=== PATIENT | male | born 1935 | race Caucasian/White ===

== ENCOUNTER 2023-05-02 12:46 | Outpatient (OUT) | payer MEDICARE, OTHER, SELFPAY ==
--- NOTE | 2023-05-02 13:10 | CA_ITS ---
Patient: REINA JOE Exam Date: 05/02/2023 : 1935 Gender:M Ordering : [facility] Admission #: [id number] Family : DR NIRU FRANCIS D.John Order #: [id number] CLICK HERE TO VIEW EXAM ECHOCARDIOGRAM REPORT PROCEDURE: CA ECHO DOPPLER COMPLETE INDICATIONS: nonrheumatic MITRAL VALVE REGURGITATION COMPARISON: None. DESCRIPTION: COMPLETE ECHOCARDIOGRAM Real-time transthoracic echocardiography with 2D, M-mode, spectral and color flow Doppler performed. QUALITY: Technical quality was good. LEFT VENTRICLE: Moderate dilatation. Thickened septal wall. Abnormal septal motion likely due to bundle branch block/pacing. Global left ventricular systolic function is moderately decreased. LV EF: Calculated left ventricular ejection fraction is 38%. Estimated ejection fraction is 35 to 40%. DIASTOLIC: ATRIAL SEPTUM: LEFT ATRIUM: Severe dilatation. RIGHT ATRIUM: Moderate dilatation. RIGHT VENTRICLE: Normal chamber size. Normal right ventricular systolic function. Pacer wire present. TRICUSPID VALVE: Normal mobility and thickness. No stenosis with mild regurgitation. Moderate pulmonary hypertension. RVSP 48 mmHg MITRAL VALVE: Mild mitral regurgitation. 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 Mean diastolic gradient is 4 mmHg at a heart rate of 72 bpm. AORTIC VALVE: Normal trileaflet appearance. Thickened aortic valve. Normal leaflet mobility. No evidence of aortic valve stenosis. Mild to moderate aortic regurgitation. AORTIC ROOT: Normal diameter and appearance. Mild dilatation of the aortic arch measuring 3.6cm. PULMONIC VALVE: Normal thickness and mobility. No stenosis. Mild regurgitation. PERICARDIUM: No evidence of pericardial effusion. IVC: Collapses with inspirations. Normal size. PLEURA: CONCLUSION: 1. Left ventricular systolic function is moderately reduced with global hypokinesis and abnormal septal motion. LVEF is 35 to 40%. 2. Normal right ventricular systolic function. 3. Moderate to severe biatrial dilatation. 4. Mitral valve is status post ring repair with normal diastolic gradients and mild regurgitation. 5. Tricuspid valve is status post repair with no significant stenosis and mild regurgitation. 6. Mild to moderate aortic regurgitation. 7. Mild pulmonic regurgitation. 8. Moderately elevated right-sided pressures. 9. No pericardial effusion. Adult Echocardiography Procedure Report Left Ventricle LVEDD (3.7 - 5.6 cm): 6.72 cm LVESD (2.2 - 4.0 cm): 5.13 cm LVIVS thickness (0.6 - 1.2 cm): 1.41 cm LVPW thickness (0.5 - 1.0 cm): 0.99 cm e': 0.08 m/s E - e': 16.98 LVOT Max Gradient: 2.70 mm[Hg] LVOT Area (cm2): 0.82 m/s Peak Velocity (LVOT): 0.82 m/s Mean Velocity (LVOT): 0.60 m/s LVOT Diameter 2.85 cm Left Ventricular Ejection Fraction: 37.66 % Left Atrium LA Volume Index (2D A2C): 99.97 ml/m2 Left Atrium Systolic Dimension: 5.89 cm Mitral Valve Mitral Valve E-Wave Peak Velocity: 1.32 m/s Right Ventricle RV Internal Diastolic Dimension: 3.46 cm Aorta AO Root Diam: 3.61 cm Ascending Ao Diam: 3.64 cm Aortic Valve AoV Area ([place]): 3.67 cm2, 3.67 cm2 AoV Area (VTI): 4.31 cm2, 4.31 cm2 Deceleration [place]: 1.72 m/s2 Pressure Half-Time: 535.95 ms Peak Velocity(Antegrade Flow): 1.43 m/s Peak Gradient(Antegrade Flow): 8.16 mm[Hg] Mean Velocity(Antegrade Flow): 0.99 m/s Mean Gradient(Antegrade Flow): 4.35 mm[Hg] Velocity Time Integral: 26.60 cm Tricuspid Valve Peak Velocity (Regurgitant Flow): 2.93 m/s, 3.34 m/s, 2.67 m/s Pulmonic Valve Mean Gradient: 1.38 mm[Hg], 1.64 mm[Hg], 1.49 mm[Hg], 1.59 mm[Hg] Mean Velocity: 0.57 m/s, 0.60 m/s, 0.58 m/s, 0.60 m/s Peak Velocity: 0.83 m/s Peak Gradient: 2.13 mm[Hg], 2.94 mm[Hg], 2.94 mm[Hg], 2.94 mm[Hg] Right Atrium Right Atrium Systolic Pressure: 69.76 ml, 69.76 ml Dictated by: Davion Orosco M.D. on 05/03/2023 at 11:27 Approved by: Davion Orosco M.D. on 05/03/2023 at 11:38
== END 2023-05-02 12:47 ==
LOC: CARD 12:51
PROVIDERS: PCP Internal Medicine; Visit Provider Nurse Practitioner Family
DX: I34.0 Nonrheumatic mitral (valve) insufficiency (principal); I07.1 Rheumatic tricuspid insufficiency; I35.1 Nonrheumatic aortic (valve) insufficiency; I37.1 Nonrheumatic pulmonary valve insufficiency
CPT/HCPCS: 93306

== ENCOUNTER 2023-08-03 11:34 | Outpatient (REF) | payer MEDICARE, OTHER, SELFPAY ==
[2023-08-03 12:39] LABS: SARS-CoV-2 Ag NEGATIVE (NEGATIVE)
[2023-08-03 16:09] LABS: SARS-CoV-2 NAA NOT DETECTED (NOT DETECTE)
== END 2023-08-03 11:35 | disposition home or self-care (01) ==
LOC: LAB 11:34
PROVIDERS: PCP Internal Medicine; Visit Provider Internal Medicine
DX: Z20.822 Contact with and (suspected) exposure to COVID-19 (principal)
CPT/HCPCS: 87635; 87811; U0003

== ENCOUNTER 2023-09-05 07:25 | Outpatient (OUT) | payer MEDICARE, OTHER, SELFPAY ==
[2023-09-05 07:48] LABS: Basophils Percent Auto 0.4 % (0.2-2.0); Eosinophils Absolute Auto 0.1 10^3/uL (0.0-0.7); Eosinophils Percent Auto 1.9 % (0.9-7.0); Hematocrit 35.4 % (42.0-54.0); Hemoglobin 11.7 g/dL (14.0-18.0); Immature Granulocytes Abs Auto 0.02 10^3/uL (0.00-0.03); Immature Granulocytes Pct Auto 0.4 % (0.0-0.5); Lymphocytes Absolute Auto 1.4 10^3/uL (1.2-3.8); Lymphocytes Percent Auto 25.8 % (20.5-60.0); Mean Corpuscular HGB Conc 33.1 g/dL (29.9-35.2); Mean Corpuscular Hemoglobin 34.5 pg (25.9-34.0); Mean Corpuscular Volume 104.4 fL (80.0-94.0); Mean Platelet Volume 10.8 fL (9.5-13.5); Monocytes Absolute Auto 0.9 10^3/uL (0.3-0.8); Monocytes Percent Auto 16.3 % (1.7-12.0); Neutrophils Percent Auto 55.2 % (43.0-75.0); Platelet Count 119 10^3/uL (150-450); Red Blood Count 3.39 10^6/uL (4.70-6.10); Red Cell Distribution Width 14.4 % (11.0-15.0); White Blood Count 5.4 10^3/uL (4.0-11.0)
[2023-09-05 08:10] LABS: Anion Gap 11.9; BUN Creatinine Ratio 21.9; Carbon Dioxide 28.4 mmol/L (21.0-32.0); Chloride 104 mmol/L (98-107); Estimated GFR (African America 53 (>=60); Estimated GFR (Non-African Ame 44 (>=60); Glucose 91 mg/dL (74-106); Potassium 4.3 mmol/L (3.5-5.1); Sodium 140 mmol/L (136-145)
[2023-09-05 08:49] LABS: Prostate Specific Antigen Scrn <0.13 ng/mL (<=4.00)
[2023-09-05 09:09] LABS: Digoxin 0.8 ng/mL (0.9-2.0)
== END 2023-09-05 07:26 | disposition home or self-care (01) ==
LOC: LAB 07:28
PROVIDERS: PCP Internal Medicine; Visit Provider Internal Medicine
DX: Z79.899 Other long term (current) drug therapy (principal); I10 Essential (primary) hypertension; I42.0 Dilated cardiomyopathy; Z85.46 Personal history of malignant neoplasm of prostate; Z12.5 Encounter for screening for malignant neoplasm of prostate
CPT/HCPCS: 36415; 80048; 80162; 83880; 85025; G0103

== ENCOUNTER 2023-11-15 11:28 | Inpatient (IN) | payer MEDICARE, OTHER, SELFPAY ==
[2023-11-15] VITALS (38 sets, daily range): BP systolic 90–119; BP diastolic 41–80; PULSE 60–98; RESP 16–32; TEMP 35.9–37.1; O2SAT 81–99; BMI 28.8
--- NOTE | 2023-11-15 11:48 | ECG_ITS ---
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
--- NOTE | 2023-11-15 11:48 | XR_ITS ---
The [place] [id number] Patient Name: REINA JOE MRN: [id number] date: 1935 Sex: M Assigned Patient Location: ER Current Patient Location: ER Accession/Order Number: [id number] Exam Date: 11/15/2023 12:05 Report Date: 11/15/2023 13:07 At the request of: ADITI QUINONES Procedure: XR chest 1V EXAMINATION: XR chest 1V HISTORY: sob COMPARISON: 08/03/2022 TECHNIQUE: AP portable FINDINGS: LUNGS: No significant pulmonary parenchymal abnormalities. VASCULATURE: Mildly increased pulmonary vasculature. PLEURA: No pneumothorax, effusion, or pleural thickening. CARDIAC: Mild stable cardiomegaly. MEDIASTINUM: No visible mass or adenopathy. Left bipolar pacemaker. Median sternotomy wires BONES: No fracture or visible bone lesion. OTHER: Negative. XR/XR chest 1V IMPRESSION: Pulmonary vascular congestion Electronically authenticated by: MARS MATA Date: 11/15/2023 13:07
--- NOTE | 2023-11-15 11:52 | ED_ITS ---
HPI - General Adult General Chief complaint: Shortness of Breath/Dyspnea Stated complaint: SHORTNESS OF BREATH Time Seen by Provider: 11/15/23 11:51 Source: patient Mode of arrival: ambulance Limitations: no limitations History of Present Illness HPI narrative: Patient is a 88-year-old male who is presenting to the Emergency Room with chief complaint of shortness of breath for the past 2 days. Patient stated he was taking a shower yesterday, started becoming short of breath, and is progressively worsened until today. Patient does not drive. There is a friend from [place] picked him up Brought him to the Emergency Room for evaluation. Patient does not wear action at home. Patient says that he's been told by his personal injury specialist is not have congestive heart failure. Patient does not have emphysema or chronic obstructive pulmonary disease. Patient has no bowel pain, nausea or vomiting. No headache. No fever or chills. Patient states he did have a more shortness of breath with exertion. Patient says he normally has fat legs but he has been having more swelling to his lower ankles and feet in the last week. Dr. conde is patient's PCP. . All systems are negative except as noted/marked. All systems reviewed and otherwise negative. . Nurses note and vital signs reviewed and patient is Hypoxic when he arrived, he is placed on 2 L of oxygen. Please see nursing notes. General: The patient appears well and in no apparent distress. Patient is resting comfortably on cart. Patient is not toxic, lethargic, or listless Skin: Warm, dry, no pallor noted. There is no rash noted. No petechiae, purpura. Patient was initially slightly cyanotic around his lips before is placed on 2 L of oxygen.. Head: Normocephalic, atraumatic Eye: Normal conjunctiva, no drainage, EOMI. PERRL Ears, Nose, Mouth, and Throat: oral mucosa is moist. Nares patent. Mouth without vesicles. Cardiovascular: Regular Rate and Rhythm, no murmur, gallop, rub Respiratory: Patient is in no distress, no accessory muscle use, lungs are clear to auscultation, no wheezing, Rhonchi. Faint crackles to bilateral lower bases and mid lung bilateral. Back: non-tender, no CVA tenderness bilaterally to percussion. No CT LS midline pain GI: soft, no tenderness to palpation, no masses appreciated. No rebound, guarding, or rigidity noted. No flank pain bilateral, No distention Musculoskeletal: Patient has full range of motion of all of the extremities, no motor, sensory, or focal neurological deficits. Nonpitting edema to bilateral lower extremities. No unilateral swelling. Neurological: A&O x3, normal speech Psychiatric: Cooperative Related Data Home Medications Medication Instructions Recorded Confirmed aspirin 81 mg tablet,delayed 81 mg PO DAILY 11/15/23 11/15/23 release (Janice Low Dose Aspirin) digoxin 125 mcg (0.125 mg) tablet 0.125 mg PO Q24H 11/15/23 11/15/23 furosemide 40 mg tablet 40 mg PO Q24H 11/15/23 11/15/23 lisinopril 2.5 mg tablet 2.5 mg PO Q24H 11/15/23 11/15/23 metoprolol tartrate 25 mg tablet 25 mg PO Q6H 11/15/23 11/15/23 oxybutynin chloride 5 mg 5 mg PO Q24H 11/15/23 11/15/23 tablet,extended release 24 hr Allergies Allergy/AdvReac Type Severity Reaction Status Date / Time No Known Drug Allergies Allergy Verified 11/15/23 11:33 PFSH PFSH Social History Smoking status: Never smoker Exam Constitutional Vital Signs, click to edit/add: Last Vital Signs Temp 97.7 F 11/15/23 11:33 Pulse 77 11/15/23 14:30 Resp 18 11/15/23 14:30 BP 115/66 11/15/23 14:30 Pulse Ox 95 11/15/23 14:30 O2 Del Method Nasal Cannula 11/15/23 12:09 O2 Flow Rate 2 11/15/23 12:09 Course Vital Signs Vital signs: Vital Signs Temperature 97.7 F 11/15/23 11:33 Pulse Rate 88 11/15/23 11:33 Respiratory Rate 24 11/15/23 11:33 Blood Pressure 92/71 11/15/23 11:33 Pulse Oximetry 84 L 11/15/23 11:33 Oxygen Delivery Method Room Air 11/15/23 11:33 Temperature 97.7 F 11/15/23 11:33 Pulse Rate 77 11/15/23 14:30 Respiratory Rate 18 11/15/23 14:30 Blood Pressure 115/66 11/15/23 14:30 Pulse Oximetry 95 11/15/23 14:30 Oxygen Delivery Method Nasal Cannula 11/15/23 12:09 Oxygen Delivery Flow Rate 2 11/15/23 12:09 Medical Decision Making MDM Narrative Medical decision making narrative: Patient chest x-ray shows pulmonary vascular congestion. Patient's BNP shows no acute findings. Patient be any creatinine are elevated slightly more than normal. Patient is given a dose of IV Lasix in the Emergency Room. Patient will be admitted to the hospital for pulmonary edema. Patient is admitted to Dr. Fiore. Dr. Fiore to chart review the patient's labs and recent echoes. Patient is not happy about being admitted to the hospital but understands admission for diuresis before the weekend. No questions at admission. Lab Data Lab results reviewed: Yes I reviewed the patient's lab results Labs: Lab Results 11/15/23 Range/Units 12:10 WBC 4.5 (4.0-11.0) 10^3/uL RBC 3.09 L (4.70-6.10) 10^6/uL Hgb 10.9 L (14.0-18.0) g/dL Hct 33.7 L (42.0-54.0) % MCV 109.1 H (80.0-94.0) fL MCH 35.3 H (25.9-34.0) pg MCHC 32.3 (29.9-35.2) g/dL RDW 14.7 (11.0-15.0) % Plt Count 94 L (150-450) 10^3/uL MPV 11.3 (9.5-13.5) fL Seg Neuts % (Manual) 73.0 Lymphocytes % (Manual) 15.0 L (20.5-60.0) % Monocytes % (Manual) 11.0 (1.7-12.0) % Eosinophils % (Manual) 2.0 (0.9-7.0) % Basophils % (Manual) 0.0 L (0.2-2.0) % Neutrophils # (Manual) 3.28 (1.4-6.5) 10^3/uL Lymphocytes # (Manual) 0.67 L (1.20-3.80) 10^3/uL Monocytes # (Manual) 0.49 (0.30-0.80) 10^3/uL Eosinophils # (Manual) 0.09 (0.00-0.70) 10^3/uL Basophils # (Manual) 0.00 (0.00-0.10) 10^3/uL Hypochromasia 1+ Macrocytosis 2+ Sodium 137 (136-145) mmol/L Potassium 4.5 (3.5-5.1) mmol/L Chloride 101 (98-107) mmol/L Carbon Dioxide 29.3 (21.0-32.0) mmol/L Anion Gap 11.2 BUN 55.0 H (7.0-18.0) mg/dL Creatinine 1.68 H (0.70-1.30) mg/dL Est GFR ( Amer) 47 L (>=60) Est GFR (Non-Af Amer) 39 L (>=60) BUN/Creatinine Ratio 32.7 Glucose 116 H (74-106) mg/dL Calcium 9.7 (8.5-10.1) mg/dL Total Bilirubin 1.4 H (0.2-1.0) mg/dL AST 13 L (15-37) U/L ALT 28 (16-63) U/L Alkaline Phosphatase 111 (46-116) U/L Troponin I High Sens 37.7 (4.0-76.1) pg/mL NT-Pro-B Natriuret Pep 2630.0 H* (<=1800.0) pg/mL Total Protein 7.6 (6.4-8.2) g/dL Albumin 3.2 L (3.4-5.0) g/dL Globulin 4.4 g/dL Albumin/Globulin Ratio 0.7 Patient has elevated BNP. Patient has chronic kidney disease, patient's. And creatinine are elevated more than usual. ECG Data Attestation: I personally reviewed and interpreted this ECG as follows: (EKG interpretation. Irregular rhythm, Ventricular paced, QTC of 513.) Discharge Plan Discharge Chief Complaint: Shortness of Breath/Dyspnea Clinical Impression: Pulmonary edema, Hypoxia Patient Disposition: Admitted As Inpatient Time of Disposition Decision: 14:29 Condition: Fair
[2023-11-15] MEDS: IPRATROPIUM/ALBUTEROL SULFATE 3 ML AMPUL.NEB IH (12:08)
[2023-11-15 12:23] LABS: Hematocrit 33.7 % (42.0-54.0); Hemoglobin 10.9 g/dL (14.0-18.0); Mean Corpuscular HGB Conc 32.3 g/dL (29.9-35.2); Mean Corpuscular Hemoglobin 35.3 pg (25.9-34.0); Mean Corpuscular Volume 109.1 fL (80.0-94.0); Mean Platelet Volume 11.3 fL (9.5-13.5); Platelet Count 94 10^3/uL (150-450); Red Blood Count 3.09 10^6/uL (4.70-6.10); Red Cell Distribution Width 14.7 % (11.0-15.0); White Blood Count 4.5 10^3/uL (4.0-11.0)
[2023-11-15 12:42] LABS: Alanine Aminotransferase 28 U/L (16-63); Albumin Globulin Ratio 0.7; Albumin Level 3.2 g/dL (3.4-5.0); Alkaline Phosphatase 111 U/L (46-116); Anion Gap 11.2; Aspartate Amino Transferase 13 U/L (15-37); BUN Creatinine Ratio 32.7; Bilirubin Total 1.4 mg/dL (0.2-1.0); Calcium 9.7 mg/dL (8.5-10.1); Carbon Dioxide 29.3 mmol/L (21.0-32.0); Chloride 101 mmol/L (98-107); Estimated GFR (African America 47 (>=60); Estimated GFR (Non-African Ame 39 (>=60); Globulin 4.4 g/dL; Glucose 116 mg/dL (74-106); Potassium 4.5 mmol/L (3.5-5.1); Sodium 137 mmol/L (136-145); Total Protein 7.6 g/dL (6.4-8.2); Troponin I High Sensitivity 37.7 pg/mL (4.0-76.1)
[2023-11-15 12:54] LABS: Eosinophils Absolute Manual 0.09 10^3/uL (0.00-0.70); Lymphocytes Absolute Manual 0.67 10^3/uL (1.20-3.80); Monocytes Absolute Manual 0.49 10^3/uL (0.30-0.80); Segmented Neut Absolute Manual 3.28 10^3/uL (1.4-6.5)
[2023-11-15 12:55] LABS: Hypochromasia 1+; Macrocytosis 2+
[2023-11-15] MEDS: FUROSEMIDE 40 MG/4 ML VIAL IVP (15:14)
[2023-11-15 15:31] LABS: Troponin I High Sensitivity 38.8 pg/mL (4.0-76.1)
--- NOTE | 2023-11-15 15:32 | P.HP_ITS ---
<Statement entered by Heriberto Fiore MD - 11/16/23 05:44> Patient seen and evaluated: agree with findings and plan of care from DOG DAY CARE ATTENDANT added concern: thrombocytopenia - need to watch anticoagulation fdvt closely. mild protein adama malnutrition - diet management This documentation has been reviewed and approved. H&P: HPI History of Present Illness Chief complaint: SHORTNESS OF BREATH Pulmonary Congestion Hypoxia Narrative: 11/15/23 1500 This is an 88-year-old patient with a past medical history as outlined below including history of mitral valve and tricuspid valve repair, permanent pacemaker placement, paroxysmal A-fib, HFrEF (LVEF 35 to 40% 05/02/2023), and hypertension who presented to the ED complaining of 2-3-day course of worsening Shortness of breath. He denies any chest pain, nausea, vomiting, or diarrhea. He notes increased peripheral edema and weight of 7 pounds in the last 3 days. Last night when he was taking a shower he noted that he was quite short of breath with minimal activity and has that persisted today presented to the ER for further evaluation. Workup in the ED revealed elevated BNP (2630), mildly worsened renal function from baseline CKD 3 AA, chest x-ray findings consistent with pulmonary vascular congestion, and significant hypoxia on arrival of 84% on room air. Serial troponins x 2 were unremarkable. He is being admitted as an inpatient to the hospitalist service for acute CHF exacerbation with acute hypoxic respiratory failure. At the time of my exam the patient is resting comfortably in bed. He is able to carry on a conversation with full sentences but does occasionally perform pursed lip breathing. He had faint rales and expiratory wheezing on exam. We expect at least a 2 midnight stay for IV push diuretic therapy, close monitoring of weight and output, and close monitoring of his renal function. Review of Systems ROS Status of ROS 10 or more systems reviewed and unremark able except as noted in history and below [facility] Medical History (Updated 11/15/23 @ 16:19 by Rosenda Ramirez NP) OAB (overactive bladder) ?N32.81 - Overactive bladder (ICD-10) Anemia ?D64.9 - Anemia, unspecified (ICD-10) HFrEF (heart failure with reduced ejection fraction) ?I50.20 - Unspecified systolic (congestive) heart failure (ICD-10) Atherosclerotic heart disease of nikolai coronary artery without angina pectoris ?I25.10 - Atherosclerotic heart disease of nikolai coronary artery without angina pectoris (ICD-10) CKD (chronic kidney disease) stage 3, GFR 30-59 ml/min ?N18.30 - Chronic kidney disease, stage 3 unspecified (ICD-10) Paroxysmal A-fib ?I48.0 - Paroxysmal atrial fibrillation (ICD-10) Retinal detachment ?H33.20 - Serous retinal detachment, unspecified eye (ICD-10) HTN (hypertension) ?I10 - Essential (primary) hypertension (ICD-10) Prostate CA ?C61 - Malignant neoplasm of prostate (ICD-10) Pacemaker ?Z95.0 - Presence of cardiac pacemaker (ICD-10) Surgical History (Updated 11/15/23 @ 15:48 by Rosenda Ramirez NP) Hx of inguinal hernia repair ?Z98.890 - Other specified postprocedural states (ICD-10) ?Z87.19 - Personal history of other diseases of the digestive system (ICD-10) History of permanent cardiac pacemaker placement ?Z95.0 - Presence of cardiac pacemaker (ICD-10) History of tricuspid valve repair ?Z98.890 - Other specified postprocedural states (ICD-10) H/O mitral valve repair ?Z98.890 - Other specified postprocedural states (ICD-10) Family History (Updated 11/15/23 @ 15:37 by Keyla Wilson) Mother Family history of CHF (congestive heart failure) Family history of hypertension Sister Family history of cancer Social History (Updated 11/15/23 @ 15:38 by Keyla Wilson) Within the past year, how often did you have a drink containing alcohol: never Score interpretation: A score less than 4 is consistent with normal alcohol consumption. Smoking status: Never smoker Non-prescribed substance use: denies use Previous occupational history: [employer] Highest level of school completed/degree received: high school graduate Are you now , , , , never or living with a partner: never In a typical week, how many times do you talk on the telephone with family, friends, or neighbors: once per week How often do you get together with friends or relatives: once per week How often do you attend hinduism or holiness services: never Do you belong to any clubs or organizations such as hinduism groups unions, fra[employer] or athletic groups, or school groups: no Total score: 0 Score interpretation: A score of less than or equal to 1 indicates the most socially isolated. Meds Home Medications and Allergies Home Medications Medication Instructions Recorded Confirmed Type aspirin 81 mg tablet,delayed 81 mg PO DAILY 11/15/23 11/15/23 History release (Janice Low Dose Aspirin) digoxin 125 mcg (0.125 mg) tablet 0.125 mg PO Q24H 11/15/23 11/15/23 History furosemide 40 mg tablet 40 mg PO Q24H 11/15/23 11/15/23 History lisinopril 2.5 mg tablet 2.5 mg PO Q24H 11/15/23 11/15/23 History metoprolol tartrate 25 mg tablet 25 mg PO Q6H 11/15/23 11/15/23 History oxybutynin chloride 5 mg 5 mg PO Q24H 11/15/23 11/15/23 History tablet,extended release 24 hr Allergies Allergy/AdvReac Type Severity Reaction Status Date / Time No Known Drug Allergies Allergy Verified 11/15/23 11:33 Exam Narrative Exam Narrative: The patient confirms he is a DNR CCA, no intubation Constitutional Vital Signs, click to edit/add: Last Vital Signs Temp 97.7 F 11/15/23 11:33 Pulse 77 11/15/23 14:30 Resp 18 11/15/23 14:30 BP 115/66 11/15/23 14:30 Pulse Ox 95 11/15/23 14:30 O2 Del Method Nasal Cannula 11/15/23 12:09 O2 Flow Rate 2 11/15/23 12:09 Common normals: no apparent distress, oriented x3, alert and well nourished General appearance: cooperative Orientation/consciousness: Yes awake [facility] Common normals: normocephalic, head/scalp atraumatic, hearing grossly normal bilaterally, external nose normal and moist oral mucous membranes Eye Common normals: PERRL, EOMs intact bilaterally and conjunctivae normal Alignment: alignment normal Eyelid: eyelids normal Sclera: sclera abnormal (mild bilat icterus) Neck & C-Spine Common normals: full ROM, supple and no JVD Chest Common normals: inspection of chest normal Chest: symmetrical chest wall rise Respiratory Common normals: normal respiratory effort, no retractions and no use of accessory muscles Effort & inspection: able to speak in complete sentences Auscultation: rales (BLL) and wheezes (EE scattered throughout) Cardio Common normals: no JVD, regular rate, regular rhythm, S1 normal heart sound, S2 normal heart sound, no gallops, no clicks, no rub and peripheral pulses 2+ throughout GI Common normals: Normal to inspection, nondistended, normoactive bowel sounds present, soft to palpation, non-tender, no hepatosplenomegaly, no masses and no bruits Bladder/kidney exam: bladder normal to palpation Back & Pelvis Common normals: thoracic and lumbar spine normal to inspection Extremity Common normals: normal capillary refill General: edema (2-3+ pitting); no clubbing and no cyanosis Neuro Génesis Coma Scale: GCS not evaluated Common normals: CN's II-XII intact bilaterally, moves all extremities, no focal motor deficits and no sensory deficits noted Speech: speech normal Motor exam: strength 5/5 throughout Psych Common normals: mental status grossly normal, thought process normal, affect nor mal and activity/motor behavior normal Results Labs Labs: Short CBC 11/15/23 Range/Units 12:10 WBC 4.5 (4.0-11.0) 10^3/uL Hgb 10.9 L (14.0-18.0) g/dL Hct 33.7 L (42.0-54.0) % Plt Count 94 L (150-450) 10^3/uL BMP 11/15/23 12:10 Sodium 137 Potassium 4.5 Chloride 101 Carbon Dioxide 29.3 BUN 55.0 H Creatinine 1.68 H Glucose 116 H Calcium 9.7 Liver Function 11/15/23 Range/Units 12:10 Total Bilirubin 1.4 H (0.2-1.0) mg/dL AST 13 L (15-37) U/L ALT 28 (16-63) U/L Alkaline Phosphatase 111 (46-116) U/L Albumin 3.2 L (3.4-5.0) g/dL Pulse Oximetry Attestation: I have reviewed the pertinent pulse oximetry results. Imaging Chest x-ray: Attestation: I have reviewed the pertinent imaging results. Radiologist's impression: IMPRESSION: Pulmonary vascular congestion Assessment and Plan Assessment and Plan (1) Acute exacerbation of CHF (congestive heart failure): Assessment and Plan: ACUTE * Adm inpatient * Greater than 2 midnight stay expected for IVP diuretic administration and close monitoring of labs and urine output * IVP Lasix 40 mg BID * Daily weights * Strict I&O * Daily BNP to monitor trend * BNP 2630 in ED today * Daily CMP to monitor renal function w/ high dose diuretics in setting of CKD3a/b at baseline * Repeat 2D Echo * Last Echo 05/02/23 - LVEF 35-40% w/ global hypokinesis, MV ring repair, s/p tricuspid repair, Mod to Severe biatrial dilatation * Consider cardiology consult pending clinical course * See resp failure below Qualifiers: Heart failure type: systolic Qualified Code(s): I50.23 - Acute on chr onic systolic (congestive) heart failure (2) Acute respiratory failure with hypoxia: Assessment and Plan: ACUTE * O2 sat 84% on RA on arrival to the ED * 95% on 2L during exam * O2 supplementation to keep sats above 90% * Duonebs PRN for shortness of breath or wheezing * OPEP (3) Generalized weakness: Assessment and Plan: ACUTE * 2/2 acute illness * PT/OT consults for eval and treat * Consider SNF placement at discharge pending clinical course (4) CKD (chronic kidney disease) stage 3, GFR 30-59 ml/min: Assessment and Plan: CHRONIC * CKD 3a/b at baseline * Baseline labs: BUN 28-50, CR 1.43-1.56, eGFR 42-47 * Slight worsening of renal function on labs today * BUN 55, Cr 1.68, eGFR 39 * Hold home ACEi for now - BP soft w/ diuretic admin and kidney function at risk of worsening * Monitor renal function closely w/ high dose IV diuretic administration * Daily CMP Qualifiers: Chronic kidney disease stage 3 subtype: unspecified whether 3a or 3b Qualified Code(s): N18.30 - Chronic kidney disease, stage 3 unspecified (5) Paroxysmal A-fib: Assessment and Plan: CHRONIC * HR well controlled - Vpaced rhythm on EKG * Continue home metoprolol and digoxin for rate control * Pt not on anticoagulation at baseline * Possibly had maze procedure during valve repair surgery per pt report but he is not sure * Tele monitoring (6) HTN (hypertension): Assessment and Plan: CHRONIC * Continue home metoprolol - hold for SBP < 100 or HR < 55 * Hold home ACEi for now Qualifiers: Hypertension type: primary hypertension Qualified Code(s): I10 - Essential (primary) hypertension (7) Anemia: Assessment and Plan: CHRONIC * 2/2 CKD (anemia of chronic disease) * Check FOB to r/o slow GI bleeding * Not on anticoagulation * Continue home low dose ASA for now * CBC daily Qualifiers: Anemia type: due to chronic kidney disease Chronic kidney disease stage: stage 3 (moderate) Chronic kidney disease stage 3 subtype: unspecified whether 3a or 3b Qualified Code(s): N18.30 - Chronic kidney disease, stage 3 unspecified; D63.1 - Anemia in chronic kidney disease (8) OAB (overactive bladder): Assessment and Plan: CHRONIC * Continue home oxybutynin for now * Monitor for urinary retention - low threshold to hold
--- NOTE | 2023-11-15 19:51 | RESP.RT ---
No PRN breathing tx given. Pt denies need. No respiratory distress noted.
[2023-11-15] MEDS: METOPROLOL TARTRATE 25 MG TABLET PO (20:17)
[2023-11-15] MEDS: HEPARIN SODIUM (PORCINE) 5,000 UNIT/ML VIAL 5000 UNIT SUBQ (20:17)
[2023-11-16] VITALS (19 sets, daily range): BP systolic 94–117; BP diastolic 51–70; PULSE 66–83; RESP 16–20; TEMP 36.2–36.6; O2SAT 91–96
--- NOTE | 2023-11-16 03:58 | RESP.RT ---
decreased down to 1L
--- NOTE | 2023-11-16 04:00 | XR_ITS ---
The [address] [address] Patient Name: REINA JOE MRN: [id number] date: 1935 Sex: M Assigned Patient Location: Current Patient Location: Accession/Order Number: [id number] Exam Date: 11/16/2023 06:20 Report Date: 11/16/2023 06:53 At the request of: JORDIN GARY Procedure: XR chest 1V PROCEDURE: XR chest 1V DATE: 11/16/2023 5:20 AM MANAGER REQUIREMENTS COMPARISONS: 11/15/2023 CLINICAL INDICATION: 88 years Male SOB FINDINGS: The heart is prominent and stable. Poststernotomy changes are again identified. There is diffuse increased interstitial markings throughout all lung andres, slightly more prominent than previous exam. This may represent interstitial fluid due to congestion. It appears there is a small amount of developing right pleural fluid. There is no evidence of left pleural effusion. There is no evidence of pneumothorax. Electronic cardiac device is in stable position. XR/XR chest 1V IMPRESSION: Findings most consistent with some pulmonary vascular congestion and interstitial fluid. This congestion appears to have progressed slightly since previous day. Electronically authenticated by: BRIAN MANE Date: 11/16/2023 06:53
[2023-11-16 05:41] LABS: Basophils Percent Auto 0.5 % (0.2-2.0); Eosinophils Absolute Auto 0.1 10^3/uL (0.0-0.7); Eosinophils Percent Auto 1.7 % (0.9-7.0); Hematocrit 31.6 % (42.0-54.0); Immature Granulocytes Abs Auto 0.01 10^3/uL (0.00-0.03); Immature Granulocytes Pct Auto 0.2 % (0.0-0.5); Lymphocytes Absolute Auto 0.9 10^3/uL (1.2-3.8); Lymphocytes Percent Auto 22.3 % (20.5-60.0); Mean Corpuscular HGB Conc 31.6 g/dL (29.9-35.2); Mean Corpuscular Hemoglobin 34.1 pg (25.9-34.0); Mean Corpuscular Volume 107.8 fL (80.0-94.0); Mean Platelet Volume 11.3 fL (9.5-13.5); Monocytes Absolute Auto 0.6 10^3/uL (0.3-0.8); Monocytes Percent Auto 14.9 % (1.7-12.0); Neutrophils Absolute Auto 2.6 10^3/uL (1.4-6.5); Neutrophils Percent Auto 60.4 % (43.0-75.0); Platelet Count 91 10^3/uL (150-450); Red Blood Count 2.93 10^6/uL (4.70-6.10); Red Cell Distribution Width 14.7 % (11.0-15.0); White Blood Count 4.2 10^3/uL (4.0-11.0)
[2023-11-16] MEDS: FUROSEMIDE 40 MG/4 ML VIAL IVP ×2 (06:18→09:19)
[2023-11-16 06:19] LABS: Alanine Aminotransferase 26 U/L (16-63); Albumin Globulin Ratio 0.7; Albumin Level 2.9 g/dL (3.4-5.0); Alkaline Phosphatase 109 U/L (46-116); Anion Gap 11.8; Aspartate Amino Transferase 10 U/L (15-37); BUN Creatinine Ratio 32.7; Bilirubin Total 1.4 mg/dL (0.2-1.0); Calcium 9.1 mg/dL (8.5-10.1); Carbon Dioxide 27.5 mmol/L (21.0-32.0); Chloride 101 mmol/L (98-107); Estimated GFR (African America 51 (>=60); Estimated GFR (Non-African Ame 42 (>=60); Glucose 89 mg/dL (74-106); Potassium 4.3 mmol/L (3.5-5.1); Sodium 136 mmol/L (136-145); Total Protein 6.9 g/dL (6.4-8.2)
--- NOTE | 2023-11-16 07:34 | CA_ITS ---
Patient Name: REINA JOE MR#: [id number] : 1935 Exam Date: 11/16/2023 Ordering Doctor: JORDIN GARY ECHOCARDIOGRAM REPORT PROCEDURE: CA ECHO LIMITED INDICATIONS: CHF exac, r/o worsening LVEF COMPARISON: None. DESCRIPTION: Limited ECHOCARDIOGRAM Real-time transthoracic echocardiography with 2D and M-mode performed. QUALITY: Technical quality was good. LEFT VENTRICLE: Moderate dilatation. Thickened septal wall. LV EF: Global left ventricular systolic function is moderately decreased. Visual estimation of left ventricular ejection fraction is unchanged from previous exam of 05/02/23 at 35-40%. Abnormal septal motion; may be related to underlying paced rhythm. D-shaped septum consistent with right ventricular pressure and/or volume overload. The distal inferior wall is akinetic. LEFT ATRIUM: Severe dilatation. RIGHT ATRIUM: Moderate dilatation. RIGHT VENTRICLE: Severe dilatation. Normal right ventricular systolic function. Pacer wire present. TRICUSPID VALVE: Normal mobility and thickness. Moderate tricuspid regurgitation. Moderate pulmonary hypertension. 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 AORTIC VALVE: Normal trileaflet appearance. Thickened, calcific, aortic valve. AORTIC ROOT: Mildly dilated. PULMONIC VALVE: Normal thickness and mobility. PERICARDIUM: No evidence of pericardial effusion. IVC: Collapses with inspirations. Normal size. CONCLUSION: 1. Global left ventricular systolic function is moderately reduced; visually estimated ejection fraction is 55 to 40% 2. Segmental wall motion abnormalities seen 3. The left ventricle is moderately dilated 4. Biatrial enlargement 5. The right ventricle is severely dilated with normal systolic function 6. Moderate tricuspid regurgitation 7. Moderately elevated right ventricular systolic pressure A limited echocardiogram was performed Adult Echocardiography Procedure Report Left Ventricle LVEDD (3.7 - 5.6 cm): 6.46 cm LVESD (2.2 - 4.0 cm): 5.29 cm LVIVS thickness (0.6 - 1.2 cm): 1.42 cm LVPW thickness (0.5 - 1.0 cm): 0.92 cm LVOT Diameter 2.36 cm Left Ventricular Ejection Fraction: 38.67 % Left Atrium LA Volume Index (2D A2C): 99.43 ml/m2 Left Atrium Systolic Dimension: 5.91 cm Mitral Valve Right Ventricle RV Internal Diastolic Dimension: 5.50 cm Aorta AO Root Diam: 3.87 cm Aortic Valve Tricuspid Valve Peak Velocity (Regurgitant Flow): 3.53 m/s Pulmonic Valve Right Atrium Right Atrium Systolic Pressure: 110.74 ml, 110.74 ml Dictated by: Tyron Gonzales M.D. on 11/16/2023 at 15:39 Approved by: Tyron Gonzales M.D. on 11/16/2023 at 15:44
[2023-11-16] MEDS: ASPIRIN 81 MG TABLET.DR PO (08:40)
[2023-11-16] MEDS: DIGOXIN 125 MCG TABLET PO (08:41)
[2023-11-16] MEDS: HEPARIN SODIUM (PORCINE) 5,000 UNIT/ML VIAL 5000 UNIT SUBQ ×2 (08:41→21:52)
[2023-11-16] MEDS: OXYBUTYNIN CHLORIDE 5 MG TAB XL PO (08:41)
[2023-11-16] MEDS: METOPROLOL TARTRATE 25 MG TABLET 37.5 MG PO (08:41)
--- OUTSIDE RECORDS SUMMARY | 2023-11-16 10:07 | XMS_ITS | CCD ---
Author Name Unknown Address [address] [place] [address] Organization [facility] Care Team Providers Care Blockman Name Role Phone TIMO BAR Primary Care Physician [phone] MARYBETH COOPER Attending Unavailable KENNETH, MARYBETH Trivedi Attending Unavailable KENNETH, MARYBETH Trivedi Attending Unavailable PENNY, DR MARRUFO Primary Care Unavailable NADERER, DR MADISON Arriaza Admitting Unavailable NADERETyler, DR MADISON Arriaza Attending Unavailable ZIEBER, DR MILAGROS Scott Consulting Unavailable NADERER, DR MADISON Arriaza Consulting Unavailable PAY, DR PENNINGTON Consulting Unavailable KVNG, JAMES GOMEZ Consulting Unavailable BACHRACH, LINH Consulting Unavailable PENNY, DR MARRUFO Admitting Unavailable PENNY, DR MARRUFO Attending Unavailable PENNY, DR MARRUFO Primary Care Unavailable PENNY, DR MARRUFO Consulting Unavailable PENNY, DR MARRUFO Admitting Unavailable PENNY, DR MARRUFO Attending Unavailable PENNY, DR MARRUFO Primary Care Unavailable PENNY, DR MARRUFO Consulting Unavailable PENNY, DR MARRUFO Primary Care Unavailable MARIAN, DR ZACH Scott Admitting Unavailable MARIAN, DR ZACH Scott Attending Unavailable MARIAN, DR ZACH Scott Consulting Unavailable AHTRISTEN, ANA Consulting Unavailable Timo Bar Unavailable SAMSON MYLES Referring Unavailable JUAN LUIS KYLE Attending Unavailable Medications Current Medications Medication Drug Class(es) Dates Sig (Normalized) Sig (Original) Ascorbic Acid (2 sources) Vitamin C Start: 02-14-2020 Vitamin C Daily, Refills(s) 0 Start Date: 02/14/20 Status: Ordered Ocuvite (2 sources) Vitamin C Start: 02-14-2020 Ocuvite Oral, Daily, Refill(s) 0 Start Date: 02/14/20 Status: Ordered Aspirin (2 sources) Platelet Aggregation Inhibitor, Nonsteroidal Anti-inflammatory Drug Start: 12-25-2019 aspirin 81 mg, Refills(s) 0 Start Date: 12/25/19 Status: Ordered calcium citrate 950 mg oral tablet (2 sources) Start: 01-06-2022 take 1 mg by mouth twice daily calcium (as calcium citrate) 200 mg oral tablet mg tab(s), Oral, BID, Refills(s) 0 Start Date: 01/06/22 Status: Ordered DuoDERM CGF Extra Thin - (7 sources) DuoDERM CGF Extr a Thin - as directed Externally Active furosemide 40 mg oral tablet (9 sources) Loop Diuretic Start: 12-30-2019 take 1 tablet by mouth once daily Lasix 40 mg Tab See Instructions, tab(s) mg Oral Daily, Refills(s) 0 Start Date: 12/30/19 Status: Ordered lisinopril 2.5 mg oral tablet (9 sources) Angiotensin Converting Enzyme Inhibitor Start: 12-25-2019 take 2.5 mg by mouth once daily lisinopril 2.5 mg, Oral, Daily, Refills(s) 0 Start Date: 12/25/19 Status: Ordered Low-Dose Aspirin (7 sources) Low-Dose Aspirin Active melatonin 5 mg oral tablet (7 sources) take 1 tablet by mouth once daily in the evening Melatonin 5 MG 1 tablet in the evening Orally Once a day Active 24 hr metoprolol succinate 25 mg extended release oral tablet (9 sources) beta-Adrenergic Tang Start: 12-25-2019 take 1 mg by mouth once daily metoprolol 25 mg ER Tab mg tab(s), Oral, Daily, Refills(s) 0 Start Date: 12/25/19 Status: Ordered take 1 tablet by jon th in the morning, then take 1 tablet by mouth in the evening Metoprolol Tartrate 25 mg TAKE 1 & 1/2 (ONE AND ONE-HALF) TABLETS BY MOUTH IN THE MORNING then TAKE 1 TABLET BY MOUTH IN THE EVENING for 90 Active 24 hr oxybutynin chloride 5 mg extended release oral tablet (9 sources) Cholinergic Muscarinic Antagonist Start: 03-16-2022 take 1 tablet by mouth once daily oxybutynin 5 mg ER Tab 5 mg = 1 tab(s), Oral, Daily, # 90 tab(s), Refills(s) 3, Pharmacy: [id number], 183, cm, 09/21/22 12:19:00 EDT, Height/Length Dosing, 99.3, kg, 09/21/22 12:19:00 EDT, Weight Dosing Start Date: 09/21/22 Status: Ordered potassium chloride 20 meq powder for oral solution (7 sources) take 1 dose by mouth once daily at mealtime Potassium Chloride 20 MEQ 1 packet with food Orally Once a day Active Vitamin B Complex oral capsule (2 sources) Start: 02-14-2020 Vitamin B Comp dyllan oral capsule Oral, Daily, Refill(s) 0 Start Date: 02/14/20 Status: Ordered Completed/Discontinued Medications Medication Drug Class(es) Dates Sig (Normalized) Sig (Original) digoxin 0.125 mg oral tablet (9 sources) Cardiac Glycoside Start: 01-01-2020 take 1 tablet by mouth once daily digoxin 125 mcg (0.125 mg) Tab 125 microgram = 1 tab(s), Oral, Daily Start Date: 01/01/20 Status: Ordered Problems Problem Classification Problem Date Documented Date Episodic/Chronic Abdominal pain (2 sources) Upper abdominal pain 01-01-2020 Episodic Acute and unspecified renal failure (1 source) Acute kidney failure, unspecified; Translations: [ACUTE KIDNEY FAILURE UNSPECIFIED] Onset: 08-10-2022 Episodic Biliary tract disease (2 sources) Cholecystitis 01-01-2020 Episodic Cancer of prostate (2 sources) Malignant tumor of prostate 12-30-2019 Chronic Cancer of prostate (15 sources) Personal history of malignant neoplasm of prostate; Translations: [History of malignant neoplasm of prostate] Onset: 03-16-2022 Episodic Cardiac dysrhythmias (12 sources) Atrial fibrillation; Translations: [Paroxysmal atrial fibrillation] 01-01-2020 Chronic Chronic kidney disease (1 source) Chronic kidney disease; Translations: [CHRONIC KIDNEY DISEASE STAGE 3A] Onset: 08-10-2022 Chronic ulcer of skin (7 sources) Pressure ulcer of right buttock, stage 1; Translations: [Pressure injury of right buttock stage I (disorder)] Chronic Conduction disorders (20 sources) Second degree atrioventricular block; 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] Onset: 08-10-2022 01-01-2020 Chronic Congestive heart failure; nonhypertensive (16 sources) Chronic systolic heart failure; Translations: [Chronic systolic (congestive) heart failure] Chronic Disorders of lipid metabolism (2 sources) Hyperlipidemia 12-25-2019 Chronic E Codes: Fall (1 source) Other fall on same level, initial encounter; Translations: [OTHER FALL ON SAME LEVEL INITIAL] Onset: 08-16-2022 Episodic Essential hypertension (20 sources) Hypertensive disorder; Translations: [Essential (primary) hypertension] Onset: 07-12-2022 12-25-2019 Chronic Fluid and electrolyte disorders (2 sources) Hyperkalemia; Translations: [Hypo-osmolality and hyponatremia] Onset: 08-10-2022 Episodic Genitourinary symptoms and ill-defined conditions (6 sources) Urge incontinence; Translations: [Post-micturition incontinence ] Onset: 03-16-2022 Chronic Genitourinary symptoms and ill-defined conditions (11 sources) Rhys hematuria; Translations: [Increased frequency of urination] Onset: 08-14-2022 04-13-2020 Episodic Gout and other crystal arthropathies (3 sources) Primary gout; 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, 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 Heart valve disorders (11 sources) Aortic valve regurgitation; Translations: [Mitral valve regurgitation] 01-01-2020 Chronic Hyperplasia of prostate (9 sources) Benign prostatic hyperplasia; Translations: [Lower urinary tract symptoms due to benign prostatic hypertrophy] 02-14-2020 Chronic Hypertension with complications and secondary hypertension (1 source) Hypertensive chronic kidney disease with stage 1 through stage 4 chronic kidney disease, or unspecified chronic kidney disease; Translations: [HTN CKD W/STAGE 1-4 CKD/UNS CKD] Onset: 08-10-2022 Chronic Malaise and fatigue (1 source) Weakness; Translations: [WEAKNESS] Onset: 08-10-2022 Episodic Other aftercare (6 sources) Other detention (current) drug therapy; Translations: [OTH RETIREMENT CURRENT DRUG THERAPY] Onset: 07-08-2022 Episodic Other aftercare (1 source) snf (current) use of aspirin; Translations: [INVESTMENT ADVISOR CURRENT USE OF ASPIRIN] Onset: 08-16-2022 Episodic Other and ill-defined heart disease (2 sources) Left ventricular hypertrophy 01-01-2020 Chronic Other diseases of veins and lymphatics (8 sources) Peripheral venous insufficiency; Translations: [Venous insufficiency (chronic) (peripheral)] 01-01-2020 Episodic Other diseases of veins and lymphatics (4 sources) Venous insufficiency (chronic) (peripheral); Translations: [Chronic venous insufficiency] Episodic Other male genital disorders (2 sources) Testicular mass 12-30-2019 Episodic Other non-traumatic joint disorders (1 source) Pain in right knee; Translations: [PAIN IN RIGHT KNEE] Onset: 08-16-2022 Episodic Other non-traumatic joint disorders (1 source) Pain in left knee; Translations: [PAIN IN LEFT KNEE] Onset: 08-16-2022 Episodic Other screening for suspected conditions (not mental disorders or infectious disease) (2 sources) Other specified abnormal findings of blood chemistry; Translations: [Encounter for screening for malignant neoplasm of prostate] Onset: 07-12-2022 Episodic Other upper respiratory infections (3 sources) Acute pharyngitis, unspecified; Translations: [ACUTE PHARYNGITIS UNSPECIFIED] Onset: 08-03-2022 Episodic Sonya-; endo-; and myocarditis; cardiomyopathy (except that caused by tuberculosis or sexually transmitted disease) (11 sources) Dilated cardiomyopathy; 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] Onset: 07-12-2022 Chronic Pulmonary heart disease (7 sources) 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 disease; Translations: [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 disease] Chronic Superficial injury; contusion (2 sources) Abrasion, left knee, initial encounter; Translations: [Abrasion, right knee, initial encounter] Onset: 08-16-2022 Episodic Unclassified (2 sources) Drug therapy finding 04-13-2020 Unclassified (2 sources) Patient encounter status 01-01-2020 Unclassified (2 sources) Establish Care; Translations: [Establish Care] Onset: 04-17-2023 Urinary tract infections (3 sources) Urinary tract infectious disease; Translations: [Urinary tract infection, site not specified] Onset: 08-16-2022 02-14-2020 Episodic Viral infection (1 source) COVID-19; Translations: [COVID-19] Onset: 08-10-2022 Results Test Name Value Interpretation Reference Range Facility Office Visiton 04-17-2023 Follow-up visit [id number] Samson Joe 1935 M Date Provider Department Center 04/17/2023 Stephane-JUAN LUIS KYLE CARD [facility] No family history on file Level of Service:38870 [place] OFFICE/OUTPATIENT NEW MODERATE MDM 45-59 MINUTES Reason for Visit and Comments: Establish Care [42] Normal [facility] Ambulatory Visit Summaryon 1 Ambulatory Visit Summary SAMSON JOE :1935 Visit Date:09/21/2022 Ambulatory Visit Instructions Your Diagnosis Urge incontinence History of prostate cancer Tests Performed Urnls Dip Stick Auto w/o Microscopy POC 54411 Your Care Team Attending Physician - MARYBETH COOPER PA-C Primary Care Physician - TIMO BAR DO This Is Your Medications List oxybutynin (oxybutynin 5 mg ER Tab) Contact prescribing physician if questions or concerns ascorbic acid (Vitamin C) aspirin calcium citrate (calcium (as calcium citrate) 200 mg oral tablet) digoxin (digoxin 125 mcg (0.125 mg) Tab) furosemide (Lasix 40 mg Tab) lisinopril metoprolol (metoprolol 25 mg ER Tab) multivitamin (Vitamin B Complex oral capsule) multivitamin with minerals (Ocuvite) Procedures Performed Cholecystectomy (07/28/2021), Colonoscopy (11/27/2006), Implantation of radioactive seed into prostate (2004), Repair of right inguinal hernia, Transrectal biopsy of prostate using ultrasound (US) guidance. Discharge Vitals Heart Rate (Peripheral) 80 Respiratory Rate 16 Blood Pressure 111/58 Height 183 cm Height 72 in Weight 99.3 kg Weight 218.46 lb BMI 29.65 What to do next You Need to Schedule the Following Appointments Follow Up with MARYBETH COOPER PA-C, URL When: Only if needed Where: [address] [place] [address] [phone] Medications What How Much When Instructions Unchanged oxybutynin (oxybutynin 5 mg ER Tab) 1 Tablets By Mouth Every day Pickup at [facility] Unchanged ascorbic acid (Vitamin C) Every day Contact prescribing physician if questions or concerns Unchanged aspirin 81 Milligram Contact prescribing physician if questions or concerns Unchanged calcium citrate (calcium (as calcium citrate) 200 mg oral tablet) By Mouth 2 times a day Contact prescribing physician if questions or concerns Unchanged digoxin (digoxin 125 mcg (0.125 mg) Tab) 1 Tablets By Mouth Every day Contact prescribing physician if questions or concerns Unchanged furosemide (Lasix 40 mg Tab) See instructions tab(s) mg Oral Daily Contact prescribing physician if questions or concerns Unchanged lisinopril 2.5 Milligram By Mouth Every day Contact prescribing physician if questions or concerns Unchanged metoprolol (metoprolol 25 mg ER Tab) By Mouth Every day Contact prescribing physician if questions or concerns Unchanged multivitamin (Vitamin B Complex oral capsule) By Mouth Every day Contact prescribing physician if questions or concerns Unchanged multivitamin with minerals (Ocuvite) By Mouth Every day Contact prescribing physician if questions or concerns Pharmacy Information [id number]: [address] [place] [id number] [phone] Test Results Urnls Dip Stick Auto w/o Microscopy POC 17287 (09/21/2022) Bilirubin Urine Dipstick - Negative Blood Urine Dipstick - Negative Glucose Urine Dipstick - Negative Ketones Urine Dipstick - Negative Leukocytes Urine Dipstick - Negative Nitrite Urine Dipstick - Negative Protein Urine Dipstick - Negative Specific [place] Urine Dipstick - 1.015 Urine Appearance Urine Dipstick - Clear Urine Color Urine Dipstick - Yellow Urobilinogen Urine Dipstick - Normal 0.2-1 EU/dl pH Urine Dipstick - 6.5 Allergies No Known Allergies Problems Ongoing - Any problem that you are currently receiving treatment for. 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 Aortic valve insufficiency Atrial fibrillation Chronic venous insufficiency Left ventricular hypertrophy Mitral valve regurgitation Prostate cancer Second degree heart block Education Materials Prostate Cancer The prostate is a walnut-sized gland that is involved in the production of semen. It is located below a man's bladder, in front of the rectum. Prostate cancer is the abnormal growth of cells in the prostate gland. What are the causes? The exact cause of this condition is not known. What increases the risk? This condition is more likely to develop in men who: ? Are older than age 65. ? Are -Malian. ? Are obese. ? Have a family history of prostate cancer. ? Have a family history of breast cancer. What are the signs or symptoms? Symptoms of this condition include: ? A need to urinate often. ? Weak or interrupted flow of urine. ? Trouble starting or stopping urination. ? Inability to urinate. ? Pain or burning during urination (more content not included)... Normal [facility] Ambulatory Visit Summary SAMSON JOE :1935 Visit Date:09/21/2022 Ambulatory Visit Instructions Your Diagnosis Urge incontinence History of prostate cancer Tests Performed Urnls Dip Stick Auto w/o Microscopy POC 01005 Your Care Team Attending Physician - MARYBETH COOPER PA-C Primary Care Physician - TIMO BAR DO This Is Your Medications List oxybutynin (oxybutynin 5 mg ER Tab) Contact prescribing physician if questions or concerns ascorbic acid (Vitamin C) aspirin calcium citrate (calcium (as calcium citrate) 200 mg oral tablet) digoxin (digoxin 125 mcg (0.125 mg) Tab) furosemide (Lasix 40 mg Tab) lisinopril metoprolol (metoprolol 25 mg ER Tab) multivitamin (Vitamin B Complex oral capsule) multivitamin with minerals (Ocuvite) Procedures Performed Cholecystectomy (07/28/2021), Colonoscopy (11/27/2006), Implantation of radioactive seed into prostate (2004), Repair of right inguinal hernia, Transrectal biopsy of prostate using ultrasound (US) guidance. Discharge Vitals Heart Rate (Peripheral) 80 Respiratory Rate 16 Blood Pressure 111/58 Height 183 cm Height 72 in Weight 99.3 kg Weight 218.46 lb BMI 29.65 What to do next You Need to Schedule the Following Appointments Follow Up with MARYBETH COOPER PA-C, URL When: Only if needed Where: [address] [facility] [place] [address] [phone] Medications What How Much When Instructions Unchanged oxybutynin (oxybutynin 5 mg ER Tab) 1 Tablets By Mouth Every day Unchanged ascorbic acid (Vitamin C) Every day Contact prescribing physician if questions or concerns Unchanged aspirin 81 Milligram Contact prescribing physician if questions or concerns Unchanged calcium citrate (calcium (as calcium citrate) 200 mg oral tablet) By Mouth 2 times a day Contact prescribing physician if questions or concerns Unchanged digoxin (digoxin 125 mcg (0.125 mg) Tab) 1 Tablets By Mouth Every day Contact prescribing physician if questions or concerns Unchanged furosemide (Lasix 40 mg Tab) See instructions tab(s) mg Oral Daily Contact prescribing physician if questions or concerns Unchanged lisinopril 2.5 Milligram By Mouth Every day Contact prescribing physician if questions or concerns Unchanged metoprolol (metoprolol 25 mg ER Tab) By Mouth Every day Contact prescribing physician if questions or concerns Unchanged multivitamin (Vitamin B Complex oral capsule) By Mouth Every day Contact prescribing physician if questions or concerns Unchanged multivitamin with minerals (Ocuvite) By Mouth Every day Contact prescribing physician if questions or concerns Test Results Urnls Dip Stick Auto w/o Microscopy POC 87581 (09/21/2022) Bilirubin Urine Dipstick - Negative Blood Urine Dipstick - Negative Glucose Urine Dipstick - Negative Ketones Urine Dipstick - Negative Leukocytes Urine Dipstick - Negative Nitrite Urine Dipstick - Negative Protein Urine Dipstick - Negative Specific [place] Urine Dipstick - 1.015 Urine Appearance Urine Dipstick - Clear Urine Color Urine Dipstick - Yellow Urobilinogen Urine Dipstick - Normal 0.2-1 EU/dl pH Urine Dipstick - 6.5 Allergies No Known Allergies Problems Ongoing - Any problem that you are currently receiving treatment for. 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 Aortic valve insufficiency Atrial fibrillation Chronic venous insufficiency Left ventricular hypertrophy Mitral valve regurgitation Prostate cancer Second degree heart block Education Materials Prostate Cancer The prostate is a walnut-sized gland that is involved in the production of semen. It is located below a man's bladder, in front of the rectum. Prostate cancer is the abnormal growth of cells in the prostate gland. What are the causes? The exact cause of this condition is not known. What increases the risk? This condition is more likely to develop in men who: ? Are older than age 65. ? Are -Malian. ? Are obese. ? Have a family history of prostate cancer. ? Have a family history of breast cancer. What are the signs or symptoms? Symptoms of this condition include: ? A need to urinate often. ? Weak or interrupted flow of urine. ? Trouble starting or stopping urination. ? Inability to urinate. ? Pain or burning during urination. ? Painful ejaculation. ? Blood in urine or semen. ? Persistent pain or discomfort in the lower back, lower abdomen, hips, or upper thi (more content not included)... Normal [facility] Patient Educationon 10-26-20 22 Patient Education Oncology Prostate Cancer The prostate is a walnut-sized gland that is involved in the production of semen. It is located below a man's bladder, in front of the rectum. Prostate cancer is the abnormal growth of cells in the prostate gland. What are the causes? The exact cause of this condition is not known. What increases the risk? This condition is more likely to develop in men who: ? Are older than age 65. ? Are -Malian. ? Are obese. ? Have a family history of prostate cancer. ? Have a family history of breast cancer. What are the signs or symptoms? Symptoms of this condition include: ? A need to urinate often. ? Weak or interrupted flow of urine. ? Trouble starting or stopping urination. ? Inability to urinate. ? Pain or burning during urination. ? Painful ejaculation. ? Blood in urine or semen. ? Persistent pain or discomfort in the lower back, lower abdomen, hips, or upper thighs. ? Trouble getting an erection. ? Trouble emptying the bladder all the way. How is this diagnosed? This condition can be diagnosed with: ? A digital rectal exam. For this exam, a health care provider inserts a gloved finger into the rectum to feel the prostate gland. ? A blood test called a prostate-specific antigen (PSA) test. ? An imaging test called transrectal ultrasonography. ? A procedure in which a sample of tissue is taken from the prostate and examined under a microscope (prostate biopsy). Once the condition is diagnosed, tests will be done to determine how far the cancer has spread. This is called staging the cancer. Staging may involve imaging tests, such as: ? A bone scan. ? A CT scan. ? A PET scan. ? An MRI. The stages of prostate cancer are as follows: ? Stage I. At this stage, the cancer is found in the prostate only. The cancer is not visible on imaging tests and it is usually found by accident, such as during a prostate surgery. ? Stage II. At this stage, the cancer is more advanced than it is in stage I, but the cancer has not spread outside the prostate. ? Stage III. At this stage, the cancer has spread beyond the outer layer of the prostate to nearby tissues. The cancer may be found in the seminal vesicles, which are near the bladder and the prostate. ? Stage IV. At this stage, the cancer has spread other parts of the body, such as the lymph nodes, bones, bladder, rectum, liver, or lungs. How is this treated? Treatment for this condition depends on several factors, including the stage of the cancer, your age, personal preferences, and your overall health. Talk with your health care provider about treatment options that are recommended for you. Common treatments include: ? Observation for early stage prostate cancer (active surveillance). This involves having exams, blood tests, and in some cases, more biopsies. For some men, this is the only treatment needed. ? Surgery. Types of surgeries include: ? Open surgery. In this surgery, a larger incision is made to remove the prostate. ? A laparoscopic prostatectomy. This is a surgery to remove the prostate and lymph nodes through several, small incisions. It is often referred to as a minimally invasive surgery. ? A robotic prostatectomy. This is a surgery to remove the prostate and lymph nodes with the help of a robotic arm that is controlled by a computer. ? Orchiectomy. This is a surgery to remove the testicles. ? Cryosurgery. This is a surgery to freeze and destroy cancer cells. ? Radiation treatment. Types of radiation treatment include: ? External beam radiation. This type aims beams of radiation from outside the body at the prostate to destroy cancerous cells. ? Brachytherapy. This type uses radioactive needles, seeds, wires, or tubes that are implanted into the prostate gland. Like external beam radiation, brachytherapy destroys cancerous cells. An advantage is that this type of radiation limits the damage to surrounding tissue and has fewer side effects. ? High-intensity, focused ultrasonography. This treatment destroys cancer cells by delivering high-energy ultrasound waves to the cancerous cells. ? Chemotherapy medicines. This treatment kills cancer cells or stops them from multiplying. ? Hormone treatment. This treatment involves taking medicines that act on one of the male hormones (testosterone): ? By stopping your body from producing testosterone. ? By blocking testosterone from reaching cancer cells. Follow these instructions at home: ? Take [id number]-baodobm and prescription medicines only as told by your health care provider. ? Maintain a healthy diet. ? Get plenty of sleep. ? Consider joining a support group for men who have prostate cancer. Meeting with a support group may help you learn to cope with the stress of having cancer. ? Keep all follow-up visits as told by your health care provider. This is important. ? If you have to go to the hospital, notify your cancer specialis (more content not included)... Normal [facility] Urology Office/Clinic Noteon 09-21-2022 Urology Office/Clinic Note Chief Complaint 6m HPI Staff Samson is here today for a 6 month follow up. Previous DX: Urge incontinence, history of prostate cancer. S/P Implantation of radioactive seed in to prostate 2004. *Oxybutynin 5mg QD therapy. Pt is on Lasix, attributes that to his urgency, frequency and occasional incontinence. Pt states his PCP follows PSA annually. Pt denies any complaints voiding at this time. History of Present Illness staff HPI reviewed and agree. Review of Systems PHQ Score Initial Depression Screen Score: 0 no fever, chills, malaise, myalgia. no rash/lesions. no chest pain, palpitations, or SOB. no abdominal pain, nausea, vomiting. no unilateral calf swelling, redness, pain Physical Exam Vitals & Measurements HR: 80(Peripheral) RR: 16 BP: 111/58 HT: 72 in HT: 183 cm WT: 99.3 kg WT: 218.46 lb BMI: 29.65 General: nontoxic, NAD Mouth: moist mucosa Lungs: normal respiratory effort Cardio: regular rate, good distal perfusion Abdomen: nondistended, no suprapubic distention or tenderness, no CVA tenderness Neurologic: Grossly normal Skin: No rashes or suspicious lesions Assessment/Plan pt unable to void during o.v. denies gross hematuria or dysuria 1. Urge incontinence (N39.41: Urge incontinence) saw pt 01/06/22 w c/o frequency, urgency, UUI. initially he declined medication and we discussed lifestyle modifications/diet changes. called back a couple weeks later and wanted to try medication. stared oxybutynin 5mg ER once daily in January. pt has been doing a lot better. says he doesn't take it every day but most days and does find it helpful. no bothersome side effects. talked about adjusting dose to IR so he has more control with when he uses it but he doesn't want to change anything. refills provided. 2. History of prostate cancer (Z85.46: Personal history of malignant neoplasm of prostate) s/p brachytherapy in 2004. PSA remained very low. pt decided to have PCP do annual monitoring when he saw PRW March 2021. PSA done 06/2022 was <0.13 offered 1 yr f/u. pt prefers PRN. he will have his PCP refill the Oxybutynin in 1 yr. Follow-up With When Contact Information KENNETH SHEPARD, MARYBETH Trivedi, URL Only if needed [address] [place] [address] [phone] Additional Instructions: Patient Education Prostate Cancer I, Rebecca Mares personally scribed for Marybeth Cooper PA-C on 09/21/2022 12:37:29. . Documentation recorded by the scribfarooq Mares accurately reflects the services(s) I performed and decisions made by me. Authenticated by Marybeth Cooper PA-C on 09/21/2022 12:42:06. 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 Cholecystitis Gross hematuria History of prostate cancer Hyperlipidemia Hypertension snf current use of antithrombotics/antip latelets Post-void dribbling Testicular mass Urge incontinence Urinary frequency Urinary tract infection Urinary urgency Weak urinary stream Historical Aortic valve insufficiency Atrial fibrillation Chronic venous insufficiency Left ventricular hypertrophy Mitral valve regurgitation Prostate cancer Second degree heart block Procedure/Surgical History Cholecystectomy (07/28/2021), Colonoscopy (11/27/2006), Implantation of radioactive seed into prostate (2004), Repair of right inguinal hernia, Transrectal biopsy of prostate using ultrasound (US) guidance. Medications aspirin, 81 mg calcium (as calcium citrate) 200 mg oral tablet, Oral, BID digoxin 125 mcg (0.125 mg) Tab, 125 mcg= 1 tab(s), Oral, Daily Lasix 40 mg Tab, See Instructions lisinopril, 2.5 mg, Oral, Daily metoprolol 25 mg ER Tab, Oral, Daily Ocuvite, Oral, Daily oxybutynin 5 mg ER Tab, 5 mg= 1 tab(s), Oral, Daily, 3 refills Vitamin B Complex oral capsule, Oral, Daily Vitamin C, Daily Allergies No Known Allergies Social History Alcohol - Denies Alcohol Use, 01/01/2020 Substance Abuse - Denies Substance Abuse, 01/01/2020 Tobacco Never (less than 100 in lifetime) Tobacco Use:. Never Smokeless Tobacco Use:., 09/21/2022 Family History CHF (congestive heart failure): Mother. Cancer of prostate: Father. Immunizations Vaccine Date Status Comments SARSCoV2 mRNA(sgqhsveiu-vjoq-w ucros) vac 04/26/2022 Recorded SARS-CoV-2 (COVID-19) mRNA BNT-162b2 vax 09/02/2021 Recorded influenza virus vaccine, inactivated 08/18/2021 Recorded SARS-CoV-2 (COVID-19) mRNA BNT-162b2 vax 02/23/2021 Recorded SARS-CoV-2 (COVID-19) mRNA BNT-162b2 vax 02/03/2021 Recorded 2022-09-21: [id number] SARS-CoV-2 (COVID-19) mRNA BNT-162b2 vax 01/25/2021 Recorded influenza virus vaccine, inactivated 08/30/2019 Recorded influenza virus vaccine, inactivated 08/29/2018 Recorded influenza virus vaccine, inactivated 08/03/2017 Recorded influenza virus vaccine, inactivated 09/05/2016 Rec (more content not included)... Normal [facility] Comment on above: Result Comment: Elec tronically Signed By: MARYBETH COOPER PA-C\.br\Date and Time Signed: 09/21/22 13:18 EDT CBC AUTO DIFFon 09-06-2022 BASO # 0.0 103/ul Normal 0.0-0.1 [facility] Comment on above: Performed By: #### C BC #### [facility] [address] [address] [address] Kirk García Basophils/100 WBC (Bld) 0.5 % Normal 0.2-2.0 [facility] Comment on above: Performed By: #### C BC #### [facility] [address] [address] [address] Kirk García EO # 0.1 103/ul Normal 0.0-0.7 [facility] Comment on above: Performed By: #### C BC #### [facility] [address] [address] [address] Kirk García Eosinophils/100 WBC (Bld) 1.2 % Normal 0.9-7.0 [facility] Comment on above: Performed By: #### C BC #### [facility] [address] [place] [address] Dr. Kirk García Erythrocyte distribution width (RBC) [Ratio] 14.2 % Normal 11.0-15.0 [facility] Comment on above: Performed By: #### C BC #### [facility] [address] [place] [address] Dr. Kirk García Hematocrit (Bld) [Volume fraction] 35.6 % Critically low 42.0-54.0 [facility] Comment on above: Performed By: #### C BC #### [facility] [address] [place] [address] Dr. Kirk García Hemoglobin (Bld) [Mass/Vol] 11.7 g/dL Critically low 14.0-18.0 [facility] Comment on above: Performed By: #### C BC #### [facility] [address] [place] [address] Dr. Kirk García IG # 0.04 10e3/ul Critically high 0.00-0.03 [facility] Comment on above: Performed By: #### C BC #### [facility] [address] [place] [address] Dr. Kirk García IG % 0.6 % Critically high 0.0-0.5 [facility] Comment on above: Performed By: #### C BC #### [facility] [address] [place] [address] Dr. Kirk García LYMPH # 1.7 103/ul Normal 1.2-3.8 [facility] Comment on above: Performed By: #### C BC #### [facility] [address] [place] [address] Dr. Kirk García Lymphocytes/100 WBC (Bld) 25.7 % Normal 20.5-60.0 [facility] Comment on above: Performed By: #### C BC #### [facility] [address] [place] [address] Dr. Kirk García MANUAL DIFF REQ NO Normal [facility] Comment on above: Performed By: #### C BC #### [facility] [address] [place] [address] Dr. Kirk García MCH (RBC) [Entitic mass] 34.1 pg Critically high 25.9-34.0 [facility] Comment on above: Performed By: #### C BC #### [facility] [address] [place] [address] Dr. Kirk García MCHC (RBC) [Mass/Vol] 32.9 g/dL Normal 29.9-35.2 [facility] Comment on above: Performed By: #### C BC #### [facility] [address] [place] [address] Dr. Kirk García MCV (RBC) [Entitic vol] 103.8 fL Critically high 80.0-94.0 [facility] Comment on above: Performed By: #### C BC #### [facility] [address] [place] [address] Dr. Kirk García MONO # 1.1 103/ul Critically high 0.3-0.8 [facility] Comment on above: Performed By: #### C BC #### [facility] [address] [place] [address] Dr. Kirk García Monocytes/100 WBC (Bld) 17.7 % Critically high 1.7-12.0 [facility] Comment on above: Performed By: #### C BC #### [facility] [address] [place] [address] Dr. Kirk García NEUT # 3.5 103/ul Normal 1.4-6.5 [facility] Comment on above: Performed By: #### C BC #### [facility] [address] [place] [address] Dr. Kirk García Neutrophils/100 WBC (Bld) 54.3 % Normal 43.0-75.0 [facility] Comment on above: Performed By: #### C BC #### [facility] [address] [address] [address] Kirk García Platelet mean volume (Bld) [Entitic vol] 10.1 fL Normal 9.5-13.5 [facility] Comment on above: Performed By: #### C BC #### [facility] [address] [address] [address] Kirk García PLT 153 103/ul Normal 150-450 [facility] Comment on above: Performed By: #### C BC #### [facility] [address] [address] [address] Kirk García RBC 3.43 106/ul Critically low 4.70-6.10 [facility] Comment on above: Performed By: #### C BC #### [facility] [address] [address] [address] Kirk García WBC 6.5 103/ul Normal 4.0-11.0 [facility] Comment on above: Performed By: #### C BC #### [facility] [address] [address] [address] Kirk García PROF CHEM 8 (BAS METB)on Anion gap [Moles/Vol] 10.8 mmol/L Normal [facility] Comment on above: Performed By: #### B MP #### [facility] [address] [address] [address] Kirk García Calcium [Mass/Vol] 9.2 mg/dL Normal 8.5-10.1 [facility] Comment on above: Performed By: #### B MP #### [facility] [address] [address] [address] Kirk García Chloride [Moles/Vol] 101 mmol/L Normal 98-107 [facility] Comment on above: Performed By: #### B MP #### [facility] [address] [address] [address] Kirk García CO2 [Moles/Vol] 30.9 mmol/L Normal 21.0-32.0 [facility] Comment on above: Performed By: #### B MP #### [facility] [address] [address] [address] Kirk García Creatinine [Mass/Vol] 1.54 mg/dL Critically high 0.70-1.30 [facility] Comment on above: Performed By: #### B MP #### [facility] [address] [address] [address] Kirk García EGFR-AF GREENLANDIC 52 mL/min/1.73m2 Critically low >=60 [facility] Comment on above: Performed By: #### B MP #### [facility] [address] [address] [address] Kirk García EGFR-NON AF GREEN[place]IC 43 mL/min/1.73m2 Critically low >=60 [facility] Comment on above: Performed By: #### B MP #### [facility] [address] [address] [address] Kirk García Glucose [Mass/Vol] 106 mg/dL Normal 74-106 [facility] Comment on above: Performed By: #### B MP #### [facility] [address] [address] [address] Kirk García Potassium [Moles/Vol] 4.7 mmol/L Normal 3.5-5.1 [facility] Comment on above: Performed By: #### B MP #### [facility] [address] [address] [address] Kirk García Sodium [Moles/Vol] 138 mmol/L Normal 136-145 [facility] Comment on above: Performed By: #### B MP #### [facility] [address] [address] [address] Kirk García Urea nitrogen [Mass/Vol] 28.0 mg/dL Critically high 7.0-18.0 [facility] Comment on above: Performed By: #### B MP #### [facility] [address] [address] [address] Kirk García Urea nitrogen/Creatinin e [Mass ratio] 18.2 mg/mg Normal [facility] Comment on above: Performed By: #### B MP #### [facility] [address] [place] [address] Dr. Kirk García CBC W MANUAL DIFFon 08-15-20 22 ATYPICAL LYMPH # 1.62 103/ul Normal [facility] Comment on above: Performed By: #### U MICRO, ERUR #### [facility] [address] [place] [address] Dr. Kirk García ATYPICAL LYMPH % 12 % Normal [facility] Comment on above: Performed By: #### U MICRO, ERUR #### [facility] [address] [place] [address] Dr. Kirk García BAND # 0.1 103/ul Normal 0.0-0.3 [facility] Comment on above: Performed By: #### U MICRO, ERUR #### [facility] [address] [place] [address] Dr. Kirk García BAND % 1 % Normal 0-5 [facility] Comment on above: Performed By: #### U MICRO, ERUR #### [facility] [address] [place] [address] Dr. Kirk García BASOM # 0.14 103/ul Critically high 0.00-0.10 [facility] Comment on above: Performed By: #### U MICRO, ERUR #### [facility] [address] [place] [address] Dr. Kirk Gacría BASOM % 1.0 % Normal 0.2-2.0 [facility] Comment on above: Performed By: #### U MICRO, ERUR #### [facility] [address] [place] [address] Dr. Kirk García BLAST # Normal [facility] Comment on above: Performed By: #### U MICRO, ERUR #### [facility] [address] [place] [address] Dr. Kirk García BLAST % Normal [facility] Comment on above: Performed By: #### U MICRO, ERUR #### [facility] [address] [place] [address] Dr. Kirk García CORRECTED WBC Normal 4.0-11.0 [facility] Comment on above: Performed By: #### U MICRO, ERUR #### [facility] [address] [address] [address] Kirk García EOS # 0.14 103/ul Normal 0.00-0.70 [facility] Comment on above: Performed By: #### U MICRO, ERUR #### [facility] [address] [address] [address] Kirk García EOS% 1.0 % Normal 0.9-7.0 [facility] Comment on above: Performed By: #### U MICRO, ERUR #### [facility] [address] [address] [address] Kirk García HCT 40.7 % Critically low 42.0-54.0 [facility] Comment on above: Performed By: #### U MICRO, ERUR #### [facility] [address] [address] [address] Kirk García HGB 13.4 g/dl Critically low 14.0-18.0 [facility] Comment on above: Performed By: #### U MICRO, ERUR #### [facility] [address] [address] [address] Kirk García LYMPHM # 0.54 103/ul Critically low 1.20-3.80 [facility] Comment on above: Performed By: #### U MICRO, ERUR #### [facility] [address] [address] [address] Kirk Gracía LYMPHM% 4.0 % Critically low 20.5-60.0 [facility] Comment on above: Performed By: #### U MICRO, ERUR #### [facility] [address] [address] [address] Kirk García MCH 34.2 pg Critically high 25.9-34.0 [facility] Comment on above: Performed By: #### U MICRO, ERUR #### [facility] [address] [address] [address] Kirk García MCHC 32.9 g/dl Normal 29.9-35.2 [facility] Comment on above: Performed By: #### U MICRO, ERUR #### [facility] [address] [address] [address] Kirk García MCV 103.8 fL Critically high 80.0-94.0 [facility] Comment on above: Performed By: #### U MICRO, ERUR #### [facility] [address] [place] [address] Dr. Kirk García METAMYELOCYTE # Normal [facility] Comment on above: Performed By: #### U MICRO, ERUR #### [facility] [address] [place] [address] Dr. Kirk García METAMYELOCYTE % Normal [facility] Comment on above: Performed By: #### U MICRO, ERUR #### [facility] [address] [place] [address] Dr. Kirk García MONOM# 1.08 103/ul Critically high 0.30-0.80 [facility] Comment on above: Performed By: #### U MICRO, ERUR #### [facility] [address] [place] [address] Dr. Kirk García MONOM% 8.0 % Normal 1.7-12.0 [facility] Comment on above: Performed By: #### U MICRO, ERUR #### [facility] [address] [place] [address] Dr. Kirk García MPV 10.7 fL Normal 9.5-13.5 [facility] Comment on above: Performed By: #### U MICRO, ERUR #### [facility] [address] [place] [address] Dr. Kirk García MYELOCYTE # Normal [facility] Comment on above: Performed By: #### U MICRO, ERUR #### [facility] [address] [place] [address] Dr. Kirk García MYELOCYTE % Normal [facility] Comment on above: Performed By: #### U MICRO, ERUR #### [facility] [address] [place] [address] Dr. Kirk García NRBC Normal [facility] Comment on above: Performed By: #### U MICRO, ERUR #### [facility] [address] [address] [address] Kirk García PLT 140 103/ul Critically low 150-450 [facility] Comment on above: Performed By: #### U MICRO, ERUR #### [facility] [address] [address] [address] Kirk García RBC 3.92 106/ul Critically low 4.70-6.10 [facility] Comment on above: Performed By: #### U MICRO, ERUR #### [facility] [address] [address] [address] Kirk García RDW 14.0 % Normal 11.0-15.0 [facility] Comment on above: Performed By: #### U MICRO, ERUR #### [facility] [address] [address] [address] Kirk García SEG # 9.86 103/ul Critically high 1.40-6.50 [facility] Comment on above: Performed By: #### U MICRO, ERUR #### [facility] [address] [address] [address] Kirk García SEG % 73.0 % Normal 43.0-75.0 [facility] Comment on above: Performed By: #### U MICRO, ERUR #### [facility] [address] [address] [address] Kirk García TOXIC GRANULATION 2+ Normal [facility] Comment on above: Performed By: #### U MICRO, ERUR #### [facility] [address] [address] [address] Kirk García WBC 13.5 103/ul Critically high 4.0-11.0 [facility] Comment on above: Performed By: #### U MICRO, ERUR #### [facility] [address] [address] [address] Kirk García PROF 14(COMP METB)on 022 Albumin [Mass/Vol] 3.0 g/dL Critically low 3.4-5.0 Th [facility] Comment on above: Performed By: #### C MP #### [facility] [address] [place] [address] Dr. Kirk García Albumin/Globulin [Mass ratio] 0.8 {ratio} Normal [facility] Comment on above: Performed By: #### C MP #### [facility] [address] [place] [address] Dr. Kirk García ALP [Catalytic activity/Vol] 81 U/L Normal 46-116 [facility] Comment on above: Performed By: #### C MP #### [facility] [address] [place] [address] Dr. Kirk García ALT [Catalytic activity/Vol] 50 U/L Normal 16-63 [facility] Comment on above: Performed By: #### C MP #### [facility] [address] [place] [address] Dr. Kirk García Anion gap [Moles/Vol] 8.2 mmol/L Normal [facility] Comment on above: Performed By: #### C MP #### [facility] [address] [place] [address] Dr. Kirk García AST [Catalytic activity/Vol] 14 U/L Critically low 15-37 [facility] Comment on above: Performed By: #### C MP #### [facility] [address] [place] [address] Dr. Kirk García Bilirubin [Mass/Vol] 0.9 mg/dL Normal 0.2-1.0 [facility] Comment on above: Performed By: #### C MP #### [facility] [address] [place] [address] Dr. Kirk García Calcium [Mass/Vol] 9.3 mg/dL Normal 8.5-10.1 [facility] Comment on above: Performed By: #### C MP #### [facility] [address] [place] [address] Dr. Kirk García Chloride [Moles/Vol] 100 mmol/L Normal 98-107 [facility] Comment on above: Performed By: #### C MP #### [facility] [address] [place] [address] Dr. Kirk García CO2 [Moles/Vol] 33.1 mmol/L Critically high 21.0-32.0 [facility] Comment on above: Performed By: #### C MP #### [facility] [address] [address] [address] Kirk García Creatinine [Mass/Vol] 1.56 mg/dL Critically high 0.70-1.30 [facility] Comment on above: Performed By: #### C MP #### [facility] [address] [address] [address] Kirk García EGFR-AF GREEN[place]IC 51 mL/min/1.73m2 Critically low >=60 [facility] Comment on above: Performed By: #### C MP #### [facility] [address] [address] [address] Kirk García EGFR-NON AF [place]IC 42 mL/min/1.73m2 Critically low >=60 [facility] Comment on above: Performed By: #### C MP #### [facility] [address] [address] [address] Kirk García Globulin (S) [Mass/Vol] 3.7 g/dL Normal [facility] Comment on above: Performed By: #### C MP #### [facility] [address] [address] [address] Kirk García Glucose [Mass/Vol] 107 mg/dL Critically high 74-106 [facility] Comment on above: Performed By: #### C MP #### [facility] [address] [address] [address] Kirk García Potassium [Moles/Vol] 5.3 mmol/L Critically high 3.5-5.1 [facility] Comment on above: Performed By: #### C MP #### [facility] [address] [address] [address] Kirk Garcaí Protein [Mass/Vol] 6.7 g/dL Normal 6.4-8.2 [facility] Comment on above: Performed By: #### C MP #### [facility] [address] [address] [address] Kirk García Sodium [Moles/Vol] 136 mmol/L Normal 136-145 [facility] Comment on above: Performed By: #### C MP #### [facility] [address] [place] [address] Dr. Kirk García Urea nitrogen [Mass/Vol] 50.0 mg/dL Critically high 7.0-18.0 [facility] Comment on above: Performed By: #### C MP #### [facility] [address] [place] [address] Dr. Kirk García Urea nitrogen/Creatinin e [Mass ratio] 32.1 mg/mg Normal [facility] Comment on above: Performed By: #### C MP #### [facility] [address] [place] [address] Dr. Kirk García CULTURE URINEon 08-14-2022 CULTURE URINE Culture Observations : NO GROWTH. Normal [facility] Comment on above: Performed By: #### U MICRO, ERUR #### [facility] [address] [place] [address] Dr. Kirk García ER URINE PROFILEon Bilirubin Ql (U) Negative Normal NEGATIVE [facility] Comment on above: Performed By: #### U MICRO, ERUR #### [facility] [address] [place] [address] Dr. Kirk García Clarity (U) CLEAR Normal CLEAR [facility] Comment on above: Performed By: #### U MICRO, ERUR #### [facility] [address] [place] [address] Dr. Kirk García Color (U) ORANGE Abnormal YELLOW [facility] Comment on above: Performed By: #### U MICRO, ERUR #### [facility] [address] [place] [address] Dr. Kirk García ERUAHD A micrscopic examination will be performed if indicated. Normal [facility] Comment on above: Performed By: #### U MICRO, ERUR #### [facility] [address] [place] [address] Dr. Kirk García Glucose Ql (U) Negative Normal NEGATIVE The [facility] Comment on above: Performed By: #### U MICRO, ERUR #### [facility] [address] [address] [address] Kirk García Hemoglobin Ql (U) LARGE Abnormal NEGATIVE [facility] Comment on above: Performed By: #### U MICRO, ERUR #### [facility] [address] [address] [address] Kirk García Ketones Ql (U) TRACE Abnormal NEGATIVE The [facility] Comment on above: Performed By: #### U MICRO, ERUR #### [facility] [address] [place] [address] Dr. Kirk García LEUKOCYTES MODERATE Abnormal NEGATIVE [facility] Comment on above: Performed By: #### U MICRO, ERUR #### [facility] [address] [place] [address] Dr. Kirk García Nitrite Ql (U) Negative Normal NEGATIVE The [facility] Comment on above: Performed By: #### U MICRO, ERUR #### [facility] [address] [place] [address] Dr. Kirk García pH (U) 5.5 [pH] Normal 5-9 [facility] Comment on above: Performed By: #### U MICRO, ERUR #### [facility] [address] [place] [address] Dr. Kirk García Protein (U) [Mass/Vol] 100 mg/dL Abnormal NEGATIVE/ TRACE [facility] Comment on above: Performed By: #### U MICRO, ERUR #### [facility] [address] [place] [address] Dr. Kirk García SPEC GRAVITY 1.025 Normal 1.005-<=1.025 [facility] Comment on above: Performed By: #### U MICRO, ERUR #### [facility] [address] [place] [address] Dr. Kirk García UR MICRO IND INDICATED Normal [facility] Comment on above: Performed By: #### U MICRO, ERUR #### [facility] [address] [place] [address] Dr. Kirk García Urobilinogen Qn (U) 1.0 {Ryan'U}/dL Normal 0.2 - 1.0 [facility] Comment on above: Performed By: #### U MICRO, ERUR #### [facility] [address] [place] [address] Dr. Kirk García URINE MICROSCOPIC ONLYon BACTERIA SMALL Abnormal NONE SEEN The [facility] Comment on above: Performed By: #### U MICRO, ERUR #### [facility] [address] [place] [address] Dr. Kirk García Bacteria identified Cx Nom (U) INDICATED Normal [facility] Comment on above: Performed By: #### U MICRO, ERUR #### [facility] [address] [place] [address] Dr. Kirk García CAST NONE SEEN Normal NONE SEEN The [facility] Comment on above: Performed By: #### U MICRO, ERUR #### [facility] [address] [place] [address] Dr. Kirk García Crystals LM Nom (Urine sed) NONE SEEN Normal NONE SEEN [facility] Comment on above: Performed By: #### U MICRO, ERUR #### [facility] [address] [place] [address] Dr. Kirk García Epithelial cells LM Ql (Urine sed) RARE Normal NONE SEEN /RARE [facility] Comment on above: Performed By: #### U MICRO, ERUR #### [facility] [address] [place] [address] Dr. Kirk García MUCOUS NONE SEEN Normal NONE SEEN [facility] Comment on above: Performed By: #### U MICRO, ERUR #### [facility] [address] [place] [address] Dr. Kirk García RBC 75-100 Abnormal 0-2 [facility] Comment on above: Performed By: #### U MICRO, ERUR #### [facility] [address] [place] [address] Dr. Kirk García WBC 50-75 Abnormal NONE SEEN [facility] Comment on above: Performed By: #### U MICRO, ERUR #### [facility] [address] [place] [address] Dr. Kirk García XR KNEE WILBER 4V or >on 2021 XR KNEE WILBER 4V or > EXAM: XR KNEE WILBER 4V or > HISTORY: Pain COMPARISON: None. TECHNIQUE: AP views of bilateral knees FINDINGS: No acute fracture seen. Joint alignment is normal. Mild lateral and patellofemoral joint compartment narrowing is seen bilaterally. Soft tissues appear unremarkable. No significant joint effusion is seen. IMPRESSION: No evidence for acute fracture or malalignment of bilateral knees. Mild lateral and patellofemoral compartment degenerative changes seen bilaterally. Electronically authenticated by: ANA DALAL Date: 2022-08-14 21:09 Normal [facility] CBC W MANUAL DIFFon 08-04-20 22 ATYPICAL LYMPH # Normal [facility] Comment on above: Performed By: #### C BCMAN #### [facility] [address] [place] [address] Dr. Kirk García ATYPICAL LYMPH % Normal [facility] Comment on above: Performed By: #### C BCMAN #### [facility] [address] [place] [address] Dr. Kirk García BAND # 0.0 103/ul Normal 0.0-0.3 [facility] Comment on above: Performed By: #### C BCLEILA #### [facility] [address] [place] [address] Dr. Kirk García BAND % 1 % Normal 0-5 [facility] Comment on above: Performed By: #### C BCMAN #### [facility] [address] [place] [address] Dr. Kirk García BASOM # 0.00 103/ul Normal 0.00-0.10 [facility] Comment on above: Performed By: #### C BCMAN #### [facility] [address] [place] [address] Dr. Kirk García BASOM % 0.0 % Critically low 0.2-2.0 [facility] Comment on above: Performed By: #### C BCMAN #### [facility] [address] [place] [address] Dr. Kirk García BLAST # Normal [facility] Comment on above: Performed By: #### C BCMAN #### [facility] [address] [address] [address] Kirk García BLAST % Normal [facility] Comment on above: Performed By: #### C CHRISTOPHER #### [facility] [address] [place] [address] Dr. Kirk García CORRECTED WBC Normal 4.0-11.0 [facility] Comment on above: Performed By: #### C CHRISTOPHER #### [facility] [address] [address] [address] Kirk García EOS # 0.00 103/ul Normal 0.00-0.70 [facility] Comment on above: Performed By: #### C CHRISTOPHER #### [facility] [address] [place] [address] Dr. Kirk García EOS% 0.0 % Critically low 0.9-7.0 [facility] Comment on above: Performed By: #### C CHRISTOPHER #### [facility] [address] [place] [address] Dr. Kirk García HCT 31.0 % Critically low 42.0-54.0 [facility] Comment on above: Performed By: #### C CHRISTOPHER #### [facility] [address] [place] [address] Dr. Kirk García HGB 10.5 g/dl Critically low 14.0-18.0 [facility] Comment on above: Performed By: #### C CHRISTOPHER #### [facility] [address] [place] [address] Dr. Kirk García LYMPHM # 0.31 103/ul Critically low 1.20-3.80 [facility] Comment on above: Performed By: #### C CHRISTOPHER #### [facility] [address] [place] [address] Dr. Kirk García LYMPHM% 11.0 % Critically low 20.5-60.0 [facility] Comment on above: Performed By: #### C CHRISTOPHER #### [facility] [address] [place] [address] Dr. Kirk García MCH 34.2 pg Critically high 25.9-34.0 [facility] Comment on above: Performed By: #### C CHRISTOPHER #### [facility] [address] [place] [address] Dr. Kirk García MCHC 33.9 g/dl Normal 29.9-35.2 [facility] Comment on above: Performed By: #### C CHRISTOPHER #### [facility] [address] [address] [address] Kirk García MCV 101.0 fL Critically high 80.0-94.0 [facility] Comment on above: Performed By: #### C CHRISTOPHER #### [facility] [address] [place] [address] Dr. Kirk García METAMYELOCYTE # 0.1 103/ul Normal [facility] Comment on above: Performed By: #### C CHRISTOPHER #### [facility] [address] [place] [address] Dr. Kirk García METAMYELOCYTE % 2 % Normal [facility] Comment on above: Performed By: #### C CHRISTOPHER #### [facility] [address] [place] [address] Dr. Kirk García MONOM# 0.03 103/ul Critically low 0.30-0.80 [facility] Comment on above: Performed By: #### C CHRISTOPHER #### [facility] [address] [place] [address] Dr. Kirk García MONOM% 1.0 % Critically low 1.7-12.0 [facility] Comment on above: Performed By: #### C CHRISTOPHER #### [facility] [address] [place] [address] Dr. Kirk García MPV 10.7 fL Normal 9.5-13.5 [facility] Comment on above: Performed By: #### C CHRISTOPHER #### [facility] [address] [place] [address] Dr. Kirk García MYELOCYTE # 0.0 103/ul Normal [facility] Comment on above: Performed By: #### C CHRISTOPHER #### [facility] [address] [address] [address] Kirk García MYELOCYTE % 1 % Normal [facility] Comment on above: Performed By: #### C BCLEILA #### [facility] [address] [address] [address] Kirk García NRBC Normal [facility] Comment on above: Performed By: #### C BCLEILA #### [facility] [address] [address] [address] Kirk García PLT 84 103/ul Critically low 150-450 [facility] Comment on above: Performed By: #### C CHRISTOPHER #### [facility] [address] [address] [address] Kirk García RBC 3.07 106/ul Critically low 4.70-6.10 [facility] Comment on above: Performed By: #### C CHRISTOPHER #### [facility] [address] [place] [address] Dr. Kirk García RDW 13.3 % Normal 11.0-15.0 [facility] Comment on above: Performed By: #### C BCLEILA #### [facility] [address] [address] [address] Kirk García SEG # 2.35 103/ul Normal 1.40-6.50 [facility] Comment on above: Performed By: #### C BCLEILA #### [facility] [address] [address] [address] Kirk García SEG % 84.0 % Critically high 43.0-75.0 [facility] Comment on above: Performed By: #### C BCMAN #### [facility] [address] [address] [address] Kirk García WBC 2.8 103/ul Critically low 4.0-11.0 [facility] Comment on above: Performed By: #### C BCMAN #### [facility] [address] [address] [address] Kirk García PROF CHEM 8 (BAS METB)on Anion gap [Moles/Vol] 9.9 mmol/L Normal [facility] Comment on above: Performed By: #### U MICRO, ERUR #### [facility] [address] [address] [address] Kirk García Calcium [Mass/Vol] 7.4 mg/dL Critically low 8.5-10.1 Th e [facility] Comment on above: Performed By: #### U MICRO, ERUR #### [facility] [address] [address] [address] Kirk García Chloride [Moles/Vol] 100 mmol/L Normal 98-107 [facility] Comment on above: Performed By: #### U MICRO, ERUR #### [facility] [address] [place] [address] Dr. Kirk García CO2 [Moles/Vol] 23.8 mmol/L Normal 21.0-32.0 [facility] Comment on above: Performed By: #### U MICRO, ERUR #### [facility] [address] [place] [address] Dr. Kirk García Creatinine [Mass/Vol] 1.43 mg/dL Critically high 0.70-1.30 [facility] Comment on above: Performed By: #### U MICRO, ERUR #### [facility] [address] [place] [address] Dr. Kirk García EGFR-AF GRE[place] 57 mL/min/1.73m2 Critically low >=60 [facility] Comment on above: Performed By: #### U MICRO, ERUR #### [facility] [address] [place] [address] Dr. Kirk García EGFR-NON AF [place] 47 mL/min/1.73m2 Critically low >=60 [facility] Comment on above: Performed By: #### U MICRO, ERUR #### [facility] [address] [place] [address] Dr. Kirk García Glucose [Mass/Vol] 148 mg/dL Critically high 74-106 T [facility] Comment on above: Performed By: #### U MICRO, ERUR #### [facility] [address] [place] [address] Dr. Kirk García Potassium [Moles/Vol] 4.7 mmol/L Normal 3.5-5.1 [facility] Comment on above: Performed By: #### U MICRO, ERUR #### [facility] [address] [place] [address] Dr. Kirk García Sodium [Moles/Vol] 129 mmol/L Critically low 136-145 Th [facility] Comment on above: Performed By: #### U MICRO, ERUR #### [facility] [address] [place] [address] Dr. Kirk García Urea nitrogen [Mass/Vol] 42.0 mg/dL Critically high 7.0-18.0 [facility] Comment on above: Performed By: #### U MICRO, ERUR #### [facility] [address] [place] [address] Dr. Kirk García Urea nitrogen/Creatinin e [Mass ratio] 29.4 mg/mg Normal [facility] Comment on above: Performed By: #### U MICRO, ERUR #### [facility] [address] [place] [address] Dr. Kirk García CBC AUTO DIFFon 08-03-2022 BASO # 0.0 103/ul Normal 0.0-0.1 [facility] Comment on above: Performed By: #### C BC #### [facility] [address] [place] [address] Dr. Kirk García Basophils/100 WBC (Bld) 0.0 % Critically low 0.2-2.0 [facility] Comment on above: Performed By: #### C BC #### [facility] [address] [place] [address] Dr. Kirk García EO # 0.0 103/ul Normal 0.0-0.7 [facility] Comment on above: Performed By: #### C BC #### [facility] [address] [place] [address] Dr. Kirk García Eosinophils/100 WBC (Bld) 0.2 % Critically low 0.9-7.0 [facility] Comment on above: Performed By: #### C BC #### [facility] [address] [place] [address] Dr. Kirk García Erythrocyte distribution width (RBC) [Ratio] 13.7 % Normal 11.0-15.0 [facility] Comment on above: Performed By: #### C BC #### [facility] [address] [place] [address] Dr. iKrk García Hematocrit (Bld) [Volume fraction] 34.3 % Critically low 42.0-54.0 [facility] Comment on above: Performed By: #### C BC #### [facility] [address] [place] [address] Dr. Kirk García Hemoglobin (Bld) [Mass/Vol] 11.8 g/dL Critically low 14.0-18.0 [facility] Comment on above: Performed By: #### C BC #### [facility] [address] [place] [address] Dr. Kirk García IG # 0.02 10e3/ul Normal 0.00-0.03 [facility] Comment on above: Performed By: #### C BC #### [facility] [address] [place] [address] Dr. iKrk García IG % 0.4 % Normal 0.0-0.5 [facility] Comment on above: Performed By: #### C BC #### [facility] [address] [place] [address] Dr. Kirk García LYMPH # 0.9 103/ul Critically low 1.2-3.8 [facility] Comment on above: Performed By: #### C BC #### [facility] [address] [place] [address] Dr. Kirk García Lymphocytes/100 WBC (Bld) 16.5 % Critically low 20.5-60.0 [facility] Comment on above: Performed By: #### C BC #### [facility] [address] [place] [address] Dr. Kirk García MANUAL DIFF REQ NO Normal [facility] Comment on above: Performed By: #### C BC #### [facility] [address] [place] [address] Dr. Kirk García MCH (RBC) [Entitic mass] 34.4 pg Critically high 25.9-34.0 [facility] Comment on above: Performed By: #### C BC #### [facility] [address] [place] [address] Dr. Kirk García MCHC (RBC) [Mass/Vol] 34.4 g/dL Normal 29.9-35.2 [facility] Comment on above: Performed By: #### C BC #### [facility] [address] [place] [address] Dr. Kirk García MCV (RBC) [Entitic vol] 100.0 fL Critically high 80.0-94.0 [facility] Comment on above: Performed By: #### C BC #### [facility] [address] [place] [address] Dr. Kirk García MONO # 1.2 103/ul Critically high 0.3-0.8 [facility] Comment on above: Performed By: #### C BC #### [facility] [address] [place] [address] Dr. Kirk García Monocytes/100 WBC (Bld) 22.3 % Critically high 1.7-12.0 [facility] Comment on above: Performed By: #### C BC #### [facility] [address] [place] [address] Dr. Kirk García NEUT # 3.4 103/ul Normal 1.4-6.5 [facility] Comment on above: Performed By: #### C BC #### [facility] [address] [place] [address] Dr. Kirk García Neutrophils/100 WBC (Bld) 60.6 % Normal 43.0-75.0 [facility] Comment on above: Performed By: #### C BC #### [facility] [address] [place] [address] Dr. Kirk García Platelet mean volume (Bld) [Entitic vol] 11.6 fL Normal 9.5-13.5 [facility] Comment on above: Performed By: #### C BC #### [facility] [address] [address] [address] Kirk García PLT 99 103/ul Critically low 150-450 [facility] Comment on above: Performed By: #### C BC #### [facility] [address] [place] [address] Dr. Kirk García RBC 3.43 106/ul Critically low 4.70-6.10 [facility] Comment on above: Performed By: #### C BC #### [facility] [address] [address] [address] Kirk García WBC 5.5 103/ul Normal 4.0-11.0 [facility] Comment on above: Performed By: #### C BC #### [facility] [address] [place] [address] Dr. Kirk García CULTURE BLOODon 08-03-2022 Microscopic examination of blood, culture Culture Observations: NO GROWTH AT 5 DAYS. Normal [facility] Comment on above: Performed By: #### U MICRO, ERUR #### [facility] [address] [place] [address] Dr. Kirk García Microscopic examination of blood, culture Culture Observations: NO GROWTH AT 5 DAYS. Normal [facility] Comment on above: Performed By: #### U MICRO, ERUR #### [facility] [address] [place] [address] Dr. Kirk García Covid-19 PCR ([facility])on SARS-CoV-2 (COVID-19) RNA SANAZ+probe Ql (Unsp spec) Detected Critically abnormal NOT DETECTED [facility] Comment on above: Result Comment: This test is not yet approved or cleared by the [place] FDA. When there are no FDA-approved or cleared tests available, and other criteria are met, FDA can make tests available under an emergency access mechanism called an Emergency Use Authorization (EUA). The EUA for this test is supported by the [employer] of Health and Human Service's declaration that circumstances exist to justify the emergency use of in vitro diagnostics for the detection and/or diagnosis of the virus that causes COVID-19. This EUA will remain in effect for the duration of the COVID-19 declaration justifying emergency of IVDs, unless it is terminated or revoked by the FDA (after which the test may no longer be used). Performed By: #### C VDTBH #### [facility] [address] [place] [address] Dr. Kirk García GROUP A STREP CULTUREon S. pyogenes Ag Ql (Unsp spec) Culture Observations: NEGATIVE FOR GROUP A STREPTOCOCCUS. Normal [facility] Comment on above: Performed By: #### U MICRO, ERUR #### [facility] [address] [place] [address] Dr. Kirk García PROF 14(COMP METB)on 022 Albumin [Mass/Vol] 3.0 g/dL Critically low 3.4-5.0 Th e [facility] Comment on above: Performed By: #### C MP #### [facility] [address] [place] [address] Dr. Kirk García Albumin/Globulin [Mass ratio] 0.7 {ratio} Normal [facility] Comment on above: Performed By: #### C MP #### [facility] [address] [place] [address] Dr. Kirk García ALP [Catalytic activity/Vol] 76 U/L Normal 46-116 [facility] Comment on above: Performed By: #### C MP #### [facility] [address] [place] [address] Dr. Kirk García ALT [Catalytic activity/Vol] 27 U/L Normal 16-63 [facility] Comment on above: Performed By: #### C MP #### [facility] [address] [place] [address] Dr. Kirk García Anion gap [Moles/Vol] 8.9 mmol/L Normal [facility] Comment on above: Performed By: #### C MP #### [facility] [address] [place] [address] Dr. Kirk García AST [Catalytic activity/Vol] 17 U/L Normal 15-37 [facility] Comment on above: Performed By: #### C MP #### [facility] [address] [place] [address] Dr. Kirk García Bilirubin [Mass/Vol] 1.3 mg/dL Critically high 0.2-1.0 [facility] Comment on above: Performed By: #### C MP #### [facility] [address] [address] [address] Kirk García Calcium [Mass/Vol] 8.1 mg/dL Critically low 8.5-10.1 Th e [facility] Comment on above: Performed By: #### C MP #### [facility] [address] [address] [address] Kirk García Chloride [Moles/Vol] 94 mmol/L Critically low 98-107 [facility] Comment on above: Performed By: #### C MP #### [facility] [address] [place] [address] Dr. Kirk García CO2 [Moles/Vol] 27.5 mmol/L Normal 21.0-32.0 [facility] Comment on above: Performed By: #### C MP #### [facility] [address] [place] [address] Dr. Kirk García Creatinine [Mass/Vol] 1.65 mg/dL Critically high 0.70-1.30 [facility] Comment on above: Performed By: #### C MP #### [facility] [address] [place] [address] Dr. Kirk García EGFR-AF [place] 48 mL/min/1.73m2 Critically low >=60 [facility] Comment on above: Performed By: #### C MP #### [facility] [address] [place] [address] Dr. Kirk García EGFR-NON AF [place] 40 mL/min/1.73m2 Critically low >=60 [facility] Comment on above: Performed By: #### C MP #### [facility] [address] [place] [address] Dr. Kirk García Globulin (S) [Mass/Vol] 4.5 g/dL Normal [facility] Comment on above: Performed By: #### C MP #### [facility] [address] [place] [address] Dr. Kirk García Glucose [Mass/Vol] 118 mg/dL Critically high 74-106 T [facility] Comment on above: Performed By: #### C MP #### [facility] [address] [address] [address] Kirk García Potassium [Moles/Vol] 4.4 mmol/L Normal 3.5-5.1 [facility] Comment on above: Performed By: #### C MP #### [facility] [address] [address] [address] Kirk García Protein [Mass/Vol] 7.5 g/dL Normal 6.4-8.2 [facility] Comment on above: Performed By: #### C MP #### [facility] [address] [address] [address] Kirk García Sodium [Moles/Vol] 126 mmol/L Critically low 136-145 Th [facility] Comment on above: Performed By: #### C MP #### [facility] [address] [address] [address] Kirk García Urea nitrogen [Mass/Vol] 36.0 mg/dL Critically high 7.0-18.0 [facility] Comment on above: Performed By: #### C MP #### [facility] [address] [address] [address] Kirk García Urea nitrogen/Creatinin e [Mass ratio] 21.8 mg/mg Normal [facility] Comment on above: Performed By: #### C MP #### [facility] [address] [address] [address] Kirk García STREPT SCREENon 08-03-2022 STREP SCREEN A Negative Normal NEGATIVE [facility] Comment on above: Performed By: #### U MICRO, ERUR #### [facility] [address] [address] [address] Kirk García XR CHEST 1 Von 08-03-2022 XR CHEST 1 V EXAMINATION: XR CHES T 1 V HISTORY: COUGH COMPARISON: XR chest 01/29/2021 FINDINGS: LUNGS: Increased mild haziness and stranding throughout the lungs, and trace amount of peripheral septal thickening. Chronic calcified granuloma within left midlung. VASCULATURE: No increased pulmonary vasculature. PLEURA: No pneumothorax, effusion, or pleural thickening. CARDIAC: Stable cardiomegaly. Cardiac pacer. MEDIASTINUM: No visible mass or adenopathy. BONES: No fracture or visible bone lesion. OTHER: Negative. IMPRESSION: 1. Mild diffuse pulmonary edema versus atelectasis; new since prior study. 2. Stable mild cardiomegaly. Electronically authenticated by: MILAGROS REEDER Date: 2022-08-03 12:55 Normal [facility] CBC AUTO DIFFon 07-08-2022 BASO # 0.0 103/ul Normal 0.0-0.1 [facility] Comment on above: Performed By: #### C BC #### [facility] [address] [place] [address] Dr. Kirk García Basophils/100 WBC (Bld) 0.5 % Normal 0.2-2.0 [facility] Comment on above: Performed By: #### C BC #### [facility] [address] [place] [address] Dr. Kirk García EO # 0.1 103/ul Normal 0.0-0.7 [facility] Comment on above: Performed By: #### C BC #### [facility] [address] [place] [address] Dr. Kirk García Eosinophils/100 WBC (Bld) 1.4 % Normal 0.9-7.0 [facility] Comment on above: Performed By: #### C BC #### [facility] [address] [address] [address] Kirk García Erythrocyte distribution width (RBC) [Ratio] 13.4 % Normal 11.0-15.0 [facility] Comment on above: Performed By: #### C BC #### [facility] [address] [place] [address] Dr. Kirk García Hematocrit (Bld) [Volume fraction] 39.6 % Critically low 42.0-54.0 [facility] Comment on above: Performed By: #### C BC #### [facility] [address] [place] [address] Dr. Kirk García Hemoglobin (Bld) [Mass/Vol] 13.2 g/dL Critically low 14.0-18.0 [facility] Comment on above: Performed By: #### C BC #### [facility] [address] [place] [address] Dr. Kirk García IG # 0.02 10e3/ul Normal 0.00-0.03 [facility] Comment on above: Performed By: #### C BC #### [facility] [address] [place] [address] Dr. Kirk García IG % 0.3 % Normal 0.0-0.5 [facility] Comment on above: Performed By: #### C BC #### [facility] [address] [place] [address] Dr. Kirk García LYMPH # 1.7 103/ul Normal 1.2-3.8 [facility] Comment on above: Performed By: #### C BC #### [facility] [address] [place] [address] Dr. Kirk García Lymphocytes/100 WBC (Bld) 28.7 % Normal 20.5-60.0 [facility] Comment on above: Performed By: #### C BC #### [facility] [address] [place] [address] Dr. Kirk García MANUAL DIFF REQ NO Normal [facility] Comment on above: Performed By: #### C BC #### [facility] [address] [place] [address] Dr. Kirk García MCH (RBC) [Entitic mass] 34.4 pg Critically high 25.9-34.0 [facility] Comment on above: Performed By: #### C BC #### [facility] [address] [place] [address] Dr. Kirk García MCHC (RBC) [Mass/Vol] 33.3 g/dL Normal 29.9-35.2 [facility] Comment on above: Performed By: #### C BC #### [facility] [address] [place] [address] Dr. Kirk García MCV (RBC) [Entitic vol] 103.1 fL Critically high 80.0-94.0 [facility] Comment on above: Performed By: #### C BC #### [facility] [address] [place] [address] Dr. Kirk García MONO # 0.9 103/ul Critically high 0.3-0.8 [facility] Comment on above: Performed By: #### C BC #### [facility] [address] [place] [address] Dr. Kirk García Monocytes/100 WBC (Bld) 15.8 % Critically high 1.7-12.0 [facility] Comment on above: Performed By: #### C BC #### [facility] [address] [place] [address] Dr. Kirk García NEUT # 3.1 103/ul Normal 1.4-6.5 [facility] Comment on above: Performed By: #### C BC #### [facility] [address] [place] [address] Dr. Kirk García Neutrophils/100 WBC (Bld) 53.3 % Normal 43.0-75.0 [facility] Comment on above: Performed By: #### C BC #### [facility] [address] [place] [address] Dr. Kirk García Platelet mean volume (Bld) [Entitic vol] 10.6 fL Normal 9.5-13.5 [facility] Comment on above: Performed By: #### C BC #### [facility] [address] [place] [address] Dr. Kirk García PLT 147 103/ul Critically low 150-450 [facility] Comment on above: Performed By: #### C BC #### [facility] [address] [place], [place] [id number] Dr. Kirk García RBC 3.84 106/ul Critically low 4.70-6.10 [facility] Comment on above: Performed By: #### C BC #### [facility] [address] [place] [address] Dr. Kirk García WBC 5.9 103/ul Normal 4.0-11.0 [facility] Comment on above: Performed By: #### C BC #### [facility] [address] [address] [address] Kirk García DIGOXINon 07-08-2022 DIG 1.1 ng/mL Normal 0.9-2.0 [facility] Comment on above: Performed By: #### U MICRO, ERUR #### [facility] [address] [place] [address] Dr. Kirk García PROF CHEM 8 (BAS METB)on Anion gap [Moles/Vol] 13.6 mmol/L Normal [facility] Comment on above: Performed By: #### U MICRO, ERUR #### [facility] [address] [place] [address] Dr. Kirk García Calcium [Mass/Vol] 9.5 mg/dL Normal 8.5-10.1 [facility] Comment on above: Performed By: #### U MICRO, ERUR #### [facility] [address] [address] [address] Kirk García Chloride [Moles/Vol] 97 mmol/L Critically low 98-107 [facility] Comment on above: Performed By: #### U MICRO, ERUR #### [facility] [address] [place] [address] Dr. Kirk García CO2 [Moles/Vol] 28.8 mmol/L Normal 21.0-32.0 [facility] Comment on above: Performed By: #### U MICRO, ERUR #### [facility] [address] [place] [address] Dr. Kirk García Creatinine [Mass/Vol] 1.43 mg/dL Critically high 0.70-1.30 [facility] Comment on above: Performed By: #### U MICRO, ERUR #### [facility] [address] [place] [address] Dr. Kirk García EGFR-AF GREENLANDIC 57 mL/min/1.73m2 Critically low >=60 [facility] Comment on above: Performed By: #### U MICRO, ERUR #### [facility] [address] [address] [address] Kirk García EGFR-NON AF GRE[place]IC 47 mL/min/1.73m2 Critically low >=60 [facility] Comment on above: Performed By: #### U MICRO, ERUR #### [facility] [address] [place] [address] Dr. Kirk García Glucose [Mass/Vol] 99 mg/dL Normal 74-106 [facility] Comment on above: Performed By: #### U MICRO, ERUR #### [facility] [address] [place] [address] Dr. Kirk García Potassium [Moles/Vol] 4.4 mmol/L Normal 3.5-5.1 [facility] Comment on above: Performed By: #### U MICRO, ERUR #### [facility] [address] [place] [address] Dr. Kirk García Sodium [Moles/Vol] 135 mmol/L Critically low 136-[address] [facility] Comment on above: Performed By: #### U MICRO, ERUR #### [facility] [address] [place] [address] Dr. Kirk García Urea nitrogen [Mass/Vol] 29.0 mg/dL Critically high 7.0-18.0 [facility] Comment on above: Performed By: #### U MICRO, ERUR #### [facility] [address] [place] [address] Dr. Kirk García Urea nitrogen/Creatinin e [Mass ratio] 20.3 mg/mg Normal [facility] Comment on above: Performed By: #### U MICRO, ERUR #### [facility] [address] [place] [address] Dr. Kirk García Patient Educationon 03-16-20 Patient Education Oncology Prostate Cancer The prostate is a walnut-sized gland that is involved in the production of semen. It is located below a man's bladder, in front of the rectum. Prostate cancer is the abnormal growth of cells in the prostate gland. What are the causes? The exact cause of this condition is not known. What increases the risk? This condition is more likely to develop in men who: ? Are older than age 65. ? Are -Malian. ? Are obese. ? Have a family history of prostate cancer. ? Have a family history of breast cancer. What are the signs or symptoms? Symptoms of this condition include: ? A need to urinate often. ? Weak or interrupted flow of urine. ? Trouble starting or stopping urination. ? Inability to urinate. ? Pain or burning during urination. ? Painful ejaculation. ? Blood in urine or semen. ? Persistent pain or discomfort in the lower back, lower abdomen, hips, or upper thighs. ? Trouble getting an erection. ? Trouble emptying the bladder all the way. How is this diagnosed? This condition can be diagnosed with: ? A digital rectal exam. For this exam, a health care provider inserts a gloved finger into the rectum to feel the prostate gland. ? A blood test called a prostate-specific antigen (PSA) test. ? An imaging test called transrectal ultrasonography. ? A procedure in which a sample of tissue is taken from the prostate and examined under a microscope (prostate biopsy). Once the condition is diagnosed, tests will be done to determine how far the cancer has spread. This is called staging the cancer. Staging may involve imaging tests, such as: ? A bone scan. ? A CT scan. ? A PET scan. ? An MRI. The stages of prostate cancer are as follows: ? Stage I. At this stage, the cancer is found in the prostate only. The cancer is not visible on imaging tests and it is usually found by accident, such as during a prostate surgery. ? Stage II. At this stage, the cancer is more advanced than it is in stage I, but the cancer has not spread outside the prostate. ? Stage III. At this stage, the cancer has spread beyond the outer layer of the prostate to nearby tissues. The cancer may be found in the seminal vesicles, which are near the bladder and the prostate. ? Stage IV. At this stage, the cancer has spread other parts of the body, such as the lymph nodes, bones, bladder, rectum, liver, or lungs. How is this treated? Treatment for this condition depends on several factors, including the stage of the cancer, your age, personal preferences, and your overall health. Talk with your health care provider about treatment options that are recommended for you. Common treatments include: ? Observation for early stage prostate cancer (active surveillance). This involves having exams, blood tests, and in some cases, more biopsies. For some men, this is the only treatment needed. ? Surgery. Types of surgeries include: ? Open surgery. In this surgery, a larger incision is made to remove the prostate. ? A laparoscopic prostatectomy. This is a surgery to remove the prostate and lymph nodes through several, small incisions. It is often referred to as a minimally invasive surgery. ? A robotic prostatectomy. This is a surgery to remove the prostate and lymph nodes with the help of a robotic arm that is controlled by a computer. ? Orchiectomy. This is a surgery to remove the testicles. ? Cryosurgery. This is a surgery to freeze and destroy cancer cells. ? Radiation treatment. Types of radiation treatment include: ? External beam radiation. This type aims beams of radiation from outside the body at the prostate to destroy cancerous cells. ? Brachytherapy. This type uses radioactive needles, seeds, wires, or tubes that are implanted into the prostate gland. Like external beam radiation, brachytherapy destroys cancerous cells. An advantage is that this type of radiation limits the damage to surrounding tissue and has fewer side effects. ? High-intensity, focused ultrasonography. This treatment destroys cancer cells by delivering high-energy ultrasound waves to the cancerous cells. ? Chemotherapy medicines. This treatment kills cancer cells or stops them from multiplying. ? Hormone treatment. This treatment involves taking medicines that act on one of the male hormones (testosterone): ? By stopping your body from producing testosterone. ? By blocking testosterone from reaching cancer cells. Follow these instructions at home: ? Take [id number] and prescription medicines only as told by your health care provider. ? Maintain a healthy diet. ? Get plenty of sleep. ? Consider joining a support group for men who have prostate cancer. Meeting with a support group may help you learn to cope with the stress of having cancer. ? Keep all follow-up visits as told by your health care provider. This is important. ? If you have to go to the hospital, notify your cancer specialis (more content not included)... Normal [facility] Office/Clinic Noteon 03-16-2022 Urology Office/Clinic Note Chief Complaint pt is here for 6wk f/u for urinary incontinence w/o sensory awareness HPI Staff pt is here for 6wk f/u for urinary incontinence w/o sensory awareness. pt does have history of prostate cancer. pt says he had 2 incontinence experiences since last visit, he fell asleep in the evening watching tv & when he woke up he noticed he voided. pt said he was taking oxybutynin in the morning with Lasix, but after talking with Dr. Bar he's been taking it around noon/early afternoon. PVR-95ml Dysuria: _denies Incomplete bladder emptying: _denies Hematuria: _denies visibly Frequency: _yes,with taking Lasix Urgency: _yes, has to go right away Nocturia: _1x Stream: _sometimes weak Leaking: _denies Post void dripping: _denies Wearing pads/ Depends: _denies Urge incontinence: _yes Stress incontinence: _denies Incontinence without Sensory Awareness: _denies Abdominal pain: _denies Flank pain: _denies Sexual complaints: _ History of Present Illness staff HPI reviewed and agree. Review of Systems no fever, chills, malaise, myalgia. no rash/lesions. no chest pain, palpitations, or SOB. no abdominal pain, nausea, vomiting. no unilateral calf swelling, redness, pain Physical Exam Vitals & Measurements HR: 75(Peripheral) BP: 93/65 HT: 183.0 cm HT: 183 cm WT: 99.3 kg WT: 99.3 kg BMI: 29.65 General: nontoxic, NAD Mouth: moist mucosa Lungs: normal respiratory effort Cardio: regular rate, good distal perfusion Abdomen: nondistended, no suprapubic distention or tenderness, no CVA tenderness Neurologic: Grossly normal Skin: No rashes or suspicious lesions Assessment/Plan UA completed in office today shows no microhematuria or signs of infection. PVR low. 1. Urge incontinence (N39.41: Urge incontinence) saw pt 01/06/22 w c/o frequency, urgency, UUI. initially he declined medication and we discussed lifestyle modifications/diet changes. called back a couple weeks later and wanted to try medication. stared oxybutynin 5mg ER once daily. pt has been on this for about 6 weeks and feels it's making an improvement. has less urgency, less frequency, and has only had 2 episodes of incontinence since starting the medication. minimal side effects - just a mild dry mouth. discussed risks/benefits of increasing dose to 10mg daily. we both agree it's best for him to stay at lowest dose as possible. refills provided. will reassess sx in 6 mos. Ordered: E&M of Est. Patient Moderate 30-39 Min 72250 Measure Post Void residual urine and/or bladder capacity by US- non-imaging 75327 Urnls Dip Stick Auto w/o Microscopy POC 56592 2. History of prostate cancer (Z85.46: Personal history of malignant neoplasm of prostate) s/p brachytherapy in 2004. PSA remained very low. pt decided to have PCP do annual monitoring when he saw PRW March 2021. Ordered: E&M of Est. Patient Moderate 30-39 Min 01768 Measure Post Void residual urine and/or bladder capacity by US- non-imaging 59280 Urnls Dip Stick Auto w/o Microscopy POC [id number] Orders: oxybutynin, 5 mg = 1 tab(s), Oral, Daily, # 90 tab(s), Refills(s) 3, Pharmacy: [id number], 183, cm, 03/16/22 9:10:00 EDT, Height/Length Dosing, 99.3, kg, 03/16/22 9:10:00 EDT, Weight Dosing Follow-up With When Contact Information KENNETH SHEPARD, MARYBETH Trivedi, URL Within 6 months [address] 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 Medications aspirin, 81 mg calcium (as calcium citrate) 200 mg oral tablet, Oral, BID digoxin 125 mcg (0.125 mg) Tab, 125 mcg= 1 tab(s), Oral, Daily Lasix 40 mg Tab, See Instructions lisinopril, 2.5 mg, Oral, Daily metoprolol 25 mg ER Tab, Oral, Daily Ocuvite, Oral, Daily oxybutynin 5 mg ER Tab, 5 mg= 1 tab(s), Oral, Daily, 3 refills Vitamin B Complex oral capsule, Oral, Daily Vitamin C, Daily Allergies No Known Allergies Social History Alcohol - Denies Alcohol Use, 01/01/2020 Substance Abuse - Denies Substance Abuse, 01/01/2020 Tobacco Never (less than 100 in lifetime (more content not included)... Normal [facility] Comment on above: Result Comment: Elec tronically Signed By: MARYBETH COOPER PA-C\.br\Date and Time Signed: 03/16/22 09:55 EDT Patient Educationon 01-06-20 Patient Education Oncology Prostate Cancer The prostate is a walnut-sized gland that is involved in the production of semen. It is located below a man's bladder, in front of the rectum. Prostate cancer is the abnormal growth of cells in the prostate gland. What are the causes? The exact cause of this condition is not known. What increases the risk? This condition is more likely to develop in men who: ? Are older than age 65. ? Are -Malian. ? Are obese. ? Have a family history of prostate cancer. ? Have a family history of breast cancer. What are the signs or symptoms? Symptoms of this condition include: ? A need to urinate often. ? Weak or interrupted flow of urine. ? Trouble starting or stopping urination. ? Inability to urinate. ? Pain or burning during urination. ? Painful ejaculation. ? Blood in urine or semen. ? Persistent pain or discomfort in the lower back, lower abdomen, hips, or upper thighs. ? Trouble getting an erection. ? Trouble emptying the bladder all the way. How is this diagnosed? This condition can be diagnosed with: ? A digital rectal exam. For this exam, a health care provider inserts a gloved finger into the rectum to feel the prostate gland. ? A blood test called a prostate-specific antigen (PSA) test. ? An imaging test called transrectal ultrasonography. ? A procedure in which a sample of tissue is taken from the prostate and examined under a microscope (prostate biopsy). Once the condition is diagnosed, tests will be done to determine how far the cancer has spread. This is called staging the cancer. Staging may involve imaging tests, such as: ? A bone scan. ? A CT scan. ? A PET scan. ? An MRI. The stages of prostate cancer are as follows: ? Stage I. At this stage, the cancer is found in the prostate only. The cancer is not visible on imaging tests and it is usually found by accident, such as during a prostate surgery. ? Stage II. At this stage, the cancer is more advanced than it is in stage I, but the cancer has not spread outside the prostate. ? Stage III. At this stage, the cancer has spread beyond the outer layer of the prostate to nearby tissues. The cancer may be found in the seminal vesicles, which are near the bladder and the prostate. ? Stage IV. At this stage, the cancer has spread other parts of the body, such as the lymph nodes, bones, bladder, rectum, liver, or lungs. How is this treated? Treatment for this condition depends on several factors, including the stage of the cancer, your age, personal preferences, and your overall health. Talk with your health care provider about treatment options that are recommended for you. Common treatments include: ? Observation for early stage prostate cancer (active surveillance). This involves having exams, blood tests, and in some cases, more biopsies. For some men, this is the only treatment needed. ? Surgery. Types of surgeries include: ? Open surgery. In this surgery, a larger incision is made to remove the prostate. ? A laparoscopic prostatectomy. This is a surgery to remove the prostate and lymph nodes through several, small incisions. It is often referred to as a minimally invasive surgery. ? A robotic prostatectomy. This is a surgery to remove the prostate and lymph nodes with the help of a robotic arm that is controlled by a computer. ? Orchiectomy. This is a surgery to remove the testicles. ? Cryosurgery. This is a surgery to freeze and destroy cancer cells. ? Radiation treatment. Types of radiation treatment include: ? External beam radiation. This type aims beams of radiation from outside the body at the prostate to destroy cancerous cells. ? Brachytherapy. This type uses radioactive needles, seeds, wires, or tubes that are implanted into the prostate gland. Like external beam radiation, brachytherapy destroys cancerous cells. An advantage is that this type of radiation limits the damage to surrounding tissue and has fewer side effects. ? High-intensity, focused ultrasonography. This treatment destroys cancer cells by delivering high-energy ultrasound waves to the cancerous cells. ? Chemotherapy medicines. This treatment kills cancer cells or stops them from multiplying. ? Hormone treatment. This treatment involves taking medicines that act on one of the male hormones (testosterone): ? By stopping your body from producing testosterone. ? By blocking testosterone from reaching cancer cells. Follow these instructions at home: ? Take [id number] and prescription medicines only as told by your health care provider. ? Maintain a healthy diet. ? Get plenty of sleep. ? Consider joining a support group for men who have prostate cancer. Meeting with a support group may help you learn to cope with the stress of having cancer. ? Keep all follow-up visits as told by your health care provider. This is important. ? If you have to go to the hospital, notify your cancer specialis (more content not included)... Normal [facility] Urology Office/Clinic Noteon 01-06-2022 Urology Office/Clinic Note Chief Complaint Urinary incontinence HPI Staff Pt is here for incontinence issue. Previous dx of hx of prostate cancer (Brachytherapy 2004), BPH with urinary obstruction, weak stream and gross hematuria. Pt states that he has some leaking in the past but nothing he wanted to medication for so he waited. Now recently he aldridge noticed incontinence when he is sleeping without being aware that he aldridge done anything until he wakes up. Dysuria: no Incomplete bladder emptying: no Hematuria: nothing recent Frequency: only in the morning with his Lasix Urgency: only in the morning with Lasix Nocturia: no Stream: moderate stream Leaking: only if he holds it too long Post void dripping: yes Wearing pads/ Depends: no Urge incontinence: yes sometimes Stress incontinence: no Incontinence without Sensory Awareness: pt states that within the last 6 months he will accidents when he is asleep without knowing he did anything Abdominal pain: no Flank pain: no Sexual complaints: no History of Present Illness staff HPI reviewed and agree. Review of Systems PHQ Score Initial Depression Screen Score: 0 no fever, chills, malaise, myalgia. no rash/lesions. no chest pain, palpitations, or SOB. no abdominal pain, nausea, vomiting. no unilateral calf swelling, redness, pain Physical Exam Vitals & Measurements HR: 48(Peripheral) RR: 16 BP: 86/41 HT: 183 cm HT: 183.0 cm WT: 99.3 kg WT: 99.3 kg BMI: 29.65 General: nontoxic, NAD Mouth: moist mucosa Lungs: normal respiratory effort Cardio: regular rate, good distal perfusion Abdomen: nondistended, no suprapubic distention or tenderness, no CVA tenderness Neurologic: Grossly normal Skin: No rashes or suspicious lesions Assessment/Plan 1. Urinary incontinence without sensory awareness (N39.42: Incontinence without sensory awareness) pt has mild frequency/urgency after he takes lasix in the morning. he has occasional UUI if he waits too long to go to the bathroom, which is not bothersome. good strong steady stream. no hesitancy or intermittency. feels empty. he is here today with primary complaint of wetting while sleeping. this has been for the past few months, worsening. happens occasionally overnight. but almost any time he falls asleep during the day. we had a long discussion about reducing bladder irritants. also recommended timed voiding throughout the day and trying to void if he starts to feel tired and thinks he might nap. I offered trial of anticholinergic but he is adamantly opposed to medications at this time. UA completed in office today shows no microhematuria or signs of infection. pt will call office if he changes his mind & wants to try a med or if things worsen Ordered: Office Visit Level 4 Est 83994 2. History of prostate cancer (Z85.46: Personal history of malignant neoplasm of prostate) s/p brachytherapy in 2004. PSA remained very low. pt decided to have PCP do annual monitoring when he saw PRW at last visit March 2021. Ordered: Office Visit Level 4 Est 84494 Orders: Urnls Dip Stick Auto w/o Microscopy POC 34929 Total time spent reviewing previous notes/results/externa l documents, preparing the chart, conducting the encounter with the patient and family, ordering tests/medications, and documenting the encounter was 40 minutes. 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 Medications aspirin, 81 mg calcium (as calcium citrate) 200 mg oral tablet, Oral, BID digoxin 125 mcg (0.125 mg) Tab, 125 mcg= 1 tab(s), Oral, Daily Lasix 40 mg Tab, See Instructions lisinopril, 2.5 mg, Oral, Daily metoprolol 25 mg ER Tab, Oral, Daily Ocuvite, Oral, Daily Vitamin B Complex oral capsule, Oral, Daily Vitamin C, Daily Allergies No Known Allergies Social History Alcohol - Denies Alcohol Use, 01/01/2020 Substance Abuse - Denies Substance Abuse, 01/01/2020 Tobacco Never (less than 100 in lifetime) Tobacco Use:., 02/14/2020 Never (less than 100 in lifetime) Tobacco Use:. Never Smokeless Tobacco Use:., 02 (more content not included)... Normal [facility] Comment on above: Result Comment: Elec tronically Signed By: MARYBETH COOPER PA-C\.lisa\Date and Time Signed: 01/06/22 16:55 NYDIA Corey 07-29-2021 MANOJ Telephone (ReSnap) SAMSON JOE ([id number]) 1935 M Date Time Provider Department 07/29/21 DALILA RILEY During your visit today, we recorded the following information about you: Dalila Riley RN 07/29/2021 10:36 AM Signed Spoke with Samson, he is currently still at the hotel and is planning on going to the [facility]. We discussed pain control and did remind patient use of Aleve or Motrin in between narcotics as the narcotics can increase issues with constipation. We did discuss use of Miralax if no Bm by Monday and patients states [place] help him with that. Encouraged to keep up with water intake especially since no appetite today. 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 - vitamin B complex (B COMPLEX ORAL) Take by mouth once daily. - vit C/vit E acet/lutein/min (OCUVITE LUTEIN ORAL) Take by mouth once daily. - calcium citrate/vitamin D3 (CITRACAL + D ORAL) Take by mouth once daily. - ascorbic acid, vitamin C, (VITAMIN C) 500 mg tablet Take 500 mg by mouth once daily. - digoxin (LANOXIN) 125 mcg (0.125 mg) tablet Take 0.125 mg by mouth once daily. - lisinopril 2.5 mg tablet Take 2.5 mg by mouth once daily. - metoprolol tartrate, short acting, (LOPRESSOR) 25 mg tablet Take 25 mg by mouth twice daily. Take one and a half tablets by mouth every morning and take one tablet by mouth every evening. - furosemide (LASIX) 40 mg tablet Take 40 mg by mouth once daily. Problem List As Of Date 07/29/2021 Noted Resolved Mitral valve regurgitation [I34.0] Aortic Insufficiency [I35.9] Right-sided heart failure (HCC) [I50.810] 10/24/2016 Pre-op testing [Z01.818] 12/21/2016 12/22/2016 Complete heart block (HCC) [I44.2] 12/22/2016 Tricuspid valve regurgitation [I07.1] 12/22/2016 Atelectasis [J98.11] 12/22/2016 07/19/2021 Atrial fibrillation (HCC) [I48.91] 12/22/2016 Cardiac insufficiency following cardiac surgery*12/22/2016 01/01/2017 Lactic acidosis [E87.2] 12/22/2016 12/29/2016 Postprocedural hypotension [I95.81] 12/22/2016 01/06/2017 Stress hyperglycemia [R73.9] 12/22/2016 01/08/2017 Hypothermia due to anesthesia [T88.51XA] 12/22/2016 12/24/2016 PVC's (premature ventricular contractions) [I49*12/22/2016 12/29/2016 Cardiac tamponade [I31.4] 12/23/2016 12/31/2016 Shock liver [K72.00] 12/24/2016 01/06/2017 Secondary thrombocytopenia [D69.59] 12/25/2016 01/05/2017 Cardiogenic shock (HCC) [R57.0] 12/26/2016 12/31/2016 Moderate protein malnutrition (HCC) [E44.0] 12/28/2016 Acute respiratory failure with hypoxia (HCC) [J*12/31/2016 07/19/2021 Serratia marcescens infection (HCC) [A48.8] 12/31/2016 01/05/2017 Metabolic alkalosis [E87.3] 01/02/2017 01/03/2017 Pleural effusion [J90] 01/06/2017 07/19/2021 Acute cholecystitis [K81.0] 12/05/2019 12/09/2019 History of prostate cancer [Z85.46] 07/19/2021 Pulmonary hypertension (HCC) [I27.20] 07/19/2021 Chronic kidney disease [N18.9] 07/19/2021 Presence of cardiac pacemaker [Z95.0] 07/19/2021 Aortic valve regurgitation [I35.1] 07/19/2021 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] 07/19/2021 H/O mitral valve repair [Z98.890] 07/19/2021 Chronic congestive heart failure (HCC) [I50.9] 07/19/2021 History of atrial fibrillation [Z86.79] 07/19/2021 Calculus of gallbladder without cholecystitis w*07/19/2021 Essential hypertension [I10] 07/19/2021 Thrombocytopenia (HCC) [D69.6] 07/19/2021 Anemia [D64.9] 07/19/2021 Encounter Status:Closed by DALILA RILEY on 07/29/21 [facility] ANES POSTPROC EVALon 021 ANES POSTPROC EVAL HNO ID: [id number] Author: Ramiro Esquivel MD Service: Anesthesiology Author Type: Anesthesiologist Type: Anesthesia Postprocedure Evaluation Filed: 07/28/2021 1:35 PM Note Text: POST ANESTHESIA EVALUATION NOTE : 1935 Procedure Summary Date: 07/28/21 Room / Location: AV OR02 / AV OR Anesthesia Start: 1033 Anesthesia Stop: 1134 Procedure: LAPAROSCOPIC CHOLECYSTECTOMY WITH GRAMS (N/A Gallbladder) Diagnosis: Calculus of gallbladder without cholecystitis without obstruction (Calculus of gallbladder without cholecystitis without obstruction [K80.20]) Surgeons: Jewel Cary III, MD Responsible Provider: Ramiro Esquivel MD Anesthesia Type: general ASA Status: 4 Anesthesia Type: general Last vitals Vitals Value Taken Time BP 115/94 07/28/21 1230 Temp 36.1 ?C (97 ?F) 07/28/21 1130 HR SpO2 70 07/28/21 1130 Resp 16 07/28/21 1229 SpO2 94 % 07/28/21 1229 Vitals shown include unvalidated device data. Post Anesthesia Patient Status Patient Evaluation: PACU. PACU/ICU Patient Condition: stable. Anticipated Disposition: phase 2 then home. Neurological Status: aware and responsive. Pulmonary Status: breathing comfortably on room air Airway Control: returned to baseline unsupported. Cardiovascular Status: stable. Pain Management: clinically adequate - multimodal analgesia pain management approach Postoperative Hydration: acceptable. Intraoperative Events: no significant anesthesia events Recommendation: continue current plan of care. No complications documented. SIGNATURE: Ramiro Esquivel MD PATIENT NAME: Samson Joe DATE: July 28, 2021 TIME: 1:35 PM CSN: [id number] [facility] ANES PRE-OPon 07-28-2021 ANES PRE-OP HNO ID: [id number] Author: Ramiro Esquivel MD Service: Anesthesiology Author Type: Anesthesiologist Type: Anesthesia Preprocedure Evaluation Filed: 07/28/2021 10:18 AM Note Text: ANESTHESIOLOGY DAY OF SURGERY NOTE : 1935 Procedure(s) (LRB): LAPAROSCOPIC CHOLECYSTECTOMY WITH GRAMS (N/A) Surgeon(s): Jewel Cary III, MD Estimated body mass index is 29.7 kg/m? as calculated from the following: Height as of this encounter: 182.9 cm (6'). Weight as of this encounter: 99.3 kg (219 lb). Most recent hematocrit and potassium results: Hematocrit 32.6 12/09/2019 Potassium 4.3 12/09/2019 Relevant Problems CARDIO (+) Aortic valve regurgitation (+) Atrial fibrillation (HCC) (s/p pacemaker) (+) Chronic congestive heart failure (HCC) (EF 40-50%) (+) Complete heart block (HCC) (+) Essential hypertension (+) Mitral valve regurgitation (+) Presence of cardiac pacemaker (+) Pulmonary hypertension (HCC) -RENAL (+) Chronic kidney disease NEURO-PSYCH (+) History of atrial fibrillation (+) History of prostate cancer Other (+) H/O mitral valve repair (+) H/O tricuspid valve repair (+) Thrombocytopenia (HCC) (140s on recent labs) I - PHYSICAL EVALUATION AIRWAY Patient intubated: No. Mallampati: II. TM distance: >3 FB. Neck ROM: full ROM without neurological symptoms. Mouth opening: adequate. Short neck: no. Thick neck: no DENTAL Dental findings: teeth intact. Additional exam findings: no II - ANESTHESIA PLAN ASA Score: 4 Anesthetic Plan: general Airway type: ETT NPO Status: adequate Monitoring plan: Standard ASA. Postoperative analgesic plan: parenteral or oral opioids and multimodal analgesia. Anesthetic Risks, Benefits, Alternatives, Personnel Discussed. Consent obtained from: patient.Patient / Surrogate agrees to blood products: yes DNR status not reviewed with patient and/or family prior to surgery. Significant changes in the patient condition since the History and Physical, not otherwise documented in primary service progress note: no. Potential Anesthesia issues that may suggest increased risk of complications or contraindication to planned procedure: none. Vitals Value Taken Time BP 124/63 07/28/21 0954 Pulse Resp 16 07/28/21 0954 Temp 36.1 ?C (96.9 ?F) 07/28/21 0954 SpO2 95 % 07/28/21 0954 Facility-Administered Medications as of 07/28/2021 Medication Dose Route Frequency - lidocaine 10 mg/mL (1 %) 1-2 mg injection (XYLOCAINE) 0.1-0.2 mL INTRADERMAL PRN - lactated ringers iv infusion 5-30 mL/hr INTRAVENOUS CONTINUOUS - [START ON 07/29/2021] ampicillin-sulbactam iv piggyback 3 g in NaCl 0.9% 100 mL Vial-Bag (UNASYN) 3 g INTRAVENOUS Certification Officer to OR - [COMPLETED] acetaminophen 1,000 mg tab(s) (TYLENOL) 1,000 mg ORAL Pre-Op Once Outpatient Medications as of 07/28/2021 Medication Sig - digoxin (LANOXIN) 125 mcg (0.125 mg) tablet Take 0.125 mg by mouth once daily. - lisinopril 2.5 mg tablet Take 2.5 mg by mouth once daily. - metoprolol tartrate, short acting, (LOPRESSOR) 25 mg tablet Take 25 mg by mouth twice daily. Take one and a half tablets by mouth every morning and take one tablet by mouth every evening. - furosemide (LASIX) 40 mg tablet Take 40 mg by mouth once daily. I have interviewed and examined the patient. I have reviewed the medical record and/or the pre-anesthesia evaluation, pertinent labs, and test results. This contains updated information obtained within 48 hours of Surgery/Procedure. SIGNATURE: Ramiro Esquivel MD PATIENT NAME: Samson Joe DATE: July 28, 2021 TIME: 10:17 AM CSN: [id number] [facility] HISTORY PHYSICALon HISTORY PHYSICAL HNO ID: [id number] Author: Jewel Cary III, MD Service: General Surgery Author Type: Physician Type: HANDP Filed: 07/28/2021 10:16 AM Note Text: UPDATED HISTORY AND PHYSICAL EXAMINATION SERVICE DATE: 07/28/2021 SERVICE TIME: 10:16 AM PHYSICAL EXAM MUST BE COMPLETED ON ADMISSION The History and Physical (completed in the past 30 days) has been reviewed and the patient has been examined. The contents accurately reflect the patient's condition with the following additions or revisions since the HANDP was completed. Examination indicates no changes. This HANDP can be found in the Electronic Medical Record dated 07/19/2021. SIGNATURE: Jewel Cayr III, MD PATIENT NAME: Samson Joe DATE: July 28, 2021 TIME: 10:16 AM [facility] OPERATIVE NOon 07-28-2021 OPERATIVE NO HNO ID: [id number] Author: Jewel Cary III, MD Service: General Surgery Author Type: Physician Type: Operative Report Filed: 07/28/2021 11:24 AM Note Text: OPERATIVE REPORT LOG ID: [id number] SURGERY/PROCEDURE DATE: 07/28/2021 INCISION/PROCEDURE START TIME: 10:47 AM INCISION CLOSE/PROCEDURE END TIME: 11:24 AM SURGEON: Jewel Cary III, MD ?? COMMUNICATION STUDIES PROFESSOR: Monserrat Salazar PA-C? ? OPERATION: Laparoscopic cholecystectomy (12747). ? ANESTHESIA: GETA and 10 mL of 0.5% Marcaine ?? PREOPERATIVE DIAGNOSIS:?Symptomati c cholelithiasis with chronic cholecystitis ? POSTOPERATIVE DIAGNOSIS: Same? ?? INDICATIONS FOR PROCEDURE:?40?year old?male?was seen in office for RUQ pain and?imaging revealing gallstones.? I discussed laparoscopic (possible open) cholecystectomy with possible cholangiogram was discussed. Indications, risks, and benefits discussed and consent obtained. ?Risks including postoperative pain, bleeding, infection, bile leak, intrabdominal abscess, hematoma, bile duct injury requiring further major extensive surgery, post cholangiogram pancreatitis, and conversion to open approach were all discussed. ?Booklet given. ? ?? OPERATIVE FINDINGS:?Adhesions to gallbladder and cirrhosis evident ?? OPERATIVE PROCEDURE: The patient was taken to the operating room, placed supine on the operating room table. ?After general endotracheal anesthesia was established, the abdomen was prepped and draped in a standard sterile surgical fashion. ?An? infraumbilical incision was created in the skin. ?Dissection was carried down through the subcutaneous tissue and down to the fascia. ?The fascia was divided in its midline. Allis clamps were placed on both sides of the fascia and #0 Vicryl anchoring sutures were placed on both sides of the fascia. ?The peritoneum was entered and 12-mm Aminah port was placed using this open Aminah technique and held in position with the #0 Vicryl anchoring sutures. ?Pneumoperitoneum was then established using CO2. ?A transverse incision was made in the epigastric region and an 11-mm bladeless trocar was introduced into the abdomen under direct laparoscopic visualization. ?Following this, right subcostal and right lateral incisions were created and 5-mm bladeless trocars were introduced into the abdomen. The patient had been tilted steeply to the left and in reverse Trendelenburg. ?Through the right lateral most port, a grasper with teeth was placed on the fundus.? The gallbladder?was retracted cephalad up toward the diaphragm. ? ?? A grasper was placed through the right subcostal port and utilized to grasp the infundibulum of the gallbladder to retract the infundibulum out laterally, the [place] dissector was utilized to dissect a window around the cystic duct. The cystic duct was?short and dilated.??A purple loaded endoGIA was closed and fired.??Now, the cystic artery was identified. One clip was fired distally, 2 proximally, and the cystic artery was transected.??The gallbladder was removed from its fossa, placed in an Endocatch bag, and retrieved out of the 12-mm port. ?Pneumoperitoneum was released and all ports were removed.??The previously placed #0 Vicryl anchoring sutures were utilized to close the fascia. I injected 0.5% Marcaine locally to the 4 sites to try to achieve adequate postoperative analgesia. Once this was completed, the skin was closed. ? ? ESTIMATED BLOOD LOSS:?<5 mL. ?? DRAINS:?None. ?? SPECIMENS: Gallbladder?to Pathology for further analysis. ?? COMPLICATIONS: None. ?? The role of the PA was to assist with exposure and dissection of tissue, management of the laparoscope, skin closure. ?? I was present and participated in this entire operation. There were no available residents.? ? Jewel Cary III, MD SIGNATURE: Jewel Cary III, MD PATIENT NAME: Samson Joe DATE: July 28, 2021 TIME: 11:22 AM Normal [facility] SURGICAL PATHOLOGYon SURGICAL PATHOLOGY Specimen originated from [facility] Specimen #: [id number] Submitting Physician: JEWEL CARY MD FINAL DIAGNOSIS Gallbladder, cholecystectomy - Cholelithiasis with acute and chronic cholecystitis and adenomyomatous hyperplasia. Tyree Chao M.D. (Electronic Signature) ____ SPECIMEN SUBMITTED A: GALLBLADDER CLINICAL DATA CALCULUS OF GALLBLADDER WITHOUT CHOLECYSTITIS WITHOUT OBSTRUCTION GROSS DESCRIPTION A. Received in formalin labeled gallbladder is a 4.5 x 2.2 x 1.3 cm gallbladder. The serosa is walker-red and ragged with numerous fibrous adhesions. No defects are present. The cystic duct is received stapled. The lumen contains scant walker-red translucent fluid and multiple black friable calculi measuring up to 0.7 cm in greatest dimension, multiple of which are within the cystic duct. The wall of the fundus is thickened with multiple minute cystic spaces. The remaining wall is focally fibrotic and the thickness ranges from 0.2-0.5 cm. The mucosa is walker-red, hyperemic, and granular. Debrander sections are submitted as follows: A1 cystic duct margin and wall, A2 fundus. SLE/ch 07/28/2021 [place] [address] Date of Report: 07/29/2021 Date of Procedure: 07/28/2021 Date of Receipt: 07/28/2021 Submitted by: JEWEL CARY MD Location: AV Diagnostic interpretation performed at [facility], [address] [place] [address]. CLIA Number: [id number] Normal [facility] Reference Lab Comment on above: Performed By: #### S #### See report for performing lab information. HISTORY PHYSICALon HISTORY PHYSICAL HNO ID: [id number] Author: Denita Simmons PA-C Service: ? Author Type: Physician Counter Waiter Type: HANDP Filed: 07/19/2021 4:18 PM Note Text: HISTORY AND PHYSICAL EXAMINATION SERVICE DATE: 07/19/2021 SERVICE TIME: 11:10 AM PRIMARY CARE PHYSICIAN: Timo Bar DO REASON FOR VISIT: Samson Joe is a 85 year old male who is scheduled for LAPAROSCOPIC CHOLECYSTECTOMY WITH GRAMS at the request of Dr. Jewel Cary III for consultation. My final recommendation will be communicated back to the requesting physician by way of shared medical record or letter. The patient has the following: ACTIVE PROBLEM LIST Mitral Valve Regurgitation Aortic Insufficiency Right-Sided Heart Failure (Hcc) Complete Heart Block (Hcc) Tricuspid Valve Regurgitation Atrial Fibrillation (Hcc) Moderate Protein Malnutrition (Hcc) History of Prostate Cancer Pulmonary Hypertension (Hcc) Chronic Kidney Disease Presence of Cardiac Pacemaker Aortic Valve Regurgitation H/O Tricuspid Valve Repair H/O Mitral Valve Repair Chronic Congestive Heart Failure (Hcc) History of Atrial Fibrillation Calculus of Gallbladder Without Cholecystitis Without Obstruction Essential Hypertension Subjective CHIEF COMPLAINT: Needs gallbladder out HPI: Patient is a 85 year old male presenting for pre-anesthesia consultation. Patient began having issues with his gallbladder in November 2019. He was admitted to [facility] due to [place] cystitis. Providers at that time elected to place a drain into the gallbladder. Patient states it fell out 2 weeks later. His last episode of severe right upper quadrant pain was in October 2020. Located right upper quadrant was uncomfortable had associated nausea as well. States he went to the ER and had elevated liver and pancreas labs, however they resolved him back to normal in 1 day he was told that he likely passed a gallstone. Occasional sharp twinges in the right upper quadrant that resolved quickly. Denies any heartburn. Had episodes of loose bowel movements few weeks ago, but this is since resolved. Denies constipation or blood in the stool. Seen by surgeon diagnosed with calculus of gallbladder without cholecystitis without obstruction and recommended for above surgery. PAST MEDICAL HISTORY Diagnosis Date - Aortic valve regurgitation - Complete heart block (HCC) - Heart failure (HCC) 12/21/2016 BNP elevated 1670 - HTN (hypertension) - Mitral valve prolapse - Mitral valve regurgitation - Thrombocytopenia (HCC) 12/21/2016 - Trauma 11/14/2016 fell on iced stairs and bruised left thigh and scrotum - Tricuspid valve regurgitation PAST SURGICAL HISTORY Procedure Laterality Date - HEART SURGERY HX 11/2016 mitral and tricuspid valve repair - HERNIA REPAIR HX age 19's - PACEMAKER 2006 - PACEMAKER 01/2021 [place] [employer] placed - PAST SURGICAL HISTORY OF 11/27/2006 PPM - PROSTATE SURGERY HX 2005 seeds placed - REPAIR RETINAL DETACH, C 1988 FAMILY HISTORY Problem Relation Age of Onset - Heart Mother 79 - Hypertension Mother SOCIAL HISTORY: Social History Tobacco Use - Smoking status: Never Smoker - Smokeless tobacco: Never Used Substance Use Topics - Alcohol use: Not Currently - Drug use: No MEDICATIONS: Prior to Admission medications as of 07/19/21 1213 Medication Sig Last Dose Taking aspirin, enteric coated (ASPIRIN, ENTERIC COATED) 81 mg EC tablet Take 81 mg by mouth once daily. Taking Yes vitamin B complex (B COMPLEX ORAL) Take by mouth once daily. Taking Yes vit C/vit E acet/lutein/min (OCUVITE LUTEIN ORAL) Take by mouth once daily. Taking Yes calcium citrate/vitamin D3 (CITRACAL + D ORAL) Take by mouth once daily. Taking Yes ascorbic acid, vitamin C, (VITAMIN C) 500 mg tablet Take 500 mg by mouth once daily. Taking Yes digoxin (LANOXIN) 125 mcg (0.125 mg) tablet Take 0.125 mg by mouth once daily. Taking Yes lisinopril 2.5 mg tablet Take 2.5 mg by mouth once daily. Taking Yes metoprolol tartrate, short acting, (LOPRESSOR) 25 mg tablet Take 25 mg by mouth twice daily. Take one and a half tablets by mouth every morning and take one tablet by mouth every evening. Taking Yes furosemide (LASIX) 40 mg tablet Take 40 mg by mouth once daily. Taking Yes No medication comments found. CURRENT ALLERGIES: ALLERGIES No Known Allergies REVIEW OF SYSTEMS: PAIN ASSESSMENT: General: No weight loss, malaise or fevers. Neuro: No history of TIA's, stroke, MANAGER OF OPERATIONS tumor, impaired sensorium, hemiplegia, paraplegia or quadraplegia. No neurological symptoms or problems. Respiratory: Negative for Asthma, Dyspnea, Tobacco Use, URI < 2 weeks +PND - can rarely trigger cough, but stable, no acute symptoms Cardiovascular: +Pacemaker ([employer]mar scien) - A-fib hx, CHB no symptoms +Heart failure - on digoxin, Lasix. Chronic lower extremity edema. +Valve history - s/p Mitral and tricuspid repair 2017 - Dr. Adrianna Geiger - Ra (more content not included)... [facility] CNCOon 07-13-2021 CNCO Letter Text [facility] CNPNevin 07-13-2021 CNPN Telephone (THE FASHION) SAMSON JOE ([id number]) 1935 M Date Time Provider Department 07/13/21 JEWEL CARY III During your visit today, we recorded the following information about you: Marybeth Laureano 07/13/2021 12:24 PM Signed Pt was seen by Dr. Cary. Pt has been recommended for lap rima w grams under general. Please advise if pt has Cardiac clearance and can stop ASA for 7 days prior to surgery date. Pt scheduled on 07-21-21 for surgery. Please notify general surgeons office by routing message back to Angel ROSARIO BRAZER FURNACE, prior to notifying the patient. Marybeth Laureano 07/13/2021 1:53 PM Signed Pt seeing Cardi Dr Adrianna Geiger @ [facility] 216 Will send clearance to this provider Cat Gibbs 07/15/2021 11:03 AM Signed Cari from [facility] Geiger's office called and asked to have clearance letter fax to [phone]. Thank you. Marybeth Laureano 07/15/2021 11:21 AM Signed Letter reprinted and faxed to [place] office with confirmation received. Denita Simmons PA-C 07/19/2021 11:54 AM Signed Received signed letter from Dr. Geiger's office and will have it scanned. I saw patient for preop visit today. He took his 81 mg last night. So he will only be off it for 2 full days prior to 07/21 surgery. Wanted to make sure you were still ok proceeding? DEVYN Porter PA-C 07/19/2021 2:50 PM Signed Per routing comment: Spoke with Dr. Cary and he is not agreeable to the patient being off only two days. The patient should have been off for [address] Cary says he needs to be cancelled. Dalila Please cancel and reschedule patient. Thank you. Marybeth Laureano 07/19/2021 3:01 PM Signed Spoke w pt moved surgery to 07-28-21. He will stop ASA 7days prior. Pt also asking if his post op can be virtual? Radha Matos PA-C 07/19/2021 3:06 PM Signed Yes, post op can be virtual. Marybeth Laureano 07/20/2021 10:19 AM Signed Post op changed to virtual. Allergies As of Date: 07/13/2021 (No Known Allergies) Date Reviewed: 12/08/2019 Reviewed by: Katherine (Rn) Lucy RN - Fully Assessed Reason for Visit: Cardiac Clearance [4105] Prescriptions as of 07/20/2021 - aspirin, enteric coated (ASPIRIN, ENTERIC COATED) 81 mg EC tablet Take 81 mg by mouth once daily. - vitamin B complex (B COMPLEX ORAL) Take by mouth once daily. - vit C/vit E acet/lutein/min (OCUVITE LUTEIN ORAL) Take by mouth once daily. - calcium citrate/vitamin D3 (CITRACAL + D ORAL) Take by mouth once daily. - ascorbic acid, vitamin C, (VITAMIN C) 500 mg tablet Take 500 mg by mouth once daily. - digoxin (LANOXIN) 125 mcg (0.125 mg) tablet Take 0.125 mg by mouth once daily. - lisinopril 2.5 mg tablet Take 2.5 mg by mouth once daily. - metoprolol tartrate, short acting, (LOPRESSOR) 25 mg tablet Take 25 mg by mouth twice daily. Take one and a half tablets by mouth every morning and take one tablet by mouth every evening. - furosemide (LASIX) 40 mg tablet Take 40 mg by mouth once daily. Problem List As Of Date 07/13/2021 Noted Resolved Mitral valve regurgitation [I34.0] Aortic Insufficiency [I35.9] Right-sided heart failure (HCC) [I50.810] 10/24/2016 Pre-op testing [Z01.818] 12/21/2016 12/22/2016 Discharge planning issues [Z02.9] 12/21/2016 Complete heart block (HCC) [I44.2] 12/22/2016 Tricuspid valve regurgitation [I07.1] 12/22/2016 Atelectasis [J98.11] 12/22/2016 Atrial fibrillation (HCC) [I48.91] 12/22/2016 Cardiac insufficiency following cardiac surgery*12/22/2016 01/01/2017 Acute kidney injury superimposed on chronic kid*12/22/2016 Lactic acidosis [E87.2] 12/22/2016 12/29/2016 Postprocedural hypotension [I95.81] 12/22/2016 01/06/2017 Stress hyperglycemia [R73.9] 12/22/2016 01/08/2017 Hypothermia due to anesthesia [T88.51XA] 12/22/2016 12/24/2016 Post-operative pain [G89.18] 12/22/2016 PVC's (premature ventricular contractions) [I49*12/22/2016 12/29/2016 Cardiac tamponade [I31.4] 12/23/2016 12/31/2016 Shock liver [K72.00] 12/24/2016 01/06/2017 Secondary thrombocytopenia [D69.59] 12/25/2016 01/05/2017 Cardiogenic shock (HCC) [R57.0] 12/26/2016 12/31/2016 Moderate protein malnutrition (HCC) [E44.0] 12/28/2016 Acute respiratory failure with hypoxia (HCC) [J*12/31/2016 Serratia marcescens infection (HCC) [A48.8] 12/31/2016 01/05/2017 Metabolic alkalosis [E87.3] 01/02/2017 01/03/2017 Pleural effusion [J90] 01/06/2017 Acute cholecystitis [K81.0] 12/05/2019 12/09/2019 Encounter Status:Closed by MARYBETH LAUREANO on 07/13/21 [facility] [place] 07-12-2021 FEDERICON Telephone (GENSAV) SAMSON JOE ([id number]) 1935 M Date Time Provider Department 07/12/21 JEWEL CARY III During your visit today, we recorded the following information about you: Marybeth Laureano 07/13/2021 2:08 PM Addendum Cur received Pt needs cardiac clearance Dr Kody Lynn Tele enct sent Spoke w pt he now sees Dr Adrianna Geiger at [facility]. Letter electronically sent. Marybeth Laureano 07/13/2021 3:25 PM Signed electronic faxed failed printed and sent to verified fax number of [phone]. Confirmed received. Marybeth Laureano 07/19/2021 3:02 PM Signed PACC received clearance from Dr Geiger. Pt cleared scheduled 07-28-21 Allergies As of Date: 07/12/2021 (No Known Allergies) Date Reviewed: 12/08/2019 Reviewed by: Katherine BootheRn) DORIAN Ayala - Fully Assessed Reason for Visit: Schedule Surgery [1330] Prescriptions as of 07/19/2021 - aspirin, enteric coated (ASPIRIN, ENTERIC COATED) 81 mg EC tablet Take 81 mg by mouth once daily. - vitamin B complex (B COMPLEX ORAL) Take by mouth once daily. - vit C/vit E acet/lutein/min (OCUVITE LUTEIN ORAL) Take by mouth once daily. - calcium citrate/vitamin D3 (CITRACAL + D ORAL) Take by mouth once daily. - ascorbic acid, vitamin C, (VITAMIN C) 500 mg tablet Take 500 mg by mouth once daily. - digoxin (LANOXIN) 125 mcg (0.125 mg) tablet Take 0.125 mg by mouth once daily. - lisinopril 2.5 mg tablet Take 2.5 mg by mouth once daily. - metoprolol tartrate, short acting, (LOPRESSOR) 25 mg tablet Take 25 mg by mouth twice daily. Take one and a half tablets by mouth every morning and take one tablet by mouth every evening. - furosemide (LASIX) 40 mg tablet Take 40 mg by mouth once daily. Problem List As Of Date 07/12/2021 Noted Resolved Mitral valve regurgitation [I34.0] Aortic Insufficiency [I35.9] Right-sided heart failure (HCC) [I50.810] 10/24/2016 Pre-op testing [Z01.818] 12/21/2016 12/22/2016 Discharge planning issues [Z02.9] 12/21/2016 Complete heart block (HCC) [I44.2] 12/22/2016 Tricuspid valve regurgitation [I07.1] 12/22/2016 Atelectasis [J98.11] 12/22/2016 Atrial fibrillation (HCC) [I48.91] 12/22/2016 Cardiac insufficiency following cardiac surgery*12/22/2016 01/01/2017 Acute kidney injury superimposed on chronic kid*12/22/2016 Lactic acidosis [E87.2] 12/22/2016 12/29/2016 Postprocedural hypotension [I95.81] 12/22/2016 01/06/2017 Stress hyperglycemia [R73.9] 12/22/2016 01/08/2017 Hypothermia due to anesthesia [T88.51XA] 12/22/2016 12/24/2016 Post-operative pain [G89.18] 12/22/2016 PVC's (premature ventricular contractions) [I49*12/22/2016 12/29/2016 Cardiac tamponade [I31.4] 12/23/2016 12/31/2016 Shock liver [K72.00] 12/24/2016 01/06/2017 Secondary thrombocytopenia [D69.59] 12/25/2016 01/05/2017 Cardiogenic shock (HCC) [R57.0] 12/26/2016 12/31/2016 Moderate protein malnutrition (HCC) [E44.0] 12/28/2016 Acute respiratory failure with hypoxia (HCC) [J*12/31/2016 Serratia marcescens infection (HCC) [A48.8] 12/31/2016 01/05/2017 Metabolic alkalosis [E87.3] 01/02/2017 01/03/2017 Pleural effusion [J90] 01/06/2017 Acute cholecystitis [K81.0] 12/05/2019 12/09/2019 Encounter Status:Closed by MARYBETH LAUREANO on 07/19/21 [facility] HISTORY PHYSICALon HISTORY PHYSICAL HNO ID: [id number] Author: Jewel Cary III, MD Service: ? Author Type: Physician Type: HANDP Filed: 07/09/2021 1:32 PM Note Text: NEW VIRTUAL CONSULT I had a virtual consult with Mr. Joe today. This consult was requested by Dr Timo E Ball DO for an opinion regarding gallbladder problems , and my final recommendations will be communicated to the requesting health care provider by way of the shared medical record for internal providers or letter via the [employer] for external providers. HISTORY: He had acute cholecystitis which was managed with rima tube. He also had an episode of jaundice that resolved without ERCP. Pain is located in RUQ Pain is dull/aching Pain severity is 1-2/10 Pain is non-radiating Pain is associated with certain foods Pain is worse with nothing Pain is better with nothing PAST MEDICAL HISTORY Diagnosis Date - Aortic valve regurgitation - Complete heart block (HCC) - Heart failure (HCC) 12/21/2016 BNP elevated 1670 - HTN (hypertension) - Mitral valve prolapse - Mitral valve regurgitation - Thrombocytopenia (HCC) 12/21/2016 - Trauma 11/14/2016 fell on iced stairs and bruised left thigh and scrotum - Tricuspid valve regurgitation PAST SURGICAL HISTORY Procedure Laterality Date - HERNIA REPAIR HX - PAST SURGICAL HISTORY OF 2006 PPM - REPAIR RETINAL DETACH, C FAMILY HISTORY Problem Relation Age of Onset - Heart Mother 79 - Hypertension Mother Social History Tobacco Use - Smoking status: Never Smoker Substance Use Topics - Alcohol use: Yes Comment: occasionally - Drug use: No Current Outpatient Medications Medication Sig Dispense Refill - digoxin (LANOXIN) 125 mcg (0.125 mg) tablet Take 0.125 mg by mouth once daily. - lisinopril 2.5 mg tablet Take 2.5 mg by mouth once daily. - metoprolol tartrate, short acting, (LOPRESSOR) 25 mg tablet Take 25 mg by mouth twice daily. Take one and a half tablets by mouth every morning and take one tablet by mouth every evening. - furosemide (LASIX) 40 mg tablet Take 40 mg by mouth once daily. - aspirin 81 mg chewable tablet 2 tablets once daily. 0 - oxyCODONE (ROXICODONE) 5 mg/5 mL oral solution Take 5-10 mL by mouth every 4 hours as needed. 0 - nystatin (MYCOSTATIN) 100,000 units/mL susp Take 5 mL by mouth four times daily. 0 - glycerin-witch diego 12.5-50 % pad Apply 1 Each to affected area as needed. 0 - Chlorhexidine Gluconate (PERIDEX) 0.12 % solution Use 15 mL as instructed every 6 hours. 0 - heparin 5,000 unit/0.5 mL syrg Inject 0.5 mL subcutaneously every 12 hours. 0 - pantoprazole (PROTONIX) 40 mg/20 mL 10 mL by ORAL/FEEDING TUBE route DAILY (6 AM). 0 - senna-docusate (SENNA-S) 8.6-50 mg per tablet Take 1 tablet by mouth twice daily. 0 - bisacodyl (DULCOLAX) 10 mg supp 1 Suppository by RECTAL route once daily as needed. 0 - melatonin 3 mg Take 2 tablets by mouth daily at bedtime. 0 - potassium chloride 10% liqd Take 30 mL by mouth three times daily. No current facility-administered medications for this visit. ALLERGIES No Known Allergies REVIEW OF SYSTEMS: PAIN ASSESSMENT: Negative for pain, history of chronic pain, or current treatment for a chronic pain condition. GENERAL: No weight loss, malaise or fevers RESPIRATORY: Negative for cough, hemoptysis, wheezing, COPD, dyspnea or shortness of breath CARDIOVASCULAR: Negative for chest pain, leg swelling, hypertension, CHF or palpitations GI: No nausea, vomiting, or diarrhea : No history of dysuria, frequency or incontinence MUSCULOSKELETAL: Negative for joint pain or swelling, back pain or muscle pain SKIN: Negative for lesions, rash, and itching ENDOCRINE: Negative for cold or heat intolerance, polyuria, polydipsia and goiter NEURO: No history of headaches, syncope, paralysis, seizures or tremors PHYSICAL FINDINGS OF NOTE: Patient reported height 182.9 cm and weight 96.3 kg General ? Normal, healthy, cooperative, in no acute distress Able to interact verbally by video conference Psych ? ORIENTATION: normal to time place, person and situation Mood/Affect: AFFECT AND MOOD: Normal Head/Neuro ? Normal size and shape Facial appearance normal Pulmonary ? respiratory effort normal Cardiovascular ? patient describes extremities normal, warm, no cyanosis,no clubbing and no edema Abdominal ? Not performed Skin ? abnormal lesions not visualized Motor ? patient seen sitting with Normal appearing strength and coordination REVIEWED ITEMS I reviewed the following available records: Hospital records, US, CT imaging IMPRESSION DATE OF EXAM: Dec 06 2019 ?9:01PM ? US ABD RIGHT UPPER QUADRANT ? PROCEDURE REASON: Cholelithiasis EXAMINATION: ? RIGHT UPPER QUADRANT ULTRASOUND CLINICAL HISTORY: 84-year-old man being evaluated for acute cholecystitis. TECHNIQUE: Sonography of the right upper quadrant ?was performed. ?Images were obtained and stored in (more content not included)... [facility] OPERATIVE REPORTon OPERATIVE REPORT NAME: SAMSON JOE MR#: [id number] SURGEON: Adrianna Geiger MD DATE OF SURGERY: 02/01/2021 OPERATIVE REPORT PREOPERATIVE DIAGNOSIS: End of life pacemaker pulse generator. POSTOPERATIVE DIAGNOSIS: End of life pacemaker pulse generator. PROCEDURE: Change out of end of life pacemaker pulse generator. 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 The area under the left clavicle was prepped and draped in the usual manner. A 2% xylocaine was used as local anesthesia. A horizontal incision was made and blunt dissection was carried out down to the level of the fibrous pocket covering the pacemaker. Oozing was controlled with electrocautery. The fibrous pocket was incised with a fresh #11 blade. The pulse generator was removed. The old pulse generator was then detached from the atrial and ventricular leads. A new pulse generator was immediately inserted. The new pulse generator is a [place] Accolade MRI safe pacemaker, model #L311 serial #[id number]. The pulse generator was attached to the appropriate leads and placed back in the pocket. A final check for oozing was made and any further oozing was again controlled with electrocautery. The subcutaneous tissues were then closed with a running suture of 2-0 Vicryl. The skin was closed with a running subcuticular suture of 3-0 Vicryl. Steri- Strips and a dry sterile dressing were applied and he was transferred back to his room in stable condition. He should be able to be discharged by the end of the day today. ADRIANNA GEIGER MD Yossi/[facility] CITYNaomi/[id number] E/S: Adrianna Geiger MD 02/08/21 0856 Electronically Signed [facility] PT NAME: SAMSON JOE MR#: [id number] [address] [place] [address] ACCT: [id number] : [birth year] [address] [facility] SURGon 02-01-[address] [facility] Comment on above: Result Comment: RUN DATE: 02/02/21 [facility] LAB *LIVE* PAGE 1RUN TIME: 1351 Specimen InquiryRUN USER: MEDITECH Name: HEATHSAMSON Farooq : [birth year] Sex:M Attend Dr: Adrianna Geiger [facility]#: [id number] Unit#: [id number] Status: [facility] Location: DeisyCAREY SiddiqiS17-01 Received: 02/01/21-1321 Status: PRIYANKA Patterson#: [id number]#: [id number] Collected: 02/01/21-[address] [facility] [address]: Adrianna Geiger: A. EXPLANTED HARDWARE MICROSCOPIC EXAM: N/A DIAGNOSIS: EXPLANTED HARDWARE, REMOVAL: - PULSE GENERATOR (GROSS DIAGNOSIS ONLY) Signed Signature on File KT SCHAFER 02/02/21 1351 [facility] Name: HEATHSAMSON [facility] Hosp Num: [id number] A Ministry of Age / Sex: 85/M [facility] Physician: Adrianna Geiger MD [address] [place] [address] Location: SAME DAY SURGERY END OF REPORT Performed By: #### P SURG ####Test performed at: [place] [address] [place] [address] Vital Signs Date Time Vital Sign Value Performing Clinician Facility 10-03-2023 13:45-0500 Body height 182.88 cm Timo Ball Other [facility] Other 10-03-2023 13:45-0500 Body mass index (BMI) [Ratio] 29.02 kg/m2 Timo Ball Other [facility] Other 10-03-2023 13:45-0500 Body weight 97.07 kg Timo Ball Other [facility] Other 10-03-2023 13:45-0500 Diastolic blood pressure 67 mm[Hg] Timo Ball Other [facility] Other 10-03-2023 13:45-0500 Respiratory rate 16 /min Timo Ball Other [facility] Other 10-03-2023 13:45-0500 Systolic blood pressure 106 mm[Hg] Timo Ball Other [facility] Other 09-29-2023 13:45-0400 Body height 182.88 cm Timo Ball Other [facility] Other 08-31-2023 11:00-0400 Body height 182.88 cm Timo Ball Other [facility] Other 08-31-2023 11:00-0400 Body mass index (BMI) [Ratio] 28.23 kg/m2 Timo Ball Other [facility] Other 08-31-2023 11:00-0400 Body weight 94.44 kg Timo Ball Other [facility] Other 08-31-2023 11:00-0400 Diastolic blood pressure 61 mm[Hg] Timo Ball Other [facility] Other 08-31-2023 11:00-0400 Respiratory rate 12 /min Timo Ball Other [facility] Other 08-31-2023 11:00-0400 Systolic blood pressure 105 mm[Hg] Timo Ball Other [facility] Other 05-26-2023 11:00-0400 Body height 182.88 cm Timo Ball Other [facility] Other 05-26-2023 11:00-0400 Body mass index (BMI) [Ratio] 28.69 kg/m2 Timo Ball Other [facility] Other 05-26-2023 11:00-0400 Body weight 95.98 kg Timo Ball Other [facility] Other 05-26-2023 11:00-0400 Diastolic blood pressure 66 mm[Hg] Timo Ball Other [facility] Other 05-26-2023 11:00-0400 Respiratory rate 16 /min Timo Ball Other [facility] Other 05-26-2023 11:00-0400 Systolic blood pressure 116 mm[Hg] Timo Ball Other [facility] Other 01-20-2023 11:00-0500 Body height 182.88 cm Timo Ball Other [facility] Other 01-20-2023 11:00-0500 Body mass index (BMI) [Ratio] 28.53 kg/m2 Timo Ball Other [facility] Other 01-20-2023 11:00-0500 Body weight 95.44 kg Timo Ball Other [facility] Other 01-20-2023 11:00-0500 Diastolic blood pressure 64 mm[Hg] Timo Ball Other [facility] Other 01-20-2023 11:00-0500 Respiratory rate 16 /min Timo Ball Other [facility] Other 01-20-2023 11:00-0500 Systolic blood pressure 102 mm[Hg] Timo Ball Other [facility] Other 09-21-2022 12:18-0400 Blood Pressure Location MARYBETH KENNETH [facility] 09-21-2022 12:18-0400 Diastolic blood pressure 58 mm[Hg] MARYBETH KENNETH [facility] 09-21-2022 12:18-0400 Heart rate 80 /min MARYBETH KENNETH [facility] 09-21-2022 12:18-0400 Respiratory rate 16 /min MARYBETH COOPER [facility] 09-21-2022 12:18-0400 Systolic blood pressure 111 mm[Hg] MARYBETH MOTARY [facility] 03-16-2022 08:49-0400 Blood Pressure Location MARYBETH COOPER [facility] [employer] 03-16-2022 08:49-0400 Diastolic blood pressure 65 mm[Hg] MARYBETH KENNETH [facility] [employer] 03-16-2022 08:49-0400 Heart rate 75 /min MARYBETH COOPER [facility] [employer] 03-16-2022 08:49-0400 Systolic blood pressure 93 mm[Hg] MARYBETH COOPER [facility] [employer] Encounters Encounter Date Encounter Type Care Provider Facility Start: 10-04-2023 End: 10-04-2023 ambulatory Timo Bar Other [facility] Other Start: 10-04-2023 Telephone encounter Timo Bar FP [facility] Start: 10-03-2023 End: 10-03-2023 ambulatory Timo Bar Other [facility] Other Start: 10-03-2023 Office outpatient vi sit 15 minutes Timo RAMIREZ [facility] Start: 09-29-2023 End: 09-29-2023 ambulatory Timo Bar Other [facility] Other Start: 09-29-2023 Nursing evaluation o f patient and report Timo Bar [facility] Start: 09-06-2023 End: 09-06-2023 ambulatory Timo Bar Other [facility] Other Start: 09-06-2023 Telephone encounter Timo Bar FP [facility] Start: 08-31-2023 End: 08-31-2023 ambulatory Timo Bar Other [facility] Other Start: 08-31-2023 Patient encounter procedure Timo Penny [facility] Start: 05-26-2023 End: 05-26-2023 ambulatory Timo Bar Other [facility] Other Start: 05-26-2023 Office outpatient vi sit 25 minutes Timo Penny [facility] Start: 05-02-2023 End: 05-02-2023 ambulatory [facility] Start: 04-17-2023 End: 04-17-2023 ambulatory [facility] Start: 01-20-2023 End: 01-20-2023 ambulatory Timo Bar Other [facility] Other Start: 01-20-2023 Office outpatient vi sit 25 minutes Timo Bar [facility] Start: 09-21-2022 End: 09-22-2022 ambulatory MARYBETH COOPER Facility: [facility] Start: 09-21-2022 End: 09-21-2022 Patient encounter procedure MARYBETH COOPER [facility] Start: 09-06-2022 End: 09-07-[address] TIMO BAR Facility:[facility] Start: 08-14-2022 End: 08-15-[address] TIMO BAR Facility:[facility] Start: 08-03-2022 End: 08-04-[address] TIMO BAR Facility:[facility] Start: 07-08-2022 End: 07-09-[address] TIMO BAR Facility:[facility] Start: 03-16-2022 End: 03-17-2022 ambulatory MARYBETHKOURTNEY COOPER Facility:[facility] Start: 03-16-2022 End: 03-16-2022 Patient encounter procedure MARYBETHVANI COOPER [facility] Start: 01-06-2022 End: 01-07-2022 ambulatory MARYBETHVANI COOPER Facility:[facility] Start: 01-05-2022 ambulatory MARYBETHVANI COOPER Facility :[facility] Start: 12-07-2018 Patient encounter procedure Facility:[id number] Start: 12-06-2018 Patient encounter procedure Facility:[id number] Procedures Date Procedure Procedure Detail Performing Clinician Start: 07-08-[address] KUSH BAR Comment on above: Performed By: #### U MICRO, ERUR #### [facility] [address] [place] [address] Dr. Kirk García Start: 07-28-2021 Cholecystectomy SHADIA COOPER Start: 11-27-2006 Colonoscopy MARYBETH GRAVES Start: 11-27-2004 Implantation of radi oactive seed into prostate MARYBETH COOPER Repair of right ingu inal hernia MARYBETH COOPER Transrectal biopsy o f prostate using ultrasound guidance MARYBETH COOPER Immunizations Immunization Date Immunization Notes Care Provider Dari pérez 09-29-2023 influenza, high dose seasonal, preservative-free Timo Bar Other [facility] Other 09-07-2022 influenza virus vaccine, split virus (incl. purified surface antigen) Timo Bar Other [facility] Other 04-26-2022 SARS-CoV-2 mRNA ([id number] se) vaccine MARYBETH KENNETH [facility] 09-02-2021 SARS-CoV-2 (COVID-19 ) mRNA BNT-162b2 vax MARYBETH KENNETH [facility] 08-18-2021 influenza virus vaccine, unspecified formulation MARYBETH KENNETH [facility] 08-13-2021 influenza virus vaccine, split virus (incl. purified surface antigen) Timo Bar Other [employer] Other 02-23-2021 SARS-CoV-2 (COVID-19 ) mRNA BNT-162b2 vax MARYBETH COOPER [facility] 02-03-2021 SARS-CoV-2 (COVID-19 ) mRNA BNT-162b2 vax MARYBETH COOPER [facility] Comment on above: Result Comment: 2021: [id number] 01-25-2021 SARS-CoV-2 (COVID-19 ) mRNA BNT-162b2 vax MARYBETHVAIN COOPER [facility] 08-31-2020 influenza virus vaccine, split virus (incl. purified surface antigen) Timo Bar Other [employer] Other 08-30-2019 influenza virus vaccine, split virus (incl. purified surface antigen) Timo Bar Other [employer] Other 08-30-2019 influenza virus vaccine, unspecified formulation MARYBETH MOTARY [facility] 08-29-2018 influenza virus vaccine, split virus (incl. purified surface antigen) Timo Bar Other [employer] Other 08-29-2018 influenza virus vaccine, unspecified formulation MARYBETH COOPER [facility] 08-03-2017 influenza virus vaccine, split virus (incl. purified surface antigen) Timo Bar Other [place] [employer] Other 08-03-2017 influenza virus vaccine, unspecified formulation MARYBETH COOPER [facility] 09-05-2016 influenza virus vaccine, split virus (incl. purified surface antigen) Timo Bar Other [employer] Other 09-05-2016 influenza virus vaccine, unspecified formulation MARYBETH COOPER [employer] [facility] 10-16-2015 pneumococcal conjuga te vaccine, 13 valent Timo Bar Other [employer] Other 09-01-2015 influenza virus vaccine, split virus (incl. purified surface antigen) Timo Penny Other [employer] Other 09-15-2014 tetanus and diphther ia toxoids, adsorbed, preservative free, for adult use (5 Lf of tetanus toxoid and 2 Lf of diphtheria toxoid) Timo Bar Other [employer] Other 08-27-2013 tetanus and diphther ia toxoids, adsorbed, preservative free, for adult use (5 Lf of tetanus toxoid and 2 Lf of diphtheria toxoid) Timo Bar Other [employer] Other 01-10-2007 pneumococcal polysaccharide vaccine, 23 valent Timo Bar Other [employer] Other 1999 pneumococcal polysaccharide vaccine, 23 valent MARYBETH COOPER [facility] Payers Date Payer Category Payer Unknown [id number] 1960 Medicare [id number] 1960 Unknown [id number] 1934 Unknown [id number] 2.16. [id number] 1934 Unknown [id number] 2.16. [id number] 1934 Unknown [id number] 2.16.8 [id number] 1934 Unknown [id number] 2.16.8 [id number] 1934 Unknown [id number] 2.16.8 [id number] 1934 Unknown [id number] 2.16.8 [id number] 1934 Unknown [id number] 2.16.8 [id number] 1934 Unknown [id number] 2.16.84 [id number] 1934 Unknown [id number] 2.16.84 [id number] 1934 Unknown [id number] 2.16.84 [id number] 1934 Unknown [id number] 2.16.84 [id number] Medicare [id number] Unknown [id number] 2.16.8 [id number] Social History Date Type Detail Facility Start: 03-16-2022 End: 09-21-2022 Tobacco smoking status Never smoked tobacco (finding) [facility] Tobacco smoking status Never [facility] Sex Assigned At Male [facility] Functional Status Date Assessment Result Facility 09-21-2022 Functional Status N/A [facility] Clinical Notes 07-28-2021 to 10-03-2023 Note Date & Type Note Facility 10-03-2023 Evaluation note Encounter Date Diagnosis Assessment Notes Sep, Acute idiopathic gout of left foot (ICD-10 - M10.072) Since his symptoms are rapidly improving, would not prescribe steroids, NSAIDs or Colchicine. Recommend rest, elevation and Voltaren Gel Handout for foods to avoid has been given to the patient He is instructed to notify office w/ recurrent symptoms Sep, Primary hypertension (ICD-10 - I10) This patient is instructed to consume a healthy, low-fat, low-salt diet. They are also encouraged to continue exercise to achieve/maint ain a normal BMI. [employer] Other 10-05-2023 Evaluation note* Encounter Date Diagnosis Assessment Notes Treatment Notes Treatment Clinical Notes Aug, Medicare annual wellness visit, subsequent (ICD-10 - Z00.00) Personalized health advice was given to the beneficiary including a written plan for screenings discussed and provided. Advanced care planning reviewed and/or information given as requested. Additional counseling was provided here today in regards to, [ ]. The above visit was performed by [ ], under direct supervision of [ ]. Document reviewed and amended by provider signed below. 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 They are instructed to continue exercise and AHA diet plan. Aug, HFrEF (heart failure with reduced ejection fraction) (ICD-10 - I50.20) ECHO: LVEF 35-40%, RVSP 48, ABELINO, MVR, TVR - 04/2023 Instructed on low salt diet, exercise and daily weights. Instructed to notify office for any unexpected weight gain > 3lbs and/or increased dyspnea, difficulty breathing during sleep, worsening lower extremity swelling, chest pain or lightheadedness. Reviewed GDMT w/ beta blockers, JAQUAN/ARB/ARNI, MRA and SGLT-2 Aug, Essential hypertension (ICD-10 - I10) This patient is instructed to consume a healthy, low-fat, low-salt diet. They are also encouraged to continue exercise to achieve/maintain a normal BMI. Aug, Paroxysmal atrial fibrillation (ICD-10 - I48.0) This patient is in NSR or rate controlled. This patient is anticoagulated to prevent thromboembolic events. They are maintaining regular scheduled appts with their groundwater consultant. No bleeding complications Aug, Chronic venous insufficiency (ICD-10 - I87.2) Avoid salt and elevate lower extremities, support stockings, inspect legs and feet daily for blisters and ulcerations. Aug, Second degree heart block (ICD-10 - I44.1) PM in place, f/u with Cardiology Aug, History of prostate cancer (ICD-10 - Z85.46) No s/s recurrence. 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 Fixed on HR 70 and now settings changed to increase HR per demand. He has noticed improved endurance. Denies CP, Orthopnea or palpitations Apr, HFrEF (heart failure with reduced ejection fraction) (ICD-10 - I50.20) ECHO: LVEF 35-40%, RVSP 48, ABELINO, MVR, TVR - 04/2023 Instructed on low salt diet, exercise and daily weights. Instructed to notify office for any unexpected weight gain > 3lbs and/or increased dyspnea, difficulty breathing during sleep, worsening lower extremity swelling, chest pain or lightheadedness. Reviewed GDMT w/ beta blockers, JAQUAN/ARB/ARNI, MRA and SGLT-2 Apr, Essential hypertension (ICD-10 - I10) This patient is instructed to consume a healthy, low-fat, low-salt diet. They are also encouraged to continue exercise to achieve/maintain a normal BMI. Apr, Paroxysmal atrial fibrillation (ICD-10 - I48.0) This patient is in NSR or rate controlled. This patient is anticoagulated to prevent thromboembolic events. They are maintaining regular scheduled appts with their groundwater consultant. No bleeding complications Apr, Chronic venous insufficiency (ICD-10 - I87.2) Avoid salt and elevate lower extremities, support stockings, inspect legs and feet daily for blisters and ulcerations. Apr, Second degree heart block (ICD-10 - I44.1) PM inserted, routine PM checks / [facility] Apr, History of prostate cancer (ICD-10 - Z85.46) No s/s recurrence. No active treatment at this time. [employer] Other 05-22-2023 NoteCardiovascular Medicine [facility] SUBJECTIVE Chief Complaint Patient presents with [facility] HPI Samson Joe is a 87 y.o. male here as a new patient. 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 Denies any complaints or changes. BP at home running 110-120s/70s, HR 70s He denies c/o CP, dyspnea at rest or exertion, orthopnea, PND, dizziness/LH, palpitations, bleeding issues. Diet: no specific diet modifications, drinking mainly water Exercise: none currently Tobacco: denies ETOH: rare Recreational drug use: denies No Known Allergies Patient Active Problem List Diagnosis Acute nontraumatic kidney injury (CMS/HCC) Anemia Aortic valve disorders Aortic valve regurgitation Atrial fibrillation (CMS/HCC) Calculus of gallbladder without cholecystitis without obstruction Chronic congestive heart failure (CMS/HCC) Chronic kidney disease Complete heart block (CMS/HCC) Essential hypertension Gram-negative sepsis, unspecified (CMS/HCC) History of atrial fibrillation History of maze procedure History of malignant neoplasm of skin History of tracheostomy Left ventricular dysfunction Moderate protein malnutrition (CMS/HCC) Other specified postprocedural states Presence of cardiac pacemaker Pulmonary hypertension (CMS/HCC) Respiratory failure (CMS/HCC) Right ventricular diastolic dysfunction Right-sided heart failure (CMS/HCC) Thrombocytopenia (CMS/HCC) SSS (sick sinus syndrome) (CMS/HCC) Benign hypertensive heart disease with heart failure (CMS/HCC) History reviewed. No pertinent past medical history. Past Surgical History: Procedure Laterality Date MITRAL VALVE REPAIR 2017 With tricuspid valve repair and CAMERON exclusion with clip No family history on file. Social History Tobacco Use Smoking status: Never Smokeless tobacco: Never ROS OBJECTIVE Visit Vitals BP 124/74 (BP Location: Left arm, Patient Position: Sitting, BP Cuff Size: Adult) Pulse 71 Ht 1.854 m (6' 1 ) Wt 96.5 kg (212 lb 12.8 oz) SpO2 96% BMI 28.08 kg/m??? Smoking Status Never BSA 2.23 m??? Medications: Current Outpatient Medications: aspirin 81 mg chewable tablet, Chew 81 mg in the morning., Disp: , Rfl: digoxin (Lanoxin) 125 MCG tablet, Take 125 mcg by mouth in the morning., Disp: , Rfl: furosemide (Lasix) 40 mg tablet, Take 40 mg by mouth in the morning., Disp: , Rfl: lisinopril 2.5 mg tablet, Take 2.5 mg by mouth in the morning., Disp: , Rfl: metoprolol tartrate (Lopressor) 25 mg tablet, Take 25 mg by mouth in the morning and at bedtime. 1.5 tablets in the AM and 1 tablet in the PM, Disp: , Rfl: Physical Exam Constitutional: Appearance: Normal appearance. He is normal weight. HENT: Head: Normocephalic and atraumatic. Right Ear: External ear normal. Left Ear: External ear normal. Eyes: Extraocular Movements: Extraocular movements intact. Pupils: Pupils are equal, round, and reactive to light. Neck: Vascular: No carotid bruit. Cardiovascular: Rate and Rhythm: Normal rate. Rhythm irregular. Pulses: Normal pulses. Heart sounds: Normal heart sounds. Pulmonary: Effort: Pulmonary effort is normal. Breath sounds: Normal breath sounds. Abdominal: General: Bowel sounds are normal. Palpations: Abdomen is soft. Musculoskeletal: General: Normal range of motion. Cervical back: Neck supple. Right lower le+ Edema present. Left lower le+ Edema present. Skin: General: Skin is warm and dry. Neurological: General: No focal deficit present. Mental Status: He is alert and oriented to person, place, and time. Psychiatric: Mood and Affect: Mood normal. Behavior: Behavior normal. Thought Content: Thought content normal. Judgment: Judgment normal. Labs: 09/06/2022 Hgb 11.7, plt 153 Cr 1.54, BUN 28, K 4.7, Na 138, eGFR 43 07/08/2022 Cr 1.43, BUN 29, K 4.4, Na 135, eGFR 47 Dig 1.1 Testing/Procedures: ECHO 12/03/2019 Mildly reduced LV systolic function Normal RV systolic function Biatrial enlargement Bioprosthetic mitral valve with mild mitral regurg Mild to moderate aortic regurg ASSESSMENT/PLAN: Diagnosis Plan 1. Chronic systolic congestive heart failure (CMS/HCC) 2. Longstanding persistent atrial fibrillation (CMS/HCC) 3. SSS (sick sinus syndrome) (CMS/[facility]) 4. Presence of cardiac pacemaker 5. Benign hypertensive heart disease with heart failure ([facility]) 6. Chronic kidney disease, unspecified CKD stage #Chronic systolic heart failure -Last ECHO was in 2019 which noted mildly reduced systolic function. Prior records reviewed, hx of EF of 30-35%. -He denies any changes in sx's but he does not some issues with leg swelling. His legs are bigger than the average person but he has noted his feet have been puffier lately. -Will ob (more content not included)...[facility] 04-17-2023 NotePatient is here today to establish care Review of Systems HENT: Positive for ear discharge. Eyes: Positive for vision loss in left eye and vision loss in right eye. Respiratory: Positive for cough. All other systems reviewed and are negative.[facility] 01-20-2023 Evaluation note* Encounter Date Diagnosis Assessment Notes Treatment Notes Treatment Clinical Notes Dec, Essential hypertension (ICD-10 - I10) This patient is instructed to consume a healthy, low-fat, low-salt diet. They are also encouraged to continue exercise to achieve/maintain a normal BMI. Dec, Paroxysmal atrial fibrillation (ICD-10 - I48.0) This patient is in NSR or rate controlled. This patient is anticoagulated to prevent thromboembolic events. They are maintaining regular scheduled appts with their groundwater consultant. 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 Dec, HFrEF (heart failure with reduced ejection fraction) (ICD-10 - I50.20) Continue GDMT. No s/s CHF, euvolemic. Dec, Chronic venous insufficiency (ICD-10 - I87.2) Avoid salt and elevate lower extremities, support stockings, inspect legs and feet daily for blisters and ulcerations. Dec, Second degree heart block (ICD-10 - I44.1) f/u pacemaker checks q 6 mo. Needs new Oil Gauger, suggest [facility] here in [place] Dec, History of prostate cancer (ICD-10 - Z85.46) No s/s recurrence [employer] Other 10-26-2022 Hospital Discharge instructions Patient Education 09/21/2022 12:37:02 Prostate Cancer Prostate Cancer The prostate is a walnut-sized gland that is involved in the production of semen. It is located below a man's bladder, in front of the rectum. Prostate cancer is the abnormal growth of cells in the prostate gland. What are the causes? The exact cause of this condition is not known. What increases the risk? This condition is more likely to develop in men who: Are older than age 65. Are -Malian. Are obese. Have a family history of prostate cancer. Have a family history of breast cancer. What are the signs or symptoms? Symptoms of this condition include: A need to urinate often. Weak or interrupted flow of urine. Trouble starting or stopping urination. Inability to urinate. Pain or burning during urination. Painful ejaculation. Blood in urine or semen. Persistent pain or discomfort in the lower back, lower abdomen, hips, or upper thighs. Trouble getting an erection. Trouble emptying the bladder all the way. How is this diagnosed? This condition can be diagnosed with: A digital rectal exam. For this exam, a health care provider inserts a gloved finger into the rectum to feel the prostate gland. A blood test called a prostate-specific antigen (PSA) test. An imaging test called transrectal ultrasonography. A procedure in which a sample of tissue is taken from the prostate and examined under a microscope (prostate biopsy). Once the condition is diagnosed, tests will be done to determine how far the cancer has spread. This is called staging the cancer. Staging may involve imaging tests, such as: A bone scan. A CT scan. A PET scan. An MRI. The stages of prostate cancer are as follows: Stage I. At this stage, the cancer is found in the prostate only. The cancer is not visible on imaging tests and it is usually found by accident, such as during a prostate surgery. Stage II. At this stage, the cancer is more advanced than it is in stage I, but the cancer has not spread outside the prostate. Stage III. At this stage, the cancer has spread beyond the outer layer of the prostate to nearby tissues. The cancer may be found in the seminal vesicles, which are near the bladder and the prostate. Stage IV. At this stage, the cancer has spread other parts of the body, such as the lymph nodes, bones, bladder, rectum, liver, or lungs. How is this treated? Treatment for this condition depends on several factors, including the stage of the cancer, your age, personal preferences, and your overall health. Talk with your health care provider about treatment options that are recommended for you. Common treatments include: Observation for early stage prostate cancer (active surveillance). This involves having exams, blood tests, and in some cases, more biopsies. For some men, this is the only treatment needed. Surgery. Types of surgeries include: ?Open surgery. In this surgery, a larger incision is made to remove the prostate. ?A laparoscopic prostatectomy. This is a surgery to remove the prostate and lymph nodes through several, small incisions. It is often referred to as a minimally invasive surgery. ?A robotic prostatectomy. This is a surgery to remove the prostate and lymph nodes with the help ofa robotic arm that is controlled by a computer. ?Orchiectomy. This is a surgery to remove the testicles. ?Cryosurgery. This is a surgery to freeze and destroy cancer cells. Radiation treatment. Types of radiation treatment include: ?External beam radiation. This type aims beams of radiation from outside the body at the prostate to destroy cancerous cells. ?Brachytherapy. This type uses radioactive needles, seeds, wires, or tubes that are implanted into the prostate gland. Like external beam radiation, brachytherapy destroys cancerous cells. An advantage is that this type of radiation limits the damage to surrounding tissue and has fewer side effects. High-intensity, focused ultrasonography. This treatment destroys cancer cells by delivering high-energy ultrasound waves to the cancerous cells. Chemotherapy medicines. This treatment kills cancer cells or stops them from multiplying. Hormone treatment. This treatment involves taking medicines that act on one of the male hormones (testosterone): ?By stopping your body from producing testosterone. ?By blocking testosterone from reaching cancer cells. Follow these instructions at home: Take [id number] and prescription medicines only as told by your health care provider. Maintain a healthy diet. Get plenty of sleep. Consider joining a support group for men who have prostate cancer. Meeting with a support group mayhelp you learn to cope with the stress of having cancer. Keep all follow-up visits as told by your health care provider. This is important. If you have to go to the hospital, notify your cancer specialist (oncologist). Treatment for prostate cancer may affect sexual function. Continue to have intimate moments with your partner. This may include touching, holding, hugging, and caressing. Contact a health care provider if: You have trouble urinating. You have blood in your urine. You have pain in your hips, back, or chest. Get help right away if: You have weakness or numbness in your legs. You cannot control urination or your bowel movements (incontinence). You have trouble breathing. You have sudden chest pain. You have chills or a fever. Summary The prostate is a walnut-sized gland that is involved in the production of semen. It is located below a man's bladder, in front of the rectum. Prostate cancer is the abnormal growth of cells in the prostate gland. Treatment for this condition depends on several factors, including the stage of the cancer, your age, personal preferences, and your overall health. Talk with your health care provider about treatment options that are recommended for you. Consider joining a support group for men who have prostate cancer. Meeting with a support group mayhelp you learn to cope with the stress of having cancer. This information is not intended to replace advice given to you by your health care provider. Make sure you discuss any questions you have with your health care provider. Document Released: 11/13/2006 Document Revised: 10/26/2018 Document Reviewed: 07/24/2017 [employer] Patient Education 2020 [employer]. Follow Up Care 03/16/2022 09:37:24 With:KENNETH SHEPARD MARYBETH Farooq, URL Address: [id number] [place] [address] [phone] When: only if needed [facility] Jacki 04-20-2022 Hospital Discharge instructions Patient Education 03/16/2022 09:55:18 Prostate Cancer Prostate Cancer The prostate is a walnut-sized gland that is involved in the production of semen. It is located below a man's bladder, in front of the rectum. Prostate cancer is the abnormal growth of cells in the prostate gland. What are the causes? The exact cause of this condition is not known. What increases the risk? This condition is more likely to develop in men who: Are older than age 65. Are -Malian. Are obese. Have a family history of prostate cancer. Have a family history of breast cancer. What are the signs or symptoms? Symptoms of this condition include: A need to urinate often. Weak or interrupted flow of urine. Trouble starting or stopping urination. Inability to urinate. Pain or burning during urination. Painful ejaculation. Blood in urine or semen. Persistent pain or discomfort in the lower back, lower abdomen, hips, or upper thighs. Trouble getting an erection. Trouble emptying the bladder all the way. How is this diagnosed? This condition can be diagnosed with: A digital rectal exam. For this exam, a health care provider inserts a gloved finger into the rectum to feel the prostate gland. A blood test called a prostate-specific antigen (PSA) test. An imaging test called transrectal ultrasonography. A procedure in which a sample of tissue is taken from the prostate and examined under a microscope (prostate biopsy). Once the condition is diagnosed, tests will be done to determine how far the cancer has spread. This is called staging the cancer. Staging may involve imaging tests, such as: A bone scan. A CT scan. A PET scan. An MRI. The stages of prostate cancer are as follows: Stage I. At this stage, the cancer is found in the prostate only. The cancer is not visible on imaging tests and it is usually found by accident, such as during a prostate surgery. Stage II. At this stage, the cancer is more advanced than it is in stage I, but the cancer has not spread outside the prostate. Stage III. At this stage, the cancer has spread beyond the outer layer of the prostate to nearby tissues. The cancer may be found in the seminal vesicles, which are near the bladder and the prostate. Stage IV. At this stage, the cancer has spread other parts of the body, such as the lymph nodes, bones, bladder, rectum, liver, or lungs. How is this treated? Treatment for this condition depends on several factors, including the stage of the cancer, your age, personal preferences, and your overall health. Talk with your health care provider about treatment options that are recommended for you. Common treatments include: Observation for early stage prostate cancer (active surveillance). This involves having exams, blood tests, and in some cases, more biopsies. For some men, this is the only treatment needed. Surgery. Types of surgeries include: ?Open surgery. In this surgery, a larger incision is made to remove the prostate. ?A laparoscopic prostatectomy. This is a surgery to remove the prostate and lymph nodes through several, small incisions. It is often referred to as a minimally invasive surgery. ?A robotic prostatectomy. This is a surgery to remove the prostate and lymph nodes with the help ofa robotic arm that is controlled by a computer. ?Orchiectomy. This is a surgery to remove the testicles. ?Cryosurgery. This is a surgery to freeze and destroy cancer cells. Radiation treatment. Types of radiation treatment include: ?External beam radiation. This type aims beams of radiation from outside the body at the prostate to destroy cancerous cells. ?Brachytherapy. This type uses radioactive needles, seeds, wires, or tubes that are implanted into the prostate gland. Like external beam radiation, brachytherapy destroys cancerous cells. An advantage is that this type of radiation limits the damage to surrounding tissue and has fewer side effects. High-intensity, focused ultrasonography. This treatment destroys cancer cells by delivering high-energy ultrasound waves to the cancerous cells. Chemotherapy medicines. This treatment kills cancer cells or stops them from multiplying. Hormone treatment. This treatment involves taking medicines that act on one of the male hormones (testosterone): ?By stopping your body from producing testosterone. ?By blocking testosterone from reaching cancer cells. Follow these instructions at home: Take arak-hyh-bjienjj and prescription medicines only as told by your health care provider. Maintain a healthy diet. Get plenty of sleep. Consider joining a support group for men who have prostate cancer. Meeting with a support group mayhelp you learn to cope with the stress of having cancer. Keep all follow-up visits as told by your health care provider. This is important. If you have to go to the hospital, notify your cancer specialist (oncologist). Treatment for prostate cancer may affect sexual function. Continue to have intimate moments with your partner. This may include touching, holding, hugging, and caressing. Contact a health care provider if: You have trouble urinating. You have blood in your urine. You have pain in your hips, back, or chest. Get help right away if: You have weakness or numbness in your legs. You cannot control urination or your bowel movements (incontinence). You have trouble breathing. You have sudden chest pain. You have chills or a fever. Summary The prostate is a walnut-sized gland that is involved in the production of semen. It is located below a man's bladder, in front of the rectum. Prostate cancer is the abnormal growth of cells in the prostate gland. Treatment for this condition depends on several factors, including the stage of the cancer, your age, personal preferences, and your overall health. Talk with your health care provider about treatment options that are recommended for you. Consider joining a support group for men who have prostate cancer. Meeting with a support group mayhelp you learn to cope with the stress of having cancer. This information is not intended to replace advice given to you by your health care provider. Make sure you discuss any questions you have with your health care provider. Document Released: 11/13/2006 Document Revised: 10/26/2018 Document Reviewed: 07/24/2017 [employer] Patient Education globa.ly. Follow Up Care 01/28/2022 16:02:47 With:MARYBETH COOPER PA-C, URL Address: [address] [place] [address] Business (1) When:6 months [facility] NoteHNO ID: [id number] Author: Jewel Cary III, MD Service: ? Author Type: Physician Type: Progress Notes Filed: 08/17/2021 9:33 AM Note Text: This patient is post op from laparoscopic cholecystectomy. He has had no symptoms. P.E. The wounds are healing well without evidence of infection. I reviewed the pathology report with Samson. Assessment Satisfactory course Plan: Return to office PRN. Jewel Cary III, [facility]09-01-2021 NoteHNO ID: [id number] Author: Jaspal Phipps APRN.EDGE GRINDER MACHINE Service: Anesthesiology Author Type: Nurse Customer Service Operator Type: Anesthesia Procedure Notes Filed: 07/28/2021 10:50 AM Note Text: ANESTHESIOLOGY PROCEDURE NOTE Airway General Information Procedure Start Time/Medication Administration: 07/28/2021 10:40 AM Patient location during procedure: OR Patient identity confirmed: arm band and patient Staffing Anesthesiologist: Ramiro Esquivel MD EDGE GRINDER MACHINE: Jaspal Phipps APRN.EDGE GRINDER MACHINE Performed by: EDGE GRINDER MACHINE Indications and Patient Condition Preoxygenated: yes Patient position: sniffing Difficult Mask: No Indications for airway management: anesthesia anesthesia circuit Method: asleep Final Airway Details Final airway type: endotracheal airway Final Endotracheal Airway: ETT Cuffed: yes Successful intubation technique: direct laryngoscopy Endotracheal tube insertion site: oral Blade: Jenny Blade size: #4 ETT size (mm): 7.0 Measured from: lips Measurement (cm): 22 Placement verified by: capnometry Cormack-Lehane Classification: grade IIa - partial view of glottis Number of attempts at approach: 1 Airway not difficult Comments Subglottic resistance with 7.5 ETT, changed to 7.0 ETT-no difficulty. SIGNATURE: Jaspal Phipps APRN.EDGE GRINDER MACHINE PATIENT NAME: Samson Joe DATE: July 28, 2021 TIME: 10:48 AM CSN: [id number] Future Appointments Appointment Date:09/21/2022 10:00:00 AM Scheduled Provider:MARYBETH COOPER PA-C Location: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 Medical History Pressure injury of right buttock , stage 1 Medical History Gallstone pancreatitis Medical History Chronic systolic heart failure Medical History History of prostate cancer Medical History Chronic venous insufficiency Medical History Cardiac pacemaker Medical History Non-rheumatic mitral regurgitati on Surgical History cholecystectomy 07/28/2021 Surgical History CYSTOSCOPY 04/2020 Surgical History INCISION OF GALLBLADDER 11/2029 Hospitalization History see surgical history [employer] Other Hospital course Narrative No data available for this section [facility] [employer] progress note No data available for this section [facility] [employer] Summary Purpose Family History No Family History Records FoundNo Family History Records FoundNo Family History Records FoundNo Family History Records FoundNo Family History Records FoundNo Family History Records FoundNo Family History Records FoundNo Family History Records Found Advance Directives No Advanced Directives Records FoundNo Advanced Directives Records FoundNo Advanced Directives Records FoundNo Advanced Directives Records FoundNo Advanced Directives Records FoundNo Advanced Directives Records FoundNo Advanced Directives Records FoundNo Advanced Directives Records Found Additional Source Comments (unrecognized sect ion and content) No Status Records FoundNo Status Records FoundNo Status Records FoundNo Status Records FoundNo Status Records FoundNo Status Records FoundNo Status Records FoundNo Status Records Found INFORMATION SOURCE (unrecogn ized section and content) DATE CREATED AUTHOR 12/17/2018 [facility] DATE CREATED AUTHOR AUTHOR'S ORGANIZ ATION 07/31/2021 [facility] DATE CREATED AUTHOR AUTHOR'S ORGANIZ ATION 07/31/2021 [facility] DATE CREATED AUTHOR AUTHOR'S ORGANIZ ATION 12/24/2021 [facility] DATE CREATED AUTHOR AUTHOR'S ORGANIZ ATION 12/26/2021 [facility] DATE CREATED AUTHOR AUTHOR'S ORGANIZ ATION 09/22/2022 [facility] DATE CREATED AUTHOR AUTHOR'S ORGANIZ ATION 10/05/2022 [facility] DATE CREATED AUTHOR AUTHOR'S ORGANIZ ATION 05/07/2023 [facility] Patient Care team arlene n (unrecognized section and content) Personnel Name: TIMO BAR DO Address: Address: [address] [place] [address] REASON FOR VISIT (unrecogniz ed section and content) 6 MONTH FOLLOW UP4 MONTH FOL LOW UPWellnessLab resultsflu shotankle/foot swellingRefill FOR RECORDS PERTAINING TO PATIENTS WHO ARE OR HAVE BEEN ENROLLED IN A CHEMICAL DEPENDENCY/SUBSTANCEABUSE PROGRAM, SOME INFORMATION MAY BE OMITTED. This clinical summary was aggregated from multiple sources. Caution should be exercised in using it in the provision of clinical care. This summary normalizes information from multiple sources, and as a consequence, information in this document may materially change the coding, format and clinical context of patient data. In addition, data may be omitted in some cases. CLINICAL DECISIONS SHOULD BE BASED ON THE PRIMARY CLINICAL RECORDS. [facility] [employer] provides no warranty or guarantee of the accuracy or completeness of information in this document.
--- NOTE | 2023-11-16 10:18 | P.PN_ITS ---
<Statement entered by Heriberto Fiore MD - 11/17/23 05:17> Was with pt waling in [place] an dO2 sats to 85-86 % on RA - improved to mid 90% on O2 Overal improving pt seen and examined - agrre with maribell schwartz of care from [facility] This documentation has been reviewed and approved. Progress Note: Subjective Subjective Interval history: 11/16/23 0835 Patient is sitting up in bed awaiting breakfast. He denies any acute complaints and reports improved SOB. He had moderate urine output overnight and his O2 supplementation was titrated down to 1L overnight. His renal function improved overnight despite higher diuretic dosing and is within his baseline range today. As his CXR today reveals slightly worsened vascular congestion, we will increase his IVP lasix dosing and consult cardiology. A 2D Echo has been ordered and will be done later today. Exam Constitutional Vital Signs, click to edit/add: Last Vital Signs Temp 97.2 F L 11/16/23 04:37 Pulse 77 11/16/23 09:55 Resp 16 11/16/23 09:29 BP 100/52 11/16/23 09:29 Pulse Ox 95 11/16/23 07:42 O2 Del Method Nasal Cannula 11/16/23 07:42 O2 Flow Rate 1 11/16/23 07:42 Common normals: no apparent distress, oriented x3 and alert General appearance: cooperative Orientation/consciousness: Yes awake HENNV Common normals: normocephalic, head/scalp atraumatic and hearing grossly normal bilaterally Eye Common normals: PERRL, EOMs intact bilaterally, conjunctivae normal and no scleral icterus General eye: normal appearance of both eyes Chest Common normals: inspection of chest normal Chest: symmetrical chest wall rise Respiratory Common normals: normal respiratory effort and no use of accessory muscles Effort & inspection: able to speak in complete sentences Auscultation: wheezes (EE scattered throughout) and diminished lung sounds (BLL, rales resolved) Cardio Common normals: regular rate, regular rhythm, S1 normal heart sound, no murmurs and peripheral pulses 2+ throughout Heart sounds: normal, physiologic split S2 Peripheral pulses: pulses 2+ throughout GI Common normals: Normal to inspection, nondistended, normoactive bowel sounds present, soft to palpation, non-tender and no hepatosplenomegaly Bladder/kidney exam: bladder normal to palpation Extremity Common normals: normal to inspection and no calf tenderness General: edema (BLE knees to toes 2+, improved); no clubbing and no cyanosis Neuro Common normals: CN's II-XII intact bilaterally, moves all extremities, no focal motor deficits and no sensory deficits noted Psych Common normals: mental status grossly normal Progress Note: Objective Labs Labs: Short CBC 11/15/23 11/16/23 Range/Units 12:10 05:08 WBC 4.5 4.2 (4.0-11.0) 10^3/uL Hgb 10.9 L 10.0 L (14.0-18.0) g/dL Hct 33.7 L 31.6 L (42.0-54.0) % Plt Count 94 L 91 L (150-450) 10^3/uL BMP 11/15/23 11/16/23 12:10 05:08 Sodium 137 136 Potassium 4.5 4.3 Chloride 101 101 Carbon Dioxide 29.3 27.5 BUN 55.0 H 51.0 H Creatinine 1.68 H 1.56 H Glucose 116 H 89 Calcium 9.7 9.1 Liver Function 11/15/23 11/16/23 Range/Units 12:10 05:08 Total Bilirubin 1.4 H 1.4 H (0.2-1.0) mg/dL AST 13 L 10 L (15-37) U/L ALT 28 26 (16-63) U/L Alkaline Phosphatase 111 109 (46-116) U/L Albumin 3.2 L 2.9 L (3.4-5.0) g/dL Progress Note: A&P Assessment and Plan (1) Acute exacerbation of CHF (congestive heart failure): Assessment and Plan: ACUTE * Mod urine output overnight, worsening vascular congestion on CXR * Hypoxia mildly improved - see ac resp failure * Renal fx improved despite diuretic administration * At baseline CKD 3a/b range today * Daily CMP to monitor renal function w/ high dose diuretics * Increase IVP Lasix to 80 mg BID * Daily weights * Strict I&O * Daily BNP to monitor trend * BNP sl improved at 2372, down from 2630 in ED * Repeat 2D Echo today * Last Echo 05/02/23 - LVEF 35-40% w/ global hypokinesis, MV ring repair, s/p tricuspid repair, Mod to Severe biatrial dilatation * Consult cardiology - We appreciate their assistance with this pt's care * 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 usual training representative, Dr Duran, has retired * Needs to re-establish w/ cardiology, especially in light of acute worsening of HFrEF * See resp failure below Qualifiers: Heart failure type: systolic Qualified Code(s): I50.23 - Acute on chronic systolic (congestive) heart failure (2) Acute respiratory failure with hypoxia: Assessment and Plan: ACUTE * 2/2 acute CHF exac (HFrEF) w/ pulmonary vasc congestion * 95% on 1L during exam today - titrated down from 2L overnight * O2 sat 84% on RA on arrival to the ED * Pt does not require O2 at baseline * O2 supplementation to keep sats above 90% * Duonebs PRN for shortness of breath or wheezing * Considered scheduled treatments pending clinical course * Pt w/ mild EE wheezing on exam - no hx of tobacco abuse or COPD * OPEP (3) Generalized weakness: Assessment and Plan: ACUTE * 2/2 acute illness * PT/OT consults for eval and treat * Consider SNF placement at discharge pending clinical course (4) CKD (chronic kidney disease) stage 3, GFR 30-59 ml/min: Assessment and Plan: CHRONIC * CKD 3a/b at baseline * Baseline labs: BUN 28-50, CR 1.43-1.56, eGFR 42-47 * Slight improvement of renal function on labs today despite high dose diuretic admin - within baseline range * BUN 57, Cr 1.56, eGFR 42 * Continue to hold home ACEi for now - BP soft w/ diuretic admin and kidney function at risk of worsening (renal toxicity) * Monitor renal function closely w/ high dose IV diuretic administration * Daily CMP Qualifiers: Chronic kidney disease stage 3 subtype: unspecified whether 3a or 3b Qualified Code(s): N18.30 - Chronic kidney disease, stage 3 unspecified (5) Paroxysmal A-fib: Assessment and Plan: CHRONIC * HR well controlled - Vpaced rhythm on EKG * Continue home metoprolol and digoxin for rate control * Pt not on anticoagulation at baseline * Possibly had maze procedure during valve repair surgery per pt report but he is not sure * Tele monitoring (6) HTN (hypertension): Assessment and Plan: CHRONIC * Continue home metoprolol - hold for SBP < 100 or HR < 55 * Hold home ACEi for now Qualifiers: Hypertension type: primary hypertension Qualified Code(s): I10 - Essential (primary) hypertension (7) Anemia: Assessment and Plan: CHRONIC * 2/2 CKD (anemia of chronic disease) * Check FOB to r/o slow GI bleeding - pending * Not on anticoagulation * Continue home low dose ASA for now * CBC daily Qualifiers: Anemia type: due to chronic kidney disease Chronic kidney disease stage: stage 3 (moderate) Chronic kidney disease stage 3 subtype: unspecified whether 3a or 3b Qualified Code(s): N18.30 - Chronic kidney disease, stage 3 unspecified; D63.1 - Anemia in chronic kidney disease (8) OAB (overactive bladder): Assessment and Plan: CHRONIC * Continue home oxybutynin for now * Monitor for urinary retention - low threshold to hold (9) 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
--- NOTE | 2023-11-16 10:18 | PM.PN ---
Progress Note: Subjective Subjective Interval history: 11/16/23 0835 Patient is sitting up in bed awaiting breakfast. He denies any acute complaints and reports improved SOB. He had moderate urine output overnight and his O2 supplementation was titrated down to 1L overnight. His renal function improved overnight despite higher diuretic dosing and is within his baseline range today. As his CXR today reveals slightly worsened vascular congestion, we will increase his IVP lasix dosing and consult cardiology. A 2D Echo has been ordered and will be done later today. Exam Constitutional Vital Signs, click to edit/add: Last Vital Signs Temp 97.2 F L 11/16/23 04:37 Pulse 77 11/16/23 09:55 Resp 16 11/16/23 09:29 BP 100/52 11/16/23 09:29 Pulse Ox 95 11/16/23 07:42 O2 Del Method Nasal Cannula 11/16/23 07:42 O2 Flow Rate 1 11/16/23 07:42 Common normals: no apparent distress, oriented x3 and alert General appearance: cooperative Orientation/consciousness: Yes awake HENMT Common normals: normocephalic, head/scalp atraumatic and hearing grossly normal bilaterally Eye Common normals: PERRL, EOMs intact bilaterally, conjunctivae normal and no scleral icterus General eye: normal appearance of both eyes Chest Common normals: inspection of chest normal Chest: symmetrical chest wall rise Respiratory Common normals: normal respiratory effort and no use of accessory muscles Effort & inspection: able to speak in complete sentences Auscultation: wheezes (EE scattered throughout) and diminished lung sounds (BLL, rales resolved) Cardio Common normals: regular rate, regular rhythm, S1 normal heart sound, no murmurs and peripheral pulses 2+ throughout Heart sounds: normal, physiologic split S2 Peripheral pulses: pulses 2+ throughout GI Common normals: Normal to inspection, nondistended, normoactive bowel sounds present, soft to palpation, non-tender and no hepatosplenomegaly Bladder/kidney exam: bladder normal to palpation Extremity Common normals: normal to inspection and no calf tenderness General: edema (BLE knees to toes 2+, improved); no clubbing and no cyanosis Neuro Common normals: CN's II-XII intact bilaterally, moves all extremities, no focal motor deficits and no sensory deficits noted Psych Common normals: mental status grossly normal Progress Note: Objective Labs Labs: Short CBC 12/20/23 12/21/23 Range/Units 12:10 05:08 WBC 4.5 4.2 (4.0-11.0) 10^3/uL Hgb 10.9 L 10.0 L (14.0-18.0) g/dL Hct 33.7 L 31.6 L (42.0-54.0) % Plt Count 94 L 91 L (150-450) 10^3/uL BMP 11/15/23 11/16/23 12:10 05:08 Sodium 137 136 Potassium 4.5 4.3 Chloride 101 101 Carbon Dioxide 29.3 27.5 BUN 55.0 H 51.0 H Creatinine 1.68 H 1.56 H Glucose 116 H 89 Calcium 9.7 9.1 Liver Function 11/15/23 11/16/23 Range/Units 12:10 05:08 Total Bilirubin 1.4 H 1.4 H (0.2-1.0) mg/dL AST 13 L 10 L (15-37) U/L ALT 28 26 (16-63) U/L Alkaline Phosphatase 111 109 (46-116) U/L Albumin 3.2 L 2.9 L (3.4-5.0) g/dL Progress Note: A&P Assessment and Plan (1) Acute exacerbation of CHF (congestive heart failure): Assessment and Plan: ACUTE Mod urine output overnight, worsening vascular congestion on CXR Hypoxia mildly improved - see ac resp failure Renal fx improved despite diuretic administration At baseline CKD 3a/b range today Daily CMP to monitor renal function w/ high dose diuretics Increase IVP Lasix to 80 mg BID Daily weights Strict I&O Daily BNP to monitor trend BNP sl improved at 2372, down from 2630 in ED Repeat 2D Echo today Last Echo 05/02/23 - LVEF 35-40% w/ global hypokinesis, MV ring repair, s/p tricuspid repair, Mod to Severe biatrial dilatation Consult cardiology - We appreciate their assistance with this pt's care 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 assembler, Dr Duran, has 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 Needs to re-establish w/ cardiology, especially in light of acute worsening of HFrEF See resp failure below Qualifiers: Heart failure type: systolic Qualified Code(s): I50.23 - Acute on chronic systolic (congestive) heart failure (2) Acute respiratory failure with hypoxia: Assessment and Plan: ACUTE 2/2 acute CHF exac (HFrEF) w/ pulmonary vasc congestion 95% on 1L during exam today - titrated down from 2L overnight O2 sat 84% on RA on arrival to the ED Pt does not require O2 at baseline O2 supplementation to keep sats above 90% Duonebs PRN for shortness of breath or wheezing Considered scheduled treatments pending clinical course Pt w/ mild EE wheezing on exam - no hx of tobacco abuse or COPD OPEP (3) Generalized weakness: Assessment and Plan: ACUTE 2/2 acute illness PT/OT consults for eval and treat Consider SNF placement at discharge pending clinical course (4) CKD (chronic kidney disease) stage 3, GFR 30-59 ml/min: Assessment and Plan: CHRONIC CKD 3a/b at baseline Baseline labs: BUN 28-50, CR 1.43-1.56, eGFR 42-47 Slight improvement of renal function on labs today despite high dose diuretic admin - within baseline range BUN 57, Cr 1.56, eGFR 42 Continue to hold home ACEi for now - BP soft w/ diuretic admin and kidney function at risk of worsening (renal toxicity) Monitor renal function closely w/ high dose IV diuretic administration Daily CMP Qualifiers: Chronic kidney disease stage 3 subtype: unspecified whether 3a or 3b Qualified Code(s): N18.30 - Chronic kidney disease, stage 3 unspecified (5) Paroxysmal A-fib: Assessment and Plan: CHRONIC HR well controlled - Vpaced rhythm on EKG Continue home metoprolol and digoxin for rate control Pt not on anticoagulation at baseline Possibly had maze procedure during valve repair surgery per pt report but he is not sure Tele monitoring (6) HTN (hypertension): Assessment and Plan: CHRONIC Continue home metoprolol - hold for SBP < 100 or HR < 55 Hold home ACEi for now Qualifiers: Hypertension type: primary hypertension Qualified Code(s): I10 - Essential (primary) hypertension (7) Anemia: Assessment and Plan: CHRONIC 2/2 CKD (anemia of chronic disease) Check FOB to r/o slow GI bleeding - pending Not on anticoagulation Continue home low dose ASA for now CBC daily Qualifiers: Anemia type: due to chronic kidney disease Chronic kidney disease stage: stage 3 (moderate) Chronic kidney disease stage 3 subtype: unspecified whether 3a or 3b Qualified Code(s): N18.30 - Chronic kidney disease, stage 3 unspecified; D63.1 - Anemia in chronic kidney disease (8) OAB (overactive bladder): Assessment and Plan: CHRONIC Continue home oxybutynin for now Monitor for urinary retention - low threshold to hold (9) Thrombocytopenia: Assessment and Plan: CHRONIC 2/2 CKD Monitor w/ CBC daily
--- NOTE | 2023-11-16 10:35 | CM.NOTE ---
Rounds made with Dr. Fiore, echo and consult for cardiology. PT and OT to evaluate pt today. Case Management will follow for discharge needs.
--- NOTE | 2023-11-16 14:53 | CM.NOTE ---
Discussed with patient PT recommendations for home health. Reviewed CMS five star ratings for home health companies and left copy for patient. Pt. states he has had [facility] in the past and would prefer them again, especially since his primary care doctor, Dr. Bar is affiliated with [facility]. [employer] Supervisor Brianna to initiate this referral.
--- NOTE | 2023-11-16 14:58 | CM.NOTE ---
Clinical sent to [facility] via fax for new referral.
--- NOTE | 2023-11-16 15:42 | CM.NOTE ---
Reviewed important message of medicare with the patient and patient voiced understanding of his Medicare rights and signed the form. Original copy given to patient and copy placed on the chart.
[2023-11-16] MEDS: FUROSEMIDE 40 MG/4 ML VIAL 80 MG IVP (16:46)
--- NOTE | 2023-11-16 16:56 | P.CACN_ITS ---
History of Present Illness History of Present Illness Consult date: 11/16/23 Requesting physician: Rosenda Ramirez Consult reason: congestive heart failure Chief complaint: SHORTNESS OF BREATH Pulmonary Congestion Hypoxia Narrative: This is an 88-year-old patient with a past medical history as outlined below including history of mitral valve and tricuspid valve repair, permanent pacemaker placement, paroxysmal A-fib, HFrEF (LVEF 35 to 40% 05/02/2023) [s/p MAZE procedure and CAMERON clip in 2017], and hypertension who presented to the ED complaining of 2-3-day course of worsening Shortness of breath. He denies any chest pain, nausea, vomiting, or diarrhea. He notes increased peripheral edema and weight of 7 pounds in the last 3 days. Last night when he was taking a shower he noted that he was quite short of breath with minimal activity and has that persisted today presented to the ER for further evaluation. Workup in the ED revealed elevated BNP (2630), mildly worsened renal function from baseline CKD 3 AA, chest x-ray findings consistent with pulmonary vascular congestion, and significant hypoxia on arrival of 84% on room air. Serial troponins x 2 were unremarkable. He is being admitted as an inpatient to the hospitalist service for acute CHF exacerbation with acute hypoxic respiratory failure. Patient seen and examined at bedside. He states he is feeling better today. His dyspnea is improving. He has some continued leg swelling. He remains on O2 at 1L. He does not wear O2 at home. He reports recently more frozen meals than not, he has been averaging about 1 frozen meal a day. He cooks for himself and often finds it hard to make meals. He denies CP, palpitations, dizziness/LH, syncope. Review of Systems ROS Status of ROS 10 or more systems reviewed and unremark able except as noted in history and below Cardiovascular Reports: edema, swelling of feet/ankles and shortness of breath with exertion Respiratory Reports: shortness of breath [facility] Medical History (Updated 11/16/23 @ 10:43 by Rosenda Ramirez NP) Thrombocytopenia ?D69.6 - Thrombocytopenia, unspecified (ICD-10) OAB (overactive bladder) ?N32.81 - Overactive bladder (ICD-10) Anemia ?D64.9 - Anemia, unspecified (ICD-10) HFrEF (heart failure with reduced ejection fraction) ?I50.20 - Unspecified systolic (congestive) heart failure (ICD-10) Atherosclerotic heart disease of [place] coronary artery without angina pectoris ?I25.10 - Atherosclerotic heart disease of [place] coronary artery without angina pectoris (ICD-10) CKD (chronic kidney disease) stage 3, GFR 30-59 ml/min ?N18.30 - Chronic kidney disease, stage 3 unspecified (ICD-10) Paroxysmal A-fib ?I48.0 - Paroxysmal atrial fibrillation (ICD-10) Retinal detachment ?H33.20 - Serous retinal detachment, unspecified eye (ICD-10) HTN (hypertension) ?I10 - Essential (primary) hypertension (ICD-10) Prostate CA ?C61 - Malignant neoplasm of prostate (ICD-10) Pacemaker ?Z95.0 - Presence of cardiac pacemaker (ICD-10) Surgical History (Updated 11/15/23 @ 15:48 by Rosenda Ramirez NP) Hx of inguinal hernia repair ?Z98.890 - Other specified postprocedural states (ICD-10) ?Z87.19 - Personal history of other diseases of the digestive system (ICD-10) History of permanent cardiac pacemaker placement ?Z95.0 - Presence of cardiac pacemaker (ICD-10) History of tricuspid valve repair ?Z98.890 - Other specified postprocedural states (ICD-10) H/O mitral valve repair ?Z98.890 - Other specified postprocedural states (ICD-10) Family History (Updated 11/15/23 @ 15:37 by Keyla Wilson) Mother Family history of CHF (congestive heart failure) Family history of hypertension Sister Family history of cancer Social History (Updated 11/15/23 @ 15:38 by Keyla Wilson) Within the past year, how often did you have a drink containing alcohol: never Score interpretation: A score less than 4 is consistent with normal alcohol consumption. Smoking status: Never smoker Non-prescribed substance use: denies use Previous occupational history: [employer] Highest level of school completed/degree received: high school graduate Are you now , , , , never or living with a partner: never In a typical week, how many times do you talk on the telephone with family, friends, or neighbors: once per week How often do you get together with friends or relatives: once per week How often do you attend methodist or faith services: never Do you belong to any clubs or organizations such as methodist groups unions, fraternal or athletic groups, or school groups: no Total score: 0 Score interpretation: A score of less than or equal to 1 indicates the most socially isolated. Meds Home Medications and Allergies Home Medications Medication Instructions Recorded Confirmed Type aspirin 81 mg tablet,delayed 81 mg PO DAILY 11/15/23 11/15/23 History release (Janice Low Dose Aspirin) digoxin 125 mcg (0.125 mg) tablet 0.125 mg PO Q24H 11/15/23 11/15/23 History furosemide 40 mg tablet 40 mg PO Q24H 11/15/23 11/15/23 History lisinopril 2.5 mg tablet 2.5 mg PO Q24H 11/15/23 11/15/23 History metoprolol tartrate 25 mg tablet 25 mg PO QPM 11/15/23 11/15/23 History metoprolol tartrate 25 mg tablet 37.5 mg PO QAM 11/15/23 11/15/23 History oxybutynin chloride 5 mg 5 mg PO Q24H 11/15/23 11/15/23 History tablet,extended release 24 hr Allergies Allergy/AdvReac Type Severity Reaction Status Date / Time No Known Drug Allergies Allergy Verified 11/15/23 11:33 Exam Constitutional Vital Signs, click to edit/add: Last Vital Signs Temp 97.5 F L 11/16/23 14:34 Pulse 81 11/16/23 15:54 Resp 18 11/16/23 14:34 BP 108/60 11/16/23 16:49 Pulse Ox 91 L 11/16/23 14:34 O2 Del Method Nasal Cannula 11/16/23 14:34 O2 Flow Rate 1 11/16/23 14:34 Documenting provider has reviewed patient's vital signs: yes Common normals: no apparent distress, oriented x3 and alert General appearance: cooperative and comfortable Orientation/consciousness: Yes awake HENMT Common normals: normocephalic and head/scalp atraumatic Nose: external nose normal External ear: external ears normal Eye Common normals: EOMs intact bilaterally and conjunctivae normal Neck & C-Spine Common normals: full ROM and supple Chest Common normals: inspection of chest normal Respiratory Common normals: normal respiratory effort, no retractions and no use of accessory muscles Effort & inspection: audible wheezes Cardio Common normals: regular rate, regular rhythm, S1 normal heart sound, S2 normal heart sound and no murmurs GI Common normals: Normal to inspection, nondistended, normoactive bowel sounds present Extremity General: edema (BLE +1-2 edema) Results Labs and Meds Lab results: Cardiac Enzymes 11/16/23 Range/Units 05:08 AST 10 L (15-37) U/L CBC 11/16/23 Range/Units 05:08 WBC 4.2 (4.0-11.0) 10^3/uL RBC 2.93 L (4.70-6.10) 10^6/uL Hgb 10.0 L (14.0-18.0) g/dL Hct 31.6 L (42.0-54.0) % Plt Count 91 L (150-450) 10^3/uL Neut # (Auto) 2.6 (1.4-6.5) 10^3/uL Lymph # (Auto) 0.9 L (1.2-3.8) 10^3/uL [place] # (Auto) 0.6 (0.3-0.8) 10^3/uL Eos # (Auto) 0.1 (0.0-0.7) 10^3/uL Baso # (Auto) 0.0 (0.0-0.1) 10^3/uL Comprehensive Metabolic Panel 11/16/23 Range/Units 05:08 Sodium 136 (136-145) mmol/L Potassium 4.3 (3.5-5.1) mmol/L Chloride 101 (98-107) mmol/L Carbon Dioxide 27.5 (21.0-32.0) mmol/L BUN 51.0 H (7.0-18.0) mg/dL Creatinine 1.56 H (0.70-1.30) mg/dL Glucose 89 (74-106) mg/dL Calcium 9.1 (8.5-10.1) mg/dL AST 10 L (15-37) U/L ALT 26 (16-63) U/L Alkaline Phosphatase 109 (46-116) U/L Total Protein 6.9 (6.4-8.2) g/dL Albumin 2.9 L (3.4-5.0) g/dL Intake and Output 11/16/23 11/16/23 11/16/23 07:59 15:59 23:59 Intake Total 200 / 760 Output Total 1400 / 2400 1375 / 1600 225 / 1600 Balance -1200 / -1640 -1375 / -1600 -225 / -1600 Intake: Oral 200 / 760 Output: Urine 1400 / 2400 1375 / 1600 225 / 1600 Other: Weight 93.4 kg Imaging and Cardiology Echo: report reviewed (EF 35-40%, D-shaped septum consistent with RV pressure and/or volume overload. The distal inferior wall is akinetic, moderately elevated right sided pressures) Assessment and Plan Assessment and Plan (1) Acute exacerbation of CHF (congestive heart failure): Qualifiers: Heart failure type: systolic Qualified Code(s): I50.23 - Acute on chronic systolic (congestive) heart failure (2) Acute respiratory failure with hypoxia: (3) Generalized weakness: (4) CKD (chronic kidney disease) stage 3, GFR 30-59 ml/min: Qualifiers: Chronic kidney disease stage 3 subtype: unspecified whether 3a or 3b Qualified Code(s): N18.30 - Chronic kidney disease, stage 3 unspecified (5) Paroxysmal A-fib: (6) HTN (hypertension): Qualifiers: Hypertension type: primary hypertension Qualified Code(s): I10 - Essential (primary) hypertension (7) Anemia: Qualifiers: Anemia type: due to chronic kidney disease Chronic kidney disease stage: stage 3 (moderate) Chronic kidney disease stage 3 subtype: unspecified whether 3a or 3b Qualified Code(s): N18.30 - Chronic kidney disease, stage 3 unspecified; D63.1 - Anemia in chronic kidney disease (8) OAB (overactive bladder): (9) Thrombocytopenia: Plan #Acute on chronic HFrEF, EF 35-40% -ECHO today shows evidence of fluid overload along with increased vascular congestion seen on CXR this AM. -Agree with increasing diuretic regimen to 80mg IV BID. Increase to TID if needed. Keep close follow-up on renal function. Maintain K+ >4, mag >2. -Monitor daily weights and strict I/Os. Maintain 1.5L fluid restriction while inpatient and 2L fluid restriction at home. -Discussed with patient, he has not been adhering to a low Na+ diet. He has been eating frozen meals often or adding Na+ to foods. He will need a pourer bull ladle consultation. -GDMT: he is currently on metoprolol tartrate, this will need to be converted to succinate at discharge. Resume lisinopril as soon as renal function stabilizes. Recommend adding an SGLT2i such as Farxiga 10mg daily or Jardiance 10mg daily once his renal function normalizes. This will also be beneficial for his CKD. Resume lasix 40mg daily at discharge. -Follow-up BMP in 1 week after discharge. 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 Will continue this plan given his age and anemia. -Continue digoxin 125mcg daily. Will check dig level. #HTN -controlled He will need F/U with [facility] in 1-2 weeks after discharge. Mali Calvin APRN-[employer] [facility] Cardiovascular Medicine
--- NOTE | 2023-11-16 19:39 | RESP.RT ---
No PRN breathing tx given. Pt denies need. No respiratory distress noted.
[2023-11-16] MEDS: METOPROLOL TARTRATE 25 MG TABLET PO (21:52)
[2023-11-17] VITALS (12 sets, daily range): BP systolic 100–105; BP diastolic 64–65; PULSE 75–98; RESP 18; TEMP 36.4; O2SAT 2–93; BMI 27.4
--- NOTE | 2023-11-17 04:00 | XR_ITS ---
The [address] [address] Patient Name: REINA JOE MRN: [id number] date: 1935 Sex: M Assigned Patient Location: [place] Current Patient Location: Accession/Order Number: [id number] Exam Date: 11/17/2023 06:08 Report Date: 11/17/2023 07:37 At the request of: JORDIN GARY Procedure: XR chest 1V CLINICAL HISTORY: SOB. EXAMINATION: Portable AP upright chest: 11/17/2023 at 0540 hours. COMPARISON: Portable AP chest: 11/16/2023. FINDINGS: The patient is slightly rotated, kyphotic. The visualized soft tissues appear intact. The patient is status post sternotomy. There is a left atrial appendage clip. The trachea remains midline. The heart size remains enlarged. The aorta slightly tortuous. There is a calcified glomus in the left lower lobe. There are low volumes with increased interstitial markings without discrete infiltrates, pleural effusions or pneumothorax. XR/XR chest 1V IMPRESSION: 1. Stable cardiomegaly. 2. Mild background interstitial edema, without discrete focal consolidating infiltrates. Electronically authenticated by: JENNIFER LOCKETT Date: 11/17/2023 07:37
[2023-11-17 05:18] LABS: Basophils Percent Auto 0.4 % (0.2-2.0); Eosinophils Absolute Auto 0.1 10^3/uL (0.0-0.7); Eosinophils Percent Auto 1.9 % (0.9-7.0); Hematocrit 33.8 % (42.0-54.0); Hemoglobin 10.8 g/dL (14.0-18.0); Immature Granulocytes Abs Auto 0.01 10^3/uL (0.00-0.03); Immature Granulocytes Pct Auto 0.2 % (0.0-0.5); Lymphocytes Absolute Auto 0.8 10^3/uL (1.2-3.8); Lymphocytes Percent Auto 17.3 % (20.5-60.0); Mean Corpuscular Hemoglobin 34.2 pg (25.9-34.0); Monocytes Absolute Auto 0.8 10^3/uL (0.3-0.8); Monocytes Percent Auto 17.3 % (1.7-12.0); Neutrophils Percent Auto 62.9 % (43.0-75.0); Platelet Count 92 10^3/uL (150-450); Red Blood Count 3.16 10^6/uL (4.70-6.10); Red Cell Distribution Width 14.6 % (11.0-15.0); White Blood Count 4.8 10^3/uL (4.0-11.0)
[2023-11-17 05:46] LABS: Alanine Aminotransferase 22 U/L (16-63); Albumin Globulin Ratio 0.7; Alkaline Phosphatase 107 U/L (46-116); Anion Gap 8.9; Aspartate Amino Transferase 8 U/L (15-37); BUN Creatinine Ratio 31.2; Bilirubin Total 1.6 mg/dL (0.2-1.0); Calcium 9.2 mg/dL (8.5-10.1); Carbon Dioxide 32.1 mmol/L (21.0-32.0); Chloride 99 mmol/L (98-107); Estimated GFR (African America 45 (>=60); Estimated GFR (Non-African Ame 37 (>=60); Globulin 4.3 g/dL; Glucose 96 mg/dL (74-106); Sodium 136 mmol/L (136-145); Total Protein 7.3 g/dL (6.4-8.2)
[2023-11-17] MEDS: FUROSEMIDE 40 MG/4 ML VIAL IVP (08:35)
[2023-11-17] MEDS: METOPROLOL TARTRATE 25 MG TABLET 37.5 MG PO (08:52)
[2023-11-17] MEDS: ASPIRIN 81 MG TABLET.DR PO (08:52)
[2023-11-17] MEDS: OXYBUTYNIN CHLORIDE 5 MG TAB XL PO (08:52)
[2023-11-17] MEDS: HEPARIN SODIUM (PORCINE) 5,000 UNIT/ML VIAL 5000 UNIT SUBQ (08:52)
[2023-11-17] MEDS: DIGOXIN 125 MCG TABLET PO (08:52)
--- NOTE | 2023-11-17 10:45 | CM.NOTE ---
Rounds made with marina Ty for patient to discharge to home today.
--- NOTE | 2023-11-17 11:25 | CM.NOTE ---
Patient on RA, nurse states no need for home oxygen.
--- NOTE | 2023-11-17 11:27 | CM.NOTE ---
[facility] will accept patient.
--- NOTE | 2023-11-17 12:10 | P.DS_ITS ---
<Statement entered by Heriberto Fiore MD - 11/19/23 07:30> Pt seen and examined in room. Pt sitting up in bed, denies dyspnea - diod have some mild hypoxia with ambulation but recovered very quickly - pt feels back to normal self Agree with PE, input and diagnosis and plan of Care This documentation has been reviewed and approved. DS: Providers Provider Date of admission: 11/15/23 15:17 Primary care physician: Timo Bar DO Consults: 11/15/23 15:18 Occupational Therapy Eval and Treat Routine Reason for consultation: gen weakness Has provider been notified: No Physical Therapy Eval and Treat Routine Reason for consultation: gen weakness Has provider been notified: No 11/16/23 10:12 Consult to Cardiology Routine Reason for consultation: HFrEF acute exac Has provider been notified: No 11/16/23 17:22 Consult to Dietitian Routine Reason For Exam: heart failure Reason for consultation: heart failure - Needs education on heart failure diet Has provider been notified: No 11/17/23 08:06 Consult to Dietitian Routine Reason For Exam: Assistance w/ meal planning Reason for consultation: Cardiac/low Na diet Has provider been notified: No Discharging clinician: Rosenda Ramirez DS: Diagnosis Discharge Diagnosis (1) Acute exacerbation of CHF (congestive heart failure): Qualifiers: Heart failure type: systolic Qualified Code(s): I50.23 - Acute on chronic systolic (congestive) heart failure (2) Acute respiratory failure with hypoxia: (3) Generalized weakness: (4) CKD (chronic kidney disease) stage 3, GFR 30-59 ml/min: Qualifiers: Chronic kidney disease stage 3 subtype: unspecified whether 3a or 3b Qualified Code(s): N18.30 - Chronic kidney disease, stage 3 unspecified (5) Paroxysmal A-fib: (6) HTN (hypertension): Qualifiers: Hypertension type: primary hypertension Qualified Code(s): I10 - Essential (primary) hypertension (7) Anemia: Qualifiers: Anemia type: due to chronic kidney disease Chronic kidney disease stage: stage 3 (moderate) Chronic kidney disease stage 3 subtype: unspecified whether 3a or 3b Qualified Code(s): N18.30 - Chronic kidney disease, stage 3 unspecified; D63.1 - Anemia in chronic kidney disease (8) OAB (overactive bladder): (9) Thrombocytopenia: DS: Summary Hospital Course Hospital Course: Patient was admitted to observation for acute CHF exacerbation with associated acute respiratory failure with hypoxia. He was treated with IVP Lasix twice daily dosing with good urine output throughout the course of his stay. He was seen in consult by cardiology and a 2D echo was obtained. His echo revealed stable LVEF of 35 to 40% with global hypokinesis, unchanged from previous echo in April although formal interpretation of the study by cardiology is still pending. The patient was able to be weaned off of O2 supplementation after adequate diuresis. His renal function began to bump up by the end of his stay and IV Lasix was discontinued. Per cardiology recommendations he has been discharged home with his usual home dosage of Lasix. Cardiology recommends patient's beta-srping be converted from metoprolol to tartrate to metoprolol wall ccinate and that Farxiga be added for further renal protection. We defer to the patient's PCP for final decision on these medication recommendations. Patient's home lisinopril was held due to soft BPs with high-dose diuretics and risk for renal injury. As his renal function is not yet back to baseline at the time of discharge we are continuing to hold lisinopril. A 2L fluid restriction was rec ommended by cardiology. The patient should obtain a BMP within a week after discharge and we defer to his PCP when lisinopril should be resumed based on those results. He is being discharged home in stable condition on room air and should follow-up with his PCP in 5 to 7 days and with cardiology in 1 to 2 weeks. - Cardiology recommends converting metoprolol tartrate to succinate and adding SGLT2i to home med regimen - defer to PCP - Resume lisinopril once renal function normalizes Time Spent with Patient Time attestation: Total time spent providing and/or coordinating discharge services: Time spent: greater than 30 minutes Specific discharge activities: Physical exam, discussion of discharge plan, questions answered. Exam Constitutional Vital Signs, click to edit/add: Last Vital Signs Temp 97.5 F L 11/17/23 05:17 Pulse 98 H 11/17/23 10:00 Resp 18 11/17/23 08:14 BP 105/65 11/17/23 08:35 Pulse Ox 90 L 11/17/23 11:17 O2 Del Method Room Air 11/17/23 11:17 O2 Flow Rate 1 11/17/23 05:17 Common normals: no apparent distress, oriented x3 and alert General appearance: cooperative Orientation/consciousness: Yes awake HENMT Common normals: normocephalic and head/scalp atraumatic Eye Common normals: PERRL, EOMs intact bilaterally, conjunctivae normal and no scleral icterus Neck & C-Spine Common normals: no JVD Respiratory Common normals: normal respiratory effort and no use of accessory muscles Effort & inspection: able to speak in complete sentences and symmetric chest movement Auscultation: rales (Faint BLL- improving) and wheezes (Faint scattered EE) Cardio Common normals: no JVD, regular rate, S1 normal heart sound, S2 normal heart sound, no murmurs and peripheral pulses 2+ throughout Rhythm: abnormal rhythm irregularly irregular GI Common normals: Normal to inspection, nondistended, normoactive bowel sounds present, soft to palpation and non-tender Bladder/kidney exam: bladder normal to palpation Extremity Common normals: normal to inspection, full ROM and normal capillary refill General: edema (BLE shins to toes - Tr-1+, Improved); no clubbing and no cyanosis Neuro Common normals: moves all extremities, no focal motor deficits and no sensory deficits noted Speech: speech normal Psych Common normals: mental status grossly normal and activity/motor behavior normal DS: Data Data Completed and Pending Labs on day of discharge: Labs from last 24 hours 11/17/23 04:54 WBC 4.8 RBC 3.16 L Hgb 10.8 L Hct 33.8 L MCV 107.0 H MCH 34.2 H MCHC 32.0 RDW 14.6 Plt Count 92 L MPV 11.0 Neut % (Auto) 62.9 Lymph % (Auto) 17.3 L [place] % (Auto) 17.3 H Eos % (Auto) 1.9 Baso % (Auto) 0.4 Neut # (Auto) 3.0 Lymph # (Auto) 0.8 L [place] # (Auto) 0.8 Eos # (Auto) 0.1 Baso # (Auto) 0.0 Abs Immat Gran (auto) 0.01 Imm/Tot Granulo (auto) 0.2 Sodium 136 Potassium 4.0 Chloride 99 Carbon Dioxide 32.1 H Anion Gap 8.9 BUN 54.0 H Creatinine 1.73 H Est GFR ( Amer) 45 L Est GFR (Non-Af Amer) 37 L BUN/Creatinine Ratio 31.2 Glucose 96 Calcium 9.2 Total Bilirubin 1.6 H AST 8 L ALT 22 Alkaline Phosphatase 107 NT-Pro-B Natriuret Pep 2344.0 H* Total Protein 7.3 Albumin 3.0 L Globulin 4.3 Albumin/Globulin Ratio 0.7 Discharge Plan Discharge Disposition: Home Health Service Condition: Fair Discharge Medications: Continued oxybutynin chloride 5 mg tablet extended release 24hr 5 mg PO Q24H digoxin 125 mcg (0.125 mg) tablet 0.125 mg PO Q24H aspirin [Janice Low Dose Aspirin] 81 mg tablet,delayed release (DR/EC) 81 mg PO DAILY metoprolol tartrate 25 mg tablet 37.5 mg PO QAM furosemide 40 mg tablet 40 mg PO Q24H metoprolol tartrate 25 mg tablet 25 mg PO QPM Held lisinopril 2.5 mg tablet 2.5 mg PO Q24H Hold Instructions: Until OK with PCP based on renal function Activity: increase activity as tolerated Diet: advance to your usual diet Patient Instructions: Heart Failure (DC), Heart Healthy Diet (DC) Activity Restrictions/Additional Instructions: - 2L fluid restriction daily - Cardiology recommends converting metoprolol tartrate to succinate and adding SGLT2i to home med regimen - defer to PCP - Resume lisinopril once renal function normalizes Logistics Intern/Residential Tech Instructions: [facility] [phone] Forms: Portal Instructions Follow Up Appointments: @ 3:30pm with Dr. Bar [phone] please have your doctor order labs to monitor your kidney function at your follow up appointment follow up with [facility] @ [facility] on 11/29/22 @ 2:30 pm. [phone] Discharge Date/Time: 11/17/23 13:43
--- NOTE | 2023-11-17 12:55 | PT.DAILY ---
Physical Therapy Daily Note PT Daily Note/Assess Start: 11/17/23 12:51 Freq: Status: Active Protocol: Document 11/17/23 09:55 FILEMON (Rec: 11/17/23 12:55 MAAMEHULICHA [id number]) Physical Therapy Daily Note/Assessment Time In/Time Out Time In 09:55 Time Out 10:10 Subjective Subjective Patient agrees to therapy and ambulation this date. Reports feeling much better; now on room air. Has to stay one more night due to kidney function per patient. Therapeutic Activity Time Therapeutic Activity Minutes (minutes) 15 Therapeutic Activity Units 1 Therapeutic Activity Treatment Chair Transfer Ability Independent Therapeutic Activity Comments Patient was up Independent in room when RADIOTELEPHONE TECHNICAL OPERATOR enters. SPO2 was 88 percent. Had patient sit for breathing exercises and warm up exercises with SPO2 up to 94 percent within 30 seconds. Gait 300 ft. without AD Supervision. SPO2 85 percent post gait. Cool down/ breathing exercises and SPO2 back to 93 percent again within 30 seconds. Total Physical Therapy Time Total Therapy Minutes 15 Total Physical Therapy Units 1 Summary Daily Note Summary Improved ability with ambulation. SPO2 does decreased with gait on room air, but rebounds within 30 seconds when focued on deep breathing exercises. Overall mild fatigue post PT session today.
--- NOTE | 2023-11-23 12:17 | CM.NOTE ---
[facility] called and need discharge summary and CRF re-faxed. Clinical faxed.
== END 2023-11-17 13:43 | disposition home health service (06) | DRG 291 ==
LOC: ER 14:29 → MS 16:04
PROVIDERS: Admitting Provider Family Medicine; Emergency Provider Emergency Medicine; PCP Internal Medicine; Visit Provider Nurse Practitioner
DX: I13.0 Hypertensive heart and chronic kidney disease with heart failure and stage 1 through stage 4 chronic kidney disease, or unspecified chronic kidney disease (principal); I50.23 Acute on chronic systolic (congestive) heart failure; J96.01 Acute respiratory failure with hypoxia; E44.1 Mild protein-calorie malnutrition; N18.30 Chronic kidney disease, stage 3 unspecified; D69.59 Other secondary thrombocytopenia; Z66 Do not resuscitate; I48.0 Paroxysmal atrial fibrillation; D63.1 Anemia in chronic kidney disease; N32.81 Overactive bladder; I25.10 Atherosclerotic heart disease of native coronary artery without angina pectoris; Z68.27 Body mass index [BMI] 27.0-27.9, adult; Z79.899 Other long term (current) drug therapy; Z82.49 Family history of ischemic heart disease and other diseases of the circulatory system; Z85.46 Personal history of malignant neoplasm of prostate; Z91.118 Patient's noncompliance with dietary regimen for other reason; Z79.82 Long term (current) use of aspirin; Z95.0 Presence of cardiac pacemaker
CPT/HCPCS: 36415; 71045; 80053; 80162; 83880; 84484; 85007; 85025; 85027; 93005; 93308; 93356; 94640; 94667; 94668; 94761; 96372; 96374; 96376; 97161; 97165; 97530; 99285

== ENCOUNTER 2023-12-03 10:45 | Observation (INO) | payer MEDICARE, OTHER, SELFPAY ==
[2023-12-03] VITALS (26 sets, daily range): BP systolic 106–114; BP diastolic 66–78; PULSE 68–89; RESP 18–32; TEMP 36.3–36.6; O2SAT 88–100; BMI 27.8; BMI 28.2
--- OUTSIDE RECORDS SUMMARY | 2023-12-03 10:55 | XMS_ITS | CCD ---
Author Name Unknown Address [address] [place] [address] Organization [facility] Care Team Providers Care Boiler Washer Name Role Phone TIMO BAR Primary Care Physician MARYBETH COOPER Attending Unavailable KENNETH, MARYBETH Trivedi [...] PENNY, DR MARRUFO Attending Unavailable PENNY, DR MRARUFO Primary Care Unavailable PENNY, DR MARRUFO Consulting Unavailable PENNY, DR MARRUFO Admitting Unavailable PENNY, DR MARRUFO Attending Unavailable PENNY, DR MARRUFO Primary Care Unavailable PENNY, DR MARRUFO Consulting Unavailable PENNY, DR MARRUFO Primary Care Unavailable MAIRAN, DR ZACH Scott Admitting Unavailable MARIAN, DR AZCH Scott Attending Unavailable MARIAN, DR ZACH Scott [...] Refills(s) 0 Start Date: 01/06/22 Status: Ordered dapagliflozin 5 mg oral tablet (2 sources) Sodium-Glucose Cotransporter 2 Inhibitor Start: 11-22-2023 take 1 tablet by mouth every twenty-four hours Farxiga 5 MG 1 tablet Orally Once a day for 30 days Oct, Active DuoDERM CGF Extra Thin - (11 sources) DuoDERM CGF Extra Thin - as directed Externally Active furosemide 40 mg oral tablet (13 sources) Loop Diuretic Start: 12-30-2019 take 1 tablet by mouth once daily Lasix 40 mg Tab See Instructions, tab(s) mg Oral Daily, Refills(s) 0 Start Date: 12/30/19 Status: Ordered lisinopril 2.5 mg oral tablet (11 sources) Angiotensin Converting Enzyme Inhibitor Start: 12-25-2019 take 2.5 mg by mouth once daily lisinopril 2.5 mg, Oral, Daily, Refills(s) 0 Start Date: 12/25/19 Status: Ordered Low-Dose Aspirin (11 sources) Low-Dose Aspirin Active melatonin 5 mg oral tablet (11 sources) take 1 tablet by mouth every twenty-four hours Melatonin 5 MG 1 tablet in the evening Orally Once a day Active metoprolol tartrate 50 mg oral tablet (13 sources) beta-Adrenergic Tang Start: 11-22-2023 take 1 capsule by mouth once daily Metoprolol Succinate 50 MG 1 capsule Orally Once a day for 30 days Oct, Active Start: 12-25-2019 take 1 mg by mouth [...] chloride 5 mg extended release oral tablet (13 sources) Cholinergic Muscarinic Antagonist Start: 03-16-2022 take 1 tablet by mouth once daily oxybutynin 5 mg ER Tab 5 mg = 1 tab(s), Oral, Daily, # 90 tab(s), Refills(s) 3, Pharmacy: [id number], 183, cm, 09/21/22 12:19:00 EDT, Height/Length Dosing, 99.3, kg, 09/21/22 12:19:00 EDT, Weight Dosing Start Date: 09/21/22 Status: Ordered potassium chloride 20 meq powder for oral solution (11 sources) take 1 dose by mouth once daily at mealtime Potassium Chloride 20 MEQ 1 packet with food Orally Once a day Active Vitamin B Complex oral capsule (2 sources) Start: 02-14-2020 Vitamin B Comp dyllan oral capsule Oral, Daily, Refill(s) 0 Start Date: 02/14/20 Status: Ordered Completed/Discontinued Medications Medication Drug Class(es) Dates Sig (Normalized) Sig (Original) digoxin 0.125 mg oral tablet (13 sources) Cardiac Glycoside Start: 01-01-2020 take 1 tablet by mouth once daily digoxin 125 mcg (0.125 mg) Tab 125 microgram = 1 tab(s), Oral, Daily Start Date: 01/01/20 Status: Ordered take 1 tablet by mouth once geraldine y Digoxin 125 mcg TAKE 1 TABLET BY MOUTH DAILY Active Problems Problem Classification Problem Date Documented Date Episodic/Chronic Abdominal pain (2 sources) Upper abdominal pain 01-01-2020 Episodic Acute and unspecified renal failure (1 source) Acute kidney failure, unspecified; Translations: [ACUTE KIDNEY FAILURE UNSPECIFIED] Onset: 08-10-2022 Episodic Biliary tract disease (2 sources) Cholecystitis 01-01-2020 Episodic Cancer of prostate (2 sources) Malignant tumor of prostate 12-30-2019 Chronic Cancer of prostate (19 sources) Personal history of malignant neoplasm of prostate; Translations: [History of malignant neoplasm of prostate] Onset: 03-16-2022 Episodic Cardiac dysrhythmias (17 sources) Atrial fibrillation; Translations: [Paroxysmal atrial fibrillation] 01-01-2020 Chronic Chronic kidney disease (1 source) Chronic kidney disease; Translations: [CHRONIC KIDNEY DISEASE STAGE 3A] Onset: 08-10-2022 Chronic ulcer of skin (11 sources) Pressure ulcer of right buttock, stage 1; Translations: [Pressure injury of right buttock stage I (disorder)] Chronic Conduction disorders (20 sources) Second degree atrioventricular block; 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] Onset: 08-10-2022 01-01-2020 Chronic Congestive heart failure; nonhypertensive (20 sources) Chronic systolic heart failure; Translations: [Chronic [...] 04-13-2020 Episodic Gout and other crystal arthropathies (7 sources) Primary gout; 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, 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 Heart valve disorders (15 sources) Aortic valve regurgitation; Translations: [Mitral valve regurgitation] 01-01-2020 Chronic Hyperplasia of prostate (11 sources) Benign prostatic hyperplasia; Translations: [Lower urinary [...] 08-10-2022 Episodic Other aftercare (6 sources) Other residential (current) drug therapy; Translations: [OTH FEATHER DUSTER WINDER CURRENT DRUG THERAPY] Onset: 07-08-2022 Episodic Other aftercare (1 source) long term care administrator (current) use of aspirin; Translations: [FCI CURRENT USE OF ASPIRIN] Onset: 08-16-2022 Episodic Other and ill-defined heart disease (2 sources) Left ventricular hypertrophy 01-01-2020 Chronic Other diseases of veins and lymphatics (12 sources) Peripheral venous insufficiency; Translations: [Venous insufficiency (chronic) (peripheral)] 01-01-2020 Episodic Other diseases of veins and lymphatics (5 sources) Venous insufficiency (chronic) (peripheral); Translations: [Chronic [...] caused by tuberculosis or sexually transmitted disease) (16 sources) Dilated cardiomyopathy; 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] Onset: 07-12-2022 Chronic Pulmonary heart disease (14 sources) 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 [...] Range Facility Office Visiton 04-17-2023 Follow-up visit [id number] Samson Joe 1935 M Date Provider Department Center 04/17/2023 Stephane-JUAN LUIS KYLE [facility] No family history on file Level of Service:42831 AL OFFICE/OUTPATIENT NEW MODERATE MDM 45-59 MINUTES Reason for Visit and Comments: Establish Care [42] Normal [facility] Ambulatory Visit Summaryon 1 Ambulatory Visit Summary SAMSON JOE :1935 Visit Date:09/21/2022 Ambulatory Visit Instructions Your Diagnosis Urge incontinence History of prostate cancer Tests Performed Urnls Dip Stick Auto w/o Microscopy POC 41442 Your Care Team Attending Physician - MARYBETH [...] URL When: Only if needed Where: [address] [place] [address] [id number] Medications What How Much When Instructions Unchanged oxybutynin (oxybutynin 5 mg ER Tab) 1 Tablets By Mouth Every day Pickup at [facility] Unchanged ascorbic acid (Vitamin C) Every [...] physician if questions or concerns Pharmacy Information [id number]: [address] [place], [place] [id number] [phone] Test Results Urnls Dip Stick Auto w/o Microscopy POC 69648 (09/21/2022) Bilirubin Urine Dipstick - Negative Blood Urine Dipstick - Negative Glucose Urine Dipstick - Negative Ketones Urine Dipstick - Negative Leukocytes Urine Dipstick - Negative Nitrite Urine Dipstick - Negative Protein Urine Dipstick - Negative Specific [place] Urine Dipstick - 1.015 Urine Appearance Urine [...] hematuria History of prostate cancer Hyperlipidemia Hypertension long term care administrator current use of 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 ? Are -Cypriot. ? Are obese. ? Have a family [...] during urination (more content not included)... Normal [facility] Ambulatory Visit Summary SAMSON JOE :1935 Visit Date:09/21/2022 Ambulatory Visit Instructions Your Diagnosis Urge incontinence History of prostate cancer Tests Performed Urnls Dip Stick Auto w/o Microscopy POC 11786 Your Care Team Attending Physician - MARYBETH [...] URL When: Only if needed Where: [address] [place] [id number] Medications What How Much When Instructions Unchanged [...] Urnls Dip Stick Auto w/o Microscopy POC 05587 (09/21/2022) Bilirubin Urine Dipstick - Negative Blood Urine Dipstick - Negative Glucose Urine Dipstick - Negative Ketones Urine Dipstick - Negative Leukocytes Urine Dipstick - Negative Nitrite Urine Dipstick - Negative Protein Urine Dipstick - Negative Specific [place] Urine Dipstick - 1.015 Urine Appearance Urine [...] hematuria History of prostate cancer Hyperlipidemia Hypertension care home current use of 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 ? Are -Cypriot. ? Are obese. ? Have a family [...] upper thi (more content not included)... Normal [facility] Patient Educationon 09-21-20 Patient Education Oncology Prostate Cancer The prostate [...] Are older than age 65. ? Are -Cypriot. ? Are obese. ? Have a family [...] Follow these instructions at home: ? Take [id number] and prescription medicines only as told by [...] cancer specialis (more content not included)... Normal [facility] Urology Office/Clinic Noteon 09-21-2022 Urology Office/Clinic Note [...] this time. History of Present Illness staff [facility] reviewed and agree. Review of Systems PHQ [...] SHEPARD, MARYBETH Trivedi, URL Only if needed [address] [place] [address] [id number] Additional Instructions: Patient Education Prostate Cancer IRebecca personally scribed for Marybeth Cooper PA-C on 09/21/2022 12:37:29. . Documentation recorded by the rehan Mares accurately reflects the services(s) I performed and decisions made by me. Authenticated by Marybeth Cooper PA-C on 09/21/2022 12:42:06. 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 Cholecystitis Gross hematuria History of prostate cancer Hyperlipidemia Hypertension long term care administrator current use of antithrombotics/antip latelets Post-void dribbling [...] Father. Immunizations Vaccine Date Status Comments SARSCoV2 mRNA(dwfybostm-xnxz-y marcy) vac 04/26/2022 Recorded SARS-CoV-2 (COVID-19) mRNA BNT-162b2 [...] 09/05/2016 Rec (more content not included)... Normal [facility] Comment on above: Result Comment: Elec tronically Signed By: KENNETH SHEPARD, MARYBETH Trivedi\.lisa\Date and Time Signed: 09/21/22 13:18 EDT CBC AUTO DIFFon 09-06-2022 BASO # 0.0 103/ul Normal 0.0-0.1 [facility] Comment on above: Performed By: #### C BC #### [facility] [address] [address] [address] Kirk García Basophils/100 WBC (Bld) 0.5 % Normal 0.2-2.0 [facility] Comment on above: Performed By: #### C BC #### [facility] [address] [place] [address] Dr. Kirk García EO # 0.1 103/ul Normal 0.0-0.7 [facility] Comment on above: Performed By: #### C BC #### [facility] [address] [place] [address] Dr. Kirk García Eosinophils/100 WBC (Bld) 1.2 % Normal 0.9-7.0 [facility] Comment on above: Performed By: #### C BC #### [facility] [address] [place] [address] Dr. Kirk García Erythrocyte distribution width (RBC) [Ratio] 14.2 % Normal 11.0-15.0 [facility] Comment on above: Performed By: #### C BC #### [facility] [address] [place] [address] Dr. Kirk García Hematocrit (Bld) [Volume fraction] 35.6 % Critically low 42.0-54.0 [facility] Comment on above: Performed By: #### C BC #### [facility] [address] [place] [address] Dr. Kirk García Hemoglobin (Bld) [Mass/Vol] 11.7 g/dL Critically low 14.0-18.0 [facility] Comment on above: Performed By: #### C BC #### [facility] [address] [place] [address] Dr. Kirk García IG # 0.04 10e3/ul Critically high 0.00-0.03 [facility] Comment on above: Performed By: #### C BC #### [facility] [address] [place] [address] Dr. Kirk García IG % 0.6 % Critically high 0.0-0.5 [facility] Comment on above: Performed By: #### C BC #### [facility] [address] [address] [address] Kirk García LYMPH # 1.7 103/ul Normal 1.2-3.8 [facility] Comment on above: Performed By: #### C BC #### [facility] [address] [place] [address] Dr. iKrk García Lymphocytes/100 WBC (Bld) 25.7 % Normal 20.5-60.0 [facility] Comment on above: Performed By: #### C BC #### [facility] [address] [place] [address] Dr. Kirk García MANUAL DIFF REQ NO Normal [facility] Comment on above: Performed By: #### C BC #### [facility] [address] [place] [address] Dr. Kirk García MCH (RBC) [Entitic mass] 34.1 pg Critically high 25.9-34.0 [facility] Comment on above: Performed By: #### C BC #### [facility] [address] [place] [address] Dr. Kirk García MCHC (RBC) [Mass/Vol] 32.9 g/dL Normal 29.9-35.2 [facility] Comment on above: Performed By: #### C BC #### [facility] [address] [place] [address] Dr. Kirk García MCV (RBC) [Entitic vol] 103.8 fL Critically high 80.0-94.0 [facility] Comment on above: Performed By: #### C BC #### [facility] [address] [place] [address] Dr. Kirk García MONO # 1.1 103/ul Critically high 0.3-0.8 [facility] Comment on above: Performed By: #### C BC #### [facility] [address] [place] [address] Dr. Kirk García Monocytes/100 WBC (Bld) 17.7 % Critically high 1.7-12.0 [facility] Comment on above: Performed By: #### C BC #### [facility] [address] [place] [address] Dr. Kirk García NEUT # 3.5 103/ul Normal 1.4-6.5 [facility] Comment on above: Performed By: #### C BC #### [facility] [address] [place] [address] Dr. Kirk García Neutrophils/100 WBC (Bld) 54.3 % Normal 43.0-75.0 [facility] Comment on above: Performed By: #### C BC #### [facility] [address] [place] [address] Dr. Kirk García Platelet mean volume (Bld) [Entitic vol] 10.1 fL Normal 9.5-13.5 [facility] Comment on above: Performed By: #### C BC #### [facility] [address] [place] [address] Dr. Kirk García PLT 153 103/ul Normal 150-450 [facility] Comment on above: Performed By: #### C BC #### [facility] [address] [place] [address] Dr. Kirk García RBC 3.43 106/ul Critically low 4.70-6.10 [facility] Comment on above: Performed By: #### C BC #### [facility] [address] [place] [address] Dr. Kirk García WBC 6.5 103/ul Normal 4.0-11.0 [facility] Comment on above: Performed By: #### C BC #### [facility] [address] [place] [address] Dr. Kirk García PROF CHEM 8 (BAS METB)on Anion gap [Moles/Vol] 10.8 mmol/L Normal [facility] Comment on above: Performed By: #### B MP #### [facility] [address] [place] [address] Dr. Kirk García Calcium [Mass/Vol] 9.2 mg/dL Normal 8.5-10.1 [facility] Comment on above: Performed By: #### B MP #### [facility] [address] [place] [address] Dr. Kirk García Chloride [Moles/Vol] 101 mmol/L Normal 98-107 [facility] Comment on above: Performed By: #### B MP #### [facility] [address] [address] [address] Kirk García CO2 [Moles/Vol] 30.9 mmol/L Normal 21.0-32.0 [facility] Comment on above: Performed By: #### B MP #### [facility] [address] [address] [address] Kirk García Creatinine [Mass/Vol] 1.54 mg/dL Critically high 0.70-1.30 [facility] Comment on above: Performed By: #### B MP #### [facility] [address] [address] [address] Kirk García EGFR-AF POLISH 52 mL/min/1.73m2 Critically low >=60 [facility] Comment on above: Performed By: #### B MP #### [facility] [address] [address] [address] Kirk García EGFR-NON AF POLISH 43 mL/min/1.73m2 Critically low >=60 [facility] Comment on above: Performed By: #### B MP #### [facility] [address] [address] [address] Kirk García Glucose [Mass/Vol] 106 mg/dL Normal 74-106 [facility] Comment on above: Performed By: #### B MP #### [facility] [address] [address] [address] Kirk García Potassium [Moles/Vol] 4.7 mmol/L Normal 3.5-5.1 [facility] Comment on above: Performed By: #### B MP #### [facility] [address] [address] [address] Kirk García Sodium [Moles/Vol] 138 mmol/L Normal 136-145 [facility] Comment on above: Performed By: #### B MP #### [facility] [address] [address] [address] Kirk García Urea nitrogen [Mass/Vol] 28.0 mg/dL Critically high 7.0-18.0 [facility] Comment on above: Performed By: #### B MP #### [facility] [address] [place] [address] Dr. Kirk García Urea nitrogen/Creatinin e [Mass ratio] 18.2 mg/mg Normal [facility] Comment on above: Performed By: #### B MP #### [facility] [address] [place] [address] Dr. Kirk García CBC W MANUAL DIFFon 08-15-20 22 ATYPICAL LYMPH # 1.62 103/ul Normal [facility] Comment on above: Performed By: #### U MICRO, ERUR #### [facility] [address] [place] [address] Dr. Kirk García ATYPICAL LYMPH % 12 % Normal [facility] Comment on above: Performed By: #### U MICRO, ERUR #### [facility] [address] [place] [address] Dr. Kirk García BAND # 0.1 103/ul Normal 0.0-0.3 [facility] Comment on above: Performed By: #### U MICRO, ERUR #### [facility] [address] [place] [address] Dr. Kirk García BAND % 1 % Normal 0-5 [facility] Comment on above: Performed By: #### U MICRO, ERUR #### [facility] [address] [place] [address] Dr. Kirk García BASOM # 0.14 103/ul Critically high 0.00-0.10 [facility] Comment on above: Performed By: #### U MICRO, ERUR #### [facility] [address] [place] [address] Dr. Kirk García BASOM % 1.0 % Normal 0.2-2.0 [facility] Comment on above: Performed By: #### U MICRO, ERUR #### [facility] [address] [place] [address] Dr. Kirk García BLAST # Normal [facility] Comment on above: Performed By: #### U MICRO, ERUR #### [facility] [address] [address] [address] Kirk García BLAST % Normal [facility] Comment on above: Performed By: #### U MICRO, ERUR #### [facility] [address] [address] [address] Kirk García CORRECTED WBC Normal 4.0-11.0 [facility] Comment on above: Performed By: #### U MICRO, ERUR #### [facility] [address] [address] [address] Kirk García EOS # 0.14 103/ul Normal 0.00-0.70 [facility] Comment on above: Performed By: #### U MICRO, ERUR #### [facility] [address] [place] [address] Dr. Kirk García EOS% 1.0 % Normal 0.9-7.0 [facility] Comment on above: Performed By: #### U MICRO, ERUR #### [facility] [address] [address] [address] Kirk García HCT 40.7 % Critically low 42.0-54.0 [facility] Comment on above: Performed By: #### U MICRO, ERUR #### [facility] [address] [address] [address] Kirk García HGB 13.4 g/dl Critically low 14.0-18.0 [facility] Comment on above: Performed By: #### U MICRO, ERUR #### [facility] [address] [address] [address] Kirk García LYMPHM # 0.54 103/ul Critically low 1.20-3.80 [facility] Comment on above: Performed By: #### U MICRO, ERUR #### [facility] [address] [address] [address] Kirk García LYMPHM% 4.0 % Critically low 20.5-60.0 [facility] Comment on above: Performed By: #### U MICRO, ERUR #### [facility] [address] [address] [address] Kirk García MCH 34.2 pg Critically high 25.9-34.0 [facility] Comment on above: Performed By: #### U MICRO, ERUR #### [facility] [address] [address] [address] Kirk García MCHC 32.9 g/dl Normal 29.9-35.2 [facility] Comment on above: Performed By: #### U MICRO, ERUR #### [facility] [address] [address] [address] Kirk García MCV 103.8 fL Critically high 80.0-94.0 [facility] Comment on above: Performed By: #### U MICRO, ERUR #### [facility] [address] [address] [address] Kirk García METAMYELOCYTE # Normal [facility] Comment on above: Performed By: #### U MICRO, ERUR #### [facility] [address] [address] [address] Kirk García METAMYELOCYTE % Normal [facility] Comment on above: Performed By: #### U MICRO, ERUR #### [facility] [address] [address] [address] Kirk García MONOM# 1.08 103/ul Critically high 0.30-0.80 [facility] Comment on above: Performed By: #### U MICRO, ERUR #### [facility] [address] [address] [address] Kirk García MONOM% 8.0 % Normal 1.7-12.0 [facility] Comment on above: Performed By: #### U MICRO, ERUR #### [facility] [address] [address] [address] Kirk García MPV 10.7 fL Normal 9.5-13.5 [facility] Comment on above: Performed By: #### U MICRO, ERUR #### [facility] [address] [address] [address] Kirk García MYELOCYTE # Normal [facility] Comment on above: Performed By: #### U MICRO, ERUR #### [facility] [address] [address] [address] Kirk García MYELOCYTE % Normal [facility] Comment on above: Performed By: #### U MICRO, ERUR #### [facility] [address] [address] [address] Kirk García NRBC Normal [facility] Comment on above: Performed By: #### U MICRO, ERUR #### [facility] [address] [address] [address] Kirk García PLT 140 103/ul Critically low 150-450 [facility] Comment on above: Performed By: #### U MICRO, ERUR #### [facility] [address] [address] [address] Kirk García RBC 3.92 106/ul Critically low 4.70-6.10 [facility] Comment on above: Performed By: #### U MICRO, ERUR #### [facility] [address] [address] [address] Kirk García RDW 14.0 % Normal 11.0-15.0 [facility] Comment on above: Performed By: #### U MICRO, ERUR #### [facility] [address] [address] [address] Kirk García SEG # 9.86 103/ul Critically high 1.40-6.50 [facility] Comment on above: Performed By: #### U MICRO, ERUR #### [facility] [address] [address] [address] Kirk García SEG % 73.0 % Normal 43.0-75.0 [facility] Comment on above: Performed By: #### U MICRO, ERUR #### [facility] [address] [address] [address] Kirk García TOXIC GRANULATION 2+ Normal [facility] Comment on above: Performed By: #### U MICRO, ERUR #### [facility] [address] [address] [address] Kirk García WBC 13.5 103/ul Critically high 4.0-11.0 [facility] Comment on above: Performed By: #### U MICRO, ERUR #### [facility] [address] [address] [address] Kirk García PROF 14(COMP METB)on 022 Albumin [Mass/Vol] 3.0 g/dL Critically low 3.4-5.0 [facility] Comment on above: Performed By: #### C MP #### [facility] [address] [address] [address] Kirk García Albumin/Globulin [Mass ratio] 0.8 {ratio} Normal [facility] Comment on above: Performed By: #### C MP #### [facility] [address] [place] [address] Dr. Kirk García ALP [Catalytic activity/Vol] 81 U/L Normal 46-116 [facility] Comment on above: Performed By: #### C MP #### [facility] [address] [place] [address] Dr. Kirk García ALT [Catalytic activity/Vol] 50 U/L Normal 16-63 [facility] Comment on above: Performed By: #### C MP #### [facility] [address] [place] [address] Dr. Kirk García Anion gap [Moles/Vol] 8.2 mmol/L Normal [facility] Comment on above: Performed By: #### C MP #### [facility] [address] [place] [address] Dr. Kirk García AST [Catalytic activity/Vol] 14 U/L Critically low 15-37 [facility] Comment on above: Performed By: #### C MP #### [facility] [address] [address] [address] Kirk García Bilirubin [Mass/Vol] 0.9 mg/dL Normal 0.2-1.0 [facility] Comment on above: Performed By: #### C MP #### [facility] [address] [place] [address] Dr. Kirk García Calcium [Mass/Vol] 9.3 mg/dL Normal 8.5-10.1 [facility] Comment on above: Performed By: #### C MP #### [facility] [address] [address] [address] Kirk García Chloride [Moles/Vol] 100 mmol/L Normal 98-107 [facility] Comment on above: Performed By: #### C MP #### [facility] [address] [address] [address] Kirk García CO2 [Moles/Vol] 33.1 mmol/L Critically high 21.0-32.0 [facility] Comment on above: Performed By: #### C MP #### [facility] [address] [address] [address] Kirk García Creatinine [Mass/Vol] 1.56 mg/dL Critically high 0.70-1.30 [facility] Comment on above: Performed By: #### C MP #### [facility] [address] [address] [address] Kirk García EGFR-AF POLISH 51 mL/min/1.73m2 Critically low >=60 [facility] Comment on above: Performed By: #### C MP #### [facility] [address] [address] [address] Kirk García EGFR-NON AF POLISH 42 mL/min/1.73m2 Critically low >=60 [facility] Comment on above: Performed By: #### C MP #### [facility] [address] [address] [address] Kirk García Globulin (S) [Mass/Vol] 3.7 g/dL Normal [facility] Comment on above: Performed By: #### C MP #### [facility] [address] [address] [address] Kirk García Glucose [Mass/Vol] 107 mg/dL Critically high 74-106 [facility] Comment on above: Performed By: #### C MP #### [facility] [address] [address] [address] Kirk García Potassium [Moles/Vol] 5.3 mmol/L Critically high 3.5-5.1 [facility] Comment on above: Performed By: #### C MP #### [facility] [address] [address] [address] Kirk García Protein [Mass/Vol] 6.7 g/dL Normal 6.4-8.2 [facility] Comment on above: Performed By: #### C MP #### [facility] [address] [address] [address] Kirk García Sodium [Moles/Vol] 136 mmol/L Normal 136-145 [facility] Comment on above: Performed By: #### C MP #### [facility] [address] [address] [address] Kirk García Urea nitrogen [Mass/Vol] 50.0 mg/dL Critically high 7.0-18.0 [facility] Comment on above: Performed By: #### C MP #### [facility] [address] [address] [address] Kirk García Urea nitrogen/Creatinin e [Mass ratio] 32.1 mg/mg Normal [facility] Comment on above: Performed By: #### C MP #### [facility] [address] [address] [address] Kirk García CULTURE URINEon 08-14-2022 CULTURE URINE Culture Observations : NO GROWTH. Normal [facility] Comment on above: Performed By: #### U MICRO, ERUR #### [facility] [address] [address] [address] Kirk García ER URINE PROFILEon Bilirubin Ql (U) Negative Normal NEGATIVE [facility] Comment on above: Performed By: #### U MICRO, ERUR #### [facility] [address] [address] [address] Kirk García Clarity (U) CLEAR Normal CLEAR [facility] Comment on above: Performed By: #### U MICRO, ERUR #### [facility] [address] [address] [address] Kirk García Color (U) ORANGE Abnormal YELLOW [facility] Comment on above: Performed By: #### U MICRO, ERUR #### [facility] [address] [address] [address] Kirk GRUBBS A micrscopic examination will be performed if indicated. Normal [facility] Comment on above: Performed By: #### U MICRO, ERUR #### [facility] [address] [address] [address] Kirk García Glucose Ql (U) Negative Normal NEGATIVE [facility] Comment on above: Performed By: #### U MICRO, ERUR #### [facility] [address] [address] [address] Kirk García Hemoglobin Ql (U) LARGE Abnormal NEGATIVE [facility] Comment on above: Performed By: #### U MICRO, ERUR #### [facility] [address] [address] [address] Kirk García Ketones Ql (U) TRACE Abnormal NEGATIVE [facility] Comment on above: Performed By: #### U MICRO, ERUR #### [facility] [address] [address] [address] Kirk García LEUKOCYTES MODERATE Abnormal NEGATIVE [facility] Comment on above: Performed By: #### U MICRO, ERUR #### [facility] [address] [address] [address] Kirk García Nitrite Ql (U) Negative Normal NEGATIVE [facility] Comment on above: Performed By: #### U MICRO, ERUR #### [facility] [address] [address] [address] Kirk García pH (U) 5.5 [pH] Normal 5-9 [facility] Comment on above: Performed By: #### U MICRO, ERUR #### [facility] [address] [address] [address] Kirk García Protein (U) [Mass/Vol] 100 mg/dL Abnormal NEGATIVE/ TRACE [facility] Comment on above: Performed By: #### U MICRO, ERUR #### [facility] [address] [place] [address] Dr. Kirk García SPEC GRAVITY 1.025 Normal 1.005-<=1.025 [facility] Comment on above: Performed By: #### U MICRO, ERUR #### [facility] [address] [place] [address] Dr. Kirk García UR MICRO IND INDICATED Normal [facility] Comment on above: Performed By: #### U MICRO, ERUR #### [facility] [address] [place] [address] Dr. Kirk García Urobilinogen Qn (U) 1.0 {Ryan'U}/dL Normal 0.2 - 1.0 [facility] Comment on above: Performed By: #### U MICRO, ERUR #### [facility] [address] [place] [address] Dr. Kirk García URINE MICROSCOPIC ONLYon BACTERIA SMALL Abnormal NONE SEEN [facility] Comment on above: Performed By: #### U MICRO, ERUR #### [facility] [address] [place] [address] Dr. Kirk García Bacteria identified Cx Nom (U) INDICATED Normal [facility] Comment on above: Performed By: #### U MICRO, ERUR #### [facility] [address] [place] [address] Dr. Kirk García CAST NONE SEEN Normal NONE SEEN [facility] Comment on above: Performed By: #### U MICRO, ERUR #### [facility] [address] [place] [address] Dr. Kirk García Crystals LM Nom (Urine sed) NONE SEEN Normal NONE SEEN [facility] Comment on above: Performed By: #### U MICRO, ERUR #### [facility] [address] [place] [address] Dr. Kirk García Epithelial cells LM Ql (Urine sed) RARE Normal NONE SEEN /RARE [facility] Comment on above: Performed By: #### U MICRO, ERUR #### [facility] [address] [place] [address] Dr. Kirk García MUCOUS NONE SEEN Normal NONE SEEN [facility] Comment on above: Performed By: #### U MICRO, ERUR #### [facility] [address] [place] [address] Dr. Kirk García RBC 75-100 Abnormal 0-2 [facility] Comment on above: Performed By: #### U MICRO, ERUR #### [facility] [address] [address] [address] Kirk García WBC 50-75 Abnormal NONE SEEN [facility] Comment on above: Performed By: #### U MICRO, ERUR #### [facility] [address] [address] [address] Kirk García XR KNEE WILBER 4V [...] ANA DALAL Date: 2022-08-14 21:09 Normal [facility] CBC W MANUAL DIFFon 08-04-20 22 ATYPICAL LYMPH # Normal [facility] Comment on above: Performed By: #### C CHRISTOPHER #### [facility] [address] [place] [address] Dr. Kirk García ATYPICAL LYMPH % Normal [facility] Comment on above: Performed By: #### C CHRISTOPHER #### [facility] [address] [address] [address] Kirk García BAND # 0.0 103/ul Normal 0.0-0.3 [facility] Comment on above: Performed By: #### C CHRISTOPHER #### [facility] [address] [address] [address] Kirk García BAND % 1 % Normal 0-5 [facility] Comment on above: Performed By: #### C CHRISTOPHER #### [facility] [address] [place] [address] Dr. Kirk García BASOM # 0.00 103/ul Normal 0.00-0.10 [facility] Comment on above: Performed By: #### C CHRISTOPHER #### [facility] [address] [address] [address] Krik García BASOM % 0.0 % Critically low 0.2-2.0 [facility] Comment on above: Performed By: #### C BCMAN #### [facility] [address] [address] [address] Kirk García BLAST # Normal [facility] Comment on above: Performed By: #### C BCMAN #### [facility] [address] [address] [address] Kirk García BLAST % Normal [facility] Comment on above: Performed By: #### C BCLEILA #### [facility] [address] [place] [address] Dr. Kirk García CORRECTED WBC Normal 4.0-11.0 [facility] Comment on above: Performed By: #### C BCLEILA #### [facility] [address] [place] [address] Dr. Kirk García EOS # 0.00 103/ul Normal 0.00-0.70 [facility] Comment on above: Performed By: #### C BCLEILA #### [facility] [address] [place] [address] Dr. Kirk García EOS% 0.0 % Critically low 0.9-7.0 [facility] Comment on above: Performed By: #### C BCLEILA #### [facility] [address] [address] [address] Kirk García HCT 31.0 % Critically low 42.0-54.0 [facility] Comment on above: Performed By: #### C BCMAN #### [facility] [address] [place] [address] Dr. Kirk García HGB 10.5 g/dl Critically low 14.0-18.0 [facility] Comment on above: Performed By: #### C BCMAN #### [facility] [address] [place] [address] Dr. Kirk García LYMPHM # 0.31 103/ul Critically low 1.20-3.80 [facility] Comment on above: Performed By: #### C CHRISTOPHER #### [facility] [address] [address] [address] Kirk García LYMPHM% 11.0 % Critically low 20.5-60.0 [facility] Comment on above: Performed By: #### C CHRISTOPHER #### [facility] [address] [address] [address] Kirk García MCH 34.2 pg Critically high 25.9-34.0 [facility] Comment on above: Performed By: #### C CHRISTOPHER #### [facility] [address] [address] [address] Kirk García MCHC 33.9 g/dl Normal 29.9-35.2 [facility] Comment on above: Performed By: #### C CHRISTOPHER #### [facility] [address] [place] [address] Dr. Kirk García MCV 101.0 fL Critically high 80.0-94.0 [facility] Comment on above: Performed By: #### C CHRISTOPHER #### [facility] [address] [address] [address] Kirk García METAMYELOCYTE # 0.1 103/ul Normal [facility] Comment on above: Performed By: #### C CHRISTOPHER #### [facility] [address] [place] [address] Dr. Kirk García METAMYELOCYTE % 2 % Normal [facility] Comment on above: Performed By: #### C CHRISTOPHER #### [facility] [address] [address] [address] Kirk García MONOM# 0.03 103/ul Critically low 0.30-0.80 [facility] Comment on above: Performed By: #### C CHRISTOPHER #### [facility] [address] [address] [address] Kirk García MONOM% 1.0 % Critically low 1.7-12.0 [facility] Comment on above: Performed By: #### C CHRISTOPHER #### [facility] [address] [address] [address] Kirk Gacría MPV 10.7 fL Normal 9.5-13.5 [facility] Comment on above: Performed By: #### C CHRISTOPHER #### [facility] [address] [address] [address] Kirk García MYELOCYTE # 0.0 103/ul Normal [facility] Comment on above: Performed By: #### C CHRISTOPHER #### [facility] [address] [address] [address] Kirk García MYELOCYTE % 1 % Normal [facility] Comment on above: Performed By: #### C CHRISTOPHER #### [facility] [address] [address] [address] Kirk García NRBC Normal [facility] Comment on above: Performed By: #### C CHRISTOPHER #### [facility] [address] [place] [address] Dr. Kirk García PLT 84 103/ul Critically low 150-450 [facility] Comment on above: Performed By: #### C CHRISTOPHER #### [facility] [address] [place] [address] Dr. Kirk García RBC 3.07 106/ul Critically low 4.70-6.10 [facility] Comment on above: Performed By: #### C CHRISTOPHER #### [facility] [address] [place] [address] Dr. Kirk García RDW 13.3 % Normal 11.0-15.0 [facility] Comment on above: Performed By: #### C CHRISTOPHER #### [facility] [address] [place] [address] Dr. Kirk García SEG # 2.35 103/ul Normal 1.40-6.50 [facility] Comment on above: Performed By: #### C CHRISTOPHER #### [facility] [address] [place] [address] Dr. Kirk García SEG % 84.0 % Critically high 43.0-75.0 [facility] Comment on above: Performed By: #### C CHRISTOPHER #### [facility] [address] [address] [address] Kirk García WBC 2.8 103/ul Critically low 4.0-11.0 [facility] Comment on above: Performed By: #### C BCMAN #### [facility] [address] [address] [address] Kirk García PROF CHEM 8 (BAS METB)on Anion gap [Moles/Vol] 9.9 mmol/L Normal [facility] Comment on above: Performed By: #### U MICRO, ERUR #### [facility] [address] [address] [address] Kirk García Calcium [Mass/Vol] 7.4 mg/dL Critically low 8.5-10.1 [facility] Comment on above: Performed By: #### U MICRO, ERUR #### [facility] [address] [place] [address] Dr. Kirk García Chloride [Moles/Vol] 100 mmol/L Normal 98-107 [facility] Comment on above: Performed By: #### U MICRO, ERUR #### [facility] [address] [address] [address] Kirk García CO2 [Moles/Vol] 23.8 mmol/L Normal 21.0-32.0 [facility] Comment on above: Performed By: #### U MICRO, ERUR #### [facility] [address] [address] [address] Kirk García Creatinine [Mass/Vol] 1.43 mg/dL Critically high 0.70-1.30 [facility] Comment on above: Performed By: #### U MICRO, ERUR #### [facility] [address] [address] [address] Kirk García EGFR-AF POLISH 57 mL/min/1.73m2 Critically low >=60 [facility] Comment on above: Performed By: #### U MICRO, ERUR #### [facility] [address] [address] [address] Kirk García EGFR-NON AF POLISH 47 mL/min/1.73m2 Critically low >=60 [facility] Comment on above: Performed By: #### U MICRO, ERUR #### [facility] [address] [address] [address] Kirk García Glucose [Mass/Vol] 148 mg/dL Critically high 74-106 [facility] Comment on above: Performed By: #### U MICRO, ERUR #### [facility] [address] [place] [address] Dr. Kirk García Potassium [Moles/Vol] 4.7 mmol/L Normal 3.5-5.1 [facility] Comment on above: Performed By: #### U MICRO, ERUR #### [facility] [address] [place] [address] Dr. Kirk García Sodium [Moles/Vol] 129 mmol/L Critically low 136-145 [facility] Comment on above: Performed By: #### U MICRO, ERUR #### [facility] [address] [place] [address] Dr. Kirk García Urea nitrogen [Mass/Vol] 42.0 mg/dL Critically high 7.0-18.0 [facility] Comment on above: Performed By: #### U MICRO, ERUR #### [facility] [address] [place] [address] Dr. Kirk García Urea nitrogen/Creatinin e [Mass ratio] 29.4 mg/mg Normal [facility] Comment on above: Performed By: #### U MICRO, ERUR #### [facility] [address] [place] [address] Dr. Kirk García CBC AUTO DIFFon 08-03-2022 BASO # 0.0 103/ul Normal 0.0-0.1 [facility] Comment on above: Performed By: #### C BC #### [facility] [address] [place] [address] Dr. Kirk García Basophils/100 WBC (Bld) 0.0 % Critically low 0.2-2.0 [facility] Comment on above: Performed By: #### C BC #### [facility] [address] [place] [address] Dr. Kirk García EO # 0.0 103/ul Normal 0.0-0.7 [facility] Comment on above: Performed By: #### C BC #### [facility] [address] [place] [address] Dr. Kirk García Eosinophils/100 WBC (Bld) 0.2 % Critically low 0.9-7.0 [facility] Comment on above: Performed By: #### C BC #### [facility] [address] [place] [address] Dr. Kirk García Erythrocyte distribution width (RBC) [Ratio] 13.7 % Normal 11.0-15.0 [facility] Comment on above: Performed By: #### C BC #### [facility] [address] [place] [address] Dr. Kirk García Hematocrit (Bld) [Volume fraction] 34.3 % Critically low 42.0-54.0 [facility] Comment on above: Performed By: #### C BC #### [facility] [address] [place] [address] Dr. Kirk García Hemoglobin (Bld) [Mass/Vol] 11.8 g/dL Critically low 14.0-18.0 [facility] Comment on above: Performed By: #### C BC #### [facility] [address] [place] [address] Dr. Kirk García IG # 0.02 10e3/ul Normal 0.00-0.03 [facility] Comment on above: Performed By: #### C BC #### [facility] [address] [place] [address] Dr. Kirk García IG % 0.4 % Normal 0.0-0.5 [facility] Comment on above: Performed By: #### C BC #### [facility] [address] [place] [address] Dr. Kirk García LYMPH # 0.9 103/ul Critically low 1.2-3.8 [facility] Comment on above: Performed By: #### C BC #### [facility] [address] [place] [address] Dr. Kirk García Lymphocytes/100 WBC (Bld) 16.5 % Critically low 20.5-60.0 [facility] Comment on above: Performed By: #### C BC #### [facility] [address] [place] [address] Dr. Kirk García MANUAL DIFF REQ NO Normal [facility] Comment on above: Performed By: #### C BC #### [facility] [address] [place] [address] Dr. Kirk García MCH (RBC) [Entitic mass] 34.4 pg Critically high 25.9-34.0 [facility] Comment on above: Performed By: #### C BC #### [facility] [address] [place] [address] Dr. Kirk García MCHC (RBC) [Mass/Vol] 34.4 g/dL Normal 29.9-35.2 [facility] Comment on above: Performed By: #### C BC #### [facility] [address] [place] [address] Dr. Kirk García MCV (RBC) [Entitic vol] 100.0 fL Critically high 80.0-94.0 [facility] Comment on above: Performed By: #### C BC #### [facility] [address] [place] [address] Dr. Kirk García MONO # 1.2 103/ul Critically high 0.3-0.8 [facility] Comment on above: Performed By: #### C BC #### [facility] [address] [place] [address] Dr. Kirk García Monocytes/100 WBC (Bld) 22.3 % Critically high 1.7-12.0 [facility] Comment on above: Performed By: #### C BC #### [facility] [address] [place] [address] Dr. Kirk García NEUT # 3.4 103/ul Normal 1.4-6.5 [facility] Comment on above: Performed By: #### C BC #### [facility] [address] [place] [address] Dr. Kirk García Neutrophils/100 WBC (Bld) 60.6 % Normal 43.0-75.0 [facility] Comment on above: Performed By: #### C BC #### [facility] [address] [place] [address] Dr. Kirk García Platelet mean volume (Bld) [Entitic vol] 11.6 fL Normal 9.5-13.5 [facility] Comment on above: Performed By: #### C BC #### [facility] [address] [place] [address] Dr. Kirk García PLT 99 103/ul Critically low 150-450 [facility] Comment on above: Performed By: #### C BC #### [facility] [address] [place] [address] Dr. Kirk García RBC 3.43 106/ul Critically low 4.70-6.10 [facility] Comment on above: Performed By: #### C BC #### [facility] [address] [place] [address] Dr. Kirk García WBC 5.5 103/ul Normal 4.0-11.0 [facility] Comment on above: Performed By: #### C BC #### [facility] [address] [place] [address] Dr. Kirk García CULTURE BLOODon 08-03-2022 Microscopic examination of blood, culture Culture Observations: NO GROWTH AT 5 DAYS. Normal [facility] Comment on above: Performed By: #### U MICRO, ERUR #### [facility] [address] [place] [address] Dr. Kirk García Microscopic examination of blood, culture Culture Observations: NO GROWTH AT 5 DAYS. Normal [facility] Comment on above: Performed By: #### U MICRO, ERUR #### [facility] [address] [place] [address] Dr. Kirk García Covid-19 PCR (CVDTB)on SARS-CoV-2 (COVID-19) RNA SANAZ+probe Ql (Unsp spec) Detected Critically abnormal NOT DETECTED [facility] Comment on above: Result Comment: This test is not yet approved or cleared by the [place] FDA. When there are no FDA-approved or cleared tests available, and other criteria are met, FDA can make tests available under an emergency access mechanism called an Emergency Use Authorization (EUA). The EUA for this test is supported by the [place] of Health and Human Service's declaration that [...] used). Performed By: #### C VDTBH #### [facility] [address] [place] [address] Dr. Kirk García GROUP A STREP CULTUREon S. pyogenes Ag Ql (Unsp spec) Culture Observations: NEGATIVE FOR GROUP A STREPTOCOCCUS. Normal [facility] Comment on above: Performed By: #### U MICRO, ERUR #### [facility] [address] [place] [address] Dr. Kirk García PROF 14(COMP METB)on 022 Albumin [Mass/Vol] 3.0 g/dL Critically low 3.4-5.0 Th e [facility] Comment on above: Performed By: #### C MP #### [facility] [address] [place] [address] Dr. Kirk García Albumin/Globulin [Mass ratio] 0.7 {ratio} Normal [facility] Comment on above: Performed By: #### C MP #### [facility] [address] [place] [address] Dr. Kirk García ALP [Catalytic activity/Vol] 76 U/L Normal 46-116 [facility] Comment on above: Performed By: #### C MP #### [facility] [address] [place] [address] Dr. Kirk García ALT [Catalytic activity/Vol] 27 U/L Normal 16-63 [facility] Comment on above: Performed By: #### C MP #### [facility] [address] [place] [address] Dr. Kirk García Anion gap [Moles/Vol] 8.9 mmol/L Normal [facility] Comment on above: Performed By: #### C MP #### [facility] [address] [place] [address] Dr. Kirk García AST [Catalytic activity/Vol] 17 U/L Normal 15-37 [facility] Comment on above: Performed By: #### C MP #### [facility] [address] [address] [address] Kirk García Bilirubin [Mass/Vol] 1.3 mg/dL Critically high 0.2-1.0 [facility] Comment on above: Performed By: #### C MP #### [facility] [address] [place] [address] Dr. Kirk García Calcium [Mass/Vol] 8.1 mg/dL Critically low 8.5-10.1 Th [facility] Comment on above: Performed By: #### C MP #### [facility] [address] [place] [address] Dr. Kirk García Chloride [Moles/Vol] 94 mmol/L Critically low 98-107 [facility] Comment on above: Performed By: #### C MP #### [facility] [address] [place] [address] Dr. Kirk García CO2 [Moles/Vol] 27.5 mmol/L Normal 21.0-32.0 [facility] Comment on above: Performed By: #### C MP #### [facility] [address] [place] [address] Dr. Kirk García Creatinine [Mass/Vol] 1.65 mg/dL Critically high 0.70-1.30 [facility] Comment on above: Performed By: #### C MP #### [facility] [address] [place] [address] Dr. Kirk García EGFR-AF POLISH 48 mL/min/1.73m2 Critically low >=60 [facility] Comment on above: Performed By: #### C MP #### [facility] [address] [place] [address] Dr. Kirk García EGFR-NON AF POLISH 40 mL/min/1.73m2 Critically low >=60 [facility] Comment on above: Performed By: #### C MP #### [facility] [address] [address] [address] Kirk García Globulin (S) [Mass/Vol] 4.5 g/dL Normal [facility] Comment on above: Performed By: #### C MP #### [facility] [address] [address] [address] Kirk García Glucose [Mass/Vol] 118 mg/dL Critically high 74-106 T [facility] Comment on above: Performed By: #### C MP #### [facility] [address] [address] [address] Kirk García Potassium [Moles/Vol] 4.4 mmol/L Normal 3.5-5.1 [facility] Comment on above: Performed By: #### C MP #### [facility] [address] [address] [address] Kirk García Protein [Mass/Vol] 7.5 g/dL Normal 6.4-8.2 [facility] Comment on above: Performed By: #### C MP #### [facility] [address] [place] [address] Dr. Kirk García Sodium [Moles/Vol] 126 mmol/L Critically low 136-145 Th [facility] Comment on above: Performed By: #### C MP #### [facility] [address] [address] [address] Kirk García Urea nitrogen [Mass/Vol] 36.0 mg/dL Critically high 7.0-18.0 [facility] Comment on above: Performed By: #### C MP #### [facility] [address] [address] [address] Kirk García Urea nitrogen/Creatinin e [Mass ratio] 21.8 mg/mg Normal [facility] Comment on above: Performed By: #### C MP #### [facility] [address] [address] [address] Kirk García STREPT SCREENon 08-03-2022 STREP SCREEN A Negative Normal NEGATIVE [facility] Comment on above: Performed By: #### U MICRO, ERUR #### [facility] [address] [address] [address] Kirk García XR CHEST 1 Von [...] MILAGROS REEDER Date: 2022-08-03 12:55 Normal [facility] CBC AUTO DIFFon 07-08-2022 BASO # 0.0 103/ul Normal 0.0-0.1 [facility] Comment on above: Performed By: #### C BC #### [facility] [address] [address] [address] Kirk García Basophils/100 WBC (Bld) 0.5 % Normal 0.2-2.0 [facility] Comment on above: Performed By: #### C BC #### [facility] [address] [address] [address] Kirk García EO # 0.1 103/ul Normal 0.0-0.7 [facility] Comment on above: Performed By: #### C BC #### [facility] [address] [id number] [address] Kirk García Eosinophils/100 WBC (Bld) 1.4 % Normal 0.9-7.0 [facility] Comment on above: Performed By: #### C BC #### [facility] [address] [address] [address] Kirk García Erythrocyte distribution width (RBC) [Ratio] 13.4 % Normal 11.0-15.0 [facility] Comment on above: Performed By: #### C BC #### [facility] [address] [place] [address] Dr. Kirk García Hematocrit (Bld) [Volume fraction] 39.6 % Critically low 42.0-54.0 [facility] Comment on above: Performed By: #### C BC #### [facility] [address] [place] [address] Dr. Kirk García Hemoglobin (Bld) [Mass/Vol] 13.2 g/dL Critically low 14.0-18.0 [facility] Comment on above: Performed By: #### C BC #### [facility] [address] [place] [address] Dr. Kirk García IG # 0.02 10e3/ul Normal 0.00-0.03 [facility] Comment on above: Performed By: #### C BC #### [facility] [address] [place] [address] Dr. Kirk García IG % 0.3 % Normal 0.0-0.5 [facility] Comment on above: Performed By: #### C BC #### [facility] [address] [place] [address] Dr. Kirk García LYMPH # 1.7 103/ul Normal 1.2-3.8 [facility] Comment on above: Performed By: #### C BC #### [facility] [address] [place] [address] Dr. Kirk García Lymphocytes/100 WBC (Bld) 28.7 % Normal 20.5-60.0 [facility] Comment on above: Performed By: #### C BC #### [facility] [address] [place] [address] Dr. Kirk García MANUAL DIFF REQ NO Normal [facility] Comment on above: Performed By: #### C BC #### [facility] [address] [place] [address] Dr. Kirk García MCH (RBC) [Entitic mass] 34.4 pg Critically high 25.9-34.0 [facility] Comment on above: Performed By: #### C BC #### [facility] [address] [address] [address] Kirk García MCHC (RBC) [Mass/Vol] 33.3 g/dL Normal 29.9-35.2 [facility] Comment on above: Performed By: #### C BC #### [facility] [address] [address] [address] Kirk García MCV (RBC) [Entitic vol] 103.1 fL Critically high 80.0-94.0 [facility] Comment on above: Performed By: #### C BC #### [facility] [address] [address] [address] Kirk García MONO # 0.9 103/ul Critically high 0.3-0.8 [facility] Comment on above: Performed By: #### C BC #### [facility] [address] [place] [address] Dr. Kirk García Monocytes/100 WBC (Bld) 15.8 % Critically high 1.7-12.0 [facility] Comment on above: Performed By: #### C BC #### [facility] [address] [address] [address] Kirk García NEUT # 3.1 103/ul Normal 1.4-6.5 [facility] Comment on above: Performed By: #### C BC #### [facility] [address] [place] [address] Dr. Kirk García Neutrophils/100 WBC (Bld) 53.3 % Normal 43.0-75.0 [facility] Comment on above: Performed By: #### C BC #### [facility] [address] [address] [address] Kirk García Platelet mean volume (Bld) [Entitic vol] 10.6 fL Normal 9.5-13.5 [facility] Comment on above: Performed By: #### C BC #### [facility] [address] [place] [address] Dr. Kirk García PLT 147 103/ul Critically low 150-450 [facility] Comment on above: Performed By: #### C BC #### [facility] [address] [address] [address] Kirk García RBC 3.84 106/ul Critically low 4.70-6.10 [facility] Comment on above: Performed By: #### C BC #### [facility] [address] [address] [address] Kirk García WBC 5.9 103/ul Normal 4.0-11.0 [facility] Comment on above: Performed By: #### C BC #### [facility] [address] [address] [address] Kirk García DIGOXINon 07-08-2022 DIG 1.1 ng/mL Normal 0.9-2.0 [facility] Comment on above: Performed By: #### U MICRO, ERUR #### [facility] [address] [place] [address] Dr. Kirk García PROF CHEM 8 (BAS METB)on Anion gap [Moles/Vol] 13.6 mmol/L Normal [facility] Comment on above: Performed By: #### U MICRO, ERUR #### [facility] [address] [address] [address] Kirk García Calcium [Mass/Vol] 9.5 mg/dL Normal 8.5-10.1 [facility] Comment on above: Performed By: #### U MICRO, ERUR #### [facility] [address] [address] [address] Kirk García Chloride [Moles/Vol] 97 mmol/L Critically low 98-107 [facility] Comment on above: Performed By: #### U MICRO, ERUR #### [facility] [address] [address] [address] Kirk García CO2 [Moles/Vol] 28.8 mmol/L Normal 21.0-32.0 [facility] Comment on above: Performed By: #### U MICRO, ERUR #### [facility] [address] [address] [address] Kirk García Creatinine [Mass/Vol] 1.43 mg/dL Critically high 0.70-1.30 [facility] Comment on above: Performed By: #### U MICRO, ERUR #### [facility] [address] [place] [address] Dr. Kirk García EGFR-AF POLISH 57 mL/min/1.73m2 Critically low >=60 [facility] Comment on above: Performed By: #### U MICRO, ERUR #### [facility] [address] [address] [address] Kirk García EGFR-NON AF POLISH 47 mL/min/1.73m2 Critically low >=60 [facility] Comment on above: Performed By: #### U MICRO, ERUR #### [facility] [address] [place] [address] Dr. Kirk García Glucose [Mass/Vol] 99 mg/dL Normal 74-106 [facility] Comment on above: Performed By: #### U MICRO, ERUR #### [facility] [address] [place] [address] Dr. Kirk García Potassium [Moles/Vol] 4.4 mmol/L Normal 3.5-5.1 [facility] Comment on above: Performed By: #### U MICRO, ERUR #### [facility] [address] [place] [address] Dr. Kirk García Sodium [Moles/Vol] 135 mmol/L Critically low 136-145 [facility] Comment on above: Performed By: #### U MICRO, ERUR #### [facility] [address] [place] [address] Dr. Kirk García Urea nitrogen [Mass/Vol] 29.0 mg/dL Critically high 7.0-18.0 [facility] Comment on above: Performed By: #### U MICRO, ERUR #### [facility] [address] [place] [address] Dr. Kirk García Urea nitrogen/Creatinin e [Mass ratio] 20.3 mg/mg Normal [facility] Comment on above: Performed By: #### U MICRO, ERUR #### [facility] [address] [place] [address] Dr. Kirk García Patient Educationon 03-16-20 22 Patient Education Oncology Prostate Cancer The [...] Are older than age 65. ? Are -Cypriot. ? Are obese. ? Have a family [...] Follow these instructions at home: ? Take nyur-krr-jawmifs and prescription medicines only as told by [...] cancer specialis (more content not included)... Normal [facility] Urology Office/Clinic Noteon 03-16-2022 Urology Office/Clinic Note [...] E&M of Est. Patient Moderate 30-39 Min 81205 Measure Post Void residual urine and/or bladder capacity by US- non-imaging 29028 Urnls Dip Stick Auto w/o Microscopy POC 05868 2. History of prostate cancer (Z85.46: Personal history of malignant neoplasm of prostate) s/p brachytherapy in 2004. PSA remained very low. pt decided to have PCP do annual monitoring when he saw PRW March 2021. Ordered: E&M of Est. Patient Moderate 30-39 Min 70351 Measure Post Void residual urine and/or bladder capacity by US- non-imaging 01925 Urnls Dip Stick Auto w/o Microscopy POC 33335 Orders: oxybutynin, 5 mg = 1 tab(s), Oral, Daily, # 90 tab(s), Refills(s) 3, Pharmacy: [facility], 183, cm, 03/16/22 9:10:00 EDT, Height/Length Dosing, 99.3, kg, 03/16/22 9:10:00 EDT, Weight Dosing Follow-up With When Contact Information KENNETH SHEPARD, MARYBETH Trivedi, LORNA Within 6 months [address] [place] [address] Business (1) Additional Instructions: Patient Education Prostate Cancer 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 Cholecystitis Gross hematuria History of prostate cancer Hyperlipidemia 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 Normal [facility] Comment on above: Result Comment: Elec tronically [...] Are older than age 65. ? Are -Cypriot. ? Are obese. ? Have a family [...] Follow these instructions at home: ? Take uoqc-yqm-xpfbjsp and prescription medicines only as told by [...] cancer specialis (more content not included)... Normal [facility] Urology Office/Clinic Noteon 01-06-2022 Urology Office/Clinic Note [...] worsen Ordered: Office Visit Level 4 Est 25600 2. History of prostate cancer (Z85.46: Personal history of malignant neoplasm of prostate) s/p brachytherapy in 2004. PSA remained very low. pt decided to have PCP do annual monitoring when he saw PRW at last visit March 2021. Ordered: Office Visit Level 4 Est 25114 Orders: Urnls Dip Stick Auto w/o Microscopy POC 59944 Total time spent reviewing previous notes/results/externa l [...] hematuria History of prostate cancer Hyperlipidemia Hypertension care home current use of antithrombotics/antip latelets Post-void dribbling [...] Use:., 02 (more content not included)... Normal [facility] Comment on above: Result Comment: Elec tronically Signed By: MARYBETH COOPER PA-C\.lisa\Date and Time Signed: 01/06/22 16:55 NYDIA Corey 07-29-2021 MANOJ Telephone ([employer]) HEATHSAMSON Del Cid ([id number]) 1935 M Date Time Provider Department 07/29/21 DALILA RILEY During your visit today, we recorded the following information about you: Dalila Riley RN 07/29/2021 10:36 AM Signed Spoke with Samson, he is currently still at the hotel and is planning on going to the [facility]. We discussed pain control and did remind patient use of Aleve or Motrin in between narcotics as the narcotics can increase issues with constipation. We did discuss use of Miralax if no Bm by Monday and patients states SC will help him with that. Encouraged to keep up with water intake especially since no appetite today. Allergies As of Date: 07/29/2021 (No Known Allergies) Date Reviewed: 07/28/2021 Reviewed by: Aracelis Ochoa RN - Fully Assessed Reason for Visit: Remote Inpatient Coder - Other [3608] Cmt: post-op Prescriptions as of 07/29/2021 - [...] Encounter Status:Closed by DALILA RILEY on 07/29/21 Normal [facility] ANES POSTPROC EVALon 021 ANES POSTPROC EVAL HNO ID: [id number] Author: Ramiro Esquivel MD Service: Anesthesiology Author [...] July 28, 2021 TIME: 1:35 PM CSN: [id number] [facility] ANES PRE-OPon 07-28-2021 ANES PRE-OP HNO ID: [id number] Author: Ramiro Esquivel MD Service: Anesthesiology Author [...] BP 124/63 07/28/21 0954 Pulse Resp 16 07/28/21953 Temp 36.1 ?C (96.9 ?F) 07/28/21953 SpO2 95 % 07/28/21953 Facility-Administered Medications as of 07/28/2021 Medication Dose Route Frequency - lidocaine 10 mg/mL (1 %) 1-2 mg injection (XYLOCAINE) 0.1-0.2 mL INTRADERMAL PRN - lactated ringers iv infusion 5-30 mL/hr INTRAVENOUS CONTINUOUS - [START ON 07/29/2021] ampicillin-sulbactam iv piggyback 3 g in NaCl 0.9% 100 mL Vial-Bag (UNASYN) 3 g INTRAVENOUS Manager [place] to OR - [COMPLETED] acetaminophen 1,000 mg [...] July 28, 2021 TIME: 10:17 AM CSN: [id number] [facility] HISTORY PHYSICALon HISTORY PHYSICAL HNO ID: [id number] Author: Jewel Cary III, MD Service: General [...] Electronic Medical Record dated 07/19/2021. SIGNATURE: Jewel Cary III, MD PATIENT NAME: Samson Joe DATE: July 28, 2021 TIME: 10:16 AM [facility] OPERATIVE NOon 07-28-2021 OPERATIVE NO HNO ID: [id number] Author: Jewel Cary III, MD Service: General Surgery Author Type: Physician Type: Operative Report Filed: 07/28/2021 11:24 AM Note Text: OPERATIVE REPORT LOG ID: [id number] SURGERY/PROCEDURE DATE: 07/28/2021 INCISION/PROCEDURE START TIME: 10:47 AM INCISION CLOSE/PROCEDURE END TIME: 11:24 AM SURGEON: Jewel Cary III, MD ?? INSURANCE BILLER: Monserrat Salazar PA-C? ? OPERATION: Laparoscopic cholecystectomy (29883). ? ANESTHESIA: GETA and 10 mL of [...] July 28, 2021 TIME: 11:22 AM Normal [facility] SURGICAL PATHOLOGYon 021 SURGICAL PATHOLOGY Specimen originated from [facility] Specimen #: [id number] Submitting Physician: JEWEL CARY MD FINAL DIAGNOSIS [...] The mucosa is walker-red, hyperemic, and granular. Face Hardener sections are submitted as follows: A1 cystic duct margin and wall, A2 fundus. SLE/ch 07/28/2021 Gross [facility] [place] [address] Date of Report: 07/29/2021 Date of Procedure: 07/28/2021 Date of Receipt: 07/28/2021 Submitted by: JEWEL CARY MD Location: AV Diagnostic interpretation performed at [facility] [place] [address]. CLIA Number: [id number] Normal [facility] Comment on above: Performed By: #### S #### See report for performing lab information. HISTORY PHYSICALon HISTORY PHYSICAL HNO ID: [id number] Author: Denita Simmons PA-C Service: ? Author Type: Physician Electric Track Switch Maintainer Type: HANDP Filed: 07/19/2021 4:18 PM Note [...] in November 2019. He was admitted to [facility] due to Yuni cystitis. Providers at [...] 20's - PACEMAKER 2006 - PACEMAKER 01/2021 [employer] placed - PAST SURGICAL HISTORY OF [...] fevers. 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 No neurological symptoms or problems. Respiratory: Negative for Asthma, Dyspnea, Tobacco Use, URI < 2 weeks +PND - can rarely trigger cough, but stable, no acute symptoms Cardiovascular: +Pacemaker ([employer]) - A-fib hx, CHB no symptoms +Heart failure - on digoxin, Lasix. Chronic lower extremity edema. +Valve history - s/p Mitral and tricuspid repair 2017 - Dr. Ulysses Duran - Ra (more content not included)... [facility] CNCOon 07-13-2021 CNCO Letter Text Normal [facility] CNPNon 07-13-2021 CNPN Telephone (GENSAV) SAMSON JOE ([id number]) 1935 M Date Time Provider Department 07/13/21 JEWEL CARY III GENAKOSUA During your visit today, we recorded the following information about you: Marybeth Laureano 07/13/2021 12:24 PM Signed Pt was seen by Dr. Cary. Pt has been recommended for steffi carter under general. Please advise if pt has Cardiac clearance and can stop ASA for 7 days prior to surgery date. Pt scheduled on 07-21-21 for surgery. Please notify general surgeons office by routing message back to Angel ROSARIO ASSET PROTECTION AGENT, prior to notifying the patient. Marybeth Laureano 07/13/2021 1:53 PM Signed Pt seeing Cardi Dr Ulysses Duran @ [facility] 216 Will send clearance to this provider Cat Gibbs 07/15/2021 11:03 AM Signed Cari from Alondra Duran's office called and asked to have clearance letter fax to [phone]. Thank you. Marybeth Laureano 07/15/2021 11:21 AM Signed Letter reprinted and faxed to Alondra office with confirmation received. Denita Simmons PA-C 07/19/2021 11:54 AM Signed Received signed letter from Dr. Duran's office and will have it scanned. I [...] Yes, post op can be virtual. Marybeth Georgi 07/20/2021 10:19 AM Signed Post op changed [...] Encounter Status:Closed by MARYBETH LAUREANO on 07/13/21 [facility] 07-12-2021 CNPN Telephone (GENSAV) HEATHSAMSON Del Cid ([id number]) 1935 M Date Time Provider Department 07/12/21 JEWEL CARY III During your visit today, we recorded the following information about you: Marybeth Georgi 07/13/2021 2:08 PM Addendum Cur received Pt needs cardiac clearance Dr Kody Lynn Tele enct sent Spoke w pt he now sees Dr Ulysses Duran at [facility]. Letter electronically sent. Marybeth Georgi 07/13/2021 3:25 PM Signed electronic faxed failed printed and sent to verified fax number of [phone]. Confirmed received. Marybeth Georgi 07/19/2021 3:02 PM Signed PACC received clearance from Dr Duran. Pt cleared scheduled 07-28-21 Allergies As of Date: 07/12/2021 (No Known Allergies) Date Reviewed: 12/08/2019 Reviewed by: Katherine (Rn) DORIAN Ayala - Fully Assessed Reason for [...] cholecystitis [K81.0] 12/05/2019 12/09/2019 Encounter Status:Closed by GEORGIEMILMARYBETH on 07/19/21 [facility] HISTORY PHYSICALon HISTORY PHYSICAL HNO ID: [id number] Author: Jewel Cary III, MD Service: ? Author Type: Physician Type: HANDP Filed: 07/09/2021 1:32 PM Note Text: NEW VIRTUAL CONSULT I had a virtual consult with Mr. Joe today. This consult was requested by Dr Timo Bar DO for an opinion regarding gallbladder problems , and my final recommendations will be communicated to the requesting health care provider by way of the shared medical record for internal providers or letter via the [employer] Postal Service for external providers. HISTORY: He [...] stored in (more content not included)... Normal [facility] OPERATIVE REPORTon OPERATIVE REPORT NAME: SAMSON JOE MR#: [id number] SURGEON: Ulysses Duran MD DATE OF SURGERY: 02/01/2021 OPERATIVE REPORT PREOPERATIVE DIAGNOSIS: End of life pacemaker pulse generator. POSTOPERATIVE DIAGNOSIS: End of life pacemaker pulse generator. PROCEDURE: Change out of end of life pacemaker pulse generator. DESCRIPTION OF PROCEDURE: scallop shucker to the OR, he received 1 g [...] inserted. The new pulse generator is a [employer] Accolade MRI safe pacemaker, model #L311 serial #[id number]. The pulse generator was attached to the [...] by the end of the day today. MD GLORIA KAHN/ANDRIA/[id number] E/S: Ulysses Duran MD 02/08/21 0856 Electronically Signed [facility] PT NAME: SAMSON JOE MR#: [id number] [address] [place] [address] ACCT: [id number] : [birth year] OPERATIVE REPORT Normal [facility] SURGon 02-01-2021 SURG Normal [facility] Comment on above: Result Comment: RUN DATE: 02/02/21 [facility] *LIVE* PAGE 1RUN TIME: 1351 Specimen InquiryRUN USER: [employer] Name: SAMSON JOE : [birth year] Sex:M Attend Dr: Ulysses Duran [facility]#: [id number] Unit#: [id number] Status: [facility] Location: [facility]17-01 Received: 02/01/21 Status: PRIYANKA Patterson#: [id number]#: [id number] Collected: 02/01/21-123 [facility] [facility]: Ulysses Duran MDTISSUES: A. EXPLANTED HARDWARE MICROSCOPIC EXAM: N/A DIAGNOSIS: EXPLANTED HARDWARE, REMOVAL: - PULSE GENERATOR (GROSS DIAGNOSIS ONLY) Signed Signature on File KT SCHAFER 02/02/21 135[address] [facility] Name: SAMSON JOE [facility] Hosp Num: [id number] A Ministry of Age / Sex: 85/M [facility] Physician: Ulysses Duran MD [address] [place] [address] Location: SAME DAY SURGERY END OF REPORT Performed By: #### P SURG ####Test performed at: [place] [address] Vital Signs Date Time Vital Sign Value Performing Clinician Facility 11-22-2023 10:00-0500 Body height 182.88 cm [email or web address] Other [facility] Other 11-22-2023 10:00-0500 Body mass index (BMI) [Ratio] 28.67 kg/m2 [email or web address] Other [facility] Other 11-22-2023 10:00-0500 Body weight 95.89 kg [email or web address] Other [facility] Other 11-22-2023 10:00-0500 Diastolic blood pressure 64 mm[Hg] [email or web address] Other [facility] Other 11-22-2023 10:00-0500 Respiratory rate 16 /min Timo Ball Other [facility] Other 11-22-2023 10:00-0500 SaO2% (BldA) [Mass fraction] 95 % Timo Ball Other [facility] Other 11-22-2023 10:00-0500 Systolic blood pressure 102 mm[Hg] Timo Ball Other [facility] Other 10-03-2023 13:45-0500 Body height 182.88 cm Timo Ball Other [facility] Other 10-03-2023 13:45-0500 Body mass index (BMI) [Ratio] 29.02 kg/m2 Timo Ball Other [facility] Other 10-03-2023 13:45-0500 Body weight 97.07 kg Timo Ball Other [facility] Other 10-03-2023 13:45-0500 Diastolic blood pressure 67 mm[Hg] Timo Ball Other [facility] Other 10-03-2023 13:45-0500 Respiratory rate 16 /min Timo Ball Other [facility] Other 10-03-2023 13:45-0500 Systolic blood pressure 106 mm[Hg] Timo Ball Other [facility] Other 09-29-2023 13:45-0400 Body height 182.88 cm Timo Ball Other [facility] Other 08-31-2023 11:00-0400 Body height 182.88 cm Timo Ball Other [facility] Other 08-31-2023 11:00-0400 Body mass index (BMI) [Ratio] 28.23 kg/m2 Timo Ball Other [facility] Other 08-31-2023 11:00-0400 Body weight 94.44 kg Timo Ball Other [facility] Other 08-31-2023 11:00-0400 Diastolic blood pressure 61 mm[Hg] Timo Ball Other [facility] Other 08-31-2023 11:00-0400 Respiratory rate 12 /min Timo Ball Other [facility] Other 08-31-2023 11:00-0400 Systolic blood pressure 105 mm[Hg] Timo Ball Other [facility] Other 05-26-2023 11:00-0400 Body height 182.88 cm Timo Ball Other [facility] Other 05-26-2023 11:00-0400 Body mass index (BMI) [Ratio] 28.69 kg/m2 Timo Ball Other [facility] Other 05-26-2023 11:00-0400 Body weight 95.98 kg Timo Ball Other [facility] Other 05-26-2023 11:00-0400 Diastolic blood pressure 66 mm[Hg] Timo Ball Other [facility] Other 05-26-2023 11:00-0400 Respiratory rate 16 /min Timo Ball Other [facility] Other 05-26-2023 11:00-0400 Systolic blood pressure 116 mm[Hg] Timo Ball Other [facility] Other 01-20-2023 11:00-0500 Body height 182.88 cm Timo Ball Other [facility] Other 01-20-2023 11:00-0500 Body mass index (BMI) [Ratio] 28.53 kg/m2 Timo Ball Other [place] [employer] Other 01-20-2023 11:00-0500 Body weight 95.44 kg Timo Ball Other [place] [employer] Other 01-20-2023 11:00-0500 Diastolic blood pressure 64 mm[Hg] Timo Ball Other [facility] Other 01-20-2023 11:00-0500 Respiratory rate 16 /min Timo Ball Other [facility] Other 01-20-2023 11:00-0500 Systolic blood pressure 102 mm[Hg] Timo Ball Other [facility] Other 09-21-2022 12:18-0400 Blood Pressure Location MARYBETH KENNETH [facility] 09-21-2022 12:18-0400 Diastolic blood pressure 58 mm[Hg] MARYBETH KENNETH [facility] 09-21-2022 12:18-0400 Heart rate 80 /min MARYBETH KENNETH [facility] 09-21-2022 12:18-0400 Respiratory rate 16 /min MARYBETH KENNETH [facility] 09-21-2022 12:18-0400 Systolic blood pressure 111 mm[Hg] MARYBETH COOPER [facility] 03-16-2022 08:49-0400 Blood Pressure Location MARYBETH COOPER [facility] [employer] 03-16-2022 08:49-0400 Diastolic blood pressure 65 mm[Hg] MARYBETH COOPER [facility] [employer] 03-16-2022 08:49-0400 Heart rate 75 /min MARYBETH COOPER [facility] [employer] 03-16-2022 08:49-0400 Systolic blood pressure 93 mm[Hg] MARYBETH COOPER [facility] [employer] Encounters Encounter Date Encounter Type Care Provider Facility Start: 11-22-2023 End: 11-22-2023 ambulatory Timo Penny Other [facility] Other Start: 11-22-2023 Telephone encounter Timo Olivas [facility] Start: 11-22-2023 Transitional care [facility] 14 day discharge Timo RAMIREZ [facility] Start: 11-17-2023 End: 11-17-2023 ambulatory Timo Penny Other [facility] Other Start: 11-17-2023 Telephone encounter Timo DIEGO [facility] Start: 10-04-2023 End: 10-04-2023 ambulatory Timo Bar Other [facility] Other Start: 10-04-2023 Telephone encounter Timo [facility] Start: 10-03-2023 End: 10-03-2023 ambulatory Timo Bar Other [facility] Other Start: 10-03-2023 Office outpatient vi sit 15 minutes Timo Bar [facility] Start: 09-29-2023 End: 09-29-2023 ambulatory Timo Bar Other [facility] Other Start: 09-29-2023 Nursing evaluation o f patient and report Timo Bar [facility] Start: 09-06-2023 End: 09-06-2023 ambulatory Timo Bar Other [facility] Other Start: 09-06-2023 Telephone encounter Timo Bar [facility] Start: 08-31-2023 End: 08-31-2023 ambulatory Timo Bar Other [facility] Other Start: 08-31-2023 Patient encounter procedure Timo Bar [facility] Start: 05-26-2023 End: 05-26-2023 ambulatory Timo Bar Other [facility] Other Start: 05-26-2023 Office outpatient vi sit 25 minutes Timo Bar [facility] Start: 05-02-2023 End: 05-02-2023 ambulatory [facility] Start: 04-17-2023 End: 04-17-2023 ambulatory JUAN LUIS [facility] Start: 01-20-2023 End: 01-20-2023 ambulatory Timo Bar Other [facility] Other Start: 01-20-2023 Office outpatient vi sit 25 minutes Timo Bar [facility] Start: 09-21-2022 End: 09-22-2022 ambulatory MARYBETH COOPER Facility:[facility] Start: 09-21-2022 End: 09-21-2022 Patient encounter procedure MARYBETH COOPER [facility] Start: 09-06-2022 End: 09-07-[address] TIMO BAR Facility:[facility] Start: 08-14-2022 End: 08-15-[address] TIMO BAR Facility:[facility] Start: 08-03-2022 End: 08-04-[address] TIMO BAR Facility:[facility] Start: 07-08-2022 End: 07-09-[address] TIMO BAR Facility:[facility] Start: 03-16-2022 End: 03-17-2022 ambulatory MARYBETH COOPER Facility:[facility] [place] Start: 03-16-2022 End: 03-16-2022 Patient encounter procedure MARYBETH COOPER [facility] Start: 01-06-2022 End: 01-07-2022 ambulatory MARYBETH COOPER Facility:[facility] [place] Start: 01-05-2022 ambulatory MARYBETH COOPER Facility :[facility] Start: 12-07-2018 Patient encounter procedure Facility:[id number] Start: 12-06-2018 Patient encounter procedure Facility:[id number] Procedures Date Procedure Procedure Detail Performing Clinician Start: 07-08-[address] CURRIE [place] Comment on above: Performed By: #### U MICRO, ERUR #### [facility] [address] [place] [address] Dr. Kirk García Start: 07-28-2021 Cholecystectomy SHADIA COOPER Start: 11-27-2006 Colonoscopy MARYBETH GRAVES Start: 11-27-2004 Implantation of radi oactive seed into prostate MARYBETH COOPER Repair of right ingu inal hernia MARYBETH COOPER Transrectal biopsy o f prostate using ultrasound guidance MARYBETH COOPER Immunizations Immunization Date Immunization Notes Care Provider Dari pérez 09-29-2023 influenza, high dose seasonal, preservative-free Timo Bar Other [facility] Other 09-07-2022 influenza virus vaccine, split virus (incl. purified surface antigen) Timo Bar Other [facility] Other 04-26-2022 SARS-CoV-2 mRNA (hethwcquoyc-zejy-gsdlu se) vaccine MARYBETH COOPER [facility] 09-02-2021 SARS-CoV-2 (COVID-19 ) mRNA BNT-162b2 vax MARYBETH COOPER [facility] 08-18-2021 influenza virus vaccine, unspecified formulation MARYBETHKOURTNEY COOPER [facility] 08-13-2021 influenza virus vaccine, split virus (incl. purified surface antigen) Timo Bar Other [facility] Other 02-23-2021 SARS-CoV-2 (COVID-19 ) mRNA BNT-162b2 vax MARYBETH COOPER [facility] 02-03-2021 SARS-CoV-2 (COVID-19 ) mRNA BNT-162b2 vax MARYBETH COOPER [facility] Comment on above: Result Comment: 2021: [id number] 01-25-2021 SARS-CoV-2 (COVID-19 ) mRNA BNT-162b2 vax MARYBETH COOPER [facility] 08-31-2020 influenza virus vaccine, split virus (incl. purified surface antigen) Timo Bar Other [facility] Other 08-30-2019 influenza virus vaccine, split virus (incl. purified surface antigen) Timo Bar Other [facility] Other 08-30-2019 influenza virus vaccine, unspecified formulation MARYBETH COOPER [facility] 08-29-2018 influenza virus vaccine, split virus (incl. purified surface antigen) Timo Bar Other [facility] Other 08-29-2018 influenza virus vaccine, unspecified formulation MARYBETH COOPER [facility] 08-03-2017 influenza virus vaccine, split virus (incl. purified surface antigen) Timo Bar Other [facility] Other 08-03-2017 influenza virus vaccine, unspecified formulation MARYBETH COOPER [facility] 09-05-2016 influenza virus vaccine, split virus (incl. purified surface antigen) Timo Bar Other [facility] Other 09-05-2016 influenza virus vaccine, unspecified formulation MARYBETH COOPER [facility] 10-16-2015 pneumococcal conjuga te vaccine, 13 valent Timo Bar Other [facility] Other 09-01-2015 influenza virus vaccine, split virus (incl. purified surface antigen) Timo Bar Other [employer] [facility] Other 09-15-2014 tetanus and diphther ia toxoids, adsorbed, preservative free, for adult use (5 Lf of tetanus toxoid and 2 Lf of diphtheria toxoid) Timo Bar Other [facility] Other 08-27-2013 tetanus and diphther ia toxoids, adsorbed, preservative free, for adult use (5 Lf of tetanus toxoid and 2 Lf of diphtheria toxoid) Timo Bar Other [facility] Other 01-10-2007 pneumococcal polysaccharide vaccine, 23 valent Timo Bar Other [facility] Other 1999 pneumococcal polysaccharide vaccine, 23 valent MARYBETH COOPER [facility] Payers Date Payer Category Payer Unknown [id number] 1959 Medicare [id number] 1960 Unknown [id number] 1935 Unknown [id number] 2.16. [id number] 1934 Unknown [id number] 2.16. [id number] 1934 Unknown [id number] 2.16.8 [id number] 1934 Unknown [id number] 2.16.8 [id number] 1934 Unknown [id number] 2.16.8 [id number] 1934 Unknown [id number] 2.16.8 [id number] 1934 Unknown [id number] 2.16.8 [id number] 1934 Unknown [id number] 2.16.84 [id number] 1934 Unknown [id number] 2.16.84 [id number] 1934 Unknown [id number] 2.16.84 [id number] 1934 Unknown [id number] 2.16.84 [id number] Medicare [id number] Unknown [id number] 2.16.8 [id number] Social History Date Type Detail Facility Start: 03-16-2022 End: 09-21-2022 Tobacco smoking status Never smoked tobacco (finding) [facility] Tobacco smoking status Never [facility] Sex Assigned At Male [facility] Functional Status Date Assessment Result Facility 09-21-2022 Functional Status N/A [facility] Clinical Notes 07-28-2021 to 11-29-2023 Note Date & Type Note Facility 11-29-2023 Note [id number] = 4 12/22/2016 - s/p [facility]ER[facility] 11-29-2023 Note H/O MV ring annulopl asty Monitor with echcoardiogram [facility] 11-29-2023 Note stable [facility] 11-29-2023 Note Will check BMP [facility] 11-29-2023 Note EF 35-40% with RV di litation [facility] III Continue GDMT- Diuretic therapy Monitor daily weights, I&O, fluid restriction 1.5-2L/day, renal function and electrolytes- [facility] 11-29-2023 Note Monitor symptoms and routine echocardiogram [facility] 11-29-2023 Note Device interrogation q 6 months [facility] 11-22-2023 Evaluation note Encounter Date Diagnosis Assessment Notes Oct, 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 Daily weights w/ instructions to take extra Lasix for > 3lbs gain. Low salt diet and fluid restricted to 40oz Oct, Acute on chronic HFrEF (heart failure with reduced ejection fraction) (ICD-10 - I50.23) Instructed on low salt diet, exercise and daily weights. Instructed to notify office for any unexpected weight gain > 3lbs and/or increased dyspnea, difficulty breathing during sleep, worsening lower extremity swelling, chest pain or lightheadedness. Reviewed GDMT w/ beta blockers, JAQUAN/ARB/ARNI, MRA and SGLT Plan to switch Metoprolol tartrate to succinate and add SGLT-2 Holding JAQUAN due to worsening GFR Continue Digoxin and Furosemide Oct, Paroxysmal atrial fibrillation (ICD-10 - I48.0) This patient is in NSR or rate controlled. This patient is anticoagulated to prevent thromboembolic events. They are maintaining regular scheduled appts with their alteration tailor apprentice. s/p LAAO procedure, off anticoagulation Oct, Pulmonary hypertension (ICD-10 - I27.20) Group 2 PH (LVEF 35%) Optimize left ventricular function to improve symptoms. GDMT reviewed Oct, Essential hypertension (ICD-10 - I10) This patient is instructed to consume a healthy, low-fat, low-salt diet. They are also encouraged to continue exercise to achieve/maintain a normal BMI. Oct, Chronic venous insufficiency (ICD-10 - I87.2) Avoid salt and elevate lower extremities, support stockings, inspect legs and feet daily for blisters and ulcerations. Oct, Second degree heart block (ICD-10 - I44.1) PM inserted PM checkups every 6months. [facility] Other 11-07-2023 Evaluation note* Encounter Date Diagnosis Assessment Notes Treatment Notes Treatment Clinical Notes Sep, Acute idiopathic gout of left [...] continue exercise to achieve/maintain a normal BMI. [facility] Other 10-05-2023 Evaluation note* Encounter Date Diagnosis [...] are maintaining regular scheduled appts with their alteration tailor apprentice. No bleeding complications Aug, Chronic venous insufficiency [...] (ICD-10 - Z79.899) Check labs: CBC, Dig [facility] Other 06-30-2023 Evaluation note* Encounter Date Diagnosis [...] are maintaining regular scheduled appts with their alteration tailor apprentice. No bleeding complications Apr, Chronic venous insufficiency (ICD-10 - I87.2) Avoid salt and elevate lower extremities, support stockings, inspect legs and feet daily for blisters and ulcerations. Apr, Second degree heart block (ICD-10 - I44.1) PM inserted, routine PM checks w/ [facility] Apr, History of prostate cancer (ICD-10 - Z85.46) No s/s recurrence. No active treatment at this time. [facility] Other 05-22-2023 NotePatient is here today to establish care Review of Systems HENT: Positive for ear discharge. Eyes: Positive for vision loss in left eye and vision loss in right eye. Respiratory: Positive for cough. All other systems reviewed and are negative.[facility] 04-17-2023 NoteCardiovascular Medicine [facility] SUBJECTIVE Chief Complaint Patient presents with Establish Care HPI Samson Joe is a 87 [...] fibrillation (CMS/HCC) 3. SSS (sick sinus syndrome) (CMS/HCC) 4. Presence of cardiac pacemaker 5. Benign hypertensive heart disease with heart failure (CMS/HCC) 6. Chronic kidney disease, unspecified CKD stage [...] puffier lately. -Will ob (more content not included)...[facility] 01-20-2023 Evaluation note* Encounter Date Diagnosis Assessment [...] are maintaining regular scheduled appts with their alteration tailor apprentice. 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 Needs new Canvas Repairer, suggest [facility] here in [place] Dec, History of prostate cancer (ICD-10 - Z85.46) No s/s recurrence [facility] Other [id number] Hospital Discharge instructions Patient Education 09/21/2022 12:37:02 [...] who: Are older than age 65. Are -Cypriot. Are obese. Have a family history of [...] cells. Follow these instructions at home: Take pqgo-pxr-nnxxtlv and prescription medicines only as told by [...] 11/13/2006 Document Revised: 10/26/2018 Document Reviewed: 07/24/2017 [employer] Patient Education [employer]. Follow Up Care 03/16/2022 09:37:24 With:MARYBETH COOPER PA-C, URL Address: [address] [place] [phone] When: only if needed [facility] 04[facility]22 Hospital Discharge instructions Patient Education 03/16/2022 [...] who: Are older than age 65. Are -Cypriot. Are obese. Have a family history of [...] cells. Follow these instructions at home: Take cwgn-mxk-pmvapri and prescription medicines only as told by [...] 11/13/2006 Document Revised: 10/26/2018 Document Reviewed: 07/24/2017 [employer] Patient Education 2020 [employer]. Follow Up Care 01/28/2022 16:02:47 With:KENNETH SHEPARD MARYBETH Farooq, URL Address: [address] [place] [address] Business (1) When:6 months [facility] 09-21-2021 NoteHNO ID: [id number] Author: Jewel Cary III, MD Service: ? Author Type: Physician Type: Progress Notes Filed: 08/17/2021 9:33 AM Note Text: This patient is post op from laparoscopic cholecystectomy. He has had no symptoms. P.E. The wounds are healing well without evidence of infection. I reviewed the pathology report with Samson. Assessment Satisfactory course Plan: Return to office PRN. Jewel Cary III, [facility]09-01-2021 NoteHNO ID: [id number] Author: Jaspal Phipps APRN.AFLOAT CRYPTOLOGIC MANAGER Service: Anesthesiology Author Type: Nurse Strategic Accounts Manager Type: Anesthesia Procedure Notes Filed: 07/28/2021 10:50 AM Note Text: ANESTHESIOLOGY PROCEDURE NOTE Airway General Information Procedure Start Time/Medication Administration: 07/28/2021 10:40 AM Patient location during procedure: OR Patient identity confirmed: arm band and patient Staffing Anesthesiologist: Ramiro Esquivel MD AFLOAT CRYPTOLOGIC MANAGER: Jaspal Phipps APRN.AFLOAT CRYPTOLOGIC MANAGER Performed by: AFLOAT CRYPTOLOGIC MANAGER Indications and Patient Condition Preoxygenated: yes Patient [...] to 7.0 ETT-no difficulty. SIGNATURE: Jaspal Phipps APRN.CRNA PATIENT NAME: Samson Joe DATE: July 28, 2021 TIME: 10:48 AM CSN: [id number] HospitalEvaluation + Plan note Future Appointments Appointment Date:09/21/2022 10:00:00 AM Scheduled Provider:MARYBETH COOPER PA-C Location:[facility] Appointment Type:URO Office Visit [facility] evaluation noteNo InformationNortTactical Awareness [employer] Other History general Narrative - Reported* Type [...] [employer] 11/2029 Hospitalization History see surgical history [facility] Other History general Narrative - Reported* Type [...] 07/28/2021 Surgical History CYSTOSCOPY 04/2020 Surgical History MV and TV repair, MAZE procedur e, PM insertion 2016 Surgical History LHC (minor coronary disease) 20 16 Hospitalization History see surgical history [facility] Other Hospital course Narrative No data available for this section [facility] progress note No data available for this section [facility] Summary Purpose Family History No Family History [...] section and content) DATE CREATED AUTHOR 12/17/2018 [facility] DATE CREATED AUTHOR AUTHOR'S ORGANIZ ATION 07/31/2021 [facility] DATE CREATED AUTHOR AUTHOR'S ORGANIZ ATION 07/31/2021 [facility] DATE CREATED AUTHOR AUTHOR'S ORGANIZ ATION 12/24/2021 [facility] DATE CREATED AUTHOR AUTHOR'S ORGANIZ ATION 12/26/2021 [facility] DATE CREATED AUTHOR AUTHOR'S ORGANIZ ATION 09/22/2022 [facility] DATE CREATED AUTHOR AUTHOR'S ORGANIZ ATION 10/05/2022 [facility] DATE CREATED AUTHOR AUTHOR'S ORGANIZ ATION 11/30/2023 [facility] Patient Care team informatio n (unrecognized section and content) Personnel Name: TIMO BAR DO Address: Address: [address] [facility] [place] [address]- REASON FOR VISIT (unrecogniz ed section and content) 6 MONTH FOLLOW UP4 MONTH [facility] LOW UPWellnessLab resultsflu shotankle/foot swellingRefillTCMSURGICAL HOSPITAL [facility] [place] HHTBHMedication Garrett FOR RECORDS PERTAINING TO PATIENTS WHO ARE [...] BE BASED ON THE PRIMARY CLINICAL RECORDS. [facility]. provides no warranty or guarantee of the accuracy or completeness of information in this document.
--- NOTE | 2023-12-03 11:06 | XR_ITS ---
The [address] [address] Patient Name: REINA JOE MRN: [id number] date: 1935 Sex: M Assigned Patient Location: ER Current Patient Location: ED.MAIN Accession/Order Number: [id number] Exam Date: 12/03/2023 11:10 Report Date: 12/03/2023 11:24 At the request of: DENILSON SIMON Procedure: XR chest 1V EXAM: XR chest 1V HISTORY: sob COMPARISON: 11/17/2023. TECHNIQUE: Chest one view FINDINGS: There are coronary artery bypass grafting changes and left atrial appendage clip with moderate cardiomegaly. Mild pulmonary vascular congestion. There is likely a tiny amount of fluid within the left horizontal fissure but no significant layering effusion is seen. No consolidation. No pneumothorax. There is a left pectoral cardiac pacemaker device. XR/XR chest 1V IMPRESSION: 1. Pulmonary vascular congestion, with moderate cardiomegaly, cardiac pacemaker and coronary artery bypass grafting changes with left atrial appendage clip. Electronically authenticated by: MIR MCRAE Date: 12/03/2023 11:24
--- NOTE | 2023-12-03 11:06 | ECG_ITS ---
The [facility] Test Date: 2023-12-03 Pat Name: REINA JOE Department: Room: - Gender: Male Still Operator Batch Or Continuous: : 1935 Requested By: NIRU FRANCIS Order Number: [id number] Reading MD: NIRU FRANCIS Measurements Intervals [place] Rate: 78 P: -46783 NV: -34890 QRS: -71 QRSD: 222 T: 114 QT: 480 QTc: 513 Interpretive Statements [id number] Electronic ventricular pacemaker Electronically Signed On 12-04-2023 7:00:22 EST by NIRU FRANCIS
[2023-12-03 11:44] LABS: Basophils Percent Auto 0.6 % (0.2-2.0); Eosinophils Absolute Auto 0.1 10^3/uL (0.0-0.7); Eosinophils Percent Auto 1.3 % (0.9-7.0); Hematocrit 34.7 % (42.0-54.0); Hemoglobin 11.2 g/dL (14.0-18.0); Immature Granulocytes Abs Auto 0.01 10^3/uL (0.00-0.03); Immature Granulocytes Pct Auto 0.2 % (0.0-0.5); Lymphocytes Absolute Auto 0.7 10^3/uL (1.2-3.8); Lymphocytes Percent Auto 14.6 % (20.5-60.0); Mean Corpuscular HGB Conc 32.3 g/dL (29.9-35.2); Mean Corpuscular Hemoglobin 34.5 pg (25.9-34.0); Mean Corpuscular Volume 106.8 fL (80.0-94.0); Mean Platelet Volume 11.2 fL (9.5-13.5); Monocytes Absolute Auto 0.7 10^3/uL (0.3-0.8); Monocytes Percent Auto 14.4 % (1.7-12.0); Neutrophils Absolute Auto 3.3 10^3/uL (1.4-6.5); Neutrophils Percent Auto 68.9 % (43.0-75.0); Platelet Count 109 10^3/uL (150-450); Red Blood Count 3.25 10^6/uL (4.70-6.10); Red Cell Distribution Width 14.9 % (11.0-15.0); White Blood Count 4.7 10^3/uL (4.0-11.0)
[2023-12-03 12:40] LABS: Alanine Aminotransferase 26 U/L (16-63); Albumin Globulin Ratio 0.7; Albumin Level 3.3 g/dL (3.4-5.0); Alkaline Phosphatase 111 U/L (46-116); Anion Gap 14.4; Aspartate Amino Transferase 14 U/L (15-37); BUN Creatinine Ratio 31.7; Calcium 9.6 mg/dL (8.5-10.1); Carbon Dioxide 28.7 mmol/L (21.0-32.0); Chloride 99 mmol/L (98-107); Estimated GFR (African America 56 (>=60); Estimated GFR (Non-African Ame 46 (>=60); Globulin 4.5 g/dL; Glucose 137 mg/dL (74-106); Magnesium 2.4 mg/dL (1.8-2.4); Potassium 4.1 mmol/L (3.5-5.1); Sodium 138 mmol/L (136-145); Total Protein 7.8 g/dL (6.4-8.2); Troponin I High Sensitivity 46.1 pg/mL (4.0-76.1)
[2023-12-03 12:44] LABS: Digoxin 1.3 ng/mL (0.9-2.0)
--- NOTE | 2023-12-03 12:51 | ED.SOB1 ---
HPI - SOB/Dyspnea General Chief Complaint: Shortness of Breath/Dyspnea Stated Complaint: SHORTNESS OF BREATH Time Seen by Provider: 12/03/23 10:58 Source: patient Mode of arrival: ambulance Limitations: no limitations History of Present Illness HPI Narrative: The patient presenting to us with a few days history of shortness of breath at rest and sometimes when he sleeping flat he also is complaining of increase in his bilateral leg edema. No changes his cough regarding colored sputum or any amount. And the patient have no fever or chills no abdominal pain no chest pain at any time. No nausea no vomiting no diarrhea Related Data Home Medications Medication Instructions Recorded Confirmed aspirin 81 mg tablet,delayed 81 mg PO DAILY 11/15/23 12/03/23 release (Janice Low Dose Aspirin) digoxin 125 mcg (0.125 mg) tablet 0.125 mg PO Q24H 11/15/23 12/03/23 furosemide 40 mg tablet 40 mg PO Q24H 11/15/23 12/03/23 lisinopril 2.5 mg tablet 2.5 mg PO Q24H 11/15/23 12/03/23 oxybutynin chloride 5 mg 5 mg PO Q24H 11/15/23 12/03/23 tablet,extended release 24 hr dapagliflozin propanediol 5 mg 5 mg PO DAILY 12/03/23 12/03/23 tablet (Farxiga) metoprolol succinate 50 mg 50 mg PO QDAY 12/03/23 12/03/23 tablet,extended release 24 hr Allergies Allergy/AdvReac Type Severity Reaction Status Date / Time No Known Drug Allergies Allergy Verified 12/03/23 11:23 Review of Systems ROS Status of ROS 10 or more systems reviewed and unremarkable except as noted in history and below [facility] Medical History (Updated 12/03/23 @ 12:53 by Kia Donahue MD) Thrombocytopenia ?D69.6 - Thrombocytopenia, unspecified (ICD-10) OAB (overactive bladder) ?N32.81 - Overactive bladder (ICD-10) Anemia ?D64.9 - Anemia, unspecified (ICD-10) HFrEF (heart failure with reduced ejection fraction) ?I50.20 - Unspecified systolic (congestive) heart failure (ICD-10) Atherosclerotic heart disease of [place] coronary artery without angina pectoris ?I25.10 - Atherosclerotic heart disease of [place] coronary artery without angina pectoris (ICD-10) CKD (chronic kidney disease) stage 3, GFR 30-59 ml/min ?N18.30 - Chronic kidney disease, stage 3 unspecified (ICD-10) Paroxysmal A-fib ?I48.0 - Paroxysmal atrial fibrillation (ICD-10) Retinal detachment ?H33.20 - Serous retinal detachment, unspecified eye (ICD-10) HTN (hypertension) ?I10 - Essential (primary) hypertension (ICD-10) Prostate CA ?C61 - Malignant neoplasm of prostate (ICD-10) Pacemaker ?Z95.0 - Presence of cardiac pacemaker (ICD-10) Surgical History (Updated 11/15/23 @ 15:48 by Rosenda Ramirez NP) Hx of inguinal hernia repair ?Z98.890 - Other specified postprocedural states (ICD-10) ?Z87.19 - Personal history of other diseases of the digestive system (ICD-10) History of permanent cardiac pacemaker placement ?Z95.0 - Presence of cardiac pacemaker (ICD-10) History of tricuspid valve repair ?Z98.890 - Other specified postprocedural states (ICD-10) H/O mitral valve repair ?Z98.890 - Other specified postprocedural states (ICD-10) Family History (Updated 11/15/23 @ 15:37 by Keyla Wilson) Mother Family history of CHF (congestive heart failure) Family history of hypertension Sister Family history of cancer Social History (Updated 11/15/23 @ 15:38 by Keyla Wilson) Within the past year, how often did you have a drink containing alcohol: never Score interpretation: A score less than 4 is consistent with normal alcohol consumption. Smoking status: Never smoker Non-prescribed substance use: denies use Previous occupational history: [employer] Highest level of school completed/degree received: high school graduate Are you now , , , , never or living with a partner: never In a typical week, how many times do you talk on the telephone with family, friends, or neighbors: once per week How often do you get together with friends or relatives: once per week How often do you attend muslim or presybeterian services: never Do you belong to any clubs or organizations such as muslim groups unions, fraternal or athletic groups, or school groups: no Total score: 0 Score interpretation: A score of less than or equal to 1 indicates the most socially isolated. Exam Narrative Exam Narrative: Nurses notes and vital signs reviewed and patient is not hypoxic. General: Well-appearing and in no apparent distress. Skin: Warm, dry, no pallor noted. No rash. Head: Normocephalic, atraumatic. Neck: Supple, non-tender. Eye: Pupils are equal, round and EOMI. No scleral icterus. Ears, Nose, Mouth, and Throat: TM are clear, no nasal mucosal hypertrophy. Oral mucosa is moist, no posterior oropharynx erythema, uvula is mid-line Cardiovascular: Regular Rate and Rhythm without murmur, gallop or rub. Respiratory: No accessory muscle use or respiratory distress. Lungs there is crackles heard in both lung andres Chest Wall: no tenderness Back: No midline thoracic or lumbar vertebral tenderness. No CVA tenderness Musculoskeletal: Bilateral 1+ pitting edema until the level of the knee GI: Abdomen is soft, non-distended. Normal bowel sounds. No masses appreciated. No tenderness to palpation. No rebound, guarding, or rigidity noted. Neurological: A&O x4. No cranial nerve dysfunction observed. No truncal ataxia. Moves all extremities. Sensation intact. Psychiatric: Cooperative and interactive. Normal mood and affect. Constitutional Vital Signs, click to edit/add: Last Vital Signs Temp 97.6 F 12/03/23 10:49 Pulse 89 12/03/23 10:49 Resp 24 12/03/23 10:49 BP 106/66 12/03/23 10:49 Pulse Ox 88 L 12/03/23 11:11 O2 Del Method Room Air 12/03/23 11:11 Course Vital Signs Vital signs: Vital Signs Temperature 97.6 F 12/03/23 10:49 Pulse Rate 89 12/03/23 10:49 Respiratory Rate 24 12/03/23 10:49 Blood Pressure 106/66 12/03/23 10:49 Pulse Oximetry 88 L 12/03/23 10:49 Oxygen Delivery Method Room Air 12/03/23 10:49 Temperature 97.6 F 12/03/23 10:49 Pulse Rate 89 12/03/23 10:49 Respiratory Rate 24 12/03/23 10:49 Blood Pressure 106/66 12/03/23 10:49 Pulse Oximetry 88 L 12/03/23 11:11 Oxygen Delivery Method Room Air 12/03/23 11:11 MDM - SOB/Dyspnea MDM Narrative Medical decision making narrative: The patient EKG upon presentation showing paced rhythm with a heart rate of [address] elevation or depression that could be appreciated CBC showed no acute pathology and the digoxin level was within normal The patient elevated BNP up in addition to the congested chest x-ray showing pulmonary edema The patient was started on Lasix 40 mg IV he will be admitted for further diuresis I spoke with Dr. Fiore and he agreed with above-mentioned plan Lab Data Labs: Lab Results 12/03/23 Range/Units 11:20 WBC 4.7 (4.0-11.0) 10^3/uL RBC 3.25 L (4.70-6.10) 10^6/uL Hgb 11.2 L (14.0-18.0) g/dL Hct 34.7 L (42.0-54.0) % MCV 106.8 H (80.0-94.0) fL MCH 34.5 H (25.9-34.0) pg MCHC 32.3 (29.9-35.2) g/dL RDW 14.9 (11.0-15.0) % Plt Count 109 L (150-450) 10^3/uL MPV 11.2 (9.5-13.5) fL Neut % (Auto) 68.9 (43.0-75.0) % Lymph % (Auto) 14.6 L (20.5-60.0) % [place] % (Auto) 14.4 H (1.7-12.0) % Eos % (Auto) 1.3 (0.9-7.0) % Baso % (Auto) 0.6 (0.2-2.0) % Neut # (Auto) 3.3 (1.4-6.5) 10^3/uL Lymph # (Auto) 0.7 L (1.2-3.8) 10^3/uL [place] # (Auto) 0.7 (0.3-0.8) 10^3/uL Eos # (Auto) 0.1 (0.0-0.7) 10^3/uL Baso # (Auto) 0.0 (0.0-0.1) 10^3/uL Abs Immat Gran (auto) 0.01 (0.00-0.03) 10^3/uL Imm/Tot Granulo (auto) 0.2 (0.0-0.5) % Sodium 138 (136-145) mmol/L Potassium 4.1 (3.5-5.1) mmol/L Chloride 99 (98-107) mmol/L Carbon Dioxide 28.7 (21.0-32.0) mmol/L Anion Gap 14.4 BUN 46.0 H (7.0-18.0) mg/dL Creatinine 1.45 H (0.70-1.30) mg/dL Est GFR ( Amer) 56 L (>=60) Est GFR (Non-Af Amer) 46 L (>=60) BUN/Creatinine Ratio 31.7 Glucose 137 H (74-106) mg/dL Calcium 9.6 (8.5-10.1) mg/dL Magnesium 2.4 (1.8-2.4) mg/dL Total Bilirubin 2.0 H (0.2-1.0) mg/dL AST 14 L (15-37) U/L ALT 26 (16-63) U/L Alkaline Phosphatase 111 (46-116) U/L Troponin I High Sens 46.1 (4.0-76.1) pg/mL NT-Pro-B Natriuret Pep 2856.0 H* (<=1800.0) pg/mL Total Protein 7.8 (6.4-8.2) g/dL Albumin 3.3 L (3.4-5.0) g/dL Globulin 4.5 g/dL Albumin/Globulin Ratio 0.7 Digoxin 1.3 (0.9-2.0) ng/mL Discharge Plan Discharge Chief Complaint: Shortness of Breath/Dyspnea Clinical Impression: Hypoxemia Acute exacerbation of CHF (congestive heart failure) Qualifiers: Heart failure type: unspecified Qualified Code(s): I50.9 - Heart failure, unspecified Patient Disposition: Admitted As Inpatient Time of Disposition Decision: 12:53
--- NOTE | 2023-12-03 13:11 | P.HP_ITS ---
H&P: HPI History of Present Illness Chief complaint: SHORTNESS OF BREATH Narrative: Patient mated with increasing shortness of breath. Denies chest pain or chest pressure. Just increasing shortness of breath and swelling in his lower extremities. History of acute combined congestive heart failure. In the ER found to have acute combined congestive heart failure with hypoxia. Patient will be admitted for workup and treatment of same Review of Systems ROS Status of ROS 10 or more systems reviewed and unremark able except as noted in history and below PFSH PFS Medical History (Updated 12/03/23 @ 12:53 by Kia Donahue MD) Thrombocytopenia ?D69.6 - Thrombocytopenia, unspecified (ICD-10) OAB (overactive bladder) ?N32.81 - Overactive bladder (ICD-10) Anemia ?D64.9 - Anemia, unspecified (ICD-10) HFrEF (heart failure with reduced ejection fraction) ?I50.20 - Unspecified systolic (congestive) heart failure (ICD-10) Atherosclerotic heart disease of [place] coronary artery without angina pectoris ?I25.10 - Atherosclerotic heart disease of [place] coronary artery without angina pectoris (ICD-10) CKD (chronic kidney disease) stage 3, GFR 30-59 ml/min ?N18.30 - Chronic kidney disease, stage 3 unspecified (ICD-10) Paroxysmal A-fib ?I48.0 - Paroxysmal atrial fibrillation (ICD-10) Retinal detachment ?H33.20 - Serous retinal detachment, unspecified eye (ICD-10) HTN (hypertension) ?I10 - Essential (primary) hypertension (ICD-10) Prostate CA ?C61 - Malignant neoplasm of prostate (ICD-10) Pacemaker ?Z95.0 - Presence of cardiac pacemaker (ICD-10) Surgical History (Updated 11/15/23 @ 15:48 by Rosenda Ramirez NP) Hx of inguinal hernia repair ?Z98.890 - Other specified postprocedural states (ICD-10) ?Z87.19 - Personal history of other diseases of the digestive system (ICD-10) History of permanent cardiac pacemaker placement ?Z95.0 - Presence of cardiac pacemaker (ICD-10) History of tricuspid valve repair ?Z98.890 - Other specified postprocedural states (ICD-10) H/O mitral valve repair ?Z98.890 - Other specified postprocedural states (ICD-10) Family History (Updated 11/15/23 @ 15:37 by Keyla Wilson) Mother Family history of CHF (congestive heart failure) Family history of hypertension Sister Family history of cancer Social History (Updated 11/15/23 @ 15:38 by Keyla Wilson) Within the past year, how often did you have a drink containing alcohol: never Score interpretation: A score less than 4 is consistent with normal alcohol co nsumption. Smoking status: Never smoker Non-prescribed substance use: denies use Previous occupational history: [employer] Highest level of school completed/degree received: high school graduate Are you now , , , , never or living with a partner: never In a typical week, how many times do you talk on the telephone with family, friends, or neighbors: once per week How often do you get together with friends or relatives: once per week How often do you attend yarsani or quaker services: never Do you belong to any clubs or organizations such as yarsani groups unions, [employer] or athletic groups, or school groups: no Total score: 0 Score interpretation: A score of less than or equal to 1 indicates the most socially isolated. Meds Home Medications and Allergies Home Medications Medication Instructions Recorded Confirmed Type aspirin 81 mg tablet,delayed 81 mg PO DAILY 11/15/23 12/03/23 History release (Janice Low Dose Aspirin) digoxin 125 mcg (0.125 mg) tablet 0.125 mg PO Q24H 11/15/23 12/03/23 History furosemide 40 mg tablet 40 mg PO Q24H 11/15/23 12/03/23 History lisinopril 2.5 mg tablet 2.5 mg PO Q24H 11/15/23 12/03/23 History oxybutynin chloride 5 mg 5 mg PO Q24H 11/15/23 12/03/23 History tablet,extended release 24 hr dapagliflozin propanediol 5 mg 5 mg PO DAILY 12/03/23 12/03/23 History tablet (Farxiga) metoprolol succinate 50 mg 50 mg PO QDAY 12/03/23 12/03/23 History tablet,extended release 24 hr Allergies Allergy/AdvReac Type Severity Reaction Status Date / Time No Known Drug Allergies Allergy Verified 12/03/23 11:23 Exam Constitutional Vital Signs, click to edit/add: Last Vital Signs Temp 97.6 F 12/03/23 10:49 Pulse 75 12/03/23 12:50 Resp 21 12/03/23 12:50 BP 113/69 12/03/23 12:35 Pulse Ox 96 12/03/23 12:50 O2 Del Method Room Air 12/03/23 11:11 Common normals: no apparent distress, oriented x3, alert and well nourished General appearance: cooperative Orientation/consciousness: Yes awake HENMI Common normals: normocephalic, head/scalp atraumatic, hearing grossly normal bilaterally, external nose normal and moist oral mucous membranes Chest Common normals: inspection of chest normal Respiratory Common normals: normal respiratory effort Auscultation: rales (BLL) Cardio Common normals: no JVD, regular rate and regular rhythm GI Common normals: Normal to inspection, nondistended, normoactive bowel sounds present, soft to palpation, non-tender, no hepatosplenomegaly, no masses and no bruits Bladder/kidney exam: bladder normal to palpation Back & Pelvis Common normals: thoracic and lumbar spine normal to inspection Extremity Common normals: normal capillary refill General: edema (2+ pitting); no clubbing and no cyanosis Neuro Génesis Coma Scale: GCS not evaluated Common normals: CN's II-XII intact bilaterally, moves all extremities, no focal motor deficits and no sensory deficits noted Speech: speech normal Motor exam: strength 5/5 throughout Psych Common normals: mental status grossly normal, thought process normal, affect normal and activity/motor behavior normal Results Labs Labs: Short CBC 12/03/23 Range/Units 11:20 WBC 4.7 (4.0-11.0) 10^3/uL Hgb 11.2 L (14.0-18.0) g/dL Hct 34.7 L (42.0-54.0) % Plt Count 109 L (150-450) 10^3/uL BMP 12/03/23 11:20 Sodium 138 Potassium 4.1 Chloride 99 Carbon Dioxide 28.7 BUN 46.0 H Creatinine 1.45 H Glucose 137 H Calcium 9.6 Liver Function 12/03/23 Range/Units 11:20 Total Bilirubin 2.0 H (0.2-1.0) mg/dL AST 14 L (15-37) U/L ALT 26 (16-63) U/L Alkaline Phosphatase 111 (46-116) U/L Albumin 3.3 L (3.4-5.0) g/dL Assessment and Plan Assessment and Plan (1) Hypoxemia: (2) Acute exacerbation of CHF (congestive heart failure): Qualifiers: Heart failure type: unspecified Qualified Code(s): I50.9 - Heart failure, unspecified Plan Acute hypoxia, respiratory distress, elevated BNP, chest x-ray finding consistent with pulmonary edema, peripheral edema noted on exam-secondary to acute combined congestive heart failure-check cardiac markers, consider repeating echocardiogram, Bumex drip. Likely to respond well to this. Likely discharge to home in a.m. 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 with good diuresis today with Bumex drip, place patient observation status
[2023-12-03 13:42] LABS: Troponin I High Sensitivity 45.3 pg/mL (4.0-76.1)
--- OUTSIDE RECORDS SUMMARY | 2023-12-03 13:57 | XMS_ITS | CCD ---
Author Name Unknown Address [address] [place] [address] Organization [facility] Care Team Providers Care Demand Generation Manager Name Role Phone TIMO BAR Primary Care Physician [phone] MARYBETH COOPER Attending Unavailable KENNETH, MARYBETH Trivedi [...] DR MARRUFO Primary Care Unavailable MARIAN, DR ZAHC Scott Admitting Unavailable MARIAN, DR ZACH Scott [...] Daily, # 90 tab(s), Refills(s) 3, Pharmacy: Mobile Location, IP #72, 183, cm, 09/21/22 12:19:00 EDT, Height/Length [...] 08-10-2022 Episodic Other aftercare (6 sources) Other assisted (current) drug therapy; Translations: [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] Onset: 07-08-2022 Episodic Other aftercare (1 source) director long term care (current) use of aspirin; Translations: [CARE HOME CURRENT USE OF ASPIRIN] Onset: 08-16-2022 Episodic [...] Range Facility Office Visiton 04-17-2023 Follow-up visit [id number] Samson Joe 1935 M Date Provider Department Center 04/17/2023 Stephane-JUAN LUIS KYLE [facility] No family history on file Level of Service:07218 [facility] OFFICE/OUTPATIENT NEW MODERATE MDM 45-59 MINUTES Reason for Visit and Comments: Establish Care [42] [facility] Ambulatory [facility] Summaryon 1 Ambulatory Visit Summary SAMSON JOE :1935 Visit Date:09/21/2022 Ambulatory Visit Instructions Your Diagnosis Urge incontinence History of prostate cancer Tests Performed Urnls Dip Stick Auto w/o Microscopy POC 93979 Your Care Team Attending Physician - MARYBETH [...] if needed Where: [address] [place] [address] [phone] Medications What How Much When Instructions Unchanged oxybutynin (oxybutynin 5 mg ER Tab) 1 Tablets By Mouth Every day Pickup at Mobile Location, IP #72 Unchanged ascorbic acid (Vitamin C) Every [...] physician if questions or concerns Pharmacy Information Mobile Location, IP #72: [address] [place], [place] [phone] Test Results Urnls Dip Stick Auto w/o Microscopy POC 26249 (09/21/2022) Bilirubin Urine Dipstick - Negative Blood Urine Dipstick - Negative Glucose Urine Dipstick - Negative Ketones Urine Dipstick - Negative Leukocytes Urine Dipstick - Negative Nitrite Urine Dipstick - Negative Protein Urine Dipstick - Negative Specific [place] Urine Dipstick - 1.015 Urine Appearance Urine [...] hematuria History of prostate cancer Hyperlipidemia Hypertension 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 ? Are -Bahamian. ? Are obese. ? Have a family [...] during urination (more content not included)... Normal [facility] Ambulatory Visit Summary SAMSON JOE :1935 Visit Date:09/21/2022 Ambulatory Visit Instructions Your Diagnosis Urge incontinence History of prostate cancer Tests Performed Urnls Dip Stick Auto w/o Microscopy POC 80837 Your Care Team Attending Physician - MARYBETH [...] When: Only if needed Where: [address] [place] [address] [phone] Medications What How Much When Instructions Unchanged [...] Urnls Dip Stick Auto w/o Microscopy POC 61457 (09/21/2022) Bilirubin Urine Dipstick - Negative Blood Urine Dipstick - Negative Glucose Urine Dipstick - Negative Ketones Urine Dipstick - Negative Leukocytes Urine Dipstick - Negative Nitrite Urine Dipstick - Negative Protein Urine Dipstick - Negative Specific [place] Urine Dipstick - 1.015 Urine Appearance Urine [...] hematuria History of prostate cancer Hyperlipidemia Hypertension 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 ? Are -Bahamian. ? Are obese. ? Have a family [...] upper thi (more content not included)... Normal [facility] Patient Educationon 09-21-20 Patient Education Oncology Prostate [...] Are older than age 65. ? Are -Bahamian. ? Are obese. ? Have a family [...] Follow these instructions at home: ? Take daam-[id number]-[id number] and prescription medicines only as told by [...] cancer specialis (more content not included)... Normal [facility] Urology Office/Clinic Noteon 09-21-2022 Urology Office/Clinic Note [...] this time. History of Present Illness staff [facility] reviewed and agree. Review of Systems [...] SHEPARD, MARYBETH Trivedi, URL Only if needed [address] 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 Immunizations Vaccine Date Status Comments SARSCoV2 mRNA(gopfbypue-fxad-u marcy) vac 04/26/2022 Recorded SARS-CoV-2 (COVID-19) mRNA [...] 09/05/2016 Rec (more content not included)... Normal [facility] Comment on above: Result Comment: Elec tronically Signed By: KENNETH SHEPARD, MARYBETH Trivedi\.lisa\Date and Time Signed: 09/21/22 13:18 EDT CBC AUTO DIFFon 09-06-2022 BASO # 0.0 103/ul Normal 0.0-0.1 [facility] Comment on above: Performed By: #### C BC #### [facility] [address] [address] [address] Kirk García Basophils/100 WBC (Bld) 0.5 % Normal 0.2-2.0 [facility] Comment on above: Performed By: #### C BC #### [facility] [address] [place] [address] Dr. Kirk García EO # 0.1 103/ul Normal 0.0-0.7 [facility] Comment on above: Performed By: #### C BC #### [facility] [address] [place] [address] Dr. Kirk García Eosinophils/100 WBC (Bld) 1.2 % Normal 0.9-7.0 [facility] Comment on above: Performed By: #### C BC #### [facility] [address] [place] [address] Dr. Kirk García Erythrocyte distribution width (RBC) [Ratio] 14.2 % Normal 11.0-15.0 [facility] Comment on above: Performed By: #### C BC #### [facility] [address] [place] [address] Dr. Kirk García Hematocrit (Bld) [Volume fraction] 35.6 % Critically low 42.0-54.0 [facility] Comment on above: Performed By: #### C BC #### [facility] [address] [place] [address] Dr. Kirk García Hemoglobin (Bld) [Mass/Vol] 11.7 g/dL Critically low 14.0-18.0 [facility] Comment on above: Performed By: #### C BC #### [facility] [address] [place] [address] Dr. Kirk García IG # 0.04 10e3/ul Critically high 0.00-0.03 [facility] Comment on above: Performed By: #### C BC #### [facility] [address] [place] [address] Dr. Kirk García IG % 0.6 % Critically high 0.0-0.5 [facility] Comment on above: Performed By: #### C BC #### [facility] [address] [address] [address] Kirk García LYMPH # 1.7 103/ul Normal 1.2-3.8 [facility] Comment on above: Performed By: #### C BC #### [facility] [address] [place] [address] Dr. Kirk García Lymphocytes/100 WBC (Bld) 25.7 % Normal 20.5-60.0 [facility] Comment on above: Performed By: #### C BC #### [facility] [address] [place] [address] Dr. Kirk García MANUAL DIFF REQ NO Normal [facility] Comment on above: Performed By: #### C BC #### [facility] [address] [place] [address] Dr. Kirk García MCH (RBC) [Entitic mass] 34.1 pg Critically high 25.9-34.0 [facility] Comment on above: Performed By: #### C BC #### [facility] [address] [place] [address] Dr. Kirk García MCHC (RBC) [Mass/Vol] 32.9 g/dL Normal 29.9-35.2 [facility] Comment on above: Performed By: #### C BC #### [facility] [address] [place] [address] Dr. Kirk García MCV (RBC) [Entitic vol] 103.8 fL Critically high 80.0-94.0 [facility] Comment on above: Performed By: #### C BC #### [facility] [address] [place] [address] Dr. Kirk García MONO # 1.1 103/ul Critically high 0.3-0.8 [facility] Comment on above: Performed By: #### C BC #### [facility] [address] [place] [address] Dr. Kirk García Monocytes/100 WBC (Bld) 17.7 % Critically high 1.7-12.0 [facility] Comment on above: Performed By: #### C BC #### [facility] [address] [place] [address] Dr. Kirk García NEUT # 3.5 103/ul Normal 1.4-6.5 [facility] Comment on above: Performed By: #### C BC #### [facility] [address] [place] [address] Dr. Kirk García Neutrophils/100 WBC (Bld) 54.3 % Normal 43.0-75.0 [facility] Comment on above: Performed By: #### C BC #### [facility] [address] [place] [address] Dr. Kirk García Platelet mean volume (Bld) [Entitic vol] 10.1 fL Normal 9.5-13.5 [facility] Comment on above: Performed By: #### C BC #### [facility] [address] [place] [address] Dr. Kirk García PLT 153 103/ul Normal 150-450 [facility] Comment on above: Performed By: #### C BC #### [facility] [address] [place] [address] Dr. Kirk García RBC 3.43 106/ul Critically low 4.70-6.10 [facility] Comment on above: Performed By: #### C BC #### [facility] [address] [place] [address] Dr. Kirk García WBC 6.5 103/ul Normal 4.0-11.0 [facility] Comment on above: Performed By: #### C BC #### [facility] [address] [place] [address] Dr. Kirk García PROF CHEM 8 (BAS METB)on Anion gap [Moles/Vol] 10.8 mmol/L Normal [facility] Comment on above: Performed By: #### B MP #### [facility] [address] [place] [address] Dr. Kirk García Calcium [Mass/Vol] 9.2 mg/dL Normal 8.5-10.1 [facility] Comment on above: Performed By: #### B MP #### [facility] [address] [place] [address] Dr. Kirk García Chloride [Moles/Vol] 101 mmol/L Normal 98-107 [facility] Comment on above: Performed By: #### B MP #### [facility] [address] [address] [address] Kirk García CO2 [Moles/Vol] 30.9 mmol/L Normal 21.0-32.0 [facility] Comment on above: Performed By: #### B MP #### [facility] [address] [address] [address] Kirk García Creatinine [Mass/Vol] 1.54 mg/dL Critically high 0.70-1.30 [facility] Comment on above: Performed By: #### B MP #### [facility] [address] [address] [address] Kirk García EGFR-AF TONGAN 52 mL/min/1.73m2 Critically low >=60 [facility] Comment on above: Performed By: #### B MP #### [facility] [address] [address] [address] Kirk García EGFR-NON AF TONGAN 43 mL/min/1.73m2 Critically low >=60 [facility] Comment on above: Performed By: #### B MP #### [facility] [address] [address] [address] Kirk García Glucose [Mass/Vol] 106 mg/dL Normal 74-106 [facility] Comment on above: Performed By: #### B MP #### [facility] [address] [address] [address] Kirk García Potassium [Moles/Vol] 4.7 mmol/L Normal 3.5-5.1 [facility] Comment on above: Performed By: #### B MP #### [facility] [address] [address] [address] Kirk García Sodium [Moles/Vol] 138 mmol/L Normal 136-145 [facility] Comment on above: Performed By: #### B MP #### [facility] [address] [address] [address] Kirk García Urea nitrogen [Mass/Vol] 28.0 mg/dL Critically high 7.0-18.0 [facility] Comment on above: Performed By: #### B MP #### [facility] [address] [place] [address] Dr. Kirk García Urea nitrogen/Creatinin e [Mass ratio] 18.2 mg/mg Normal [facility] Comment on above: Performed By: #### B MP #### [facility] [address] [place] [address] Dr. Kirk García CBC W MANUAL DIFFon 08-15-20 22 ATYPICAL LYMPH # 1.62 103/ul Normal [facility] Comment on above: Performed By: #### U MICRO, ERUR #### [facility] [address] [place] [address] Dr. Kirk García ATYPICAL LYMPH % 12 % Normal [facility] Comment on above: Performed By: #### U MICRO, ERUR #### [facility] [address] [place] [address] Dr. Kirk García BAND # 0.1 103/ul Normal 0.0-0.3 [facility] Comment on above: Performed By: #### U MICRO, ERUR #### [facility] [address] [place] [address] Dr. Kirk García BAND % 1 % Normal 0-5 [facility] Comment on above: Performed By: #### U MICRO, ERUR #### [facility] [address] [place] [address] Dr. Kirk García BASOM # 0.14 103/ul Critically high 0.00-0.10 [facility] Comment on above: Performed By: #### U MICRO, ERUR #### [facility] [address] [place] [address] Dr. Kirk García BASOM % 1.0 % Normal 0.2-2.0 [facility] Comment on above: Performed By: #### U MICRO, ERUR #### [facility] [address] [place] [address] Dr. Kirk García BLAST # Normal [facility] Comment on above: Performed By: #### U MICRO, ERUR #### [facility] [address] [address] [address] Kirk García BLAST % Normal [facility] Comment on above: Performed By: #### U MICRO, ERUR #### [facility] [address] [address] [address] Kirk García CORRECTED WBC Normal 4.0-11.0 [facility] Comment on above: Performed By: #### U MICRO, ERUR #### [facility] [address] [address] [address] Kirk García EOS # 0.14 103/ul Normal 0.00-0.70 [facility] Comment on above: Performed By: #### U MICRO, ERUR #### [facility] [address] [place] [address] Dr. Kirk García EOS% 1.0 % Normal 0.9-7.0 [facility] Comment on above: Performed By: #### U MICRO, ERUR #### [facility] [address] [address] [address] Kirk García HCT 40.7 % Critically low 42.0-54.0 [facility] Comment on above: Performed By: #### U MICRO, ERUR #### [facility] [address] [address] [address] Kirk García HGB 13.4 g/dl Critically low 14.0-18.0 [facility] Comment on above: Performed By: #### U MICRO, ERUR #### [facility] [address] [address] [address] Kirk García LYMPHM # 0.54 103/ul Critically low 1.20-3.80 [facility] Comment on above: Performed By: #### U MICRO, ERUR #### [facility] [address] [address] [address] Kirk García LYMPHM% 4.0 % Critically low 20.5-60.0 [facility] Comment on above: Performed By: #### U MICRO, ERUR #### [facility] [address] [address] [address] Kirk García MCH 34.2 pg Critically high 25.9-34.0 [facility] Comment on above: Performed By: #### U MICRO, ERUR #### [facility] [address] [address] [address] Kirk García MCHC 32.9 g/dl Normal 29.9-35.2 [facility] Comment on above: Performed By: #### U MICRO, ERUR #### [facility] [address] [address] [address] Kirk García MCV 103.8 fL Critically high 80.0-94.0 [facility] Comment on above: Performed By: #### U MICRO, ERUR #### [facility] [address] [address] [address] Kirk García METAMYELOCYTE # Normal [facility] Comment on above: Performed By: #### U MICRO, ERUR #### [facility] [address] [address] [address] Kirk García METAMYELOCYTE % Normal [facility] Comment on above: Performed By: #### U MICRO, ERUR #### [facility] [address] [address] [address] Kirk García MONOM# 1.08 103/ul Critically high 0.30-0.80 [facility] Comment on above: Performed By: #### U MICRO, ERUR #### [facility] [address] [address] [address] Kirk García MONOM% 8.0 % Normal 1.7-12.0 [facility] Comment on above: Performed By: #### U MICRO, ERUR #### [facility] [address] [address] [address] Kirk García MPV 10.7 fL Normal 9.5-13.5 [facility] Comment on above: Performed By: #### U MICRO, ERUR #### [facility] [address] [address] [address] Kirk García MYELOCYTE # Normal [facility] Comment on above: Performed By: #### U MICRO, ERUR #### [facility] [address] [address] [address] Kirk García MYELOCYTE % Normal [facility] Comment on above: Performed By: #### U MICRO, ERUR #### [facility] [address] [address] [address] Kirk García NRBC Normal [facility] Comment on above: Performed By: #### U MICRO, ERUR #### [facility] [address] [address] [address] Kirk García PLT 140 103/ul Critically low 150-450 [facility] Comment on above: Performed By: #### U MICRO, ERUR #### [facility] [address] [address] [address] Kirk García RBC 3.92 106/ul Critically low 4.70-6.10 [facility] Comment on above: Performed By: #### U MICRO, ERUR #### [facility] [address] [address] [address] Kirk García RDW 14.0 % Normal 11.0-15.0 [facility] Comment on above: Performed By: #### U MICRO, ERUR #### [facility] [address] [address] [address] Kirk García SEG # 9.86 103/ul Critically high 1.40-6.50 [facility] Comment on above: Performed By: #### U MICRO, ERUR #### [facility] [address] [address] [address] Kirk García SEG % 73.0 % Normal 43.0-75.0 [facility] Comment on above: Performed By: #### U MICRO, ERUR #### [facility] [address] [address] [address] Kirk García TOXIC GRANULATION 2+ Normal [facility] Comment on above: Performed By: #### U MICRO, ERUR #### [facility] [address] [address] [address] Kirk García WBC 13.5 103/ul Critically high 4.0-11.0 [facility] Comment on above: Performed By: #### U MICRO, ERUR #### [facility] [address] [address] [address] Kirk García PROF 14(COMP METB)on 022 Albumin [Mass/Vol] 3.0 g/dL Critically low 3.4-5.0 [facility] Comment on above: Performed By: #### C MP #### [facility] [address] [address] [address] Kirk García Albumin/Globulin [Mass ratio] 0.8 {ratio} Normal [facility] Comment on above: Performed By: #### C MP #### [facility] [address] [place] [address] Dr. Kirk García ALP [Catalytic activity/Vol] 81 U/L Normal 46-116 [facility] Comment on above: Performed By: #### C MP #### [facility] [address] [place] [address] Dr. Kirk García ALT [Catalytic activity/Vol] 50 U/L Normal 16-63 [facility] Comment on above: Performed By: #### C MP #### [facility] [address] [place] [address] Dr. Kirk García Anion gap [Moles/Vol] 8.2 mmol/L Normal [facility] Comment on above: Performed By: #### C MP #### [facility] [address] [place] [address] Dr. Kirk García AST [Catalytic activity/Vol] 14 U/L Critically low 15-37 [facility] Comment on above: Performed By: #### C MP #### [facility] [address] [address] [address] Kirk García Bilirubin [Mass/Vol] 0.9 mg/dL Normal 0.2-1.0 [facility] Comment on above: Performed By: #### C MP #### [facility] [address] [place] [address] Dr. Kirk García Calcium [Mass/Vol] 9.3 mg/dL Normal 8.5-10.1 [facility] Comment on above: Performed By: #### C MP #### [facility] [address] [address] [address] Kirk García Chloride [Moles/Vol] 100 mmol/L Normal 98-107 [facility] Comment on above: Performed By: #### C MP #### [facility] [address] [address] [address] Kirk García CO2 [Moles/Vol] 33.1 mmol/L Critically high 21.0-32.0 [facility] Comment on above: Performed By: #### C MP #### [facility] [address] [address] [address] Kirk García Creatinine [Mass/Vol] 1.56 mg/dL Critically high 0.70-1.30 [facility] Comment on above: Performed By: #### C MP #### [facility] [address] [address] [address] Kirk García EGFR-AF TONGAN 51 mL/min/1.73m2 Critically low >=60 [facility] Comment on above: Performed By: #### C MP #### [facility] [address] [address] [address] Kirk García EGFR-NON AF TONGAN 42 mL/min/1.73m2 Critically low >=60 [facility] Comment on above: Performed By: #### C MP #### [facility] [address] [address] [address] Kirk García Globulin (S) [Mass/Vol] 3.7 g/dL Normal [facility] Comment on above: Performed By: #### C MP #### [facility] [address] [address] [address] Kirk García Glucose [Mass/Vol] 107 mg/dL Critically high 74-106 [facility] Comment on above: Performed By: #### C MP #### [facility] [address] [address] [address] Kirk García Potassium [Moles/Vol] 5.3 mmol/L Critically high 3.5-5.1 [facility] Comment on above: Performed By: #### C MP #### [facility] [address] [address] [address] Kirk García Protein [Mass/Vol] 6.7 g/dL Normal 6.4-8.2 [facility] Comment on above: Performed By: #### C MP #### [facility] [address] [address] [address] Kirk García Sodium [Moles/Vol] 136 mmol/L Normal 136-145 [facility] Comment on above: Performed By: #### C MP #### [facility] [address] [address] [address] Kirk García Urea nitrogen [Mass/Vol] 50.0 mg/dL Critically high 7.0-18.0 [facility] Comment on above: Performed By: #### C MP #### [facility] [address] [address] [address] Kirk García Urea nitrogen/Creatinin e [Mass ratio] 32.1 mg/mg Normal [facility] Comment on above: Performed By: #### C MP #### [facility] [address] [address] [address] Kirk García CULTURE URINEon 08-14-2022 CULTURE URINE Culture Observations : NO GROWTH. Normal [facility] Comment on above: Performed By: #### U MICRO, ERUR #### [facility] [address] [address] [address] Kirk García ER URINE PROFILEon Bilirubin Ql (U) Negative Normal NEGATIVE [facility] Comment on above: Performed By: #### U MICRO, ERUR #### [facility] [address] [address] [address] Kirk García Clarity (U) CLEAR Normal CLEAR [facility] Comment on above: Performed By: #### U MICRO, ERUR #### [facility] [address] [address] [address] Kirk García Color (U) ORANGE Abnormal YELLOW [facility] Comment on above: Performed By: #### U MICRO, ERUR #### [facility] [address] [address] [address] Kirk GRUBBS A micrscopic examination will be performed if indicated. Normal [facility] Comment on above: Performed By: #### U MICRO, ERUR #### [facility] [address] [address] [address] Kirk García Glucose Ql (U) Negative Normal NEGATIVE [facility] Comment on above: Performed By: #### U MICRO, ERUR #### [facility] [address] [address] [address] Kirk García Hemoglobin Ql (U) LARGE Abnormal NEGATIVE [facility] Comment on above: Performed By: #### U MICRO, ERUR #### [facility] [address] [address] [address] Kirk García Ketones Ql (U) TRACE Abnormal NEGATIVE [facility] Comment on above: Performed By: #### U MICRO, ERUR #### [facility] [address] [address] [address] Kirk García LEUKOCYTES MODERATE Abnormal NEGATIVE [facility] Comment on above: Performed By: #### U MICRO, ERUR #### [facility] [address] [address] [address] Kirk García Nitrite Ql (U) Negative Normal NEGATIVE [facility] Comment on above: Performed By: #### U MICRO, ERUR #### [facility] [address] [address] [address] Kirk García pH (U) 5.5 [pH] Normal 5-9 [facility] Comment on above: Performed By: #### U MICRO, ERUR #### [facility] [address] [address] [address] Kirk García Protein (U) [Mass/Vol] 100 mg/dL Abnormal NEGATIVE/ TRACE [facility] Comment on above: Performed By: #### U MICRO, ERUR #### [facility] [address] [place] [address] Dr. Kirk García SPEC GRAVITY 1.025 Normal 1.005-<=1.025 [facility] Comment on above: Performed By: #### U MICRO, ERUR #### [facility] [address] [place] [address] Dr. Kirk García UR MICRO IND INDICATED Normal [facility] Comment on above: Performed By: #### U MICRO, ERUR #### [facility] [address] [place] [address] Dr. Kirk García Urobilinogen Qn (U) 1.0 {Ryan'U}/dL Normal 0.2 - 1.0 [facility] Comment on above: Performed By: #### U MICRO, ERUR #### [facility] [address] [place] [address] Dr. Kirk García URINE MICROSCOPIC ONLYon BACTERIA SMALL Abnormal NONE SEEN [facility] Comment on above: Performed By: #### U MICRO, ERUR #### [facility] [address] [place] [address] Dr. Kirk García Bacteria identified Cx Nom (U) INDICATED Normal [facility] Comment on above: Performed By: #### U MICRO, ERUR #### [facility] [address] [place] [address] Dr. Kirk García CAST NONE SEEN Normal NONE SEEN [facility] Comment on above: Performed By: #### U MICRO, ERUR #### [facility] [address] [place] [address] Dr. Kirk García Crystals LM Nom (Urine sed) NONE SEEN Normal NONE SEEN [facility] Comment on above: Performed By: #### U MICRO, ERUR #### [facility] [address] [place] [address] Dr. Kirk García Epithelial cells LM Ql (Urine sed) RARE Normal NONE SEEN /RARE [facility] Comment on above: Performed By: #### U MICRO, ERUR #### [facility] [address] [place] [address] Dr. Kirk García MUCOUS NONE SEEN Normal NONE SEEN [facility] Comment on above: Performed By: #### U MICRO, ERUR #### [facility] [address] [place] [address] Dr. Kirk García RBC 75-100 Abnormal 0-2 [facility] Comment on above: Performed By: #### U MICRO, ERUR #### [facility] [address] [address] [address] Kirk García WBC 50-75 Abnormal NONE SEEN [facility] Comment on above: Performed By: #### U MICRO, ERUR #### [facility] [address] [address] [address] Kirk García XR KNEE WILBER 4V [...] ANA DALAL Date: 2022-08-14 21:09 Normal [facility] CBC W MANUAL DIFFon 08-04-20 22 ATYPICAL LYMPH # Normal [facility] Comment on above: Performed By: #### C CHRISTOPHER #### [facility] [address] [place] [address] Dr. Kirk García ATYPICAL LYMPH % Normal [facility] Comment on above: Performed By: #### C CHRISTOPHER #### [facility] [address] [address] [address] Kirk García BAND # 0.0 103/ul Normal 0.0-0.3 [facility] Comment on above: Performed By: #### C CHRISTOPHER #### [facility] [address] [address] [address] Kirk García BAND % 1 % Normal 0-5 [facility] Comment on above: Performed By: #### C CHRISTOPHER #### [facility] [address] [place] [address] Dr. Kirk García BASOM # 0.00 103/ul Normal 0.00-0.10 [facility] Comment on above: Performed By: #### C CHRISTOPHER #### [facility] [address] [address] [address] Kirk García BASOM % 0.0 % Critically low 0.2-2.0 [facility] Comment on above: Performed By: #### C BCMAN #### [facility] [address] [address] [address] Kirk García BLAST # Normal [facility] Comment on above: Performed By: #### C BCMAN #### [facility] [address] [address] [address] Kirk García BLAST % Normal [facility] Comment on above: Performed By: #### C BCLEILA #### [facility] [address] [place] [address] Dr. Kirk García CORRECTED WBC Normal 4.0-11.0 [facility] Comment on above: Performed By: #### C BCLEILA #### [facility] [address] [place] [address] Dr. Kirk García EOS # 0.00 103/ul Normal 0.00-0.70 [facility] Comment on above: Performed By: #### C BCLEILA #### [facility] [address] [place] [address] Dr. Kirk García EOS% 0.0 % Critically low 0.9-7.0 [facility] Comment on above: Performed By: #### C BCLEILA #### [facility] [address] [address] [address] Kirk García HCT 31.0 % Critically low 42.0-54.0 [facility] Comment on above: Performed By: #### C BCMAN #### [facility] [address] [place] [address] Dr. Kirk García HGB 10.5 g/dl Critically low 14.0-18.0 [facility] Comment on above: Performed By: #### C BCMAN #### [facility] [address] [place] [address] Dr. Kirk García LYMPHM # 0.31 103/ul Critically low 1.20-3.80 [facility] Comment on above: Performed By: #### C CHRISTOPHER #### [facility] [address] [address] [address] Kirk García LYMPHM% 11.0 % Critically low 20.5-60.0 [facility] Comment on above: Performed By: #### C CHRISTOPHER #### [facility] [address] [address] [address] Kirk García MCH 34.2 pg Critically high 25.9-34.0 [facility] Comment on above: Performed By: #### C CHRISTOPHER #### [facility] [address] [address] [address] Kikr García MCHC 33.9 g/dl Normal 29.9-35.2 [facility] Comment on above: Performed By: #### C CHRISTOPHER #### [facility] [address] [place] [address] Dr. Kirk García MCV 101.0 fL Critically high 80.0-94.0 [facility] Comment on above: Performed By: #### C CHRISTOPHER #### [facility] [address] [address] [address] Kirk García METAMYELOCYTE # 0.1 103/ul Normal [facility] Comment on above: Performed By: #### C CHRISTOPHER #### [facility] [address] [place] [address] Dr. Kirk García METAMYELOCYTE % 2 % Normal [facility] Comment on above: Performed By: #### C CHRISTOPHER #### [facility] [address] [address] [address] Kirk García MONOM# 0.03 103/ul Critically low 0.30-0.80 [facility] Comment on above: Performed By: #### C CHRISTOPHER #### [facility] [address] [address] [address] Kirk García MONOM% 1.0 % Critically low 1.7-12.0 [facility] Comment on above: Performed By: #### C CHRISTOPHER #### [facility] [address] [address] [address] Kirk García MPV 10.7 fL Normal 9.5-13.5 [facility] Comment on above: Performed By: #### C CHRISTOPHER #### [facility] [address] [address] [address] Kirk García MYELOCYTE # 0.0 103/ul Normal [facility] Comment on above: Performed By: #### C CHRISTOPHER #### [facility] [address] [address] [address] Kirk García MYELOCYTE % 1 % Normal [facility] Comment on above: Performed By: #### C CHRISTOPHER #### [facility] [address] [address] [address] Kirk García NRBC Normal [facility] Comment on above: Performed By: #### C CHRISTOPHER #### [facility] [address] [place] [address] Dr. Kirk García PLT 84 103/ul Critically low 150-450 [facility] Comment on above: Performed By: #### C CHRISTOPHER #### [facility] [address] [place] [address] Dr. Kirk García RBC 3.07 106/ul Critically low 4.70-6.10 [facility] Comment on above: Performed By: #### C CHRISTOPHER #### [facility] [address] [place] [address] Dr. Kirk García RDW 13.3 % Normal 11.0-15.0 [facility] Comment on above: Performed By: #### C CHRISTOPHER #### [facility] [address] [place] [address] Dr. Kirk García SEG # 2.35 103/ul Normal 1.40-6.50 [facility] Comment on above: Performed By: #### C CHRISTOPHER #### [facility] [address] [place] [address] Dr. Kirk García SEG % 84.0 % Critically high 43.0-75.0 [facility] Comment on above: Performed By: #### C CHRISTOPHER #### [facility] [address] [address] [address] Kirk García WBC 2.8 103/ul Critically low 4.0-11.0 [facility] Comment on above: Performed By: #### C BCMAN #### [facility] [address] [address] [address] Kirk García PROF CHEM 8 (BAS METB)on Anion gap [Moles/Vol] 9.9 mmol/L Normal [facility] Comment on above: Performed By: #### U MICRO, ERUR #### [facility] [address] [address] [address] Kirk García Calcium [Mass/Vol] 7.4 mg/dL Critically low 8.5-10.1 [facility] Comment on above: Performed By: #### U MICRO, ERUR #### [facility] [address] [place] [address] Dr. Kirk García Chloride [Moles/Vol] 100 mmol/L Normal 98-107 [facility] Comment on above: Performed By: #### U MICRO, ERUR #### [facility] [address] [address] [address] Kirk García CO2 [Moles/Vol] 23.8 mmol/L Normal 21.0-32.0 [facility] Comment on above: Performed By: #### U MICRO, ERUR #### [facility] [address] [address] [address] Kirk García Creatinine [Mass/Vol] 1.43 mg/dL Critically high 0.70-1.30 [facility] Comment on above: Performed By: #### U MICRO, ERUR #### [facility] [address] [address] [address] Kirk García EGFR-AF TONGAN 57 mL/min/1.73m2 Critically low >=60 [facility] Comment on above: Performed By: #### U MICRO, ERUR #### [facility] [address] [address] [address] Kirk García EGFR-NON AF TONGAN 47 mL/min/1.73m2 Critically low >=60 [facility] Comment on above: Performed By: #### U MICRO, ERUR #### [facility] [address] [address] [address] Kirk García Glucose [Mass/Vol] 148 mg/dL Critically high 74-106 [facility] Comment on above: Performed By: #### U MICRO, ERUR #### [facility] [address] [place] [address] Dr. Kirk García Potassium [Moles/Vol] 4.7 mmol/L Normal 3.5-5.1 [facility] Comment on above: Performed By: #### U MICRO, ERUR #### [facility] [address] [place] [address] Dr. Kirk García Sodium [Moles/Vol] 129 mmol/L Critically low 136-145 [facility] Comment on above: Performed By: #### U MICRO, ERUR #### [facility] [address] [place] [address] Dr. Kirk García Urea nitrogen [Mass/Vol] 42.0 mg/dL Critically high 7.0-18.0 [facility] Comment on above: Performed By: #### U MICRO, ERUR #### [facility] [address] [place] [address] Dr. Kirk García Urea nitrogen/Creatinin e [Mass ratio] 29.4 mg/mg Normal [facility] Comment on above: Performed By: #### U MICRO, ERUR #### [facility] [address] [place] [address] Dr. Kirk García CBC AUTO DIFFon 08-03-2022 BASO # 0.0 103/ul Normal 0.0-0.1 [facility] Comment on above: Performed By: #### C BC #### [facility] [address] [place] [address] Dr. Kirk García Basophils/100 WBC (Bld) 0.0 % Critically low 0.2-2.0 [facility] Comment on above: Performed By: #### C BC #### [facility] [address] [place] [address] Dr. Kirk García EO # 0.0 103/ul Normal 0.0-0.7 [facility] Comment on above: Performed By: #### C BC #### [facility] [address] [place] [address] Dr. Kirk García Eosinophils/100 WBC (Bld) 0.2 % Critically low 0.9-7.0 [facility] Comment on above: Performed By: #### C BC #### [facility] [address] [place] [address] Dr. Kirk García Erythrocyte distribution width (RBC) [Ratio] 13.7 % Normal 11.0-15.0 [facility] Comment on above: Performed By: #### C BC #### [facility] [address] [place] [address] Dr. Kirk García Hematocrit (Bld) [Volume fraction] 34.3 % Critically low 42.0-54.0 [facility] Comment on above: Performed By: #### C BC #### [facility] [address] [place] [address] Dr. Kirk García Hemoglobin (Bld) [Mass/Vol] 11.8 g/dL Critically low 14.0-18.0 [facility] Comment on above: Performed By: #### C BC #### [facility] [address] [place] [address] Dr. Kirk García IG # 0.02 10e3/ul Normal 0.00-0.03 [facility] Comment on above: Performed By: #### C BC #### [facility] [address] [place] [address] Dr. Kirk García IG % 0.4 % Normal 0.0-0.5 [facility] Comment on above: Performed By: #### C BC #### [facility] [address] [place] [address] Dr. Kirk García LYMPH # 0.9 103/ul Critically low 1.2-3.8 [facility] Comment on above: Performed By: #### C BC #### [facility] [address] [place] [address] Dr. Kirk García Lymphocytes/100 WBC (Bld) 16.5 % Critically low 20.5-60.0 [facility] Comment on above: Performed By: #### C BC #### [facility] [address] [place] [address] Dr. Kirk García MANUAL DIFF REQ NO Normal [facility] Comment on above: Performed By: #### C BC #### [facility] [address] [place] [address] Dr. Kirk García MCH (RBC) [Entitic mass] 34.4 pg Critically high 25.9-34.0 [facility] Comment on above: Performed By: #### C BC #### [facility] [address] [place] [address] Dr. Kirk García MCHC (RBC) [Mass/Vol] 34.4 g/dL Normal 29.9-35.2 [facility] Comment on above: Performed By: #### C BC #### [facility] [address] [place] [address] Dr. Kirk García MCV (RBC) [Entitic vol] 100.0 fL Critically high 80.0-94.0 [facility] Comment on above: Performed By: #### C BC #### [facility] [address] [place] [address] Dr. Kirk García MONO # 1.2 103/ul Critically high 0.3-0.8 [facility] Comment on above: Performed By: #### C BC #### [facility] [address] [place] [address] Dr. Kirk García Monocytes/100 WBC (Bld) 22.3 % Critically high 1.7-12.0 [facility] Comment on above: Performed By: #### C BC #### [facility] [address] [place] [address] Dr. Kirk García NEUT # 3.4 103/ul Normal 1.4-6.5 [facility] Comment on above: Performed By: #### C BC #### [facility] [address] [place] [address] Dr. Kirk García Neutrophils/100 WBC (Bld) 60.6 % Normal 43.0-75.0 [facility] Comment on above: Performed By: #### C BC #### [facility] [address] [place] [address] Dr. Kirk García Platelet mean volume (Bld) [Entitic vol] 11.6 fL Normal 9.5-13.5 [facility] Comment on above: Performed By: #### C BC #### [facility] [address] [place] [address] Dr. Kirk García PLT 99 103/ul Critically low 150-450 [facility] Comment on above: Performed By: #### C BC #### [facility] [address] [place] [address] Dr. Kirk García RBC 3.43 106/ul Critically low 4.70-6.10 [facility] Comment on above: Performed By: #### C BC #### [facility] [address] [place] [address] Dr. Kirk García WBC 5.5 103/ul Normal 4.0-11.0 [facility] Comment on above: Performed By: #### C BC #### [facility] [address] [place] [address] Dr. Kirk García CULTURE BLOODon 08-03-2022 Microscopic examination of blood, culture Culture Observations: NO GROWTH AT 5 DAYS. Normal [facility] Comment on above: Performed By: #### U MICRO, ERUR #### [facility] [address] [place] [address] Dr. Kirk García Microscopic examination of blood, culture Culture Observations: NO GROWTH AT 5 DAYS. Normal [facility] Comment on above: Performed By: #### U MICRO, ERUR #### [facility] [address] [place] [address] Dr. Kirk García Covid-19 PCR (CVDTB)on SARS-CoV-2 (COVID-19) RNA SANAZ+probe Ql (Unsp spec) Detected Critically abnormal NOT DETECTED [facility] Comment on above: Result Comment: This test is not yet approved or cleared by the [place] FDA. When there are no FDA-approved or cleared tests available, and other criteria are met, FDA can make tests available under an emergency access mechanism called an Emergency Use Authorization (EUA). The EUA for this test is supported by the [place] of Health and Human Service's declaration that [...] used). Performed By: #### C VDTBH #### [facility] [address] [place] [address] Dr. Kirk García GROUP A STREP CULTUREon S. pyogenes Ag Ql (Unsp spec) Culture Observations: NEGATIVE FOR GROUP A STREPTOCOCCUS. Normal [facility] Comment on above: Performed By: #### U MICRO, ERUR #### [facility] [address] [place] [address] Dr. Kirk García PROF 14(COMP METB)on 022 Albumin [Mass/Vol] 3.0 g/dL Critically low 3.4-5.0 [facility] Comment on above: Performed By: #### C MP #### [facility] [address] [place] [address] Dr. Kirk García Albumin/Globulin [Mass ratio] 0.7 {ratio} Normal [facility] Comment on above: Performed By: #### C MP #### [facility] [address] [place] [address] Dr. Kirk García ALP [Catalytic activity/Vol] 76 U/L Normal 46-116 [facility] Comment on above: Performed By: #### C MP #### [facility] [address] [place] [address] Dr. Kirk García ALT [Catalytic activity/Vol] 27 U/L Normal 16-63 [facility] Comment on above: Performed By: #### C MP #### [facility] [address] [place] [address] Dr. Kirk García Anion gap [Moles/Vol] 8.9 mmol/L Normal [facility] Comment on above: Performed By: #### C MP #### [facility] [address] [place] [address] Dr. Kirk García AST [Catalytic activity/Vol] 17 U/L Normal 15-37 [facility] Comment on above: Performed By: #### C MP #### [facility] [address] [address] [address] Kirk García Bilirubin [Mass/Vol] 1.3 mg/dL Critically high 0.2-1.0 [facility] Comment on above: Performed By: #### C MP #### [facility] [address] [place] [address] Dr. Kirk García Calcium [Mass/Vol] 8.1 mg/dL Critically low 8.5-10.1 [facility] Comment on above: Performed By: #### C MP #### [facility] [address] [place] [address] Dr. Kirk García Chloride [Moles/Vol] 94 mmol/L Critically low 98-107 [facility] Comment on above: Performed By: #### C MP #### [facility] [address] [place] [address] Dr. Kirk García CO2 [Moles/Vol] 27.5 mmol/L Normal 21.0-32.0 [facility] Comment on above: Performed By: #### C MP #### [facility] [address] [place] [address] Dr. Kirk García Creatinine [Mass/Vol] 1.65 mg/dL Critically high 0.70-1.30 [facility] Comment on above: Performed By: #### C MP #### [facility] [address] [place] [address] Dr. Kirk García EGFR-AF TONGAN 48 mL/min/1.73m2 Critically low >=60 [facility] Comment on above: Performed By: #### C MP #### [facility] [address] [place] [address] Dr. Kirk García EGFR-NON AF TONGAN 40 mL/min/1.73m2 Critically low >=60 [facility] Comment on above: Performed By: #### C MP #### [facility] [address] [address] [address] Kirk García Globulin (S) [Mass/Vol] 4.5 g/dL Normal [facility] Comment on above: Performed By: #### C MP #### [facility] [address] [address] [address] Kirk García Glucose [Mass/Vol] 118 mg/dL Critically high 74-106 T [facility] Comment on above: Performed By: #### C MP #### [facility] [address] [address] [address] Kirk García Potassium [Moles/Vol] 4.4 mmol/L Normal 3.5-5.1 [facility] Comment on above: Performed By: #### C MP #### [facility] [address] [address] [address] Kirk García Protein [Mass/Vol] 7.5 g/dL Normal 6.4-8.2 [facility] Comment on above: Performed By: #### C MP #### [facility] [address] [place] [address] Dr. Kirk García Sodium [Moles/Vol] 126 mmol/L Critically low 136-145 [facility] Comment on above: Performed By: #### C MP #### [facility] [address] [address] [address] Kirk García Urea nitrogen [Mass/Vol] 36.0 mg/dL Critically high 7.0-18.0 [facility] Comment on above: Performed By: #### C MP #### [facility] [address] [address] [address] Kirk García Urea nitrogen/Creatinin e [Mass ratio] 21.8 mg/mg Normal [facility] Comment on above: Performed By: #### C MP #### [facility] [address] [address] [address] Kirk García STREPT SCREENon 08-03-2022 STREP SCREEN A Negative Normal NEGATIVE [facility] Comment on above: Performed By: #### U MICRO, ERUR #### [facility] [address] [address] [address] Kirk García XR CHEST 1 Von [...] MILAGROS REEDER Date: 2022-08-03 12:55 Normal [facility] CBC AUTO DIFFon 07-08-2022 BASO # 0.0 103/ul Normal 0.0-0.1 [facility] Comment on above: Performed By: #### C BC #### [facility] [address] [address] [address] Kirk García Basophils/100 WBC (Bld) 0.5 % Normal 0.2-2.0 [facility] Comment on above: Performed By: #### C BC #### [facility] [address] [address] [address] Kirk García EO # 0.1 103/ul Normal 0.0-0.7 [facility] Comment on above: Performed By: #### C BC #### [facility] [address] [id number] [address] Kirk García Eosinophils/100 WBC (Bld) 1.4 % Normal 0.9-7.0 [facility] Comment on above: Performed By: #### C BC #### [facility] [address] [address] [address] Kirk García Erythrocyte distribution width (RBC) [Ratio] 13.4 % Normal 11.0-15.0 [facility] Comment on above: Performed By: #### C BC #### [facility] [address] [place] [address] Dr. Kirk García Hematocrit (Bld) [Volume fraction] 39.6 % Critically low 42.0-54.0 [facility] Comment on above: Performed By: #### C BC #### [facility] [address] [place] [address] Dr. Kirk García Hemoglobin (Bld) [Mass/Vol] 13.2 g/dL Critically low 14.0-18.0 [facility] Comment on above: Performed By: #### C BC #### [facility] [address] [place] [address] Dr. Kirk García IG # 0.02 10e3/ul Normal 0.00-0.03 [facility] Comment on above: Performed By: #### C BC #### [facility] [address] [place] [address] Dr. Kirk García IG % 0.3 % Normal 0.0-0.5 [facility] Comment on above: Performed By: #### C BC #### [facility] [address] [place] [address] Dr. Kirk García LYMPH # 1.7 103/ul Normal 1.2-3.8 [facility] Comment on above: Performed By: #### C BC #### [facility] [address] [place] [address] Dr. Kirk García Lymphocytes/100 WBC (Bld) 28.7 % Normal 20.5-60.0 [facility] Comment on above: Performed By: #### C BC #### [facility] [address] [place] [address] Dr. Kirk García MANUAL DIFF REQ NO Normal [facility] Comment on above: Performed By: #### C BC #### [facility] [address] [place] [address] Dr. Kirk Garcaí MCH (RBC) [Entitic mass] 34.4 pg Critically high 25.9-34.0 [facility] Comment on above: Performed By: #### C BC #### [facility] [address] [address] [address] Kirk García MCHC (RBC) [Mass/Vol] 33.3 g/dL Normal 29.9-35.2 [facility] Comment on above: Performed By: #### C BC #### [facility] [address] [address] [address] Kirk García MCV (RBC) [Entitic vol] 103.1 fL Critically high 80.0-94.0 [facility] Comment on above: Performed By: #### C BC #### [facility] [address] [address] [address] Kirk García MONO # 0.9 103/ul Critically high 0.3-0.8 [facility] Comment on above: Performed By: #### C BC #### [facility] Laboratory [address] [place] [address] Dr. Kirk García Monocytes/100 WBC (Bld) 15.8 % Critically high 1.7-12.0 [facility] Comment on above: Performed By: #### C BC #### [facility] [address] [address] [address] Kirk García NEUT # 3.1 103/ul Normal 1.4-6.5 [facility] Comment on above: Performed By: #### C BC #### [facility] [address] [place] [address] Dr. Kirk García Neutrophils/100 WBC (Bld) 53.3 % Normal 43.0-75.0 [facility] Comment on above: Performed By: #### C BC #### [facility] [address] [address] [address] Kirk García Platelet mean volume (Bld) [Entitic vol] 10.6 fL Normal 9.5-13.5 [facility] Comment on above: Performed By: #### C BC #### [facility] [address] [place] [address] Dr. Kirk García PLT 147 103/ul Critically low 150-450 [facility] Comment on above: Performed By: #### C BC #### [facility] [address] [address] [address] Kirk García RBC 3.84 106/ul Critically low 4.70-6.10 [facility] Comment on above: Performed By: #### C BC #### [facility] [address] [address] [address] Kirk García WBC 5.9 103/ul Normal 4.0-11.0 [facility] Comment on above: Performed By: #### C BC #### [facility] [address] [address] [address] Kirk García DIGOXINon 07-08-2022 DIG 1.1 ng/mL Normal 0.9-2.0 [facility] Comment on above: Performed By: #### U MICRO, ERUR #### [facility] [address] [place] [address] Dr. Kirk García PROF CHEM 8 (BAS METB)on Anion gap [Moles/Vol] 13.6 mmol/L Normal [facility] Comment on above: Performed By: #### U MICRO, ERUR #### [facility] [address] [address] [address] Kirk García Calcium [Mass/Vol] 9.5 mg/dL Normal 8.5-10.1 [facility] Comment on above: Performed By: #### U MICRO, ERUR #### [facility] [address] [address] [address] Kirk García Chloride [Moles/Vol] 97 mmol/L Critically low 98-107 [facility] Comment on above: Performed By: #### U MICRO, ERUR #### [facility] [address] [address] [address] Kirk García CO2 [Moles/Vol] 28.8 mmol/L Normal 21.0-32.0 [facility] Comment on above: Performed By: #### U MICRO, ERUR #### [facility] [address] [address] [address] Kirk García Creatinine [Mass/Vol] 1.43 mg/dL Critically high 0.70-1.30 [facility] Comment on above: Performed By: #### U MICRO, ERUR #### [facility] [address] [place] [address] Dr. Kirk García EGFR-AF TONGAN 57 mL/min/1.73m2 Critically low >=60 [facility] Comment on above: Performed By: #### U MICRO, ERUR #### [facility] [address] [address] [address] Kirk García EGFR-NON AF TONGAN 47 mL/min/1.73m2 Critically low >=60 [facility] Comment on above: Performed By: #### U MICRO, ERUR #### [facility] [address] [place] [address] Dr. Kirk García Glucose [Mass/Vol] 99 mg/dL Normal 74-106 [facility] Comment on above: Performed By: #### U MICRO, ERUR #### [facility] [address] [place] [address] Dr. Kirk García Potassium [Moles/Vol] 4.4 mmol/L Normal 3.5-5.1 [facility] Comment on above: Performed By: #### U MICRO, ERUR #### [facility] [address] [place] [address] Dr. Kirk García Sodium [Moles/Vol] 135 mmol/L Critically low 136-145 [facility] Comment on above: Performed By: #### U MICRO, ERUR #### [facility] [address] [place] [address] Dr. Kirk García Urea nitrogen [Mass/Vol] 29.0 mg/dL Critically high 7.0-18.0 [facility] Comment on above: Performed By: #### U MICRO, ERUR #### [facility] [address] [place] [address] Dr. Kirk García Urea nitrogen/Creatinin e [Mass ratio] 20.3 mg/mg Normal [facility] Comment on above: Performed By: #### U MICRO, ERUR #### [facility] [address] [place] [address] Dr. Kirk García Patient Educationon 03-16-20 22 [...] Are older than age 65. ? Are -Bahamian. ? Are obese. ? Have a family [...] Follow these instructions at home: ? Take vjws-wcl-lscvsys and prescription medicines only as told by [...] cancer specialis (more content not included)... Normal [facility] Urology Office/Clinic Noteon 03-16-2022 Urology Office/Clinic Note [...] E&M of Est. Patient Moderate 30-39 Min 55492 Measure Post Void residual urine and/or bladder capacity by US- non-imaging 14682 Urnls Dip Stick Auto w/o Microscopy POC 74179 2. History of prostate cancer (Z85.46: Personal history of malignant neoplasm of prostate) s/p brachytherapy in 2004. PSA remained very low. pt decided to have PCP do annual monitoring when he saw PRW March 2021. Ordered: E&M of Est. Patient Moderate 30-39 Min 15454 Measure Post Void residual urine and/or bladder capacity by US- non-imaging 57262 Urnls Dip Stick Auto w/o Microscopy POC 06788 Orders: oxybutynin, 5 mg = 1 tab(s), Oral, Daily, # 90 tab(s), Refills(s) 3, Pharmacy: [facility], IP #72, 183, cm, 03/16/22 9:10:00 EDT, Height/Length Dosing, 99.3, kg, 03/16/22 9:10:00 EDT, Weight Dosing Follow-up With When Contact Information KENNETH SHEPARD, MARYBETH Trivedi, LORNA Within 6 months [address] [place] [address] Business (1) Additional Instructions: Patient Education Prostate Cancer 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 Normal [facility] Comment on above: Result Comment: Elec tronically [...] Are older than age 65. ? Are -Bahamian. ? Are obese. ? Have a family [...] Follow these instructions at home: ? Take vuxy-smb-qldryif and prescription medicines only as told by [...] cancer specialis (more content not included)... Normal [facility] Urology Office/Clinic Noteon 01-06-2022 Urology Office/Clinic Note [...] worsen Ordered: Office Visit Level 4 Est 23877 2. History of prostate cancer (Z85.46: Personal history of malignant neoplasm of prostate) s/p brachytherapy in 2004. PSA remained very low. pt decided to have PCP do annual monitoring when he saw PRW at last visit March 2021. 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 Normal [facility] Comment on above: Result Comment: Elec tronically Signed By: MARYBETH COOPER PA-C\.lisa\Date and Time Signed: 01/06/22 16:55 NYDIA Corey 07-29-2021 MANOJ Telephone ([employer]Kiosk) HEATHSAMSON Del Cid ([id number]) 1935 M Date Time Provider Department 07/29/21 DALILA RILEY During your visit today, we recorded the following information about you: Dalila Riley RN 07/29/2021 10:36 AM Signed Spoke with Samson, he is currently still at the hotel and is planning on going to the [facility]. We discussed pain control and did remind patient use of Aleve or Motrin in between narcotics as the narcotics can increase issues with constipation. We did discuss use of Miralax if no Bm by Monday and patients states MA will help him with that. Encouraged to keep up with water intake especially since no appetite today. 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 [3608] Cmt: post-op Prescriptions as [...] Status:Closed by DALILA RILEY on 07/29/21 Normal [facility] ANES POSTPROC EVALon 021 ANES POSTPROC EVAL HNO ID: [id number] Author: Ramiro Esquivel MD Service: Anesthesiology Author [...] July 28, 2021 TIME: 1:35 PM CSN: [id number] [facility] ANES PRE-OPon 07-28-2021 ANES PRE-OP HNO ID: [id number] Author: Ramiro Esquivel MD Service: Anesthesiology Author [...] 100 mL Vial-Bag (UNASYN) [address] Stenographer to OR - [COMPLETED] acetaminophen 1,000 mg [...] July 28, 2021 TIME: 10:17 AM CSN: [id number] [facility] HISTORY PHYSICALon HISTORY PHYSICAL HNO ID: [id number] Author: Jewel Cary III, MD Service: General [...] DATE: July 28, 2021 TIME: 10:16 AM [facility] OPERATIVE NOon 07-28-2021 OPERATIVE NO HNO ID: [id number] Author: Jewel Cary III, MD Service: General Surgery Author Type: Physician Type: Operative Report Filed: 07/28/2021 11:24 AM Note Text: OPERATIVE REPORT LOG ID: [id number] SURGERY/PROCEDURE DATE: 07/28/2021 INCISION/PROCEDURE START TIME: 10:47 AM INCISION CLOSE/PROCEDURE END TIME: 11:24 AM SURGEON: Jewel Cary III, MD ?? PIZZAMAKER: Monserrat Salazar PA-C? ? OPERATION: Laparoscopic cholecystectomy (15903). ? ANESTHESIA: GETA and 10 mL of [...] July 28, 2021 TIME: 11:22 AM Normal [facility] SURGICAL PATHOLOGYon 021 SURGICAL PATHOLOGY Specimen originated from [facility] Specimen #: [id number] Submitting Physician: JEWEL CARY MD FINAL DIAGNOSIS [...] The mucosa is walker-red, hyperemic, and granular. Piece Worker sections are submitted as follows: A1 cystic duct margin and wall, A2 fundus. SLE/ch 07/28/2021 Gross examination [facility] [place] [address] Date of Report: 07/29/2021 Date of Procedure: 07/28/2021 Date of Receipt: 07/28/2021 Submitted by: JEWEL CARY MD Location: AV Diagnostic interpretation performed [facility] [address] [address]. CLIA Number: [id number] Normal [facility] Comment on above: Performed By: #### S #### See report for performing lab information. HISTORY PHYSICALon HISTORY PHYSICAL HNO ID: [id number] Author: Denita Simmons PA-C Service: ? Author Type: Physician Dry Charge Process Attendant Type: HANDP Filed: 07/19/2021 4:18 PM Note [...] in November 2019. He was admitted to [facility] due to Yuni cystitis. Providers at [...] 20's - PACEMAKER 2006 - PACEMAKER 01/2021 [employer] placed - PAST SURGICAL HISTORY OF [...] fevers. Neuro: No history of TIA's, stroke, LEAD SOFTWARE ARCHITECT tumor, impaired sensorium, hemiplegia, paraplegia or quadraplegia. No neurological symptoms or problems. Respiratory: Negative for Asthma, Dyspnea, Tobacco Use, URI < 2 weeks +PND - can rarely trigger cough, but stable, no acute symptoms Cardiovascular: +Pacemaker ([employer]ien) - A-fib hx, CHB no symptoms +Heart failure - on digoxin, Lasix. Chronic lower extremity edema. +Valve history - s/p Mitral and tricuspid repair 2017 - Dr. Ulysses Duran - Ra (more content not included)... [facility] CNCOon 07-13-2021 CNCO Letter Text Normal [facility] CNPNon 07-13-2021 CNPN Telephone (GENSAV) SAMSON JOE ([id number]) 1935 M Date Time Provider Department 07/13/21 [...] by routing message back to Angel ROSARIO TOBACCO CONDITIONER, prior to notifying the patient. Marybeth Laureano 07/13/2021 1:53 PM Signed Pt seeing Cardi Dr Ulysses Duran @ [facility] Will send clearance to this provider Cat Gibbs 07/15/2021 11:03 AM Signed Cari from Alondra Duran's office called and asked to have clearance letter fax to [phone]. Thank you. Marybeth Laureano 07/15/2021 11:21 AM [...] Encounter Status:Closed by MARYBETH LAUREANO on 07/13/21 [facility] 07-12-2021 CNPN Telephone (GENSAV) HEATHSAMSON Del Cid ([id number]) 1935 M Date Time Provider Department 07/12/21 JEWEL CARY III During your visit today, we recorded the following information about you: Marybeth Georgi 07/13/2021 2:08 PM Addendum Cur received Pt needs cardiac clearance Dr Kody Lynn Tele enct sent Spoke w pt he now sees Dr Ulysses Dur[facility]. Letter electronically sent. Marybeth Georgi 07/13/2021 3:25 PM Signed electronic faxed failed printed and sent to verified fax number of [phone]. Confirmed received. Marybeth Georgi 07/19/2021 3:02 PM [...] Encounter Status:Closed by GEORGIEMILMARYBETH on 07/19/21 [facility] HISTORY PHYSICALon HISTORY PHYSICAL HNO ID: [id number] Author: Jewel Cary III, MD Service: ? [...] for internal providers or letter via the [employer] Postal Service for external providers. HISTORY: He [...] stored in (more content not included)... Normal [facility] OPERATIVE REPORTon OPERATIVE REPORT NAME: SAMSON JOE MR#: [id number] SURGEON: Ulysses Duran MD DATE OF SURGERY: 02/01/2021 OPERATIVE REPORT PREOPERATIVE DIAGNOSIS: End of life pacemaker pulse generator. POSTOPERATIVE DIAGNOSIS: End of life pacemaker pulse generator. PROCEDURE: Change out of end of life pacemaker pulse generator. DESCRIPTION OF PROCEDURE: call center team leader to the OR, he received 1 g [...] inserted. The new pulse generator is a [employer] Accolade MRI safe pacemaker, model #L311 serial #[id number]. The pulse generator was attached to the [...] end of the day today. MD GLORIA KAHN/ANDRIA/[id number] 0920 E/S: Ulysses Duran MD 02/08/21 0856 Electronically Signed [facility] PT NAME: SAMSON JOE MR#: [id number] [address] [place] [address] ACCT: [id number] : [birth year] OPERATIVE REPORT Normal [facility] SURGon 02-01-2021 SURG Normal [facility] Comment on above: Result Comment: RUN DATE: 02/02/21 [facility] LAB *LIVE* PAGE 1RUN TIME: 1351 Specimen InquiryRUN USER: [employer] Name: SAMSON JOE : [birth year] Sex:M Attend Dr: Ulysses Duran [facility]#: [id number] Unit#: [id number] Status: [facility] Location: [facility]17-01 Received: 02/01/21 Status: PRIYANKA Patterson#: [id number]#: [id number] Collected: 02/01/21-[address] [facility] [address]: Ulysses Duran MDTISSUES: A. EXPLANTED HARDWARE MICROSCOPIC EXAM: N/A DIAGNOSIS: EXPLANTED HARDWARE, REMOVAL: - PULSE GENERATOR (GROSS DIAGNOSIS ONLY) Signed Signature on File KT SCHAFER 02/02/21 1351 [facility] Name: SAMSON JOE [facility] Hosp Num: [id number] A Ministry of Age / Sex: 85/M [facility] Physician: Ulysses Duran MD [address] [place] [address] Location: SAME DAY SURGERY END OF REPORT Performed By: #### P SURG ####Test performed at: [address] [address] Vital Signs Date Time Vital Sign Value Performing Clinician Facility 11-22-2023 10:00-0500 Body height 182.88 cm [employer] Other [facility] Other 11-22-2023 10:00-0500 Body mass index (BMI) [Ratio] 28.67 kg/m2 [employer] Other [facility] Other 11-22-2023 10:00-0500 Body weight 95.89 kg [employer] Other [facility] Other 11-22-2023 10:00-0500 Diastolic blood pressure 64 mm[Hg] [employer] Other [facility] Other 11-22-2023 10:00-0500 Respiratory rate 16 /min Timo Ball Other [facility] Other 11-22-2023 10:00-0500 SaO2% (BldA) [Mass fraction] 95 % Timo Ball Other [facility] Other 11-22-2023 10:00-0500 Systolic blood pressure 102 mm[Hg] Timo Ball Other [facility] Other 10-03-2023 13:45-0500 Body height 182.88 cm Timo Ball Other [facility] Other 10-03-2023 13:45-0500 Body mass index (BMI) [Ratio] 29.02 kg/m2 Timo Ball Other [facility] Other 10-03-2023 13:45-0500 Body weight 97.07 kg Timo Ball Other [facility] Other 10-03-2023 13:45-0500 Diastolic blood pressure 67 mm[Hg] Timo Ball Other [facility] Other 10-03-2023 13:45-0500 Respiratory rate 16 /min Timo Ball Other [facility] Other 10-03-2023 13:45-0500 Systolic blood pressure 106 mm[Hg] Timo Ball Other [facility] Other 09-29-2023 13:45-0400 Body height 182.88 cm Timo Ball Other [facility] Other 08-31-2023 11:00-0400 Body height 182.88 cm Timo Ball Other [facility] Other 08-31-2023 11:00-0400 Body mass index (BMI) [Ratio] 28.23 kg/m2 Timo Ball Other [facility] Other 08-31-2023 11:00-0400 Body weight 94.44 kg Timo Ball Other [facility] Other 08-31-2023 11:00-0400 Diastolic blood pressure 61 mm[Hg] Timo Ball Other [facility] Other 08-31-2023 11:00-0400 Respiratory rate 12 /min Timo Ball Other [facility] Other 08-31-2023 11:00-0400 Systolic blood pressure 105 mm[Hg] Timo Ball Other [facility] Other 05-26-2023 11:00-0400 Body height 182.88 cm Timo Ball Other [facility] Other 05-26-2023 11:00-0400 Body mass index (BMI) [Ratio] 28.69 kg/m2 Timo Ball Other [facility] Other 05-26-2023 11:00-0400 Body weight 95.98 kg Timo Ball Other [facility] Other 05-26-2023 11:00-0400 Diastolic blood pressure 66 mm[Hg] Timo Ball Other [facility] Other 05-26-2023 11:00-0400 Respiratory rate 16 /min Timo Ball Other [facility] Other 05-26-2023 11:00-0400 Systolic blood pressure 116 mm[Hg] Timo Ball Other [facility] Other 01-20-2023 11:00-0500 Body height 182.88 cm Timo Ball Other [facility] Other 01-20-2023 11:00-0500 Body mass index (BMI) [Ratio] 28.53 kg/m2 Timo Ball Other [employer] Other 01-20-2023 11:00-0500 Body weight 95.44 kg Timo Ball Other [employer] Other 01-20-2023 11:00-0500 Diastolic blood pressure 64 mm[Hg] Timo Ball Other [facility] Other 01-20-2023 11:00-0500 Respiratory rate 16 /min Timo Ball Other [facility] Other 01-20-2023 11:00-0500 Systolic blood pressure 102 mm[Hg] Timo Ball Other [facility] Other 09-21-2022 12:18-0400 Blood Pressure Location MARYBETH KENNETH [facility] 09-21-2022 12:18-0400 Diastolic blood pressure 58 mm[Hg] MARYBETH KENNETH [facility] 09-21-2022 12:18-0400 Heart rate 80 /min MARYBETH KENNETH [facility] 09-21-2022 12:18-0400 Respiratory rate 16 /min MARYBETH KENNETH [facility] 09-21-2022 12:18-0400 Systolic blood pressure 111 mm[Hg] MARYBETH COOPER [facility] 03-16-2022 08:49-0400 Blood Pressure Location MARYBETH COOPER [facility] [employer] 03-16-2022 08:49-0400 Diastolic blood pressure 65 mm[Hg] MARYBETH COOPER [facility] [employer] 03-16-2022 08:49-0400 Heart rate 75 /min MARYBETH COOPER [facility] [employer] 03-16-2022 08:49-0400 Systolic blood pressure 93 mm[Hg] MARYBETH COOPER [facility] [employer] Encounters Encounter Date Encounter Type Care Provider Facility Start: 11-22-2023 End: 11-22-2023 ambulatory Timo Penny Other [facility] Other Start: 11-22-2023 Telephone encounter Timo Olivas [facility] Start: 11-22-2023 [facility] Timo RAMIREZ [facility] Start: 11-17-2023 End: 11-17-2023 ambulatory Timo Penny Other [facility] Other Start: 11-17-2023 Telephone encounter Timo DIEGO [facility] Start: 10-04-2023 End: 10-04-2023 ambulatory Timo Bar Other [facility] Other Start: 10-04-2023 Telephone encounter Timo [facility] Start: 10-03-2023 End: 10-03-2023 ambulatory Timo Bar Other [facility] Other Start: 10-03-2023 Office outpatient vi sit 15 minutes Timo Bar [facility] Start: 09-29-2023 End: 09-29-2023 ambulatory Timo Bar Other [facility] Other Start: 09-29-2023 Nursing evaluation o f patient and report Timo Bar [facility] Start: 09-06-2023 End: 09-06-2023 ambulatory Timo Bar Other [facility] Other Start: 09-06-2023 Telephone encounter Timo Bar [facility] Start: 08-31-2023 End: 08-31-2023 ambulatory Timo Bar Other [facility] Other Start: 08-31-2023 Patient encounter procedure Timo Bar [facility] Start: 05-26-2023 End: 05-26-2023 ambulatory Timo Bar Other [facility] Other Start: 05-26-2023 Office outpatient vi sit 25 minutes Timo Bar [facility] Start: 05-02-2023 End: 05-02-2023 ambulatory [facility] Start: 04-17-2023 End: 04-17-2023 ambulatory JUAN LUIS [facility] Start: 01-20-2023 End: 01-20-2023 ambulatory Timo Bra Other [facility] Other Start: 01-20-2023 Office outpatient vi sit 25 minutes Timo Bar [facility] Start: 09-21-2022 End: 09-22-2022 ambulatory MARYBETH COOPER Facility:[facility] Start: 09-21-2022 End: 09-21-2022 Patient encounter procedure MARYBETH COOPER [facility] Start: 09-06-2022 End: 09-07-[address] TIMO BAR Facility:[facility] Start: 08-14-2022 End: 08-15-[address] TIMO BAR Facility:[facility] Start: 08-03-2022 End: 08-04-[address] TIMO BAR Facility:[facility] Start: 07-08-2022 End: 07-09-[address] TIMO BAR Facility:[facility] Start: 03-16-2022 End: 03-17-2022 ambulatory MARYBETH COOPER Facility:[facility] Start: 03-16-2022 End: 03-16-2022 Patient encounter procedure MARYBETH COOPER [facility] Start: 01-06-2022 End: 01-07-2022 ambulatory MARYBETH COOPER Facility:[facility] Start: 01-05-2022 ambulatory MARYBETH COOPER Facility :[facility] Start: 12-07-2018 Patient encounter procedure Facility:[id number] Start: 12-06-2018 Patient encounter procedure Facility:[id number] Procedures Date Procedure Procedure Detail Performing Clinician Start: 07-08-[address] CURRIE [place] Comment on above: Performed By: #### U MICRO, ERUR #### [facility] [address] [place] [address] Dr. Kirk García Start: 07-28-2021 Cholecystectomy SHADIA COOPER Start: 11-27-2006 Colonoscopy MARYBETH GRAVES Start: 11-27-2004 Implantation of radi oactive seed into prostate MARYBETH OCOPER Repair of right ingu inal hernia MARYBETH COOPER Transrectal biopsy o f prostate using ultrasound guidance MARYBETH COOPER Immunizations Immunization Date Immunization Notes Care Provider Dari pérez 09-29-2023 influenza, high dose seasonal, preservative-free Timo Bar Other [facility] Other 09-07-2022 influenza virus vaccine, split virus (incl. purified surface antigen) Timo Bar Other [facility] Other 04-26-2022 SARS-CoV-2 mRNA (sqqbixaqlgm-tinf-ehlbj se) vaccine MARYBETH COOPER [facility] 09-02-2021 SARS-CoV-2 (COVID-19 ) mRNA BNT-162b2 vax MARYBETH COOPER [facility] 08-18-2021 influenza virus vaccine, unspecified formulation MARYBETHKOURTNEY COOPER [facility] 08-13-2021 influenza virus vaccine, split virus (incl. purified surface antigen) Timo Bar Other [facility] Other 02-23-2021 SARS-CoV-2 (COVID-19 ) mRNA BNT-162b2 vax MARYBETH COOPER [facility] 02-03-2021 SARS-CoV-2 (COVID-19 ) mRNA BNT-162b2 vax MARYBETH COOPER [facility] Comment on above: Result Comment: 2021: [id number] 01-25-2021 SARS-CoV-2 (COVID-19 ) mRNA BNT-162b2 vax MARYBETH COOPER [facility] 08-31-2020 influenza virus vaccine, split virus (incl. purified surface antigen) Timo Bar Other [facility] Other 08-30-2019 influenza virus vaccine, split virus (incl. purified surface antigen) Timo Bar Other [facility] [employer] Other 08-30-2019 influenza virus vaccine, unspecified formulation MARYBETH COOPER [facility] 08-29-2018 influenza virus vaccine, split virus (incl. purified surface antigen) Timo Bar Other [facility] [employer] Other 08-29-2018 influenza virus vaccine, unspecified formulation MARYBETH COOPER [facility] 08-03-2017 influenza virus vaccine, split virus (incl. purified surface antigen) Timo Bar Other [facility] [employer] Other 08-03-2017 influenza virus vaccine, unspecified formulation MARYBETH COOPER [facility] 09-05-2016 influenza virus vaccine, split virus (incl. purified surface antigen) Timo Bar Other [facility] [employer] Other 09-05-2016 influenza virus vaccine, unspecified formulation MARYBETH COOPER [facility] 10-16-2015 pneumococcal conjuga te vaccine, 13 valent Timo Bar Other [facility] [employer] Other 09-01-2015 influenza virus vaccine, split virus (incl. purified surface antigen) Timo Bar Other [employer] [facility] [employer] Other 09-15-2014 tetanus and diphther ia toxoids, adsorbed, preservative free, for adult use (5 Lf of tetanus toxoid and 2 Lf of diphtheria toxoid) Timo Bar Other [facility] Other 08-27-2013 tetanus and diphther ia toxoids, adsorbed, preservative free, for adult use (5 Lf of tetanus toxoid and 2 Lf of diphtheria toxoid) Timo Bar Other [facility] Other 01-10-2007 pneumococcal polysaccharide vaccine, 23 valent Timo Bar Other [facility] Other 1999 pneumococcal polysaccharide vaccine, 23 valent MARYBETH COOPER [facility] Payers Date Payer Category Payer Unknown [id number] 1960 Medicare [id number] 1960 Unknown [id number] 1934 Unknown [id number] 2.16. [id number] 1934 Unknown [id number] 2.16. [id number] 1934 Unknown [id number] 2.16.8 40.1.846629.3.579.2.727 1934 Unknown [id number] 2.16.8 40.1.804229.3.579.2.727 1934 Unknown [id number] 2.16.8 40.1.099122.3.579.2.727 1934 Unknown [id number] 2.16.8 40.1.477295.3.579.2.727 1934 Unknown [id number] 2.16.8 40.1.008560.3.579.2.727 1934 Unknown [id number] 2.16.84 0.1.250963.3.579.2.593 1934 Unknown [id number] 2.16.84 0.1.205750.3.579.2.593 1934 Unknown [id number] 2.16.84 0.1.664550.3.579.2.593 1934 Unknown [id number] 2.16.84 0.1.242725.3.579.2.593 Medicare [id number] Unknown [id number] 2.16.8 [id number] Social History Date Type Detail Facility Start: 03-16-2022 End: 09-21-2022 Tobacco smoking status Never smoked tobacco (finding) [facility] Tobacco smoking status Never [facility] Sex Assigned At Male [facility] Functional Status Date Assessment Result Facility 09-21-2022 Functional Status N/A [facility] Clinical Notes 07-28-2021 to 11-29-2023 Note Date & Type Note Facility 11-29-2023 Note [id number] = 4 12/22/2016 - s/p [facility] 11-29-2023 Note H/O MV ring annulopl asty Monitor with echcoardiogram [facility] 11-29-2023 Note stable [facility] 11-29-2023 Note Will check BMP [facility] 11-29-2023 Note EF 35-40% with RV di litation [facility] III Continue GDMT- Diuretic therapy Monitor daily weights, I&O, fluid restriction 1.5-2L/day, renal function and electrolytes- [facility] 11-29-2023 Note Monitor symptoms and routine echocardiogram [facility] 11-29-2023 Note Device interrogation q 6 months [facility] 11-22-2023 Evaluation note Encounter Date Diagnosis [...] are maintaining regular scheduled appts with their boiler service technician. s/p LAAO procedure, off anticoagulation Oct, Pulmonary [...] I44.1) PM inserted PM checkups every 6months. [facility] Other 11-07-2023 Evaluation note* Encounter Date Diagnosis [...] continue exercise to achieve/maintain a normal BMI. [facility] Other 10-05-2023 Evaluation note* Encounter Date Diagnosis [...] are maintaining regular scheduled appts with their boiler service technician. No bleeding complications Aug, Chronic venous insufficiency [...] (ICD-10 - Z79.899) Check labs: CBC, Dig [facility] Other 06-30-2023 Evaluation note* Encounter Date Diagnosis [...] are maintaining regular scheduled appts with their boiler service technician. No bleeding complications Apr, Chronic venous insufficiency (ICD-10 - I87.2) Avoid salt and elevate lower extremities, support stockings, inspect legs and feet daily for blisters and ulcerations. 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 No active treatment at this time. [facility] Other 05-22-2023 NotePatient is here today to establish care Review of Systems HENT: Positive for ear discharge. Eyes: Positive for vision loss in left eye and vision loss in right eye. Respiratory: Positive for cough. All other systems reviewed and are negative.[facility] 04-17-2023 NoteCardiovascular Medicine [place] SUBJECTIVE Chief Complaint Patient presents with [...] puffier lately. -Will ob (more content not included)...[facility] 01-20-2023 Evaluation note* Encounter Date Diagnosis [...] are maintaining regular scheduled appts with their boiler service technician. 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 Needs new Oil Changer, suggest [facility] here in [place] Dec, History of prostate cancer (ICD-10 - Z85.46) No s/s recurrence [facility] Other [id number] Hospital Discharge instructions Patient Education 09/21/2022 12:37:02 [...] who: Are older than age 65. Are -Bahamian. Are obese. Have a family history of [...] cells. Follow these instructions at home: Take kjye-ecp-tgnrutl and prescription medicines only as told by [...] 11/13/2006 Document Revised: 10/26/2018 Document Reviewed: 07/24/2017 [employer] Patient Education [employer]. Follow Up Care 03/16/2022 09:37:24 With:MARYBETH COOPER PA-C, URL Address: [address] [place] [phone] When: only if needed [facility]22 Hospital Discharge instructions Patient Education 03/16/2022 [...] who: Are older than age 65. Are -Bahamian. Are obese. Have a family history of [...] cells. Follow these instructions at home: Take flot-kan-dykdywo and prescription medicines only as told by [...] 11/13/2006 Document Revised: 10/26/2018 Document Reviewed: 07/24/2017 [employer] Patient Education 2020 [employer]. Follow Up Care 01/28/2022 16:02:47 With:KENNETH SHEPARD MARYBETH Farooq, URL Address: [address] [place] [address] Business (1) When:6 months [facility] 09-21-2021 NoteHNO ID: [id number] Author: Jewel Cary III, MD Service: ? Author Type: Physician Type: Progress Notes Filed: 08/17/2021 9:33 AM Note Text: This patient is post op from laparoscopic cholecystectomy. He has had no symptoms. P.E. The wounds are healing well without evidence of infection. I reviewed the pathology report with Samson. Assessment Satisfactory course Plan: Return to office PRN. Jewel Cary III, [facility]09-01-2021 NoteHNO ID: [id number] Author: Jaspal Phipps APRN.DELPHI PROGRAMMER Service: Anesthesiology Author Type: Nurse Gaming Commissioner Type: Anesthesia Procedure Notes Filed: 07/28/2021 10:50 AM Note Text: ANESTHESIOLOGY PROCEDURE NOTE Airway General Information Procedure Start Time/Medication Administration: 07/28/2021 10:40 AM Patient location during procedure: OR Patient identity confirmed: arm band and patient Staffing Anesthesiologist: Ramiro Esquivel MD DELPHI PROGRAMMER: Jaspal Phipps APRN.DELPHI PROGRAMMER Performed by: DELPHI PROGRAMMER Indications and Patient Condition Preoxygenated: yes Patient [...] July 28, 2021 TIME: 10:48 AM CSN: [id number] HospitalEvaluation + Plan note Future Appointments Appointment Date:09/21/2022 10:00:00 AM Scheduled Provider:MARYBETH COOPER PA-C Location:[facility] Appointment Type:URO Office Visit [facility] evaluation noteNo InformationNortMyPronostic Other History general Narrative - Reported* Type [...] [employer] 11/2029 Hospitalization History see surgical history [facility] Other History general Narrative - Reported* Type [...] 20 16 Hospitalization History see surgical history [facility] Other Hospital course Narrative No data available for this section [facility] progress note No data available for this section [facility] Summary Purpose Family History No Family [...] CREATED AUTHOR 12/17/2018 [facility] DATE CREATED AUTHOR AUTHOR'S ORGANIZ ATION 07/31/2021 [facility] DATE CREATED AUTHOR AUTHOR'S ORGANIZ ATION 07/31/2021 [facility] DATE CREATED AUTHOR AUTHOR'S ORGANIZ ATION 12/24/2021 [facility] DATE CREATED AUTHOR AUTHOR'S ORGANIZ ATION 12/26/2021 [facility] DATE CREATED AUTHOR AUTHOR'S ORGANIZ ATION 09/22/2022 [facility] DATE CREATED AUTHOR AUTHOR'S ORGANIZ ATION 10/05/2022 [facility] DATE CREATED AUTHOR AUTHOR'S ORGANIZ ATION 11/30/2023 [facility] Patient Care team informatio n (unrecognized section and content) Personnel Name: TIMO BAR DO Address: Address: [address] [place] [address] REASON FOR VISIT (unrecogniz ed section and content) 6 MONTH FOLLOW UP4 MONTH [facility] LOW UPWellnessLab resultsflu shotankle/foot swellingRefillTCMTHE [facility]IL[facility] HHTBHMedication Garrett FOR RECORDS PERTAINING TO PATIENTS [...] BE BASED ON THE PRIMARY CLINICAL RECORDS. [facility]. provides no warranty or guarantee of the accuracy or completeness of information in this document.
[2023-12-03] MEDS: BUMETANIDE 10 MG in 0.9 % SODIUM CHLORIDE 160 ML 20 MG IV (15:00)
[2023-12-03] MEDS: OXYBUTYNIN CHLORIDE 5 MG TAB XL PO (15:00)
--- NOTE | 2023-12-03 16:49 | RESP.RT ---
Pt found with NC out of nares and SpO2 84%. Placed 3LNC back in nares and SpO2 recovered to 92%
[2023-12-03 17:13] LABS: Troponin I High Sensitivity 50.8 pg/mL (4.0-76.1)
--- NOTE | 2023-12-03 23:32 | PC.NURSE ---
Scant amount of blood noticed on bottom sheet. Small open area to left elbow most likely from rubbing on sheet. Area cleansed and bandage applied.
[2023-12-04] VITALS (13 sets, daily range): BP systolic 113; BP diastolic 73; PULSE 70–82; RESP 16–18; TEMP 36.8; O2SAT 87–96
[2023-12-04] MEDS: FUROSEMIDE 40 MG TABLET PO (05:54)
[2023-12-04 06:53] LABS: Basophils Percent Auto 0.4 % (0.2-2.0); Eosinophils Absolute Auto 0.1 10^3/uL (0.0-0.7); Eosinophils Percent Auto 1.4 % (0.9-7.0); Hematocrit 33.5 % (42.0-54.0); Hemoglobin 10.9 g/dL (14.0-18.0); Immature Granulocytes Abs Auto 0.02 10^3/uL (0.00-0.03); Immature Granulocytes Pct Auto 0.4 % (0.0-0.5); Lymphocytes Absolute Auto 0.9 10^3/uL (1.2-3.8); Lymphocytes Percent Auto 19.2 % (20.5-60.0); Mean Corpuscular HGB Conc 32.5 g/dL (29.9-35.2); Mean Corpuscular Hemoglobin 35.2 pg (25.9-34.0); Mean Corpuscular Volume 108.1 fL (80.0-94.0); Mean Platelet Volume 11.5 fL (9.5-13.5); Monocytes Absolute Auto 0.8 10^3/uL (0.3-0.8); Neutrophils Absolute Auto 3.1 10^3/uL (1.4-6.5); Neutrophils Percent Auto 62.6 % (43.0-75.0); Platelet Count 108 10^3/uL (150-450); Red Cell Distribution Width 14.9 % (11.0-15.0); White Blood Count 4.9 10^3/uL (4.0-11.0)
[2023-12-04 07:06] LABS: Alanine Aminotransferase 23 U/L (16-63); Albumin Globulin Ratio 0.7; Albumin Level 3.1 g/dL (3.4-5.0); Alkaline Phosphatase 114 U/L (46-116); Anion Gap 14.8; Aspartate Amino Transferase 12 U/L (15-37); BUN Creatinine Ratio 31.1; Bilirubin Total 1.8 mg/dL (0.2-1.0); Calcium 9.3 mg/dL (8.5-10.1); Carbon Dioxide 29.8 mmol/L (21.0-32.0); Chloride 101 mmol/L (98-107); Estimated GFR (African America 53 (>=60); Estimated GFR (Non-African Ame 44 (>=60); Globulin 4.3 g/dL; Glucose 96 mg/dL (74-106); Potassium 3.6 mmol/L (3.5-5.1); Sodium 142 mmol/L (136-145); Total Protein 7.4 g/dL (6.4-8.2); Troponin I High Sensitivity 52.8 pg/mL (4.0-76.1)
--- OUTSIDE RECORDS SUMMARY | 2023-12-04 07:44 | XMS_ITS | CCD ---
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) use of aspirin; Translations: [CUSTODIAL CURRENT USE OF ASPIRIN] Onset: 08-16-2022 Episodic [...] Range Facility Office Visiton 04-17-2023 Follow-up visit [id number] Samson Joe 1935 M Date Provider Department Center 04/17/2023 Stephane-JUAN LUIS KYLE [facility] No family history on file Level of Service:87122 [place] OFFICE/OUTPATIENT NEW MODERATE MDM 45-59 MINUTES Reason for Visit and Comments: Establish Care [42] Normal [facility] Ambulatory Visit Summaryon 1 Ambulatory Visit Summary SAMSON JOE :1935 Visit Date:09/21/2022 Ambulatory Visit Instructions Your Diagnosis Urge incontinence History of prostate cancer Tests Performed Urnls Dip Stick Auto w/o Microscopy POC 25319 Your Care Team Attending Physician - MARYBETH [...] if needed Where: [address] [place] [address] [phone] Medications What How Much When Instructions Unchanged oxybutynin (oxybutynin 5 mg ER Tab) 1 Tablets By Mouth Every day Pickup at [facility] Unchanged ascorbic acid (Vitamin C) Every [...] physician if questions or concerns Pharmacy Information [id number]: [address] [place], [place] [id number] [phone] Test Results Urnls Dip Stick Auto w/o Microscopy POC 63747 (09/21/2022) Bilirubin Urine Dipstick - Negative Blood Urine Dipstick - Negative Glucose Urine Dipstick - Negative Ketones Urine Dipstick - Negative Leukocytes Urine Dipstick - Negative Nitrite Urine Dipstick - Negative Protein Urine Dipstick - Negative Specific [place] Urine Dipstick - 1.015 Urine Appearance Urine [...] hematuria History of prostate cancer Hyperlipidemia Hypertension 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 ? Are -Afghan. ? Are obese. ? Have a family [...] during urination (more content not included)... Normal [facility] Ambulatory Visit Summary SAMSON JOE :1935 Visit Date:09/21/2022 Ambulatory Visit Instructions Your Diagnosis Urge incontinence History of prostate cancer Tests Performed Urnls Dip Stick Auto w/o Microscopy POC 76761 Your Care Team Attending Physician - MARYEBTH COOPER PA-C Primary Care Physician - TIMO ABR DO This Is Your Medications List oxybutynin [...] When: Only if needed Where: [address] [place] [address] [phone] Medications What How Much When Instructions Unchanged [...] Urnls Dip Stick Auto w/o Microscopy POC 03228 (09/21/2022) Bilirubin Urine Dipstick - Negative Blood Urine Dipstick - Negative Glucose Urine Dipstick - Negative Ketones Urine Dipstick - Negative Leukocytes Urine Dipstick - Negative Nitrite Urine Dipstick - Negative Protein Urine Dipstick - Negative Specific [place] Urine Dipstick - 1.015 Urine Appearance Urine [...] hematuria History of prostate cancer Hyperlipidemia Hypertension halfway current use of 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 ? Are -Afghan. ? Are obese. ? Have a family [...] upper thi (more content not included)... Normal [facility] Patient Educationon 09-21-20 Patient Education Oncology Prostate [...] Are older than age 65. ? Are -Afghan. ? Are obese. ? Have a family [...] Follow these instructions at home: ? Take huzc-ocg-hkxkiot and prescription medicines only as told by [...] cancer specialis (more content not included)... Normal [facility] Urology Office/Clinic Noteon 09-21-2022 Urology Office/Clinic Note [...] this time. History of Present Illness staff [facility] reviewed and agree. Review of Systems PHQ [...] SHEPARD, MARYBETH Trivedi, URL Only if needed [address] 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 Immunizations Vaccine Date Status Comments SARSCoV2 mRNA(gpeacuzfn-tqcs-s marcy) vac 04/26/2022 Recorded SARS-CoV-2 (COVID-19) mRNA [...] 09/05/2016 Rec (more content not included)... Normal [facility] Comment on above: Result Comment: Elec tronically Signed By: KENNETH SHEPARD, MARYBETH Trivedi\.lisa\Date and Time Signed: 09/21/22 13:18 EDT CBC AUTO DIFFon 09-06-2022 BASO # 0.0 103/ul Normal 0.0-0.1 [facility] Comment on above: Performed By: #### C BC #### [facility] [address] [address] [address] Kirk García Basophils/100 WBC (Bld) 0.5 % Normal 0.2-2.0 [facility] Comment on above: Performed By: #### C BC #### [facility] [address] [place] [address] Dr. Kirk García EO # 0.1 103/ul Normal 0.0-0.7 [facility] Comment on above: Performed By: #### C BC #### [facility] [address] [place] [address] Dr. Kirk García Eosinophils/100 WBC (Bld) 1.2 % Normal 0.9-7.0 [facility] Comment on above: Performed By: #### C BC #### [facility] [address] [place] [address] Dr. Kirk García Erythrocyte distribution width (RBC) [Ratio] 14.2 % Normal 11.0-15.0 [facility] Comment on above: Performed By: #### C BC #### [facility] [address] [place] [address] Dr. Kirk García Hematocrit (Bld) [Volume fraction] 35.6 % Critically low 42.0-54.0 [facility] Comment on above: Performed By: #### C BC #### [facility] [address] [place] [address] Dr. Kirk García Hemoglobin (Bld) [Mass/Vol] 11.7 g/dL Critically low 14.0-18.0 [facility] Comment on above: Performed By: #### C BC #### [facility] [address] [place] [address] Dr. Kirk García IG # 0.04 10e3/ul Critically high 0.00-0.03 [facility] [place] [facility] Comment on above: Performed By: #### C BC #### [facility] [address] [place] [address] Dr. Kirk García IG % 0.6 % Critically high 0.0-0.5 [facility] Comment on above: Performed By: #### C BC #### [facility] [address] [address] [address] Kirk García LYMPH # 1.7 103/ul Normal 1.2-3.8 [facility] Comment on above: Performed By: #### C BC #### [facility] [address] [place] [address] Dr. Kirk García Lymphocytes/100 WBC (Bld) 25.7 % Normal 20.5-60.0 [facility] Comment on above: Performed By: #### C BC #### [facility] [address] [place] [address] Dr. Kirk García MANUAL DIFF REQ NO Normal [facility] Comment on above: Performed By: #### C BC #### [facility] [address] [place] [address] Dr. Kirk García MCH (RBC) [Entitic mass] 34.1 pg Critically high 25.9-34.0 [facility] Comment on above: Performed By: #### C BC #### [facility] [address] [place] [address] Dr. Kirk García MCHC (RBC) [Mass/Vol] 32.9 g/dL Normal 29.9-35.2 [facility] Comment on above: Performed By: #### C BC #### [facility] [address] [place] [address] Dr. Kirk García MCV (RBC) [Entitic vol] 103.8 fL Critically high 80.0-94.0 [facility] Comment on above: Performed By: #### C BC #### [facility] [address] [place] [address] Dr. Kirk García MONO # 1.1 103/ul Critically high 0.3-0.8 [facility] Comment on above: Performed By: #### C BC #### [facility] [address] [place] [address] Dr. Kirk García Monocytes/100 WBC (Bld) 17.7 % Critically high 1.7-12.0 [facility] Comment on above: Performed By: #### C BC #### [facility] [address] [place] [address] Dr. Kirk García NEUT # 3.5 103/ul Normal 1.4-6.5 [facility] Comment on above: Performed By: #### C BC #### [facility] [address] [place] [address] Dr. Kirk García Neutrophils/100 WBC (Bld) 54.3 % Normal 43.0-75.0 [facility] Comment on above: Performed By: #### C BC #### [facility] [address] [place] [address] Dr. Kirk García Platelet mean volume (Bld) [Entitic vol] 10.1 fL Normal 9.5-13.5 [facility] Comment on above: Performed By: #### C BC #### [facility] [address] [place] [address] Dr. Kirk García PLT 153 103/ul Normal 150-450 [facility] Comment on above: Performed By: #### C BC #### [facility] [address] [place] [address] Dr. Kirk García RBC 3.43 106/ul Critically low 4.70-6.10 [facility] Comment on above: Performed By: #### C BC #### [facility] [address] [place] [address] Dr. Kirk García WBC 6.5 103/ul Normal 4.0-11.0 [facility] Comment on above: Performed By: #### C BC #### [facility] [address] [place] [address] Dr. Kirk García PROF CHEM 8 (BAS METB)on Anion gap [Moles/Vol] 10.8 mmol/L Normal [facility] Comment on above: Performed By: #### B MP #### [facility] [address] [place] [address] Dr. Kirk García Calcium [Mass/Vol] 9.2 mg/dL Normal 8.5-10.1 [facility] Comment on above: Performed By: #### B MP #### [facility] [address] [place] [address] Dr. Kirk García Chloride [Moles/Vol] 101 mmol/L Normal 98-107 [facility] Comment on above: Performed By: #### B MP #### [facility] [address] [address] [address] Kirk García CO2 [Moles/Vol] 30.9 mmol/L Normal 21.0-32.0 [facility] Comment on above: Performed By: #### B MP #### [facility] [address] [address] [address] Kirk García Creatinine [Mass/Vol] 1.54 mg/dL Critically high 0.70-1.30 [facility] Comment on above: Performed By: #### B MP #### [facility] [address] [address] [address] Kirk García EGFR-AF KITTITIAN 52 mL/min/1.73m2 Critically low >=60 [facility] Comment on above: Performed By: #### B MP #### [facility] [address] [address] [address] Kirk García EGFR-NON AF KITTITIAN 43 mL/min/1.73m2 Critically low >=60 [facility] Comment on above: Performed By: #### B MP #### [facility] [address] [address] [address] Kirk García Glucose [Mass/Vol] 106 mg/dL Normal 74-106 [facility] Comment on above: Performed By: #### B MP #### [facility] [address] [address] [address] Kirk García Potassium [Moles/Vol] 4.7 mmol/L Normal 3.5-5.1 [facility] Comment on above: Performed By: #### B MP #### [facility] [address] [address] [address] Kirk García Sodium [Moles/Vol] 138 mmol/L Normal 136-145 [facility] Comment on above: Performed By: #### B MP #### [facility] [address] [address] [address] Kirk García Urea nitrogen [Mass/Vol] 28.0 mg/dL Critically high 7.0-18.0 [facility] Comment on above: Performed By: #### B MP #### [facility] [address] [place] [address] Dr. Kirk García Urea nitrogen/Creatinin e [Mass ratio] 18.2 mg/mg Normal [facility] Comment on above: Performed By: #### B MP #### [facility] [address] [place] [address] Dr. Kirk García CBC W MANUAL DIFFon 08-15-20 22 ATYPICAL LYMPH # 1.62 103/ul [facility] Comment on above: Performed By: #### U MICRO, ERUR #### [facility] [address] [place] [address] Dr. Kirk García ATYPICAL LYMPH % 12 % Normal [facility] Comment on above: Performed By: #### U MICRO, ERUR #### [facility] [address] [place] [address] Dr. Kirk García BAND # 0.1 103/ul Normal 0.0-0.3 [facility] Comment on above: Performed By: #### U MICRO, ERUR #### [facility] [address] [place] [address] Dr. Kirk García BAND % 1 % Normal 0-5 [facility] Comment on above: Performed By: #### U MICRO, ERUR #### [facility] [address] [place] [address] Dr. Kirk García BASOM # 0.14 103/ul Critically high 0.00-0.10 [facility] Comment on above: Performed By: #### U MICRO, ERUR #### [facility] [address] [place] [address] Dr. Kirk García BASOM % 1.0 % Normal 0.2-2.0 [facility] Comment on above: Performed By: #### U MICRO, ERUR #### [facility] [address] [place] [address] Dr. Kirk García BLAST # Normal [facility] Comment on above: Performed By: #### U MICRO, ERUR #### [facility] [address] [address] [address] Kirk García BLAST % Normal [facility] Comment on above: Performed By: #### U MICRO, ERUR #### [facility] [address] [address] [address] Kirk García CORRECTED WBC Normal 4.0-11.0 [facility] Comment on above: Performed By: #### U MICRO, ERUR #### [facility] [address] [address] [address] Kirk García EOS # 0.14 103/ul Normal 0.00-0.70 [facility] Comment on above: Performed By: #### U MICRO, ERUR #### [facility] [address] [place] [address] Dr. Kirk García EOS% 1.0 % Normal 0.9-7.0 [facility] Comment on above: Performed By: #### U MICRO, ERUR #### [facility] [address] [address] [address] Kirk García HCT 40.7 % Critically low 42.0-54.[address] [facility] Comment on above: Performed By: #### U MICRO, ERUR #### [facility] [address] [address] [address] Kirk García HGB 13.4 g/dl Critically low 14.0-18.0 [facility] Comment on above: Performed By: #### U MICRO, ERUR #### [facility] [address] [address] [address] Kirk García LYMPHM # 0.54 103/ul Critically low 1.20-3.80 [facility] Comment on above: Performed By: #### U MICRO, ERUR #### [facility] [address] [address] [address] Kirk García LYMPHM% 4.0 % Critically low 20.5-60.[address] [facility] Comment on above: Performed By: #### U MICRO, ERUR #### [facility] [address] [address] [address] Kirk García MCH 34.2 pg Critically high 25.9-34.0 [facility] Comment on above: Performed By: #### U MICRO, ERUR #### [facility] [address] [address] [address] Kirk García MCHC 32.9 g/dl Normal 29.9-35.2 [facility] Comment on above: Performed By: #### U MICRO, ERUR #### [facility] [address] [address] [address] Kirk García MCV 103.8 fL Critically high 80.0-94.0 [facility] Comment on above: Performed By: #### U MICRO, ERUR #### [facility] [address] [address] [address] Kirk García METAMYELOCYTE # Normal [facility] Comment on above: Performed By: #### U MICRO, ERUR #### [facility] [address] [address] [address] Kirk García METAMYELOCYTE % Normal [facility] Comment on above: Performed By: #### U MICRO, ERUR #### [facility] [address] [address] [address] Kirk García MONOM# 1.08 103/ul Critically high 0.30-0.80 [facility] Comment on above: Performed By: #### U MICRO, ERUR #### [facility] [address] [address] [address] Kirk García MONOM% 8.0 % Normal 1.7-12.0 [facility] Comment on above: Performed By: #### U MICRO, ERUR #### [facility] [address] [address] [address] Kirk García MPV 10.7 fL Normal 9.5-13.5 [facility] Comment on above: Performed By: #### U MICRO, ERUR #### [facility] [address] [address] [address] Kirk García MYELOCYTE # Normal [facility] Comment on above: Performed By: #### U MICRO, ERUR #### [facility] [address] [address] [address] Kirk García MYELOCYTE % Normal [facility] Comment on above: Performed By: #### U MICRO, ERUR #### [facility] [address] [address] [address] Kirk García NRBC Normal [facility] Comment on above: Performed By: #### U MICRO, ERUR #### [facility] [address] [address] [address] Kirk García PLT 140 103/ul Critically low 150-[address] [facility] Comment on above: Performed By: #### U MICRO, ERUR #### [facility] [address] [address] [address] Kirk García RBC 3.92 106/ul Critically low 4.70-6.10 [facility] Comment on above: Performed By: #### U MICRO, ERUR #### [facility] [address] [address] [address] Kirk García RDW 14.0 % Normal 11.0-15.0 [facility] Comment on above: Performed By: #### U MICRO, ERUR #### [facility] [address] [address] [address] Kirk García SEG # 9.86 103/ul Critically high 1.40-6.50 [facility] Comment on above: Performed By: #### U MICRO, ERUR #### [facility] [address] [address] [address] Kirk García SEG % 73.0 % Normal 43.0-75.0 [facility] Comment on above: Performed By: #### U MICRO, ERUR #### [facility] [address] [address] [address] Kirk García TOXIC GRANULATION 2+ [facility] Comment on above: Performed By: #### U MICRO, ERUR #### [facility] [address] [address] [address] Kirk García WBC 13.5 103/ul Critically high 4.0-11.0 [facility] Comment on above: Performed By: #### U MICRO, ERUR #### [facility] [address] [address] [address] Kirk García PROF 14(COMP METB)on 022 Albumin [Mass/Vol] 3.0 g/dL Critically low 3.4-5.0 [facility] Comment on above: Performed By: #### C MP #### [facility] [address] [address] [address] Kirk García Albumin/Globulin [Mass ratio] 0.8 {ratio} Normal [facility] Comment on above: Performed By: #### C MP #### [facility] [address] [place] [address] Dr. Kirk García ALP [Catalytic activity/Vol] 81 U/L Normal 46-116 [facility] Comment on above: Performed By: #### C MP #### [facility] [address] [place] [address] Dr. Kirk García ALT [Catalytic activity/Vol] 50 U/L Normal 16-63 [facility] Comment on above: Performed By: #### C MP #### [facility] [address] [place] [address] Dr. Kirk García Anion gap [Moles/Vol] 8.2 mmol/L Normal [facility] Comment on above: Performed By: #### C MP #### [facility] [address] [place] [address] Dr. Kirk García AST [Catalytic activity/Vol] 14 U/L Critically low 15-37 [facility] Comment on above: Performed By: #### C MP #### [facility] [address] [address] [address] Kirk García Bilirubin [Mass/Vol] 0.9 mg/dL Normal 0.2-1.0 [facility] Comment on above: Performed By: #### C MP #### [facility] [address] [place] [address] Dr. Kirk García Calcium [Mass/Vol] 9.3 mg/dL Normal 8.5-10.1 [facility] Comment on above: Performed By: #### C MP #### [facility] [address] [address] [address] Kirk García Chloride [Moles/Vol] 100 mmol/L Normal 98-107 [facility] Comment on above: Performed By: #### C MP #### [facility] [address] [address] [address] Kirk García CO2 [Moles/Vol] 33.1 mmol/L Critically high 21.0-32.0 [facility] Comment on above: Performed By: #### C MP #### [facility] [address] [address] [address] Kirk García Creatinine [Mass/Vol] 1.56 mg/dL Critically high 0.70-1.30 [facility] Comment on above: Performed By: #### C MP #### [facility] [address] [address] [address] Kirk García EGFR-AF KITTITIAN 51 mL/min/1.73m2 Critically low >=60 [facility] Comment on above: Performed By: #### C MP #### [facility] [address] [address] [address] Kirk García EGFR-NON AF KITTITIAN 42 mL/min/1.73m2 Critically low >=60 [facility] Comment on above: Performed By: #### C MP #### [facility] [address] [address] [address] Kirk García Globulin (S) [Mass/Vol] 3.7 g/dL Normal [facility] Comment on above: Performed By: #### C MP #### [facility] [address] [address] [address] Kirk García Glucose [Mass/Vol] 107 mg/dL Critically high 74-106 [facility] Comment on above: Performed By: #### C MP #### [facility] [address] [address] [address] Kirk García Potassium [Moles/Vol] 5.3 mmol/L Critically high 3.5-5.1 [facility] Comment on above: Performed By: #### C MP #### [facility] [address] [address] [address] Kirk García Protein [Mass/Vol] 6.7 g/dL Normal 6.4-8.2 [facility] Comment on above: Performed By: #### C MP #### [facility] [address] [address] [address] Kirk García Sodium [Moles/Vol] 136 mmol/L Normal 136-145 [facility] Comment on above: Performed By: #### C MP #### [facility] [address] [address] [address] Kirk García Urea nitrogen [Mass/Vol] 50.0 mg/dL Critically high 7.0-18.0 [facility] Comment on above: Performed By: #### C MP #### [facility] [address] [address] [address] Kirk García Urea nitrogen/Creatinin e [Mass ratio] 32.1 mg/mg Normal [facility] Comment on above: Performed By: #### C MP #### [facility] [address] [address] [address] Kirk García CULTURE URINEon 08-14-2022 CULTURE URINE Culture Observations : NO GROWTH. Normal [facility] Comment on above: Performed By: #### U MICRO, ERUR #### [facility] [address] [address] [address] Kirk García ER URINE PROFILEon Bilirubin Ql (U) Negative Normal NEGATIVE [facility] Comment on above: Performed By: #### U MICRO, ERUR #### [facility] [address] [address] [address] Kirk García Clarity (U) CLEAR Normal CLEAR [facility] Comment on above: Performed By: #### U MICRO, ERUR #### [facility] [address] [address] [address] Kirk García Color (U) ORANGE Abnormal YELLOW [facility] Comment on above: Performed By: #### U MICRO, ERUR #### [facility] [address] [address] [address] Kirk GRUBBS A micrscopic examination will be performed if indicated. Normal [facility] Comment on above: Performed By: #### U MICRO, ERUR #### [facility] [address] [address] [address] Kirk García Glucose Ql (U) Negative Normal NEGATIVE [facility] Comment on above: Performed By: #### U MICRO, ERUR #### [facility] [address] [address] [address] Kirk García Hemoglobin Ql (U) LARGE Abnormal NEGATIVE [facility] Comment on above: Performed By: #### U MICRO, ERUR #### [facility] [address] [address] [address] Kirk García Ketones Ql (U) TRACE Abnormal NEGATIVE [facility] Comment on above: Performed By: #### U MICRO, ERUR #### [facility] [address] [address] [address] Kirk García LEUKOCYTES MODERATE Abnormal NEGATIVE [facility] Comment on above: Performed By: #### U MICRO, ERUR #### [facility] [address] [address] [address] Kirk García Nitrite Ql (U) Negative Normal NEGATIVE [facility] Comment on above: Performed By: #### U MICRO, ERUR #### [facility] [address] [address] [address] Kirk García pH (U) 5.5 [pH] Normal 5-9 [facility] Comment on above: Performed By: #### U MICRO, ERUR #### [facility] [address] [address] [address] Kirk García Protein (U) [Mass/Vol] 100 mg/dL Abnormal NEGATIVE/ TRACE [facility] Comment on above: Performed By: #### U MICRO, ERUR #### [facility] [address] [place] [address] Dr. Kirk García SPEC GRAVITY 1.025 Normal 1.005-<=1.025 [facility] Comment on above: Performed By: #### U MICRO, ERUR #### [facility] [address] [place] [address] Dr. Kirk García UR MICRO IND INDICATED Normal [facility] Comment on above: Performed By: #### U MICRO, ERUR #### [facility] [address] [place] [address] Dr. Kirk García Urobilinogen Qn (U) 1.0 {Ryan'U}/dL Normal 0.2 - 1.0 [facility] Comment on above: Performed By: #### U MICRO, ERUR #### [facility] [address] [place] [address] Dr. Kirk García URINE MICROSCOPIC ONLYon BACTERIA SMALL Abnormal NONE SEEN [facility] Comment on above: Performed By: #### U MICRO, ERUR #### [facility] [address] [place] [address] Dr. Kirk García Bacteria identified Cx Nom (U) INDICATED Normal [facility] Comment on above: Performed By: #### U MICRO, ERUR #### [facility] [address] [place] [address] Dr. Kirk García CAST NONE SEEN Normal NONE SEEN [facility] Comment on above: Performed By: #### U MICRO, ERUR #### [facility] [address] [place] [address] Dr. Kirk García Crystals LM Nom (Urine sed) NONE SEEN Normal NONE SEEN [facility] Comment on above: Performed By: #### U MICRO, ERUR #### [facility] [address] [place] [address] Dr. Kirk García Epithelial cells LM Ql (Urine sed) RARE Normal NONE SEEN /RARE [facility] Comment on above: Performed By: #### U MICRO, ERUR #### [facility] [address] [place] [address] Dr. Kirk García MUCOUS NONE SEEN Normal NONE SEEN [facility] Comment on above: Performed By: #### U MICRO, ERUR #### [facility] [address] [place] [address] Dr. Kirk García RBC 75-100 Abnormal 0-2 [facility] Comment on above: Performed By: #### U MICRO, ERUR #### [facility] [address] [address] [address] Kirk García WBC 50-75 Abnormal NONE SEEN [facility] Comment on above: Performed By: #### U MICRO, ERUR #### [facility] [address] [address] [address] Kirk García XR KNEE WILBER 4V [...] ANA DALAL Date: 2022-08-14 21:09 Normal [facility] CBC W MANUAL DIFFon 08-04-20 22 ATYPICAL LYMPH # Normal [facility] Comment on above: Performed By: #### C CHRISTOPHER #### [facility] [address] [place] [address] Dr. Kirk García ATYPICAL LYMPH % Normal [facility] Comment on above: Performed By: #### C CHRISTOPHER #### [facility] [address] [address] [address] Kirk García BAND # 0.0 103/ul Normal 0.0-0.3 [facility] Comment on above: Performed By: #### C CHRISTOPHER #### [facility] [address] [address] [address] Kirk García BAND % 1 % Normal 0-5 [facility] Comment on above: Performed By: #### C CHRISTOPHER #### [facility] [address] [place] [address] Dr. Kirk García BASOM # 0.00 103/ul Normal 0.00-0.10 [facility] Comment on above: Performed By: #### C CHRISTOPHER #### [facility] [address] [address] [address] Kirk García BASOM % 0.0 % Critically low 0.2-2.[address] [facility] Comment on above: Performed By: #### C BCMAN #### [facility] [address] [address] [address] Kirk García BLAST # Normal [facility] Comment on above: Performed By: #### C BCMAN #### [facility] [address] [address] [address] Kirk García BLAST % Normal [facility] Comment on above: Performed By: #### C BCLEILA #### [facility] [address] [place] [address] Dr. Kirk García CORRECTED WBC Normal 4.0-11.0 [facility] Comment on above: Performed By: #### C BCLEILA #### [facility] [address] [place] [address] Dr. Kirk García EOS # 0.00 103/ul Normal 0.00-0.70 [facility] Comment on above: Performed By: #### C BCLEILA #### [facility] [address] [place] [address] Dr. Kirk García EOS% 0.0 % Critically low 0.9-7.[address] [facility] Comment on above: Performed By: #### C BCLEILA #### [facility] [address] [address] [address] Kirk García HCT 31.0 % Critically low 42.0-54.[address] [facility] Comment on above: Performed By: #### C BCMAN #### [facility] [address] [place] [address] Dr. Kirk García HGB 10.5 g/dl Critically low 14.0-18.[address] [facility] Comment on above: Performed By: #### C BCMAN #### [facility] [address] [place] [address] Dr. Kirk García LYMPHM # 0.31 103/ul Critically low 1.20-3.80 [facility] Comment on above: Performed By: #### C CHRISTOPHER #### [facility] [address] [address] [address] Kirk García LYMPHM% 11.0 % Critically low 20.5-60.0 [facility] Comment on above: Performed By: #### C CHRISTOPHER #### [facility] [address] [address] [address] Kirk García MCH 34.2 pg Critically high 25.9-34.0 [facility] Comment on above: Performed By: #### C CHRISTOPHER #### [facility] [address] [address] [address] Kirk García MCHC 33.9 g/dl Normal 29.9-35.2 [facility] Comment on above: Performed By: #### C CHRISTOPHER #### [facility] [address] [place] [address] Dr. Kirk García MCV 101.0 fL Critically high 80.0-94.0 [facility] Comment on above: Performed By: #### C CHRISTOPHER #### [facility] [address] [address] [address] Kirk García METAMYELOCYTE # 0.1 103/ul Normal [facility] Comment on above: Performed By: #### C CHRISTOPHER #### [facility] [address] [place] [address] Dr. Kirk García METAMYELOCYTE % 2 % Normal [facility] Comment on above: Performed By: #### C CHRISTOPHER #### [facility] [address] [address] [address] Kirk García MONOM# 0.03 103/ul Critically low 0.30-0.80 [facility] Comment on above: Performed By: #### C CHRISTOPHER #### [facility] [address] [address] [address] Kirk García MONOM% 1.0 % Critically low 1.7-12.0 [facility] Comment on above: Performed By: #### C CHRISTOPHER #### [facility] [address] [address] [address] Kirk García MPV 10.7 fL Normal 9.5-13.5 [facility] Comment on above: Performed By: #### C CHRISTOPHER #### [facility] [address] [address] [address] Kirk García MYELOCYTE # 0.0 103/ul Normal [facility] Comment on above: Performed By: #### C CHRISTOPHER #### [facility] [address] [address] [address] Kirk García MYELOCYTE % 1 % Normal [facility] Comment on above: Performed By: #### C CHRISTOPHER #### [facility] [address] [address] [address] Kirk García NRBC Normal [facility] Comment on above: Performed By: #### C CHRISTOPHER #### [facility] [address] [place] [address] Dr. Kirk García PLT 84 103/ul Critically low 150-[address] [facility] Comment on above: Performed By: #### C CHRISTOPHER #### [facility] [address] [place] [address] Dr. Kirk García RBC 3.07 106/ul Critically low 4.70-6.10 [facility] Comment on above: Performed By: #### C CHRISTOPHER #### [facility] [address] [place] [address] Dr. Kirk García RDW 13.3 % Normal 11.0-15.0 [facility] Comment on above: Performed By: #### C CHRISTOPHER #### [facility] [address] [place] [address] Dr. Kirk García SEG # 2.35 103/ul Normal 1.40-6.50 [facility] Comment on above: Performed By: #### C CHRISTOPHER #### [facility] [address] [place] [address] Dr. Kirk García SEG % 84.0 % Critically high 43.0-75.0 [facility] Comment on above: Performed By: #### C CHRISTOPHER #### [facility] [address] [address] [address] Kirk García WBC 2.8 103/ul Critically low 4.0-11.[address] [facility] Comment on above: Performed By: #### C BCMAN #### [facility] [address] [address] [address] Kirk García PROF CHEM 8 (BAS METB)on Anion gap [Moles/Vol] 9.9 mmol/L Normal [facility] Comment on above: Performed By: #### U MICRO, ERUR #### [facility] [address] [address] [address] Kirk García Calcium [Mass/Vol] 7.4 mg/dL Critically low 8.5-10.1 [facility] Comment on above: Performed By: #### U MICRO, ERUR #### [facility] [address] [place] [address] Dr. Kirk García Chloride [Moles/Vol] 100 mmol/L Normal 98-107 [facility] Comment on above: Performed By: #### U MICRO, ERUR #### [facility] [address] [address] [address] Kirk García CO2 [Moles/Vol] 23.8 mmol/L Normal 21.0-32.0 [facility] Comment on above: Performed By: #### U MICRO, ERUR #### [facility] [address] [address] [address] Kirk García Creatinine [Mass/Vol] 1.43 mg/dL Critically high 0.70-1.30 [facility] Comment on above: Performed By: #### U MICRO, ERUR #### [facility] [address] [address] [address] Kirk García EGFR-AF KITTITIAN 57 mL/min/1.73m2 Critically low >=60 [facility] Comment on above: Performed By: #### U MICRO, ERUR #### [facility] [address] [address] [address] Kirk García EGFR-NON AF KITTITIAN 47 mL/min/1.73m2 Critically low >=60 [facility] Comment on above: Performed By: #### U MICRO, ERUR #### [facility] [address] [address] [address] Kirk García Glucose [Mass/Vol] 148 mg/dL Critically high 74-106 [facility] Comment on above: Performed By: #### U MICRO, ERUR #### [facility] [address] [place] [address] Dr. Kirk García Potassium [Moles/Vol] 4.7 mmol/L Normal 3.5-5.1 [facility] Comment on above: Performed By: #### U MICRO, ERUR #### [facility] [address] [place] [address] Dr. Kirk García Sodium [Moles/Vol] 129 mmol/L Critically low 136-145 [facility] Comment on above: Performed By: #### U MICRO, ERUR #### [facility] [address] [place] [address] Dr. Kirk García Urea nitrogen [Mass/Vol] 42.0 mg/dL Critically high 7.0-18.0 [facility] Comment on above: Performed By: #### U MICRO, ERUR #### [facility] [address] [place] [address] Dr. Kirk García Urea nitrogen/Creatinin e [Mass ratio] 29.4 mg/mg Normal [facility] Comment on above: Performed By: #### U MICRO, ERUR #### [facility] [address] [place] [address] Dr. Kirk García CBC AUTO DIFFon 08-03-2022 BASO # 0.0 103/ul Normal 0.0-0.1 [facility] Comment on above: Performed By: #### C BC #### [facility] [address] [place] [address] Dr. iKrk García Basophils/100 WBC (Bld) 0.0 % Critically low 0.2-2.0 [facility] Comment on above: Performed By: #### C BC #### [facility] [address] [place] [address] Dr. Kirk García EO # 0.0 103/ul Normal 0.0-0.7 [facility] Comment on above: Performed By: #### C BC #### [facility] [address] [place] [address] Dr. Kirk García Eosinophils/100 WBC (Bld) 0.2 % Critically low 0.9-7.0 [facility] Comment on above: Performed By: #### C BC #### [facility] [address] [place] [address] Dr. Kirk García Erythrocyte distribution width (RBC) [Ratio] 13.7 % Normal 11.0-15.0 [facility] Comment on above: Performed By: #### C BC #### [facility] [address] [place] [address] Dr. Kirk García Hematocrit (Bld) [Volume fraction] 34.3 % Critically low 42.0-54.0 [facility] Comment on above: Performed By: #### C BC #### [facility] [address] [place] [address] Dr. Kirk García Hemoglobin (Bld) [Mass/Vol] 11.8 g/dL Critically low 14.0-18.0 [facility] Comment on above: Performed By: #### C BC #### [facility] [address] [place] [address] Dr. Kirk García IG # 0.02 10e3/ul Normal 0.00-0.03 [facility] Comment on above: Performed By: #### C BC #### [facility] [address] [place] [address] Dr. Kirk García IG % 0.4 % Normal 0.0-0.5 [facility] Comment on above: Performed By: #### C BC #### [facility] [address] [place] [address] Dr. Kirk García LYMPH # 0.9 103/ul Critically low 1.2-3.8 [facility] Comment on above: Performed By: #### C BC #### [facility] [address] [place] [address] Dr. Kirk García Lymphocytes/100 WBC (Bld) 16.5 % Critically low 20.5-60.0 [facility] Comment on above: Performed By: #### C BC #### [facility] [address] [place] [address] Dr. Kirk García MANUAL DIFF REQ NO Normal [facility] Comment on above: Performed By: #### C BC #### [facility] [address] [place] [address] Dr. Kirk García MCH (RBC) [Entitic mass] 34.4 pg Critically high 25.9-34.0 [facility] Comment on above: Performed By: #### C BC #### [facility] [address] [place] [address] Dr. Kirk García MCHC (RBC) [Mass/Vol] 34.4 g/dL Normal 29.9-35.2 [facility] Comment on above: Performed By: #### C BC #### [facility] [address] [place] [address] Dr. Kirk García MCV (RBC) [Entitic vol] 100.0 fL Critically high 80.0-94.0 [facility] Comment on above: Performed By: #### C BC #### [facility] [address] [place] [address] Dr. Kirk García MONO # 1.2 103/ul Critically high 0.3-0.8 [facility] Comment on above: Performed By: #### C BC #### [facility] [address] [place] [address] Dr. Kirk García Monocytes/100 WBC (Bld) 22.3 % Critically high 1.7-12.0 [facility] Comment on above: Performed By: #### C BC #### [facility] [address] [place] [address] Dr. Kirk García NEUT # 3.4 103/ul Normal 1.4-6.5 [facility] Comment on above: Performed By: #### C BC #### [facility] [address] [place] [address] Dr. Kirk García Neutrophils/100 WBC (Bld) 60.6 % Normal 43.0-75.0 [facility] Comment on above: Performed By: #### C BC #### [facility] [address] [place] [address] Dr. Kirk García Platelet mean volume (Bld) [Entitic vol] 11.6 fL Normal 9.5-13.5 [facility] Comment on above: Performed By: #### C BC #### [facility] [address] [place] [address] Dr. Kirk García PLT 99 103/ul Critically low 150-[address] [facility] Comment on above: Performed By: #### C BC #### [facility] [address] [place] [address] Dr. Kirk García RBC 3.43 106/ul Critically low 4.70-6.10 [facility] Comment on above: Performed By: #### C BC #### [facility] [address] [place] [address] Dr. Kirk García WBC 5.5 103/ul Normal 4.0-11.0 [facility] Comment on above: Performed By: #### C BC #### [facility] [address] [place] [address] Dr. Kirk García CULTURE BLOODon 08-03-2022 Microscopic examination of blood, culture Culture Observations: NO GROWTH AT 5 DAYS. Normal [facility] Comment on above: Performed By: #### U MICRO, ERUR #### [facility] [address] [place] [address] Dr. Kirk García Microscopic examination of blood, culture Culture Observations: NO GROWTH AT 5 DAYS. Normal [facility] Comment on above: Performed By: #### U MICRO, ERUR #### [facility] [address] [place] [address] Dr. Kirk García Covid-19 PCR (CVDTB)on SARS-CoV-2 (COVID-19) RNA SANAZ+probe Ql (Unsp spec) Detected Critically abnormal NOT DETECTED [facility] Comment on above: Result Comment: This test is not yet approved or cleared by the [place] FDA. When there are no FDA-approved or cleared tests available, and other criteria are met, FDA can make tests available under an emergency access mechanism called an Emergency Use Authorization (EUA). The EUA for this test is supported by the [place] of Health and Human Service's declaration that [...] used). Performed By: #### C VDTBH #### [facility] [address] [place] [address] Dr. Kirk García GROUP A STREP CULTUREon S. pyogenes Ag Ql (Unsp spec) Culture Observations: NEGATIVE FOR GROUP A STREPTOCOCCUS. Normal [facility] Comment on above: Performed By: #### U MICRO, ERUR #### [facility] [address] [place] [address] Dr. Kirk García PROF 14(COMP METB)on 022 Albumin [Mass/Vol] 3.0 g/dL Critically low 3.4-5.0 Th e [facility] Comment on above: Performed By: #### C MP #### [facility] [address] [place] [address] Dr. Kirk García Albumin/Globulin [Mass ratio] 0.7 {ratio} Normal [facility] Comment on above: Performed By: #### C MP #### [facility] [address] [place] [address] Dr. Kirk García ALP [Catalytic activity/Vol] 76 U/L Normal 46-116 [facility] Comment on above: Performed By: #### C MP #### [facility] [address] [place] [address] Dr. Kirk García ALT [Catalytic activity/Vol] 27 U/L Normal 16-63 [facility] Comment on above: Performed By: #### C MP #### [facility] [address] [place] [address] Dr. Kirk García Anion gap [Moles/Vol] 8.9 mmol/L Normal [facility] Comment on above: Performed By: #### C MP #### [facility] [address] [place] [address] Dr. Kirk García AST [Catalytic activity/Vol] 17 U/L Normal 15-37 [facility] Comment on above: Performed By: #### C MP #### [facility] [address] [address] [address] Kirk García Bilirubin [Mass/Vol] 1.3 mg/dL Critically high 0.2-1.0 [facility] Comment on above: Performed By: #### C MP #### [facility] [address] [place] [address] Dr. Kirk García Calcium [Mass/Vol] 8.1 mg/dL Critically low 8.5-10.1 [facility] Comment on above: Performed By: #### C MP #### [facility] [address] [place] [address] Dr. Kirk García Chloride [Moles/Vol] 94 mmol/L Critically low 98-107 [facility] Comment on above: Performed By: #### C MP #### [facility] [address] [place] [address] Dr. Kirk García CO2 [Moles/Vol] 27.5 mmol/L Normal 21.0-32.0 [facility] Comment on above: Performed By: #### C MP #### [facility] [address] [place] [address] Dr. Kirk García Creatinine [Mass/Vol] 1.65 mg/dL Critically high 0.70-1.30 [facility] Comment on above: Performed By: #### C MP #### [facility] [address] [place] [address] Dr. Kirk García EGFR-AF KITTITIAN 48 mL/min/1.73m2 Critically low >=60 [facility] Comment on above: Performed By: #### C MP #### [facility] [address] [place] [address] Dr. Kirk García EGFR-NON AF KITTITIAN 40 mL/min/1.73m2 Critically low >=60 [facility] Comment on above: Performed By: #### C MP #### [facility] [address] [address] [address] Kirk García Globulin (S) [Mass/Vol] 4.5 g/dL Normal [facility] Comment on above: Performed By: #### C MP #### [facility] [address] [address] [address] Kirk García Glucose [Mass/Vol] 118 mg/dL Critically high 74-106 T [facility] Comment on above: Performed By: #### C MP #### [facility] [address] [address] [address] Kirk García Potassium [Moles/Vol] 4.4 mmol/L Normal 3.5-5.1 [facility] Comment on above: Performed By: #### C MP #### [facility] [address] [address] [address] Kirk García Protein [Mass/Vol] 7.5 g/dL Normal 6.4-8.2 [facility] Comment on above: Performed By: #### C MP #### [facility] [address] [place] [address] Dr. Kirk García Sodium [Moles/Vol] 126 mmol/L Critically low 136-145 Th [facility] Comment on above: Performed By: #### C MP #### [facility] [address] [address] [address] Kirk García Urea nitrogen [Mass/Vol] 36.0 mg/dL Critically high 7.0-18.0 [facility] Comment on above: Performed By: #### C MP #### [facility] [address] [address] [address] Kirk García Urea nitrogen/Creatinin e [Mass ratio] 21.8 mg/mg Normal [facility] Comment on above: Performed By: #### C MP #### [facility] [address] [address] [address] Kirk García STREPT SCREENon 08-03-2022 STREP SCREEN A Negative Normal NEGATIVE [facility] Comment on above: Performed By: #### U MICRO, ERUR #### [facility] [address] [address] [address] Kirk García XR CHEST 1 Von [...] MILAGROS REEDER Date: 2022-08-03 12:55 Normal [facility] CBC AUTO DIFFon 07-08-2022 BASO # 0.0 103/ul Normal 0.0-0.1 [facility] Comment on above: Performed By: #### C BC #### [facility] [address] [address] [address] Kirk García Basophils/100 WBC (Bld) 0.5 % Normal 0.2-2.0 [facility] Comment on above: Performed By: #### C BC #### [facility] [address] [address] [address] Kirk García EO # 0.1 103/ul Normal 0.0-0.7 [facility] Comment on above: Performed By: #### C BC #### [facility] [id number] Kirk García Eosinophils/100 WBC (Bld) 1.4 % Normal 0.9-7.0 [facility] Comment on above: Performed By: #### C BC #### [facility] [address] [address] [address] Kirk García Erythrocyte distribution width (RBC) [Ratio] 13.4 % Normal 11.0-15.0 [facility] Comment on above: Performed By: #### C BC #### [facility] [address] [place] [address] Dr. Kirk García Hematocrit (Bld) [Volume fraction] 39.6 % Critically low 42.0-54.0 [facility] Comment on above: Performed By: #### C BC #### [facility] [address] [place] [address] Dr. Kirk García Hemoglobin (Bld) [Mass/Vol] 13.2 g/dL Critically low 14.0-18.0 [facility] Comment on above: Performed By: #### C BC #### [facility] [address] [place] [address] Dr. Kirk García IG # 0.02 10e3/ul Normal 0.00-0.03 [facility] Comment on above: Performed By: #### C BC #### [facility] [address] [place] [address] Dr. Kirk García IG % 0.3 % Normal 0.0-0.5 [facility] Comment on above: Performed By: #### C BC #### [facility] [address] [place] [address] Dr. Kirk García LYMPH # 1.7 103/ul Normal 1.2-3.8 [facility] Comment on above: Performed By: #### C BC #### [facility] [address] [place] [address] Dr. Kirk García Lymphocytes/100 WBC (Bld) 28.7 % Normal 20.5-60.0 [facility] Comment on above: Performed By: #### C BC #### [facility] [address] [place] [address] Dr. Kirk García MANUAL DIFF REQ NO Normal [facility] Comment on above: Performed By: #### C BC #### [facility] [address] [place] [address] Dr. Kirk García MCH (RBC) [Entitic mass] 34.4 pg Critically high 25.9-34.0 [facility] Comment on above: Performed By: #### C BC #### [facility] [address] [address] [address] Kirk García MCHC (RBC) [Mass/Vol] 33.3 g/dL Normal 29.9-35.2 [facility] Comment on above: Performed By: #### C BC #### [facility] [address] [address] [address] Kirk García MCV (RBC) [Entitic vol] 103.1 fL Critically high 80.0-94.0 [facility] Comment on above: Performed By: #### C BC #### [facility] [address] [address] [address] Kirk García MONO # 0.9 103/ul Critically high 0.3-0.8 [facility] Comment on above: Performed By: #### C BC #### [facility] [address] [place] [address] Dr. Kirk García Monocytes/100 WBC (Bld) 15.8 % Critically high 1.7-12.0 [facility] Comment on above: Performed By: #### C BC #### [facility] [address] [address] [address] Kirk García NEUT # 3.1 103/ul Normal 1.4-6.5 [facility] Comment on above: Performed By: #### C BC #### [facility] [address] [place] [address] Dr. Kirk García Neutrophils/100 WBC (Bld) 53.3 % Normal 43.0-75.0 [facility] Comment on above: Performed By: #### C BC #### [facility] [address] [address] [address] Kirk García Platelet mean volume (Bld) [Entitic vol] 10.6 fL Normal 9.5-13.5 [facility] Comment on above: Performed By: #### C BC #### [facility] [address] [place] [address] Dr. Kirk García PLT 147 103/ul Critically low 150-450 [facility] Comment on above: Performed By: #### C BC #### [facility] [address] [address] [address] Kirk García RBC 3.84 106/ul Critically low 4.70-6.10 [facility] Comment on above: Performed By: #### C BC #### [facility] [address] [address] [address] Kirk García WBC 5.9 103/ul Normal 4.0-11.0 [facility] Comment on above: Performed By: #### C BC #### [facility] [address] [address] [address] Kirk García DIGOXINon 07-08-2022 DIG 1.1 ng/mL Normal 0.9-2.0 [facility] Comment on above: Performed By: #### U MICRO, ERUR #### [facility] [address] [place] [address] Dr. Kirk García PROF CHEM 8 (BAS METB)on Anion gap [Moles/Vol] 13.6 mmol/L Normal [facility] Comment on above: Performed By: #### U MICRO, ERUR #### [facility] [address] [address] [address] Kirk García Calcium [Mass/Vol] 9.5 mg/dL Normal 8.5-10.1 [facility] Comment on above: Performed By: #### U MICRO, ERUR #### [facility] [address] [address] [address] Kirk García Chloride [Moles/Vol] 97 mmol/L Critically low 98-107 [facility] Comment on above: Performed By: #### U MICRO, ERUR #### [facility] [address] [address] [address] Kirk García CO2 [Moles/Vol] 28.8 mmol/L Normal 21.0-32.0 [facility] Comment on above: Performed By: #### U MICRO, ERUR #### [facility] [address] [address] [address] Kirk García Creatinine [Mass/Vol] 1.43 mg/dL Critically high 0.70-1.30 [facility] Comment on above: Performed By: #### U MICRO, ERUR #### [facility] [address] [place] [address] Dr. Kirk García EGFR-AF KITTITIAN 57 mL/min/1.73m2 Critically low >=60 [facility] Comment on above: Performed By: #### U MICRO, ERUR #### [facility] [address] [address] [address] Kirk García EGFR-NON AF KITTITIAN 47 mL/min/1.73m2 Critically low >=60 [facility] Comment on above: Performed By: #### U MICRO, ERUR #### [facility] [address] [place] [address] Dr. Kirk García Glucose [Mass/Vol] 99 mg/dL Normal 74-106 [facility] Comment on above: Performed By: #### U MICRO, ERUR #### [facility] [address] [place] [address] Dr. Kirk García Potassium [Moles/Vol] 4.4 mmol/L Normal 3.5-5.1 [facility] Comment on above: Performed By: #### U MICRO, ERUR #### [facility] [address] [place] [address] Dr. Kirk García Sodium [Moles/Vol] 135 mmol/L Critically low 136-145 [facility] Comment on above: Performed By: #### U MICRO, ERUR #### [facility] [address] [place] [address] Dr. Kirk García Urea nitrogen [Mass/Vol] 29.0 mg/dL Critically high 7.0-18.0 [facility] Comment on above: Performed By: #### U MICRO, ERUR #### [facility] [address] [place] [address] Dr. Kirk García Urea nitrogen/Creatinin e [Mass ratio] 20.3 mg/mg Normal [facility] Comment on above: Performed By: #### U MICRO, ERUR #### [facility] [address] [place] [address] Dr. Kirk García Patient Educationon 03-16-20 22 [...] Are older than age 65. ? Are -Afghan. ? Are obese. ? Have a family [...] Follow these instructions at home: ? Take vnni-wda-fuqbtch and prescription medicines only as told by [...] cancer specialis (more content not included)... Normal [facility] Urology Office/Clinic Noteon 03-16-2022 Urology Office/Clinic Note [...] E&M of Est. Patient Moderate 30-39 Min 26174 Measure Post Void residual urine and/or bladder capacity by US- non-imaging 15865 Urnls Dip Stick Auto w/o Microscopy POC 50952 2. History of prostate cancer (Z85.46: Personal history of malignant neoplasm of prostate) s/p brachytherapy in 2004. PSA remained very low. pt decided to have PCP do annual monitoring when he saw PRW March 2021. Ordered: E&M of Est. Patient Moderate 30-39 Min 51127 Measure Post Void residual urine and/or bladder capacity by US- non-imaging 22564 Urnls Dip Stick Auto w/o Microscopy POC 81688 Orders: oxybutynin, 5 mg = 1 tab(s), Oral, Daily, # 90 tab(s), Refills(s) 3, Pharmacy: [facility], 183, cm, 03/16/22 9:10:00 EDT, Height/Length Dosing, 99.3, kg, 03/16/22 9:10:00 EDT, Weight Dosing Follow-up With When Contact Information KENNETH SHEPARD, MARYBETH Trivedi, LORNA Within 6 months [address] [place] [address] Business (1) Additional Instructions: Patient Education Prostate Cancer 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 Normal [facility] Comment on above: Result Comment: Elec tronically [...] Are older than age 65. ? Are -Afghan. ? Are obese. ? Have a family [...] Follow these instructions at home: ? Take nhwp-fdj-diarnmc and prescription medicines only as told by [...] cancer specialis (more content not included)... Normal [facility] Urology Office/Clinic Noteon 01-06-2022 Urology Office/Clinic Note [...] worsen Ordered: Office Visit Level 4 Est 31104 2. History of prostate cancer (Z85.46: Personal history of malignant neoplasm of prostate) s/p brachytherapy in 2004. PSA remained very low. pt decided to have PCP do annual monitoring when he saw PRW at last visit March 2021. 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 Normal [facility] Comment on above: Result Comment: Elec tronically Signed By: MARYBETH COOPER PA-C\.lisa\Date and Time Signed: 01/06/22 16:55 NYDIA Corey 07-29-2021 MANOJ Telephone (Campus Sponsorship) HEATHSAMSON Del Cid ([id number]) 1935 M Date Time Provider Department 07/29/21 DALILA RILEY During your visit today, we recorded the following information about you: Dalila Riley RN 07/29/2021 10:36 AM Signed Spoke with Samson, he is currently still at the hotel and is planning on going to the [facility]. We discussed pain control and did remind patient use of Aleve or Motrin in between narcotics as the narcotics can increase issues with constipation. We did discuss use of Miralax if no Bm by Monday and patients states ND will help him with that. Encouraged to keep up with water intake especially since no appetite today. 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 [3607] Cmt: post-op Prescriptions as of 07/29/2021 - [...] Status:Closed by DALILA RILEY on 07/29/21 Normal [facility] ANES POSTPROC EVALon 021 ANES POSTPROC EVAL HNO ID: [id number] Author: Ramiro Esquivel MD Service: Anesthesiology Author [...] July 28, 2021 TIME: 1:35 PM CSN: [id number] [facility] ANES PRE-OPon 07-28-2021 ANES PRE-OP HNO ID: [id number] Author: Ramiro Esquivel MD Service: Anesthesiology Author [...] 100 mL Vial-Bag (UNASYN) 3 g INTRAVENOUS Contact Worker Lithography to OR - [COMPLETED] acetaminophen 1,000 mg [...] July 28, 2021 TIME: 10:17 AM CSN: [id number] [facility] HISTORY PHYSICALon HISTORY PHYSICAL HNO ID: [id number] Author: Jewel Cary III, MD Service: General [...] DATE: July 28, 2021 TIME: 10:16 AM [facility] OPERATIVE NOon 07-28-2021 OPERATIVE NO HNO ID: [id number] Author: Jewel Cary III, MD Service: General Surgery Author Type: Physician Type: Operative Report Filed: 07/28/2021 11:24 AM Note Text: OPERATIVE REPORT LOG ID: [id number] SURGERY/PROCEDURE DATE: 07/28/2021 INCISION/PROCEDURE START TIME: 10:47 AM INCISION CLOSE/PROCEDURE END TIME: 11:24 AM SURGEON: Jewel Cary III, MD ?? SUPPORT ARCHITECT: Monserrat Salazar PA-C? ? OPERATION: Laparoscopic cholecystectomy (19101). ? ANESTHESIA: GETA and 10 mL of [...] July 28, 2021 TIME: 11:22 AM Normal [facility] SURGICAL PATHOLOGYon 021 SURGICAL PATHOLOGY Specimen originated from [facility] Specimen #: [id number] Submitting Physician: JEWEL CARY MD FINAL DIAGNOSIS [...] The mucosa is walker-red, hyperemic, and granular. Teacher Vocal sections are submitted as follows: A1 cystic duct margin and wall, A2 fundus. SLE/ch 07/28/2021 [facility] [place] [address] Date of Report: 07/29/2021 Date of Procedure: 07/28/2021 Date of Receipt: 07/28/2021 Submitted by: JEWEL CARY MD Location: AV Diagnostic interpretation performed at [facility] [address] [address]. CLIA Number: [id number] Normal [facility] Comment on above: Performed By: #### S #### See report for performing lab information. HISTORY PHYSICALon HISTORY PHYSICAL HNO ID: [id number] Author: Denita Simmons PA-C Service: ? Author Type: Physician [employer] Application Developer Type: HANDP Filed: 07/19/2021 4:18 PM Note [...] in November 2019. He was admitted to [facility] due to Yuni cystitis. Providers at [...] 20's - PACEMAKER 2006 - PACEMAKER 01/2021 [employer] placed - PAST SURGICAL HISTORY OF [...] fevers. Neuro: No history of TIA's, stroke, WHITE HAT HACKER tumor, impaired sensorium, hemiplegia, paraplegia or quadraplegia. No neurological symptoms or problems. Respiratory: Negative for Asthma, Dyspnea, Tobacco Use, URI < 2 weeks +PND - can rarely trigger cough, but stable, no acute symptoms Cardiovascular: +Pacemaker ([employer]) - A-fib hx, CHB no symptoms +Heart failure - on digoxin, Lasix. Chronic lower extremity edema. +Valve history - s/p Mitral and tricuspid repair 2017 - Dr. Ulysses Duran - Ra (more content not included)... [facility] CNCOon 07-13-2021 CNCO Letter Text Normal [facility] CNPNon 07-13-2021 CNPN Telephone (GENSAV) SAMSON JOE ([id number]) 1935 M Date Time Provider Department 07/13/21 [...] by routing message back to Angel ROSARIO MANAGER STRATEGY & ACCOUNT, prior to notifying the patient. Marybeth Laureano 07/13/2021 1:53 PM Signed Pt seeing Cardi Dr Ulysses Duran @ [facility] 216 Will send clearance to this provider Cat Gibsb 07/15/2021 11:03 AM Signed Cari from Alondra Duran's office called and asked to have clearance letter fax to [phone]. Thank you. Marybeth Laureano 07/15/2021 11:21 AM Signed Letter reprinted and faxed to Alondra office with confirmation received. eDnita Simmons PA-C 07/19/2021 11:54 AM Signed Received [...] Encounter Status:Closed by MARYBETH LAUREANO on 07/13/21 [facility] 07-12-2021 CNPN Telephone (GENSAV) HEATHSAMSON Del Cid ([id number]) 1935 M Date Time Provider Department 07/12/21 JEWEL CARY III During your visit today, we recorded the following information about you: Marybeth Georgi 07/13/2021 2:08 PM Addendum Cur received Pt needs cardiac clearance Dr Kody Lynn Tele enct sent Spoke w pt he now sees Dr Ulysses Duran at [facility]. Letter electronically sent. Marybeth Georgi 07/13/2021 3:25 PM Signed electronic faxed failed printed and sent to verified fax number of [phone]. Confirmed received. Marybeth Georgi 07/19/2021 3:02 PM [...] Encounter Status:Closed by GEORGIEMILMARYBETH on 07/19/21 [facility] HISTORY PHYSICALon HISTORY PHYSICAL HNO ID: [id number] Author: Jewel Cary III, MD Service: ? [...] for internal providers or letter via the [employer] for external providers. HISTORY: He [...] stored in (more content not included)... Normal [facility] OPERATIVE REPORTon OPERATIVE REPORT NAME: SAMSON JOE MR#: [id number] SURGEON: Ulysses Duran MD DATE OF SURGERY: 02/01/2021 OPERATIVE REPORT PREOPERATIVE DIAGNOSIS: End of life pacemaker pulse generator. POSTOPERATIVE DIAGNOSIS: End of life pacemaker pulse generator. PROCEDURE: Change out of end of life pacemaker pulse generator. DESCRIPTION OF PROCEDURE: call center support consultant to the OR, he received 1 g [...] inserted. The new pulse generator is a [employer] Accolade MRI safe pacemaker, model #L311 serial #[id number]. The pulse generator was attached to the [...] end of the day today. MD GLORIA KAHN/ANDRIA/[id number] 0920 E/S: Ulysses Duran MD 02/08/21 0856 Electronically Signed [facility] PT NAME: SAMSON JOE MR#: [id number] [address] [place] [address] ACCT: [id number] : [birth year] OPERATIVE REPORT Normal [facility] SURGon 02-01-2021 SURG Normal [facility] Comment on above: Result Comment: RUN DATE: 02/02/21 [facility] LAB *LIVE* PAGE 1RUN TIME: 1351 Specimen InquiryRUN USER: [employer] Name: SAMSON JOE : [birth year] Sex:M Attend Dr: Ulysses Duran [facility]#: [id number] Unit#: [id number] Status: [facility] Received: 02/01/21 Status: PRIYANKA Patterson#: [id number]#: [id number] Collected: 02/01/21-[address] [facility] [address]: Ulysses Duran MDTISSUES: A. EXPLANTED HARDWARE MICROSCOPIC EXAM: N/A DIAGNOSIS: EXPLANTED HARDWARE, REMOVAL: - PULSE GENERATOR (GROSS DIAGNOSIS ONLY) Signed Signature on File KT SCHAFER 02/02/21 [facility] Name: SAMSON JOE [facility] Hosp Num: [id number] A Ministry of Age / Sex: 85/M [facility] Physician: Ulysses Duran MD [address] [place] [address] Location: SAME DAY SURGERY END OF REPORT Performed By: #### P SURG ####Test performed at: [address] [address] Vital Signs Date Time Vital Sign Value Performing Clinician Facility 11-22-2023 10:00-0500 Body height 182.88 cm [email or web address] Other [facility] Other 11-22-2023 10:00-0500 Body mass index (BMI) [Ratio] 28.67 kg/m2 [email or web address] Other [facility] Other 11-22-2023 10:00-0500 Body weight 95.89 kg [email or web address] Other [facility] Other 11-22-2023 10:00-0500 Diastolic blood pressure 64 mm[Hg] [email or web address] Other [facility] Other 11-22-2023 10:00-0500 Respiratory rate 16 /min Timo Ball Other [facility] Other 11-22-2023 10:00-0500 SaO2% (BldA) [Mass fraction] 95 % Timo Ball Other [facility] Other 11-22-2023 10:00-0500 Systolic blood pressure 102 mm[Hg] Timo Ball Other [facility] Other 10-03-2023 13:45-0500 Body height 182.88 cm Timo Ball Other [facility] Other 10-03-2023 13:45-0500 Body mass index (BMI) [Ratio] 29.02 kg/m2 Timo Ball Other [facility] Other 10-03-2023 13:45-0500 Body weight 97.07 kg Timo Ball Other [facility] Other 10-03-2023 13:45-0500 Diastolic blood pressure 67 mm[Hg] Timo Ball Other [facility] Other 10-03-2023 13:45-0500 Respiratory rate 16 /min Timo Ball Other [facility] Other 10-03-2023 13:45-0500 Systolic blood pressure 106 mm[Hg] Timo Ball Other [facility] Other 09-29-2023 13:45-0400 Body height 182.88 cm Timo Ball Other [facility] Other 08-31-2023 11:00-0400 Body height 182.88 cm Timo Ball Other [facility] Other 08-31-2023 11:00-0400 Body mass index (BMI) [Ratio] 28.23 kg/m2 Timo Ball Other [facility] Other 08-31-2023 11:00-0400 Body weight 94.44 kg Timo Ball Other [facility] Other 08-31-2023 11:00-0400 Diastolic blood pressure 61 mm[Hg] Timo Ball Other [facility] Other 08-31-2023 11:00-0400 Respiratory rate 12 /min Timo Ball Other [facility] Other 08-31-2023 11:00-0400 Systolic blood pressure 105 mm[Hg] Timo Ball Other [facility] Other 05-26-2023 11:00-0400 Body height 182.88 cm Timo Ball Other [facility] Other 05-26-2023 11:00-0400 Body mass index (BMI) [Ratio] 28.69 kg/m2 Timo Ball Other [facility] Other 05-26-2023 11:00-0400 Body weight 95.98 kg Timo Ball Other [facility] Other 05-26-2023 11:00-0400 Diastolic blood pressure 66 mm[Hg] Timo Ball Other [facility] Other 05-26-2023 11:00-0400 Respiratory rate 16 /min Timo Ball Other [facility] Other 05-26-2023 11:00-0400 Systolic blood pressure 116 mm[Hg] Timo Ball Other [facility] Other 01-20-2023 11:00-0500 Body height 182.88 cm Timo Ball Other [facility] Other 01-20-2023 11:00-0500 Body mass index (BMI) [Ratio] 28.53 kg/m2 Timo Ball Other [facility] Other 01-20-2023 11:00-0500 Body weight 95.44 kg Timo Ball Other [facility] Other 01-20-2023 11:00-0500 Diastolic blood pressure 64 mm[Hg] Timo Ball Other [facility] Other 01-20-2023 11:00-0500 Respiratory rate 16 /min Timo Ball Other [facility] Other 01-20-2023 11:00-0500 Systolic blood pressure 102 mm[Hg] Timo Ball Other [facility] Other 09-21-2022 12:18-0400 Blood Pressure Location MARYBETH KENNETH [facility] 09-21-2022 12:18-0400 Diastolic blood pressure 58 mm[Hg] MARYBETH KENNETH [facility] 09-21-2022 12:18-0400 Heart rate 80 /min MARYBETH KENNETH [facility] 09-21-2022 12:18-0400 Respiratory rate 16 /min MARYBETH KENNETH [facility] 09-21-2022 12:18-0400 Systolic blood pressure 111 mm[Hg] MARYBETH COOPER [facility] 03-16-2022 08:49-0400 Blood Pressure Location MARYBETH COOPER [facility] [employer] [employer] 03-16-2022 08:49-0400 Diastolic blood pressure 65 mm[Hg] MARYBETH COOPER [facility] [employer] 03-16-2022 08:49-0400 Heart rate 75 /min MARYBETH COOPER [facility] [employer] 03-16-2022 08:49-0400 Systolic blood pressure 93 mm[Hg] MARYBETH COOPER [facility] [employer] Encounters Encounter Date Encounter Type Care Provider Facility Start: 11-22-2023 End: 11-22-2023 ambulatory Timo Penny Other [facility] Other Start: 11-22-2023 Telephone encounter Timo Olivas [facility] Start: 11-22-2023 Transitional care [facility]lie [facility] 14 day discharge Timo RAMIREZ [facility] Start: 11-17-2023 End: 11-17-2023 ambulatory Timo Penny Other [facility] Other Start: 11-17-2023 Telephone encounter Timo DIEGO [facility] Start: 10-04-2023 End: 10-04-2023 ambulatory Timo Bar Other [facility] Start: 10-04-2023 Telephone encounter Timo Bar [facility] Start: 10-03-2023 End: 10-03-2023 ambulatory Timo Bar Other [facility] Start: 10-03-2023 Office outpatient vi sit 15 minutes Timo Bra [facility] Start: 09-29-2023 End: 09-29-2023 ambulatory Timo Bar Other [facility] Start: 09-29-2023 Nursing evaluation o f patient and report Timo Bar [facility] Start: 09-06-2023 End: 09-06-2023 ambulatory Timo Bar Other [facility] Start: 09-06-2023 Telephone encounter Timo Bar [facility] Start: 08-31-2023 End: 08-31-2023 ambulatory Timo Bar Other [facility] Start: 08-31-2023 Patient encounter procedure Timo Bar [facility] Start: 05-26-2023 End: 05-26-2023 ambulatory Timo Bar Other [facility] Start: 05-26-2023 Office outpatient vi sit 25 minutes Timo Bar [facility] Start: 05-02-2023 End: 05-02-2023 ambulatory [facility] Start: 04-17-2023 End: 04-17-2023 ambulatory JUAN LUIS [facility] Start: 01-20-2023 End: 01-20-2023 ambulatory Timo Bar Other [facility] Start: 01-20-2023 Office outpatient vi sit 25 minutes Timo Bar [facility] Start: 09-21-2022 End: 09-22-2022 ambulatory MARYBETH COOPER Facility:[facility] Start: 09-21-2022 End: 09-21-2022 Patient encounter procedure MARYBETH COOPER [facility] Start: 09-06-2022 End: 09-07-[address] TIMO BAR Facility:[facility] Start: 08-14-2022 End: 08-15-[address] TIMO BAR Facility:[facility] Start: 08-03-2022 End: 08-04-[address] TIMO BAR Facility:[facility] Start: 07-08-2022 End: 07-09-[address] TIMO BAR Facility:[facility] Start: 03-16-2022 End: 03-17-2022 ambulatory MARYBETH COOPER Facility:[facility] [place] Start: 03-16-2022 End: 03-16-2022 Patient encounter procedure MARYBETH COOPER [facility] Start: 01-06-2022 End: 01-07-2022 ambulatory MARYBETH COOPER Facility:[facility] [place] Start: 01-05-2022 ambulatory MARYBETH COOPER Facility :[facility] Start: 12-07-2018 Patient encounter procedure Facility:[id number] Start: 12-06-2018 Patient encounter procedure Facility:[id number] Procedures Date Procedure Procedure Detail Performing Clinician Start: 07-08-[address] CURRIE IN [place] Comment on above: Performed By: #### U MICRO, ERUR #### [facility] [address] [place] [address] Dr. Kirk García Start: 07-28-2021 Cholecystectomy SHADIA COOPER Start: 11-27-2006 Colonoscopy MARYBETH GRAVES Start: 11-27-2004 Implantation of radi oactive seed into prostate MARYBETH COOPER Repair of right ingu inal hernia MARYBETH COOPER Transrectal biopsy o f prostate using ultrasound guidance MARYBETH COOPER Immunizations Immunization Date Immunization Notes Care Provider Dari pérez 09-29-2023 influenza, high dose seasonal, preservative-free Timo Bar Other [facility] 09-07-2022 influenza virus vaccine, split virus (incl. purified surface antigen) Timo Bar Other [facility] 04-26-2022 SARS-CoV-2 mRNA (nijytbvlbvw-trtn-vsxgb se) vaccine MARYBETH COOPER [facility] 09-02-2021 SARS-CoV-2 (COVID-19 ) mRNA BNT-162b2 vax MARYBTEH COOPER [facility] 08-18-2021 influenza virus vaccine, unspecified formulation MARYBETHKOURTNEY COOPER [facility] 08-13-2021 influenza virus vaccine, split virus (incl. purified surface antigen) Timo Bar Other [facility] 02-23-2021 SARS-CoV-2 (COVID-19 ) mRNA BNT-162b2 vax MARYBETH COOPER [facility] 02-03-2021 SARS-CoV-2 (COVID-19 ) mRNA BNT-162b2 vax MARYBETH COOPER [facility] Comment on above: Result Comment: 2021: [id number] 01-25-2021 SARS-CoV-2 (COVID-19 ) mRNA BNT-162b2 vax MARYBETH COOPER [facility] 08-31-2020 influenza virus vaccine, split virus (incl. purified surface antigen) Timo Bar Other [facility] 08-30-2019 influenza virus vaccine, split virus (incl. purified surface antigen) Timo Bar Other [facility] Other 08-30-2019 influenza virus vaccine, unspecified formulation MARYBETH COOPER [facility] 08-29-2018 influenza virus vaccine, split virus (incl. purified surface antigen) Timo Bar Other [facility] [employer] Other 08-29-2018 influenza virus vaccine, unspecified formulation MARYBETH COOPER [facility] 08-03-2017 influenza virus vaccine, split virus (incl. purified surface antigen) Timo Bar Other [facility] [employer] Other 08-03-2017 influenza virus vaccine, unspecified formulation MARYBETH COOPER [facility] 09-05-2016 influenza virus vaccine, split virus (incl. purified surface antigen) Timo Bar Other [facility] [employer] Other 09-05-2016 influenza virus vaccine, unspecified formulation MARYBETH COOPER [facility] 10-16-2015 pneumococcal conjuga te vaccine, 13 valent Timo Bar Other [facility] [employer] Other 09-01-2015 influenza virus vaccine, split virus (incl. purified surface antigen) Timo Bar Other [facility] [employer] Other 09-15-2014 tetanus and diphther ia toxoids, adsorbed, preservative free, for adult use (5 Lf of tetanus toxoid and 2 Lf of diphtheria toxoid) Timo Bar Other [facility] 08-27-2013 tetanus and diphther ia toxoids, adsorbed, preservative free, for adult use (5 Lf of tetanus toxoid and 2 Lf of diphtheria toxoid) Timo Bar Other [facility] 01-10-2007 pneumococcal polysaccharide vaccine, 23 valent Timo Bar Other [facility] Other 1999 pneumococcal polysaccharide vaccine, 23 valent MARYBETH COOPER [facility] Payers Date Payer Category Payer Unknown [id number] 1960 Medicare [id number] 1960 Unknown [id number] 1934 Unknown [id number] 2.16. [id number] 1934 Unknown [id number] 2.16. [id number] 1934 Unknown [id number] 2.16.8 [id number] 1934 Unknown [id number] 2.16.8 [id number] 1934 Unknown [id number] 2.16.8 [id number] 1934 Unknown [id number] 2.16.8 [id number] 1934 Unknown [id number] 2.16.8 [id number] 1934 Unknown [id number] 2.16.84 [id number] 1934 Unknown [id number] 2.16.84 [id number] 1934 Unknown [id number] 2.16.84 [id number] 1934 Unknown [id number] 2.16.84 [id number] Medicare [id number] Unknown [id number] 2.16.8 [id number] Social History Date Type Detail Facility Start: 03-16-2022 End: 09-21-2022 Tobacco smoking status Never smoked tobacco (finding) [facility] Tobacco smoking status Never [facility] Sex Assigned At Male [facility] Functional Status Date Assessment Result Facility 09-21-2022 Functional Status N/A [facility] Clinical Notes 07-28-2021 to 11-29-2023 Note Date & Type Note Facility 11-29-2023 Note [id number] = 4 12/22/2016 - s/p [facility] 11-29-2023 Note H/O MV ring annulopl asty Monitor with echcoardiogram [facility] 11-29-2023 Note stable [facility] 11-29-2023 Note Will check BMP [facility] 11-29-2023 Note EF 35-40% with RV di litation [facility] III Continue GDMT- Diuretic therapy Monitor daily weights, I&O, fluid restriction 1.5-2L/day, renal function and electrolytes- [facility] 11-29-2023 Note Monitor symptoms and routine echocardiogram [facility] 11-29-2023 Note Device interrogation q 6 months [facility] 11-22-2023 Evaluation note Encounter Date Diagnosis Assessment [...] are maintaining regular scheduled appts with their ear machine operator. s/p LAAO procedure, off anticoagulation Oct, Pulmonary [...] I44.1) PM inserted PM checkups every 6months. [facility] 11-07-2023 Evaluation note* Encounter Date Diagnosis [...] continue exercise to achieve/maintain a normal BMI. [facility] Other 10-05-2023 Evaluation note* Encounter Date Diagnosis [...] are maintaining regular scheduled appts with their ear machine operator. No bleeding complications Aug, Chronic venous insufficiency [...] (ICD-10 - Z79.899) Check labs: CBC, Dig [facility] Other 06-30-2023 Evaluation note* Encounter Date Diagnosis [...] are maintaining regular scheduled appts with their ear machine operator. No bleeding complications Apr, Chronic venous insufficiency (ICD-10 - I87.2) Avoid salt and elevate lower extremities, support stockings, inspect legs and feet daily for blisters and ulcerations. Apr, Second degree heart block (ICD-10 - I44.1) PM inserted, routine PM checks w/ [facility] Apr, History of prostate cancer (ICD-10 - Z85.46) No s/s recurrence. No active treatment at this time. [facility] Other 05-22-2023 NotePatient is here today to establish care Review of Systems HENT: Positive for ear discharge. Eyes: Positive for vision loss in left eye and vision loss in right eye. Respiratory: Positive for cough. All other systems reviewed and are negative.[facility] 04-17-2023 [facility]Cardi[facility] [place] [facility] SUBJECTIVE Chief Complaint Patient presents with Establish Care HPI Samson oJe is a 87 y.o. male here as [...] puffier lately. -Will ob (more content not included)...[facility] 01-20-2023 Evaluation note* Encounter Date Diagnosis Assessment [...] are maintaining regular scheduled appts with their ear machine operator. 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 Needs new Ada Accommodation Consultant, suggest [facility] here in [place] Dec, History of prostate cancer (ICD-10 - Z85.46) No s/s recurrence [facility] Other [id number] Hospital Discharge instructions Patient Education 09/21/2022 12:37:02 [...] who: Are older than age 65. Are -Af[place]. Are obese. Have a family history of [...] cells. Follow these instructions at home: Take qhlz-iaw-tjcutlt and prescription medicines only as told by [...] 11/13/2006 Document Revised: 10/26/2018 Document Reviewed: 07/24/2017 [employer] Patient Education Consult A Doctor. Follow Up Care 03/16/2022 09:37:24 With:MARYBETH COOPER PA-C, URL Address: [address] [place] [id number] [phone] When: only if needed [facility] Hospital Discharge instructions Patient Education 03/16/2022 [...] who: Are older than age 65. Are -Afghan. Are obese. Have a family history of [...] cells. Follow these instructions at home: Take wxfn-uup-aowkmlo and prescription medicines only as told by [...] 11/13/2006 Document Revised: 10/26/2018 Document Reviewed: 07/24/2017 [employer] Patient Education 2020 [employer]. Follow Up Care 01/28/2022 16:02:47 With:KENNETH SHEPARD MARYBETH Farooq, URL Address: [address] [place] [address] Business (1) When:6 months [facility] 09-21-2021 NoteHNO ID: [id number] Author: Jewel Cary III, MD Service: ? Author Type: Physician Type: Progress Notes Filed: 08/17/2021 9:33 AM Note Text: This patient is post op from laparoscopic cholecystectomy. He has had no symptoms. P.E. The wounds are healing well without evidence of infection. I reviewed the pathology report with Samson. Assessment Satisfactory course Plan: Return to office PRN. Jewel Cary III, [facility]09-01-2021 NoteHNO ID: [id number] Author: Jaspal Phipps APRN.[employer]OURNEYMAN MILLWRIGHT Service: Anesthesiology Author Type: Nurse Surveying Teacher Type: Anesthesia Procedure Notes Filed: 07/28/2021 10:50 AM Note Text: ANESTHESIOLOGY PROCEDURE NOTE Airway General Information Procedure Start Time/Medication Administration: 07/28/2021 10:40 AM Patient location during procedure: OR Patient identity confirmed: arm band and patient Staffing Anesthesiologist: Ramiro Esquivel MD JOURNEYMAN MILLWRIGHT: Jaspal Phipps APRN.JOURNEYMAN MILLWRIGHT Performed by: JOURNEYMAN MILLWRIGHT Indications and Patient Condition Preoxygenated: yes Patient [...] July 28, 2021 TIME: 10:48 AM CSN: [id number] HospitalEvaluation + Plan note Future Appointments Appointment Date:09/21/2022 10:00:00 AM Scheduled Provider:MARYBETH COOPER PA-C Location:[facility] Appointment Type:URO Office Visit [facility] evaluation noteNo InformationNortArtVentive Medical Group Other History general Narrative - Reported* Type [...] GALLBLADDER 11/2029 Hospitalization History see surgical history [facility] Other History general Narrative - Reported* Type [...] 20 16 Hospitalization History see surgical history [facility] Other Hospital course Narrative No data available for this section [facility] progress note No data available for this section [facility] Summary Purpose Family History No Family [...] section and content) DATE CREATED AUTHOR 12/17/2018 [facility] DATE CREATED AUTHOR AUTHOR'S ORGANIZ ATION 07/31/2021 [facility] DATE CREATED AUTHOR AUTHOR'S ORGANIZ ATION 07/31/2021 [facility] DATE CREATED AUTHOR AUTHOR'S ORGANIZ ATION 12/24/2021 [facility] DATE CREATED AUTHOR AUTHOR'S ORGANIZ ATION 12/26/2021 [facility] DATE CREATED AUTHOR AUTHOR'S ORGANIZ ATION 09/22/2022 [facility] DATE CREATED AUTHOR AUTHOR'S ORGANIZ ATION 10/05/2022 [facility] DATE CREATED AUTHOR AUTHOR'S ORGANIZ ATION 11/30/2023 [facility] Patient Care team informatio n (unrecognized section and content) Personnel Name: TIMO BAR DO Address: Address: [address] [address]- REASON FOR VISIT (unrecogniz ed section and content) 6 MONTH FOLLOW UP4 MONTH [facility] LOW UPWellnessLab resultsflu shotankle/foot swellingRefillTCMARBUCKLE [facility] HHTBHMedication Garrett FOR RECORDS PERTAINING TO PATIENTS [...] ON THE PRIMARY CLINICAL RECORDS. [facility] [employer] [facility]. provides no warranty or guarantee of the accuracy or completeness of information in this document.
[2023-12-04] MEDS: OXYBUTYNIN CHLORIDE 5 MG TAB XL PO (08:27)
[2023-12-04] MEDS: ASPIRIN 81 MG TABLET.DR PO (08:27)
[2023-12-04] MEDS: METOPROLOL SUCCINATE 50 MG TAB.ER.24H PO (08:27)
[2023-12-04 09:09] LABS: Digoxin 0.7 ng/mL (0.9-2.0)
--- NOTE | 2023-12-04 09:27 | CM.NOTE ---
Rounds made with Dr. Fiore. Plan for discharge today. Verbalizes understanding.
--- NOTE | 2023-12-04 10:16 | SWNOTE1 ---
SW assisted in setting up [employer] transport, pt does not have ride as his friend is not able to today. SW called trips and they will be here between 12:15-12:45. SW spoke with pt to let him know. He voiced he attempted using trips as well for [place], [place] and [place] able to help. SW explained that since he was a hospital discharge, SW was able to set up. SW and pt spoke about transportation, pt has attempted taxi service in [place] and ambulance in [place]. SW did not have any other transport as pt was aware of them all. Pt is current with [facility] and would like to resume. MENDOZA sent over orders to [facility]. MENDOZA reviewed FOFANA form with pt, he voiced understanding, no questions or concerns. Pt signed form, original given to pt and copy placed in chart.
--- NOTE | 2023-12-04 10:43 | P.DS_ITS ---
DS: Providers Provider Date of admission: 12/03/23 13:50 Primary care physician: Timo Bar DO DS: Diagnosis Discharge Diagnosis (1) Hypoxemia: (2) Acute exacerbation of CHF (congestive heart failure): Qualifiers: Heart failure type: unspecified Qualified Code(s): I50.9 - Heart f ailure, unspecified Plan Acute hypoxia, respiratory distress, elevated BNP, chest x-ray finding consistent with pulmonary edema, peripheral edema noted on exam-secondary to acute combined congestive heart failure- Iron deficiency anemia Thrombocytopenia Hyperbilirubinemia Chronic kidney disease stage II DS: Summary Hospital Course Hospital Course: Pt admitteed to obs for Acute combned CHF - diuresed well with bumex drip. Hypoia is ressolved. He feels much better this am. Will d/c to home in improvi ng condition. Meds see list. Follow up on thrombocytopena as out-pt Time Spent with Patient Time attestation: Total time spent providing and/or coordinating discharge services: Exam Constitutional Vital Signs, click to edit/add: Last Vital Signs Temp 98.3 F 12/04/23 04:20 Pulse 71 12/04/23 10:00 Resp 16 12/04/23 09:06 BP 113/73 12/04/23 04:20 Pulse Ox 95 12/04/23 09:27 O2 Del Method Room Air 12/04/23 09:27 O2 Flow Rate 2 12/04/23 08:10 Documenting provider has reviewed patient's vital signs: yes Common normals: no apparent distress General appearance: cooperative Orientation/consciousness: Yes awake HENMT Common normals: normocephalic, head/scalp atraumatic, hearing grossly normal bilaterally, external nose normal and moist oral mucous membranes Chest Common normals: inspection of chest normal Respiratory Common normals: normal respiratory effort Auscultation: rales (BLL) Cardio Common normals: no JVD, regular rate and regular rhythm GI Common normals: Normal to inspection, nondistended, normoactive bowel sounds present, soft to palpation, non-tender, no hepatosplenomegaly, no masses and no bruits Bladder/kidney exam: bladder normal to palpation Back & Pelvis Common normals: thoracic and lumbar spine normal to inspection Extremity Common normals: normal capillary refill General: edema (improved to trace pitting); no clubbing and no cyanosis Neuro Génesis Coma Scale: GCS not evaluated Common normals: CN's II-XII intact bilaterally, moves all extremities, no focal motor deficits and no sensory deficits noted Speech: speech normal Motor exam: strength 5/5 throughout Psych Common normals: mental status grossly normal, thought process normal, affect normal and activity/motor behavior normal DS: Data Data Completed and Pending Labs on day of discharge: Labs from last 24 hours 12/04/23 12/03/23 12/03/23 05:20 16:50 13:20 WBC 4.9 RBC 3.10 L Hgb 10.9 L Hct 33.5 L MCV 108.1 H MCH 35.2 H MCHC 32.5 RDW 14.9 Plt Count 108 L MPV 11.5 Neut % (Auto) 62.6 Lymph % (Auto) 19.2 L [place] % (Auto) 16.0 H Eos % (Auto) 1.4 Baso % (Auto) 0.4 Neut # (Auto) 3.1 Lymph # (Auto) 0.9 L [place] # (Auto) 0.8 Eos # (Auto) 0.1 Baso # (Auto) 0.0 Abs Immat Gran (auto) 0.02 Imm/Tot Granulo (auto) 0.4 Sodium 142 Potassium 3.6 Chloride 101 Carbon Dioxide 29.8 Anion Gap 14.8 BUN 47.0 H Creatinine 1.51 H Est GFR ( Amer) 53 L Est GFR (Non-Af Amer) 44 L BUN/Creatinine Ratio 31.1 Glucose 96 Calcium 9.3 Magnesium 2.0 Total Bilirubin 1.8 H AST 12 L ALT 23 Alkaline Phosphatase 114 Troponin I High Sens 52.8 50.8 45.3 NT-Pro-B Natriuret Pep 3180.0 H* Total Protein 7.4 Albumin 3.1 L Globulin 4.3 Albumin/Globulin Ratio 0.7 Digoxin 0.7 L 12/03/23 11:20 WBC 4.7 RBC 3.25 L Hgb 11.2 L Hct 34.7 L MCV 106.8 H MCH 34.5 H MCHC 32.3 RDW 14.9 Plt Count 109 L MPV 11.2 Neut % (Auto) 68.9 Lymph % (Auto) 14.6 L [place] % (Auto) 14.4 H Eos % (Auto) 1.3 Baso % (Auto) 0.6 Neut # (Auto) 3.3 Lymph # (Auto) 0.7 L [place] # (Auto) 0.7 Eos # (Auto) 0.1 Baso # (Auto) 0.0 Abs Immat Gran (auto) 0.01 Imm/Tot Granulo (auto) 0.2 Sodium 138 Potassium 4.1 Chloride 99 Carbon Dioxide 28.7 Anion Gap 14.4 BUN 46.0 H Creatinine 1.45 H Est GFR ( Amer) 56 L Est GFR (Non-Af Amer) 46 L BUN/Creatinine Ratio 31.7 Glucose 137 H Calcium 9.6 Magnesium 2.4 Total Bilirubin 2.0 H AST 14 L ALT 26 Alkaline Phosphatase 111 Troponin I High Sens 46.1 NT-Pro-B Natriuret Pep 2856.0 H* Total Protein 7.8 Albumin 3.3 L Globulin 4.5 Albumin/Globulin Ratio 0.7 Digoxin 1.3 Discharge Plan Discharge Disposition: Home, Self-Care Discharge Medications: Continued oxybutynin chloride 5 mg tablet extended release 24hr 5 mg PO Q24H digoxin 125 mcg (0.125 mg) tablet 0.125 mg PO Q24H lisinopril 2.5 mg tablet 2.5 mg PO Q24H Hold Instructions: Until OK with PCP based on renal function aspirin [Janice Low Dose Aspirin] 81 mg tablet,delayed release (DR/EC) 81 mg PO DAILY furosemide 40 mg tablet 40 mg PO Q24H metoprolol succinate 50 mg tablet extended release 24 hr 50 mg PO QDAY Farxiga 5 mg tablet 5 mg PO DAILY Activity: increase activity as tolerated Diet: advance to your usual diet Patient Instructions: Heart Failure (DC) Sleeve Baster/Field Administrative Assistant Instructions: Discharge with [facility], phone number is [phone] Forms: Portal Instructions Follow Up Appointments: @ 11:30am with Dr. Bar [phone] [facility] (Free service/donation) [phone] Available Mon-Fri (9a-4:30p) - driver license reviewing officer availability may vary
--- NOTE | 2023-12-05 14:53 | CM.DCFOLLOWU ---
Person spoke with: Samson How are you feeling? Better How is your pain? No pain Did you understand your discharge instructions? yes Do you have any questions about your discharge instructions? No Were you given any prescriptions at discharge? No Were you able to get your prescriptions filled? N/A Do you understand how to take your medications as ordered? Yes Do you have any questions about your follow up appointment and do you plan to keep your follow up appointment? No- they are scheduled Is there anything else that you would like to discuss? No Questions/Comments/Concerns/Other:
== END 2023-12-04 12:38 | disposition home or self-care (01) ==
LOC: ER 12:53 → MS 12-04 07:37
PROVIDERS: Admitting Provider Family Medicine; Emergency Provider Emergency Medicine; PCP Internal Medicine; Visit Provider Family Medicine
DX: I13.0 Hypertensive heart and chronic kidney disease with heart failure and stage 1 through stage 4 chronic kidney disease, or unspecified chronic kidney disease (principal); I50.41 Acute combined systolic (congestive) and diastolic (congestive) heart failure; I25.10 Atherosclerotic heart disease of native coronary artery without angina pectoris; R06.03 Acute respiratory distress; D69.6 Thrombocytopenia, unspecified; I48.0 Paroxysmal atrial fibrillation; Z85.46 Personal history of malignant neoplasm of prostate; Z95.0 Presence of cardiac pacemaker; R09.02 Hypoxemia; D50.9 Iron deficiency anemia, unspecified; E80.6 Other disorders of bilirubin metabolism; N18.2 Chronic kidney disease, stage 2 (mild); Z79.82 Long term (current) use of aspirin; Z79.899 Other long term (current) drug therapy; N32.81 Overactive bladder; Z98.890 Other specified postprocedural states
CPT/HCPCS: 36415; 71045; 80053; 80162; 83735; 83880; 84484; 85025; 93005; 94667; 94761; 96365; 96366; 99285; G0378; J1940

== ENCOUNTER 2024-01-01 13:51 | Outpatient (OUT) | payer MEDICARE, OTHER, SELFPAY ==
--- OUTSIDE RECORDS SUMMARY | 2024-01-01 13:59 | XMS_ITS | CCD ---
Author Name Unknown Address [address] [place] [address] Organization [facility] Care Team Providers Care Childcare Provider Name Role Phone TIMO BAR Primary Care [...] Consulting Unavailable PENNY, DR MARRUFO Admitting Unavailable BALL, DR MARRUFO Attending Unavailable BALL, DR MARRUFO Primary Care Unavailable PENNY, DR MARRUFO Consulting Unavailable PENNY, DR MARRUFO Admitting Unavailable PENNY, DR MARRUFO Attending Unavailable PENNY, DR MARRUFO Primary Care Unavailable PENNY, DR MARRUFO Consulting Unavailable PENNY, DR MARRUFO Primary Care Unavailable MARIAN, DR ZACH Scott Admitting Unavailable MARIAN, DR ZACH Scott Attending Unavailable MARIAN, DR ZACH Scott Consulting Unavailable AHTRISTEN, ANA Consulting Unavailable Timo Bar Unavailable EDDIE WEISS Attending Unavailable ELIAS MCKEON, NAOMI Arriaza Referring SAMSON Rogers Referring Unavailable JUAN LUIS KYLE Attending Unavailable [...] Status: Ordered dapagliflozin 5 mg oral tablet (3 sources) Sodium-Glucose Cotransporter 2 Inhibitor Start: 11-22-2023 take 1 tablet by mouth every twenty-four hours Farxiga 5 MG 1 tablet Orally Once a day for 30 days Oct, Active DuoDERM CGF Extra Thin - (16 sources) DuoDERM CGF Extra Thin - as directed Externally Active furosemide 40 mg oral tablet (18 sources) Loop Diuretic Start: 12-30-2019 take 1 tablet by mouth once daily Lasix 40 mg Tab See Instructions, tab(s) mg Oral Daily, Refills(s) 0 Start Date: 12/30/19 Status: Ordered lisinopril 2.5 mg oral tablet (11 sources) Angiotensin Converting Enzyme Inhibitor Start: 12-25-2019 take 2.5 mg by mouth once daily lisinopril 2.5 mg, Oral, Daily, Refills(s) 0 Start Date: 12/25/19 Status: Ordered Low-Dose Aspirin (16 sources) Low-Dose Aspirin Active melatonin 5 mg oral tablet (16 sources) take 1 tablet by mouth every twenty-four hours Melatonin 5 MG 1 tablet in the evening Orally Once a day Active metoprolol tartrate 50 mg oral tablet (18 sources) beta-Adrenergic Tang Start: 11-22-2023 take 1 capsule by mouth once daily Metoprolol Succinate 50 MG 1 capsule Orally Once a day Oct, Active Start: 12-25-2019 take 1 mg [...] chloride 5 mg extended release oral tablet (18 sources) Cholinergic Muscarinic Antagonist Start: 03-16-2022 take 1 tablet by mouth once daily oxybutynin 5 mg ER Tab 5 mg = 1 tab(s), Oral, Daily, # 90 tab(s), Refills(s) 3, Pharmacy: [id number], 183, cm, 09/21/22 12:19:00 EDT, Height/Length Dosing, 99.3, kg, 09/21/22 12:19:00 EDT, Weight Dosing Start Date: 09/21/22 Status: Ordered potassium chloride 20 meq powder for oral solution (12 sources) take 1 dose by mouth once daily at mealtime Potassium Chloride 20 MEQ 1 packet with food Orally Once a day Active Vitamin B Complex oral capsule (2 sources) Start: 02-14-2020 Vitamin B Comp dyllan oral capsule Oral, Daily, Refill(s) 0 Start Date: 02/14/20 Status: Ordered Completed/Discontinued Medications Medication Drug Class(es) Dates Sig (Normalized) Sig (Original) digoxin 0.125 mg oral tablet (18 sources) Cardiac Glycoside Start: 01-01-2020 take 1 [...] of prostate 12-30-2019 Chronic Cancer of prostate (20 sources) Personal history of malignant neoplasm of prostate; Translations: [History of malignant neoplasm of prostate] Onset: 03-16-2022 Episodic Cardiac dysrhythmias (20 sources) Atrial fibrillation; Translations: [Paroxysmal atrial fibrillation] 01-01-2020 Chronic Chronic kidney disease (4 sources) Chronic kidney disease stage 3B ; Translations: [Stage 3b chronic kidney disease] Chronic Chronic kidney disease (1 source) Chronic kidney disease; Translations: [CHRONIC KIDNEY DISEASE STAGE 3A] Onset: 08-10-2022 Chronic ulcer of skin (16 sources) Pressure ulcer of right buttock, stage 1; Translations: [Pressure injury of right buttock stage I (disorder)] Chronic Conduction disorders (20 sources) Second degree atrioventricular block; 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] Onset: 08-10-2022 01-01-2020 Chronic Congestive heart failure; nonhypertensive (20 sources) Chronic systolic heart failure; Translations: [Chronic systolic (congestive) heart failure] Chronic Deficiency and other anemia (1 source) Anemia, unspecified Episodic Disorders of lipid metabolism (2 sources) Hyperlipidemia [...] 04-13-2020 Episodic Gout and other crystal arthropathies (12 sources) Primary gout; 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, 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 Heart valve disorders (20 sources) Aortic valve regurgitation; Translations: [Mitral valve [...] 08-10-2022 Episodic Other aftercare (6 sources) Other retirement (current) drug therapy; 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] Onset: 07-08-2022 Episodic Other aftercare (1 source) senior living (current) use of aspirin; Translations: [CUSTODIAL CURRENT USE OF ASPIRIN] Onset: 08-16-2022 Episodic Other and ill-defined heart disease (2 sources) Left ventricular hypertrophy 01-01-2020 Chronic Other diseases of veins and lymphatics (17 sources) Peripheral venous insufficiency; Translations: [Venous insufficiency [...] caused by tuberculosis or sexually transmitted disease) (20 sources) Dilated cardiomyopathy; 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] Onset: 07-12-2022 Chronic Pulmonary heart disease (20 sources) 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 [...] Range Facility Office Visiton 04-17-2023 Follow-up visit [id number] Samson Joe 1935 M Date Provider Department Center 04/17/2023 Stephane-JUAN LUIS KYLE CARD [facility] No family history on file Level of Service:46977 AL OFFICE/OUTPATIENT NEW MODERATE MDM 45-59 MINUTES Reason for Visit and Comments: Establish Care [42] Normal [facility] Ambulatory Visit Summaryon 1 Ambulatory Visit Summary SAMSON JOE :1935 Visit Date:09/21/2022 Ambulatory Visit Instructions Your Diagnosis Urge incontinence History of prostate cancer Tests Performed Urnls Dip Stick Auto w/o Microscopy POC 57730 Your Care Team Attending Physician - MARYBETH COOPER PA-C Primary Care Physician - PENNY MARQUEZ TIMO This Is Your Medications List oxybutynin (oxybutynin [...] When: Only if needed Where: [address] [place] [address] [id number] Medications What How Much When Instructions Unchanged oxybutynin (oxybutynin 5 mg ER Tab) 1 Tablets By Mouth Every day Pickup at [facility] Unchanged ascorbic acid (Vitamin C) Every [...] physician if questions or concerns Pharmacy Information [id number]: [address] [place], [place] [id number] [phone] Test Results Urnls Dip Stick Auto w/o Microscopy POC 39495 (09/21/2022) Bilirubin Urine Dipstick - Negative Blood Urine Dipstick - Negative Glucose Urine Dipstick - Negative Ketones Urine Dipstick - Negative Leukocytes Urine Dipstick - Negative Nitrite Urine Dipstick - Negative Protein Urine Dipstick - Negative Specific [place] Urine Dipstick - 1.015 Urine Appearance Urine [...] hematuria History of prostate cancer Hyperlipidemia 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 ? Are -[place]ag[place]. ? Are obese. ? Have a family [...] during urination (more content not included)... Normal [facility] Ambulatory Visit Summary SAMSON JOE :1935 Visit Date:09/21/2022 Ambulatory Visit Instructions Your Diagnosis Urge incontinence History of prostate cancer Tests Performed Urnls Dip Stick Auto w/o Microscopy POC 41753 Your Care Team Attending Physician - MARYBETH [...] Following Appointments Follow Up with MARYBETH COOPER PA-C URL When: Only if needed Where: [address] [place] [address] [phone] Medications What How Much When Instructions Unchanged [...] Urnls Dip Stick Auto w/o Microscopy POC 45119 (09/21/2022) Bilirubin Urine Dipstick - Negative Blood Urine Dipstick - Negative Glucose Urine Dipstick - Negative Ketones Urine Dipstick - Negative Leukocytes Urine Dipstick - Negative Nitrite Urine Dipstick - Negative Protein Urine Dipstick - Negative Specific [place] Urine Dipstick - 1.015 Urine Appearance Urine [...] hematuria History of prostate cancer Hyperlipidemia Hypertension senior living current use of 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 ? Are -[place]. ? Are obese. ? Have a family [...] upper thi (more content not included)... Normal [facility] Patient Educationon 09-21-20 Patient Education Oncology Prostate [...] Are older than age 65. ? Are -[place]. ? Are obese. ? Have a family [...] Follow these instructions at home: ? Take [id number]-[id number] and prescription medicines only as told by [...] cancer specialis (more content not included)... Normal [facility] Urology Office/Clinic Noteon 09-21-2022 Urology Office/Clinic Note [...] this time. History of Present Illness staff [facility] reviewed and agree. Review of [...] SHEPARD, MARYBETH Trivedi, URL Only if needed [address] [place] [address] [phone] Additional Instructions: Patient Education Prostate Cancer Rebecca Vásquez personally scribed for Marybeth Cooper PA-C on 09/21/2022 12:37:29. . Documentation recorded by the rehan Mares accurately reflects the services(s) I performed and decisions made by me. Authenticated by Marybeth Cooper PA-C on 09/21/2022 12:42:06. 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 Immunizations Vaccine Date Status Comments SARSCoV2 mRNA(veltmdidg-oyul-g ucros) vac 04/26/2022 Recorded SARS-CoV-2 (COVID-19) mRNA [...] 09/05/2016 Rec (more content not included)... Normal [facility] Comment on above: Result Comment: Elec tronically Signed By: KENNETH SHEPARD, MARYBETH Trivedi\.br\Date and Time Signed: 09/21/22 13:18 EDT CBC AUTO DIFFon 09-06-2022 BASO # 0.0 103/ul Normal 0.0-0.1 [facility] Comment on above: Performed By: #### C BC #### [facility] [address] [place] [address] Dr. Kirk García Basophils/100 WBC (Bld) 0.5 % Normal 0.2-2.0 [facility] Comment on above: Performed By: #### C BC #### [facility] [address] [place] [address] Dr. Kirk García EO # 0.1 103/ul Normal 0.0-0.7 [facility] Comment on above: Performed By: #### C BC #### [facility] [address] [place] [address] Dr. Kirk García Eosinophils/100 WBC (Bld) 1.2 % Normal 0.9-7.0 [facility] Comment on above: Performed By: #### C BC #### [facility] [address] [place] [address] Dr. Kirk García Erythrocyte distribution width (RBC) [Ratio] 14.2 % Normal 11.0-15.0 [facility] Comment on above: Performed By: #### C BC #### [facility] [address] [place] [address] Dr. Kirk García Hematocrit (Bld) [Volume fraction] 35.6 % Critically low 42.0-54.0 [facility] Comment on above: Performed By: #### C BC #### [facility] [address] [place] [address] Dr. Kirk García Hemoglobin (Bld) [Mass/Vol] 11.7 g/dL Critically low 14.0-18.0 [facility] Comment on above: Performed By: #### C BC #### [facility] [address] [place] [address] Dr. Kirk García IG # 0.04 10e3/ul Critically high 0.00-0.03 [facility] Comment on above: Performed By: #### C BC #### [facility] [address] [place] [address] Dr. Kirk García IG % 0.6 % Critically high 0.0-0.5 [facility] Comment on above: Performed By: #### C BC #### [facility] [address] [place] [address] Dr. Kirk García LYMPH # 1.7 103/ul Normal 1.2-3.8 [facility] Comment on above: Performed By: #### C BC #### [facility] [address] [place] [address] Dr. Kirk García Lymphocytes/100 WBC (Bld) 25.7 % Normal 20.5-60.0 [facility] Comment on above: Performed By: #### C BC #### [facility] [address] [place] [address] Dr. Kirk García MANUAL DIFF REQ NO Normal [facility] Comment on above: Performed By: #### C BC #### [facility] [address] [place] [address] Dr. Kirk García MCH (RBC) [Entitic mass] 34.1 pg Critically high 25.9-34.0 [facility] Comment on above: Performed By: #### C BC #### [facility] [address] [place] [address] Dr. Kirk García MCHC (RBC) [Mass/Vol] 32.9 g/dL Normal 29.9-35.2 [facility] Comment on above: Performed By: #### C BC #### [facility] [address] [place] [address] Dr. Kirk García MCV (RBC) [Entitic vol] 103.8 fL Critically high 80.0-94.0 [facility] Comment on above: Performed By: #### C BC #### [facility] [address] [place] [address] Dr. Kirk García MONO # 1.1 103/ul Critically high 0.3-0.8 [facility] Comment on above: Performed By: #### C BC #### [facility] [address] [place] [address] Dr. Kirk García Monocytes/100 WBC (Bld) 17.7 % Critically high 1.7-12.0 [facility] Comment on above: Performed By: #### C BC #### [facility] [address] [place] [address] Dr. Kirk García NEUT # 3.5 103/ul Normal 1.4-6.5 [facility] Comment on above: Performed By: #### C BC #### [facility] [address] [place] [address] Dr. Kirk García Neutrophils/100 WBC (Bld) 54.3 % Normal 43.0-75.0 [facility] Comment on above: Performed By: #### C BC #### [facility] [address] [place] [address] Dr. Kirk García Platelet mean volume (Bld) [Entitic vol] 10.1 fL Normal 9.5-13.5 [facility] Comment on above: Performed By: #### C BC #### [facility] [address] [place] [address] Dr. Kirk García PLT 153 103/ul Normal 150-450 [facility] Comment on above: Performed By: #### C BC #### [facility] [address] [place] [address] Dr. Kirk García RBC 3.43 106/ul Critically low 4.70-6.10 [facility] Comment on above: Performed By: #### C BC #### [facility] [address] [place] [address] Dr. Kikr García WBC 6.5 103/ul Normal 4.0-11.0 [facility] Comment on above: Performed By: #### C BC #### [facility] [address] [place] [address] Dr. Kirk García PROF CHEM 8 (BAS METB)on Anion gap [Moles/Vol] 10.8 mmol/L Normal [facility] Comment on above: Performed By: #### B MP #### [facility] [address] [place] [address] Dr. Kirk García Calcium [Mass/Vol] 9.2 mg/dL Normal 8.5-10.1 [facility] Comment on above: Performed By: #### B MP #### [facility] [address] [place] [address] Dr. Kirk García Chloride [Moles/Vol] 101 mmol/L Normal 98-107 [facility] Comment on above: Performed By: #### B MP #### [facility] [address] [address] [address] Kirk García CO2 [Moles/Vol] 30.9 mmol/L Normal 21.0-32.0 [facility] Comment on above: Performed By: #### B MP #### [facility] [address] [place] [address] Dr. Kirk García Creatinine [Mass/Vol] 1.54 mg/dL Critically high 0.70-1.30 [facility] Comment on above: Performed By: #### B MP #### [facility] [address] [place] [address] Dr. Kirk García EGFR-AF LITHUANIAN 52 mL/min/1.73m2 Critically low >=60 [facility] Comment on above: Performed By: #### B MP #### [facility] [address] [place] [address] Dr. Kirk aGrcía EGFR-NON AF LITHUANIAN 43 mL/min/1.73m2 Critically low >=60 [facility] Comment on above: Performed By: #### B MP #### [facility] [address] [place] [address] Dr. Kirk García Glucose [Mass/Vol] 106 mg/dL Normal 74-106 [facility] Comment on above: Performed By: #### B MP #### [facility] [address] [address] [address] Kirk García Potassium [Moles/Vol] 4.7 mmol/L Normal 3.5-5.1 [facility] Comment on above: Performed By: #### B MP #### [facility] [address] [place] [address] Dr. Kirk García Sodium [Moles/Vol] 138 mmol/L Normal 136-145 [facility] Comment on above: Performed By: #### B MP #### [facility] [address] [address] [address] Kirk aGrcía Urea nitrogen [Mass/Vol] 28.0 mg/dL Critically high 7.0-18.0 [facility] Comment on above: Performed By: #### B MP #### [facility] [address] [address] [address] Kirk García Urea nitrogen/Creatinin e [Mass ratio] 18.2 mg/mg Normal [facility] Comment on above: Performed By: #### B MP #### [facility] [address] [place] [address] Dr. Kirk García CBC W MANUAL DIFFon 08-15-20 22 ATYPICAL LYMPH # 1.62 103/ul Normal [facility] Comment on above: Performed By: #### U MICRO, ERUR #### [facility] [address] [place] [address] Dr. Kirk García ATYPICAL LYMPH % 12 % Normal [facility] Comment on above: Performed By: #### U MICRO, ERUR #### [facility] [address] [place] [address] Dr. Kirk García BAND # 0.1 103/ul Normal 0.0-0.3 [facility] Comment on above: Performed By: #### U MICRO, ERUR #### [facility] [address] [place] [address] Dr. Kirk García BAND % 1 % Normal 0-5 [facility] Comment on above: Performed By: #### U MICRO, ERUR #### [facility] [address] [address] [address] Kirk García BASOM # 0.14 103/ul Critically high 0.00-0.10 [facility] Comment on above: Performed By: #### U MICRO, ERUR #### [facility] [address] [place] [address] Dr. Kirk García BASOM % 1.0 % Normal 0.2-2.0 [facility] Comment on above: Performed By: #### U MICRO, ERUR #### [facility] [address] [address] [address] Kirk García BLAST # Normal [facility] Comment on above: Performed By: #### U MICRO, ERUR #### [facility] [address] [place] [address] Dr. Kirk García BLAST % Normal [facility] Comment on above: Performed By: #### U MICRO, ERUR #### [facility] [address] [address] [address] Kirk García CORRECTED WBC Normal 4.0-11.0 [facility] Comment on above: Performed By: #### U MICRO, ERUR #### [facility] [address] [place] [address] Dr. Kirk García EOS # 0.14 103/ul Normal 0.00-0.70 [facility] Comment on above: Performed By: #### U MICRO, ERUR #### [facility] [address] [place] [address] Dr. Kirk García EOS% 1.0 % Normal 0.9-7.0 [facility] Comment on above: Performed By: #### U MICRO, ERUR #### [facility] [address] [place] [address] Dr. Kirk García HCT 40.7 % Critically low 42.0-54.[address] [facility] Comment on above: Performed By: #### U MICRO, ERUR #### [facility] [address] [place] [address] Dr. Kirk García HGB 13.4 g/dl Critically low 14.0-18.[address] [facility] Comment on above: Performed By: #### U MICRO, ERUR #### [facility] [address] [place] [address] Dr. Kirk García LYMPHM # 0.54 103/ul Critically low 1.20-3.80 [facility] Comment on above: Performed By: #### U MICRO, ERUR #### [facility] [address] [place] [address] Dr. Kirk García LYMPHM% 4.0 % Critically low 20.5-60.[address] [facility] Comment on above: Performed By: #### U MICRO, ERUR #### [facility] [address] [address] [address] Kirk García MCH 34.2 pg Critically high 25.9-34.0 [facility] Comment on above: Performed By: #### U MICRO, ERUR #### [facility] [address] [address] [address] Kirk García MCHC 32.9 g/dl Normal 29.9-35.2 [facility] Comment on above: Performed By: #### U MICRO, ERUR #### [facility] [address] [place] [address] Dr. Kirk García MCV 103.8 fL Critically high 80.0-94.0 [facility] Comment on above: Performed By: #### U MICRO, ERUR #### [facility] [address] [place] [address] Dr. Kirk García METAMYELOCYTE # Normal [facility] Comment on above: Performed By: #### U MICRO, ERUR #### [facility] [address] [address] [address] Kirk García METAMYELOCYTE % Normal [facility] Comment on above: Performed By: #### U MICRO, ERUR #### [facility] [address] [address] [address] Kirk García MONOM# 1.08 103/ul Critically high 0.30-0.80 [facility] Comment on above: Performed By: #### U MICRO, ERUR #### [facility] [address] [address] [address] Kirk García MONOM% 8.0 % Normal 1.7-12.0 [facility] Comment on above: Performed By: #### U MICRO, ERUR #### [facility] [address] [place] [address] Dr. Kirk García MPV 10.7 fL Normal 9.5-13.5 [facility] Comment on above: Performed By: #### U MICRO, ERUR #### [facility] [address] [address] [address] Kirk García MYELOCYTE # Normal [facility] Comment on above: Performed By: #### U MICRO, ERUR #### [facility] [address] [address] [address] Kirk García MYELOCYTE % Normal [facility] Comment on above: Performed By: #### U MICRO, ERUR #### [facility] [address] [address] [address] Kirk García NRBC Normal [facility] Comment on above: Performed By: #### U MICRO, ERUR #### [facility] [address] [address] [address] Kirk García PLT 140 103/ul Critically low 150-[address] [facility] Comment on above: Performed By: #### U MICRO, ERUR #### [facility] [address] [address] [address] Kirk García RBC 3.92 106/ul Critically low 4.70-6.10 [facility] Comment on above: Performed By: #### U MICRO, ERUR #### [facility] [address] [place] [address] Dr. Kirk García RDW 14.0 % Normal 11.0-15.0 [facility] Comment on above: Performed By: #### U MICRO, ERUR #### [facility] [address] [address] [address] Kirk García SEG # 9.86 103/ul Critically high 1.40-6.50 [facility] Comment on above: Performed By: #### U MICRO, ERUR #### [facility] [address] [address] [address] Kirk García SEG % 73.0 % Normal 43.0-75.0 [facility] Comment on above: Performed By: #### U MICRO, ERUR #### [facility] [address] [place] [address] Dr. Kirk García TOXIC GRANULATION 2+ Normal [facility] Comment on above: Performed By: #### U MICRO, ERUR #### [facility] [address] [address] [address] Kirk García WBC 13.5 103/ul Critically high 4.0-11.0 [facility] Comment on above: Performed By: #### U MICRO, ERUR #### [facility] [address] [place] [address] Dr. Kirk García PROF 14(COMP METB)on 022 Albumin [Mass/Vol] 3.0 g/dL Critically low 3.4-5.0 [facility] Comment on above: Performed By: #### C MP #### [facility] [address] [place] [address] Dr. Kirk García Albumin/Globulin [Mass ratio] 0.8 {ratio} Normal [facility] Comment on above: Performed By: #### C MP #### [facility] [address] [place] [address] Dr. Kirk García ALP [Catalytic activity/Vol] 81 U/L Normal 46-116 [facility] Comment on above: Performed By: #### C MP #### [facility] [address] [place] [address] Dr. Kirk García ALT [Catalytic activity/Vol] 50 U/L Normal 16-63 [facility] Comment on above: Performed By: #### C MP #### [facility] [address] [place] [address] Dr. Kirk García Anion gap [Moles/Vol] 8.2 mmol/L Normal [facility] Comment on above: Performed By: #### C MP #### [facility] [address] [place] [address] Dr. Kirk García AST [Catalytic activity/Vol] 14 U/L Critically low 15-37 [facility] Comment on above: Performed By: #### C MP #### [facility] [address] [place] [address] Dr. Kirk García Bilirubin [Mass/Vol] 0.9 mg/dL Normal 0.2-1.0 [facility] Comment on above: Performed By: #### C MP #### [facility] [address] [address] [address] Kirk García Calcium [Mass/Vol] 9.3 mg/dL Normal 8.5-10.1 [facility] Comment on above: Performed By: #### C MP #### [facility] [address] [address] [address] Kirk García Chloride [Moles/Vol] 100 mmol/L Normal 98-107 [facility] Comment on above: Performed By: #### C MP #### [facility] [address] [address] [address] Kirk García CO2 [Moles/Vol] 33.1 mmol/L Critically high 21.0-32.0 [facility] Comment on above: Performed By: #### C MP #### [facility] [address] [place] [address] Dr. Kirk García Creatinine [Mass/Vol] 1.56 mg/dL Critically high 0.70-1.30 [facility] Comment on above: Performed By: #### C MP #### [facility] [address] [address] [address] Kirk García EGFR-AF LITHUANIAN 51 mL/min/1.73m2 Critically low >=60 [facility] Comment on above: Performed By: #### C MP #### [facility] [address] [address] [address] Kirk García EGFR-NON AF LITHUANIAN 42 mL/min/1.73m2 Critically low >=60 [facility] Comment on above: Performed By: #### C MP #### [facility] [address] [address] [address] Kirk García Globulin (S) [Mass/Vol] 3.7 g/dL Normal [facility] Comment on above: Performed By: #### C MP #### [facility] [address] [address] [address] Kirk García Glucose [Mass/Vol] 107 mg/dL Critically high 74-106 [facility] Comment on above: Performed By: #### C MP #### [facility] [address] [address] [address] Kirk García Potassium [Moles/Vol] 5.3 mmol/L Critically high 3.5-5.1 [facility] Comment on above: Performed By: #### C MP #### [facility] [address] [address] [address] Kirk García Protein [Mass/Vol] 6.7 g/dL Normal 6.4-8.2 [facility] Comment on above: Performed By: #### C MP #### [facility] [address] [address] [address] Kirk García Sodium [Moles/Vol] 136 mmol/L Normal 136-145 [facility] Comment on above: Performed By: #### C MP #### [facility] [address] [address] [address] Kirk García Urea nitrogen [Mass/Vol] 50.0 mg/dL Critically high 7.0-18.0 [facility] Comment on above: Performed By: #### C MP #### [facility] [address] [address] [address] Kirk García Urea nitrogen/Creatinin e [Mass ratio] 32.1 mg/mg Normal [facility] Comment on above: Performed By: #### C MP #### [facility] [address] [address] [address] Kirk García CULTURE URINEon 08-14-2022 CULTURE URINE Culture Observations : NO GROWTH. Normal [facility] Comment on above: Performed By: #### U MICRO, ERUR #### [facility] [address] [address] [address] Kirk García ER URINE PROFILEon 2 Bilirubin Ql (U) Negative Normal NEGATIVE [facility] Comment on above: Performed By: #### U MICRO, ERUR #### [facility] [address] [address] [address] Kirk García Clarity (U) CLEAR Normal CLEAR [facility] Comment on above: Performed By: #### U MICRO, ERUR #### [facility] [address] [address] [address] Kirk García Color (U) ORANGE Abnormal YELLOW [facility] Comment on above: Performed By: #### U MICRO, ERUR #### [facility] [address] [place] [address] Dr. Kirk GRUBBS A micrscopic examination will be performed if indicated. Normal [facility] Comment on above: Performed By: #### U MICRO, ERUR #### [facility] [address] [address] [address] Kirk García Glucose Ql (U) Negative Normal NEGATIVE [facility] Comment on above: Performed By: #### U MICRO, ERUR #### [facility] [address] [place] [address] Dr. Kirk García Hemoglobin Ql (U) LARGE Abnormal NEGATIVE [facility] Comment on above: Performed By: #### U MICRO, ERUR #### [facility] [address] [place] [address] Dr. Kirk García Ketones Ql (U) TRACE Abnormal NEGATIVE [facility] Comment on above: Performed By: #### U MICRO, ERUR #### [facility] [address] [place] [address] Dr. Kirk García LEUKOCYTES MODERATE Abnormal NEGATIVE [facility] Comment on above: Performed By: #### U MICRO, ERUR #### [facility] [address] [place] [address] Dr. Kirk García Nitrite Ql (U) Negative Normal NEGATIVE [facility] Comment on above: Performed By: #### U MICRO, ERUR #### [facility] [address] [place] [address] Dr. Kirk García pH (U) 5.5 [pH] Normal 5-9 [facility] Comment on above: Performed By: #### U MICRO, ERUR #### [facility] [address] [place] [address] Dr. Kirk García Protein (U) [Mass/Vol] 100 mg/dL Abnormal NEGATIVE/ TRACE [facility] Comment on above: Performed By: #### U MICRO, ERUR #### [facility] [address] [address] [address] Kirk García SPEC GRAVITY 1.025 Normal 1.005-<=1.025 [facility] Comment on above: Performed By: #### U MICRO, ERUR #### [facility] [address] [place] [address] Dr. Kirk García UR MICRO IND INDICATED Normal [facility] Comment on above: Performed By: #### U MICRO, ERUR #### [facility] [address] [place] [address] Dr. Kirk García Urobilinogen Qn (U) 1.0 {Ryan'U}/dL Normal 0.2 - 1.0 [facility] Comment on above: Performed By: #### U MICRO, ERUR #### [facility] [address] [place] [address] Dr. Kirk García URINE MICROSCOPIC ONLYon BACTERIA SMALL Abnormal NONE SEEN [facility] Comment on above: Performed By: #### U MICRO, ERUR #### [facility] [address] [place] [address] Dr. Kirk García Bacteria identified Cx Nom (U) INDICATED Normal [facility] Comment on above: Performed By: #### U MICRO, ERUR #### [facility] [address] [place] [address] Dr. Kirk García CAST NONE SEEN Normal NONE SEEN [facility] Comment on above: Performed By: #### U MICRO, ERUR #### [facility] [address] [place] [address] Dr. Kirk García Crystals LM Nom (Urine sed) NONE SEEN Normal NONE SEEN [facility] Comment on above: Performed By: #### U MICRO, ERUR #### [facility] [address] [place] [address] Dr. Kirk García Epithelial cells LM Ql (Urine sed) RARE Normal NONE SEEN /RARE [facility] Comment on above: Performed By: #### U MICRO, ERUR #### [facility] [address] [place] [address] Dr. Kirk García MUCOUS NONE SEEN Normal NONE SEEN [facility] Comment on above: Performed By: #### U MICRO, ERUR #### [facility] [address] [address] [address] Kirk García RBC 75-100 Abnormal 0-2 [facility] Comment on above: Performed By: #### U MICRO, ERUR #### [facility] [address] [address] [address] Kirk García WBC 50-75 Abnormal NONE SEEN [facility] Comment on above: Performed By: #### U MICRO, ERUR #### [facility] [address] [address] [address] Kirk García XR KNEE WILBER 4V [...] ANA DALAL Date: 2022-08-14 21:09 Normal [facility] CBC W MANUAL DIFFon 08-04-20 22 ATYPICAL LYMPH # Normal [facility] Comment on above: Performed By: #### C CHRISTOPHER #### [facility] [address] [address] [address] Kirk García ATYPICAL LYMPH % Normal [facility] Comment on above: Performed By: #### C BCMAN #### [facility] [address] [address] [address] Kirk García BAND # 0.0 103/ul Normal 0.0-0.3 [facility] Comment on above: Performed By: #### C CHRISTOPHER #### [facility] [address] [address] [address] Kirk García BAND % 1 % Normal 0-5 [facility] Comment on above: Performed By: #### C CHRISTOPHER #### [facility] [address] [address] [address] Kirk García BASOM # 0.00 103/ul Normal 0.00-0.10 [facility] Comment on above: Performed By: #### C BCMAN #### [facility] [address] [place] [address] Dr. Kirk García BASOM % 0.0 % Critically low 0.2-2.[address] [facility] Comment on above: Performed By: #### C BCMAN #### [facility] [address] [address] [address] Kirk García BLAST # Normal [facility] Comment on above: Performed By: #### C BCLEILA #### [facility] [address] [place] [address] Dr. Kirk García BLAST % Normal [facility] Comment on above: Performed By: #### C BCLEILA #### [facility] [address] [place] [address] Dr. Kirk García CORRECTED WBC Normal 4.0-11.0 [facility] Comment on above: Performed By: #### C BCLEILA #### [facility] [address] [place] [address] Dr. Kirk García EOS # 0.00 103/ul Normal 0.00-0.70 [facility] Comment on above: Performed By: #### C BCLEILA #### [facility] [address] [place] [address] Dr. Kirk García EOS% 0.0 % Critically low 0.9-7.0 [facility] Comment on above: Performed By: #### C BCMAN #### [facility] [address] [place] [address] Dr. Kirk García HCT 31.0 % Critically low 42.0-54.0 [facility] Comment on above: Performed By: #### C BCMAN #### [facility] [address] [place] [address] Dr. Kirk García HGB 10.5 g/dl Critically low 14.0-18.0 [facility] Comment on above: Performed By: #### C BCMAN #### [facility] [address] [address] [address] Kirk García LYMPHM # 0.31 103/ul Critically low 1.20-3.80 [facility] Comment on above: Performed By: #### C CHRISTOPHER #### [facility] [address] [address] [address] Kirk García LYMPHM% 11.0 % Critically low 20.5-60.[address] [facility] Comment on above: Performed By: #### C CHRISTOPHER #### [facility] [address] [address] [address] Kirk García MCH 34.2 pg Critically high 25.9-34.0 [facility] Comment on above: Performed By: #### C CHRISTOPHER #### [facility] [address] [place] [address] Dr. Kirk García MCHC 33.9 g/dl Normal 29.9-35.2 [facility] Comment on above: Performed By: #### C CHRISTOPHER #### [facility] [address] [address] [address] Kirk García MCV 101.0 fL Critically high 80.0-94.0 [facility] Comment on above: Performed By: #### C CHRISTOPHER #### [facility] [address] [place] [address] Dr. Kirk García METAMYELOCYTE # 0.1 103/ul Normal [facility] Comment on above: Performed By: #### C CHRISTOPHER #### [facility] [address] [address] [address] Kirk García METAMYELOCYTE % 2 % Normal [facility] Comment on above: Performed By: #### C CHRISTOPHER #### [facility] [address] [address] [address] Kirk García MONOM# 0.03 103/ul Critically low 0.30-0.80 [facility] Comment on above: Performed By: #### C CHRISTOPHER #### [facility] [address] [address] [address] Kirk García MONOM% 1.0 % Critically low 1.7-12.[address] [facility] Comment on above: Performed By: #### C CHRISTOPHER #### [facility] [address] [place] [address] Dr. Kirk García MPV 10.7 fL Normal 9.5-13.5 [facility] Comment on above: Performed By: #### C CHRISTOPHER #### [facility] [address] [place] [address] Dr. Kirk García MYELOCYTE # 0.0 103/ul Normal [facility] Comment on above: Performed By: #### C CHRISTOPHER #### [facility] [address] [place] [address] Dr. Kirk García MYELOCYTE % 1 % Normal [facility] Comment on above: Performed By: #### Jailene WHITE #### [facility] [address] [place] [address] Dr. Kirk García NRBC Normal [facility] Comment on above: Performed By: #### Jailene WHITE #### [facility] [address] [place] [address] Dr. Kirk García PLT 84 103/ul Critically low 150-[address] [facility] Comment on above: Performed By: #### C CHRISTOPHER #### [facility] [address] [place] [address] Dr. Kirk García RBC 3.07 106/ul Critically low 4.70-6.10 [facility] Comment on above: Performed By: #### C CHRISTOPHER #### [facility] [address] [place] [address] Dr. Kirk García RDW 13.3 % Normal 11.0-15.0 [facility] Comment on above: Performed By: #### C CHRISTOPHER #### [facility] [address] [place] [address] Dr. Kirk García SEG # 2.35 103/ul Normal 1.40-6.50 [facility] Comment on above: Performed By: #### Jailene WHITE #### [facility] [address] [place] [address] Dr. Kirk García SEG % 84.0 % Critically high 43.0-75.0 [facility] Comment on above: Performed By: #### C CHRISTOPHER #### [facility] [address] [address] [address] Kirk García WBC 2.8 103/ul Critically low 4.0-11.[address] [facility] Comment on above: Performed By: #### C CHRISTOPHER #### [facility] [address] [address] [address] Kirk García PROF CHEM 8 (BAS METB)on Anion gap [Moles/Vol] 9.9 mmol/L Normal [facility] Comment on above: Performed By: #### U MICRO, ERUR #### [facility] [address] [place] [address] Dr. Kirk García Calcium [Mass/Vol] 7.4 mg/dL Critically low 8.5-10.1 [facility] Comment on above: Performed By: #### U MICRO, ERUR #### [facility] [address] [address] [address] Kirk García Chloride [Moles/Vol] 100 mmol/L Normal 98-107 [facility] Comment on above: Performed By: #### U MICRO, ERUR #### [facility] [address] [address] [address] Kirk García CO2 [Moles/Vol] 23.8 mmol/L Normal 21.0-32.0 [facility] Comment on above: Performed By: #### U MICRO, ERUR #### [facility] [address] [address] [address] Kirk García Creatinine [Mass/Vol] 1.43 mg/dL Critically high 0.70-1.30 [facility] Comment on above: Performed By: #### U MICRO, ERUR #### [facility] [address] [place] [address] Dr. Kirk García EGFR-AF LITHUANIAN 57 mL/min/1.73m2 Critically low >=60 [facility] Comment on above: Performed By: #### U MICRO, ERUR #### [facility] [address] [address] [address] iKrk García EGFR-NON AF LITHUANIAN 47 mL/min/1.73m2 Critically low >=60 [facility] Comment on above: Performed By: #### U MICRO, ERUR #### [facility] [address] [address] [address] Kirk García Glucose [Mass/Vol] 148 mg/dL Critically high 74-106 [facility] Comment on above: Performed By: #### U MICRO, ERUR #### [facility] [address] [address] [address] Kirk García Potassium [Moles/Vol] 4.7 mmol/L Normal 3.5-5.1 [facility] Comment on above: Performed By: #### U MICRO, ERUR #### [facility] [address] [address] [address] Kirk García Sodium [Moles/Vol] 129 mmol/L Critically low 136-145 [facility] Comment on above: Performed By: #### U MICRO, ERUR #### [facility] [address] [address] [address] Kirk García Urea nitrogen [Mass/Vol] 42.0 mg/dL Critically high 7.0-18.0 [facility] Comment on above: Performed By: #### U MICRO, ERUR #### [facility] [address] [address] [address] Kirk García Urea nitrogen/Creatinin e [Mass ratio] 29.4 mg/mg Normal [facility] Comment on above: Performed By: #### U MICRO, ERUR #### [facility] [address] [address] [address] Kirk García CBC AUTO DIFFon 08-03-2022 BASO # 0.0 103/ul Normal 0.0-0.1 [facility] Comment on above: Performed By: #### C BC #### [facility] [address] [address] [address] Kirk García Basophils/100 WBC (Bld) 0.0 % Critically low 0.2-2.0 [facility] Comment on above: Performed By: #### C BC #### [facility] [address] [place] [address] Dr. Kirk García EO # 0.0 103/ul Normal 0.0-0.7 [facility] Comment on above: Performed By: #### C BC #### [facility] [address] [place] [address] Dr. Kirk García Eosinophils/100 WBC (Bld) 0.2 % Critically low 0.9-7.0 [facility] Comment on above: Performed By: #### C BC #### [facility] [address] [place] [address] Dr. Kirk García Erythrocyte distribution width (RBC) [Ratio] 13.7 % Normal 11.0-15.0 [facility] Comment on above: Performed By: #### C BC #### [facility] [address] [place] [address] Dr. Kirk García Hematocrit (Bld) [Volume fraction] 34.3 % Critically low 42.0-54.0 [facility] Comment on above: Performed By: #### C BC #### [facility] [address] [place] [address] Dr. Kirk García Hemoglobin (Bld) [Mass/Vol] 11.8 g/dL Critically low 14.0-18.0 [facility] Comment on above: Performed By: #### C BC #### [facility] [address] [place] [address] Dr. Kirk García IG # 0.02 10e3/ul Normal 0.00-0.03 [facility] Comment on above: Performed By: #### C BC #### [facility] [address] [place] [address] Dr. Kirk García IG % 0.4 % Normal 0.0-0.5 [facility] Comment on above: Performed By: #### C BC #### [facility] [address] [place] [address] Dr. Kirk García LYMPH # 0.9 103/ul Critically low 1.2-3.8 [facility] Comment on above: Performed By: #### C BC #### [facility] [address] [address] [address] Kirk García Lymphocytes/100 WBC (Bld) 16.5 % Critically low 20.5-60.0 [facility] Comment on above: Performed By: #### C BC #### [facility] [address] [place] [address] Dr. Kirk García MANUAL DIFF REQ NO Normal [facility] Comment on above: Performed By: #### C BC #### [facility] [address] [address] [address] Kirk García MCH (RBC) [Entitic mass] 34.4 pg Critically high 25.9-34.0 [facility] Comment on above: Performed By: #### C BC #### [facility] [address] [place] [address] Dr. Kirk García MCHC (RBC) [Mass/Vol] 34.4 g/dL Normal 29.9-35.2 [facility] Comment on above: Performed By: #### C BC #### [facility] [address] [place] [address] Dr. Kirk García MCV (RBC) [Entitic vol] 100.0 fL Critically high 80.0-94.0 [facility] Comment on above: Performed By: #### C BC #### [facility] [address] [place] [address] Dr. Kirk García MONO # 1.2 103/ul Critically high 0.3-0.8 [facility] Comment on above: Performed By: #### C BC #### [facility] [address] [place] [address] Dr. Kirk García Monocytes/100 WBC (Bld) 22.3 % Critically high 1.7-12.0 [facility] Comment on above: Performed By: #### C BC #### [facility] [address] [place] [address] Dr. Kirk García NEUT # 3.4 103/ul Normal 1.4-6.5 [facility] Comment on above: Performed By: #### C BC #### [facility] [address] [address] [address] Kirk García Neutrophils/100 WBC (Bld) 60.6 % Normal 43.0-75.0 [facility] Comment on above: Performed By: #### C BC #### [facility] [address] [address] [address] Kirk García Platelet mean volume (Bld) [Entitic vol] 11.6 fL Normal 9.5-13.5 [facility] Comment on above: Performed By: #### C BC #### [facility] [address] [address] [address] Kirk García PLT 99 103/ul Critically low 150-[address] [facility] Comment on above: Performed By: #### C BC #### [facility] [address] [place] [address] Dr. Kirk García RBC 3.43 106/ul Critically low 4.70-6.10 [facility] Comment on above: Performed By: #### C BC #### [facility] [address] [address] [address] Kirk García WBC 5.5 103/ul Normal 4.0-11.0 [facility] Comment on above: Performed By: #### C BC #### [facility] [address] [address] [address] Kirk García CULTURE BLOODon 08-03-2022 Microscopic examination of blood, culture Culture Observations: NO GROWTH AT 5 DAYS. Normal [facility] Comment on above: Performed By: #### U MICRO, ERUR #### [facility] [address] [address] [address] Kirk García Microscopic examination of blood, culture Culture Observations: NO GROWTH AT 5 DAYS. Normal [facility] Comment on above: Performed By: #### U MICRO, ERUR #### [facility] [address] [address] [address] Kirk García Covid-19 PCR ([facility])on SARS-CoV-2 (COVID-19) RNA SANAZ+probe Ql (Unsp spec) Detected Critically abnormal NOT DETECTED [facility] Comment on above: Result Comment: This test is not yet approved or cleared by the [place] FDA. When there are no FDA-approved or cleared tests available, and other criteria are met, FDA can make tests available under an emergency access mechanism called an Emergency Use Authorization (EUA). The EUA for this test is supported by the [employer] of Health and Human Service's declaration that [...] used). Performed By: #### C VDTBH #### [facility] [address] [place] [address] Dr. Kirk García GROUP A STREP CULTUREon S. pyogenes Ag Ql (Unsp spec) Culture Observations: NEGATIVE FOR GROUP A STREPTOCOCCUS. Normal [facility] Comment on above: Performed By: #### U MICRO, ERUR #### [facility] [address] [place] [address] Dr. Kirk García PROF 14(COMP METB)on 022 Albumin [Mass/Vol] 3.0 g/dL Critically low 3.4-5.0 Th e [facility] Comment on above: Performed By: #### C MP #### [facility] [address] [place] [address] Dr. Kirk García Albumin/Globulin [Mass ratio] 0.7 {ratio} Normal [facility] Comment on above: Performed By: #### C MP #### [facility] [address] [place] [address] Dr. Kirk García ALP [Catalytic activity/Vol] 76 U/L Normal 46-116 [facility] Comment on above: Performed By: #### C MP #### [facility] [address] [place] [address] Dr. Kirk García ALT [Catalytic activity/Vol] 27 U/L Normal 16-63 [facility] Comment on above: Performed By: #### C MP #### [facility] [address] [address] [address] Kirk García Anion gap [Moles/Vol] 8.9 mmol/L Normal [facility] Comment on above: Performed By: #### C MP #### [facility] [address] [address] [address] Kirk García AST [Catalytic activity/Vol] 17 U/L Normal 15-37 [facility] Comment on above: Performed By: #### C MP #### [facility] [address] [address] [address] Kirk García Bilirubin [Mass/Vol] 1.3 mg/dL Critically high 0.2-1.0 [facility] Comment on above: Performed By: #### C MP #### [facility] [address] [address] [address] Kirk García Calcium [Mass/Vol] 8.1 mg/dL Critically low 8.5-10.1 Th [facility] Comment on above: Performed By: #### C MP #### [facility] [address] [address] [address] Kirk García Chloride [Moles/Vol] 94 mmol/L Critically low 98-107 [facility] Comment on above: Performed By: #### C MP #### [facility] [address] [address] [address] Kirk García CO2 [Moles/Vol] 27.5 mmol/L Normal 21.0-32.0 [facility] Comment on above: Performed By: #### C MP #### [facility] [address] [address] [address] Kirk García Creatinine [Mass/Vol] 1.65 mg/dL Critically high 0.70-1.30 [facility] Comment on above: Performed By: #### C MP #### [facility] [address] [address] [address] Kirk García EGFR-AF LITHUANIAN 48 mL/min/1.73m2 Critically low >=60 [facility] Comment on above: Performed By: #### C MP #### [facility] [address] [address] [address] Kirk García EGFR-NON AF LITHUANIAN 40 mL/min/1.73m2 Critically low >=60 [facility] Comment on above: Performed By: #### C MP #### [facility] [address] [address] [address] Kirk García Globulin (S) [Mass/Vol] 4.5 g/dL Normal [facility] Comment on above: Performed By: #### C MP #### [facility] [address] [address] [address] Kirk García Glucose [Mass/Vol] 118 mg/dL Critically high 74-106 T [facility] Comment on above: Performed By: #### C MP #### [facility] [address] [address] [address] Kirk García Potassium [Moles/Vol] 4.4 mmol/L Normal 3.5-5.1 [facility] Comment on above: Performed By: #### C MP #### [facility] [address] [address] [address] Kirk García Protein [Mass/Vol] 7.5 g/dL Normal 6.4-8.2 [facility] Comment on above: Performed By: #### C MP #### [facility] [address] [address] [address] Kirk García Sodium [Moles/Vol] 126 mmol/L Critically low 136-145 Th [facility] Comment on above: Performed By: #### C MP #### [facility] [address] [address] [address] Kirk García Urea nitrogen [Mass/Vol] 36.0 mg/dL Critically high 7.0-18.0 [facility] Comment on above: Performed By: #### C MP #### [facility] [address] [address] [address] Kirk García Urea nitrogen/Creatinin e [Mass ratio] 21.8 mg/mg Normal [facility] Comment on above: Performed By: #### C MP #### [facility] [address] [address] [address] Kirk García STREPT SCREENon 08-03-2022 STREP SCREEN A Negative Normal NEGATIVE [facility] Comment on above: Performed By: #### U MICRO, ERUR #### [facility] [address] [address] [address] Kirk García XR CHEST 1 Von [...] MILAGROS REEDER Date: 2022-08-03 12:55 Normal [facility] CBC AUTO DIFFon 07-08-2022 BASO # 0.0 103/ul Normal 0.0-0.1 [facility] Comment on above: Performed By: #### C BC #### [facility] [address] [address] [address] Kirk García Basophils/100 WBC (Bld) 0.5 % Normal 0.2-2.0 [facility] Comment on above: Performed By: #### C BC #### [facility] [address] [address] [address] Kirk García EO # 0.1 103/ul Normal 0.0-0.7 [facility] Comment on above: Performed By: #### C BC #### [facility] [address] [address] [address] Kirk García Eosinophils/100 WBC (Bld) 1.4 % Normal 0.9-7.0 [facility] Comment on above: Performed By: #### C BC #### [facility] [address] [place] [address] Dr. Kirk García Erythrocyte distribution width (RBC) [Ratio] 13.4 % Normal 11.0-15.0 [facility] Comment on above: Performed By: #### C BC #### [facility] [address] [place] [address] Dr. Kirk García Hematocrit (Bld) [Volume fraction] 39.6 % Critically low 42.0-54.0 [facility] Comment on above: Performed By: #### C BC #### [facility] [address] [place] [address] Dr. Kirk García Hemoglobin (Bld) [Mass/Vol] 13.2 g/dL Critically low 14.0-18.0 [facility] Comment on above: Performed By: #### C BC #### [facility] [address] [place] [address] Dr. Kirk García IG # 0.02 10e3/ul Normal 0.00-0.03 [facility] Comment on above: Performed By: #### C BC #### [facility] [address] [place] [address] Dr. Kirk García IG % 0.3 % Normal 0.0-0.5 [facility] Comment on above: Performed By: #### C BC #### [facility] [address] [place] [address] Dr. Kirk García LYMPH # 1.7 103/ul Normal 1.2-3.8 [facility] Comment on above: Performed By: #### C BC #### [facility] [address] [place] [address] Dr. Kirk García Lymphocytes/100 WBC (Bld) 28.7 % Normal 20.5-60.0 [facility] Comment on above: Performed By: #### C BC #### [facility] [address] [place] [address] Dr. Kirk García MANUAL DIFF REQ NO Normal [facility] Comment on above: Performed By: #### C BC #### [facility] [address] [address] [address] Kirk García MCH (RBC) [Entitic mass] 34.4 pg Critically high 25.9-34.0 [facility] Comment on above: Performed By: #### C BC #### [facility] [address] [place] [address] Dr. Kirk García MCHC (RBC) [Mass/Vol] 33.3 g/dL Normal 29.9-35.2 [facility] Comment on above: Performed By: #### C BC #### [facility] [address] [place] [address] Dr. Kirk García MCV (RBC) [Entitic vol] 103.1 fL Critically high 80.0-94.0 [facility] Comment on above: Performed By: #### C BC #### [facility] [address] [place] [address] Dr. Kirk García MONO # 0.9 103/ul Critically high 0.3-0.8 [facility] Comment on above: Performed By: #### C BC #### [facility] [address] [place] [address] Dr. Kirk García Monocytes/100 WBC (Bld) 15.8 % Critically high 1.7-12.0 [facility] Comment on above: Performed By: #### C BC #### [facility] [address] [place] [address] Dr. Kirk García NEUT # 3.1 103/ul Normal 1.4-6.5 [facility] Comment on above: Performed By: #### C BC #### [facility] [address] [place] [address] Dr. Kirk García Neutrophils/100 WBC (Bld) 53.3 % Normal 43.0-75.0 [facility] Comment on above: Performed By: #### C BC #### [facility] [address] [place] [address] Dr. Kirk García Platelet mean volume (Bld) [Entitic vol] 10.6 fL Normal 9.5-13.5 [facility] Comment on above: Performed By: #### C BC #### [facility] [address] [address] [address] Kirk García PLT 147 103/ul Critically low 150-450 [facility] Comment on above: Performed By: #### C BC #### [facility] [address] [address] [address] Kirk García RBC 3.84 106/ul Critically low 4.70-6.10 [facility] Comment on above: Performed By: #### C BC #### [facility] [address] [address] [address] Kirk García WBC 5.9 103/ul Normal 4.0-11.0 [facility] Comment on above: Performed By: #### C BC #### [facility] [address] [place] [address] Dr. Kirk García DIGOXINon 07-08-2022 DIG 1.1 ng/mL Normal 0.9-2.0 [facility] Comment on above: Performed By: #### U MICRO, ERUR #### [facility] [address] [place] [address] Dr. Kirk García PROF CHEM 8 (BAS METB)on Anion gap [Moles/Vol] 13.6 mmol/L Normal [facility] Comment on above: Performed By: #### U MICRO, ERUR #### [facility] [address] [place] [address] Dr. Kirk García Calcium [Mass/Vol] 9.5 mg/dL Normal 8.5-10.1 [facility] Comment on above: Performed By: #### U MICRO, ERUR #### [facility] [address] [place] [address] Dr. Kirk García Chloride [Moles/Vol] 97 mmol/L Critically low 98-107 [facility] Comment on above: Performed By: #### U MICRO, ERUR #### [facility] [address] [place] [address] Dr. Kirk García CO2 [Moles/Vol] 28.8 mmol/L Normal 21.0-32.0 [facility] Comment on above: Performed By: #### U MICRO, ERUR #### [facility] [address] [address] [address] Kirk García Creatinine [Mass/Vol] 1.43 mg/dL Critically high 0.70-1.30 [facility] Comment on above: Performed By: #### U MICRO, ERUR #### [facility] [address] [address] [address] Kirk García EGFR-AF LITHUANIAN 57 mL/min/1.73m2 Critically low >=60 [facility] Comment on above: Performed By: #### U MICRO, ERUR #### [facility] [address] [address] [address] Kirk García EGFR-NON AF LITHUANIAN 47 mL/min/1.73m2 Critically low >=60 [facility] Comment on above: Performed By: #### U MICRO, ERUR #### [facility] [address] [address] [address] Kirk García Glucose [Mass/Vol] 99 mg/dL Normal 74-106 [facility] Comment on above: Performed By: #### U MICRO, ERUR #### [facility] [address] [address] [address] Kirk García Potassium [Moles/Vol] 4.4 mmol/L Normal 3.5-5.1 [facility] Comment on above: Performed By: #### U MICRO, ERUR #### [facility] [address] [address] [address] Kirk García Sodium [Moles/Vol] 135 mmol/L Critically low 136-145 Th [facility] Comment on above: Performed By: #### U MICRO, ERUR #### [facility] [address] [address] [address] Kirk García Urea nitrogen [Mass/Vol] 29.0 mg/dL Critically high 7.0-18.0 [facility] Comment on above: Performed By: #### U MICRO, ERUR #### [facility] [address] [address] [address] Kirk García Urea nitrogen/Creatinin e [Mass ratio] 20.3 mg/mg Normal [facility] Comment on above: Performed By: #### U MICRO, ERUR #### [facility] [address] [place], [place] [address] Dr. Kirk García Patient Educationon 03-16-20 Patient [...] Are older than age 65. ? Are -Nicaraguan. ? Are obese. ? Have a family [...] Follow these instructions at home: ? Take tdpd-ttz-ohfcytm and prescription medicines only as told by [...] cancer specialis (more content not included)... Normal [facility] Urology Office/Clinic Noteon 03-16-2022 Urology Office/Clinic Note [...] E&M of Est. Patient Moderate 30-39 Min 70975 Measure Post Void residual urine and/or bladder capacity by US- non-imaging 51220 Urnls Dip Stick Auto w/o Microscopy POC 82574 2. History of prostate cancer (Z85.46: Personal history of malignant neoplasm of prostate) s/p brachytherapy in 2004. PSA remained very low. pt decided to have PCP do annual monitoring when he saw PRW March 2021. Ordered: E&M of Est. Patient Moderate 30-39 Min 80888 Measure Post Void residual urine and/or bladder capacity by US- non-imaging 82347 Urnls Dip Stick Auto w/o Microscopy POC 71041 Orders: oxybutynin, 5 mg = 1 tab(s), Oral, Daily, # 90 tab(s), Refills(s) 3, Pharmacy: [facility], 183, cm, 03/16/22 9:10:00 EDT, Height/Length Dosing, 99.3, kg, 03/16/22 9:10:00 EDT, Weight Dosing Follow-up With When Contact Information MARYBETH COOPER PA-C, LORNA Within 6 months [address] [place] [address] Business (1) Additional Instructions: Patient Education Prostate Cancer 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 Cholecystitis Gross hematuria History of prostate cancer Hyperlipidemia Hypertension senior living current use of antithrombotics/antip latelets Post-void dribbling [...] in lifetime (more content not included)... Normal [facility] Comment on above: Result Comment: Elec tronically [...] Are older than age 65. ? Are -Nicaraguan. ? Are obese. ? Have a family [...] Follow these instructions at home: ? Take royj-hqy-meoodgd and prescription medicines only as told by [...] cancer specialis (more content not included)... Normal [facility] Urology Office/Clinic Noteon 01-06-2022 Urology Office/Clinic Note [...] worsen Ordered: Office Visit Level 4 Est 93787 2. History of prostate cancer (Z85.46: Personal history of malignant neoplasm of prostate) s/p brachytherapy in 2004. PSA remained very low. pt decided to have PCP do annual monitoring when he saw PRW at last visit March 2021. Ordered: Office Visit Level 4 Est 82808 Orders: Urnls Dip Stick Auto w/o Microscopy POC 40572 Total time spent reviewing previous notes/results/externa l [...] hematuria History of prostate cancer Hyperlipidemia Hypertension senior living current use of antithrombotics/antip latelets Post-void dribbling [...] Use:., 02 (more content not included)... Normal [facility] Comment on above: Result Comment: Elec tronically Signed By: MARYBETH COOPER PA-C\.lisa\Date and Time Signed: 01/06/22 16:55 EST [place]ora 07-29-2021 FEDERICON Telephone (Rattle) HEATHSAMSON ([id number]) 1935 M Date Time Provider Department 07/29/21 DALILA RILEY During your visit today, we recorded the following information about you: Dalila Riley RN 07/29/2021 10:36 AM Signed Spoke with Samson, he is currently still at the hotel and is planning on going to the [facility]. We discussed pain control and did remind patient use of Aleve or Motrin in between narcotics as the narcotics can increase issues with constipation. We did discuss use of Miralax if no Bm by Monday and patients states LA will help him with that. Encouraged to keep up with water intake especially since no appetite today. 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 ANES POSTPROC EVALon 021 ANES POSTPROC EVAL HNO ID: [id number] Author: Ramiro Esquivel MD Service: Anesthesiology Author [...] July 28, 2021 TIME: 1:35 PM CSN: [id number] [facility] ANES PRE-OPon 07-28-2021 ANES PRE-OP HNO ID: [id number] Author: Ramiro Esquivel MD Service: Anesthesiology Author [...] none. Vitals Value Taken Time BP 124/63 07/28/21953 Pulse Resp 16 07/28/21953 Temp 36.1 ?C [...] 100 mL Vial-Bag (UNASYN) 3 g INTRAVENOUS Drywall Foreman to OR - [COMPLETED] acetaminophen 1,000 mg [...] July 28, 2021 TIME: 10:17 AM CSN: [id number] [facility] HISTORY PHYSICALon HISTORY PHYSICAL HNO ID: [id number] Author: Jewel Cary III, MD Service: General [...] DATE: July 28, 2021 TIME: 10:16 AM [facility] OPERATIVE NOon 07-28-2021 OPERATIVE NO HNO ID: [id number] Author: Jewel Cary III, MD Service: General Surgery Author Type: Physician Type: Operative Report Filed: 07/28/2021 11:24 AM Note Text: OPERATIVE REPORT LOG ID: [id number] SURGERY/PROCEDURE DATE: 07/28/2021 INCISION/PROCEDURE START TIME: 10:47 AM INCISION CLOSE/PROCEDURE END TIME: 11:24 AM SURGEON: Jewel Cary III, MD ?? DIRECTOR OF PERSONNEL: Monserrat Salazar PA-C? ? OPERATION: Laparoscopic cholecystectomy (50288). ? ANESTHESIA: GETA and 10 mL of [...] July 28, 2021 TIME: 11:22 AM Normal [facility] SURGICAL PATHOLOGYon 021 SURGICAL PATHOLOGY Specimen originated from [facility] Specimen #: [id number] Submitting Physician: JEWEL CARY MD FINAL DIAGNOSIS [...] The mucosa is walker-red, hyperemic, and granular. Bullard Machine Operator sections are submitted as follows: A1 cystic duct margin and wall, A2 fundus. SLE/emigdio 07/28/2021 Gross examination performed at [facility], [address] [place], [place] [id number] Date of Report: 07/29/2021 Date of Procedure: 07/28/2021 Date of Receipt: 07/28/2021 Submitted by: JEWEL CARY MD Location: [facility] Diagnostic interpretation performed at [facility], [address], [facility] [address]. CLIA Number: [id number] Normal [facility] Comment on above: Performed By: #### S #### See report for performing lab information. HISTORY PHYSICALon HISTORY PHYSICAL HNO ID: [id number] Author: Denita Simmons PA-C Service: ? Author Type: Physician Mud Analysis Well Logging Operator Type: HANDP Filed: 07/19/2021 4:18 PM Note [...] in November 2019. He was admitted to [facility] due to Yuni cystitis. Providers at [...] 20's - PACEMAKER 2006 - PACEMAKER 01/2021 [employer] placed - PAST SURGICAL HISTORY OF [...] fevers. Neuro: No history of TIA's, stroke, LAUNDRY WORKER tumor, impaired sensorium, hemiplegia, paraplegia or quadraplegia. No neurological symptoms or problems. Respiratory: Negative for Asthma, Dyspnea, Tobacco Use, URI < 2 weeks +PND - can rarely trigger cough, but stable, no acute symptoms Cardiovascular: +Pacemaker ([employer] scien) - A-fib hx, CHB no symptoms +Heart failure - on digoxin, Lasix. Chronic lower extremity edema. +Valve history - s/p Mitral and tricuspid repair 2016 - Dr. Ulysses Duran - Ra (more content not included)... Normal [facility] CNCOon 07-13-2021 CNCO Letter Text Normal [facility] CNPNon 07-13-2021 CNPN Telephone (GENSAV) SAMSON JOE ([id number]) 1935 M Date Time Provider Department 07/13/21 [...] by routing message back to Angel ROSARIO FAMILY DINNER SERVICE SPECIALIST, prior to notifying the patient. Marybeth Laureano 07/13/2021 1:53 PM Signed Pt seeing Zach Duran @ [place] [address] Will send clearance to this provider Cat Gibbs 07/15/2021 11:03 AM Signed Cari from Alondra Duran's office called and asked to have clearance letter fax to [phone]. Thank you. Marybeth Laureano 07/15/2021 11:21 AM [...] cancel and reschedule patient. Thank you. Marybeth Georgi 07/19/2021 3:01 PM Signed Spoke w pt [...] Ayala - Fully Assessed Reason for Visit: Cardiac [...] cholecystitis [K81.0] 12/05/2019 12/09/2019 Encounter Status:Closed by GEORGIMARYBETH on 07/13/21 [facility] [place]ora 07-12-2021 CNPN Telephone (GENSAV) HEATHSAMSON ([id number]) 1935 M Date Time Provider Department 07/12/21 JEWEL CARY III GENAKOSUA During your visit today, we recorded the following information about you: Marybeth Godoyn 07/13/2021 2:08 PM Addendum Cur received Pt needs cardiac clearance Dr Kody Lynn Tele enct sent Spoke w pt he now sees Dr Ulysses Duran at [facility]. Letter electronically sent. Marybeth Godoyn 07/13/2021 3:25 PM Signed electronic faxed failed printed and sent to verified fax number of [phone]. Confirmed received. Marybeth Georgi 07/19/2021 3:02 PM Signed PACC received clearance from Dr Duran. Pt cleared scheduled 07-28-21 Allergies As of Date: 07/12/2021 (No Known Allergies) Date Reviewed: 12/08/2019 Reviewed by: Katherine Oconnell) DORIAN Ayala - Fully Assessed Reason for [...] Status:Closed by MARYBETH LAUREANO on 07/19/[address] [facility] HISTORY PHYSICALon HISTORY PHYSICAL HNO ID: [id number] Author: Jewel Cary III, MD Service: ? [...] for internal providers or letter via the [employer] for external providers. HISTORY: He [...] stored in (more content not included)... Normal [facility] OPERATIVE REPORTon OPERATIVE REPORT NAME: SAMSON JOE MR#: [id number] SURGEON: Ulysses Duran MD DATE OF SURGERY: 02/01/2021 OPERATIVE REPORT PREOPERATIVE DIAGNOSIS: End of life pacemaker pulse generator. POSTOPERATIVE DIAGNOSIS: End of life pacemaker pulse generator. PROCEDURE: Change out of end of life pacemaker pulse generator. 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 The new pulse generator is a [employer] Accolade MRI safe pacemaker, model #L311 serial #[id number]. The pulse generator was attached to the [...] end of the day today. MD GLORIA KAHN/RAINAL/[id number] 0920 E/S: Ulysses Duran MD 02/08/21 0856 Electronically Signed [facility] PT NAME: SAMSON JOE MR#: [id number] [address] [place] [address] ACCT: [id number] : [birth year] OPERATIVE REPORT Normal [facility] SURGon 02-01-2021 SURG Normal [facility] Comment on above: Result Comment: RUN DATE: 02/02/21 [facility] LAB *LIVE* PAGE 1RUN TIME: 1351 Specimen InquiryRUN USER: [employer] Name: SAMSON JOE : [birth year] Sex:M Attend Dr: Ulysses Duran [facility]#: [id number] Unit#: [id number] Status: [facility] Location: ANA MARIA [id number] Received: 02/01/21-1320 Status: PRIYANKA Patterson#: [id number]#: [id number] Collected: 02/01/21-[address] [facility] [address]: Ulysses Duran MDTISSUES: A. EXPLANTED HARDWARE MICROSCOPIC EXAM: N/A DIAGNOSIS: EXPLANTED HARDWARE, REMOVAL: - PULSE GENERATOR (GROSS DIAGNOSIS ONLY) Signed Signature on File KT SCHAFER 02/02/21 1351 [facility] Name: [facility] Hosp Num: [id number] A Ministry of Age / Sex: 85/M [facility] Physician: Ulysses Duran MD Count includes the [facility] [place] [address] Location: SAME DAY SURGERY END OF REPORT Performed By: #### P SURG ####Test performed at: [place] [address] Vital Signs Date Time Vital Sign Value Performing Clinician Facility 11-22-2023 10:00-0500 Body height 182.88 cm Timo Bar Other [facility] Other 11-22-2023 10:00-0500 Body mass index (BMI) [Ratio] 28.67 kg/m2 Timo Bar Other [facility] Other 11-22-2023 10:00-0500 Body weight 95.89 kg Timo Ball Other [facility] Other 11-22-2023 10:00-0500 Diastolic blood pressure 64 mm[Hg] Timo Ball Other [facility] Other 11-22-2023 10:00-0500 Respiratory rate 16 /min Timo Ball Other [facility] Other 11-22-2023 10:00-0500 SaO2% (BldA) [Mass fraction] 95 % Timo Ball Other [employer] Other 11-22-2023 10:00-0500 Systolic blood pressure 102 mm[Hg] Timo Ball Other [employer] Other 10-03-2023 13:45-0500 Body height 182.88 cm Timo Ball Other [employer] Other 10-03-2023 13:45-0500 Body mass index (BMI) [Ratio] 29.02 kg/m2 Timo Ball Other [employer] Other 10-03-2023 13:45-0500 Body weight 97.07 kg Timo Ball Other [employer] Other 10-03-2023 13:45-0500 Diastolic blood pressure 67 mm[Hg] Timo Ball Other [employer] Other 10-03-2023 13:45-0500 Respiratory rate 16 /min Timo Ball Other [employer] Other 10-03-2023 13:45-0500 Systolic blood pressure 106 mm[Hg] Timo Ball Other [employer] Other 09-29-2023 13:45-0400 Body height 182.88 cm Timo Ball Other [employer] Other 08-31-2023 11:00-0400 Body height 182.88 cm Timo Ball Other [employer] Other 08-31-2023 11:00-0400 Body mass index (BMI) [Ratio] 28.23 kg/m2 Timo Ball Other [employer] Other 08-31-2023 11:00-0400 Body weight 94.44 kg Timo Ball Other [facility] Other 08-31-2023 11:00-0400 Diastolic blood pressure 61 mm[Hg] Timo Ball Other [employer] Other 08-31-2023 11:00-0400 Respiratory rate 12 /min Timo Ball Other [employer] Other 08-31-2023 11:00-0400 Systolic blood pressure 105 mm[Hg] Timo Ball Other [employer] Other 05-26-2023 11:00-0400 Body height 182.88 cm Timo Ball Other [facility] Other 05-26-2023 11:00-0400 Body mass index (BMI) [Ratio] 28.69 kg/m2 Timo Ball Other [employer] Other 05-26-2023 11:00-0400 Body weight 95.98 kg Timo Ball Other [facility] Other 05-26-2023 11:00-0400 Diastolic blood pressure 66 mm[Hg] Timo Ball Other [employer] Other 05-26-2023 11:00-0400 Respiratory rate 16 /min Timo Ball Other [place] [employer] Other 05-26-2023 11:00-0400 Systolic blood pressure 116 mm[Hg] Timo Ball Other [employer] Other 01-20-2023 11:00-0500 Body height 182.88 cm Timo Ball Other [facility] Other 01-20-2023 11:00-0500 Body mass index (BMI) [Ratio] 28.53 kg/m2 Timo Ball Other [facility] Other 01-20-2023 11:00-0500 Body weight 95.44 kg Timo Ball Other [facility] Other 01-20-2023 11:00-0500 Diastolic blood pressure 64 mm[Hg] Timo Ball Other [employer] Other 01-20-2023 11:00-0500 Respiratory rate 16 /min Timo Ball Other [employer] Other 01-20-2023 11:00-0500 Systolic blood pressure 102 mm[Hg] Timo Ball Other [place] [employer] Other 09-21-2022 12:18-0400 Blood Pressure Location MARYBETH MOTARY [facility] 09-21-2022 12:18-0400 Diastolic blood pressure 58 mm[Hg] MARYBETH KENNETH [facility] 09-21-2022 12:18-0400 Heart rate 80 /min MARYBETH KENNETH [facility] 10-26-2022 12:18-0400 Respiratory rate 16 /min MARYBETH COOPER [facility] 09-21-2022 12:18-0400 Systolic blood pressure 111 mm[Hg] MARYBETH COOPER [facility] 03-16-2022 08:49-0400 Blood Pressure Location MARYBETH COOPER [facility] [place] 03-16-2022 08:49-0400 Diastolic blood pressure 65 mm[Hg] MARYBETH COOPER [facility] [place] 03-16-2022 08:49-0400 Heart rate 75 /min MARYBETH COOPER [facility] [place] 03-16-2022 08:49-0400 Systolic blood pressure 93 mm[Hg] MARYBETH COOPER [facility] [place] Encounters Encounter Date Encounter Type Care Provider Facility Start: 12-29-2023 End: 12-29-2023 ambulatory Timo Bar Other [employer] Other Start: 12-29-2023 Telephone encounter Timo DIEGO [facility] Start: 12-26-2023 End: 12-26-2023 ambulatory EDDIE WEISS Not Available Start: 12-20-2023 End: 12-20-2023 ambulatory Timo Bar Other [employer] Other Start: 12-20-2023 Telephone encounter Timo Olivas [facility] Start: 12-15-2023 End: 12-15-2023 ambulatory Timo Bar Other [employer] Other Start: 12-15-2023 Telephone encounter Timo Bar [facility] Start: 12-11-2023 End: 12-11-2023 ambulatory Timo Bar Other [employer] Other Start: 12-11-2023 Telephone encounter Timo Bar [facility] Start: 12-05-2023 End: 12-05-2023 ambulatory Timo Bar Other [facility] Other Start: 12-05-2023 Telephone encounter Timo Bar [facility] Start: 11-22-2023 End: 11-22-2023 ambulatory Timo Penny Other [employer] Other Start: 11-22-2023 Telephone encounter Timo Bar [facility] Start: 11-22-2023 [facility] discharge Timo Bar [facility] Start: 11-17-2023 End: 11-17-2023 ambulatory Timo Bar Other [facility] Other Start: 11-17-2023 Telephone encounter Timo Bar [facility] Start: 10-04-2023 End: 10-04-2023 ambulatory Timo Bar Other [facility] Other Start: 10-04-2023 Telephone encounter Timo Bar [facility] Start: 10-03-2023 End: 10-03-2023 ambulatory Timo Bar Other [facility] Other Start: 10-03-2023 Office outpatient vi sit 15 minutes Timo Ball [facility] Start: 09-29-2023 End: 09-29-2023 ambulatory Timo Ball Other [facility] Other Start: 09-29-2023 Nursing evaluation o f patient and report Timo Bar [facility] Start: 09-06-2023 End: 09-06-2023 ambulatory Timo Ball Other [facility] Other Start: 09-06-2023 Telephone encounter Timo Bar [facility] Start: 08-31-2023 End: 08-31-2023 ambulatory Timo Bar Other [facility] Other Start: 08-31-2023 Patient encounter procedure Timo Bar [facility] Start: 05-26-2023 End: 05-26-2023 ambulatory Timo Bar Other [facility] Other Start: 05-26-2023 Office outpatient vi sit 25 minutes Timo Bar [facility] Start: 05-02-2023 End: 05-02-2023 ambulatory [facility] Start: 04-17-2023 End: 04-17-2023 ambulatory JUAN LUIS [facility] Start: 01-20-2023 End: 01-20-2023 ambulatory Timo Bar Other [facility] Other Start: 01-20-2023 Office outpatient vi sit 25 minutes Timo Bar [facility] Start: 09-21-2022 End: 09-22-2022 ambulatory MARYBETH COOPER Facility:[facility] [place] Start: 09-21-2022 End: 09-21-2022 Patient encounter procedure MARYBETH COOPER [facility] Start: 09-06-2022 End: 09-07-[address] TIMO BAR Facility:[facility] Start: 08-14-2022 End: 08-15-[address] TIMO BAR Facility:[facility] Start: 08-03-2022 End: 08-04-[address] TIMO BAR Facility:[facility] Start: 07-08-2022 End: 07-09-[address] TIMO BAR Facility:[facility] Start: 03-16-2022 End: 03-17-2022 ambulatory MARYBETH COOPER Facility:[facility] [place] Start: 03-16-2022 End: 03-16-2022 Patient encounter procedure MARYBETH COOPER [facility] Start: 01-06-2022 End: 01-07-2022 ambulatory MARYBETH COOPER Facility:[facility] Start: 01-05-2022 ambulatory MARYBETH COOPER Facility : [place] Start: 12-07-2018 Patient encounter procedure Facility:[id number] Start: 12-06-2018 Patient encounter procedure Facility:[id number] Procedures Date Procedure Procedure Detail Performing Clinician Start: 07-08-[address] CURRIE IN [place] Comment on above: Performed By: #### U MICRO, ERUR #### [facility] [address] [place] [address] Dr. Kirk García Start: 07-28-2021 Cholecystectomy SHADIA COOPER Start: 11-27-2006 Colonoscopy MARYBETH Angel GRAVES Start: 11-27-2004 Implantation of radi oactive seed into prostate MARYBETH COOPER Repair of right ingu inal hernia MARYBETH COOPER Transrectal biopsy o f prostate using ultrasound guidance MARYBETH COOPER Immunizations Immunization Date Immunization Notes Care Provider Dari pérez 09-29-2023 influenza, high dose seasonal, preservative-free Timo Bar Other [facility] Other 09-07-2022 influenza virus vaccine, split virus (incl. purified surface antigen) Timo Bar Other [facility] Other 04-26-2022 SARS-CoV-2 mRNA (tgvplyprodk-rnjh-jrxsc se) vaccine MARYBETH COOPER [facility] 09-02-2021 SARS-CoV-2 (COVID-19 ) mRNA BNT-162b2 vax MARYBETH COOPER [facility] 08-18-2021 influenza virus vaccine, unspecified formulation MARYBETHKOURTNEY COOPER [facility] 08-13-2021 influenza virus vaccine, split virus (incl. purified surface antigen) Timo Bar Other [facility] Other 02-23-2021 SARS-CoV-2 (COVID-19 ) mRNA BNT-162b2 vax MARYBETH COOPER [facility] 02-03-2021 SARS-CoV-2 (COVID-19 ) mRNA BNT-162b2 vax MARYBETH COOPER [facility] Comment on above: Result Comment: 2021: [id number] 01-25-2021 SARS-CoV-2 (COVID-19 ) mRNA BNT-162b2 vax MARYBETH COOPER [facility] 08-31-2020 influenza virus vaccine, split virus (incl. purified surface antigen) Timo Bar Other [facility] Other 08-30-2019 influenza virus vaccine, split virus (incl. purified surface antigen) Timo Bar Other [facility] Other 08-30-2019 influenza virus vaccine, unspecified formulation MARYBETH COOPER [facility] 08-29-2018 influenza virus vaccine, split virus (incl. purified surface antigen) Timo Bar Other [facility] Other 08-29-2018 influenza virus vaccine, unspecified formulation MARYBETHVANI COOPER [facility] 08-03-2017 influenza virus vaccine, split virus (incl. purified surface antigen) Timo Penny Other [facility] Other 08-03-2017 influenza virus vaccine, unspecified formulation MARYBETH COOPER [facility] 09-05-2016 influenza virus vaccine, split virus (incl. purified surface antigen) Timo Penny Other [facility] Other 09-05-2016 influenza virus vaccine, unspecified formulation MARYBETH COOPER [facility] 10-16-2015 pneumococcal conjuga te vaccine, 13 valent Timo Bar Other [employer] Other 09-01-2015 influenza virus vaccine, split virus (incl. purified surface antigen) Timo Bar Other [employer] Other 09-15-2014 tetanus and diphther ia toxoids, adsorbed, preservative free, for adult use (5 Lf of tetanus toxoid and 2 Lf of diphtheria toxoid) Timo Bar Other [facility] Other 08-27-2013 tetanus and diphther ia toxoids, adsorbed, preservative free, for adult use (5 Lf of tetanus toxoid and 2 Lf of diphtheria toxoid) Timo Bar Other [employer] Other 01-10-2007 pneumococcal polysaccharide vaccine, 23 valent Timo Bar Other [facility] Other 1999 pneumococcal polysaccharide vaccine, 23 valent MARYBETH COOPER [facility] Payers Date Payer Category Payer Unknown [id number] 1960 Medicare [id number] 1960 Unknown [id number] 1935 Unknown [id number] 2.16. [id number] 1934 Unknown [id number] 2.16. [id number] 1934 Unknown [id number] 2.16.8 [id number] 1934 Unknown [id number] 2.16.8 [id number] 1934 Unknown [id number] 2.16.8 [id number] 1934 Unknown [id number] 2.16.8 [id number] 1934 Unknown [id number] 2.16.8 40.1.672973.3.579.2.727 1934 Unknown [id number] 2.16.84 0.1.782707.3.579.2.593 1934 Unknown [id number] 2.16.84 0.1.302019.3.579.2.593 1934 Unknown [id number] 2.16.84 0.1.251094.3.579.2.593 1934 Unknown [id number] 2.16.84 [id number] 1934 Unknown [id number] 2.16.84 [id number] Medicare [id number] Unknown [id number] 2.16.8 [id number] Social History Date Type Detail Facility Start: 03-16-2022 End: 09-21-2022 Tobacco smoking status Never smoked tobacco (finding) [facility] Tobacco smoking status Never [facility] Sex Assigned At Male [facility] Functional Status Date Assessment Result Facility 09-21-2022 Functional Status N/A [facility] Clinical Notes 07-28-2021 to 12-29-2023 Note Date & Type Note Facility 12-29-2023 Evaluation note Encounter Date Diagnosis Assessment Notes Dec, Anemia (ICD-10 - D64.9) [facility] Other 01-03-2024 NoteThis report has been cancelled. [facility]01-03-2024 NoteThis report has been cancelled.[facility]01-03-2024 NoteThis report has been cancelled.[facility]01-03-2024 NoteThis report has been cancelled.[facility]01-03-2024 NoteThis report has been cancelled.[facility]01-03-2024 NoteThis report has been cancelled.[facility]01-03-2024 NoteThis report has been cancelled.[facility]12-27-2023 Evaluation note* Encounter Date Diagnosis Assessment Notes Treatment Notes Treatment Clinical Notes Oct, 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 s/p LAAO procedure, off anticoagulation Oct, Pulmonary [...] I44.1) PM inserted PM checkups every 6months. [facility] Other 11-07-2023 Evaluation note* Encounter Date Diagnosis [...] continue exercise to achieve/maintain a normal BMI. [facility] Other 10-05-2023 Evaluation note* Encounter Date Diagnosis [...] are maintaining regular scheduled 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 No bleeding complications Apr, Chronic venous insufficiency (ICD-10 - I87.2) Avoid salt and elevate lower extremities, support stockings, inspect legs and feet daily for blisters and ulcerations. Apr, Second degree heart block (ICD-10 - I44.1) PM inserted, routine PM checks w/ [facility] Apr, History of prostate cancer (ICD-10 - Z85.46) No s/s recurrence. No active treatment at this time. [facility] Other 05-22-2023 NotePatient is here today to establish care Review of Systems HENT: Positive for ear discharge. Eyes: Positive for vision loss in left eye and vision loss in right eye. Respiratory: Positive for cough. All other systems reviewed and are negative.[facility] 04-17-2023 [facility] SUBJECTIVE Chief Complaint Patient presents with Establish Care HPI Samson oJe is a 87 y.o. male here as a new patient. 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 Needs new Ruling Machine Set Up Operator, suggest [facility] here in [place] Dec, History of prostate cancer (ICD-10 - Z85.46) No s/s recurrence [facility] Other 10-26-2022 Hospital Discharge instructions Patient Education [...] who: Are older than age 65. Are -[place]. Are obese. Have a family history of [...] cells. Follow these instructions at home: Take mhsu-nwo-qhwpoun and prescription medicines only as told by [...] 11/13/2006 Document Revised: 10/26/2018 Document Reviewed: 07/24/2017 [employer] Patient Education 2020 [employer] Follow Up Care 03/16/2022 09:37:24 With:KENNETH SHEPARD, MARYBETH Trivedi, URL Address: [address] [place] [address] [phone] When: only if needed [facility] 04-20-2022 Hospital Discharge instructions Patient Education 03/16/2022 [...] who: Are older than age 65. Are -[place]. Are obese. Have a family history of [...] cells. Follow these instructions at home: Take vmbv-ahf-pmywikn and prescription medicines only as told by [...] 11/13/2006 Document Revised: 10/26/2018 Document Reviewed: 07/24/2017 [employer] Patient Education 2020 [employer]. Follow Up Care 01/28/2022 16:02:47 With:MARYBETH COOPER PA-C, URL Address: [address] [place] [address] Business (1) When:6 months [facility] 09-21-2021 NoteHNO ID: [id number] Author: Jewel Cary III, MD Service: ? Author Type: Physician Type: Progress Notes Filed: 08/17/2021 9:33 AM Note Text: This patient is post op from laparoscopic cholecystectomy. He has had no symptoms. P.E. The wounds are healing well without evidence of infection. I reviewed the pathology report with Samson. Assessment Satisfactory course Plan: Return to office PRN. Jewel Cary III, [facility]09-01-2021 NoteHNO ID: [id number] Author: Jaspal Phipps APRN.DERRICKMAN HELPER Service: Anesthesiology Author Type: Nurse Forming Process Line Worker Type: Anesthesia Procedure Notes Filed: 07/28/2021 10:50 AM Note Text: ANESTHESIOLOGY PROCEDURE NOTE Airway General Information Procedure Start Time/Medication Administration: 07/28/2021 10:40 AM Patient location during procedure: OR Patient identity confirmed: arm band and patient Staffing Anesthesiologist: Ramiro Esquivle MD DERRICKMAN HELPER: Jaspal Phipps APRN.DERRICKMAN HELPER Performed by: JASON Indications and Patient Condition Preoxygenated: yes Patient [...] to 7.0 ETT-no difficulty. SIGNATURE: Jaspal Phipps APRN.DERRICKMAN HELPER PATIENT NAME: Samson Joe DATE: July 28, 2021 TIME: 10:48 AM CSN: [id number] note Future Appointments Appointment Date:09/21/2022 10:00:00 AM Scheduled Provider:MARYBETH COOPER PA-C Location:[facility] Appointment Type:URO Office Visit [facility] evaluation noteNo InformationNortAdultSpace Other History general Narrative - Reported* Type [...] GALLBLADDER 11/2029 Hospitalization History see surgical history [facility] Other Hisxsfo general Narrative - Reported* Type Description Date [...] 20 16 Hospitalization History see surgical history [facility] Other Hospital course Narrative No data available for this section [facility] progress note No data available for this section [facility] [place] Summary Purpose Family History No Family History [...] section and content) DATE CREATED AUTHOR 12/17/2018 [facility] DATE CREATED AUTHOR AUTHOR'S ORGANIZ ATION 07/31/2021 [facility] DATE CREATED AUTHOR AUTHOR'S ORGANIZ ATION 07/31/2021 [facility] DATE CREATED AUTHOR AUTHOR'S ORGANIZ ATION 12/24/2021 [facility] DATE CREATED AUTHOR AUTHOR'S ORGANIZ ATION 12/26/[address] [facility] DATE CREATED AUTHOR AUTHOR'S ORGANIZ ATION 09/22/2022 [facility] DATE CREATED AUTHOR AUTHOR'S ORGANIZ ATION 10/05/2022 [facility] DATE CREATED AUTHOR AUTHOR'S ORGANIZ ATION 12/27/2023 [facility] DATE CREATED AUTHOR AUTHOR'S ORGANIZ ATION 12/30/2023 [facility] Patient Care team informatio n (unrecognized section and content) Personnel Name: TIMO BAR DO Address: Address: [address] [place] [address] REASON FOR VISIT (unrecogniz ed section and content) 6 MONTH FOLLOW UP4 MONTH FOL LOW UPWellnessLab resultsflu shotankle/foot swellingRefillTCMFR HHTBHMedication PriceTCMBlood PressuresBP readingsweight concernRepeat Labs FOR RECORDS PERTAINING TO PATIENTS WHO ARE [...] BE BASED ON THE PRIMARY CLINICAL RECORDS. [facility] amprice [facility]. provides no warranty or guarantee of the accuracy or completeness of information in this document.
[2024-01-01 14:33] LABS: Basophils Percent Auto 0.5 % (0.2-2.0); Eosinophils Percent Auto 0.9 % (0.9-7.0); Hematocrit 32.7 % (42.0-54.0); Hemoglobin 10.5 g/dL (14.0-18.0); Immature Granulocytes Abs Auto 0.01 10^3/uL (0.00-0.03); Immature Granulocytes Pct Auto 0.2 % (0.0-0.5); Lymphocytes Absolute Auto 0.9 10^3/uL (1.2-3.8); Lymphocytes Percent Auto 20.8 % (20.5-60.0); Mean Corpuscular HGB Conc 32.1 g/dL (29.9-35.2); Mean Corpuscular Hemoglobin 33.9 pg (25.9-34.0); Mean Corpuscular Volume 105.5 fL (80.0-94.0); Mean Platelet Volume 11.5 fL (9.5-13.5); Monocytes Absolute Auto 0.6 10^3/uL (0.3-0.8); Monocytes Percent Auto 14.6 % (1.7-12.0); Neutrophils Absolute Auto 2.7 10^3/uL (1.4-6.5); Platelet Count 86 10^3/uL (150-450); Red Cell Distribution Width 15.6 % (11.0-15.0); White Blood Count 4.3 10^3/uL (4.0-11.0)
[2024-01-01 15:05] LABS: Percent Iron Saturation 38.9 %
[2024-01-01 15:14] LABS: Anion Gap 13.1; BUN Creatinine Ratio 33.7; Calcium 9.4 mg/dL (8.5-10.1); Carbon Dioxide 26.6 mmol/L (21.0-32.0); Chloride 103 mmol/L (98-107); Estimated GFR (African America 43 (>=60); Estimated GFR (Non-African Ame 35 (>=60); Glucose 99 mg/dL (74-106); Potassium 4.7 mmol/L (3.5-5.1); Sodium 138 mmol/L (136-145)
== END 2024-01-01 13:52 | disposition home or self-care (01) ==
LOC: LAB 13:54
PROVIDERS: PCP Internal Medicine; Visit Provider Internal Medicine
DX: D64.9 Anemia, unspecified (principal)
CPT/HCPCS: 36415; 80048; 82607; 82728; 83540; 83550; 83880; 85025

== ENCOUNTER 2024-01-08 17:09 | Inpatient (IN) | payer MEDICARE, OTHER, SELFPAY ==
[2024-01-08] VITALS (28 sets, daily range): BP systolic 86–106; BP diastolic 48–63; PULSE 69–87; RESP 7–28; TEMP 34.4–35.7; O2SAT 94–98; BMI 29.6; BMI 29.1
--- NOTE | 2024-01-08 17:21 | XR_ITS ---
The [address] [address] Patient Name: REINA JOE MRN: [id number] date: 1935 Sex: M Assigned Patient Location: ER Current Patient Location: ED.MAIN Accession/Order Number: [id number] Exam Date: 01/08/2024 17:35 Report Date: 01/08/2024 18:14 At the request of: BRENT ROCHA Procedure: XR chest 1V EXAM: XR chest 1V HISTORY: SOB COMPARISON: 12/03/2023 TECHNIQUE: Chest X-ray AP, 1 view FINDINGS: Support devices: Dual lead pacer leads are not substantially changed in position. Lungs/pleura: No pneumothorax. Mild bilateral perihilar cuffing and small right pleural effusion, representing pulmonary edema. Heart and mediastinum: Cardiomegaly. Bones: No acute abnormality identified. XR/XR chest 1V Impression: Mild cardiomegaly. Mild bilateral perihilar cuffing and small right pleural effusion, representing pulmonary edema. Electronically authenticated by: LISA DAVIDSON Date: 01/08/2024 18:14
--- NOTE | 2024-01-08 17:21 | ECG_ITS ---
The [facility] Test Date: 2024-01-08 Pat Name: REINA JOE Department: Room: - Gender: Male Crm Analyst: : 1935 Requested By: NIRU FRANCIS Order Number: [id number] Reading MD: NIRU FRANCIS Measurements Intervals [place] Rate: 57 P: -45047 TN: -83557 QRS: -73 QRSD: 188 T: 112 QT: 504 QTc: 499 Interpretive Statements [id number] Electronic ventricular pacemaker (Unreliable analysis due to noise) 0102 ARTIFACT PRESENT 9120 atypical ECG Compared to ECG 12/03/2023 10:59:40 No significant changes Electronically Signed On 01-09-2024 6:42:38 EST by NIRU FRANCIS
--- NOTE | 2024-01-08 17:22 | ED_ITS ---
HPI - SOB/Dyspnea General Chief Complaint: Shortness of Breath/Dyspnea Stated Complaint: Shortness of Breath Time Seen by Provider: 01/08/24 17:12 History of Present Illness HPI Narrative: 88-year-old male presents for shortness of breath. He has not had a fever and has not had a productive cough. He states he is really not coughing at all. No back pain. Exertion seems to make it worse. He has a pacemaker and had 2 cardiac valves repaired but he has no history of CAD or chronic lung disease. Related Data Home Medications Medication Instructions Recorded Confirmed aspirin 81 mg tablet,delayed 81 mg PO DAILY 11/15/23 12/03/23 release (Janice Low Dose Aspirin) digoxin 125 mcg (0.125 mg) tablet 0.125 mg PO Q24H 11/15/23 12/03/23 furosemide 40 mg tablet 40 mg PO Q24H 11/15/23 12/03/23 lisinopril 2.5 mg tablet 2.5 mg PO Q24H 11/15/23 12/03/23 oxybutynin chloride 5 mg 5 mg PO Q24H 11/15/23 12/03/23 tablet,extended release 24 hr dapagliflozin propanediol 5 mg 5 mg PO DAILY 12/03/23 12/03/23 tablet (Farxiga) metoprolol succinate 50 mg 50 mg PO QDAY 12/03/23 12/03/23 tablet,extended release 24 hr Allergies Allergy/AdvReac Type Severity Reaction Status Date / Time No Known Drug Allergies Allergy Verified 01/08/24 17:10 Review of Systems ROS Narrative A ten point review of systems is negative except as noted above. [facility] Medical History (Updated 01/08/24 @ 18:47 by Jayesh Torres MD) Hypoxemia ?R09.02 - Hypoxemia (ICD-10) Acute exacerbation of CHF (congestive heart failure) ?I50.9 - Heart failure, unspecified (ICD-10) Thrombocytopenia ?D69.6 - Thrombocytopenia, unspecified (ICD-10) OAB (overactive bladder) ?N32.81 - Overactive bladder (ICD-10) Anemia ?D64.9 - Anemia, unspecified (ICD-10) HFrEF (heart failure with reduced ejection fraction) ?I50.20 - Unspecified systolic (congestive) heart failure (ICD-10) Atherosclerotic heart disease of [place] coronary artery without angina pectoris ?I25.10 - Atherosclerotic heart disease of [place] coronary artery without angina pectoris (ICD-10) CKD (chronic kidney disease) stage 3, GFR 30-59 ml/min ?N18.30 - Chronic kidney disease, stage 3 unspecified (ICD-10) Paroxysmal A-fib ?I48.0 - Paroxysmal atrial fibrillation (ICD-10) Retinal detachment ?H33.20 - Serous retinal detachment, unspecified eye (ICD-10) HTN (hypertension) ?I10 - Essential (primary) hypertension (ICD-10) Prostate CA ?C61 - Malignant neoplasm of prostate (ICD-10) Pacemaker ?Z95.0 - Presence of cardiac pacemaker (ICD-10) Surgical History (Updated 11/15/23 @ 15:48 by Rosenda Ramirez NP) Hx of inguinal hernia repair ?Z98.890 - Other specified postprocedural states (ICD-10) ?Z87.19 - Personal history of other diseases of the digestive system (ICD-10) History of permanent cardiac pacemaker placement ?Z95.0 - Presence of cardiac pacemaker (ICD-10) History of tricuspid valve repair ?Z98.890 - Other specified postprocedural states (ICD-10) H/O mitral valve repair ?Z98.890 - Other specified postprocedural states (ICD-10) Family History (Updated 11/15/23 @ 15:37 by Keyla Wilson) Mother Family history of CHF (congestive heart failure) Family history of hypertension Sister Family history of cancer Social History (Updated 11/15/23 @ 15:38 by Keyla Wilson) Within the past year, how often did you have a drink containing alcohol: never Score interpretation: A score less than 4 is consistent with normal alcohol consumption. Smoking status: Never smoker Non-prescribed substance use: denies use Previous occupational history: [employer] Highest level of school completed/degree received: high school graduate Are you now , , , , never or living with a partner: never In a typical week, how many times do you talk on the telephone with family, friends, or neighbors: once per week How often do you get together with friends or relatives: once per week How often do you attend baptist or roman catholic services: never Do you belong to any clubs or organizations such as baptist groups unions, fraternal or athletic groups, or school groups: no Total score: 0 Score interpretation: A score of less than or equal to 1 indicates the most socially isolated. Exam Narrative Exam Narrative: Nurses note and vital signs reviewed and patient is not hypoxic. General: The patient appears well and in no apparent distress. Patient is resting comfortably on cart. Skin: Warm, dry, no pallor noted. There is no rash noted. Head: Normocephalic, atraumatic Eye: Normal conjunctiva, no drainage Ears, Nose, Mouth, and Throat: oral mucosa is moist. Nares patent. Cardiovascular: Regular Rate and Rhythm Respiratory: Patient is in no distress, no accessory muscle use, lungs are clear to auscultation, no wheezing, rales or rhonchi Back: non-tender GI: Soft and nontender Musculoskeletal: The patient has no evidence of calf tenderness, no pitting edema, symmetrical pulses noted bilaterally Neurological: A&O, normal speech Psychiatric: Cooperative Constitutional Vital Signs, click to edit/add: Last Vital Signs Temp 93.9 F L 01/08/24 18:30 Pulse 75 01/08/24 18:10 Resp 23 01/08/24 18:10 BP 104/63 01/08/24 18:31 Pulse Ox 96 01/08/24 18:10 O2 Del Method Nasal Cannula 01/08/24 17:35 O2 Flow Rate 3 01/08/24 17:35 Course Vital Signs Vital signs: Vital Signs Temperature 93.9 F L 01/08/24 17:11 Pulse Rate 75 01/08/24 17:11 Respiratory Rate 20 01/08/24 17:11 Blood Pressure 99/58 01/08/24 17:11 Pulse Oximetry 96 01/08/24 17:11 Oxygen Delivery Method Nasal Cannula 01/08/24 17:11 Oxygen Delivery Flow Rate 4 01/08/24 17:11 Temperature 93.9 F L 01/08/24 18:30 Pulse Rate 75 01/08/24 18:10 Respiratory Rate 23 01/08/24 18:10 Blood Pressure 104/63 01/08/24 18:31 Pulse Oximetry 96 01/08/24 18:10 Oxygen Delivery Method Nasal Cannula 01/08/24 17:35 Oxygen Delivery Flow Rate 3 01/08/24 17:35 MDM - SOB/Dyspnea MDM Narrative Medical decision making narrative: Chest x-ray suggest pulmonary edema and he was given IV Bumex. Second troponin is pending. The patient was also found to be hypothermic, his rectal temperature was 93.9 degrees. He was placed on the Haresh Hugger and was given warmed IV fluids. Cultures are pending and thus far no source of the and infection has been identified. It is expected that he will be admitted. Differential Diagnosis Differential diagnosis: Likely congestive heart failure, community acquired pneumonia and other (Pulmonary edema, myocardial infarction) Lab Data Attestation: I reviewed the patient's lab results. Labs: Lab Results 01/08/24 01/08/24 Range/Units 17:24 17:28 WBC 4.0 (4.0-11.0) 10^3/uL RBC 3.07 L (4.70-6.10) 10^6/uL Hgb 10.7 L (14.0-18.0) g/dL Hct 33.0 L (42.0-54.0) % MCV 107.5 H (80.0-94.0) fL MCH 34.9 H (25.9-34.0) pg MCHC 32.4 (29.9-35.2) g/dL RDW 16.1 H (11.0-15.0) % Plt Count 85 L (150-450) 10^3/uL MPV 11.8 (9.5-13.5) fL Neut % (Auto) 64.9 (43.0-75.0) % Lymph % (Auto) 17.5 L (20.5-60.0) % [place] % (Auto) 15.3 H (1.7-12.0) % Eos % (Auto) 1.3 (0.9-7.0) % Baso % (Auto) 0.5 (0.2-2.0) % Neut # (Auto) 2.6 (1.4-6.5) 10^3/uL Lymph # (Auto) 0.7 L (1.2-3.8) 10^3/uL [place] # (Auto) 0.6 (0.3-0.8) 10^3/uL Eos # (Auto) 0.1 (0.0-0.7) 10^3/uL Baso # (Auto) 0.0 (0.0-0.1) 10^3/uL Abs Immat Gran (auto) 0.02 (0.00-0.03) 10^3/uL Imm/Tot Granulo (auto) 0.5 (0.0-0.5) % Sodium 138 (136-145) mmol/L Potassium 4.9 (3.5-5.1) mmol/L Chloride 103 (98-107) mmol/L Carbon Dioxide 24.3 (21.0-32.0) mmol/L Anion Gap 15.6 BUN 71.0 H (7.0-18.0) mg/dL Creatinine 1.66 H (0.70-1.30) mg/dL Est GFR ( Amer) 48 L (>=60) Est GFR (Non-Af Amer) 39 L (>=60) BUN/Creatinine Ratio 42.8 Glucose 93 (74-106) mg/dL Lactate 1.2 (0.4-2.0) mmol/L Calcium 9.4 (8.5-10.1) mg/dL Total Bilirubin 1.5 H (0.2-1.0) mg/dL Direct Bilirubin 0.5 H (0.0-0.2) mg/dL AST 14 L (15-37) U/L ALT 22 (16-63) U/L Alkaline Phosphatase 111 (46-116) U/L Troponin I High Sens 43.0 (4.0-76.1) pg/mL NT-Pro-B Natriuret Pep 2605.0 H* (<=1800.0) pg/mL Total Protein 7.9 (6.4-8.2) g/dL Albumin 3.4 (3.4-5.0) g/dL Globulin 4.5 g/dL Albumin/Globulin Ratio 0.8 Procalcitonin <0.05 (0.00-0.50) ng/mL Urine Color Yellow (YELLOW) Urine Clarity Clear (CLEAR) Urine pH 5.5 (5.0-9.0) Ur Specific [place] 1.020 (1.005-1.025) Urine Protein Negative (NEG/TRACE) mg/dL Urine Glucose (UA) Negative (NEGATIVE) mg/dL Urine Ketones Negative (NEGATIVE) mg/dL Urine Occult Blood Negative (NEGATIVE) Urine Nitrite Negative (NEGATIVE) Urine Bilirubin Negative (NEGATIVE) Urine Urobilinogen 0.2 (0.2-1.0) EU/dL Ur Leukocyte Esterase Negative (NEGATIVE) Adenovirus (PCR) Not detected (NOT DETECTE) C. pneumoniae DNA (PCR) Not detected (NOT DETECTE) Coronavirus Type OC43 Not detected (NOT DETECTE) Coronavirus Type HKU1 Not detected (NOT DETECTE) Coronavirus Type 229E Not detected (NOT DETECTE) Coronavirus Type NL63 Not detected (NOT DETECTE) Human Metapneumovir PCR Not detected (NOT DETECTE) M. pneumoniae (PCR) Not detected (NOT DETECTE) Parainfluenza PCR Not detected (NOT DETECTE) Parainfluenza 2 (PCR) Not detected (NOT DETECTE) Parainfluenza 3 (PCR) Not detected (NOT DETECTE) Parainfluenza 4 (PCR) Not detected (NOT DETECTE) RSV (RT-PCR) Not detected (NOT DETECTE) Entero/Rhino (PCR) Not detected (NOT DETECTE) SARS-CoV-2 (PCR) Not detected (NOT DETECTE) Bordetella pertussis (PCR) Not detected (NOT DETECTE) B parapertussis DNA PCR Not detected (NOT DETECTE) Influenza Type A (PCR) Not detected (NOT DETECTE) Influenza Type B (PCR) Not detected (NOT DETECTE) Imaging Data Chest x-ray: Radiologist's impression: ITS Impressions Chest X-Ray 01/08/24 17:21 Impression: Mild cardiomegaly. Mild bilateral perihilar cuffing and small right pleural effusion, representing pulmonary edema. Electronically authenticated by: LISA DAVIDSON Date: 01/08/2024 18:14 ECG Data Attestation: I personally reviewed and interpreted this ECG as follows: (EKG on my interpretation shows paced rhythm) Critical Care Time Critical Care Time Critical Care Time: Yes Total Critical Care Time: 40 Attestation: Due to the high probability of sudden and clinically significant deterioration in the patient's condition he/she required the highest level of my preparedness to intervene urgently I provided critical care time including documentation time, medication orders and management, reevaluation, vital sign assessment, ordering and reviewing of lab tests, ordering and reviewing of x-ray studies, and admission orders. Aggregate critical care time is 40 minutes including only time during which I was engaged in work directly related to his/her care and did not include time spent treating other patients simultaneously. Discharge Plan Discharge Patient Disposition: Still a Patient
--- OUTSIDE RECORDS SUMMARY | 2024-01-08 17:22 | XMS_ITS | CCD ---
Author Name Unknown Address [address] [place] [address] Organization [facility] Care Team Providers Care Salon Supervisor Name Role Phone TIMO BAR Primary Care Physician [phone] MARYBETH COOPER Attending Unavailable KENNETH, MARYBETH Trivedi [...] Admitting Unavailable PENNY, DR MARRUFO Attending Unavailable PENYN, DR MARRUFO Primary Care Unavailable PENNY, DR MARRUFO Consulting Unavailable PENNY, DR MARRUFO Primary Care Unavailable MARIAN, DR ZACH Scott Admitting Unavailable MARIAN, DR ZACH Scott Attending Unavailable MARIAN, DR ZACH Scott Consulting Unavailable AHOT, ANA Consulting Unavailable Timo Bar Unavailable EDDIE WEISS Attending Unavailable NAOMI GRIFFIN II Referring UnavailJUAN LUIS Avendano Attending Unavailable MARGARITA HERNANDEZ Attending Unavailable SAMSON MYLES Referring Unavailable SAMSON MYLES Referring Unavailable Medications Current Medications Medication Drug Class(es) [...] Daily, # 90 tab(s), Refills(s) 3, Pharmacy: [id number], 183, cm, 09/21/22 12:19:00 EDT, Height/Length [...] failure; Translations: [Chronic systolic (congestive) heart failure] Onset: 01-01-2024 Chronic Deficiency and other anemia (1 source) [...] 08-10-2022 Episodic Other aftercare (6 sources) 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; Translations: [OTH FPC CURRENT DRUG THERAPY] Onset: 07-08-2022 Episodic Other aftercare (1 source) 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; Translations: [FPC CURRENT USE OF ASPIRIN] Onset: 08-16-2022 Episodic [...] Range Facility Office Visiton 04-17-2023 Follow-up visit [id number] Samson Joe 1935 M Date Provider Department Center 04/17/2023 Stephane-JUAN LUIS CALVIN C[facility] No family history on file Level of Service:57485 HI OFFICE/OUTPATIENT NEW MODERATE MDM 45-59 MINUTES Reason for Visit and Comments: Establish Care [42] Normal [facility] Ambulatory Visit Summaryon 1 Ambulatory Visit Summary HEATH SAMSON Farooq :1935 Visit Date:09/21/2022 Ambulatory Visit Instructions Your Diagnosis Urge incontinence History of prostate cancer Tests Performed Urnls Dip Stick Auto w/o Microscopy POC 49471 Your Care Team Attending Physician - MARYBETH [...] When: Only if needed Where: [address] [place] [address] [id number] Medications What How Much When Instructions Unchanged oxybutynin (oxybutynin 5 mg ER Tab) 1 Tablets By Mouth Every day Pickup at [facility] Unchanged ascorbic acid (Vitamin C) Every [...] physician if questions or concerns Pharmacy Information [facility]: [address] [place], [place] [id number] [phone] Test Results Urnls Dip Stick Auto w/o Microscopy POC 41242 (09/21/2022) Bilirubin Urine Dipstick - Negative Blood Urine Dipstick - Negative Glucose Urine Dipstick - Negative Ketones Urine Dipstick - Negative Leukocytes Urine Dipstick - Negative Nitrite Urine Dipstick - Negative Protein Urine Dipstick - Negative Specific Roseau Urine Dipstick - 1.015 Urine Appearance Urine [...] hematuria History of prostate cancer Hyperlipidemia Hypertension MCC current use of 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 ? Are -Malaysian. ? Are obese. ? Have a family [...] during urination (more content not included)... Normal [facility] Ambulatory Visit Summary SAMSON JOE :1935 Visit Date:09/21/2022 Ambulatory Visit Instructions Your Diagnosis Urge incontinence History of prostate cancer Tests Performed Urnls Dip Stick Auto w/o Microscopy POC 81635 Your Care Team Attending Physician - MARYBETH [...] URL When: Only if needed Where: [address] [place] [place] [address] [id number] Medications What How Much When Instructions Unchanged [...] Urnls Dip Stick Auto w/o Microscopy POC 88461 (09/21/2022) Bilirubin Urine Dipstick - Negative Blood Urine Dipstick - Negative Glucose Urine Dipstick - Negative Ketones Urine Dipstick - Negative Leukocytes Urine Dipstick - Negative Nitrite Urine Dipstick - Negative Protein Urine Dipstick - Negative Specific Rose[place] Urine Dipstick - 1.015 Urine Appearance Urine [...] hematuria History of prostate cancer Hyperlipidemia Hypertension MCC current use of 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 ? Are -Malaysian. ? Are obese. ? Have a family [...] upper thi (more content not included)... Normal [facility] Patient Educationon 09-21-20 22 Patient Education Oncology Prostate Cancer The [...] Are older than age 65. ? Are -Malaysian. ? Are obese. ? Have a family [...] Follow these instructions at home: ? Take eyfr-kgu-whwhuqk and prescription medicines only as told by [...] cancer specialis (more content not included)... Normal [facility] Urology Office/Clinic Noteon 09-21-2022 Urology Office/Clinic [...] 1 yr. Follow-up With When Contact Information MARYBETH COOPER PA-C, URL Only if needed [address] [place] [id number] Additional Instructions: Patient Education Prostate Cancer Rebecca [...] hematuria History of prostate cancer Hyperlipidemia Hypertension MCC current use of antithrombotics/antip latelets Post-void dribbling [...] Father. Immunizations Vaccine Date Status Comments SARSCoV2 mRNA(marco vidal) vac 04/26/2022 Recorded SARS-CoV-2 (COVID-19) mRNA BNT-162b2 [...] 09/05/2016 Rec (more content not included)... Normal [facility] Comment on above: Result Comment: Elec tronically Signed By: KENNETH SHEPARD, MARYBETH Trivedi\.br\Date and Time Signed: 09/21/22 13:18 EDT CBC AUTO DIFFon 09-06-2022 BASO # 0.0 103/ul Normal 0.0-0.1 [facility] Comment on above: Performed By: #### C BC #### [facility] [address] [address] [address] Kirk García Basophils/100 WBC (Bld) 0.5 % Normal 0.2-2.0 [facility] Comment on above: Performed By: #### C BC #### [facility] [address] [address] [address] Kirk García EO # 0.1 103/ul Normal 0.0-0.7 [facility] Comment on above: Performed By: #### C BC #### [facility] [address] [address] [address] Kirk García Eosinophils/100 WBC (Bld) 1.2 % Normal 0.9-7.0 [facility] Comment on above: Performed By: #### C BC #### [facility] [address] [address] [address] Kirk García Erythrocyte distribution width (RBC) [Ratio] 14.2 % Normal 11.0-15.0 [facility] Comment on above: Performed By: #### C BC #### [facility] [address] [place] [address] Dr. Kirk García Hematocrit (Bld) [Volume fraction] 35.6 % Critically low 42.0-54.0 [facility] Comment on above: Performed By: #### C BC #### [facility] [address] [address] [address] Kirk García Hemoglobin (Bld) [Mass/Vol] 11.7 g/dL Critically low 14.0-18.0 [facility] Comment on above: Performed By: #### C BC #### [facility] [address] [address] [address] Kirk García IG # 0.04 10e3/ul Critically high 0.00-0.03 [facility] Comment on above: Performed By: #### C BC #### [facility] [address] [place] [address] Dr. Kirk García IG % 0.6 % Critically high 0.0-0.5 [facility] Comment on above: Performed By: #### C BC #### [facility] [address] [place] [address] Dr. Kirk García LYMPH # 1.7 103/ul Normal 1.2-3.8 [facility] Comment on above: Performed By: #### C BC #### [facility] [address] [place] [address] Dr. Kirk García Lymphocytes/100 WBC (Bld) 25.7 % Normal 20.5-60.0 [facility] Comment on above: Performed By: #### C BC #### [facility] [address] [place] [address] Dr. Kirk García MANUAL DIFF REQ NO Normal [facility] Comment on above: Performed By: #### C BC #### [facility] [address] [place] [address] Dr. Kirk García MCH (RBC) [Entitic mass] 34.1 pg Critically high 25.9-34.0 [facility] Comment on above: Performed By: #### C BC #### [facility] [address] [place] [address] Dr. Kirk García MCHC (RBC) [Mass/Vol] 32.9 g/dL Normal 29.9-35.2 [facility] Comment on above: Performed By: #### C BC #### [facility] [address] [place] [address] Dr. Kirk García MCV (RBC) [Entitic vol] 103.8 fL Critically high 80.0-94.0 [facility] Comment on above: Performed By: #### C BC #### [facility] [address] [place] [address] Dr. Kirk García MONO # 1.1 103/ul Critically high 0.3-0.8 [facility] Comment on above: Performed By: #### C BC #### [facility] [address] [address] [address] Kirk García Monocytes/100 WBC (Bld) 17.7 % Critically high 1.7-12.0 [facility] Comment on above: Performed By: #### C BC #### [facility] [address] [address] [address] Kirk García NEUT # 3.5 103/ul Normal 1.4-6.5 [facility] Comment on above: Performed By: #### C BC #### [facility] [address] [place] [address] Dr. Kirk García Neutrophils/100 WBC (Bld) 54.3 % Normal 43.0-75.0 [facility] Comment on above: Performed By: #### C BC #### [facility] [address] [place] [address] Dr. Kirk García Platelet mean volume (Bld) [Entitic vol] 10.1 fL Normal 9.5-13.5 [facility] Comment on above: Performed By: #### C BC #### [facility] [address] [place] [address] Dr. Kirk García PLT 153 103/ul Normal 150-450 [facility] Comment on above: Performed By: #### C BC #### [facility] [address] [place] [address] Dr. Kirk García RBC 3.43 106/ul Critically low 4.70-6.10 [facility] Comment on above: Performed By: #### C BC #### [facility] [address] [place] [address] Dr. Kirk García WBC 6.5 103/ul Normal 4.0-11.0 [facility] Comment on above: Performed By: #### C BC #### [facility] [address] [place] [address] Dr. Kirk García PROF CHEM 8 (BAS METB)on Anion gap [Moles/Vol] 10.8 mmol/L Normal [facility] Comment on above: Performed By: #### B MP #### [facility] [address] [address] [address] Krik García Calcium [Mass/Vol] 9.2 mg/dL Normal 8.5-10.1 [facility] Comment on above: Performed By: #### B MP #### [facility] [address] [address] [address] Kirk García Chloride [Moles/Vol] 101 mmol/L Normal 98-107 [facility] Comment on above: Performed By: #### B MP #### [facility] [address] [address] [address] Kirk García CO2 [Moles/Vol] 30.9 mmol/L Normal 21.0-32.0 [facility] Comment on above: Performed By: #### B MP #### [facility] [address] [place] [address] Dr. Kirk García Creatinine [Mass/Vol] 1.54 mg/dL Critically high 0.70-1.30 [facility] Comment on above: Performed By: #### B MP #### [facility] [address] [address] [address] Kirk García EGFR-AF CHILEAN 52 mL/min/1.73m2 Critically low >=60 [facility] Comment on above: Performed By: #### B MP #### [facility] [address] [place] [address] Dr. Kirk García EGFR-NON AF CHILEAN 43 mL/min/1.73m2 Critically low >=60 [facility] Comment on above: Performed By: #### B MP #### [facility] [address] [address] [address] Kirk García Glucose [Mass/Vol] 106 mg/dL Normal 74-106 [facility] Comment on above: Performed By: #### B MP #### [facility] [address] [address] [address] Kirk García Potassium [Moles/Vol] 4.7 mmol/L Normal 3.5-5.1 [facility] Comment on above: Performed By: #### B MP #### [facility] [address] [address] [address] Kirk García Sodium [Moles/Vol] 138 mmol/L Normal 136-145 [facility] Comment on above: Performed By: #### B MP #### [facility] [address] [address] [address] Kirk García Urea nitrogen [Mass/Vol] 28.0 mg/dL Critically high 7.0-18.0 [facility] Comment on above: Performed By: #### B MP #### [facility] [address] [address] [address] Kirk García Urea nitrogen/Creatinin e [Mass ratio] 18.2 mg/mg Normal [facility] Comment on above: Performed By: #### B MP #### [facility] [address] [place] [address] Dr. Kirk García CBC W MANUAL DIFFon 08-15-20 22 ATYPICAL LYMPH # 1.62 103/ul Normal [facility] Comment on above: Performed By: #### U MICRO, ERUR #### [facility] [address] [place] [address] Dr. Kirk García ATYPICAL LYMPH % 12 % Normal [facility] Comment on above: Performed By: #### U MICRO, ERUR #### [facility] [address] [place] [address] Dr. Kirk García BAND # 0.1 103/ul Normal 0.0-0.3 [facility] Comment on above: Performed By: #### U MICRO, ERUR #### [facility] [address] [place] [address] Dr. Kirk García BAND % 1 % Normal 0-5 [facility] Comment on above: Performed By: #### U MICRO, ERUR #### [facility] [address] [place] [address] Dr. Kirk García BASOM # 0.14 103/ul Critically high 0.00-0.10 [facility] Comment on above: Performed By: #### U MICRO, ERUR #### [facility] [address] [place] [address] Dr. Kirk García BASOM % 1.0 % Normal 0.2-2.0 [facility] Comment on above: Performed By: #### U MICRO, ERUR #### [facility] [address] [place] [address] Dr. Kirk García BLAST # Normal [facility] Comment on above: Performed By: #### U MICRO, ERUR #### [facility] [address] [place] [address] Dr. Kirk García BLAST % Normal [facility] Comment on above: Performed By: #### U MICRO, ERUR #### [facility] [address] [place] [address] Dr. Kirk García CORRECTED WBC Normal 4.0-11.0 [facility] Comment on above: Performed By: #### U MICRO, ERUR #### [facility] [address] [place] [address] Dr. Kirk García EOS # 0.14 103/ul Normal 0.00-0.70 [facility] Comment on above: Performed By: #### U MICRO, ERUR #### [facility] [address] [place] [address] Dr. Kirk García EOS% 1.0 % Normal 0.9-7.0 [facility] Comment on above: Performed By: #### U MICRO, ERUR #### [facility] [address] [place] [address] Dr. Kirk García HCT 40.7 % Critically low 42.0-54.0 [facility] Comment on above: Performed By: #### U MICRO, ERUR #### [facility] [address] [place] [address] Dr. Kirk García HGB 13.4 g/dl Critically low 14.0-18.0 [facility] Comment on above: Performed By: #### U MICRO, ERUR #### [facility] [address] [place] [address] Dr. Kirk García LYMPHM # 0.54 103/ul Critically low 1.20-3.80 [facility] Comment on above: Performed By: #### U MICRO, ERUR #### [facility] [address] [address] [address] Kirk García LYMPHM% 4.0 % Critically low 20.5-60.0 [facility] Comment on above: Performed By: #### U MICRO, ERUR #### [facility] [address] [address] [address] Kirk García MCH 34.2 pg Critically high 25.9-34.0 [facility] Comment on above: Performed By: #### U MICRO, ERUR #### [facility] [address] [address] [address] Kirk García MCHC 32.9 g/dl Normal 29.9-35.2 [facility] Comment on above: Performed By: #### U MICRO, ERUR #### [facility] [address] [address] [address] Kirk García MCV 103.8 fL Critically high 80.0-94.0 [facility] Comment on above: Performed By: #### U MICRO, ERUR #### [facility] [address] [address] [address] Kirk García METAMYELOCYTE # Normal [facility] Comment on above: Performed By: #### U MICRO, ERUR #### [facility] [address] [address] [address] Kirk García METAMYELOCYTE % Normal [facility] Comment on above: Performed By: #### U MICRO, ERUR #### [facility] [address] [address] [address] Kirk García MONOM# 1.08 103/ul Critically high 0.30-0.80 [facility] Comment on above: Performed By: #### U MICRO, ERUR #### [facility] [address] [address] [address] Kirk García MONOM% 8.0 % Normal 1.7-12.0 [facility] Comment on above: Performed By: #### U MICRO, ERUR #### [facility] [address] [address] [address] Kirk García MPV 10.7 fL Normal 9.5-13.5 [facility] Comment on above: Performed By: #### U MICRO, ERUR #### [facility] [address] [place] [address] Dr. Kirk García MYELOCYTE # Normal [facility] Comment on above: Performed By: #### U MICRO, ERUR #### [facility] [address] [address] [address] Kirk García MYELOCYTE % Normal [facility] Comment on above: Performed By: #### U MICRO, ERUR #### [facility] [address] [address] [address] Kirk García NRBC Normal [facility] Comment on above: Performed By: #### U MICRO, ERUR #### [facility] [address] [place] [address] Dr. Kirk García PLT 140 103/ul Critically low 150-450 [facility] Comment on above: Performed By: #### U MICRO, ERUR #### [facility] [address] [place] [address] Dr. Kirk García RBC 3.92 106/ul Critically low 4.70-6.10 [facility] Comment on above: Performed By: #### U MICRO, ERUR #### [facility] [address] [place] [address] Dr. Kirk García RDW 14.0 % Normal 11.0-15.0 [facility] Comment on above: Performed By: #### U MICRO, ERUR #### [facility] [address] [place] [address] Dr. Kirk García SEG # 9.86 103/ul Critically high 1.40-6.50 [facility] Comment on above: Performed By: #### U MICRO, ERUR #### [facility] [address] [address] [address] Kirk García SEG % 73.0 % Normal 43.0-75.0 [facility] Comment on above: Performed By: #### U MICRO, ERUR #### [facility] [address] [address] [address] Kirk García TOXIC GRANULATION 2+ Normal [facility] Comment on above: Performed By: #### U MICRO, ERUR #### [facility] [address] [place] [address] Dr. Kirk García WBC 13.5 103/ul Critically high 4.0-11.0 [facility] Comment on above: Performed By: #### U MICRO, ERUR #### [facility] [address] [place] [address] Dr. Kirk García PROF 14(COMP METB)on 022 Albumin [Mass/Vol] 3.0 g/dL Critically low 3.4-5.0 [facility] Comment on above: Performed By: #### C MP #### [facility] [address] [place] [address] Dr. Kirk García Albumin/Globulin [Mass ratio] 0.8 {ratio} Normal [facility] Comment on above: Performed By: #### C MP #### [facility] [address] [place] [address] Dr. Kirk García ALP [Catalytic activity/Vol] 81 U/L Normal 46-116 [facility] Comment on above: Performed By: #### C MP #### [facility] [address] [place] [address] Dr. Kirk García ALT [Catalytic activity/Vol] 50 U/L Normal 16-63 [facility] Comment on above: Performed By: #### C MP #### [facility] [address] [place] [address] Dr. Kirk García Anion gap [Moles/Vol] 8.2 mmol/L Normal [facility] Comment on above: Performed By: #### C MP #### [facility] [address] [place] [address] Dr. Kirk García AST [Catalytic activity/Vol] 14 U/L Critically low 15-37 [facility] Comment on above: Performed By: #### C MP #### [facility] [address] [place] [address] Dr. Kirk García Bilirubin [Mass/Vol] 0.9 mg/dL Normal 0.2-1.0 [facility] Comment on above: Performed By: #### C MP #### [facility] [address] [place] [address] Dr. Kirk García Calcium [Mass/Vol] 9.3 mg/dL Normal 8.5-10.1 [facility] Comment on above: Performed By: #### C MP #### [facility] [address] [place] [address] Dr. Kirk García Chloride [Moles/Vol] 100 mmol/L Normal 98-107 [facility] Comment on above: Performed By: #### C MP #### [facility] [address] [place] [address] Dr. Kirk García CO2 [Moles/Vol] 33.1 mmol/L Critically high 21.0-32.0 [facility] Comment on above: Performed By: #### C MP #### [facility] [address] [place] [address] Dr. Kirk García Creatinine [Mass/Vol] 1.56 mg/dL Critically high 0.70-1.30 [facility] Comment on above: Performed By: #### C MP #### [facility] [address] [place] [address] Dr. Kirk García EGFR-AF CHILEAN 51 mL/min/1.73m2 Critically low >=60 [facility] Comment on above: Performed By: #### C MP #### [facility] [address] [place] [address] Dr. Kirk García EGFR-NON AF CHILEAN 42 mL/min/1.73m2 Critically low >=60 [facility] Comment on above: Performed By: #### C MP #### [facility] [address] [place] [address] Dr. Kirk García Globulin (S) [Mass/Vol] 3.7 g/dL Normal [facility] Comment on above: Performed By: #### C MP #### [facility] [address] [place] [address] Dr. Kirk García Glucose [Mass/Vol] 107 mg/dL Critically high 74-106 [facility] Comment on above: Performed By: #### C MP #### [facility] [address] [address] [address] Kirk García Potassium [Moles/Vol] 5.3 mmol/L Critically high 3.5-5.1 [facility] Comment on above: Performed By: #### C MP #### [facility] [address] [address] [address] Kirk García Protein [Mass/Vol] 6.7 g/dL Normal 6.4-8.2 [facility] Comment on above: Performed By: #### C MP #### [facility] [address] [address] [address] Kirk García Sodium [Moles/Vol] 136 mmol/L Normal 136-145 [facility] Comment on above: Performed By: #### C MP #### [facility] [address] [address] [address] Kirk García Urea nitrogen [Mass/Vol] 50.0 mg/dL Critically high 7.0-18.0 [facility] Comment on above: Performed By: #### C MP #### [facility] [address] [address] [address] Kirk García Urea nitrogen/Creatinin e [Mass ratio] 32.1 mg/mg Normal [facility] Comment on above: Performed By: #### C MP #### [facility] [address] [address] [address] Kirk García CULTURE URINEon 08-14-2022 CULTURE URINE Culture Observations : NO GROWTH. Normal [facility] Comment on above: Performed By: #### U MICRO, ERUR #### [facility] [address] [address] [address] Kirk García ER URINE PROFILEon Bilirubin Ql (U) Negative Normal NEGATIVE [facility] Comment on above: Performed By: #### U MICRO, ERUR #### [facility] [address] [address] [address] Kirk García Clarity (U) CLEAR Normal CLEAR [facility] Comment on above: Performed By: #### U MICRO, ERUR #### [facility] [address] [address] [address] Kirk García Color (U) ORANGE Abnormal YELLOW [facility] Comment on above: Performed By: #### U MICRO, ERUR #### [facility] [address] [address] [address] Kirk CYRD A micrscopic examination will be performed if indicated. Normal [facility] Comment on above: Performed By: #### U MICRO, ERUR #### [facility] [address] [address] [address] Kirk García Glucose Ql (U) Negative Normal NEGATIVE [facility] Comment on above: Performed By: #### U MICRO, ERUR #### [facility] [address] [address] [address] Kirk García Hemoglobin Ql (U) LARGE Abnormal NEGATIVE [facility] Comment on above: Performed By: #### U MICRO, ERUR #### [facility] [address] [address] [address] Kirk García Ketones Ql (U) TRACE Abnormal NEGATIVE [facility] Comment on above: Performed By: #### U MICRO, ERUR #### [facility] [address] [address] [address] Kirk García LEUKOCYTES MODERATE Abnormal NEGATIVE [facility] Comment on above: Performed By: #### U MICRO, ERUR #### [facility] [address] [address] [address] Kirk García Nitrite Ql (U) Negative Normal NEGATIVE [facility] Comment on above: Performed By: #### U MICRO, ERUR #### [facility] [address] [address] [address] Kirk García pH (U) 5.5 [pH] Normal 5-9 [facility] Comment on above: Performed By: #### U MICRO, ERUR #### [facility] [address] [address] [address] Kirk García Protein (U) [Mass/Vol] 100 mg/dL Abnormal NEGATIVE/ TRACE [facility] Comment on above: Performed By: #### U MICRO, ERUR #### [facility] [address] [address] [address] Kirk García SPEC GRAVITY 1.025 Normal 1.005-<=1.025 [facility] Comment on above: Performed By: #### U MICRO, ERUR #### [facility] [address] [address] [address] Kirk García UR MICRO IND INDICATED Normal [facility] Comment on above: Performed By: #### U MICRO, ERUR #### [facility] [address] [address] [address] Kirk García Urobilinogen Qn (U) 1.0 {Ryan'U}/dL Normal 0.2 - 1.0 [facility] Comment on above: Performed By: #### U MICRO, ERUR #### [facility] [address] [place] [address] Dr. Kirk García URINE MICROSCOPIC ONLYon BACTERIA SMALL Abnormal NONE SEEN [facility] Comment on above: Performed By: #### U MICRO, ERUR #### [facility] [address] [address] [address] Kirk García Bacteria identified Cx Nom (U) INDICATED Normal [facility] Comment on above: Performed By: #### U MICRO, ERUR #### [facility] [address] [address] [address] Kirk García CAST NONE SEEN Normal NONE SEEN [facility] Comment on above: Performed By: #### U MICRO, ERUR #### [facility] [address] [address] [address] Kirk García Crystals LM Nom (Urine sed) NONE SEEN Normal NONE SEEN [facility] Comment on above: Performed By: #### U MICRO, ERUR #### [facility] [address] [address] [address] Kirk García Epithelial cells LM Ql (Urine sed) RARE Normal NONE SEEN /RARE [facility] Comment on above: Performed By: #### U MICRO, ERUR #### [facility] [address] [address] [address] Kirk García MUCOUS NONE SEEN Normal NONE SEEN [facility] Comment on above: Performed By: #### U MICRO, ERUR #### [facility] [address] [address] [address] Kirk García RBC 75-100 Abnormal 0-2 [facility] Comment on above: Performed By: #### U MICRO, ERUR #### [facility] [address] [place] [address] Dr. Kirk García WBC 50-75 Abnormal NONE SEEN [facility] Comment on above: Performed By: #### U MICRO, ERUR #### [facility] [address] [place] [address] Dr. Kirk García XR KNEE WILBER 4V [...] ANA DALAL Date: 2022-08-14 21:09 Normal [facility] CBC W MANUAL DIFFon 08-04-20 22 ATYPICAL LYMPH # Normal [facility] Comment on above: Performed By: #### C CHRISTOPHER #### [facility] [address] [place] [address] Dr. Kirk García ATYPICAL LYMPH % Normal [facility] Comment on above: Performed By: #### C CHRISTOPHER #### [facility] [address] [place] [address] Dr. Kirk García BAND # 0.0 103/ul Normal 0.0-0.3 [facility] Comment on above: Performed By: #### C CHRISTOPHER #### [facility] [address] [place] [address] Dr. Kirk Gracía BAND % 1 % Normal 0-5 [facility] Comment on above: Performed By: #### C CHRISTOPHER #### [facility] [address] [address] [address] Kirk García BASOM # 0.00 103/ul Normal 0.00-0.10 [facility] Comment on above: Performed By: #### C CHRISTOPHER #### [facility] [address] [address] [address] Kirk García BASOM % 0.0 % Critically low 0.2-2.0 [facility] Comment on above: Performed By: #### C BCLEILA #### [facility] [address] [address] [address] Kirk García BLAST # Normal [facility] Comment on above: Performed By: #### C CHRISTOPHER #### [facility] [address] [place] [address] Dr. Kirk García BLAST % Normal [facility] Comment on above: Performed By: #### C CHRISTOPHER #### [facility] [address] [place] [address] Dr. Kirk García CORRECTED WBC Normal 4.0-11.0 [facility] Comment on above: Performed By: #### C CHRISTOPHER #### [facility] [address] [place] [address] Dr. Kirk García EOS # 0.00 103/ul Normal 0.00-0.70 [facility] Comment on above: Performed By: #### C CHRISTOPHER #### [facility] [address] [place] [address] Dr. Kirk García EOS% 0.0 % Critically low 0.9-7.0 [facility] Comment on above: Performed By: #### C CHRISTOPHER #### [facility] [address] [place] [address] Dr. Kirk García HCT 31.0 % Critically low 42.0-54.0 [facility] Comment on above: Performed By: #### C CHRISTOPHER #### [facility] [address] [place] [address] Dr. Kirk García HGB 10.5 g/dl Critically low 14.0-18.0 [facility] Comment on above: Performed By: #### C BCLEILA #### [facility] [address] [address] [address] Kirk García LYMPHM # 0.31 103/ul Critically low 1.20-3.80 [facility] Comment on above: Performed By: #### C BCLEILA #### [facility] [address] [address] [address] Kirk García LYMPHM% 11.0 % Critically low 20.5-60.0 [facility] Comment on above: Performed By: #### C BCLEILA #### [facility] [address] [address] [address] Kirk García MCH 34.2 pg Critically high 25.9-34.0 [facility] Comment on above: Performed By: #### C BCLEILA #### [facility] [address] [place] [address] Dr. Kirk García MCHC 33.9 g/dl Normal 29.9-35.2 [facility] Comment on above: Performed By: #### C BCLEILA #### [facility] [address] [address] [address] Kirk García MCV 101.0 fL Critically high 80.0-94.0 [facility] Comment on above: Performed By: #### C BCLEILA #### [facility] [address] [address] [address] Kirk García METAMYELOCYTE # 0.1 103/ul Normal [facility] Comment on above: Performed By: #### C BCLEILA #### [facility] [address] [address] [address] Kirk García METAMYELOCYTE % 2 % Normal [facility] Comment on above: Performed By: #### C BCLEILA #### [facility] [address] [address] [address] Kirk García MONOM# 0.03 103/ul Critically low 0.30-0.80 [facility] Comment on above: Performed By: #### C BCLEILA #### [facility] [address] [address] [address] Kirk García MONOM% 1.0 % Critically low 1.7-12.0 [facility] Comment on above: Performed By: #### C CHRISTOPHER #### [facility] [address] [address] [address] Kirk García MPV 10.7 fL Normal 9.5-13.5 [facility] Comment on above: Performed By: #### C CHRISTOPHER #### [facility] [address] [place] [address] Dr. Kirk García MYELOCYTE # 0.0 103/ul Normal [facility] Comment on above: Performed By: #### Jailene WHITE #### [facility] [address] [place] [address] Dr. Kirk García MYELOCYTE % 1 % Normal [facility] Comment on above: Performed By: #### Jailene WHITE #### [facility] [address] [place] [address] Dr. Kirk García NRBC Normal [facility] Comment on above: Performed By: #### Jailene WHITE #### [facility] [address] [address] [address] Kirk García PLT 84 103/ul Critically low 150-450 [facility] Comment on above: Performed By: #### Jailene WHITE #### [facility] [address] [place] [address] Dr. Kirk García RBC 3.07 106/ul Critically low 4.70-6.10 [facility] Comment on above: Performed By: #### Jailene WHITE #### [facility] [address] [place] [address] Dr. Kirk García RDW 13.3 % Normal 11.0-15.0 [facility] Comment on above: Performed By: #### Jailene WHITE #### [facility] [address] [address] [address] Kirk García SEG # 2.35 103/ul Normal 1.40-6.50 [facility] Comment on above: Performed By: #### Jailene WHITE #### [facility] [address] [address] [address] Kirk García SEG % 84.0 % Critically high 43.0-75.0 [facility] Comment on above: Performed By: #### C TRISHMAN #### [facility] [address] [address] [address] Kirk García WBC 2.8 103/ul Critically low 4.0-11.0 [facility] Comment on above: Performed By: #### C CHRISTOPHER #### [facility] [address] [address] [address] Kirk García PROF CHEM 8 (BAS METB)on Anion gap [Moles/Vol] 9.9 mmol/L Normal [facility] Comment on above: Performed By: #### U MICRO, ERUR #### [facility] [address] [address] [address] Kirk García Calcium [Mass/Vol] 7.4 mg/dL Critically low 8.5-10.1 [facility] Comment on above: Performed By: #### U MICRO, ERUR #### [facility] [address] [address] [address] Kirk García Chloride [Moles/Vol] 100 mmol/L Normal 98-107 [facility] Comment on above: Performed By: #### U MICRO, ERUR #### [facility] [address] [address] [address] Kirk García CO2 [Moles/Vol] 23.8 mmol/L Normal 21.0-32.0 [facility] Comment on above: Performed By: #### U MICRO, ERUR #### [facility] [address] [address] [address] Kirk García Creatinine [Mass/Vol] 1.43 mg/dL Critically high 0.70-1.30 [facility] Comment on above: Performed By: #### U MICRO, ERUR #### [facility] [address] [address] [address] Kirk García EGFR-AF CHILEAN 57 mL/min/1.73m2 Critically low >=60 [facility] Comment on above: Performed By: #### U MICRO, ERUR #### [facility] [address] [address] [address] Kirk García EGFR-NON AF CHILEAN 47 mL/min/1.73m2 Critically low >=60 [facility] Comment on above: Performed By: #### U MICRO, ERUR #### [facility] [address] [place] [address] Dr. Kirk García Glucose [Mass/Vol] 148 mg/dL Critically high 74-106 [facility] Comment on above: Performed By: #### U MICRO, ERUR #### [facility] [address] [place] [address] Dr. Kirk García Potassium [Moles/Vol] 4.7 mmol/L Normal 3.5-5.1 [facility] Comment on above: Performed By: #### U MICRO, ERUR #### [facility] [address] [place] [address] Dr. Kirk García Sodium [Moles/Vol] 129 mmol/L Critically low 136-145 [facility] Comment on above: Performed By: #### U MICRO, ERUR #### [facility] [address] [place] [address] Dr. Kirk García Urea nitrogen [Mass/Vol] 42.0 mg/dL Critically high 7.0-18.0 [facility] Comment on above: Performed By: #### U MICRO, ERUR #### [facility] [address] [place] [address] Dr. Kirk García Urea nitrogen/Creatinin e [Mass ratio] 29.4 mg/mg Normal [facility] Comment on above: Performed By: #### U MICRO, ERUR #### [facility] [address] [place] [address] Dr. Kirk García CBC AUTO DIFFon 08-03-2022 BASO # 0.0 103/ul Normal 0.0-0.1 [facility] Comment on above: Performed By: #### C BC #### [facility] [address] [place] [address] Dr. Kirk García Basophils/100 WBC (Bld) 0.0 % Critically low 0.2-2.0 [facility] Comment on above: Performed By: #### C BC #### [facility] [address] [place] [address] Dr. Kirk García EO # 0.0 103/ul Normal 0.0-0.7 [facility] Comment on above: Performed By: #### C BC #### [facility] [address] [place] [address] Dr. Kirk García Eosinophils/100 WBC (Bld) 0.2 % Critically low 0.9-7.0 [facility] Comment on above: Performed By: #### C BC #### [facility] [address] [place] [address] Dr. Kirk García Erythrocyte distribution width (RBC) [Ratio] 13.7 % Normal 11.0-15.0 [facility] Comment on above: Performed By: #### C BC #### [facility] [address] [place] [address] Dr. Kirk García Hematocrit (Bld) [Volume fraction] 34.3 % Critically low 42.0-54.0 [facility] Comment on above: Performed By: #### C BC #### [facility] [address] [place] [address] Dr. Kirk García Hemoglobin (Bld) [Mass/Vol] 11.8 g/dL Critically low 14.0-18.0 [facility] Comment on above: Performed By: #### C BC #### [facility] [address] [place] [address] Dr. Kirk García IG # 0.02 10e3/ul Normal 0.00-0.03 [facility] Comment on above: Performed By: #### C BC #### [facility] [address] [place] [address] Dr. Kirk García IG % 0.4 % Normal 0.0-0.5 [facility] Comment on above: Performed By: #### C BC #### [facility] [address] [place] [address] Dr. Kirk García LYMPH # 0.9 103/ul Critically low 1.2-3.8 [facility] Comment on above: Performed By: #### C BC #### [facility] [address] [address] [address] Kirk García Lymphocytes/100 WBC (Bld) 16.5 % Critically low 20.5-60.0 [facility] Comment on above: Performed By: #### C BC #### [facility] [address] [address] [address] Kirk García MANUAL DIFF REQ NO Normal [facility] Comment on above: Performed By: #### C BC #### [facility] [address] [address] [address] Kirk García MCH (RBC) [Entitic mass] 34.4 pg Critically high 25.9-34.0 [facility] Comment on above: Performed By: #### C BC #### [facility] [address] [address] [address] Kirk García MCHC (RBC) [Mass/Vol] 34.4 g/dL Normal 29.9-35.2 [facility] Comment on above: Performed By: #### C BC #### [facility] [address] [place] [address] Dr. Kirk García MCV (RBC) [Entitic vol] 100.0 fL Critically high 80.0-94.0 [facility] Comment on above: Performed By: #### C BC #### [facility] [address] [place] [address] Dr. Kirk García MONO # 1.2 103/ul Critically high 0.3-0.8 [facility] Comment on above: Performed By: #### C BC #### [facility] [address] [address] [address] Kirk García Monocytes/100 WBC (Bld) 22.3 % Critically high 1.7-12.0 [facility] Comment on above: Performed By: #### C BC #### [facility] [address] [place] [address] Dr. Kirk García NEUT # 3.4 103/ul Normal 1.4-6.5 [facility] Comment on above: Performed By: #### C BC #### [facility] Laboratory [address] [place] [address] Dr. Kirk García Neutrophils/100 WBC (Bld) 60.6 % Normal 43.0-75.0 [facility] Comment on above: Performed By: #### C BC #### [facility] Laboratory [address] [place] [address] Dr. Kirk García Platelet mean volume (Bld) [Entitic vol] 11.6 fL Normal 9.5-13.5 [facility] Comment on above: Performed By: #### C BC #### [facility] Laboratory [address] [place] [address] Dr. Kirk García PLT 99 103/ul Critically low 150-450 The [facility] Comment on above: Performed By: #### C BC #### [facility] Laboratory [address] [place] [address] Dr. Kirk García RBC 3.43 106/ul Critically low 4.70-6.10 The [facility] Comment on above: Performed By: #### C BC #### [facility] Laboratory [address] [place] [address] Dr. Kirk García WBC 5.5 103/ul Normal 4.0-11.0 [facility] Comment on above: Performed By: #### C BC #### [facility] [address] [place] [address] Dr. Kirk García CULTURE BLOODon 08-03-2022 Microscopic examination of blood, culture Culture Observations: NO GROWTH AT 5 DAYS. Normal The [facility] Comment on above: Performed By: #### U MICRO, ERUR #### [facility] Laboratory [address] [place] [address] Dr. Kirk García Microscopic examination of blood, culture Culture Observations: NO GROWTH AT 5 DAYS. Normal [facility] Comment on above: Performed By: #### U MICRO, ERUR #### [facility] Laboratory [address] [place] [address] Dr. Kirk García Covid-19 PCR (CVDTB)on SARS-CoV-2 (COVID-19) RNA SANAZ+probe Ql (Unsp spec) Detected Critically abnormal NOT DETECTED The [facility] Comment on above: Result Comment: This test is not yet approved or cleared by the [place] FDA. When there are no FDA-approved or cleared tests available, and other criteria are met, FDA can make tests available under an emergency access mechanism called an Emergency Use Authorization (EUA). The EUA for this test is supported by the [place] of Health and Human Service's declaration that [...] used). Performed By: #### C VDTBH #### [facility] Laboratory [address] [place] [address] Dr. Kirk García GROUP A STREP CULTUREon S. pyogenes Ag Ql (Unsp spec) Culture Observations: NEGATIVE FOR GROUP A STREPTOCOCCUS. Normal The [facility] Comment on above: Performed By: #### U MICRO, ERUR #### [facility] Laboratory [address] [place] [address] Dr. Kirk García PROF 14(COMP METB)on 022 Albumin [Mass/Vol] 3.0 g/dL Critically low 3.4-5.0 Th e [facility] Comment on above: Performed By: #### C MP #### [facility] Laboratory [address] [place] [address] Dr. Kirk García Albumin/Globulin [Mass ratio] 0.7 {ratio} Normal [facility] Comment on above: Performed By: #### C MP #### [facility] [address] [place] [address] Dr. Kirk García ALP [Catalytic activity/Vol] 76 U/L Normal 46-116 [facility] Comment on above: Performed By: #### C MP #### [facility] Laboratory [address] [address] [address] Kirk García ALT [Catalytic activity/Vol] 27 U/L Normal 16-63 [facility] Comment on above: Performed By: #### C MP #### [facility] [address] [address] [address] Kirk García Anion gap [Moles/Vol] 8.9 mmol/L Normal [facility] Comment on above: Performed By: #### C MP #### [facility] [address] [address] [address] Kirk García AST [Catalytic activity/Vol] 17 U/L Normal 15-37 [facility] Comment on above: Performed By: #### C MP #### [facility] [address] [address] [address] Kirk García Bilirubin [Mass/Vol] 1.3 mg/dL Critically high 0.2-1.0 [facility] Comment on above: Performed By: #### C MP #### [facility] [address] [address] [address] Kirk García Calcium [Mass/Vol] 8.1 mg/dL Critically low 8.5-10.1 Th [facility] Comment on above: Performed By: #### C MP #### [facility] [address] [place] [address] Dr. Kirk García Chloride [Moles/Vol] 94 mmol/L Critically low 98-107 [facility] Comment on above: Performed By: #### C MP #### [facility] [address] [address] [address] Kirk García CO2 [Moles/Vol] 27.5 mmol/L Normal 21.0-32.0 The [facility] Comment on above: Performed By: #### C MP #### [facility] [address] [place] [address] Dr. Kirk García Creatinine [Mass/Vol] 1.65 mg/dL Critically high 0.70-1.30 [facility] Comment on above: Performed By: #### C MP #### [facility] [address] [place] [address] Dr. Kirk García EGFR-AF CHILEAN 48 mL/min/1.73m2 Critically low >=60 [facility] Comment on above: Performed By: #### C MP #### [facility] [address] [address] [address] Kirk García EGFR-NON AF CHILEAN 40 mL/min/1.73m2 Critically low >=60 [facility] Comment on above: Performed By: #### C MP #### [facility] [address] [address] [address] Kirk García Globulin (S) [Mass/Vol] 4.5 g/dL Normal [facility] Comment on above: Performed By: #### C MP #### [facility] [address] [address] [address] Kirk García Glucose [Mass/Vol] 118 mg/dL Critically high 74-106 T [facility] Comment on above: Performed By: #### C MP #### [facility] [address] [address] [address] Kirk García Potassium [Moles/Vol] 4.4 mmol/L Normal 3.5-5.1 [facility] Comment on above: Performed By: #### C MP #### [facility] [address] [address] [address] Kirk García Protein [Mass/Vol] 7.5 g/dL Normal 6.4-8.2 [facility] Comment on above: Performed By: #### C MP #### [facility] [address] [address] [address] Kirk García Sodium [Moles/Vol] 126 mmol/L Critically low 136-145 Th [facility] Comment on above: Performed By: #### C MP #### [facility] [address] [address] [address] Kirk García Urea nitrogen [Mass/Vol] 36.0 mg/dL Critically high 7.0-18.0 [facility] Comment on above: Performed By: #### C MP #### [facility] [address] [address] [address] Kirk García Urea nitrogen/Creatinin e [Mass ratio] 21.8 mg/mg Normal The [facility] Comment on above: Performed By: #### C MP #### [facility] [address] [address] [address] Kirk García STREPT SCREENon 08-03-2022 STREP SCREEN A Negative Normal NEGATIVE The [facility] Comment on above: Performed By: #### U MICRO, ERUR #### [facility] [address] [address] [address] Kirk García XR CHEST 1 Von [...] MILAGROS REEDER Date: 2022-08-03 12:55 Normal The [facility] CBC AUTO DIFFon 07-08-2022 BASO # 0.0 103/ul Normal 0.0-0.1 [facility] Comment on above: Performed By: #### C BC #### [facility] [address] [address] [address] Kirk García Basophils/100 WBC (Bld) 0.5 % Normal 0.2-2.0 The [facility] Comment on above: Performed By: #### C BC #### [facility] [address] [id number] [address] Kirk García EO # 0.1 103/ul Normal 0.0-0.7 [facility] Comment on above: Performed By: #### C BC #### [facility] [address] [id number] [address] Kirk García Eosinophils/100 WBC (Bld) 1.4 % Normal 0.9-7.0 [facility] Comment on above: Performed By: #### C BC #### [facility] [address] [place] [address] Dr. Kirk García Erythrocyte distribution width (RBC) [Ratio] 13.4 % Normal 11.0-15.0 [facility] Comment on above: Performed By: #### C BC #### [facility] [address] [place] [address] Dr. Kirk García Hematocrit (Bld) [Volume fraction] 39.6 % Critically low 42.0-54.0 [facility] Comment on above: Performed By: #### C BC #### [facility] [address] [place] [address] Dr. Kirk García Hemoglobin (Bld) [Mass/Vol] 13.2 g/dL Critically low 14.0-18.0 [facility] Comment on above: Performed By: #### C BC #### [facility] [address] [place] [address] Dr. Kirk García IG # 0.02 10e3/ul Normal 0.00-0.03 [facility] Comment on above: Performed By: #### C BC #### [facility] [address] [place] [address] Dr. Kirk García IG % 0.3 % Normal 0.0-0.5 [facility] Comment on above: Performed By: #### C BC #### [facility] [address] [place] [address] Dr. Kirk García LYMPH # 1.7 103/ul Normal 1.2-3.8 [facility] Comment on above: Performed By: #### C BC #### [facility] [address] [place] [address] Dr. Kirk García Lymphocytes/100 WBC (Bld) 28.7 % Normal 20.5-60.0 [facility] Comment on above: Performed By: #### C BC #### [facility] [address] [place] [address] Dr. Kirk García MANUAL DIFF REQ NO Normal [facility] Comment on above: Performed By: #### C BC #### [facility] [address] [address] [address] Kirk García MCH (RBC) [Entitic mass] 34.4 pg Critically high 25.9-34.0 [facility] Comment on above: Performed By: #### C BC #### [facility] [address] [place] [address] Dr. Kirk García MCHC (RBC) [Mass/Vol] 33.3 g/dL Normal 29.9-35.2 The [facility] Comment on above: Performed By: #### C BC #### [facility] [address] [place] [address] Dr. Kirk García MCV (RBC) [Entitic vol] 103.1 fL Critically high 80.0-94.0 [facility] Comment on above: Performed By: #### C BC #### [facility] [address] [place] [address] Dr. Kirk García MONO # 0.9 103/ul Critically high 0.3-0.8 [facility] Comment on above: Performed By: #### C BC #### [facility] [address] [place] [address] Dr. Kirk García Monocytes/100 WBC (Bld) 15.8 % Critically high 1.7-12.0 [facility] Comment on above: Performed By: #### C BC #### [facility] [address] [place] [address] Dr. Kirk García NEUT # 3.1 103/ul Normal 1.4-6.5 The [facility] Comment on above: Performed By: #### C BC #### [facility] [address] [place] [address] Dr. Kirk García Neutrophils/100 WBC (Bld) 53.3 % Normal 43.0-75.0 The [facility] Comment on above: Performed By: #### C BC #### [facility] [address] [place] [address] Dr. Kirk García Platelet mean volume (Bld) [Entitic vol] 10.6 fL Normal 9.5-13.5 [facility] Comment on above: Performed By: #### C BC #### [facility] [address] [address] [address] Kirk García PLT 147 103/ul Critically low 150-450 [facility] Comment on above: Performed By: #### C BC #### [facility] [address] [place] [address] Dr. Kirk García RBC 3.84 106/ul Critically low 4.70-6.10 [facility] Comment on above: Performed By: #### C BC #### [facility] [address] [place] [address] Dr. Kirk García WBC 5.9 103/ul Normal 4.0-11.0 [facility] Comment on above: Performed By: #### C BC #### [facility] [address] [place] [address] Dr. Kirk García DIGOXINon 07-08-2022 DIG 1.1 ng/mL Normal 0.9-2.0 [facility] Comment on above: Performed By: #### U MICRO, ERUR #### [facility] [address] [place] [address] Dr. Kirk García PROF CHEM 8 (BAS METB)on Anion gap [Moles/Vol] 13.6 mmol/L Normal [facility] Comment on above: Performed By: #### U MICRO, ERUR #### [facility] [address] [place] [address] Dr. Kirk García Calcium [Mass/Vol] 9.5 mg/dL Normal 8.5-10.1 [facility] Comment on above: Performed By: #### U MICRO, ERUR #### [facility] [address] [place] [address] Dr. Kirk García Chloride [Moles/Vol] 97 mmol/L Critically low 98-107 [facility] Comment on above: Performed By: #### U MICRO, ERUR #### [facility] [address] [place] [address] Dr. Kirk García CO2 [Moles/Vol] 28.8 mmol/L Normal 21.0-32.0 [facility] Comment on above: Performed By: #### U MICRO, ERUR #### [facility] [address] [place] [address] Dr. iKrk García Creatinine [Mass/Vol] 1.43 mg/dL Critically high 0.70-1.30 [facility] Comment on above: Performed By: #### U MICRO, ERUR #### [facility] [address] [address] [address] Kirk García EGFR-AF CHILEAN 57 mL/min/1.73m2 Critically low >=60 [facility] Comment on above: Performed By: #### U MICRO, ERUR #### [facility] [address] [place] [address] Dr. Kirk García EGFR-NON AF CHILEAN 47 mL/min/1.73m2 Critically low >=60 [facility] Comment on above: Performed By: #### U MICRO, ERUR #### [facility] [address] [place] [address] Dr. Kirk García Glucose [Mass/Vol] 99 mg/dL Normal 74-106 [facility] Comment on above: Performed By: #### U MICRO, ERUR #### [facility] [address] [place] [address] Dr. Kirk García Potassium [Moles/Vol] 4.4 mmol/L Normal 3.5-5.1 [facility] Comment on above: Performed By: #### U MICRO, ERUR #### [facility] [address] [place] [address] Dr. Kirk García Sodium [Moles/Vol] 135 mmol/L Critically low 136-145 Th [facility] Comment on above: Performed By: #### U MICRO, ERUR #### [facility] [address] [place] [address] Dr. Kirk García Urea nitrogen [Mass/Vol] 29.0 mg/dL Critically high 7.0-18.0 [facility] Comment on above: Performed By: #### U MICRO, ERUR #### [facility] [address] [place], [place] [address] Dr. Kirk García Urea nitrogen/Creatinin e [Mass ratio] 20.3 mg/mg Normal The [facility] Comment on above: Performed By: #### U MICRO, JIMR #### [facility] [address] [place], [place] [address] Dr. Kirk García Patient Educationon 03-16-20 Patient [...] Are older than age 65. ? Are -Malaysian. ? Are obese. ? Have a family [...] Follow these instructions at home: ? Take hhlx-xky-fymgjbx and prescription medicines only as told by [...] cancer specialis (more content not included)... Normal [facility] Urology Office/Clinic Noteon 03-16-2022 Urology Office/Clinic [...] E&M of Est. Patient Moderate 30-39 Min 13454 Measure Post Void residual urine and/or bladder capacity by US- non-imaging 74914 Urnls Dip Stick Auto w/o Microscopy POC 97340 2. History of prostate cancer (Z85.46: Personal history of malignant neoplasm of prostate) s/p brachytherapy in 2004. PSA remained very low. pt decided to have PCP do annual monitoring when he saw PRW March 2021. Ordered: E&M of Est. Patient Moderate 30-39 Min 88931 Measure Post Void residual urine and/or bladder capacity by US- non-imaging 04831 Urnls Dip Stick Auto w/o Microscopy POC 05403 Orders: oxybutynin, 5 mg = 1 tab(s), Oral, Daily, # 90 tab(s), Refills(s) 3, Pharmacy: [facility], 183, cm, 03/16/22 9:10:00 EDT, Height/Length Dosing, 99.3, kg, 03/16/22 9:10:00 EDT, Weight Dosing Follow-up With When Contact Information MARYBETH COOPER PA-C, LORNA Within 6 months [address] [place] [address] Business (1) Additional Instructions: Patient Education Prostate Cancer 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 Normal [facility] Comment on above: Result Comment: Elec [...] Are older than age 65. ? Are -Malaysian. ? Are obese. ? Have a family [...] Follow these instructions at home: ? Take byqi-emi-taijfjn and prescription medicines only as told by [...] cancer specialis (more content not included)... Normal [facility] Urology Office/Clinic Noteon 01-06-2022 Urology Office/Clinic [...] worsen Ordered: Office Visit Level 4 Est 57753 2. History of prostate cancer (Z85.46: Personal history of malignant neoplasm of prostate) s/p brachytherapy in 2004. PSA remained very low. pt decided to have PCP do annual monitoring when he saw PRW at last visit March 2021. 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 Normal [facility] Comment on above: Result Comment: Elec tronically Signed By: KENNETH SHEPARD, MARYBETH Trivedi\.lisa\Date and Time Signed: 01/06/22 16:55 NYDIA Corey 07-29-2021 [facility] Telephone (GENSAXention) HEATHSAMSON ([id number]) 1935 M Date Time Provider Department 07/29/21 DALILA RILEY During your visit today, we recorded the following information about you: Dalila Riley RN 07/29/2021 10:36 AM Signed Spoke with Samson, he is currently still at the hotel and is planning on going to the [facility]. We discussed pain control and did remind patient use of Aleve or Motrin in between narcotics as the narcotics can increase issues with constipation. We did discuss use of Miralax if no Bm by Monday and patients states GA will help him with that. Encouraged to keep up with water intake especially since no appetite today. 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 - Other [6600] Cmt: post-op Prescriptions as of 07/29/2021 - [...] Status:Closed by DALILA RILEY on 07/29/21 Normal [facility] ANES POSTPROC EVALon 021 ANES POSTPROC EVAL HNO ID: [id number] Author: Ramiro Esquivel MD Service: Anesthesiology Author [...] July 28, 2021 TIME: 1:35 PM CSN: [id number] [facility] ANES PRE-OPon 07-28-2021 ANES PRE-OP HNO ID: [id number] Author: Ramiro Esquivel MD Service: Anesthesiology Author [...] 100 mL Vial-Bag (UNASYN) 3 g INTRAVENOUS Cardiac Specialist to OR - [COMPLETED] acetaminophen 1,000 mg [...] July 28, 2021 TIME: 10:17 AM CSN: [id number] [facility] HISTORY PHYSICALon HISTORY PHYSICAL HNO ID: [id number] Author: Jewel Cary III, MD Service: General [...] DATE: July 28, 2021 TIME: 10:16 AM [facility] OPERATIVE NOon 07-28-2021 OPERATIVE NO HNO ID: [id number] Author: Jewel Cary III, MD Service: General Surgery Author Type: Physician Type: Operative Report Filed: 07/28/2021 11:24 AM Note Text: OPERATIVE REPORT LOG ID: [id number] SURGERY/PROCEDURE DATE: 07/28/2021 INCISION/PROCEDURE START TIME: 10:47 AM INCISION CLOSE/PROCEDURE END TIME: 11:24 AM SURGEON: Jewel Cary III, MD ?? CONDUIT HELPER: Monserrat Salazar PA-C? ? OPERATION: Laparoscopic cholecystectomy (75342). ? ANESTHESIA: GETA and 10 mL of [...] July 28, 2021 TIME: 11:22 AM Normal [facility] SURGICAL PATHOLOGYon SURGICAL PATHOLOGY Specimen originated from [facility] Specimen #: [id number] Submitting Physician: JEWEL CARY MD FINAL DIAGNOSIS [...] The mucosa is walker-red, hyperemic, and granular. Candle Maker sections are submitted as follows: A1 cystic duct margin and wall, A2 fundus. SLE/ch 07/28/2021 Gross examination performed at [facility], [address] [place] [id number] Date of Report: 07/29/2021 Date of Procedure: 07/28/2021 Date of Receipt: 07/28/2021 Submitted by: JEWEL CARY MD Location: AV Diagnostic interpretation performed at [facility], [facility] [address], [place] [address]. CLIA Number: [id number] Normal [facility] Reference Lab Comment on above: Performed By: #### S #### See report for performing lab information. HISTORY PHYSICALon HISTORY PHYSICAL HNO ID: [id number] Author: Denita Simmons PA-C Service: ? Author Type: Physician Registered Safety Engineer Type: HANDP Filed: 07/19/2021 4:18 PM Note [...] in November 2019. He was admitted to [facility] due to Yuni cystitis. Providers at that [...] 20's - PACEMAKER 2006 - PACEMAKER 01/2021 [employer] placed - PAST SURGICAL HISTORY OF [...] fevers. Neuro: No history of TIA's, stroke, SNOWBOARD DESIGNER tumor, impaired sensorium, hemiplegia, paraplegia or quadraplegia. No neurological symptoms or problems. Respiratory: Negative for Asthma, Dyspnea, Tobacco Use, URI < 2 weeks +PND - can rarely trigger cough, but stable, no acute symptoms Cardiovascular: +Pacemaker ([place] [facility]) - A-fib hx, CHB no symptoms +Heart failure - on digoxin, Lasix. Chronic lower extremity edema. +Valve history - s/p Mitral and tricuspid repair 2017 - Dr. Adrianna Geiger - Ra (more content not included)... Normal [facility] CNCOon 07-13-2021 CNCO Letter Text Normal [facility] CNPNon 07-13-2021 FEDERICON Telephone (GENSAV) SAMSON JOE ([id number]) 1935 M Date Time Provider Department 07/13/21 JEWEL CARY III During your visit today, we recorded the following information about you: Marybeth Laureano 07/13/2021 12:24 PM Signed Pt was seen by Dr. Cary. Pt has been recommended for lap rima w raul under general. Please advise if pt has Cardiac clearance and can stop ASA for 7 days prior to surgery date. Pt scheduled on 07-21-21 for surgery. Please notify general surgeons office by routing message back to Angel ROSARIO HOSTAGE NEGOTIATOR, prior to notifying the patient. Marybeth Laureano 07/13/2021 1:53 PM Signed Pt seeing Zach Geiger @ [place] [address] Will send clearance to this provider Cat Gibbs 07/15/2021 11:03 AM Signed Cari from [place] Geiger's office called and asked to have clearance letter fax to [phone]. Thank you. Marybeth Laureano 07/15/2021 11:21 AM Signed Letter reprinted and faxed to [place] office with confirmation received. Denita Simmons PA-C [...] 12/05/2019 12/09/2019 Encounter Status:Closed by GEORGIEMILMARYBETH on 07/13/21 Normal [facility] Leora 07-12-2021 CNPN Telephone (GENSAV) SAMSON JOE ([id number]) 1935 M Date Time Provider Department 07/12/21 JEWEL CARY III GENSAAristeo During your visit today, we recorded the following information about you: Marybeth Georgi 07/13/2021 2:08 PM Addendum Cur received Pt needs cardiac clearance Dr Kody Lynn Tele enct sent Spoke w pt he now sees Dr Adrianna Geiger at [facility]. Letter electronically sent. Marybeth Georgi 07/13/2021 3:25 PM Signed electronic faxed failed printed and sent to verified fax number of [phone]. Confirmed received. Marybeth Georgi 07/19/2021 3:02 PM [...] Encounter Status:Closed by MARYBETH LAUREANO on 07/19/21 [facility] HISTORY PHYSICALon HISTORY PHYSICAL HNO ID: [id number] Author: Jewel Cray III, MD Service: ? Author Type: Physician [...] for internal providers or letter via the [employer] for external providers. HISTORY: He [...] stored in (more content not included)... Normal [facility] OPERATIVE REPORTon OPERATIVE REPORT NAME: SAMSON JOE MR#: [id number] SURGEON: Adrianna Geiger MD DATE OF SURGERY: 02/01/2021 OPERATIVE REPORT PREOPERATIVE DIAGNOSIS: End of life pacemaker pulse generator. POSTOPERATIVE DIAGNOSIS: End of life pacemaker pulse generator. PROCEDURE: Change out of end of life pacemaker pulse generator. DESCRIPTION OF PROCEDURE: call specialist to the OR, he received 1 g [...] inserted. The new pulse generator is a Ignyta Accolade MRI safe pacemaker, model #L311 serial #[id number]. The pulse generator was attached to the [...] of the day today. ADRIANNA GEIGER MD RJS/RAINAL/[id number] E/S: Adrianna Geiger MD 02/08/21 0856 Electronically Signed [facility] PT NAME: SAMSON JOE MR#: [id number] [address] [place] [address] ACCT: [id number] : [birth year] OPERATIVE REPORT Normal [facility] SURGon 02-01-2021 SURG Normal [facility] Comment on above: Result Comment: RUN DATE: 02/02/21 [facility] LAB *LIVE* PAGE 1RUN TIME: 1351 Specimen InquiryRUN USER: JoGuru Name: SAMSON JOE : [birth year] Sex:M Attend Dr: Adrianna Geiger [facility]#: [id number] Unit#: [id number] Status: [facility] Location: ANA MARIA SiddiqiS17-01 Received: 02/01/21 Status: PRIYANKA Patterson#: [id number]#: [id number] Collected: 02/01/21-123 [facility] Dr: Adrianna Geiger MDTISSUES: A. EXPLANTED HARDWARE MICROSCOPIC EXAM: N/A DIAGNOSIS: EXPLANTED HARDWARE, REMOVAL: - PULSE GENERATOR (GROSS DIAGNOSIS ONLY) Signed Signature on File KT SCHAFER 02/02/21 1351 [facility] Name: SAMSON JOE [facility] Hosp Num: [id number] A Ministry of Age / Sex: 85/M [facility] Physician: Adrianna Geiger MD [facility] [place] [address] Location: SAME DAY SURGERY END OF REPORT Performed By: #### P SURG ####Test performed at: [place] [address] Vital Signs Date Time Vital Sign Value Performing Clinician Facility 11-22-2023 10:00-0500 Body height 182.88 cm Timo Bar Other [facility] Other 11-22-2023 10:00-0500 Body mass index (BMI) [Ratio] 28.67 kg/m2 Timo Bar Other [facility] Other 11-22-2023 10:00-0500 Body weight 95.89 kg Timo Ball Other [facility] Other 11-22-2023 10:00-0500 Diastolic blood pressure 64 mm[Hg] Timo Ball Other [facility] Other 11-22-2023 10:00-0500 Respiratory rate 16 /min Timo Ball Other [facility] Other 11-22-2023 10:00-0500 SaO2% (BldA) [Mass fraction] 95 % Timo Ball Other [facility] Other 11-22-2023 10:00-0500 Systolic blood pressure 102 mm[Hg] Timo Ball Other [facility] Other 10-03-2023 13:45-0500 Body height 182.88 cm Timo Ball Other [facility] Other 10-03-2023 13:45-0500 Body mass index (BMI) [Ratio] 29.02 kg/m2 Timo Ball Other [facility] Other 10-03-2023 13:45-0500 Body weight 97.07 kg Timo Ball Other [facility] Other 10-03-2023 13:45-0500 Diastolic blood pressure 67 mm[Hg] Timo Ball Other [facility] Other 10-03-2023 13:45-0500 Respiratory rate 16 /min Timo Ball Other [facility] Other 10-03-2023 13:45-0500 Systolic blood pressure 106 mm[Hg] Timo Ball Other [facility] Other 09-29-2023 13:45-0400 Body height 182.88 cm Timo Ball Other [facility] Other 08-31-2023 11:00-0400 Body height 182.88 cm Timo Ball Other [facility] Other 08-31-2023 11:00-0400 Body mass index (BMI) [Ratio] 28.23 kg/m2 Timo Ball Other [facility] Other 08-31-2023 11:00-0400 Body weight 94.44 kg Timo Ball Other [facility] Other 08-31-2023 11:00-0400 Diastolic blood pressure 61 mm[Hg] Timo Ball Other [facility] Other 08-31-2023 11:00-0400 Respiratory rate 12 /min Timo Ball Other [facility] Other 08-31-2023 11:00-0400 Systolic blood pressure 105 mm[Hg] Timo Ball Other [facility] Other 05-26-2023 11:00-0400 Body height 182.88 cm Timo Ball Other [facility] Other 05-26-2023 11:00-0400 Body mass index (BMI) [Ratio] 28.69 kg/m2 Timo Ball Other [facility] Other 05-26-2023 11:00-0400 Body weight 95.98 kg Timo Ball Other [facility] Other 05-26-2023 11:00-0400 Diastolic blood pressure 66 mm[Hg] Timo Ball Other [facility] Other 05-26-2023 11:00-0400 Respiratory rate 16 /min Timo Ball Other [facility] Other 05-26-2023 11:00-0400 Systolic blood pressure 116 mm[Hg] Timo Ball Other [facility] Other 01-20-2023 11:00-0500 Body height 182.88 cm Timo Ball Other [facility] Other 01-20-2023 11:00-0500 Body mass index (BMI) [Ratio] 28.53 kg/m2 Timo Ball Other [facility] Other 01-20-2023 11:00-0500 Body weight 95.44 kg Timo Ball Other [facility] Other 01-20-2023 11:00-0500 Diastolic blood pressure 64 mm[Hg] Timo Ball Other [facility] Other 01-20-2023 11:00-0500 Respiratory rate 16 /min Timo Ball Other [facility] Other 01-20-2023 11:00-0500 Systolic blood pressure 102 mm[Hg] Timo Ball Other [facility] Other 09-21-2022 12:18-0400 Blood Pressure Location MARYBETH KENNETH [facility] 09-21-2022 12:18-0400 Diastolic blood pressure 58 mm[Hg] MARYBETH KENNETH [facility] 09-21-2022 12:18-0400 Heart rate 80 /min MARYBETH KENNETH [facility] 09-21-2022 12:18-0400 Respiratory rate 16 /min MARYBETHKOURTNEY COOPER [facility] 09-21-2022 12:18-0400 Systolic blood pressure 111 mm[Hg] MARYBETH KENNETH [facility] 03-16-2022 08:49-0400 Blood Pressure Location MARYBETHKOURTNEY MOTARY [facility] 03-16-2022 08:49-0400 Diastolic blood pressure 65 mm[Hg] MARYBETH KENNETH [facility] 03-16-2022 08:49-0400 Heart rate 75 /min MARYBETH COOPER [facility] 03-16-2022 08:49-0400 Systolic blood pressure 93 mm[Hg] MARYBETH KENNETH [facility] Encounters Encounter Date Encounter Type Care Provider Facility Start: 01-01-2024 End: 01-01-2024 ambulatory [facility] Start: 12-29-2023 End: 12-29-2023 ambulatory Timo Bar Other [facility] Other Start: 12-29-2023 Telephone encounter Timo Bar [facility] Start: 12-26-2023 End: 12-26-2023 ambulatory EDDIE WEISS Not Available Start: 12-20-2023 End: 12-20-2023 ambulatory Timo Bar Other [facility] Other Start: 12-20-2023 Telephone encounter Timo Ball [facility] Start: 12-15-2023 End: 12-15-2023 ambulatory Timo Penny Other [facility] Other Start: 12-15-2023 Telephone encounter Timo Ball [facility] Start: 12-11-2023 End: 12-11-2023 ambulatory Timo Ball Other [facility] Other Start: 12-11-2023 Telephone encounter Timo Ball [facility] Start: 12-05-2023 End: 12-05-2023 ambulatory Timo Ball Other [facility] Other Start: 12-05-2023 Telephone encounter Timo Ball [facility] Start: 11-22-2023 End: 11-22-2023 ambulatory Timo Ball Other [facility] Other Start: 11-22-2023 Telephone encounter Timo Ball [facility] Start: 11-22-2023 Transitional care carlie villasenor srvc 14 day discharge Timo Ball [facility] Start: 11-17-2023 End: 11-17-2023 ambulatory Timo Ball Other [facility] Other Start: 11-17-2023 Telephone encounter Timo Ball [facility] Start: 10-04-2023 End: 10-04-2023 ambulatory Timo Ball Other [facility] Other Start: 10-04-2023 Telephone encounter Timo Ball [facility] Start: 10-03-2023 End: 10-03-2023 ambulatory Timo Ball Other [facility] Other Start: 10-03-2023 Office outpatient vi sit 15 minutes Timo Ball [facility] Start: 09-29-2023 End: 09-29-2023 ambulatory Timo Ball Other [facility] Other Start: 09-29-2023 Nursing evaluation o f patient and report Timo Penny [facility] Start: 09-06-2023 End: 09-06-2023 ambulatory Timo Bar Other [facility] Other Start: 09-06-2023 Telephone encounter Timo Bar [facility] Start: 08-31-2023 End: 08-31-2023 ambulatory Timo Bar Other [facility] Other Start: 08-31-2023 Patient encounter procedure Timo Penny [facility] Start: 05-26-2023 End: 05-26-2023 ambulatory Timo Bar Other [facility] Other Start: 05-26-2023 Office outpatient vi sit 25 minutes Timo Penny [facility] Start: 05-02-2023 End: 05-02-2023 ambulatory [facility] Start: 04-17-2023 End: 04-17-2023 ambulatory [facility] Start: 01-20-2023 End: 01-20-2023 ambulatory Timo Penny Other [facility] Other Start: 01-20-2023 Office outpatient vi sit 25 minutes Timo Bar [facility] Start: 09-21-2022 End: 09-22-2022 ambulatory MARYBETH COOPER Facility: [place] Start: 09-21-2022 End: 09-21-2022 Patient encounter procedure MARYBETH COOPER [facility] Start: 09-06-2022 End: 09-07-[address] TIMO BAR Facility:[facility] Start: 08-14-2022 End: 08-15-[address] TIMO BAR Facility:[facility] Start: 08-03-2022 End: 08-04-[address] TIMO BAR Facility:[facility] Start: 07-08-2022 End: 07-09-[address] TIMO BAR Facility:[facility] Start: 03-16-2022 End: 03-17-2022 ambulatory MARYBETHKOURTNEY COOPER Facility:[facility] [place] Start: 03-16-2022 End: 03-16-2022 Patient encounter procedure MARYBETH COOPER [facility] Start: 01-06-2022 End: 01-07-2022 ambulatory MARYBETHVANI COOPER Facility:[facility] [place] Start: 01-05-2022 ambulatory MARYBETHVANI COOPER Facility :[facility] Start: 12-07-2018 Patient encounter procedure Facility:[id number] Start: 12-06-2018 Patient encounter procedure Facility:[id number] Procedures Date Procedure Procedure Detail Performing Clinician Start: 07-08-[address] KUSH BAR Comment on above: Performed By: #### U MICRO, ERUR #### [facility] [address] [place] [address] Dr. Kirk García Start: 07-28-2021 Cholecystectomy SHADIA COOPER Start: 11-27-2006 Colonoscopy MARYBETH Angel GRAVES Start: 11-27-2004 Implantation of radi oactive seed into prostate MARYBETH COOPER Repair of right ingu inal hernia MARYBETH COOPER Transrectal biopsy o f prostate using ultrasound guidance MARYBETH COOPER Immunizations Immunization Date Immunization Notes Care Provider Dari pérez 09-29-2023 influenza, high dose seasonal, preservative-free Timo Bar Other [facility] Other 09-07-2022 influenza virus vaccine, split virus (incl. purified surface antigen) Timo Bar Other [facility] Other 04-26-2022 SARS-CoV-2 mRNA (eefufnglqdg-ctmr-craqn se) vaccine MARYBETH KENNETH [facility] 09-02-2021 SARS-CoV-2 (COVID-19 ) mRNA BNT-162b2 vax MARYBETH KENNETH [facility] 08-18-2021 influenza virus vaccine, unspecified formulation MARYBETH KENNETH [facility] 08-13-2021 influenza virus vaccine, split virus (incl. purified surface antigen) Timo Bar Other [facility] Other 02-23-2021 SARS-CoV-2 (COVID-19 ) mRNA BNT-162b2 vax MARYBETH COOPER [facility] 02-03-2021 SARS-CoV-2 (COVID-19 ) mRNA BNT-162b2 vax MARYBETH COOPER [facility] Comment on above: Result Comment: 2021: [id number] 01-25-2021 SARS-CoV-2 (COVID-19 ) mRNA BNT-162b2 vax MARYBETHVANI COOPER [facility] 08-31-2020 influenza virus vaccine, split virus (incl. purified surface antigen) Timo Bar Other [facility] Other 08-30-2019 influenza virus vaccine, split virus (incl. purified surface antigen) Timo Bar Other [facility] Other 08-30-2019 influenza virus vaccine, unspecified formulation MARYBETHKOURTNEY COOPER [facility] 08-29-2018 influenza virus vaccine, split virus (incl. purified surface antigen) Timo Bar Other [facility] Other 08-29-2018 influenza virus vaccine, unspecified formulation MARYBETH COOPER [facility] 08-03-2017 influenza virus vaccine, split virus (incl. purified surface antigen) Timo Penny Other [facility] Other 08-03-2017 influenza virus vaccine, unspecified formulation MARYBETH COOPER [facility] 09-05-2016 influenza virus vaccine, split virus (incl. purified surface antigen) Timo Penny Other [facility] Other 09-05-2016 influenza virus vaccine, unspecified formulation MARYBETH COOPER [facility] 10-16-2015 pneumococcal conjuga te vaccine, 13 valent Timo Bar Other [facility] Other 09-01-2015 influenza virus vaccine, split virus (incl. purified surface antigen) Timo Bar Other [facility] Other 09-15-2014 tetanus and diphther ia toxoids, adsorbed, preservative free, for adult use (5 Lf of tetanus toxoid and 2 Lf of diphtheria toxoid) Timo Bar Other [facility] Other 08-27-2013 tetanus and diphther ia toxoids, adsorbed, preservative free, for adult use (5 Lf of tetanus toxoid and 2 Lf of diphtheria toxoid) Timo Bar Other [facility] Other 01-10-2007 pneumococcal polysaccharide vaccine, 23 valent Timo Bar Other [facility] Other 1999 pneumococcal polysaccharide vaccine, 23 valent MARYBETH COOPER [facility] Payers Date Payer Category Payer Unknown [id number] 1960 Medicare [id number] 1960 Unknown [id number] 1935 Unknown [id number] 2.16. [id number] 1934 Unknown [id number] 2.16. [id number] 1934 Unknown [id number] 2.16.8 [id number] 1934 Unknown [id number] 2.16.8 40.1.325781.3.579.2.727 1934 Unknown [id number] 2.16.8 40.1.560257.3.579.2.727 1934 Unknown [id number] 2.16.8 40.1.062124.3.579.2.727 1934 Unknown [id number] 2.16.8 40.1.944412.3.579.2.727 1934 Unknown [id number] 2.16.84 0.1.676393.3.579.2.593 1934 Unknown [id number] 2.16.84 0.1.999997.3.579.2.593 1934 Unknown [id number] 2.16.84 0.1.764084.3.579.2.593 1934 Unknown [id number] 2.16.84 0.1.594553.3.579.2.593 1934 Unknown [id number] 2.16.84 [id number] Medicare [id number] Unknown [id number] 2.16.8 40.1.101422.19 Social History Date Type Detail Facility Start: 03-16-2022 End: 09-21-2022 Tobacco smoking status Never smoked tobacco (finding) [facility] Tobacco smoking status Never [facility] Sex Assigned At Male [facility] Functional Status Date Assessment Result Facility 09-21-2022 Functional Status N/A [facility] Clinical Notes 07-28-2021 to 01-01-2024 Note Date & Type Note Facility 01-01-2024 Note Patient here for 6 m o follow up and device check. He was admitted to [facility] in Oct 2023 and was seen by Consuelo Calvin CNP as inpatient consult for CHF. He was admitted again last month for CHF. Metoprolol was switched to XL version. He was advised to take afternoon dose of lasix, but sometimes he forgets. Had labs this morning. Denies chest pain, palpitations, and lightheadedness/syncope. C/o LE edema and SOB. Review of Systems Eyes: Positive for vision loss in left eye and vision loss in right eye. Cardiovascular: Positive for dyspnea on exertion and leg swelling. Respiratory: Positive for cough. All other systems reviewed and are negative. [facility] 12-29-2023 Evaluation note Encounter Date Diagnosis Assessment Notes Dec, Anemia (ICD-10 - D64.9) [facility] Other 01-03-2024 NoteThis report has been cancelled. [facility]01-03-2024 NoteThis report has been cancelled.[facility]01-03-2024 NoteThis report has been cancelled.[facility]01-03-2024 NoteThis report has been cancelled.[facility]01-03-2024 NoteThis report has been cancelled.[facility]01-03-2024 NoteThis report has been cancelled.[facility]01-03-2024 NoteThis report has been cancelled.[facility]12-27-2023 Evaluation note* Encounter Date Diagnosis Assessment Notes [...] are maintaining regular scheduled appts with their tape folding machine operator. s/p LAAO procedure, off anticoagulation [...] I44.1) PM inserted PM checkups every 6months. [facility] Other 11-07-2023 Evaluation note* Encounter Date Diagnosis [...] continue exercise to achieve/maintain a normal BMI. [facility] Other 10-05-2023 Evaluation note* Encounter Date Diagnosis [...] are maintaining regular scheduled appts with their tape folding machine operator. No bleeding complications Aug, Chronic [...] (ICD-10 - Z79.899) Check labs: CBC, Dig [facility] Other 06-30-2023 Evaluation note* Encounter Date Diagnosis [...] are maintaining regular scheduled appts with their tape folding machine operator. No bleeding complications Apr, Chronic venous insufficiency (ICD-10 - I87.2) Avoid salt and elevate lower extremities, support stockings, inspect legs and feet daily for blisters and ulcerations. Apr, Second degree heart block (ICD-10 - I44.1) PM inserted, routine PM checks w/ [facility] Apr, History of prostate cancer (ICD-10 - Z85.46) No s/s recurrence. No active treatment at this time. [facility] Other 05-22-2023 NotePatient is here today to establish care Review of Systems HENT: Positive for ear discharge. Eyes: Positive for vision loss in left eye and vision loss in right eye. Respiratory: Positive for cough. All other systems reviewed and are negative.[facility] 04-17-2023 NoteCardiovascular Medicine [facility] SUBJECTIVE Chief Complaint Patient presents with [...] History: Procedure Laterality Date MITRAL VALVE REPAIR 2016 With tricuspid valve repair and CAMERON exclusion [...] -Will ob (more content not included)...[facility] 01-20-2023 Evaluation note* Encounter Date Diagnosis [...] are maintaining regular scheduled appts with their tape folding machine operator. Dec, Nonischemic dilated cardiomyopathy (ICD-10 [...] pacemaker checks q 6 mo. Needs new Rn X Ray, suggest [facility] here in [place] Dec, History of prostate cancer (ICD-10 - Z85.46) No s/s recurrence [facility] Other 10-26-2022 Hospital Discharge instructions Patient Education [...] who: Are older than age 65. Are -Malaysian. Are obese. Have a family history of [...] cells. Follow these instructions at home: Take aanx-ech-yspmzaz and prescription medicines only as told by [...] 11/13/2006 Document Revised: 10/26/2018 Document Reviewed: 07/24/2017 POI Patient Education 2020 [employer]. Follow Up Care 03/16/2022 09:37:24 With:KENNETH SHEPARD, MARYBETH Trivedi, URL Address: [address] [place] [address] [phone] When: only if needed [facility] 04-20-2022 Hospital Discharge instructions Patient Education 03/16/2022 [...] who: Are older than age 65. Are -Malaysian. Are obese. Have a family history of [...] cells. Follow these instructions at home: Take tfae-yms-hvytzet and prescription medicines only as told by [...] 11/13/2006 Document Revised: 10/26/2018 Document Reviewed: 07/24/2017 POI Patient Education 2020 [employer]. Follow Up Care 01/28/2022 16:02:47 With:KENNETH SHEPARD, MARYBETH Trivedi, URL Address: [address] [place], [place] [address] [place] [address] Business (1) When:6 months [facility] 09-21-2021 NoteHNO ID: [id number] Author: Jewel Cary III, MD Service: ? Author Type: Physician Type: Progress Notes Filed: 08/17/2021 9:33 AM Note Text: This patient is post op from laparoscopic cholecystectomy. He has had no symptoms. P.E. The wounds are healing well without evidence of infection. I reviewed the pathology report with Samson. Assessment Satisfactory course Plan: Return to office PRN. Jewel Cary III, [facility]09-01-2021 NoteHNO ID: [id number] Author: Jaspal Phipps APRN.WET PROCESS HEAD MILLER Service: Anesthesiology Author Type: Nurse Ribbon Hand Type: Anesthesia Procedure Notes Filed: 07/28/2021 10:50 AM Note Text: ANESTHESIOLOGY PROCEDURE NOTE Airway General Information Procedure Start Time/Medication Administration: 07/28/2021 10:40 AM Patient location during procedure: OR Patient identity confirmed: arm band and patient Staffing Anesthesiologist: Ramiro Esquivel MD WET PROCESS HEAD MILLER: Jaspal Phipps APRN.WET PROCESS HEAD MILLER Performed by: JASON Indications and Patient Condition [...] to 7.0 ETT-no difficulty. SIGNATURE: Jaspal Phipps APRN.WET PROCESS HEAD MILLER PATIENT NAME: Samson Joe DATE: July 28, 2021 TIME: 10:48 AM CSN: [id number] + [facility] note Future Appointments Appointment Date:09/21/2022 10:00:00 AM Scheduled Provider:MARYBETH COOPER PA-C Location:[facility] Appointment Type:URO Office Visit [facility] evaluation noteNo InformationNort [facility] Other History general Narrative - Reported* Type [...] GALL[facility]ADDER 11/2029 Hospitalization History see surgical history [facility] Other History general Narrative - Reported* Type [...] 20 16 Hospitalization History see surgical history [facility] Other Hospital course Narrative No data available for this section [facility] progress note No data available for this section [facility] Summary Purpose Family History No Family History [...] section and content) DATE CREATED AUTHOR 12/17/2018 [facility] DATE CREATED AUTHOR AUTHOR'S ORGANIZ ATION 07/31/2021 [facility] DATE CREATED AUTHOR AUTHOR'S ORGANIZ ATION 07/31/2021 [facility] DATE CREATED AUTHOR AUTHOR'S ORGANIZ ATION 12/24/2021 [facility] DATE CREATED AUTHOR AUTHOR'S ORGANIZ ATION 12/26/2021 [facility] DATE CREATED AUTHOR AUTHOR'S ORGANIZ ATION 09/22/2022 [facility] DATE CREATED AUTHOR AUTHOR'S ORGANIZ ATION 10/05/2022 [facility] DATE CREATED AUTHOR AUTHOR'S ORGANIZ ATION 12/27/2023 [facility] EPIC DATE CREATED AUTHOR AUTHOR'S ORGANIZ ATION 01/01/2024 [facility] Patient Care team informatio n (unrecognized section and content) Personnel Name: TIMO BAR DO Address: Address: [address] [facility] [place] [place] [address]- REASON FOR VISIT (unrecogniz ed section and content) 6 MONTH FOLLOW UP4 MONTH FOL LOW UPWellnessLab resultsflu shotankle/foot swellingRefillTCOHIOHEALTH O'BLENESS [facility]ITAL HHTBHMedication PriceTCMBlood PressuresBP readingsweight concernRepeat Labs FOR [...] BE BASED ON THE PRIMARY CLINICAL RECORDS. [employer] provides no warranty or guarantee of the accuracy or completeness of information in this document.
[2024-01-08] MEDS: 0.9 % SODIUM CHLORIDE 500 ML IV (17:35)
[2024-01-08 17:44] LABS: Adenovirus NOT DETECTED (NOT DETECTE); Bordetella parapertussis NOT DETECTED (NOT DETECTE); Coronavirus 229E NOT DETECTED (NOT DETECTE); Coronavirus HKU1 NOT DETECTED (NOT DETECTE); Coronavirus NL63 NOT DETECTED (NOT DETECTE); Coronavirus OC43 NOT DETECTED (NOT DETECTE); Human Metapneumovirus NOT DETECTED (NOT DETECTE); Human Rhinovirus/Enterovirus NOT DETECTED (NOT DETECTE); Influenza A NOT DETECTED (NOT DETECTE); Influenza B NOT DETECTED (NOT DETECTE); Mycoplasma pneumoniae NOT DETECTED (NOT DETECTE); Parainfluenza Virus 1 NOT DETECTED (NOT DETECTE); Parainfluenza Virus 2 NOT DETECTED (NOT DETECTE); Parainfluenza Virus 3 NOT DETECTED (NOT DETECTE); Parainfluenza Virus 4 NOT DETECTED (NOT DETECTE); Respiratory Syncytial Virus NOT DETECTED (NOT DETECTE); SARS-CoV-2 NOT DETECTED (NOT DETECTE)
[2024-01-08 18:00] LABS: Basophils Percent Auto 0.5 % (0.2-2.0); Eosinophils Absolute Auto 0.1 10^3/uL (0.0-0.7); Eosinophils Percent Auto 1.3 % (0.9-7.0); Hemoglobin 10.7 g/dL (14.0-18.0); Immature Granulocytes Abs Auto 0.02 10^3/uL (0.00-0.03); Immature Granulocytes Pct Auto 0.5 % (0.0-0.5); Lymphocytes Absolute Auto 0.7 10^3/uL (1.2-3.8); Lymphocytes Percent Auto 17.5 % (20.5-60.0); Mean Corpuscular HGB Conc 32.4 g/dL (29.9-35.2); Mean Corpuscular Hemoglobin 34.9 pg (25.9-34.0); Mean Platelet Volume 11.8 fL (9.5-13.5); Monocytes Absolute Auto 0.6 10^3/uL (0.3-0.8); Monocytes Percent Auto 15.3 % (1.7-12.0); Neutrophils Absolute Auto 2.6 10^3/uL (1.4-6.5); Neutrophils Percent Auto 64.9 % (43.0-75.0); Platelet Count 85 10^3/uL (150-450); Red Blood Count 3.07 10^6/uL (4.70-6.10); Red Cell Distribution Width 16.1 % (11.0-15.0)
[2024-01-08 18:07] LABS: Lactate/Lactic Acid 1.2 mmol/L (0.4-2.0)
[2024-01-08 18:11] LABS: Anion Gap 15.6; BUN Creatinine Ratio 42.8; Calcium 9.4 mg/dL (8.5-10.1); Carbon Dioxide 24.3 mmol/L (21.0-32.0); Chloride 103 mmol/L (98-107); Estimated GFR (African America 48 (>=60); Estimated GFR (Non-African Ame 39 (>=60); Glucose 93 mg/dL (74-106); Potassium 4.9 mmol/L (3.5-5.1); Sodium 138 mmol/L (136-145)
[2024-01-08 18:12] LABS: Alanine Aminotransferase 22 U/L (16-63); Albumin Globulin Ratio 0.8; Albumin Level 3.4 g/dL (3.4-5.0); Alkaline Phosphatase 111 U/L (46-116); Aspartate Amino Transferase 14 U/L (15-37); Bilirubin Direct 0.5 mg/dL (0.0-0.2); Bilirubin Total 1.5 mg/dL (0.2-1.0); Globulin 4.5 g/dL; Total Protein 7.9 g/dL (6.4-8.2)
[2024-01-08 18:15] LABS: Mean Corpuscular Volume 107.5 fL (80.0-94.0)
[2024-01-08 18:18] LABS: PROCALCITONIN <0.05 ng/mL (0.00-0.50)
[2024-01-08 18:30] LABS: Bilirubin Urine NEGATIVE (NEGATIVE); Blood Urine NEGATIVE (NEGATIVE); Clarity Urine CLEAR (CLEAR); Color Urine YELLOW (YELLOW); Glucose Urine UA NEGATIVE (NEGATIVE); Ketones Urine NEGATIVE (NEGATIVE); Leukocyte Esterase Urine NEGATIVE (NEGATIVE); Nitrite Urine NEGATIVE (NEGATIVE); Protein Urine NEGATIVE (NEG/TRACE); Urobilinogen Urine 0.2 EU/dL (0.2-1.0); pH Urine 5.5 (5.0-9.0)
[2024-01-08] MEDS: BUMETANIDE 1 MG/4 ML VIAL IVP (18:31)
[2024-01-08 18:33] LABS: Urine Microscopic Indicated NO
[2024-01-08 19:35] LABS: Troponin I High Sensitivity 43.9 pg/mL (4.0-76.1)
[2024-01-08 20:43] LABS: Free T4 0.97 ng/dL (0.76-1.46)
[2024-01-08 20:47] LABS: Thyroid Stimulating Hormone 17.442 uIU/mL (0.358-3.740)
--- OUTSIDE RECORDS SUMMARY | 2024-01-08 21:40 | XMS_ITS | CCD ---
Author Name Unknown Address [address] [place] [address] [facility] Team Providers Care Terra Cotta Setter Name Role Phone TIMO BAR Primary Care [...] Daily, # 90 tab(s), Refills(s) 3, Pharmacy: [id number], 183, cm, 09/21/22 12:19:00 EDT, Height/Length [...] 08-10-2022 Episodic Other aftercare (6 sources) Other attorney lawyer (current) drug therapy; Translations: [OTH ALF CURRENT DRUG THERAPY] Onset: 07-08-2022 Episodic Other aftercare (1 source) occupational therapist (current) use of aspirin; Translations: [ALF CURRENT USE OF ASPIRIN] Onset: 08-16-2022 Episodic [...] Range Facility Office Visiton 04-17-2023 Follow-up visit [id number] Samson Joe 1935 M Date Provider Department Center 04/17/2023 Stephane-JUAN LUIS CALVIN CARD Alondra Hos No family history on file Level of Service:39922 [place] OFFICE/OUTPATIENT NEW MODERATE MDM 45-59 MINUTES Reason for Visit and Comments: Establish Care [42] Normal [facility] Ambulatory Visit Summaryon 1 Ambulatory Visit Summary HEATH SAMSON Farooq :1935 Visit Date:09/21/2022 Ambulatory Visit Instructions Your Diagnosis Urge incontinence History of prostate cancer Tests Performed Urnls Dip Stick Auto w/o Microscopy POC 78057 Your Care Team Attending Physician - MAYRBETH COOPER PA-C Primary Care Physician - TIMO [...] When: Only if needed Where: [address] [place] [phone] Medications What How Much When Instructions Unchanged oxybutynin (oxybutynin 5 mg ER Tab) 1 Tablets By Mouth Every day Pickup at [facility] Unchanged ascorbic acid (Vitamin C) [...] physician if questions or concerns Pharmacy Information [facility]: [address], [place] [id number] [phone] Test Results Urnls Dip Stick Auto w/o Microscopy POC 06356 (09/21/2022) Bilirubin Urine Dipstick - Negative Blood Urine Dipstick - Negative Glucose Urine Dipstick - Negative Ketones Urine Dipstick - Negative Leukocytes Urine Dipstick - Negative Nitrite Urine Dipstick - Negative Protein Urine Dipstick - Negative Specific [place] Urine Dipstick - 1.015 Urine Appearance Urine [...] hematuria History of prostate cancer Hyperlipidemia Hypertension FDC current use of 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 ? Are -Chilean. ? Are obese. ? Have a family [...] during urination (more content not included)... Normal [facility] Ambulatory Visit Summary SAMSON JOE :1935 Visit Date:09/21/2022 Ambulatory Visit Instructions Your Diagnosis Urge incontinence History of prostate cancer Tests Performed Urnls Dip Stick Auto w/o Microscopy POC 72459 Your Care Team Attending Physician - MARYBETH [...] Only if needed Where: [address] [place] [phone] Medications What How Much When Instructions Unchanged [...] Urnls Dip Stick Auto w/o Microscopy POC 48292 (09/21/2022) Bilirubin Urine Dipstick - Negative Blood Urine Dipstick - Negative Glucose Urine Dipstick - Negative Ketones Urine Dipstick - Negative Leukocytes Urine Dipstick - Negative Nitrite Urine Dipstick - Negative Protein Urine Dipstick - Negative Specific [place] Urine Dipstick - 1.015 Urine Appearance Urine [...] hematuria History of prostate cancer Hyperlipidemia Hypertension FDC current use of 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 ? Are -Chilean. ? Are obese. ? Have a family [...] upper thi (more content not included)... Normal [facility] Patient Educationon 09-21-20 22 Patient Education [...] Are older than age 65. ? Are -Chilean. ? Are obese. ? Have a family [...] Follow these instructions at home: ? Take [id number] and prescription medicines only as told by [...] cancer specialis (more content not included)... Normal [facility] Urology Office/Clinic Noteon 09-21-2022 Urology [...] this time. History of Present Illness staff [facility] reviewed and agree. Review of [...] MARYBETH COOPER PA-C, URL Only if needed [address] [place] [address] [phone] Additional Instructions: Patient Education Prostate Cancer Rebecca [...] hematuria History of prostate cancer Hyperlipidemia Hypertension FDC current use of antithrombotics/antip latelets Post-void dribbling [...] 09/05/2016 Rec (more content not included)... Normal [facility] Comment on above: Result Comment: Elec tronically Signed By: KENNETH SHEPARD, MARYBETH Trivedi\.br\Date and Time Signed: 09/21/22 13:18 EDT CBC AUTO DIFFon 09-06-2022 BASO # 0.0 103/ul Normal 0.0-0.[address] [facility] Comment on above: Performed By: #### C BC #### [facility] [address] [address] [address] Kirk García Basophils/100 WBC (Bld) 0.5 % Normal 0.2-2.[address] [facility] Comment on above: Performed By: #### C BC #### [facility] [address] [address] [address] Kirk García EO # 0.1 103/ul Normal 0.0-0.[address] [facility] Comment on above: Performed By: #### C BC #### [facility] [address] [address] [address] Kirk García Eosinophils/100 WBC (Bld) 1.2 % Normal 0.9-7.[address] [facility] Comment on above: Performed By: #### C BC #### [facility] [address] [address] [address] Kirk García Erythrocyte distribution width (RBC) [Ratio] 14.2 % Normal 11.0-15.[address] [facility] Comment on above: Performed By: #### C BC #### [facility] [address] [place] [address] Dr. Kirk García Hematocrit (Bld) [Volume fraction] 35.6 % Critically low 42.0-54.[address] [facility] Comment on above: Performed By: #### C BC #### [facility] [address] [address] [address] Kirk García Hemoglobin (Bld) [Mass/Vol] 11.7 g/dL Critically low 14.0-18.[address] [facility] Comment on above: Performed By: #### C BC #### [facility] [address] [address] [address] Kirk García IG # 0.04 10e3/ul Critically high 0.00-0.03 [facility] Comment on above: Performed By: #### C BC #### [facility] [address] [place] [address] Dr. Kirk García IG % 0.6 % Critically high 0.0-0.[address] [facility] Comment on above: Performed By: #### C BC #### [facility] [address] [place] [address] Dr. Kirk García LYMPH # 1.7 103/ul Normal 1.2-3.8 [facility] Comment on above: Performed By: #### C BC #### [facility] [address] [place] [address] Dr. Kirk García Lymphocytes/100 WBC (Bld) 25.7 % Normal 20.5-60.[address] [facility] Comment on above: Performed By: #### C BC #### [facility] [address] [place] [address] Dr. Kirk García MANUAL DIFF REQ NO Normal [facility] Comment on above: Performed By: #### C BC #### [facility] [address] [place] [address] Dr. Kirk García MCH (RBC) [Entitic mass] 34.1 pg Critically high 25.9-34.[address] [facility] Comment on above: Performed By: #### C BC #### [facility] [address] [place] [address] Dr. Kirk García MCHC (RBC) [Mass/Vol] 32.9 g/dL Normal 29.9-35.2 [facility] Comment on above: Performed By: #### C BC #### [facility] [address] [place] [address] Dr. Kirk García MCV (RBC) [Entitic vol] 103.8 fL Critically high 80.0-94.0 [facility] Comment on above: Performed By: #### C BC #### [facility] [address] [place] [address] Dr. Kirk García MONO # 1.1 103/ul Critically high 0.3-0.8 [facility] Comment on above: Performed By: #### C BC #### [facility] [address] [address] [address] Kirk García Monocytes/100 WBC (Bld) 17.7 % Critically high 1.7-12.[address] [facility] Comment on above: Performed By: #### C BC #### [facility] [address] [address] [address] Kirk García NEUT # 3.5 103/ul Normal 1.4-6.[address] [facility] Comment on above: Performed By: #### C BC #### [facility] [address] [place] [address] Dr. Kirk García Neutrophils/100 WBC (Bld) 54.3 % Normal 43.0-75.0 [facility] Comment on above: Performed By: #### C BC #### [facility] [address] [place] [address] Dr. Kirk García Platelet mean volume (Bld) [Entitic vol] 10.1 fL Normal 9.5-13.5 [facility] Comment on above: Performed By: #### C BC #### [facility] [address] [place] [address] Dr. Kirk García PLT 153 103/ul Normal 150-450 [facility] Comment on above: Performed By: #### C BC #### [facility] [address] [place] [address] Dr. Kirk García RBC 3.43 106/ul Critically low 4.70-6.10 [facility] Comment on above: Performed By: #### C BC #### [facility] [address] [place] [address] Dr. Kirk García WBC 6.5 103/ul Normal 4.0-11.0 [facility] Comment on above: Performed By: #### C BC #### [facility] [address] [place] [address] Dr. Kirk García PROF CHEM 8 (BAS METB)on Anion gap [Moles/Vol] 10.8 mmol/L Normal [facility] Comment on above: Performed By: #### B MP #### [facility] [address] [address] [address] Kirk García Calcium [Mass/Vol] 9.2 mg/dL Normal 8.5-10.1 [facility] Comment on above: Performed By: #### B MP #### [facility] [address] [address] [address] Kirk García Chloride [Moles/Vol] 101 mmol/L Normal 98-107 [facility] Comment on above: Performed By: #### B MP #### [facility] [address] [address] [address] Kirk García CO2 [Moles/Vol] 30.9 mmol/L Normal 21.0-32.0 [facility] Comment on above: Performed By: #### B MP #### [facility] [address] [place] [address] Dr. Kirk García Creatinine [Mass/Vol] 1.54 mg/dL Critically high 0.70-1.30 [facility] Comment on above: Performed By: #### B MP #### [facility] [address] [address] [address] Kirk García EGFR-AF TAJIK 52 mL/min/1.73m2 Critically low >=60 [facility] Comment on above: Performed By: #### B MP #### [facility] [address] [place] [address] Dr. Kirk García EGFR-NON AF TAJIK 43 mL/min/1.73m2 Critically low >=60 [facility] Comment on above: Performed By: #### B MP #### [facility] [address] [address] [address] Kirk García Glucose [Mass/Vol] 106 mg/dL Normal 74-106 [facility] Comment on above: Performed By: #### B MP #### [facility] [address] [address] [address] Kirk García Potassium [Moles/Vol] 4.7 mmol/L Normal 3.5-5.1 [facility] Comment on above: Performed By: #### B MP #### [facility] [address] [address] [address] Kirk García Sodium [Moles/Vol] 138 mmol/L Normal 136-145 [facility] Comment on above: Performed By: #### B MP #### [facility] [address] [address] [address] Kirk García Urea nitrogen [Mass/Vol] 28.0 mg/dL Critically high 7.0-18.[address] [facility] Comment on above: Performed By: #### B MP #### [facility] [address] [address] [address] Kirk García Urea nitrogen/Creatinin e [Mass ratio] 18.2 mg/mg Normal [facility] Comment on above: Performed By: #### B MP #### [facility] [address] [place] [address] Dr. Kirk García CBC W MANUAL DIFFon 08-15-20 22 ATYPICAL LYMPH # 1.62 103/ul Normal [facility] Comment on above: Performed By: #### U MICRO, ERUR #### [facility] [address] [place] [address] Dr. Kirk García ATYPICAL LYMPH % 12 % Normal [facility] Comment on above: Performed By: #### U MICRO, ERUR #### [facility] [address] [place] [address] Dr. Kirk García BAND # 0.1 103/ul Normal 0.0-0.3 [facility] Comment on above: Performed By: #### U MICRO, ERUR #### [facility] [address] [place] [address] Dr. Kirk García BAND % 1 % Normal 0-5 [facility] Comment on above: Performed By: #### U MICRO, ERUR #### [facility] [address] [place] [address] Dr. Kirk García BASOM # 0.14 103/ul Critically high 0.00-0.10 [facility] Comment on above: Performed By: #### U MICRO, ERUR #### [facility] [address] [place] [address] Dr. Kirk García BASOM % 1.0 % Normal 0.2-2.[address] [facility] Comment on above: Performed By: #### U MICRO, ERUR #### [facility] [address] [place] [address] Dr. Kirk García BLAST # Normal [facility] Comment on above: Performed By: #### U MICRO, ERUR #### [facility] [address] [place] [address] Dr. Kirk García BLAST % Normal [facility] Comment on above: Performed By: #### U MICRO, ERUR #### [facility] [address] [place] [address] Dr. Kirk García CORRECTED WBC Normal 4.0-11.0 [facility] Comment on above: Performed By: #### U MICRO, ERUR #### [facility] [address] [place] [address] Dr. Kirk García EOS # 0.14 103/ul Normal 0.00-0.[address] [facility] Comment on above: Performed By: #### U MICRO, ERUR #### [facility] [address] [place] [address] Dr. Kirk García EOS% 1.0 % Normal 0.9-7.[address] [facility] Comment on above: Performed By: #### U MICRO, ERUR #### [facility] [address] [place] [address] Dr. Kirk García HCT 40.7 % Critically low 42.0-54.[address] [facility] Comment on above: Performed By: #### U MICRO, ERUR #### [facility] [address] [place] [address] Dr. Kirk García HGB 13.4 g/dl Critically low 14.0-18.[address] [facility] Comment on above: Performed By: #### U MICRO, ERUR #### [facility] [address] [place] [address] Dr. Kirk García LYMPHM # 0.54 103/ul Critically low 1.20-3.80 [facility] Comment on above: Performed By: #### U MICRO, ERUR #### [facility] [address] [address] [address] Kirk García LYMPHM% 4.0 % Critically low 20.5-60.[address] [facility] Comment on above: Performed By: #### U MICRO, ERUR #### [facility] [address] [address] [address] Kirk García MCH 34.2 pg Critically high 25.9-34.0 [facility] Comment on above: Performed By: #### U MICRO, ERUR #### [facility] [address] [address] [address] Kirk García MCHC 32.9 g/dl Normal 29.9-35.2 [facility] Comment on above: Performed By: #### U MICRO, ERUR #### [facility] [address] [address] [address] Kirk García MCV 103.8 fL Critically high 80.0-94.0 [facility] Comment on above: Performed By: #### U MICRO, ERUR #### [facility] [address] [address] [address] Kirk García METAMYELOCYTE # Normal [facility] Comment on above: Performed By: #### U MICRO, ERUR #### [facility] [address] [address] [address] Kirk García METAMYELOCYTE % Normal [facility] Comment on above: Performed By: #### U MICRO, ERUR #### [facility] [address] [address] [address] Kirk García MONOM# 1.08 103/ul Critically high 0.30-0.80 [facility] Comment on above: Performed By: #### U MICRO, ERUR #### [facility] [address] [address] [address] Kirk García MONOM% 8.0 % Normal 1.7-12.[address] [facility] Comment on above: Performed By: #### U MICRO, ERUR #### [facility] [address] [address] [address] Kirk García MPV 10.7 fL Normal 9.5-13.[address] [facility] Comment on above: Performed By: #### U MICRO, ERUR #### [facility] [address] [place] [address] Dr. Kirk García MYELOCYTE # Normal [facility] Comment on above: Performed By: #### U MICRO, ERUR #### [facility] [address] [address] [address] Kirk García MYELOCYTE % Normal [facility] Comment on above: Performed By: #### U MICRO, ERUR #### [facility] [address] [address] [address] Kirk García NRBC Normal [facility] Comment on above: Performed By: #### U MICRO, ERUR #### [facility] [address] [place] [address] Dr. Kirk García PLT 140 103/ul Critically low 150-450 [facility] Comment on above: Performed By: #### U MICRO, ERUR #### [facility] [address] [place] [address] Dr. Kirk García RBC 3.92 106/ul Critically low 4.70-6.10 [facility] Comment on above: Performed By: #### U MICRO, ERUR #### [facility] [address] [place] [address] Dr. Kirk García RDW 14.0 % Normal 11.0-15.0 [facility] Comment on above: Performed By: #### U MICRO, ERUR #### [facility] [address] [place] [address] Dr. Kirk García SEG # 9.86 103/ul Critically high 1.40-6.50 [facility] Comment on above: Performed By: #### U MICRO, ERUR #### [facility] [address] [address] [address] Kirk García SEG % 73.0 % Normal 43.0-75.[address] [facility] Comment on above: Performed By: #### U MICRO, ERUR #### [facility] [address] [address] [address] Kirk García TOXIC GRANULATION 2+ Normal [facility] Comment on above: Performed By: #### U MICRO, ERUR #### [facility] [address] [place] [address] Dr. Kirk García WBC 13.5 103/ul Critically high 4.0-11.0 [facility] Comment on above: Performed By: #### U MICRO, ERUR #### [facility] [address] [place] [address] Dr. Kirk García PROF 14(COMP METB)on 022 Albumin [Mass/Vol] 3.0 g/dL Critically low 3.4-5.0 [facility] Comment on above: Performed By: #### C MP #### [facility] [address] [place] [address] Dr. Kirk García Albumin/Globulin [Mass ratio] 0.8 {ratio} Normal [facility] Comment on above: Performed By: #### C MP #### [facility] [address] [place] [address] Dr. Kirk García ALP [Catalytic activity/Vol] 81 U/L Normal 46-[address] [facility] Comment on above: Performed By: #### C MP #### [facility] [address] [place] [address] Dr. Kirk García ALT [Catalytic activity/Vol] 50 U/L Normal 16-[address] [facility] Comment on above: Performed By: #### C MP #### [facility] [address] [place] [address] Dr. Kirk García Anion gap [Moles/Vol] 8.2 mmol/L Normal [facility] Comment on above: Performed By: #### C MP #### [facility] [address] [place] [address] Dr. Kirk García AST [Catalytic activity/Vol] 14 U/L Critically low 15-[address] [facility] Comment on above: Performed By: #### C MP #### [facility] [address] [place] [address] Dr. Kirk García Bilirubin [Mass/Vol] 0.9 mg/dL Normal 0.2-1.[address] [facility] Comment on above: Performed By: #### C MP #### [facility] [address] [place] [address] Dr. Kirk García Calcium [Mass/Vol] 9.3 mg/dL Normal 8.5-10.1 [facility] Comment on above: Performed By: #### C MP #### [facility] [address] [place] [address] Dr. Kirk García Chloride [Moles/Vol] 100 mmol/L Normal 98-[address] [facility] Comment on above: Performed By: #### C MP #### [facility] [address] [place] [address] Dr. Kirk García CO2 [Moles/Vol] 33.1 mmol/L Critically high 21.0-32.[address] [facility] Comment on above: Performed By: #### C MP #### [facility] [address] [place] [address] Dr. Kirk García Creatinine [Mass/Vol] 1.56 mg/dL Critically high 0.70-1.[address] [facility] Comment on above: Performed By: #### C MP #### [facility] [address] [place] [address] Dr. Kirk García EGFR-AF TAJIK 51 mL/min/1.73m2 Critically low >=[address] [facility] Comment on above: Performed By: #### C MP #### [facility] [address] [place] [address] Dr. Kirk García EGFR-NON AF TAJIK 42 mL/min/1.73m2 Critically low >=[address] [facility] Comment on above: Performed By: #### C MP #### [facility] [address] [place] [address] Dr. Kirk García Globulin (S) [Mass/Vol] 3.7 g/dL Normal [facility] Comment on above: Performed By: #### C MP #### [facility] [address] [place] [address] Dr. Kirk García Glucose [Mass/Vol] 107 mg/dL Critically high 74-106 [facility] Comment on above: Performed By: #### C MP #### [facility] [address] [address] [address] Kirk García Potassium [Moles/Vol] 5.3 mmol/L Critically high 3.5-5.[address] [facility] Comment on above: Performed By: #### C MP #### [facility] [address] [address] [address] Kirk García Protein [Mass/Vol] 6.7 g/dL Normal 6.4-8.2 [facility] Comment on above: Performed By: #### C MP #### [facility] [address] [address] [address] Kirk García Sodium [Moles/Vol] 136 mmol/L Normal 136-145 [facility] Comment on above: Performed By: #### C MP #### [facility] [address] [address] [address] Kirk García Urea nitrogen [Mass/Vol] 50.0 mg/dL Critically high 7.0-18.[address] [facility] Comment on above: Performed By: #### C MP #### [facility] [address] [address] [address] Kirk García Urea nitrogen/Creatinin e [Mass ratio] 32.1 mg/mg Normal [facility] Comment on above: Performed By: #### C MP #### [facility] [address] [address] [address] Kirk García CULTURE URINEon 08-14-2022 CULTURE URINE Culture Observations : NO GROWTH. Normal [facility] Comment on above: Performed By: #### U MICRO, ERUR #### [facility] [address] [address] [address] Kirk García ER URINE PROFILEon Bilirubin Ql (U) Negative Normal NEGATIVE [facility] Comment on above: Performed By: #### U MICRO, ERUR #### [facility] [address] [address] [address] Kirk García Clarity (U) CLEAR Normal CLEAR [facility] Comment on above: Performed By: #### U MICRO, ERUR #### [facility] [address] [address] [address] Kirk García Color (U) ORANGE Abnormal YELLOW [facility] Comment on above: Performed By: #### U MICRO, ERUR #### [facility] [address] [address] [address] Kirk CYRD A micrscopic examination will be performed if indicated. Normal [facility] Comment on above: Performed By: #### U MICRO, ERUR #### [facility] [address] [address] [address] Kirk García Glucose Ql (U) Negative Normal NEGATIVE [facility] Comment on above: Performed By: #### U MICRO, ERUR #### [facility] [address] [address] [address] Kirk García Hemoglobin Ql (U) LARGE Abnormal NEGATIVE [facility] Comment on above: Performed By: #### U MICRO, ERUR #### [facility] [address] [address] [address] Kirk García Ketones Ql (U) TRACE Abnormal NEGATIVE [facility] Comment on above: Performed By: #### U MICRO, ERUR #### [facility] [address] [address] [address] Kirk García LEUKOCYTES MODERATE Abnormal NEGATIVE [facility] Comment on above: Performed By: #### U MICRO, ERUR #### [facility] [address] [address] [address] Kirk García Nitrite Ql (U) Negative Normal NEGATIVE [facility] Comment on above: Performed By: #### U MICRO, ERUR #### [facility] [address] [address] [address] Kirk García pH (U) 5.5 [pH] Normal 5-9 [facility] Comment on above: Performed By: #### U MICRO, ERUR #### [facility] [address] [address] [address] Kirk García Protein (U) [Mass/Vol] 100 mg/dL Abnormal NEGATIVE/ TRACE [facility] Comment on above: Performed By: #### U MICRO, ERUR #### [facility] [address] [address] [address] Kirk García SPEC GRAVITY 1.025 Normal 1.005-<=1.[address] [facility] Comment on above: Performed By: #### U MICRO, ERUR #### [facility] [address] [address] [address] Kirk García UR MICRO IND INDICATED Normal [facility] Comment on above: Performed By: #### U MICRO, ERUR #### [facility] [address] [address] [address] Kirk García Urobilinogen Qn (U) 1.0 {Ryan'U}/dL Normal 0.2 - 1.[address] [facility] Comment on above: Performed By: #### U MICRO, ERUR #### [facility] [address] [place] [address] Dr. Kirk García URINE MICROSCOPIC ONLYon BACTERIA SMALL Abnormal NONE SEEN [facility] Comment on above: Performed By: #### U MICRO, ERUR #### [facility] [address] [address] [address] Kirk García Bacteria identified Cx Nom (U) INDICATED Normal [facility] Comment on above: Performed By: #### U MICRO, ERUR #### [facility] [address] [address] [address] Kirk García CAST NONE SEEN Normal NONE SEEN [facility] Comment on above: Performed By: #### U MICRO, ERUR #### [facility] [address] [address] [address] Kirk García Crystals LM Nom (Urine sed) NONE SEEN Normal NONE SEEN [facility] Comment on above: Performed By: #### U MICRO, ERUR #### [facility] [address] [address] [address] Kirk García Epithelial cells LM Ql (Urine sed) RARE Normal NONE SEEN /RARE [facility] Comment on above: Performed By: #### U MICRO, ERUR #### [facility] [address] [address] [address] Kirk García MUCOUS NONE SEEN Normal NONE SEEN [facility] Comment on above: Performed By: #### U MICRO, ERUR #### [facility] [address] [address] [address] Kirk García RBC 75-100 Abnormal 0-2 [facility] Comment on above: Performed By: #### U MICRO, ERUR #### [facility] [address] [place] [address] Dr. Kirk García WBC 50-75 Abnormal NONE SEEN [facility] Comment on above: Performed By: #### U MICRO, ERUR #### [facility] [address] [place] [address] Dr. Kirk García XR KNEE WILBER 4V [...] ANA DALAL Date: 2022-08-14 21:09 Normal [facility] CBC W MANUAL DIFFon 08-04-20 22 ATYPICAL LYMPH # Normal [facility] Comment on above: Performed By: #### C CHRISTOPHER #### [facility] [address] [place] [address] Dr. Kirk García ATYPICAL LYMPH % Normal [facility] Comment on above: Performed By: #### C CHRISTOPHER #### [facility] [address] [place] [address] Dr. Kirk García BAND # 0.0 103/ul Normal 0.0-0.3 [facility] Comment on above: Performed By: #### C CHRISTOPHER #### [facility] [address] [place] [address] Dr. Kirk García BAND % 1 % Normal 0-5 [facility] Comment on above: Performed By: #### C CHRISTOPHER #### [facility] [address] [address] [address] Kirk García BASOM # 0.00 103/ul Normal 0.00-0.[address] [facility] Comment on above: Performed By: #### C CHRISTOPHER #### [facility] [address] [address] [address] Kirk García BASOM % 0.0 % Critically low 0.2-2.0 [facility] Comment on above: Performed By: #### C BCLEILA #### [facility] [address] [address] [address] Kirk García BLAST # Normal [facility] Comment on above: Performed By: #### C CHRISTOPHER #### [facility] [address] [place] [address] Dr. Kirk García BLAST % Normal [facility] Comment on above: Performed By: #### C CHRISTOPHER #### [facility] [address] [place] [address] Dr. Kirk García CORRECTED WBC Normal 4.0-11.0 [facility] Comment on above: Performed By: #### C CHRISTOPHER #### [facility] [address] [place] [address] Dr. Kirk García EOS # 0.00 103/ul Normal 0.00-0.[address] [facility] Comment on above: Performed By: #### C CHRISTOPHER #### [facility] [address] [place] [address] Dr. Kirk García EOS% 0.0 % Critically low 0.9-7.0 [facility] Comment on above: Performed By: #### C CHRISTOPHER #### [facility] [address] [place] [address] Dr. Kirk García HCT 31.0 % Critically low 42.0-54.0 [facility] Comment on above: Performed By: #### C CHRISTOPHER #### [facility] [address] [place] [address] Dr. Kirk García HGB 10.5 g/dl Critically low 14.0-18.0 [facility] Comment on above: Performed By: #### C BCLEILA #### [facility] [address] [address] [address] Kirk García LYMPHM # 0.31 103/ul Critically low 1.20-3.[address] [facility] Comment on above: Performed By: #### C BCLEILA #### [facility] [address] [address] [address] Kirk García LYMPHM% 11.0 % Critically low 20.5-60.0 [facility] Comment on above: Performed By: #### C BCLEILA #### [facility] [address] [address] [address] Kirk García MCH 34.2 pg Critically high 25.9-34.[address] [facility] Comment on above: Performed By: #### C BCLEILA #### [facility] [address] [place] [address] Dr. Kirk García MCHC 33.9 g/dl Normal 29.9-35.[address] [facility] Comment on above: Performed By: #### C BCLEILA #### [facility] [address] [address] [address] Kirk García MCV 101.0 fL Critically high 80.0-94.[address] [facility] Comment on above: Performed By: #### C BCLEILA #### [facility] [address] [address] [address] Kirk García METAMYELOCYTE # 0.1 103/ul Normal [facility] Comment on above: Performed By: #### C BCLEILA #### [facility] [address] [address] [address] Kirk García METAMYELOCYTE % 2 % Normal [facility] Comment on above: Performed By: #### C BCLEILA #### [facility] [address] [address] [address] Kirk García MONOM# 0.03 103/ul Critically low 0.30-0.[address] [facility] Comment on above: Performed By: #### C BCLEILA #### [facility] [address] [address] [address] Kirk García MONOM% 1.0 % Critically low 1.7-12.0 [facility] Comment on above: Performed By: #### C CHRISTOPHER #### [facility] [address] [address] [address] Kirk García MPV 10.7 fL Normal 9.5-13.[address] [facility] Comment on above: Performed By: #### C CHRISTOPHER #### [facility] [address] [place] [address] Dr. Kirk García MYELOCYTE # 0.0 103/ul Normal [facility] Comment on above: Performed By: #### Jailene WHITE #### [facility] [address] [place] [address] Dr. Kirk García MYELOCYTE % 1 % Normal [facility] Comment on above: Performed By: #### Jailene WHITE #### [facility] [address] [place] [address] Dr. Kirk García NRBC Normal [facility] Comment on above: Performed By: #### Jailene WHITE #### [facility] [address] [address] [address] Kirk García PLT 84 103/ul Critically low 150-450 [facility] Comment on above: Performed By: #### Jailene WHITE #### [facility] [address] [place] [address] Dr. Kirk García RBC 3.07 106/ul Critically low 4.70-6.10 [facility] Comment on above: Performed By: #### Jailene WHITE #### [facility] [address] [place] [address] Dr. Kirk García RDW 13.3 % Normal 11.0-15.0 [facility] Comment on above: Performed By: #### Jailene WHITE #### [facility] [address] [address] [address] Kirk García SEG # 2.35 103/ul Normal 1.40-6.[address] [facility] Comment on above: Performed By: #### Jailene WHITE #### [facility] [address] [address] [address] Kirk García SEG % 84.0 % Critically high 43.0-75.[address] [facility] Comment on above: Performed By: #### C TRISHMAN #### [facility] [address] [address] [address] Kirk García WBC 2.8 103/ul Critically low 4.0-11.0 [facility] Comment on above: Performed By: #### C CHRISTOPHER #### [facility] [address] [address] [address] Kirk García PROF CHEM 8 (BAS METB)on Anion gap [Moles/Vol] 9.9 mmol/L Normal [facility] Comment on above: Performed By: #### U MICRO, ERUR #### [facility] [address] [address] [address] Kirk García Calcium [Mass/Vol] 7.4 mg/dL Critically low 8.5-10.1 [facility] Comment on above: Performed By: #### U MICRO, ERUR #### [facility] [address] [address] [address] Kirk García Chloride [Moles/Vol] 100 mmol/L Normal 98-[address] [facility] Comment on above: Performed By: #### U MICRO, ERUR #### [facility] [address] [address] [address] Kirk García CO2 [Moles/Vol] 23.8 mmol/L Normal 21.0-32.0 [facility] Comment on above: Performed By: #### U MICRO, ERUR #### [facility] [address] [address] [address] Kirk García Creatinine [Mass/Vol] 1.43 mg/dL Critically high 0.70-1.[address] [facility] Comment on above: Performed By: #### U MICRO, ERUR #### [facility] [address] [address] [address] Kirk García EGFR-AF TAJIK 57 mL/min/1.73m2 Critically low >=[address] [facility] Comment on above: Performed By: #### U MICRO, ERUR #### [facility] [address] [address] [address] Kirk García EGFR-NON AF TAJIK 47 mL/min/1.73m2 Critically low >=[address] [facility] Comment on above: Performed By: #### U MICRO, ERUR #### [facility] [address] [place] [address] Dr. Kirk García Glucose [Mass/Vol] 148 mg/dL Critically high 74-106 T [facility] Comment on above: Performed By: #### U MICRO, ERUR #### [facility] [address] [place] [address] Dr. Kirk García Potassium [Moles/Vol] 4.7 mmol/L Normal 3.5-5.[address] [facility] Comment on above: Performed By: #### U MICRO, ERUR #### [facility] [address] [place] [address] Dr. Kirk García Sodium [Moles/Vol] 129 mmol/L Critically low 136-145 Th [facility] Comment on above: Performed By: #### U MICRO, ERUR #### [facility] [address] [place] [address] Dr. Kirk García Urea nitrogen [Mass/Vol] 42.0 mg/dL Critically high 7.0-18.[address] [facility] Comment on above: Performed By: #### U MICRO, ERUR #### [facility] [address] [place] [address] Dr. Kirk García Urea nitrogen/Creatinin e [Mass ratio] 29.4 mg/mg Normal [facility] Comment on above: Performed By: #### U MICRO, ERUR #### [facility] [address] [place] [address] Dr. Kirk García CBC AUTO DIFFon 08-03-2022 BASO # 0.0 103/ul Normal 0.0-0.[address] [facility] Comment on above: Performed By: #### C BC #### [facility] [address] [place] [address] Dr. Kirk García Basophils/100 WBC (Bld) 0.0 % Critically low 0.2-2.[address] [facility] Comment on above: Performed By: #### C BC #### [facility] [address] [place] [address] Dr. Kirk García EO # 0.0 103/ul Normal 0.0-0.7 [facility] Comment on above: Performed By: #### C BC #### [facility] [address] [place] [address] Dr. Kirk García Eosinophils/100 WBC (Bld) 0.2 % Critically low 0.9-7.[address] [facility] Comment on above: Performed By: #### C BC #### [facility] [address] [place] [address] Dr. Kirk García Erythrocyte distribution width (RBC) [Ratio] 13.7 % Normal 11.0-15.[address] [facility] Comment on above: Performed By: #### C BC #### [facility] [address] [place] [address] Dr. Kirk García Hematocrit (Bld) [Volume fraction] 34.3 % Critically low 42.0-54.[address] [facility] Comment on above: Performed By: #### C BC #### [facility] [address] [place] [address] Dr. Kirk García Hemoglobin (Bld) [Mass/Vol] 11.8 g/dL Critically low 14.0-18.[address] [facility] Comment on above: Performed By: #### C BC #### [facility] [address] [place] [address] Dr. Kirk Gacría IG # 0.02 10e3/ul Normal 0.00-0.03 [facility] Comment on above: Performed By: #### C BC #### [facility] [address] [place] [address] Dr. Kirk García IG % 0.4 % Normal 0.0-0.[address] [facility] Comment on above: Performed By: #### C BC #### [facility] [address] [place] [address] Dr. Kirk García LYMPH # 0.9 103/ul Critically low 1.2-3.[address] [facility] Comment on above: Performed By: #### C BC #### [facility] [address] [address] [address] Kirk García Lymphocytes/100 WBC (Bld) 16.5 % Critically low 20.5-60.[address] [facility] Comment on above: Performed By: #### C BC #### [facility] [address] [address] [address] Kirk García MANUAL DIFF REQ NO Normal [facility] Comment on above: Performed By: #### C BC #### [facility] [address] [address] [address] Kirk García MCH (RBC) [Entitic mass] 34.4 pg Critically high 25.9-34.[address] [facility] Comment on above: Performed By: #### C BC #### [facility] [address] [address] [address] Kikr García MCHC (RBC) [Mass/Vol] 34.4 g/dL Normal 29.9-35.[address] [facility] Comment on above: Performed By: #### C BC #### [facility] [address] [place] [address] Dr. Kirk García MCV (RBC) [Entitic vol] 100.0 fL Critically high 80.0-94.[address] [facility] Comment on above: Performed By: #### C BC #### [facility] [address] [place] [address] Dr. Kirk García MONO # 1.2 103/ul Critically high 0.3-0.8 [facility] Comment on above: Performed By: #### C BC #### [facility] [address] [address] [address] Kirk García Monocytes/100 WBC (Bld) 22.3 % Critically high 1.7-12.[address] [facility] Comment on above: Performed By: #### C BC #### [facility] [address] [place] [address] Dr. Kirk García NEUT # 3.4 103/ul Normal 1.4-6.[address] [facility] Comment on above: Performed By: #### C BC #### [facility] [address] [place] [address] Dr. Kirk García Neutrophils/100 WBC (Bld) 60.6 % Normal 43.0-75.[address] [facility] Comment on above: Performed By: #### C BC #### [facility] [address] [place] [address] Dr. Kirk García Platelet mean volume (Bld) [Entitic vol] 11.6 fL Normal 9.5-13.[address] [facility] Comment on above: Performed By: #### C BC #### [facility] [address] [place] [address] Dr. Kirk García PLT 99 103/ul Critically low 150-[address] [facility] Comment on above: Performed By: #### C BC #### [facility] [address] [place] [address] Dr. Kirk García RBC 3.43 106/ul Critically low 4.70-6.10 [facility] Comment on above: Performed By: #### C BC #### [facility] [address] [place] [address] Dr. Kirk García WBC 5.5 103/ul Normal 4.0-11.[address] [facility] Comment on above: Performed By: #### C BC #### [facility] [address] [place] [address] Dr. Kirk García CULTURE BLOODon 08-03-2022 Microscopic examination of blood, culture Culture Observations: NO GROWTH AT 5 DAYS. Normal [facility] Comment on above: Performed By: #### U MICRO, ERUR #### [facility] [address] [place] [address] Dr. Kirk García Microscopic examination of blood, culture Culture Observations: NO GROWTH AT 5 DAYS. Normal [facility] Comment on above: Performed By: #### U MICRO, ERUR #### [facility] [address] [place] [address] Dr. Kirk García Covid-19 PCR (CVDTB)on SARS-CoV-2 (COVID-19) RNA SANAZ+probe Ql (Unsp spec) Detected Critically abnormal NOT DETECTED [facility] Comment on above: Result Comment: This test is not yet approved or cleared by the [place] FDA. When there are no FDA-approved or cleared tests available, and other criteria are met, FDA can make tests available under an emergency access mechanism called an Emergency Use Authorization (EUA). The EUA for this test is supported by the [place] of Health and Human Service's declaration that [...] used). Performed By: #### C VDTBH #### [facility] [address] [place] [address] Dr. Kirk García GROUP A STREP CULTUREon S. pyogenes Ag Ql (Unsp spec) Culture Observations: NEGATIVE FOR GROUP A STREPTOCOCCUS. Normal [facility] Comment on above: Performed By: #### U MICRO, ERUR #### [facility] [address] [place] [address] Dr. Kirk García PROF 14(COMP METB)on 022 Albumin [Mass/Vol] 3.0 g/dL Critically low 3.4-5.0 Th e [facility] Comment on above: Performed By: #### C MP #### [facility] [address] [place] [address] Dr. Kirk García Albumin/Globulin [Mass ratio] 0.7 {ratio} Normal [facility] Comment on above: Performed By: #### C MP #### [facility] [address] [place] [address] Dr. Kirk García ALP [Catalytic activity/Vol] 76 U/L Normal 46-[address] [facility] Comment on above: Performed By: #### C MP #### [facility] [address] [address] [address] Kirk García ALT [Catalytic activity/Vol] 27 U/L Normal 16-[address] [facility] Comment on above: Performed By: #### C MP #### [facility] [address] [address] [address] Kirk García Anion gap [Moles/Vol] 8.9 mmol/L Normal [facility] Comment on above: Performed By: #### C MP #### [facility] [address] [address] [address] Kirk García AST [Catalytic activity/Vol] 17 U/L Normal 15-[address] [facility] Comment on above: Performed By: #### C MP #### [facility] [address] [address] [address] Kirk García Bilirubin [Mass/Vol] 1.3 mg/dL Critically high 0.2-1.[address] [facility] Comment on above: Performed By: #### C MP #### [facility] [address] [address] [address] Kirk García Calcium [Mass/Vol] 8.1 mg/dL Critically low 8.5-10.1 Th [facility] Comment on above: Performed By: #### C MP #### [facility] [address] [place] [address] Dr. Kirk García Chloride [Moles/Vol] 94 mmol/L Critically low 98-[address] [facility] Comment on above: Performed By: #### C MP #### [facility] [address] [address] [address] Kirk García CO2 [Moles/Vol] 27.5 mmol/L Normal 21.0-32.0 [facility] Comment on above: Performed By: #### C MP #### [facility] [address] [place] [address] Dr. Kirk García Creatinine [Mass/Vol] 1.65 mg/dL Critically high 0.70-1.[address] [facility] Comment on above: Performed By: #### C MP #### [facility] [address] [place] [address] Dr. Kirk García EGFR-AF TAJIK 48 mL/min/1.73m2 Critically low >=[address] [facility] Comment on above: Performed By: #### C MP #### [facility] [address] [address] [address] Kirk García EGFR-NON AF TAJIK 40 mL/min/1.73m2 Critically low >=[address] [facility] Comment on above: Performed By: #### C MP #### [facility] [address] [address] [address] Kirk García Globulin (S) [Mass/Vol] 4.5 g/dL Normal [facility] Comment on above: Performed By: #### C MP #### [facility] [address] [address] [address] Kirk García Glucose [Mass/Vol] 118 mg/dL Critically high 74-106 T [facility] Comment on above: Performed By: #### C MP #### [facility] [address] [address] [address] Kirk García Potassium [Moles/Vol] 4.4 mmol/L Normal 3.5-5.[address] [facility] Comment on above: Performed By: #### C MP #### [facility] [address] [address] [address] Kirk García Protein [Mass/Vol] 7.5 g/dL Normal 6.4-8.2 [facility] Comment on above: Performed By: #### C MP #### [facility] [address] [address] [address] Kirk García Sodium [Moles/Vol] 126 mmol/L Critically low 136-145 Th [facility] Comment on above: Performed By: #### C MP #### [facility] [address] [address] [address] Kirk García Urea nitrogen [Mass/Vol] 36.0 mg/dL Critically high 7.0-18.[address] [facility] Comment on above: Performed By: #### C MP #### [facility] [address] [address] [address] Kirk García Urea nitrogen/Creatinin e [Mass ratio] 21.8 mg/mg Normal [facility] Comment on above: Performed By: #### C MP #### [facility] [address] [address] [address] Kirk García STREPT SCREENon 08-03-2022 STREP SCREEN A Negative Normal NEGATIVE [facility] Comment on above: Performed By: #### U MICRO, ERUR #### [facility] [address] [address] [address] Kirk García XR CHEST 1 Von [...] MILAGROS REEDER Date: 2022-08-03 12:55 Normal [facility] CBC AUTO DIFFon 07-08-2022 BASO # 0.0 103/ul Normal 0.0-0.[address] [facility] Comment on above: Performed By: #### C BC #### [facility] [address] [address] [address] Kirk García Basophils/100 WBC (Bld) 0.5 % Normal 0.2-2.0 [facility] Comment on above: Performed By: #### C BC #### [facility] [id number] Kirk García EO # 0.1 103/ul Normal 0.0-0.[address] [facility] Comment on above: Performed By: #### C BC #### [facility] [id number] Kirk García Eosinophils/100 WBC (Bld) 1.4 % Normal 0.9-7.[address] [facility] Comment on above: Performed By: #### C BC #### [facility] [address] [place] [address] Dr. Kirk García Erythrocyte distribution width (RBC) [Ratio] 13.4 % Normal 11.0-15.[address] [facility] Comment on above: Performed By: #### C BC #### [facility] [address] [place] [address] Dr. Kirk García Hematocrit (Bld) [Volume fraction] 39.6 % Critically low 42.0-54.[address] [facility] Comment on above: Performed By: #### C BC #### [facility] [address] [place] [address] Dr. Kirk García Hemoglobin (Bld) [Mass/Vol] 13.2 g/dL Critically low 14.0-18.[address] [facility] Comment on above: Performed By: #### C BC #### [facility] [address] [place] [address] Dr. Kirk García IG # 0.02 10e3/ul Normal 0.00-0.[address] [facility] Comment on above: Performed By: #### C BC #### [facility] [address] [place] [address] Dr. Kirk García IG % 0.3 % Normal 0.0-0.[address] [facility] Comment on above: Performed By: #### C BC #### [facility] [address] [place] [address] Dr. Kirk García LYMPH # 1.7 103/ul Normal 1.2-3.[address] [facility] Comment on above: Performed By: #### C BC #### [facility] [address] [place] [address] Dr. Kirk García Lymphocytes/100 WBC (Bld) 28.7 % Normal 20.5-60.[address] [facility] Comment on above: Performed By: #### C BC #### [facility] [address] [place] [address] Dr. Kirk García MANUAL DIFF REQ NO Normal [facility] Comment on above: Performed By: #### C BC #### [facility] [address] [address] [address] Kirk García MCH (RBC) [Entitic mass] 34.4 pg Critically high 25.9-34.[address] [facility] Comment on above: Performed By: #### C BC #### [facility] [address] [place] [address] Dr. Kirk García MCHC (RBC) [Mass/Vol] 33.3 g/dL Normal 29.9-35.2 [facility] Comment on above: Performed By: #### C BC #### [facility] [address] [place] [address] Dr. Kirk García MCV (RBC) [Entitic vol] 103.1 fL Critically high 80.0-94.[address] [facility] Comment on above: Performed By: #### C BC #### [facility] [address] [place] [address] Dr. Kirk García MONO # 0.9 103/ul Critically high 0.3-0.[address] [facility] Comment on above: Performed By: #### C BC #### [facility] [address] [place] [address] Dr. Kirk García Monocytes/100 WBC (Bld) 15.8 % Critically high 1.7-12.[address] [facility] Comment on above: Performed By: #### C BC #### [facility] [address] [place] [address] Dr. Kirk García NEUT # 3.1 103/ul Normal 1.4-6.5 [facility] Comment on above: Performed By: #### C BC #### [facility] [address] [place] [address] Dr. Kirk García Neutrophils/100 WBC (Bld) 53.3 % Normal 43.0-75.0 [facility] Comment on above: Performed By: #### C BC #### [facility] [address] [place] [address] Dr. Kirk García Platelet mean volume (Bld) [Entitic vol] 10.6 fL Normal 9.5-13.[address] [facility] Comment on above: Performed By: #### C BC #### [facility] [address] [address] [address] Kirk García PLT 147 103/ul Critically low 150-450 [facility] Comment on above: Performed By: #### C BC #### [facility] [address] [place] [address] Dr. Kirk García RBC 3.84 106/ul Critically low 4.70-6.[address] [facility] Comment on above: Performed By: #### C BC #### [facility] [address] [place] [address] Dr. Kirk García WBC 5.9 103/ul Normal 4.0-11.[address] [facility] Comment on above: Performed By: #### C BC #### [facility] [address] [place] [address] Dr. Kirk García DIGOXINon 07-08-2022 DIG 1.1 ng/mL Normal 0.9-2.[address] [facility] Comment on above: Performed By: #### U MICRO, ERUR #### [facility] [address] [place] [address] Dr. Kirk García PROF CHEM 8 (BAS METB)on Anion gap [Moles/Vol] 13.6 mmol/L Normal [facility] Comment on above: Performed By: #### U MICRO, ERUR #### [facility] [address] [place] [address] Dr. Kirk García Calcium [Mass/Vol] 9.5 mg/dL Normal 8.5-10.1 [facility] Comment on above: Performed By: #### U MICRO, ERUR #### [facility] [address] [place] [address] Dr. Kirk García Chloride [Moles/Vol] 97 mmol/L Critically low 98-[address] [facility] Comment on above: Performed By: #### U MICRO, ERUR #### [facility] [address] [place] [address] Dr. Kirk García CO2 [Moles/Vol] 28.8 mmol/L Normal 21.0-32.0 [facility] Comment on above: Performed By: #### U MICRO, ERUR #### [facility] [address] [place] [address] Dr. Kirk García Creatinine [Mass/Vol] 1.43 mg/dL Critically high 0.70-1.[address] [facility] Comment on above: Performed By: #### U MICRO, ERUR #### [facility] [address] [address] [address] Kirk García EGFR-AF TAJIK 57 mL/min/1.73m2 Critically low >=[address] [facility] Comment on above: Performed By: #### U MICRO, ERUR #### [facility] [address] [place] [address] Dr. Kirk García EGFR-NON AF TAJIK 47 mL/min/1.73m2 Critically low >=[address] [facility] Comment on above: Performed By: #### U MICRO, ERUR #### [facility] [address] [place] [address] Dr. Kirk García Glucose [Mass/Vol] 99 mg/dL Normal 74-106 [facility] Comment on above: Performed By: #### U MICRO, ERUR #### [facility] [address] [place] [address] Dr. Kirk García Potassium [Moles/Vol] 4.4 mmol/L Normal 3.5-5.[address] [facility] Comment on above: Performed By: #### U MICRO, ERUR #### [facility] [address] [place] [address] Dr. Kirk García Sodium [Moles/Vol] 135 mmol/L Critically low 136-145 Th [facility] Comment on above: Performed By: #### U MICRO, ERUR #### [facility] [address] [place] [address] Dr. Kirk García Urea nitrogen [Mass/Vol] 29.0 mg/dL Critically high 7.0-18.[address] [facility] Comment on above: Performed By: #### U MICRO, ERUR #### [facility] [address] [place], [place] [address] Dr. Kirk García Urea nitrogen/Creatinin e [Mass ratio] 20.3 mg/mg Normal [facility] Comment on above: Performed By: #### U MICRO, JIMR #### [facility] [address] [place], [place] [address] Dr. Kirk García Patient Educationon 03-16-20 Patient [...] Are older than age 65. ? Are -Chilean. ? Are obese. ? Have a family [...] Follow these instructions at home: ? Take vwka-mee-hnyoxxn and prescription medicines only as told by [...] cancer specialis (more content not included)... Normal [facility] Urology Office/Clinic Noteon 03-16-2022 Urology [...] E&M of Est. Patient Moderate 30-39 Min 60287 Measure Post Void residual urine and/or bladder capacity by US- non-imaging 05295 Urnls Dip Stick Auto w/o Microscopy POC 75230 2. History of prostate cancer (Z85.46: Personal history of malignant neoplasm of prostate) s/p brachytherapy in 2004. PSA remained very low. pt decided to have PCP do annual monitoring when he saw PRW March 2021. Ordered: E&M of Est. Patient Moderate 30-39 Min 97661 Measure Post Void residual urine and/or bladder capacity by US- non-imaging 60830 Urnls Dip Stick Auto w/o Microscopy POC 99767 Orders: oxybutynin, 5 mg = 1 tab(s), Oral, Daily, # 90 tab(s), Refills(s) 3, Pharmacy: [facility], 183, cm, 03/16/22 9:10:00 EDT, Height/Length Dosing, 99.3, kg, 03/16/22 9:10:00 EDT, Weight Dosing Follow-up With When Contact Information MARYBETH COOPER PA-C, LORNA Within 6 months [address] [place] [address] Business (1) Additional Instructions: Patient Education Prostate Cancer 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 Normal [facility] Comment on above: Result Comment: [...] Are older than age 65. ? Are -Chilean. ? Are obese. ? Have a family [...] Follow these instructions at home: ? Take lryc-vhl-aqpanvi and prescription medicines only as told by [...] cancer specialis (more content not included)... Normal [facility] Urology Office/Clinic Noteon 01-06-2022 Urology [...] worsen Ordered: Office Visit Level 4 Est 93927 2. History of prostate cancer (Z85.46: Personal history of malignant neoplasm of prostate) s/p brachytherapy in 2004. PSA remained very low. pt decided to have PCP do annual monitoring when he saw PRW at last visit March 2021. 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 Normal [facility] Comment on above: Result Comment: Elec tronically Signed By: KENNETH SHEPARD, MARYBETH Trivedi\.lisa\Date and Time Signed: 01/06/22 16:55 NYDIA Corey 07-29-2021 [facility] Telephone ([employer]) HEATHSAMSON ([id number]) 1935 M Date Time Provider Department 07/29/21 DALILA RILEY During your visit today, we recorded the following information about you: Dalila Riley RN 07/29/2021 10:36 AM Signed Spoke with Samson, he is currently still at the hotel and is planning on going to the [facility]. We discussed pain control and did remind patient use of Aleve or Motrin in between narcotics as the narcotics can increase issues with constipation. We did discuss use of Miralax if no Bm by Monday and patients states PA will help him with that. Encouraged to keep up with water intake especially since no appetite today. Allergies As of Date: 07/29/2021 (No Known Allergies) Date Reviewed: 07/28/2021 Reviewed by: Aracelis Ochoa RN - Fully Assessed Reason for Visit: Hot Shot - Other [5900] Cmt: post-op Prescriptions as of 07/29/2021 - [...] EVALon 021 ANES POSTPROC EVAL HNO ID: [id number] Author: Ramiro Esquivel MD Service: Anesthesiology Author [...] July 28, 2021 TIME: 1:35 PM CSN: [id number] [facility] ANES PRE-OPon 07-28-2021 ANES PRE-OP HNO ID: [id number] Author: Ramiro Esquivel MD Service: Anesthesiology Author [...] 100 mL Vial-Bag (UNASYN) 3 g INTRAVENOUS Airline Pilot/First Officer to OR - [COMPLETED] acetaminophen 1,000 [...] July 28, 2021 TIME: 10:17 AM CSN: [id number] [facility] HISTORY PHYSICALon HISTORY PHYSICAL HNO ID: [id number] Author: Jewel Cary III, MD Service: General [...] DATE: July 28, 2021 TIME: 10:16 AM [facility] OPERATIVE NOon 07-28-2021 OPERATIVE NO HNO ID: [id number] Author: Jewel Cary III, MD Service: General Surgery Author Type: Physician Type: Operative Report Filed: 07/28/2021 11:24 AM Note Text: OPERATIVE REPORT LOG ID: [id number] SURGERY/PROCEDURE DATE: 07/28/2021 INCISION/PROCEDURE START TIME: 10:47 AM INCISION CLOSE/PROCEDURE END TIME: 11:24 AM SURGEON: Jewel Cary III, MD ?? SOCIAL SCIENCE RESEARCH ASSISTANT: Monserrat Salazar PA-C? ? OPERATION: Laparoscopic cholecystectomy (69331). ? ANESTHESIA: GETA and 10 mL of [...] July 28, 2021 TIME: 11:22 AM Normal [facility] SURGICAL PATHOLOGYon SURGICAL PATHOLOGY Specimen originated from [facility] Specimen #: [id number] Submitting Physician: JEWEL CARY MD FINAL DIAGNOSIS [...] The mucosa is walker-red, hyperemic, and granular. Scout Leaser sections are submitted as follows: A1 cystic duct margin and wall, A2 fundus. SLE/ch 07/28/2021 Gross examination performed at [facility], [address] [place] [address] Date of Report: 07/29/2021 Date of Procedure: 07/28/2021 Date of Receipt: 07/28/2021 Submitted by: JEWEL CARY MD Location: AV Diagnostic interpretation performed at [facility], [facility] [address], [address] [address]. CLIA Number: [id number] Normal [facility] Comment on above: Performed By: #### S #### See report for performing lab information. HISTORY PHYSICALon HISTORY PHYSICAL HNO ID: [id number] Author: Denita Simmons PA-C Service: ? Author Type: Physician Patent Agent Type: HANDP Filed: 07/19/2021 4:18 PM Note [...] in November 2019. He was admitted to [facility] due to Y[place] cystitis. Providers at [...] 20's - PACEMAKER 2006 - PACEMAKER 01/2021 [employer] placed - PAST SURGICAL HISTORY OF [...] fevers. Neuro: No history of TIA's, stroke, CHILD CARE PROVIDER tumor, impaired sensorium, hemiplegia, paraplegia or quadraplegia. No neurological symptoms or problems. Respiratory: Negative for Asthma, Dyspnea, Tobacco Use, URI < 2 weeks +PND - can rarely trigger cough, but stable, no acute symptoms Cardiovascular: +Pacemaker ([place] scien) - A-fib hx, CHB no symptoms +Heart failure - on digoxin, Lasix. Chronic lower extremity edema. +Valve history - s/p Mitral and tricuspid repair 2017 - Dr. Adrianna Geiger - Ra (more content not included)... Normal [facility] CNCOon 07-13-2021 CNCO Letter Text Normal [facility] CNPNon 07-13-2021 [facility] Telephone (GENSAV) SAMSON JOE ([id number]) 1935 M Date Time Provider Department 07/13/21 [...] by routing message back to Angel [employer], prior to notifying the patient. Marybeth Laureano 07/13/2021 1:53 PM Signed Pt seeing Zach Geiger @ [address] [address] Will send clearance to this provider Cat Gibbs 07/15/2021 11:03 AM Signed Cari from Alondra Geiger's office called and asked to have clearance letter fax to [phone]. Thank you. Marybeth Laureano 07/15/2021 11:21 AM Signed Letter reprinted and faxed to [place] office with confirmation received. Denita Simmons PA-C [...] Encounter Status:Closed by GEORGIEMILMARYBETH on 07/13/21 Normal [facility] Leora 07-12-2021 CNPN Telephone (GENSAV) SAMSON JOE ([id number]) 1935 M Date Time Provider Department 07/12/21 JEWEL CARY III GENSAAristeo During your visit today, we recorded the following information about you: Marybeth Georgi 07/13/2021 2:08 PM Addendum Cur received Pt needs cardiac clearance Dr Kody Lynn Tele enct sent Spoke w pt he now sees Dr Adrianna Geiger at [facility]. Letter electronically sent. Marybeth Georgi 07/13/2021 3:25 PM Signed electronic faxed failed printed and sent to verified fax number of [phone]. Confirmed received. Marybeth Georgi 07/19/2021 3:02 PM [...] Encounter Status:Closed by MARYBETH LAUREANO on 07/19/21 [facility] HISTORY PHYSICALon HISTORY PHYSICAL HNO ID: [id number] Author: Jewel Cary III, MD Service: ? [...] for internal providers or letter via the [employer] Postal Service for external providers. HISTORY: He [...] REPORTon OPERATIVE REPORT NAME: SAMSON JOE MR#: [id number] SURGEON: Adrianna Geiger MD DATE OF SURGERY: 02/01/2021 OPERATIVE REPORT PREOPERATIVE DIAGNOSIS: End of life pacemaker pulse generator. POSTOPERATIVE DIAGNOSIS: End of life pacemaker pulse generator. PROCEDURE: Change out of end of life pacemaker pulse generator. 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 The new pulse generator is a zLense Accolade MRI safe pacemaker, model #L311 serial #[id number]. The pulse generator was attached to the [...] of the day today. ADRIANNA GEIGER MD RJS/RAINAL/[id number] E/S: Adrianna Geiger MD 02/08/21 0856 Electronically Signed [facility] PT NAME: SAMSON JOE MR#: [id number] [address] [place] [address] ACCT: [id number] : [birth year] OPERATIVE REPORT Normal [facility] SURGon 02-01-2021 SURG Normal [facility] Comment on above: Result Comment: RUN DATE: 02/02/21 [facility] LAB *LIVE* PAGE 1RUN TIME: 1351 Specimen InquiryRUN USER: [employer] Name: SAMSON JOE : [birth year] Sex:M Attend Dr: Adrianna Geiger [facility]#: [id number] Unit#: [id number] Status: [facility] Location: ANA MARIA [id number] Received: 02/01/21 Status: PRIYANKA Patterson#: [id number]#: [id number] Collected: 02/01/21-123 [facility] Dr: Adrianna Geiger MDTISSUES: A. EXPLANTED HARDWARE MICROSCOPIC EXAM: N/A DIAGNOSIS: EXPLANTED HARDWARE, REMOVAL: - PULSE GENERATOR (GROSS DIAGNOSIS ONLY) Signed Signature on File KT SCHAFER 02/02/21 1351 [facility] Name: SAMSON JOE [facility] Hosp Num: [id number] A [facility] of Age / Sex: 85/M [facility] Physician: Adrianna Geiger MD [facility] [place] [address] Location: SAME DAY SURGERY END OF REPORT Performed By: #### P SURG ####Test performed at: [place] [address] Vital Signs Date Time Vital Sign Value Performing Clinician Facility 11-22-2023 10:00-0500 Body height 182.88 cm Timo Bar Other [facility] Other 11-22-2023 10:00-0500 Body mass index (BMI) [Ratio] 28.67 kg/m2 Timo Bar Other [facility] Other 11-22-2023 10:00-0500 Body weight 95.89 kg Timo Ball Other [facility] Other 11-22-2023 10:00-0500 Diastolic blood pressure 64 mm[Hg] Timo Ball Other [facility] Other 11-22-2023 10:00-0500 Respiratory rate 16 /min Timo Ball Other [facility] Other 11-22-2023 10:00-0500 SaO2% (BldA) [Mass fraction] 95 % Timo Ball Other [facility] Other 11-22-2023 10:00-0500 Systolic blood pressure 102 mm[Hg] Timo Ball Other [facility] Other 10-03-2023 13:45-0500 Body height 182.88 cm Timo Ball Other [facility] Other 10-03-2023 13:45-0500 Body mass index (BMI) [Ratio] 29.02 kg/m2 Timo Ball Other [facility] Other 10-03-2023 13:45-0500 Body weight 97.07 kg Timo Ball Other [facility] Other 10-03-2023 13:45-0500 Diastolic blood pressure 67 mm[Hg] Timo Ball Other [facility] Other 10-03-2023 13:45-0500 Respiratory rate 16 /min Timo Ball Other [facility] Other 10-03-2023 13:45-0500 Systolic blood pressure 106 mm[Hg] Timo Ball Other [facility] Other 09-29-2023 13:45-0400 Body height 182.88 cm Timo Ball Other [facility] Other 08-31-2023 11:00-0400 Body height 182.88 cm Timo Ball Other [facility] Other 08-31-2023 11:00-0400 Body mass index (BMI) [Ratio] 28.23 kg/m2 Timo Ball Other [facility] Other 08-31-2023 11:00-0400 Body weight 94.44 kg Timo Ball Other [facility] Other 08-31-2023 11:00-0400 Diastolic blood pressure 61 mm[Hg] Timo Ball Other [facility] Other 08-31-2023 11:00-0400 Respiratory rate 12 /min Timo Ball Other [facility] Other 08-31-2023 11:00-0400 Systolic blood pressure 105 mm[Hg] Timo Ball Other [facility] Other 05-26-2023 11:00-0400 Body height 182.88 cm Timo Ball Other [facility] Other 05-26-2023 11:00-0400 Body mass index (BMI) [Ratio] 28.69 kg/m2 Timo Ball Other [facility] Other 05-26-2023 11:00-0400 Body weight 95.98 kg Timo Ball Other [facility] Other 05-26-2023 11:00-0400 Diastolic blood pressure 66 mm[Hg] Timo Ball Other [facility] Other 05-26-2023 11:00-0400 Respiratory rate 16 /min Timo Ball Other [employer] Other 05-26-2023 11:00-0400 Systolic blood pressure 116 mm[Hg] Timo Ball Other [facility] Other 01-20-2023 11:00-0500 Body height 182.88 cm Timo Ball Other [facility] Other 01-20-2023 11:00-0500 Body mass index (BMI) [Ratio] 28.53 kg/m2 Timo Ball Other [facility] Other 01-20-2023 11:00-0500 Body weight 95.44 kg Timo Ball Other [facility] Other 01-20-2023 11:00-0500 Diastolic blood pressure 64 mm[Hg] Timo Ball Other [facility] Other 01-20-2023 11:00-0500 Respiratory rate 16 /min Timo Ball Other [facility] Other 01-20-2023 11:00-0500 Systolic blood pressure 102 mm[Hg] Timo Ball Other [facility] Other 09-21-2022 12:18-0400 Blood Pressure Location MARYBETH KENNETH [facility] 09-21-2022 12:18-0400 Diastolic blood pressure 58 mm[Hg] MARYBETH KENNETH [facility] 09-21-2022 12:18-0400 Heart rate 80 /min MARYBETH KENNEHT [facility] 09-21-2022 12:18-0400 Respiratory rate 16 /min MARYBETHKOURTNEY COOPER [facility] 09-21-2022 12:18-0400 Systolic blood pressure 111 mm[Hg] MARYBETH KENNETH [facility] 03-16-2022 08:49-0400 Blood Pressure Location MARYBETHKOURTNEY MOTARY [facility] [employer] 03-16-2022 08:49-0400 Diastolic blood pressure 65 mm[Hg] MARYBETH KENNETH [facility] [employer] 03-16-2022 08:49-0400 Heart rate 75 /min MARYBETH COOPER [facility] [employer] 03-16-2022 08:49-0400 Systolic blood pressure 93 mm[Hg] MARYBETH KENNETH [facility] [employer] Encounters Encounter Date Encounter Type Care Provider Facility Start: 01-01-2024 End: 01-01-2024 ambulatory [facility] Start: 12-29-2023 End: 12-29-2023 ambulatory Timo Bar Other [facility] Other Start: 12-29-2023 Telephone encounter [facility] Start: 12-26-2023 End: 12-26-2023 ambulatory EDDIE WEISS Not Available Start: 12-20-2023 End: 12-20-2023 ambulatory Timo Bar Other [facility] Other Start: 12-20-2023 Telephone encounter Timo Ball [facility] Start: 12-15-2023 End: 12-15-2023 ambulatory Timo Penny Other [facility] Other Start: 12-15-2023 Telephone encounter Timo Ball [facility] Start: 12-11-2023 End: 12-11-2023 ambulatory Timo Ball Other [facility] Other Start: 12-11-2023 Telephone encounter Timo Ball [facility] Start: 12-05-2023 End: 12-05-2023 ambulatory Timo Ball Other [facility] Other Start: 12-05-2023 Telephone encounter Timo Ball [facility] Start: 11-22-2023 End: 11-22-2023 ambulatory Timo Ball Other [facility] Other Start: 11-22-2023 Telephone encounter Timo Ball [facility] Start: 11-22-2023 Transitional care carlie villasenor srvc 14 day discharge Timo Ball [facility] Start: 11-17-2023 End: 11-17-2023 ambulatory Timo Ball Other [facility] Other Start: 11-17-2023 Telephone encounter Timo Ball [facility] Start: 10-04-2023 End: 10-04-2023 ambulatory Timo Ball Other [facility] Other Start: 10-04-2023 Telephone encounter Timo Ball [facility] Start: 10-03-2023 End: 10-03-2023 ambulatory Timo Ball Other [facility] Other Start: 10-03-2023 Office outpatient vi sit 15 minutes Timo Ball [facility] Start: 09-29-2023 End: 09-29-2023 ambulatory Timo Ball Other [facility] Other Start: 09-29-2023 Nursing evaluation o f patient and report Timo Penny [facility] Start: 09-06-2023 End: 09-06-2023 ambulatory Timo Bar Other [facility] Other Start: 09-06-2023 Telephone encounter Timo Bar [facility] Start: 08-31-2023 End: 08-31-2023 ambulatory Timo Bar Other [facility] Other Start: 08-31-2023 Patient encounter procedure Timo Penny [facility] Start: 05-26-2023 End: 05-26-2023 ambulatory Timo Bar Other [facility] Other Start: 05-26-2023 Office outpatient vi sit 25 minutes Timo Penny [facility] Start: 05-02-2023 End: 05-02-2023 ambulatory [facility] Start: 04-17-2023 End: 04-17-2023 ambulatory [facility] Start: 01-20-2023 End: 01-20-2023 ambulatory Timo Penny Other [facility] Other Start: 01-20-2023 Office outpatient vi sit 25 minutes Timo Bar [facility] Start: 09-21-2022 End: 09-22-2022 ambulatory MARYBETH COOPER Facility: [facility] Start: 09-21-2022 End: 09-21-2022 Patient encounter procedure MARYBETH COOPER [facility] Start: 09-06-2022 End: 09-07-[address] TIMO BAR Facility:[facility] Start: 08-14-2022 End: 08-15-[address] TIMO BAR Facility:[facility] Start: 08-03-2022 End: 08-04-[address] TIMO BAR Facility:[facility] Start: 07-08-2022 End: 07-09-[address] TIMO BAR Facility:[facility] Start: 03-16-2022 End: 03-17-2022 ambulatory MARYBETHKOURTNEY COOPER Facility:[facility] [place] Start: 03-16-2022 End: 03-16-2022 Patient encounter procedure MARYBETH COOPER [facility] Start: 01-06-2022 End: 01-07-2022 ambulatory MARYBETHVANI COOPER Facility:[facility] Start: 01-05-2022 ambulatory MARYBETHVANI COOPER Facility :[facility] Start: 12-07-2018 Patient encounter procedure Facility:[id number] Start: 12-06-2018 Patient encounter procedure Facility:[id number] Procedures Date Procedure Procedure Detail Performing Clinician Start: 07-08-[address] KUSH BAR Comment on above: Performed By: #### U MICRO, ERUR #### [facility] [address] [place] [address] Dr. Kirk García Start: 07-28-2021 Cholecystectomy SHADIA COOPER Start: 11-27-2006 Colonoscopy MARYBETH Angel GRAVES Start: 11-27-2004 Implantation of radi oactive seed into prostate MARYBETH COOPER Repair of right ingu inal hernia MARYBETH COOPER Transrectal biopsy o f prostate using ultrasound guidance MARYBETH COOPER Immunizations Immunization Date Immunization Notes Care Provider Dari pérez 09-29-2023 influenza, high dose seasonal, preservative-free Timo Bar Other [facility] Other 09-07-2022 influenza virus vaccine, split virus (incl. purified surface antigen) Timo Bar Other [facility] Other 04-26-2022 SARS-CoV-2 mRNA (zbfpcybaumx-ccuw-dxyfo se) vaccine MARYBETH KENNETH [facility] 09-02-2021 SARS-CoV-2 (COVID-19 ) mRNA BNT-162b2 vax MARYBETH KENNETH [facility] 08-18-2021 influenza virus vaccine, unspecified formulation MARYBETH KENNETH [facility] 08-13-2021 influenza virus vaccine, split virus (incl. purified surface antigen) Timo Bar Other [facility] Other 02-23-2021 SARS-CoV-2 (COVID-19 ) mRNA BNT-162b2 vax MARYBETH COOPER [facility] 02-03-2021 SARS-CoV-2 (COVID-19 ) mRNA BNT-162b2 vax MARYBETH COOPER [facility] Comment on above: Result Comment: 2021: [id number] 01-25-2021 SARS-CoV-2 (COVID-19 ) mRNA BNT-162b2 vax MARYBETHVANI COOPER [facility] 08-31-2020 influenza virus vaccine, split virus (incl. purified surface antigen) Timo Bar Other [facility] Other 08-30-2019 influenza virus vaccine, split virus (incl. purified surface antigen) Timo Bar Other [facility] Other 08-30-2019 influenza virus vaccine, unspecified formulation MARYBETHKOURTNEY COOPER [facility] 08-29-2018 influenza virus vaccine, split virus (incl. purified surface antigen) Timo Bar Other [facility] Other 08-29-2018 influenza virus vaccine, unspecified formulation MARYBETH COOPER [facility] 08-03-2017 influenza virus vaccine, split virus (incl. purified surface antigen) Timo Penny Other [place] [employer] Other 08-03-2017 influenza virus vaccine, unspecified formulation MARYBETH COOPER [facility] 09-05-2016 influenza virus vaccine, split virus (incl. purified surface antigen) Timo Penny Other [facility] Other 09-05-2016 influenza virus vaccine, unspecified formulation MARYBETH COOPER [employer] [facility] 10-16-2015 pneumococcal conjuga te vaccine, 13 valent Timo Bar Other [facility] Other 09-01-2015 influenza virus vaccine, split virus (incl. purified surface antigen) Timo Bar Other [facility] Other 09-15-2014 tetanus and diphther ia toxoids, adsorbed, preservative free, for adult use (5 Lf of tetanus toxoid and 2 Lf of diphtheria toxoid) Timo Bar Other [facility] Other 08-27-2013 tetanus and diphther ia toxoids, adsorbed, preservative free, for adult use (5 Lf of tetanus toxoid and 2 Lf of diphtheria toxoid) Timo Bar Other [facility] Other 01-10-2007 pneumococcal polysaccharide vaccine, 23 valent Timo Bar Other [facility] Other 1999 pneumococcal polysaccharide vaccine, 23 valent MARYBETH COOPER [facility] Payers Date Payer Category Payer Unknown [id number] 1959 Medicare [id number] 1960 Unknown [id number] 1935 Unknown [id number] 2.16. [id number] 1934 Unknown [id number] 2.16. [id number] 1934 Unknown [id number] 2.16.8 [id number] 1934 Unknown [id number] 2.16.8 [id number] 1934 Unknown [id number] 2.16.8 [id number] 1934 Unknown [id number] 2.16.8 [id number] 1934 Unknown [id number] 2.16.8 [id number] 1934 Unknown [id number] 2.16.84 [id number] 1934 Unknown [id number] 2.16.84 [id number] 1934 Unknown [id number] 2.16.84 [id number] 1934 Unknown [id number] 2.16.84 [id number] 1934 Unknown [id number] 2.16.84 [id number] Medicare [id number] Unknown [id number] 2.16.8 [id number] Social History Date Type Detail Facility Start: 03-16-2022 End: 09-21-2022 Tobacco smoking status Never smoked tobacco (finding) [facility] Tobacco smoking status Never [facility] Sex Assigned At Male [facility] Functional Status Date Assessment Result Facility 09-21-2022 Functional Status N/A [facility] Clinical Notes 07-28-2021 to 01-01-2024 Note Date & Type Note Facility 01-01-2024 Note Patient here for 6 m o follow up and device check. He was admitted to [facility] in Oct 2023 and was seen [...] All other systems reviewed and are negative. [facility] 12-29-2023 Evaluation note Encounter Date Diagnosis Assessment Notes Dec, Anemia (ICD-10 - D64.9) [facility] Other 01-03-2024 NoteThis report has been cancelled. [facility]01-03-2024 NoteThis report has been cancelled.[facility]01-03-2024 NoteThis report has been cancelled.[facility]01-03-2024 NoteThis report has been cancelled.[facility]01-03-2024 NoteThis report has been cancelled.[facility]01-03-2024 NoteThis report has been cancelled.[facility]01-03-2024 NoteThis report has been cancelled.[facility]12-27-2023 Evaluation note* Encounter Date Diagnosis Assessment [...] are maintaining regular scheduled appts with their dog walker. s/p LAAO procedure, off anticoagulation Oct, Pulmonary [...] I44.1) PM inserted PM checkups every 6months. [facility] Other 11-07-2023 Evaluation note* Encounter Date Diagnosis [...] continue exercise to achieve/maintain a normal BMI. [facility] Other 10-05-2023 Evaluation note* Encounter Date Diagnosis [...] are maintaining regular scheduled appts with their dog walker. No bleeding complications Aug, Chronic venous insufficiency [...] (ICD-10 - Z79.899) Check labs: CBC, Dig [facility] Other 06-30-2023 Evaluation note* Encounter Date Diagnosis [...] are maintaining regular scheduled appts with their dog walker. No bleeding complications Apr, Chronic venous insufficiency (ICD-10 - I87.2) Avoid salt and elevate lower extremities, support stockings, inspect legs and feet daily for blisters and ulcerations. Apr, Second degree heart block (ICD-10 - I44.1) PM inserted, routine PM checks w/ [facility] Apr, History of prostate cancer (ICD-10 - Z85.46) No s/s recurrence. No active treatment at this time. [facility] Other 05-22-2023 NotePatient is here today to establish care Review of Systems HENT: Positive for ear discharge. Eyes: Positive for vision loss in left eye and vision loss in right eye. Respiratory: Positive for cough. All other systems reviewed and are negative.[facility] 04-17-2023 NoteCardiovascular Medicine [facility] SUBJECTIVE Chief Complaint Patient presents with [...] (more content not included)...[facility] 01-20-2023 Evaluation note* Encounter Date Diagnosis [...] are maintaining regular scheduled appts with their dog walker. 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 Needs new Payroll Specialist, suggest [facility] here in [place] Dec, History of prostate cancer (ICD-10 - Z85.46) No s/s recurrence [facility] Other 10-26-2022 Hospital Discharge instructions Patient Education [...] who: Are older than age 65. Are -Ch[place]an. Are obese. Have a family history of [...] cells. Follow these instructions at home: Take qbig-fcm-pkrpngf and prescription medicines only as told by [...] 11/13/2006 Document Revised: 10/26/2018 Document Reviewed: 07/24/2017 [employer] Patient Education 2020 [employer]. Follow Up Care 03/16/2022 09:37:24 With:KENNETH SHEPARD, MARYBETH Trivedi, URL Address: [address] [place] [address] [phone] When: only if needed [facility] 04-20-2022 Hospital Discharge instructions Patient Education [...] who: Are older than age 65. Are -Ch[place]an. Are obese. Have a family history of [...] cells. Follow these instructions at home: Take uuec-ffd-ivatasf and prescription medicines only as told by [...] 11/13/2006 Document Revised: 10/26/2018 Document Reviewed: 07/24/2017 [employer] Patient Education 2020 [employer]. Follow Up Care 01/28/2022 16:02:47 With:KENNETH SHEPARD, MARYBETH Trivedi, URL Address: [address] [place], [place] [address] [place] [address] Business (1) When:6 months [facility] 09-21-2021 NoteHNO ID: [id number] Author: Jewel Cary III, MD Service: ? Author Type: Physician Type: Progress Notes Filed: 08/17/2021 9:33 AM Note Text: This patient is post op from laparoscopic cholecystectomy. He has had no symptoms. P.E. The wounds are healing well without evidence of infection. I reviewed the pathology report with Samson. Assessment Satisfactory course Plan: Return to office PRN. Jewel Cary III, [facility]09-01-2021 NoteHNO ID: [id number] Author: Jaspal Phipps APRN.STRUCTURAL TEST ENGINEER Service: Anesthesiology Author Type: Nurse Wildlife Veterinarian Type: Anesthesia Procedure Notes Filed: 07/28/2021 10:50 AM Note Text: ANESTHESIOLOGY PROCEDURE NOTE Airway General Information Procedure Start Time/Medication Administration: 07/28/2021 10:40 AM Patient location during procedure: OR Patient identity confirmed: arm band and patient Staffing Anesthesiologist: Ramiro Esquivel MD STRUCTURAL TEST ENGINEER: Jaspal Phipps APRN.STRUCTURAL TEST ENGINEER Performed by: JASON Indications and Patient Condition [...] to 7.0 ETT-no difficulty. SIGNATURE: Jaspal Phipps APRN.STRUCTURAL TEST ENGINEER PATIENT NAME: Samson Joe DATE: July 28, 2021 TIME: 10:48 AM CSN: [id number] [facility] + Plan note Future Appointments Appointment Date:09/21/2022 10:00:00 AM Scheduled Provider:MARYBETH COOPER PA-C Location:[facility] Appointment Type:URO Office Visit [facility] evaluation noteNo InformationNort [employer] Other History general Narrative - Reported* Type [...] GALL[employer]DER 11/2029 Hospitalization History see surgical history [facility] Other History general Narrative - Reported* Type [...] 20 16 Hospitalization History see surgical history [facility] Other Hospital course Narrative No data available for this section [facility] [employer] progress note No data available for this section [facility] [employer] Summary Purpose Family History No Family History [...] section and content) DATE CREATED AUTHOR 12/17/2018 [facility] DATE CREATED AUTHOR AUTHOR'S ORGANIZ ATION 07/31/2021 [facility] DATE CREATED AUTHOR AUTHOR'S ORGANIZ ATION 07/31/2021 [facility] DATE CREATED AUTHOR AUTHOR'S ORGANIZ ATION 12/24/2021 [facility] DATE CREATED AUTHOR AUTHOR'S ORGANIZ ATION 12/26/2021 [facility] DATE CREATED AUTHOR AUTHOR'S ORGANIZ ATION 09/22/2022 [facility] DATE CREATED AUTHOR AUTHOR'S ORGANIZ ATION 10/05/2022 [facility] DATE CREATED AUTHOR AUTHOR'S ORGANIZ ATION 12/27/2023 [facility] EPIC DATE CREATED AUTHOR AUTHOR'S ORGANIZ ATION 01/01/2024 [facility] Patient Care team informatio n (unrecognized section and content) Personnel Name: TIMO BAR DO Address: Address: [address] [facility] [place] [address]- REASON FOR VISIT (unrecogniz ed section and content) 6 MONTH FOLLOW UP4 MONTH FOL LOW UPWellnessLab resultsflu shotankle/foot swellingRefillTCMERCY MEMORIAL HOSPITAL HHTBHMedication PriceTCMBlood PressuresBP readingsweight concernRepeat Labs [...] BE BASED ON THE PRIMARY CLINICAL RECORDS. [employer] provides no warranty or guarantee of the accuracy or completeness of information in this document.
[2024-01-09] VITALS (23 sets, daily range): BP systolic 86–113; BP diastolic 48–66; PULSE 69–98; RESP 14–20; TEMP 36.2–36.4; O2SAT 90–98
--- NOTE | 2024-01-09 04:00 | ECG_ITS ---
[facility] Test Date: 2024-01-09 Pat Name: REINA JOE Department: Room: [facility] Gender: Male Screen Tacker: : 1935 Requested By: Timo Francis Order Number: [id number] Reading MD: TIMO FRANCIS Measurements Intervals [place] Rate: 71 P: -[phone] WI: -69441 QRS: -73 QRSD: 222 T: 112 QT: 468 QTc: 491 Interpretive Statements [id number] Electronic ventricular pacemaker 9120 atypical ECG Compared to ECG 01/08/2024 17:15:25 No significant changes Electronically Signed On 01-09-2024 6:45:35 EST by TIMO FRANCIS
[2024-01-09 05:20] LABS: Basophils Percent Auto 0.3 % (0.2-2.0); Eosinophils Absolute Auto 0.1 10^3/uL (0.0-0.7); Eosinophils Percent Auto 1.5 % (0.9-7.0); Hematocrit 28.9 % (42.0-54.0); Immature Granulocytes Abs Auto 0.01 10^3/uL (0.00-0.03); Immature Granulocytes Pct Auto 0.3 % (0.0-0.5); Lymphocytes Absolute Auto 0.7 10^3/uL (1.2-3.8); Lymphocytes Percent Auto 21.6 % (20.5-60.0); Mean Corpuscular HGB Conc 31.1 g/dL (29.9-35.2); Mean Corpuscular Hemoglobin 34.1 pg (25.9-34.0); Mean Corpuscular Volume 109.5 fL (80.0-94.0); Monocytes Absolute Auto 0.6 10^3/uL (0.3-0.8); Monocytes Percent Auto 18.3 % (1.7-12.0); Neutrophils Absolute Auto 1.9 10^3/uL (1.4-6.5); Platelet Count 76 10^3/uL (150-450); Red Blood Count 2.64 10^6/uL (4.70-6.10); Red Cell Distribution Width 16.1 % (11.0-15.0); White Blood Count 3.3 10^3/uL (4.0-11.0)
[2024-01-09 05:53] LABS: Alanine Aminotransferase 20 U/L (16-63); Albumin Globulin Ratio 0.7; Albumin Level 2.8 g/dL (3.4-5.0); Alkaline Phosphatase 82 U/L (46-116); Anion Gap 11.6; Aspartate Amino Transferase 12 U/L (15-37); BUN Creatinine Ratio 41.6; Bilirubin Total 1.3 mg/dL (0.2-1.0); Calcium 8.7 mg/dL (8.5-10.1); Carbon Dioxide 28.1 mmol/L (21.0-32.0); Chloride 104 mmol/L (98-107); Estimated GFR (African America 48 (>=60); Estimated GFR (Non-African Ame 39 (>=60); Globulin 3.9 g/dL; Glucose 76 mg/dL (74-106); Potassium 4.7 mmol/L (3.5-5.1); Sodium 139 mmol/L (136-145); Total Protein 6.7 g/dL (6.4-8.2)
[2024-01-09] MEDS: DIGOXIN 500 MCG/2 ML AMPUL 250 MCG IV (06:37)
--- NOTE | 2024-01-09 08:32 | CM.NOTE ---
Rounds made with Dr. Fiore, no discharge today. Cardiology to see pt for further recommendations and will start diuretics.
--- NOTE | 2024-01-09 08:44 | US_ITS ---
[address] [address] Patient Name: REINA JOE MRN: [id number] date: 1935 Sex: M Assigned Patient Location: ICU Current Patient Location: ICU Accession/Order Number: [id number] Exam Date: 01/09/2024 08:45 Report Date: 01/09/2024 11:26 At the request of: HUNG VIDAL Procedure: US renal bladder EXAMINATION: US renal bladder HISTORY: arf COMPARISON: No relevant comparison available. TECHNIQUE: Ultrasound examination was performed of the bladder. FINDINGS: Right Kidney: Normal in size and contour. The cortex measures 0.6 cm. Area of anechoic echogenicity measuring 1 cm, a simple cyst is favored. No solid cortical mass, hydronephrosis or obstructing nephrolithiasis Height: 3.9 cm Length: 10.3 cm Width: 3.9 cm Left Kidney: Normal in size and contour. The cortex measures 0.6 cm. No solid cortical mass, hydronephrosis or obstructing nephrolithiasis Height: 4.3 cm Length: 11.8 cm Width: 4.4 cm Prevoid urinary bladder: 365 mL, post void bladder 145 mL. Bladder: Contour abnormality of the bladder right posterior margin likely represents a diverticulum measuring up to 0.7 cm Ureteral jets: Visualized bilaterally US/US renal bladder IMPRESSION: Bilateral renal cortical atrophy Post void urinary bladder residual volume 145 mL Electronically authenticated by: MARS MATA Date: 01/09/2024 11:26
--- NOTE | 2024-01-09 08:45 | P.PN_ITS ---
Exam Constitutional Vital Signs, click to edit/add: Last Vital Signs Temp 97.1 F L 01/09/24 04:38 Pulse 77 01/09/24 08:00 Resp 20 01/09/24 06:37 BP 93/59 01/09/24 04:38 Pulse Ox 93 L 01/09/24 06:37 O2 Del Method Nasal Cannula 01/09/24 05:20 O2 Flow Rate 2 01/09/24 05:20 Progress Note: Objective Labs Labs: Short CBC 01/08/24 01/09/24 Range/Units 17:28 04:18 WBC 4.0 3.3 L (4.0-11.0) 10^3/uL Hgb 10.7 L 9.0 L (14.0-18.0) g/dL Hct 33.0 L 28.9 L (42.0-54.0) % Plt Count 85 L 76 L (150-450) 10^3/uL BMP 01/08/24 01/09/24 17:28 04:18 Sodium 138 139 Potassium 4.9 4.7 Chloride 103 104 Carbon Dioxide 24.3 28.1 BUN 71.0 H 69.0 H Creatinine 1.66 H 1.66 H Glucose 93 76 Calcium 9.4 8.7 Liver Function 01/08/24 01/09/24 Range/Units 17:28 04:18 Total Bilirubin 1.5 H 1.3 H (0.2-1.0) mg/dL Direct Bilirubin 0.5 H (0.0-0.2) mg/dL AST 14 L 12 L (15-37) U/L ALT 22 20 (16-63) U/L Alkaline Phosphatase 111 82 (46-116) U/L Albumin 3.4 2.8 L (3.4-5.0) g/dL Urine 01/08/24 Range/Units 17:28 Urine Color Yellow (YELLOW) Urine Clarity Clear (CLEAR) Urine pH 5.5 (5.0-9.0) Ur Specific [place] 1.020 (1.005-1.025) Urine Protein Negative (NEG/TRACE) mg/dL Urine Glucose (UA) Negative (NEGATIVE) mg/dL
[2024-01-09] MEDS: OXYBUTYNIN CHLORIDE 5 MG TAB XL PO (10:05)
--- NOTE | 2024-01-09 10:43 | P.CACN_ITS ---
<Statement entered by Samson Palmer MD - 02/06/24 12:51> This documentation has been reviewed and approved. Agree with note above History of Present Illness History of Present Illness Chief complaint: Shortness of Breath CHF HYPOTHERMIA Narrative: This is an 88-year-old patient with a past medical history as outlined below including history of mitral valve and tricuspid valve repair, permanent pacemaker placement, paroxysmal A-fib, HFrEF (LVEF 35 to 40% 05/02/2023) [s/p MAZE procedure and CAMERON clip in 2017], and hypertension who presented to the ED complaining of 2-3-day course of worsening Shortness of breath. He denies any chest pain, nausea, vomiting, or diarrhea. i saw him last week and he was instructed to double up on lasix for a couple days which he did. he had BMP/BNP done at that time and BMP showed cr 1.8 and pro BNP >3000, today his BNP is 2300 and Cr 1.66. his LE edema is improved compared to last week. his weight is unchanged. [facility] Medical History (Updated 01/09/24 @ 12:53 by MARGARITA HERNANDEZ) Hypoxemia ?R09.02 - Hypoxemia (ICD-10) Acute exacerbation of CHF (congestive heart failure) ?I50.9 - Heart failure, unspecified (ICD-10) Thrombocytopenia ?D69.6 - Thrombocytopenia, unspecified (ICD-10) OAB (overactive bladder) ?N32.81 - Overactive bladder (ICD-10) Anemia ?D64.9 - Anemia, unspecified (ICD-10) HFrEF (heart failure with reduced ejection fraction) ?I50.20 - Unspecified systolic (congestive) heart failure (ICD-10) Atherosclerotic heart disease of [place] coronary artery without angina pectoris ?I25.10 - Atherosclerotic heart disease of [place] coronary artery without angina pectoris (ICD-10) CKD (chronic kidney disease) stage 3, GFR 30-59 ml/min ?N18.30 - Chronic kidney disease, stage 3 unspecified (ICD-10) Paroxysmal A-fib ?I48.0 - Paroxysmal atrial fibrillation (ICD-10) Retinal detachment ?H33.20 - Serous retinal detachment, unspecified eye (ICD-10) HTN (hypertension) ?I10 - Essential (primary) hypertension (ICD-10) Prostate CA ?C61 - Malignant neoplasm of prostate (ICD-10) Pacemaker ?Z95.0 - Presence of cardiac pacemaker (ICD-10) Surgical History (Updated 11/15/23 @ 15:48 by Rosenda Ramirez NP) Hx of inguinal hernia repair ?Z98.890 - Other specified postprocedural states (ICD-10) ?Z87.19 - Personal history of other diseases of the digestive system (ICD-10) History of permanent cardiac pacemaker placement ?Z95.0 - Presence of cardiac pacemaker (ICD-10) History of tricuspid valve repair ?Z98.890 - Other specified postprocedural states (ICD-10) H/O mitral valve repair ?Z98.890 - Other specified postprocedural states (ICD-10) Family History (Updated 11/15/23 @ 15:37 by Keyla Wilson) Mother Family history of CHF (congestive heart failure) Family history of hypertension Sister Family history of cancer Social History (Updated 11/15/23 @ 15:38 by Keyla Wilson) Within the past year, how often did you have a drink containing alcohol: never Score interpretation: A score less than 4 is consistent with normal alcohol consumption. Smoking status: Never smoker Non-prescribed substance use: denies use Previous occupational history: [employer] Highest level of school completed/degree received: high school graduate Are you now , , , , never or living with a partner: never In a typical week, how many times do you talk on the telephone with family, friends, or neighbors: once per week How often do you get together with friends or relatives: once per week How often do you attend voodoo or pentecostal services: never Do you belong to any clubs or organizations such as voodoo groups unions, fraternal or athletic groups, or school groups: no Total score: 0 Score interpretation: A score of less than or equal to 1 indicates the most socially isolated. Meds Home Medications and Allergies Home Medications Medication Instructions Recorded Confirmed Type aspirin 81 mg tablet,delayed 81 mg PO DAILY 11/15/23 01/08/24 History release (Janice Low Dose Aspirin) digoxin 125 mcg (0.125 mg) tablet 0.125 mg PO Q24H 11/15/23 01/08/24 History furosemide 40 mg tablet 40 mg PO Q24H 11/15/23 01/08/24 History lisinopril 2.5 mg tablet 2.5 mg PO Q24H 11/15/23 01/08/24 History oxybutynin chloride 5 mg 5 mg PO Q24H 11/15/23 01/08/24 History tablet,extended release 24 hr metoprolol succinate 50 mg 50 mg PO QDAY 12/03/23 01/08/24 History tablet,extended release 24 hr melatonin 5 mg tablet 5 mg PO QPM PRN sleep 01/08/24 01/08/24 History Allergies Allergy/AdvReac Type Severity Reaction Status Date / Time No Known Drug Allergies Allergy Verified 01/08/24 17:10 Exam Constitutional Vital Signs, click to edit/add: Last Vital Signs Temp 97.1 F L 01/09/24 04:38 Pulse 70 01/09/24 10:16 Resp 18 01/09/24 10:16 BP 95/57 01/09/24 10:16 Pulse Ox 97 01/09/24 10:16 O2 Del Method Nasal Cannula 01/09/24 05:20 O2 Flow Rate 2 01/09/24 05:20 Common normals: no apparent distress and oriented x3 Orientation/consciousness: Yes awake, Yes oriented to person, Yes oriented to place and Yes oriented to time Respiratory Common normals: normal respiratory effort Auscultation: crackles (mild) Cardio Common normals: no JVD, regular rate and regular rhythm Rate: regular rate (V paced) Extremity General: edema (mild nonpitting) Results Labs and Meds Lab results: Cardiac Enzymes 01/08/24 01/09/24 Range/Units 17:28 04:18 AST 14 L 12 L (15-37) U/L CBC 01/08/24 01/09/24 Range/Units 17:28 04:18 WBC 4.0 3.3 L (4.0-11.0) 10^3/uL RBC 3.07 L 2.64 L (4.70-6.10) 10^6/uL Hgb 10.7 L 9.0 L (14.0-18.0) g/dL Hct 33.0 L 28.9 L (42.0-54.0) % Plt Count 85 L 76 L (150-450) 10^3/uL Neut # (Auto) 2.6 1.9 (1.4-6.5) 10^3/uL Lymph # (Auto) 0.7 L 0.7 L (1.2-3.8) 10^3/uL [place] # (Auto) 0.6 0.6 (0.3-0.8) 10^3/uL Eos # (Auto) 0.1 0.1 (0.0-0.7) 10^3/uL Baso # (Auto) 0.0 0.0 (0.0-0.1) 10^3/uL Comprehensive Metabolic Panel 01/08/24 01/09/24 Range/Units 17:28 04:18 Sodium 138 139 (136-145) mmol/L Potassium 4.9 4.7 (3.5-5.1) mmol/L Chloride 103 104 (98-107) mmol/L Carbon Dioxide 24.3 28.1 (21.0-32.0) mmol/L BUN 71.0 H 69.0 H (7.0-18.0) mg/dL Creatinine 1.66 H 1.66 H (0.70-1.30) mg/dL Glucose 93 76 (74-106) mg/dL Calcium 9.4 8.7 (8.5-10.1) mg/dL Direct Bilirubin 0.5 H (0.0-0.2) mg/dL AST 14 L 12 L (15-37) U/L ALT 22 20 (16-63) U/L Alkaline Phosphatase 111 82 (46-116) U/L Total Protein 7.9 6.7 (6.4-8.2) g/dL Albumin 3.4 2.8 L (3.4-5.0) g/dL Intake and Output 01/08/24 01/09/24 01/09/24 23:59 07:59 15:59 Intake Total 740 / 740 400 / 400 Output Total 500 / 1100 600 / 1100 100 / 100 Balance 240 / -360 -600 / -360 300 / 300 Intake: Oral 240 / 240 400 / 400 IV 500 / 500 0.9 % Sodium Chloride 500 ml @ 500 / 500 500 mls/hr IV .Q1H ONE Rx#: [id number] Output: Urine 500 / 1100 600 / 1100 100 / 100 Other: Weight 97.4 kg 97.9 kg Assessment and Plan Assessment and Plan (1) Acute exacerbation of CHF (congestive heart failure): Qualifiers: Heart failure type: unspecified Qualified Code(s): I50.9 - Heart failure, unspecified (2) CKD (chronic kidney disease) stage 3, GFR 30-59 ml/min: Qualifiers: Chronic kidney disease stage 3 subtype: unspecified whether 3a or 3b Qualified Code(s): N18.30 - Chronic kidney disease, stage 3 unspecified (3) HFrEF (heart failure with reduced ejection fraction): (4) Pulmonary edema: (5) Subclinical hypothyroidism: Plan #Acute on chronic HFrEF, EF 35-40% per tte 10/2021 -Dr. 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 Will continue this plan given his age and anemia. -Continue digoxin 125mcg daily. Will check dig level. #HTN -controlled -for now i would not diurese given he is hypotensive and his labs have improved with extra PO lasix outpatient. he did receive IV bumex once 01/08 -would monitor BP and consider treating subclinical hypothyroidism vs CAP -if diuresis seems needed would not do any continuous infusions and consider low dose IV push to challenge and see if he diureses at all , although he was given bumex 2/ and has not had a lot of UOP , only 1200mls since receiving dose 01/08 -we will continue to follow patient He will need F/U with [facility] in 1-2 weeks after discharge.
--- NOTE | 2024-01-09 11:33 | SWNOTE1 ---
Nursing informed SW that pt has [facility].
--- NOTE | 2024-01-09 11:41 | W.PM.WC ---
Wound Consult Note Assessment and Plan (1) Pulmonary edema: Plan Consult: Buttock pressure ulcer Patient seen today in his hospital bed for concern of open ulcer to right buttock. Patient states he has had this area for awhile and home health care has been treating it with a patch that he leaves on for about 1 week at a time. He states it is not medicated, but it does soak up some of the drainage . Upon inspection, patient has a well demarcated circular open ulceration to his right buttock. Area is mostly red with about 10% loose yellow slough noted to lateral ulcer border. Due to slough tissue present, this ulcer may have started as unstageable, but currently I would classify as a stage 3 ulcer due to slough tissue being present. Area measures 2cmx1.6cmx0.3cm. Minimal drainage noted. Patient also reports bilateral heels are painful at times. On assessment, heels are boggy, pink, with dry scaly skin. His pink tissue does deno. He reports using moisturizer at home to assist with scaly skin. Recommend: Air mattress overlay Waffle air seat cushion Reposition frequently Lac-hydrin to BLE/dry scaly heels twice daily Medihoney gel and foam border dressing to right buttock. Assess skin every shift by peeling down dressing. Apply medihoney gel every other day. Photos taken by bedside RN. Please call [phone] with any questions or concerns. Himanshu Reyes, JAZLYNN, RN, CWON
--- NOTE | 2024-01-09 11:55 | CM.NOTE ---
Important Message From Medicare discussed with pt, pt verbalizes understanding and signs paper. Original given to pt and copy placed in pt's chart.
[2024-01-09] MEDS: AMMONIUM LACTATE 226 GM BOTTLE 1 APPLIC TOPICAL ×2 (12:23→22:02)
--- NOTE | 2024-01-09 14:24 | P.HP_ITS ---
H&P: HPI History of Present Illness Chief complaint: Shortness of Breath CHF HYPOTHERMIA Narrative: Patient complaining of shortness of breath. Presented to the ER. Found to have possible acute combined congestive heart failure with significant peripheral edema. Elevated BNP. Patient was admitted for workup and treatment of same. I saw the patient this morning and reviewed labs that his Lanoxin level is low, TSH also significantly elevated. Patient still with significant dyspnea and peripheral edema however. Review of Systems ROS Status of ROS 10 or more systems reviewed and unremark able except as noted in history and below [facility] Medical History (Updated 01/09/24 @ 12:53 by MARGARITA HERNANDEZ) Hypoxemia ?R09.02 - Hypoxemia (ICD-10) Acute exacerbation of CHF (congestive heart failure) ?I50.9 - Heart failure, unspecified (ICD-10) Thrombocytopenia ?D69.6 - Thrombocytopenia, unspecified (ICD-10) OAB (overactive bladder) ?N32.81 - Overactive bladder (ICD-10) Anemia ?D64.9 - Anemia, unspecified (ICD-10) HFrEF (heart failure with reduced ejection fraction) ?I50.20 - Unspecified systolic (congestive) heart failure (ICD-10) Atherosclerotic heart disease of [place] coronary artery without angina pectoris ?I25.10 - Atherosclerotic heart disease of [place] coronary artery without angina pectoris (ICD-10) CKD (chronic kidney disease) stage 3, GFR 30-59 ml/min ?N18.30 - Chronic kidney disease, stage 3 unspecified (ICD-10) Paroxysmal A-fib ?I48.0 - Paroxysmal atrial fibrillation (ICD-10) Retinal detachment ?H33.20 - Serous retinal detachment, unspecified eye (ICD-10) HTN (hypertension) ?I10 - Essential (primary) hypertension (ICD-10) Prostate CA ?C61 - Malignant neoplasm of prostate (ICD-10) Pacemaker ?Z95.0 - Presence of cardiac pacemaker (ICD-10) Surgical History (Updated 11/15/23 @ 15:48 by Rosenda Ramirez NP) Hx of inguinal hernia repair ?Z98.890 - Other specified postprocedural states (ICD-10) ?Z87.19 - Personal history of other diseases of the digestive system (ICD-10) History of permanent cardiac pacemaker placement ?Z95.0 - Presence of cardiac pacemaker (ICD-10) History of tricuspid valve repair ?Z98.890 - Other specified postprocedural states (ICD-10) H/O mitral valve repair ?Z98.890 - Other specified postprocedural states (ICD-10) Family History (Updated 11/15/23 @ 15:37 by Keyla Wilson) Mother Family history of CHF (congestive heart failure) Family history of hypertension Sister Family history of cancer Social History (Updated 11/15/23 @ 15:38 by Keyla Wilson) Within the past year, how often did you have a drink containing alcohol: never Score interpretation: A score less than 4 is consistent with normal alcohol consumption. Smoking status: Never smoker Non-prescribed substance use: denies use Previous occupational history: [employer] Highest level of school completed/degree received: high school graduate Are you now , , , , never or living with a partner: never In a typical week, how many times do you talk on the telephone with family, friends, or neighbors: once per week How often do you get together with friends or relatives: once per week How often do you attend jehovah's witness or sikh services: never Do you belong to any clubs or organizations such as jehovah's witness groups unions, [employer] or athletic groups, or school groups: no Total score: 0 Score interpretation: A score of less than or equal to 1 indicates the most socially isolated. Meds Home Medications and Allergies Home Medications Medication Instructions Recorded Confirmed Type aspirin 81 mg tablet,delayed 81 mg PO DAILY 11/15/23 01/08/24 History release (Janice Low Dose Aspirin) digoxin 125 mcg (0.125 mg) tablet 0.125 mg PO Q24H 11/15/23 01/08/24 History furosemide 40 mg tablet 40 mg PO Q24H 11/15/23 01/08/24 History lisinopril 2.5 mg tablet 2.5 mg PO Q24H 11/15/23 01/08/24 History oxybutynin chloride 5 mg 5 mg PO Q24H 11/15/23 01/08/24 History tablet,extended release 24 hr metoprolol succinate 50 mg 50 mg PO QDAY 12/03/23 01/08/24 History tablet,extended release 24 hr melatonin 5 mg tablet 5 mg PO QPM PRN sleep 01/08/24 01/08/24 History Allergies Allergy/AdvReac Type Severity Reaction Status Date / Time No Known Drug Allergies Allergy Verified 01/08/24 17:10 Exam Constitutional Vital Signs, click to edit/add: Last Vital Signs Temp 97.1 F L 01/09/24 04:38 Pulse 72 01/09/24 12:00 Resp 18 01/09/24 10:16 BP 86/48 L 01/09/24 12:25 Pulse Ox 97 01/09/24 11:29 O2 Del Method Nasal Cannula 01/09/24 11:29 O2 Flow Rate 2 01/09/24 11:29 Common normals: no apparent distress, oriented x3, alert and well nourished General appearance: cooperative Orientation/consciousness: Yes awake HENMT Common normals: normocephalic, head/scalp atraumatic, hearing grossly normal bilaterally, external nose normal and moist oral mucous membranes Chest Common normals: inspection of chest normal Respiratory Common normals: normal respiratory effort Auscultation: rales (BLL) Cardio Common normals: no JVD, regular rate and regular rhythm GI Common normals: Normal to inspection, nondistended, normoactive bowel sounds present, soft to palpation, non-tender, no hepatosplenomegaly, no masses and no bruits Bladder/kidney exam: bladder normal to palpation Back & Pelvis Common normals: thoracic and lumbar spine normal to inspection Extremity Common normals: normal capillary refill General: edema (2+ pitting); no clubbing and no cyanosis Neuro [place] Coma Scale: GCS not evaluated Common normals: CN's II-XII intact bilaterally, moves all extremities, no focal motor deficits and no sensory deficits noted Speech: speech normal Motor exam: strength 5/5 throughout Psych Common normals: mental status grossly normal, thought process normal, affect normal and activity/motor behavior normal Results Labs Labs: Short CBC 01/08/24 01/09/24 Range/Units 17:28 04:18 WBC 4.0 3.3 L (4.0-11.0) 10^3/uL Hgb 10.7 L 9.0 L (14.0-18.0) g/dL Hct 33.0 L 28.9 L (42.0-54.0) % Plt Count 85 L 76 L (150-450) 10^3/uL BMP 02/12/24 02/13/24 17:28 04:18 Sodium 138 139 Potassium 4.9 4.7 Chloride 103 104 Carbon Dioxide 24.3 28.1 BUN 71.0 H 69.0 H Creatinine 1.66 H 1.66 H Glucose 93 76 Calcium 9.4 8.7 Liver Function 24 01/09/24 Range/Units 17:28 04:18 Total Bilirubin 1.5 H 1.3 H (0.2-1.0) mg/dL Direct Bilirubin 0.5 H (0.0-0.2) mg/dL AST 14 L 12 L (15-37) U/L ALT 22 20 (16-63) U/L Alkaline Phosphatase 111 82 (46-116) U/L Albumin 3.4 2.8 L (3.4-5.0) g/dL Urine 01/08/24 Range/Units 17:28 Urine Color Yellow (YELLOW) Urine Clarity Clear (CLEAR) Urine pH 5.5 (5.0-9.0) Ur Specific [place] 1.020 (1.005-1.025) Urine Protein Negative (NEG/TRACE) mg/dL Urine Glucose (UA) Negative (NEGATIVE) mg/dL Assessment and Plan Assessment and Plan (1) Acute exacerbation of CHF (congestive heart failure): Qualifiers: Heart failure type: unspecified Qualified Code(s): I50.9 - Heart failure, unspecified (2) CKD (chronic kidney disease) stage 3, GFR 30-59 ml/min: Qualifiers: Chronic kidney disease stage 3 subtype: unspecified whether 3a or 3b Qualified Code(s): N18.30 - Chronic kidney disease, stage 3 unspecified (3) HFrEF (heart failure with reduced ejection fraction): (4) Pulmonary edema: (5) Subclinical hypothyroidism: Plan Hypotension, elevated BUN and creatinine secondary to acute combined congestive heart failure-possibly related to thyroid and lobe Lanoxin level as well. Consultation to cardiology. Check on echocardiogram. Hypothyroidism-will give IV dose today because of the above heart failure. Hypotension possibly related to diuresis and medications. Holding blood pressure medications this morning. Unable to do further diuresis secondary to hypotension. Lovenox level-IV dose this morning. Iron deficiency anemia-follow daily Chronic kidney disease-likely stage III, continue to follow. Check ultrasound of kidneys Permanent pacemaker. Patient states he has some issues with his pacemaker in the past. This was recent. Cardiology to investigate Patient needed close monitoring due to hypotension and need for diuresis. Hold off on further diuretics today. Did supplement digoxin and thyroid. Patient will stay span at least 2 midnights. Inpatient status.
[2024-01-09] MEDS: GUAIFENESIN 600 MG TAB.ER.12H PO (17:20)
--- NOTE | 2024-01-09 20:28 | RESP.RT ---
decreased down to 1L
[2024-01-09] MEDS: ASPIRIN 81 MG TABLET.DR PO (22:07)
[2024-01-10] VITALS (24 sets, daily range): BP systolic 91–111; BP diastolic 51–64; PULSE 69–81; RESP 16–18; TEMP 35.7–36.7; O2SAT 91–95
[2024-01-10] MEDS: ACETAMINOPHEN 500 MG TABLET 1000 MG PO (02:39)
[2024-01-10 05:38] LABS: A. calcoaceticus-baumannii Cpx NOT DETECTED (NOT DETECTE); Bacteroides fragilis NOT DETECTED (NOT DETECTE); Candida albicans NOT DETECTED (NOT DETECTE); Candida auris NOT DETECTED (NOT DETECTE); Candida glabrata NOT DETECTED (NOT DETECTE); Candida krusei NOT DETECTED (NOT DETECTE); Candida parapsilosis NOT DETECTED (NOT DETECTE); Candida tropicalis NOT DETECTED (NOT DETECTE); Cryptococcus neoformans/gattii NOT DETECTED (NOT DETECTE); Enterobacter cloacae complex NOT DETECTED (NOT DETECTE); Enterobacterales NOT DETECTED (NOT DETECTE); Enterococcus faecalis NOT DETECTED (NOT DETECTE); Enterococcus faecium NOT DETECTED (NOT DETECTE); Haemophilus influenzae NOT DETECTED (NOT DETECTE); Klebsiella aerogenes NOT DETECTED (NOT DETECTE); Klebsiella pneumoniae group NOT DETECTED (NOT DETECTE); Listeria monocytogenes NOT DETECTED (NOT DETECTE); Neisseria meningitidis NOT DETECTED (NOT DETECTE); Proteus spp. NOT DETECTED (NOT DETECTE); Pseudomonas aeruginosa NOT DETECTED (NOT DETECTE); Salmonella spp. NOT DETECTED (NOT DETECTE); Serratia marcescens NOT DETECTED (NOT DETECTE); Staphylococcus epidermidis NOT DETECTED (NOT DETECTE); Staphylococcus lugdunensis NOT DETECTED (NOT DETECTE); Staphylococcus spp. NOT DETECTED (NOT DETECTE); Stenotrophomonas maltophilia NOT DETECTED (NOT DETECTE); Streptococcus agalactiae NOT DETECTED (NOT DETECTE); Streptococcus pneumoniae NOT DETECTED (NOT DETECTE); Streptococcus pyogenes NOT DETECTED (NOT DETECTE); Streptococcus spp. NOT DETECTED (NOT DETECTE)
[2024-01-10 06:03] LABS: Basophils Percent Auto 0.3 % (0.2-2.0); Eosinophils Absolute Auto 0.1 10^3/uL (0.0-0.7); Eosinophils Percent Auto 1.3 % (0.9-7.0); Hematocrit 30.6 % (42.0-54.0); Hemoglobin 9.6 g/dL (14.0-18.0); Immature Granulocytes Abs Auto 0.01 10^3/uL (0.00-0.03); Immature Granulocytes Pct Auto 0.3 % (0.0-0.5); Lymphocytes Absolute Auto 0.9 10^3/uL (1.2-3.8); Lymphocytes Percent Auto 21.8 % (20.5-60.0); Mean Corpuscular HGB Conc 31.4 g/dL (29.9-35.2); Mean Corpuscular Hemoglobin 34.7 pg (25.9-34.0); Mean Corpuscular Volume 110.5 fL (80.0-94.0); Mean Platelet Volume 11.8 fL (9.5-13.5); Monocytes Absolute Auto 0.6 10^3/uL (0.3-0.8); Monocytes Percent Auto 15.4 % (1.7-12.0); Neutrophils Absolute Auto 2.4 10^3/uL (1.4-6.5); Neutrophils Percent Auto 60.9 % (43.0-75.0); Platelet Count 66 10^3/uL (150-450); Red Blood Count 2.77 10^6/uL (4.70-6.10); Red Cell Distribution Width 16.1 % (11.0-15.0); White Blood Count 3.9 10^3/uL (4.0-11.0)
[2024-01-10 06:28] LABS: Alanine Aminotransferase 20 U/L (16-63); Albumin Globulin Ratio 0.7; Albumin Level 2.8 g/dL (3.4-5.0); Alkaline Phosphatase 90 U/L (46-116); Anion Gap 12.8; Aspartate Amino Transferase 12 U/L (15-37); BUN Creatinine Ratio 38.2; Bilirubin Total 1.6 mg/dL (0.2-1.0); Calcium 8.9 mg/dL (8.5-10.1); Carbon Dioxide 27.1 mmol/L (21.0-32.0); Chloride 105 mmol/L (98-107); Estimated GFR (African America 48 (>=60); Estimated GFR (Non-African Ame 39 (>=60); Glucose 91 mg/dL (74-106); Potassium 4.9 mmol/L (3.5-5.1); Sodium 140 mmol/L (136-145); Total Protein 6.8 g/dL (6.4-8.2)
[2024-01-10 06:46] LABS: Source Blood
[2024-01-10 07:54] LABS: Free T3 1.89 pg/mL (2.18-3.98)
[2024-01-10] MEDS: ASPIRIN 81 MG TABLET.DR PO (09:00)
[2024-01-10] MEDS: OXYBUTYNIN CHLORIDE 5 MG TAB XL PO (09:00)
[2024-01-10] MEDS: LEVOTHYROXINE SODIUM 100 MCG TABLET PO (09:01)
[2024-01-10] MEDS: AMMONIUM LACTATE 226 GM BOTTLE 1 APPLIC TOPICAL ×2 (09:01→20:50)
[2024-01-10] MEDS: GUAIFENESIN 600 MG TAB.ER.12H PO ×2 (09:02→20:49)
[2024-01-10 09:14] LABS: Digoxin 1.6 ng/mL (0.9-2.0)
--- NOTE | 2024-01-10 09:46 | CM.NOTE ---
Rounds made with Dr. Fiore, no discharge today. Pt continues need for oxygen and having shortness of breath. Dr. Fiore discussed with pt about echo today and having cardiology see pt again today.
--- NOTE | 2024-01-10 09:52 | CA_ITS ---
Patient Name: REINA JOE MR#: [id number] : 1935 Exam Date: 01/10/2024 Ordering Doctor: DR HUNG VIDAL . ECHOCARDIOGRAM REPORT PROCEDURE: CA ECHO DOPPLER COMPLETE INDICATIONS: chf COMPARISON: None. DESCRIPTION: COMPLETE ECHOCARDIOGRAM Real-time transthoracic echocardiography with 2D, M-mode, spectral and color flow Doppler performed. QUALITY: Technical quality was good. LEFT VENTRICLE: Mild dilatation. Thickened septal wall. Systolic function is difficult to assess due to rhythm and abnormal septal motion, but appears moderately reduced. LV EF: Visual estimation of left ventricular ejection fraction is 35%. DIASTOLIC: Not adequately assessed due to heart rhythm. ATRIAL SEPTUM: LEFT ATRIUM: Severe dilatation. RIGHT ATRIUM: Severe dilatation. Pacer wire present. RIGHT VENTRICLE: Moderate dilatation. Mildly decreased right ventricular systolic function. TRICUSPID VALVE: Normal mobility and thickness. No stenosis with mild to moderate regurgitation. Severe pulmonary hypertension. RVSP 65 mmHg MITRAL VALVE: Mild to moderate mitral regurgitation. 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 Mean diastolic gradient is 5 mmHg at a heart rate of 46 bpm. AORTIC VALVE: Normal trileaflet appearance. Thickened aortic valve. Normal leaflet mobility. No evidence of aortic valve stenosis. Mild to moderate aortic regurgitation. AORTIC ROOT: Normal diameter and appearance. PULMONIC VALVE: Normal thickness and mobility. No stenosis. Mild regurgitation. PERICARDIUM: No evidence of pericardial effusion. IVC: Moderate dilatation. Measuring 2.7cm with no collapse PLEURA: CONCLUSION: 1. The left ventricle is mildly dilated. Left ventricular systolic function is difficult to assess but appears moderately reduced. LVEF is estimated at 35%. 2. Moderately dilated right ventricle with mildly reduced systolic function. 3. Severe biatrial dilatation. 4. Mild to moderate mitral, aortic and tricuspid regurgitation. 5. Mitral valve is post surgical repair with mildly increased diastolic gradients. 6. Severely elevated right-sided pressures. RVSP is 65 mmHg. Adult Echocardiography Procedure Report Left Ventricle LVEDD (3.7 - 5.6 cm): 6.13 cm LVESD (2.2 - 4.0 cm): 5.48 cm LVIVS thickness (0.6 - 1.2 cm): 1.26 cm LVPW thickness (0.5 - 1.0 cm): 1.05 cm e': 0.11 m/s E - e': 14.38 LVOT Max Gradient: 2.65 mm[Hg] LVOT Area (cm2): 0.81 m/s Peak Velocity (LVOT): 0.81 m/s Mean Velocity (LVOT): 0.44 m/s LVOT Diameter 2.56 cm Left Ventricular Ejection Fraction: 35 % Left Atrium LA Volume Index (2D A2C): 89.99 ml/m2 Left Atrium Systolic Dimension: 6.93 cm Mitral Valve Mitral Valve E-Wave Peak Velocity: 1.55 m/s Right Ventricle RV Internal Diastolic Dimension: 5.61 cm Aorta AO Root Diam: 3.67 cm Aortic Valve AoV Area ([place]): 2.87 cm2, 2.87 cm2 AoV Area (VTI): 2.69 cm2, 2.69 cm2 Deceleration [place]: 2.49 m/s2 Pressure Half-Time: 331.84 ms Peak Velocity(Antegrade Flow): 1.46 m/s Peak Gradient(Antegrade Flow): 8.50 mm[Hg] Mean Velocity(Antegrade Flow): 0.86 m/s Mean Gradient(Antegrade Flow): 3.59 mm[Hg] Velocity Time Integral: 27.10 cm Tricuspid Valve Peak Velocity (Regurgitant Flow): 2.62 m/s, 3.55 m/s Pulmonic Valve Peak Velocity: 0.97 m/s Peak Gradient: 3.74 mm[Hg] Right Atrium Right Atrium Systolic Pressure: 128.87 ml, 128.87 ml Dictated by: Davion Orosco M.D. on 01/10/2024 at 19:39 Approved by: Davion Orosco M.D. on 01/10/2024 at 19:45
--- NOTE | 2024-01-10 09:54 | SWNOTE1 ---
SW sent face sheet, ER note, H&P, PT/OT notes, and inpatient order to [facility].
--- NOTE | 2024-01-10 09:57 | P.PN_ITS ---
Progress Note: Subjective Subjective Interval history: Patient still has significant weakness. Dyspnea. Blood pressure still running low however. Exam Constitutional Vital Signs, click to edit/add: Last Vital Signs Temp 98.1 F 01/10/24 05:23 Pulse 71 01/10/24 08:46 Resp 16 01/10/24 05:23 BP 91/55 01/10/24 05:23 Pulse Ox 92 L 01/10/24 05:23 O2 Del Method Nasal Cannula 01/10/24 05:23 O2 Flow Rate 2 01/10/24 05:23 Common normals: no apparent distress, oriented x3, alert and well nourished General appearance: cooperative Orientation/consciousness: Yes awake HENMT Common normals: normocephalic, head/scalp atraumatic, hearing grossly normal bilaterally, external nose normal and moist oral mucous membranes Chest Common normals: inspection of chest normal Respiratory Common normals: normal respiratory effort Auscultation: rales (BLL) Cardio Common normals: no JVD, regular rate and regular rhythm GI Common normals: Normal to inspection, nondistended, normoactive bowel sounds present, soft to palpation, non-tender, no hepatosplenomegaly, no masses and no bruits Bladder/kidney exam: bladder normal to palpation Back & Pelvis Common normals: thoracic and lumbar spine normal to inspection Extremity Common normals: normal capillary refill General: edema (2+ pitting); no clubbing and no cyanosis Neuro Hume Coma Scale: GCS not evaluated Common normals: CN's II-XII intact bilaterally, moves all extremities, no focal motor deficits and no sensory deficits noted Speech: speech normal Motor exam: strength 5/5 throughout Psych Common normals: mental status grossly normal, thought process normal, affect normal and activity/motor behavior normal Progress Note: Objective Labs Labs: Short CBC 01/10/24 Range/Units 05:44 WBC 3.9 L (4.0-11.0) 10^3/uL Hgb 9.6 L (14.0-18.0) g/dL Hct 30.6 L (42.0-54.0) % Plt Count 66 L (150-450) 10^3/uL BMP 01/10/24 05:44 Sodium 140 Potassium 4.9 Chloride 105 Carbon Dioxide 27.1 BUN 63.0 H Creatinine 1.65 H Glucose 91 Calcium 8.9 Liver Function 01/10/24 Range/Units 05:44 Total Bilirubin 1.6 H (0.2-1.0) mg/dL AST 12 L (15-37) U/L ALT 20 (16-63) U/L Alkaline Phosphatase 90 (46-116) U/L Albumin 2.8 L (3.4-5.0) g/dL Progress Note: A&P Assessment and Plan (1) Acute exacerbation of CHF (congestive heart failure): Qualifiers: Heart failure type: unspecified Qualified Code(s): I50.9 - Heart failure, unspecified (2) CKD (chronic kidney disease) stage 3, GFR 30-59 ml/min: Qualifiers: Chronic kidney disease stage 3 subtype: unspecified whether 3a or 3b Qualified Code(s): N18.30 - Chronic kidney disease, stage 3 unspecified (3) HFrEF (heart failure with reduced ejection fraction): (4) Pulmonary edema: (5) Subclinical hypothyroidism: Plan Hypotension, elevated BUN and creatinine secondary to acute combined congestive heart failure-possibly related to thyroid and low Lanoxin level as well. Blood pressure still low so held off on diuretics this morning, will review with cardiology, Lanoxin level is returned to normal, thyroid level still low. Hypothyroidism-continue with oral dosing at this point Hypotension possibly related to diuresis and medications. Holding blood pressure medications for systolic blood pressure less than 110, see cardiology note Lanoxin level-low previously, back to baseline today. Iron deficiency anemia-follow daily Chronic kidney disease-likely stage III, continue to follow. Check on ultrasound of kidneys Permanent pacemaker. Patient states he has some issues with his pacemaker in the past. This was recent. Cardiology to investigate Blood culture was returned positive, uncertain source-with his hypotension will add IV antibiotics tonight. Check and urine culture as well. Patient likely needs further diuresis, still with significant peripheral edema and shortness of breath, will review plan with cardiology. With significant hypotension with symptoms, maintain patient inpatient status
[2024-01-10] MEDS: LIOTHYRONINE SODIUM 5 MCG TABLET 10 MCG PO (10:35)
[2024-01-10] MEDS: FUROSEMIDE 40 MG/4 ML VIAL IVP ×2 (11:22→20:49)
--- NOTE | 2024-01-10 11:34 | REH.PTDLY ---
Physical Therapy Daily Note PT Daily Note/Assess Start: 01/09/24 11:57 Freq: Status: Active Protocol: Document 01/10/24 10:50 MILI (Rec: 01/10/24 11:34 MILI [id number]) Physical Therapy Daily Note/Assessment Time In 10:31 Time Out 10:49 Pain Level 0 Subjective Pt agreeable to therapy, laying in bed. Does not use device at home per pt report. Therapeutic Exercise Minutes (minutes) 5 Therapeutic Exercise Units 0 Therapeutic Exercise Treatment Instructed in seated exs sitting bedside 10x ea with Alphonse LE. Good ROM noted with no complaints from pt. Therapeutic Activity Minutes (minutes) 10 Therapeutic Activity Units 1 Bed Mobility Ability Independent Chair Transfer Ability Standby Assistance Therapeutic Activity Comments SpO2 on 2L of O2 at 92% prior to gait. Gait training in room with shoes on and no AD on 2L of O2 SBA 60 feet. SpO2 drops to 80% post gait, takes about 3 mins for it to rise back to 95%. Sit to stand transfers 5x in a row with pt denying any dizziness. Pt stays standing statically with no UE support for 2 mins while nursing applies medihoney to backside and fixes sheets. Ind with transfers in and out of bed. Total Therapy Minutes 15 Total Physical Therapy Units 1 Daily Note Summary Pt denies any increase in dizziness or pain. Pt states he does not wear O2 at home, however pt's O2 sats drop with gait in room today while wearing O2. Mild fatigue post rx.
--- NOTE | 2024-01-10 12:15 | OT.DAILY ---
Occupational Therapy Daily Note OT Inpatient Daily Visit Note Start: 01/09/24 11:11 Freq: Status: Active Protocol: Document 01/10/24 12:04 MARKIE (Rec: 01/10/24 12:15 MARKIE [id number]) OT Visit Details Time In/Time Out Time In 11:30 Time Out 12:00 Pain In Pain Level 0 Pain Out Pain Level 0 OT Treatment Plan Subjective Subjective Resting in bed upon arrival. Reports he was feeling a little lightheaded, but is feeling better now. Objective Objective Pt able to manuver self from supine to EOB with CGA. Able to sit EOB to complete oral care. Pt did not complete oral care in bathrm due to O2 cord unable to reach needed areas in bathrm. Sit to std from EOB with CGA. Able to complete functional mobility throughout rm with CGA. No AD used to A with bal on this date. Able to complete ADL tf in out of arm chair in rm with CGA. Transfer back into bed and bring B LE into bed without A. Pt O2 90% able to recover to 95% within 1 min. Ed on PLB to increase 02 level Assessment Assessment Yang tx well on this date. G motivation Plan Plan Cont with current POC
--- NOTE | 2024-01-10 13:08 | P.CAPN_ITS ---
<Statement entered by ROSSI GUNN - 01/31/24 00:21> This documentation has been reviewed and approved. Progress Note: A&P Assessment and Plan (1) Acute exacerbation of CHF (congestive heart failure): Assessment and Plan: Continue GDMT- resume lasix 40 mg daily for diuresis, continue toprol, lisinopril, digoxin, ASA Monitor daily weights, I&O, low sodium diet, fluid restriction 1.5-2L/day Monitor renal function and electrolytes. Pt currently does not appear very fluid overloaded, BNP improved and renal function stable. 11/16/23 Echo- FINDINGS: .LEFT VENTRICLE: Moderate dilatation. Thickened septal wall. LV EF: Global left ventricular systolic function is moderately decreased. Visual estimation of left ventricular ejection fraction is unchanged from previous exam of 05/02/23 at 35-40%. Abnormal septal motion; may be related to underlying paced rhythm. D-shaped septum consistent with right ventricular pressure and/or volume overload. The distal inferior wall is akinetic. LEFT ATRIUM: Severe dilatation. RIGHT ATRIUM: Moderate dilatation. RIGHT VENTRICLE: Severe dilatation. Normal right ventricular systolic function. Pacer wire present. TRICUSPID VALVE: Normal mobility and thickness. Moderate tricuspid regurgitation. Moderate pulmonary hypertension. 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 AORTIC VALVE: Normal trileaflet appearance. Thickened, calcific, aortic valve. AORTIC ROOT: Mildly dilated. PULMONIC VALVE: Normal thickness and mobility. PERICARDIUM: No evidence of pericardial effusion. IVC: Collapses with inspirations. Normal size. CONCLUSION: 1. Global left ventricular systolic function is moderately reduced; visually estimated ejection fraction is 35 to 40% 2. Segmental wall motion abnormalities seen 3. The left ventricle is moderately dilated 4. Biatrial enlargement 5. The right ventricle is severely dilated with normal systolic function 6. Moderate tricuspid regurgitation 7. Moderately elevated right ventricular systolic pressure A limited echocardiogram was performed Qualifiers: Heart failure type: systolic Qualified Code(s): I50.23 - Acute on chronic systolic (congestive) heart failure (2) CKD (chronic kidney disease) stage 3, GFR 30-59 ml/min: Assessment and Plan: currently stable Qualifiers: Chronic kidney disease stage 3 subtype: unspecified whether 3a or 3b Qualified Code(s): N18.30 - Chronic kidney disease, stage 3 unspecified (3) HFrEF (heart failure with reduced ejection fraction): Assessment and Plan: as above (4) Pulmonary edema: Assessment and Plan: CXR FINDINGS: Support devices: Dual lead pacer leads are not substantially changed in position. Lungs/pleura: No pneumothorax. Mild bilateral perihilar cuffing and small right pleural effusion, representing pulmonary edema. Heart and mediastinum: Cardiomegaly. Bones: No acute abnormality identified. XR/XR chest 1V Impression: Mild cardiomegaly. Mild bilateral perihilar cuffing and small right pleural effusion, representing pulmonary edema. (5) Subclinical hypothyroidism: Assessment and Plan: as per primary service Plan as above Venecia Tess [facility] Cardiology Subjective Subjective Principal diagnosis: Pulmonary edema, HFrEF Interval history: Assessed at bedside, no acute events overnight. Remains on oxygen via NC, and admits SOB and + orthopnea. States leg swelling is better, but still a little bit of normal swelling noted. States nurse just gave him the diuretic since his b/p is better. Denied fever, chills. Admits occasional lightheadedness- states he has been up ambulating in room without incident. Exam Constitutional Vital Signs, click to edit/add: Last Vital Signs Temp 98.1 F 01/10/24 05:23 Pulse 72 01/10/24 12:10 Resp 16 01/10/24 05:23 BP 111/51 01/10/24 11:22 Pulse Ox 95 01/10/24 11:57 O2 Del Method Nasal Cannula 01/10/24 11:57 O2 Flow Rate 2 01/10/24 11:57 Common normals: no apparent distress and oriented x3 General appearance: cooperative, comfortable and frail appearing Respiratory Common normals: normal respiratory effort, no retractions and no use of accessory muscles Auscultation: diminished lung sounds (bilat bases) bilateral Cardio Common normals: regular rate, regular rhythm, S1 normal heart sound and S2 normal heart sound Peripheral pulses: radial pulses present, posterior tibial pulses present and dorsalis pedis pulses present Extremity Common normals: normal capillary refill and no clubbing, cyanosis or edema (1-2+ pitting BLE edema) Neuro Common normals: oriented x3, CN's II-XII intact bilaterally and moves all extremities Psych Common normals: thought process normal, cooperative, affect normal and speech normal
[2024-01-10] MEDS: DIGOXIN 125 MCG TABLET PO (20:49)
[2024-01-10] MEDS: LEVOFLOXACIN IN DEXTROSE 5 % 750 MG/150 ML IV.SOLN 100 MG IV (20:49)
[2024-01-11] VITALS (20 sets, daily range): BP systolic 97–106; BP diastolic 58–65; PULSE 69–82; RESP 13–20; TEMP 35.6–36.6; O2SAT 88–97
--- NOTE | 2024-01-11 01:30 | PC.NURSE ---
patient noted an open area to right buttocks. Area cleansed and covered.
[2024-01-11] MEDS: LEVOTHYROXINE SODIUM 100 MCG TABLET PO (05:19)
[2024-01-11 06:02] LABS: Basophils Percent Auto 0.4 % (0.2-2.0); Eosinophils Percent Auto 0.8 % (0.9-7.0); Hematocrit 32.4 % (42.0-54.0); Immature Granulocytes Abs Auto 0.01 10^3/uL (0.00-0.03); Immature Granulocytes Pct Auto 0.2 % (0.0-0.5); Lymphocytes Absolute Auto 0.9 10^3/uL (1.2-3.8); Lymphocytes Percent Auto 18.6 % (20.5-60.0); Mean Corpuscular HGB Conc 30.9 g/dL (29.9-35.2); Mean Corpuscular Volume 110.2 fL (80.0-94.0); Mean Platelet Volume 11.2 fL (9.5-13.5); Monocytes Absolute Auto 0.7 10^3/uL (0.3-0.8); Monocytes Percent Auto 14.9 % (1.7-12.0); Neutrophils Absolute Auto 3.1 10^3/uL (1.4-6.5); Neutrophils Percent Auto 65.1 % (43.0-75.0); Platelet Count 71 10^3/uL (150-450); Red Blood Count 2.94 10^6/uL (4.70-6.10); Red Cell Distribution Width 16.2 % (11.0-15.0); White Blood Count 4.8 10^3/uL (4.0-11.0)
[2024-01-11 06:27] LABS: Alanine Aminotransferase 20 U/L (16-63); Albumin Globulin Ratio 0.6; Alkaline Phosphatase 95 U/L (46-116); Anion Gap 14.7; Aspartate Amino Transferase 13 U/L (15-37); BUN Creatinine Ratio 32.9; Bilirubin Total 1.9 mg/dL (0.2-1.0); Carbon Dioxide 27.5 mmol/L (21.0-32.0); Chloride 103 mmol/L (98-107); Estimated GFR (African America 48 (>=60); Estimated GFR (Non-African Ame 40 (>=60); Globulin 4.7 g/dL; Glucose 90 mg/dL (74-106); Potassium 4.2 mmol/L (3.5-5.1); Sodium 141 mmol/L (136-145); Total Protein 7.7 g/dL (6.4-8.2)
[2024-01-11 06:51] LABS: Digoxin 1.5 ng/mL (0.9-2.0)
[2024-01-11] MEDS: ASPIRIN 81 MG TABLET.DR PO (09:30)
[2024-01-11] MEDS: OXYBUTYNIN CHLORIDE 5 MG TAB XL PO (09:31)
[2024-01-11] MEDS: AMMONIUM LACTATE 226 GM BOTTLE 1 APPLIC TOPICAL ×2 (09:32→20:45)
[2024-01-11] MEDS: LIOTHYRONINE SODIUM 5 MCG TABLET 10 MCG PO (09:33)
[2024-01-11] MEDS: GUAIFENESIN 600 MG TAB.ER.12H PO ×2 (09:34→20:45)
--- NOTE | 2024-01-11 12:00 | PM.PN ---
Progress Note: Subjective Subjective Interval history: Patient stable this am. Continues to have weakness and SOB with activity. BP remains low. Edema much improved with lasix. No chest pain or palptiations. Mild cough. Normal appetite and no emesis or diarrhea. Working with PT. Exam Constitutional Vital Signs, click to edit/add: Last Vital Signs Temp 97.5 F L 01/11/24 04:29 Pulse 78 01/11/24 11:59 Resp 16 01/11/24 08:00 BP 97/58 01/11/24 09:31 Pulse Ox 90 L 01/11/24 07:45 O2 Del Method Nasal Cannula 01/11/24 07:45 O2 Flow Rate 1.5 01/11/24 07:45 Documenting provider has reviewed patient's vital signs: yes Common normals: no apparent distress, oriented x3 and alert HENMT Common normals: normocephalic Eye Common normals: PERRL and EOMs intact bilaterally Respiratory Common normals: normal respiratory effort and clear to auscultation bilaterally Cardio Common normals: regular rate, no gallops, no murmurs and no rub Rhythm: abnormal rhythm irregularly irregular GI Common normals: Normal to inspection, nondistended, normoactive bowel sounds present and non-tender Extremity General: edema (2+ bipedal pitting edema) Progress Note: Objective Labs Labs: Short CBC 01/11/24 Range/Units 05:40 WBC 4.8 (4.0-11.0) 10^3/uL Hgb 10.0 L (14.0-18.0) g/dL Hct 32.4 L (42.0-54.0) % Plt Count 71 L (150-450) 10^3/uL BMP 01/11/24 05:40 Sodium 141 Potassium 4.2 Chloride 103 Carbon Dioxide 27.5 BUN 54.0 H Creatinine 1.64 H Glucose 90 Calcium 9.0 Liver Function 01/11/24 Range/Units 05:40 Total Bilirubin 1.9 H (0.2-1.0) mg/dL AST 13 L (15-37) U/L ALT 20 (16-63) U/L Alkaline Phosphatase 95 (46-116) U/L Albumin 3.0 L (3.4-5.0) g/dL Progress Note: A&P Assessment and Plan (1) Acute on chronic HFrEF (heart failure with reduced ejection fraction): (2) Pulmonary edema: (3) Hypotension: (4) Subclinical hypothyroidism: (5) HTN (hypertension): Qualifiers: Hypertension type: primary hypertension Qualified Code(s): I10 - Essential (primary) hypertension (6) Paroxysmal A-fib: (7) Stage 3b chronic kidney disease (CKD): Plan Patient improving with IV lasix and continue. BP remains low and add midodrine. Continue metoprolol and lisinopril. Continue IV lasix. Continue PT for strengthening. If BP stable likely home in am.
--- NOTE | 2024-01-11 12:02 | CM.NOTE ---
Rounds made with Dr. Escalante. Dr. Escalante to adjust medications. No plan for discharge today.
[2024-01-11] MEDS: MIDODRINE HCL 5 MG TABLET 10 MG PO ×2 (13:49→23:09)
--- NOTE | 2024-01-11 13:56 | PT.DAILY ---
Physical Therapy Daily Note PT Daily Note/Assess Start: 01/09/24 11:57 Freq: Status: Active Protocol: Document 01/11/24 10:30 ESHULTZ (Rec: 01/11/24 13:55 ESHULTZ [id number]) Visit Not Completed Visit Not Completed Visit Not Completed Due to: Pt refusing Other Reason Visit Not Completed Patient declines PT x2 attempts this AM. Reports was just up with OT, and is tired. Did not sleep all night due to having to go to the bathroom. I am just tired. I want to get up and walk, but not right now, explained to patient that time was limited for PT, so if not completed at this time would not be back until tomorrow. Patient verbalized understanding and reports will get up with nursing later this afternoon. Physical Therapy Daily Note/Assessment Time In/Time Out Time In 10:30 Time Out 10:30 GG. Functional Abilities and Goals-Complete for Swing Bed Patients Only [id number]. Self-Care [id number]. Mobility Edit Result 01/11/24 11:00 ESHULTZ (Rec: 01/11/24 13:56 ESHULTZ [id number]) Physical Therapy Daily Note/Assessment Time In/Time Out Time In 11:00 Time Out 11:00 Edit Time 01/11/24 11:00 ESHULTZ (Rec: 01/11/24 13:56 ESHULTZ [id number]) 01/11/24 10:30=>01/11/24 11:00
[2024-01-11] MEDS: DIGOXIN 125 MCG TABLET PO (20:45)
--- NOTE | 2024-01-11 21:13 | RESP.RT ---
titrated oxygen up to 2L and Sp02 increased to 92%
[2024-01-12] VITALS (17 sets, daily range): BP systolic 112–125; BP diastolic 57–75; PULSE 70–80; RESP 18; TEMP 36.4–37; O2SAT 79–94
[2024-01-12 05:14] LABS: Basophils Percent Auto 0.2 % (0.2-2.0); Eosinophils Absolute Auto 0.1 10^3/uL (0.0-0.7); Eosinophils Percent Auto 1.2 % (0.9-7.0); Hemoglobin 9.5 g/dL (14.0-18.0); Immature Granulocytes Abs Auto 0.01 10^3/uL (0.00-0.03); Immature Granulocytes Pct Auto 0.2 % (0.0-0.5); Lymphocytes Absolute Auto 0.9 10^3/uL (1.2-3.8); Lymphocytes Percent Auto 19.9 % (20.5-60.0); Mean Corpuscular HGB Conc 31.7 g/dL (29.9-35.2); Mean Corpuscular Hemoglobin 34.5 pg (25.9-34.0); Mean Corpuscular Volume 109.1 fL (80.0-94.0); Mean Platelet Volume 11.5 fL (9.5-13.5); Monocytes Absolute Auto 0.7 10^3/uL (0.3-0.8); Monocytes Percent Auto 16.9 % (1.7-12.0); Neutrophils Absolute Auto 2.7 10^3/uL (1.4-6.5); Neutrophils Percent Auto 61.6 % (43.0-75.0); Platelet Count 69 10^3/uL (150-450); Red Blood Count 2.75 10^6/uL (4.70-6.10); Red Cell Distribution Width 15.9 % (11.0-15.0); White Blood Count 4.3 10^3/uL (4.0-11.0)
[2024-01-12 05:46] LABS: Digoxin 1.4 ng/mL (0.9-2.0)
[2024-01-12 05:53] LABS: Alanine Aminotransferase 17 U/L (16-63); Albumin Globulin Ratio 0.7; Albumin Level 2.9 g/dL (3.4-5.0); Alkaline Phosphatase 93 U/L (46-116); Anion Gap 11.1; Aspartate Amino Transferase 11 U/L (15-37); BUN Creatinine Ratio 34.9; Bilirubin Total 1.9 mg/dL (0.2-1.0); Carbon Dioxide 28.1 mmol/L (21.0-32.0); Chloride 106 mmol/L (98-107); Estimated GFR (African America 54 (>=60); Estimated GFR (Non-African Ame 44 (>=60); Globulin 4.3 g/dL; Glucose 94 mg/dL (74-106); Potassium 4.2 mmol/L (3.5-5.1); Sodium 141 mmol/L (136-145); Total Protein 7.2 g/dL (6.4-8.2)
[2024-01-12] MEDS: LEVOTHYROXINE SODIUM 100 MCG TABLET PO (05:57)
[2024-01-12] MEDS: MIDODRINE HCL 5 MG TABLET 10 MG PO ×2 (05:57→13:29)
[2024-01-12] MEDS: FUROSEMIDE 40 MG/4 ML VIAL IVP (09:23)
[2024-01-12] MEDS: LIOTHYRONINE SODIUM 5 MCG TABLET 10 MCG PO (09:26)
[2024-01-12] MEDS: OXYBUTYNIN CHLORIDE 5 MG TAB XL PO (09:26)
[2024-01-12] MEDS: ASPIRIN 81 MG TABLET.DR PO (09:26)
[2024-01-12] MEDS: GUAIFENESIN 600 MG TAB.ER.12H PO (09:26)
[2024-01-12] MEDS: AMMONIUM LACTATE 226 GM BOTTLE 1 APPLIC TOPICAL (09:34)
--- NOTE | 2024-01-12 10:58 | CM.NOTE ---
Rounds made with Dr. Escalante, discussed discharge planning with transcription specialist therapy vs HH services. Dr. Escalante also discussed possible need for home oxygen. Pt would like to do walk test and see how he does ambulating today before he makes a decision.
--- NOTE | 2024-01-12 11:47 | PT.DAILY ---
Physical Therapy Daily Note PT Daily Note/Assess Start: 01/09/24 11:57 Freq: Status: Active Protocol: Document 01/12/24 10:40 FILEMON (Rec: 01/12/24 11:47 ESHULICHA [id number]) Physical Therapy Daily Note/Assessment Time In/Time Out Time In 10:40 Time Out 11:05 Subjective Subjective Patient is worried about going home with O2. Is very fixated on this throughout RX. Therapeutic Activity Time Therapeutic Activity Minutes (minutes) 25 Therapeutic Activity Units 2 Therapeutic Activity Treatment Therapeutic Activity Comments Assisted nursing with walk test today. SPO2 on 2 LO2 at rest was 92 percent. SPO2 at rest on room air was 82 percent. Did come up quickly with re-application of O2. Gait 40' without AD and CGA, patient was very impulsive and unsteady with gait. This was completed without O2 and SPO2 was 79 percent post ambulation . Nursing re-applied O2 and SPO2 increased to 90 percent. Gait with 3 LO2 and use of RW was 100 ft. with CGA/SBA. Patient is impulsive with quick pace required verbal cues to slow down for safety. SPO2 decreased to 74 percent. Nursing adjusted O2 levels as necessary and SPO2 came back to 92 percent over period of time. Total Physical Therapy Time Total Therapy Minutes 25 Total Physical Therapy Units 2 Summary Daily Note Summary Comparison of ambulation without AD vs with RW today. Patient is unsteady and impulsive without AD today, did demonstrate improved balance with use of RW. Educated patient on need for RW and why, patient verbalized understanding but declined to get or use RW at home at this point in time. Recommend PT when patient is DC home to improved strength and safety with gait.
--- NOTE | 2024-01-12 12:09 | RESP.RT ---
placed on 2 LPM NC, SpO2 up to 91%
--- NOTE | 2024-01-12 12:20 | PM.DS1 ---
DS: Providers Provider Date of admission: 01/09/24 08:43 Primary care physician: Timo Bar DO Consults: 01/08/24 23:15 Consult to Cardiology Routine Reason for consultation: CHF Exacerb Has provider been notified: No 01/09/24 Consult to Wound Care Routine Consulting Provider: Himanshu Reyes Reason for consultation: Wound to patients buttocks Has provider been notified: No 01/09/24 08:44 Occupational Therapy Eval and Treat Routine Reason for consultation: eval if needed for rehab Physical Therapy Eval and Treat Routine Reason for consultation: vernell DS: Diagnosis Discharge Diagnosis (1) Acute on chronic HFrEF (heart failure with reduced ejection fraction): (2) Acute respiratory failure with hypoxia: (3) Pulmonary edema: (4) Hypotension: (5) Subclinical hypothyroidism: (6) HTN (hypertension): Qualifiers: Hypertension type: primary hypertension Qualified Code(s): I10 - Essential (primary) hypertension (7) Paroxysmal A-fib: (8) Stage 3b chronic kidney disease (CKD): DS: Summary Hospital Course Hospital Course: Reason for admission: See ER note and H&P for details. 88 y/o male with a history of CHF to ER with SOB. C/o symptoms for several days along with increased edema. Seen by cardiology week prior and lasix increased. Continued to have swelling and SOB. To ER and found signs of fluid overload. Labs showed elevated TSH and admitted for treatment. Hospital course: Started IV lasix. BP low and held lisinopril and metoprolol. Started synthroid and cytomel. Developed hypoxia and placed on oxygen. Cardiology consulted and recommended continued treatment with lasix. Patient gradually improved. Started PT for weakness and recommended Home health. Continued to have low BP and added midodrine. Patient improved and BP improved. Able to give lasix, lisinopril, and metoprolol. Attempted to wean oxygen and had continued desaturation. Performed walk test and desaturated to 79%. Arranged for home oxygen with portability. Discharged home with home health in stable condition. Will continue thyroid medication and midodrine. Continue home medication as directed. Follow up with cardiology in 1-2 weeks. Time Spent with Patient Time attestation: Total time spent providing and/or coordinating discharge services: Exam Constitutional Vital Signs, click to edit/add: Last Vital Signs Temp 98.6 F 01/12/24 06:00 Pulse 70 01/12/24 11:51 Resp 18 01/12/24 08:00 BP 112/66 01/12/24 09:23 Pulse Ox 84 L 01/12/24 12:09 O2 Del Method Room Air 01/12/24 12:09 O2 Flow Rate 2 01/12/24 06:00 Documenting provider has reviewed patient's vital signs: yes Common normals: no apparent distress, oriented x3 and alert HENMT Common normals: normocephalic Eye Common normals: PERRL and EOMs intact bilaterally Respiratory Common normals: normal respiratory effort and clear to auscultation bilaterally Cardio Common normals: regular rate, regular rhythm, no gallops, no murmurs and no rub GI Common normals: Normal to inspection, nondistended, normoactive bowel sounds present Extremity General: edema (1+ bipedal pitting edema) DS: Data Data Completed and Pending Labs on day of discharge: Labs from last 24 hours 01/12/24 04:49 WBC 4.3 RBC 2.75 L Hgb 9.5 L Hct 30.0 L MCV 109.1 H MCH 34.5 H MCHC 31.7 RDW 15.9 H Plt Count 69 L MPV 11.5 Neut % (Auto) 61.6 Lymph % (Auto) 19.9 L [place] % (Auto) 16.9 H Eos % (Auto) 1.2 Baso % (Auto) 0.2 Neut # (Auto) 2.7 Lymph # (Auto) 0.9 L [place] # (Auto) 0.7 Eos # (Auto) 0.1 Baso # (Auto) 0.0 Abs Immat Gran (auto) 0.01 Imm/Tot Granulo (auto) 0.2 Sodium 141 Potassium 4.2 Chloride 106 Carbon Dioxide 28.1 Anion Gap 11.1 BUN 52.0 H Creatinine 1.49 H Est GFR ( Amer) 54 L Est GFR (Non-Af Amer) 44 L BUN/Creatinine Ratio 34.9 Glucose 94 Calcium 9.0 Total Bilirubin 1.9 H AST 11 L ALT 17 Alkaline Phosphatase 93 NT-Pro-B Natriuret Pep 4324.0 H* Total Protein 7.2 Albumin 2.9 L Globulin 4.3 Albumin/Globulin Ratio 0.7 Digoxin 1.4 Preliminary micro results at discharge 01/08/24 17:36 - Preliminary Blood NO GROWTH AT 36-48 HOURS. FINAL TO FOLLOW. 01/08/24 17:28 Blood Culture Result 1 - Preliminary Blood Micrococcus luteus Discharge Plan Discharge Disposition: Home Health Service Discharge Medications: New levothyroxine 100 mcg Tablet 100 mcg PO ACB Qty: 30 0RF liothyronine 5 mcg Tablet 10 mcg PO QD Qty: 30 0RF midodrine 5 mg Tablet 10 mg PO TID Qty: 90 0RF Continued oxybutynin chloride 5 mg tablet extended release 24hr 5 mg PO Q24H digoxin 125 mcg (0.125 mg) tablet 0.125 mg PO Q24H lisinopril 2.5 mg tablet 2.5 mg PO Q24H Hold Instructions: Until OK with PCP based on renal function Patient Comments: Only takes if Systolic is above 95 per pt aspirin [Janice Low Dose Aspirin] 81 mg tablet,delayed release (DR/EC) 81 mg PO DAILY furosemide 40 mg tablet 40 mg PO Q24H metoprolol succinate 50 mg tablet extended release 24 hr 50 mg PO QDAY melatonin 5 mg tablet 5 mg PO QPM PRN (Reason: sleep) Activity: resume usual activities as tolerated Diet: advance to your usual diet Forms: Portal Instructions
--- NOTE | 2024-01-12 12:45 | CM.NOTE ---
Updates sent to [facility] for pt's discharge to home, discharge order, med list, and discharge summary. New Referral also sent to [facility] for new oxygen referral sent (H&P, face sheet, walk test, and 's progress note with order for oxygen).
--- NOTE | 2024-01-12 13:19 | CM.NOTE ---
Called [facility] to make sure fax was recieved and update on pt's discharge.
--- NOTE | 2024-01-12 15:00 | CM.NOTE ---
[facility] called and will accept pt, tank taken to pt's room for discharge and updated pt on [facility] and [facility] services at discharge.
--- NOTE | 2024-01-15 13:38 | CM.DCFOLLOWU ---
Person spoke with:patient How are you feeling? good How is your pain? none Did you understand your discharge instructions? yes Do you have any questions about your discharge instructions? no Were you given any prescriptions at discharge? yes Were you able to get your prescriptions filled? yes Do you understand how to take your medications as ordered? yes Do you have any questions about your follow up appointment and do you plan to keep your follow up appointment? No questions. My appointment with Dr. Bar is tomorrow. Is there anything else that you would like to discuss? [facility] came out today and [facility] got my oxygen all set up without any issues. Questions/Comments/Concerns/Other: n/a
== END 2024-01-12 14:13 | disposition home health service (06) | DRG 291 ==
LOC: ER 19:55 → ICU 21:38 → MS 01-09 13:24
PROVIDERS: Emergency Medicine; Family Medicine; Internal Medicine; Nurse Practitioner Acute Care; Admitting Provider Family Medicine; Emergency Provider Internal Medicine; PCP Internal Medicine; Visit Provider Family Medicine
DX: I13.0 Hypertensive heart and chronic kidney disease with heart failure and stage 1 through stage 4 chronic kidney disease, or unspecified chronic kidney disease (principal); I50.23 Acute on chronic systolic (congestive) heart failure; L89.313 Pressure ulcer of right buttock, stage 3; J96.01 Acute respiratory failure with hypoxia; J81.1 Chronic pulmonary edema; R78.81 Bacteremia; I95.9 Hypotension, unspecified; D50.9 Iron deficiency anemia, unspecified; E03.8 Other specified hypothyroidism; I25.10 Atherosclerotic heart disease of native coronary artery without angina pectoris; I48.0 Paroxysmal atrial fibrillation; Z95.0 Presence of cardiac pacemaker; Z85.46 Personal history of malignant neoplasm of prostate; Z98.890 Other specified postprocedural states; Z79.82 Long term (current) use of aspirin; Z79.899 Other long term (current) drug therapy; N18.32 Chronic kidney disease, stage 3b; Z99.81 Dependence on supplemental oxygen; R68.0 Hypothermia, not associated with low environmental temperature
CPT/HCPCS: 0202U; 36415; 71045; 76770; 80048; 80053; 80076; 80162; 81003; 83605; 83880; 84145; 84436; 84439; 84443; 84481; 84484; 85025; 87040; 87150; 93005; 93306; 94761; 96365; 96366; 96375; 96376; 97165; 97530; 97535; 99285; G0328; G0378; J0650; J1160; J1940

== ENCOUNTER 2024-01-26 15:25 | Outpatient (OUT) | payer MEDICARE, OTHER, SELFPAY ==
[2024-01-26 16:08] LABS: Anion Gap 12.5; BUN Creatinine Ratio 31.6; Calcium 9.3 mg/dL (8.5-10.1); Carbon Dioxide 30.8 mmol/L (21.0-32.0); Chloride 98 mmol/L (98-107); Estimated GFR (African America 41 (>=60); Estimated GFR (Non-African Ame 34 (>=60); Glucose 93 mg/dL (74-106); Potassium 5.3 mmol/L (3.5-5.1); Sodium 136 mmol/L (136-145)
== END 2024-01-26 15:26 | disposition home or self-care (01) ==
LOC: LAB 15:26
PROVIDERS: PCP Internal Medicine; Visit Provider Nurse Practitioner
DX: I50.22 Chronic systolic (congestive) heart failure (principal)
CPT/HCPCS: 36415; 80048

== ENCOUNTER 2024-01-30 07:38 | Outpatient (RCR) | payer MEDICARE, OTHER, SELFPAY | END 2024-02-25 23:59 | disposition home or self-care (01) | LOC: INF 07:38 | PROVIDERS: PCP Internal Medicine; Visit Provider Internal Medicine Hematology & Oncology | DX: D64.9 Anemia, unspecified (principal); D69.6 Thrombocytopenia, unspecified; Z95.0 Presence of cardiac pacemaker; Z90.49 Acquired absence of other specified parts of digestive tract; I11.0 Hypertensive heart disease with heart failure; I50.9 Heart failure, unspecified; E07.9 Disorder of thyroid, unspecified; R56.9 Unspecified convulsions; Z85.46 Personal history of malignant neoplasm of prostate | CPT/HCPCS: G0463 ==

== ENCOUNTER 2024-02-11 16:56 | Inpatient (IN) | payer MEDICARE, OTHER, SELFPAY ==
[2024-02-11] VITALS (12 sets, daily range): BP systolic 113–131; BP diastolic 62–74; PULSE 70–84; RESP 22–28; TEMP 36.4; O2SAT 83–98; BMI 27.8; BMI 28.3
--- OUTSIDE RECORDS SUMMARY | 2024-02-11 17:05 | XMS_ITS | CCD ---
Author Name Unknown Address [address] [place] [address] Organization [facility] Care Team Providers Care Community Service Representative Name Role Phone TIMO FRANCIS Primary Care Physician [phone] MARYBETH STANLEY Attending Unavailable KENNETH, MARYBETH Trivedi Attending Unavailable KENNETH, MARYBETH Trivedi Attending Unavailable PENNY, DR MARRUFO Primary Care Unavailable NADERER, DR MDAISON Arriaza Admitting Unavailable NADERER, DR MADISON Arriaza Attending Unavailable ZIEBER, DR MILAGROS Scott Consulting Unavailable NADERER, DR MADISON Arriaza Consulting Unavailable PAY, DR PENNINGTON Consulting Unavailable KVNGJAMES ESCOBAR Consulting Unavailable BACHRACH, LINH Consulting Unavailable PENNY, [...] Unavailable MARIAN, DR ZACH Scott Consulting Unavailable AHDOOT, ANA Consulting Unavailable Timo Francis Unavailable EDDIE WEISS Attending Unavailable NAOMI GRIFFIN II Referring UnavailVENECIA Morton Attending Unavailable SAMSON MYLES Referring Unavailable MARGARITA HERNANDEZ Attending Unavailable JUAN LUIS CALVIN Attending Unavailable SAMSON MYLES Referring Unavailable Martha Meier Admitting Unavailable Martha Meier Attending Unavailable Timo Francis Primary Care Unavailable Medications Current Medications Medication Drug Class(es) Dates Sig (Normalized) Sig (Original) Ascorbic Acid (2 sources) Vitamin C Start: 02-14-2020 Vitamin C Daily, Refills(s) 0 Start Date: 02/14/20 Status: Ordered Ocuvite (2 sources) Vitamin C Start: 02-14-2020 Ocuvite Oral, Daily, Refill(s) 0 Start Date: 02/14/20 Status: Ordered aspirin 81 mg delayed release oral tablet (3 sources) Platelet Aggregation Inhibitor, Nonsteroidal Anti-inflammatory Drug Start: 01-16-2024 Aspirin (Adult Low Dose Aspirin) 81 mg tablet,delayed release (DR/EC) Active 81 MG PO Daily January 16, 2024 12:00am Start: 12-25-2019 aspirin 81 mg, Refills(s) 0 [...] a day for 30 days Oct, Active digoxin 0.125 mg oral tablet (19 sources) Cardiac Glycoside Start: 01-16-2024 take 0.125 mg by mouth once daily Digoxin Active 0.125 MG PO Daily January 16, 2024 12:00am Start: 01-01-2020 take 1 tablet by jon th once daily digoxin 125 mcg (0.125 mg) Tab 125 microgram = 1 tab(s), Oral, Daily Start Date: 01/01/20 Status: Ordered take 1 tablet by jon th once daily Digoxin 125 mcg TAKE 1 TABLET BY MOUTH DAILY Active DuoDERM CGF Extra Thin - (16 sources) DuoDERM CGF Extr a Thin - as directed Externally Active furosemide 40 mg oral tablet (19 sources) Loop Diuretic Start: 01-16-2024 take 40 mg by mouth once daily Furosemide Active 40 MG PO Daily January 16, 2024 12:00am Start: 12-30-2019 take 1 tablet by jon th once daily Lasix 40 mg Tab See Instructions, tab(s) mg Oral Daily, Refills(s) 0 Start Date: 12/30/19 Status: Ordered Hydrocolloid Dressing (1 source) Start: 01-16-2024 Hydrocolloid Dressing Active EACH TOPICAL January 16, 2024 12:00am levothyroxine sodium 0.1 mg oral capsule (1 source) l-Thyroxine Start: 01-16-2024 take 100 ug by mouth once daily Levothyroxine Active 100 MCG PO Daily January 16, 2024 12:00am liothyronine sodium 0.005 mg oral tablet (1 source) l-Triiodothyronine Start: 01-16-2024 take 5 ug by mouth once daily Liothyronine Active 5 MCG PO Daily January 16, 2024 12:00am lisinopril 2.5 mg oral tablet (12 sources) Angiotensin Converting Enzyme Inhibitor Start: 01-16-2024 Lisinopril Active 2.5 MG PO Daily January 16, 2024 12:00am only take is systolic is above 95 Start: 12-25-2019 take 2.5 mg by mouth once geraldine y lisinopril 2.5 mg, Oral, Daily, Refills(s) 0 Start Date: 12/25/19 Status: Ordered Low-Dose Aspirin (16 sources) Low-Dose Aspirin Active melatonin 5 mg oral tablet (16 sources) take 1 tablet by mouth every twenty-four hours Melatonin 5 MG 1 tablet in the evening Orally Once a day Active melatonin 5 mg / vitamin b6 1 mg oral tablet (1 source) Start: 01-16-2024 take 1 tablet by mouth once daily Melatonin-Pyridoxine (Vit B6) Active 1 TAB PO Daily January 16, 2024 12:00am 24 hr metoprolol succinate 25 mg extended release oral capsule (19 sources) beta-Adrenergic Tang Start: 01-16-2024 take 25 mg by mouth once daily Metoprolol Succinate Active 25 MG PO Daily January 16, 2024 12:00am Start: 11-22-2023 take 1 capsule by mo [facility] once daily Metoprolol Succinate 50 MG 1 capsule Orally Once a day Oct, Active Start: 12-25-2019 take 1 mg by mouth once daily metoprolol 25 mg ER Tab mg tab(s), Oral, Daily, Refills(s) 0 Start Date: 12/25/19 Status: Ordered take 1 tablet by jon in the morning, then take 1 tablet by mouth in the evening Metoprolol Tartrate 25 mg TAKE 1 & 1/2 (ONE AND ONE-HALF) TABLETS BY MOUTH IN THE MORNING then TAKE 1 TABLET BY MOUTH IN THE EVENING for 90 Active midodrine hydrochloride 10 mg oral tablet (1 source) alpha-Adrenergic Agonist Start: 01-16-2024 take 1 dose by mouth once daily at bedtime Midodrine Active 10 MG PO Three times daily January 16, 2024 12:00am do not give last dose of day after 6PM or within 4 hrs of bedtime 24 hr oxybutynin chloride 5 mg extended release oral tablet (19 sources) Cholinergic Muscarinic Antagonist Start: 01-16-2024 take 5 mg by mouth once daily Oxybutynin Chloride Active 5 MG PO Daily January 16, 2024 12:00am Start: 03-16-2022 take 1 tablet by jon th once daily oxybutynin 5 mg ER Tab 5 mg = 1 tab(s), Oral, Daily, # 90 tab(s), Refills(s) 3, Pharmacy: [id number], 183, cm, 09/21/22 12:19:00 EDT, Height/Length Dosing, 99.3, kg, 09/21/22 12:19:00 EDT, Weight Dosing Start Date: 09/21/22 Status: Ordered potassium chloride 20 meq powder for oral solution (12 sources) take 1 dose by mouth once daily at mealtime Potassium Chloride 20 MEQ 1 packet with food Orally Once a day Active Vitamin B Complex oral capsule (2 sources) Start: 02-14-2020 Vitamin B Complex oral capsule Oral, Daily, Refill(s) 0 Start Date: 02/14/20 Status: Ordered Problems Problem Classification Problem Date [...] sources) Atrial fibrillation; Translations: [Paroxysmal atrial fibrillation] Onset: 11-29-2023 01-01-2020 Chronic Chronic kidney disease (7 sources) Chronic kidney disease stage 3B ; Translations: [Stage 3b chronic kidney disease] 01-16-2024 Chronic Chronic kidney disease (1 source) Chronic kidney disease; Translations: [CHRONIC KIDNEY DISEASE STAGE 3A] Onset: 08-10-2022 Chronic ulcer of skin (16 sources) Pressure ulcer of right buttock, stage 1; Translations: [Pressure injury of right buttock stage I (disorder)] Chronic Coagulation and hemorrhagic disorders (2 sources) Thrombocytopenic disorder; Translations: [Thrombocytopenia, unspecified] Onset: 02-07-2024 01-16-2024 Chronic Conduction disorders (20 sources) Second degree atrioventricular block; 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] Onset: 08-10-2022 01-01-2020 Chronic Congestive heart failure; nonhypertensive (20 sources) Chronic systolic heart failure; Translations: [Chronic systolic (congestive) heart failure] Onset: 11-29-2023 Chronic Deficiency and other anemia (1 source) Pancytopenia; Translations: [Other pancytopenia] 01-15-2024 Chronic Deficiency and other anemia (1 source) Other pancytopenia; Translations: [Other pancytopenia] 01-16-2024 Chronic Deficiency and other anemia (1 source) [...] Aortic valve regurgitation; Translations: [Mitral valve regurgitation] Onset: 04-17-2023 01-01-2020 Chronic Hyperplasia of prostate (11 sources) [...] 08-10-2022 Episodic Other aftercare (6 sources) Other intermediate designer (current) drug therapy; Translations: [OTH SNF CURRENT DRUG THERAPY] Onset: 07-08-2022 Episodic Other aftercare (1 source) 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; Translations: [SNF CURRENT USE OF ASPIRIN] Onset: 08-16-2022 Episodic Other and ill-defined heart disease (2 sources) Left ventricular hypertrophy 01-01-2020 Chronic Other diseases of veins and lymphatics (18 sources) Peripheral venous insufficiency; Translations: [Venous insufficiency (chronic) (peripheral)] 01-01-2020 Episodic Other diseases of veins and lymphatics (6 sources) Venous insufficiency (chronic) (peripheral); Translations: [Venous (peripheral) insufficiency, unspecified] Episodic Other diseases of veins and lymphatics (1 source) Venous insufficiency of leg; Translations: [Venous insufficiency (chronic) (peripheral)] 01-15-2024 Episodic Other lower respiratory disease (1 source) Hypoxia; Translations: [Hypoxemia] 01-15-2024 Episodic Other lower respiratory disease (1 source) Hypoxemia; Translations: [Hypoxemia] 01-16-2024 Episodic Other male genital disorders (2 sources) [...] [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 disease] Onset: 04-17-2023 Chronic Superficial injury; contusion (2 sources) Abrasion, left knee, initial encounter; Translations: [Abrasion, right knee, initial encounter] Onset: 08-16-2022 Episodic Thyroid disorders (2 sources) Subclinical hypothyroidism; Translations: [Other specified hypothyroidism] 01-15-2024 Chronic Unclassified (2 sources) Drug therapy finding 04-13-2020 Unclassified (2 sources) Patient encounter status 01-01-2020 Unclassified (2 sources) Establish Care; Translations: [Establish Care] Onset: 04-17-2023 Urinary tract infections (3 sources) Urinary tract infectious disease; Translations: [Urinary tract infection, site not specified] Onset: 08-16-2022 02-14-2020 Episodic Viral infection (1 source) COVID-19; Translations: [COVID-19] Onset: 08-10-2022 Results Test Name Value Interpretation Reference Range Facility CT guided bone marrow bx/asp iron 02-07-2024 CT guided bone marrow bx/aspir [facility] [place] [address] CT Scan Report Signed Patient: Samson Kelley MR#: [id number] : 1935 Acct:[id number] Age/Sex: 88 / M ADM Date: 02/07/24 Loc: CT Room: Type: [facility] Attending Dr: Martha Meier MD Copies to: Martha Meier MD Ordering Provider: Martha Meier MD Date of Service: 02/07/24 CT/CT guided bone marrow bx/aspir: D64.9,D69.6 CT guided needle placement 02/07/2024 9:58 AM SIGNS AND SYMPTOMS: bone marrow biopsy INFORMED CONSENT: Reason for procedure was discussed with the patient. The procedure expectations risks benefits options and alternatives were discussed. All the questions were answered. The patient understood the results cannot be guaranteed. The procedure is indicated and risks were acceptable. Consent was obtained. PROCEDURE: Using CT imaging the left posterior iliac spine was visualized. The skin was marked over this location. Skin was prepped and draped in a sterile manner. 10 mL of lidocaine 2% without epinephrine used for local anesthesia. Using a 9 gauge arrow on control drill assisted biopsy device in the left posterior iliac spine was accessed. A total of 12 mL of bone marrow aspirate was obtained. A 2.5 cm 9 gauge core biopsy specimen was also obtained. The needle was removed and hemostasis was gained using manual pressure. A bandage was placed at the puncture site. The patient tolerated the procedure well. No immediate complications were detected. CT/CT guided bone marrow bx/aspir IMPRESSION: Successful CT-guided bone marrow aspiration and core needle biopsy, as above. Impression dictated by: Zach Ontiveros M.D.02/07/2024 2:21 PM Dictation Location: [place] [address] Transcribed By: [facility] 02/07/24 1421 Dictated By: Zach Ontiveros II, MD 02/07/24 1418 Signed By: 02/07/24 1421 Normal [facility] Coagulation Profileon 2023 aPTT Coag (Bld) [Time] 41.4 s High 25.1-36.5 [facility] Comment on above: Result Comment: A he matocrit value greater than 55% may lead to inaccurate results in coagulation testing. Patients having hematocrit values >55% require a special collection tube for coagulation studies. Please contact the laboratory at [phone] for redraw instructions. PERFORMED BY: [place] [id number] PATHOLOGIST ATOMIC PROCESS ENGINEER DILIA SUAZO M.D. Performed By: #### C BC, PP #### [address] INR Coag (PPP) [Relative time] 1.2 {INR} Normal [facility] Comment on above: Result Comment: INR Therapeutic Range A) Pre- and Peroperative OAT started two weeks before surgery. NOT HIP SURGERY: 1.5 - 2.5 HIP SURGERY: 2 - 3 B) Primary and secondary prevention of venous THROMBOSIS: 2 - 3 C) Active venous thrombosis, pulmonary embolism and prevention of recurrent venous thrombosis: 2 - 3 D) Prevention of arterial thromboembolism including patients with mechanical heart valves: 3 - 4.5 Performed By: #### C BC, PP #### [address] PT Coag (PPP) [Time] 13.2 s High 9.0-12.9 [facility] Comment on above: Result Comment: A he matocrit value greater than 55% may lead to inaccurate results in coagulation testing. Patients having hematocrit values >55% require a special collection tube for coagulation studies. Please contact the laboratory at [phone] for redraw instructions. Performed By: #### C BC, PP #### [address] Complete Blood Count Auto Di ffon 02-07-2024 Basophils (Bld) [#/Vol] 0.0 10*3/uL Normal 0.0-0.2 [facility] Comment on above: Result Comment: PERF ORMED BY: [place] [address] PATHOLOGIST ATOMIC PROCESS ENGINEER DILIA SUAZO M.D. Performed By: #### C BC, PP #### [address] Basophils/100 WBC (Bld) 0.9 % Normal . [facility] Comment on above: Performed By: #### C BC, PP #### [address] Eosinophils (Bld) [#/Vol] 0.1 10*3/uL Normal 0.0-0.45 [facility] Comment on above: Performed By: #### C BC, PP #### [address] Eosinophils/100 WBC (Bld) 1.8 % Normal . [facility] Comment on above: Performed By: #### C BC, PP #### [address] Erythrocyte distribution width (RBC) [Ratio] 16.5 % High 12.0-14.8 [facility] Comment on above: Performed By: #### C BC, PP #### [address] Hematocrit (Bld) [Volume fraction] 31.0 % Low 38.8-50.0 [facility] Comment on above: Performed By: #### C BC, PP #### [address] Hemoglobin (Bld) [Mass/Vol] 10.3 g/dL Low 13.0-17.0 [facility] Comment on above: Performed By: #### C BC, PP #### [address] Lymphocytes (Bld) [#/Vol] 0.6 10*3/uL Low 1.00-4.8 [facility] Comment on above: Performed By: #### C BC, PP #### [address] Lymphocytes/100 WBC (Bld) 13.7 % Normal . [facility] Comment on above: Performed By: #### C BC, PP #### [address] MCH (RBC) [Entitic mass] 34.5 pg Normal 27.5-35.2 [facility] Comment on above: Performed By: #### C BC, PP #### [address] MCV (RBC) [Entitic vol] 103.8 fL High 83.5-101 [facility] Comment on above: Performed By: #### C BC, PP #### [address] Mean Corpuscular HGB Conc 33.2 g/dL Normal 32.5-35.6 [facility] Comment on above: Performed By: #### C BC, PP #### [address] Monocytes (Bld) [#/Vol] 0.6 10*3/uL Normal 0.0-0.8 [facility] Comment on above: Performed By: #### C BC, PP #### [facility] [address] Monocytes/100 WBC (Bld) 14.1 % Normal . [facility] Comment on above: Performed By: #### C BC, PP #### [address] Neutrophils (Bld) [#/Vol] 3.1 10*3/uL Normal 1.8-7.7 [facility] Comment on above: Performed By: #### C BC, PP #### [address] Neutrophils/100 WBC (Bld) 69.5 % Normal . [facility] Comment on above: Performed By: #### C BC, PP #### [address] NRBC% 0.3 /100{WBC} Normal 0-0.5 [facility] Comment on above: Performed By: #### C BC, PP #### [address] Platelet mean volume (Bld) [Entitic vol] 9.2 fL Normal 6.6-10.1 [facility] Comment on above: Performed By: #### C BC, PP #### [place] [address] [place] Platelets (Bld) [#/Vol] 84 10*3/uL Low 150-450 [facility] Comment on above: Performed By: #### C BC, PP #### [place] [address] [place] RBC (Bld) [#/Vol] 2.99 10*6/uL Low 3.90-5.60 [facility] Comment on above: Performed By: #### C BC, PP #### [place] [address] [place] WBC (Bld) [#/Vol] 4.4 10*3/uL Normal 4.1-10.5 [facility] Comment on above: Performed By: #### C BC, PP #### [facility] [address] [place] [id number] [facility] 02-07-2024 L Specimen: Received: 02/07/24 Status: PRIYANKA Saravia Num: [id number] Spec Type: Bone Marro Subm Dr: Zach Ontiveros II, MD Tissues: A Bone Marrow Aspirate (Clot) (LT ILIAC CREST) B Bone Marrow Biopsy/Core (LT ILIAC CREST) Procedures: Peripheral Smr, Iron/3, HE/4, Gross/Micro L4/2, Bm Smear/2, CD138, CD20, CD3, Decalcification, Bone Marrow TP, GIEMSA STN/6 Age/ Patient Sex Location Account Attending Physician Samson Kelley 88/M CT [id number] Martha Meier MD SPEC NUM: RECD: 02/07/24 STATUS: PRIYANKA SARAVIA NUM: [id number] AURA: 02/07/[address]: Zach Ontiveros II, MD ENTERED: 02/07/[address]: SPEC TYPE: Bone Marro DEPT: BM ORDERED: Peripheral Smr, Iron/3, HE/4, Gross/Micro L4/2, Bm Smear/2, CD138, CD20, CD3, Decalcification, Bone Marrow TP, GIEMSA STN/6 ORDERED: Peripheral Smr, Iron/3, HE/4, Gross/Micro L4/2, Bm Smear/2, CD138, CD20, CD3, USS/14, Decalcification, Bone Marrow TP, GIEMSA STN/6 Pathological Diagnosis Bone marrow, core biopsy, clot section, aspirate smears and touch imprints: - Mildly hypercellular bone marrow (50% cellular) with erythroid hyperplasia (M:E 1.3) - No significant dyspoiesis is identified. - Normal iron stores with no ring sideroblasts. - Megakaryocytes are not atypical. - Blasts are not increased. Peripheral blood: - Macrocytic anemia - Thrombocytopenia Comment: Clinical summary: The patient is an 88-year-old man who had been informed of having anemia for many years however his levels have been trending down. He also has macrocytosis and thrombocytopenia of unclear etiology. His past medical history includes heart failure with fluid related dyspnea. He is on supplemental oxygen. He also has chronic kidney disease. His medications include midodrine and Lasix. A workup demonstrated normal iron saturation with an elevated ferritin, and elevated bilirubin was present. 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 A bone marrow biopsy is done for further evaluation. Specimen: [id number] Received: 02/07/24 Status: PRIYANKA Lopezcheryl Num: [id number] Spec Type: Bone Marro Subm Dr: Zach Ontiveros II, MD Tissues: A Bone Marrow Aspirate (Clot) (LT ILIAC CREST) B Bone Marrow Biopsy/Core (LT ILIAC CREST) Procedures: Peripheral Smr, Iron/3, HE/4, Gross/Micro L4/2, Bm Smear/2, CD138, CD20, CD3, Decalcification, Bone Marrow TP, GIEMSA STN/6 Patient: Samson Kelley [id number] (Continued) Specimen: [id number] Received: 02/07/24 (Continued) Pathological Diagnosis (Continued) Signed (signature on file) Lalita Lipscomb MD 02/09/24 1529 Specimen: [id number] Received: 02/07/24 Status: PRIAYNKA [place] Num: [id number] Spec Type: Bone Marro Subm Dr: Zach Ontiveros II, MD Tissues: A Bone Marrow Aspirate (Clot) (LT ILIAC CREST) B Bone Marrow Biopsy/Core (LT ILIAC CREST) Procedures: Peripheral Smr, Iron/3, HE/4, Gross/Micro L4/2, Bm Smear/2, CD138, CD20, CD3, Decalcification, Bone Marrow TP, GIEMSA STN/6 Patient: Samson Kelley [id number] (Continued) Specimen: [id number] Received: 02/07/24-1153 (Continued) Pathological Diagnosis (Continued) The bone marrow does not show features to suggest myelodysplastic syndrome morphologically. Dysplasia is not appreciated. Rarely, subtle features of dysplasia can be missed morphologially, Correlation with the pending FISH study for MDS and cytogenetics study is recommended. The marrow is mildly hypercellular due to mild erythroid hyperplasia. This is an appropriate response to anemia. The cause for the anemia is likely multifactorial. kidney disease, and chronic disease may be contributing to the anemia. Macrocytosis can be seen in hypothyroidism and can be a result of some medications. Nutritional deficiency such as folate deficiency should also be considered. Thrombocytopenia can be caused by some medications. Other considerations include autoimmune disease, consumption and destruction. Clinical correlation and correlation with pending ancillary studies is recommended. Clinical Information Thrombocytopenia, macrocytosis Gross Description A. Received in formalin labeled with the patient's name, date of and clot is a 1.4 x 1.0 x 0.2 cm portion o (more content not included)... [facility] 36on 02-01-2024 36 Regarding BMP from 01/26/2024: Venecia Pulido, JUAN FRANCISCO Hager, CARLIE Spencer, So Samson needs to see one of the attendings- mckay Ricardo (victor hugo) for his Pulm HTN, HFrEF, worsening renal function- Please send him to nephrology- unless he already sees one. Call him and have him stop lisinopril and make sure he reduced lasix back to once a day- I had increased him for his leg swelling. Thanks Spoke with patient and he took 2 lasix today but says he usually takes 1. I asked him to hold lisinopril for now. He does not see nephrology. I told him we could refer him to nephrology but he was very hesitant. I told him maybe he could discuss with Dr. Francis, since he wants Dr. Francis [place] . I told Samson I would fax this documentation to Dr. Francis. Scheduled him to see Dr. Orosco on 02/12/2024 at 10:15am. [facility] Orders Onlyon 01-31-2024 Orders Only [id number] Samson Kelley 1935 M Date Provider Department Center 01/31/[address] No family history on file Normal [facility] 37on 01-26-2024 37 May take lasix 1 tab daily and may increase to twice daily for 2-3 day,s weight gain, shortness of breath, or worsening leg swelling as needed Have blood drawn today to check kidney function and electrolytes. *Continue heart healthy diet and low sodium diet. *Monitor daily weights, fluid restriction 1.5-2Liters/day, lab work to check kidney/renal function and electrolytes *Call office for weight gain of 2 pounds in 1 day or 5 pounds in 1 week, increased leg swelling, shortness of breath or shortness of breath at night and having to sleep sitting up taller/more pillows than normal or in recliner. Normal [facility] Office Visiton 01-26-2024 Follow-up visit [id number] Samson Kelley 1935 M Date Provider Department Center 01/26/2024 VENECIA FRANKLIN WINNIE [facility] No family history on file Level of Service:01765 [place] OFFICE/OUTPATIENT ESTABLISHED MOD MDM 30 MIN Normal [facility] Basophils Auto (Bld) [#/Vol] on 01-12-2024 Basophils (Bld) [#/Vol] 0.0 10 3/uL 0.0-0.1 [facility] Basophils/100 WBC Auto (Bld) on 01-12-2024 Basophils/100 WBC (Bld) 0.2 % 0.2-2.0 [facility] Eosinophils/100 WBC Auto (Bl d)on 01-12-2024 Eosinophils/100 WBC (Bld) 1.2 % 0.9-7.0 [facility] Erythrocyte distribution wid th Auto (RBC) [Ratio]on 01-12-2024 Erythrocyte distribution width (RBC) [Ratio] 15.9 % 11.0-15.0 [facility] Estimated glomerular filtrat ion rate (GFR) non- Americanon 01-12-2024 GFR/1.73 sq M.predicted among non-blacks MDRD (S/P/Bld) [Vol rate/Area] 44 mL/min/{1.73_m2} >=60 [facility] Globulin Calc (S) [Mass/Vol] on 01-12-2024 Globulin (S) [Mass/Vol] 4.3 g/dL [facility] Hematocrit Auto (Bld) [Volum e fraction]on 01-12-2024 Hematocrit (Bld) [Volume fraction] 30.0 % 42.0-54.0 [facility] Hemoglobin [Mass/volume] in Bloodon 01-12-2024 Hemoglobin (Bld) [Mass/Vol] 9.5 g/dL 14.0-18.0 [facility] Laboratory - Chemistry and C hemistry - challengeon 01-12-2024 Albumin [Mass/Vol] 2.9 g/dL 3.4-5.0 [facility] ALP [Catalytic activity/Vol] 93 U/L 46-116 [facility] ALT [Catalytic activity/Vol] 17 U/L 16-63 [facility] AST [Catalytic activity/Vol] 11 U/L 15-37 [facility] Bilirubin [Mass/Vol] 1.9 mg/dL 0.2-1.0 [facility] Calcium [Mass/Vol] 9.0 mg/dL 8.5-10.1 [facility] Chloride [Moles/Vol] 106 mmol/L 98-107 [facility] CO2 [Moles/Vol] 28.1 mmol/L 21.0-32.0 [facility] Creatinine [Mass/Vol] 1.49 mg/dL 0.70-1.30 [facility] GFR/1.73 sq M.predicted MDRD (S/P/Bld) [Vol rate/Area] 54 mL/min/{1.73_m2} >=60 [facility] Glucose [Mass/Vol] 94 mg/dL 74-106 [facility] Natriuretic peptide B (Bld) [Mass/Vol] 4324.0 pg/mL <=1800.0 [facility] Comment on above: RESULTS CALLED TO SANJUANITA CORNELL RN @BY Radha Corea at 0645 Potassium [Moles/Vol] 4.2 mmol/L 3.5-5.1 [facility] Protein [Mass/Vol] 7.2 g/dL 6.4-8.2 [facility] Sodium [Moles/Vol] 141 mmol/L 136-145 [facility] Urea nitrogen [Mass/Vol] 52.0 mg/dL 7.0-18.0 [facility] Urea nitrogen/Creatinine [Mass ratio] 34.9 mg/mg [facility] Laboratory - Hematology and Cell countson 01-12-2024 Immature granulocytes/100 WBC (Bld) 0.2 % 0.0-0.5 [facility] Leukocytes [#/volume] correc ayan for nucleated erythrocytes in Blood by Automated counon 01-12-2024 WBC corrected for nucl RBC Auto (Bld) [#/Vol] 4.3 10 3/uL 4.0-11.0 [facility] Lymphocytes Auto (Bld) [#/Vo l]on 01-12-2024 Lymphocytes (Bld) [#/Vol] 0.9 10 3/uL 1.2-3.8 [facility] Lymphocytes/100 WBC Auto (Bl d)on 01-12-2024 Lymphocytes/100 WBC (Bld) 19.9 % 20.5-60.0 [facility] MCH Auto (RBC) [Entitic mass ]on 01-12-2024 MCH (RBC) [Entitic mass] 34.5 pg 25.9-34.0 [facility] MCHC Auto (RBC) [Mass/Vol]on 01-12-2024 MCHC (RBC) [Mass/Vol] 31.7 g/dL 29.9-35.2 [facility] MCV Auto (RBC) [Entitic vol] on 01-12-2024 MCV (RBC) [Entitic vol] 109.1 fL 80.0-94.0 [facility] Monocytes Auto (Bld) [#/Vol] on 01-12-2024 Monocytes (Bld) [#/Vol] 0.7 10 3/uL 0.3-0.8 [facility] Monocytes/100 WBC Auto (Bld) on 01-12-2024 Monocytes/100 WBC (Bld) 16.9 % 1.7-12.0 [facility] Neutrophils Auto (Bld) [#/Vo l]on 01-12-2024 Neutrophils (Bld) [#/Vol] 2.7 10 3/uL 1.4-6.5 [facility] Neutrophils/100 WBC Auto (Bl d)on 01-12-2024 Neutrophils/100 WBC (Bld) 61.6 % 43.0-75.0 [facility] No Panel Informationon 01-12 Digoxin Level 1.4 ng/mL 0.9-2.0 [facility] Eosinophils # (Auto) 0.1 10 3/uL 0.0-0.7 [facility] Immature Granulocyte # (Auto) 0.01 10 3/uL 0.00-0.03 [facility] Platelet mean volume Auto (B ld) [Entitic vol]on 01-12-2024 Platelet mean volume (Bld) [Entitic vol] 11.5 fL 9.5-13.5 [facility] Platelets Auto (Bld) [#/Vol] on 01-12-2024 Platelets (Bld) [#/Vol] 69 10 3/uL 150-450 [facility] RBC Auto (Bld) [#/Vol]on RBC (Bld) [#/Vol] 2.75 10 6/uL 4.70-6.10 [facility] Serum or plasma albumin/glob ulin mass ratioon 01-12-2024 Albumin/Globulin [Mass ratio] 0.7 {ratio} [facility] Serum or plasma anion gap de terminationon 01-12-2024 Anion gap [Moles/Vol] 11.1 [facility] Basophils Auto (Bld) [#/Vol] on 01-11-2024 Basophils (Bld) [#/Vol] 0.0 10 3/uL 0.0-0.1 [facility] Basophils/100 WBC Auto (Bld) on 01-11-2024 Basophils/100 WBC (Bld) 0.4 % 0.2-2.0 [facility] Eosinophils/100 WBC Auto (Bl d)on 01-11-2024 Eosinophils/100 WBC (Bld) 0.8 % 0.9-7.0 [facility] Erythrocyte distribution wid th Auto (RBC) [Ratio]on 01-11-2024 Erythrocyte distribution width (RBC) [Ratio] 16.2 % 11.0-15.0 [facility] Estimated glomerular filtrat ion rate (GFR) non- Americanon 01-11-2024 GFR/1.73 sq M.predicted among non-blacks MDRD (S/P/Bld) [Vol rate/Area] 40 mL/min/{1.73_m2} >=60 [facility] Globulin Calc (S) [Mass/Vol] on 01-11-2024 Globulin (S) [Mass/Vol] 4.7 g/dL [facility] Hematocrit Auto (Bld) [Volum e fraction]on 01-11-2024 Hematocrit (Bld) [Volume fraction] 32.4 % 42.0-54.0 [facility] Hemoglobin [Mass/volume] in Bloodon 01-11-2024 Hemoglobin (Bld) [Mass/Vol] 10.0 g/dL 14.0-18.0 [facility] Laboratory - Chemistry and C hemistry - challengeon 01-11-2024 Albumin [Mass/Vol] 3.0 g/dL 3.4-5.0 [facility] ALP [Catalytic activity/Vol] 95 U/L 46-116 [facility] ALT [Catalytic activity/Vol] 20 U/L 16-63 [facility] AST [Catalytic activity/Vol] 13 U/L 15-37 [facility] Bilirubin [Mass/Vol] 1.9 mg/dL 0.2-1.0 [facility] Calcium [Mass/Vol] 9.0 mg/dL 8.5-10.1 [facility] Chloride [Moles/Vol] 103 mmol/L 98-107 [facility] CO2 [Moles/Vol] 27.5 mmol/L 21.0-32.0 [facility] Creatinine [Mass/Vol] 1.64 mg/dL 0.70-1.30 [facility] GFR/1.73 sq M.predicted MDRD (S/P/Bld) [Vol rate/Area] 48 mL/min/{1.73_m2} >=60 [facility] Glucose [Mass/Vol] 90 mg/dL 74-106 [facility] Natriuretic peptide B (Bld) [Mass/Vol] 3351.0 pg/mL <=1800.0 [facility] Comment on above: RESULTS CALLED TO PATY PATTON RN @BY Radha Corea at 0640 Potassium [Moles/Vol] 4.2 mmol/L 3.5-5.1 [facility] Protein [Mass/Vol] 7.7 g/dL 6.4-8.2 [facility] Sodium [Moles/Vol] 141 mmol/L 136-145 [facility] Urea nitrogen [Mass/Vol] 54.0 mg/dL 7.0-18.0 [facility] Urea nitrogen/Creatinine [Mass ratio] 32.9 mg/mg [facility] Laboratory - Hematology and Cell countson 01-11-2024 Immature granulocytes/100 WBC (Bld) 0.2 % 0.0-0.5 [facility] Leukocytes [#/volume] correc aayn for nucleated erythrocytes in Blood by Automated counon 01-11-2024 WBC corrected for nucl RBC Auto (Bld) [#/Vol] 4.8 10 3/uL 4.0-11.0 [facility] Lymphocytes Auto (Bld) [#/Vo l]on 01-11-2024 Lymphocytes (Bld) [#/Vol] 0.9 10 3/uL 1.2-3.8 [facility] Lymphocytes/100 WBC Auto (Bl d)on 01-11-2024 Lymphocytes/100 WBC (Bld) 18.6 % 20.5-60.0 [facility] MCH Auto (RBC) [Entitic mass ]on 01-11-2024 MCH (RBC) [Entitic mass] 34.0 pg 25.9-34.0 [facility] MCHC Auto (RBC) [Mass/Vol]on 01-11-2024 MCHC (RBC) [Mass/Vol] 30.9 g/dL 29.9-35.2 [facility] MCV Auto (RBC) [Entitic vol] on 01-11-2024 MCV (RBC) [Entitic vol] 110.2 fL 80.0-94.0 [facility] Monocytes Auto (Bld) [#/Vol] on 01-11-2024 Monocytes (Bld) [#/Vol] 0.7 10 3/uL 0.3-0.8 [facility] Monocytes/100 WBC Auto (Bld) on 01-11-2024 Monocytes/100 WBC (Bld) 14.9 % 1.7-12.0 [facility] Neutrophils Auto (Bld) [#/Vo l]on 01-11-2024 Neutrophils (Bld) [#/Vol] 3.1 10 3/uL 1.4-6.5 [facility] Neutrophils/100 WBC Auto (Bl d)on 01-11-2024 Neutrophils/100 WBC (Bld) 65.1 % 43.0-75.0 [facility] No Panel Informationon 01-11 Digoxin Level 1.5 ng/mL 0.9-2.0 [facility] Eosinophils # (Auto) 0.0 10 3/uL 0.0-0.7 [facility] Immature Granulocyte # (Auto) 0.01 10 3/uL 0.00-0.03 [facility] Platelet mean volume Auto (B ld) [Entitic vol]on 01-11-2024 Platelet mean volume (Bld) [Entitic vol] 11.2 fL 9.5-13.5 [facility] Platelets Auto (Bld) [#/Vol] on 01-11-2024 Platelets (Bld) [#/Vol] 71 10 3/uL 150-450 [facility] RBC Auto (Bld) [#/Vol]on RBC (Bld) [#/Vol] 2.94 10 6/uL 4.70-6.10 [facility] Serum or plasma albumin/glob ulin mass ratioon 01-11-2024 Albumin/Globulin [Mass ratio] 0.6 {ratio} [facility] Serum or plasma anion gap de terminationon 01-11-2024 Anion gap [Moles/Vol] 14.7 mmol/L Fi [facility] Basophils Auto (Bld) [#/Vol] on 01-10-2024 Basophils (Bld) [#/Vol] 0.0 10 3/uL 0.0-0.1 [facility] Basophils/100 WBC Auto (Bld) on 01-10-2024 Basophils/100 WBC (Bld) 0.3 % 0.2-2.0 [facility] Eosinophils/100 WBC Auto (Bl d)on 01-10-2024 Eosinophils/100 WBC (Bld) 1.3 % 0.9-7.0 [facility] Erythrocyte distribution wid th Auto (RBC) [Ratio]on 01-10-2024 Erythrocyte distribution width (RBC) [Ratio] 16.1 % 11.0-15.0 [facility] Estimated glomerular filtrat ion rate (GFR) non- Americanon 01-10-2024 GFR/1.73 sq M.predicted among non-blacks MDRD (S/P/Bld) [Vol rate/Area] 39 mL/min/{1.73_m2} >=60 [facility] Globulin Calc (S) [Mass/Vol] on 01-10-2024 Globulin (S) [Mass/Vol] 4.0 g/dL [facility] Hematocrit Auto (Bld) [Volum e fraction]on 01-10-2024 Hematocrit (Bld) [Volume fraction] 30.6 % 42.0-54.0 [facility] Hemoglobin [Mass/volume] in Bloodon 01-10-2024 Hemoglobin (Bld) [Mass/Vol] 9.6 g/dL 14.0-18.0 [facility] Laboratory - Chemistry and C hemistry - challengeon 01-10-2024 Albumin [Mass/Vol] 2.8 g/dL 3.4-5.0 [facility] ALP [Catalytic activity/Vol] 90 U/L 46-116 [facility] ALT [Catalytic activity/Vol] 20 U/L 16-63 [facility] AST [Catalytic activity/Vol] 12 U/L 15-37 [facility] Bilirubin [Mass/Vol] 1.6 mg/dL 0.2-1.0 [facility] Calcium [Mass/Vol] 8.9 mg/dL 8.5-10.1 [facility] Chloride [Moles/Vol] 105 mmol/L 98-107 [facility] CO2 [Moles/Vol] 27.1 mmol/L 21.0-32.0 [facility] Creatinine [Mass/Vol] 1.65 mg/dL 0.70-1.30 [facility] GFR/1.73 sq M.predicted MDRD (S/P/Bld) [Vol rate/Area] 48 mL/min/{1.73_m2} >=60 [facility] Glucose [Mass/Vol] 91 mg/dL 74-106 [facility] Natriuretic peptide B (Bld) [Mass/Vol] 2269.0 pg/mL <=1800.0 [facility] Comment on above: RESULTS CALLED TO [Aristeo PERALTA/DORIAN]@BY Adeline Sam 0659 Potassium [Moles/Vol] 4.9 mmol/L 3.5-5.1 [facility] Protein [Mass/Vol] 6.8 g/dL 6.4-8.2 [facility] Sodium [Moles/Vol] 140 mmol/L 136-145 [facility] T4 [Mass/Vol] 5.20 ug/dL 4.50-12.10 [facility] Urea nitrogen [Mass/Vol] 63.0 mg/dL 7.0-18.0 [facility] Urea nitrogen/Creatinine [Mass ratio] 38.2 mg/mg [facility] Laboratory - Hematology and Cell countson 01-10-2024 Immature granulocytes/100 WBC (Bld) 0.3 % 0.0-0.5 [facility] Leukocytes [#/volume] correc ayan for nucleated erythrocytes in Blood by Automated counon 01-10-2024 WBC corrected for nucl RBC Auto (Bld) [#/Vol] 3.9 10 3/uL 4.0-11.0 [facility] Lymphocytes Auto (Bld) [#/Vo l]on 01-10-2024 Lymphocytes (Bld) [#/Vol] 0.9 10 3/uL 1.2-3.8 [facility] Lymphocytes/100 WBC Auto (Bl d)on 01-10-2024 Lymphocytes/100 WBC (Bld) 21.8 % 20.5-60.0 [facility] MCH Auto (RBC) [Entitic mass ]on 01-10-2024 MCH (RBC) [Entitic mass] 34.7 pg 25.9-34.0 [facility] MCHC Auto (RBC) [Mass/Vol]on 01-10-2024 MCHC (RBC) [Mass/Vol] 31.4 g/dL 29.9-35.2 [facility] MCV Auto (RBC) [Entitic vol] on 01-10-2024 MCV (RBC) [Entitic vol] 110.5 fL 80.0-94.0 [facility] Monocytes Auto (Bld) [#/Vol] on 01-10-2024 Monocytes (Bld) [#/Vol] 0.6 10 3/uL 0.3-0.8 [facility] Monocytes/100 WBC Auto (Bld) on 01-10-2024 Monocytes/100 WBC (Bld) 15.4 % 1.7-12.0 [facility] Neutrophils Auto (Bld) [#/Vo l]on 01-10-2024 Neutrophils (Bld) [#/Vol] 2.4 10 3/uL 1.4-6.5 [facility] Neutrophils/100 WBC Auto (Bl d)on 01-10-2024 Neutrophils/100 WBC (Bld) 60.9 % 43.0-75.0 [facility] No Panel Informationon 01-10 Digoxin Level 1.6 ng/mL 0.9-2.0 [facility] Eosinophils # (Auto) 0.1 10 3/uL 0.0-0.7 [facility] Free Triiodothyronine 1.89 pg/mL 2.18-3.98 [facility] Immature Granulocyte # (Auto) 0.01 10 3/uL 0.00-0.03 [facility] Platelet mean volume Auto (B ld) [Entitic vol]on 01-10-2024 Platelet mean volume (Bld) [Entitic vol] 11.8 fL 9.5-13.5 [facility] Platelets Auto (Bld) [#/Vol] on 01-10-2024 Platelets (Bld) [#/Vol] 66 10 3/uL 150-450 [facility] RBC Auto (Bld) [#/Vol]on RBC (Bld) [#/Vol] 2.77 10 6/uL 4.70-6.10 [facility] Serum or plasma albumin/glob ulin mass ratioon 01-10-2024 Albumin/Globulin [Mass ratio] 0.7 {ratio} [facility] Serum or plasma anion gap de terminationon 01-10-2024 Anion gap [Moles/Vol] 12.8 [facility] Basophils Auto (Bld) [#/Vol] on 01-09-2024 Basophils (Bld) [#/Vol] 0.0 10 3/uL 0.0-0.1 [facility] Basophils/100 WBC Auto (Bld) on 01-09-2024 Basophils/100 WBC (Bld) 0.3 % 0.2-2.0 [facility] Eosinophils/100 WBC Auto (Bl d)on 01-09-2024 Eosinophils/100 WBC (Bld) 1.5 % 0.9-7.0 [facility] Erythrocyte distribution wid th Auto (RBC) [Ratio]on 01-09-2024 Erythrocyte distribution width (RBC) [Ratio] 16.1 % 11.0-15.0 [facility] Estimated glomerular filtrat ion rate (GFR) non- Americanon 01-09-2024 GFR/1.73 sq M.predicted among non-blacks MDRD (S/P/Bld) [Vol rate/Area] 39 mL/min/{1.73_m2} >=60 [facility] Globulin Calc (S) [Mass/Vol] on 01-09-2024 Globulin (S) [Mass/Vol] 3.9 g/dL [facility] Hematocrit Auto (Bld) [Volum e fraction]on 01-09-2024 Hematocrit (Bld) [Volume fraction] 28.9 % 42.0-54.0 [facility] Hemoglobin [Mass/volume] in Bloodon 01-09-2024 Hemoglobin (Bld) [Mass/Vol] 9.0 g/dL 14.0-18.0 [facility] Laboratory - Chemistry and C hemistry - challengeon 01-09-2024 Albumin [Mass/Vol] 2.8 g/dL 3.4-5.0 [facility] ALP [Catalytic activity/Vol] 82 U/L 46-116 [facility] ALT [Catalytic activity/Vol] 20 U/L 16-63 [facility] AST [Catalytic activity/Vol] 12 U/L 15-37 [facility] Bilirubin [Mass/Vol] 1.3 mg/dL 0.2-1.0 [facility] Calcium [Mass/Vol] 8.7 mg/dL 8.5-10.1 [facility] Chloride [Moles/Vol] 104 mmol/L 98-107 [facility] CO2 [Moles/Vol] 28.1 mmol/L 21.0-32.0 [facility] Creatinine [Mass/Vol] 1.66 mg/dL 0.70-1.30 [facility] GFR/1.73 sq M.predicted MDRD (S/P/Bld) [Vol rate/Area] 48 mL/min/{1.73_m2} >=60 [facility] Glucose [Mass/Vol] 76 mg/dL 74-106 [facility] Natriuretic peptide B (Bld) [Mass/Vol] 2379.0 pg/mL <=1800.0 [facility] Comment on above: RESULTS CALLED TO SANJUANITA CANALES/RN@BY Adeline Sam 0632 Potassium [Moles/Vol] 4.7 mmol/L 3.5-5.1 [facility] Protein [Mass/Vol] 6.7 g/dL 6.4-8.2 [facility] Sodium [Moles/Vol] 139 mmol/L 136-145 [facility] Urea nitrogen [Mass/Vol] 69.0 mg/dL 7.0-18.0 [facility] Urea nitrogen/Creatinine [Mass ratio] 41.6 mg/mg [facility] Laboratory - Hematology and Cell countson 01-09-2024 Immature granulocytes/100 WBC (Bld) 0.3 % 0.0-0.5 [facility] Leukocytes [#/volume] correc ayan for nucleated erythrocytes in Blood by Automated counon 01-09-2024 WBC corrected for nucl RBC Auto (Bld) [#/Vol] 3.3 10 3/uL 4.0-11.0 [facility] Lymphocytes Auto (Bld) [#/Vo l]on 01-09-2024 Lymphocytes (Bld) [#/Vol] 0.7 10 3/uL 1.2-3.8 [facility] Lymphocytes/100 WBC Auto (Bl d)on 01-09-2024 Lymphocytes/100 WBC (Bld) 21.6 % 20.5-60.0 [facility] MCH Auto (RBC) [Entitic mass ]on 01-09-2024 MCH (RBC) [Entitic mass] 34.1 pg 25.9-34.0 [facility] MCHC Auto (RBC) [Mass/Vol]on 01-09-2024 MCHC (RBC) [Mass/Vol] 31.1 g/dL 29.9-35.2 [facility] MCV Auto (RBC) [Entitic vol] on 01-09-2024 MCV (RBC) [Entitic vol] 109.5 fL 80.0-94.0 [facility] Monocytes Auto (Bld) [#/Vol] on 01-09-2024 Monocytes (Bld) [#/Vol] 0.6 10 3/uL 0.3-0.8 [facility] Monocytes/100 WBC Auto (Bld) on 01-09-2024 Monocytes/100 WBC (Bld) 18.3 % 1.7-12.0 [facility] Neutrophils Auto (Bld) [#/Vo l]on 01-09-2024 Neutrophils (Bld) [#/Vol] 1.9 10 3/uL 1.4-6.5 [facility] Neutrophils/100 WBC Auto (Bl d)on 01-09-2024 Neutrophils/100 WBC (Bld) 58.0 % 43.0-75.0 [facility] No Panel Informationon 01-09 Eosinophils # (Auto) 0.1 10 3/uL 0.0-0.7 [facility] Immature Granulocyte # (Auto) 0.01 10 3/uL 0.00-0.03 [facility] Platelet mean volume Auto (B ld) [Entitic vol]on 01-09-2024 Platelet mean volume (Bld) [Entitic vol] 12.0 fL 9.5-13.5 [facility] Platelets Auto (Bld) [#/Vol] on 01-09-2024 Platelets (Bld) [#/Vol] 76 10 3/uL 150-450 [facility] RBC Auto (Bld) [#/Vol]on RBC (Bld) [#/Vol] 2.64 10 6/uL 4.70-6.10 [facility] Serum or plasma albumin/glob ulin mass ratioon 01-09-2024 Albumin/Globulin [Mass ratio] 0.7 {ratio} [facility] Serum or plasma anion gap de terminationon 01-09-2024 Anion gap [Moles/Vol] 11.6 mmol/L [facility] - Chemistry and C hemistry - challengeon 01-08-2024 Free T4 [Mass/Vol] 0.97 ng/dL 0.76-1.46 [facility] TSH Qn 17.442 m[IU]/L 0.358-3.740 [facility] Laboratory - Microbiology an d Antimicrobial susceptibilityon 01-08-2024 S. agalactiae Org specific cx Ql (Vag fld) Not detected NOT DETECTE [facility] No Panel Informationon 01-08 Troponin I High Sensitivity 40.0 pg/mL 4.0-76.1 [facility] Comment on above: CUT-OFF POINTS HAVE BEEN ESTABLISHED BASED ON THE FOURTHUNIVERSAL DEFINITION OF MYOCARDIAL INFARCTION. THE UPPERREFERENCE LIMIT (URL) OF TROPONIN, DEFINED THE 99THPERCENTILE OF cTnI DISTRIBUTION IN A REFERENCE POPULATION,HAS BEEN CONFIRMED THE DECISION THRESHOLD FOR MIDIAGNOSIS.99TH PERCENTILE = 76.2 PG/MLNOTE: HIGH-SENSITIVITY TROPONIN ASSAY IS NOT INTENDED TO BEUSED IN ISOLATION BUT SHOULD BE INTERPRETED IN CONJUNCTIONWITH OTHER DIAGNOSTIC AND CLINICAL INFORMATION. A.calcoaceticus-betsy kaycee cmplx PCR Not detected NOT DETECTE [facility] Bacteroides fragilis (PCR) Not detected NOT DETECTE [facility] Blood Culture Source Blood [facility] Brittany albicans (PCR) Not detected NOT DETECTE [facility] Brittany auris (PCR) Not detected NOT DETECTE [facility] Brittany glabrata (PCR) Not detected NOT DETECTE [facility] Brittany krusei (PCR) Not detected NOT DETECTE [facility] Brittany parapsilosis (PCR) Not detected NOT DETECTE [facility] Brittany tropicalis (PCR) Not detected NOT DETECTE [facility] Crypto neoformans/gattii (PCR)(LAB) Not detected NOT DETECTE [facility] CTX-M ESBL (PCR) NOT APPLICABLE NOT DETECTE [facility] Enterobacter cloacae complex (PCR) Not detected NOT DETECTE [facility] Enterobacterales (PCR) Not detected NOT DETECTE [facility] Enterococcus faecalis PCR Not detected NOT DETECTE [facility] Enterococcus faecium PCR Not detected NOT DETECTE [facility] Escherichia coli Result Not detected NOT DETECTE [facility] Haemophilus influenzae DNA Not detected NOT DETECTE [facility] IMP (blaIMP) Carbap Res Gene (PCR) NOT APPLICABLE NOT DETECTE [facility] Klebsiella aerogenes (PCR) Not detected NOT DETECTE [facility] Klebsiella oxytoca (PCR) Not detected NOT DETECTE [facility] Klebsiella pneumoniae group (PCR) Not detected NOT DETECTE [facility] KPC (blaKPC) Detection (PCR) NOT APPLICABLE NOT DETECTE [facility] Listeria monocytogenes (PCR) Not detected NOT DETECTE [facility] MCR-1 Resistance Gene NOT APPLICABLE NOT DETECT E [facility] mecA/C & MREJ Antimicrob Resist Gen NOT APPLICABLE NOT DETECTE [facility] mecA/C-Methicillin Resistance Gene NOT APPLICABLE NOT DETECTE [facility] NDM (blaNDM) Detection (PCR) NOT APPLICABLE NOT DETECTE [facility] Neisseria meningitidis (PCR) Not detected NOT DETECTE [facility] Proteus species (PCR) Not detected NOT DETECTE [facility] Pseudomonas aeruginosa (PCR) Not detected NOT DETECTE [facility] Salmonella spp. (PCR) Not detected NOT DETECTE [facility] Serratia marcescens (PCR) Not detected NOT DETECTE [facility] Staphylococcus aureus (PCR)(LAB) Not detected NOT DETECTE [facility] Staphylococcus epidermidis (PCR) Not detected NOT DETECTE [facility] Staphylococcus lugdunensis (TEM-PCR Not detected NOT DETECTE [facility] Staphylococcus species (PCR) Not detected NOT DETECTE [facility] Stenotroph. maltophilia (PCR) Not detected NOT DETECTE [facility] Streptococcus pneumoniae (PCR) Not detected NOT DETECTE [facility] Streptococcus pyogenes (PCR)(LAB) Not detected NOT DETECTE [facility] Streptococcus species (PCR) Not detected NOT DETECTE [facility] Syn OXA-48-like Carb Res Gene (PCR) NOT APPLICABLE NOT DETECTE [facility] Deion/B-Vancomycin Resistance Genes NOT APPLICABLE NOT DETECTE [facility] VIM (blaVIM) Carbap Res Gene (PCR) NOT APPLICABLE NOT DETECTE [facility] No Panel InformationOrdered By: Timo Francis on 01-08-2024 Blood Culture 2 [facility] Blood Culture 1 [facility] Office Visiton 01-01-2024 Follow-up visit [id number] Samson Kelley 1935 M Replaced By [facility] Provider Department Center 01/01/2024 Arielle6-MARGARITA HERNANDEZ [facility] No family history on file Level of Service:67217 [place] OFFICE/OUTPATIENT ESTABLISHED MOD MDM 30 MIN Normal [facility] Office Visiton 04-17-2023 Follow-up visit [id number] Samson Kelley 1935 M Replaced By [facility] Provider Department Center 04/17/2023 166-JUAN LUIS CALVIN [facility] No family history on file Level of Service:48713 [place] OFFICE/OUTPATIENT NEW MODERATE MDM 45-59 MINUTES Reason for Visit and Comments: Establish Care [42] Normal [facility] Ambulatory Visit Summaryon 1 Ambulatory Visit Summary SAMSON KELLEY :1935 Visit Date:09/21/2022 Ambulatory Visit Instructions Your Diagnosis Urge incontinence History of prostate cancer Tests Performed Urnls Dip Stick Auto w/o Microscopy POC 76706 Your Care Team Attending Physician - MARYBETH STANLEY PA-C Primary Care Physician - TIMO FRANCIS DO This Is Your Medications List oxybutynin [...] Schedule the Following Appointments Follow Up with KENNETH SHEPARD, LORNA MERCHANT When: Only if needed Where: [address] [place] [address] [phone] Medications What How Much When Instructions Unchanged oxybutynin (oxybutynin 5 mg ER Tab) 1 Tablets By Mouth Every day Pickup at [facility] Unchanged ascorbic acid (Vitamin C) Every [...] physician if questions or concerns Pharmacy Information [facility]: [address] [place] [id number] [phone] Test Results Urnls Dip Stick Auto w/o Microscopy POC 21505 (09/21/2022) Bilirubin Urine Dipstick - Negative Blood Urine Dipstick - Negative Glucose Urine Dipstick - Negative Ketones Urine Dipstick - Negative Leukocytes Urine Dipstick - Negative Nitrite Urine Dipstick - Negative Protein Urine Dipstick - Negative Specific [place] Urine Dipstick - 1.015 Urine Appearance Urine [...] of prostate cancer Hyperlipidemia 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 ? Are -[place]. ? Are obese. ? Have a family [...] during urination (more content not included)... Normal [facility] Ambulatory Visit Summary SAMSON KELLEY :1935 Visit Date:09/21/2022 Ambulatory Visit Instructions Your Diagnosis Urge incontinence History of prostate cancer Tests Performed Urnls Dip Stick Auto w/o Microscopy POC 85312 Your Care Team Attending Physician - MARYBETH STANLEY PA-C Primary Care Physician - TIMO FRANCIS DO This Is Your Medications List oxybutynin [...] the Following Appointments Follow Up with MARYBETH STANLEY PA-C, URL When: Only if needed Where: [address] [place] [address] [phone] Medications What How Much When Instructions Unchanged [...] Urnls Dip Stick Auto w/o Microscopy POC 58944 (09/21/2022) Bilirubin Urine Dipstick - Negative Blood Urine Dipstick - Negative Glucose Urine Dipstick - Negative Ketones Urine Dipstick - Negative Leukocytes Urine Dipstick - Negative Nitrite Urine Dipstick - Negative Protein Urine Dipstick - Negative Specific [place] Urine Dipstick - 1.015 Urine Appearance Urine [...] cancer Hyperlipidemia Hypertension 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 ? Are -[place]. ? Are obese. ? Have a family [...] upper thi (more content not included)... Normal [facility] Patient Educationon 09-21-20 Patient Education [...] Are older than age 65. ? Are -[place]. ? Are obese. ? Have a family [...] Follow these instructions at home: ? Take prkl-swi-grmodoi and prescription medicines only as told by [...] cancer specialis (more content not included)... Normal [facility] Urology Office/Clinic Noteon 09-21-2022 Urology [...] yr. Follow-up With When Contact Information KENNETH PA-MARYBETH Dent, URL Only if needed [address] [place] [address] [phone] Additional Instructions: Patient Education Prostate Cancer IRebecca personally scribed for Marybeth Stanley PA-C on 09/21/2022 12:37:29. . Documentation recorded by the scribfarooq Mares accurately reflects the services(s) I performed and decisions made by me. Authenticated by Marybeth Stanley PA-C on 09/21/2022 12:42:06. 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 Immunizations Vaccine Date Status Comments SARSCoV2 mRNA(tozinamer-valeria- sucros) vac 04/26/2022 Recorded SARS-CoV-2 (COVID-19) mRNA BNT-162b2 [...] 09/05/2016 Rec (more content not included)... Normal [facility] Comment on above: Result Comment: Elec tronically Signed By: KENNETH SHEPARD, MARYBETH Trivedi\.br\Date and Time Signed: 09/21/22 13:18 EDT CBC AUTO DIFFon 09-06-2022 BASO # 0.0 103/ul Normal 0.0-0.1 [facility] Comment on above: Performed By: #### C BC #### [facility] [address] [place] [address] Dr. Kirk García Basophils/100 WBC (Bld) 0.5 % Normal 0.2-2.0 [facility] Comment on above: Performed By: #### C BC #### [facility] [address] [place] [address] Dr. Kirk García EO # 0.1 103/ul Normal 0.0-0.7 [facility] Comment on above: Performed By: #### C BC #### [facility] [address] [place] [address] Dr. Kirk García Eosinophils/100 WBC (Bld) 1.2 % Normal 0.9-7.0 [facility] Comment on above: Performed By: #### C BC #### [facility] [address] [place] [address] Dr. Kirk García Erythrocyte distribution width (RBC) [Ratio] 14.2 % Normal 11.0-15.0 [facility] Comment on above: Performed By: #### C BC #### [facility] [address] [place] [address] Dr. Kirk García Hematocrit (Bld) [Volume fraction] 35.6 % Critically low 42.0-54.0 [facility] Comment on above: Performed By: #### C BC #### [facility] [address] [place] [address] Dr. Kirk García Hemoglobin (Bld) [Mass/Vol] 11.7 g/dL Critically low 14.0-18.0 [facility] Comment on above: Performed By: #### C BC #### [facility] [address] [place] [address] Dr. Kirk García IG # 0.04 10e3/ul Critically high 0.00-0.03 [facility] Comment on above: Performed By: #### C BC #### [facility] [address] [place] [address] Dr. Kirk García IG % 0.6 % Critically high 0.0-0.5 [facility] Comment on above: Performed By: #### C BC #### [facility] [address] [place] [address] Dr. Kirk García LYMPH # 1.7 103/ul Normal 1.2-3.8 [facility] Comment on above: Performed By: #### C BC #### [facility] [address] [place] [address] Dr. Kirk García Lymphocytes/100 WBC (Bld) 25.7 % Normal 20.5-60.0 [facility] Comment on above: Performed By: #### C BC #### [facility] [address] [place] [address] Dr. Kirk García MANUAL DIFF REQ NO Normal [facility] Comment on above: Performed By: #### C BC #### [facility] [address] [place] [address] Dr. Kirk García MCH (RBC) [Entitic mass] 34.1 pg Critically high 25.9-34.0 [facility] Comment on above: Performed By: #### C BC #### [facility] [address] [address] [address] Kirk García MCHC (RBC) [Mass/Vol] 32.9 g/dL Normal 29.9-35.2 [facility] Comment on above: Performed By: #### C BC #### [facility] [address] [place] [address] Dr. Kirk García MCV (RBC) [Entitic vol] 103.8 fL Critically high 80.0-94.0 [facility] Comment on above: Performed By: #### C BC #### [facility] [address] [place] [address] Dr. Kirk García MONO # 1.1 103/ul Critically high 0.3-0.8 [facility] Comment on above: Performed By: #### C BC #### [facility] [address] [place] [address] Dr. Kirk García Monocytes/100 WBC (Bld) 17.7 % Critically high 1.7-12.0 [facility] Comment on above: Performed By: #### C BC #### [facility] [address] [place] [address] Dr. Kirk García NEUT # 3.5 103/ul Normal 1.4-6.5 [facility] Comment on above: Performed By: #### C BC #### [facility] [address] [place] [address] Dr. Kirk García Neutrophils/100 WBC (Bld) 54.3 % Normal 43.0-75.0 [facility] Comment on above: Performed By: #### C BC #### [facility] [address] [place] [address] Dr. Kirk García Platelet mean volume (Bld) [Entitic vol] 10.1 fL Normal 9.5-13.5 [facility] Comment on above: Performed By: #### C BC #### [facility] [address] [place] [address] Dr. Kirk García PLT 153 103/ul Normal 150-450 [facility] Comment on above: Performed By: #### C BC #### [facility] [address] [address] [address] Kirk García RBC 3.43 106/ul Critically low 4.70-6.10 [facility] Comment on above: Performed By: #### C BC #### [facility] [address] [address] [address] Kirk García WBC 6.5 103/ul Normal 4.0-11.0 [facility] Comment on above: Performed By: #### C BC #### [facility] [address] [address] [address] Kirk García PROF CHEM 8 (BAS METB)on Anion gap [Moles/Vol] 10.8 mmol/L Normal [facility] Comment on above: Performed By: #### B MP #### [facility] [address] [place] [address] Dr. Kirk García Calcium [Mass/Vol] 9.2 mg/dL Normal 8.5-10.1 [facility] Comment on above: Performed By: #### B MP #### [facility] [address] [place] [address] Dr. Kirk García Chloride [Moles/Vol] 101 mmol/L Normal 98-107 [facility] Comment on above: Performed By: #### B MP #### [facility] [address] [address] [address] iKrk García CO2 [Moles/Vol] 30.9 mmol/L Normal 21.0-32.0 [facility] Comment on above: Performed By: #### B MP #### [facility] [address] [place] [address] Dr. Kirk García Creatinine [Mass/Vol] 1.54 mg/dL Critically high 0.70-1.30 [facility] Comment on above: Performed By: #### B MP #### [facility] [address] [place] [address] Dr. Kirk García EGFR-AF [place]IZ[place] 52 mL/min/1.73m2 Critically low >=60 [facility] Comment on above: Performed By: #### B MP #### [facility] [address] [address] [address] Kirk García EGFR-NON AF CITIZEN OF [place] 43 mL/min/1.73m2 Critically low >=60 [facility] Comment on above: Performed By: #### B MP #### [facility] [address] [address] [address] Kirk García Glucose [Mass/Vol] 106 mg/dL Normal 74-106 [facility] Comment on above: Performed By: #### B MP #### [facility] [address] [address] [address] Kirk García Potassium [Moles/Vol] 4.7 mmol/L Normal 3.5-5.1 [facility] Comment on above: Performed By: #### B MP #### [facility] [address] [address] [address] Kirk García Sodium [Moles/Vol] 138 mmol/L Normal 136-145 [facility] Comment on above: Performed By: #### B MP #### [facility] [address] [address] [address] Kirk García Urea nitrogen [Mass/Vol] 28.0 mg/dL Critically high 7.0-18.0 [facility] Comment on above: Performed By: #### B MP #### [facility] [address] [address] [address] Kirk García Urea nitrogen/Creatinine [Mass ratio] 18.2 mg/mg Normal [facility] Comment on above: Performed By: #### B MP #### [facility] [address] [address] [address] Kirk García CBC W MANUAL DIFFon 08-15-20 22 ATYPICAL LYMPH # 1.62 103/ul Normal [facility] Comment on above: Performed By: #### U MICRO, ERUR #### [facility] [address] [address] [address] Kirk García ATYPICAL LYMPH % 12 % Normal [facility] Comment on above: Performed By: #### U MICRO, ERUR #### [facility] [address] [place] [address] Dr. Kirk García BAND # 0.1 103/ul Normal 0.0-0.3 [facility] Comment on above: Performed By: #### U MICRO, ERUR #### [facility] [address] [place] [address] Dr. Kirk García BAND % 1 % Normal 0-5 [facility] Comment on above: Performed By: #### U MICRO, ERUR #### [facility] [address] [place] [address] Dr. Kirk García BASOM # 0.14 103/ul Critically high 0.00-0.10 [facility] Comment on above: Performed By: #### U MICRO, ERUR #### [facility] [address] [place] [address] Dr. Kirk García BASOM % 1.0 % Normal 0.2-2.0 [facility] Comment on above: Performed By: #### U MICRO, ERUR #### [facility] [address] [place] [address] Dr. Kirk García BLAST # Normal [facility] Comment on above: Performed By: #### U MICRO, ERUR #### [facility] [address] [place] [address] Dr. Kirk García BLAST % Normal [facility] Comment on above: Performed By: #### U MICRO, ERUR #### [facility] [address] [place] [address] Dr. Kirk García CORRECTED WBC Normal 4.0-11.0 [facility] Comment on above: Performed By: #### U MICRO, ERUR #### [facility] [address] [place] [address] Dr. Kirk García EOS # 0.14 103/ul Normal 0.00-0.70 [facility] Comment on above: Performed By: #### U MICRO, ERUR #### [facility] [address] [place] [address] Dr. Kirk García EOS% 1.0 % Normal 0.9-7.0 [facility] Comment on above: Performed By: #### U MICRO, ERUR #### [facility] [address] [address] [address] Kirk García HCT 40.7 % Critically low 42.0-54.0 [facility] Comment on above: Performed By: #### U MICRO, ERUR #### [facility] [address] [address] [address] Kirk García HGB 13.4 g/dl Critically low 14.0-18.0 [facility] Comment on above: Performed By: #### U MICRO, ERUR #### [facility] [address] [place] [address] Dr. Kirk García LYMPHM # 0.54 103/ul Critically low 1.20-3.80 [facility] Comment on above: Performed By: #### U MICRO, ERUR #### [facility] [address] [place] [address] Dr. Kirk García LYMPHM% 4.0 % Critically low 20.5-60.0 [facility] Comment on above: Performed By: #### U MICRO, ERUR #### [facility] [address] [place] [address] Dr. Kirk García MCH 34.2 pg Critically high 25.9-34.0 [facility] Comment on above: Performed By: #### U MICRO, ERUR #### [facility] [address] [place] [address] Dr. Kirk García MCHC 32.9 g/dl Normal 29.9-35.2 [facility] Comment on above: Performed By: #### U MICRO, ERUR #### [facility] [address] [address] [address] Kirk García MCV 103.8 fL Critically high 80.0-94.0 [facility] Comment on above: Performed By: #### U MICRO, ERUR #### [facility] [address] [address] [address] Kirk García METAMYELOCYTE # Normal [facility] Comment on above: Performed By: #### U MICRO, ERUR #### [facility] [address] [address] [address] Kirk García METAMYELOCYTE % Normal [facility] Comment on above: Performed By: #### U MICRO, ERUR #### [facility] [address] [address] [address] Kirk García MONOM# 1.08 103/ul Critically high 0.30-0.80 [facility] Comment on above: Performed By: #### U MICRO, ERUR #### [facility] [address] [address] [address] Kirk García MONOM% 8.0 % Normal 1.7-12.0 [facility] Comment on above: Performed By: #### U MICRO, ERUR #### [facility] [address] [place] [address] Dr. Kirk García MPV 10.7 fL Normal 9.5-13.5 [facility] Comment on above: Performed By: #### U MICRO, ERUR #### [facility] [address] [address] [address] Kirk García MYELOCYTE # Normal [facility] Comment on above: Performed By: #### U MICRO, ERUR #### [facility] [address] [address] [address] Kirk García MYELOCYTE % Normal [facility] Comment on above: Performed By: #### U MICRO, ERUR #### [facility] [address] [address] [address] Kirk García NRBC Normal [facility] Comment on above: Performed By: #### U MICRO, ERUR #### [facility] [address] [address] [address] Kirk García PLT 140 103/ul Critically low 150-450 [facility] Comment on above: Performed By: #### U MICRO, ERUR #### [facility] [address] [address] [address] Kirk García RBC 3.92 106/ul Critically low 4.70-6.10 [facility] Comment on above: Performed By: #### U MICRO, ERUR #### [facility] [address] [address] [address] Kirk García RDW 14.0 % Normal 11.0-15.0 [facility] Comment on above: Performed By: #### U MICRO, ERUR #### [facility] [address] [address] [address] Kirk García SEG # 9.86 103/ul Critically high 1.40-6.50 [facility] Comment on above: Performed By: #### U MICRO, ERUR #### [facility] [address] [address] [address] Kirk García SEG % 73.0 % Normal 43.0-75.0 [facility] Comment on above: Performed By: #### U MICRO, ERUR #### [facility] [address] [place] [address] Dr. Kirk García TOXIC GRANULATION 2+ Normal [facility] Comment on above: Performed By: #### U MICRO, ERUR #### [facility] [address] [address] [address] Kirk García WBC 13.5 103/ul Critically high 4.0-11.0 [facility] Comment on above: Performed By: #### U MICRO, ERUR #### [facility] [address] [address] [address] Kirk García PROF 14(COMP METB)on 022 Albumin [Mass/Vol] 3.0 g/dL Critically low 3.4-5.0 [facility] Comment on above: Performed By: #### C MP #### [facility] [address] [address] [address] Kirk García Albumin/Globulin [Mass ratio] 0.8 {ratio} Normal [facility] Comment on above: Performed By: #### C MP #### [facility] [address] [address] [address] Kirk García ALP [Catalytic activity/Vol] 81 U/L Normal 46-116 [facility] Comment on above: Performed By: #### C MP #### [facility] [address] [address] [address] Kirk García ALT [Catalytic activity/Vol] 50 U/L Normal 16-63 [facility] Comment on above: Performed By: #### C MP #### [facility] [address] [address] [address] Kirk García Anion gap [Moles/Vol] 8.2 mmol/L Normal [facility] Comment on above: Performed By: #### C MP #### [facility] [address] [address] [address] Kirk García AST [Catalytic activity/Vol] 14 U/L Critically low 15-37 [facility] Comment on above: Performed By: #### C MP #### [facility] [address] [address] [address] Kirk García Bilirubin [Mass/Vol] 0.9 mg/dL Normal 0.2-1.0 [facility] Comment on above: Performed By: #### C MP #### [facility] [address] [address] [address] Kirk García Calcium [Mass/Vol] 9.3 mg/dL Normal 8.5-10.1 [facility] Comment on above: Performed By: #### C MP #### [facility] [address] [place] [address] Dr. Kirk García Chloride [Moles/Vol] 100 mmol/L Normal 98-107 [facility] Comment on above: Performed By: #### C MP #### [facility] [address] [address] [address] Kirk García CO2 [Moles/Vol] 33.1 mmol/L Critically high 21.0-32.0 [facility] Comment on above: Performed By: #### C MP #### [facility] [address] [address] [address] Kirk García Creatinine [Mass/Vol] 1.56 mg/dL Critically high 0.70-1.30 [facility] Comment on above: Performed By: #### C MP #### [facility] [address] [address] [address] Kirk García EGFR-AF [place] 51 mL/min/1.73m2 Critically low >=60 [facility] Comment on above: Performed By: #### C MP #### [facility] [address] [address] [address] Kirk García EGFR-NON AF [place]IZ[place] OF [place] 42 mL/min/1.73m2 Critically low >=60 [facility] Comment on above: Performed By: #### C MP #### [facility] [address] [address] [address] Kirk Gracía Globulin (S) [Mass/Vol] 3.7 g/dL Normal [facility] Comment on above: Performed By: #### C MP #### [facility] [address] [address] [address] Kirk García Glucose [Mass/Vol] 107 mg/dL Critically high 74-106 [facility] Comment on above: Performed By: #### C MP #### [facility] [address] [address] [address] Kirk García Potassium [Moles/Vol] 5.3 mmol/L Critically high 3.5-5.1 [facility] Comment on above: Performed By: #### C MP #### [facility] [address] [address] [address] Kirk García Protein [Mass/Vol] 6.7 g/dL Normal 6.4-8.2 [facility] Comment on above: Performed By: #### C MP #### [facility] [address] [address] [address] Kirk García Sodium [Moles/Vol] 136 mmol/L Normal 136-145 [facility] Comment on above: Performed By: #### C MP #### [facility] [address] [address] [address] Kirk García Urea nitrogen [Mass/Vol] 50.0 mg/dL Critically high 7.0-18.0 [facility] Comment on above: Performed By: #### C MP #### [facility] [address] [address] [address] Kirk García Urea nitrogen/Creatinine [Mass ratio] 32.1 mg/mg Normal [facility] Comment on above: Performed By: #### C MP #### [facility] [address] [place] [address] Dr. Kirk García CULTURE URINEon 08-14-2022 CULTURE URINE Culture Observations: NO GROWTH. Normal [facility] Comment on above: Performed By: #### U MICRO, ERUR #### [facility] [address] [place] [address] Dr. Kirk García ER URINE PROFILEon Bilirubin Ql (U) Negative Normal NEGATIVE [facility] Comment on above: Performed By: #### U MICRO, ERUR #### [facility] [address] [place] [address] Dr. Kirk García Clarity (U) CLEAR Normal CLEAR [facility] Comment on above: Performed By: #### U MICRO, ERUR #### [facility] [address] [place] [address] Dr. Kirk García Color (U) ORANGE Abnormal YELLOW [facility] Comment on above: Performed By: #### U MICRO, ERUR #### [facility] [address] [place] [address] Dr. Kirk GRUBBS A micrscopic examination will be performed if indicated. Normal [facility] Comment on above: Performed By: #### U MICRO, ERUR #### [facility] [address] [address] [address] Kirk García Glucose Ql (U) Negative Normal NEGATIVE [facility] Comment on above: Performed By: #### U MICRO, ERUR #### [facility] [address] [place] [address] Dr. Kirk García Hemoglobin Ql (U) LARGE Abnormal NEGATIVE [facility] Comment on above: Performed By: #### U MICRO, ERUR #### [facility] [address] [place] [address] Dr. Kirk García Ketones Ql (U) TRACE Abnormal NEGATIVE [facility] Comment on above: Performed By: #### U MICRO, ERUR #### [facility] [address] [address] [address] Kirk García LEUKOCYTES MODERATE Abnormal NEGATIVE [facility] Comment on above: Performed By: #### U MICRO, ERUR #### [facility] [facility] [address] [address] [address] Kirk García Nitrite Ql (U) Negative Normal NEGATIVE [facility] Comment on above: Performed By: #### U MICRO, ERUR #### [facility] [address] [address] [address] Kirk García pH (U) 5.5 [pH] Normal 5-9 [facility] Comment on above: Performed By: #### U MICRO, ERUR #### [facility] [address] [place] [address] Dr. Kirk García Protein (U) [Mass/Vol] 100 mg/dL Abnormal NEGAT DANYELL/ TRACE [facility] Comment on above: Performed By: #### U MICRO, ERUR #### [facility] [address] [address] [address] Kirk García SPEC GRAVITY 1.025 Normal 1.005-<=1.02 5 [facility] Comment on above: Performed By: #### U MICRO, ERUR #### [facility] [address] [place] [address] Dr. Kirk García UR MICRO IND INDICATED Normal [facility] Comment on above: Performed By: #### U MICRO, ERUR #### [facility] [address] [address] [address] Kirk García Urobilinogen Qn (U) 1.0 {Ryan'U}/dL Normal 0.2 - 1. 0 [facility] Comment on above: Performed By: #### U MICRO, ERUR #### [facility] [address] [place] [address] Dr. Kirk García URINE MICROSCOPIC ONLYon BACTERIA SMALL Abnormal NONE SEEN [facility] Comment on above: Performed By: #### U MICRO, ERUR #### [facility] [address] [address] [address] Kirk García Bacteria identified Cx Nom (U) INDICATED Normal [facility] Comment on above: Performed By: #### U MICRO, ERUR #### [facility] [address] [place] [address] Dr. Kirk García CAST NONE SEEN Normal NONE SEEN [facility] Comment on above: Performed By: #### U MICRO, ERUR #### [facility] [address] [address] [address] Kirk García Crystals LM Nom (Urine sed) NONE SEEN Normal NONE SEEN [facility] Comment on above: Performed By: #### U MICRO, ERUR #### [facility] [address] [place] [address] Dr. Kirk García Epithelial cells LM Ql (Urine sed) RARE Normal NONE SEEN /RARE [facility] Comment on above: Performed By: #### U MICRO, ERUR #### [facility] [address] [place] [address] Dr. Kirk García MUCOUS NONE SEEN Normal NONE SEEN [facility] Comment on above: Performed By: #### U MICRO, ERUR #### [facility] [address] [place] [address] Dr. Kirk García RBC 75-100 Abnormal 0-2 [facility] Comment on above: Performed By: #### U MICRO, ERUR #### [facility] [address] [place] [address] Dr. Kirk García WBC 50-75 Abnormal NONE SEEN [facility] Comment on above: Performed By: #### U MICRO, ERUR #### [facility] [address] [place] [address] Dr. Kirk García XR KNEE WILBER 4V [...] ANA DALAL Date: 2022-08-14 21:09 Normal [facility] CBC W MANUAL DIFFon 08-04-20 22 ATYPICAL LYMPH # Normal The [facility] Comment on above: Performed By: #### C CHRISTOPHER #### [facility] [address] [place] [address] Dr. Kirk García ATYPICAL LYMPH % Normal The [facility] Comment on above: Performed By: #### C CHRISTOPHER #### [facility] [address] [place] [address] Dr. Kirk García BAND # 0.0 103/ul Normal 0.0-0.3 [facility] Comment on above: Performed By: #### C CHRISTOPHER #### [facility] [address] [place] [address] Dr. Krik García BAND % 1 % Normal 0-5 [facility] Comment on above: Performed By: #### C CHRISTOPHER #### [facility] [address] [place] [address] Dr. Kirk García BASOM # 0.00 103/ul Normal 0.00-0.10 [facility] Comment on above: Performed By: #### C CHRISTOPHER #### [facility] [address] [place] [address] Dr. Kirk García BASOM % 0.0 % Critically low 0.2-2.0 [facility] Comment on above: Performed By: #### C CHRISTOPHER #### [facility] [address] [place] [address] Dr. Kirk García BLAST # Normal [facility] Comment on above: Performed By: #### C CHRISTOPHER #### [facility] [address] [place] [address] Dr. Kirk García BLAST % Normal [facility] Comment on above: Performed By: #### C CHRISTOPHER #### [facility] [address] [place] [address] Dr. Kirk García CORRECTED WBC Normal 4.0-11.0 [facility] Comment on above: Performed By: #### C BCLEILA #### [facility] [address] [address] [address] Kirk García EOS # 0.00 103/ul Normal 0.00-0.70 [facility] Comment on above: Performed By: #### C CHRISTOPHER #### [facility] [address] [address] [address] Kirk García EOS% 0.0 % Critically low 0.9-7.0 [facility] Comment on above: Performed By: #### C CHRISTOPHER #### [facility] [address] [address] [address] Kirk García HCT 31.0 % Critically low 42.0-54.0 [facility] Comment on above: Performed By: #### C CHRISTOPHER #### [facility] [address] [address] [address] Kirk García HGB 10.5 g/dl Critically low 14.0-18.0 [facility] Comment on above: Performed By: #### C CHRISTOPHER #### [facility] [address] [address] [address] Kirk García LYMPHM # 0.31 103/ul Critically low 1.20-3.80 [facility] Comment on above: Performed By: #### C CHRISTOPHER #### [facility] [address] [address] [address] Kirk García LYMPHM% 11.0 % Critically low 20.5-60.0 [facility] Comment on above: Performed By: #### C CHRISTOPHER #### [facility] [address] [address] [address] Kirk García MCH 34.2 pg Critically high 25.9-34.0 [facility] Comment on above: Performed By: #### C CHRISTOPHER #### [facility] [address] [address] [address] Kirk García MCHC 33.9 g/dl Normal 29.9-35.2 [facility] Comment on above: Performed By: #### C CHRISTOPHER #### [facility] [address] [place] [address] Dr. Kirk García MCV 101.0 fL Critically high 80.0-94.0 [facility] Comment on above: Performed By: #### C CHRISTOPHER #### [facility] [address] [place] [address] Dr. Kirk García METAMYELOCYTE # 0.1 103/ul Normal [facility] Comment on above: Performed By: #### C CHRISTOPHER #### [facility] [address] [place] [address] Dr. Kirk García METAMYELOCYTE % 2 % Normal [facility] Comment on above: Performed By: #### C CHRISTOPHER #### [facility] [address] [place] [address] Dr. Kirk García MONOM# 0.03 103/ul Critically low 0.30-0.80 [facility] Comment on above: Performed By: #### C CHRISTOPHER #### [facility] [address] [place] [address] Dr. Kirk García MONOM% 1.0 % Critically low 1.7-12.0 [facility] Comment on above: Performed By: #### C CHRISTOPHER #### [facility] [address] [place] [address] Dr. Kirk García MPV 10.7 fL Normal 9.5-13.5 [facility] Comment on above: Performed By: #### C CHRISTOPHER #### [facility] [address] [place] [address] Dr. Kirk García MYELOCYTE # 0.0 103/ul Normal [facility] Comment on above: Performed By: #### C CHRISTOPHER #### [facility] [address] [place] [address] Dr. Kirk García MYELOCYTE % 1 % Normal [facility] Comment on above: Performed By: #### C CHRISTOPHER #### [facility] [address] [place] [address] Dr. Kirk García NRBC Normal [facility] Comment on above: Performed By: #### C CHRISTOPHER #### [facility] [address] [address] [address] Kirk García PLT 84 103/ul Critically low 150-450 [facility] Comment on above: Performed By: #### Jailene WHITE #### [facility] [address] [address] [address] Kirk García RBC 3.07 106/ul Critically low 4.70-6.10 [facility] Comment on above: Performed By: #### Jailene WHITE #### [facility] [address] [address] [address] Kirk García RDW 13.3 % Normal 11.0-15.0 [facility] Comment on above: Performed By: #### Jaielne WHITE #### [facility] [address] [address] [address] Kirk García SEG # 2.35 103/ul Normal 1.40-6.50 [facility] Comment on above: Performed By: #### Jailene WHITE #### [facility] [address] [address] [address] Kirk García SEG % 84.0 % Critically high 43.0-75.0 [facility] Comment on above: Performed By: #### Jailene WHITE #### [facility] [address] [address] [address] Kirk García WBC 2.8 103/ul Critically low 4.0-11.0 [facility] Comment on above: Performed By: #### Jailene WHITE #### [facility] [address] [place] [address] Dr. Kirk García PROF CHEM 8 (BAS METB)on Anion gap [Moles/Vol] 9.9 mmol/L Normal [facility] Comment on above: Performed By: #### U MICRO, ERUR #### [facility] [address] [address] [address] Kirk García Calcium [Mass/Vol] 7.4 mg/dL Critically low 8.5-10.1 Th [facility] Comment on above: Performed By: #### U MICRO, ERUR #### [facility] [address] [address] [address] Kirk García Chloride [Moles/Vol] 100 mmol/L Normal 98-107 [facility] Comment on above: Performed By: #### U MICRO, ERUR #### [facility] [address] [address] [address] Kirk García CO2 [Moles/Vol] 23.8 mmol/L Normal 21.0-32.0 [facility] Comment on above: Performed By: #### U MICRO, ERUR #### [facility] [address] [address] [address] Kirk García Creatinine [Mass/Vol] 1.43 mg/dL Critically high 0.70-1.30 [facility] Comment on above: Performed By: #### U MICRO, ERUR #### [facility] [address] [address] [address] Kirk García EGFR-AF [place] 57 mL/min/1.73m2 Critically low >=60 [facility] Comment on above: Performed By: #### U MICRO, ERUR #### [facility] [address] [address] [address] Kirk García EGFR-NON AF [place]IZ[place] 47 mL/min/1.73m2 Critically low >=60 [facility] Comment on above: Performed By: #### U MICRO, ERUR #### [facility] [address] [address] [address] Kirk García Glucose [Mass/Vol] 148 mg/dL Critically high 74-106 [facility] Comment on above: Performed By: #### U MICRO, ERUR #### [facility] [address] [address] [address] Kirk García Potassium [Moles/Vol] 4.7 mmol/L Normal 3.5-5.1 [facility] Comment on above: Performed By: #### U MICRO, ERUR #### [facility] [address] [address] [address] Kirk García Sodium [Moles/Vol] 129 mmol/L Critically low 136-145 Th [facility] Comment on above: Performed By: #### U MICRO, ERUR #### [facility] [address] [place] [address] Dr. Kirk García Urea nitrogen [Mass/Vol] 42.0 mg/dL Critically high 7.0-18.0 [facility] Comment on above: Performed By: #### U MICRO, ERUR #### [facility] [address] [place] [address] Dr. Kirk García Urea nitrogen/Creatinine [Mass ratio] 29.4 mg/mg Normal [facility] Comment on above: Performed By: #### U MICRO, ERUR #### [facility] [address] [place] [address] Dr. Kirk García CBC AUTO DIFFon 08-03-2022 BASO # 0.0 103/ul Normal 0.0-0.1 [facility] Comment on above: Performed By: #### C BC #### [facility] [address] [place] [address] Dr. Kirk García Basophils/100 WBC (Bld) 0.0 % Critically low 0.2-2.0 [facility] Comment on above: Performed By: #### C BC #### [facility] [address] [place] [address] Dr. Kirk García EO # 0.0 103/ul Normal 0.0-0.7 [facility] Comment on above: Performed By: #### C BC #### [facility] [address] [place] [address] Dr. Kirk García Eosinophils/100 WBC (Bld) 0.2 % Critically low 0.9-7.0 [facility] Comment on above: Performed By: #### C BC #### [facility] [address] [place] [address] Dr. Kirk García Erythrocyte distribution width (RBC) [Ratio] 13.7 % Normal 11.0-15.0 [facility] Comment on above: Performed By: #### C BC #### [facility] [address] [place] [address] Dr. Kirk García Hematocrit (Bld) [Volume fraction] 34.3 % Critically low 42.0-54.0 [facility] Comment on above: Performed By: #### C BC #### [facility] [address] [address] [address] Kirk García Hemoglobin (Bld) [Mass/Vol] 11.8 g/dL Critically low 14.0-18.0 [facility] Comment on above: Performed By: #### C BC #### [facility] [address] [address] [address] Kirk García IG # 0.02 10e3/ul Normal 0.00-0.03 [facility] Comment on above: Performed By: #### C BC #### [facility] [address] [place] [address] Dr. Krik García IG % 0.4 % Normal 0.0-0.5 [facility] Comment on above: Performed By: #### C BC #### [facility] [address] [place] [address] Dr. Kirk García LYMPH # 0.9 103/ul Critically low 1.2-3.8 [facility] Comment on above: Performed By: #### C BC #### [facility] [address] [place] [address] Dr. Kirk García Lymphocytes/100 WBC (Bld) 16.5 % Critically low 20.5-60.0 [facility] Comment on above: Performed By: #### C BC #### [facility] [address] [place] [address] Dr. Kirk García MANUAL DIFF REQ NO Normal [facility] Comment on above: Performed By: #### C BC #### [facility] [address] [place] [address] Dr. Kirk García MCH (RBC) [Entitic mass] 34.4 pg Critically high 25.9-34.0 [facility] Comment on above: Performed By: #### C BC #### [facility] [address] [place] [address] Dr. Kirk García MCHC (RBC) [Mass/Vol] 34.4 g/dL Normal 29.9-35.2 [facility] Comment on above: Performed By: #### C BC #### [facility] [address] [address] [address] Kirk García MCV (RBC) [Entitic vol] 100.0 fL Critically high 80.0-94.0 [facility] Comment on above: Performed By: #### C BC #### [facility] [address] [address] [address] Kirk García MONO # 1.2 103/ul Critically high 0.3-0.8 [facility] Comment on above: Performed By: #### C BC #### [facility] [address] [address] [address] Kirk García Monocytes/100 WBC (Bld) 22.3 % Critically high 1.7-12.0 [facility] Comment on above: Performed By: #### C BC #### [facility] [address] [address] [address] Kirk García NEUT # 3.4 103/ul Normal 1.4-6.5 [facility] Comment on above: Performed By: #### C BC #### [facility] [address] [address] [address] Kirk García Neutrophils/100 WBC (Bld) 60.6 % Normal 43.0-75.0 [facility] Comment on above: Performed By: #### C BC #### [facility] [address] [address] [address] Kirk García Platelet mean volume (Bld) [Entitic vol] 11.6 fL Normal 9.5-13.5 [facility] Comment on above: Performed By: #### C BC #### [facility] [address] [address] [address] Kirk García PLT 99 103/ul Critically low 150-450 [facility] Comment on above: Performed By: #### C BC #### [facility] [address] [address] [address] Kirk García RBC 3.43 106/ul Critically low 4.70-6.10 [facility] Comment on above: Performed By: #### C BC #### [facility] [address] [place] [address] Dr. Kirk García WBC 5.5 103/ul Normal 4.0-11.0 [facility] Comment on above: Performed By: #### C BC #### [facility] [address] [place] [address] Dr. Kirk García CULTURE BLOODon 08-03-2022 Microscopic examination of blood, culture Culture Observations: NO GROWTH AT 5 DAYS. Normal [facility] Comment on above: Performed By: #### U MICRO, ERUR #### [facility] [address] [place] [address] Dr. Kirk García Microscopic examination of blood, culture Culture Observations: NO GROWTH AT 5 DAYS. Normal [facility] Comment on above: Performed By: #### U MICRO, ERUR #### [facility] [address] [place] [address] Dr. Kirk García Covid-19 PCR (CVDTB)on SARS-CoV-2 (COVID-19) RNA SANAZ+probe Ql (Unsp spec) Detected Critically abnormal NOT DETECTED [facility] Comment on above: Result Comment: This test is not yet approved or cleared by the [place] FDA. When there are no FDA-approved or cleared tests available, and other criteria are met, FDA can make tests available under an emergency access mechanism called an Emergency Use Authorization (EUA). The EUA for this test is supported by the [place] of [employer] and Human Service's declaration that [...] used). Performed By: #### C VDTBH #### [facility] [address] [place] [address] Dr. Kirk García GROUP A STREP CULTUREon S. pyogenes Ag Ql (Unsp spec) Culture Observations: NEGATIVE FOR GROUP A STREPTOCOCCUS. Normal [facility] Comment on above: Performed By: #### U MICRO, ERUR #### [facility] [address] [address] [address] Kirk García PROF 14(COMP METB)on 022 Albumin [Mass/Vol] 3.0 g/dL Critically low 3.4-5.0 [facility] Comment on above: Performed By: #### C MP #### [facility] [address] [place] [address] Dr. Kirk García Albumin/Globulin [Mass ratio] 0.7 {ratio} Normal [facility] Comment on above: Performed By: #### C MP #### [facility] [address] [place] [address] Dr. Kirk García ALP [Catalytic activity/Vol] 76 U/L Normal 46-116 [facility] Comment on above: Performed By: #### C MP #### [facility] [address] [place] [address] Dr. Kirk García ALT [Catalytic activity/Vol] 27 U/L Normal 16-63 [facility] Comment on above: Performed By: #### C MP #### [facility] [address] [place] [address] Dr. Kirk García Anion gap [Moles/Vol] 8.9 mmol/L Normal [facility] Comment on above: Performed By: #### C MP #### [facility] [address] [place] [address] Dr. Kirk García AST [Catalytic activity/Vol] 17 U/L Normal 15-37 [facility] Comment on above: Performed By: #### C MP #### [facility] [address] [place] [address] Dr. Kirk García Bilirubin [Mass/Vol] 1.3 mg/dL Critically high 0.2-1.0 [facility] Comment on above: Performed By: #### C MP #### [facility] [address] [place] [address] Dr. Kirk García Calcium [Mass/Vol] 8.1 mg/dL Critically low 8.5-10.1 Th [facility] Comment on above: Performed By: #### C MP #### [facility] [address] [address] [address] Kirk García Chloride [Moles/Vol] 94 mmol/L Critically low 98-107 [facility] Comment on above: Performed By: #### C MP #### [facility] [address] [address] [address] Kirk García CO2 [Moles/Vol] 27.5 mmol/L Normal 21.0-32.0 [facility] Comment on above: Performed By: #### C MP #### [facility] [address] [address] [address] Kirk García Creatinine [Mass/Vol] 1.65 mg/dL Critically high 0.70-1.30 [facility] Comment on above: Performed By: #### C MP #### [facility] [address] [address] [address] Kirk García EGFR-AF [place] 48 mL/min/1.73m2 Critically low >=60 [facility] Comment on above: Performed By: #### C MP #### [facility] [address] [address] [address] Kirk García EGFR-NON AF [place]IZEN OF [place] 40 mL/min/1.73m2 Critically low >=60 [facility] Comment on above: Performed By: #### C MP #### [facility] [address] [address] [address] Kirk García Globulin (S) [Mass/Vol] 4.5 g/dL Normal [facility] Comment on above: Performed By: #### C MP #### [facility] [address] [address] [address] Kirk García Glucose [Mass/Vol] 118 mg/dL Critically high 74-106 T [facility] Comment on above: Performed By: #### C MP #### [facility] [address] [address] [address] Kirk García Potassium [Moles/Vol] 4.4 mmol/L Normal 3.5-5.1 [facility] Comment on above: Performed By: #### C MP #### [facility] [address] [place], [place] [address] Dr. Kirk García Protein [Mass/Vol] 7.5 g/dL Normal 6.4-8.2 [facility] Comment on above: Performed By: #### C MP #### [facility] [address] [place], [place] [address] Dr. Kirk García Sodium [Moles/Vol] 126 mmol/L Critically low 136-145 Th [facility] Comment on above: Performed By: #### C MP #### [facility] [address] [place], [place] [address] Dr. Kirk García Urea nitrogen [Mass/Vol] 36.0 mg/dL Critically high 7.0-18.0 [facility] Comment on above: Performed By: #### C MP #### [facility] [address] [address] [address] Kirk García Urea nitrogen/Creatinine [Mass ratio] 21.8 mg/mg Normal [facility] Comment on above: Performed By: #### C MP #### [facility] [address] [place], [place] [address] Dr. Kirk García STREPT SCREENon 08-03-2022 STREP SCREEN A Negative Normal NEGATIVE [facility] Comment on above: Performed By: #### U MICRO, ERUR #### [facility] [address] [place], [place] [address] Dr[address] Kirk García XR CHEST 1 Von 08-03-2022 XR CHEST 1 V EXAMINATION: XR CHEST 1 V HISTORY: COUGH COMPARISON: XR chest [...] MILAGROS REEDER Date: 2022-08-03 12:55 Normal [facility] CBC AUTO DIFFon 07-08-2022 BASO # 0.0 103/ul Normal 0.0-0.1 [facility] Comment on above: Performed By: #### C BC #### [facility] [address] [address] [address] Kirk García Basophils/100 WBC (Bld) 0.5 % Normal 0.2-2.0 [facility] Comment on above: Performed By: #### C BC #### [facility] [address] [address] [address] Kirk García EO # 0.1 103/ul Normal 0.0-0.7 [facility] Comment on above: Performed By: #### C BC #### [facility] [address] [place] [address] Dr. Kirk García Eosinophils/100 WBC (Bld) 1.4 % Normal 0.9-7.0 [facility] Comment on above: Performed By: #### C BC #### [facility] [address] [address] [address] Kirk García Erythrocyte distribution width (RBC) [Ratio] 13.4 % Normal 11.0-15.0 [facility] Comment on above: Performed By: #### C BC #### [facility] [address] [place] [address] Dr. Kirk García Hematocrit (Bld) [Volume fraction] 39.6 % Critically low 42.0-54.0 [facility] Comment on above: Performed By: #### C BC #### [facility] [address] [address] [address] Kirk García Hemoglobin (Bld) [Mass/Vol] 13.2 g/dL Critically low 14.0-18.0 [facility] Comment on above: Performed By: #### C BC #### [facility] [address] [place] [address] Dr. Kirk García IG # 0.02 10e3/ul Normal 0.00-0.03 [facility] Comment on above: Performed By: #### C BC #### [facility] [address] [place] [address] Dr. Kirk García IG % 0.3 % Normal 0.0-0.5 [facility] Comment on above: Performed By: #### C BC #### [facility] [address] [place] [address] Dr. Kirk García LYMPH # 1.7 103/ul Normal 1.2-3.8 [facility] Comment on above: Performed By: #### C BC #### [facility] [address] [place] [address] Dr. Kirk García Lymphocytes/100 WBC (Bld) 28.7 % Normal 20.5-60.0 [facility] Comment on above: Performed By: #### C BC #### [facility] [address] [place] [address] Dr. Kirk García MANUAL DIFF REQ NO Normal [facility] Comment on above: Performed By: #### C BC #### [facility] [address] [place] [address] Dr. Kirk García MCH (RBC) [Entitic mass] 34.4 pg Critically high 25.9-34.0 [facility] Comment on above: Performed By: #### C BC #### [facility] [address] [place] [address] Dr. Kirk García MCHC (RBC) [Mass/Vol] 33.3 g/dL Normal 29.9-35.2 [facility] Comment on above: Performed By: #### C BC #### [facility] [address] [place] [address] Dr. Kirk García MCV (RBC) [Entitic vol] 103.1 fL Critically high 80.0-94.0 [facility] Comment on above: Performed By: #### C BC #### [facility] [address] [place] [address] Dr. Kirk García MONO # 0.9 103/ul Critically high 0.3-0.8 [facility] Comment on above: Performed By: #### C BC #### [facility] [address] [place] [address] Dr. Kirk García Monocytes/100 WBC (Bld) 15.8 % Critically high 1.7-12.0 [facility] Comment on above: Performed By: #### C BC #### [facility] [address] [place] [address] Dr. Kirk García NEUT # 3.1 103/ul Normal 1.4-6.5 [facility] Comment on above: Performed By: #### C BC #### [facility] [address] [place] [address] Dr. Kirk García Neutrophils/100 WBC (Bld) 53.3 % Normal 43.0-75.0 [facility] Comment on above: Performed By: #### C BC #### [facility] [address] [place] [address] Dr. Kirk García Platelet mean volume (Bld) [Entitic vol] 10.6 fL Normal 9.5-13.5 [facility] Comment on above: Performed By: #### C BC #### [facility] [address] [place] [address] Dr. Kirk García PLT 147 103/ul Critically low 150-450 [facility] Comment on above: Performed By: #### C BC #### [facility] [address] [place] [address] Dr. Kirk García RBC 3.84 106/ul Critically low 4.70-6.10 [facility] Comment on above: Performed By: #### C BC #### [facility] [address] [place] [address] Dr. Kirk García WBC 5.9 103/ul Normal 4.0-11.0 [facility] Comment on above: Performed By: #### C BC #### [facility] [address] [place] [address] Dr. Kirk García DIGOXINon 07-08-2022 DIG 1.1 ng/mL Normal 0.9-2.0 [facility] Comment on above: Performed By: #### U MICRO, ERUR #### [facility] [address] [place] [address] Dr. Kirk García PROF CHEM 8 (BAS METB)on Anion gap [Moles/Vol] 13.6 mmol/L Normal Th [facility] Comment on above: Performed By: #### U MICRO, ERUR #### [facility] [address] [address] [address] Kirk García Calcium [Mass/Vol] 9.5 mg/dL Normal 8.5-10.1 [facility] Comment on above: Performed By: #### U MICRO, ERUR #### [facility] [address] [address] [address] Kirk García Chloride [Moles/Vol] 97 mmol/L Critically low 98-107 [facility] Comment on above: Performed By: #### U MICRO, ERUR #### [facility] [address] [address] [address] Kirk García CO2 [Moles/Vol] 28.8 mmol/L Normal 21.0-32.0 [facility] Comment on above: Performed By: #### U MICRO, ERUR #### [facility] [address] [address] [address] Kirk García Creatinine [Mass/Vol] 1.43 mg/dL Critically high 0.70-1.30 [facility] Comment on above: Performed By: #### U MICRO, ERUR #### [facility] [address] [address] [address] Kirk García EGFR-AF CITIZEN [place] 57 mL/min/1.73m2 Critically low >=60 [facility] Comment on above: Performed By: #### U MICRO, ERUR #### [facility] [address] [address] [address] Kirk García EGFR-NON AF CITIZEN OF [place] 47 mL/min/1.73m2 Critically low >=60 [facility] Comment on above: Performed By: #### U MICRO, ERUR #### [facility] [address] [address] [address] Kirk García Glucose [Mass/Vol] 99 mg/dL Normal 74-106 [facility] Comment on above: Performed By: #### U MICRO, ERUR #### [facility] [address] [address] [address] Kirk García Potassium [Moles/Vol] 4.4 mmol/L Normal 3.5-5.1 [facility] Comment on above: Performed By: #### U MICRO, ERUR #### [facility] [address] [address] [address] Kirk García Sodium [Moles/Vol] 135 mmol/L Critically low 136-145 Th [facility] Comment on above: Performed By: #### U MICRO, ERUR #### [facility] [address] [address] [address] Kirk García Urea nitrogen [Mass/Vol] 29.0 mg/dL Critically high 7.0-18.0 [facility] Comment on above: Performed By: #### U MICRO, ERUR #### [facility] [address] [address] [address] Kirk García Urea nitrogen/Creatinine [Mass ratio] 20.3 mg/mg Normal [facility] Comment on above: Performed By: #### U MICRO, ERUR #### [facility] [address] [place] [address] Dr. Kirk García Patient Educationon 03-16-20 Patient [...] Are older than age 65. ? Are -Niuean. ? Are obese. ? Have a family [...] Follow these instructions at home: ? Take bonq-ika-lexxisc and prescription medicines only as told by [...] cancer specialis (more content not included)... Normal [facility] Urology Office/Clinic Noteon 03-16-2022 Urology [...] with Lasix, but after talking with Dr. Francis he's been taking it around noon/early afternoon. [...] E&M of Est. Patient Moderate 30-39 Min 08956 Measure Post Void residual urine and/or bladder capacity by US- non-imaging 60107 Urnls Dip Stick Auto w/o Microscopy POC 31883 2. History of prostate cancer (Z85.46: Personal history of malignant neoplasm of prostate) s/p brachytherapy in 2004. PSA remained very low. pt decided to have PCP do annual monitoring when he saw PRW March 2021. Ordered: E&M of Est. Patient Moderate 30-39 Min 09519 Measure Post Void residual urine and/or bladder capacity by US- non-imaging 51438 Urnls Dip Stick Auto w/o Microscopy POC 55125 Orders: oxybutynin, 5 mg = 1 tab(s), Oral, Daily, # 90 tab(s), Refills(s) 3, Pharmacy: [id number], 183, cm, 03/16/22 9:10:00 EDT, Height/Length Dosing, 99.3, kg, 03/16/22 9:10:00 EDT, Weight Dosing Follow-up With When Contact Information KENNETH SHEPARD, MARYBETH Trivedi, URL Within 6 months [address] [facility] [place] [address] Business (1) Additional Instructions: Patient Education Prostate Cancer 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 Cholecystitis Gross hematuria History of prostate cancer Hyperlipidemia Hypertension FDC current use of antithrombotics/anti platelets Post-void dribbling Testicular mass Urge incontinence Urinary [...] in lifetime (more content not included)... Normal [facility] Comment on above: Result Comment: Elec krisally Signed By: MARYBETH STANLEY PA-C\Date and Time Signed: 03/16/22 09:55 EDT Patient [...] Are older than age 65. ? Are -[place]. ? Are obese. ? Have a family [...] Follow these instructions at home: ? Take egux-tly-btfkedm and prescription medicines only as told by [...] cancer specialis (more content not included)... Normal [facility] Urology Office/Clinic Noteon 01-06-2022 Urology [...] worsen Ordered: Office Visit Level 4 Est 22658 2. History of prostate cancer (Z85.46: Personal history of malignant neoplasm of prostate) s/p brachytherapy in 2004. PSA remained very low. pt decided to have PCP do annual monitoring when he saw PRW at last visit March 2021. Ordered: Office Visit Level 4 Est 66243 Orders: Urnls Dip Stick Auto w/o Microscopy POC 46472 Total time spent reviewing previous notes/results/cadence specialists al documents, preparing the chart, conducting the encounter with the patient and family, ordering tests/medications, and documenting the encounter was 40 minutes. 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 Normal [facility] Comment on above: Result Comment: Elec tronically Signed By: MARYBETH STANLEY PA-C.lisa\Date and Time Signed: 01/06/22 16:55 EST Leora 07-29-2021 MANOJ Telephone (Blackboard) SAMSON KELLEY ([id number]) 1935 M Date Time Provider Department 07/29/21 DALILA BALL During your visit today, we recorded the following information about you: Dalila Ball RN 07/29/2021 10:36 AM Signed Spoke with Samson, he is currently still at the hotel and is planning on going to the [facility]. We discussed pain control and did remind patient use of Aleve or Motrin in between narcotics as the narcotics can increase issues with constipation. We did discuss use of Miralax if no Bm by Monday and patients states AR will help him with that. Encouraged to keep up with water intake especially since no appetite today. 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 ANES POSTPROC EVALon 021 ANES POSTPROC EVAL HNO ID: [id number] Author: Ramiro Esquivel MD Service: Anesthesiology Author [...] SIGNATURE: Ramiro Esquivel MD PATIENT NAME: Samson Kelley DATE: July 28, 2021 TIME: 1:35 PM CSN: [id number] [facility] ANES PRE-OPon 07-28-2021 ANES PRE-OP HNO ID: [id number] Author: Ramiro Esquivel MD Service: Anesthesiology Author [...] 07/28/21 0954 SpO2 95 % 07/28/21 0954 Facility-Administere d Medications as of 07/28/2021 Medication Dose Route Frequency - lidocaine 10 mg/mL (1 %) 1-2 mg injection (XYLOCAINE) 0.1-0.2 mL INTRADERMAL PRN - lactated ringers iv infusion 5-30 mL/hr INTRAVENOUS CONTINUOUS - [START ON 07/29/2021] ampicillin-sulbactam iv piggyback 3 g in NaCl 0.9% 100 mL Vial-Bag (UNASYN) 3 g INTRAVENOUS Rotary Cutter Operator to OR - [COMPLETED] acetaminophen 1,000 mg [...] SIGNATURE: Ramiro Esquivel MD PATIENT NAME: Samson Kelley DATE: July 28, 2021 TIME: 10:17 AM CSN: [id number] [facility] HISTORY PHYSICALon HISTORY PHYSICAL HNO ID: [id number] Author: Jewel Cary III, MD Service: General [...] Jewel Cary III, MD PATIENT NAME: Samson Kelley DATE: July 28, 2021 TIME: 10:16 AM [facility] OPERATIVE NOon 07-28-2021 OPERATIVE NO HNO ID: [id number] Author: Jewel Cary III, MD Service: General Surgery Author Type: Physician Type: Operative Report Filed: 07/28/2021 11:24 AM Note Text: OPERATIVE REPORT LOG ID: [id number] SURGERY/PROCEDURE DATE: 07/28/2021 INCISION/PROCEDURE START TIME: 10:47 AM INCISION CLOSE/PROCEDURE END TIME: 11:24 AM SURGEON: Jewel Cary III, MD ?? ENTERPRISE APPLICATION ADMINISTRATOR: Monserrat Salazar PA-C? ? OPERATION: Laparoscopic cholecystectomy (08811). ? ANESTHESIA: GETA and 10 mL of 0.5% Marcaine ?? PREOPERATIVE DIAGNOSIS:?Symptomat ic cholelithiasis with chronic cholecystitis ? POSTOPERATIVE DIAGNOSIS: [...] Jewel Cary III, MD PATIENT NAME: Samson Kelley DATE: July 28, 2021 TIME: 11:22 AM Normal [facility] SURGICAL PATHOLOGYon 021 SURGICAL PATHOLOGY Specimen originated from [facility] Specimen #: [id number] Submitting Physician: JEWEL CARY MD FINAL DIAGNOSIS Gallbladder, cholecystectomy - Cholelithiasis with acute and chronic cholecystitis and adenomyomatous hyperplasia. Tyree Chao M.D. (Electronic Signature) SPECIMEN SUBMITTED A: GALLBLADDER CLINICAL DATA CALCULUS [...] The mucosa is walker-red, hyperemic, and granular. Blueprint Duplicator sections are submitted as follows: A1 cystic duct margin and wall, A2 fundus. SLE/ch 07/28/2021 Gross examination performed at [facility], [address] [place] [address] Date of Report: 07/29/2021 Date of Procedure: 07/28/2021 Date of Receipt: 07/28/2021 Submitted by: JEWEL CARY MD Location: [facility] Diagnostic interpretation performed at [facility], [facility] [address]. CLIA Number: [id number] Normal [facility] Comment on above: Performed By: #### S #### See report for performing lab information. HISTORY PHYSICALon HISTORY PHYSICAL HNO ID: [id number] Author: Denita Simmons PA-C Service: ? Author Type: Physician Record Searcher Type: HANDP Filed: 07/19/2021 4:18 PM Note Text: HISTORY AND PHYSICAL EXAMINATION SERVICE DATE: 07/19/2021 SERVICE TIME: 11:10 AM PRIMARY CARE PHYSICIAN: Timo Francis DO REASON FOR VISIT: Samson Kelley is a 85 year old male who [...] in November 2019. He was admitted to [facility] due to Yuni cystitis. Providers at [...] 20's - PACEMAKER 2006 - PACEMAKER 01/2021 [employer] placed - PAST SURGICAL HISTORY OF 11/27/2006 PPM - PROSTATE SURGERY HX 2006 seeds placed - REPAIR RETINAL DETACH, C [...] fevers. Neuro: No history of TIA's, stroke, RESIDENT ASSISTANT tumor, impaired sensorium, hemiplegia, paraplegia or quadraplegia. No neurological symptoms or problems. Respiratory: Negative for Asthma, Dyspnea, Tobacco Use, URI < 2 weeks +PND - can rarely trigger cough, but stable, no acute symptoms Cardiovascular: +Pacemaker ([employer] scien) - A-fib hx, CHB no symptoms +Heart failure - on digoxin, Lasix. Chronic lower extremity edema. +Valve history - s/p Mitral and tricuspid repair 2017 - Dr. Adrianna Geiger - Ra (more content not included)... Normal [facility] Krzysztof 07-13-2021 CNCO Letter Text Normal [facility] CNPNevin 07-13-2021 FEDERICON Telephone (GENSAV) SAMSON KELLEY ([id number]) 1935 M Date Time Provider Department 07/13/21 JEWEL CARY III During your visit today, we recorded the following information about you: Marybeth Georgi 07/13/2021 12:24 PM Signed Pt was seen by Dr. Cary. Pt has been recommended for lap rima w grams under general. Please advise if pt has Cardiac clearance and can stop ASA for 7 days prior to surgery date. Pt scheduled on 07-21-21 for surgery. Please notify general surgeons office by routing message back to Angel ROSARIO SHELF DRIER OPERATOR, prior to notifying the patient. Marybeth Georgi 07/13/2021 1:53 PM Signed Pt seeing Cardi Dr Adrianna Geiger @ [facility] 216 Will send clearance to this provider Cat Gibbs 07/15/2021 11:03 AM Signed Cari from [facility] Geiger's office called and asked to have clearance letter fax to [phone]. Thank you. Marybeth Georgi 07/15/2021 11:21 AM Signed Letter reprinted and faxed to Jacki office with confirmation received. Denita Simmons PA-C [...] Encounter Status:Closed by MARYBETH LAUREANO on 07/13/21 [facility] Leora 07-12-2021 CNPN Telephone (GENSAV) SAMSON KELLEY ([id number]) 1935 M Date Time Provider Department 07/12/21 JEWEL CARY III GENSAV During your visit today, we recorded the following information about you: Marybeth Laureano 07/13/2021 2:08 PM Addendum Cur received Pt needs cardiac clearance Dr Kody Lynn Tele enct sent Spoke w pt he now sees Dr Adrianna Geiger at [facility]. Letter electronically sent. Marybeth Laureano 07/13/2021 3:25 PM Signed electronic faxed failed printed and sent to verified fax number of [phone]. Confirmed received. Marybeth Godoyn 07/19/2021 3:02 PM Signed PACC received clearance [...] Encounter Status:Closed by MARYBETH LAUREANO on 07/19/21 [facility] HISTORY PHYSICALon HISTORY PHYSICAL HNO ID: [id number] Author: Jewel Cary III, MD Service: ? Author Type: Physician Type: HANDP Filed: 07/09/2021 1:32 PM Note Text: NEW VIRTUAL CONSULT I had a virtual consult with Mr. Kelley today. This consult was requested by Dr Timo Francis DO for an opinion regarding gallbladder problems , and my final recommendations will be communicated to the requesting health care provider by way of the shared medical record for internal providers or letter via the [employer] for external providers. HISTORY: He [...] by mouth three times daily. No current facility-administere d medications for this visit. ALLERGIES No Known [...] stored in (more content not included)... Normal [facility] OPERATIVE REPORTon OPERATIVE REPORT NAME: SAMSON KELLEY MR#: [id number] SURGEON: Adrianna Geiger MD DATE OF SURGERY: 02/01/2021 OPERATIVE REPORT PREOPERATIVE DIAGNOSIS: End of life pacemaker pulse generator. POSTOPERATIVE DIAGNOSIS: End of life pacemaker pulse generator. PROCEDURE: Change out of end of life pacemaker pulse generator. 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 The new pulse generator is a [employer] Accolade MRI safe pacemaker, model #L311 serial #[id number]. The pulse generator was attached to the [...] of the day today. ADRIANNA GEIGER MD Yossi/[facility]/[id number] E/S: Adrianna Geiger MD 02/08/21 0856 Electronically Signed [facility] PT NAME: SAMSON KELLEY MR#: [id number] [address] [place] [address] ACCT: [id number] : [birth year] OPERATIVE REPORT Normal [facility] SURGon 02-01-2021 SURG Normal [facility] Comment on above: Result Comment: RUN DATE: 02/02/21 [facility] LAB *LIVE* PAGE 1RUN TIME: 1351 Specimen InquiryRUN USER: Scryer Name: SAMSON KELLEY : [birth year] Sex:M Anais Dr: Adrianna Geiger [facility]#: [id number] Unit#: [id number] Status: [facility] Location: ANA MARIA [id number] Received: 02/01/21-1 Status: PRIYANKA Saravia#: [id number]#: [id number] Collected: 02/01/21-[address]: Adrianna Geiger MDTISSUES: A. EXPLANTED HARDWARE MICROSCOPIC EXAM: N/A DIAGNOSIS: EXPLANTED HARDWARE, REMOVAL: - PULSE GENERATOR (GROSS DIAGNOSIS ONLY) Signed Signature on File KT SCHAFER 02/02/21 [address] [facility] Name: SAMSON KELLEY [facility] Hosp Num: [id number] [facility] [employer] [facility] Age / Sex: 85/M [facility] Physician: [place] [address] [place], [place] [id number] Location: SAME DAY SURGERY END OF REPORT Performed By: #### P SURG ####Test performed at: [place] [address] Vital Signs Date Time Vital Sign Value Performing Clinician Facility 01-16-2024 11:34-0500 Body height 182.88 cm [facility] 01-16-2024 11:34-0500 Body mass index (BMI) [Ratio] 28.5 kg/m2 [facility] 01-16-2024 11:34-0500 Body weight 95.48 kg [facility] 01-16-2024 11:34-0500 Diastolic blood pressure 62 mm[Hg] [facility] 01-16-2024 11:34-0500 Heart rate 82 /min [facility] 01-16-2024 11:34-0500 Respiratory rate 20 /min [facility] 01-16-2024 11:34-0500 Systolic blood pressure 102 mm[Hg] [facility] 12-08-2023 11:30-0500 Body height 182.88 cm [facility] 12-08-2023 11:30-0500 Body weight 94.16 kg [facility] 12-08-2023 11:30-0500 Diastolic blood pressure 74 mm[Hg] [facility] 12-08-2023 11:30-0500 Systolic blood pressure 115 mm[Hg] [facility] 11-22-2023 10:00-0500 Body height 182.88 cm Timo Ball Other [facility] 11-22-2023 10:00-0500 Body mass index (BMI) [Ratio] 28.67 kg/m2 Timo Ball Other [employer] Other 11-22-2023 10:00-0500 Body weight 95.89 kg Timo Ball Other [facility] [employer] Other 11-22-2023 10:00-0500 Body weight 95.88 kg [facility] 11-22-2023 10:00-0500 Diastolic blood pressure 64 mm[Hg] Timo Ball Other [facility] 11-22-2023 10:00-0500 Respiratory rate 16 /min Timo Ball Other [facility] [employer] Other 11-22-2023 10:00-0500 SaO2% (BldA) [Mass fraction] 95 % Timo Ball Other [employer] Other 11-22-2023 10:00-0500 Systolic blood pressure 102 mm[Hg] Timo Ball Other [facility] 10-03-2023 13:45-0500 Body height 182.88 cm Timo Ball Other [employer] Other 10-03-2023 13:45-0500 Body mass index (BMI) [Ratio] 29.02 kg/m2 Timo Ball Other [employer] Other 10-03-2023 13:45-0500 Body weight 97.07 kg Timo Ball Other [employer] Other 10-03-2023 13:45-0500 Diastolic blood pressure 67 mm[Hg] Timo Ball Other [employer] Other 10-03-2023 13:45-0500 Respiratory rate 16 /min Timo Ball Other [employer] Other 10-03-2023 13:45-0500 Systolic blood pressure 106 mm[Hg] Timo Ball Other [employer] Other 09-29-2023 13:45-0400 Body height 182.88 cm Timo Ball Other [employer] Other 08-31-2023 11:00-0400 Body height 182.88 cm Timo Ball Other [employer] Other 08-31-2023 11:00-0400 Body mass index (BMI) [Ratio] 28.23 kg/m2 Timo Ball Other [employer] Other 08-31-2023 11:00-0400 Body weight 94.44 kg Timo Ball Other [employer] Other 08-31-2023 11:00-0400 Diastolic blood pressure 61 mm[Hg] Timo Ball Other [employer] Other 08-31-2023 11:00-0400 Respiratory rate 12 /min Timo Ball Other [employer] Other 08-31-2023 11:00-0400 Systolic blood pressure 105 mm[Hg] Timo Ball Other [employer] Other 05-26-2023 11:00-0400 Body height 182.88 cm Timo Ball Other [employer] Other 05-26-2023 11:00-0400 Body mass index (BMI) [Ratio] 28.69 kg/m2 Timo Ball Other [employer] Other 05-26-2023 11:00-0400 Body weight 95.98 kg Timo Ball Other [employer] Other 05-26-2023 11:00-0400 Diastolic blood pressure 66 mm[Hg] Timo Ball Other [employer] Other 05-26-2023 11:00-0400 Respiratory rate 16 /min Timo Ball Other [employer] Other 05-26-2023 11:00-0400 Systolic blood pressure 116 mm[Hg] Timo Ball Other [employer] Other 01-20-2023 11:00-0500 Body height 182.88 cm Timo Ball Other [employer] Other 01-20-2023 11:00-0500 Body mass index (BMI) [Ratio] 28.53 kg/m2 Timo Ball Other [employer] Other 01-20-2023 11:00-0500 Body weight 95.44 kg Timo Ball Other [employer] Other 01-20-2023 11:00-0500 Diastolic blood pressure 64 mm[Hg] Timo Ball Other [employer] Other 01-20-2023 11:00-0500 Respiratory rate 16 /min Timo Ball Other [employer] Other 01-20-2023 11:00-0500 Systolic blood pressure 102 mm[Hg] Timo Ball Other [employer] Other 09-21-2022 12:18-0400 Blood Pressure Location MARYBETH KENNETH [facility] 09-21-2022 12:18-0400 Diastolic blood pressure 58 mm[Hg] MARYBETH KENNETH [facility] 09-21-2022 12:18-0400 Heart rate 80 /min MARYBETH KENNETH [facility] 09-21-2022 12:18-0400 Respiratory rate 16 /min MARYBETH STANLEY [facility] 09-21-2022 12:18-0400 Systolic blood pressure 111 mm[Hg] MARYBETH STANLEY [facility] 03-16-2022 08:49-0400 Blood Pressure Location MARYBETH STANLEY [facility] 03-16-2022 08:49-0400 Diastolic blood pressure 65 mm[Hg] MARYBETH STANLEY [facility] 03-16-2022 08:49-0400 Heart rate 75 /min MARYBETH STANLEY [facility] 03-16-2022 08:49-0400 Systolic blood pressure 93 mm[Hg] MARYBETH STANLEY [facility] Encounters Encounter Date Encounter Type Care Provider Facility Start: 02-07-2024 End: 02-07-2024 ambulatory Martha Renea Facility:[facility] Start: 01-26-2024 End: 01-26-2024 ambulatory [facility] Start: 01-16-2024 End: 01-16-2024 ambulatory [facility] Work Phone: Start: 01-16-2024 End: 01-16-2024 Patient encounter procedure [facility] Work Phone: Start: 01-12-2024 Non-patient / Non-visit [facility] Work Phone: Start: 01-11-2024 Non-patient / Non-visit [facility] [place] [facility] Work Phone: Start: 01-10-2024 Non-patient / Non-visit [facility] [place] [facility] Work Phone: Start: 01-09-2024 Non-patient / Non-visit [facility] [place] [facility] Work Phone: Start: 01-08-2024 Non-patient / Non-visit [facility] [place] [facility] Work Phone: Start: 01-01-2024 End: 01-01-2024 ambulatory [facility] [place] Start: 12-29-2023 End: 12-29-2023 ambulatory Timo Penny Other [employer] Other Start: 12-29-2023 Telephone encounter Timo Francis JOHNATHON [facility] Start: 12-26-2023 End: 12-26-2023 ambulatory EDDIE WEISS Not Available Start: 12-20-2023 End: 12-20-2023 ambulatory Timo Francis Other [employer] Other Start: 12-20-2023 Telephone encounter Timo Francis [facility] Start: 12-15-2023 End: 12-15-2023 ambulatory Timo Francis Other [employer] Other Start: 12-15-2023 Telephone encounter Timo Francis [facility] Start: 12-11-2023 End: 12-11-2023 ambulatory Timo Francis Other [employer] Other Start: 12-11-2023 Telephone encounter Timo DIEGO [facility] Start: 12-08-2023 End: 12-08-2023 Patient encounter procedure [facility] Work Phone: Start: 12-05-2023 End: 12-05-2023 ambulatory Timo Francis Other [employer] Other Start: 12-05-2023 Telephone encounter Timo Francis [facility] Start: 11-22-2023 End: 11-22-2023 ambulatory Tiom Francis Other [employer] Other Start: 11-22-2023 Telephone encounter Timo Francis [facility] Start: 11-22-2023 Transitional care carlie villasenor srvc 14 day discharge Timo Francis [facility] Start: 11-22-2023 End: 11-22-2023 Patient encounter procedure [facility] Work Phone: Start: 11-17-2023 End: 11-17-2023 ambulatory Timo Francis Other [employer] Other Start: 11-17-2023 Telephone encounter Timo Francis [facility] Start: 10-04-2023 End: 10-04-2023 ambulatory Timo Francis Other [employer] Other Start: 10-04-2023 Telephone encounter Timo Francis [facility] Start: 10-03-2023 End: 10-03-2023 ambulatory Timo Francis Other [employer] Other Start: 10-03-2023 Office outpatient vi sit 15 minutes Timo Francis [facility] Start: 09-29-2023 End: 09-29-2023 ambulatory Timo Francis Other [employer] Other Start: 09-29-2023 Nursing evaluation o f patient and report Timo Francis [facility] Start: 09-06-2023 End: 09-06-2023 ambulatory Timo Francis Other [employer] Other Start: 09-06-2023 Telephone encounter Timo Francis [facility] Start: 08-31-2023 End: 08-31-2023 ambulatory Timo Penny Other [employer] Other Start: 08-31-2023 Patient encounter procedure Timo Francis [facility] Start: 05-26-2023 End: 05-26-2023 ambulatory Timo Francis Other [employer] Other Start: 05-26-2023 Office outpatient vi sit 25 minutes Timo Francis [facility] Start: 05-02-2023 End: 05-02-2023 ambulatory SAMSON [facility] Start: 04-17-2023 End: 04-17-2023 ambulatory JUAN LUIS [facility] Start: 01-20-2023 End: 01-20-2023 ambulatory Timo Francis Other [employer] Other Start: 01-20-2023 Office outpatient vi sit 25 minutes Timo Francis [facility] Start: 09-21-2022 End: 09-22-2022 ambulatory MARYBETH STANLEY Facility:[facility] [place] Start: 09-21-2022 End: 09-21-2022 Patient encounter procedure MARYBETH STANLEY [facility] Start: 09-06-2022 End: 09-07-[address] TIMO FRANCIS Facility:[facility] Start: 08-14-2022 End: 08-15-[address] TIMO FRANCIS Facility:[facility] Start: 08-03-2022 End: 08-04-[address] TIMO FRANCIS Facility:[facility] Start: 07-08-2022 End: 07-09-[address] TIMO FRANCIS Facility:[facility] Start: 03-16-2022 End: 03-17-2022 ambulatory MARYBETH STANLEY Facility:[facility] [place] Start: 03-16-2022 End: 03-16-2022 Patient encounter procedure MARYBETH Farooq MOTARY [facility] Start: 01-06-2022 End: 01-07-2022 ambulatory MARYBETH STANLEY Facility:[facility] [place] Start: 01-05-2022 ambulatory MARYBETH KENNETH Facility :[facility] [place] Start: 12-07-2018 Patient encounter procedure Facility:[id number] Start: 12-06-2018 Patient encounter procedure Facility:[id number] Procedures Date Procedure Procedure Detail Performing Clinician Start: 01-08-2024 Blood Culture 1 Start: 01-08-2024 Blood Culture 2 Start: 07-08-[address] KUSH FRANCIS Comment on above: Performed By: #### U MICRO, ERUR #### [facility] [address] [address] [address] Kirk García Start: 07-28-2021 Cholecystectomy SHADIA STANLEY Start: 11-27-2006 Colonoscopy MARYBETH GRAVES Start: 11-27-2004 Implantation of radi oactive seed into prostate MARYBETH STANLEY Repair of right ingu inal hernia MARYBETH KENNETH Transrectal biopsy o f prostate using ultrasound guidance MARYBETH MOTARY Immunizations Immunization Date Immunization Notes Care Provider Fa [facility] 09-29-2023 influenza, high dose seasonal, preservative-free Timo Francis Other [employer] Other 09-29-2023 influenza virus vaccine, unspecified formulation [facility] 09-07-2022 influenza virus vaccine, split virus (incl. purified surface antigen) Timo Francis Other [employer] Other 09-07-2022 influenza virus vaccine, unspecified formulation [facility] 04-26-2022 SARS-CoV-2 mRNA ([id number] se) vaccine MARYBETH STANLEY [facility] 09-02-2021 SARS-CoV-2 (COVID-19 ) mRNA BNT-162b2 vax MARYBETH STANLEY [facility] 08-18-2021 influenza virus vaccine, unspecified formulation MARYBETH KENNETH [facility] 08-13-2021 influenza virus vaccine, split virus (incl. purified surface antigen) Timo Francis Other [employer] Other 08-13-2021 influenza virus vaccine, unspecified formulation [facility] 02-23-2021 SARS-CoV-2 (COVID-19 ) mRNA BNT-162b2 vax MARYBETH KENNETH [facility] 02-03-2021 SARS-CoV-2 (COVID-19 ) mRNA BNT-162b2 vax MARYBETH KENNETH [facility] Comment on above: Result Comment: 2021: [id number] 01-25-2021 SARS-CoV-2 (COVID-19 ) mRNA BNT-162b2 vax MARYBETH KENNETH [facility] 08-31-2020 influenza virus vaccine, split virus (incl. purified surface antigen) Timo Francis Other [employer] Other 08-31-2020 influenza virus vaccine, unspecified formulation [facility] 08-30-2019 influenza virus vaccine, split virus (incl. purified surface antigen) Timo Francis Other [employer] Other 08-30-2019 influenza virus vaccine, unspecified formulation MARYBETH KENNETH [facility] 08-29-2018 influenza virus vaccine, split virus (incl. purified surface antigen) Timo Francis Other [employer] Other 08-29-2018 influenza virus vaccine, unspecified formulation MARYBETH STANLEY [facility] 08-03-2017 influenza virus vaccine, split virus (incl. purified surface antigen) Timo Francis Other [employer] Other 08-03-2017 influenza virus vaccine, unspecified formulation MARYBETH STANLEY [facility] 09-05-2016 influenza virus vaccine, split virus (incl. purified surface antigen) Timo Penny Other [employer] [facility] [employer] Other 09-05-2016 influenza virus vaccine, unspecified formulation MARYBETH STANLEY [facility] 10-16-2015 pneumococcal conjuga te vaccine, 13 valent Timo Francis Other [facility] 09-01-2015 influenza virus vaccine, split virus (incl. purified surface antigen) Timo Francis Other [employer] Other 09-01-2015 influenza virus vaccine, unspecified formulation [facility] 09-15-2014 tetanus and diphther ia toxoids, adsorbed, preservative free, for adult use (5 Lf of tetanus toxoid and 2 Lf of diphtheria toxoid) Timo Francis Other [facility] 08-27-2013 tetanus and diphther ia toxoids, adsorbed, preservative free, for adult use (5 Lf of tetanus toxoid and 2 Lf of diphtheria toxoid) Timo Francis Other [facility] 01-10-2007 pneumococcal polysaccharide vaccine, 23 valent Timo Francis Other [facility] 1999 pneumococcal polysaccharide vaccine, 23 valent MARYBETH STANLEY [facility] Payers Date Payer Category Payer Self-pay 2024 Unknown [id number] [id number] 2023 Unknown [id number] 1960 Medicare [id number] 1960 Unknown [id number] 1934 Unknown [id number] 2.16. [id number] 1934 Unknown [id number] 2.16. [id number] 1934 Unknown [id number] 2.16.8 [id number] 1934 Unknown [id number] 2.16.8 [id number] 1934 Unknown [id number] 2.16.8 [id number] 1934 Unknown [id number] 2.16.8 [id number] 1934 Unknown [id number] 2.16.8 [id number] 1934 Unknown [id number] 2.16.84 [id number] 1934 Unknown [id number] 2.16.84 [id number] 1934 Unknown [id number] 2.16.84 [id number] 1934 Unknown [id number] 2.16.84 [id number] 1934 Unknown [id number] 2.16.84 [id number] Medicare [id number] Unknown [facility] Health Claims [id number] Unknown Other1 (STD) [id number] Unknown [id number] 2.16.8 [id number] Social History Date Type Detail Facility Start: 03-16-2022 End: 01-16-2024 Tobacco smoking status Never smoked tobacco (finding) [facility] Tobacco smoking status Never [facility] Sex Assigned At Male [facility] Start: 1935 Sex Assigned At Male F [facility] Functional Status Date Assessment Result Facility 09-21-2022 Functional Status N/A [facility] Clinical Notes 07-28-2021 to 01-26-2024 Note Date & Type Note Facility 01-26-2024 Note CAMERON clip 2017 No anticoagulation with CAMERON clip Continue toprol and digoxin- rate is controlled in office [facility] 01-26-2024 Note Will monitor with ro utine echocardiograms. [facility] 01-26-2024 Note Continue diuresis wi th lasix bid for next 2-3 days and then resume daily dose. [facility] 01-26-2024 Note Hypertension is stab le Well controlled 100/60 Continue all meds [facility] 01-26-2024 Note [facility] III Continue GDMT- ASA, digoxin, lisinopril, toprol with midodrine. Diuretic therapy- lasix 40 mg daily with bid as needed for fluid overload. Asked pt to continue lasix bid for next 2-3 days Sent pt to lab for BMP Monitor daily weights, I&O, fluid restriction 1.5-2L/day, renal function and electrolytes- please maintain K+>4 and Mg > 2 [facility] 01-26-2024 Note [facility] CARDIOLOGY PROGR ESS NOTE [facility] HPI: Samson Kelley is a 88 y.o. male here for hospital F/U at [facility] HPI 88 y.o. 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 He was started on midodrine and thyroid medication. Pt was admitted 01/09/24-01/12/24 and was noted to be fluid overloaded Acute HFrEF, pulm edema, acute resp failure, hypothyroidism. Pt was diuresed agressively and treated for hypothyroid was initiated, and hypotension was managed with midodrine. Currently pt states he feels well and gaining strength at home with PT. Reports his typical SOB with exertion and denied SOB at rest. Denied fever, chills, N/V/D. States leg swelling is about usual and typically goes down a little overnight with elevation. .Review of Systems Eyes: Positive for vision loss in left eye and vision loss in right eye. Cardiovascular: Positive for dyspnea on exertion and leg swelling. Respiratory: Positive for shortness of breath. Hematologic/Lymphatic: Bruises/bleeds easily. Admits sleep disturbances, difficulty going to sleep at night, awakens a couple times each night, + snoring and possible apnea. All other systems reviewed and are negative. Visit Vitals BP 100/60 (BP Location: Right arm, Patient Position: Sitting) Pulse 56 Ht 1.854 m (6' 1 ) Wt 95.7 kg (211 lb) SpO2 93% BMI 27.84 kg/m??? Smoking Status Never BSA 2.22 m??? No Known Allergies Medications: Current Outpatient Medications on File Prior to Visit Medication Sig Dispense Refill aspirin 81 mg chewable tablet Chew 81 mg in the morning. digoxin (Lanoxin) 125 MCG tablet Take 125 mcg by mouth in the morning. furosemide (Lasix) 40 mg tablet Take 40 mg by mouth in the morning. levothyroxine (Synthroid, Levoxyl) 100 mcg tablet TAKE 1 TABLET BY MOUTH DAILY BEFORE BREAKFAST lisinopril 2.5 mg tablet Take 2.5 mg by mouth in the morning. metoprolol succinate XL (Toprol-XL) 50 mg 24 hr tablet Take 50 mg by mouth in the morning. midodrine (Proamatine) 5 mg tablet Take 10 mg by mouth in the morning, afternoon, and at bedtime. oxybutynin XL (Ditropan-XL) 5 mg 24 hr tablet Take 5 mg by mouth in the morning. metoprolol tartrate (Lopressor) 25 mg tablet Take 25 mg by mouth in the morning and at bedtime. 1.5 tablets in the AM and 1 tablet in the PM No current facility-administered medications on file prior to visit. Physical Exam: Constitutional: Appearance: Normal appearance. Without apparent distress, chronically ill HENT: Head: Normocephalic and atraumatic. Nose: Nose normal. Mouth/Throat: Mouth: Mucous membranes are moist. Eyes: Extraocular Movements: Extraocular movements intact. Conjunctiva/sclera: Conjunctivae normal. Neck: Vascular: No JVD. Cardiovascular: Rate and Rhythm: Normal rate and irregular rhythm. Pulses: Dorsalis pedis pulses are 2 on the right side and 2on the left side. Posterior tibial pulses are 2 on the right side and 2 on the left side. Heart sounds: Normal heart sounds, S1 normal and S2 normal. Pulmonary: Effort: Pulmonary effort is normal. Breath sounds: Normal breath sounds. Abdominal: General: Bowel sounds are normal. Palpations: Abdomen is soft. Musculoskeletal: General: Normal range of motion. Cervical back: Normal range of motion. Right lower le+ pitting edema. Left lower le+ pitting edema. Skin: General: Skin is warm and dry. Capillary Refill: Capillary refill takes less than 2 seconds. Neurological: General: No focal deficit present. Mental Status: he is alert and oriented to person, place, and time. Psychiatric: Mood and Affect: Mood normal. Behavior: Behavior normal. Thought Content: Thought content normal. Judgment: Judgment normal. Labs: 01/12/24 CBC stable NA and K+ normal BUN 52, CR 1.49 GFR 44- reduced renal function Liver function normal Pro BNP 4324 TSH 17.442 Last lab values have been reviewed CV Testin11/16/23 Echo- FINDINGS: .LEFT VENTRICLE: Moderate dilatation. Thickened septal wall. LV EF: Global left ventricular systolic function is moderately decreased. Visual estimation of left ventricular ejection fraction is unchanged from previous exam of 05/02/23 at 35-40%. Abnormal septal motion; may be related to underlying paced rhythm. D-shaped septum consistent with right ventricular pressure and/or volume overload. The distal inferior wall is akinetic. LEFT ATRIUM: Severe dilatation. RIGHT ATRIUM: Moderate dilatation. RIGHT VENTRICLE: Severe dilatation. Normal right ventricular systolic function. Pacer wire present. TRICUSPID VALVE: Normal mobility and thickness. Moderate tricuspid regurgitation. Moderate pulmonary hypertension. 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 AORTIC VALVE: Normal trile (more content not included)... [facility] 01-26-2024 Note Patient here for fol [facility] up [facility]. He was started on midodrine and thyroid medication. .Review of Systems Eyes: Positive for vision loss in left eye and vision loss in right eye. Cardiovascular: Positive for dyspnea on exertion and leg swelling. Respiratory: Positive for shortness of breath. Hematologic/Lymphatic: Bruises/bleeds easily. All other systems reviewed and are negative. [facility] 01-01-2024 Note Patient here for 6 m o follow up and device check. He was admitted to [facility] in Oct 2023 and was seen [...] All other systems reviewed and are negative. [facility] 01-01-2024 Note [facility] Consult Note Reason for visit: HPI: Samson Kelley is a 88 y.o. 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 male here as [...] Recreational drug use: denies No Known Allergies PMH: No past medical history on file. PSH: Past Surgical History: Procedure Laterality Date MITRAL VALVE REPAIR 2017 With tricuspid valve repair and CAMERON exclusion with clip SH: Social Determinants of Health Tobacco Use: Low Risk (04/17/2023) Patient History Smoking Tobacco Use: Never Smokeless Tobacco Use: Never Passive Exposure: Not on file Alcohol Use: Not on file Financial Resource Strain: Not on file Food Insecurity: Not on file Transportation Needs: Not on file Physical Activity: Not on file Stress: Not on file Social Connections: Not on file Intimate Partner Violence: Unknown (01/01/2024) [place] Safety & Environment Fear of Current or Ex-Partner: Not on file Emotionally Abused: Not on file Physically Abused: Not on file Sexually Abused: Not on file Physically or Sexually Abused: Not on file Depression: Not on file Housing Stability: Not on file Utilities: Not on file Allergies: No Known Allergies Weight: 97.1kg Visit Vitals BP 104/60 (BP Location: Left arm, Patient Position: Sitting) Pulse 69 Ht 1.854 m (6' 1 ) Wt 97.1 kg (214 lb) SpO2 96% BMI 28.23 kg/m??? Smoking Status Never BSA 2.24 m??? Meds: Current Outpatient Medications on File Prior to Visit Medication Sig Dispense Refill aspirin 81 mg chewable tablet Chew 81 mg in the morning. digoxin (Lanoxin) 125 MCG tablet Take 125 mcg by mouth in the morning. furosemide (Lasix) 40 mg tablet Take 40 mg by mouth in the morning. lisinopril 2.5 mg tablet Take 2.5 mg by mouth in the morning. metoprolol succinate XL (Toprol-XL) 50 mg 24 hr tablet Take 50 mg by mouth in the morning. oxybutynin XL (Ditropan-XL) 5 mg 24 hr tablet Take 5 mg by mouth in the morning. metoprolol tartrate (Lopressor) 25 mg tablet Take 25 mg by mouth in the morning and at bedtime. 1.5 tablets in the AM and 1 tablet in the PM No current facility-administered medications on file prior to visit. ROS: Cardio Basic Cardiovascular Symptoms: no lightheadedness, no leg edema, no syncope, no orthopnea, no PND, no claudication, Constitutional Constitutional: no fever, no night sweats, no significant weight gain, no significant weight loss, no exercise intolerance Eyes Eyes: no dry eyes, no irritation, no vision change ENMT Ears: no difficulty hearing, no ear pain Nose: no frequent nosebleeds, Mouth/Throat: no sore throat, no bleeding gums, no snoring, no dry mouth, no mouth ulcers, no oral abnormalities, no teeth problems Respiratory Respiratory: no cough, no wheezing, no coughing up blood, no sleep apnea Musculoskeletal Musculoskeletal: no muscle aches, no muscle weakness, joint pain+, no back pain, no swelling in the extremities Integumentary Skin no rash, no ulcer, no varicosities, no discoloration, no pruritus Neurologic Neurologic: no loss of consciousness, no weakness, no numbness, no seizures, no dizziness, no headaches Psychiatric Psych: no depression, feeling safe in relationship, no alcohol abuse, Hematologic/Lymphatic Hematologic/Lymphatic no swollen glands, no bruising Physical Exam: Constitutional General Appearance: well-nourished, well-developed, appears stated age Level of Distress: comfortable Psychiatric Mental Status: alert, normal affect Orientation: oriented to time, place, and person Insight: good judgement Eyes Lids and Conjunctivae: non-injected, no xanthelasma ENMT Ears: no lesions on external ear Nose: no lesions on external nose Oropharynx: no cyanosis, no pallor Neck Neck: supple, trachea midline Carotid Arteries: bilateral normal upstroke, no bruits Jugular Veins: normal jugular venous pressure Thyroid: not enlarged Lungs Respiratory Effort: unlabored Chest Exam: normal curvature, no thoracic deformity Auscultation: clear, no wheezing, no rales, no rhonchi Cardiovascular Ra (more content not included)... [facility] 12-29-2023 Evaluation note Encounter Date Diagnosis Assessment Notes Dec, Anemia (ICD-10 - D64.9) [employer] Other 01-03-2024 NoteThis report has been cancelled. [facility]01-03-2024 NoteThis report has been cancelled.[facility]01-03-2024 NoteThis report has been cancelled.[facility]01-03-2024 NoteThis report has been cancelled.[facility]01-03-2024 NoteThis report has been cancelled.[facility]01-03-2024 NoteThis report has been cancelled.[facility]01-03-2024 NoteThis report has been cancelled.[facility]12-27-2023 Evaluation note* Encounter Date Diagnosis Assessment Notes [...] are maintaining regular scheduled appts with their pilot control operator helper. s/p LAAO procedure, off anticoagulation Oct, Pulmonary [...] I44.1) PM inserted PM checkups every 6months. [employer] Other 11-07-2023 Evaluation note* Encounter Date Diagnosis [...] continue exercise to achieve/maintain a normal BMI. [employer] Other 10-05-2023 Evaluation note* Encounter Date Diagnosis [...] are maintaining regular scheduled appts with their pilot control operator helper. No bleeding complications Aug, Chronic venous insufficiency [...] (ICD-10 - Z79.899) Check labs: CBC, Dig [employer] Other 06-30-2023 Evaluation note* Encounter Date Diagnosis [...] are maintaining regular scheduled appts with their pilot control operator helper. No bleeding complications Apr, Chronic venous insufficiency (ICD-10 - I87.2) Avoid salt and elevate lower extremities, support stockings, inspect legs and feet daily for blisters and ulcerations. 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 No active treatment at this time. [employer] Other 05-22-2023 NotePatient is here today to establish care Review of Systems HENT: Positive for ear discharge. Eyes: Positive for vision loss in left eye and vision loss in right eye. Respiratory: Positive for cough. All other systems reviewed and are negative.[facility] 04-17-2023 NoteCardiovascular Medicine [facility] SUBJECTIVE Chief Complaint Patient presents with Establish Care HPI Samson Kelley is a 87 y.o. male here as [...] puffier lately. -Will ob (more content not included)...[facility] 01-20-2023 Evaluation note* Encounter Date Diagnosis Assessment [...] are maintaining regular scheduled appts with their pilot control operator helper. 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 Needs new Newcomer Hostess, suggest [facility] here in [place] Dec, History of prostate cancer (ICD-10 - Z85.46) No s/s recurrence [employer] Other 10-26-2022 Hospital Discharge instructions Patient Education [...] who: Are older than age 65. Are -Niuean. Are obese. Have a family history of [...] cells. Follow these instructions at home: Take zfqm-ner-oykdjkz and prescription medicines only as told by [...] 11/13/2006 Document Revised: 10/26/2018 Document Reviewed: 07/24/2017 [employer] Patient Education 2020 [employer]ire. Follow Up Care 03/16/2022 09:37:24 With:KENNETH SHEPARD, MARYBETH Trivedi, URL Address: [address] [place] [address] [phone] When: only if needed [facility] Jacki 04-20-2022 Hospital Discharge instructions Patient [...] who: Are older than age 65. Are -Niuean. Are obese. Have a family history of [...] cells. Follow these instructions at home: Take pqrx-rbc-cmlwvgi and prescription medicines only as told by [...] 11/13/2006 Document Revised: 10/26/2018 Document Reviewed: 07/24/2017 [employer] Patient Education 2020 Qire. Follow Up Care 01/28/2022 16:02:47 With:MARYBETH STANLEY PA-C, URL Address: [address] [place] [address] Business (1) When:6 months [facility] 09-21-2021 NoteHNO ID: [id number] Author: Jewel Cary III, MD Service: ? Author Type: Physician Type: Progress Notes Filed: 08/17/2021 9:33 AM Note Text: This patient is post op from laparoscopic cholecystectomy. He has had no symptoms. P.E. The wounds are healing well without evidence of infection. I reviewed the pathology report with Samson. Assessment Satisfactory course Plan: Return to office PRN. Jewel Cary III, [facility]09-01-2021 NoteHNO ID: [id number] Author: Jaspal Phipps APRN.CRNA Service: Anesthesiology Author Type: Nurse Machine Plaster Mixer Type: Anesthesia Procedure Notes Filed: 07/28/2021 10:50 AM Note Text: ANESTHESIOLOGY PROCEDURE NOTE Airway General Information Procedure Start Time/Medication Administration: 07/28/2021 10:40 AM Patient location during procedure: OR Patient identity confirmed: arm band and patient Staffing Anesthesiologist: Ramiro Esquivel MD HIDE PASTER: Jaspal Phipps APRN.HIDE PASTER Performed by: JASON Indications and Patient Condition [...] to 7.0 ETT-no difficulty. SIGNATURE: Jaspal Phipps APRN.HIDE PASTER PATIENT NAME: Samson Kelley DATE: July 28, 2021 TIME: 10:48 AM CSN: [id number] note Future Appointments Appointment Date:09/21/2022 10:00:00 AM Scheduled Provider:MARYBTEH STANLEY PA-C Location:[facility] Appointment Type:URO Office Visit [facility] evaluation noteNo [facility] [employer] Other Evaluation note* Diagnosis Onset Date Resolution Status Chronic venous insufficiency of lower extremity acute CKD (chronic kidney disease) stage 3, GFR 30-59 ml/min acute HFrEF (heart failure with reduced ejection fraction) acute Hypoxia acute Mobitz (type) II atrioventricular block acute Pancytopenia acute Subclinical hyp[facility] Work Phone: [facility] Narrative - Reported* Type Description Date [...] GALLBLADDER 11/2029 Hospitalization History see surgical history [employer] Other [facility] Narrative - Reported* Type Description Date [...] 20 16 Hospitalization History see surgical history [employer] Other Hospital course Narrative No data available for this section [facility] progress note No data available for this section [facility] Summary Purpose Family History No Family History Records Found Relationship Condition Age at Onset Recorded Date/T jabier father Unknown Not Specified Unknown Advance Directives No Advanced Directives Records Found Advance Directive Response Recorded Date/ Time Advance Directives No January 04, 2024 12:18pm Chief Complaint and Reason for Visit Chief Complaint [facility] d/c 01/12 Reason for Visit Chronic venous insuf ficiency of lower extremity CKD (chronic kidney disease) stage 3, GFR 30-59 ml/min HFrEF (heart failure with reduced ejection fraction) Hypoxia Mobitz (type) II atrioventricular block Pancytopenia Subclinical hypothyroidism Additional Source Comments (unrecognized sect ion and content) No Status Records FoundNo Status Records FoundNo Status Records FoundNo Status Records FoundNo Status Records FoundNo Status Records FoundNo Status Records FoundNo Status Records FoundNo Status Records FoundNo Status Records Found INFORMATION SOURCE (unrecogn ized section and content) DATE CREATED AUTHOR 12/17/2018 [facility] DATE CREATED AUTHOR AUTHOR'S ORGANIZ ATION 07/31/2021 [facility] DATE CREATED AUTHOR AUTHOR'S ORGANIZ ATION 07/31/2021 [facility] DATE CREATED AUTHOR AUTHOR'S ORGANIZ ATION 12/24/2021 [facility] DATE CREATED AUTHOR AUTHOR'S ORGANIZ ATION 12/26/2021 [facility] DATE CREATED AUTHOR AUTHOR'S ORGANIZ ATION 09/22/2022 [facility] DATE CREATED AUTHOR AUTHOR'S ORGANIZ ATION 10/05/2022 [facility] DATE CREATED AUTHOR AUTHOR'S ORGANIZ ATION 12/27/2023 [facility] DATE CREATED AUTHOR AUTHOR'S ORGANIZ ATION 02/05/2024 [facility] DATE CREATED AUTHOR AUTHOR'S ORGANIZ ATION 02/11/2024 [facility] Patient Care team informatio n (unrecognized section and content) Team Status: Active Member Role Status Dates Timo Francis DO Primary Care Provider Active Team Status: Inactive Member Role Status Dates Timo Francis DO Attending Provider Active Sta rt: November 22, 2023 End: November 22, 2023 Team Status: Inactive Member Role Status Dates Timo Francis DO Attending Provider Active Sta rt: December 08, 2023 End: December 08, 2023 Team Status: Active Member Role Status Dates Timo Francis DO Primary Care Provide r, Attending Provider Active Start: January 08, 2024 Team Status: Active Member Role Status Dates Timo Francis DO Primary Care Provide r, Attending Provider Active Start: February 13th, 2024 Team Status: Active Member Role Status Dates Timo Francis , DO Primary Care Provide r, Attending Provider Active Start: January 10, 2024 Team Status: Active Member Role Status Dates Timo Francis , DO Primary Care Provide r, Attending Provider Active Start: January 11, 2024 Team Status: Active Member Role Status Dates Timo Francis , DO Primary Care Provide r, Attending Provider Active Start: January 12, 2024 Team Status: Inactive Member Role Status Dates Timo Francis , DO Primary Care Provide r, Attending Provider Active Start: January 16, 2024 End: January 16, 2024 REASON FOR VISIT (unrecogniz ed section and content) 6 MONTH FOLLOW UP4 MONTH FOL LOW UPWellnessLab resultsflu shotankle/foot swellingRefillTCKINDRED HEALTHCARE HHTBHMedication PriceTCMBlood PressuresBP readingsweight concernRepeat Labs Goals (unrecognized section and content) Goals may be documented in a n alternate section FOR RECORDS PERTAINING TO PATIENTS WHO ARE [...] BE BASED ON THE PRIMARY CLINICAL RECORDS. [facility] [employer] [facility]. provides no warranty or guarantee of the accuracy or completeness of information in this document.
--- NOTE | 2024-02-11 17:13 | ECG_ITS ---
[facility] Test Date: 2024-02-11 Pat Name: REINA JOE Department: Room: - Gender: Male Parker: : 1935 Requested By: NIRU FRANCIS Order Number: [id number] Reading MD: NIRU FRANCIS Measurements Intervals Eidson Rate: 61 P: -37696 OK: -88191 QRS: -71 QRSD: 196 T: 113 QT: 478 QTc: 481 Interpretive Statements 51714 Electronic ventricular pacemaker 9120 atypical ECG Compared to ECG 01/09/2024 05:26:58 No significant changes Electronically Signed On 02-11-2024 19:59:45 EDT by NIRU FRANCIS
--- NOTE | 2024-02-11 17:13 | XR_ITS ---
The [address] [address] Patient Name: REINA JOE MRN: [id number] date: 1935 Sex: M Assigned Patient Location: ED.MAIN Current Patient Location: ER Accession/Order Number: [id number] Exam Date: 02/11/2024 17:30 Report Date: 02/11/2024 18:26 At the request of: BRENT ROCHA Procedure: XR chest 1V ONE-VIEW CHEST RADIOGRAPH, 02/11/2024 5:30 PM EDT COMPARISON: Chest, 01/08/2024. CLINICAL HISTORY: SOB Findings and impression: 1. Interstitial pulmonary edema. Mild underlying inflammatory or infectious pneumonitis would be difficult to exclude 2. Cardiomegaly with evidence of prior open heart surgery. Patient has also had left atrial appendage clipping. Right atrial, right ventricular pacing lead present. 3. Minimal atelectasis in the left lung base. Calcified granuloma also seen in the left mid to lower lung zone. 4. No acute osseous abnormality. Electronically authenticated by: Neeru PAYTON Date: 02/11/2024 18:26
--- NOTE | 2024-02-11 17:14 | ED_ITS ---
HPI - SOB/Dyspnea General Chief Complaint: Shortness of Breath/Dyspnea Stated Complaint: SOB Time Seen by Provider: 02/11/24 17:08 Source: patient and family Mode of arrival: Wheelchair Limitations: no limitations History of Present Illness HPI Narrative: 88-year-old male presents to ED for shortness of breath. It has been coming on for 4 days. Family gives most of the history. He has not had a known fever but his ankles are a bit more swollen than typical and he has a history of CHF. He gets more dyspneic with exertion. He had an appointment with a polystyrene molding machine tender tomorrow. He is not complaining of chest pain. Related Data Home Medications Medication Instructions Recorded Confirmed aspirin 81 mg tablet,delayed 81 mg PO DAILY 11/15/23 01/08/24 release (Janice Low Dose Aspirin) digoxin 125 mcg (0.125 mg) tablet 0.125 mg PO Q24H 11/15/23 01/08/24 furosemide 40 mg tablet 40 mg PO Q24H 11/15/23 01/08/24 lisinopril 2.5 mg tablet 2.5 mg PO Q24H 11/15/23 01/08/24 oxybutynin chloride 5 mg 5 mg PO Q24H 11/15/23 01/08/24 tablet,extended release 24 hr metoprolol succinate 50 mg 50 mg PO QDAY 12/03/23 01/08/24 tablet,extended release 24 hr melatonin 5 mg tablet 5 mg PO QPM PRN sleep 01/08/24 01/08/24 Previous Rx's Medication Instructions Recorded levothyroxine 100 mcg tablet 100 mcg PO ACB #30 tabs 01/12/24 liothyronine 5 mcg tablet 10 mcg (2 x 5 mcg) PO QD #30 tabs 01/12/24 midodrine 5 mg tablet 10 mg (2 x 5 mg) PO TID #90 tabs 01/12/24 Allergies Allergy/AdvReac Type Severity Reaction Status Date / Time No Known Drug Allergies Allergy Verified 01/08/24 17:10 Review of Systems ROS Narrative A ten point review of systems is negative except as noted above. [facility] Medical History (Updated 02/11/24 @ 17:29 by Jayesh Torres MD) Hypotension ?I95.9 - Hypotension, unspecified (ICD-10) Stage 3b chronic kidney disease (CKD) ?N18.32 - Chronic kidney disease, stage 3b (ICD-10) Acute on chronic HFrEF (heart failure with reduced ejection fraction) ?I50.23 - Acute on chronic systolic (congestive) heart failure (ICD-10) Subclinical hypothyroidism ?E03.8 - Other specified hypothyroidism (ICD-10) Acute respiratory failure with hypoxia ?J96.01 - Acute respiratory failure with hypoxia (ICD-10) Paroxysmal A-fib ?I48.0 - Paroxysmal atrial fibrillation (ICD-10) HTN (hypertension) ?I10 - Essential (primary) hypertension (ICD-10) Hypoxemia ?R09.02 - Hypoxemia (ICD-10) Acute exacerbation of CHF (congestive heart failure) ?I50.9 - Heart failure, unspecified (ICD-10) Thrombocytopenia ?D69.6 - Thrombocytopenia, unspecified (ICD-10) OAB (overactive bladder) ?N32.81 - Overactive bladder (ICD-10) Anemia ?D64.9 - Anemia, unspecified (ICD-10) HFrEF (heart failure with reduced ejection fraction) ?I50.20 - Unspecified systolic (congestive) heart failure (ICD-10) Atherosclerotic heart disease of [place] coronary artery without angina pectoris ?I25.10 - Atherosclerotic heart disease of [place] coronary artery without angina pectoris (ICD-10) CKD (chronic kidney disease) stage 3, GFR 30-59 ml/min ?N18.30 - Chronic kidney disease, stage 3 unspecified (ICD-10) Retinal detachment ?H33.20 - Serous retinal detachment, unspecified eye (ICD-10) Prostate CA ?C61 - Malignant neoplasm of prostate (ICD-10) Pacemaker ?Z95.0 - Presence of cardiac pacemaker (ICD-10) Surgical History (Updated 11/15/23 @ 15:48 by Rosenda Ramirez NP) Hx of inguinal hernia repair ?Z98.890 - Other specified postprocedural states (ICD-10) ?Z87.19 - Personal history of other diseases of the digestive system (ICD-10) History of permanent cardiac pacemaker placement ?Z95.0 - Presence of cardiac pacemaker (ICD-10) History of tricuspid valve repair ?Z98.890 - Other specified postprocedural states (ICD-10) H/O mitral valve repair ?Z98.890 - Other specified postprocedural states (ICD-10) Family History (Updated 11/15/23 @ 15:37 by Keyla Wilson) Mother Family history of CHF (congestive heart failure) Family history of hypertension Sister Family history of cancer Social History (Updated 11/15/23 @ 15:38 by Keyla Wilson) Within the past year, how often did you have a drink containing alcohol: never Score interpretation: A score less than 4 is consistent with normal alcohol consumption. Smoking status: Never smoker Non-prescribed substance use: denies use Previous occupational history: [employer] Highest level of school completed/degree received: high school graduate Are you now , , , , never or living with a partner: never In a typical week, how many times do you talk on the telephone with family, friends, or neighbors: once per week How often do you get together with friends or relatives: once per week How often do you attend scientology or quaker services: never Do you belong to any clubs or organizations such as scientology groups unions, fraternal or athletic groups, or school groups: no Total score: 0 Score interpretation: A score of less than or equal to 1 indicates the most socially isolated. Exam Narrative Exam Narrative: Nurses note and vital signs reviewed and patient is not hypoxic. General: The patient appears in no apparent respiratory distress. Patient is resting comfortably on cart. Skin: Warm, dry, no pallor noted. There is no rash noted. Head: Normocephalic, atraumatic Eye: Normal conjunctiva, no drainage Ears, Nose, Mouth, and Throat: oral mucosa is moist. Nares patent. Cardiovascular: Regular Rate and Rhythm Respiratory: Patient is in no distress, no accessory muscle use, lungs are clear to auscultation, no wheezing, rales or rhonchi Back: non-tender GI: Soft and nontender Musculoskeletal: The patient has no evidence of calf tenderness, bilateral ankle edema present, symmetrical pulses noted bilaterally Neurological: A&O, normal speech Psychiatric: Cooperative Constitutional Vital Signs, click to edit/add: Last Vital Signs Temp 97.5 F L 02/11/24 17:00 Pulse 83 02/11/24 17:00 Resp 28 H 02/11/24 17:00 BP 117/74 02/11/24 17:00 Pulse Ox 83 L 02/11/24 17:00 O2 Del Method Room Air 02/11/24 17:00 O2 Flow Rate 3 02/11/24 17:00 Course Vital Signs Vital signs: Vital Signs Temperature 97.5 F L 02/11/24 17:00 Pulse Rate 83 02/11/24 17:00 Respiratory Rate 28 H 02/11/24 17:00 Blood Pressure 117/74 02/11/24 17:00 Pulse Oximetry 83 L 02/11/24 17:00 Oxygen Delivery Method Room Air 02/11/24 17:00 Oxygen Delivery Flow Rate 3 02/11/24 17:00 Temperature 97.5 F L 02/11/24 17:00 Pulse Rate 83 02/11/24 17:00 Respiratory Rate 28 H 02/11/24 17:00 Blood Pressure 117/74 02/11/24 17:00 Pulse Oximetry 83 L 02/11/24 17:00 Oxygen Delivery Method Room Air 02/11/24 17:00 Oxygen Delivery Flow Rate 3 02/11/24 17:00 MDM - SOB/Dyspnea MDM Narrative Medical decision making narrative: Tests are ordered and the patient is signed out to Dr. Hale at change of shift. Differential Diagnosis Differential diagnosis: Likely acute exacerbation of chronic obstructive airways disease, congestive heart failure, community acquired pneumonia and other (COVID, influenza) ECG Data Attestation: I personally reviewed and interpreted this ECG as follows: (EKG on my interpretation shows paced rhythm) Discharge Plan Discharge Chief Complaint: Shortness of Breath/Dyspnea Clinical Impression: Dyspnea Patient Disposition: Still a Patient Prescriptions / Home Meds: No Action oxybutynin chloride 5 mg tablet extended release 24hr 5 mg PO Q24H digoxin 125 mcg (0.125 mg) tablet 0.125 mg PO Q24H lisinopril 2.5 mg tablet 2.5 mg PO Q24H Hold Instructions: Until OK with PCP based on renal function Patient Comments: Only takes if Systolic is above 95 per pt aspirin [Janice Low Dose Aspirin] 81 mg tablet,delayed release (DR/EC) 81 mg PO DAILY furosemide 40 mg tablet 40 mg PO Q24H metoprolol succinate 50 mg tablet extended release 24 hr 50 mg PO QDAY melatonin 5 mg tablet 5 mg PO QPM PRN (Reason: sleep) levothyroxine 100 mcg Tablet 100 mcg PO ACB Qty: 30 0RF liothyronine 5 mcg Tablet 10 mcg PO QD Qty: 30 0RF midodrine 5 mg Tablet 10 mg PO TID Qty: 90 0RF Referrals: Timo Bar DO [Primary Care Provider] - 1 week
[2024-02-11 17:43] LABS: Adenovirus NOT DETECTED (NOT DETECTE); Bordetella parapertussis NOT DETECTED (NOT DETECTE); Coronavirus 229E NOT DETECTED (NOT DETECTE); Coronavirus HKU1 NOT DETECTED (NOT DETECTE); Coronavirus NL63 NOT DETECTED (NOT DETECTE); Coronavirus OC43 NOT DETECTED (NOT DETECTE); Human Metapneumovirus NOT DETECTED (NOT DETECTE); Human Rhinovirus/Enterovirus NOT DETECTED (NOT DETECTE); Influenza A NOT DETECTED (NOT DETECTE); Influenza B NOT DETECTED (NOT DETECTE); Mycoplasma pneumoniae NOT DETECTED (NOT DETECTE); Parainfluenza Virus 1 NOT DETECTED (NOT DETECTE); Parainfluenza Virus 2 NOT DETECTED (NOT DETECTE); Parainfluenza Virus 3 NOT DETECTED (NOT DETECTE); Parainfluenza Virus 4 NOT DETECTED (NOT DETECTE); Respiratory Syncytial Virus NOT DETECTED (NOT DETECTE); SARS-CoV-2 NOT DETECTED (NOT DETECTE)
[2024-02-11 18:06] LABS: Basophils Percent Auto 0.7 % (0.2-2.0); Eosinophils Absolute Auto 0.1 10^3/uL (0.0-0.7); Eosinophils Percent Auto 3.1 % (0.9-7.0); Hematocrit 30.8 % (42.0-54.0); Hemoglobin 9.5 g/dL (14.0-18.0); Immature Granulocytes Abs Auto 0.01 10^3/uL (0.00-0.03); Immature Granulocytes Pct Auto 0.2 % (0.0-0.5); Lymphocytes Absolute Auto 0.8 10^3/uL (1.2-3.8); Mean Corpuscular HGB Conc 30.8 g/dL (29.9-35.2); Mean Corpuscular Hemoglobin 34.3 pg (25.9-34.0); Mean Platelet Volume 11.6 fL (9.5-13.5); Monocytes Absolute Auto 0.7 10^3/uL (0.3-0.8); Monocytes Percent Auto 14.4 % (1.7-12.0); Neutrophils Absolute Auto 2.9 10^3/uL (1.4-6.5); Neutrophils Percent Auto 63.6 % (43.0-75.0); Platelet Count 85 10^3/uL (150-450); Red Blood Count 2.77 10^6/uL (4.70-6.10); White Blood Count 4.5 10^3/uL (4.0-11.0)
[2024-02-11 18:11] LABS: Anion Gap 11.4; BUN Creatinine Ratio 31.9; Calcium 9.5 mg/dL (8.5-10.1); Carbon Dioxide 28.8 mmol/L (21.0-32.0); Chloride 99 mmol/L (98-107); Estimated GFR (African America 57 (>=60); Estimated GFR (Non-African Ame 47 (>=60); Glucose 111 mg/dL (74-106); Potassium 4.2 mmol/L (3.5-5.1); Sodium 135 mmol/L (136-145); Troponin I High Sensitivity 33.9 pg/mL (4.0-76.1)
[2024-02-11 18:23] LABS: Mean Corpuscular Volume 111.2 fL (80.0-94.0); Red Cell Distribution Width 16.4 % (11.0-15.0)
--- OUTSIDE RECORDS SUMMARY | 2024-02-11 19:14 | XMS_ITS | CCD ---
Author Name Unknown Address [address] [place] [address] Organization [facility] Care Team Providers Care Harmonic Analyst Name Role Phone TIMO FRANCIS Primary Care Physician MARYBETH STANLEY Attending Unavailable KENNETH, MARYBETH Trivedi Attending Unavailable KENNETH, MARYBETH Trivedi Attending Unavailable PENNY, DR MARRUFO Primary Care Unavailable NADERER, DR MADISON Arriaza Admitting Unavailable NADERER, DR MADISON Arriaza [...] Start: 11-22-2023 take 1 capsule by mo [facility] once daily Metoprolol Succinate 50 MG [...] Daily, # 90 tab(s), Refills(s) 3, Pharmacy: [facility], 183, cm, 09/21/22 12:19:00 EDT, Height/Length [...] 08-10-2022 Episodic Other aftercare (6 sources) Other watermaster (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) drug therapy; Translations: [[facility] CURRENT DRUG THERAPY] Onset: 07-08-2022 Episodic Other aftercare (1 source) 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; Translations: [[facility] CURRENT USE OF ASPIRIN] Onset: 08-16-2022 Episodic [...] iron 02-07-2024 CT guided bone marrow bx/aspir [facility] [place] [address] CT Scan Report Signed Patient: Samson Kelley MR#: [id number] : 1935 Acct:[id number] Age/Sex: 88 / M ADM Date: 02/07/24 Loc: CT Room: Type: [facility] Attending Dr: Martha Meier MD Copies to: [...] Zach Ontiveros M.D.02/07/2024 2:21 PM Dictation Location: [place] [address] Transcribed By: [facility] 02/07/24 1421 Dictated By: Zach Ontiveros II, MD 02/07/24 1418 Signed By: 02/07/24 1421 Normal [facility] Coagulation Profileon 2023 aPTT Coag (Bld) [Time] 41.4 s High 25.1-36.5 [facility] Comment on above: Result Comment: A he matocrit value greater than 55% may lead to inaccurate results in coagulation testing. Patients having hematocrit values >55% require a special collection tube for coagulation studies. Please contact the laboratory at [phone] for redraw instructions. PERFORMED BY: [place] [id number] PATHOLOGIST MOLDING MACHINE OPERATOR HELPER DILIA SUAZO M.D. Performed By: #### C BC, PP #### [address] INR Coag (PPP) [Relative time] 1.2 {INR} Normal [facility] Comment on above: Result Comment: INR [...] Performed By: #### C BC, PP #### [address] PT Coag (PPP) [Time] 13.2 s High 9.0-12.9 [facility] Comment on above: Result Comment: A he matocrit value greater than 55% may lead to inaccurate results in coagulation testing. Patients having hematocrit values >55% require a special collection tube for coagulation studies. Please contact the laboratory at [phone] for redraw instructions. Performed By: #### C BC, PP #### [address] Complete Blood Count Auto Di ffon 02-07-2024 Basophils (Bld) [#/Vol] 0.0 10*3/uL Normal 0.0-0.2 [facility] Comment on above: Result Comment: PERF ORMED BY: [place] [address] PATHOLOGIST MOLDING MACHINE OPERATOR HELPER DILIA SUAZO M.D. Performed By: #### C BC, PP #### [address] Basophils/100 WBC (Bld) 0.9 % Normal . [facility] Comment on above: Performed By: #### C BC, PP #### [address] Eosinophils (Bld) [#/Vol] 0.1 10*3/uL Normal 0.0-0.45 [facility] Comment on above: Performed By: #### C BC, PP #### [address] Eosinophils/100 WBC (Bld) 1.8 % Normal . [facility] Comment on above: Performed By: #### C BC, PP #### [address] Erythrocyte distribution width (RBC) [Ratio] 16.5 % High 12.0-14.8 [facility] Comment on above: Performed By: #### C BC, PP #### [address] Hematocrit (Bld) [Volume fraction] 31.0 % Low 38.8-50.0 [facility] Comment on above: Performed By: #### C BC, PP #### [address] Hemoglobin (Bld) [Mass/Vol] 10.3 g/dL Low 13.0-17.0 [facility] Comment on above: Performed By: #### C BC, PP #### [address] Lymphocytes (Bld) [#/Vol] 0.6 10*3/uL Low 1.00-4.8 [facility] Comment on above: Performed By: #### C BC, PP #### [address] Lymphocytes/100 WBC (Bld) 13.7 % Normal . [facility] Comment on above: Performed By: #### C BC, PP #### [address] MCH (RBC) [Entitic mass] 34.5 pg Normal 27.5-35.2 [facility] Comment on above: Performed By: #### C BC, PP #### [address] MCV (RBC) [Entitic vol] 103.8 fL High 83.5-101 [facility] Comment on above: Performed By: #### C BC, PP #### [address] Mean Corpuscular HGB Conc 33.2 g/dL Normal 32.5-35.6 [facility] Comment on above: Performed By: #### C BC, PP #### [address] Monocytes (Bld) [#/Vol] 0.6 10*3/uL Normal 0.0-0.8 [facility] Comment on above: Performed By: #### C BC, PP #### [facility] [address] Monocytes/100 WBC (Bld) 14.1 % Normal . [facility] Comment on above: Performed By: #### C BC, PP #### [address] Neutrophils (Bld) [#/Vol] 3.1 10*3/uL Normal 1.8-7.7 [facility] Comment on above: Performed By: #### C BC, PP #### [address] Neutrophils/100 WBC (Bld) 69.5 % Normal . [facility] Comment on above: Performed By: #### C BC, PP #### [address] NRBC% 0.3 /100{WBC} Normal 0-0.5 [facility] Comment on above: Performed By: #### C BC, PP #### [address] Platelet mean volume (Bld) [Entitic vol] 9.2 fL Normal 6.6-10.1 [facility] Comment on above: Performed By: #### C BC, PP #### [place] [address] [place] Platelets (Bld) [#/Vol] 84 10*3/uL Low 150-450 [facility] Comment on above: Performed By: #### C BC, PP #### [place] [address] [place] RBC (Bld) [#/Vol] 2.99 10*6/uL Low 3.90-5.60 [facility] Comment on above: Performed By: #### C BC, PP #### [place] [address] [place] WBC (Bld) [#/Vol] 4.4 10*3/uL Normal 4.1-10.5 [facility] Comment on above: Performed By: #### C BC, PP #### [facility] [address] [place] [id number] [facility] 02-07-2024 L Specimen: Received: 02/07/24 Status: PRIYANKA Saravia Num: [id number] Spec Type: Bone Marro Subm Dr: Zach Ontiveros II, MD Tissues: A Bone Marrow Aspirate (Clot) (LT ILIAC CREST) B Bone Marrow Biopsy/Core (LT ILIAC CREST) Procedures: Peripheral Smr, Iron/3, HE/4, Gross/Micro L4/2, Bm Smear/2, CD138, CD20, CD3, Decalcification, Bone Marrow TP, GIEMSA STN/6 Age/ Patient Sex Location Account Attending Physician Samson Kelley 88/M CT [id number] Martha Meier MD SPEC NUM: RECD: 02/07/24 STATUS: PRIYANKA SARAVIA NUM: [id number] AURA: 02/07/[address]: Zach Ontiveros II, MD ENTERED: 02/07/[address] [facility] [address]: SPEC TYPE: Bone Marro DEPT: BM [...] BM24- Received: 02/07/24 Status: PRIYANKA Lopezcheryl Num: [id number] Spec Type: Bone Marro Subm Dr: Zach Ontiveros II, MD Tissues: A Bone Marrow Aspirate (Clot) (LT ILIAC CREST) B Bone Marrow Biopsy/Core (LT ILIAC CREST) Procedures: Peripheral Smr, Iron/3, HE/4, Gross/Micro L4/2, Bm Smear/2, CD138, CD20, CD3, Decalcification, Bone Marrow TP, GIEMSA STN/6 Patient: Samson Kelley [id number] (Continued) Specimen: [id number] Received: 02/07/24 (Continued) Pathological Diagnosis (Continued) Signed (signature on file) Lalita Lipscomb MD 02/09/24 1529 Specimen: [id number] Received: 02/07/24 Status: PRIYANKA Saravia Num: [id number] Spec Type: Bone Marro Subm Dr: Zach Ontiveros II, MD Tissues: A Bone Marrow Aspirate (Clot) (LT ILIAC CREST) B Bone Marrow Biopsy/Core (LT ILIAC CREST) Procedures: Peripheral Smr, Iron/3, HE/4, Gross/Micro L4/2, Bm Smear/2, CD138, CD20, CD3, Decalcification, Bone Marrow TP, GIEMSA STN/6 Patient: Samson Kelley [id number] (Continued) Specimen: [id number] Received: 02/07/24-1153 (Continued) Pathological [...] cm portion o (more content not included)... [facility] 36on 02-01-2024 36 Regarding BMP [...] see Dr. Orosco on 02/12/2024 at 10:15am. [facility] Orders Onlyon 01-31-2024 Orders Only [id number] Samson Kelley 1935 M Date Provider Department Center 01/31/[address] No family history on file Normal [facility] 37on 01-26-2024 37 May take lasix 1 [...] pillows than normal or in recliner. Normal [facility] Office Visiton 01-26-2024 Follow-up visit [id number] Samson Kelley 1935 M Date Provider Department Center 01/26/2024 VENECIA FRANKLIN WINNIE Jacki [facility] No family history on file Level of Service:55594 [place] OFFICE/OUTPATIENT ESTABLISHED MOD MDM 30 MIN Normal [facility] Basophils Auto (Bld) [#/Vol] on 01-12-2024 Basophils (Bld) [#/Vol] 0.0 10 3/uL 0.0-0.1 [facility] Basophils/100 WBC Auto (Bld) on 01-12-2024 Basophils/100 WBC (Bld) 0.2 % 0.2-2.0 [facility] Eosinophils/100 WBC Auto (Bl d)on 01-12-2024 Eosinophils/100 WBC (Bld) 1.2 % 0.9-7.0 [facility] Erythrocyte distribution wid th Auto (RBC) [Ratio]on 01-12-2024 Erythrocyte distribution width (RBC) [Ratio] 15.9 % 11.0-15.0 [facility] Estimated glomerular filtrat ion rate (GFR) non- Americanon 01-12-2024 GFR/1.73 sq M.predicted among non-blacks MDRD (S/P/Bld) [Vol rate/Area] 44 mL/min/{1.73_m2} >=60 [facility] Globulin Calc (S) [Mass/Vol] on 01-12-2024 Globulin (S) [Mass/Vol] 4.3 g/dL [facility] Hematocrit Auto (Bld) [Volum e fraction]on 01-12-2024 Hematocrit (Bld) [Volume fraction] 30.0 % 42.0-54.0 [facility] Hemoglobin [Mass/volume] in Bloodon 01-12-2024 Hemoglobin (Bld) [Mass/Vol] 9.5 g/dL 14.0-18.0 [facility] Laboratory - Chemistry and C hemistry - challengeon 01-12-2024 Albumin [Mass/Vol] 2.9 g/dL 3.4-5.0 [facility] ALP [Catalytic activity/Vol] 93 U/L 46-116 [facility] ALT [Catalytic activity/Vol] 17 U/L 16-63 [facility] AST [Catalytic activity/Vol] 11 U/L 15-37 [facility] Bilirubin [Mass/Vol] 1.9 mg/dL 0.2-1.0 [facility] Calcium [Mass/Vol] 9.0 mg/dL 8.5-10.1 [facility] Chloride [Moles/Vol] 106 mmol/L 98-107 [facility] CO2 [Moles/Vol] 28.1 mmol/L 21.0-32.0 [facility] Creatinine [Mass/Vol] 1.49 mg/dL 0.70-1.30 [facility] GFR/1.73 sq M.predicted MDRD (S/P/Bld) [Vol rate/Area] 54 mL/min/{1.73_m2} >=60 [facility] Glucose [Mass/Vol] 94 mg/dL 74-106 [facility] Natriuretic peptide B (Bld) [Mass/Vol] 4324.0 pg/mL <=1800.0 [facility] Comment on above: RESULTS CALLED TO SANJUANITA CORNELL RN @BY Radha Corea at 0645 Potassium [Moles/Vol] 4.2 mmol/L 3.5-5.1 [facility] Protein [Mass/Vol] 7.2 g/dL 6.4-8.2 [facility] Sodium [Moles/Vol] 141 mmol/L 136-145 [facility] Urea nitrogen [Mass/Vol] 52.0 mg/dL 7.0-18.0 [facility] Urea nitrogen/Creatinine [Mass ratio] 34.9 mg/mg [facility] Laboratory - Hematology and Cell countson 01-12-2024 Immature granulocytes/100 WBC (Bld) 0.2 % 0.0-0.5 [facility] Leukocytes [#/volume] correc ayan for nucleated erythrocytes in Blood by Automated counon 01-12-2024 WBC corrected for nucl RBC Auto (Bld) [#/Vol] 4.3 10 3/uL 4.0-11.0 [facility] Lymphocytes Auto (Bld) [#/Vo l]on 01-12-2024 Lymphocytes (Bld) [#/Vol] 0.9 10 3/uL 1.2-3.8 [facility] Lymphocytes/100 WBC Auto (Bl d)on 01-12-2024 Lymphocytes/100 WBC (Bld) 19.9 % 20.5-60.0 [facility] MCH Auto (RBC) [Entitic mass ]on 01-12-2024 MCH (RBC) [Entitic mass] 34.5 pg 25.9-34.0 [facility] MCHC Auto (RBC) [Mass/Vol]on 01-12-2024 MCHC (RBC) [Mass/Vol] 31.7 g/dL 29.9-35.2 [facility] MCV Auto (RBC) [Entitic vol] on 01-12-2024 MCV (RBC) [Entitic vol] 109.1 fL 80.0-94.0 [facility] Monocytes Auto (Bld) [#/Vol] on 01-12-2024 Monocytes (Bld) [#/Vol] 0.7 10 3/uL 0.3-0.8 [facility] Monocytes/100 WBC Auto (Bld) on 01-12-2024 Monocytes/100 WBC (Bld) 16.9 % 1.7-12.0 [facility] Neutrophils Auto (Bld) [#/Vo l]on 01-12-2024 Neutrophils (Bld) [#/Vol] 2.7 10 3/uL 1.4-6.5 [facility] Neutrophils/100 WBC Auto (Bl d)on 01-12-2024 Neutrophils/100 WBC (Bld) 61.6 % 43.0-75.0 [facility] No Panel Informationon 01-12 Digoxin Level 1.4 ng/mL 0.9-2.0 [facility] Eosinophils # (Auto) 0.1 10 3/uL 0.0-0.7 [facility] Immature Granulocyte # (Auto) 0.01 10 3/uL 0.00-0.03 [facility] Platelet mean volume Auto (B ld) [Entitic vol]on 01-12-2024 Platelet mean volume (Bld) [Entitic vol] 11.5 fL 9.5-13.5 [facility] Platelets Auto (Bld) [#/Vol] on 01-12-2024 Platelets (Bld) [#/Vol] 69 10 3/uL 150-450 [facility] RBC Auto (Bld) [#/Vol]on RBC (Bld) [#/Vol] 2.75 10 6/uL 4.70-6.10 [facility] Serum or plasma albumin/glob ulin mass ratioon 01-12-2024 Albumin/Globulin [Mass ratio] 0.7 {ratio} [facility] Serum or plasma anion gap de terminationon 01-12-2024 Anion gap [Moles/Vol] [facility].1 [facility] Basophils Auto (Bld) [#/Vol] on 01-11-2024 Basophils (Bld) [#/Vol] 0.0 10 3/uL 0.0-0.1 [facility] Basophils/100 WBC Auto (Bld) on 01-11-2024 Basophils/100 WBC (Bld) 0.4 % 0.2-2.0 [facility] Eosinophils/100 WBC Auto (Bl d)on 01-11-2024 Eosinophils/100 WBC (Bld) 0.8 % 0.9-7.0 [facility] Erythrocyte distribution wid th Auto (RBC) [Ratio]on 01-11-2024 Erythrocyte distribution width (RBC) [Ratio] 16.2 % 11.0-15.0 [facility] Estimated glomerular filtrat ion rate (GFR) non- Americanon 01-11-2024 GFR/1.73 sq M.predicted among non-blacks MDRD (S/P/Bld) [Vol rate/Area] 40 mL/min/{1.73_m2} >=60 [facility] Globulin Calc (S) [Mass/Vol] on 01-11-2024 Globulin (S) [Mass/Vol] 4.7 g/dL [facility] Hematocrit Auto (Bld) [Volum e fraction]on 01-11-2024 Hematocrit (Bld) [Volume fraction] 32.4 % 42.0-54.0 [facility] Hemoglobin [Mass/volume] in Bloodon 01-11-2024 Hemoglobin (Bld) [Mass/Vol] 10.0 g/dL 14.0-18.0 [facility] Laboratory - Chemistry and C hemistry - challengeon 01-11-2024 Albumin [Mass/Vol] 3.0 g/dL 3.4-5.0 [facility] ALP [Catalytic activity/Vol] 95 U/L 46-116 [facility] ALT [Catalytic activity/Vol] 20 U/L 16-63 [facility] AST [Catalytic activity/Vol] 13 U/L 15-37 [facility] Bilirubin [Mass/Vol] 1.9 mg/dL 0.2-1.0 [facility] Calcium [Mass/Vol] 9.0 mg/dL 8.5-10.1 [facility] Chloride [Moles/Vol] 103 mmol/L 98-107 [facility] CO2 [Moles/Vol] 27.5 mmol/L 21.0-32.0 [facility] Creatinine [Mass/Vol] 1.64 mg/dL 0.70-1.30 [facility] GFR/1.73 sq M.predicted MDRD (S/P/Bld) [Vol rate/Area] 48 mL/min/{1.73_m2} >=60 [facility] Glucose [Mass/Vol] 90 mg/dL 74-106 [facility] Natriuretic peptide B (Bld) [Mass/Vol] 3351.0 pg/mL <=1800.0 [facility] Comment on above: RESULTS CALLED TO PATY PATTON RN @BY Radha Corea at 0640 Potassium [Moles/Vol] 4.2 mmol/L 3.5-5.1 [facility] Protein [Mass/Vol] 7.7 g/dL 6.4-8.2 [facility] Sodium [Moles/Vol] 141 mmol/L 136-145 [facility] Urea nitrogen [Mass/Vol] 54.0 mg/dL 7.0-18.0 [facility] Urea nitrogen/Creatinine [Mass ratio] 32.9 mg/mg [facility] Laboratory - Hematology and Cell countson 01-11-2024 Immature granulocytes/100 WBC (Bld) 0.2 % 0.0-0.5 [facility] Leukocytes [#/volume] correc ayan for nucleated erythrocytes in Blood by Automated counon 01-11-2024 WBC corrected for nucl RBC Auto (Bld) [#/Vol] 4.8 10 3/uL 4.0-11.0 [facility] Lymphocytes Auto (Bld) [#/Vo l]on 01-11-2024 Lymphocytes (Bld) [#/Vol] 0.9 10 3/uL 1.2-3.8 [facility] Lymphocytes/100 WBC Auto (Bl d)on 01-11-2024 Lymphocytes/100 WBC (Bld) 18.6 % 20.5-60.0 [facility] MCH Auto (RBC) [Entitic mass ]on 01-11-2024 MCH (RBC) [Entitic mass] 34.0 pg 25.9-34.0 [facility] MCHC Auto (RBC) [Mass/Vol]on 01-11-2024 MCHC (RBC) [Mass/Vol] 30.9 g/dL 29.9-35.2 [facility] MCV Auto (RBC) [Entitic vol] on 01-11-2024 MCV (RBC) [Entitic vol] 110.2 fL 80.0-94.0 [facility] Monocytes Auto (Bld) [#/Vol] on 01-11-2024 Monocytes (Bld) [#/Vol] 0.7 10 3/uL 0.3-0.8 [facility] Monocytes/100 WBC Auto (Bld) on 01-11-2024 Monocytes/100 WBC (Bld) 14.9 % 1.7-12.0 [facility] Neutrophils Auto (Bld) [#/Vo l]on 01-11-2024 Neutrophils (Bld) [#/Vol] 3.1 10 3/uL 1.4-6.5 [facility] Neutrophils/100 WBC Auto (Bl d)on 01-11-2024 Neutrophils/100 WBC (Bld) 65.1 % 43.0-75.0 [facility] No Panel Informationon 01-11 Digoxin Level 1.5 ng/mL 0.9-2.0 [facility] Eosinophils # (Auto) 0.0 10 3/uL 0.0-0.7 [facility] Immature Granulocyte # (Auto) 0.01 10 3/uL 0.00-0.03 [facility] Platelet mean volume Auto (B ld) [Entitic vol]on 01-11-2024 Platelet mean volume (Bld) [Entitic vol] 11.2 fL 9.5-13.5 [facility] Platelets Auto (Bld) [#/Vol] on 01-11-2024 Platelets (Bld) [#/Vol] 71 10 3/uL 150-450 [facility] RBC Auto (Bld) [#/Vol]on RBC (Bld) [#/Vol] 2.94 10 6/uL 4.70-6.10 [facility] Serum or plasma albumin/glob ulin mass ratioon 01-11-2024 Albumin/Globulin [Mass ratio] 0.6 {ratio} [facility] Serum or plasma anion gap de terminationon 01-11-2024 Anion gap [Moles/Vol] 14.7 mmol/L Fi [facility] Basophils Auto (Bld) [#/Vol] on 01-10-2024 Basophils (Bld) [#/Vol] 0.0 10 3/uL 0.0-0.1 [facility] Basophils/100 WBC Auto (Bld) on 01-10-2024 Basophils/100 WBC (Bld) 0.3 % 0.2-2.0 [facility] Eosinophils/100 WBC Auto (Bl d)on 01-10-2024 Eosinophils/100 WBC (Bld) 1.3 % 0.9-7.0 [facility] Erythrocyte distribution wid th Auto (RBC) [Ratio]on 01-10-2024 Erythrocyte distribution width (RBC) [Ratio] 16.1 % 11.0-15.0 [facility] Estimated glomerular filtrat ion rate (GFR) non- Americanon 01-10-2024 GFR/1.73 sq M.predicted among non-blacks MDRD (S/P/Bld) [Vol rate/Area] 39 mL/min/{1.73_m2} >=60 [facility] Globulin Calc (S) [Mass/Vol] on 01-10-2024 Globulin (S) [Mass/Vol] 4.0 g/dL [facility] Hematocrit Auto (Bld) [Volum e fraction]on 01-10-2024 Hematocrit (Bld) [Volume fraction] 30.6 % 42.0-54.0 [facility] Hemoglobin [Mass/volume] in Bloodon 01-10-2024 Hemoglobin (Bld) [Mass/Vol] 9.6 g/dL 14.0-18.0 [facility] Laboratory - Chemistry and C hemistry - challengeon 01-10-2024 Albumin [Mass/Vol] 2.8 g/dL 3.4-5.0 [facility] ALP [Catalytic activity/Vol] 90 U/L 46-116 [facility] ALT [Catalytic activity/Vol] 20 U/L 16-63 [facility] AST [Catalytic activity/Vol] 12 U/L 15-37 [facility] Bilirubin [Mass/Vol] 1.6 mg/dL 0.2-1.0 [facility] Calcium [Mass/Vol] 8.9 mg/dL 8.5-10.1 [facility] Chloride [Moles/Vol] 105 mmol/L 98-107 [facility] CO2 [Moles/Vol] 27.1 mmol/L 21.0-32.0 [facility] Creatinine [Mass/Vol] 1.65 mg/dL 0.70-1.30 [facility] GFR/1.73 sq M.predicted MDRD (S/P/Bld) [Vol rate/Area] 48 mL/min/{1.73_m2} >=60 [facility] Glucose [Mass/Vol] 91 mg/dL 74-106 [facility] Natriuretic peptide B (Bld) [Mass/Vol] 2269.0 pg/mL <=1800.0 [facility] Comment on above: RESULTS CALLED TO [Aristeo PERALTA/DORIAN]@BY [place] Sam 0699 Potassium [Moles/Vol] 4.9 mmol/L 3.5-5.1 [facility] Protein [Mass/Vol] 6.8 g/dL 6.4-8.2 [facility] Sodium [Moles/Vol] 140 mmol/L 136-145 [facility] T4 [Mass/Vol] 5.20 ug/dL 4.50-12.10 [facility] Urea nitrogen [Mass/Vol] 63.0 mg/dL 7.0-18.0 [facility] Urea nitrogen/Creatinine [Mass ratio] 38.2 mg/mg [facility] Laboratory - Hematology and Cell countson 01-10-2024 Immature granulocytes/100 WBC (Bld) 0.3 % 0.0-0.5 [facility] Leukocytes [#/volume] correc ayan for nucleated erythrocytes in Blood by Automated counon 01-10-2024 WBC corrected for nucl RBC Auto (Bld) [#/Vol] 3.9 10 3/uL 4.0-11.0 [facility] Lymphocytes Auto (Bld) [#/Vo l]on 01-10-2024 Lymphocytes (Bld) [#/Vol] 0.9 10 3/uL 1.2-3.8 [facility] Lymphocytes/100 WBC Auto (Bl d)on 01-10-2024 Lymphocytes/100 WBC (Bld) 21.8 % 20.5-60.0 [facility] MCH Auto (RBC) [Entitic mass ]on 01-10-2024 MCH (RBC) [Entitic mass] 34.7 pg 25.9-34.0 [facility] MCHC Auto (RBC) [Mass/Vol]on 01-10-2024 MCHC (RBC) [Mass/Vol] 31.4 g/dL 29.9-35.2 [facility] MCV Auto (RBC) [Entitic vol] on 01-10-2024 MCV (RBC) [Entitic vol] 110.5 fL 80.0-94.0 [facility] Monocytes Auto (Bld) [#/Vol] on 01-10-2024 Monocytes (Bld) [#/Vol] 0.6 10 3/uL 0.3-0.8 [facility] Monocytes/100 WBC Auto (Bld) on 01-10-2024 Monocytes/100 WBC (Bld) 15.4 % 1.7-12.0 [facility] Neutrophils Auto (Bld) [#/Vo l]on 01-10-2024 Neutrophils (Bld) [#/Vol] 2.4 10 3/uL 1.4-6.5 [facility] Neutrophils/100 WBC Auto (Bl d)on 01-10-2024 Neutrophils/100 WBC (Bld) 60.9 % 43.0-75.0 [facility] No Panel Informationon 01-10 Digoxin Level 1.6 ng/mL 0.9-2.0 [facility] Eosinophils # (Auto) 0.1 10 3/uL 0.0-0.7 [facility] Free Triiodothyronine 1.89 pg/mL 2.18-3.98 [facility] Immature Granulocyte # (Auto) 0.01 10 3/uL 0.00-0.03 [facility] Platelet mean volume Auto (B ld) [Entitic vol]on 01-10-2024 Platelet mean volume (Bld) [Entitic vol] 11.8 fL 9.5-13.5 [facility] Platelets Auto (Bld) [#/Vol] on 01-10-2024 Platelets (Bld) [#/Vol] 66 10 3/uL 150-450 [facility] RBC Auto (Bld) [#/Vol]on RBC (Bld) [#/Vol] 2.77 10 6/uL 4.70-6.10 [facility] Serum or plasma albumin/glob ulin mass ratioon 01-10-2024 Albumin/Globulin [Mass ratio] 0.7 {ratio} [facility] Serum or plasma anion gap de terminationon 01-10-2024 Anion gap [Moles/Vol] 12.8 [facility] Basophils Auto (Bld) [#/Vol] on 01-09-2024 Basophils (Bld) [#/Vol] 0.0 10 3/uL 0.0-0.1 [facility] Basophils/100 WBC Auto (Bld) on 01-09-2024 Basophils/100 WBC (Bld) 0.3 % 0.2-2.0 [facility] Eosinophils/100 WBC Auto (Bl d)on 01-09-2024 Eosinophils/100 WBC (Bld) 1.5 % 0.9-7.0 [facility] Erythrocyte distribution wid th Auto (RBC) [Ratio]on 01-09-2024 Erythrocyte distribution width (RBC) [Ratio] 16.1 % 11.0-15.0 [facility] Estimated glomerular filtrat ion rate (GFR) non- Americanon 01-09-2024 GFR/1.73 sq M.predicted among non-blacks MDRD (S/P/Bld) [Vol rate/Area] 39 mL/min/{1.73_m2} >=60 [facility] Globulin Calc (S) [Mass/Vol] on 01-09-2024 Globulin (S) [Mass/Vol] 3.9 g/dL [facility] Hematocrit Auto (Bld) [Volum e fraction]on 01-09-2024 Hematocrit (Bld) [Volume fraction] 28.9 % 42.0-54.0 [facility] Hemoglobin [Mass/volume] in Bloodon 01-09-2024 Hemoglobin (Bld) [Mass/Vol] 9.0 g/dL 14.0-18.0 [facility] - Chemistry and C hemistry - challengeon 01-09-2024 Albumin [Mass/Vol] 2.8 g/dL 3.4-5.0 [facility] ALP [Catalytic activity/Vol] 82 U/L 46-116 [facility] ALT [Catalytic activity/Vol] 20 U/L 16-63 [facility] AST [Catalytic activity/Vol] 12 U/L 15-37 [facility] Bilirubin [Mass/Vol] 1.3 mg/dL 0.2-1.0 [facility] Calcium [Mass/Vol] 8.7 mg/dL 8.5-10.1 [facility] Chloride [Moles/Vol] 104 mmol/L 98-107 [facility] CO2 [Moles/Vol] 28.1 mmol/L 21.0-32.0 [facility] Creatinine [Mass/Vol] 1.66 mg/dL 0.70-1.30 [facility] GFR/1.73 sq M.predicted MDRD (S/P/Bld) [Vol rate/Area] 48 mL/min/{1.73_m2} >=60 [facility] Glucose [Mass/Vol] 76 mg/dL 74-106 [facility] Natriuretic peptide B (Bld) [Mass/Vol] 2379.0 pg/mL <=1800.0 [facility] Comment on above: RESULTS CALLED TO SANJUANITA CANALES/RN@BY Adeline Sam 0618 Potassium [Moles/Vol] 4.7 mmol/L 3.5-5.1 [facility] Protein [Mass/Vol] 6.7 g/dL 6.4-8.2 [facility] Sodium [Moles/Vol] 139 mmol/L 136-145 [facility] Urea nitrogen [Mass/Vol] 69.0 mg/dL 7.0-18.0 [facility] Urea nitrogen/Creatinine [Mass ratio] 41.6 mg/mg [facility] - Hematology and Cell countson 01-09-2024 Immature granulocytes/100 WBC (Bld) 0.3 % 0.0-0.5 [facility] Leukocytes [#/volume] correc ayan for nucleated erythrocytes in Blood by Automated counon 01-09-2024 WBC corrected for nucl RBC Auto (Bld) [#/Vol] 3.3 10 3/uL 4.0-11.0 [facility] Lymphocytes Auto (Bld) [#/Vo l]on 01-09-2024 Lymphocytes (Bld) [#/Vol] 0.7 10 3/uL 1.2-3.8 [facility] Lymphocytes/100 WBC Auto (Bl d)on 01-09-2024 Lymphocytes/100 WBC (Bld) 21.6 % 20.5-60.0 [facility] MCH Auto (RBC) [Entitic mass ]on 01-09-2024 MCH (RBC) [Entitic mass] 34.1 pg 25.9-34.0 [facility] MCHC Auto (RBC) [Mass/Vol]on 01-09-2024 MCHC (RBC) [Mass/Vol] 31.1 g/dL 29.9-35.2 [facility] MCV Auto (RBC) [Entitic vol] on 01-09-2024 MCV (RBC) [Entitic vol] 109.5 fL 80.0-94.0 [facility] Monocytes Auto (Bld) [#/Vol] on 01-09-2024 Monocytes (Bld) [#/Vol] 0.6 10 3/uL 0.3-0.8 [facility] Monocytes/100 WBC Auto (Bld) on 01-09-2024 Monocytes/100 WBC (Bld) 18.3 % 1.7-12.0 [facility] Neutrophils Auto (Bld) [#/Vo l]on 01-09-2024 Neutrophils (Bld) [#/Vol] 1.9 10 3/uL 1.4-6.5 [facility] Neutrophils/100 WBC Auto (Bl d)on 01-09-2024 Neutrophils/100 WBC (Bld) 58.0 % 43.0-75.0 [facility] No Panel Informationon 01-09 Eosinophils # (Auto) 0.1 10 3/uL 0.0-0.7 [facility] Immature Granulocyte # (Auto) 0.01 10 3/uL 0.00-0.03 [facility] Platelet mean volume Auto (B ld) [Entitic vol]on 01-09-2024 Platelet mean volume (Bld) [Entitic vol] 12.0 fL 9.5-13.5 [facility] Platelets Auto (Bld) [#/Vol] on 01-09-2024 Platelets (Bld) [#/Vol] 76 10 3/uL 150-450 [facility] RBC Auto (Bld) [#/Vol]on RBC (Bld) [#/Vol] 2.64 10 6/uL 4.70-6.10 [facility] Serum or plasma albumin/glob ulin mass ratioon 01-09-2024 Albumin/Globulin [Mass ratio] 0.7 {ratio} [facility] Serum or plasma anion gap de terminationon 01-09-2024 Anion gap [Moles/Vol] 11.6 mmol/L [facility] hemistry - challengeon 01-08-2024 Free T4 [Mass/Vol] 0.97 ng/dL 0.76-1.46 [facility] TSH Qn 17.442 m[IU]/L 0.358-3.740 [facility] - Microbiology an d Antimicrobial susceptibilityon 01-08-2024 S. agalactiae Org specific cx Ql (Vag fld) Not detected NOT DETECTE [facility] No Panel Informationon 01-08 Troponin I High Sensitivity 40.0 pg/mL 4.0-76.1 [facility] Comment on above: CUT-OFF POINTS HAVE [...] kaycee cmplx PCR Not detected NOT DETECTE [facility] Bacteroides fragilis (PCR) Not detected NOT DETECTE [facility] Blood Culture Source Blood [facility] Brittany albicans (PCR) Not detected NOT DETECTE [facility] Brittany auris (PCR) Not detected NOT DETECTE [facility] Brittany glabrata (PCR) Not detected NOT DETECTE [facility] Brittany krusei (PCR) Not detected NOT DETECTE [facility] Brittany parapsilosis (PCR) Not detected NOT DETECTE [facility] Brittany tropicalis (PCR) Not detected NOT DETECTE [facility] Crypto neoformans/gattii (PCR)(LAB) Not detected NOT DETECTE [facility] CTX-M ESBL (PCR) NOT APPLICABLE NOT DETECTE [facility] Enterobacter cloacae complex (PCR) Not detected NOT DETECTE [facility] Enterobacterales (PCR) Not detected NOT DETECTE [facility] Enterococcus faecalis PCR Not detected NOT DETECTE [facility] Enterococcus faecium PCR Not detected NOT DETECTE [facility] Escherichia coli Result Not detected NOT DETECTE [facility] Haemophilus influenzae DNA Not detected NOT DETECTE [facility] IMP (blaIMP) Carbap Res Gene (PCR) NOT APPLICABLE NOT DETECTE [facility] Klebsiella aerogenes (PCR) Not detected NOT DETECTE [facility] Klebsiella oxytoca (PCR) Not detected NOT DETECTE [facility] Klebsiella pneumoniae group (PCR) Not detected NOT DETECTE [facility] KPC (blaKPC) Detection (PCR) NOT APPLICABLE NOT DETECTE [facility] Listeria monocytogenes (PCR) Not detected NOT DETECTE [facility] MCR-1 Resistance Gene NOT APPLICABLE NOT DETECT E [facility] mecA/C & MREJ Antimicrob Resist Gen NOT APPLICABLE NOT DETECTE [facility] mecA/C-Methicillin Resistance Gene NOT APPLICABLE NOT DETECTE [facility] NDM (blaNDM) Detection (PCR) NOT APPLICABLE NOT DETECTE [facility] Neisseria meningitidis (PCR) Not detected NOT DETECTE [facility] Proteus species (PCR) Not detected NOT DETECTE [facility] Pseudomonas aeruginosa (PCR) Not detected NOT DETECTE [facility] Salmonella spp. (PCR) Not detected NOT DETECTE [facility] Serratia marcescens (PCR) Not detected NOT DETECTE [facility] Staphylococcus aureus (PCR)(LAB) Not detected NOT DETECTE [facility] Staphylococcus epidermidis (PCR) Not detected NOT DETECTE [facility] Staphylococcus lugdunensis (TEM-PCR Not detected NOT DETECTE [facility] Staphylococcus species (PCR) Not detected NOT DETECTE [facility] Stenotroph. maltophilia (PCR) Not detected NOT DETECTE [facility] Streptococcus pneumoniae (PCR) Not detected NOT DETECTE [facility] Streptococcus pyogenes (PCR)(LAB) Not detected NOT DETECTE [facility] Streptococcus species (PCR) Not detected NOT DETECTE [facility] Syn OXA-48-like Carb Res Gene (PCR) NOT APPLICABLE NOT DETECTE [facility] Deion/B-Vancomycin Resistance Genes NOT APPLICABLE NOT DETECTE [facility] VIM (blaVIM) Carbap Res Gene (PCR) NOT APPLICABLE NOT DETECTE [facility] No Panel InformationOrdered By: Timo Francis on 01-08-2024 Blood Culture 2 [facility] Blood Culture 1 [facility] Office Visiton 01-01-2024 Follow-up visit [id number] Samson Kelley 1935 M [facility] 01/01/2024 Arielle6-MARGARITA HERNANDEZ [facility] No family history on file Level of Service:23264 [place] OFFICE/OUTPATIENT ESTABLISHED MOD MDM 30 MIN Normal [facility] Office Visiton 04-17-2023 Follow-up visit [id number] Samson Kelley 1935 M [facility] 04/17/2023 166-JUAN LUIS CALVIN [facility] No family history on file Level of Service:88822 [place] OFFICE/OUTPATIENT NEW MODERATE MDM 45-59 MINUTES Reason for Visit and Comments: Establish Care [42] Normal [facility] Ambulatory Visit Summaryon 1 Ambulatory Visit Summary SAMSON KELLEY :1935 Visit Date:09/21/2022 Ambulatory Visit Instructions Your Diagnosis Urge incontinence History of prostate cancer Tests Performed Urnls Dip Stick Auto w/o Microscopy POC 71004 Your Care Team Attending Physician - MARYBETH [...] MERCHANT When: Only if needed Where: [address] [place] [address] [phone] Medications What How Much When Instructions Unchanged oxybutynin (oxybutynin 5 mg ER Tab) 1 Tablets By Mouth Every day Pickup at [facility] Unchanged ascorbic acid (Vitamin C) Every [...] physician if questions or concerns Pharmacy Information [facility]: [address] [place] [phone] Test Results Urnls Dip Stick Auto w/o Microscopy POC 51195 (09/21/2022) Bilirubin Urine Dipstick - Negative Blood Urine Dipstick - Negative Glucose Urine Dipstick - Negative Ketones Urine Dipstick - Negative Leukocytes Urine Dipstick - Negative Nitrite Urine Dipstick - Negative Protein Urine Dipstick - Negative Specific Pickerel Urine Dipstick - 1.015 Urine Appearance Urine [...] hematuria History of prostate cancer Hyperlipidemia 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 ? Are -Guyanese. ? Are obese. ? Have a family [...] during urination (more content not included)... Normal [facility] Ambulatory Visit Summary SAMSON KELLEY :1935 Visit Date:09/21/2022 Ambulatory Visit Instructions Your Diagnosis Urge incontinence History of prostate cancer Tests Performed Urnls Dip Stick Auto w/o Microscopy POC 21717 Your Care Team Attending Physician - MARYBETH [...] if needed Where: [address] [place] [address] [phone] Medications What How Much When Instructions Unchanged [...] Urnls Dip Stick Auto w/o Microscopy POC 69326 (09/21/2022) Bilirubin Urine Dipstick - Negative Blood Urine Dipstick - Negative Glucose Urine Dipstick - Negative Ketones Urine Dipstick - Negative Leukocytes Urine Dipstick - Negative Nitrite Urine Dipstick - Negative Protein Urine Dipstick - Negative Specific Pickerel Urine Dipstick - 1.015 Urine Appearance Urine [...] Hyperlipidemia Hypertension senior living current use of antithrombotics/anti platelets Post-void dribbling [...] Are older than age 65. ? Are -Guyanese. ? Are obese. ? Have a family [...] upper thi (more content not included)... Normal [facility] Patient Educationon 09-21-20 Patient Education Oncology Prostate [...] Are older than age 65. ? Are -Guyanese. ? Are obese. ? Have a family [...] Follow these instructions at home: ? Take yixf-zap-tvtvade and prescription medicines only as told by [...] cancer specialis (more content not included)... Normal [facility] Urology Office/Clinic Noteon 09-21-2022 Urology Office/Clinic Note [...] if needed [address] 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 Normal [facility] Comment on above: Result Comment: Elec tronically Signed By: KENNETH SHEPARD, MARYBETH Trivedi\.br\Date and Time Signed: 09/21/22 13:18 EDT CBC AUTO DIFFon 09-06-2022 BASO # 0.0 103/ul Normal 0.0-0.1 [facility] Comment on above: Performed By: #### C BC #### [facility] [address] [place] [address] Dr. Kirk García Basophils/100 WBC (Bld) 0.5 % Normal 0.2-2.0 [facility] Comment on above: Performed By: #### C BC #### [facility] [address] [place] [address] Dr. Kirk García EO # 0.1 103/ul Normal 0.0-0.7 [facility] Comment on above: Performed By: #### C BC #### [facility] [address] [place] [address] Dr. Kirk García Eosinophils/100 WBC (Bld) 1.2 % Normal 0.9-7.0 [facility] Comment on above: Performed By: #### C BC #### [facility] [address] [place] [address] Dr. Kirk García Erythrocyte distribution width (RBC) [Ratio] 14.2 % Normal 11.0-15.0 [facility] Comment on above: Performed By: #### C BC #### [facility] [address] [place] [address] Dr. Kirk García Hematocrit (Bld) [Volume fraction] 35.6 % Critically low 42.0-54.0 [facility] Comment on above: Performed By: #### C BC #### [facility] [address] [place] [address] Dr. Kirk García Hemoglobin (Bld) [Mass/Vol] 11.7 g/dL Critically low 14.0-18.0 [facility] Comment on above: Performed By: #### C BC #### [facility] [address] [place] [address] Dr. Kirk García IG # 0.04 10e3/ul Critically high 0.00-0.03 [facility] Comment on above: Performed By: #### C BC #### [facility] [address] [place] [address] Dr. Kirk García IG % 0.6 % Critically high 0.0-0.5 [facility] Comment on above: Performed By: #### C BC #### [facility] [address] [place] [address] Dr. Kirk García LYMPH # 1.7 103/ul Normal 1.2-3.8 [facility] Comment on above: Performed By: #### C BC #### [facility] [address] [place] [address] Dr. Kirk García Lymphocytes/100 WBC (Bld) 25.7 % Normal 20.5-60.0 [facility] Comment on above: Performed By: #### C BC #### [facility] [address] [place] [address] Dr. Kirk García MANUAL DIFF REQ NO Normal [facility] Comment on above: Performed By: #### C BC #### [facility] [address] [place] [address] Dr. Kirk García MCH (RBC) [Entitic mass] 34.1 pg Critically high 25.9-34.0 [facility] Comment on above: Performed By: #### C BC #### [facility] [address] [address] [address] Kirk García MCHC (RBC) [Mass/Vol] 32.9 g/dL Normal 29.9-35.2 [facility] Comment on above: Performed By: #### C BC #### [facility] [address] [place] [address] Dr. Kirk García MCV (RBC) [Entitic vol] 103.8 fL Critically high 80.0-94.0 [facility] Comment on above: Performed By: #### C BC #### [facility] [address] [place] [address] Dr. Kirk García MONO # 1.1 103/ul Critically high 0.3-0.8 [facility] Comment on above: Performed By: #### C BC #### [facility] [address] [place] [address] Dr. Kirk García Monocytes/100 WBC (Bld) 17.7 % Critically high 1.7-12.0 [facility] Comment on above: Performed By: #### C BC #### [facility] [address] [place] [address] Dr. Kirk García NEUT # 3.5 103/ul Normal 1.4-6.5 [facility] Comment on above: Performed By: #### C BC #### [facility] [address] [place] [address] Dr. Kirk García Neutrophils/100 WBC (Bld) 54.3 % Normal 43.0-75.[address] [facility] Comment on above: Performed By: #### C BC #### [facility] [address] [place] [address] Dr. Kirk García Platelet mean volume (Bld) [Entitic vol] 10.1 fL Normal 9.5-13.5 [facility] Comment on above: Performed By: #### C BC #### [facility] [address] [place] [address] Dr. Kirk García PLT 153 103/ul Normal 150-450 [facility] Comment on above: Performed By: #### C BC #### [facility] [address] [address] [address] Kirk García RBC 3.43 106/ul Critically low 4.70-6.10 [facility] Comment on above: Performed By: #### C BC #### [facility] [address] [address] [address] Kirk García WBC 6.5 103/ul Normal 4.0-11.0 [facility] Comment on above: Performed By: #### C BC #### [facility] [address] [address] [address] Kirk García PROF CHEM 8 (BAS METB)on Anion gap [Moles/Vol] 10.8 mmol/L Normal [facility] Comment on above: Performed By: #### B MP #### [facility] [address] [place] [address] Dr. Kirk García Calcium [Mass/Vol] 9.2 mg/dL Normal 8.5-10.1 [facility] Comment on above: Performed By: #### B MP #### [facility] [address] [place] [address] Dr. Kirk García Chloride [Moles/Vol] 101 mmol/L Normal 98-107 [facility] Comment on above: Performed By: #### B MP #### [facility] [address] [address] [address] Kirk García CO2 [Moles/Vol] 30.9 mmol/L Normal 21.0-32.0 [facility] Comment on above: Performed By: #### B MP #### [facility] [address] [place] [address] Dr. Kirk García Creatinine [Mass/Vol] 1.54 mg/dL Critically high 0.70-1.30 [facility] Comment on above: Performed By: #### B MP #### [facility] [address] [place] [address] Dr. Kirk García EGFR-AF TUVALUAN 52 mL/min/1.73m2 Critically low >=60 [facility] Comment on above: Performed By: #### B MP #### [facility] [address] [address] [address] Kirk García EGFR-NON AF TUVALUAN 43 mL/min/1.73m2 Critically low >=60 [facility] Comment on above: Performed By: #### B MP #### [facility] [address] [address] [address] Kirk García Glucose [Mass/Vol] 106 mg/dL Normal 74-106 [facility] Comment on above: Performed By: #### B MP #### [facility] [address] [address] [address] Kirk García Potassium [Moles/Vol] 4.7 mmol/L Normal 3.5-5.1 [facility] Comment on above: Performed By: #### B MP #### [facility] [address] [address] [address] Kirk García Sodium [Moles/Vol] 138 mmol/L Normal 136-145 [facility] Comment on above: Performed By: #### B MP #### [facility] [address] [address] [address] Kirk García Urea nitrogen [Mass/Vol] 28.0 mg/dL Critically high 7.0-18.0 [facility] Comment on above: Performed By: #### B MP #### [facility] [address] [address] [address] Kirk García Urea nitrogen/Creatinine [Mass ratio] 18.2 mg/mg Normal [facility] Comment on above: Performed By: #### B MP #### [facility] [address] [address] [address] Kirk García CBC W MANUAL DIFFon 08-15-20 22 ATYPICAL LYMPH # 1.62 103/ul Normal [facility] Comment on above: Performed By: #### U MICRO, ERUR #### [facility] [address] [address] [address] Kirk García ATYPICAL LYMPH % 12 % Normal [facility] Comment on above: Performed By: #### U MICRO, ERUR #### [facility] [address] [place] [address] Dr. Kirk García BAND # 0.1 103/ul Normal 0.0-0.3 [facility] Comment on above: Performed By: #### U MICRO, ERUR #### [facility] [address] [place] [address] Dr. Kirk García BAND % 1 % Normal 0-[address] [facility] Comment on above: Performed By: #### U MICRO, ERUR #### [facility] [address] [place] [address] Dr. Kirk García BASOM # 0.14 103/ul Critically high 0.00-0.10 [facility] Comment on above: Performed By: #### U MICRO, ERUR #### [facility] [address] [place] [address] Dr. Kirk García BASOM % 1.0 % Normal 0.2-2.0 [facility] Comment on above: Performed By: #### U MICRO, ERUR #### [facility] [address] [place] [address] Dr. Kirk García BLAST # Normal [facility] Comment on above: Performed By: #### U MICRO, ERUR #### [facility] [address] [place] [address] Dr. Kirk García BLAST % Normal [facility] Comment on above: Performed By: #### U MICRO, ERUR #### [facility] [address] [place] [address] Dr. Kirk García CORRECTED WBC Normal 4.0-11.0 [facility] Comment on above: Performed By: #### U MICRO, ERUR #### [facility] [address] [place] [address] Dr. Kirk García EOS # 0.14 103/ul Normal 0.00-0.70 [facility] Comment on above: Performed By: #### U MICRO, ERUR #### [facility] [address] [place] [address] Dr. Kirk García EOS% 1.0 % Normal 0.9-7.0 [facility] Comment on above: Performed By: #### U MICRO, ERUR #### [facility] [address] [address] [address] Kirk García HCT 40.7 % Critically low 42.0-54.0 [facility] Comment on above: Performed By: #### U MICRO, ERUR #### [facility] [address] [address] [address] Kirk García HGB 13.4 g/dl Critically low 14.0-18.0 [facility] Comment on above: Performed By: #### U MICRO, ERUR #### [facility] [address] [place] [address] Dr. Kirk García LYMPHM # 0.54 103/ul Critically low 1.20-3.80 [facility] Comment on above: Performed By: #### U MICRO, ERUR #### [facility] [address] [place] [address] Dr. Kirk García LYMPHM% 4.0 % Critically low 20.5-60.0 [facility] Comment on above: Performed By: #### U MICRO, ERUR #### [facility] [address] [place] [address] Dr. Kirk García MCH 34.2 pg Critically high 25.9-34.0 [facility] Comment on above: Performed By: #### U MICRO, ERUR #### [facility] [address] [place] [address] Dr. Kirk García MCHC 32.9 g/dl Normal 29.9-35.2 [facility] Comment on above: Performed By: #### U MICRO, ERUR #### [facility] [address] [address] [address] Kirk García MCV 103.8 fL Critically high 80.0-94.0 [facility] Comment on above: Performed By: #### U MICRO, ERUR #### [facility] [address] [address] [address] Kirk García METAMYELOCYTE # Normal [facility] Comment on above: Performed By: #### U MICRO, ERUR #### [facility] [address] [address] [address] Kirk García METAMYELOCYTE % Normal [facility] Comment on above: Performed By: #### U MICRO, ERUR #### [facility] [address] [address] [address] Kirk García MONOM# 1.08 103/ul Critically high 0.30-0.80 [facility] Comment on above: Performed By: #### U MICRO, ERUR #### [facility] [address] [address] [address] Kirk García MONOM% 8.0 % Normal 1.7-12.[address] [facility] Comment on above: Performed By: #### U MICRO, ERUR #### [facility] [address] [place] [address] Dr. Kirk García MPV 10.7 fL Normal 9.5-13.5 [facility] Comment on above: Performed By: #### U MICRO, ERUR #### [facility] [address] [address] [address] Kirk García MYELOCYTE # Normal [facility] Comment on above: Performed By: #### U MICRO, ERUR #### [facility] [address] [address] [address] Kirk García MYELOCYTE % Normal [facility] Comment on above: Performed By: #### U MICRO, ERUR #### [facility] [address] [address] [address] Kirk García NRBC Normal [facility] Comment on above: Performed By: #### U MICRO, ERUR #### [facility] [address] [address] [address] Kirk García PLT 140 103/ul Critically low 150-450 [facility] Comment on above: Performed By: #### U MICRO, ERUR #### [facility] [address] [address] [address] Kirk García RBC 3.92 106/ul Critically low 4.70-6.10 [facility] Comment on above: Performed By: #### U MICRO, ERUR #### [facility] [address] [address] [address] Kirk García RDW 14.0 % Normal 11.0-15.0 [facility] Comment on above: Performed By: #### U MICRO, ERUR #### [facility] [address] [address] [address] Kirk García SEG # 9.86 103/ul Critically high 1.40-6.50 [facility] Comment on above: Performed By: #### U MICRO, ERUR #### [facility] [address] [address] [address] Kirk García SEG % 73.0 % Normal 43.0-75.0 [facility] Comment on above: Performed By: #### U MICRO, ERUR #### [facility] [address] [place] [address] Dr. Kirk García TOXIC GRANULATION 2+ Normal [facility] Comment on above: Performed By: #### U MICRO, ERUR #### [facility] [facility] [address] [address] [address] Kirk García WBC 13.5 103/ul Critically high 4.0-11.0 [facility] Comment on above: Performed By: #### U MICRO, ERUR #### [facility] [address] [address] [address] Kirk García PROF 14(COMP METB)on 022 Albumin [Mass/Vol] 3.0 g/dL Critically low 3.4-5.0 Th [facility] Comment on above: Performed By: #### C MP #### [facility] [address] [address] [address] Kirk García Albumin/Globulin [Mass ratio] 0.8 {ratio} Normal [facility] Comment on above: Performed By: #### C MP #### [facility] [address] [address] [address] Kirk García ALP [Catalytic activity/Vol] 81 U/L Normal 46-116 [facility] Comment on above: Performed By: #### C MP #### [facility] [address] [address] [address] Kirk García ALT [Catalytic activity/Vol] 50 U/L Normal 16-63 [facility] Comment on above: Performed By: #### C MP #### [facility] [address] [address] [address] Kirk García Anion gap [Moles/Vol] 8.2 mmol/L Normal [facility] Comment on above: Performed By: #### C MP #### [facility] [address] [address] [address] Kirk García AST [Catalytic activity/Vol] 14 U/L Critically low 15-37 [facility] Comment on above: Performed By: #### C MP #### [facility] [address] [address] [address] Kirk García Bilirubin [Mass/Vol] 0.9 mg/dL Normal 0.2-1.0 [facility] Comment on above: Performed By: #### C MP #### [facility] [address] [address] [address] Kirk García Calcium [Mass/Vol] 9.3 mg/dL Normal 8.5-10.1 [facility] Comment on above: Performed By: #### C MP #### [facility] [address] [place] [address] Dr. Kirk García Chloride [Moles/Vol] 100 mmol/L Normal 98-107 [facility] Comment on above: Performed By: #### C MP #### [facility] [address] [address] [address] Kirk García CO2 [Moles/Vol] 33.1 mmol/L Critically high 21.0-32.0 [facility] Comment on above: Performed By: #### C MP #### [facility] [address] [address] [address] Kirk García Creatinine [Mass/Vol] 1.56 mg/dL Critically high 0.70-1.30 [facility] Comment on above: Performed By: #### C MP #### [facility] [address] [address] [address] Kirk García EGFR-AF TUVALUAN 51 mL/min/1.73m2 Critically low >=60 [facility] Comment on above: Performed By: #### C MP #### [facility] [address] [address] [address] Kirk García EGFR-NON AF TUVALUAN 42 mL/min/1.73m2 Critically low >=60 [facility] Comment on above: Performed By: #### C MP #### [facility] [address] [address] [address] Kirk García Globulin (S) [Mass/Vol] 3.7 g/dL Normal [facility] Comment on above: Performed By: #### C MP #### [facility] [address] [address] [address] Kirk García Glucose [Mass/Vol] 107 mg/dL Critically high 74-106 [facility] Comment on above: Performed By: #### C MP #### [facility] [address] [address] [address] Kirk García Potassium [Moles/Vol] 5.3 mmol/L Critically high 3.5-5.1 [facility] Comment on above: Performed By: #### C MP #### [facility] [address] [address] [address] Kirk García Protein [Mass/Vol] 6.7 g/dL Normal 6.4-8.2 [facility] Comment on above: Performed By: #### C MP #### [facility] [address] [address] [address] Kirk García Sodium [Moles/Vol] 136 mmol/L Normal 136-145 [facility] Comment on above: Performed By: #### C MP #### [facility] [address] [address] [address] Kirk García Urea nitrogen [Mass/Vol] 50.0 mg/dL Critically high 7.0-18.0 [facility] Comment on above: Performed By: #### C MP #### [facility] [address] [address] [address] Kirk García Urea nitrogen/Creatinine [Mass ratio] 32.1 mg/mg Normal [facility] Comment on above: Performed By: #### C MP #### [facility] [address] [place] [address] Dr. Kirk García CULTURE URINEon 08-14-2022 CULTURE URINE Culture Observations: NO GROWTH. Normal [facility] Comment on above: Performed By: #### U MICRO, ERUR #### [facility] [address] [place] [address] Dr. Kirk García ER URINE PROFILEon Bilirubin Ql (U) Negative Normal NEGATIVE [facility] Comment on above: Performed By: #### U MICRO, ERUR #### [facility] [address] [place] [address] Dr. Kirk García Clarity (U) CLEAR Normal CLEAR [facility] Comment on above: Performed By: #### U MICRO, ERUR #### [facility] [address] [place] [address] Dr. Kirk García Color (U) ORANGE Abnormal YELLOW [facility] Comment on above: Performed By: #### U MICRO, ERUR #### [facility] [address] [place] [address] Dr. Kirk GRUBBS A micrscopic examination will be performed if indicated. Normal [facility] Comment on above: Performed By: #### U MICRO, ERUR #### [facility] [address] [address] [address] Kirk García Glucose Ql (U) Negative Normal NEGATIVE The [facility] Comment on above: Performed By: #### U MICRO, ERUR #### [facility] [address] [place] [address] Dr. Kirk García Hemoglobin Ql (U) LARGE Abnormal NEGATIVE The [facility] Comment on above: Performed By: #### U MICRO, ERUR #### [facility] [address] [place] [address] Dr. Kirk García Ketones Ql (U) TRACE Abnormal NEGATIVE [facility] Comment on above: Performed By: #### U MICRO, ERUR #### [facility] [address] [address] [address] Kirk García LEUKOCYTES MODERATE Abnormal NEGATIVE [facility] Comment on above: Performed By: #### U MICRO, ERUR #### [facility] [address] [address] [address] Kirk García Nitrite Ql (U) Negative Normal NEGATIVE [facility] Comment on above: Performed By: #### U MICRO, ERUR #### [facility] [address] [address] [address] Kirk García pH (U) 5.5 [pH] Normal 5-[address] [facility] Comment on above: Performed By: #### U MICRO, ERUR #### [facility] [address] [place] [address] Dr. Kirk García Protein (U) [Mass/Vol] 100 mg/dL Abnormal NEGAT DANYELL/ TRACE [facility] Comment on above: Performed By: #### U MICRO, ERUR #### [facility] [address] [address] [address] Kirk García SPEC GRAVITY 1.025 Normal 1.005-<=1.02 [address] [facility] Comment on above: Performed By: #### U MICRO, ERUR #### [facility] [address] [place] [address] Dr. Kirk García UR MICRO IND INDICATED Normal [facility] Comment on above: Performed By: #### U MICRO, ERUR #### [facility] [address] [address] [address] Kirk García Urobilinogen Qn (U) 1.0 {Ryan'U}/dL Normal 0.2 - 1. [address] [facility] Comment on above: Performed By: #### U MICRO, ERUR #### [facility] [address] [place] [address] Dr. Kirk García URINE MICROSCOPIC ONLYon BACTERIA SMALL Abnormal NONE SEEN [facility] Comment on above: Performed By: #### U MICRO, ERUR #### [facility] [address] [address] [address] Kirk García Bacteria identified Cx Nom (U) INDICATED Normal [facility] Comment on above: Performed By: #### U MICRO, ERUR #### [facility] [address] [place] [address] Dr. Kirk García CAST NONE SEEN Normal NONE SEEN [facility] Comment on above: Performed By: #### U MICRO, ERUR #### [facility] [address] [address] [address] Kirk García Crystals LM Nom (Urine sed) NONE SEEN Normal NONE SEEN [facility] Comment on above: Performed By: #### U MICRO, ERUR #### [facility] [address] [place] [address] Dr. Kirk García Epithelial cells LM Ql (Urine sed) RARE Normal NONE SEEN /RARE [facility] Comment on above: Performed By: #### U MICRO, ERUR #### [facility] [address] [place] [address] Dr. Kirk García MUCOUS NONE SEEN Normal NONE SEEN [facility] Comment on above: Performed By: #### U MICRO, ERUR #### [facility] [address] [place] [address] Dr. Kirk García RBC 75-100 Abnormal 0-[address] [facility] Comment on above: Performed By: #### U MICRO, ERUR #### [facility] [address] [place] [address] Dr. Kirk García WBC 50-75 Abnormal NONE SEEN [facility] Comment on above: Performed By: #### U MICRO, ERUR #### [facility] [address] [place] [address] Dr. Kirk García XR KNEE WILBER 4V [...] Date: 2022-08-14 21:09 Normal [facility] CBC W MANUAL DIFFon 08-04-20 22 ATYPICAL LYMPH # Normal [facility] Comment on above: Performed By: #### C CHRISTOPHER #### [facility] [address] [place] [address] Dr. Kirk García ATYPICAL LYMPH % Normal [facility] Comment on above: Performed By: #### C CHRISTOPHER #### [facility] [address] [place] [address] Dr. Kirk García BAND # 0.0 103/ul Normal 0.0-0.[address] [facility] Comment on above: Performed By: #### C CHRISTOPHER #### [facility] [address] [place] [address] Dr. Kirk García BAND % 1 % Normal 0-[address] [facility] Comment on above: Performed By: #### C CHRISTOPHER #### [facility] [address] [place] [address] Dr. Kirk García BASOM # 0.00 103/ul Normal 0.00-0.[address] [facility] Comment on above: Performed By: #### C CHRISTOPHER #### [facility] [address] [place] [address] Dr. Kirk García BASOM % 0.0 % Critically low 0.2-2.0 [facility] Comment on above: Performed By: #### C CHRISTOPHER #### [facility] [address] [place] [address] Dr. Kirk García BLAST # Normal [facility] Comment on above: Performed By: #### C CHRISTOPHER #### [facility] [address] [place] [address] Dr. Kirk García BLAST % Normal [facility] Comment on above: Performed By: #### C CHRISTOPHER #### [facility] [address] [place] [address] Dr. Kirk García CORRECTED WBC Normal 4.0-11.0 The [facility] Comment on above: Performed By: #### C BCLEILA #### [facility] [address] [address] [address] Kirk García EOS # 0.00 103/ul Normal 0.00-0.70 [facility] Comment on above: Performed By: #### C CHRISTOPHER #### [facility] [address] [address] [address] Kirk García EOS% 0.0 % Critically low 0.9-7.0 [facility] Comment on above: Performed By: #### C CHRISTOPHER #### [facility] [address] [address] [address] Kirk García HCT 31.0 % Critically low 42.0-54.0 [facility] Comment on above: Performed By: #### C CHRISTOPHER #### [facility] [address] [address] [address] Kirk García HGB 10.5 g/dl Critically low 14.0-18.0 [facility] Comment on above: Performed By: #### C CHRISTOPHER #### [facility] [address] [address] [address] Kirk García LYMPHM # 0.31 103/ul Critically low 1.20-3.80 [facility] Comment on above: Performed By: #### C CHRISTOPHER #### [facility] [address] [address] [address] Kirk García LYMPHM% 11.0 % Critically low 20.5-60.0 [facility] Comment on above: Performed By: #### C CHRISTOPHER #### [facility] [address] [address] [address] Kirk García MCH 34.2 pg Critically high 25.9-34.0 The [facility] Comment on above: Performed By: #### C CHRISTOPHER #### [facility] [address] [address] [address] Kirk García MCHC 33.9 g/dl Normal 29.9-35.2 [facility] Comment on above: Performed By: #### C CHRISTOPHER #### [facility] [address] [place] [address] Dr. Kirk García MCV 101.0 fL Critically high 80.0-94.0 [facility] Comment on above: Performed By: #### C CHRISTOPHER #### [facility] [address] [place] [address] Dr. Kirk García METAMYELOCYTE # 0.1 103/ul Normal [facility] Comment on above: Performed By: #### C CHRISTOPHER #### [facility] [address] [place] [address] Dr. Kirk García METAMYELOCYTE % 2 % Normal [facility] Comment on above: Performed By: #### C CHRISTOPHER #### [facility] [address] [place] [address] Dr. Kirk García MONOM# 0.03 103/ul Critically low 0.30-0.80 [facility] Comment on above: Performed By: #### C CHRISTOPHER #### [facility] [address] [place] [address] Dr. Kirk García MONOM% 1.0 % Critically low 1.7-12.0 [facility] Comment on above: Performed By: #### C CHRISTOPHER #### [facility] [address] [place] [address] Dr. Kirk García MPV 10.7 fL Normal 9.5-13.5 [facility] Comment on above: Performed By: #### C CHRISTOPHER #### [facility] [address] [place] [address] Dr. Kirk García MYELOCYTE # 0.0 103/ul Normal [facility] Comment on above: Performed By: #### C CHRISTOPHER #### [facility] [address] [place] [address] Dr. Kirk García MYELOCYTE % 1 % Normal [facility] Comment on above: Performed By: #### C CHRISTOPHER #### [facility] [address] [place] [address] Dr. Kirk García NRBC Normal [facility] Comment on above: Performed By: #### C CHRISTOPHER #### [facility] [address] [address] [address] Kirk García PLT 84 103/ul Critically low 150-450 [facility] Comment on above: Performed By: #### [place]ene WHITE #### [facility] [address] [address] [address] Kirk García RBC 3.07 106/ul Critically low 4.70-6.10 [facility] Comment on above: Performed By: #### [place] WHITE #### [facility] [address] [address] [address] Kirk García RDW 13.3 % Normal 11.0-15.0 [facility] Comment on above: Performed By: #### [place] WHITE #### [facility] [address] [address] [address] Kirk García SEG # 2.35 103/ul Normal 1.40-6.50 [facility] Comment on above: Performed By: #### [place]ene WHITE #### [facility] [address] [address] [address] Kirk García SEG % 84.0 % Critically high 43.0-75.0 [facility] Comment on above: Performed By: #### [place]ene WHITE #### [facility] [address] [address] [address] Kirk García WBC 2.8 103/ul Critically low 4.0-11.0 [facility] Comment on above: Performed By: #### [place] WHITE #### [facility] [address] [place] [address] Dr. Kirk García PROF CHEM 8 (BAS METB)on Anion gap [Moles/Vol] 9.9 mmol/L Normal [facility] Comment on above: Performed By: #### U MICRO, ERUR #### [facility] [address] [address] [address] Kirk García Calcium [Mass/Vol] 7.4 mg/dL Critically low 8.5-10.1 Th [facility] Comment on above: Performed By: #### U MICRO, ERUR #### [facility] [address] [address] [address] Kirk García Chloride [Moles/Vol] 100 mmol/L Normal 98-107 [facility] Comment on above: Performed By: #### U MICRO, ERUR #### [facility] [address] [address] [address] Kirk García CO2 [Moles/Vol] 23.8 mmol/L Normal 21.0-32.0 [facility] Comment on above: Performed By: #### U MICRO, ERUR #### [facility] [address] [address] [address] Kirk García Creatinine [Mass/Vol] 1.43 mg/dL Critically high 0.70-1.30 [facility] Comment on above: Performed By: #### U MICRO, ERUR #### [facility] [address] [address] [address] Kirk García EGFR-AF TUVALUAN 57 mL/min/1.73m2 Critically low >=60 [facility] Comment on above: Performed By: #### U MICRO, ERUR #### [facility] [address] [address] [address] Kirk García EGFR-NON AF TUVALUAN 47 mL/min/1.73m2 Critically low >=60 [facility] Comment on above: Performed By: #### U MICRO, ERUR #### [facility] [address] [address] [address] Kirk García Glucose [Mass/Vol] 148 mg/dL Critically high 74-106 [facility] Comment on above: Performed By: #### U MICRO, ERUR #### [facility] [address] [address] [address] Kirk García Potassium [Moles/Vol] 4.7 mmol/L Normal 3.5-5.1 [facility] Comment on above: Performed By: #### U MICRO, ERUR #### [facility] [address] [address] [address] Kirk García Sodium [Moles/Vol] 129 mmol/L Critically low 136-145 Th [facility] Comment on above: Performed By: #### U MICRO, ERUR #### [facility] [address] [place] [address] Dr. Kirk García Urea nitrogen [Mass/Vol] 42.0 mg/dL Critically high 7.0-18.0 [facility] Comment on above: Performed By: #### U MICRO, ERUR #### [facility] [address] [place] [address] Dr. Kirk García Urea nitrogen/Creatinine [Mass ratio] 29.4 mg/mg Normal [facility] Comment on above: Performed By: #### U MICRO, ERUR #### [facility] [address] [place] [address] Dr. Kirk García CBC AUTO DIFFon 08-03-2022 BASO # 0.0 103/ul Normal 0.0-0.1 [facility] Comment on above: Performed By: #### C BC #### [facility] [address] [place] [address] Dr. Kirk García Basophils/100 WBC (Bld) 0.0 % Critically low 0.2-2.0 [facility] Comment on above: Performed By: #### C BC #### [facility] [address] [place] [address] Dr. Kirk García EO # 0.0 103/ul Normal 0.0-0.7 [facility] Comment on above: Performed By: #### C BC #### [facility] [address] [place] [address] Dr. Kirk García Eosinophils/100 WBC (Bld) 0.2 % Critically low 0.9-7.0 [facility] Comment on above: Performed By: #### C BC #### [facility] [address] [place] [address] Dr. Kirk García Erythrocyte distribution width (RBC) [Ratio] 13.7 % Normal 11.0-15.0 [facility] Comment on above: Performed By: #### C BC #### [facility] [address] [place] [address] Dr. Kirk García Hematocrit (Bld) [Volume fraction] 34.3 % Critically low 42.0-54.0 [facility] Comment on above: Performed By: #### C BC #### [facility] [address] [address] [address] Kirk García Hemoglobin (Bld) [Mass/Vol] 11.8 g/dL Critically low 14.0-18.0 [facility] Comment on above: Performed By: #### C BC #### [facility] [address] [address] [address] Kirk García IG # 0.02 10e3/ul Normal 0.00-0.03 [facility] Comment on above: Performed By: #### C BC #### [facility] [address] [place] [address] Dr. Kirk García IG % 0.4 % Normal 0.0-0.5 [facility] Comment on above: Performed By: #### C BC #### [facility] [address] [place] [address] Dr. Kirk García LYMPH # 0.9 103/ul Critically low 1.2-3.8 [facility] Comment on above: Performed By: #### C BC #### [facility] [address] [place] [address] Dr. Kirk García Lymphocytes/100 WBC (Bld) 16.5 % Critically low 20.5-60.0 [facility] Comment on above: Performed By: #### C BC #### [facility] [address] [place] [address] Dr. Kirk García MANUAL DIFF REQ NO Normal [facility] Comment on above: Performed By: #### C BC #### [facility] [address] [place] [address] Dr. Kirk García MCH (RBC) [Entitic mass] 34.4 pg Critically high 25.9-34.0 [facility] Comment on above: Performed By: #### C BC #### [facility] [address] [place] [address] Dr. Kirk García MCHC (RBC) [Mass/Vol] 34.4 g/dL Normal 29.9-35.2 [facility] Comment on above: Performed By: #### C BC #### [facility] [address] [address] [address] Kirk García MCV (RBC) [Entitic vol] 100.0 fL Critically high 80.0-94.0 [facility] Comment on above: Performed By: #### C BC #### [facility] [address] [address] [address] Kirk García MONO # 1.2 103/ul Critically high 0.3-0.8 [facility] Comment on above: Performed By: #### C BC #### [facility] [address] [address] [address] Kirk García Monocytes/100 WBC (Bld) 22.3 % Critically high 1.7-12.0 [facility] Comment on above: Performed By: #### C BC #### [facility] [address] [address] [address] Kirk García NEUT # 3.4 103/ul Normal 1.4-6.5 [facility] Comment on above: Performed By: #### C BC #### [facility] [address] [address] [address] Kirk García Neutrophils/100 WBC (Bld) 60.6 % Normal 43.0-75.0 [facility] Comment on above: Performed By: #### C BC #### [facility] [address] [address] [address] Kirk García Platelet mean volume (Bld) [Entitic vol] 11.6 fL Normal 9.5-13.5 [facility] Comment on above: Performed By: #### C BC #### [facility] [address] [address] [address] Kirk García PLT 99 103/ul Critically low 150-450 [facility] Comment on above: Performed By: #### C BC #### [facility] [address] [place] [address] Dr. Kirk García RBC 3.43 106/ul Critically low 4.70-6.10 [facility] Comment on above: Performed By: #### C BC #### [facility] [address] [place] [address] Dr. Kirk García WBC 5.5 103/ul Normal 4.0-11.0 [facility] Comment on above: Performed By: #### C BC #### [facility] [address] [place] [address] Dr. Kirk García CULTURE BLOODon 08-03-2022 Microscopic examination of blood, culture Culture Observations: NO GROWTH AT 5 DAYS. Normal [facility] Comment on above: Performed By: #### U MICRO, ERUR #### [facility] [address] [place] [address] Dr. Kirk García Microscopic examination of blood, culture Culture Observations: NO GROWTH AT 5 DAYS. Normal [facility] Comment on above: Performed By: #### U MICRO, ERUR #### [facility] [address] [place] [address] Dr. Kirk García Covid-19 PCR (CVDTB)on SARS-CoV-2 (COVID-19) RNA SANAZ+probe Ql (Unsp spec) Detected Critically abnormal NOT DETECTED [facility] Comment on above: Result Comment: This test is not yet approved or cleared by the [place] FDA. When there are no FDA-approved or cleared tests available, and other criteria are met, FDA can make tests available under an emergency access mechanism called an Emergency Use Authorization (EUA). The EUA for this test is supported by the [place] of Health and Human Service's declaration that [...] By: #### C VDTBH #### [facility] [address] [place] [address] Dr. Kirk García GROUP A STREP CULTUREon S. pyogenes Ag Ql (Unsp spec) Culture Observations: NEGATIVE FOR GROUP A STREPTOCOCCUS. Normal [facility] Comment on above: Performed By: #### U MICRO, ERUR #### [facility] [address] [place] [address] [address] Kirk García PROF 14(COMP METB)on 022 Albumin [Mass/Vol] 3.0 g/dL Critically low 3.4-5.0 [facility] Comment on above: Performed By: #### C MP #### [facility] [address] [place] [address] Dr. Kirk García Albumin/Globulin [Mass ratio] 0.7 {ratio} Normal [facility] Comment on above: Performed By: #### C MP #### [facility] [address] [place] [address] Dr. Kirk García ALP [Catalytic activity/Vol] 76 U/L Normal 46-116 [facility] Comment on above: Performed By: #### C MP #### [facility] [address] [place] [address] Dr. Kirk García ALT [Catalytic activity/Vol] 27 U/L Normal 16-63 [facility] Comment on above: Performed By: #### C MP #### [facility] [address] [place] [address] Dr. Kirk García Anion gap [Moles/Vol] 8.9 mmol/L Normal [facility] Comment on above: Performed By: #### C MP #### [facility] [address] [place] [address] Dr. Kirk García AST [Catalytic activity/Vol] 17 U/L Normal 15-37 [facility] Comment on above: Performed By: #### C MP #### [facility] [address] [place] [address] Dr. Kirk García Bilirubin [Mass/Vol] 1.3 mg/dL Critically high 0.2-1.0 [facility] Comment on above: Performed By: #### C MP #### [facility] [address] [place] [address] Dr. Kirk García Calcium [Mass/Vol] 8.1 mg/dL Critically low 8.5-10.1 Th [facility] Comment on above: Performed By: #### C MP #### [facility] [address] [place] [address] [address] Kirk García Chloride [Moles/Vol] 94 mmol/L Critically low 98-107 [facility] Comment on above: Performed By: #### C MP #### [facility] [address] [place] [address] [address] Kirk García CO2 [Moles/Vol] 27.5 mmol/L Normal 21.0-32.0 [facility] Comment on above: Performed By: #### C MP #### [facility] [address] [place] [address] [address] Kirk García Creatinine [Mass/Vol] 1.65 mg/dL Critically high 0.70-1.30 [facility] Comment on above: Performed By: #### C MP #### [facility] [address] [place] [address] [address] Kirk García EGFR-AF TUVALUAN 48 mL/min/1.73m2 Critically low >=60 [facility] Comment on above: Performed By: #### C MP #### [facility] [address] [place] [address] [address] Kirk García EGFR-NON AF TUVALUAN 40 mL/min/1.73m2 Critically low >=60 [facility] Comment on above: Performed By: #### C MP #### [facility] [address] [place] [address] [address] Kirk García Globulin (S) [Mass/Vol] 4.5 g/dL Normal [facility] Comment on above: Performed By: #### C MP #### [facility] [address] [place] [address] [address] Kirk García Glucose [Mass/Vol] 118 mg/dL Critically high 74-106 [facility] Comment on above: Performed By: #### C MP #### [facility] [address] [place] [address] [address] Kirk García Potassium [Moles/Vol] 4.4 mmol/L Normal 3.5-5.1 [facility] Comment on above: Performed By: #### C MP #### [facility] [address] [place], [place] [address] Dr. Kirk García Protein [Mass/Vol] 7.5 g/dL Normal 6.4-8.2 [facility] Comment on above: Performed By: #### C MP #### [facility] [address] [place], [place] [address] Dr. Kirk García Sodium [Moles/Vol] 126 mmol/L Critically low 136-145 Th [facility] Comment on above: Performed By: #### C MP #### [facility] [address] [place], [place] [address] Dr. Kirk García Urea nitrogen [Mass/Vol] 36.0 mg/dL Critically high 7.0-18.0 [facility] Comment on above: Performed By: #### C MP #### [facility] [address] [place] [address] [address] Kirk García Urea nitrogen/Creatinine [Mass ratio] 21.8 mg/mg Normal [facility] Comment on above: Performed By: #### C MP #### [facility] [address] [place], [place] [address] Dr. Kirk García STREPT SCREENon 08-03-2022 STREP SCREEN A Negative Normal NEGATIVE [facility] Comment on above: Performed By: #### U MICRO, ERUR #### [facility] [address] [place], [place] [address] Dr. Kirk García XR CHEST 1 Von [...] Date: 2022-08-03 12:55 Normal [facility] CBC AUTO DIFFon 07-08-2022 BASO # 0.0 103/ul Normal 0.0-0.1 [facility] Comment on above: Performed By: #### C BC #### [facility] [address] [place] [address] [address] Kirk García Basophils/100 WBC (Bld) 0.5 % Normal 0.2-2.[address] [facility] Comment on above: Performed By: #### C BC #### [facility] [address] [place] [address] [address] Kirk García EO # 0.1 103/ul Normal 0.0-0.[address] [facility] Comment on above: Performed By: #### C BC #### [facility] [address] [place] [address] Dr. Kirk García Eosinophils/100 WBC (Bld) 1.4 % Normal 0.9-7.0 [facility] Comment on above: Performed By: #### C BC #### [facility] [address] [place] [address] [address] Kirk García Erythrocyte distribution width (RBC) [Ratio] 13.4 % Normal 11.0-15.0 [facility] Comment on above: Performed By: #### C BC #### [facility] [address] [place] [address] Dr. Kirk García Hematocrit (Bld) [Volume fraction] 39.6 % Critically low 42.0-54.0 [facility] Comment on above: Performed By: #### C BC #### [facility] [address] [place] [address] [address] Kirk García Hemoglobin (Bld) [Mass/Vol] 13.2 g/dL Critically low 14.0-18.0 [facility] Comment on above: Performed By: #### C BC #### [facility] [address] [place] [address] Dr. Kirk García IG # 0.02 10e3/ul Normal 0.00-0.[address] [facility] Comment on above: Performed By: #### C BC #### [facility] [address] [place] [address] Dr. Kirk García IG % 0.3 % Normal 0.0-0.5 [facility] Comment on above: Performed By: #### C BC #### [facility] [address] [place] [address] Dr. Kirk García LYMPH # 1.7 103/ul Normal 1.2-3.[address] [facility] Comment on above: Performed By: #### C BC #### [facility] [address] [place] [address] Dr. Kirk García Lymphocytes/100 WBC (Bld) 28.7 % Normal 20.5-60.[address] [facility] Comment on above: Performed By: #### C BC #### [facility] [address] [place] [address] Dr. Kirk García MANUAL DIFF REQ NO Normal [facility] Comment on above: Performed By: #### C BC #### [facility] [address] [place] [address] Dr. Kirk García MCH (RBC) [Entitic mass] 34.4 pg Critically high 25.9-34.0 [facility] Comment on above: Performed By: #### C BC #### [facility] [address] [place] [address] Dr. Kirk García MCHC (RBC) [Mass/Vol] 33.3 g/dL Normal 29.9-35.[address] [facility] Comment on above: Performed By: #### C BC #### [facility] [address] [place] [address] Dr. Kirk García MCV (RBC) [Entitic vol] 103.1 fL Critically high 80.0-94.[address] [facility] Comment on above: Performed By: #### C BC #### [facility] [address] [place] [address] Dr. Kirk García MONO # 0.9 103/ul Critically high 0.3-0.8 [facility] Comment on above: Performed By: #### C BC #### [facility] [address] [place] [address] Dr. Kirk García Monocytes/100 WBC (Bld) 15.8 % Critically high 1.7-12.0 [facility] Comment on above: Performed By: #### C BC #### [facility] [address] [place] [address] Dr. Kirk García NEUT # 3.1 103/ul Normal 1.4-6.5 [facility] Comment on above: Performed By: #### C BC #### [facility] [address] [place] [address] Dr. Kirk García Neutrophils/100 WBC (Bld) 53.3 % Normal 43.0-75.[address] [facility] Comment on above: Performed By: #### C BC #### [facility] [address] [place] [address] Dr. Kirk García Platelet mean volume (Bld) [Entitic vol] 10.6 fL Normal 9.5-13.[address] [facility] Comment on above: Performed By: #### C BC #### [facility] [address] [place] [address] Dr. Kirk García PLT 147 103/ul Critically low 150-450 [facility] Comment on above: Performed By: #### C BC #### [facility] [address] [place] [address] Dr. Kirk García RBC 3.84 106/ul Critically low 4.70-6.10 [facility] Comment on above: Performed By: #### C BC #### [facility] [address] [place] [address] Dr. Kirk García WBC 5.9 103/ul Normal 4.0-11.[address] [facility] Comment on above: Performed By: #### C BC #### [facility] [address] [place] [address] Dr. Kirk García DIGOXINon 07-08-2022 DIG 1.1 ng/mL Normal 0.9-2.[address] [facility] Comment on above: Performed By: #### U MICRO, ERUR #### [facility] [address] [place] [address] Dr. Kirk García PROF CHEM 8 (BAS METB)on Anion gap [Moles/Vol] 13.6 mmol/L Normal Th [facility] Comment on above: Performed By: #### U MICRO, ERUR #### [facility] [address] [place] [address] [address] Kirk García Calcium [Mass/Vol] 9.5 mg/dL Normal 8.5-10.1 [facility] Comment on above: Performed By: #### U MICRO, ERUR #### [facility] [address] [place] [address] [address] Kirk García Chloride [Moles/Vol] 97 mmol/L Critically low 98-107 [facility] Comment on above: Performed By: #### U MICRO, ERUR #### [facility] [address] [place] [address] [address] Kirk García CO2 [Moles/Vol] 28.8 mmol/L Normal 21.0-32.0 [facility] Comment on above: Performed By: #### U MICRO, ERUR #### [facility] [address] [place] [address] [address] Kirk García Creatinine [Mass/Vol] 1.43 mg/dL Critically high 0.70-1.30 [facility] Comment on above: Performed By: #### U MICRO, ERUR #### [facility] [address] [place] [address] [address] Kirk García EGFR-AF TUVALUAN 57 mL/min/1.73m2 Critically low >=[address] [facility] Comment on above: Performed By: #### U MICRO, ERUR #### [facility] [address] [place] [address] [address] Kirk García EGFR-NON AF TUVALUAN 47 mL/min/1.73m2 Critically low >=60 [facility] Comment on above: Performed By: #### U MICRO, ERUR #### [facility] [address] [place] [address] [address] Kirk García Glucose [Mass/Vol] 99 mg/dL Normal 74-106 [facility] Comment on above: Performed By: #### U MICRO, ERUR #### [facility] [address] [place] [address] [address] Kirk García Potassium [Moles/Vol] 4.4 mmol/L Normal 3.5-5.1 [facility] Comment on above: Performed By: #### U MICRO, ERUR #### [facility] [address] [place] [address] [address] Kirk García Sodium [Moles/Vol] 135 mmol/L Critically low 136-145 Th [facility] Comment on above: Performed By: #### U MICRO, ERUR #### [facility] [address] [place] [address] [address] Kirk García Urea nitrogen [Mass/Vol] 29.0 mg/dL Critically high 7.0-18.0 [facility] Comment on above: Performed By: #### U MICRO, ERUR #### [facility] [address] [place] [address] [address] Kirk García Urea nitrogen/Creatinine [Mass ratio] 20.3 mg/mg Normal [facility] Comment on above: Performed By: #### U MICRO, ERUR #### [facility] [address] [place] [address] Dr. Kirk García Patient Educationon 03-16-20 Patient [...] Are older than age 65. ? Are -Guyanese. ? Are obese. ? Have a family [...] Follow these instructions at home: ? Take fsqz-rzv-mizppgi and prescription medicines only as told by [...] cancer specialis (more content not included)... Normal [facility] Office/Clinic Noteon 03-16-2022 Urology Office/Clinic Note [...] E&M of Est. Patient Moderate 30-39 Min 49591 Measure Post Void residual urine and/or bladder capacity by US- non-imaging 51045 Urnls Dip Stick Auto w/o Microscopy POC 58845 2. History of prostate cancer (Z85.46: Personal history of malignant neoplasm of prostate) s/p brachytherapy in 2004. PSA remained very low. pt decided to have PCP do annual monitoring when he saw PRW March 2021. Ordered: E&M of Est. Patient Moderate 30-39 Min 41298 Measure Post Void residual urine and/or bladder capacity by US- non-imaging 78163 Urnls Dip Stick Auto w/o Microscopy POC 43791 Orders: oxybutynin, 5 mg = 1 tab(s), Oral, Daily, # 90 tab(s), Refills(s) 3, Pharmacy: [facility], 183, cm, 03/16/22 9:10:00 EDT, Height/Length Dosing, 99.3, kg, 03/16/22 9:10:00 EDT, Weight Dosing Follow-up With When Contact Information KENNETH SHEPARD, MARYBETH Trivedi, URL Within 6 months [address] 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 Normal [facility] Comment on above: Result Comment: Elec krisally [...] Are older than age 65. ? Are -[place]. ? Are obese. ? Have a family [...] Follow these instructions at home: ? Take llgz-xtl-hjfewmq and prescription medicines only as told by [...] cancer specialis (more content not included)... Normal [facility] Office/Clinic Noteon 01-06-2022 Urology Office/Clinic Note [...] worsen Ordered: Office Visit Level 4 Est 87019 2. History of prostate cancer (Z85.46: Personal history of malignant neoplasm of prostate) s/p brachytherapy in 2004. PSA remained very low. pt decided to have PCP do annual monitoring when he saw PRW at last visit March 2021. Ordered: Office Visit Level 4 Est 52617 Orders: Urnls Dip Stick Auto w/o Microscopy POC 14885 Total time spent reviewing previous notes/results/leather stamper al documents, preparing the chart, conducting the encounter with the patient and family, ordering tests/medications, and documenting the encounter was 40 minutes. 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 Normal [facility] Comment on above: Result Comment: Elec tronically Signed By: MARYBETH STANLEY PA-C.lisa\Date and Time Signed: 01/06/22 16:55 EST [place] 07-29-2021 MANOJ Telephone ([employer]) SAMSON KELLEY ([id number]) 1935 M Date Time Provider Department 07/29/21 DALILA BALL During your visit today, we recorded the following information about you: Dalila Ball RN 07/29/2021 10:36 AM Signed Spoke with Samson, he is currently still at the hotel and is planning on going to the [facility]. We discussed pain control and did remind patient use of Aleve or Motrin in between narcotics as the narcotics can increase issues with constipation. We did discuss use of Miralax if no Bm by Monday and patients states [facility] will help him with that. Encouraged to keep up with water intake especially since no appetite today. 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 [8505] Cmt: post-op Prescriptions as of 07/29/2021 - [...] Encounter Status:Closed by DALILA BALL on 07/29/21 [facility] ANES POSTPROC EVALon 021 ANES POSTPROC EVAL HNO ID: [id number] Author: Ramiro Esquivel MD Service: Anesthesiology Author [...] July 28, 2021 TIME: 1:35 PM CSN: [id number] [facility] ANES PRE-OPon 07-28-2021 ANES PRE-OP HNO ID: [id number] Author: Ramiro Esquivel MD Service: Anesthesiology Author [...] 100 mL Vial-Bag (UNASYN) 3 g INTRAVENOUS [employer] Systems Test Engineer to OR - [COMPLETED] acetaminophen 1,000 mg [...] July 28, 2021 TIME: 10:17 AM CSN: [id number] [facility] HISTORY PHYSICALon HISTORY PHYSICAL HNO ID: [id number] Author: Jewel Cary III, MD Service: General [...] DATE: July 28, 2021 TIME: 10:16 AM [facility] OPERATIVE NOon 07-28-2021 OPERATIVE NO HNO ID: [id number] Author: Jewel Cary III, MD Service: General Surgery Author Type: Physician Type: Operative Report Filed: 07/28/2021 11:24 AM Note Text: OPERATIVE REPORT LOG ID: [id number] SURGERY/PROCEDURE DATE: 07/28/2021 INCISION/PROCEDURE START TIME: 10:47 AM INCISION CLOSE/PROCEDURE END TIME: 11:24 AM SURGEON: Jewel Cary III, MD ?? BAIT MAN: Monserrat Salazar PA-C? ? OPERATION: Laparoscopic cholecystectomy (55401). ? ANESTHESIA: GETA and 10 mL of [...] July 28, 2021 TIME: 11:22 AM Normal [facility] SURGICAL PATHOLOGYon 021 SURGICAL PATHOLOGY Specimen originated from [facility] Specimen #: [id number] Submitting Physician: JEWEL CARY MD FINAL DIAGNOSIS [...] The mucosa is walker-red, hyperemic, and granular. Head Refrigerating Engineer sections are submitted as follows: A1 cystic duct margin and wall, A2 fundus. SLE/ch 07/28/2021 Gross examination performed at [facility], [address] [place] [address] Date of Report: 07/29/2021 Date of Procedure: 07/28/2021 Date of Receipt: 07/28/2021 Submitted by: JEWEL CARY MD Location: [facility] Diagnostic interpretation performed at [facility], [facility] [place] [address]. CLIA Number: [id number] Normal [facility] Comment on above: Performed By: #### S #### See report for performing lab information. HISTORY PHYSICALon HISTORY PHYSICAL HNO ID: [id number] Author: Denita Simmons PA-C Service: ? Author Type: Physician Signal Operator Linguist Type: HANDP Filed: 07/19/2021 4:18 PM Note [...] in November 2019. He was admitted to [facility] due to Y[place] cystitis. Providers [...] 20's - PACEMAKER 2006 - PACEMAKER 01/2021 [employer] placed - PAST SURGICAL HISTORY OF [...] fevers. Neuro: No history of TIA's, stroke, [employer] tumor, impaired sensorium, hemiplegia, paraplegia or quadraplegia. No neurological symptoms or problems. Respiratory: Negative for Asthma, Dyspnea, Tobacco Use, URI < 2 weeks +PND - can rarely trigger cough, but stable, no acute symptoms Cardiovascular: +Pacemaker ([employer]) - A-fib hx, CHB no symptoms +Heart failure - on digoxin, Lasix. Chronic lower extremity edema. +Valve history - s/p Mitral and tricuspid repair 2017 - Dr. Adrianna Geiger - Ra (more content not included)... Normal [facility] Krzysztof 07-13-2021 CNCO Letter Text Normal [facility] CNPNevin 07-13-2021 FEDERICON Telephone ([facility]) SAMSON KELLEY ([id number]) 1935 M Date Time Provider Department 07/13/21 [...] by routing message back to Angel ROSARIO PRICING STRATEGIST, prior to notifying the patient. Marybeth Georgi 07/13/2021 1:53 PM Signed Pt seeing Cardi Dr Adrianna Geiger @ [facility] 216 Will send clearance to this provider Cat Gibbs 07/15/2021 11:03 AM Signed Cari from [facility] Geiger's office called and asked to have clearance letter fax to [phone]. Thank you. Marybeth Georgi 07/15/2021 11:21 AM [...] Encounter Status:Closed by MARYBETH LAUREANO on 07/13/21 [facility] [place] 07-12-2021 CNPN Telephone (GENSA[facility]) SAMSON KELLEY ([id number]) 1935 M Date Time Provider Department 07/12/21 JEWEL CARY III GENSAV During your visit today, we recorded the following information about you: Marybeth Laureano 07/13/2021 2:08 PM Addendum Cur received Pt needs cardiac clearance Dr Kody Lynn Tele enct sent Spoke w pt he now sees Dr Adrianna Geiger at [facility]. Letter electronically sent. Marybeth Laureano 07/13/2021 3:25 PM Signed electronic faxed failed printed and sent to verified fax number of [phone]. Confirmed received. Marybeth Godoyn 07/19/2021 3:02 PM [...] Encounter Status:Closed by MARYBETH LAUREANO on 07/19/21 [facility] HISTORY PHYSICALon HISTORY PHYSICAL HNO ID: [id number] Author: Jewel Cary III, MD Service: ? [...] for internal providers or letter via the [employer] for external providers. HISTORY: He [...] (more content not included)... Normal [facility] OPERATIVE REPORTon OPERATIVE REPORT NAME: SAMSON KELLEY MR#: [id number] SURGEON: Adrianna Geiger MD DATE OF SURGERY: 02/01/2021 OPERATIVE REPORT PREOPERATIVE DIAGNOSIS: End of life pacemaker pulse generator. POSTOPERATIVE DIAGNOSIS: End of life pacemaker pulse generator. PROCEDURE: Change out of end of life pacemaker pulse generator. DESCRIPTION OF PROCEDURE: call center agent to the OR, he received 1 g [...] inserted. The new pulse generator is a Ancestry Accolade MRI safe pacemaker, model #L311 serial #[id number]. The pulse generator was attached to the [...] of the day today. ADRIANNA GEIGER MD Yossi/[facility]/[id number] E/S: Adrianna Geiger MD 02/08/21 0856 Electronically Signed [facility] PT NAME: SAMSON KELLEY MR#: [id number] [address] [place] [address] ACCT: [id number] : [birth year] OPERATIVE REPORT Normal [facility] SURGon 02-01-2021 SURG Normal [facility] Comment on above: Result Comment: RUN DATE: 02/02/21 [facility] LAB *LIVE* PAGE 1RUN TIME: 1351 Specimen InquiryRUN USER: [email or web address] Name: SAMSON KELLEY : [birth year] Sex:M Anais Dr: Adrianna Geiger [facility]#: [id number] Unit#: [id number] Status: [facility] Location: ANA MARIA SiddiqiS17-01 Received: 02/01/21-1 Status: PRIYANKA Saravia#: [id number]#: [id number] Collected: 02/01/21-[address]: Adrianna Geiger MDTISSUES: A. EXPLANTED HARDWARE MICROSCOPIC EXAM: N/A DIAGNOSIS: EXPLANTED HARDWARE, REMOVAL: - PULSE GENERATOR (GROSS DIAGNOSIS ONLY) Signed Signature on File KT SCHAFER 02/02/21 1854 [facility] Name: SAMSON KELLEY [facility] Hosp Num: [id number] A Ministry of Age / Sex: 85/M [facility] Physician: [place] [address] [place], [place] [address] Location: SAME DAY SURGERY END OF REPORT Performed By: #### P SURG ####Test performed at: [place] [address] Vital Signs Date Time Vital Sign Value Performing Clinician Facility 01-16-2024 11:34-0500 Body height 182.88 cm [facility] 01-16-2024 11:34-0500 Body mass index (BMI) [Ratio] 28.5 kg/m2 [facility] 01-16-2024 11:34-0500 Body weight 95.48 kg [facility] 01-16-2024 11:34-0500 Diastolic blood pressure 62 mm[Hg] [facility] 01-16-2024 11:34-0500 Heart rate 82 /min [facility] 01-16-2024 11:34-0500 Respiratory rate 20 /min [facility] 01-16-2024 11:34-0500 Systolic blood pressure 102 mm[Hg] [facility] 12-08-2023 11:30-0500 Body height 182.88 cm [facility] 12-08-2023 11:30-0500 Body weight 94.16 kg [facility] 12-08-2023 11:30-0500 Diastolic blood pressure 74 mm[Hg] [facility] 12-08-2023 11:30-0500 Systolic blood pressure 115 mm[Hg] [facility] 11-22-2023 10:00-0500 Body height 182.88 cm Timo Ball Other [facility] 11-22-2023 10:00-0500 Body mass index (BMI) [Ratio] 28.67 kg/m2 Timo Ball Other [facility] Other 11-22-2023 10:00-0500 Body weight 95.89 kg Timo Ball Other [facility] Other 11-22-2023 10:00-0500 Body weight 95.88 kg [facility] 11-22-2023 10:00-0500 Diastolic blood pressure 64 mm[Hg] Timo Ball Other [facility] 11-22-2023 10:00-0500 Respiratory rate 16 /min Timo Ball Other [facility] Other 11-22-2023 10:00-0500 SaO2% (BldA) [Mass fraction] 95 % Timo Ball Other [facility] Other 11-22-2023 10:00-0500 Systolic blood pressure 102 mm[Hg] Timo Ball Other [facility] 10-03-2023 13:45-0500 Body height 182.88 cm Timo Ball Other [facility] Other 10-03-2023 13:45-0500 Body mass index (BMI) [Ratio] 29.02 kg/m2 Timo Ball Other [facility] Other 10-03-2023 13:45-0500 Body weight 97.07 kg Timo Ball Other [facility] Other 10-03-2023 13:45-0500 Diastolic blood pressure 67 mm[Hg] Timo Ball Other [facility] Other 10-03-2023 13:45-0500 Respiratory rate 16 /min Timo Ball Other [facility] Other 10-03-2023 13:45-0500 Systolic blood pressure 106 mm[Hg] Timo Ball Other [facility] Other 09-29-2023 13:45-0400 Body height 182.88 cm Timo Ball Other [facility] Other 08-31-2023 11:00-0400 Body height 182.88 cm Timo Ball Other [facility] Other 08-31-2023 11:00-0400 Body mass index (BMI) [Ratio] 28.23 kg/m2 Timo Ball Other [facility] Other 08-31-2023 11:00-0400 Body weight 94.44 kg Timo Ball Other [facility] Other 08-31-2023 11:00-0400 Diastolic blood pressure 61 mm[Hg] Timo Ball Other [facility] Other 08-31-2023 11:00-0400 Respiratory rate 12 /min Timo Ball Other [facility] Other 08-31-2023 11:00-0400 Systolic blood pressure 105 mm[Hg] Timo Ball Other [facility] Other 05-26-2023 11:00-0400 Body height 182.88 cm Timo Ball Other [facility] Other 05-26-2023 11:00-0400 Body mass index (BMI) [Ratio] 28.69 kg/m2 Timo Ball Other [facility] Other 05-26-2023 11:00-0400 Body weight 95.98 kg Timo Ball Other [facility] Other 05-26-2023 11:00-0400 Diastolic blood pressure 66 mm[Hg] Timo Ball Other [facility] Other 05-26-2023 11:00-0400 Respiratory rate 16 /min Timo Ball Other [facility] Other 05-26-2023 11:00-0400 Systolic blood pressure 116 mm[Hg] Timo Ball Other [facility] Other 01-20-2023 11:00-0500 Body height 182.88 cm Timo Ball Other [facility] Other 01-20-2023 11:00-0500 Body mass index (BMI) [Ratio] 28.53 kg/m2 Timo Ball Other [facility] Other 01-20-2023 11:00-0500 Body weight 95.44 kg Timo Ball Other [facility] Other 01-20-2023 11:00-0500 Diastolic blood pressure 64 mm[Hg] Timo Ball Other [facility] Other 01-20-2023 11:00-0500 Respiratory rate 16 /min Timo Ball Other [facility] Other 01-20-2023 11:00-0500 Systolic blood pressure 102 mm[Hg] Timo Ball Other [facility] Other 09-21-2022 12:18-0400 Blood Pressure Location MARYBETH KENNETH [facility] 09-21-2022 12:18-0400 Diastolic blood pressure 58 mm[Hg] MARYBETH KENNETH [facility] 09-21-2022 12:18-0400 Heart rate 80 /min MARYBETH KENNETH [facility] 09-21-2022 12:18-0400 Respiratory rate 16 /min MARYBETH STANLEY [facility] 09-21-2022 12:18-0400 Systolic blood pressure 111 mm[Hg] MARYBETH STANLEY [facility] 03-16-2022 08:49-0400 Blood Pressure Location MARYBETH STANLEY [facility] 03-16-2022 08:49-0400 Diastolic blood pressure 65 mm[Hg] MARYBETH STANLEY [facility] 03-16-2022 08:49-0400 Heart rate 75 /min MARYBETH STANLEY [facility] 03-16-2022 08:49-0400 Systolic blood pressure 93 mm[Hg] MARYBETH STANLEY [facility] Encounters Encounter Date Encounter Type Care Provider Facility Start: 02-07-2024 End: 02-07-2024 ambulatory Martha Renea Facility:[facility] Start: 01-26-2024 End: 01-26-2024 ambulatory [facility] Start: 01-16-2024 End: 01-16-2024 ambulatory [facility] Work Phone: Start: 01-16-2024 End: 01-16-2024 Patient encounter procedure [facility] Work Phone: Start: 01-12-2024 Non-patient / Non-visit [facility] Work Phone: Start: 01-11-2024 Non-patient / Non-visit [facility] Work Phone: Start: 01-10-2024 Non-patient / Non-visit [facility] Work Phone: Start: 01-09-2024 Non-patient / Non-visit [facility] Work Phone: Start: 01-08-2024 Non-patient / Non-visit [facility] Work Phone: Start: 01-01-2024 End: 01-01-2024 ambulatory [facility] Start: 12-29-2023 End: 12-29-2023 ambulatory Timo Penny Other [facility] Other Start: 12-29-2023 Telephone encounter Timo Francis JOHNATHON [facility] Start: 12-26-2023 End: 12-26-2023 ambulatory EDDIE WEISS Not Available Start: 12-20-2023 End: 12-20-2023 ambulatory Timo Francis Other [facility] Other Start: 12-20-2023 Telephone encounter Timo Francis [facility] Start: 12-15-2023 End: 12-15-2023 ambulatory Timo Francis Other [facility] Other Start: 12-15-2023 Telephone encounter Timo Francis [facility] Start: 12-11-2023 End: 12-11-2023 ambulatory Timo Francis Other [facility] Other Start: 12-11-2023 Telephone encounter Timo DIEGO [facility] Start: 12-08-2023 End: 12-08-2023 Patient encounter procedure [facility] Work Phone: Start: 12-05-2023 End: 12-05-2023 ambulatory Timo Francis Other [facility] Other Start: 12-05-2023 Telephone encounter Timo Francis [facility] Start: 11-22-2023 End: 11-22-2023 ambulatory Timo Francis Other [facility] Other Start: 11-22-2023 Telephone encounter Timo Francis [facility] Start: 11-22-2023 Transitional care carlie villasenor srvc 14 day discharge Timo Francis [facility] Start: 11-22-2023 End: 11-22-2023 Patient encounter procedure [facility] Work Phone: Start: 11-17-2023 End: 11-17-2023 ambulatory Timo Francis Other [facility] Other Start: 11-17-2023 Telephone encounter Timo Francis [facility] Start: 10-04-2023 End: 10-04-2023 ambulatory Timo Francis Other [facility] Other Start: 10-04-2023 Telephone encounter Timo Francis [facility] Start: 10-03-2023 End: 10-03-2023 ambulatory Timo Francis Other [facility] Other Start: 10-03-2023 Office outpatient vi sit 15 minutes Timo Francis [facility] Start: 09-29-2023 End: 09-29-2023 ambulatory Timo Francis Other [facility] Other Start: 09-29-2023 Nursing evaluation o f patient and report Timo Francis [facility] Start: 09-06-2023 End: 09-06-2023 ambulatory Timo Francis Other [facility] Other Start: 09-06-2023 Telephone encounter Timo Francis [facility] Start: 08-31-2023 End: 08-31-2023 ambulatory Timo Penny Other [facility] Other Start: 08-31-2023 Patient encounter procedure Timo Francis [facility] Start: 05-26-2023 End: 05-26-2023 ambulatory Timo Francis Other [facility] Other Start: 05-26-2023 Office outpatient vi sit 25 minutes Timo Francis [facility] Start: 05-02-2023 End: 05-02-2023 ambulatory SAMSON [facility] Start: 04-17-2023 End: 04-17-2023 ambulatory JUAN LUIS [facility] Start: 01-20-2023 End: 01-20-2023 ambulatory Timo Francis Other [facility] Other Start: 01-20-2023 Office outpatient vi sit 25 minutes Timo Francis [facility] Start: 09-21-2022 End: 09-22-2022 ambulatory MARYBETH STANLEY Facility:[facility] [place] Start: 09-21-2022 End: 09-21-2022 Patient encounter procedure MARYBETH STANLEY [facility] Start: 09-06-2022 End: 09-07-[address] TIMO FRANCIS Facility:[facility] Start: 08-14-2022 End: 08-15-[address] TIMO FRANCIS Facility:[facility] Start: 08-03-2022 End: 08-04-[address] TIMO FRANCIS Facility:[facility] Start: 07-08-2022 End: 07-09-[address] TIMO FRANCIS Facility:[facility] Start: 03-16-2022 End: 03-17-2022 ambulatory MARYBETH STANLEY Facility:[facility] [place] Start: 03-16-2022 End: 03-16-2022 Patient encounter procedure MARYBETH Farooq MOTARY [facility] Start: 01-06-2022 End: 01-07-2022 ambulatory MARYBETH STANLEY Facility:[facility] [place] Start: 01-05-2022 ambulatory MARYBETH KENNETH Facility :[facility] [place] Start: 12-07-2018 Patient encounter procedure Facility:[id number] Start: 12-06-2018 Patient encounter procedure Facility:[id number] Procedures Date Procedure Procedure Detail Performing Clinician Start: 01-08-2024 Blood Culture 1 Start: 01-08-2024 Blood Culture 2 Start: 07-08-[address] KUSH FRANCIS Comment on above: Performed By: #### U MICRO, ERUR #### [facility] [address] [place] [address] [address] Kirk García Start: 07-28-2021 Cholecystectomy SHADIA STANLEY Start: 11-27-2006 Colonoscopy MARYBETH GRAVES Start: 11-27-2004 Implantation of radi oactive seed into prostate MARYBETH STANLEY Repair of right ingu inal hernia MARYBETH KENNETH Transrectal biopsy o f prostate using ultrasound guidance MARYBETH MOTARY Immunizations Immunization Date Immunization Notes Care Provider Fa [facility] 09-29-2023 influenza, high dose seasonal, preservative-free Timo Francis Other [facility] Other 09-29-2023 influenza virus vaccine, unspecified formulation [facility] 09-07-2022 influenza virus vaccine, split virus (incl. purified surface antigen) Timo Francis Other [facility] Other 09-07-2022 influenza virus vaccine, unspecified formulation [facility] 04-26-2022 SARS-CoV-2 mRNA (plzrfgsxeqv-smtt-ujfns se) vaccine MARYBETH STANLEY [facility] 09-02-2021 SARS-CoV-2 (COVID-19 ) mRNA BNT-162b2 vax MARYBETH STANLEY [facility] 08-18-2021 influenza virus vaccine, unspecified formulation MARYBETH KENNETH [facility] 08-13-2021 influenza virus vaccine, split virus (incl. purified surface antigen) Timo Francis Other [facility] Other 08-13-2021 influenza virus vaccine, unspecified formulation [facility] 02-23-2021 SARS-CoV-2 (COVID-19 ) mRNA BNT-162b2 vax MARYBETH KENNETH [facility] 02-03-2021 SARS-CoV-2 (COVID-19 ) mRNA BNT-162b2 vax MARYBETH KENNETH [facility] Comment on above: Result Comment: 2021: [id number] 01-25-2021 SARS-CoV-2 (COVID-19 ) mRNA BNT-162b2 vax MARYBETH KENNETH [facility] 08-31-2020 influenza virus vaccine, split virus (incl. purified surface antigen) Timo Francis Other [facility] Other 08-31-2020 influenza virus vaccine, unspecified formulation [facility] 08-30-2019 influenza virus vaccine, split virus (incl. purified surface antigen) Timo Francis Other [facility] Other 08-30-2019 influenza virus vaccine, unspecified formulation MARYBETH KENNETH [facility] 08-29-2018 influenza virus vaccine, split virus (incl. purified surface antigen) Timo Francis Other [facility] Other 08-29-2018 influenza virus vaccine, unspecified formulation MARYBETH STANLEY [facility] 08-03-2017 influenza virus vaccine, split virus (incl. purified surface antigen) Timo Francis Other [facility] Other 08-03-2017 influenza virus vaccine, unspecified formulation MARYBETH STANLEY [facility] 09-05-2016 influenza virus vaccine, split virus (incl. purified surface antigen) Timo Penny Other [facility] Other 09-05-2016 influenza virus vaccine, unspecified formulation MARYBETH STANLEY [facility] 10-16-2015 pneumococcal conjuga te vaccine, 13 valent Timo Francis Other [facility] 09-01-2015 influenza virus vaccine, split virus (incl. purified surface antigen) Timo Francis Other [facility] Other 09-01-2015 influenza virus vaccine, unspecified formulation [facility] 09-15-2014 tetanus and diphther ia toxoids, adsorbed, preservative free, for adult use (5 Lf of tetanus toxoid and 2 Lf of diphtheria toxoid) Timo Francis Other [facility] 08-27-2013 tetanus and diphther ia toxoids, adsorbed, preservative free, for adult use (5 Lf of tetanus toxoid and 2 Lf of diphtheria toxoid) Timo Francis Other [facility] 01-10-2007 pneumococcal polysaccharide vaccine, 23 valent Timo Francis Other [facility] 1999 pneumococcal polysaccharide vaccine, 23 valent MARYBETH STANLEY [facility] Payers Date Payer Category Payer Self-pay 2024 Unknown [id number] 2.16.8 [id number] 2023 Unknown [id number] 1959 Medicare [id number] 1959 Unknown [id number] 1934 Unknown [id number] 2.16. [id number] 1934 Unknown [id number] 2.16. [id number] 1934 Unknown [id number] 2.16.8 [id number] 1934 Unknown [id number] 2.16.8 [id number] 1934 Unknown [id number] 2.16.8 40.1.322706.3.579.2.727 1934 Unknown [id number] 2.16.8 40.1.515120.3.579.2.727 1934 Unknown [id number] 2.16.8 40.1.429708.3.579.2.727 1934 Unknown [id number] 2.16.84 0.1.184458.3.579.2.593 1934 Unknown [id number] 2.16.84 0.1.491100.3.579.2.593 1934 Unknown [id number] 2.16.84 0.1.924044.3.579.2.593 1934 Unknown [id number] 2.16.84 0.1.098655.3.579.2.593 1934 Unknown [id number] 2.16.84 [id number] Medicare [id number] Unknown [facility] Health Claims [id number] Unknown Other1 (STD) [id number] Unknown [id number] 2.16.8 [id number] Social History Date Type Detail Facility Start: 03-16-2022 End: 01-16-2024 Tobacco smoking status Never smoked tobacco (finding) [facility] Tobacco smoking status Never [facility] Sex Assigned At Male [facility] Start: 1935 Sex Assigned At Male F [facility] Functional Status Date Assessment Result Facility 09-21-2022 Functional Status N/A [facility] Clinical Notes 07-28-2021 to 01-26-2024 Note Date & Type Note Facility 01-26-2024 Note CAMERON clip 2017 No anticoagulation with CAMERON clip Continue toprol and digoxin- rate is controlled in office [facility] 01-26-2024 Note Will monitor with ro utine echocardiograms. [facility] 01-26-2024 Note Continue diuresis wi th lasix bid for next 2-3 days and then resume daily dose. [facility] 01-26-2024 Note Hypertension is stab le Well controlled 100/60 Continue all meds [facility] 01-26-2024 Note [facility] III Continue GDMT- ASA, digoxin, lisinopril, toprol with midodrine. Diuretic therapy- lasix 40 mg daily with bid as needed for fluid overload. Asked pt to continue lasix bid for next 2-3 days Sent pt to lab for BMP Monitor daily weights, I&O, fluid restriction 1.5-2L/day, renal function and electrolytes- please maintain K+>4 and Mg > 2 [facility] 01-26-2024 Note UTP CARDIOLOGY PROGR ESS NOTE [facility] HPI: Samson Kelley is a 88 y.o. male here for hospital F/U at [facility] HPI 88 y.o. 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 He was started on midodrine and [...] VALVE: Normal trile (more content not included)... [facility] 01-26-2024 Note Patient here for fol [facility] up [facility]. He was started on midodrine and thyroid medication. .Review of Systems Eyes: Positive for vision loss in left eye and vision loss in right eye. Cardiovascular: Positive for dyspnea on exertion and leg swelling. Respiratory: Positive for shortness of breath. Hematologic/Lymphatic: Bruises/bleeds easily. All other systems reviewed and are negative. [facility] 01-01-2024 Note Patient here for 6 m o follow up and device check. He was admitted to [facility] in Oct 2023 and was seen [...] All other systems reviewed and are negative. [facility] 01-01-2024 Note [facility] Consult Note Reason [...] noted some increase in SOB/POWELL 04/17/23 jonah [facility] HPI Samson Kelley is a 87 y.o. [...] on file Intimate Partner Violence: Unknown (01/01/2024) [place] Safety & Environment Fear of Current or [...] rhonchi Cardiovascular Ra (more content not included)... [facility] 12-29-2023 Evaluation note Encounter Date Diagnosis Assessment Notes Dec, Anemia (ICD-10 - D64.9) [facility] 01-03-2024 NoteThis report has been cancelled. [facility]01-03-2024 NoteThis report has been cancelled.[facility]01-03-2024 NoteThis report has been cancelled.[facility]01-03-2024 NoteThis report has been cancelled.[facility]01-03-2024 NoteThis report has been cancelled.[facility]01-03-2024 NoteThis report has been cancelled.[facility]01-03-2024 NoteThis report has been cancelled.[facility]12-27-2023 Evaluation note* Encounter Date Diagnosis Assessment [...] are maintaining regular scheduled appts with their hand box coverer. s/p LAAO procedure, off anticoagulation Oct, Pulmonary [...] I44.1) PM inserted PM checkups every 6months. [facility] Other 11-07-2023 Evaluation note* Encounter Date Diagnosis [...] continue exercise to achieve/maintain a normal BMI. [facility] Other 10-05-2023 Evaluation note* Encounter Date Diagnosis [...] are maintaining regular scheduled appts with their hand box coverer. No bleeding complications Aug, Chronic venous insufficiency [...] (ICD-10 - Z79.899) Check labs: CBC, Dig [facility] Other 06-30-2023 Evaluation note* Encounter Date Diagnosis [...] are maintaining regular scheduled appts with their hand box coverer. No bleeding complications Apr, Chronic venous insufficiency (ICD-10 - I87.2) Avoid salt and elevate lower extremities, support stockings, inspect legs and feet daily for blisters and ulcerations. 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 No active treatment at this time. [facility] Other 05-22-2023 NotePatient is here today to establish care Review of Systems HENT: Positive for ear discharge. Eyes: Positive for vision loss in left eye and vision loss in right eye. Respiratory: Positive for cough. All other systems reviewed and are negative.[facility] 04-17-2023 NoteCardiovascular Medicine [place] [facility] SUBJECTIVE Chief Complaint Patient presents with [...] puffier lately. -Will ob (more content not included)...[facility] 01-20-2023 Evaluation note* Encounter Date Diagnosis [...] are maintaining regular scheduled appts with their hand box coverer. 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 Needs new [employer] Developer, suggest [facility] here in [place] Dec, History of prostate cancer (ICD-10 - Z85.46) No s/s recurrence [facility] Other 10-26-2022 Hospital Discharge instructions Patient Education [...] who: Are older than age 65. Are -Guyanese. Are obese. Have a family history of [...] cells. Follow these instructions at home: Take dzdq-yvz-ttegsmr and prescription medicines only as told by [...] 11/13/2006 Document Revised: 10/26/2018 Document Reviewed: 07/24/2017 [employer] Patient Education 2020 [employer]. Follow Up Care 03/16/2022 09:37:24 With:KENNETH SHEPARD, MARYBETH Trivedi, URL Address: [address] [place] [address] [phone] When: only if needed [facility] Jacki 04-20-2022 Hospital Discharge instructions Patient Education [...] who: Are older than age 65. Are -Guyanese. Are obese. Have a family history of [...] cells. Follow these instructions at home: Take obfx-svj-vmzbwdr and prescription medicines only as told by [...] 11/13/2006 Document Revised: 10/26/2018 Document Reviewed: 07/24/2017 [employer] Patient Education 2020 [employer]. Follow Up Care 01/28/2022 16:02:47 With:MARYBETH STANLEY PA-C, URL Address: [address] [place] [address] Business (1) When:6 months [facility] [facility] NoteHNO ID: [id number] Author: Jewel Cary III, MD Service: ? Author Type: Physician Type: Progress Notes Filed: 08/17/2021 9:33 AM Note Text: This patient is post op from laparoscopic cholecystectomy. He has had no symptoms. P.E. The wounds are healing well without evidence of infection. I reviewed the pathology report with Samson. Assessment Satisfactory course Plan: Return to office PRN. Jewel Cary III, [facility]09-01-2021 NoteHNO ID: [id number] Author: Jaspal Phipps APRN.CRNA Service: Anesthesiology Author Type: Nurse Manager Of Corporate Type: Anesthesia Procedure Notes Filed: 07/28/2021 10:50 AM Note Text: ANESTHESIOLOGY PROCEDURE NOTE Airway General Information Procedure Start Time/Medication Administration: 07/28/2021 10:40 AM Patient location during procedure: OR Patient identity confirmed: arm band and patient Staffing Anesthesiologist: Ramiro Esquivel MD BLOWING ENGINEER: Jaspal Phipps APRN.BLOWING ENGINEER Performed by: JASON Indications and Patient [...] to 7.0 ETT-no difficulty. SIGNATURE: Jaspal Phipps APRN.BLOWING ENGINEER PATIENT NAME: Samson Kelley DATE: July 28, 2021 TIME: 10:48 AM CSN: [id number] note Future Appointments Appointment Date:09/21/2022 10:00:00 AM Scheduled Provider:MARYBETH STANLEY PA-C Location:[facility] Appointment Type:URO Office Visit [facility] evaluation noteNo [facility] Other Evaluation note* Diagnosis Onset Date Resolution Status Chronic venous insufficiency of lower extremity acute CKD (chronic kidney disease) stage 3, GFR 30-59 ml/min acute HFrEF (heart failure with reduced ejection fraction) acute Hypoxia acute Mobitz (type) II atrioventricular block acute Pancytopenia acute Subclinical hypothyroidism [facility] Work Phone: Hiscpfw general Narrative - Reported* Type Description Date [...] GALLBLADDER 11/2029 Hospitalization History see surgical history [facility] Other Hisqtzw general Narrative - Reported* Type Description Date [...] 20 16 Hospitalization History see surgical history [facility] Other Hospital course Narrative No data available for this section [facility] progress note No data available for this section [facility] Summary Purpose Family History No Family History Records Found Relationship Condition Age at Onset Recorded Date/T jabier father Unknown Not Specified Unknown Advance Directives No Advanced Directives Records Found Advance Directive Response Recorded Date/ Time Advance Directives No January 04, 2024 12:18pm Chief Complaint and Reason for Visit Chief Complaint [facility] Follow-Up [facility] d/c 01/12 Reason for Visit Chronic [...] [facility] DATE CREATED AUTHOR AUTHOR'S ORGANIZ ATION 07/31/2021 [facility] DATE CREATED AUTHOR AUTHOR'S ORGANIZ ATION 07/31/2021 [facility] DATE CREATED AUTHOR AUTHOR'S ORGANIZ ATION 12/24/2021 [facility] DATE CREATED AUTHOR AUTHOR'S ORGANIZ ATION 12/26/2021 [facility] DATE CREATED AUTHOR AUTHOR'S ORGANIZ ATION 09/22/2022 [facility] DATE CREATED AUTHOR AUTHOR'S ORGANIZ ATION 10/05/2022 [facility] DATE CREATED AUTHOR AUTHOR'S ORGANIZ ATION 12/27/2023 [facility] EP[facility] DATE CREATED AUTHOR AUTHOR'S ORGANIZ ATION 02/05/2024 [facility] DATE CREATED AUTHOR AUTHOR'S ORGANIZ ATION 02/11/2024 [facility] Patient Care team informatio n [...] UP4 MONTH FOL LOW UPWellnessLab resultsflu shotankle/foot swellingRefillTCCOREY HOSPITAL HHTBHMedication PriceTCMBlood PressuresBP readingsweight concernRepeat Labs Goals [...] ON THE PRIMARY CLINICAL RECORDS. [facility] [employer] [facility]. provides no warranty or guarantee of the accuracy or completeness of information in this document.
[2024-02-11 21:12] LABS: Digoxin 0.9 ng/mL (0.9-2.0)
[2024-02-11] MEDS: DIGOXIN 125 MCG TABLET PO (21:28)
[2024-02-11] MEDS: MIDODRINE HCL 5 MG TABLET 10 MG PO (21:30)
[2024-02-11] MEDS: OXYBUTYNIN CHLORIDE 5 MG TAB XL PO (21:30)
[2024-02-11] MEDS: FUROSEMIDE 40 MG/4 ML VIAL IVP (21:32)
[2024-02-12] VITALS (25 sets, daily range): BP systolic 99–128; BP diastolic 54–72; PULSE 69–83; RESP 16–22; TEMP 36.4–36.9; O2SAT 91–94
[2024-02-12 05:21] LABS: Basophils Percent Auto 0.5 % (0.2-2.0); Eosinophils Absolute Auto 0.2 10^3/uL (0.0-0.7); Eosinophils Percent Auto 4.2 % (0.9-7.0); Hematocrit 28.3 % (42.0-54.0); Immature Granulocytes Abs Auto 0.01 10^3/uL (0.00-0.03); Immature Granulocytes Pct Auto 0.2 % (0.0-0.5); Lymphocytes Absolute Auto 0.8 10^3/uL (1.2-3.8); Lymphocytes Percent Auto 19.7 % (20.5-60.0); Mean Corpuscular HGB Conc 31.8 g/dL (29.9-35.2); Mean Corpuscular Hemoglobin 34.9 pg (25.9-34.0); Mean Corpuscular Volume 109.7 fL (80.0-94.0); Mean Platelet Volume 11.6 fL (9.5-13.5); Monocytes Absolute Auto 0.6 10^3/uL (0.3-0.8); Monocytes Percent Auto 14.7 % (1.7-12.0); Neutrophils Absolute Auto 2.4 10^3/uL (1.4-6.5); Neutrophils Percent Auto 60.7 % (43.0-75.0); Platelet Count 78 10^3/uL (150-450); Red Blood Count 2.58 10^6/uL (4.70-6.10); Red Cell Distribution Width 16.3 % (11.0-15.0)
[2024-02-12 05:21] LABS: Bilirubin Urine NEGATIVE (NEGATIVE); Blood Urine NEGATIVE (NEGATIVE); Clarity Urine CLEAR (CLEAR); Color Urine LT. YELLOW (YELLOW); Glucose Urine UA NEGATIVE (NEGATIVE); Ketones Urine NEGATIVE (NEGATIVE); Leukocyte Esterase Urine NEGATIVE (NEGATIVE); Nitrite Urine NEGATIVE (NEGATIVE); Protein Urine NEGATIVE (NEG/TRACE); Urobilinogen Urine 0.2 EU/dL (0.2-1.0)
[2024-02-12 05:24] LABS: Bacteria Urine NONE SEEN #/HPF (NONE SEEN); Cast Seen? NONE SEEN #/LPF (NONE SEEN); Crystals Seen? None Seen #/HPF (None Seen); Mucus Urine NONE SEEN (NONE SEEN); RBC Urine NONE SEEN #/HPF (0-2); Squamous Epithelial Cell Urine NONE SEEN #/LPF (NONE/RARE); WBC Urine NONE SEEN #/HPF (NONE SEEN)
[2024-02-12 05:42] LABS: Alanine Aminotransferase 17 U/L (16-63); Albumin Globulin Ratio 0.7; Alkaline Phosphatase 110 U/L (46-116); Aspartate Amino Transferase 12 U/L (15-37); BUN Creatinine Ratio 29.8; Bilirubin Total 2.1 mg/dL (0.2-1.0); Calcium 9.3 mg/dL (8.5-10.1); Carbon Dioxide 28.9 mmol/L (21.0-32.0); Chloride 100 mmol/L (98-107); Estimated GFR (African America 57 (>=60); Estimated GFR (Non-African Ame 47 (>=60); Globulin 4.3 g/dL; Glucose 102 mg/dL (74-106); Potassium 3.9 mmol/L (3.5-5.1); Sodium 137 mmol/L (136-145); Total Protein 7.3 g/dL (6.4-8.2)
--- NOTE | 2024-02-12 06:10 | PC.NURSE ---
pt had removed pants at 0500 this am shift, may account for some weight loss on bed scale as well as output
[2024-02-12] MEDS: LEVOTHYROXINE SODIUM 100 MCG TABLET PO (06:14)
[2024-02-12] MEDS: MIDODRINE HCL 5 MG TABLET 10 MG PO ×3 (07:54→17:49)
[2024-02-12] MEDS: FUROSEMIDE 20 MG/2 ML VIAL IVP (08:22)
[2024-02-12] MEDS: ASPIRIN 81 MG TABLET.DR PO (08:22)
[2024-02-12] MEDS: METOPROLOL SUCCINATE 50 MG TAB.ER.24H PO (08:22)
--- NOTE | 2024-02-12 10:16 | SWNOTE1 ---
SW received message from case management and pt has [facility] home health and home oxygen.
--- NOTE | 2024-02-12 11:53 | CM.NOTE ---
Rounds made with Dr. Escalante, no discharge today. Discussed with pt plan of care and PT and OT to evaluate pt.
--- NOTE | 2024-02-12 12:08 | SWNOTE1 ---
SW spoke to case management and home oxygen is from [facility].
--- NOTE | 2024-02-12 12:09 | CM.NOTE ---
Important Message From Medicare discussed with pt, pt verbalizes understanding and signs paper. Original given to pt and copy placed in pt's chart.
--- NOTE | 2024-02-12 15:19 | P.HP_ITS ---
<Statement entered by Joel Escalante MD - 02/12/24 20:32> Patient seen and examined, agree with assessment and plan below. Presented with SOB and fluid overload. Started IV lasix. Case discussed with cardiology and will add aldactone. Echo with EF 35% last month. Start PT/OT Diagnosis: 1. Acute on chronic HFrEF 2. Acute on chronic hypoxic respiratory failure 3. HTN 4. Paroxysmal atrial fibrillation 5. CAD 6. CKD 3b HPI H&P: HPI History of Present Illness Chief complaint: SOB Narrative: 02/12/24 1010 This is an 88-year-old male patient with a past medical history as outlined below including history of mitral valve and tricuspid valve repair, permanent pacemaker placement, paroxysmal A-fib, HFrEF (LVEF 35%), hypertension, and chronic anemia and thrombocytopenia s/p bone biopsy at [facility]' last week; who presented to the ED complaining of a 3 to 4-day course of increasing shortness of breath and activity intolerance. He notes increased edema over the last 2 weeks. He was discharged home from his last hospitalization in December on home O2 at 2 L 19/06. He presented to the ED for further evaluation due to his worsening dyspnea. Workup in the ED revealed hypoxia (83% on room air), tachypnea (28), chronic anemia (9.5, stable at baseline), and thrombocytopenia (85, stable at baseline). His renal function was at his baseline CKD 3A. A BNP was notably elevated (6631). A UA, respiratory panel, and digoxin level were all unremarkable. Chest x-ray revealed pulmonary edema and his EKG was a paced rhythm. He was admitted as an inpatient to the hospitalist service yesterday evening. At the time of my exam the patient is resting in bed. He is not significantly short of breath at rest but his O2 delivery is up to 4 L to maintain his sats above 90%. He was treated with IVP Lasix 20 mg twice daily after admission to the floor yesterday. His urine output is increased but not to the desired level. We had increased his Lasix to 40 mg IVP twice daily today, and we will monitor his renal function closely on daily labs. Cardiology has been consulted and we appreciate their assistance with this patient's care. ADDENDUM 1325: Cardiology contacted attending physician, Dr Escalante. Plan to follow up with the pt as an outpatient. They are happy with lasix 40 BID IVP during admission. Request changing PO Lasix to Bumex 2 mg at discharge. Also will add spironolactone as long as his creatinine clearance remains above 30 and he is not hyperkalemic. Disposition: Discharge possible in the next 24-48 hrs pending clinical course and adequate diuresis/stable renal function. Opioid HPI Opioid Management Most Recent Opioid Data: Last Pain Intensity 0 01/10/24 12:04 Last Pain Assessment 02/12/24 13:54 Last MAR Pain Assessment 01/10/24 04:15 Review of Systems ROS Status of ROS 10 or more systems reviewed and unremark able except as noted in history and below [facility] Medical History (Updated 02/12/24 @ 15:31 by Rosenda Ramirez NP) Hypotension ?I95.9 - Hypotension, unspecified (ICD-10) Stage 3b chronic kidney disease (CKD) ?N18.32 - Chronic kidney disease, stage 3b (ICD-10) Atherosclerotic heart disease of [place] coronary artery without angina pectoris ?I25.10 - Atherosclerotic heart disease of [place] coronary artery without angina pectoris (ICD-10) Paroxysmal A-fib ?I48.0 - Paroxysmal atrial fibrillation (ICD-10) HTN (hypertension) ?I10 - Essential (primary) hypertension (ICD-10) Dyspnea ?R06.00 - Dyspnea, unspecified (ICD-10) Subclinical hypothyroidism ?E03.8 - Other specified hypothyroidism (ICD-10) Thrombocytopenia ?D69.6 - Thrombocytopenia, unspecified (ICD-10) OAB (overactive bladder) ?N32.81 - Overactive bladder (ICD-10) Anemia ?D64.9 - Anemia, unspecified (ICD-10) HFrEF (heart failure with reduced ejection fraction) ?I50.20 - Unspecified systolic (congestive) heart failure (ICD-10) CKD (chronic kidney disease) stage 3, GFR 30-59 ml/min ?N18.30 - Chronic kidney disease, stage 3 unspecified (ICD-10) Retinal detachment ?H33.20 - Serous retinal detachment, unspecified eye (ICD-10) Prostate CA ?C61 - Malignant neoplasm of prostate (ICD-10) Pacemaker ?Z95.0 - Presence of cardiac pacemaker (ICD-10) Surgical History (Updated 11/15/23 @ 15:48 by Rosenda Ramirez NP) Hx of inguinal hernia repair ?Z98.890 - Other specified postprocedural states (ICD-10) ?Z87.19 - Personal history of other diseases of the digestive system (ICD-10) History of permanent cardiac pacemaker placement ?Z95.0 - Presence of cardiac pacemaker (ICD-10) History of tricuspid valve repair ?Z98.890 - Other specified postprocedural states (ICD-10) H/O mitral valve repair ?Z98.890 - Other specified postprocedural states (ICD-10) Family History (Updated 11/15/23 @ 15:37 by Keyla Wilson) Mother Family history of CHF (congestive heart failure) Family history of hypertension Sister Family history of cancer Social History (Updated 11/15/23 @ 15:38 by Keyla Wilson) Within the past year, how often did you have a drink containing alcohol: never Score interpretation: A score less than 4 is consistent with normal alcohol consumption. Smoking status: Never smoker Non-prescribed substance use: denies use Previous occupational history: [employer] Highest level of school completed/degree received: high school graduate Are you now , , , , never or living with a partner: never In a typical week, how many times do you talk on the telephone with family, friends, or neighbors: once per week How often do you get together with friends or relatives: once per week How often do you attend jehovah's witness or bahai services: never Do you belong to any clubs or organizations such as jehovah's witness groups unions, fraternal or athletic groups, or school groups: no Total score: 0 Score interpretation: A score of less than or equal to 1 indicates the most socially isolated. Meds Home Medications and Allergies Home Medications Medication Instructions Recorded Confirmed Type aspirin 81 mg tablet,delayed 81 mg PO DAILY 11/15/23 02/11/24 History release (Janice Low Dose Aspirin) digoxin 125 mcg (0.125 mg) tablet 0.125 mg PO Q24H 11/15/23 02/11/24 History furosemide 40 mg tablet 40 mg PO Q24H 11/15/23 02/11/24 History oxybutynin chloride 5 mg 5 mg PO Q24H 11/15/23 02/11/24 History tablet,extended release 24 hr metoprolol succinate 50 mg 50 mg PO QDAY 12/03/23 02/11/24 History tablet,extended release 24 hr melatonin 5 mg tablet 5 mg PO QPM PRN sleep 01/08/24 02/11/24 History levothyroxine 100 mcg tablet 100 mcg PO ACB #30 tabs 01/12/24 02/11/24 Rx midodrine 5 mg tablet 10 mg (2 x 5 mg) PO TID #90 tabs 01/12/24 02/11/24 Rx bumetanide 2 mg tablet 2 mg PO DAILY #30 tabs 02/12/24 Rx spironolactone 25 mg tablet 25 mg PO DAILY #30 tabs 02/12/24 Rx Allergies Allergy/AdvReac Type Severity Reaction Status Date / Time No Known Drug Allergies Allergy Verified 01/08/24 17:10 Exam Constitutional Vital Signs, click to edit/add: Last Vital Signs Temp 98.4 F 02/12/24 12:08 Pulse 74 02/12/24 13:49 Resp 22 02/12/24 12:05 BP 101/54 02/12/24 12:05 Pulse Ox 94 L 02/12/24 12:05 O2 Del Method Nasal Cannula 02/12/24 12:05 O2 Flow Rate 4 02/12/24 11:59 Common normals: no apparent distress, oriented x3, alert and well nourished General appearance: cooperative Orientation/consciousness: Yes awake HENMT Common normals: normocephalic, head/scalp atraumatic, hearing grossly normal bilaterally, external nose normal and moist oral mucous membranes Eye Common normals: PERRL, EOMs intact bilaterally, conjunctivae normal and no scleral icterus Alignment: alignment normal Eyelid: eyelids normal Neck & C-Spine Common normals: full ROM, supple and no JVD Chest Common normals: inspection of chest normal Chest: symmetrical chest wall rise Respiratory Common normals: normal respiratory effort, no retractions, no use of accessory muscles and clear to auscultation bilaterally Effort & inspection: able to speak in complete sentences Auscultation: diminished lung sounds (BLL); no crackles and no rales Cardio Common normals: no JVD, regular rate, regular rhythm, S1 normal heart sound, S2 normal heart sound, no gallops, no clicks, no rub and peripheral pulses 2+ throughout Heart sounds: murmur (HSM 3/6) GI Common normals: Normal to inspection, nondistended, normoactive bowel sounds present, soft to palpation, non-tender, no hepatosplenomegaly, no masses and no bruits Bladder/kidney exam: bladder normal to palpation Back & Pelvis Common normals: thoracic and lumbar spine normal to inspection Extremity Common normals: normal capillary refill General: normal exam except as noted and edema (3-4+ BLE mid-weaver to toes); no clubbing and no cyanosis Neuro [place] Coma Scale: GCS not evaluated Common normals: CN's II-XII intact bilaterally, moves all extremities, no focal motor deficits and no sensory deficits noted Speech: speech normal Motor exam: strength 5/5 throughout Psych Common normals: mental status grossly normal, thought process normal, affect normal and activity/motor behavior normal Results Labs Labs: Short CBC 02/11/24 02/12/24 Range/Units 17:19 05:05 WBC 4.5 4.0 (4.0-11.0) 10^3/uL Hgb 9.5 L 9.0 L (14.0-18.0) g/dL Hct 30.8 L 28.3 L (42.0-54.0) % Plt Count 85 L 78 L (150-450) 10^3/uL BMP 02/11/24 02/12/24 17:19 05:05 Sodium 135 L 137 Potassium 4.2 3.9 Chloride 99 100 Carbon Dioxide 28.8 28.9 BUN 45.0 H 42.0 H Creatinine 1.41 H 1.41 H Glucose 111 H 102 Calcium 9.5 9.3 Liver Function 02/12/24 Range/Units 05:05 Total Bilirubin 2.1 H (0.2-1.0) mg/dL AST 12 L (15-37) U/L ALT 17 (16-63) U/L Alkaline Phosphatase 110 (46-116) U/L Albumin 3.0 L (3.4-5.0) g/dL Urine 02/12/24 Range/Units 04:30 Urine Color Lt. yellow (YELLOW) Urine Clarity Clear (CLEAR) Urine pH 6.0 (5.0-9.0) Ur Specific Scheller 1.010 (1.005-1.025) Urine Protein Negative (NEG/TRACE) mg/dL Urine Glucose (UA) Negative (NEGATIVE) mg/dL Pulse Oximetry Attestation: I have reviewed the pertinent pulse oximetry results. ECG Interpretation: Electronic ventricular pacemaker Atypical ECG Compared to ECG from 01/09/2024 No significant changes Imaging Chest x-ray: Attestation: I have reviewed the pertinent imaging results. Radiologist's impression: Findings and impression: 1. Interstitial pulmonary edema. Mild underlying inflammatory or infectious pneumonitis would be difficult to exclude 2. Cardiomegaly with evidence of prior open heart surgery. Patient has also had left atrial appendage clipping. Right atrial, right ventricular pacing lead present. 3. Minimal atelectasis in the left lung base. Calcified granuloma also seen in the left mid to lower lung zone. 4. No acute osseous abnormality. Assessment and Plan Assessment and Plan (1) Acute on chronic HFrEF (heart failure with reduced ejection fraction): Assessment and Plan: Acute * Adm inpatient * Increase Lasix to 40 mg IVPB BID for now pending cardiology review * Consult cardiology - we appreciate their assistance with this pt's care * Last Echo 1 mo ago - no need to repeat unless cardiology wants to * Daily weights, strict I&O * SUYAPA hose on while awake * Daily BNP to trend (2) Acute respiratory failure with hypoxia: Assessment and Plan: Acute on Chronic * Baseline respiratory failure requiring 2L O2 supplementation * Pt currently requiring 4L to maintain sats above 90% * 2/2 CHF exacerbation - see above * No clinical concern for acute pneumonia or other process at this time * Titrate O2 down to home 2L when able (3) Thrombocytopenia: Assessment and Plan: Chronic * Defer to outpatient work up * Bone biopsy done last week at [facility] (4) Anemia: Assessment and Plan: Chronic * Likely 2/2 anemia of chronic disease but other etiologies possible - see thrombocytopenia * No evidence of active bleeding * CBC daily Qualifiers: Anemia type: due to chronic kidney disease Chronic kidney disease stage: stage 3 (moderate) Chronic kidney disease stage 3 subtype: unspecified whether 3a or 3b Qualified Code(s): N18.30 - Chronic kidney disease, stage 3 unspecified; D63.1 - Anemia in chronic kidney disease (5) OAB (overactive bladder): Assessment and Plan: Chronic * Continue home oxybutynin (6) Paroxysmal A-fib: Assessment and Plan: Chronic * Continue home Toprol XL for rate control * Pt not a candidate for anticoagulation d/t chronic anemia and thrombocytopenia (7) Stage 3b chronic kidney disease (CKD): Assessment and Plan: Chronic * Stable at baseline * Monitor w/ CMP daily (8) Atherosclerotic heart disease of [place] coronary artery without angina pectoris: Assessment and Plan: Chronic * Continue home low dose ASA and BB (9) Hypotension: Assessment and Plan: Chronic * Continue home midodrine (10) Subclinical hypothyroidism: Assessment and Plan: Chronic * Continue home levothyroxine
--- NOTE | 2024-02-12 16:04 | SWNOTE1 ---
Updates sent to [facility]. Updates included face sheet, ER note, H&P, and PT/OT notes.
[2024-02-12] MEDS: FUROSEMIDE 20 MG/2 ML VIAL 40 MG IVP (17:49)
[2024-02-12] MEDS: DIGOXIN 125 MCG TABLET PO (20:15)
[2024-02-12] MEDS: OXYBUTYNIN CHLORIDE 5 MG TAB XL PO (20:16)
[2024-02-13] VITALS (14 sets, daily range): BP systolic 94–106; BP diastolic 52–62; PULSE 70–84; RESP 18; TEMP 36.1–36.6; O2SAT 83–95
[2024-02-13 07:14] LABS: BUN Creatinine Ratio 29.5; Carbon Dioxide 30.7 mmol/L (21.0-32.0); Chloride 100 mmol/L (98-107); Estimated GFR (African America 55 (>=60); Estimated GFR (Non-African Ame 45 (>=60); Glucose 99 mg/dL (74-106); Potassium 3.7 mmol/L (3.5-5.1); Sodium 138 mmol/L (136-145)
[2024-02-13 07:15] LABS: Alanine Aminotransferase 13 U/L (16-63); Alkaline Phosphatase 103 U/L (46-116); Aspartate Amino Transferase 11 U/L (15-37); Bilirubin Total 1.9 mg/dL (0.2-1.0); Calcium 8.7 mg/dL (8.5-10.1)
[2024-02-13 07:16] LABS: Albumin Globulin Ratio 0.7; Albumin Level 2.7 g/dL (3.4-5.0); Globulin 3.9 g/dL; Total Protein 6.6 g/dL (6.4-8.2)
[2024-02-13 08:15] LABS: Hemoglobin 8.1 g/dL (14.0-18.0); Red Blood Count 2.33 10^6/uL (4.70-6.10); White Blood Count 4.4 10^3/uL (4.0-11.0)
[2024-02-13 08:16] LABS: Hematocrit 25.9 % (42.0-54.0); Mean Corpuscular HGB Conc 31.3 g/dL (29.9-35.2); Mean Corpuscular Hemoglobin 34.8 pg (25.9-34.0); Mean Corpuscular Volume 111.2 fL (80.0-94.0); Mean Platelet Volume 11.4 fL (9.5-13.5); Platelet Count 73 10^3/uL (150-450); Red Cell Distribution Width 16.4 % (11.0-15.0)
[2024-02-13 08:18] LABS: Band Neutrophils Absolute 0.8 10^3/uL (0.0-0.3); Segmented Neut Absolute Manual 2.86 10^3/uL (1.4-6.5)
[2024-02-13 08:19] LABS: Anisocytosis 3+; Eosinophils Absolute Manual 0.13 10^3/uL (0.00-0.70); Lymphocytes Absolute Manual 0.83 10^3/uL (1.20-3.80); Macrocytosis 3+; Monocytes Absolute Manual 0.57 10^3/uL (0.30-0.80)
[2024-02-13] MEDS: MIDODRINE HCL 5 MG TABLET 10 MG PO ×2 (09:09→11:01)
[2024-02-13] MEDS: METOPROLOL SUCCINATE 50 MG TAB.ER.24H PO (09:09)
[2024-02-13] MEDS: ASPIRIN 81 MG TABLET.DR PO (09:09)
[2024-02-13] MEDS: SPIRONOLACTONE 25 MG TABLET PO (09:09)
--- NOTE | 2024-02-13 09:57 | PC.NURSE ---
notified physician and receiving distribution station operator of blood pressure at this time
[2024-02-13] MEDS: SODIUM CHLORIDE/ALOE VERA SALINE NASAL GEL 14.1 GM TUBE 1 APPLIC NS (10:31)
[2024-02-13] MEDS: BUMETANIDE 1 MG TABLET 2 MG PO (10:31)
--- NOTE | 2024-02-13 10:58 | SWNOTE1 ---
ELIECER spoke to pt about a ride home. He has reached out to his neighbor who helps as needed, he is waiting to hear back. All his children live [place] of [place]. ELIECER advised pt if he does need ride home we can set him up with trips. Eliecer let pt know that SW will send dc information to [facility]. Pt has already spoke to his nurse and he is supposed to have nurse apt tomorrow.
--- NOTE | 2024-02-13 11:20 | SWNOTE1 ---
SW went back in and spoke with pt. His neighbor is busy right now and would not be able to get him until 5:00pm. He is alright with SW setting up trips, he would like to eat lunch first. SW updated nursing.
--- NOTE | 2024-02-13 11:25 | CM.NOTE ---
Rounds made with Dr. Escalante, pt will discharge to home today. Discussed with pt about change in medications. Discussed with RN about doing walk test to see what flow of oxygen pt will need at discharge. Pt has home oxygen @2L [place] at this time.
--- NOTE | 2024-02-13 11:27 | SWNOTE1 ---
MENDOZA called Ben's original script for home oxygen was for 2 liters NC. MENDOZA let nursing know and may need to increase his o2 at home. MENDOZA also messaged nurse practitioner.
--- NOTE | 2024-02-13 11:37 | SWNOTE1 ---
Pt did use 4 liters during his walk test. SW sent over new script and walk test and documentation to [facility].
--- NOTE | 2024-02-13 11:55 | P.DS_ITS ---
<Statement entered by Joel Escalante MD - 02/13/24 21:16> Patient seen and examined, agree with assessment and plan below. Admitted with fluid overload and responded well to IV lasix. Discussed with cardiology and added aldactone. Discharged home on oral bumex. Will follow up with cardiology in 1-2 weeks. Diagnosis: 1. Acute on chronic HFrEF 2. Chronic hypoxic respiratory failure 3. HTN 4. Afib 5. CAD 6. CKD 3b DS: Providers Provider Date of admission: 02/11/24 19:07 Primary care physician: Timo Bar DO Consults: 02/12/24 Occupational Therapy Eval and Treat Routine Reason for consultation: weakness Physical Therapy Eval and Treat Routine Reason for consultation: weakness 02/12/24 07:00 Consult to Cardiology Routine Reason for consultation: Acute CHF exac; has appt 02/11 @10:15 am Has provider been notified: No Discharging clinician: Rosenda Ramirez DS: Diagnosis Discharge Diagnosis (1) Acute on chronic HFrEF (heart failure with reduced ejection fraction): (2) Acute respiratory failure with hypoxia: (3) Thrombocytopenia: (4) Anemia: Qualifiers: Anemia type: due to chronic kidney disease Chronic kidney disease stage: stage 3 (moderate) Chronic kidney disease stage 3 subtype: unspecified whether 3a or 3b Qualified Code(s): N18.30 - Chronic kidney disease, stage 3 unspecified; D63.1 - Anemia in chronic kidney disease (5) OAB (overactive bladder): (6) Paroxysmal A-fib: (7) Stage 3b chronic kidney disease (CKD): (8) Atherosclerotic heart disease of [place] coronary artery without angina pectoris: (9) Hypotension: (10) Subclinical hypothyroidism: DS: Summary Hospital Course Hospital Course: The patient was admitted with an acute on chronic HFrEF exacerbation with acute on chronic respiratory failure with hypoxia. He was treated with IVP Lasix with adequate urinary output. He was negative over 2 L by the time of discharge, but was not completely euvolemic. Cardiology was consulted and they deferred inpatient evaluation and will follow-up with him as an outpatient. They recommended converting the patient's oral diuretic to Bumex with the addition of spironolactone. As cardiology prefers to manage this as an outpatient and the patient is improved, he is being discharged home in stable condition. His O2 supplementation has been increased from 2 L to 2 to 4 L as needed to keep his sats above 90%. He should take Bumex 2 mg and spironolactone as prescribed and follow a 1500 ml fluid restriction. Weekly labs will be drawn by his home health nurse with results to his PCP and his cardiology group to monitor his renal function on these new diuretics. He should follow-up with cardiology as soon as can be arranged and with his PCP in 3 to 5 days. Time Spent with Patient Time attestation: Total time spent providing and/or coordinating discharge services: Time spent: greater than 30 minutes Specific discharge activities: Physical exam, discussion of discharge plan, questions answered. Exam Constitutional Vital Signs, click to edit/add: Last Vital Signs Temp 97.0 F L 02/13/24 11:48 Pulse 70 02/13/24 11:48 Resp 18 02/13/24 11:48 BP 101/52 02/13/24 11:48 Pulse Ox 95 02/13/24 11:48 O2 Del Method Nasal Cannula 02/13/24 11:48 O2 Flow Rate 4 02/13/24 11:48 Common normals: no apparent distress, oriented x3 and alert General appearance: cooperative Orientation/consciousness: Yes awake HENMT Common normals: normocephalic and head/scalp atraumatic Eye Common normals: PERRL, EOMs intact bilaterally, conjunctivae normal and no scleral icterus Neck & C-Spine Common normals: no JVD Respiratory Common normals: normal respiratory effort and no use of accessory muscles Effort & inspection: able to speak in complete sentences and symmetric chest movement Auscultation: crackles (BLL - Improved) Cardio Common normals: no JVD, regular rate, regular rhythm, S1 normal heart sound, S2 normal heart sound, no murmurs and peripheral pulses 2+ throughout GI Common normals: Normal to inspection, nondistended, normoactive bowel sounds present, soft to palpation and non-tender Bladder/kidney exam: bladder normal to palpation Extremity Common normals: normal to inspection, full ROM and normal capillary refill General: edema (BLE- mid weaver to toes, 3+); no clubbing and no cyanosis Neuro Common normals: moves all extremities, no focal motor deficits and no sensory deficits noted Speech: speech normal Psych Common normals: mental status grossly normal and activity/motor behavior normal DS: Data Data Completed and Pending Labs on day of discharge: Labs from last 24 hours 02/13/24 04:31 WBC 4.4 RBC 2.33 L Hgb 8.1 L Hct 25.9 L MCV 111.2 H MCH 34.8 H MCHC 31.3 RDW 16.4 H Plt Count 73 L MPV 11.4 Seg Neuts % (Manual) 65.0 Lymphocytes % (Manual) 19.0 L Monocytes % (Manual) 13.0 H Eosinophils % (Manual) 3.0 Basophils % (Manual) 0.0 L Neutrophils # (Manual) 2.86 Band Neutrophils # 0.8 H Lymphocytes # (Manual) 0.83 L Monocytes # (Manual) 0.57 Eosinophils # (Manual) 0.13 Basophils # (Manual) 0.00 Anisocytosis 3+ Macrocytosis 3+ Sodium 138 Potassium 3.7 Chloride 100 Carbon Dioxide 30.7 Anion Gap 11.0 BUN 43.0 H Creatinine 1.46 H Est GFR ( Amer) 55 L Est GFR (Non-Af Amer) 45 L BUN/Creatinine Ratio 29.5 Glucose 99 Calcium 8.7 Total Bilirubin 1.9 H AST 11 L ALT 13 L Alkaline Phosphatase 103 NT-Pro-B Natriuret Pep 4752.0 H* Total Protein 6.6 Albumin 2.7 L Globulin 3.9 Albumin/Globulin Ratio 0.7 Imaging Chest x-ray: Radiologist's impression: Findings and impression: 1. Interstitial pulmonary edema. Mild underlying inflammatory or infectious pneumonitis would be difficult to exclude 2. Cardiomegaly with evidence of prior open heart surgery. Patient has also had left atrial appendage clipping. Right atrial, right ventricular pacing lead present. 3. Minimal atelectasis in the left lung base. Calcified granuloma also seen in the left mid to lower lung zone. 4. No acute osseous abnormality. Discharge Plan Discharge Disposition: Home Health Service Condition: Fair Discharge Medications: New bumetanide 2 mg tablet 2 mg PO DAILY Qty: 30 0RF spironolactone 25 mg tablet 25 mg PO DAILY Qty: 30 0RF Continued oxybutynin chloride 5 mg tablet extended release 24hr 5 mg PO Q24H digoxin 125 mcg (0.125 mg) tablet 0.125 mg PO Q24H aspirin [Janice Low Dose Aspirin] 81 mg tablet,delayed release (DR/EC) 81 mg PO DAILY metoprolol succinate 50 mg tablet extended release 24 hr 50 mg PO QDAY melatonin 5 mg tablet 5 mg PO QPM PRN (Reason: sleep) levothyroxine 100 mcg Tablet 100 mcg PO ACB Qty: 30 0RF midodrine 5 mg Tablet 10 mg PO TID Qty: 90 0RF Discontinued furosemide 40 mg tablet 40 mg PO Q24H Activity: increase activity as tolerated Diet: advance to your usual diet Print Language: Swedish Patient Instructions: Spironolactone (By mouth), Bumetanide (By mouth) (Bumex), Heart Failure (DC) Activity Restrictions/Additional Instructions: - Recommend BMP weekly x 3 weeks to monitor renal function after diuretic changes. OK for nursing to draw - results to PCP & [place] cardiology - 1500 ml Fluid restriction Pattern Drafter/Curtain Cutter Instructions: Resume [facility], phone number is [phone]. New script for oxygen was sent to [facility], will be on 4 liters of oxygen. [facility] phone number is [phone] Forms: Portal Instructions Follow Up Appointments: . February 19 @ 1:45pm with Dr. Bar [phone] . February 21 @ 10am with [facility] [phone]
--- NOTE | 2024-02-13 12:46 | SWNOTE1 ---
MENDOZA spoke with pt again to let him know [facility] will be here between 1:30-2. Physical therapy in room as well. Pt did ask if trips will take him in to the home. MENDOZA explained trips does not usually walk pt to the door. Pt also had concern about going home with a tank and then connecting it to his home oxygen. MENDOZA recommended he call [facility] once he arrives home so they can walk him through the process. He also voiced his neighbor is coming over today as well and picking up his scripts and she is a nurse. MENDOZA recommend he has his neighbor check his oxygen as well. SW also let pt know if he is more comfortable with neighbor taking him home we can wait until she can later today. He voiced he does not want to inconvenience her as she has a class and grandkids, etc. MENDOZA again recommended he call [facility] once he arrives home. He voiced he may call while he is sitting here waiting.
--- NOTE | 2024-02-13 13:13 | PT.DAILY ---
Physical Therapy Daily Note PT Daily Note/Assess Start: 02/13/24 13:04 Freq: Status: Active Protocol: Document 02/13/24 13:05 NUSRAT (Rec: 02/13/24 13:12 NUSRAT [id number]) Physical Therapy Daily Note/Assessment Time In/Time Out Time In 12:15 Time Out 12:45 Pain In Pain N/A Pain Out Pain N/A Subjective Subjective No pain. On 4L O2 Spo2 95% upon arrival. Therapeutic Exercise Time Therapeutic Exercise Minutes (minutes) 5 Therapeutic Exercise Units 0 Therapeutic Exercise Treatment Therapeutic Exercise Treatment Seated bilat LE strengthening ex complete while sitting in BS chair. Min SOB with this SpO2 remains between 89-92% with this. Therapeutic Activity Time Therapeutic Activity Minutes (minutes) 20 Therapeutic Activity Units 2 Therapeutic Activity Treatment Chair Transfer Ability Modified Independent Therapeutic Activity Comments Sit>stand Nimo with assist for O2 lines. Pt amb 4 laps in room with SUP - assist for O2 lines. 130' total - good balance on turns. SOB with this. Spo2 does drop to 85% with this activity taking 3 min to recover to low 90's consistently. Vc for breathing techniques for quicker recovery time. Pt assisted to get dressed to prep for DC. Need assistance doffing his ayan hose and donning his sock, pants, and shoes. pt states he loses his breath when bending over for too long to kriss these things. pt is able to kriss his shirt Nimo as he needs assistance to remove and return O2 back on. Pt sit> stand to pull up pants Nimo. Returned to sitting. No LOB with this just Min SOB. Spo2 89% upon completion on 4L O2. remains in BS chair upon completion with call light in reach and needs met. Total Physical Therapy Time Total Therapy Minutes 25 Total Physical Therapy Units 2 Summary Daily Note Summary NO AD used for gait and pt is steady. Min SOB with activity with O2 dropping. Planned dc home with home O2.
--- NOTE | 2024-02-13 13:49 | SWNOTE1 ---
MENDOZA sent updated script for 2-4 liters as needed to [facility] for pt's home oxygen. MENDOZA advised pt of this change. SW also spoke with trips and they will take him to the door. SW let pt know. Pt spoke with [facility] and they are not in service area, but advised pt that when he returns home there is a switch on concentrator to flip. Pt voiced he can call them for assistance once he is home if needed.
--- NOTE | 2024-02-14 15:06 | CM.DCFOLLOWU ---
Person spoke with: Samson Kelley How are you feeling? fine How is your pain? NA Did you understand your discharge instructions? yes Do you have any questions about your discharge instructions?no Were you given any prescriptions at discharge?yes Were you able to get your prescriptions filled?yes Do you understand how to take your medications as ordered?yes Do you have any questions about your follow up appointment and do you plan to keep your follow up appointment? no questions , he plans to go to both followup appts with Dr. Bar & [facility] Cardiology Is there anything else that you would like to discuss? no Questions/Comments/Concerns/Other:none
== END 2024-02-13 13:46 | disposition home health service (06) | DRG 291 ==
LOC: ER 19:11 → MS 19:12
PROVIDERS: Nurse Practitioner; Registered Nurse; Admitting Provider Family Medicine; Emergency Provider Emergency Medicine; PCP Internal Medicine; Visit Provider Family Medicine
DX: I13.0 Hypertensive heart and chronic kidney disease with heart failure and stage 1 through stage 4 chronic kidney disease, or unspecified chronic kidney disease (principal); I50.23 Acute on chronic systolic (congestive) heart failure; J96.21 Acute and chronic respiratory failure with hypoxia; I48.0 Paroxysmal atrial fibrillation; I25.10 Atherosclerotic heart disease of native coronary artery without angina pectoris; N18.32 Chronic kidney disease, stage 3b; D69.6 Thrombocytopenia, unspecified; D63.1 Anemia in chronic kidney disease; N32.81 Overactive bladder; E03.8 Other specified hypothyroidism; I95.9 Hypotension, unspecified; Z79.82 Long term (current) use of aspirin; Z79.899 Other long term (current) drug therapy; Z95.0 Presence of cardiac pacemaker; Z99.81 Dependence on supplemental oxygen; Z85.46 Personal history of malignant neoplasm of prostate; Z98.890 Other specified postprocedural states; Z79.890 Hormone replacement therapy; Z20.822 Contact with and (suspected) exposure to COVID-19
CPT/HCPCS: 0202U; 36415; 71045; 80048; 80053; 80162; 81001; 83880; 84484; 85007; 85025; 85027; 87040; 93005; 94761; 96374; 96376; 97161; 97165; 97530; 99285

== ENCOUNTER 2024-02-16 10:35 | Outpatient (REF) | payer MEDICARE, OTHER, SELFPAY ==
--- OUTSIDE RECORDS SUMMARY | 2024-02-16 10:47 | XMS_ITS | CCD ---
Author Organization [facility] Care Team Providers Care E Commerce Developer Name Role Phone TIMO FRANCIS Primary Care Physician MARYBETH STANLEY Attending Unavailable KENNETH, MARYBETH Trivedi Attending Unavailable KENNETH, MARYBETH Trivedi Attending Unavailable PENNY, DR MARRUFO Primary Care Unavailable NADERETyler, DR MADISON Arriaza Admitting Unavailable NADERER, DR MADISON Arriaza Attending Unavailable ZIEBER, DR MILAGROS Scott Consulting Unavailable NADERER, DR MADISON Arriaza Consulting Unavailable PAY, DR PENNINGTON Consulting Unavailable KVNG, JAMES GOMEZ Consulting Unavailable BACHRACHLINH Consulting Unavailable PENNY, DR MARRUFO Admitting Unavailable PENNY, DR MARRUFO Attending Unavailable PENNY, DR MARRUFO Primary Care Unavailable PENNY, DR MARRUFO Consulting Unavailable PENNY, DR MARRUFO Admitting Unavailable PENNY, DR MARRUFO Attending Unavailable PENNY, DR MARRUFO Primary Care Unavailable PENYN, DR MARRUFO Consulting Unavailable PENNY, DR MARRUFO Primary Care Unavailable MARIAN, DR ZACH Scott Admitting Unavailable MARIAN, DR ZACH Scott Attending Unavailable MARIAN, DR ZACH Scott Consulting Unavailable ANA DALAL Consulting Unavailable Timo Francis Unavailable EDDIE WEISS [...] Start: 11-22-2023 take 1 capsule by mo [facility] once daily Metoprolol Succinate 50 MG 1 [...] Daily, # 90 tab(s), Refills(s) 3, Pharmacy: [facility], 183, cm, 09/21/22 12:19:00 EDT, Height/Length [...] Translations: [CHRONIC KIDNEY DISEASE STAGE 3A] Onset: 09-14-2022 Chronic ulcer of skin (16 sources) Pressure [...] 08-10-2022 Episodic Other aftercare (6 sources) 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; 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] Onset: 07-08-2022 Episodic Other aftercare (1 source) 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 churn buttermaker (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) use of 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; Translations: [TRAY LINE SUPERVISOR CURRENT USE OF ASPIRIN] Onset: 08-16-2022 Episodic [...] iron 02-07-2024 CT guided bone marrow bx/aspir [facility] [place] [id number] [place] Scan Report Signed Patient: Samson Kelley MR#: [id number] : 1935 Acct:[id number] Age/Sex: 88 / M ADM Date: 02/07/24 Loc: CT Room: Type: [facility] Attending Dr: Martha Meier MD Copies to: [...] Zach Ontiveros M.D.02/07/2024 2:21 PM Dictation Location: [place] [address] Transcribed By: [facility] 02/07/24 1421 Dictated By: Zach Ontiveros II, MD 02/07/24 1418 Signed By: 02/07/24 1421 Normal [facility] Coagulation Profileon 2023 aPTT Coag (Bld) [Time] 41.4 s High 25.1-36.5 [facility] Comment on above: Result Comment: A he matocrit value greater than 55% may lead to inaccurate results in coagulation testing. Patients having hematocrit values >55% require a special collection tube for coagulation studies. Please contact the laboratory at [phone] for redraw instructions. PERFORMED BY: [address] [id number] PATHOLOGIST [employer]WORK PROFESSIONAL DILIA SUAZO M.D. Performed By: #### C , PP #### [address] INR Coag (PPP) [Relative time] 1.2 {INR} Normal [facility] Comment on above: Result Comment: INR [...] Performed By: #### C BC, PP #### [address] PT Coag (PPP) [Time] 13.2 s High 9.0-12.9 [facility] Comment on above: Result Comment: A he matocrit value greater than 55% may lead to inaccurate results in coagulation testing. Patients having hematocrit values >55% require a special collection tube for coagulation studies. Please contact the laboratory at [phone] for redraw instructions. Performed By: #### C BC, PP #### [address] Complete Blood Count Auto Di ffon 02-07-2024 Basophils (Bld) [#/Vol] 0.0 10*3/uL Normal 0.0-0.2 [facility] Comment on above: Result Comment: PERF ORMED BY: [place] [address] PATHOLOGIST [employer] PROFESSIONAL DILIA SUAZO M.D. Performed By: #### C BC, PP #### [address] Basophils/100 WBC (Bld) 0.9 % Normal . [facility] Comment on above: Performed By: #### C BC, PP #### [address] Eosinophils (Bld) [#/Vol] 0.1 10*3/uL Normal 0.0-0.45 [facility] Comment on above: Performed By: #### C BC, PP #### [address] Eosinophils/100 WBC (Bld) 1.8 % Normal . [facility] Comment on above: Performed By: #### C BC, PP #### [address] Erythrocyte distribution width (RBC) [Ratio] 16.5 % High 12.0-14.8 [facility] Comment on above: Performed By: #### C BC, PP #### [facility] [address] Hematocrit (Bld) [Volume fraction] 31.0 % Low 38.8-50.0 [facility] Comment on above: Performed By: #### C BC, PP #### [facility] [address] Hemoglobin (Bld) [Mass/Vol] 10.3 g/dL Low 13.0-17.0 [facility] Comment on above: Performed By: #### C BC, PP #### [facility] [address] Lymphocytes (Bld) [#/Vol] 0.6 10*3/uL Low 1.00-4.8 [facility] Comment on above: Performed By: #### C BC, PP #### [address] Lymphocytes/100 WBC (Bld) 13.7 % Normal . [facility] Comment on above: Performed By: #### C BC, PP #### [address] MCH (RBC) [Entitic mass] 34.5 pg Normal 27.5-35.2 [facility] Comment on above: Performed By: #### C BC, PP #### [address] MCV (RBC) [Entitic vol] 103.8 fL High 83.5-101 [facility] Comment on above: Performed By: #### C BC, PP #### [address] Mean Corpuscular HGB Conc 33.2 g/dL Normal 32.5-35.6 [facility] Comment on above: Performed By: #### C BC, PP #### [address] Monocytes (Bld) [#/Vol] 0.6 10*3/uL Normal 0.0-0.8 [facility] Comment on above: Performed By: #### C BC, PP #### [facility] [address] [place] [address] [place] Monocytes/100 WBC (Bld) 14.1 % Normal . [facility] Comment on above: Performed By: #### C BC, PP #### [facility] [address] Neutrophils (Bld) [#/Vol] 3.1 10*3/uL Normal 1.8-7.7 [facility] Comment on above: Performed By: #### C BC, PP #### [facility] [address] Neutrophils/100 WBC (Bld) 69.5 % Normal . [facility] Comment on above: Performed By: #### C BC, PP #### [facility] [address] NRBC% 0.3 /100{WBC} Normal 0-0.5 [facility] Comment on above: Performed By: #### C BC, PP #### [facility] [address] Platelet mean volume (Bld) [Entitic vol] 9.2 fL Normal 6.6-10.1 [facility] Comment on above: Performed By: #### C BC, PP #### [facility] [address] [place] [id number] [place] Platelets (Bld) [#/Vol] 84 10*3/uL Low 150-450 [facility] Comment on above: Performed By: #### C BC, PP #### [facility] [address] [place] [id number] [place] RBC (Bld) [#/Vol] 2.99 10*6/uL Low 3.90-5.60 [facility] Comment on above: Performed By: #### C BC, PP #### [facility] [address] [place] [address] [place] WBC (Bld) [#/Vol] 4.4 10*3/uL Normal 4.1-10.5 [facility] Comment on above: Performed By: #### C BC, PP #### [facility] [address] 02-07-2024 L Specimen: Received: 02/07/24 Status: PRIYANKA Saravia Num: [id number] Spec Type: Bone Marro Subm Dr: Zach Ontiveros II, MD Tissues: A Bone Marrow Aspirate (Clot) (LT ILIAC CREST) B Bone Marrow Biopsy/Core (LT ILIAC CREST) Procedures: Peripheral Smr, Iron/3, HE/4, Gross/Micro L4/2, Bm Smear/2, CD138, CD20, CD3, Decalcification, Bone Marrow TP, GIEMSA STN/6 Age/ Patient Sex Location Account Attending Physician Samson Kelley 88/M CT [id number] Martha Meier MD SPEC NUM: RECD: 02/07/24 STATUS: PRIYANKA SARAVIA NUM: [id number] AURA: 02/07/[address]: Zach Ontiveros II, MD ENTERED: 02/07/24 [facility] DR: SPEC TYPE: Bone Marro DEPT: BM [...] biopsy is done for further evaluation. Specimen: [id number] Received: 02/07/24 Status: PRIYANKA Saravia Num: [id number] Spec Type: Bone Marro Subm Dr: Zach Ontiveros II, MD Tissues: A Bone Marrow Aspirate (Clot) (LT ILIAC CREST) B Bone Marrow Biopsy/Core (LT ILIAC CREST) Procedures: Peripheral Smr, Iron/3, HE/4, Gross/Micro L4/2, Bm Smear/2, CD138, CD20, CD3, Decalcification, Bone Marrow TP, GIEMSA STN/6 Patient: Samson Kelley [id number] (Continued) Specimen: [id number] Received: 02/07/24 (Continued) Pathological Diagnosis (Continued) Signed (signature on file) Lalita Lipscomb MD 02/09/24 1529 Specimen: [id number] Received: 02/07/24 Status: PRIYANKA Saravia Num: [id number] Spec Type: Bone Marro Subm Dr: Zach Ontiveros, MD LINDA Tissues: A Bone Marrow Aspirate (Clot) (LT ILIAC CREST) B Bone Marrow Biopsy/Core (LT ILIAC CREST) Procedures: Peripheral Smr, Iron/3, HE/4, Gross/Micro L4/2, Bm Smear/2, CD138, CD20, CD3, Decalcification, Bone Marrow TP, GIEMSA STN/6 Patient: Samson Kelley [id number] (Continued) Specimen: [id number] Received: 02/07/24 (Continued) Pathological Diagnosis (Continued) The bone marrow [...] cm portion o (more content not included)... [facility] 36on 02-01-2024 36 Regarding BMP from 01/26/2024: Venecia Flowers, JUAN FRANCISCO Hager, CARLIE Spencer, So Samson needs to see one of the attendings- mckay rodriguez) for his Pulm HTN, HFrEF, worsening renal [...] see Dr. Orosco on 02/12/2024 at 10:15am. [facility] Orders Onlyon 01-31-2024 Orders Only [id number] Samson Kelley 1935 M Date Provider Department Center 01/31/2024 120-VENECIA FLOWERS [facility]. No family history on file [facility] 37on 01-26-2024 37 May take lasix [...] pillows than normal or in recliner. Normal [facility] Office Visiton 01-26-2024 Follow-up visit [id number] Samson Kelley 1935 M Date Provider Department Center 01/26/2024 Nay-VENECIA FLOWERS [facility] No family history on file Level of Service:67826 [place] OFFICE/OUTPATIENT ESTABLISHED MOD MDM 30 MIN Normal [facility] Basophils Auto (Bld) [#/Vol] on 01-12-2024 Basophils (Bld) [#/Vol] 0.0 10 3/uL 0.0-0.1 [facility] Basophils/100 WBC Auto (Bld) on 01-12-2024 Basophils/100 WBC (Bld) 0.2 % 0.2-2.0 [facility] Eosinophils/100 WBC Auto (Bl d)on 01-12-2024 Eosinophils/100 WBC (Bld) 1.2 % 0.9-7.0 [facility] Erythrocyte distribution wid th Auto (RBC) [Ratio]on 01-12-2024 Erythrocyte distribution width (RBC) [Ratio] 15.9 % 11.0-15.0 [facility] Estimated glomerular filtrat ion rate (GFR) non- Americanon 01-12-2024 GFR/1.73 sq M.predicted among non-blacks MDRD (S/P/Bld) [Vol rate/Area] 44 mL/min/{1.73_m2} >=60 [facility] Globulin Calc (S) [Mass/Vol] on 01-12-2024 Globulin (S) [Mass/Vol] 4.3 g/dL [facility] Hematocrit Auto (Bld) [Volum e fraction]on 01-12-2024 Hematocrit (Bld) [Volume fraction] 30.0 % 42.0-54.0 [facility] Hemoglobin [Mass/volume] in Bloodon 01-12-2024 Hemoglobin (Bld) [Mass/Vol] 9.5 g/dL 14.0-18.0 [facility] Laboratory - Chemistry and C hemistry - challengeon 01-12-2024 Albumin [Mass/Vol] 2.9 g/dL 3.4-5.0 [facility] ALP [Catalytic activity/Vol] 93 U/L 46-116 [facility] ALT [Catalytic activity/Vol] 17 U/L 16-63 [facility] AST [Catalytic activity/Vol] 11 U/L 15-37 [facility] Bilirubin [Mass/Vol] 1.9 mg/dL 0.2-1.0 [facility] Calcium [Mass/Vol] 9.0 mg/dL 8.5-10.1 [facility] Chloride [Moles/Vol] 106 mmol/L 98-107 [facility] CO2 [Moles/Vol] 28.1 mmol/L 21.0-32.0 [facility] Creatinine [Mass/Vol] 1.49 mg/dL 0.70-1.[address] [facility] GFR/1.73 sq M.predicted MDRD (S/P/Bld) [Vol rate/Area] 54 mL/min/{1.73_m2} >=60 [facility] Glucose [Mass/Vol] 94 mg/dL 74-106 [facility] Natriuretic peptide B (Bld) [Mass/Vol] 4324.0 pg/mL <=1800.0 [facility] Comment on above: RESULTS CALLED TO SANJUANITA CORNELL RN @BY Radha Corea at 0645 Potassium [Moles/Vol] 4.2 mmol/L 3.5-5.[address] [facility] Protein [Mass/Vol] 7.2 g/dL 6.4-8.2 [facility] Sodium [Moles/Vol] 141 mmol/L 136-145 [facility] Urea nitrogen [Mass/Vol] 52.0 mg/dL 7.0-18.0 [facility] Urea nitrogen/Creatinine [Mass ratio] 34.9 mg/mg [facility] Laboratory - Hematology and Cell countson 01-12-2024 Immature granulocytes/100 WBC (Bld) 0.2 % 0.0-0.5 [facility] Leukocytes [#/volume] correc ayan for nucleated erythrocytes in Blood by Automated counon 01-12-2024 WBC corrected for nucl RBC Auto (Bld) [#/Vol] 4.3 10 3/uL 4.0-11.0 [facility] Lymphocytes Auto (Bld) [#/Vo l]on 01-12-2024 Lymphocytes (Bld) [#/Vol] 0.9 10 3/uL 1.2-3.8 [facility] Lymphocytes/100 WBC Auto (Bl d)on 01-12-2024 Lymphocytes/100 WBC (Bld) 19.9 % 20.5-60.0 [facility] MCH Auto (RBC) [Entitic mass ]on 01-12-2024 MCH (RBC) [Entitic mass] 34.5 pg 25.9-34.0 [facility] MCHC Auto (RBC) [Mass/Vol]on 01-12-2024 MCHC (RBC) [Mass/Vol] 31.7 g/dL 29.9-35.[address] [facility] MCV Auto (RBC) [Entitic vol] on 01-12-2024 MCV (RBC) [Entitic vol] 109.1 fL 80.0-94.0 [facility] Monocytes Auto (Bld) [#/Vol] on 01-12-2024 Monocytes (Bld) [#/Vol] 0.7 10 3/uL 0.3-0.8 [facility] Monocytes/100 WBC Auto (Bld) on 01-12-2024 Monocytes/100 WBC (Bld) 16.9 % 1.7-12.0 [facility] Neutrophils Auto (Bld) [#/Vo l]on 01-12-2024 Neutrophils (Bld) [#/Vol] 2.7 10 3/uL 1.4-6.5 [facility] Neutrophils/100 WBC Auto (Bl d)on 01-12-2024 Neutrophils/100 WBC (Bld) 61.6 % 43.0-75.0 [facility] No Panel Informationon 01-12 Digoxin Level 1.4 ng/mL 0.9-2.0 [facility] Eosinophils # (Auto) 0.1 10 3/uL 0.0-0.[address] [facility] Immature Granulocyte # (Auto) 0.01 10 3/uL 0.00-0.03 [facility] Platelet mean volume Auto (B ld) [Entitic vol]on 01-12-2024 Platelet mean volume (Bld) [Entitic vol] 11.5 fL 9.5-13.5 [facility] Platelets Auto (Bld) [#/Vol] on 01-12-2024 Platelets (Bld) [#/Vol] 69 10 3/uL 150-450 [facility] RBC Auto (Bld) [#/Vol]on RBC (Bld) [#/Vol] 2.75 10 6/uL 4.70-6.10 [facility] Serum or plasma albumin/glob ulin mass ratioon 01-12-2024 Albumin/Globulin [Mass ratio] 0.7 {ratio} [facility] Serum or plasma anion gap de terminationon 01-12-2024 Anion gap [Moles/Vol] 11.1 mmol/L [facility] Basophils Auto (Bld) [#/Vol] on 01-11-2024 Basophils (Bld) [#/Vol] 0.0 10 3/uL 0.0-0.1 [facility] Basophils/100 WBC Auto (Bld) on 01-11-2024 Basophils/100 WBC (Bld) 0.4 % 0.2-2.0 [facility] Eosinophils/100 WBC Auto (Bl d)on 01-11-2024 Eosinophils/100 WBC (Bld) 0.8 % 0.9-7.0 [facility] Erythrocyte distribution wid th Auto (RBC) [Ratio]on 01-11-2024 Erythrocyte distribution width (RBC) [Ratio] 16.2 % 11.0-15.0 [facility] Estimated glomerular filtrat ion rate (GFR) non- Americanon 01-11-2024 GFR/1.73 sq M.predicted among non-blacks MDRD (S/P/Bld) [Vol rate/Area] 40 mL/min/{1.73_m2} >=60 [facility] Globulin Calc (S) [Mass/Vol] on 01-11-2024 Globulin (S) [Mass/Vol] 4.7 g/dL [facility] Hematocrit Auto (Bld) [Volum e fraction]on 01-11-2024 Hematocrit (Bld) [Volume fraction] 32.4 % 42.0-54.0 [facility] Hemoglobin [Mass/volume] in Bloodon 01-11-2024 Hemoglobin (Bld) [Mass/Vol] 10.0 g/dL 14.0-18.0 [facility] Laboratory - Chemistry and C hemistry - challengeon 01-11-2024 Albumin [Mass/Vol] 3.0 g/dL 3.4-5.0 [facility] ALP [Catalytic activity/Vol] 95 U/L 46-116 [facility] ALT [Catalytic activity/Vol] 20 U/L 16-63 [facility] AST [Catalytic activity/Vol] 13 U/L 15-37 [facility] Bilirubin [Mass/Vol] 1.9 mg/dL 0.2-1.0 [facility] Calcium [Mass/Vol] 9.0 mg/dL 8.5-10.1 [facility] Chloride [Moles/Vol] 103 mmol/L 98-107 [facility] CO2 [Moles/Vol] 27.5 mmol/L 21.0-32.0 [facility] Creatinine [Mass/Vol] 1.64 mg/dL 0.70-1.[address] [facility] GFR/1.73 sq M.predicted MDRD (S/P/Bld) [Vol rate/Area] 48 mL/min/{1.73_m2} >=60 [facility] Glucose [Mass/Vol] 90 mg/dL 74-106 [facility] Natriuretic peptide B (Bld) [Mass/Vol] 3351.0 pg/mL <=1800.0 [facility] Comment on above: RESULTS CALLED TO PATY PATTON RN @BY Radha Corea at 0640 Potassium [Moles/Vol] 4.2 mmol/L 3.5-5.[address] [facility] Protein [Mass/Vol] 7.7 g/dL 6.4-8.2 [facility] Sodium [Moles/Vol] 141 mmol/L 136-145 [facility] Urea nitrogen [Mass/Vol] 54.0 mg/dL 7.0-18.0 [facility] Urea nitrogen/Creatinine [Mass ratio] 32.9 mg/mg [facility] Laboratory - Hematology and Cell countson 01-11-2024 Immature granulocytes/100 WBC (Bld) 0.2 % 0.0-0.5 [facility] Leukocytes [#/volume] correc ayan for nucleated erythrocytes in Blood by Automated counon 01-11-2024 WBC corrected for nucl RBC Auto (Bld) [#/Vol] 4.8 10 3/uL 4.0-11.0 [facility] Lymphocytes Auto (Bld) [#/Vo l]on 01-11-2024 Lymphocytes (Bld) [#/Vol] 0.9 10 3/uL 1.2-3.8 [facility] Lymphocytes/100 WBC Auto (Bl d)on 01-11-2024 Lymphocytes/100 WBC (Bld) 18.6 % 20.5-60.0 [facility] MCH Auto (RBC) [Entitic mass ]on 01-11-2024 MCH (RBC) [Entitic mass] 34.0 pg 25.9-34.0 [facility] MCHC Auto (RBC) [Mass/Vol]on 01-11-2024 MCHC (RBC) [Mass/Vol] 30.9 g/dL 29.9-35.[address] [facility] MCV Auto (RBC) [Entitic vol] on 01-11-2024 MCV (RBC) [Entitic vol] 110.2 fL 80.0-94.0 [facility] Monocytes Auto (Bld) [#/Vol] on 01-11-2024 Monocytes (Bld) [#/Vol] 0.7 10 3/uL 0.3-0.8 [facility] Monocytes/100 WBC Auto (Bld) on 01-11-2024 Monocytes/100 WBC (Bld) 14.9 % 1.7-12.0 [facility] Neutrophils Auto (Bld) [#/Vo l]on 01-11-2024 Neutrophils (Bld) [#/Vol] 3.1 10 3/uL 1.4-6.5 [facility] Neutrophils/100 WBC Auto (Bl d)on 01-11-2024 Neutrophils/100 WBC (Bld) 65.1 % 43.0-75.0 [facility] No Panel Informationon 01-11 Digoxin Level 1.5 ng/mL 0.9-2.0 [facility] Eosinophils # (Auto) 0.0 10 3/uL 0.0-0.[address] [facility] Immature Granulocyte # (Auto) 0.01 10 3/uL 0.00-0.03 [facility] Platelet mean volume Auto (B ld) [Entitic vol]on 01-11-2024 Platelet mean volume (Bld) [Entitic vol] 11.2 fL 9.5-13.5 [facility] Platelets Auto (Bld) [#/Vol] on 01-11-2024 Platelets (Bld) [#/Vol] 71 10 3/uL 150-450 [facility] RBC Auto (Bld) [#/Vol]on RBC (Bld) [#/Vol] 2.94 10 6/uL 4.70-6.10 [facility] Serum or plasma albumin/glob ulin mass ratioon 01-11-2024 Albumin/Globulin [Mass ratio] 0.6 {ratio} [facility] Serum or plasma anion gap de terminationon 01-11-2024 Anion gap [Moles/Vol] 14.7 mmol/L Fi [facility] Basophils Auto (Bld) [#/Vol] on 01-10-2024 Basophils (Bld) [#/Vol] 0.0 10 3/uL 0.0-0.1 [facility] Basophils/100 WBC Auto (Bld) on 01-10-2024 Basophils/100 WBC (Bld) 0.3 % 0.2-2.0 [facility] Eosinophils/100 WBC Auto (Bl d)on 01-10-2024 Eosinophils/100 WBC (Bld) 1.3 % 0.9-7.0 [facility] Erythrocyte distribution wid th Auto (RBC) [Ratio]on 01-10-2024 Erythrocyte distribution width (RBC) [Ratio] 16.1 % 11.0-15.0 [facility] Estimated glomerular filtrat ion rate (GFR) non- Americanon 01-10-2024 GFR/1.73 sq M.predicted among non-blacks MDRD (S/P/Bld) [Vol rate/Area] 39 mL/min/{1.73_m2} >=60 [facility] Globulin Calc (S) [Mass/Vol] on 01-10-2024 Globulin (S) [Mass/Vol] 4.0 g/dL [facility] Hematocrit Auto (Bld) [Volum e fraction]on 01-10-2024 Hematocrit (Bld) [Volume fraction] 30.6 % 42.0-54.0 [facility] Hemoglobin [Mass/volume] in Bloodon 01-10-2024 Hemoglobin (Bld) [Mass/Vol] 9.6 g/dL 14.0-18.0 [facility] Laboratory - Chemistry and C hemistry - challengeon 01-10-2024 Albumin [Mass/Vol] 2.8 g/dL 3.4-5.0 [facility] ALP [Catalytic activity/Vol] 90 U/L 46-116 [facility] ALT [Catalytic activity/Vol] 20 U/L 16-63 [facility] AST [Catalytic activity/Vol] 12 U/L 15-37 [facility] Bilirubin [Mass/Vol] 1.6 mg/dL 0.2-1.0 [facility] Calcium [Mass/Vol] 8.9 mg/dL 8.5-10.1 [facility] Chloride [Moles/Vol] 105 mmol/L 98-107 [facility] CO2 [Moles/Vol] 27.1 mmol/L 21.0-32.0 [facility] Creatinine [Mass/Vol] 1.65 mg/dL 0.70-1.[address] [facility] GFR/1.73 sq M.predicted MDRD (S/P/Bld) [Vol rate/Area] 48 mL/min/{1.73_m2} >=60 [facility] Glucose [Mass/Vol] 91 mg/dL 74-106 [facility] Natriuretic peptide B (Bld) [Mass/Vol] 2269.0 pg/mL <=1800.0 [facility] Comment on above: RESULTS CALLED TO [Aristeo PERALTA/RN]@BY Adeline Sam 0643 Potassium [Moles/Vol] 4.9 mmol/L 3.5-5.[address] [facility] Protein [Mass/Vol] 6.8 g/dL 6.4-8.2 [facility] Sodium [Moles/Vol] 140 mmol/L 136-145 [facility] T4 [Mass/Vol] 5.20 ug/dL 4.50-12.10 [facility] Urea nitrogen [Mass/Vol] 63.0 mg/dL 7.0-18.0 [facility] Urea nitrogen/Creatinine [Mass ratio] 38.2 mg/mg [facility] Laboratory - Hematology and Cell countson 01-10-2024 Immature granulocytes/100 WBC (Bld) 0.3 % 0.0-0.5 [facility] Leukocytes [#/volume] correc ayan for nucleated erythrocytes in Blood by Automated counon 01-10-2024 WBC corrected for nucl RBC Auto (Bld) [#/Vol] 3.9 10 3/uL 4.0-11.0 [facility] Lymphocytes Auto (Bld) [#/Vo l]on 01-10-2024 Lymphocytes (Bld) [#/Vol] 0.9 10 3/uL 1.2-3.8 [facility] Lymphocytes/100 WBC Auto (Bl d)on 01-10-2024 Lymphocytes/100 WBC (Bld) 21.8 % 20.5-60.0 [facility] MCH Auto (RBC) [Entitic mass ]on 01-10-2024 MCH (RBC) [Entitic mass] 34.7 pg 25.9-34.0 [facility] MCHC Auto (RBC) [Mass/Vol]on 01-10-2024 MCHC (RBC) [Mass/Vol] 31.4 g/dL 29.9-35.[address] [facility] MCV Auto (RBC) [Entitic vol] on 01-10-2024 MCV (RBC) [Entitic vol] 110.5 fL 80.0-94.0 [facility] Monocytes Auto (Bld) [#/Vol] on 01-10-2024 Monocytes (Bld) [#/Vol] 0.6 10 3/uL 0.3-0.8 [facility] Monocytes/100 WBC Auto (Bld) on 01-10-2024 Monocytes/100 WBC (Bld) 15.4 % 1.7-12.0 [facility] Neutrophils Auto (Bld) [#/Vo l]on 01-10-2024 Neutrophils (Bld) [#/Vol] 2.4 10 3/uL 1.4-6.5 [facility] Neutrophils/100 WBC Auto (Bl d)on 01-10-2024 Neutrophils/100 WBC (Bld) 60.9 % 43.0-75.0 [facility] No Panel Informationon 01-10 Digoxin Level 1.6 ng/mL 0.9-2.0 [facility] Eosinophils # (Auto) 0.1 10 3/uL 0.0-0.[address] [facility] Free Triiodothyronine 1.89 pg/mL 2.18-3.[address] [facility] Immature Granulocyte # (Auto) 0.01 10 3/uL 0.00-0.03 [facility] Platelet mean volume Auto (B ld) [Entitic vol]on 01-10-2024 Platelet mean volume (Bld) [Entitic vol] 11.8 fL 9.5-13.5 [facility] Platelets Auto (Bld) [#/Vol] on 01-10-2024 Platelets (Bld) [#/Vol] 66 10 3/uL 150-450 [facility] RBC Auto (Bld) [#/Vol]on RBC (Bld) [#/Vol] 2.77 10 6/uL 4.70-6.10 [facility] Serum or plasma albumin/glob ulin mass ratioon 01-10-2024 Albumin/Globulin [Mass ratio] 0.7 {ratio} [facility] Serum or plasma anion gap de terminationon 01-10-2024 Anion gap [Moles/Vol] 12.8 mmol/L [facility] Basophils Auto (Bld) [#/Vol] on 01-09-2024 Basophils (Bld) [#/Vol] 0.0 10 3/uL 0.0-0.1 [facility] Basophils/100 WBC Auto (Bld) on 01-09-2024 Basophils/100 WBC (Bld) 0.3 % 0.2-2.0 [facility] Eosinophils/100 WBC Auto (Bl d)on 01-09-2024 Eosinophils/100 WBC (Bld) 1.5 % 0.9-7.0 [facility] Erythrocyte distribution wid th Auto (RBC) [Ratio]on 01-09-2024 Erythrocyte distribution width (RBC) [Ratio] 16.1 % 11.0-15.0 [facility] Estimated glomerular filtrat ion rate (GFR) non- Americanon 01-09-2024 GFR/1.73 sq M.predicted among non-blacks MDRD (S/P/Bld) [Vol rate/Area] 39 mL/min/{1.73_m2} >=60 [facility] Globulin Calc (S) [Mass/Vol] on 01-09-2024 Globulin (S) [Mass/Vol] 3.9 g/dL [facility] Hematocrit Auto (Bld) [Volum e fraction]on 01-09-2024 Hematocrit (Bld) [Volume fraction] 28.9 % 42.0-54.0 [facility] Hemoglobin [Mass/volume] in Bloodon 01-09-2024 Hemoglobin (Bld) [Mass/Vol] 9.0 g/dL 14.0-18.0 [facility] Laboratory - Chemistry and C hemistry - challengeon 01-09-2024 Albumin [Mass/Vol] 2.8 g/dL 3.4-5.0 [facility] ALP [Catalytic activity/Vol] 82 U/L 46-116 [facility] ALT [Catalytic activity/Vol] 20 U/L 16-63 [facility] AST [Catalytic activity/Vol] 12 U/L 15-37 [facility] Bilirubin [Mass/Vol] 1.3 mg/dL 0.2-1.0 [facility] Calcium [Mass/Vol] 8.7 mg/dL 8.5-10.1 [facility] Chloride [Moles/Vol] 104 mmol/L 98-107 [facility] CO2 [Moles/Vol] 28.1 mmol/L 21.0-32.0 [facility] Creatinine [Mass/Vol] 1.66 mg/dL 0.70-1.[address] [facility] GFR/1.73 sq M.predicted MDRD (S/P/Bld) [Vol rate/Area] 48 mL/min/{1.73_m2} >=60 [facility] Glucose [Mass/Vol] 76 mg/dL 74-106 [facility] Natriuretic peptide B (Bld) [Mass/Vol] 2379.0 pg/mL <=1800.0 [facility] Comment on above: RESULTS CALLED TO SANJUANITA CANALES/RN@BY Adeline Sam 0645 Potassium [Moles/Vol] 4.7 mmol/L 3.5-5.[address] [facility] Protein [Mass/Vol] 6.7 g/dL 6.4-8.2 [facility] Sodium [Moles/Vol] 139 mmol/L 136-145 [facility] Urea nitrogen [Mass/Vol] 69.0 mg/dL 7.0-18.0 [facility] Urea nitrogen/Creatinine [Mass ratio] 41.6 mg/mg [facility] Laboratory - Hematology and Cell countson 01-09-2024 Immature granulocytes/100 WBC (Bld) 0.3 % 0.0-0.5 [facility] Leukocytes [#/volume] correc ayan for nucleated erythrocytes in Blood by Automated counon 01-09-2024 WBC corrected for nucl RBC Auto (Bld) [#/Vol] 3.3 10 3/uL 4.0-11.0 [facility] Lymphocytes Auto (Bld) [#/Vo l]on 01-09-2024 Lymphocytes (Bld) [#/Vol] 0.7 10 3/uL 1.2-3.8 [facility] Lymphocytes/100 WBC Auto (Bl d)on 01-09-2024 Lymphocytes/100 WBC (Bld) 21.6 % 20.5-60.0 [facility] MCH Auto (RBC) [Entitic mass ]on 01-09-2024 MCH (RBC) [Entitic mass] 34.1 pg 25.9-34.0 [facility] MCHC Auto (RBC) [Mass/Vol]on 01-09-2024 MCHC (RBC) [Mass/Vol] 31.1 g/dL 29.9-35.[address] [facility] MCV Auto (RBC) [Entitic vol] on 01-09-2024 MCV (RBC) [Entitic vol] 109.5 fL 80.0-94.0 [facility] Monocytes Auto (Bld) [#/Vol] on 01-09-2024 Monocytes (Bld) [#/Vol] 0.6 10 3/uL 0.3-0.8 [facility] Monocytes/100 WBC Auto (Bld) on 01-09-2024 Monocytes/100 WBC (Bld) 18.3 % 1.7-12.0 [facility] Neutrophils Auto (Bld) [#/Vo l]on 01-09-2024 Neutrophils (Bld) [#/Vol] 1.9 10 3/uL 1.4-6.5 [facility] Neutrophils/100 WBC Auto (Bl d)on 01-09-2024 Neutrophils/100 WBC (Bld) 58.0 % 43.0-75.0 [facility] No Panel Informationon 01-09 Eosinophils # (Auto) 0.1 10 3/uL 0.0-0.[address] [facility] Immature Granulocyte # (Auto) 0.01 10 3/uL 0.00-0.03 [facility] Platelet mean volume Auto (B ld) [Entitic vol]on 01-09-2024 Platelet mean volume (Bld) [Entitic vol] 12.0 fL 9.5-13.5 [facility] Platelets Auto (Bld) [#/Vol] on 01-09-2024 Platelets (Bld) [#/Vol] 76 10 3/uL 150-450 [facility] RBC Auto (Bld) [#/Vol]on RBC (Bld) [#/Vol] 2.64 10 6/uL 4.70-6.10 [facility] Serum or plasma albumin/glob ulin mass ratioon 01-09-2024 Albumin/Globulin [Mass ratio] 0.7 {ratio} [facility] Serum or plasma anion gap de terminationon 01-09-2024 Anion gap [Moles/Vol] 11.6 mmol/L [facility] Laboratory - Chemistry and C hemistry - challengeon 01-08-2024 Free T4 [Mass/Vol] 0.97 ng/dL 0.76-1.46 [facility] TSH Qn 17.442 m[IU]/L 0.358-3.740 [facility] Laboratory - Microbiology an d Antimicrobial susceptibilityon 01-08-2024 S. agalactiae Org specific cx Ql (Vag fld) Not detected NOT DETECTE [facility] No Panel Informationon 01-08 Troponin I High Sensitivity 40.0 pg/mL 4.0-76.1 [facility] Comment on above: CUT-OFF POINTS HAVE [...] kaycee cmplx PCR Not detected NOT DETECTE [facility] Bacteroides fragilis (PCR) Not detected NOT DETECTE [facility] Blood Culture Source Blood [facility] Brittany albicans (PCR) Not detected NOT DETECTE [facility] Brittany auris (PCR) Not detected NOT DETECTE [facility] Brittany glabrata (PCR) Not detected NOT DETECTE [facility] Brittany krusei (PCR) Not detected NOT DETECTE [facility] Brittany parapsilosis (PCR) Not detected NOT DETECTE [facility] Brittany tropicalis (PCR) Not detected NOT DETECTE [facility] Crypto neoformans/gattii (PCR)(LAB) Not detected NOT DETECTE [facility] CTX-M ESBL (PCR) NOT APPLICABLE NOT DETECTE [facility] Enterobacter cloacae complex (PCR) Not detected NOT DETECTE [facility] Enterobacterales (PCR) Not detected NOT DETECTE [facility] Enterococcus faecalis PCR Not detected NOT DETECTE [facility] Enterococcus faecium PCR Not detected NOT DETECTE [facility] Escherichia coli Result Not detected NOT DETECTE [facility] Haemophilus influenzae DNA Not detected NOT DETECTE [facility] IMP (blaIMP) Carbap Res Gene (PCR) NOT APPLICABLE NOT DETECTE [facility] Klebsiella aerogenes (PCR) Not detected NOT DETECTE [facility] Klebsiella oxytoca (PCR) Not detected NOT DETECTE [facility] Klebsiella pneumoniae group (PCR) Not detected NOT DETECTE [facility] KPC (blaKPC) Detection (PCR) NOT APPLICABLE NOT DETECTE [facility] Listeria monocytogenes (PCR) Not detected NOT DETECTE [facility] MCR-1 Resistance Gene NOT APPLICABLE NOT DETECT E [facility] mecA/C & MREJ Antimicrob Resist Gen NOT APPLICABLE NOT DETECTE [facility] mecA/C-Methicillin Resistance Gene NOT APPLICABLE NOT DETECTE [facility] NDM (blaNDM) Detection (PCR) NOT APPLICABLE NOT DETECTE [facility] Neisseria meningitidis (PCR) Not detected NOT DETECTE [facility] Proteus species (PCR) Not detected NOT DETECTE [facility] Pseudomonas aeruginosa (PCR) Not detected NOT DETECTE [facility] Salmonella spp. (PCR) Not detected NOT DETECTE [facility] Serratia marcescens (PCR) Not detected NOT DETECTE [facility] Staphylococcus aureus (PCR)(LAB) Not detected NOT DETECTE [facility] Staphylococcus epidermidis (PCR) Not detected NOT DETECTE [facility] Staphylococcus lugdunensis (TEM-PCR Not detected NOT DETECTE [facility] Staphylococcus species (PCR) Not detected NOT DETECTE [facility] Stenotroph. maltophilia (PCR) Not detected NOT DETECTE [facility] Streptococcus pneumoniae (PCR) Not detected NOT DETECTE [facility] Streptococcus pyogenes (PCR)(LAB) Not detected NOT DETECTE [facility] Streptococcus species (PCR) Not detected NOT DETECTE [facility] Syn OXA-48-like Carb Res Gene (PCR) NOT APPLICABLE NOT DETECTE [facility] Deion/B-Vancomycin Resistance Genes NOT APPLICABLE NOT DETECTE [facility] VIM (blaVIM) Carbap Res Gene (PCR) NOT APPLICABLE NOT DETECTE [facility] No Panel InformationOrdered By: Timo Francis on 01-08-2024 Blood Culture 2 [facility] Blood Culture 1 [facility] Office Visiton 01-01-2024 Follow-up visit [id number] Samson Kelley 1935 M Date Provider Department Center 01/01/2024 1596-MARGARITA HERNANDEZ [facility] No family history on file Level of Service:35818 [place] OFFICE/OUTPATIENT ESTABLISHED MOD MDM 30 MIN Normal [facility] Office Visiton 04-17-2023 Follow-up visit [id number] Samson Kelley 1935 M [facility] Provider Department Center 04/17/2023 166-JUAN LUIS CALVIN [facility] No family history on file Level of Service:58018 [place] OFFICE/OUTPATIENT NEW MODERATE MDM 45-59 MINUTES Reason for Visit and Comments: Establish Care [42] Normal [facility] Ambulatory Visit Summaryon 1 Ambulatory Visit Summary SAMSON KELLEY :1935 Visit Date:09/21/2022 Ambulatory Visit Instructions Your Diagnosis Urge incontinence History of prostate cancer Tests Performed Urnls Dip Stick Auto w/o Microscopy POC 87762 Your Care Team Attending Physician - MARYBETH [...] MERCHANT When: Only if needed Where: [address] [place] [address] [phone] Medications What How Much When Instructions Unchanged oxybutynin (oxybutynin 5 mg ER Tab) 1 Tablets By Mouth Every day Pickup at [facility] Unchanged ascorbic acid (Vitamin C) Every [...] physician if questions or concerns Pharmacy Information [facility]: [address] [place] [phone] [phone] Test Results Urnls Dip Stick Auto w/o Microscopy POC 34917 (09/21/2022) Bilirubin Urine Dipstick - Negative Blood Urine Dipstick - Negative Glucose Urine Dipstick - Negative Ketones Urine Dipstick - Negative Leukocytes Urine Dipstick - Negative Nitrite Urine Dipstick - Negative Protein Urine Dipstick - Negative Specific [place] Urine Dipstick - 1.015 Urine Appearance Urine [...] hematuria History of prostate cancer Hyperlipidemia Hypertension 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 ? Are -Romanian. ? Are obese. ? Have a family [...] (more content not included)... Normal [facility] Ambulatory Visit Summary SAMSON KELLEY :1935 Visit Date:09/21/2022 Ambulatory Visit Instructions Your Diagnosis Urge incontinence History of prostate cancer Tests Performed Urnls Dip Stick Auto w/o Microscopy POC 46350 Your Care Team Attending Physician - MARYBETH STANLEY PA-C Primary Care Physician - TIOM FRANCIS DO This Is Your Medications List [...] MERCHANT When: Only if needed Where: [address] 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 ? Are -Romanian. ? Are obese. ? Have a family [...] (more content not included)... Normal [facility] Patient Educationon 09-21-20 22 Patient [...] Are older than age 65. ? Are -Romanian. ? Are obese. ? Have a family [...] Follow these instructions at home: ? Take [id number]-vbpteba and prescription medicines only as told by [...] (more content not included)... Normal [facility] Urology Office/Clinic Noteon 09-21-2022 Urology [...] yr. Follow-up With When Contact Information MARYBETH STANLEY PA-C, URL Only if needed [address] [place] [address] [phone] Additional Instructions: Patient Education Prostate Cancer I, Rebecca Mares personally scribed for Marybeth Stanley PA-C on 09/21/2022 12:37:29. . Documentation recorded by the scrsalvador Mares accurately reflects the services(s) I performed and decisions made by me. Authenticated by Marybeth Stanley PA-C on 09/21/2022 12:42:06. 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 Normal [facility] Comment on above: Result Comment: Elec tronically Signed By: KENNETH SHEPARD, MARYBETH Trivedi\.br\Date and Time Signed: 09/21/22 13:18 EDT CBC AUTO DIFFon 09-06-2022 BASO # 0.0 103/ul Normal 0.0-0.1 [facility] Comment on above: Performed By: #### C BC #### [facility] [address] [address] [address] Kirk García Basophils/100 WBC (Bld) 0.5 % Normal 0.2-2.0 [facility] Comment on above: Performed By: #### C BC #### [facility] [address] [place] [address] Dr. Kirk García EO # 0.1 103/ul Normal 0.0-0.7 [facility] Comment on above: Performed By: #### C BC #### [facility] [address] [address] [address] Kirk García Eosinophils/100 WBC (Bld) 1.2 % Normal 0.9-7.0 [facility] Comment on above: Performed By: #### C BC #### [facility] [address] [address] [address] Kirk García Erythrocyte distribution width (RBC) [Ratio] 14.2 % Normal 11.0-15.0 [facility] Comment on above: Performed By: #### C BC #### [facility] [address] [address] [address] Kirk García Hematocrit (Bld) [Volume fraction] 35.6 % Critically low 42.0-54.0 [facility] Comment on above: Performed By: #### C BC #### [facility] [address] [address] [address] Kirk García Hemoglobin (Bld) [Mass/Vol] 11.7 g/dL Critically low 14.0-18.0 [facility] Comment on above: Performed By: #### C BC #### [facility] [address] [place] [address] Dr. Kirk García IG # 0.04 10e3/ul Critically high 0.00-0.03 [facility] Comment on above: Performed By: #### C BC #### [facility] [address] [place] [address] Dr. Kirk García IG % 0.6 % Critically high 0.0-0.5 [facility] Comment on above: Performed By: #### C BC #### [facility] [address] [place] [address] Dr. Kirk García LYMPH # 1.7 103/ul Normal 1.2-3.8 [facility] Comment on above: Performed By: #### C BC #### [facility] [address] [place] [address] Dr. Kirk García Lymphocytes/100 WBC (Bld) 25.7 % Normal 20.5-60.0 [facility] Comment on above: Performed By: #### C BC #### [facility] [address] [place] [address] Dr. Kirk García MANUAL DIFF REQ NO Normal [facility] Comment on above: Performed By: #### C BC #### [facility] [address] [place] [address] Dr. Kirk García MCH (RBC) [Entitic mass] 34.1 pg Critically high 25.9-34.0 [facility] Comment on above: Performed By: #### C BC #### [facility] [address] [address] [address] Kirk García MCHC (RBC) [Mass/Vol] 32.9 g/dL Normal 29.9-35.2 [facility] Comment on above: Performed By: #### C BC #### [facility] [address] [address] [address] Kirk García MCV (RBC) [Entitic vol] 103.8 fL Critically high 80.0-94.0 [facility] Comment on above: Performed By: #### C BC #### [facility] [address] [address] [address] Kirk García MONO # 1.1 103/ul Critically high 0.3-0.8 [facility] Comment on above: Performed By: #### C BC #### [facility] [address] [place] [address] Dr. Kirk García Monocytes/100 WBC (Bld) 17.7 % Critically high 1.7-12.0 [facility] Comment on above: Performed By: #### C BC #### [facility] [address] [address] [address] Kirk García NEUT # 3.5 103/ul Normal 1.4-6.5 [facility] Comment on above: Performed By: #### C BC #### [facility] [address] [place] [address] Dr. Kirk García Neutrophils/100 WBC (Bld) 54.3 % Normal 43.0-75.0 [facility] Comment on above: Performed By: #### C BC #### [facility] [address] [address] [address] Kirk García Platelet mean volume (Bld) [Entitic vol] 10.1 fL Normal 9.5-13.5 [facility] Comment on above: Performed By: #### C BC #### [facility] [address] [address] [address] Kirk García PLT 153 103/ul Normal 150-450 [facility] Comment on above: Performed By: #### C BC #### [facility] [address] [address] [address] Kirk García RBC 3.43 106/ul Critically low 4.70-6.10 [facility] Comment on above: Performed By: #### C BC #### [facility] [address] [address] [address] Kirk García WBC 6.5 103/ul Normal 4.0-11.0 [facility] Comment on above: Performed By: #### C BC #### [facility] [address] [address] [address] Kirk García PROF CHEM 8 (BAS METB)on Anion gap [Moles/Vol] 10.8 mmol/L Normal [facility] Comment on above: Performed By: #### B MP #### [facility] [address] [place] [address] Dr. Kirk García Calcium [Mass/Vol] 9.2 mg/dL Normal 8.5-10.1 [facility] Comment on above: Performed By: #### B MP #### [facility] [address] [place] [address] Dr. Kirk García Chloride [Moles/Vol] 101 mmol/L Normal 98-107 [facility] Comment on above: Performed By: #### B MP #### [facility] [address] [place] [address] Dr. Kirk García CO2 [Moles/Vol] 30.9 mmol/L Normal 21.0-32.0 [facility] Comment on above: Performed By: #### B MP #### [facility] [address] [place] [address] Dr. Kirk García Creatinine [Mass/Vol] 1.54 mg/dL Critically high 0.70-1.30 [facility] Comment on above: Performed By: #### B MP #### [facility] [address] [place] [address] Dr. Kirk García EGFR-AF ANDORRAN 52 mL/min/1.73m2 Critically low >=60 [facility] Comment on above: Performed By: #### B MP #### [facility] [address] [address] [address] Kirk García EGFR-NON AF ANDORRAN 43 mL/min/1.73m2 Critically low >=60 [facility] Comment on above: Performed By: #### B MP #### [facility] [address] [address] [address] Kirk García Glucose [Mass/Vol] 106 mg/dL Normal 74-106 [facility] Comment on above: Performed By: #### B MP #### [facility] [address] [address] [address] Kirk García Potassium [Moles/Vol] 4.7 mmol/L Normal 3.5-5.1 [facility] Comment on above: Performed By: #### B MP #### [facility] [address] [address] [address] Kirk García Sodium [Moles/Vol] 138 mmol/L Normal 136-145 [facility] Comment on above: Performed By: #### B MP #### [facility] [address] [address] [address] Kirk García Urea nitrogen [Mass/Vol] 28.0 mg/dL Critically high 7.0-18.0 [facility] Comment on above: Performed By: #### B MP #### [facility] [address] [address] [address] Kirk García Urea nitrogen/Creatinine [Mass ratio] 18.2 mg/mg Normal [facility] Comment on above: Performed By: #### B MP #### [facility] [address] [address] [address] Kirk García CBC W MANUAL DIFFon 08-15-20 22 ATYPICAL LYMPH # 1.62 103/ul Normal [facility] Comment on above: Performed By: #### U MICRO, ERUR #### [facility] [address] [address] [address] Kirk García ATYPICAL LYMPH % 12 % Normal [facility] Comment on above: Performed By: #### U MICRO, ERUR #### [facility] [address] [place] [address] Dr. Kirk García BAND # 0.1 103/ul Normal 0.0-0.3 [facility] Comment on above: Performed By: #### U MICRO, ERUR #### [facility] [address] [place] [address] Dr. Kirk García BAND % 1 % Normal 0-5 [facility] Comment on above: Performed By: #### U MICRO, ERUR #### [facility] [address] [place] [address] Dr. Kirk García BASOM # 0.14 103/ul Critically high 0.00-0.10 [facility] Comment on above: Performed By: #### U MICRO, ERUR #### [facility] [address] [place] [address] Dr. Kirk García BASOM % 1.0 % Normal 0.2-2.0 [facility] Comment on above: Performed By: #### U MICRO, ERUR #### [facility] [address] [place] [address] Dr. Kirk Garíca BLAST # Normal [facility] Comment on above: Performed By: #### U MICRO, ERUR #### [facility] [address] [place] [address] Dr. Kirk García BLAST % Normal [facility] Comment on above: Performed By: #### U MICRO, ERUR #### [facility] [address] [place] [address] Dr. Kirk García CORRECTED WBC Normal 4.0-11.0 [facility] Comment on above: Performed By: #### U MICRO, ERUR #### [facility] [address] [place] [address] Dr. Kirk García EOS # 0.14 103/ul Normal 0.00-0.70 [facility] Comment on above: Performed By: #### U MICRO, ERUR #### [facility] [address] [place] [address] Dr. iKrk García EOS% 1.0 % Normal 0.9-7.0 [facility] Comment on above: Performed By: #### U MICRO, ERUR #### [facility] [address] [address] [address] Kirk García HCT 40.7 % Critically low 42.0-54.0 [facility] Comment on above: Performed By: #### U MICRO, ERUR #### [facility] [address] [address] [address] Kirk García HGB 13.4 g/dl Critically low 14.0-18.0 [facility] Comment on above: Performed By: #### U MICRO, ERUR #### [facility] [address] [address] [address] Kirk García LYMPHM # 0.54 103/ul Critically low 1.20-3.80 [facility] Comment on above: Performed By: #### U MICRO, ERUR #### [facility] [address] [address] [address] Kirk García LYMPHM% 4.0 % Critically low 20.5-60.0 [facility] Comment on above: Performed By: #### U MICRO, ERUR #### [facility] [address] [address] [address] Kirk García MCH 34.2 pg Critically high 25.9-34.0 [facility] Comment on above: Performed By: #### U MICRO, ERUR #### [facility] [address] [address] [address] Kirk García MCHC 32.9 g/dl Normal 29.9-35.2 [facility] Comment on above: Performed By: #### U MICRO, ERUR #### [facility] [address] [address] [address] Kirk García MCV 103.8 fL Critically high 80.0-94.0 [facility] Comment on above: Performed By: #### U MICRO, ERUR #### [facility] [address] [address] [address] Kirk García METAMYELOCYTE # Normal [facility] Comment on above: Performed By: #### U MICRO, ERUR #### [facility] [address] [address] [address] Kirk García METAMYELOCYTE % Normal [facility] Comment on above: Performed By: #### U MICRO, ERUR #### [facility] [address] [address] [address] Kirk García MONOM# 1.08 103/ul Critically high 0.30-0.80 [facility] Comment on above: Performed By: #### U MICRO, ERUR #### [facility] [address] [address] [address] Kirk García MONOM% 8.0 % Normal 1.7-12.0 [facility] Comment on above: Performed By: #### U MICRO, ERUR #### [facility] [address] [place] [address] Dr. Kirk García MPV 10.7 fL Normal 9.5-13.5 [facility] Comment on above: Performed By: #### U MICRO, ERUR #### [facility] [address] [place] [address] Dr. Kirk García MYELOCYTE # Normal [facility] Comment on above: Performed By: #### U MICRO, ERUR #### [facility] [address] [place] [address] Dr. Kirk García MYELOCYTE % Normal [facility] Comment on above: Performed By: #### U MICRO, ERUR #### [facility] [address] [place] [address] Dr. Kirk García NRBC Normal [facility] Comment on above: Performed By: #### U MICRO, ERUR #### [facility] [address] [address] [address] Kirk García PLT 140 103/ul Critically low 150-450 [facility] Comment on above: Performed By: #### U MICRO, ERUR #### [facility] [address] [place] [address] Dr. Kirk García RBC 3.92 106/ul Critically low 4.70-6.10 [facility] Comment on above: Performed By: #### U MICRO, ERUR #### [facility] [address] [address] [address] Kirk García RDW 14.0 % Normal 11.0-15.0 [facility] Comment on above: Performed By: #### U MICRO, ERUR #### [facility] [address] [address] [address] Kirk García SEG # 9.86 103/ul Critically high 1.40-6.50 [facility] Comment on above: Performed By: #### U MICRO, ERUR #### [facility] [address] [address] [address] Kirk García SEG % 73.0 % Normal 43.0-75.0 [facility] Comment on above: Performed By: #### U MICRO, ERUR #### [facility] [address] [place] [address] Dr. Kirk García TOXIC GRANULATION 2+ Normal [facility] Comment on above: Performed By: #### U MICRO, ERUR #### [facility] [address] [place] [address] Dr. Kirk García WBC 13.5 103/ul Critically high 4.0-11.0 [facility] Comment on above: Performed By: #### U MICRO, ERUR #### [facility] [address] [place] [address] Dr. Kirk García PROF 14(COMP METB)on 022 Albumin [Mass/Vol] 3.0 g/dL Critically low 3.4-5.0 [facility] Comment on above: Performed By: #### C MP #### [facility] [address] [place] [address] Dr. Kirk García Albumin/Globulin [Mass ratio] 0.8 {ratio} Normal [facility] Comment on above: Performed By: #### C MP #### [facility] [address] [place] [address] Dr. Kirk García ALP [Catalytic activity/Vol] 81 U/L Normal 46-116 [facility] Comment on above: Performed By: #### C MP #### [facility] [address] [address] [address] Kirk García ALT [Catalytic activity/Vol] 50 U/L Normal 16-63 [facility] Comment on above: Performed By: #### C MP #### [facility] [address] [place] [address] Dr. Kirk García Anion gap [Moles/Vol] 8.2 mmol/L Normal [facility] Comment on above: Performed By: #### C MP #### [facility] [address] [address] [address] Kirk García AST [Catalytic activity/Vol] 14 U/L Critically low 15-37 [facility] Comment on above: Performed By: #### C MP #### [facility] [address] [place] [address] Dr. Kirk García Bilirubin [Mass/Vol] 0.9 mg/dL Normal 0.2-1.0 [facility] Comment on above: Performed By: #### C MP #### [facility] [address] [place] [address] Dr. Kirk García Calcium [Mass/Vol] 9.3 mg/dL Normal 8.5-10.1 [facility] Comment on above: Performed By: #### C MP #### [facility] [address] [place] [address] Dr. Kirk García Chloride [Moles/Vol] 100 mmol/L Normal 98-107 [facility] Comment on above: Performed By: #### C MP #### [facility] [address] [place] [address] Dr. Kirk García CO2 [Moles/Vol] 33.1 mmol/L Critically high 21.0-32.0 [facility] Comment on above: Performed By: #### C MP #### [facility] [address] [place] [address] Dr. Kirk García Creatinine [Mass/Vol] 1.56 mg/dL Critically high 0.70-1.30 [facility] Comment on above: Performed By: #### C MP #### [facility] [address] [place] [address] Dr. Kirk García EGFR-AF ANDORRAN 51 mL/min/1.73m2 Critically low >=60 [facility] Comment on above: Performed By: #### C MP #### [facility] [address] [address] [address] Kirk García EGFR-NON AF ANDORRAN 42 mL/min/1.73m2 Critically low >=60 [facility] Comment on above: Performed By: #### C MP #### [facility] [address] [address] [address] Kirk García Globulin (S) [Mass/Vol] 3.7 g/dL Normal [facility] Comment on above: Performed By: #### C MP #### [facility] [address] [address] [address] Kirk García Glucose [Mass/Vol] 107 mg/dL Critically high 74-106 [facility] Comment on above: Performed By: #### C MP #### [facility] [address] [address] [address] Kirk García Potassium [Moles/Vol] 5.3 mmol/L Critically high 3.5-5.1 [facility] Comment on above: Performed By: #### C MP #### [facility] [address] [address] [address] Kirk García Protein [Mass/Vol] 6.7 g/dL Normal 6.4-8.2 [facility] Comment on above: Performed By: #### C MP #### [facility] [address] [address] [address] Kirk García Sodium [Moles/Vol] 136 mmol/L Normal 136-145 [facility] Comment on above: Performed By: #### C MP #### [facility] [address] [address] [address] Kirk García Urea nitrogen [Mass/Vol] 50.0 mg/dL Critically high 7.0-18.0 [facility] Comment on above: Performed By: #### C MP #### [facility] [address] [address] [address] Kirk García Urea nitrogen/Creatinine [Mass ratio] 32.1 mg/mg Normal [facility] Comment on above: Performed By: #### C MP #### [facility] [address] [address] [address] Kirk García CULTURE URINEon 08-14-2022 CULTURE URINE Culture Observations: NO GROWTH. Normal [facility] Comment on above: Performed By: #### U MICRO, ERUR #### [facility] [address] [address] [address] Kirk García ER URINE PROFILEon Bilirubin Ql (U) Negative Normal NEGATIVE [facility] Comment on above: Performed By: #### U MICRO, ERUR #### [facility] [address] [place] [address] Dr. Kirk García Clarity (U) CLEAR Normal CLEAR [facility] Comment on above: Performed By: #### U MICRO, ERUR #### [facility] [address] [place] [address] Dr. Kirk García Color (U) ORANGE Abnormal YELLOW [facility] Comment on above: Performed By: #### U MICRO, ERUR #### [facility] [address] [place] [address] Dr. Kirk GRUBBS A micrscopic examination will be performed if indicated. Normal [facility] Comment on above: Performed By: #### U MICRO, ERUR #### [facility] [address] [place] [address] Dr. Kirk García Glucose Ql (U) Negative Normal NEGATIVE [facility] Comment on above: Performed By: #### U MICRO, ERUR #### [facility] [address] [address] [address] Kirk García Hemoglobin Ql (U) LARGE Abnormal NEGATIVE [facility] Comment on above: Performed By: #### U MICRO, ERUR #### [facility] [address] [place] [address] Dr. Kirk García Ketones Ql (U) TRACE Abnormal NEGATIVE [facility] Comment on above: Performed By: #### U MICRO, ERUR #### [facility] [address] [place] [address] Dr. Kirk García LEUKOCYTES MODERATE Abnormal NEGATIVE [facility] Comment on above: Performed By: #### U MICRO, ERUR #### [facility] [address] [place] [address] Dr. Kirk García Nitrite Ql (U) Negative Normal NEGATIVE [facility] Comment on above: Performed By: #### U MICRO, ERUR #### [facility] [address] [place] [address] Dr. Kirk García pH (U) 5.5 [pH] Normal 5-9 [facility] Comment on above: Performed By: #### U MICRO, ERUR #### [facility] [address] [place] [address] Dr. Kirk García Protein (U) [Mass/Vol] 100 mg/dL Abnormal NEGAT DANYELL/ TRACE [facility] Comment on above: Performed By: #### U MICRO, ERUR #### [facility] [address] [place] [address] Dr. Kirk García SPEC GRAVITY 1.025 Normal 1.005-<=1.02 5 [facility] Comment on above: Performed By: #### U MICRO, ERUR #### [facility] [address] [place] [address] Dr. Kirk García UR MICRO IND INDICATED Normal [facility] Comment on above: Performed By: #### U MICRO, ERUR #### [facility] [address] [place] [address] Dr. Kirk García Urobilinogen Qn (U) 1.0 {Ryan'U}/dL Normal 0.2 - 1. 0 [facility] Comment on above: Performed By: #### U MICRO, ERUR #### [facility] [address] [place] [address] Dr. Kirk García URINE MICROSCOPIC ONLYon BACTERIA SMALL Abnormal NONE SEEN [facility] Comment on above: Performed By: #### U MICRO, ERUR #### [facility] [address] [place] [address] Dr. Kirk García Bacteria identified Cx Nom (U) INDICATED Normal [facility] Comment on above: Performed By: #### U MICRO, ERUR #### [facility] [address] [address] [address] Kirk Garcaí CAST NONE SEEN Normal NONE SEEN [facility] Comment on above: Performed By: #### U MICRO, ERUR #### [facility] [address] [address] [address] Kirk García Crystals LM Nom (Urine sed) NONE SEEN Normal NONE SEEN [facility] Comment on above: Performed By: #### U MICRO, ERUR #### [facility] [address] [address] [address] Kirk García Epithelial cells LM Ql (Urine sed) RARE Normal NONE SEEN /RARE [facility] Comment on above: Performed By: #### U MICRO, ERUR #### [facility] [address] [place] [address] Dr. Kirk García MUCOUS NONE SEEN Normal NONE SEEN [facility] Comment on above: Performed By: #### U MICRO, ERUR #### [facility] [address] [address] [address] Kirk García RBC 75-100 Abnormal 0-2 [facility] Comment on above: Performed By: #### U MICRO, ERUR #### [facility] [address] [place] [address] Dr. Kirk García WBC 50-75 Abnormal NONE SEEN [facility] Comment on above: Performed By: #### U MICRO, ERUR #### [facility] [address] [address] [address] Kirk García XR KNEE WILBER 4V [...] ANA DALAL Date: 2022-08-14 21:09 Normal [facility] CBC W MANUAL DIFFon 08-04-20 22 ATYPICAL LYMPH # Normal [facility] Comment on above: Performed By: #### C CHRISTOPHER #### [facility] [address] [place] [address] Dr. Kirk García ATYPICAL LYMPH % Normal [facility] Comment on above: Performed By: #### C CHRISTOPHER #### [facility] [address] [address] [address] Kirk García BAND # 0.0 103/ul Normal 0.0-0.3 [facility] Comment on above: Performed By: #### C CHRISTOPHER #### [facility] [address] [place] [address] Dr. Kirk García BAND % 1 % Normal 0-5 [facility] Comment on above: Performed By: #### C CHRISTOPHER #### [facility] [address] [place] [address] Dr. Kirk García BASOM # 0.00 103/ul Normal 0.00-0.10 [facility] Comment on above: Performed By: #### C CHRISTOPHER #### [facility] [address] [place] [address] Dr. Kirk García BASOM % 0.0 % Critically low 0.2-2.0 [facility] Comment on above: Performed By: #### C CHRISTOPHER #### [facility] [address] [place] [address] Dr. Kirk García BLAST # Normal [facility] Comment on above: Performed By: #### C CHRISTOPHER #### [facility] [address] [place] [address] Dr. Kirk García BLAST % Normal [facility] Comment on above: Performed By: #### C CHRISTOPHER #### [facility] [address] [place] [address] Dr. Kirk García CORRECTED WBC Normal 4.0-11.0 [facility] Comment on above: Performed By: #### C CHRISTOPHER #### [facility] [address] [place] [address] Dr. Kirk García EOS # 0.00 103/ul Normal 0.00-0.70 [facility] Comment on above: Performed By: #### C CHRISTOPHER #### [facility] [address] [address] [address] Kirk García EOS% 0.0 % Critically low 0.9-7.0 [facility] Comment on above: Performed By: #### C CHRISTOPHER #### [facility] [address] [address] [address] Kirk García HCT 31.0 % Critically low 42.0-54.0 [facility] Comment on above: Performed By: #### C CHRISTOPHER #### [facility] [address] [address] [address] Kirk García HGB 10.5 g/dl Critically low 14.0-18.0 [facility] Comment on above: Performed By: #### C CHRISTOPHER #### [facility] [address] [address] [address] Kirk García LYMPHM # 0.31 103/ul Critically low 1.20-3.80 [facility] Comment on above: Performed By: #### C CHRISTOPHER #### [facility] [address] [address] [address] Kirk García LYMPHM% 11.0 % Critically low 20.5-60.0 [facility] Comment on above: Performed By: #### Jailene WHITE #### [facility] [address] [address] [address] Kirk García MCH 34.2 pg Critically high 25.9-34.0 [facility] Comment on above: Performed By: #### C CHRISTOPHER #### [facility] [address] [address] [address] Kirk García MCHC 33.9 g/dl Normal 29.9-35.2 [facility] Comment on above: Performed By: #### C CHRISTOPHER #### [facility] [address] [address] [address] Kirk García MCV 101.0 fL Critically high 80.0-94.0 [facility] Comment on above: Performed By: #### C CHRISTOPHER #### [facility] [address] [place] [address] Dr. Kirk García METAMYELOCYTE # 0.1 103/ul Normal [facility] Comment on above: Performed By: #### C CHRISTOPHER #### [facility] [address] [place] [address] Dr. Kirk García METAMYELOCYTE % 2 % Normal [facility] Comment on above: Performed By: #### C CHRISTOPHER #### [facility] [address] [place] [address] Dr. Kirk García MONOM# 0.03 103/ul Critically low 0.30-0.80 [facility] Comment on above: Performed By: #### C CHRISTOPHER #### [facility] [address] [place] [address] Dr. Kirk García MONOM% 1.0 % Critically low 1.7-12.0 [facility] Comment on above: Performed By: #### C CHRISTOPHER #### [facility] [address] [place] [address] Dr. Kirk García MPV 10.7 fL Normal 9.5-13.5 [facility] Comment on above: Performed By: #### C CHRISTOPHER #### [facility] [address] [place] [address] Dr. Kirk García MYELOCYTE # 0.0 103/ul Normal [facility] Comment on above: Performed By: #### C CHRISTOPHER #### [facility] [address] [place] [address] Dr. Kirk García MYELOCYTE % 1 % Normal [facility] Comment on above: Performed By: #### C CHRISTOPHER #### [facility] [address] [place] [address] Dr. Kirk García NRBC Normal [facility] Comment on above: Performed By: #### C CHRISTOPHER #### [facility] [address] [place] [address] Dr. Kirk García PLT 84 103/ul Critically low 150-450 [facility] Comment on above: Performed By: #### C BCMAN #### [facility] [address] [address] [address] iKrk García RBC 3.07 106/ul Critically low 4.70-6.10 [facility] Comment on above: Performed By: #### C BCMAN #### [facility] [address] [address] [address] Kirk García RDW 13.3 % Normal 11.0-15.0 [facility] Comment on above: Performed By: #### C BCMAN #### [facility] [address] [address] [address] Kirk García SEG # 2.35 103/ul Normal 1.40-6.50 [facility] Comment on above: Performed By: #### C TRISHMAN #### [facility] [address] [address] [address] Kirk García SEG % 84.0 % Critically high 43.0-75.0 [facility] Comment on above: Performed By: #### C CHRISTOPHER #### [facility] [address] [address] [address] Kirk García WBC 2.8 103/ul Critically low 4.0-11.0 [facility] Comment on above: Performed By: #### C CHRISTOPHER #### [facility] [address] [address] [address] Kirk García PROF CHEM 8 (BAS METB)on Anion gap [Moles/Vol] 9.9 mmol/L Normal [facility] Comment on above: Performed By: #### U MICRO, ERUR #### [facility] [address] [address] [address] Kirk García Calcium [Mass/Vol] 7.4 mg/dL Critically low 8.5-10.1 [facility] Comment on above: Performed By: #### U MICRO, ERUR #### [facility] [address] [address] [address] Kirk García Chloride [Moles/Vol] 100 mmol/L Normal 98-107 [facility] Comment on above: Performed By: #### U MICRO, ERUR #### [facility] [address] [address] [address] Kirk García CO2 [Moles/Vol] 23.8 mmol/L Normal 21.0-32.0 [facility] Comment on above: Performed By: #### U MICRO, ERUR #### [facility] [address] [place] [address] Dr. Kirk García Creatinine [Mass/Vol] 1.43 mg/dL Critically high 0.70-1.30 [facility] Comment on above: Performed By: #### U MICRO, ERUR #### [facility] [address] [place] [address] Dr. Kirk García EGFR-AF ANDORRAN 57 mL/min/1.73m2 Critically low >=60 [facility] Comment on above: Performed By: #### U MICRO, ERUR #### [facility] [address] [place] [address] Dr. Kirk García EGFR-NON AF ANDORRAN 47 mL/min/1.73m2 Critically low >=60 [facility] Comment on above: Performed By: #### U MICRO, ERUR #### [facility] [address] [place] [address] Dr. Kirk García Glucose [Mass/Vol] 148 mg/dL Critically high 74-106 [facility] Comment on above: Performed By: #### U MICRO, ERUR #### [facility] [address] [place] [address] Dr. Kirk García Potassium [Moles/Vol] 4.7 mmol/L Normal 3.5-5.1 [facility] Comment on above: Performed By: #### U MICRO, ERUR #### [facility] [address] [place] [address] Dr. Kirk García Sodium [Moles/Vol] 129 mmol/L Critically low 136-145 [facility] Comment on above: Performed By: #### U MICRO, ERUR #### [facility] [address] [place] [address] Dr. Kirk García Urea nitrogen [Mass/Vol] 42.0 mg/dL Critically high 7.0-18.0 [facility] Comment on above: Performed By: #### U MICRO, ERUR #### [facility] [address] [place] [address] Dr. Kirk García Urea nitrogen/Creatinine [Mass ratio] 29.4 mg/mg Normal [facility] Comment on above: Performed By: #### U MICRO, ERUR #### [facility] [address] [place] [address] Dr. Kirk García CBC AUTO DIFFon 08-03-2022 BASO # 0.0 103/ul Normal 0.0-0.1 [facility] Comment on above: Performed By: #### C BC #### [facility] [address] [place] [address] Dr. Kirk García Basophils/100 WBC (Bld) 0.0 % Critically low 0.2-2.0 [facility] Comment on above: Performed By: #### C BC #### [facility] [address] [place] [address] Dr. Kirk García EO # 0.0 103/ul Normal 0.0-0.7 [facility] Comment on above: Performed By: #### C BC #### [facility] [address] [place] [address] Dr. Kirk García Eosinophils/100 WBC (Bld) 0.2 % Critically low 0.9-7.0 [facility] Comment on above: Performed By: #### C BC #### [facility] [address] [place] [address] Dr. Kirk García Erythrocyte distribution width (RBC) [Ratio] 13.7 % Normal 11.0-15.0 [facility] Comment on above: Performed By: #### C BC #### [facility] [address] [place] [address] Dr. Kirk García Hematocrit (Bld) [Volume fraction] 34.3 % Critically low 42.0-54.0 [facility] Comment on above: Performed By: #### C BC #### [facility] [address] [address] [address] Kirk García Hemoglobin (Bld) [Mass/Vol] 11.8 g/dL Critically low 14.0-18.0 [facility] Comment on above: Performed By: #### C BC #### [facility] [address] [address] [address] Kirk García IG # 0.02 10e3/ul Normal 0.00-0.03 [facility] Comment on above: Performed By: #### C BC #### [facility] [address] [address] [address] Kirk García IG % 0.4 % Normal 0.0-0.5 [facility] Comment on above: Performed By: #### C BC #### [facility] [address] [place] [address] Dr. Kirk García LYMPH # 0.9 103/ul Critically low 1.2-3.8 [facility] Comment on above: Performed By: #### C BC #### [facility] [address] [place] [address] Dr. Kirk García Lymphocytes/100 WBC (Bld) 16.5 % Critically low 20.5-60.0 [facility] Comment on above: Performed By: #### C BC #### [facility] [address] [place] [address] Dr. Kirk García MANUAL DIFF REQ NO Normal [facility] Comment on above: Performed By: #### C BC #### [facility] [address] [place] [address] Dr. Kirk García MCH (RBC) [Entitic mass] 34.4 pg Critically high 25.9-34.0 [facility] Comment on above: Performed By: #### C BC #### [facility] [address] [place] [address] Dr. Kirk García MCHC (RBC) [Mass/Vol] 34.4 g/dL Normal 29.9-35.2 [facility] Comment on above: Performed By: #### C BC #### [facility] [address] [address] [address] Kirk García MCV (RBC) [Entitic vol] 100.0 fL Critically high 80.0-94.0 [facility] Comment on above: Performed By: #### C BC #### [facility] [address] [address] [address] Kirk García MONO # 1.2 103/ul Critically high 0.3-0.8 [facility] Comment on above: Performed By: #### C BC #### [facility] [address] [address] [address] Kirk García Monocytes/100 WBC (Bld) 22.3 % Critically high 1.7-12.0 [facility] Comment on above: Performed By: #### C BC #### [facility] [address] [address] [address] Kirk García NEUT # 3.4 103/ul Normal 1.4-6.5 [facility] Comment on above: Performed By: #### C BC #### [facility] [address] [address] [address] Kirk García Neutrophils/100 WBC (Bld) 60.6 % Normal 43.0-75.0 [facility] Comment on above: Performed By: #### C BC #### [facility] [address] [address] [address] Kirk García Platelet mean volume (Bld) [Entitic vol] 11.6 fL Normal 9.5-13.5 [facility] Comment on above: Performed By: #### C BC #### [facility] [address] [place] [address] Dr. Kirk García PLT 99 103/ul Critically low 150-450 [facility] Comment on above: Performed By: #### C BC #### [facility] [address] [address] [address] Kirk García RBC 3.43 106/ul Critically low 4.70-6.10 [facility] Comment on above: Performed By: #### C BC #### [facility] [address] [address] [address] Kirk García WBC 5.5 103/ul Normal 4.0-11.0 [facility] Comment on above: Performed By: #### C BC #### [facility] [address] [place] [address] Dr. Kirk García CULTURE BLOODon 08-03-2022 Microscopic examination of blood, culture Culture Observations: NO GROWTH AT 5 DAYS. Normal [facility] Comment on above: Performed By: #### U MICRO, ERUR #### [facility] [address] [place] [address] Dr. Kirk García Microscopic examination of blood, culture Culture Observations: NO GROWTH AT 5 DAYS. Normal [facility] Comment on above: Performed By: #### U MICRO, ERUR #### [facility] [address] [place] [address] Dr. Kirk García Covid-19 PCR (CVDTB)on SARS-CoV-2 (COVID-19) RNA SANAZ+probe Ql (Unsp spec) Detected Critically abnormal NOT DETECTED [facility] Comment on above: Result Comment: This test is not yet approved or cleared by the [place] FDA. When there are no FDA-approved or cleared tests available, and other criteria are met, FDA can make tests available under an emergency access mechanism called an Emergency Use Authorization (EUA). The EUA for this test is supported by the [employer] of Health and Human Service's declaration that [...] used). Performed By: #### C VDTBH #### [facility] [address] [place] [address] Dr. Kirk García GROUP A STREP CULTUREon S. pyogenes Ag Ql (Unsp spec) Culture Observations: NEGATIVE FOR GROUP A STREPTOCOCCUS. Normal [facility] Comment on above: Performed By: #### U MICRO, ERUR #### [facility] [address] [address] [address] Kirk García PROF 14(COMP METB)on 022 Albumin [Mass/Vol] 3.0 g/dL Critically low 3.4-5.0 [facility] Comment on above: Performed By: #### C MP #### [facility] [address] [place] [address] Dr. Kirk García Albumin/Globulin [Mass ratio] 0.7 {ratio} Normal [facility] Comment on above: Performed By: #### C MP #### [facility] [address] [place] [address] Dr. Kirk García ALP [Catalytic activity/Vol] 76 U/L Normal 46-116 [facility] Comment on above: Performed By: #### C MP #### [facility] [address] [place] [address] Dr. Kirk García ALT [Catalytic activity/Vol] 27 U/L Normal 16-63 [facility] Comment on above: Performed By: #### C MP #### [facility] [address] [place] [address] Dr. Kirk García Anion gap [Moles/Vol] 8.9 mmol/L Normal [facility] Comment on above: Performed By: #### C MP #### [facility] [address] [place] [address] Dr. Kirk García AST [Catalytic activity/Vol] 17 U/L Normal 15-37 [facility] Comment on above: Performed By: #### C MP #### [facility] [address] [place] [address] Dr. Kirk García Bilirubin [Mass/Vol] 1.3 mg/dL Critically high 0.2-1.0 [facility] Comment on above: Performed By: #### C MP #### [facility] [address] [place] [address] Dr. Kirk García Calcium [Mass/Vol] 8.1 mg/dL Critically low 8.5-10.1 Th [facility] Comment on above: Performed By: #### C MP #### [facility] [address] [address] [address] Kirk García Chloride [Moles/Vol] 94 mmol/L Critically low 98-107 [facility] Comment on above: Performed By: #### C MP #### [facility] [address] [address] [address] Kirk García CO2 [Moles/Vol] 27.5 mmol/L Normal 21.0-32.0 [facility] Comment on above: Performed By: #### C MP #### [facility] [address] [address] [address] Kirk García Creatinine [Mass/Vol] 1.65 mg/dL Critically high 0.70-1.30 [facility] Comment on above: Performed By: #### C MP #### [facility] [address] [place] [address] Dr. Kirk García EGFR-AF ANDORRAN 48 mL/min/1.73m2 Critically low >=60 [facility] Comment on above: Performed By: #### C MP #### [facility] [address] [place] [address] Dr. Kirk García EGFR-NON AF ANDORRAN 40 mL/min/1.73m2 Critically low >=60 [facility] Comment on above: Performed By: #### C MP #### [facility] [address] [address] [address] Kirk García Globulin (S) [Mass/Vol] 4.5 g/dL Normal [facility] Comment on above: Performed By: #### C MP #### [facility] [address] [address] [address] Kirk García Glucose [Mass/Vol] 118 mg/dL Critically high 74-106 [facility] Comment on above: Performed By: #### C MP #### [facility] [address] [address] [address] Kirk García Potassium [Moles/Vol] 4.4 mmol/L Normal 3.5-5.1 [facility] Comment on above: Performed By: #### C MP #### [facility] [address] [address] [address] Kirk García Protein [Mass/Vol] 7.5 g/dL Normal 6.4-8.2 [facility] Comment on above: Performed By: #### C MP #### [facility] [address] [address] [address] Kirk García Sodium [Moles/Vol] 126 mmol/L Critically low 136-145 Th e [facility] Comment on above: Performed By: #### C MP #### [facility] [address] [address] [address] Kirk García Urea nitrogen [Mass/Vol] 36.0 mg/dL Critically high 7.0-18.0 [facility] Comment on above: Performed By: #### C MP #### [facility] [address] [address] [address] Kirk García Urea nitrogen/Creatinine [Mass ratio] 21.8 mg/mg Normal [facility] Comment on above: Performed By: #### C MP #### [facility] [address] [address] [address] Kirk García STREPT SCREENon 08-03-2022 STREP SCREEN A Negative Normal NEGATIVE [facility] Comment on above: Performed By: #### U MICRO, ERUR #### [facility] [address] [address] [address] Kirk García XR CHEST 1 Von [...] MILAGROS REEDER Date: 2022-08-03 12:55 Normal [facility] CBC AUTO DIFFon 07-08-2022 BASO # 0.0 103/ul Normal 0.0-0.1 [facility] Comment on above: Performed By: #### C BC #### [facility] [address] [place] [address] Dr. Kirk García Basophils/100 WBC (Bld) 0.5 % Normal 0.2-2.0 [facility] Comment on above: Performed By: #### C BC #### [facility] [address] [place] [address] Dr. Kirk García EO # 0.1 103/ul Normal 0.0-0.7 [facility] Comment on above: Performed By: #### C BC #### [facility] [address] [place] [address] Dr. Kirk García Eosinophils/100 WBC (Bld) 1.4 % Normal 0.9-7.0 [facility] Comment on above: Performed By: #### C BC #### [facility] [address] [place] [address] Dr. Kirk García Erythrocyte distribution width (RBC) [Ratio] 13.4 % Normal 11.0-15.0 [facility] Comment on above: Performed By: #### C BC #### [facility] [address] [place] [address] Dr. Kirk García Hematocrit (Bld) [Volume fraction] 39.6 % Critically low 42.0-54.0 [facility] Comment on above: Performed By: #### C BC #### [facility] [address] [place] [address] Dr. Kirk García Hemoglobin (Bld) [Mass/Vol] 13.2 g/dL Critically low 14.0-18.0 [facility] Comment on above: Performed By: #### C BC #### [facility] [address] [place] [address] Dr. Kirk García IG # 0.02 10e3/ul Normal 0.00-0.03 [facility] Comment on above: Performed By: #### C BC #### [facility] [address] [place] [address] Dr. Kirk García IG % 0.3 % Normal 0.0-0.5 [facility] Comment on above: Performed By: #### C BC #### [facility] [address] [place] [address] Dr. Kirk García LYMPH # 1.7 103/ul Normal 1.2-3.8 [facility] Comment on above: Performed By: #### C BC #### [facility] [address] [place] [address] Dr. Kirk García Lymphocytes/100 WBC (Bld) 28.7 % Normal 20.5-60.0 [facility] Comment on above: Performed By: #### C BC #### [facility] [address] [place] [address] Dr. Kirk García MANUAL DIFF REQ NO Normal [facility] Comment on above: Performed By: #### C BC #### [facility] [address] [place] [address] Dr. Kirk García MCH (RBC) [Entitic mass] 34.4 pg Critically high 25.9-34.0 [facility] Comment on above: Performed By: #### C BC #### [facility] [address] [place] [address] Dr. Kirk García MCHC (RBC) [Mass/Vol] 33.3 g/dL Normal 29.9-35.2 [facility] Comment on above: Performed By: #### C BC #### [facility] [address] [place] [address] Dr. Kirk García MCV (RBC) [Entitic vol] 103.1 fL Critically high 80.0-94.0 [facility] Comment on above: Performed By: #### C BC #### [facility] [address] [place] [address] Dr. Kirk García MONO # 0.9 103/ul Critically high 0.3-0.8 [facility] Comment on above: Performed By: #### C BC #### [facility] [address] [place] [address] Dr. Kirk García Monocytes/100 WBC (Bld) 15.8 % Critically high 1.7-12.0 [facility] Comment on above: Performed By: #### C BC #### [facility] [address] [place] [address] Dr. Kirk García NEUT # 3.1 103/ul Normal 1.4-6.5 [facility] Comment on above: Performed By: #### C BC #### [facility] [address] [place] [address] Dr. Kirk García Neutrophils/100 WBC (Bld) 53.3 % Normal 43.0-75.0 [facility] Comment on above: Performed By: #### C BC #### [facility] [address] [place] [address] Dr. Kirk García Platelet mean volume (Bld) [Entitic vol] 10.6 fL Normal 9.5-13.5 [facility] Comment on above: Performed By: #### C BC #### [facility] [address] [place] [address] Dr. Kirk García PLT 147 103/ul Critically low 150-450 [facility] Comment on above: Performed By: #### C BC #### [facility] [address] [place] [address] Dr. Kirk García RBC 3.84 106/ul Critically low 4.70-6.10 [facility] Comment on above: Performed By: #### C BC #### [facility] [address] [place] [address] Dr. Kirk García WBC 5.9 103/ul Normal 4.0-11.0 [facility] Comment on above: Performed By: #### C BC #### [facility] [address] [place] [address] Dr. Kirk García DIGOXINon 07-08-2022 DIG 1.1 ng/mL Normal 0.9-2.0 [facility] Comment on above: Performed By: #### U MICRO, ERUR #### [facility] [address] [place] [address] Dr. Kirk García PROF CHEM 8 (BAS METB)on Anion gap [Moles/Vol] 13.6 mmol/L Normal Th [facility] Comment on above: Performed By: #### U MICRO, ERUR #### [facility] [address] [address] [address] Kirk García Calcium [Mass/Vol] 9.5 mg/dL Normal 8.5-10.1 [facility] Comment on above: Performed By: #### U MICRO, ERUR #### [facility] [address] [address] [address] Kirk García Chloride [Moles/Vol] 97 mmol/L Critically low 98-107 [facility] Comment on above: Performed By: #### U MICRO, ERUR #### [facility] [address] [place] [address] Dr. Kirk García CO2 [Moles/Vol] 28.8 mmol/L Normal 21.0-32.0 [facility] Comment on above: Performed By: #### U MICRO, ERUR #### [facility] [address] [place] [address] Dr. Kirk García Creatinine [Mass/Vol] 1.43 mg/dL Critically high 0.70-1.30 [facility] Comment on above: Performed By: #### U MICRO, ERUR #### [facility] [address] [place] [address] Dr. Kirk García EGFR-AF ANDORRAN 57 mL/min/1.73m2 Critically low >=60 [facility] Comment on above: Performed By: #### U MICRO, ERUR #### [facility] [address] [place] [address] Dr. Kirk García EGFR-NON AF ANDORRAN 47 mL/min/1.73m2 Critically low >=60 [facility] Comment on above: Performed By: #### U MICRO, ERUR #### [facility] [address] [place] [address] Dr. Kirk García Glucose [Mass/Vol] 99 mg/dL Normal 74-106 [facility] Comment on above: Performed By: #### U MICRO, ERUR #### [facility] [address] [address] [address] Kirk García Potassium [Moles/Vol] 4.4 mmol/L Normal 3.5-5.1 [facility] Comment on above: Performed By: #### U MICRO, ERUR #### [facility] [address] [address] [address] Kirk García Sodium [Moles/Vol] 135 mmol/L Critically low 136-145 Th [facility] Comment on above: Performed By: #### U MICRO, ERUR #### [facility] [address] [address] [address] Kirk García Urea nitrogen [Mass/Vol] 29.0 mg/dL Critically high 7.0-18.0 [facility] Comment on above: Performed By: #### U MICRO, ERUR #### [facility] [address] [address] [address] Kirk García Urea nitrogen/Creatinine [Mass ratio] 20.3 mg/mg Normal [facility] Comment on above: Performed By: #### U MICRO, ERUR #### [facility] [address] [address] [address] Kirk García Patient Educationon 03-16-20 Patient [...] Are older than age 65. ? Are -Romanian. ? Are obese. ? Have a family [...] Follow these instructions at home: ? Take yzhb-kuj-wwlvujo and prescription medicines only as told by [...] (more content not included)... Normal [facility] Urology Office/Clinic Noteon 03-16-2022 Urology [...] E&M of Est. Patient Moderate 30-39 Min 86976 Measure Post Void residual urine and/or bladder capacity by US- non-imaging 76533 Urnls Dip Stick Auto w/o Microscopy POC 21738 2. History of prostate cancer (Z85.46: Personal history of malignant neoplasm of prostate) s/p brachytherapy in 2004. PSA remained very low. pt decided to have PCP do annual monitoring when he saw PRW March 2021. Ordered: E&M of Est. Patient Moderate 30-39 Min 99969 Measure Post Void residual urine and/or bladder capacity by US- non-imaging 83146 Urnls Dip Stick Auto w/o Microscopy POC 97223 Orders: oxybutynin, 5 mg = 1 tab(s), Oral, Daily, # 90 tab(s), Refills(s) 3, Pharmacy: [facility], 183, cm, 03/16/22 9:10:00 EDT, Height/Length Dosing, 99.3, kg, 03/16/22 9:10:00 EDT, Weight Dosing Follow-up With When Contact Information KENNETH SHEPARD, MARYBETH Trivedi, URL Within 6 months [address] [facility] [place] [address] Business (1) Additional Instructions: Patient Education Prostate Cancer 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 Cholecystitis Gross hematuria History of prostate cancer Hyperlipidemia Hypertension custodial current use of antithrombotics/anti platelets Post-void dribbling [...] lifetime (more content not included)... Normal [facility] Comment on above: Result Comment: Elec tronically Signed By: MARYBETH STANLEY [email or web address]\Date and Time Signed: 03/16/22 09:55 EDT Patient [...] Are older than age 65. ? Are -Romanian. ? Are obese. ? Have a family [...] Follow these instructions at home: ? Take nowb-mnq-jxhyynu and prescription medicines only as told by [...] cancer specialis (more content not included)... Normal [facility] Urology Office/Clinic Noteon 01-06-2022 Urology Office/Clinic [...] worsen Ordered: Office Visit Level 4 Est 16809 2. History of prostate cancer (Z85.46: Personal history of malignant neoplasm of prostate) s/p brachytherapy in 2004. PSA remained very low. pt decided to have PCP do annual monitoring when he saw PRW at last visit March 2021. Ordered: Office Visit Level 4 Est 79526 Orders: Urnls Dip Stick Auto w/o Microscopy POC 95149 Total time spent reviewing previous notes/results/duplication specialist al documents, preparing the chart, conducting the [...] cancer Hyperlipidemia Hypertension custodial current use of antithrombotics/anti platelets Post-void dribbling [...] (more content not included)... Normal [facility] Comment on above: Result Comment: Elec tronically Signed By: KENNETH SHEPARD, MARYBETH Munson.lisa\Date and Time Signed: 01/06/22 16:55 EST [place] [facility] SAMSON KELLEY ([id number]) 1935 M Date Time Provider Department 07/29/21 DALILA BALL During your visit today, we recorded the following information about you: Dalila Ball RN 07/29/2021 10:36 AM Signed Spoke with Samson, he is currently still at the hotel and is planning on going to the [facility]. 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 [8892] Cmt: post-op Prescriptions as of 07/29/2021 - [...] Encounter Status:Closed by DALILA BALL on 07/29/21 [facility] ANES POSTPROC EVALon 021 ANES POSTPROC EVAL HNO ID: [id number] Author: Ramiro Eqsuivel MD Service: Anesthesiology Author Type: Anesthesiologist Type: [...] July 28, 2021 TIME: 1:35 PM CSN: [id number] [facility] ANES PRE-OPon 07-28-2021 ANES PRE-OP HNO ID: [id number] Author: Ramiro Esquivel MD Service: Anesthesiology Author [...] 100 mL Vial-Bag (UNASYN) 3 g [employer] Internship to [place] - [COMPLETED] acetaminophen 1,000 mg [...] July 28, 2021 TIME: 10:17 AM CSN: [id number] [facility] HISTORY PHYSICALon HISTORY PHYSICAL HNO ID: [id number] Author: Jewel Cary III, MD Service: General [...] DATE: July 28, 2021 TIME: 10:16 AM [facility] OPERATIVE NOon 07-28-2021 OPERATIVE NO HNO ID: [id number] Author: Jewel Cary III, MD Service: General Surgery Author Type: Physician Type: Operative Report Filed: 07/28/2021 11:24 AM Note Text: OPERATIVE REPORT LOG ID: [id number] SURGERY/PROCEDURE DATE: 07/28/2021 INCISION/PROCEDURE START TIME: 10:47 AM INCISION CLOSE/PROCEDURE END TIME: 11:24 AM SURGEON: Jewel Cary III, MD ?? PROPELLANT ASSEMBLER: Monserrat Salazar PA-C? ? OPERATION: Laparoscopic cholecystectomy (04959). ? ANESTHESIA: GETA and 10 mL of [...] July 28, 2021 TIME: 11:22 AM [facility] SURGICAL PATHOLOGYon 021 SURGICAL PATHOLOGY Specimen originated from [facility] Specimen #: [id number] Submitting Physician: JEWEL CARY MD FINAL DIAGNOSIS [...] The mucosa is walker-red, hyperemic, and granular. Automatic Folder Seamer sections are submitted as follows: A1 cystic duct margin and wall, A2 fundus. SLE/ch 07/28/2021 [place] [address] Date of Report: 07/29/2021 Date of Procedure: 07/28/2021 Date of Receipt: 07/28/2021 Submitted by: JEWEL CARY MD Location: [facility] Diagnostic interpretation performed at [facility], [address] [place] [address]. CLIA Number: [id number] Normal [facility] Reference Lab Comment on above: Performed By: #### S #### See report for performing lab information. HISTORY PHYSICALon HISTORY PHYSICAL HNO ID: [id number] Author: Denita Simmons PA-C Service: ? Author Type: Physician Caustic Room Operator Type: HANDP Filed: 07/19/2021 4:18 PM [...] in November 2019. He was admitted to [facility] due to Yuni cystitis. Providers at [...] 20's - PACEMAKER 2006 - PACEMAKER 01/2021 [employer] placed - PAST SURGICAL HISTORY OF [...] fevers. Neuro: No history of TIA's, stroke, RASPBERRY CHECKER tumor, impaired sensorium, hemiplegia, paraplegia or quadraplegia. No neurological symptoms or problems. Respiratory: Negative for Asthma, Dyspnea, Tobacco Use, URI < 2 weeks +PND - can rarely trigger cough, but stable, no acute symptoms Cardiovascular: +Pacemaker (Aquasco scien) - A-fib hx, CHB no symptoms +Heart failure - on digoxin, Lasix. Chronic lower extremity edema. +Valve history - s/p Mitral and tricuspid repair 2016 - Dr. Adrianna Geiger - Ra (more content not included)... Normal [facility] CNCFranky 07-13-2021 CNCO Letter Text Normal [facility] [place] 07-13-2021 FEDERICON Telephone (GENSAV) SAMSON KELLEY ([id number]) 1935 M Date Time Provider Department 07/13/21 [...] by routing message back to Angel ROSARIO WATER AND GAS HELPER, prior to notifying the patient. Marybeth Georgi 07/13/2021 1:53 PM Signed Pt seeing Cardi Dr Adrianna Geiger @ [facility] 216 Will send clearance to this provider Cat Gibbs 07/15/2021 11:03 AM Signed Cari from [place] Dr Geiger's office called and asked to have clearance letter fax to [phone]. Thank you. Marybeth Georgi 07/15/2021 11:21 AM [...] Encounter Status:Closed by MARYBETH LAUREANO on 07/13/21 [facility] [place] 07-12-2021 CNPN Telephone (GENSAV) SAMSON KELLEY ([id number]) 1935 M Date Time Provider Department 07/12/21 JEWEL CARY III GENSAV During your visit today, we recorded the following information about you: Marybeth Laureano 07/13/2021 2:08 PM Addendum Cur received Pt needs cardiac clearance Dr Kody Lynn Tele enct sent Spoke w pt he now sees Dr Adrianna Geiger at [facility]. Letter electronically sent. Marybeth Laureano 07/13/2021 3:25 PM Signed electronic faxed failed printed and sent to verified fax number of [phone]. Confirmed received. Marybeth Laureano 07/19/2021 3:02 PM [...] Encounter Status:Closed by MARYBETH LAUREANO on 07/19/21 [facility] HISTORY PHYSICALon HISTORY PHYSICAL HNO ID: [id number] Author: Jewel Cary III, MD Service: ? [...] for internal providers or letter via the [employer] Postal Service for external providers. HISTORY: He [...] stored in (more content not included)... Normal [facility] OPERATIVE REPORTon OPERATIVE REPORT NAME: SAMSON KELLEY MR#: [id number] SURGEON: Adrianna Geiger MD DATE OF SURGERY: [...] inserted. The new pulse generator is a [place]asco Upside Accolade MRI safe pacemaker, model #L311 serial #[id number]. The pulse generator was attached to the [...] of the day today. ADRIANNA GEIGER MD [facility]/[id number] E/S: Adrianna Geiger MD 02/08/21 0856 Electronically Signed [facility] PT NAME: SAMSON KELLEY MR#: [id number] [address] [place] [address] ACCT: [id number] : [birth year] OPERATIVE REPORT Normal [facility] SURGon 02-01-2021 SURG Normal [facility] Comment on above: Result Comment: RUN DATE: 02/02/21 [facility] LAB *LIVE* PAGE 1RUN TIME: 1351 Specimen InquiryRUN USER: [employer] Name: SAMSON KELLEY : [birth year] Sex:M Attend Dr: Adrianna Geiger [facility]#: [id number] Unit#: [id number] Status: [facility] Location: ANA MARIA SiddiqiS17-01 Received: 02/01/21 Status: PRIYANKA Yesenia#: [id number]#: [id number] Collected: 02/01/21-[address] [facility] Dr: Adrianna GeigerSUES: A. EXPLANTED HARDWARE MICROSCOPIC EXAM: N/A DIAGNOSIS: EXPLANTED HARDWARE, REMOVAL: - PULSE GENERATOR (GROSS DIAGNOSIS ONLY) Signed Signature on File KT SCHAFER 02/02/[address] Name: SAMSON KELLEY [facility] Hosp Num: [id number] A Ministry of Age / Sex: 85/M [facility] Physician: Adrianna Geiger MD [address] [address] Location: SAME DAY SURGERY END OF REPORT Performed By: #### P SURG ####Test performed at: [facility] [address] [address] Vital Signs Date Time Vital Sign Value Performing Clinician Facility 01-16-2024 11:34-0500 Body height 182.88 cm [facility] 01-16-2024 11:34-0500 Body mass index (BMI) [Ratio] 28.5 kg/m2 [facility] 01-16-2024 11:34-0500 Body weight 95.48 kg [facility] 01-16-2024 11:34-0500 Diastolic blood pressure 62 mm[Hg] [facility] 01-16-2024 11:34-0500 Heart rate 82 /min [facility] 01-16-2024 11:34-0500 Respiratory rate 20 /min [facility] 01-16-2024 11:34-0500 Systolic blood pressure 102 mm[Hg] [facility] 12-08-2023 11:30-0500 Body height 182.88 cm [facility] 12-08-2023 11:30-0500 Body weight 94.16 kg [facility] 12-08-2023 11:30-0500 Diastolic blood pressure 74 mm[Hg] [facility] 12-08-2023 11:30-0500 Systolic blood pressure 115 mm[Hg] [facility] 11-22-2023 10:00-0500 Body height 182.88 cm Timo Ball Other [facility] 11-22-2023 10:00-0500 Body mass index (BMI) [Ratio] 28.67 kg/m2 Timo Ball Other [employer] Other 11-22-2023 10:00-0500 Body weight 95.89 kg Timo Ball Other [employer] Other 11-22-2023 10:00-0500 Body weight 95.88 kg [facility] 11-22-2023 10:00-0500 Diastolic blood pressure 64 mm[Hg] Timo Ball Other [facility] 11-22-2023 10:00-0500 Respiratory rate 16 /min Timo Ball Other [facility] [employer] Other 11-22-2023 10:00-0500 SaO2% (BldA) [Mass fraction] 95 % Timo Ball Other [facility] [employer] Other 11-22-2023 10:00-0500 Systolic blood pressure 102 mm[Hg] Timo Ball Other [facility] 10-03-2023 13:45-0500 Body height 182.88 cm Timo Ball Other [place] [employer] Other 10-03-2023 13:45-0500 Body mass index (BMI) [Ratio] 29.02 kg/m2 Timo Ball Other [place] [employer] Other 10-03-2023 13:45-0500 Body weight 97.07 kg Timo Ball Other [employer] Other 10-03-2023 13:45-0500 Diastolic blood pressure 67 mm[Hg] Timo Ball Other [employer] Other 10-03-2023 13:45-0500 Respiratory rate 16 /min Timo Ball Other [employer] Other 10-03-2023 13:45-0500 Systolic blood pressure 106 mm[Hg] Timo Ball Other [employer] Other 09-29-2023 13:45-0400 Body height 182.88 cm Timo Ball Other [employer] Other 08-31-2023 11:00-0400 Body height 182.88 cm Timo Ball Other [employer] Other 08-31-2023 11:00-0400 Body mass index (BMI) [Ratio] 28.23 kg/m2 Timo Ball Other [employer] Other 08-31-2023 11:00-0400 Body weight 94.44 kg Timo Ball Other [employer] Other 08-31-2023 11:00-0400 Diastolic blood pressure 61 mm[Hg] Timo Ball Other [employer] Other 08-31-2023 11:00-0400 Respiratory rate 12 /min Timo Ball Other [employer] Other 08-31-2023 11:00-0400 Systolic blood pressure 105 mm[Hg] Timo Ball Other [employer] Other 05-26-2023 11:00-0400 Body height 182.88 cm Timo Ball Other [employer] Other 05-26-2023 11:00-0400 Body mass index (BMI) [Ratio] 28.69 kg/m2 Timo Ball Other [employer] Other 05-26-2023 11:00-0400 Body weight 95.98 kg Timo Ball Other [employer] Other 05-26-2023 11:00-0400 Diastolic blood pressure 66 mm[Hg] Timo Ball Other [employer] Other 05-26-2023 11:00-0400 Respiratory rate 16 /min Timo Ball Other [employer] Other 05-26-2023 11:00-0400 Systolic blood pressure 116 mm[Hg] Timo Ball Other [employer] Other 01-20-2023 11:00-0500 Body height 182.88 cm Timo Ball Other [employer] Other 01-20-2023 11:00-0500 Body mass index (BMI) [Ratio] 28.53 kg/m2 Timo Ball Other [employer] Other 01-20-2023 11:00-0500 Body weight 95.44 kg Timo Ball Other [employer] Other 01-20-2023 11:00-0500 Diastolic blood pressure 64 mm[Hg] Timo Ball Other [employer] Other 01-20-2023 11:00-0500 Respiratory rate 16 /min Timo Ball Other [employer] Other 01-20-2023 11:00-0500 Systolic blood pressure 102 mm[Hg] Timo Ball Other [employer] Other 09-21-2022 12:18-0400 Blood Pressure Location MARYBETH KENNETH [facility] 09-21-2022 12:18-0400 Diastolic blood pressure 58 mm[Hg] MARYBETH KENNETH [facility] 09-21-2022 12:18-0400 Heart rate 80 /min MARYBETH KENNETH [facility] 09-21-2022 12:18-0400 Respiratory rate 16 /min MARYBETH KENNETH [facility] 09-21-2022 12:18-0400 Systolic blood pressure 111 mm[Hg] MARYBETH STANLEY [facility] 03-16-2022 08:49-0400 Blood Pressure Location MARYBETH STANLEY [facility] 03-16-2022 08:49-0400 Diastolic blood pressure 65 mm[Hg] MARYBETH STANLEY [facility] 03-16-2022 08:49-0400 Heart rate 75 /min MARYBETH STANLEY [facility] 03-16-2022 08:49-0400 Systolic blood pressure 93 mm[Hg] MARYBETH STANLEY [facility] Encounters Encounter Date Encounter Type Care Provider Facility Start: 02-07-2024 End: 02-07-2024 ambulatory Martha Renea Facility:[facility] Start: 01-26-2024 End: 01-26-2024 ambulatory [facility] Start: 01-16-2024 End: 01-16-2024 ambulatory [facility] Work Phone: Start: 01-16-2024 End: 01-16-2024 Patient encounter procedure [facility] Work Phone: Start: 01-12-2024 Non-patient / Non-visit [facility] Work Phone: Start: 01-11-2024 Non-patient / Non-visit [facility] Work Phone: Start: 01-10-2024 Non-patient / Non-visit [facility] Work Phone: Start: 01-09-2024 Non-patient / Non-visit [facility] Work Phone: Start: 01-08-2024 Non-patient / Non-visit [facility] Work Phone: Start: 01-01-2024 End: 01-01-[address] [facility] Start: 12-29-2023 End: 12-29-2023 ambulatory Timo Francis Other [employer] Other Start: 12-29-2023 Telephone encounter Timo Francis [facility] Start: 12-26-2023 End: 12-26-2023 ambulatory EDDIE WEISS Not Available Start: 12-20-2023 End: 12-20-2023 ambulatory Timo Francis Other [employer] Other Start: 12-20-2023 Telephone encounter Timo Francis [facility] Start: 12-15-2023 End: 12-15-2023 ambulatory Timo Francis Other [employer] Other Start: 12-15-2023 Telephone encounter Timo Francis [facility] Start: 12-11-2023 End: 12-11-2023 ambulatory Timo Francis Other [employer] Other Start: 12-11-2023 Telephone encounter Timo Francis JOHN[facility]ON [facility] Start: 12-08-2023 End: 12-08-2023 Patient encounter procedure [facility] Work Phone: Start: 12-05-2023 End: 12-05-2023 ambulatory Timo Francis Other [employer] Other Start: 12-05-2023 Telephone encounter Timo Francis FP [facility] Start: 11-22-2023 End: 11-22-2023 ambulatory Timo Francis Other [employer] Other Start: 11-22-2023 Telephone encounter Timo Francis [facility] Start: 11-22-2023 Transitional care carlie villasenor srvc 14 day discharge Timo Francis [facility] Start: 11-22-2023 End: 11-22-2023 Patient encounter procedure [facility] Work Phone: Start: 11-17-2023 End: 11-17-2023 ambulatory Timo Francis Other [employer] Other Start: 11-17-2023 Telephone encounter Timo DIEGO [facility] Start: 10-04-2023 End: 10-04-2023 ambulatory Timo Francis Other [employer] Other Start: 10-04-2023 Telephone encounter Timo DIEGO [facility] Start: 10-03-2023 End: 10-03-2023 ambulatory Timo Francis Other [employer] Other Start: 10-03-2023 Office outpatient vi sit 15 minutes Timo Francis [facility] Start: 09-29-2023 End: 09-29-2023 ambulatory Timo Francis Other [employer] Other Start: 09-29-2023 Nursing evaluation o f patient and report Timo Francis [facility] Start: 09-06-2023 End: 09-06-2023 ambulatory Timo Francis Other [employer] Other Start: 09-06-2023 Telephone encounter Timo Francis [facility] Start: 08-31-2023 End: 08-31-2023 ambulatory Timo Francis Other [employer] Other Start: 08-31-2023 Patient encounter procedure Tmio Francis [facility] Start: 05-26-2023 End: 05-26-2023 ambulatory Timo Francis Other [employer] Other Start: 05-26-2023 Office outpatient vi sit 25 minutes Timo Francis [facility] Start: 05-02-2023 End: 05-02-2023 ambulatory [facility] Start: 04-17-2023 End: 04-17-2023 ambulatory JUAN LUIS [facility] Start: 01-20-2023 End: 01-20-2023 ambulatory Timo Francis Other [facility] [employer] Other Start: 01-20-2023 Office outpatient vi sit 25 minutes Timo Francis [facility] Start: 09-21-2022 End: 09-22-2022 ambulatory MARYBETH STANLEY Facility:[facility] Start: 09-21-2022 End: 09-21-2022 Patient encounter procedure [facility]ARYBETH STANLEY [facility] Start: 09-06-2022 End: 09-07-[address] TIMO FRANCIS Facility:[facility] Start: 08-14-2022 End: 08-15-[address] TIMO FRANCIS Facility:[facility] Start: 08-03-2022 End: 08-04-[address] TIMO FRANCIS Facility:[facility] Start: 07-08-2022 End: 07-09-[address] TIMO FRANCIS Facility:[facility] Start: 03-16-2022 End: 03-17-2022 ambulatory MARYBETH STANLEY Facility:[facility] Start: 03-16-2022 End: 03-16-2022 Patient encounter procedure MARYBETH STANLEY [facility] Start: 01-06-2022 End: 01-07-2022 ambulatory MARYBETH STANLEY Facility:[facility] Start: 01-05-2022 ambulatory MARYBETH STANLEY Facility :[facility] Start: 12-07-2018 Patient encounter procedure Facility:[id number] Start: 12-06-2018 Patient encounter procedure Facility:[id number] Procedures Date Procedure Procedure Detail Performing Clinician Start: 01-08-2024 Blood Culture 1 Start: 01-08-2024 Blood Culture 2 Start: 07-08-[address] KUSH FRANCIS Comment on above: Performed By: #### U MICRO, ERUR #### [facility] [address] [place] [address] Dr. Kirk García Start: 07-28-2021 Cholecystectomy SHADIA STANLEY Start: 11-27-2006 Colonoscopy MARYBETH Angel GRAVES Start: 11-27-2004 Implantation of radi oactive seed into prostate MARYBETH STANLEY Repair of right ingu inal hernia MARYBETH KENNETH Transrectal biopsy o f prostate using ultrasound guidance MARYBETH STANLEY Immunizations Immunization Date Immunization Notes Care Provider [facility] 09-29-2023 influenza, high dose seasonal, preservative-free Timo Francis Other [employer] Other 09-29-2023 influenza virus vaccine, unspecified formulation [facility] 09-07-2022 influenza virus vaccine, split virus (incl. purified surface antigen) Timo Francis Other [employer] Other 09-07-2022 influenza virus vaccine, unspecified formulation [facility] 04-26-2022 SARS-CoV-2 mRNA (awaiiasoxat-bnuj-jmjvq se) vaccine MARYBETH STANLEY [facility] 09-02-2021 SARS-CoV-2 (COVID-19 ) mRNA BNT-162b2 vax MARYBETH STANLEY [facility] 08-18-2021 influenza virus vaccine, unspecified formulation MARYBETH STANLEY [facility] 08-13-2021 influenza virus vaccine, split virus (incl. purified surface antigen) Timo Francis Other [employer] Other 08-13-2021 influenza virus vaccine, unspecified formulation [facility] 02-23-2021 SARS-CoV-2 (COVID-19 ) mRNA BNT-162b2 vax MARYBETH STANLEY [facility] 02-03-2021 SARS-CoV-2 (COVID-19 ) mRNA BNT-162b2 vax MARYBETH STANLEY [facility] Comment on above: Result Comment: 2021: [id number] 01-25-2021 SARS-CoV-2 (COVID-19 ) mRNA BNT-162b2 vax MARYBETH STANLEY [facility] 08-31-2020 influenza virus vaccine, split virus (incl. purified surface antigen) Timo Francis Other [facility] Other 08-31-2020 influenza virus vaccine, unspecified formulation [facility] 08-30-2019 influenza virus vaccine, split virus (incl. purified surface antigen) Timo Francis Other [facility] Other 08-30-2019 influenza virus vaccine, unspecified formulation MARYBETH KENNETH [facility] 08-29-2018 influenza virus vaccine, split virus (incl. purified surface antigen) Timo Francis Other [facility] Other 08-29-2018 influenza virus vaccine, unspecified formulation MARYBETHVANI STANLEY [facility] 08-03-2017 influenza virus vaccine, split virus (incl. purified surface antigen) Timo Francis Other [facility] Other 08-03-2017 influenza virus vaccine, unspecified formulation MARYBETH STANLEY [facility] 09-05-2016 influenza virus vaccine, split virus (incl. purified surface antigen) Timo Francis Other [facility] Other 09-05-2016 influenza virus vaccine, unspecified formulation MARYBETH STANLEY [facility] 10-16-2015 pneumococcal conjuga te vaccine, 13 valent Timo Francis Other [facility] 09-01-2015 influenza virus vaccine, split virus (incl. purified surface antigen) Timo Francis Other [facility] Other 09-01-2015 influenza virus vaccine, unspecified formulation [facility] 09-15-2014 tetanus and diphther ia toxoids, adsorbed, preservative free, for adult use (5 Lf of tetanus toxoid and 2 Lf of diphtheria toxoid) Timo Francis Other [facility] 08-27-2013 tetanus and diphther ia toxoids, adsorbed, preservative free, for adult use (5 Lf of tetanus toxoid and 2 Lf of diphtheria toxoid) Timo Francis Other [facility] 01-10-2007 pneumococcal polysaccharide vaccine, 23 valent Timo Francis Other [facility] 1999 pneumococcal polysaccharide vaccine, 23 valent MARYBETH STANLEY [facility] Payers Date Payer Category Payer Self-pay 2024 Unknown [id number] 2.16.8 [id number] 2023 Unknown [id number] 1960 Medicare [id number] 1960 Unknown [id number] 1935 Unknown [id number] 2.16. [id number] 1934 Unknown [id number] 2.16. [id number] 1934 Unknown [id number] 2.16.8 40.1.286780.3.579.2.727 1934 Unknown [id number] 2.16.8 [id number] 1934 Unknown [id number] 2.16.8 40.1.865012.3.579.2.727 1934 Unknown [id number] 2.16.8 40.1.560793.3.579.2.727 1934 Unknown [id number] 2.16.8 40.1.312170.3.579.2.727 1934 Unknown [id number] 2.16.84 0.1.331621.3.579.2.593 1934 Unknown [id number] 2.16.84 0.1.704215.3.579.2.593 1934 Unknown [id number] 2.16.84 0.1.074700.3.579.2.593 1934 Unknown [id number] 2.16.84 0.1.582232.3.579.2.593 1934 Unknown [id number] 2.16.84 0.1.718080.3.579.2.1259 Medicare [id number] Unknown [facility] Health Claims [id number] Unknown [id number] (STD) [id number] Unknown [id number] 2.16.8 [id number] Social History Date Type Detail Facility Start: 03-16-2022 End: 01-16-2024 Tobacco smoking status Never smoked tobacco (finding) [facility] Tobacco smoking status Never [facility] Sex Assigned At Male [facility] Start: 1935 Sex Assigned At Male F [facility] Functional Status Date Assessment Result Facility 09-21-2022 Functional Status N/A [facility] Clinical Notes 07-28-2021 to 01-26-2024 Note Date & Type Note Facility 01-26-2024 Note CAMERON clip 2017 No anticoagulation with CAMERON clip Continue toprol and digoxin- rate is controlled in office [facility] 01-26-2024 Note Will monitor with ro utine echocardiograms. [facility] 01-26-2024 Note Continue diuresis wi th lasix bid for next 2-3 days and then resume daily dose. [facility] 01-26-2024 Note Hypertension is stab le Well controlled 100/60 Continue all meds [facility] 01-26-2024 Note [facility] III Continue GDMT- ASA, digoxin, lisinopril, toprol with midodrine. Diuretic therapy- lasix 40 mg daily with bid as needed for fluid overload. Asked pt to continue lasix bid for next 2-3 days Sent pt to lab for BMP Monitor daily weights, I&O, fluid restriction 1.5-2L/day, renal function and electrolytes- please maintain K+>4 and Mg > 2 [facility] 01-26-2024 Note UTP CARDIOLOGY PROGR ESS NOTE [facility] HPI: Samson Kelley is a 88 y.o. male here for hospital F/U at [facility] HPI 88 y.o. 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 He was started on midodrine and [...] VALVE: Normal trile (more content not included)... [facility] 01-26-2024 Note Patient here for fol low up [facility]. He was started on midodrine and thyroid medication. .Review of Systems Eyes: Positive for vision loss in left eye and vision loss in right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
[2024-02-16 11:57] LABS: Anion Gap 14.4; BUN Creatinine Ratio 24.2; Calcium 9.6 mg/dL (8.5-10.1); Carbon Dioxide 31.1 mmol/L (21.0-32.0); Chloride 100 mmol/L (98-107); Estimated GFR (African America 49 (>=60); Estimated GFR (Non-African Ame 41 (>=60); Glucose 124 mg/dL (74-106); Potassium 4.5 mmol/L (3.5-5.1); Sodium 141 mmol/L (136-145)
== END 2024-02-16 10:36 | disposition home or self-care (01) ==
LOC: LAB 10:35
PROVIDERS: PCP Internal Medicine; Visit Provider Internal Medicine
DX: I50.9 Heart failure, unspecified (principal)
CPT/HCPCS: 36415; 80048

== ENCOUNTER 2024-02-21 11:06 | Outpatient (REF) | payer MEDICARE, OTHER, SELFPAY ==
--- OUTSIDE RECORDS SUMMARY | 2024-02-21 11:23 | XMS_ITS | CCD ---
Author Organization [facility] Care Team Providers Care Field Supervisor [employer] Name Role Phone TIMO FRANCIS Primary Care [...] Unavailable PENNY, DR MARRUFO Primary Care Unavailable BALL, DR MARRUFO Consulting Unavailable PENNY, DR MARRUFO [...] WEISS Attending Unavailable NAOMI GRIFFIN II Referring UnavailRENÉ Morton Attending Unavailable SAMSON MYLES Referring Unavailable MARGARITA HERNANDEZ Attending Unavailable JUAN LUIS CALVIN Attending Unavailable SAMSON MYLES Referring Unavailable Martha Meier Attending Unavailable Martha Meier Admitting Unavailable Timo Francis Primary Care Unavailable Medications [...] Start: 11-22-2023 take 1 capsule by mo [facility] once daily Metoprolol Succinate 50 MG 1 [...] Daily, # 90 tab(s), Refills(s) 3, Pharmacy: [facility]72, 183, cm, 09/21/22 12:19:00 EDT, Height/Length [...] 08-10-2022 Episodic Other aftercare (6 sources) Other extermination supervisor (current) drug therapy; Translations: [OTH DONOR SERVICES TEAM LEADER CURRENT DRUG THERAPY] Onset: 07-08-2022 Episodic Other aftercare (1 source) intermission coordinator (current) use of aspirin; Translations: [DONOR SERVICES TEAM LEADER CURRENT USE OF ASPIRIN] Onset: 08-16-2022 Episodic [...] CT guided bone marrow bx/aspir [facility] [place] [address] CT Scan Report Signed Patient: Samson Kelley MR#: [id number] : 1935 Acct:[id number] Age/Sex: 88 / M ADM Date: 02/07/24 Loc: CT Room: Type: [facility] Attending Dr: Martha Meier MD Copies [...] Zach Ontiveros M.D.02/07/2024 2:21 PM Dictation Location: [place] [address] Transcribed By: [facility] 02/07/24 1421 Dictated By: Zach Ontiveros II, MD 02/07/24 1418 Signed By: 02/07/24 1421 Normal [facility] Coagulation Profileon 2023 aPTT Coag (Bld) [Time] 41.4 s High 25.1-36.5 [facility] Comment on above: Result Comment: A he matocrit value greater than 55% may lead to inaccurate results in coagulation testing. Patients having hematocrit values >55% require a special collection tube for coagulation studies. Please contact the laboratory at [phone] for redraw instructions. PERFORMED BY: [address] [address] PATHOLOGIST BOX TOE STITCHER DILIA SUAZO M.D. Performed By: #### C , PP #### [address] INR Coag (PPP) [Relative time] 1.2 {INR} Normal [facility] Comment on above: Result Comment: INR Therapeutic [...] Performed By: #### C BC, PP #### [address] PT Coag (PPP) [Time] 13.2 s High 9.0-12.9 [place] Comment on above: Result Comment: A he matocrit value greater than 55% may lead to inaccurate results in coagulation testing. Patients having hematocrit values >55% require a special collection tube for coagulation studies. Please contact the laboratory at [phone] for redraw instructions. Performed By: #### C BC, PP #### [address] Complete Blood Count Auto Di ffon 02-07-2024 Basophils (Bld) [#/Vol] 0.0 10*3/uL Normal 0.0-0.2 [facility] Comment on above: Result Comment: PERF ORMED BY: [place] [address] PATHOLOGIST BOX TOE STITCHER DILIA SUAZO M.D. Performed By: #### C BC, PP #### [address] Basophils/100 WBC (Bld) 0.9 % Normal . [facility] Comment on above: Performed By: #### C BC, PP #### [address] Eosinophils (Bld) [#/Vol] 0.1 10*3/uL Normal 0.0-0.45 [facility] Comment on above: Performed By: #### C BC, PP #### [address] Eosinophils/100 WBC (Bld) 1.8 % Normal . [facility] Comment on above: Performed By: #### C BC, PP #### [address] Erythrocyte distribution width (RBC) [Ratio] 16.5 % High 12.0-14.8 [facility] Comment on above: Performed By: #### C BC, PP #### [facility] [address] Hematocrit (Bld) [Volume fraction] 31.0 % Low 38.8-50.0 [facility] Comment on above: Performed By: #### C BC, PP #### [facility] [address] Hemoglobin (Bld) [Mass/Vol] 10.3 g/dL Low 13.0-17.0 [facility] Comment on above: Performed By: #### C BC, PP #### [facility] [address] Lymphocytes (Bld) [#/Vol] 0.6 10*3/uL Low 1.00-4.8 [facility] Comment on above: Performed By: #### C BC, PP #### [address] Lymphocytes/100 WBC (Bld) 13.7 % Normal . [facility] Comment on above: Performed By: #### C BC, PP #### [address] MCH (RBC) [Entitic mass] 34.5 pg Normal 27.5-35.2 [facility] Comment on above: Performed By: #### C BC, PP #### [address] MCV (RBC) [Entitic vol] 103.8 fL High 83.5-101 [facility] Comment on above: Performed By: #### C BC, PP #### [address] Mean Corpuscular HGB Conc 33.2 g/dL Normal 32.5-35.6 [facility] Comment on above: Performed By: #### C BC, PP #### [address] Monocytes (Bld) [#/Vol] 0.6 10*3/uL Normal 0.0-0.8 [facility] Comment on above: Performed By: #### C BC, PP #### [facility] [address] [place] [address] [place] Monocytes/100 WBC (Bld) 14.1 % Normal . [facility] Comment on above: Performed By: #### C BC, PP #### [facility] [address] Neutrophils (Bld) [#/Vol] 3.1 10*3/uL Normal 1.8-7.7 [facility] Comment on above: Performed By: #### C BC, PP #### [facility] [address] Neutrophils/100 WBC (Bld) 69.5 % Normal . [facility] Comment on above: Performed By: #### C BC, PP #### [facility] [address] NRBC% 0.3 /100{WBC} Normal 0-0.5 [facility] Comment on above: Performed By: #### C BC, PP #### [facility] [address] Platelet mean volume (Bld) [Entitic vol] 9.2 fL Normal 6.6-10.1 [facility] Comment on above: Performed By: #### C BC, PP #### [facility] [address] [place] [id number] [place] Platelets (Bld) [#/Vol] 84 10*3/uL Low 150-450 [facility] Comment on above: Performed By: #### C BC, PP #### [facility] [address] [place] [id number] [place] RBC (Bld) [#/Vol] 2.99 10*6/uL Low 3.90-5.[address] [facility] Comment on above: Performed By: #### C BC, PP #### [facility] [address] [place] [address] [place] WBC (Bld) [#/Vol] 4.4 10*3/uL Normal 4.1-10.5 [facility] Comment on above: Performed By: #### C BC, PP #### [facility] [address] 02-07-2024 L Specimen: Received: 02/07/24 Status: PRIYANKA Saravia Num: [id number] Spec Type: Bone Marro Subm Dr: Zach Ontiveros II, MD Tissues: A Bone Marrow Aspirate (Clot) (LT ILIAC CREST) B Bone Marrow Biopsy/Core (LT ILIAC CREST) Procedures: Peripheral Smr, Iron/3, HE/4, Gross/Micro L4/2, Bm Smear/2, CD138, CD20, CD3, Decalcification, Bone Marrow TP, GIEMSA STN/6 Age/ Patient Sex Location Account Attending Physician Samson Kelley 88/M CT [id number] Martha Meier MD SPEC NUM: RECD: 02/07/24 STATUS: PRIYANKA SARAVIA NUM: [id number] AURA: 02/07/[address]: Zach Ontiveros II, MD ENTERED: 02/07/[address] [facility] [address]: SPEC TYPE: Bone Marro DEPT: BM ORDERED: Peripheral Smr, Iron/3, HE/4, Gross/Micro L4/2, Bm Smear/2, CD138, CD20, CD3, Decalcification, Bone Marrow TP, GIEMSA STN/6 ORDERED: Peripheral Smr, Iron/3, HE/4, Gross/Micro L4/2, Bm Smear/2, CD138, CD20, CD3, USS/14, Decalcification, Bone Marrow TP, GIEMSA STN/6 Supplemental Report Addendum 2 Entered: 02/16/24 This Case Was Sent To [facility] For additional testing. Results are as follows:? 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 Please Refer To The attached [facility] Report For Diagnostic Details Addendum Signed (signature on file) Naz Spence MD 02/16/241215 Addendum 1 Entered: 02/15/24-172 FISH testing results are negative. Please refer to the FISH report for details. Specimen: [id number] Received: 02/07/24-1153 Status: PRIYANKA Saravia Num: [id number] Spec Type: Bone Marro Subm Dr: Zach Ontiveros II, MD Tissues: A Bone Marrow Aspirate (Clot) (LT ILIAC CREST) B Bone Marrow Biopsy/Core (LT ILIAC CREST) Procedures: Peripheral Smr, Iron/3, HE/4, Gross/Micro L4/2, Bm Smear/2, CD138, CD20, CD3, Decalcification, Bone Marrow TP, GIEMSA STN/6 Patient: Samson Kelley [id number] (Continued) Specimen: [id number] Received: 02/07/24 (Continued) Supplemental Report (Continued) Signed (signature on file) Lalita Lipscomb MD 02/09/24 1529 Specimen: [id number] Received: 02/07/24 Status: PRIYANKA Saravia Num: [id number] Spec Type: Bone Marro Subm Dr: Zach Ontiveros, MD LINDA Tissues: A Bone Marrow Aspirate (Clot) (LT ILIAC CREST) B Bone Marrow Biopsy/Core (LT ILIAC CREST) Procedures: Peripheral Smr, Iron/3, HE/4, Gross/Micro L4/2, Bm Smear/2, CD138, CD20, CD3, Decalcification, Bone Marrow TP, GIEMSA STN/6 Patient: Samson Kelley [id number] (Continued) Specimen: [id number] Received: 02/07/24 (Continued) Supplemental Report (Continued) Addendum Signed (signature on file) Naz Spence MD 02/15/24 1726 Pathological Diagnosis Bone marrow, core biopsy, clot [...] marrow biopsy is done for further evaluation. The bone marrow does not show features to suggest myelodysplastic syndrome morphologically. Dysplasia is not appreciated. Rarely, subtle features of dysplasia can be missed morphologially, Correlation with the pending FISH study for MDS and cytogenetics study is recommended. The marrow is mildly hypercellular due to (more content not included)... Normal [facility] 36on 02-01-2024 36 Regarding BMP from 01/26/2024: JUAN FRANCISCO Doll, CARLIE Spencer, So Samson needs to see [...] see Dr. Orosco on 02/12/2024 at 10:15am. [facility] Orders Onlyon 01-31-2024 Orders Only [id number] Samson Kelley 1935 M Date Provider Department Center 01/31/[address] No family history on file [facility] 37on 01-26-2024 37 May take lasix [...] taller/more pillows than normal or in recliner. [facility] Office Visiton 01-26-2024 Follow-up visit [id number] Samson Kelley 1935 M Date Provider Department Center 01/26/2024 RENÉ FRANKLIN WINNIE [facility] No family history on file Level of Service:96487 AR OFFICE/OUTPATIENT ESTABLISHED MOD MDM 30 MIN [facility] Basophils Auto (Bld) [#/Vol] on 01-12-2024 Basophils (Bld) [#/Vol] 0.0 10 3/uL 0.0-0.1 [facility] Basophils/100 WBC Auto (Bld) on 01-12-2024 Basophils/100 WBC (Bld) 0.2 % 0.2-2.0 [facility] Eosinophils/100 WBC Auto (Bl d)on 01-12-2024 Eosinophils/100 WBC (Bld) 1.2 % 0.9-7.0 [facility] Erythrocyte distribution wid th Auto (RBC) [Ratio]on 01-12-2024 Erythrocyte distribution width (RBC) [Ratio] 15.9 % 11.0-15.0 [facility] Estimated glomerular filtrat ion rate (GFR) non- Americanon 01-12-2024 GFR/1.73 sq M.predicted among non-blacks MDRD (S/P/Bld) [Vol rate/Area] 44 mL/min/{1.73_m2} >=60 [facility] Globulin Calc (S) [Mass/Vol] on 01-12-2024 Globulin (S) [Mass/Vol] 4.3 g/dL [facility] Hematocrit Auto (Bld) [Volum e fraction]on 01-12-2024 Hematocrit (Bld) [Volume fraction] 30.0 % 42.0-54.0 [facility] Hemoglobin [Mass/volume] in Bloodon 01-12-2024 Hemoglobin (Bld) [Mass/Vol] 9.5 g/dL 14.0-18.0 [facility] Laboratory - Chemistry and C hemistry - challengeon 01-12-2024 Albumin [Mass/Vol] 2.9 g/dL 3.4-5.0 [facility] ALP [Catalytic activity/Vol] 93 U/L 46-116 [facility] ALT [Catalytic activity/Vol] 17 U/L 16-63 [facility] AST [Catalytic activity/Vol] 11 U/L 15-37 [facility] Bilirubin [Mass/Vol] 1.9 mg/dL 0.2-1.0 [place] Calcium [Mass/Vol] 9.0 mg/dL 8.5-10.1 [facility] Chloride [Moles/Vol] 106 mmol/L 98-107 [place] CO2 [Moles/Vol] 28.1 mmol/L 21.0-32.0 [facility] Creatinine [Mass/Vol] 1.49 mg/dL 0.70-1.30 [facility] GFR/1.73 sq M.predicted MDRD (S/P/Bld) [Vol rate/Area] 54 mL/min/{1.73_m2} >=60 [facility] Glucose [Mass/Vol] 94 mg/dL 74-106 [facility] Natriuretic peptide B (Bld) [Mass/Vol] 4324.0 pg/mL <=1800.0 [facility] Comment on above: RESULTS CALLED TO SANJUANITA CORNELL RN @BY Radha Corea at 0645 Potassium [Moles/Vol] 4.2 mmol/L 3.5-5.1 [facility] Protein [Mass/Vol] 7.2 g/dL 6.4-8.2 [facility] Sodium [Moles/Vol] 141 mmol/L 136-145 [facility] Urea nitrogen [Mass/Vol] 52.0 mg/dL 7.0-18.0 [facility] Urea nitrogen/Creatinine [Mass ratio] 34.9 mg/mg [facility] Laboratory - Hematology and Cell countson 01-12-2024 Immature granulocytes/100 WBC (Bld) 0.2 % 0.0-0.5 [facility] Leukocytes [#/volume] correc ayan for nucleated erythrocytes in Blood by Automated counon 01-12-2024 WBC corrected for nucl RBC Auto (Bld) [#/Vol] 4.3 10 3/uL 4.0-11.0 [facility] Lymphocytes Auto (Bld) [#/Vo l]on 01-12-2024 Lymphocytes (Bld) [#/Vol] 0.9 10 3/uL 1.2-3.8 [facility] Lymphocytes/100 WBC Auto (Bl d)on 01-12-2024 Lymphocytes/100 WBC (Bld) 19.9 % 20.5-60.0 [facility] MCH Auto (RBC) [Entitic mass ]on 01-12-2024 MCH (RBC) [Entitic mass] 34.5 pg 25.9-34.0 [facility] MCHC Auto (RBC) [Mass/Vol]on 01-12-2024 MCHC (RBC) [Mass/Vol] 31.7 g/dL 29.9-35.2 [facility] MCV Auto (RBC) [Entitic vol] on 01-12-2024 MCV (RBC) [Entitic vol] 109.1 fL 80.0-94.0 [facility] Monocytes Auto (Bld) [#/Vol] on 01-12-2024 Monocytes (Bld) [#/Vol] 0.7 10 3/uL 0.3-0.8 [facility] Monocytes/100 WBC Auto (Bld) on 01-12-2024 Monocytes/100 WBC (Bld) 16.9 % 1.7-12.0 [facility] Neutrophils Auto (Bld) [#/Vo l]on 01-12-2024 Neutrophils (Bld) [#/Vol] 2.7 10 3/uL 1.4-6.5 [facility] Neutrophils/100 WBC Auto (Bl d)on 01-12-2024 Neutrophils/100 WBC (Bld) 61.6 % 43.0-75.0 [facility] No Panel Informationon 01-12 Digoxin Level 1.4 ng/mL 0.9-2.0 [facility] Eosinophils # (Auto) 0.1 10 3/uL 0.0-0.7 [facility] Immature Granulocyte # (Auto) 0.01 10 3/uL 0.00-0.03 [facility] Platelet mean volume Auto (B ld) [Entitic vol]on 01-12-2024 Platelet mean volume (Bld) [Entitic vol] 11.5 fL 9.5-13.5 [facility] Platelets Auto (Bld) [#/Vol] on 01-12-2024 Platelets (Bld) [#/Vol] 69 10 3/uL 150-450 [facility] RBC Auto (Bld) [#/Vol]on RBC (Bld) [#/Vol] 2.75 10 6/uL 4.70-6.[address] [facility] Serum or plasma albumin/glob ulin mass ratioon 01-12-2024 Albumin/Globulin [Mass ratio] 0.7 {ratio} [facility] Serum or plasma anion gap de terminationon 01-12-2024 Anion gap [Moles/Vol] 11.1 [facility] Basophils Auto (Bld) [#/Vol] on 01-11-2024 Basophils (Bld) [#/Vol] 0.0 10 3/uL 0.0-0.1 [facility] Basophils/100 WBC Auto (Bld) on 01-11-2024 Basophils/100 WBC (Bld) 0.4 % 0.2-2.0 [facility] Eosinophils/100 WBC Auto (Bl d)on 01-11-2024 Eosinophils/100 WBC (Bld) 0.8 % 0.9-7.0 [facility] Erythrocyte distribution wid th Auto (RBC) [Ratio]on 01-11-2024 Erythrocyte distribution width (RBC) [Ratio] 16.2 % 11.0-15.0 [facility] Estimated glomerular filtrat ion rate (GFR) non- Americanon 01-11-2024 GFR/1.73 sq M.predicted among non-blacks MDRD (S/P/Bld) [Vol rate/Area] 40 mL/min/{1.73_m2} >=60 [facility] Globulin Calc (S) [Mass/Vol] on 01-11-2024 Globulin (S) [Mass/Vol] 4.7 g/dL [facility] Hematocrit Auto (Bld) [Volum e fraction]on 01-11-2024 Hematocrit (Bld) [Volume fraction] 32.4 % 42.0-54.0 [facility] Hemoglobin [Mass/volume] in Bloodon 01-11-2024 Hemoglobin (Bld) [Mass/Vol] 10.0 g/dL 14.0-18.0 [facility] Laboratory - Chemistry and C hemistry - challengeon 01-11-2024 Albumin [Mass/Vol] 3.0 g/dL 3.4-5.0 [facility] ALP [Catalytic activity/Vol] 95 U/L 46-116 [facility] ALT [Catalytic activity/Vol] 20 U/L 16-63 [facility] AST [Catalytic activity/Vol] 13 U/L 15-37 [facility] Bilirubin [Mass/Vol] 1.9 mg/dL 0.2-1.0 [place] Calcium [Mass/Vol] 9.0 mg/dL 8.5-10.1 [facility] Chloride [Moles/Vol] 103 mmol/L 98-107 [place] CO2 [Moles/Vol] 27.5 mmol/L 21.0-32.0 [facility] Creatinine [Mass/Vol] 1.64 mg/dL 0.70-1.30 [facility] GFR/1.73 sq M.predicted MDRD (S/P/Bld) [Vol rate/Area] 48 mL/min/{1.73_m2} >=60 [facility] Glucose [Mass/Vol] 90 mg/dL 74-106 [facility] Natriuretic peptide B (Bld) [Mass/Vol] 3351.0 pg/mL <=1800.0 [facility] Comment on above: RESULTS CALLED TO PATY PATTON RN @BY Radha Corea at 0640 Potassium [Moles/Vol] 4.2 mmol/L 3.5-5.1 [facility] Protein [Mass/Vol] 7.7 g/dL 6.4-8.2 [facility] Sodium [Moles/Vol] 141 mmol/L 136-145 [facility] Urea nitrogen [Mass/Vol] 54.0 mg/dL 7.0-18.0 [facility] Urea nitrogen/Creatinine [Mass ratio] 32.9 mg/mg [facility] Laboratory - Hematology and Cell countson 01-11-2024 Immature granulocytes/100 WBC (Bld) 0.2 % 0.0-0.5 [facility] Leukocytes [#/volume] correc ayan for nucleated erythrocytes in Blood by Automated counon 01-11-2024 WBC corrected for nucl RBC Auto (Bld) [#/Vol] 4.8 10 3/uL 4.0-11.0 [facility] Lymphocytes Auto (Bld) [#/Vo l]on 01-11-2024 Lymphocytes (Bld) [#/Vol] 0.9 10 3/uL 1.2-3.8 [facility] Lymphocytes/100 WBC Auto (Bl d)on 01-11-2024 Lymphocytes/100 WBC (Bld) 18.6 % 20.5-60.0 [facility] MCH Auto (RBC) [Entitic mass ]on 01-11-2024 MCH (RBC) [Entitic mass] 34.0 pg 25.9-34.0 [facility] MCHC Auto (RBC) [Mass/Vol]on 01-11-2024 MCHC (RBC) [Mass/Vol] 30.9 g/dL 29.9-35.2 [facility] MCV Auto (RBC) [Entitic vol] on 01-11-2024 MCV (RBC) [Entitic vol] 110.2 fL 80.0-94.0 [facility] Monocytes Auto (Bld) [#/Vol] on 01-11-2024 Monocytes (Bld) [#/Vol] 0.7 10 3/uL 0.3-0.8 [facility] Monocytes/100 WBC Auto (Bld) on 01-11-2024 Monocytes/100 WBC (Bld) 14.9 % 1.7-12.0 [facility] Neutrophils Auto (Bld) [#/Vo l]on 01-11-2024 Neutrophils (Bld) [#/Vol] 3.1 10 3/uL 1.4-6.5 [facility] Neutrophils/100 WBC Auto (Bl d)on 01-11-2024 Neutrophils/100 WBC (Bld) 65.1 % 43.0-75.0 [facility] No Panel Informationon 01-11 Digoxin Level 1.5 ng/mL 0.9-2.0 [facility] Eosinophils # (Auto) 0.0 10 3/uL 0.0-0.7 [facility] Immature Granulocyte # (Auto) 0.01 10 3/uL 0.00-0.03 [facility] Platelet mean volume Auto (B ld) [Entitic vol]on 01-11-2024 Platelet mean volume (Bld) [Entitic vol] 11.2 fL 9.5-13.5 [facility] Platelets Auto (Bld) [#/Vol] on 01-11-2024 Platelets (Bld) [#/Vol] 71 10 3/uL 150-450 [facility] RBC Auto (Bld) [#/Vol]on RBC (Bld) [#/Vol] 2.94 10 6/uL 4.70-6.[address] [facility] Serum or plasma albumin/glob ulin mass ratioon 01-11-2024 Albumin/Globulin [Mass ratio] 0.6 {ratio} [facility] Serum or plasma anion gap de terminationon 01-11-2024 Anion gap [Moles/Vol] 14.7 mmol[facility] Basophils Auto (Bld) [#/Vol] on 01-10-2024 Basophils (Bld) [#/Vol] 0.0 10 3/uL 0.0-0.1 [facility] Basophils/100 WBC Auto (Bld) on 01-10-2024 Basophils/100 WBC (Bld) 0.3 % 0.2-2.0 [facility] Eosinophils/100 WBC Auto (Bl d)on 01-10-2024 Eosinophils/100 WBC (Bld) 1.3 % 0.9-7.0 [facility] Erythrocyte distribution wid th Auto (RBC) [Ratio]on 01-10-2024 Erythrocyte distribution width (RBC) [Ratio] 16.1 % 11.0-15.0 [facility] Estimated glomerular filtrat ion rate (GFR) non- Americanon 01-10-2024 GFR/1.73 sq M.predicted among non-blacks MDRD (S/P/Bld) [Vol rate/Area] 39 mL/min/{1.73_m2} >=60 [facility] Globulin Calc (S) [Mass/Vol] on 01-10-2024 Globulin (S) [Mass/Vol] 4.0 g/dL [facility] Hematocrit Auto (Bld) [Volum e fraction]on 01-10-2024 Hematocrit (Bld) [Volume fraction] 30.6 % 42.0-54.0 [facility] Hemoglobin [Mass/volume] in Bloodon 01-10-2024 Hemoglobin (Bld) [Mass/Vol] 9.6 g/dL 14.0-18.0 [facility] Laboratory - Chemistry and C hemistry - challengeon 01-10-2024 Albumin [Mass/Vol] 2.8 g/dL 3.4-5.0 [facility] ALP [Catalytic activity/Vol] 90 U/L 46-116 [facility] ALT [Catalytic activity/Vol] 20 U/L 16-63 [facility] AST [Catalytic activity/Vol] 12 U/L 15-37 [facility] Bilirubin [Mass/Vol] 1.6 mg/dL 0.2-1.0 [place] Calcium [Mass/Vol] 8.9 mg/dL 8.5-10.1 [facility] Chloride [Moles/Vol] 105 mmol/L 98-107 [place] CO2 [Moles/Vol] 27.1 mmol/L 21.0-32.0 [facility] Creatinine [Mass/Vol] 1.65 mg/dL 0.70-1.30 [facility] GFR/1.73 sq M.predicted MDRD (S/P/Bld) [Vol rate/Area] 48 mL/min/{1.73_m2} >=60 [facility] Glucose [Mass/Vol] 91 mg/dL 74-106 [facility] Natriuretic peptide B (Bld) [Mass/Vol] 2269.0 pg/mL <=1800.0 [facility] Comment on above: RESULTS CALLED TO [Aristeo PERALTA/DORIAN]@BY Adeline Sam 0696 Potassium [Moles/Vol] 4.9 mmol/L 3.5-5.1 [facility] Protein [Mass/Vol] 6.8 g/dL 6.4-8.2 [facility] Sodium [Moles/Vol] 140 mmol/L 136-145 [facility] T4 [Mass/Vol] 5.20 ug/dL 4.50-12.10 [facility] Urea nitrogen [Mass/Vol] 63.0 mg/dL 7.0-18.0 [facility] Urea nitrogen/Creatinine [Mass ratio] 38.2 mg/mg [facility] Laboratory - Hematology and Cell countson 01-10-2024 Immature granulocytes/100 WBC (Bld) 0.3 % 0.0-0.5 [facility] Leukocytes [#/volume] correc ayan for nucleated erythrocytes in Blood by Automated counon 01-10-2024 WBC corrected for nucl RBC Auto (Bld) [#/Vol] 3.9 10 3/uL 4.0-11.0 [facility] Lymphocytes Auto (Bld) [#/Vo l]on 01-10-2024 Lymphocytes (Bld) [#/Vol] 0.9 10 3/uL 1.2-3.8 [facility] [facility] Lymphocytes/100 WBC Auto (Bl d)on 01-10-2024 Lymphocytes/100 WBC (Bld) 21.8 % 20.5-60.0 [facility] MCH Auto (RBC) [Entitic mass ]on 01-10-2024 MCH (RBC) [Entitic mass] 34.7 pg 25.9-34.0 [facility] MCHC Auto (RBC) [Mass/Vol]on 01-10-2024 MCHC (RBC) [Mass/Vol] 31.4 g/dL 29.9-35.2 [facility] MCV Auto (RBC) [Entitic vol] on 01-10-2024 MCV (RBC) [Entitic vol] 110.5 fL 80.0-94.0 [facility] Monocytes Auto (Bld) [#/Vol] on 01-10-2024 Monocytes (Bld) [#/Vol] 0.6 10 3/uL 0.3-0.8 [facility] Monocytes/100 WBC Auto (Bld) on 01-10-2024 Monocytes/100 WBC (Bld) 15.4 % 1.7-12.0 [facility] Neutrophils Auto (Bld) [#/Vo l]on 01-10-2024 Neutrophils (Bld) [#/Vol] 2.4 10 3/uL 1.4-6.5 [facility] Neutrophils/100 WBC Auto (Bl d)on 01-10-2024 Neutrophils/100 WBC (Bld) 60.9 % 43.0-75.0 [facility] No Panel Informationon 01-10 Digoxin Level 1.6 ng/mL 0.9-2.0 [facility] Eosinophils # (Auto) 0.1 10 3/uL 0.0-0.7 [facility] Free Triiodothyronine 1.89 pg/mL 2.18-3.98 [facility] Immature Granulocyte # (Auto) 0.01 10 3/uL 0.00-0.03 [facility] Platelet mean volume Auto (B ld) [Entitic vol]on 01-10-2024 Platelet mean volume (Bld) [Entitic vol] 11.8 fL 9.5-13.5 [facility] Platelets Auto (Bld) [#/Vol] on 01-10-2024 Platelets (Bld) [#/Vol] 66 10 3/uL 150-450 [facility] RBC Auto (Bld) [#/Vol]on RBC (Bld) [#/Vol] 2.77 10 6/uL 4.70-6.[address] [facility] Serum or plasma albumin/glob ulin mass ratioon 01-10-2024 Albumin/Globulin [Mass ratio] 0.7 {ratio} [facility] Serum or plasma anion gap de terminationon 01-10-2024 Anion gap [Moles/Vol] 12.8 mmol/L [facility] Basophils Auto (Bld) [#/Vol] on 01-09-2024 Basophils (Bld) [#/Vol] 0.0 10 3/uL 0.0-0.1 [facility] Basophils/100 WBC Auto (Bld) on 01-09-2024 Basophils/100 WBC (Bld) 0.3 % 0.2-2.0 [facility] Eosinophils/100 WBC Auto (Bl d)on 01-09-2024 Eosinophils/100 WBC (Bld) 1.5 % 0.9-7.0 [facility] Erythrocyte distribution wid th Auto (RBC) [Ratio]on 01-09-2024 Erythrocyte distribution width (RBC) [Ratio] 16.1 % 11.0-15.0 [facility] Estimated glomerular filtrat ion rate (GFR) non- Americanon 01-09-2024 GFR/1.73 sq M.predicted among non-blacks MDRD (S/P/Bld) [Vol rate/Area] 39 mL/min/{1.73_m2} >=60 [facility] Globulin Calc (S) [Mass/Vol] on 01-09-2024 Globulin (S) [Mass/Vol] 3.9 g/dL [facility] Hematocrit Auto (Bld) [Volum e fraction]on 01-09-2024 Hematocrit (Bld) [Volume fraction] 28.9 % 42.0-54.0 [facility] Hemoglobin [Mass/volume] in Bloodon 01-09-2024 Hemoglobin (Bld) [Mass/Vol] 9.0 g/dL 14.0-18.0 [facility] Laboratory - Chemistry and C hemistry - challengeon 01-09-2024 Albumin [Mass/Vol] 2.8 g/dL 3.4-5.0 [facility] ALP [Catalytic activity/Vol] 82 U/L 46-116 [facility] ALT [Catalytic activity/Vol] 20 U/L 16-63 [facility] AST [Catalytic activity/Vol] 12 U/L 15-37 [facility] Bilirubin [Mass/Vol] 1.3 mg/dL 0.2-1.0 [place] Calcium [Mass/Vol] 8.7 mg/dL 8.5-10.1 [facility] Chloride [Moles/Vol] 104 mmol/L 98-107 [place] CO2 [Moles/Vol] 28.1 mmol/L 21.0-32.0 [facility] Creatinine [Mass/Vol] 1.66 mg/dL 0.70-1.30 [facility] GFR/1.73 sq M.predicted MDRD (S/P/Bld) [Vol rate/Area] 48 mL/min/{1.73_m2} >=60 [facility] Glucose [Mass/Vol] 76 mg/dL 74-106 [facility] Natriuretic peptide B (Bld) [Mass/Vol] 2379.0 pg/mL <=1800.0 [facility] Comment on above: RESULTS CALLED TO SANJUANITA [email or web address] Adeline [email or web address]. [email or web address] [email or web address] Potassium [Moles/Vol] 4.7 mmol/L 3.5-5.1 [facility] Protein [Mass/Vol] 6.7 g/dL 6.4-8.2 [facility] Sodium [Moles/Vol] 139 mmol/L 136-145 [facility] Urea nitrogen [Mass/Vol] 69.0 mg/dL 7.0-18.0 [facility] Urea nitrogen/Creatinine [Mass ratio] 41.6 mg/mg [facility] Laboratory - Hematology and Cell countson 01-09-2024 Immature granulocytes/100 WBC (Bld) 0.3 % 0.0-0.5 [facility] Leukocytes [#/volume] correc ayan for nucleated erythrocytes in Blood by Automated counon 01-09-2024 WBC corrected for nucl RBC Auto (Bld) [#/Vol] 3.3 10 3/uL 4.0-11.0 [facility] Lymphocytes Auto (Bld) [#/Vo l]on 01-09-2024 Lymphocytes (Bld) [#/Vol] 0.7 10 3/uL 1.2-3.8 [facility] Lymphocytes/100 WBC Auto (Bl d)on 01-09-2024 Lymphocytes/100 WBC (Bld) 21.6 % 20.5-60.0 [facility] MCH Auto (RBC) [Entitic mass ]on 01-09-2024 MCH (RBC) [Entitic mass] 34.1 pg 25.9-34.0 [facility] MCHC Auto (RBC) [Mass/Vol]on 01-09-2024 MCHC (RBC) [Mass/Vol] 31.1 g/dL 29.9-35.2 [facility] MCV Auto (RBC) [Entitic vol] on 01-09-2024 MCV (RBC) [Entitic vol] 109.5 fL 80.0-94.0 [facility] Monocytes Auto (Bld) [#/Vol] on 01-09-2024 Monocytes (Bld) [#/Vol] 0.6 10 3/uL 0.3-0.8 [facility] Monocytes/100 WBC Auto (Bld) on 01-09-2024 Monocytes/100 WBC (Bld) 18.3 % 1.7-12.0 [facility] Neutrophils Auto (Bld) [#/Vo l]on 01-09-2024 Neutrophils (Bld) [#/Vol] 1.9 10 3/uL 1.4-6.5 [facility] Neutrophils/100 WBC Auto (Bl d)on 01-09-2024 Neutrophils/100 WBC (Bld) 58.0 % 43.0-75.0 [facility] No Panel Informationon 01-09 Eosinophils # (Auto) 0.1 10 3/uL 0.0-0.7 [facility] Immature Granulocyte # (Auto) 0.01 10 3/uL 0.00-0.03 [facility] Platelet mean volume Auto (B ld) [Entitic vol]on 01-09-2024 Platelet mean volume (Bld) [Entitic vol] 12.0 fL 9.5-13.5 [facility] Platelets Auto (Bld) [#/Vol] on 01-09-2024 Platelets (Bld) [#/Vol] 76 10 3/uL 150-450 [facility] RBC Auto (Bld) [#/Vol]on RBC (Bld) [#/Vol] 2.64 10 6/uL 4.70-6.[address] [facility] Serum or plasma albumin/glob ulin mass ratioon 01-09-2024 Albumin/Globulin [Mass ratio] 0.7 {ratio} [facility] Serum or plasma anion gap de terminationon 01-09-2024 Anion gap [Moles/Vol] 11.6 mmol/L [facility] Laboratory - Chemistry and C hemistry - challengeon 01-08-2024 Free T4 [Mass/Vol] 0.97 ng/dL 0.76-1.46 [facility] TSH Qn 17.442 m[IU]/L 0.358-3.740 [facility] Laboratory - Microbiology an d Antimicrobial susceptibilityon 01-08-2024 S. agalactiae Org specific cx Ql (Vag fld) Not detected NOT DETECTE [facility] No Panel Informationon 01-08 Troponin I High Sensitivity 40.0 pg/mL 4.0-76.1 [facility] Comment on above: CUT-OFF POINTS HAVE BEEN [...] kaycee cmplx PCR Not detected NOT DETECTE [facility] Bacteroides fragilis (PCR) Not detected NOT DETECTE [facility] Blood Culture Source Blood [place] Brittany albicans (PCR) Not detected NOT DETECTE [facility] Brittany auris (PCR) Not detected NOT DETECTE [facility] Brittany glabrata (PCR) Not detected NOT DETECTE [facility] Brittany krusei (PCR) Not detected NOT DETECTE [facility] Brittany parapsilosis (PCR) Not detected NOT DETECTE [facility] Brittany tropicalis (PCR) Not detected NOT DETECTE [facility] Crypto neoformans/gattii (PCR)(LAB) Not detected NOT DETECTE [facility] CTX-M ESBL (PCR) NOT APPLICABLE NOT DETECTE [facility] Enterobacter cloacae complex (PCR) Not detected NOT DETECTE [facility] Enterobacterales (PCR) Not detected NOT DETECTE [facility] Enterococcus faecalis PCR Not detected NOT DETECTE [facility] Enterococcus faecium PCR Not detected NOT DETECTE [facility] Escherichia coli Result Not detected NOT DETECTE [facility] Haemophilus influenzae DNA Not detected NOT DETECTE [facility] IMP (blaIMP) Carbap Res Gene (PCR) NOT APPLICABLE NOT DETECTE [facility] Klebsiella aerogenes (PCR) Not detected NOT DETECTE [facility] Klebsiella oxytoca (PCR) Not detected NOT DETECTE [facility] Klebsiella pneumoniae group (PCR) Not detected NOT DETECTE [facility] KPC (blaKPC) Detection (PCR) NOT APPLICABLE NOT DETECTE [facility] Listeria monocytogenes (PCR) Not detected NOT DETECTE [facility] MCR-1 Resistance Gene NOT APPLICABLE NOT DETECT E [facility] mecA/C & MREJ Antimicrob Resist Gen NOT APPLICABLE NOT DETECTE [facility] mecA/C-Methicillin Resistance Gene NOT APPLICABLE NOT DETECTE [facility] NDM (blaNDM) Detection (PCR) NOT APPLICABLE NOT DETECTE [facility] Neisseria meningitidis (PCR) Not detected NOT DETECTE [facility] Proteus species (PCR) Not detected NOT DETECTE [facility] Pseudomonas aeruginosa (PCR) Not detected NOT DETECTE [facility] Salmonella spp. (PCR) Not detected NOT DETECTE [facility] Serratia marcescens (PCR) Not detected NOT DETECTE [facility] Staphylococcus aureus (PCR)(LAB) Not detected NOT DETECTE [facility] Staphylococcus epidermidis (PCR) Not detected NOT DETECTE [facility] Staphylococcus lugdunensis (TEM-PCR Not detected NOT DETECTE [facility] Staphylococcus species (PCR) Not detected NOT DETECTE [facility] Stenotroph. maltophilia (PCR) Not detected NOT DETECTE [facility] Streptococcus pneumoniae (PCR) Not detected NOT DETECTE [facility] Streptococcus pyogenes (PCR)(LAB) Not detected NOT DETECTE [facility] Streptococcus species (PCR) Not detected NOT DETECTE [facility] Syn OXA-48-like Carb Res Gene (PCR) NOT APPLICABLE NOT DETECTE [facility] Deion/B-Vancomycin Resistance Genes NOT APPLICABLE NOT DETECTE [facility] VIM (blaVIM) Carbap Res Gene (PCR) NOT APPLICABLE NOT DETECTE [facility] No Panel InformationOrdered By: Timo Francis on 01-08-2024 Blood Culture 2 [facility] Blood Culture 1 [facility] Office Visiton 01-01-2024 Follow-up visit [id number] Samson Kelley 1935 M Date Provider Department Center 01/01/2024 Clint-MARGARITA HERNANDEZ No family history on file Level of Service:57322 [place] OFFICE/OUTPATIENT ESTABLISHED MOD MDM 30 MIN Normal [facility] Office Visiton 04-17-2023 Follow-up visit [id number] Samson Kelley 1935 M Date Provider Department Center 04/17/2023 JUAN LUIS RETANA CARD Jacki Hos No family history on file Level of Service:51330 [place] OFFICE/OUTPATIENT NEW MODERATE MDM 45-59 MINUTES Reason for Visit and Comments: Establish Care [42] Normal [facility] Ambulatory Visit Summaryon 1 Ambulatory Visit Summary SAMSON KELLEY :1935 Visit Date:09/21/2022 Ambulatory Visit Instructions Your Diagnosis Urge incontinence History of prostate cancer Tests Performed Urnls Dip Stick Auto w/o Microscopy POC 01134 Your Care Team Attending Physician - MARYBETH [...] if needed Where: [address] [place] [address] [phone] Medications What How Much When Instructions Unchanged oxybutynin (oxybutynin 5 mg ER Tab) 1 Tablets By Mouth Every day Pickup at [facility] Unchanged ascorbic acid (Vitamin C) Every [...] physician if questions or concerns Pharmacy Information [facility]: [address] [place], [place] [id number] [phone] Test Results Urnls Dip Stick Auto w/o Microscopy POC 71686 (09/21/2022) Bilirubin Urine Dipstick - Negative Blood Urine Dipstick - Negative Glucose Urine Dipstick - Negative Ketones Urine Dipstick - Negative Leukocytes Urine Dipstick - Negative Nitrite Urine Dipstick - Negative Protein Urine Dipstick - Negative Specific [place] Urine Dipstick - 1.015 Urine Appearance Urine [...] cancer Hyperlipidemia Hypertension halfway current use of antithrombotics/anti platelets Post-void dribbling [...] Are older than age 65. ? Are -Venezuelan. ? Are obese. ? Have a family [...] during urination (more content not included)... Normal [facility] Ambulatory Visit Summary SAMSON KELLEY :1935 Visit Date:09/21/2022 Ambulatory Visit Instructions Your Diagnosis Urge incontinence History of prostate cancer Tests Performed Urnls Dip Stick Auto w/o Microscopy POC 03975 Your Care Team Attending Physician - MARYBETH [...] Only if needed Where: [address] [place] [address] [phone] Medications What How Much When Instructions Unchanged [...] Urnls Dip Stick Auto w/o Microscopy POC 30258 (09/21/2022) Bilirubin Urine Dipstick - Negative Blood Urine Dipstick - Negative Glucose Urine Dipstick - Negative Ketones Urine Dipstick - Negative Leukocytes Urine Dipstick - Negative Nitrite Urine Dipstick - Negative Protein Urine Dipstick - Negative Specific [place] Urine Dipstick - 1.015 Urine Appearance Urine [...] cancer Hyperlipidemia Hypertension halfway current use of antithrombotics/anti platelets Post-void dribbling [...] Are older than age 65. ? Are -[place]enezuelan. ? Are obese. ? Have a family [...] upper thi (more content not included)... Normal [facility] Patient Educationon 09-21-20 Patient Education Oncology [...] Are older than age 65. ? Are -[place]enezuelan. ? Are obese. ? Have a family [...] Follow these instructions at home: ? Take [id number] and prescription medicines only as told by [...] cancer specialis (more content not included)... Normal [facility] Urology Office/Clinic Noteon 09-21-2022 Urology Office/Clinic [...] SHEPARD, MARYBETH Trivedi, URL Only if needed [address] [place] [address] [phone] Additional Instructions: Patient Education Prostate Cancer IRebecca [...] cancer Hyperlipidemia Hypertension halfway current use of antithrombotics/anti platelets Post-void dribbling [...] 09/05/2016 Rec (more content not included)... Normal [facility] Comment on above: Result Comment: Elec tronically Signed By: KENNETH SHEPARD, MARYBETH Trivedi\.br\Date and Time Signed: 09/21/22 13:18 EDT CBC AUTO DIFFon 09-06-2022 BASO # 0.0 103/ul Normal 0.0-0.1 [facility] Comment on above: Performed By: #### C BC #### [facility] [address] [place] [address] Dr. Kirk García Basophils/100 WBC (Bld) 0.5 % Normal 0.2-2.0 [facility] Comment on above: Performed By: #### C BC #### [facility] [address] [place] [address] Dr. Kirk García EO # 0.1 103/ul Normal 0.0-0.7 [facility] Comment on above: Performed By: #### C BC #### [facility] [address] [place] [address] Dr. Kirk Gacría Eosinophils/100 WBC (Bld) 1.2 % Normal 0.9-7.0 [facility] Comment on above: Performed By: #### C BC #### [facility] [address] [place] [address] Dr. Kirk García Erythrocyte distribution width (RBC) [Ratio] 14.2 % Normal 11.0-15.0 [facility] Comment on above: Performed By: #### C BC #### [facility] [address] [place] [address] Dr. Kirk García Hematocrit (Bld) [Volume fraction] 35.6 % Critically low 42.0-54.0 [facility] Comment on above: Performed By: #### C BC #### [facility] [address] [place] [address] Dr. Kirk García Hemoglobin (Bld) [Mass/Vol] 11.7 g/dL Critically low 14.0-18.0 [facility] Comment on above: Performed By: #### C BC #### [facility] [address] [place] [address] Dr. Kirk García IG # 0.04 10e3/ul Critically high 0.00-0.03 [facility] Comment on above: Performed By: #### C BC #### [facility] [address] [place] [address] Dr. Kirk García IG % 0.6 % Critically high 0.0-0.5 [facility] Comment on above: Performed By: #### C BC #### [facility] [address] [place] [address] Dr. Kikr García LYMPH # 1.7 103/ul Normal 1.2-3.8 [facility] Comment on above: Performed By: #### C BC #### [facility] [address] [place] [address] Dr. Kirk García Lymphocytes/100 WBC (Bld) 25.7 % Normal 20.5-60.0 [facility] Comment on above: Performed By: #### C BC #### [facility] [address] [place] [address] Dr. Kirk García MANUAL DIFF REQ NO Normal [facility] Comment on above: Performed By: #### C BC #### [facility] [address] [place] [address] Dr. Kirk García MCH (RBC) [Entitic mass] 34.1 pg Critically high 25.9-34.0 [facility] Comment on above: Performed By: #### C BC #### [facility] [address] [place] [address] Dr. Kirk García MCHC (RBC) [Mass/Vol] 32.9 g/dL Normal 29.9-35.2 [facility] Comment on above: Performed By: #### C BC #### [facility] [address] [place] [address] Dr. Kirk García MCV (RBC) [Entitic vol] 103.8 fL Critically high 80.0-94.0 [facility] Comment on above: Performed By: #### C BC #### [facility] [address] [place] [address] Dr. Kirk García MONO # 1.1 103/ul Critically high 0.3-0.8 [facility] Comment on above: Performed By: #### C BC #### [facility] [address] [place] [address] Dr. Kirk García Monocytes/100 WBC (Bld) 17.7 % Critically high 1.7-12.0 [facility] Comment on above: Performed By: #### C BC #### [facility] [address] [place] [address] Dr. Kirk García NEUT # 3.5 103/ul Normal 1.4-6.5 [facility] Comment on above: Performed By: #### C BC #### [facility] [address] [address] [address] Kirk García Neutrophils/100 WBC (Bld) 54.3 % Normal 43.0-75.0 [facility] Comment on above: Performed By: #### C BC #### [facility] [address] [address] [address] Kirk García Platelet mean volume (Bld) [Entitic vol] 10.1 fL Normal 9.5-13.5 [facility] Comment on above: Performed By: #### C BC #### [facility] [address] [place] [address] Dr. Kirk García PLT 153 103/ul Normal 150-450 [facility] Comment on above: Performed By: #### C BC #### [facility] [address] [place] [address] Dr. Kirk García RBC 3.43 106/ul Critically low 4.70-6.10 [facility] Comment on above: Performed By: #### C BC #### [facility] [address] [address] [address] Kirk García WBC 6.5 103/ul Normal 4.0-11.0 [facility] Comment on above: Performed By: #### C BC #### [facility] [address] [place] [address] Dr. Kirk García PROF CHEM 8 (BAS METB)on Anion gap [Moles/Vol] 10.8 mmol/L Normal [facility] Comment on above: Performed By: #### B MP #### [facility] [address] [place] [address] Dr. Kirk García Calcium [Mass/Vol] 9.2 mg/dL Normal 8.5-10.1 [facility] Comment on above: Performed By: #### B MP #### [facility] [address] [address] [address] Kirk García Chloride [Moles/Vol] 101 mmol/L Normal 98-107 [facility] Comment on above: Performed By: #### B MP #### [facility] [address] [address] [address] Kirk García CO2 [Moles/Vol] 30.9 mmol/L Normal 21.0-32.0 [facility] Comment on above: Performed By: #### B MP #### [facility] [address] [address] [address] Kirk García Creatinine [Mass/Vol] 1.54 mg/dL Critically high 0.70-1.30 [facility] Comment on above: Performed By: #### B MP #### [facility] [address] [address] [address] Kirk García EGFR-AF FRENCH 52 mL/min/1.73m2 Critically low >=60 [facility] Comment on above: Performed By: #### B MP #### [facility] [address] [address] [address] Kirk García EGFR-NON AF FRENCH 43 mL/min/1.73m2 Critically low >=60 [facility] Comment on above: Performed By: #### B MP #### [facility] [address] [address] [address] Kirk García Glucose [Mass/Vol] 106 mg/dL Normal 74-106 [facility] Comment on above: Performed By: #### B MP #### [facility] [address] [address] [address] Kirk García Potassium [Moles/Vol] 4.7 mmol/L Normal 3.5-5.1 [facility] Comment on above: Performed By: #### B MP #### [facility] [address] [address] [address] Kirk García Sodium [Moles/Vol] 138 mmol/L Normal 136-145 [facility] Comment on above: Performed By: #### B MP #### [facility] [address] [address] [address] Kirk García Urea nitrogen [Mass/Vol] 28.0 mg/dL Critically high 7.0-18.0 [facility] Comment on above: Performed By: #### B MP #### [facility] [address] [address] [address] Kirk García Urea nitrogen/Creatinine [Mass ratio] 18.2 mg/mg Normal [facility] Comment on above: Performed By: #### B MP #### [facility] [address] [place] [address] Dr. Kirk García CBC W MANUAL DIFFon 08-15-20 22 ATYPICAL LYMPH # 1.62 103/ul Normal [facility] Comment on above: Performed By: #### U MICRO, ERUR #### [facility] [address] [address] [address] Kirk García ATYPICAL LYMPH % 12 % Normal [facility] Comment on above: Performed By: #### U MICRO, ERUR #### [facility] [address] [place] [address] Dr. Kirk García BAND # 0.1 103/ul Normal 0.0-0.3 [facility] Comment on above: Performed By: #### U MICRO, ERUR #### [facility] [address] [place] [address] Dr. Kirk García BAND % 1 % Normal 0-5 [facility] Comment on above: Performed By: #### U MICRO, ERUR #### [facility] [address] [place] [address] Dr. Kirk García BASOM # 0.14 103/ul Critically high 0.00-0.10 [facility] Comment on above: Performed By: #### U MICRO, ERUR #### [facility] [address] [place] [address] Dr. Kirk García BASOM % 1.0 % Normal 0.2-2.0 [facility] Comment on above: Performed By: #### U MICRO, ERUR #### [facility] [address] [place] [address] Dr. Kirk García BLAST # Normal [facility] Comment on above: Performed By: #### U MICRO, ERUR #### [facility] [address] [place] [address] Dr. Kirk García BLAST % Normal [facility] Comment on above: Performed By: #### U MICRO, ERUR #### [facility] [address] [address] [address] Kirk García CORRECTED WBC Normal 4.0-11.0 [facility] Comment on above: Performed By: #### U MICRO, ERUR #### [facility] [address] [address] [address] Kirk García EOS # 0.14 103/ul Normal 0.00-0.70 [facility] Comment on above: Performed By: #### U MICRO, ERUR #### [facility] [address] [address] [address] Kirk García EOS% 1.0 % Normal 0.9-7.0 [facility] Comment on above: Performed By: #### U MICRO, ERUR #### [facility] [address] [address] [address] Kirk García HCT 40.7 % Critically low 42.0-54.0 [facility] Comment on above: Performed By: #### U MICRO, ERUR #### [facility] [address] [address] [address] Kirk García HGB 13.4 g/dl Critically low 14.0-18.0 [facility] Comment on above: Performed By: #### U MICRO, ERUR #### [facility] [address] [address] [address] Kirk García LYMPHM # 0.54 103/ul Critically low 1.20-3.80 [facility] Comment on above: Performed By: #### U MICRO, ERUR #### [facility] [address] [address] [address] Kirk García LYMPHM% 4.0 % Critically low 20.5-60.0 [facility] Comment on above: Performed By: #### U MICRO, ERUR #### [facility] [address] [address] [address] Kirk García MCH 34.2 pg Critically high 25.9-34.0 [facility] Comment on above: Performed By: #### U MICRO, ERUR #### [facility] [address] [address] [address] Kirk García MCHC 32.9 g/dl Normal 29.9-35.2 [facility] Comment on above: Performed By: #### U MICRO, ERUR #### [facility] [address] [address] [address] Kirk García MCV 103.8 fL Critically high 80.0-94.0 [facility] Comment on above: Performed By: #### U MICRO, ERUR #### [facility] [address] [address] [address] Kirk García METAMYELOCYTE # Normal [facility] Comment on above: Performed By: #### U MICRO, ERUR #### [facility] [address] [place] [address] Dr. Kirk García METAMYELOCYTE % Normal [facility] Comment on above: Performed By: #### U MICRO, ERUR #### [facility] [address] [address] [address] Kirk García MONOM# 1.08 103/ul Critically high 0.30-0.80 [facility] Comment on above: Performed By: #### U MICRO, ERUR #### [facility] [address] [place] [address] Dr. Kirk García MONOM% 8.0 % Normal 1.7-12.0 [facility] Comment on above: Performed By: #### U MICRO, ERUR #### [facility] [address] [address] [address] Kirk García MPV 10.7 fL Normal 9.5-13.5 [facility] Comment on above: Performed By: #### U MICRO, ERUR #### [facility] [address] [place] [address] Dr. Kirk García MYELOCYTE # Normal [facility] Comment on above: Performed By: #### U MICRO, ERUR #### [facility] [address] [address] [address] Kirk García MYELOCYTE % Normal [facility] Comment on above: Performed By: #### U MICRO, ERUR #### [facility] [address] [address] [address] Kirk García NRBC Normal [facility] Comment on above: Performed By: #### U MICRO, ERUR #### [facility] [address] [address] [address] Kirk García PLT 140 103/ul Critically low 150-450 [facility] Comment on above: Performed By: #### U MICRO, ERUR #### [facility] [address] [address] [address] Kirk García RBC 3.92 106/ul Critically low 4.70-6.10 [facility] Comment on above: Performed By: #### U MICRO, ERUR #### [facility] [address] [address] [address] Kirk García RDW 14.0 % Normal 11.0-15.0 [facility] Comment on above: Performed By: #### U MICRO, ERUR #### [facility] [address] [address] [address] Kirk García SEG # 9.86 103/ul Critically high 1.40-6.50 [facility] Comment on above: Performed By: #### U MICRO, ERUR #### [facility] [address] [address] [address] Kirk García SEG % 73.0 % Normal 43.0-75.0 [facility] Comment on above: Performed By: #### U MICRO, ERUR #### [facility] [address] [address] [address] Kirk García TOXIC GRANULATION 2+ Normal [facility] Comment on above: Performed By: #### U MICRO, ERUR #### [facility] [address] [address] [address] Kirk García WBC 13.5 103/ul Critically high 4.0-11.0 [facility] Comment on above: Performed By: #### U MICRO, ERUR #### [facility] [address] [address] [address] Kirk García PROF 14(COMP METB)on 022 Albumin [Mass/Vol] 3.0 g/dL Critically low 3.4-5.0 [facility] Comment on above: Performed By: #### C MP #### [facility] [address] [address] [address] Kirk García Albumin/Globulin [Mass ratio] 0.8 {ratio} Normal [facility] Comment on above: Performed By: #### C MP #### [facility] [address] [place] [address] Dr. Kirk García ALP [Catalytic activity/Vol] 81 U/L Normal 46-116 [facility] Comment on above: Performed By: #### C MP #### [facility] [address] [place] [address] Dr. Kirk García ALT [Catalytic activity/Vol] 50 U/L Normal 16-63 [facility] Comment on above: Performed By: #### C MP #### [facility] [address] [place] [address] Dr. Kirk García Anion gap [Moles/Vol] 8.2 mmol/L Normal [facility] Comment on above: Performed By: #### C MP #### [facility] [address] [place] [address] Dr. Kirk García AST [Catalytic activity/Vol] 14 U/L Critically low 15-37 [facility] Comment on above: Performed By: #### C MP #### [facility] [address] [place] [address] Dr. Kirk García Bilirubin [Mass/Vol] 0.9 mg/dL Normal 0.2-1.0 [facility] Comment on above: Performed By: #### C MP #### [facility] [address] [place] [address] Dr. Kirk García Calcium [Mass/Vol] 9.3 mg/dL Normal 8.5-10.1 [facility] Comment on above: Performed By: #### C MP #### [facility] [address] [address] [address] Kirk García Chloride [Moles/Vol] 100 mmol/L Normal 98-107 [facility] Comment on above: Performed By: #### C MP #### [facility] [address] [address] [address] Kirk García CO2 [Moles/Vol] 33.1 mmol/L Critically high 21.0-32.0 [facility] Comment on above: Performed By: #### C MP #### [facility] [address] [address] [address] Kirk García Creatinine [Mass/Vol] 1.56 mg/dL Critically high 0.70-1.30 [facility] Comment on above: Performed By: #### C MP #### [facility] [address] [address] [address] Kirk García EGFR-AF FRENCH 51 mL/min/1.73m2 Critically low >=60 [facility] Comment on above: Performed By: #### C MP #### [facility] [address] [address] [address] Kirk García EGFR-NON AF FRENCH 42 mL/min/1.73m2 Critically low >=60 [facility] Comment on above: Performed By: #### C MP #### [facility] [address] [address] [address] Kirk García Globulin (S) [Mass/Vol] 3.7 g/dL Normal [facility] Comment on above: Performed By: #### C MP #### [facility] [address] [address] [address] Kirk García Glucose [Mass/Vol] 107 mg/dL Critically high 74-106 [facility] Comment on above: Performed By: #### C MP #### [facility] [address] [address] [address] Kirk García Potassium [Moles/Vol] 5.3 mmol/L Critically high 3.5-5.1 [facility] Comment on above: Performed By: #### C MP #### [facility] [address] [address] [address] Kirk García Protein [Mass/Vol] 6.7 g/dL Normal 6.4-8.2 [facility] Comment on above: Performed By: #### C MP #### [facility] [address] [address] [address] Kirk García Sodium [Moles/Vol] 136 mmol/L Normal 136-145 [facility] Comment on above: Performed By: #### C MP #### [facility] [address] [address] [address] Kirk García Urea nitrogen [Mass/Vol] 50.0 mg/dL Critically high 7.0-18.0 [facility] Comment on above: Performed By: #### C MP #### [facility] [address] [place] [address] Dr. Kirk García Urea nitrogen/Creatinine [Mass ratio] 32.1 mg/mg Normal [facility] Comment on above: Performed By: #### C MP #### [facility] [address] [place] [address] Dr. Kirk García CULTURE URINEon 08-14-2022 CULTURE URINE Culture Observations: NO GROWTH. Normal [facility] Comment on above: Performed By: #### U MICRO, ERUR #### [facility] [address] [place] [address] Dr. Kirk García ER URINE PROFILEon Bilirubin Ql (U) Negative Normal NEGATIVE [facility] Comment on above: Performed By: #### U MICRO, ERUR #### [facility] [address] [place] [address] Dr. Kirk García Clarity (U) CLEAR Normal CLEAR [facility] Comment on above: Performed By: #### U MICRO, ERUR #### [facility] [address] [place] [address] Dr. Kirk García Color (U) ORANGE Abnormal YELLOW [facility] Comment on above: Performed By: #### U MICRO, ERUR #### [facility] [address] [place] [address] Dr. Yilan García ERUAHD A micrscopic examination will be performed if indicated. Normal [facility] Comment on above: Performed By: #### U MICRO, ERUR #### [facility] [address] [address] [address] Kirk García Glucose Ql (U) Negative Normal NEGATIVE [facility] Comment on above: Performed By: #### U MICRO, ERUR #### [facility] [address] [address] [address] Kirk García Hemoglobin Ql (U) LARGE Abnormal NEGATIVE [facility] Comment on above: Performed By: #### U MICRO, ERUR #### [facility] [address] [address] [address] Kirk García Ketones Ql (U) TRACE Abnormal NEGATIVE [facility] Comment on above: Performed By: #### U MICRO, ERUR #### [facility] [address] [place] [address] Dr. Kirk García LEUKOCYTES MODERATE Abnormal NEGATIVE [facility] Comment on above: Performed By: #### U MICRO, ERUR #### [facility] [address] [address] [address] Kirk García Nitrite Ql (U) Negative Normal NEGATIVE [facility] Comment on above: Performed By: #### U MICRO, ERUR #### [facility] [address] [place] [address] Dr. Kirk García pH (U) 5.5 [pH] Normal 5-9 [facility] Comment on above: Performed By: #### U MICRO, ERUR #### [facility] [address] [address] [address] Kirk García Protein (U) [Mass/Vol] 100 mg/dL Abnormal NEGAT DANYELL/ TRACE [facility] Comment on above: Performed By: #### U MICRO, ERUR #### [facility] [address] [place] [address] Dr. Kirk García SPEC GRAVITY 1.025 Normal 1.005-<=1.02 5 [facility] Comment on above: Performed By: #### U MICRO, ERUR #### [facility] [address] [place] [address] Dr. Kirk García UR MICRO IND INDICATED Normal [facility] Comment on above: Performed By: #### U MICRO, ERUR #### [facility] [address] [place] [address] Dr. Kirk García Urobilinogen Qn (U) 1.0 {Ryan'U}/dL Normal 0.2 - 1. 0 [facility] Comment on above: Performed By: #### U MICRO, ERUR #### [facility] [address] [place] [address] Dr. Kirk García URINE MICROSCOPIC ONLYon BACTERIA SMALL Abnormal NONE SEEN [facility] Comment on above: Performed By: #### U MICRO, ERUR #### [facility] [address] [place] [address] Dr. Kirk García Bacteria identified Cx Nom (U) INDICATED Normal [facility] Comment on above: Performed By: #### U MICRO, ERUR #### [facility] [address] [place] [address] Dr. Kirk García CAST NONE SEEN Normal NONE SEEN [facility] Comment on above: Performed By: #### U MICRO, ERUR #### [facility] [address] [place] [address] Dr. Kirk García Crystals LM Nom (Urine sed) NONE SEEN Normal NONE SEEN [facility] Comment on above: Performed By: #### U MICRO, ERUR #### [facility] [address] [place] [address] Dr. Kirk García Epithelial cells LM Ql (Urine sed) RARE Normal NONE SEEN /RARE [facility] Comment on above: Performed By: #### U MICRO, ERUR #### [facility] [address] [place] [address] Dr. Kirk García MUCOUS NONE SEEN Normal NONE SEEN [facility] Comment on above: Performed By: #### U MICRO, ERUR #### [facility] [address] [place] [address] Dr. Kirk García RBC 75-100 Abnormal 0-2 [facility] Comment on above: Performed By: #### U MICRO, ERUR #### [facility] [address] [address] [address] Kirk García WBC 50-75 Abnormal NONE SEEN [facility] Comment on above: Performed By: #### U MICRO, ERUR #### [facility] [address] [address] [address] Kirk García XR KNEE WILBER 4V [...] ANA DALAL Date: 2022-08-14 21:09 Normal [facility] CBC W MANUAL DIFFon 08-04-20 22 ATYPICAL LYMPH # Normal [facility] Comment on above: Performed By: #### C CHRISTOPHER #### [facility] [address] [address] [address] Kirk García ATYPICAL LYMPH % Normal [facility] Comment on above: Performed By: #### C CHRISTOPHER #### [facility] [address] [address] [address] Kirk García BAND # 0.0 103/ul Normal 0.0-0.3 [facility] Comment on above: Performed By: #### C TRISHMAN #### [facility] [address] [address] [address] Kirk García BAND % 1 % Normal 0-5 [facility] Comment on above: Performed By: #### C CHRISTOPHER #### [facility] [address] [address] [address] Kirk García BASOM # 0.00 103/ul Normal 0.00-0.10 [facility] Comment on above: Performed By: #### C CHRISTOPHER #### [facility] [address] [place] [address] Dr. Kirk García BASOM % 0.0 % Critically low 0.2-2.0 [facility] Comment on above: Performed By: #### C BCMAN #### [facility] [address] [place] [address] Dr. Kirk García BLAST # Normal [facility] Comment on above: Performed By: #### C BCMAN #### [facility] [address] [place] [address] Dr. Kirk García BLAST % Normal [facility] Comment on above: Performed By: #### C BCMAN #### [facility] [address] [place] [address] Dr. Kirk García CORRECTED WBC Normal 4.0-11.0 [facility] Comment on above: Performed By: #### C BCLEILA #### [facility] [address] [place] [address] Dr. Kirk García EOS # 0.00 103/ul Normal 0.00-0.70 [facility] Comment on above: Performed By: #### C BCLEILA #### [facility] [address] [place] [address] Dr. Kirk García EOS% 0.0 % Critically low 0.9-7.0 [facility] Comment on above: Performed By: #### C BCLEILA #### [facility] [address] [place] [address] Dr. Kirk García HCT 31.0 % Critically low 42.0-54.0 [facility] Comment on above: Performed By: #### C BCMAN #### [facility] [address] [place] [address] Dr. Kirk García HGB 10.5 g/dl Critically low 14.0-18.0 [facility] Comment on above: Performed By: #### C BCMAN #### [facility] [address] [place] [address] Dr. Kirk García LYMPHM # 0.31 103/ul Critically low 1.20-3.80 [facility] Comment on above: Performed By: #### C BCMAN #### [facility] [address] [address] [address] Kirk García LYMPHM% 11.0 % Critically low 20.5-60.0 [facility] Comment on above: Performed By: #### C CHRISTOPHER #### [facility] [address] [place] [address] Dr. Kirk García MCH 34.2 pg Critically high 25.9-34.0 [facility] Comment on above: Performed By: #### C CHRISTOPHER #### [facility] [address] [place] [address] Dr. Kirk García MCHC 33.9 g/dl Normal 29.9-35.2 [facility] Comment on above: Performed By: #### C CHRISTOPHER #### [facility] [address] [place] [address] Dr. Kirk García MCV 101.0 fL Critically high 80.0-94.0 [facility] Comment on above: Performed By: #### C CHRISTOPHER #### [facility] [address] [place] [address] Dr. Kirk García METAMYELOCYTE # 0.1 103/ul Normal [facility] Comment on above: Performed By: #### C CHRISTOPHER #### [facility] [address] [place] [address] Dr. Kirk García METAMYELOCYTE % 2 % Normal [facility] Comment on above: Performed By: #### C CHRISTOPHER #### [facility] [address] [place] [address] Dr. Kirk García MONOM# 0.03 103/ul Critically low 0.30-0.80 [facility] Comment on above: Performed By: #### C CHRISTOPHER #### [facility] [address] [place] [address] Dr. Kirk García MONOM% 1.0 % Critically low 1.7-12.0 [facility] Comment on above: Performed By: #### C CHRISTOPHER #### [facility] [address] [place] [address] Dr. Kirk García MPV 10.7 fL Normal 9.5-13.5 [facility] Comment on above: Performed By: #### C CHRISTOPHER #### [facility] [address] [address] [address] Kirk García MYELOCYTE # 0.0 103/ul Normal [facility] Comment on above: Performed By: #### C CHRISTOPHER #### [facility] [address] [address] [address] Kirk García MYELOCYTE % 1 % Normal [facility] Comment on above: Performed By: #### C CHRISTOPHER #### [facility] [address] [place] [address] Dr. Kirk García NRBC Normal [facility] Comment on above: Performed By: #### C CHRISTOPHER #### [facility] [address] [place] [address] Dr. Kirk García PLT 84 103/ul Critically low 150-450 [facility] Comment on above: Performed By: #### C CHRISTOPHER #### [facility] [address] [place] [address] Dr. Kirk García RBC 3.07 106/ul Critically low 4.70-6.10 [facility] Comment on above: Performed By: #### C CHRISTOPHER #### [facility] [address] [place] [address] Dr. Kirk García RDW 13.3 % Normal 11.0-15.0 [facility] Comment on above: Performed By: #### C CHRISTOPHER #### [facility] [address] [place] [address] Dr. Kirk García SEG # 2.35 103/ul Normal 1.40-6.50 [facility] Comment on above: Performed By: #### C CHRISTOPHER #### [facility] [address] [place] [address] Dr. Kirk García SEG % 84.0 % Critically high 43.0-75.0 [facility] Comment on above: Performed By: #### C CHRISTOPHER #### [facility] [address] [place] [address] Dr. Kirk García WBC 2.8 103/ul Critically low 4.0-11.0 [facility] Comment on above: Performed By: #### C BCMAN #### [facility] [address] [place] [address] Dr. Kirk García PROF CHEM 8 (BAS METB)on Anion gap [Moles/Vol] 9.9 mmol/L Normal [facility] Comment on above: Performed By: #### U MICRO, ERUR #### [facility] [address] [place] [address] Dr. Kirk García Calcium [Mass/Vol] 7.4 mg/dL Critically low 8.5-10.1 [facility] Comment on above: Performed By: #### U MICRO, ERUR #### [facility] [address] [place] [address] Dr. Kirk García Chloride [Moles/Vol] 100 mmol/L Normal 98-107 [facility] Comment on above: Performed By: #### U MICRO, ERUR #### [facility] [address] [place] [address] Dr. Kirk García CO2 [Moles/Vol] 23.8 mmol/L Normal 21.0-32.0 [facility] Comment on above: Performed By: #### U MICRO, ERUR #### [facility] [address] [place] [address] Dr. Kirk García Creatinine [Mass/Vol] 1.43 mg/dL Critically high 0.70-1.30 [facility] Comment on above: Performed By: #### U MICRO, ERUR #### [facility] [address] [place] [address] Dr. Kirk García EGFR-AF FRENCH 57 mL/min/1.73m2 Critically low >=60 [facility] Comment on above: Performed By: #### U MICRO, ERUR #### [facility] [address] [place] [address] Dr. Kirk García EGFR-NON AF FRENCH 47 mL/min/1.73m2 Critically low >=60 [facility] Comment on above: Performed By: #### U MICRO, ERUR #### [facility] [address] [address] [address] Kirk García Glucose [Mass/Vol] 148 mg/dL Critically high 74-106 [facility] Comment on above: Performed By: #### U MICRO, ERUR #### [facility] [address] [address] [address] Kirk García Potassium [Moles/Vol] 4.7 mmol/L Normal 3.5-5.1 [facility] Comment on above: Performed By: #### U MICRO, ERUR #### [facility] [address] [address] [address] Kirk García Sodium [Moles/Vol] 129 mmol/L Critically low 136-145 [facility] Comment on above: Performed By: #### U MICRO, ERUR #### [facility] [address] [place] [address] Dr. Kirk García Urea nitrogen [Mass/Vol] 42.0 mg/dL Critically high 7.0-18.0 [facility] Comment on above: Performed By: #### U MICRO, ERUR #### [facility] [address] [place] [address] Dr. Kirk García Urea nitrogen/Creatinine [Mass ratio] 29.4 mg/mg Normal [facility] Comment on above: Performed By: #### U MICRO, ERUR #### [facility] [address] [place] [address] Dr. Kirk García CBC AUTO DIFFon 08-03-2022 BASO # 0.0 103/ul Normal 0.0-0.1 [facility] Comment on above: Performed By: #### C BC #### [facility] [address] [place] [address] Dr. Kirk García Basophils/100 WBC (Bld) 0.0 % Critically low 0.2-2.0 [facility] Comment on above: Performed By: #### C BC #### [facility] [address] [place] [address] Dr. Kirk García EO # 0.0 103/ul Normal 0.0-0.7 [facility] Comment on above: Performed By: #### C BC #### [facility] [address] [place] [address] Dr. Kirk García Eosinophils/100 WBC (Bld) 0.2 % Critically low 0.9-7.0 [facility] Comment on above: Performed By: #### C BC #### [facility] [address] [place] [address] Dr. Kirk García Erythrocyte distribution width (RBC) [Ratio] 13.7 % Normal 11.0-15.0 [facility] Comment on above: Performed By: #### C BC #### [facility] [address] [place] [address] Dr. Kirk García Hematocrit (Bld) [Volume fraction] 34.3 % Critically low 42.0-54.0 [facility] Comment on above: Performed By: #### C BC #### [facility] [address] [place] [address] Dr. Kirk García Hemoglobin (Bld) [Mass/Vol] 11.8 g/dL Critically low 14.0-18.0 [facility] Comment on above: Performed By: #### C BC #### [facility] [address] [place] [address] Dr. Kirk García IG # 0.02 10e3/ul Normal 0.00-0.03 [facility] Comment on above: Performed By: #### C BC #### [facility] [address] [place] [address] Dr. Kirk García IG % 0.4 % Normal 0.0-0.5 [facility] Comment on above: Performed By: #### C BC #### [facility] [address] [place] [address] Dr. Kirk García LYMPH # 0.9 103/ul Critically low 1.2-3.8 [facility] Comment on above: Performed By: #### C BC #### [facility] [address] [place] [address] Dr. Kirk García Lymphocytes/100 WBC (Bld) 16.5 % Critically low 20.5-60.0 [facility] Comment on above: Performed By: #### C BC #### [facility] [address] [place] [address] Dr. Kirk García MANUAL DIFF REQ NO Normal [facility] Comment on above: Performed By: #### C BC #### [facility] [address] [place] [address] Dr. Kirk García MCH (RBC) [Entitic mass] 34.4 pg Critically high 25.9-34.0 [facility] Comment on above: Performed By: #### C BC #### [facility] [address] [place] [address] Dr. Kirk García MCHC (RBC) [Mass/Vol] 34.4 g/dL Normal 29.9-35.2 [facility] Comment on above: Performed By: #### C BC #### [facility] [address] [place] [address] Dr. Kirk García MCV (RBC) [Entitic vol] 100.0 fL Critically high 80.0-94.0 [facility] Comment on above: Performed By: #### C BC #### [facility] [address] [place] [address] Dr. Kirk García MONO # 1.2 103/ul Critically high 0.3-0.8 [facility] Comment on above: Performed By: #### C BC #### [facility] [address] [place] [address] Dr. Kirk García Monocytes/100 WBC (Bld) 22.3 % Critically high 1.7-12.0 [facility] Comment on above: Performed By: #### C BC #### [facility] [address] [place] [address] Dr. Kirk García NEUT # 3.4 103/ul Normal 1.4-6.5 [facility] Comment on above: Performed By: #### C BC #### [facility] [address] [place] [address] Dr. Kirk García Neutrophils/100 WBC (Bld) 60.6 % Normal 43.0-75.0 [facility] Comment on above: Performed By: #### C BC #### [facility] [address] [address] [address] Kirk García Platelet mean volume (Bld) [Entitic vol] 11.6 fL Normal 9.5-13.5 [facility] Comment on above: Performed By: #### C BC #### [facility] [address] [address] [address] Kirk García PLT 99 103/ul Critically low 150-450 [facility] Comment on above: Performed By: #### C BC #### [facility] [address] [address] [address] Kirk García RBC 3.43 106/ul Critically low 4.70-6.10 [facility] Comment on above: Performed By: #### C BC #### [facility] [address] [address] [address] Kirk García WBC 5.5 103/ul Normal 4.0-11.0 [facility] Comment on above: Performed By: #### C BC #### [facility] [address] [address] [address] Kirk García CULTURE BLOODon 08-03-2022 Microscopic examination of blood, culture Culture Observations: NO GROWTH AT 5 DAYS. Normal [facility] Comment on above: Performed By: #### U MICRO, ERUR #### [facility] [address] [id number] Kirk García Microscopic examination of blood, culture Culture Observations: NO GROWTH AT 5 DAYS. Normal [facility] Comment on above: Performed By: #### U MICRO, ERUR #### [facility] [address] [address] [address] Kirk García [facility]on SARS-CoV-2 (COVID-19) RNA SANAZ+probe Ql (Unsp spec) Detected Critically abnormal NOT DETECTED [facility] Comment on above: Result Comment: This test is not yet approved or cleared by the [place] FDA. When there are no FDA-approved or cleared tests available, and other criteria are met, FDA can make tests available under an emergency access mechanism called an Emergency Use Authorization (EUA). The EUA for this test is supported by the It Support Technician of Health and Human Service's declaration that [...] used). Performed By: #### C VDTBH #### [facility] [address] [place] [address] Dr. Kirk García GROUP A STREP CULTUREon S. pyogenes Ag Ql (Unsp spec) Culture Observations: NEGATIVE FOR GROUP A STREPTOCOCCUS. Normal [facility] Comment on above: Performed By: #### U MICRO, ERUR #### [facility] [address] [place] [address] Dr. Kirk García PROF 14(COMP METB)on 022 Albumin [Mass/Vol] 3.0 g/dL Critically low 3.4-5.0 [facility] Comment on above: Performed By: #### C MP #### [facility] [address] [place] [address] Dr. Kirk García Albumin/Globulin [Mass ratio] 0.7 {ratio} Normal [facility] Comment on above: Performed By: #### C MP #### [facility] [address] [place] [address] Dr. Kirk García ALP [Catalytic activity/Vol] 76 U/L Normal 46-116 [facility] Comment on above: Performed By: #### C MP #### [facility] [address] [place] [address] Dr. Kirk García ALT [Catalytic activity/Vol] 27 U/L Normal 16-63 [facility] Comment on above: Performed By: #### C MP #### [facility] [address] [place] [address] Dr. Kirk García Anion gap [Moles/Vol] 8.9 mmol/L Normal [facility] Comment on above: Performed By: #### C MP #### [facility] [address] [address] [address] Kirk García AST [Catalytic activity/Vol] 17 U/L Normal 15-37 [facility] Comment on above: Performed By: #### C MP #### [facility] [address] [address] [address] Kirk García Bilirubin [Mass/Vol] 1.3 mg/dL Critically high 0.2-1.0 [facility] Comment on above: Performed By: #### C MP #### [facility] [address] [address] [address] Kirk García Calcium [Mass/Vol] 8.1 mg/dL Critically low 8.5-10.1 [facility] Comment on above: Performed By: #### C MP #### [facility] [address] [address] [address] Kirk García Chloride [Moles/Vol] 94 mmol/L Critically low 98-107 [facility] Comment on above: Performed By: #### C MP #### [facility] [address] [address] [address] Kirk García CO2 [Moles/Vol] 27.5 mmol/L Normal 21.0-32.0 [facility] Comment on above: Performed By: #### C MP #### [facility] [address] [address] [address] Kirk García Creatinine [Mass/Vol] 1.65 mg/dL Critically high 0.70-1.30 [facility] Comment on above: Performed By: #### C MP #### [facility] [address] [address] [address] Kirk García EGFR-AF FRENCH 48 mL/min/1.73m2 Critically low >=60 [facility] Comment on above: Performed By: #### C MP #### [facility] [address] [address] [address] Kirk García EGFR-NON AF FRENCH 40 mL/min/1.73m2 Critically low >=60 [facility] Comment on above: Performed By: #### C MP #### [facility] [address] [address] [address] Kirk García Globulin (S) [Mass/Vol] 4.5 g/dL Normal [facility] Comment on above: Performed By: #### C MP #### [facility] [address] [address] [address] Kirk García Glucose [Mass/Vol] 118 mg/dL Critically high 74-106 [facility] Comment on above: Performed By: #### C MP #### [facility] [address] [address] [address] Kirk García Potassium [Moles/Vol] 4.4 mmol/L Normal 3.5-5.1 [facility] Comment on above: Performed By: #### C MP #### [facility] [address] [place] [address] Dr. Kirk García Protein [Mass/Vol] 7.5 g/dL Normal 6.4-8.2 [facility] Comment on above: Performed By: #### C MP #### [facility] [address] [address] [address] Kirk García Sodium [Moles/Vol] 126 mmol/L Critically low 136-145 [facility] Comment on above: Performed By: #### C MP #### [facility] [address] [place] [address] Dr. Kirk García Urea nitrogen [Mass/Vol] 36.0 mg/dL Critically high 7.0-18.0 [facility] Comment on above: Performed By: #### C MP #### [facility] [address] [address] [address] Kirk García Urea nitrogen/Creatinine [Mass ratio] 21.8 mg/mg Normal [facility] Comment on above: Performed By: #### C MP #### [facility] [address] [place] [address] Dr. Kirk García STREPT SCREENon 08-03-2022 STREP SCREEN A Negative Normal NEGATIVE [facility] Comment on above: Performed By: #### U MICRO, ERUR #### [facility] [address] [address] [address] Kirk García XR CHEST 1 Von [...] MILAGROS REEDER Date: 2022-08-03 12:55 Normal [facility] CBC AUTO DIFFon 07-08-2022 BASO # 0.0 103/ul Normal 0.0-0.1 [facility] Comment on above: Performed By: #### C BC #### [facility] [address] [address] [address] Kirk García Basophils/100 WBC (Bld) 0.5 % Normal 0.2-2.0 [facility] Comment on above: Performed By: #### C BC #### [facility] [address] [address] [address] Kirk García EO # 0.1 103/ul Normal 0.0-0.7 [facility] Comment on above: Performed By: #### C BC #### [facility] [address] [address] [address] Kirk García Eosinophils/100 WBC (Bld) 1.4 % Normal 0.9-7.0 [facility] Comment on above: Performed By: #### C BC #### [facility] [address] [address] [address] Kirk García Erythrocyte distribution width (RBC) [Ratio] 13.4 % Normal 11.0-15.0 [facility] Comment on above: Performed By: #### C BC #### [facility] [address] [place] [address] Dr. Kirk García Hematocrit (Bld) [Volume fraction] 39.6 % Critically low 42.0-54.0 [facility] Comment on above: Performed By: #### C BC #### [facility] [address] [place] [address] Dr. Kirk García Hemoglobin (Bld) [Mass/Vol] 13.2 g/dL Critically low 14.0-18.0 [facility] Comment on above: Performed By: #### C BC #### [facility] [address] [place] [address] Dr. Kirk García IG # 0.02 10e3/ul Normal 0.00-0.03 [facility] Comment on above: Performed By: #### C BC #### [facility] [address] [place] [address] Dr. Kirk García IG % 0.3 % Normal 0.0-0.5 [facility] Comment on above: Performed By: #### C BC #### [facility] [address] [place] [address] Dr. Kirk García LYMPH # 1.7 103/ul Normal 1.2-3.8 [facility] Comment on above: Performed By: #### C BC #### [facility] [address] [place] [address] Dr. Kirk García Lymphocytes/100 WBC (Bld) 28.7 % Normal 20.5-60.0 [facility] Comment on above: Performed By: #### C BC #### [facility] [address] [place] [address] Dr. Kirk García MANUAL DIFF REQ NO Normal [facility] Comment on above: Performed By: #### C BC #### [facility] [address] [place] [address] Dr. Kirk García MCH (RBC) [Entitic mass] 34.4 pg Critically high 25.9-34.0 [facility] Comment on above: Performed By: #### C BC #### [facility] [address] [place] [address] Dr. Kirk García MCHC (RBC) [Mass/Vol] 33.3 g/dL Normal 29.9-35.2 [facility] Comment on above: Performed By: #### C BC #### [facility] [address] [address] [address] Kirk García MCV (RBC) [Entitic vol] 103.1 fL Critically high 80.0-94.0 [facility] Comment on above: Performed By: #### C BC #### [facility] [address] [place] [address] Dr. Kirk García MONO # 0.9 103/ul Critically high 0.3-0.8 [facility] Comment on above: Performed By: #### C BC #### [facility] [address] [place] [address] Dr. Kirk García Monocytes/100 WBC (Bld) 15.8 % Critically high 1.7-12.0 [facility] Comment on above: Performed By: #### C BC #### [facility] [address] [place] [address] Dr. Kirk García NEUT # 3.1 103/ul Normal 1.4-6.5 [facility] Comment on above: Performed By: #### C BC #### [facility] [address] [place] [address] Dr. Kirk García Neutrophils/100 WBC (Bld) 53.3 % Normal 43.0-75.0 [facility] Comment on above: Performed By: #### C BC #### [facility] [address] [place] [address] Dr. Kirk García Platelet mean volume (Bld) [Entitic vol] 10.6 fL Normal 9.5-13.5 [facility] Comment on above: Performed By: #### C BC #### [facility] [address] [place] [address] Dr. Kirk García PLT 147 103/ul Critically low 150-450 [facility] Comment on above: Performed By: #### C BC #### [facility] [address] [place] [address] Dr. Kirk García RBC 3.84 106/ul Critically low 4.70-6.10 [facility] Comment on above: Performed By: #### C BC #### [facility] [address] [address] [address] Kirk García WBC 5.9 103/ul Normal 4.0-11.0 [facility] Comment on above: Performed By: #### C BC #### [facility] [address] [place] [address] Dr. Kirk García DIGOXINon 07-08-2022 DIG 1.1 ng/mL Normal 0.9-2.0 [facility] Comment on above: Performed By: #### U MICRO, ERUR #### [facility] [address] [place] [address] Dr. Kirk García PROF CHEM 8 (BAS METB)on Anion gap [Moles/Vol] 13.6 mmol/L Normal [facility] Comment on above: Performed By: #### U MICRO, ERUR #### [facility] [address] [place] [address] Dr. Kirk García Calcium [Mass/Vol] 9.5 mg/dL Normal 8.5-10.1 [facility] Comment on above: Performed By: #### U MICRO, ERUR #### [facility] [address] [place] [address] Dr. Kirk García Chloride [Moles/Vol] 97 mmol/L Critically low 98-107 [facility] Comment on above: Performed By: #### U MICRO, ERUR #### [facility] [address] [place] [address] Dr. Kirk García CO2 [Moles/Vol] 28.8 mmol/L Normal 21.0-32.0 [facility] Comment on above: Performed By: #### U MICRO, ERUR #### [facility] [address] [place] [address] Dr. Kirk García Creatinine [Mass/Vol] 1.43 mg/dL Critically high 0.70-1.30 [facility] Comment on above: Performed By: #### U MICRO, ERUR #### [facility] [address] [address] [address] Kirk García EGFR-AF FRENCH 57 mL/min/1.73m2 Critically low >=60 [facility] Comment on above: Performed By: #### U MICRO, ERUR #### [facility] [address] [address] [address] Kirk García EGFR-NON AF FRENCH 47 mL/min/1.73m2 Critically low >=60 [facility] Comment on above: Performed By: #### U MICRO, ERUR #### [facility] [address] [address] [address] Kirk García Glucose [Mass/Vol] 99 mg/dL Normal 74-106 [facility] Comment on above: Performed By: #### U MICRO, ERUR #### [facility] [address] [address] [address] Kirk García Potassium [Moles/Vol] 4.4 mmol/L Normal 3.5-5.1 [facility] Comment on above: Performed By: #### U MICRO, ERUR #### [facility] [address] [address] [address] Kirk García Sodium [Moles/Vol] 135 mmol/L Critically low 136-145 [facility] Comment on above: Performed By: #### U MICRO, ERUR #### [facility] [address] [address] [address] Kirk García Urea nitrogen [Mass/Vol] 29.0 mg/dL Critically high 7.0-18.0 [facility] Comment on above: Performed By: #### U MICRO, ERUR #### [facility] [address] [address] [address] Kirk García Urea nitrogen/Creatinine [Mass ratio] 20.3 mg/mg Normal [facility] Comment on above: Performed By: #### U MICRO, ERUR #### [facility] [address] [address] [address] Kirk García Patient Educationon 03-16-20 Patient [...] Are older than age 65. ? Are -V[place]an. ? Are obese. ? Have a family [...] Follow these instructions at home: ? Take bhvc-xvw-yizoedo and prescription medicines only as told by [...] specialis (more content not included)... Normal [facility] Urology Office/Clinic Noteon 03-16-2022 Urology Office/Clinic [...] E&M of Est. Patient Moderate 30-39 Min 84443 Measure Post Void residual urine and/or bladder capacity by US- non-imaging 49656 Urnls Dip Stick Auto w/o Microscopy POC 66095 2. History of prostate cancer (Z85.46: Personal history of malignant neoplasm of prostate) s/p brachytherapy in 2004. PSA remained very low. pt decided to have PCP do annual monitoring when he saw PRW March 2021. Ordered: E&M of Est. Patient Moderate 30-39 Min 63191 Measure Post Void residual urine and/or bladder capacity by US- non-imaging 54300 Urnls Dip Stick Auto w/o Microscopy POC 85826 Orders: oxybutynin, 5 mg = 1 tab(s), Oral, Daily, # 90 tab(s), Refills(s) 3, Pharmacy: [facility], 183, cm, 03/16/22 9:10:00 EDT, Height/Length Dosing, 99.3, kg, 03/16/22 9:10:00 EDT, Weight Dosing Follow-up With When Contact Information KENNETH SHEPARD, MARYBETH Trivedi, URL Within 6 months [address] [place] [address] [facility] (1) Additional Instructions: Patient Education Prostate Cancer 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 Cholecystitis Gross hematuria History of prostate cancer Hyperlipidemia Hypertension 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 Normal [facility] Comment on above: Result Comment: Elec tronically Signed By: MARYBETH STANLEY PA-C\.br\Date and Time Signed: 03/16/22 09:55 EDT [...] Are older than age 65. ? Are -[place]an. ? Are obese. ? Have a family [...] Follow these instructions at home: ? Take bibd-jpm-dhbwowd and prescription medicines only as told by [...] cancer specialis (more content not included)... Normal [facility] Urology Office/Clinic Noteon 01-06-2022 Urology Office/Clinic [...] worsen Ordered: Office Visit Level 4 Est 99651 2. History of prostate cancer (Z85.46: Personal history of malignant neoplasm of prostate) s/p brachytherapy in 2004. PSA remained very low. pt decided to have PCP do annual monitoring when he saw PRW at last visit March 2021. 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 Normal [facility] Comment on above: Result Comment: Elec tronically Signed By: MARYBETH STANLEY PA-C\.lisa\Date and Time Signed: 01/06/22 16:55 EST Leora 07-29-2021 MANOJ Telephone (Dovetail) SAMSON KELLEY ([id number]) 1935 M Date Time Provider Department 07/29/21 DALILA BALL During your visit today, we recorded the following information about you: Dalila Ball RN 07/29/2021 10:36 AM Signed Spoke with Samson, he is currently still at the hotel and is planning on going to the [facility]. We discussed pain control and did remind patient use of Aleve or Motrin in between narcotics as the narcotics can increase issues with constipation. We did discuss use of Miralax if no Bm by Monday and patients states [place] will help him with that. Encouraged to keep up with water intake especially since no appetite today. Allergies As of Date: 07/29/2021 (No Known Allergies) Date Reviewed: 07/28/2021 Reviewed by: Aracelis Ochoa RN - Fully Assessed Reason for Visit: Admissions Recruiter - Other [2182] Cmt: post-op Prescriptions as of 07/29/2021 - [...] Encounter Status:Closed by DALILA BALL on 07/29/21 Normal [facility] ANES POSTPROC EVALon 021 ANES POSTPROC EVAL HNO ID: [id number] Author: Ramiro Esquivel MD Service: Anesthesiology Author Type: Anesthesiologist Type: Anesthesia Postprocedure Evaluation Filed: 07/28/2021 1:35 PM Note Text: POST ANESTHESIA EVALUATION NOTE : 1935 Procedure Summary Date: 07/28/21 Room / Location: AV OR02 / AV OR Anesthesia Start: 3 Anesthesia Stop: 1133 Procedure: LAPAROSCOPIC CHOLECYSTECTOMY WITH GRAMS (N/A Gallbladder) [...] July 28, 2021 TIME: 1:35 PM CSN: [id number] [facility] ANES PRE-OPon 07-28-2021 ANES PRE-OP HNO ID: [id number] Author: Ramiro Esquivel MD Service: Anesthesiology Author [...] (96.9 ?F) 07/28/21 0954 SpO2 95 % 07/28/21953 Facility-Administere d Medications as of 07/28/2021 Medication Dose Route Frequency - lidocaine 10 mg/mL (1 %) 1-2 mg injection (XYLOCAINE) 0.1-0.2 mL INTRADERMAL PRN - lactated ringers iv infusion 5-30 mL/hr INTRAVENOUS CONTINUOUS - [START ON 07/29/2021] ampicillin-sulbactam iv piggyback 3 g in NaCl 0.9% 100 mL Vial-Bag (UNASYN) 3 g INTRAVENOUS Trailer Technician to OR - [COMPLETED] acetaminophen 1,000 mg [...] July 28, 2021 TIME: 10:17 AM CSN: [id number] Normal [facility] HISTORY PHYSICALon HISTORY PHYSICAL HNO ID: [id number] Author: Jewel Cary III, MD Service: General [...] DATE: July 28, 2021 TIME: 10:16 AM [facility] OPERATIVE NOon 07-28-2021 OPERATIVE NO HNO ID: [id number] Author: Jewel Cary III, MD Service: General Surgery Author Type: Physician Type: Operative Report Filed: 07/28/2021 11:24 AM Note Text: OPERATIVE REPORT LOG ID: [id number] SURGERY/PROCEDURE DATE: 07/28/2021 INCISION/PROCEDURE START TIME: 10:47 AM INCISION CLOSE/PROCEDURE END TIME: 11:24 AM SURGEON: Jewel Cary III, MD ?? TELEVISION MAINTENANCE MAN: Monserrat Salazar PA-C? ? OPERATION: Laparoscopic cholecystectomy (10243). ? ANESTHESIA: GETA and 10 mL of [...] July 28, 2021 TIME: 11:22 AM Normal [facility] SURGICAL PATHOLOGYon 021 SURGICAL PATHOLOGY Specimen originated from [facility] Specimen #: [id number] Submitting Physician: JEWEL CARY MD FINAL DIAGNOSIS [...] The mucosa is walker-red, hyperemic, and granular. Lobby Concierge sections are submitted as follows: A1 cystic duct margin and wall, A2 fundus. SLE/ch 07/28/2021 Gross examination performed at [facility], [facility] [place] [address] Date of Report: 07/29/2021 Date of Procedure: 07/28/2021 Date of Receipt: 07/28/2021 Submitted by: JEWEL CARY MD Location: AV Diagnostic interpretation performed at [facility], [facility] [place] [address]. CLIA Number: [id number] Normal [facility] Reference Lab Comment on above: Performed By: #### S #### See report for performing lab information. HISTORY PHYSICALon 08-23-202 1 HISTORY PHYSICAL HNO ID: [id number] Author: Denita Simmons PA-C Service: ? Author Type: Physician Dye Weigher Helper Type: HANDP Filed: 07/19/2021 4:18 PM Note [...] in November 2019. He was admitted to [facility] due to Yuni cystitis. Providers [...] HERNIA REPAIR HX age 19's - PACEMAKER 2007 - PACEMAKER 01/2021 [employer] placed - PAST SURGICAL HISTORY OF [...] fevers. Neuro: No history of TIA's, stroke, STITCHING MACHINE OPERATOR tumor, impaired sensorium, hemiplegia, paraplegia or quadraplegia. No neurological symptoms or problems. Respiratory: Negative for Asthma, Dyspnea, Tobacco Use, URI < 2 weeks +PND - can rarely trigger cough, but stable, no acute symptoms Cardiovascular: +Pacemaker ([employer]) - A-fib hx, CHB no symptoms +Heart failure - on digoxin, Lasix. Chronic lower extremity edema. +Valve history - s/p Mitral and tricuspid repair 2017 - Dr. Adrianna Geiger - Ra (more content not included)... [facility] CNCOon 07-13-2021 CNCO Letter Text Normal [facility] CNPNon 07-13-2021 CNPN Telephone (GENSAV) SAMSON KELLEY ([id number]) 1935 M Date Time Provider Department 07/13/21 [...] surgeons office by routing message back to SHORTY MACHINE LONG GOODS HELPER, prior to notifying the patient. Marybeth Laureano 07/13/2021 1:53 PM Signed Pt seeing Cardi Dr Adrianna Geiger @ [place] [address] Will send clearance to this provider Cat Gibbs 07/15/2021 11:03 AM Signed Cari from [facility] office called and asked to have clearance letter fax to [phone]. Thank you. Marybeth Laureano 07/15/2021 11:21 AM Signed Letter reprinted and faxed to [facility] office with confirmation received. Denita Simmons PA-C [...] Encounter Status:Closed by MARYBETH LAUREANO on 07/13/21 [facility] [place] 07-12-2021 MANOJ Telephone ([email or web address]) SAMSON KELLEY ([id number]) 1935 M Date Time Provider Department 07/12/21 JEWEL CARY III During your visit today, we recorded the following information about you: Marybeth Georgi 07/13/2021 2:08 PM Addendum Cur received Pt needs cardiac clearance Dr Kody Lynn Tele enct sent Spoke w pt he now sees Dr Adrianna Geiger at [facility]. Letter electronically sent. Marybeth Georgi 07/13/2021 3:25 PM Signed electronic faxed failed printed and sent to verified fax number of [phone]. Confirmed received. Marybeth Georgi 07/19/2021 3:02 PM Signed P[facility] received clearance from Dr Geiger. Pt cleared scheduled 07-28-21 Allergies As of Date: 07/12/2021 (No Known Allergies) Date Reviewed: 12/08/2019 Reviewed by: Katherine (Rn) Lucy RN - Fully Assessed Reason for Visit: Schedule [...] Status:Closed by MARYBETH LAUREANO on 07/19/21 Normal [facility] HISTORY PHYSICALon HISTORY PHYSICAL HNO ID: [id number] Author: Jewel Cary III, MD Service: ? [...] for internal providers or letter via the [employer] for external providers. HISTORY: He [...] stored in (more content not included)... Normal [facility] OPERATIVE REPORTon OPERATIVE REPORT NAME: SAMSON KELLEY MR#: [id number] SURGEON: Adrianna Geiger MD DATE OF SURGERY: 02/01/2021 OPERATIVE REPORT PREOPERATIVE DIAGNOSIS: End of life pacemaker pulse generator. POSTOPERATIVE DIAGNOSIS: End of life pacemaker pulse generator. PROCEDURE: Change out of end of life pacemaker pulse generator. DESCRIPTION OF PROCEDURE: financial aid coordinator to the OR, he received 1 g [...] inserted. The new pulse generator is a [employer] Accolade MRI safe pacemaker, model #L311 serial #[id number]. The pulse generator was attached to the [...] of the day today. ADRIANNA GEIGER MD [facility]/[id number] E/S: Adrianna Geiger MD 02/08/21 0856 Electronically Signed [facility] PT NAME: SAMSON KELLEY MR#: [id number] [address] [place], [place] [address] ACCT: [id number] : [birth year] OPERATIVE REPORT Normal [facility] SURGon 02-01-2021 SURG Normal [facility] Comment on above: Result Comment: RUN DATE: 02/02/21 [facility] LAB *LIVE* PAGE 1RUN TIME: 1351 Specimen InquiryRUN USER: [employer] Name: SAMSON KELLEY : [birth year] Sex:M Attend Dr: Adrianna Geiger [facility]#: [id number] Unit#: [id number] Status: [facility]17-01 Received: 02/01/21-1320 Status: PRIYANKA Saravia#: [id number]#: [id number] Collected: 02/01/21-[address] [facility] [address]: Ardianna Geiger MDTISSUES: A. EXPLANTED HARDWARE MICROSCOPIC EXAM: N/A DIAGNOSIS: EXPLANTED HARDWARE, REMOVAL: - PULSE GENERATOR (GROSS DIAGNOSIS ONLY) Signed Signature on File KT SCHAFER 02/02/21 1351 [facility] Name: [facility] Hosp Num: [id number] A [employer] of Age / Sex: 85/M [facility] Physician: [place] [address] [place] [address] Location: SAME DAY SURGERY END OF REPORT Performed By: #### P SURG ####Test performed at: [place] [address] Vital Signs Date Time Vital Sign Value Performing Clinician Facility 01-16-2024 11:34-0500 Body height 182.88 cm [facility] 01-16-2024 11:34-0500 Body mass index (BMI) [Ratio] 28.5 kg/m2 [facility] 01-16-2024 11:34-0500 Body weight 95.48 kg [facility] 01-16-2024 11:34-0500 Diastolic blood pressure 62 mm[Hg] [facility] 01-16-2024 11:34-0500 Heart rate 82 /min [facility] 01-16-2024 11:34-0500 Respiratory rate 20 /min [facility] 01-16-2024 11:34-0500 Systolic blood pressure 102 mm[Hg] [facility] 12-08-2023 11:30-0500 Body height 182.88 cm [facility] 12-08-2023 11:30-0500 Body weight 94.16 kg [facility] 12-08-2023 11:30-0500 Diastolic blood pressure 74 mm[Hg] [facility] 12-08-2023 11:30-0500 Systolic blood pressure 115 mm[Hg] [facility] 11-22-2023 10:00-0500 Body height 182.88 cm Timo Ball Other [facility] 11-22-2023 10:00-0500 Body mass index (BMI) [Ratio] 28.67 kg/m2 Timo Ball Other [employer] Other 11-22-2023 10:00-0500 Body weight 95.89 kg Timo Ball Other [employer] Other 11-22-2023 10:00-0500 Body weight 95.88 kg [facility] 11-22-2023 10:00-0500 Diastolic blood pressure 64 mm[Hg] Timo Ball Other [facility] 11-22-2023 10:00-0500 Respiratory rate 16 /min Timo Ball Other [employer] Other 11-22-2023 10:00-0500 SaO2% (BldA) [Mass fraction] 95 % Timo Ball Other [employer] Other 11-22-2023 10:00-0500 Systolic blood pressure 102 mm[Hg] Timo Ball Other [facility] 10-03-2023 13:45-0500 Body height 182.88 cm Timo Ball Other [employer] Other 10-03-2023 13:45-0500 Body mass index (BMI) [Ratio] 29.02 kg/m2 Timo Ball Other [employer] Other 10-03-2023 13:45-0500 Body weight 97.07 kg Timo Ball Other [employer] Other 10-03-2023 13:45-0500 Diastolic blood pressure 67 mm[Hg] Timo Ball Other [employer] Other 10-03-2023 13:45-0500 Respiratory rate 16 /min Timo Ball Other [employer] Other 10-03-2023 13:45-0500 Systolic blood pressure 106 mm[Hg] Timo Ball Other [employer] Other 09-29-2023 13:45-0400 Body height 182.88 cm Timo Ball Other [employer] Other 08-31-2023 11:00-0400 Body height 182.88 cm Timo Ball Other [employer] Other 08-31-2023 11:00-0400 Body mass index (BMI) [Ratio] 28.23 kg/m2 Timo Ball Other [employer] Other 08-31-2023 11:00-0400 Body weight 94.44 kg Timo Ball Other [employer] Other 08-31-2023 11:00-0400 Diastolic blood pressure 61 mm[Hg] Timo Ball Other [employer] Other 08-31-2023 11:00-0400 Respiratory rate 12 /min Timo Ball Other [employer] Other 08-31-2023 11:00-0400 Systolic blood pressure 105 mm[Hg] Timo Ball Other [employer] Other 05-26-2023 11:00-0400 Body height 182.88 cm Timo Ball Other [employer] Other 05-26-2023 11:00-0400 Body mass index (BMI) [Ratio] 28.69 kg/m2 Timo Ball Other [employer] Other 05-26-2023 11:00-0400 Body weight 95.98 kg Timo Ball Other [employer] Other 05-26-2023 11:00-0400 Diastolic blood pressure 66 mm[Hg] Timo Ball Other [employer] Other 05-26-2023 11:00-0400 Respiratory rate 16 /min Timo Ball Other [employer] Other 05-26-2023 11:00-0400 Systolic blood pressure 116 mm[Hg] Timo Ball Other [employer] Other 01-20-2023 11:00-0500 Body height 182.88 cm Timo Ball Other [employer] Other 01-20-2023 11:00-0500 Body mass index (BMI) [Ratio] 28.53 kg/m2 Timo Ball Other [employer] Other 01-20-2023 11:00-0500 Body weight 95.44 kg Timo Ball Other [employer] Other 01-20-2023 11:00-0500 Diastolic blood pressure 64 mm[Hg] Timo Ball Other [employer] Other 01-20-2023 11:00-0500 Respiratory rate 16 /min Timo Ball Other [employer] Other 01-20-2023 11:00-0500 Systolic blood pressure 102 mm[Hg] Timo Ball Other [facility] [employer] Other 09-21-2022 12:18-0400 Blood Pressure Location MARYBETH KENNETH [facility] 09-21-2022 12:18-0400 Diastolic blood pressure 58 mm[Hg] MARYBETH KENNETH [facility] 09-21-2022 12:18-0400 Heart rate 80 /min MARYBETH KENNETH [facility] 09-21-2022 12:18-0400 Respiratory rate 16 /min MARYBETH KENNETH [facility] 09-21-2022 12:18-0400 Systolic blood pressure 111 mm[Hg] MARYBETH KENNETH [facility] 03-16-2022 08:49-0400 Blood Pressure Location MARYBETH KENNETH [facility] [place] 03-16-2022 08:49-0400 Diastolic blood pressure 65 mm[Hg] MARYBETH KENNETH [facility] 03-16-2022 08:49-0400 Heart rate 75 /min MARYBETH KENNETH [facility] 03-16-2022 08:49-0400 Systolic blood pressure 93 mm[Hg] MARYBETH KENNETH [facility] Encounters Encounter Date Encounter Type Care Provider Facility Start: 02-07-2024 End: 02-07-2024 ambulatory Martha Meier Facility:[facility] Start: 01-26-2024 End: 01-26-2024 ambulatory RENÉ FLOWERS [facility] Start: 01-16-2024 End: 01-16-2024 ambulatory [facility] Work Phone: Start: 01-16-2024 End: 01-16-2024 Patient encounter procedure [facility] Work Phone: Start: 01-12-2024 Non-patient / Non-visit [facility] Work Phone: Start: 01-11-2024 Non-patient / Non-visit [facility] Work Phone: Start: 01-10-2024 Non-patient / Non-visit [facility] Work Phone: Start: 01-09-2024 Non-patient / Non-visit [facility] Work Phone: Start: 01-08-2024 Non-patient / Non-visit [facility] Work Phone: Start: 01-01-2024 End: 01-01-2024 ambulatory MARGARITA HERNANDEZ [facility] Start: 12-29-2023 End: 12-29-2023 ambulatory Timo Francis Other [employer] Other Start: 12-29-2023 Telephone encounter Timo Francis [facility] Start: 12-26-2023 End: 12-26-2023 ambulatory EDDIE WEISS Not Available Start: 12-20-2023 End: 12-20-2023 ambulatory Timo Francis Other [employer] Other Start: 12-20-2023 Telephone encounter Timo Ball [facility] Start: 12-15-2023 End: 12-15-2023 ambulatory Timo Francis Other [employer] Other Start: 12-15-2023 Telephone encounter Timo Francis [facility] Start: 12-11-2023 End: 12-11-2023 ambulatory Timo Francis Other [employer] Other Start: 12-11-2023 Telephone encounter Timo Francis [facility] Start: 12-08-2023 End: 12-08-2023 Patient encounter procedure [facility] Work Phone: Start: 12-05-2023 End: 12-05-2023 ambulatory Timo Francis Other [employer] Other Start: 12-05-2023 Telephone encounter Timo Francis [facility] Start: 11-22-2023 End: 11-22-2023 ambulatory Timo Francis Other [employer] Other Start: 11-22-2023 Telephone encounter Timo Franics [facility] Start: 11-22-2023 Transitional care carlie villasenor srvc 14 day discharge Timo Francis [facility] Start: 11-22-2023 End: 11-22-2023 Patient encounter procedure [facility] Work Phone: Start: 11-17-2023 End: 11-17-2023 ambulatory Timo Francis Other [employer] Other Start: 11-17-2023 Telephone encounter Timo DIEGO [facility] Start: 10-04-2023 End: 10-04-2023 ambulatory Timo Francis Other [employer] Other Start: 10-04-2023 Telephone encounter Timo Francis [facility] Start: 10-03-2023 End: 10-03-2023 ambulatory Timo Francis Other [employer] Other Start: 10-03-2023 Office outpatient vi sit 15 minutes Timo Francis [facility] Start: 09-29-2023 End: 09-29-2023 ambulatory Timo Francis Other [employer] Other Start: 09-29-2023 Nursing evaluation o f patient and report Timo Francis [facility] Start: 09-06-2023 End: 09-06-2023 ambulatory Timo Francis Other [employer] Other Start: 09-06-2023 Telephone encounter Timo Francis [facility] Start: 08-31-2023 End: 08-31-2023 ambulatory Timo Francis Other [employer] Other Start: 08-31-2023 Patient encounter procedure [facility] Start: 05-26-2023 End: 05-26-2023 ambulatory Timo Francis Other [employer] Other Start: 05-26-2023 Office outpatient vi sit 25 minutes Timo Penny [facility] Start: 05-02-2023 End: 05-02-[address] [facility] Start: 04-17-2023 End: 04-17-2023 ambulatory JUAN LUIS [facility] Start: 01-20-2023 End: 01-20-2023 ambulatory Timo Francis Other [employer] Other Start: 01-20-2023 Office outpatient vi sit 25 minutes Timo Penny [facility] Start: 09-21-2022 End: 09-22-2022 ambulatory MARYBETH STANLEY Facility:[facility] Start: 09-21-2022 End: 09-21-2022 Patient encounter procedure MARYBETH STANLEY [facility] Start: 09-06-2022 End: 09-07-[address] TIMO FRANCIS Facility:[facility] Start: 08-14-2022 End: 08-15-[address] TIMO FRANCIS Facility:[facility] Start: 08-03-2022 End: 08-04-[address] TIMO FRANCIS Facility:[facility] Start: 07-08-2022 End: 07-09-[address] TIMO FRANCIS Facility:[facility] Start: 03-16-2022 End: 03-17-2022 ambulatory MARYBETH STANLEY Facility:[facility] Start: 03-16-2022 End: 03-16-2022 Patient encounter procedure MARYBETH STANLEY [facility] Start: 01-06-2022 End: 01-07-2022 ambulatory MARYBETH STANLEY Facility:[facility] Start: 01-05-2022 ambulatory MARYBETH STANLEY Facility [facility] Start: 12-07-2018 Patient encounter procedure Facility:[id number] Start: 12-06-2018 Patient encounter procedure Facility:[id number] Procedures Date Procedure Procedure Detail Performing Clinician Start: 01-08-2024 Blood Culture 1 Start: 01-08-2024 Blood Culture 2 Start: 07-08-[address] CURRIE IN [place] Comment on above: Performed By: #### U MICRO, ERUR #### [facility] [address] [place] [address] Dr. Kirk García Start: 07-28-2021 Cholecystectomy SHADIA STANLEY Start: 11-27-2006 Colonoscopy MARYBETH GRAVES Start: 11-27-2004 Implantation of radi oactive seed into prostate MARYBETH STANLEY Repair of right ingu inal hernia MARYBETH STANLEY Transrectal biopsy o f prostate using ultrasound guidance MARYBETH STANLEY Immunizations Immunization Date Immunization Notes Care Provider Dari pérez 09-29-2023 influenza, high dose seasonal, preservative-free Timo Francis Other [employer] Other 09-29-2023 influenza virus vaccine, unspecified formulation [facility] 09-07-2022 influenza virus vaccine, split virus (incl. purified surface antigen) Timo Francis Other [employer] Other 09-07-2022 influenza virus vaccine, unspecified formulation [facility] 04-26-2022 SARS-CoV-2 mRNA (xwukxjenpnf-bhno-couxj se) vaccine MARYBETH KENNETH [facility] 09-02-2021 SARS-CoV-2 (COVID-19 ) mRNA BNT-162b2 vax MARYBETH KENNETH [facility] 08-18-2021 influenza virus vaccine, unspecified formulation MARYBETH KENNETH [facility] 08-13-2021 influenza virus vaccine, split virus (incl. purified surface antigen) Timo Francis Other [employer] Other 08-13-2021 influenza virus vaccine, unspecified formulation [facility] 02-23-2021 SARS-CoV-2 (COVID-19 ) mRNA BNT-162b2 vax MARYBETH KENNETH [facility] 02-03-2021 SARS-CoV-2 (COVID-19 ) mRNA BNT-162b2 vax MARYBETH KENNETH [facility] Comment on above: Result Comment: 2021: [id number] 01-25-2021 SARS-CoV-2 (COVID-19 ) mRNA BNT-162b2 vax MARYBETH KENNETH [facility] 08-31-2020 influenza virus vaccine, split virus (incl. purified surface antigen) Timo Francis Other [facility] [employer] Other 08-31-2020 influenza virus vaccine, unspecified formulation [facility] 08-30-2019 influenza virus vaccine, split virus (incl. purified surface antigen) Timo Francis Other [facility] [employer] Other 08-30-2019 influenza virus vaccine, unspecified formulation MARYBETH STANLEY [facility] 08-29-2018 influenza virus vaccine, split virus (incl. purified surface antigen) Timo Penny Other [facility] [employer] Other 08-29-2018 influenza virus vaccine, unspecified formulation MARYBETH STANLEY [facility] 08-03-2017 influenza virus vaccine, split virus (incl. purified surface antigen) Timo Penny Other [facility] [employer] Other 08-03-2017 influenza virus vaccine, unspecified formulation MARYBETH STANLEY [facility] 09-05-2016 influenza virus vaccine, split virus (incl. purified surface antigen) Timo Francis Other [facility] [employer] Other 09-05-2016 influenza virus vaccine, unspecified formulation MARYBETH STANLEY [facility] 10-16-2015 pneumococcal conjuga te vaccine, 13 valent Timo Francis Other [facility] 09-01-2015 influenza virus vaccine, split virus (incl. purified surface antigen) Timo Francis Other [facility] [employer] Other 09-01-2015 influenza virus vaccine, unspecified formulation [facility] 09-15-2014 tetanus and diphther ia toxoids, adsorbed, preservative free, for adult use (5 Lf of tetanus toxoid and 2 Lf of diphtheria toxoid) Timo Francis Other [facility] 08-27-2013 tetanus and diphther ia toxoids, adsorbed, preservative free, for adult use (5 Lf of tetanus toxoid and 2 Lf of diphtheria toxoid) Timo Francis Other [facility] 01-10-2007 pneumococcal polysaccharide vaccine, 23 valent Timo Francis Other [facility] 1999 pneumococcal polysaccharide vaccine, 23 valent MARYBETH STANLEY [facility] Payers Date Payer Category Payer Self-pay 2024 Unknown [id number] 2.16.8 [id number] 2023 Unknown [id number] 1959 Medicare [id number] 1959 Unknown [id number] 1934 Unknown [id number] 2.16. [id number] 1934 Unknown [id number] 2.16. 840.1.010328.3.579.2.356 1934 Unknown [id number] 2.16.8 40.1.744170.3.579.2.727 1934 Unknown [id number] 2.16.8 40.1.937358.3.579.2.727 1934 Unknown [id number] 2.16.8 40.1.550160.3.579.2.727 1934 Unknown [id number] 2.16.8 40.1.156719.3.579.2.727 1934 Unknown [id number] 2.16.8 40.1.922116.3.579.2.727 1934 Unknown [id number] 2.16.84 0.1.607222.3.579.2.593 1934 Unknown [id number] 2.16.84 0.1.723230.3.579.2.593 1934 Unknown [id number] 2.16.84 0.1.946012.3.579.2.593 1934 Unknown [id number] 2.16.84 0.1.690771.3.579.2.593 1934 Unknown [id number] 2.16.84 0.1.825294.3.579.2.1259 Medicare [id number] Unknown [facility] Health Claims [id number] Unknown Other1 (STD) [id number] Unknown [id number] 2.16.8 [id number] Social History Date Type Detail Facility Start: 03-16-2022 End: 01-16-2024 Tobacco smoking status Never smoked tobacco (finding) [facility] Tobacco smoking status Never [facility] Sex Assigned At Male [facility] Start: 1935 Sex Assigned At Male F [facility] Functional Status Date Assessment Result Facility 09-21-2022 Functional Status N/A [facility] Clinical Notes 07-28-2021 to 01-26-2024 Note Date & Type Note Facility 01-26-2024 Note CAMERON clip 2016 No anticoagulation with CAMERON clip Continue toprol and digoxin- rate is controlled in office [facility] 01-26-2024 Note Will monitor with ro utine echocardiograms. [facility] 01-26-2024 Note Continue diuresis wi th lasix bid for next 2-3 days and then resume daily dose. [facility] 01-26-2024 Note Hypertension is stab le Well controlled 100/60 Continue all meds [facility] 01-26-2024 Note [facility] Continue GDMT- ASA, digoxin, lisinopril, toprol with midodrine. Diuretic therapy- lasix 40 mg daily with bid as needed for fluid overload. Asked pt to continue lasix bid for next 2-3 days Sent pt to lab for BMP Monitor daily weights, I&O, fluid restriction 1.5-2L/day, renal function and electrolytes- please maintain K+>4 and Mg > 2 [facility] 01-26-2024 Note [facility] CARDIOLOGY PROGR ESS NOTE [facility] HPI: Samson Kelley is a 88 y.o. male here for hospital F/U at [facility] HPI 88 y.o. 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 He was started on midodrine [...] VALVE: Normal trile (more content not included)... [facility] 01-26-2024 Note Patient here for [facility]. He was started on midodrine and thyroid medication. .Review of Systems Eyes: Positive for vision loss in left eye and vision loss in right eye. Cardiovascular: Positive for dyspnea on exertion and leg swelling. Respiratory: Positive for shortness of breath. Hematologic/Lymphatic: Bruises/bleeds easily. All other systems reviewed and are negative. [facility] 01-01-2024 Note Patient here for 6 m o follow up and device check. He was admitted to [facility] in Oct 2023 and was [...] All other systems reviewed and are negative. 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 [...] on file Intimate Partner Violence: Unknown (01/01/2024) OR Safety & Environment Fear of Current or [...] rhonchi Cardiovascular Ra (more content not included)... [facility] 12-29-2023 Evaluation note Encounter Date Diagnosis Assessment Notes Dec, Anemia (ICD-10 - D64.9) [employer] Other 01-03-2024 NoteThis report has been cancelled. [facility]01-03-2024 NoteThis report has been cancelled.[facility]01-03-2024 NoteThis report has been cancelled.[facility]01-03-2024 NoteThis report has been cancelled.[facility]01-03-2024 NoteThis report has been cancelled.[facility]01-03-2024 NoteThis report has been cancelled.[facility]01-03-2024 NoteThis report has been cancelled.[facility]12-27-2023 Evaluation note* Encounter Date Diagnosis Assessment [...] are maintaining regular scheduled appts with their lang path therapist. s/p LAAO procedure, off anticoagulation Oct, Pulmonary [...] I44.1) PM inserted PM checkups every 6months. [employer] Other 11-07-2023 Evaluation note* Encounter Date Diagnosis [...] continue exercise to achieve/maintain a normal BMI. [employer] Other 10-05-2023 Evaluation note* Encounter Date Diagnosis [...] are maintaining regular scheduled appts with their lang path therapist. No bleeding complications Aug, Chronic venous insufficiency [...] (ICD-10 - Z79.899) Check labs: CBC, Dig [employer] Other 06-30-2023 Evaluation note* Encounter Date Diagnosis [...] are maintaining regular scheduled appts with their lang path therapist. No bleeding complications Apr, Chronic venous insufficiency (ICD-10 - I87.2) Avoid salt and elevate lower extremities, support stockings, inspect legs and feet daily for blisters and ulcerations. Apr, Second degree heart block (ICD-10 - I44.1) PM inserted, routine PM checks w/ [facility] Apr, History of prostate cancer (ICD-10 - Z85.46) No s/s recurrence. No active treatment at this time. [employer] Other 05-22-2023 NotePatient is here today to establish care Review of Systems HENT: Positive for ear discharge. Eyes: Positive for vision loss in left eye and vision loss in right eye. Respiratory: Positive for cough. All other systems reviewed and are negative.[facility] 04-17-2023 NoteCardiovascular Medicine [facility] SUBJECTIVE Chief Complaint Patient presents with [...] puffier lately. -Will ob (more content not included)...[facility] 01-20-2023 Evaluation note* Encounter Date Diagnosis [...] are maintaining regular scheduled appts with their lang path therapist. 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 Needs new Is Technician, suggest [facility] here in [place] Dec, History of prostate cancer (ICD-10 - Z85.46) No s/s recurrence [employer] Other [id number] Hospital Discharge instructions Patient Education 09/21/2022 12:37:02 [...] who: Are older than age 65. Are -[place]. Are obese. Have a family history of [...] cells. Follow these instructions at home: Take ewtd-yjp-yzhaqqu and prescription medicines only as told by [...] 11/13/2006 Document Revised: 10/26/2018 Document Reviewed: 07/24/2017 [employer] Patient Education 2020 [employer]. Follow Up Care 03/16/2022 09:37:24 With:KENNETH SHEPARD, MARYBETH Trivedi, URL Address: [address] [place] [address] [phone] When: only if needed [facility] 04-20-2022 Hospital Discharge instructions Patient Education [...] who: Are older than age 65. Are -[place]. Are obese. Have a family history of [...] cells. Follow these instructions at home: Take hwvj-bis-mcbwust and prescription medicines only as told by [...] 11/13/2006 Document Revised: 10/26/2018 Document Reviewed: 07/24/2017 [employer] Patient Education 2020 [employer]. Follow Up Care 01/28/2022 16:02:47 With:MARYBETH STANLEY PA-C, URL Address: [place] [address] Business (1) When:6 months [facility] 09-21-2021 NoteHNO ID: [id number] Author: Jewel Cary III, MD Service: ? Author Type: Physician Type: Progress Notes Filed: 08/17/2021 9:33 AM Note Text: This patient is post op from laparoscopic cholecystectomy. He has had no symptoms. P.E. The wounds are healing well without evidence of infection. I reviewed the pathology report with Samson. Assessment Satisfactory course Plan: Return to office PRN. Jewel Cary III, [facility]09-01-2021 NoteHNO ID: [id number] Author: Jaspal Phipps APRN.[employer] Service: Anesthesiology Author Type: Nurse Metallurgical Analyst Type: Anesthesia Procedure Notes Filed: 07/28/2021 10:50 AM Note Text: ANESTHESIOLOGY PROCEDURE NOTE Airway General Information Procedure Start Time/Medication Administration: 07/28/2021 10:40 AM Patient location during procedure: OR Patient identity confirmed: arm band and patient Staffing Anesthesiologist: Ramiro Esquivel MD [employer]IVER: Jaspal Phipps APRN.[employer]IVER Performed by: [employer] Indications and Patient Condition Preoxygenated: yes Patient [...] SIGNATURE: Jaspal Phipps APRN.CRNA PATIENT NAME: Samson Kelley DATE: July 28, 2021 TIME: 10:48 AM CSN: [id number] Future Appointments Appointment Date:09/21/2022 10:00:00 AM Scheduled Provider:MARYBETH STANLEY PA-C Location:[facility] Appointment Type:URO Office Visit [facility] evaluation noteNo [facility]NoJeff[facility] [employer] Other Evaluation note* Diagnosis Onset Date Resolution Status Chronic venous insufficiency of lower extremity acute CKD (chronic kidney disease) stage 3, GFR 30-59 ml/min acute HFrEF (heart failure with reduced ejection fraction) acute Hypoxia acute Mobitz (type) II atrioventricular block acute Pancytopenia acute Subclinical hypothyroidism a [facility] Work Phone: Hisntpt general Narrative - Reported* Type Description Date [...] GALL[employer]ADDER 11/2029 Hospitalization History see surgical history [employer] Other [facility] general Narrative - Reported* Type Description Date [...] 20 16 Hospitalization History see surgical history [employer] Other Hospital course Narrative No data available for this section [facility] note No data available for this section [facility] Purpose Family History No Family History Records Found Relationship Condition Age at Onset Recorded Date/T jabier father Unknown Not Specified Unknown Advance Directives No Advanced Directives Records Found Advance Directive Response Recorded Date/ Time Advance Directives No January 04, 2024 12:18pm Chief Complaint and Reason for Visit Chief Complaint [facility] Tb Follow-Up [facility] d/c 01/12 Reason for Visit [...] section and content) DATE CREATED AUTHOR 12/17/2018 [facility] DATE CREATED AUTHOR AUTHOR'S ORGANIZ ATION 07/31/2021 [facility] DATE CREATED AUTHOR AUTHOR'S ORGANIZ ATION 07/31/2021 [facility] DATE CREATED AUTHOR AUTHOR'S ORGANIZ ATION 12/24/2021 [facility] DATE CREATED AUTHOR AUTHOR'S ORGANIZ ATION 12/26/2021 [facility] DATE CREATED AUTHOR AUTHOR'S ORGANIZ ATION 09/22/2022 [facility] DATE CREATED AUTHOR AUTHOR'S ORGANIZ ATION 10/05/2022 [facility] DATE CREATED AUTHOR AUTHOR'S ORGANIZ ATION 12/27/2023 [facility] DATE CREATED AUTHOR AUTHOR'S ORGANIZ ATION 02/05/2024 [facility] DATE CREATED AUTHOR AUTHOR'S ORGANIZ ATION 02/17/2024 [facility] Patient Care team informatio n (unrecognized section and content) Team Status: Active Member Role Status Dates Tmio Francis , DO Primary Care Provider Active Team Status: Inactive Member Role Status Dates Timo Francis , DO Attending Provider Active Sta rt: November 22, 2023 End: November 22, 2023 Team Status: Inactive Member Role Status Dates Timo Francis , DO Attending Provider Active Sta rt: December [...] Status: Active Member Role Status Dates Timo Penny , DO Primary Care Provide r, Attending Provider Active Start: January 10, 2024 Team Status: Active Member Role Status Dates Timo Penny , DO Primary Care Provide r, Attending [...] UP4 MONTH FOL LOW UPWellnessLab resultsflu shotankle/foot swellingRefillPAM [facility]ALTH [facility] HHTBHMedication PriceTCMBlood PressuresBP readingsweight concernRepeat Labs Goals [...] BE BASED ON THE PRIMARY CLINICAL RECORDS. [facility] [employer] [facility]. provides no warranty or guarantee of the accuracy or completeness of information in this document.
[2024-02-21 11:26] LABS: Anion Gap 10.6; BUN Creatinine Ratio 28.1; Calcium 9.3 mg/dL (8.5-10.1); Carbon Dioxide 33.9 mmol/L (21.0-32.0); Chloride 99 mmol/L (98-107); Estimated GFR (African America 55 (>=60); Estimated GFR (Non-African Ame 45 (>=60); Glucose 105 mg/dL (74-106); Potassium 4.5 mmol/L (3.5-5.1); Sodium 139 mmol/L (136-145)
== END 2024-02-21 11:07 | disposition home or self-care (01) ==
LOC: LAB 11:06
PROVIDERS: PCP Internal Medicine; Visit Provider Internal Medicine
DX: I50.9 Heart failure, unspecified (principal)
CPT/HCPCS: 36415; 80048

== ENCOUNTER 2024-02-27 07:29 | Outpatient (RCR) | payer MEDICARE, OTHER, SELFPAY | END 2024-03-26 23:59 | disposition home or self-care (01) | LOC: INF 07:29 | PROVIDERS: PCP Internal Medicine; Visit Provider Internal Medicine Hematology & Oncology | DX: D61.818 Other pancytopenia (principal); D64.9 Anemia, unspecified; D69.6 Thrombocytopenia, unspecified | CPT/HCPCS: G0463 ==

== ENCOUNTER 2024-02-28 10:03 | Outpatient (REF) | payer MEDICARE, OTHER, SELFPAY ==
[2024-02-28 12:23] LABS: Anion Gap 13.2; Carbon Dioxide 31.4 mmol/L (21.0-32.0); Chloride 98 mmol/L (98-107); Estimated GFR (African America 45 (>=60); Glucose 136 mg/dL (74-106); Potassium 4.6 mmol/L (3.5-5.1); Sodium 138 mmol/L (136-145)
[2024-02-28 12:24] LABS: BUN Creatinine Ratio 28.9; Calcium 9.4 mg/dL (8.5-10.1); Estimated GFR (Non-African Ame 37 (>=60)
== END 2024-02-28 10:04 | disposition home or self-care (01) ==
LOC: LAB 10:03
PROVIDERS: PCP Internal Medicine; Visit Provider Internal Medicine
DX: I50.9 Heart failure, unspecified (principal)
CPT/HCPCS: 36415; 80048

== ENCOUNTER 2024-03-13 10:57 | Outpatient (REF) | payer MEDICARE, OTHER, SELFPAY ==
[2024-03-13 13:10] LABS: BUN Creatinine Ratio 32.9; Calcium 9.4 mg/dL (8.5-10.1); Carbon Dioxide 29.3 mmol/L (21.0-32.0); Chloride 99 mmol/L (98-107); Estimated GFR (African America 53 (>=60); Estimated GFR (Non-African Ame 43 (>=60); Glucose 119 mg/dL (74-106); Potassium 4.3 mmol/L (3.5-5.1); Sodium 139 mmol/L (136-145)
== END 2024-03-13 10:58 | disposition home or self-care (01) ==
LOC: LAB 10:57
PROVIDERS: PCP Internal Medicine; Visit Provider Nurse Practitioner Family
DX: I10 Essential (primary) hypertension (principal)
CPT/HCPCS: 36415; 80048

== ENCOUNTER 2024-03-26 15:09 | Outpatient (REF) | payer MEDICARE, OTHER, SELFPAY ==
[2024-03-26 15:48] LABS: Basophils Percent Auto 0.4 % (0.2-2.0); Eosinophils Absolute Auto 0.1 10^3/uL (0.0-0.7); Eosinophils Percent Auto 1.8 % (0.9-7.0); Hematocrit 29.4 % (42.0-54.0); Hemoglobin 9.5 g/dL (14.0-18.0); Immature Granulocytes Abs Auto 0.02 10^3/uL (0.00-0.03); Immature Granulocytes Pct Auto 0.4 % (0.0-0.5); Lymphocytes Absolute Auto 0.9 10^3/uL (1.2-3.8); Lymphocytes Percent Auto 18.6 % (20.5-60.0); Mean Corpuscular HGB Conc 32.3 g/dL (29.9-35.2); Mean Corpuscular Hemoglobin 34.2 pg (25.9-34.0); Mean Corpuscular Volume 105.8 fL (80.0-94.0); Mean Platelet Volume 10.7 fL (9.5-13.5); Monocytes Absolute Auto 0.8 10^3/uL (0.3-0.8); Monocytes Percent Auto 18.2 % (1.7-12.0); Neutrophils Absolute Auto 2.8 10^3/uL (1.4-6.5); Neutrophils Percent Auto 60.6 % (43.0-75.0); Platelet Count 133 10^3/uL (150-450); Red Blood Count 2.78 10^6/uL (4.70-6.10); Red Cell Distribution Width 14.6 % (11.0-15.0); White Blood Count 4.6 10^3/uL (4.0-11.0)
[2024-03-26 16:08] LABS: Alanine Aminotransferase 19 U/L (16-63); Albumin Globulin Ratio 0.8; Albumin Level 3.3 g/dL (3.4-5.0); Alkaline Phosphatase 116 U/L (46-116); Anion Gap 9.7; Aspartate Amino Transferase 13 U/L (15-37); BUN Creatinine Ratio 31.3; Bilirubin Total 1.3 mg/dL (0.2-1.0); Calcium 9.3 mg/dL (8.5-10.1); Carbon Dioxide 33.8 mmol/L (21.0-32.0); Chloride 96 mmol/L (98-107); Estimated GFR (African America 53 (>=60); Estimated GFR (Non-African Ame 44 (>=60); Globulin 4.1 g/dL; Glucose 115 mg/dL (74-106); Percent Iron Saturation 26.1 %; Potassium 4.5 mmol/L (3.5-5.1); Sodium 135 mmol/L (136-145); Total Protein 7.4 g/dL (6.4-8.2)
== END 2024-03-26 15:10 | disposition home or self-care (01) ==
LOC: LAB 15:09
PROVIDERS: PCP Internal Medicine; Visit Provider Internal Medicine Hematology & Oncology
DX: D64.9 Anemia, unspecified (principal); D69.6 Thrombocytopenia, unspecified; D61.818 Other pancytopenia
CPT/HCPCS: 36415; 80053; 82728; 83540; 83550; 85025

== ENCOUNTER 2024-04-02 07:31 | Outpatient (RCR) | payer MEDICARE, OTHER, SELFPAY | END 2024-04-26 23:59 | disposition home or self-care (01) | LOC: INF 07:31 | PROVIDERS: PCP Internal Medicine; Visit Provider Internal Medicine Hematology & Oncology | DX: D61.818 Other pancytopenia (principal); D69.6 Thrombocytopenia, unspecified; D64.9 Anemia, unspecified | CPT/HCPCS: G0463 ==

== ENCOUNTER 2024-05-14 07:16 | Outpatient (RCR) | payer MEDICARE, OTHER, SELFPAY ==
[2024-05-14 10:07] LABS: Basophils Percent Auto 0.7 % (0.2-2.0); Eosinophils Absolute Auto 0.1 10^3/uL (0.0-0.7); Eosinophils Percent Auto 2.4 % (0.9-7.0); Hematocrit 32.3 % (42.0-54.0); Hemoglobin 10.5 g/dL (14.0-18.0); Immature Granulocytes Abs Auto 0.08 10^3/uL (0.00-0.03); Immature Granulocytes Pct Auto 1.4 % (0.0-0.5); Lymphocytes Absolute Auto 1.3 10^3/uL (1.2-3.8); Lymphocytes Percent Auto 23.1 % (20.5-60.0); Mean Corpuscular HGB Conc 32.5 g/dL (29.9-35.2); Mean Corpuscular Hemoglobin 33.2 pg (25.9-34.0); Mean Corpuscular Volume 102.2 fL (80.0-94.0); Mean Platelet Volume 10.2 fL (9.5-13.5); Monocytes Percent Auto 17.5 % (1.7-12.0); Neutrophils Absolute Auto 3.1 10^3/uL (1.4-6.5); Neutrophils Percent Auto 54.9 % (43.0-75.0); Platelet Count 128 10^3/uL (150-450); Red Blood Count 3.16 10^6/uL (4.70-6.10); Red Cell Distribution Width 13.5 % (11.0-15.0); Reticulocyte Pct Auto 2.99 % (0.60-3.10); White Blood Count 5.7 10^3/uL (4.0-11.0)
[2024-05-14 10:25] LABS: Alanine Aminotransferase 16 U/L (16-63); Albumin Globulin Ratio 0.7; Albumin Level 3.4 g/dL (3.4-5.0); Alkaline Phosphatase 106 U/L (46-116); Anion Gap 9.8; Aspartate Amino Transferase 11 U/L (15-37); BUN Creatinine Ratio 28.8; Bilirubin Total 1.1 mg/dL (0.2-1.0); Calcium 9.8 mg/dL (8.5-10.1); Carbon Dioxide 33.5 mmol/L (21.0-32.0); Chloride 97 mmol/L (98-107); Estimated GFR (African America 50 (>=60); Estimated GFR (Non-African Ame 41 (>=60); Globulin 4.8 g/dL; Glucose 130 mg/dL (74-106); Lactate Dehydrogenase 189 U/L (85-227); Potassium 4.3 mmol/L (3.5-5.1); Sodium 136 mmol/L (136-145); Total Protein 8.2 g/dL (6.4-8.2)
[2024-05-14 11:01] LABS: Percent Iron Saturation 29.8 %
== END 2024-05-24 10:50 | disposition home or self-care (01) ==
LOC: HEMC 07:16
PROVIDERS: PCP Internal Medicine; Visit Provider Internal Medicine Hematology & Oncology
DX: D61.818 Other pancytopenia (principal); D75.89 Other specified diseases of blood and blood-forming organs; I42.9 Cardiomyopathy, unspecified; Z95.0 Presence of cardiac pacemaker; E87.70 Fluid overload, unspecified; R09.02 Hypoxemia; Z99.81 Dependence on supplemental oxygen
CPT/HCPCS: 36415; 80053; 82728; 83540; 83550; 83615; 85025; 85045; G0463

== ENCOUNTER 2024-06-26 11:58 | Outpatient (OUT) | payer MEDICARE, OTHER, SELFPAY ==
--- OUTSIDE RECORDS SUMMARY | 2024-06-26 12:17 | XMS_ITS | CCD ---
Author Organization [facility] Care Team Providers Care Lease Administration Supervisor Name Role Phone TIMO FRANCIS Primary Care Physician MARYBETH STANLEY Attending Unavailable KENNETH, MARYBETH Trivedi Attending Unavailable KENNETH, MARYBETH Trivedi Attending Unavailable PENNY, DR MARRUFO Primary Care Unavailable NADERETyler, DR MADISON Arriaza Admitting Unavailable NADERER, DR MADISON Arriaza Attending Unavailable ZIEBER, DR MILAGROS Scott Consulting Unavailable NADERER, DR MADISON Arriaza Consulting Unavailable PAY, DR PENNINGTON Consulting Unavailable KVNGJAMES ESCOBAR Consulting Unavailable BACHRALINH BEGUM Consulting Unavailable PENNY, DR MARRUFO Admitting Unavailable [...] WEISS Attending Unavailable NAOMI GRIFFIN II Referring UnavailMarhta Stoner Attending Unavailable Martha Meier Admitting Unavailable Timo Francis Primary Care Unavailable VENECIA FLOWERS Attending Unavailable JUAN LUIS CALVIN Attending Unavailable ROSSI OROSCO Attending Unavailable SAMSON MYLES Referring Unavailable SAMSON MYLES Referring Unavailable MARGARITA HERNANDEZ Attending Unavailable JUAN LUIS CALVIN Attending Unavailable Medications Current Medications Medication Drug [...] Start: 11-22-2023 take 1 capsule by mo 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 DRUG THERAPY] Onset: 07-08-2022 Episodic Other aftercare (1 source) long-term (current) use of aspirin; Translations: [POWERHOUSE MECHANIC CURRENT USE OF ASPIRIN] Onset: 08-16-2022 Episodic [...] 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 Continue medications as is and follow-up as scheduled. Thanks! Patient made aware. Normal [facility] Office Visiton 03-22-2024 Follow-up visit [id number] Samson Kelley 1935 M Date Provider Department Center 03/22/2024 Ximena-ROSSI OROSCO [facility] Jacki [facility] No family history on file Level of Service:30548 [place] OFFICE/OUTPATIENT ESTABLISHED MOD MDM 30 MIN Reason for Visit and Comments: Follow-up [598463] - 1 month Normal [facility] 29on 03-06-2024 29 Addended by: ERNESTINA MACEDO on: 03/06/2024 01:43 PM Modules accepted: Orders [facility] 03-06-2024 36 Spoke with patient and advised him of Bumex increase per oCnsuelo Calvin CNP. He verbalized understanding. He asked that I email him order for BMP to be done in 1 week by home health. He verbalized understanding. Order emailed to him. [facility] 36 Can we have him increase his bumex to 2mg daily x3 days then alternate every other day 1mg and 2mg. Follow-up BMP in 1 week. Thanks! [facility] Orders Onlyon 03-06-2024 Orders Only [id number] Samson Kelley 1935 M [facility] Provider Department Center 03/06/2024 928-ERNESTINA MACEDO WINNIE Echeverria [facility] No family history on file [facility] 3603-05-2024 36 Patient called to make you aware that he gained 3# from yesterday to today. Also is a little more SOB since cutting Bumex back. Any recommendations? [facility] 3602-29-2024 36 His kidney function has mildly worsened. Please have him cut his bumex in half to 1mg daily. Let us know if he develops worsening SOB, leg swelling, weight gain. Thanks! [facility] 3602-28-2024 36 Today patient states his weight is steady at 195 feet a little puffy but better, breathing better on O2. Please call for lab results from today. Thanks! [facility] Telephoneon 02-28-2024 Telephone [id number] aSmson Kelley 1935 M Date Provider Department Center 02/28/2024 JUAN LUIS RETANA. No family history on file [facility] Office Visiton 02-22-2024 Follow-up visit [id number] Samson Kelley 1935 M Date Provider Department Center 02/22/2024 JUAN LUIS RETANA No family history on file Level of Service:07247 [place] OFFICE/OUTPATIENT ESTABLISHED MOD MDM 30 MIN Reason for Visit and Comments: Hospital Follow-up [832] Congestive Heart Failure [127] Normal [facility] CT guided bone marrow bx/asp iron 02-07-2024 CT guided bone marrow bx/aspir [facility] [place] [address] [place], [place] [id number] CT Scan Report Signed Patient: Samson Kelley MR#: [id number] : 1935 Acct:[id number] Age/Sex: 88 / M ADM Date: 02/07/24 Loc: CT Room: Type: [facility] Attending Dr: Martha Meier MD Copies to: Martha Meier MD Ordering Provider: aMrtha Meier MD Date of Service: 02/07/24 CT/CT [...] Zach Ontiveros M.D.02/07/2024 2:21 PM Dictation Location: [place] [address] Transcribed By: CHASE 02/07/24 1421 Dictated By: Zach Ontiveros II, MD 02/07/24 1418 Signed By: 02/07/24 1421 Normal [facility] Coagulation Profileon 2023 aPTT Coag (Bld) [Time] 41.4 s High 25.1-36.5 [facility] Comment on above: Result Comment: A he matocrit value greater than 55% may lead to inaccurate results in coagulation testing. Patients having hematocrit values >55% require a special collection tube for coagulation studies. Please contact the laboratory at [phone] for redraw instructions. PERFORMED BY: [place] [address] PATHOLOGIST DOUGHNUT GLAZIER DILIA SUAZO M.D. Performed By: #### C BC, PP #### [address] INR Coag (PPP) [Relative time] 1.2 {INR} Normal [facility] Comment on above: Result Comment: INR [...] Performed By: #### C BC, PP #### [address] PT Coag (PPP) [Time] 13.2 s High 9.0-12.9 [place] Comment on above: Result Comment: A he matocrit value greater than 55% may lead to inaccurate results in coagulation testing. Patients having hematocrit values >55% require a special collection tube for coagulation studies. Please contact the laboratory at [phone] for redraw instructions. Performed By: #### C BC, PP #### [address] Complete Blood Count Auto Di ffon 02-07-2024 Basophils (Bld) [#/Vol] 0.0 10*3/uL Normal 0.0-0.2 [facility] Comment on above: Result Comment: PERF ORMED BY: [place] [address] PATHOLOGIST DOUGHNUT GLAZIER DILIA SUAZO M.D. Performed By: #### C BC, PP #### [address] Basophils/100 WBC (Bld) 0.9 % Normal . [facility] Comment on above: Performed By: #### C BC, PP #### [address] Eosinophils (Bld) [#/Vol] 0.1 10*3/uL Normal 0.0-0.45 [facility] Comment on above: Performed By: #### C BC, PP #### [address] Eosinophils/100 WBC (Bld) 1.8 % Normal . [facility] Comment on above: Performed By: #### C BC, PP #### [address] Erythrocyte distribution width (RBC) [Ratio] 16.5 % High 12.0-14.8 [facility] Comment on above: Performed By: #### C BC, PP #### [address] Hematocrit (Bld) [Volume fraction] 31.0 % Low 38.8-50.0 [facility] Comment on above: Performed By: #### C BC, PP #### [address] Hemoglobin (Bld) [Mass/Vol] 10.3 g/dL Low 13.0-17.0 [facility] Comment on above: Performed By: #### C BC, PP #### [address] Lymphocytes (Bld) [#/Vol] 0.6 10*3/uL Low 1.00-4.8 [facility] Comment on above: Performed By: #### C BC, PP #### [place] [address] [place] Lymphocytes/100 WBC (Bld) 13.7 % Normal . [facility] Comment on above: Performed By: #### C BC, PP #### [facility] [address] MCH (RBC) [Entitic mass] 34.5 pg Normal 27.5-35.2 [facility] Comment on above: Performed By: #### C BC, PP #### [facility] [address] MCV (RBC) [Entitic vol] 103.8 fL High 83.5-101 [facility] Comment on above: Performed By: #### C BC, PP #### [address] Mean Corpuscular HGB Conc 33.2 g/dL Normal 32.5-35.6 [facility] Comment on above: Performed By: #### C BC, PP #### [address] Monocytes (Bld) [#/Vol] 0.6 10*3/uL Normal 0.0-0.8 [facility] Comment on above: Performed By: #### C BC, PP #### [address] Monocytes/100 WBC (Bld) 14.1 % Normal . [facility] Comment on above: Performed By: #### C BC, PP #### [address] Neutrophils (Bld) [#/Vol] 3.1 10*3/uL Normal 1.8-7.7 [facility] Comment on above: Performed By: #### C BC, PP #### [address] Neutrophils/100 WBC (Bld) 69.5 % Normal . [facility] Comment on above: Performed By: #### C BC, PP #### [address] NRBC% 0.3 /100{WBC} Normal 0-0.5 [facility] Comment on above: Performed By: #### C BC, PP #### [facility] [address] Platelet mean volume (Bld) [Entitic vol] 9.2 fL Normal 6.6-10.1 [facility] Comment on above: Performed By: #### C BC, PP #### [facility] [address] Platelets (Bld) [#/Vol] 84 10*3/uL Low 150-450 [facility] Comment on above: Performed By: #### C BC, PP #### [facility] [address] RBC (Bld) [#/Vol] 2.99 10*6/uL Low 3.90-5.60 [facility] Comment on above: Performed By: #### C BC, PP #### [address] WBC (Bld) [#/Vol] 4.4 10*3/uL Normal 4.1-10.5 [facility] Comment on above: Performed By: #### C BC, PP #### [address] Sam 02-07-2024 L Specimen: [id number] Received: 02/07/24 Status: PRIYANKA Saravia Num: [id number] Spec Type: Bone Marro Subm Dr: Zach Ontiveros II, MD Tissues: A Bone Marrow Aspirate (Clot) (LT ILIAC CREST) B Bone Marrow Biopsy/Core (LT ILIAC CREST) Procedures: Peripheral Smr, Iron/3, HE/4, Gross/Micro L4/2, Bm Smear/2, CD138, CD20, CD3, Decalcification, Bone Marrow TP, GIEMSA STN/6 Age/ Patient Sex Location Account Attending Physician Samson Kelley 88/M CT [id number] Martha Meier MD SPEC NUM: [id number] RECD: 02/07/24 STATUS: PRIYANKA SARAVIA NUM: [id number] AURA: 03/13/24-[address]: Zach Ontiveros II, MD ENTERED: 02/07/24-1154 [facility] DR: SPEC TYPE: Bone Marro DEPT: BM ORDERED: Peripheral Smr, Iron/3, HE/4, Gross/Micro L4/2, Bm Smear/2, CD138, CD20, CD3, Decalcification, Bone Marrow TP, GIEMSA STN/6 ORDERED: Peripheral Smr, Iron/3, HE/4, Gross/Micro L4/2, Bm Smear/2, CD138, CD20, CD3, USS/14, Decalcification, Bone Marrow TP, GIEMSA STN/6 Supplemental Report Addendum 2 Entered: 02/16/24 This Case Was Sent To [facility] For additional testing. Results are as follows:? 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 Please Refer To The attached [employer] Report For Diagnostic Details Addendum Signed (signature on file) Naz Spence MD 02/16/241215 Addendum 1 Entered: 02/15/24 FISH testing results are negative. Please refer to the FISH report for details. Specimen: [id number] Received: 02/07/24 Status: SOUFilemon Req Num: [id number] Spec Type: Bone [facility] Dr: Zach Ontiveros II, MD Tissues: A Bone Marrow Aspirate (Clot) (LT ILIAC CREST) B Bone Marrow Biopsy/Core (LT ILIAC CREST) Procedures: Peripheral Smr, Iron/3, HE/4, Gross/Micro L4/2, Bm Smear/2, CD138, CD20, CD3, Decalcification, Bone Marrow TP, GIEMSA STN/6 Patient: WarrenSamson Farooq [id number] (Continued) Specimen: [id number] Received: 02/07/24 (Continued) Supplemental Report (Continued) Signed (signature on file) Lalita Lipscomb MD 02/09/24 1529 Specimen: [id number] Received: 02/07/24 Status: PRIYANKA Saravia Num: [id number] Spec Type: Bone Marro Stephanie Dr: Zach Ontiveros II, MD Tissues: A Bone Marrow Aspirate (Clot) (LT ILIAC CREST) B Bone Marrow Biopsy/Core (LT ILIAC CREST) Procedures: Peripheral Smr, Iron/3, HE/4, Gross/Micro L4/2, Bm Smear/2, CD138, CD20, CD3, Decalcification, Bone Marrow TP, GIEMSA STN/6 Patient: Samson Kelley Farooq [id number] (Continued) Specimen: [id number] Received: 02/07/24-1153 (Continued) Supplemental Report (Continued) Addendum Signed (signature on file) Naz Spence MD 02/15/24 5686 Pathological Diagnosis Bone marrow, core biopsy, clot [...] hypercellular due to (more content not included)... [facility] 36on 02-01-2024 36 Regarding BMP from 01/26/2024: Venecia Flowers, JUAN FRANCISCO Macedo, CARLIE Spencer, So Samson needs to see [...] see Dr. Orosco on 02/12/2024 at 10:15am. Normal [facility] Orders Onlyon 01-31-2024 Orders Only [id number] Samson Kelley 1935 M Date Provider Department Center 01/31/2024 Nay-VENECIA FLOWERS [facility] No family history on file [facility] 37on 01-26-2024 37 May take [...] pillows than normal or in recliner. Normal [facility] Office Visiton 01-26-2024 Follow-up visit [id number] Samson Kelley 1935 M Date Provider Department Center 01/26/2024 VENECIA FRANKLIN [facility] No family history on file Level of Service:61060 [place] OFFICE/OUTPATIENT ESTABLISHED MOD MDM 30 MIN Normal [facility] Basophils Auto (Bld) [#/Vol] on 01-12-2024 Basophils (Bld) [#/Vol] 0.0 10 3/uL 0.0-0.1 [facility] Basophils/100 WBC Auto (Bld) on 01-12-2024 Basophils/100 WBC (Bld) 0.2 % 0.2-2.0 [facility] Eosinophils/100 WBC Auto (Bl d)on 01-12-2024 Eosinophils/100 WBC (Bld) 1.2 % 0.9-7.0 [facility] Erythrocyte distribution wid th Auto (RBC) [Ratio]on 01-12-2024 Erythrocyte distribution width (RBC) [Ratio] 15.9 % 11.0-15.0 [facility] Estimated glomerular filtrat ion rate (GFR) non- Americanon 01-12-2024 GFR/1.73 sq M.predicted among non-blacks MDRD (S/P/Bld) [Vol rate/Area] 44 mL/min/{1.73_m2} >=60 [facility] Globulin Calc (S) [Mass/Vol] on 01-12-2024 Globulin (S) [Mass/Vol] 4.3 g/dL [facility] Hematocrit Auto (Bld) [Volum e fraction]on 01-12-2024 Hematocrit (Bld) [Volume fraction] 30.0 % 42.0-54.0 [facility] Hemoglobin [Mass/volume] in Bloodon 01-12-2024 Hemoglobin (Bld) [Mass/Vol] 9.5 g/dL 14.0-18.0 [facility] Laboratory - Chemistry and C hemistry - challengeon 01-12-2024 Albumin [Mass/Vol] 2.9 g/dL 3.4-5.0 [facility] ALP [Catalytic activity/Vol] 93 U/L 46-116 [facility] ALT [Catalytic activity/Vol] 17 U/L 16-63 [facility] AST [Catalytic activity/Vol] 11 U/L 15-37 [facility] Bilirubin [Mass/Vol] 1.9 mg/dL 0.2-1.0 [place] Calcium [Mass/Vol] 9.0 mg/dL 8.5-10.1 [facility] Chloride [Moles/Vol] 106 mmol/L 98-107 [place] CO2 [Moles/Vol] 28.1 mmol/L 21.0-32.0 [facility] Creatinine [Mass/Vol] 1.49 mg/dL 0.70-1.30 [facility] GFR/1.73 sq M.predicted MDRD (S/P/Bld) [Vol rate/Area] 54 mL/min/{1.73_m2} >=60 [facility] Glucose [Mass/Vol] 94 mg/dL 74-106 [facility] Natriuretic peptide B (Bld) [Mass/Vol] 4324.0 pg/mL <=1800.0 [facility] Comment on above: RESULTS CALLED TO SANJUANITA CORNELL RN @BY Radha Corea at 0645 Potassium [Moles/Vol] 4.2 mmol/L 3.5-5.1 [facility] Protein [Mass/Vol] 7.2 g/dL 6.4-8.2 [facility] Sodium [Moles/Vol] 141 mmol/L 136-145 [facility] Urea nitrogen [Mass/Vol] 52.0 mg/dL 7.0-18.0 [facility] Urea nitrogen/Creatinine [Mass ratio] 34.9 mg/mg [facility] Laboratory - Hematology and Cell countson 01-12-2024 Immature granulocytes/100 WBC (Bld) 0.2 % 0.0-0.5 [facility] Leukocytes [#/volume] correc ayan for nucleated erythrocytes in Blood by Automated counon 01-12-2024 WBC corrected for nucl RBC Auto (Bld) [#/Vol] 4.3 10 3/uL 4.0-11.0 [facility] Lymphocytes Auto (Bld) [#/Vo l]on 01-12-2024 Lymphocytes (Bld) [#/Vol] 0.9 10 3/uL 1.2-3.8 [facility] Lymphocytes/100 WBC Auto (Bl d)on 01-12-2024 Lymphocytes/100 WBC (Bld) 19.9 % 20.5-60.0 [facility] MCH Auto (RBC) [Entitic mass ]on 01-12-2024 MCH (RBC) [Entitic mass] 34.5 pg 25.9-34.0 [facility] MCHC Auto (RBC) [Mass/Vol]on 01-12-2024 MCHC (RBC) [Mass/Vol] 31.7 g/dL 29.9-35.2 [facility] MCV Auto (RBC) [Entitic vol] on 01-12-2024 MCV (RBC) [Entitic vol] 109.1 fL 80.0-94.0 [facility] Monocytes Auto (Bld) [#/Vol] on 01-12-2024 Monocytes (Bld) [#/Vol] 0.7 10 3/uL 0.3-0.8 [facility] Monocytes/100 WBC Auto (Bld) on 01-12-2024 Monocytes/100 WBC (Bld) 16.9 % 1.7-12.0 [facility] Neutrophils Auto (Bld) [#/Vo l]on 01-12-2024 Neutrophils (Bld) [#/Vol] 2.7 10 3/uL 1.4-6.5 [facility] Neutrophils/100 WBC Auto (Bl d)on 01-12-2024 Neutrophils/100 WBC (Bld) 61.6 % 43.0-75.0 [facility] No Panel Informationon 01-12 Digoxin Level 1.4 ng/mL 0.9-2.0 [facility] Eosinophils # (Auto) 0.1 10 3/uL 0.0-0.7 [facility] Immature Granulocyte # (Auto) 0.01 10 3/uL 0.00-0.03 [facility] Platelet mean volume Auto (B ld) [Entitic vol]on 01-12-2024 Platelet mean volume (Bld) [Entitic vol] 11.5 fL 9.5-13.5 [facility] Platelets Auto (Bld) [#/Vol] on 01-12-2024 Platelets (Bld) [#/Vol] 69 10 3/uL 150-450 [facility] RBC Auto (Bld) [#/Vol]on RBC (Bld) [#/Vol] 2.75 10 6/uL 4.70-6.10 [facility] Serum or plasma albumin/glob ulin mass ratioon 01-12-2024 Albumin/Globulin [Mass ratio] 0.7 {ratio} [facility] Serum or plasma anion gap de terminationon 01-12-2024 Anion gap [Moles/Vol] 11.1 mmol/L [facility] Basophils Auto (Bld) [#/Vol] on 01-11-2024 Basophils (Bld) [#/Vol] 0.0 10 3/uL 0.0-0.1 [facility] Basophils/100 WBC Auto (Bld) on 01-11-2024 Basophils/100 WBC (Bld) 0.4 % 0.2-2.0 [facility] Eosinophils/100 WBC Auto (Bl d)on 01-11-2024 Eosinophils/100 WBC (Bld) 0.8 % 0.9-7.0 [facility] Erythrocyte distribution wid th Auto (RBC) [Ratio]on 01-11-2024 Erythrocyte distribution width (RBC) [Ratio] 16.2 % 11.0-15.0 [facility] Estimated glomerular filtrat ion rate (GFR) non- Americanon 01-11-2024 GFR/1.73 sq M.predicted among non-blacks MDRD (S/P/Bld) [Vol rate/Area] 40 mL/min/{1.73_m2} >=60 [facility] Globulin Calc (S) [Mass/Vol] on 01-11-2024 Globulin (S) [Mass/Vol] 4.7 g/dL [facility] Hematocrit Auto (Bld) [Volum e fraction]on 01-11-2024 Hematocrit (Bld) [Volume fraction] 32.4 % 42.0-54.0 [facility] Hemoglobin [Mass/volume] in Bloodon 01-11-2024 Hemoglobin (Bld) [Mass/Vol] 10.0 g/dL 14.0-18.0 [facility] Laboratory - Chemistry and C hemistry - challengeon 01-11-2024 Albumin [Mass/Vol] 3.0 g/dL 3.4-5.0 [facility] ALP [Catalytic activity/Vol] 95 U/L 46-116 [facility] ALT [Catalytic activity/Vol] 20 U/L 16-63 [facility] AST [Catalytic activity/Vol] 13 U/L 15-37 [facility] Bilirubin [Mass/Vol] 1.9 mg/dL 0.2-1.0 [place] Calcium [Mass/Vol] 9.0 mg/dL 8.5-10.1 [facility] Chloride [Moles/Vol] 103 mmol/L 98-107 [place] CO2 [Moles/Vol] 27.5 mmol/L 21.0-32.0 [facility] Creatinine [Mass/Vol] 1.64 mg/dL 0.70-1.30 [facility] GFR/1.73 sq M.predicted MDRD (S/P/Bld) [Vol rate/Area] 48 mL/min/{1.73_m2} >=60 [facility] Glucose [Mass/Vol] 90 mg/dL 74-106 [facility] Natriuretic peptide B (Bld) [Mass/Vol] 3351.0 pg/mL <=1800.0 [facility] Comment on above: RESULTS CALLED TO PATY PATTON RN @BY Radha Corea at 0640 Potassium [Moles/Vol] 4.2 mmol/L 3.5-5.1 [facility] Protein [Mass/Vol] 7.7 g/dL 6.4-8.2 [facility] Sodium [Moles/Vol] 141 mmol/L 136-145 [facility] Urea nitrogen [Mass/Vol] 54.0 mg/dL 7.0-18.0 [facility] Urea nitrogen/Creatinine [Mass ratio] 32.9 mg/mg [facility] Laboratory - Hematology and Cell countson 01-11-2024 Immature granulocytes/100 WBC (Bld) 0.2 % 0.0-0.5 [facility] Leukocytes [#/volume] correc ayan for nucleated erythrocytes in Blood by Automated counon 01-11-2024 WBC corrected for nucl RBC Auto (Bld) [#/Vol] 4.8 10 3/uL 4.0-11.0 [facility] Lymphocytes Auto (Bld) [#/Vo l]on 01-11-2024 Lymphocytes (Bld) [#/Vol] 0.9 10 3/uL 1.2-3.8 [facility] Lymphocytes/100 WBC Auto (Bl d)on 01-11-2024 Lymphocytes/100 WBC (Bld) 18.6 % 20.5-60.0 [facility] MCH Auto (RBC) [Entitic mass ]on 01-11-2024 MCH (RBC) [Entitic mass] 34.0 pg 25.9-34.0 [facility] MCHC Auto (RBC) [Mass/Vol]on 01-11-2024 MCHC (RBC) [Mass/Vol] 30.9 g/dL 29.9-35.2 [facility] MCV Auto (RBC) [Entitic vol] on 01-11-2024 MCV (RBC) [Entitic vol] 110.2 fL 80.0-94.0 [facility] Monocytes Auto (Bld) [#/Vol] on 01-11-2024 Monocytes (Bld) [#/Vol] 0.7 10 3/uL 0.3-0.8 [facility] Monocytes/100 WBC Auto (Bld) on 01-11-2024 Monocytes/100 WBC (Bld) 14.9 % 1.7-12.0 [facility] Neutrophils Auto (Bld) [#/Vo l]on 01-11-2024 Neutrophils (Bld) [#/Vol] 3.1 10 3/uL 1.4-6.5 [facility] Neutrophils/100 WBC Auto (Bl d)on 01-11-2024 Neutrophils/100 WBC (Bld) 65.1 % 43.0-75.0 [facility] No Panel Informationon 01-11 Digoxin Level 1.5 ng/mL 0.9-2.0 [facility] Eosinophils # (Auto) 0.0 10 3/uL 0.0-0.7 [facility] Immature Granulocyte # (Auto) 0.01 10 3/uL 0.00-0.03 [facility] Platelet mean volume Auto (B ld) [Entitic vol]on 01-11-2024 Platelet mean volume (Bld) [Entitic vol] 11.2 fL 9.5-13.5 [facility] Platelets Auto (Bld) [#/Vol] on 01-11-2024 Platelets (Bld) [#/Vol] 71 10 3/uL 150-450 [facility] RBC Auto (Bld) [#/Vol]on RBC (Bld) [#/Vol] 2.94 10 6/uL 4.70-6.10 [facility] Serum or plasma albumin/glob ulin mass ratioon 01-11-2024 Albumin/Globulin [Mass ratio] 0.6 {ratio} [facility] Serum or plasma anion gap de terminationon 01-11-2024 Anion gap [Moles/Vol] 14.7 mmol/L [facility] Basophils Auto (Bld) [#/Vol] on 01-10-2024 Basophils (Bld) [#/Vol] 0.0 10 3/uL 0.0-0.1 [facility] Basophils/100 WBC Auto (Bld) on 01-10-2024 Basophils/100 WBC (Bld) 0.3 % 0.2-2.0 [facility] Eosinophils/100 WBC Auto (Bl d)on 01-10-2024 Eosinophils/100 WBC (Bld) 1.3 % 0.9-7.0 [facility] Erythrocyte distribution wid th Auto (RBC) [Ratio]on 01-10-2024 Erythrocyte distribution width (RBC) [Ratio] 16.1 % 11.0-15.0 [facility] Estimated glomerular filtrat ion rate (GFR) non- Americanon 01-10-2024 GFR/1.73 sq M.predicted among non-blacks MDRD (S/P/Bld) [Vol rate/Area] 39 mL/min/{1.73_m2} >=60 [facility] [facility] Globulin Calc (S) [Mass/Vol] on 01-10-2024 Globulin (S) [Mass/Vol] 4.0 g/dL [facility] Hematocrit Auto (Bld) [Volum e fraction]on 01-10-2024 Hematocrit (Bld) [Volume fraction] 30.6 % 42.0-54.0 [facility] Hemoglobin [Mass/volume] in Bloodon 01-10-2024 Hemoglobin (Bld) [Mass/Vol] 9.6 g/dL 14.0-18.0 [facility] Laboratory - Chemistry and C hemistry - challengeon 01-10-2024 Albumin [Mass/Vol] 2.8 g/dL 3.4-5.0 [facility] ALP [Catalytic activity/Vol] 90 U/L 46-116 [facility] ALT [Catalytic activity/Vol] 20 U/L 16-63 [facility] AST [Catalytic activity/Vol] 12 U/L 15-37 [facility] Bilirubin [Mass/Vol] 1.6 mg/dL 0.2-1.0 [place] Calcium [Mass/Vol] 8.9 mg/dL 8.5-10.1 [facility] Chloride [Moles/Vol] 105 mmol/L 98-107 [place] CO2 [Moles/Vol] 27.1 mmol/L 21.0-32.0 [facility] Creatinine [Mass/Vol] 1.65 mg/dL 0.70-1.30 [facility] GFR/1.73 sq M.predicted MDRD (S/P/Bld) [Vol rate/Area] 48 mL/min/{1.73_m2} >=60 [facility] Glucose [Mass/Vol] 91 mg/dL 74-106 [facility] Natriuretic peptide B (Bld) [Mass/Vol] 2269.0 pg/mL <=1800.0 [facility] Comment on above: RESULTS CALLED TO [Aristeo PERALTA/DORIAN]@BY Adeline Sam 0631 Potassium [Moles/Vol] 4.9 mmol/L 3.5-5.1 [facility] Protein [Mass/Vol] 6.8 g/dL 6.4-8.2 [facility] Sodium [Moles/Vol] 140 mmol/L 136-145 [facility] T4 [Mass/Vol] 5.20 ug/dL 4.50-12.10 [facility] Urea nitrogen [Mass/Vol] 63.0 mg/dL 7.0-18.0 [facility] Urea nitrogen/Creatinine [Mass ratio] 38.2 mg/mg [facility] Laboratory - Hematology and Cell countson 01-10-2024 Immature granulocytes/100 WBC (Bld) 0.3 % 0.0-0.5 [facility] Leukocytes [#/volume] correc ayan for nucleated erythrocytes in Blood by Automated counon 01-10-2024 WBC corrected for nucl RBC Auto (Bld) [#/Vol] 3.9 10 3/uL 4.0-11.0 [facility] Lymphocytes Auto (Bld) [#/Vo l]on 01-10-2024 Lymphocytes (Bld) [#/Vol] 0.9 10 3/uL 1.2-3.8 [facility] Lymphocytes/100 WBC Auto (Bl d)on 01-10-2024 Lymphocytes/100 WBC (Bld) 21.8 % 20.5-60.0 [facility] MCH Auto (RBC) [Entitic mass ]on 01-10-2024 MCH (RBC) [Entitic mass] 34.7 pg 25.9-34.0 [facility] MCHC Auto (RBC) [Mass/Vol]on 01-10-2024 MCHC (RBC) [Mass/Vol] 31.4 g/dL 29.9-35.2 [facility] MCV Auto (RBC) [Entitic vol] on 01-10-2024 MCV (RBC) [Entitic vol] 110.5 fL 80.0-94.0 [facility] Monocytes Auto (Bld) [#/Vol] on 01-10-2024 Monocytes (Bld) [#/Vol] 0.6 10 3/uL 0.3-0.8 [facility] Monocytes/100 WBC Auto (Bld) on 01-10-2024 Monocytes/100 WBC (Bld) 15.4 % 1.7-12.0 [facility] Neutrophils Auto (Bld) [#/Vo l]on 01-10-2024 Neutrophils (Bld) [#/Vol] 2.4 10 3/uL 1.4-6.5 [facility] Neutrophils/100 WBC Auto (Bl d)on 01-10-2024 Neutrophils/100 WBC (Bld) 60.9 % 43.0-75.0 [facility] No Panel Informationon 01-10 Digoxin Level 1.6 ng/mL 0.9-2.0 [facility] Eosinophils # (Auto) 0.1 10 3/uL 0.0-0.7 [facility] Free Triiodothyronine 1.89 pg/mL 2.18-3.98 [facility] Immature Granulocyte # (Auto) 0.01 10 3/uL 0.00-0.03 [facility] Platelet mean volume Auto (B ld) [Entitic vol]on 01-10-2024 Platelet mean volume (Bld) [Entitic vol] 11.8 fL 9.5-13.5 [facility] Platelets Auto (Bld) [#/Vol] on 01-10-2024 Platelets (Bld) [#/Vol] 66 10 3/uL 150-450 [facility] RBC Auto (Bld) [#/Vol]on RBC (Bld) [#/Vol] 2.77 10 6/uL 4.70-6.10 [facility] Serum or plasma albumin/glob ulin mass ratioon 01-10-2024 Albumin/Globulin [Mass ratio] 0.7 {ratio} [facility] Serum or plasma anion gap de terminationon 01-10-2024 Anion gap [Moles/Vol] 12.8 mmol/L [facility] Basophils Auto (Bld) [#/Vol] on 01-09-2024 Basophils (Bld) [#/Vol] 0.0 10 3/uL 0.0-0.1 [facility] Basophils/100 WBC Auto (Bld) on 01-09-2024 Basophils/100 WBC (Bld) 0.3 % 0.2-2.0 [facility] Eosinophils/100 WBC Auto (Bl d)on 01-09-2024 Eosinophils/100 WBC (Bld) 1.5 % 0.9-7.0 [facility] Erythrocyte distribution wid th Auto (RBC) [Ratio]on 01-09-2024 Erythrocyte distribution width (RBC) [Ratio] 16.1 % 11.0-15.0 [facility] Estimated glomerular filtrat ion rate (GFR) non- Americanon 01-09-2024 GFR/1.73 sq M.predicted among non-blacks MDRD (S/P/Bld) [Vol rate/Area] 39 mL/min/{1.73_m2} >=60 [facility] Globulin Calc (S) [Mass/Vol] on 01-09-2024 Globulin (S) [Mass/Vol] 3.9 g/dL [facility] Hematocrit Auto (Bld) [Volum e fraction]on 01-09-2024 Hematocrit (Bld) [Volume fraction] 28.9 % 42.0-54.0 [facility] Hemoglobin [Mass/volume] in Bloodon 01-09-2024 Hemoglobin (Bld) [Mass/Vol] 9.0 g/dL 14.0-18.0 [facility] Laboratory - Chemistry and C hemistry - challengeon 01-09-2024 Albumin [Mass/Vol] 2.8 g/dL 3.4-5.0 [facility] ALP [Catalytic activity/Vol] 82 U/L 46-116 [facility] ALT [Catalytic activity/Vol] 20 U/L 16-63 [facility] AST [Catalytic activity/Vol] 12 U/L 15-37 [facility] Bilirubin [Mass/Vol] 1.3 mg/dL 0.2-1.0 [place] Calcium [Mass/Vol] 8.7 mg/dL 8.5-10.1 [facility] Chloride [Moles/Vol] 104 mmol/L 98-107 [place] CO2 [Moles/Vol] 28.1 mmol/L 21.0-32.0 [facility] Creatinine [Mass/Vol] 1.66 mg/dL 0.70-1.30 [facility] GFR/1.73 sq M.predicted MDRD (S/P/Bld) [Vol rate/Area] 48 mL/min/{1.73_m2} >=60 [facility] Glucose [Mass/Vol] 76 mg/dL 74-106 [facility] Natriuretic peptide B (Bld) [Mass/Vol] 2379.0 pg/mL <=1800.0 [facility] Comment on above: RESULTS CALLED TO SANJUANITA CANALES/RN@BY Adeline Sam 0645 Potassium [Moles/Vol] 4.7 mmol/L 3.5-5.1 [facility] Protein [Mass/Vol] 6.7 g/dL 6.4-8.2 [facility] Sodium [Moles/Vol] 139 mmol/L 136-145 [facility] Urea nitrogen [Mass/Vol] 69.0 mg/dL 7.0-18.0 [facility] Urea nitrogen/Creatinine [Mass ratio] 41.6 mg/mg [facility] Laboratory - Hematology and Cell countson 01-09-2024 Immature granulocytes/100 WBC (Bld) 0.3 % 0.0-0.5 [facility] Leukocytes [#/volume] correc ayan for nucleated erythrocytes in Blood by Automated counon 01-09-2024 WBC corrected for nucl RBC Auto (Bld) [#/Vol] 3.3 10 3/uL 4.0-11.0 [facility] Lymphocytes Auto (Bld) [#/Vo l]on 01-09-2024 Lymphocytes (Bld) [#/Vol] 0.7 10 3/uL 1.2-3.8 [facility] Lymphocytes/100 WBC Auto (Bl d)on 01-09-2024 Lymphocytes/100 WBC (Bld) 21.6 % 20.5-60.0 [facility] MCH Auto (RBC) [Entitic mass ]on 01-09-2024 MCH (RBC) [Entitic mass] 34.1 pg 25.9-34.0 [facility] MCHC Auto (RBC) [Mass/Vol]on 01-09-2024 MCHC (RBC) [Mass/Vol] 31.1 g/dL 29.9-35.2 [facility] MCV Auto (RBC) [Entitic vol] on 01-09-2024 MCV (RBC) [Entitic vol] 109.5 fL 80.0-94.0 [facility] Monocytes Auto (Bld) [#/Vol] on 01-09-2024 Monocytes (Bld) [#/Vol] 0.6 10 3/uL 0.3-0.8 [facility] Monocytes/100 WBC Auto (Bld) on 01-09-2024 Monocytes/100 WBC (Bld) 18.3 % 1.7-12.0 [facility] Neutrophils Auto (Bld) [#/Vo l]on 01-09-2024 Neutrophils (Bld) [#/Vol] 1.9 10 3/uL 1.4-6.5 [facility] Neutrophils/100 WBC Auto (Bl d)on 01-09-2024 Neutrophils/100 WBC (Bld) 58.0 % 43.0-75.0 [facility] No Panel Informationon 01-09 Eosinophils # (Auto) 0.1 10 3/uL 0.0-0.7 [facility] Immature Granulocyte # (Auto) 0.01 10 3/uL 0.00-0.03 [facility] Platelet mean volume Auto (B ld) [Entitic vol]on 01-09-2024 Platelet mean volume (Bld) [Entitic vol] 12.0 fL 9.5-13.5 [facility] Platelets Auto (Bld) [#/Vol] on 01-09-2024 Platelets (Bld) [#/Vol] 76 10 3/uL 150-450 [facility] RBC Auto (Bld) [#/Vol]on RBC (Bld) [#/Vol] 2.64 10 6/uL 4.70-6.10 [facility] Serum or plasma albumin/glob ulin mass ratioon 01-09-2024 Albumin/Globulin [Mass ratio] 0.7 {ratio} [facility] Serum or plasma anion gap de terminationon 01-09-2024 Anion gap [Moles/Vol] 11.6 mmol/L [facility] - Chemistry and C hemistry - challengeon 01-08-2024 Free T4 [Mass/Vol] 0.97 ng/dL 0.76-1.46 [facility] TSH Qn 17.442 m[IU]/L 0.358-3.740 [facility] Laboratory - Microbiology an d Antimicrobial susceptibilityon 01-08-2024 S. agalactiae Org specific cx Ql (Vag fld) Not detected NOT DETECTE [facility] No Panel Informationon 01-08 Troponin I High Sensitivity 40.0 pg/mL 4.0-76.1 [facility] Comment on above: CUT-OFF POINTS HAVE [...] kaycee cmplx PCR Not detected NOT DETECTE [facility] Bacteroides fragilis (PCR) Not detected NOT DETECTE [facility] Blood Culture Source Blood [place] Brittany albicans (PCR) Not detected NOT DETECTE [facility] Brittany auris (PCR) Not detected NOT DETECTE [facility] Brittany glabrata (PCR) Not detected NOT DETECTE [facility] Brittany krusei (PCR) Not detected NOT DETECTE [facility] Brittany parapsilosis (PCR) Not detected NOT DETECTE [facility] Brittany tropicalis (PCR) Not detected NOT DETECTE [facility] Crypto neoformans/gattii (PCR)(LAB) Not detected NOT DETECTE [facility] CTX-M ESBL (PCR) NOT APPLICABLE NOT DETECTE [facility] Enterobacter cloacae complex (PCR) Not detected NOT DETECTE [facility] Enterobacterales (PCR) Not detected NOT DETECTE [facility] Enterococcus faecalis PCR Not detected NOT DETECTE [facility] Enterococcus faecium PCR Not detected NOT DETECTE [facility] Escherichia coli Result Not detected NOT DETECTE [facility] Haemophilus influenzae DNA Not detected NOT DETECTE [facility] IMP (blaIMP) Carbap Res Gene (PCR) NOT APPLICABLE NOT DETECTE [facility] Klebsiella aerogenes (PCR) Not detected NOT DETECTE [facility] Klebsiella oxytoca (PCR) Not detected NOT DETECTE [facility] Klebsiella pneumoniae group (PCR) Not detected NOT DETECTE [facility] KPC (blaKPC) Detection (PCR) NOT APPLICABLE NOT DETECTE [facility] Listeria monocytogenes (PCR) Not detected NOT DETECTE [facility] MCR-1 Resistance Gene NOT APPLICABLE NOT DETECT E [facility] mecA/C & MREJ Antimicrob Resist Gen NOT APPLICABLE NOT DETECTE [facility] mecA/C-Methicillin Resistance Gene NOT APPLICABLE NOT DETECTE [facility] NDM (blaNDM) Detection (PCR) NOT APPLICABLE NOT DETECTE [facility] Neisseria meningitidis (PCR) Not detected NOT DETECTE [facility] Proteus species (PCR) Not detected NOT DETECTE [facility] Pseudomonas aeruginosa (PCR) Not detected NOT DETECTE [facility] Salmonella spp. (PCR) Not detected NOT DETECTE [facility] Serratia marcescens (PCR) Not detected NOT DETECTE [facility] Staphylococcus aureus (PCR)(LAB) Not detected NOT DETECTE [facility] Staphylococcus epidermidis (PCR) Not detected NOT DETECTE [facility] Staphylococcus lugdunensis (TEM-PCR Not detected NOT DETECTE [facility] Staphylococcus species (PCR) Not detected NOT DETECTE [facility] Stenotroph. maltophilia (PCR) Not detected NOT DETECTE [facility] Streptococcus pneumoniae (PCR) Not detected NOT DETECTE [facility] Streptococcus pyogenes (PCR)(LAB) Not detected NOT DETECTE [facility] Streptococcus species (PCR) Not detected NOT DETECTE [facility] Syn OXA-48-like Carb Res Gene (PCR) NOT APPLICABLE NOT DETECTE [facility] Deion/B-Vancomycin Resistance Genes NOT APPLICABLE NOT DETECTE [facility] VIM (blaVIM) Carbap Res Gene (PCR) NOT APPLICABLE NOT DETECTE [facility] No Panel InformationOrdered By: Timo Francis on 01-08-2024 Blood Culture 2 [facility] Blood Culture 1 [facility] Office Visiton 01-01-2024 Follow-up visit [id number] Samson Kelley 1935 M Date Provider Department Center 01/01/2024 Clint-MARGARITA HERNANDEZ [facility] No family history on file Level of Service:24900 [place] OFFICE/OUTPATIENT ESTABLISHED MOD MDM 30 MIN Normal [facility] Office Visiton 04-17-2023 Follow-up visit [id number] Samson Kelley 1935 M Date Provider Department Center 04/17/2023 166-JUAN LUIS CALVIN [facility] No family history on file Level of Service:33014 [place] OFFICE/OUTPATIENT NEW MODERATE MDM 45-59 MINUTES Reason for Visit and Comments: Establish Care [42] Normal [facility] Ambulatory Visit Summaryon 1 Ambulatory Visit Summary SAMSON KELLEY :1935 Visit Date:09/21/2022 Ambulatory Visit Instructions Your Diagnosis Urge incontinence History of prostate cancer Tests Performed Urnls Dip Stick Auto w/o Microscopy POC 86740 Your Care Team Attending Physician - MARYBETH [...] Only if needed Where: [address] [place] [address] [phone] Medications What How Much When Instructions Unchanged oxybutynin (oxybutynin 5 mg ER Tab) 1 Tablets By Mouth Every day Pickup at [id number] Unchanged ascorbic acid (Vitamin C) Every [...] physician if questions or concerns Pharmacy Information [facility]: [address] [place] [phone] [phone] Test Results Urnls Dip Stick Auto w/o Microscopy POC 70419 (09/21/2022) Bilirubin Urine Dipstick - Negative Blood Urine Dipstick - Negative Glucose Urine Dipstick - Negative Ketones Urine Dipstick - Negative Leukocytes Urine Dipstick - Negative Nitrite Urine Dipstick - Negative Protein Urine Dipstick - Negative Specific [place] Urine Dipstick - 1.015 Urine Appearance Urine [...] hematuria History of prostate cancer Hyperlipidemia Hypertension long-term current use of antithrombotics/anti platelets Post-void dribbling [...] Are older than age 65. ? Are -[place]. ? Are obese. ? Have a family [...] during urination (more content not included)... Normal [facility] Ambulatory Visit Summary SAMSON KELLEY :1935 Visit Date:09/21/2022 Ambulatory Visit Instructions Your Diagnosis Urge incontinence History of prostate cancer Tests Performed Urnls Dip Stick Auto w/o Microscopy POC 13715 Your Care Team Attending Physician - MARYBETH [...] MERCHANT When: Only if needed Where: [address] [place] [address] [phone] Medications What How Much When Instructions Unchanged [...] Urnls Dip Stick Auto w/o Microscopy POC 16647 (09/21/2022) Bilirubin Urine Dipstick - Negative Blood Urine Dipstick - Negative Glucose Urine Dipstick - Negative Ketones Urine Dipstick - Negative Leukocytes Urine Dipstick - Negative Nitrite Urine Dipstick - Negative Protein Urine Dipstick - Negative Specific [place] Urine Dipstick - 1.015 Urine Appearance Urine [...] hematuria History of prostate cancer Hyperlipidemia Hypertension long-term current use of antithrombotics/anti platelets Post-void dribbling [...] Are older than age 65. ? Are -[place]. ? Are obese. ? Have a family [...] upper thi (more content not included)... Normal [facility] Patient Educationon 26-20 22 Patient Education Oncology Prostate Cancer The [...] Are older than age 65. ? Are -[place]. ? Are obese. ? Have a family [...] Follow these instructions at home: ? Take yhei-oov-htmthvn and prescription medicines only as told by [...] cancer specialis (more content not included)... Normal [facility] Urology Office/Clinic Noteon 09-21-2022 Urology Office/Clinic [...] MARYBETH STANLEY PA-C, URL Only if needed [address] [place] [address] [phone] Additional Instructions: Patient Education Prostate Cancer IRebecca [...] hematuria History of prostate cancer Hyperlipidemia Hypertension long-term current use of antithrombotics/anti platelets Post-void dribbling [...] 09/05/2016 Rec (more content not included)... Normal [facility] Comment on above: Result Comment: Elec tronically Signed By: KENNETH SHEPARD, MARYBETH Trivedi\.br\Date and Time Signed: 09/21/22 13:18 EDT CBC AUTO DIFFon 09-06-2022 BASO # 0.0 103/ul Normal 0.0-0.1 [facility] Comment on above: Performed By: #### C BC #### [facility] [address] [place] [address] Dr. Kirk García Basophils/100 WBC (Bld) 0.5 % Normal 0.2-2.0 [facility] Comment on above: Performed By: #### C BC #### [facility] [address] [place] [address] Dr. Kirk García EO # 0.1 103/ul Normal 0.0-0.7 [facility] Comment on above: Performed By: #### C BC #### [facility] [address] [place] [address] Dr. Krik García Eosinophils/100 WBC (Bld) 1.2 % Normal 0.9-7.0 [facility] Comment on above: Performed By: #### C BC #### [facility] [address] [place] [address] Dr. Kirk García Erythrocyte distribution width (RBC) [Ratio] 14.2 % Normal 11.0-15.0 [facility] Comment on above: Performed By: #### C BC #### [facility] [address] [place] [address] Dr. Kirk García Hematocrit (Bld) [Volume fraction] 35.6 % Critically low 42.0-54.0 [facility] Comment on above: Performed By: #### C BC #### [facility] [address] [place] [address] Dr. Kirk García Hemoglobin (Bld) [Mass/Vol] 11.7 g/dL Critically low 14.0-18.0 [facility] Comment on above: Performed By: #### C BC #### [facility] [address] [place] [address] Dr. Kirk García IG # 0.04 10e3/ul Critically high 0.00-0.03 [place] Comment on above: Performed By: #### C BC #### [facility] [address] [place] [address] Dr. Kirk García IG % 0.6 % Critically high 0.0-0.5 [facility] Comment on above: Performed By: #### C BC #### [facility] [address] [place] [address] Dr. Kirk García LYMPH # 1.7 103/ul Normal 1.2-3.8 [facility] Comment on above: Performed By: #### C BC #### [facility] [address] [place] [address] Dr. Kirk García Lymphocytes/100 WBC (Bld) 25.7 % Normal 20.5-60.0 [facility] Comment on above: Performed By: #### C BC #### [facility] [address] [place] [address] Dr. Kirk García MANUAL DIFF REQ NO Normal [facility] Comment on above: Performed By: #### C BC #### [facility] [address] [place] [address] Dr. Kirk García MCH (RBC) [Entitic mass] 34.1 pg Critically high 25.9-34.0 [facility] Comment on above: Performed By: #### C BC #### [facility] [address] [place] [address] Dr. Kirk García MCHC (RBC) [Mass/Vol] 32.9 g/dL Normal 29.9-35.2 [facility] Comment on above: Performed By: #### C BC #### [facility] [address] [address] [address] Kirk García MCV (RBC) [Entitic vol] 103.8 fL Critically high 80.0-94.0 [facility] Comment on above: Performed By: #### C BC #### [facility] [address] [place] [address] Dr. Kirk García MONO # 1.1 103/ul Critically high 0.3-0.8 [facility] Comment on above: Performed By: #### C BC #### [facility] [address] [place] [address] Dr. Kirk García Monocytes/100 WBC (Bld) 17.7 % Critically high 1.7-12.0 [facility] Comment on above: Performed By: #### C BC #### [facility] [address] [place] [address] Dr. Kirk García NEUT # 3.5 103/ul Normal 1.4-6.5 [facility] Comment on above: Performed By: #### C BC #### [facility] [address] [place] [address] Dr. Kirk García Neutrophils/100 WBC (Bld) 54.3 % Normal 43.0-75.0 [facility] Comment on above: Performed By: #### C BC #### [facility] [address] [place] [address] Dr. Kirk García Platelet mean volume (Bld) [Entitic vol] 10.1 fL Normal 9.5-13.5 [facility] Comment on above: Performed By: #### C BC #### [facility] [address] [place] [address] Dr. Kirk García PLT 153 103/ul Normal 150-450 [facility] Comment on above: Performed By: #### C BC #### [facility] [address] [place] [address] Dr. Kirk García RBC 3.43 106/ul Critically low 4.70-6.10 [facility] Comment on above: Performed By: #### C BC #### [facility] [address] [place] [address] Dr. Kirk García WBC 6.5 103/ul Normal 4.0-11.0 [facility] Comment on above: Performed By: #### C BC #### [facility] [address] [place] [address] Dr. Kirk García PROF CHEM 8 (BAS METB)on Anion gap [Moles/Vol] 10.8 mmol/L Normal [facility] Comment on above: Performed By: #### B MP #### [facility] [address] [place] [address] Dr. Kirk García Calcium [Mass/Vol] 9.2 mg/dL Normal 8.5-10.1 [facility] Comment on above: Performed By: #### B MP #### [facility] [address] [place] [address] Dr. Kirk García Chloride [Moles/Vol] 101 mmol/L Normal 98-107 [facility] Comment on above: Performed By: #### B MP #### [facility] [address] [place] [address] Dr. Kirk García CO2 [Moles/Vol] 30.9 mmol/L Normal 21.0-32.0 [facility] Comment on above: Performed By: #### B MP #### [facility] [address] [place] [address] Dr. Kirk García Creatinine [Mass/Vol] 1.54 mg/dL Critically high 0.70-1.30 [facility] Comment on above: Performed By: #### B MP #### [facility] [address] [place] [address] Dr. Kirk García EGFR-AF NAMIBIAN 52 mL/min/1.73m2 Critically low >=60 [facility] Comment on above: Performed By: #### B MP #### [facility] [address] [place] [address] Dr. Kirk García EGFR-NON AF NAMIBIAN 43 mL/min/1.73m2 Critically low >=60 [facility] Comment on above: Performed By: #### B MP #### [facility] [address] [address] [address] Kirk García Glucose [Mass/Vol] 106 mg/dL Normal 74-106 [facility] Comment on above: Performed By: #### B MP #### [facility] [address] [address] [address] Kirk García Potassium [Moles/Vol] 4.7 mmol/L Normal 3.5-5.1 [facility] Comment on above: Performed By: #### B MP #### [facility] [address] [address] [address] Kirk García Sodium [Moles/Vol] 138 mmol/L Normal 136-145 [facility] Comment on above: Performed By: #### B MP #### [facility] Laboratory [address] [address] [address] Kirk García Urea nitrogen [Mass/Vol] 28.0 mg/dL Critically high 7.0-18.0 [facility] Comment on above: Performed By: #### B MP #### [facility] [address] [address] [address] Kirk García Urea nitrogen/Creatinine [Mass ratio] 18.2 mg/mg Normal [facility] Comment on above: Performed By: #### B MP #### [facility] [address] [address] [address] Kirk García CBC W MANUAL DIFFon 08-15-20 22 ATYPICAL LYMPH # 1.62 103/ul Normal [place] Comment on above: Performed By: #### U MICRO, ERUR #### [facility] [address] [address] [address] Kirk García ATYPICAL LYMPH % 12 % Normal [facility] Comment on above: Performed By: #### U MICRO, ERUR #### [facility] [address] [address] [address] Kirk García BAND # 0.1 103/ul Normal 0.0-0.3 [facility] Comment on above: Performed By: #### U MICRO, ERUR #### [facility] [address] [place] [address] Dr. Kirk García BAND % 1 % Normal 0-5 [facility] Comment on above: Performed By: #### U MICRO, ERUR #### [facility] [address] [place] [address] Dr. Kirk García BASOM # 0.14 103/ul Critically high 0.00-0.10 [facility] Comment on above: Performed By: #### U MICRO, ERUR #### [facility] [address] [place] [address] Dr. Kirk García BASOM % 1.0 % Normal 0.2-2.0 [facility] Comment on above: Performed By: #### U MICRO, ERUR #### [facility] [address] [place] [address] Dr. Kirk García BLAST # Normal [facility] Comment on above: Performed By: #### U MICRO, ERUR #### [facility] [address] [place] [address] Dr. Kirk García BLAST % Normal [facility] Comment on above: Performed By: #### U MICRO, ERUR #### [facility] [address] [place] [address] Dr. Kirk García CORRECTED WBC Normal 4.0-11.0 [facility] Comment on above: Performed By: #### U MICRO, ERUR #### [facility] [address] [place] [address] Dr. Kirk García EOS # 0.14 103/ul Normal 0.00-0.70 [facility] Comment on above: Performed By: #### U MICRO, ERUR #### [facility] [address] [place] [address] Dr. Kirk Gacría EOS% 1.0 % Normal 0.9-7.0 [facility] Comment on above: Performed By: #### U MICRO, ERUR #### [facility] [address] [place] [address] Dr. Kirk García HCT 40.7 % Critically low 42.0-54.0 [facility] Comment on above: Performed By: #### U MICRO, ERUR #### [facility] [address] [address] [address] Kirk García HGB 13.4 g/dl Critically low 14.0-18.0 [facility] Comment on above: Performed By: #### U MICRO, ERUR #### [facility] [address] [address] [address] Kirk García LYMPHM # 0.54 103/ul Critically low 1.20-3.80 [facility] Comment on above: Performed By: #### U MICRO, ERUR #### [facility] [address] [address] [address] Kirk García LYMPHM% 4.0 % Critically low 20.5-60.0 [facility] Comment on above: Performed By: #### U MICRO, ERUR #### [facility] [address] [address] [address] Kirk García MCH 34.2 pg Critically high 25.9-34.0 [facility] Comment on above: Performed By: #### U MICRO, ERUR #### [facility] [address] [address] [address] Kirk García MCHC 32.9 g/dl Normal 29.9-35.2 [facility] Comment on above: Performed By: #### U MICRO, ERUR #### [facility] [address] [address] [address] Kirk García MCV 103.8 fL Critically high 80.0-94.0 [facility] Comment on above: Performed By: #### U MICRO, ERUR #### [facility] [address] [address] [address] Kirk García METAMYELOCYTE # Normal [facility] Comment on above: Performed By: #### U MICRO, ERUR #### [facility] [address] [address] [address] Kirk García METAMYELOCYTE % Normal [facility] Comment on above: Performed By: #### U MICRO, ERUR #### [facility] [address] [address] [address] Kirk García MONOM# 1.08 103/ul Critically high 0.30-0.80 [facility] Comment on above: Performed By: #### U MICRO, ERUR #### [facility] [address] [address] [address] Kirk García MONOM% 8.0 % Normal 1.7-12.0 [facility] Comment on above: Performed By: #### U MICRO, ERUR #### [facility] [address] [address] [address] Kirk García MPV 10.7 fL Normal 9.5-13.5 [facility] Comment on above: Performed By: #### U MICRO, ERUR #### [facility] [address] [place] [address] Dr. Kirk García MYELOCYTE # Normal [facility] Comment on above: Performed By: #### U MICRO, ERUR #### [facility] [address] [address] [address] Kirk García MYELOCYTE % Normal [facility] Comment on above: Performed By: #### U MICRO, ERUR #### [facility] [address] [place] [address] Dr. Kirk García NRBC Normal [facility] Comment on above: Performed By: #### U MICRO, ERUR #### [facility] [address] [address] [address] Kirk García PLT 140 103/ul Critically low 150-450 [facility] Comment on above: Performed By: #### U MICRO, ERUR #### [facility] [address] [address] [address] Kirk García RBC 3.92 106/ul Critically low 4.70-6.10 [facility] Comment on above: Performed By: #### U MICRO, ERUR #### [facility] [address] [place] [address] Dr. Kirk García RDW 14.0 % Normal 11.0-15.0 [facility] Comment on above: Performed By: #### U MICRO, ERUR #### [facility] [address] [place] [address] Dr. Kirk García SEG # 9.86 103/ul Critically high 1.40-6.50 [facility] Comment on above: Performed By: #### U MICRO, ERUR #### [facility] [address] [place] [address] Dr. Kirk García SEG % 73.0 % Normal 43.0-75.0 [facility] Comment on above: Performed By: #### U MICRO, ERUR #### [facility] [address] [place] [address] Dr. Kirk García TOXIC GRANULATION 2+ Normal [place] Comment on above: Performed By: #### U MICRO, ERUR #### [facility] [address] [place] [address] Dr. Kirk García WBC 13.5 103/ul Critically high 4.0-11.0 [facility] Comment on above: Performed By: #### U MICRO, ERUR #### [facility] [address] [place] [address] Dr. Kirk García PROF 14(COMP METB)on 022 Albumin [Mass/Vol] 3.0 g/dL Critically low 3.4-5.0 [facility] Comment on above: Performed By: #### C MP #### [facility] [address] [place] [address] Dr. Kirk García Albumin/Globulin [Mass ratio] 0.8 {ratio} Normal [facility] Comment on above: Performed By: #### C MP #### [facility] [address] [place] [address] Dr. Kirk García ALP [Catalytic activity/Vol] 81 U/L Normal 46-116 [facility] Comment on above: Performed By: #### C MP #### [facility] [address] [place] [address] Dr. Kirk García ALT [Catalytic activity/Vol] 50 U/L Normal 16-63 [facility] Comment on above: Performed By: #### C MP #### [facility] [address] [address] [address] Kirk García Anion gap [Moles/Vol] 8.2 mmol/L Normal [facility] Comment on above: Performed By: #### C MP #### [facility] [address] [address] [address] Kirk García AST [Catalytic activity/Vol] 14 U/L Critically low 15-37 [facility] Comment on above: Performed By: #### C MP #### [facility] [address] [address] [address] Kirk García Bilirubin [Mass/Vol] 0.9 mg/dL Normal 0.2-1.0 [facility] Comment on above: Performed By: #### C MP #### [facility] [address] [address] [address] Kirk García Calcium [Mass/Vol] 9.3 mg/dL Normal 8.5-10.1 [facility] Comment on above: Performed By: #### C MP #### [facility] [address] [address] [address] Kirk García Chloride [Moles/Vol] 100 mmol/L Normal 98-107 [facility] Comment on above: Performed By: #### C MP #### [facility] [address] [address] [address] Kirk García CO2 [Moles/Vol] 33.1 mmol/L Critically high 21.0-32.0 [facility] Comment on above: Performed By: #### C MP #### [facility] [address] [address] [address] Kirk García Creatinine [Mass/Vol] 1.56 mg/dL Critically high 0.70-1.30 [facility] Comment on above: Performed By: #### C MP #### [facility] [address] [address] [address] Kirk García EGFR-AF NAMIBIAN 51 mL/min/1.73m2 Critically low >=60 [facility] Comment on above: Performed By: #### C MP #### [facility] [address] [address] [address] Kirk García EGFR-NON AF NAMIBIAN 42 mL/min/1.73m2 Critically low >=60 [facility] Comment on above: Performed By: #### C MP #### [facility] [address] [address] [address] Kirk García Globulin (S) [Mass/Vol] 3.7 g/dL Normal [facility] Comment on above: Performed By: #### C MP #### [facility] [address] [address] [address] Kirk García Glucose [Mass/Vol] 107 mg/dL Critically high 74-106 T [facility] Comment on above: Performed By: #### C MP #### [facility] [address] [address] [address] Kirk García Potassium [Moles/Vol] 5.3 mmol/L Critically high 3.5-5.1 [facility] Comment on above: Performed By: #### C MP #### [facility] [address] [address] [address] Kirk García Protein [Mass/Vol] 6.7 g/dL Normal 6.4-8.2 [facility] Comment on above: Performed By: #### C MP #### [facility] [address] [address] [address] Kirk García Sodium [Moles/Vol] 136 mmol/L Normal 136-145 [facility] Comment on above: Performed By: #### C MP #### [facility] [address] [address] [address] Kirk García Urea nitrogen [Mass/Vol] 50.0 mg/dL Critically high 7.0-18.0 [facility] Comment on above: Performed By: #### C MP #### [facility] [address] [address] [address] Kirk García Urea nitrogen/Creatinine [Mass ratio] 32.1 mg/mg Normal [facility] Comment on above: Performed By: #### C MP #### [facility] [address] [address] [address] Kirk García CULTURE URINEon 08-14-2022 CULTURE URINE Culture Observations: NO GROWTH. Normal [facility] Comment on above: Performed By: #### U MICRO, ERUR #### [facility] [address] [address] [address] Kirk García ER URINE PROFILEon 2 Bilirubin Ql (U) Negative Normal NEGATIVE [facility] Comment on above: Performed By: #### U MICRO, ERUR #### [facility] [address] [address] [address] Kirk García Clarity (U) CLEAR Normal CLEAR [facility] Comment on above: Performed By: #### U MICRO, ERUR #### [facility] [address] [place] [address] Dr. Kirk García Color (U) ORANGE Abnormal YELLOW [facility] Comment on above: Performed By: #### U MICRO, ERUR #### [facility] [address] [place] [address] Dr. Kirk García ERUAHD A micrscopic examination will be performed if indicated. Normal [facility] Comment on above: Performed By: #### U MICRO, ERUR #### [facility] [address] [address] [address] Kirk García Glucose Ql (U) Negative Normal NEGATIVE [facility] Comment on above: Performed By: #### U MICRO, ERUR #### [facility] [address] [address] [address] Kirk García Hemoglobin Ql (U) LARGE Abnormal NEGATIVE [facility] Comment on above: Performed By: #### U MICRO, ERUR #### [facility] [address] [address] [address] Kirk García Ketones Ql (U) TRACE Abnormal NEGATIVE [facility] Comment on above: Performed By: #### U MICRO, ERUR #### [facility] [address] [address] [address] Kirk García LEUKOCYTES MODERATE Abnormal NEGATIVE [facility] Comment on above: Performed By: #### U MICRO, ERUR #### [facility] [address] [address] [address] Kirk García Nitrite Ql (U) Negative Normal NEGATIVE [facility] Comment on above: Performed By: #### U MICRO, ERUR #### [facility] [address] [address] [address] Kirk García pH (U) 5.5 [pH] Normal 5-9 [facility] Comment on above: Performed By: #### U MICRO, ERUR #### [facility] [address] [address] [address] Kirk García Protein (U) [Mass/Vol] 100 mg/dL Abnormal NEGAT DANYELL/ TRACE [facility] Comment on above: Performed By: #### U MICRO, ERUR #### [facility] [address] [place] [address] Dr. Kirk García SPEC GRAVITY 1.025 Normal 1.005-<=1.[address] [place] [address] Comment on above: Performed By: #### U MICRO, ERUR #### [facility] [address] [address] [address] Kirk García UR MICRO IND INDICATED Normal [facility] Comment on above: Performed By: #### U MICRO, ERUR #### [facility] [address] [place] [address] Dr. Kirk García Urobilinogen Qn (U) 1.0 {Ryan'U}/dL Normal 0.2 - 1. 0 [facility] Comment on above: Performed By: #### U MICRO, ERUR #### [facility] [address] [address] [address] Kirk García URINE MICROSCOPIC ONLYon BACTERIA SMALL Abnormal NONE SEEN [facility] Comment on above: Performed By: #### U MICRO, ERUR #### [facility] [address] [place] [address] Dr. Kirk García Bacteria identified Cx Nom (U) INDICATED Normal [facility] Comment on above: Performed By: #### U MICRO, ERUR #### [facility] [address] [address] [address] Kirk García CAST NONE SEEN Normal NONE SEEN [facility] Comment on above: Performed By: #### U MICRO, ERUR #### [facility] [address] [address] [address] Kirk García Crystals LM Nom (Urine sed) NONE SEEN Normal NONE SEEN [facility] Comment on above: Performed By: #### U MICRO, ERUR #### [facility] [address] [place] [address] Dr. Kirk García Epithelial cells LM Ql (Urine sed) RARE Normal NONE SEEN /RARE [facility] Comment on above: Performed By: #### U MICRO, ERUR #### [facility] [address] [place] [address] Dr. Kirk García MUCOUS NONE SEEN Normal NONE SEEN [facility] Comment on above: Performed By: #### U MICRO, ERUR #### [facility] [address] [address] [address] Kirk García RBC 75-100 Abnormal 0-2 [facility] Comment on above: Performed By: #### U MICRO, ERUR #### [facility] [address] [place] [address] Dr. Kirk García WBC 50-75 Abnormal NONE SEEN [facility] Comment on above: Performed By: #### U MICRO, ERUR #### [facility] [address] [place] [address] Dr. Kirk García XR KNEE WILBER 4V [...] ANA DALAL Date: 2022-08-14 21:09 Normal [facility] CBC W MANUAL DIFFon 08-04-20 22 ATYPICAL LYMPH # Normal [facility] Comment on above: Performed By: #### C BCMAN #### [facility] [address] [place] [address] Dr. Kirk García ATYPICAL LYMPH % Normal [facility] Comment on above: Performed By: #### C BCMAN #### [facility] [address] [address] [address] Kirk García BAND # 0.0 103/ul Normal 0.0-0.3 [facility] Comment on above: Performed By: #### C BCMAN #### [facility] [address] [place] [address] Dr. Kirk García BAND % 1 % Normal 0-5 [facility] Comment on above: Performed By: #### C BCLEILA #### [facility] [address] [place] [address] Dr. Kirk García BASOM # 0.00 103/ul Normal 0.00-0.10 [facility] Comment on above: Performed By: #### C BCLEILA #### [facility] [address] [place] [address] Dr. Kirk García BASOM % 0.0 % Critically low 0.2-2.0 [facility] Comment on above: Performed By: #### C BCLEILA #### [facility] [address] [place] [address] Dr. Kirk García BLAST # Normal [facility] Comment on above: Performed By: #### C CHRISTOPHER #### [facility] [address] [place] [address] Dr. Kirk García BLAST % Normal [facility] Comment on above: Performed By: #### C CHRISTOPHER #### [facility] [address] [place] [address] Dr. Kirk García CORRECTED WBC Normal 4.0-11.0 [facility] Comment on above: Performed By: #### C BCLEILA #### [facility] [address] [place] [address] Dr. Kirk García EOS # 0.00 103/ul Normal 0.00-0.70 [facility] Comment on above: Performed By: #### C BCMAN #### [facility] [address] [address] [address] Kirk García EOS% 0.0 % Critically low 0.9-7.0 [facility] Comment on above: Performed By: #### C BCMAN #### [facility] [address] [address] [address] Kirk García HCT 31.0 % Critically low 42.0-54.0 [facility] Comment on above: Performed By: #### C BCMAN #### [facility] [address] [address] [address] Kirk García HGB 10.5 g/dl Critically low 14.0-18.0 [facility] Comment on above: Performed By: #### C BCLEILA #### [facility] [address] [address] [address] Kirk García LYMPHM # 0.31 103/ul Critically low 1.20-3.80 [facility] Comment on above: Performed By: #### C BCLEILA #### [facility] [address] [address] [address] Kirk García LYMPHM% 11.0 % Critically low 20.5-60.0 [facility] Comment on above: Performed By: #### C BCLEILA #### [facility] [address] [address] [address] Kirk García MCH 34.2 pg Critically high 25.9-34.0 [facility] Comment on above: Performed By: #### C BCLEILA #### [facility] [address] [address] [address] Kirk García MCHC 33.9 g/dl Normal 29.9-35.2 [facility] Comment on above: Performed By: #### C BCMAN #### [facility] [address] [address] [address] Kirk García MCV 101.0 fL Critically high 80.0-94.0 [facility] Comment on above: Performed By: #### C CHRISTOPHER #### [facility] [address] [address] [address] Kirk García METAMYELOCYTE # 0.1 103/ul Normal [facility] Comment on above: Performed By: #### C CHRISTOPHER #### [facility] [address] [address] [address] Kirk García METAMYELOCYTE % 2 % Normal [facility] Comment on above: Performed By: #### C CHRISTOPHER #### [facility] [address] [place] [address] Dr. Kirk García MONOM# 0.03 103/ul Critically low 0.30-0.80 [facility] Comment on above: Performed By: #### C CHRISTOPHER #### [facility] [address] [place] [address] Dr. Kirk García MONOM% 1.0 % Critically low 1.7-12.0 [facility] Comment on above: Performed By: #### C CHRISTOPHER #### [facility] [address] [place] [address] Dr. Kirk García MPV 10.7 fL Normal 9.5-13.5 [facility] Comment on above: Performed By: #### C CHRISTOPHER #### [facility] [address] [place] [address] Dr. Kirk García MYELOCYTE # 0.0 103/ul Normal [facility] Comment on above: Performed By: #### C CHRISTOPHER #### [facility] [address] [place] [address] Dr. Kirk García MYELOCYTE % 1 % Normal [facility] Comment on above: Performed By: #### C CHRISTOPHER #### [facility] [address] [place] [address] Dr. Kirk García NRBC Normal [facility] Comment on above: Performed By: #### C CHRISTOPHER #### [facility] [address] [place] [address] Dr. Kirk García PLT 84 103/ul Critically low 150-450 [facility] Comment on above: Performed By: #### C CHRISTOPHER #### [facility] [address] [address] [address] Kirk García RBC 3.07 106/ul Critically low 4.70-6.10 [facility] Comment on above: Performed By: #### C CHRISTOPHER #### [facility] [address] [address] [address] Kirk García RDW 13.3 % Normal 11.0-15.0 [facility] Comment on above: Performed By: #### C CHRISTOPHER #### [facility] [address] [address] [address] Kirk García SEG # 2.35 103/ul Normal 1.40-6.50 [facility] Comment on above: Performed By: #### C CHRISTOPHER #### [facility] [address] [place] [address] Dr. Kirk García SEG % 84.0 % Critically high 43.0-75.0 [facility] Comment on above: Performed By: #### C CHRISTOPHER #### [facility] [address] [address] [address] Kirk García WBC 2.8 103/ul Critically low 4.0-11.0 [facility] Comment on above: Performed By: #### C CHRISTOPHER #### [facility] [address] [place] [address] Dr. Kirk García PROF CHEM 8 (BAS METB)on Anion gap [Moles/Vol] 9.9 mmol/L Normal [facility] Comment on above: Performed By: #### U MICRO, ERUR #### [facility] [address] [address] [address] Kirk García Calcium [Mass/Vol] 7.4 mg/dL Critically low 8.5-10.1 [facility] Comment on above: Performed By: #### U MICRO, ERUR #### [facility] [address] [address] [address] Kirk García Chloride [Moles/Vol] 100 mmol/L Normal 98-107 [facility] Comment on above: Performed By: #### U MICRO, ERUR #### [facility] [address] [address] [address] Kirk García CO2 [Moles/Vol] 23.8 mmol/L Normal 21.0-32.0 [facility] Comment on above: Performed By: #### U MICRO, ERUR #### [facility] [address] [address] [address] Kirk García Creatinine [Mass/Vol] 1.43 mg/dL Critically high 0.70-1.30 [facility] Comment on above: Performed By: #### U MICRO, ERUR #### [facility] [address] [address] [address] Kirk García EGFR-AF NAMIBIAN 57 mL/min/1.73m2 Critically low >=60 [facility] Comment on above: Performed By: #### U MICRO, ERUR #### [facility] [address] [address] [address] Kirk García EGFR-NON AF NAMIBIAN 47 mL/min/1.73m2 Critically low >=60 [facility] Comment on above: Performed By: #### U MICRO, ERUR #### [facility] [address] [address] [address] Kirk García Glucose [Mass/Vol] 148 mg/dL Critically high 74-106 T [facility] Comment on above: Performed By: #### U MICRO, ERUR #### [facility] [address] [address] [address] Kirk García Potassium [Moles/Vol] 4.7 mmol/L Normal 3.5-5.1 [facility] Comment on above: Performed By: #### U MICRO, ERUR #### [facility] [address] [address] [address] Kirk García Sodium [Moles/Vol] 129 mmol/L Critically low 136-145 Th [facility] Comment on above: Performed By: #### U MICRO, ERUR #### [facility] [address] [address] [address] Kirk García Urea nitrogen [Mass/Vol] 42.0 mg/dL Critically high 7.0-18.0 [facility] Comment on above: Performed By: #### U MICRO, ERUR #### [facility] [address] [place] [address] Dr. Kirk García Urea nitrogen/Creatinine [Mass ratio] 29.4 mg/mg Normal [facility] Comment on above: Performed By: #### U MICRO, ERUR #### [facility] [address] [place] [address] Dr. Kirk García CBC AUTO DIFFon 08-03-2022 BASO # 0.0 103/ul Normal 0.0-0.1 [facility] Comment on above: Performed By: #### C BC #### [facility] [address] [place] [address] Dr. Kirk García Basophils/100 WBC (Bld) 0.0 % Critically low 0.2-2.0 [facility] Comment on above: Performed By: #### C BC #### [facility] [address] [place] [address] Dr. Krik García EO # 0.0 103/ul Normal 0.0-0.7 [facility] Comment on above: Performed By: #### C BC #### [facility] [address] [place] [address] Dr. Kirk García Eosinophils/100 WBC (Bld) 0.2 % Critically low 0.9-7.0 [facility] Comment on above: Performed By: #### C BC #### [facility] [address] [place] [address] Dr. Kirk García Erythrocyte distribution width (RBC) [Ratio] 13.7 % Normal 11.0-15.0 [facility] Comment on above: Performed By: #### C BC #### [facility] [address] [place] [address] Dr. Kirk García Hematocrit (Bld) [Volume fraction] 34.3 % Critically low 42.0-54.0 [facility] Comment on above: Performed By: #### C BC #### [facility] [address] [place] [address] Dr. Kirk García Hemoglobin (Bld) [Mass/Vol] 11.8 g/dL Critically low 14.0-18.0 [facility] Comment on above: Performed By: #### C BC #### [facility] [address] [place] [address] Dr. Kikr García IG # 0.02 10e3/ul Normal 0.00-0.03 [facility] Comment on above: Performed By: #### C BC #### [facility] [address] [place] [address] Dr. Kirk García IG % 0.4 % Normal 0.0-0.5 [facility] Comment on above: Performed By: #### C BC #### [facility] [address] [place] [address] Dr. Kirk García LYMPH # 0.9 103/ul Critically low 1.2-3.8 [facility] Comment on above: Performed By: #### C BC #### [facility] [address] [place] [address] Dr. Kirk García Lymphocytes/100 WBC (Bld) 16.5 % Critically low 20.5-60.0 [facility] Comment on above: Performed By: #### C BC #### [facility] [address] [place] [address] Dr. Kirk García MANUAL DIFF REQ NO Normal [facility] Comment on above: Performed By: #### C BC #### [facility] [address] [place] [address] Dr. Kirk García MCH (RBC) [Entitic mass] 34.4 pg Critically high 25.9-34.0 [facility] Comment on above: Performed By: #### C BC #### [facility] [address] [place] [address] Dr. Kirk García MCHC (RBC) [Mass/Vol] 34.4 g/dL Normal 29.9-35.2 [facility] Comment on above: Performed By: #### C BC #### [facility] [address] [place] [address] Dr. Kirk García MCV (RBC) [Entitic vol] 100.0 fL Critically high 80.0-94.0 [facility] Comment on above: Performed By: #### C BC #### [facility] [address] [place] [address] Dr. Kirk García MONO # 1.2 103/ul Critically high 0.3-0.8 [facility] Comment on above: Performed By: #### C BC #### [facility] [address] [place] [address] Dr. Kirk García Monocytes/100 WBC (Bld) 22.3 % Critically high 1.7-12.0 [facility] Comment on above: Performed By: #### C BC #### [facility] [address] [place] [address] Dr. Kirk García NEUT # 3.4 103/ul Normal 1.4-6.5 [facility] Comment on above: Performed By: #### C BC #### [facility] [address] [place] [address] Dr. Kirk García Neutrophils/100 WBC (Bld) 60.6 % Normal 43.0-75.0 [facility] Comment on above: Performed By: #### C BC #### [facility] [address] [place] [address] Dr. Kirk García Platelet mean volume (Bld) [Entitic vol] 11.6 fL Normal 9.5-13.5 [facility] Comment on above: Performed By: #### C BC #### [facility] [address] [place] [address] Dr. Kirk García PLT 99 103/ul Critically low 150-450 [facility] Comment on above: Performed By: #### C BC #### [facility] [address] [place], [place] [id number] Dr. Kirk García RBC 3.43 106/ul Critically low 4.70-6.10 [facility] Comment on above: Performed By: #### C BC #### [facility] [address] [place] [address] Dr. Kirk García WBC 5.5 103/ul Normal 4.0-11.0 [facility] Comment on above: Performed By: #### C BC #### [facility] [address] [address] [address] Kirk García CULTURE BLOODon 08-03-2022 Microscopic examination of blood, culture Culture Observations: NO GROWTH AT 5 DAYS. Normal [facility] Comment on above: Performed By: #### U MICRO, ERUR #### [facility] [address] [address] [address] Kirk García Microscopic examination of blood, culture Culture Observations: NO GROWTH AT 5 DAYS. Normal [facility] Comment on above: Performed By: #### U MICRO, ERUR #### [facility] [address] [place] [address] Dr. Kirk García Covid-19 PCR (CVDTB)on SARS-CoV-2 (COVID-19) RNA SANAZ+probe Ql (Unsp spec) Detected Critically abnormal NOT DETECTED [facility] Comment on above: Result Comment: This test is not yet approved or cleared by the [place] FDA. When there are no FDA-approved or cleared tests available, and other criteria are met, FDA can make tests available under an emergency access mechanism called an Emergency Use Authorization (EUA). The EUA for this test is supported by the Tube [employer]er of Health and Human Service's declaration that [...] used). Performed By: #### C VDTBH #### [facility] [address] [place] [address] Dr. Kirk García GROUP A STREP CULTUREon S. pyogenes Ag Ql (Unsp spec) Culture Observations: NEGATIVE FOR GROUP A STREPTOCOCCUS. Normal [facility] Comment on above: Performed By: #### U MICRO, ERUR #### [facility] [address] [place] [address] Dr. Kirk García PROF 14(COMP METB)on 022 Albumin [Mass/Vol] 3.0 g/dL Critically low 3.4-5.0 [facility] Comment on above: Performed By: #### C MP #### [facility] [address] [place] [address] Dr. Kirk García Albumin/Globulin [Mass ratio] 0.7 {ratio} Normal [facility] Comment on above: Performed By: #### C MP #### [facility] [address] [place] [address] Dr. Kirk García ALP [Catalytic activity/Vol] 76 U/L Normal 46-116 [facility] Comment on above: Performed By: #### C MP #### [facility] [address] [place] [address] Dr. Kirk García ALT [Catalytic activity/Vol] 27 U/L Normal 16-63 [facility] Comment on above: Performed By: #### C MP #### [facility] [address] [place] [address] Dr. Kirk García Anion gap [Moles/Vol] 8.9 mmol/L Normal [facility] Comment on above: Performed By: #### C MP #### [facility] [address] [place] [address] Dr. Kirk García AST [Catalytic activity/Vol] 17 U/L Normal 15-37 [facility] Comment on above: Performed By: #### C MP #### [facility] [address] [place] [address] Dr. Kirk García Bilirubin [Mass/Vol] 1.3 mg/dL Critically high 0.2-1.0 [facility] Comment on above: Performed By: #### C MP #### [facility] [address] [place] [address] Dr. Kirk García Calcium [Mass/Vol] 8.1 mg/dL Critically low 8.5-10.1 [facility] Comment on above: Performed By: #### C MP #### [facility] [address] [place] [address] Dr. Kirk García Chloride [Moles/Vol] 94 mmol/L Critically low 98-107 [facility] Comment on above: Performed By: #### C MP #### [facility] [address] [place] [address] Dr. Kirk García CO2 [Moles/Vol] 27.5 mmol/L Normal 21.0-32.0 [facility] Comment on above: Performed By: #### C MP #### [facility] [address] [place] [address] Dr. Kirk García Creatinine [Mass/Vol] 1.65 mg/dL Critically high 0.70-1.30 [facility] Comment on above: Performed By: #### C MP #### [facility] [address] [place] [address] Dr. Kirk García EGFR-AF NAMIBIAN 48 mL/min/1.73m2 Critically low >=60 [facility] Comment on above: Performed By: #### C MP #### [facility] [address] [place] [address] Dr. Kirk García EGFR-NON AF NAMIBIAN 40 mL/min/1.73m2 Critically low >=60 [facility] Comment on above: Performed By: #### C MP #### [facility] [address] [place] [address] Dr. Kirk García Globulin (S) [Mass/Vol] 4.5 g/dL Normal [facility] Comment on above: Performed By: #### C MP #### [facility] [address] [place] [address] Dr. Kirk García Glucose [Mass/Vol] 118 mg/dL Critically high 74-106 [facility] Comment on above: Performed By: #### C MP #### [facility] [address] [address] [address] Kirk García Potassium [Moles/Vol] 4.4 mmol/L Normal 3.5-5.1 [facility] Comment on above: Performed By: #### C MP #### [facility] [address] [place] [address] Dr. Kirk García Protein [Mass/Vol] 7.5 g/dL Normal 6.4-8.2 [facility] Comment on above: Performed By: #### C MP #### [facility] [address] [address] [address] Kirk García Sodium [Moles/Vol] 126 mmol/L Critically low 136-145 [facility] Comment on above: Performed By: #### C MP #### [facility] [address] [address] [address] Kirk García Urea nitrogen [Mass/Vol] 36.0 mg/dL Critically high 7.0-18.0 [facility] Comment on above: Performed By: #### C MP #### [facility] [address] [address] [address] Kirk García Urea nitrogen/Creatinine [Mass ratio] 21.8 mg/mg Normal [facility] Comment on above: Performed By: #### C MP #### [facility] [address] [address] [address] Kirk García STREPT SCREENon 08-03-2022 STREP SCREEN A Negative Normal NEGATIVE [facility] Comment on above: Performed By: #### U MICRO, ERUR #### [facility] [address] [address] [address] Kirk García XR CHEST 1 Von [...] by: MILAGROS REEDER Date: 2022-08-03 12:55 Normal [facility] CBC AUTO DIFFon 07-08-2022 BASO # 0.0 103/ul Normal 0.0-0.1 [facility] Comment on above: Performed By: #### C BC #### [facility] [address] [address] [address] Kirk García Basophils/100 WBC (Bld) 0.5 % Normal 0.2-2.0 [facility] Comment on above: Performed By: #### C BC #### [facility] [address] [address] [address] Kirk García EO # 0.1 103/ul Normal 0.0-0.7 [facility] Comment on above: Performed By: #### C BC #### [facility] [address] [address] [address] Kirk García Eosinophils/100 WBC (Bld) 1.4 % Normal 0.9-7.0 [facility] Comment on above: Performed By: #### C BC #### [facility] [address] [place] [address] Dr. Kirk García Erythrocyte distribution width (RBC) [Ratio] 13.4 % Normal 11.0-15.0 [facility] Comment on above: Performed By: #### C BC #### [facility] [address] [place] [address] Dr. Kirk García Hematocrit (Bld) [Volume fraction] 39.6 % Critically low 42.0-54.0 [facility] Comment on above: Performed By: #### C BC #### [facility] [address] [place] [address] Dr. Kirk García Hemoglobin (Bld) [Mass/Vol] 13.2 g/dL Critically low 14.0-18.0 [facility] Comment on above: Performed By: #### C BC #### [facility] [address] [place] [address] Dr. Kirk García IG # 0.02 10e3/ul Normal 0.00-0.03 [facility] Comment on above: Performed By: #### C BC #### [facility] [address] [address] [address] Kirk García IG % 0.3 % Normal 0.0-0.5 [facility] Comment on above: Performed By: #### C BC #### [facility] [address] [address] [address] Kirk García LYMPH # 1.7 103/ul Normal 1.2-3.8 [facility] Comment on above: Performed By: #### C BC #### [facility] [address] [place] [address] Dr. Kirk García Lymphocytes/100 WBC (Bld) 28.7 % Normal 20.5-60.0 [facility] Comment on above: Performed By: #### C BC #### [facility] [address] [place] [address] Dr. Kirk García MANUAL DIFF REQ NO Normal [facility] Comment on above: Performed By: #### C BC #### [facility] [address] [place] [address] Dr. Kirk García MCH (RBC) [Entitic mass] 34.4 pg Critically high 25.9-34.0 [facility] Comment on above: Performed By: #### C BC #### [facility] [address] [place] [address] Dr. Kirk García MCHC (RBC) [Mass/Vol] 33.3 g/dL Normal 29.9-35.2 [facility] Comment on above: Performed By: #### C BC #### [facility] [address] [place] [address] Dr. Kirk García MCV (RBC) [Entitic vol] 103.1 fL Critically high 80.0-94.0 [facility] Comment on above: Performed By: #### C BC #### [facility] [address] [place] [address] Dr. Kirk aGrcía MONO # 0.9 103/ul Critically high 0.3-0.8 [facility] Comment on above: Performed By: #### C BC #### [facility] [address] [place] [address] Dr. Kirk García Monocytes/100 WBC (Bld) 15.8 % Critically high 1.7-12.0 [facility] Comment on above: Performed By: #### C BC #### [facility] [address] [address] [address] Kirk García NEUT # 3.1 103/ul Normal 1.4-6.5 [facility] Comment on above: Performed By: #### C BC #### [facility] [address] [address] [address] Kirk García Neutrophils/100 WBC (Bld) 53.3 % Normal 43.0-75.0 [facility] Comment on above: Performed By: #### C BC #### [facility] [address] [place] [address] Dr. Kirk García Platelet mean volume (Bld) [Entitic vol] 10.6 fL Normal 9.5-13.5 [facility] Comment on above: Performed By: #### C BC #### [facility] [address] [place] [address] Dr. Kirk García PLT 147 103/ul Critically low 150-450 [facility] Comment on above: Performed By: #### C BC #### [facility] [address] [place] [address] Dr. Kirk García RBC 3.84 106/ul Critically low 4.70-6.10 [facility] Comment on above: Performed By: #### C BC #### [facility] [address] [place] [address] Dr. Kirk García WBC 5.9 103/ul Normal 4.0-11.0 [facility] Comment on above: Performed By: #### C BC #### [facility] [address] [place] [address] Dr. Kirk García DIGOXINon 07-08-2022 DIG 1.1 ng/mL Normal 0.9-2.0 [facility] Comment on above: Performed By: #### U MICRO, ERUR #### [facility] [address] [place] [address] Dr. Kirk García PROF CHEM 8 (BAS METB)on Anion gap [Moles/Vol] 13.6 mmol/L Normal [facility] Comment on above: Performed By: #### U MICRO, ERUR #### [facility] [address] [address] [address] Kirk García Calcium [Mass/Vol] 9.5 mg/dL Normal 8.5-10.1 [facility] Comment on above: Performed By: #### U MICRO, ERUR #### [facility] [address] [address] [address] Kirk García Chloride [Moles/Vol] 97 mmol/L Critically low 98-107 [facility] Comment on above: Performed By: #### U MICRO, ERUR #### [facility] [address] [address] [address] Kirk García CO2 [Moles/Vol] 28.8 mmol/L Normal 21.0-32.0 [facility] Comment on above: Performed By: #### U MICRO, ERUR #### [facility] [address] [address] [address] Kirk García Creatinine [Mass/Vol] 1.43 mg/dL Critically high 0.70-1.30 [facility] Comment on above: Performed By: #### U MICRO, ERUR #### [facility] [address] [address] [address] Kirk García EGFR-AF NAMIBIAN 57 mL/min/1.73m2 Critically low >=60 [facility] Comment on above: Performed By: #### U MICRO, ERUR #### [facility] [address] [address] [address] Kirk García EGFR-NON AF NAMIBIAN 47 mL/min/1.73m2 Critically low >=60 [facility] Comment on above: Performed By: #### U MICRO, ERUR #### [facility] [address] [place] [address] Dr. Kirk García Glucose [Mass/Vol] 99 mg/dL Normal 74-106 [facility] Comment on above: Performed By: #### U MICRO, ERUR #### [facility] [address] [address] [address] Kirk García Potassium [Moles/Vol] 4.4 mmol/L Normal 3.5-5.1 [facility] Comment on above: Performed By: #### U MICRO, ERUR #### [facility] [address] [address] [address] Kirk García Sodium [Moles/Vol] 135 mmol/L Critically low 136-145 [facility] Comment on above: Performed By: #### U MICRO, ERUR #### [facility] [address] [address] [address] Kirk García Urea nitrogen [Mass/Vol] 29.0 mg/dL Critically high 7.0-18.0 [facility] Comment on above: Performed By: #### U MICRO, ERUR #### [facility] [address] [address] [address] Kirk García Urea nitrogen/Creatinine [Mass ratio] 20.3 mg/mg Normal [facility] Comment on above: Performed By: #### U MICRO, ERUR #### [facility] [address] [place] [address] Dr. Kirk García Patient Educationon 03-16-20 Patient [...] Are older than age 65. ? Are -[place]. ? Are obese. ? Have a family [...] Follow these instructions at home: ? Take rpnc-clb-whgkbsd and prescription medicines only as told by [...] cancer specialis (more content not included)... Normal [facility] Urology Office/Clinic Noteon 03-16-2022 Urology Office/Clinic [...] E&M of Est. Patient Moderate 30-39 Min 42004 Measure Post Void residual urine and/or bladder capacity by US- non-imaging 29250 Urnls Dip Stick Auto w/o Microscopy POC 35296 2. History of prostate cancer (Z85.46: Personal history of malignant neoplasm of prostate) s/p brachytherapy in 2004. PSA remained very low. pt decided to have PCP do annual monitoring when he saw PRW March 2021. Ordered: E&M of Est. Patient Moderate 30-39 Min 53963 Measure Post Void residual urine and/or bladder capacity by US- non-imaging 29276 Urnls Dip Stick Auto w/o Microscopy POC 13303 Orders: oxybutynin, 5 mg = 1 tab(s), Oral, Daily, # 90 tab(s), Refills(s) 3, Pharmacy: [facility], 183, cm, 03/16/22 9:10:00 EDT, Height/Length Dosing, 99.3, kg, 03/16/22 9:10:00 EDT, Weight Dosing Follow-up With When Contact Information KENNETH SHEPARD, MARYBETH Trivedi, URL Within 6 months [address] [place] [address] [facility] (1) Additional Instructions: Patient Education Prostate Cancer 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 Normal [facility] Comment on above: Result Comment: Elec [...] Are older than age 65. ? Are -[place]. ? Are obese. ? Have a family [...] Follow these instructions at home: ? Take nfwj-ikg-waqslnu and prescription medicines only as told by [...] cancer specialis (more content not included)... Normal [facility] Urology Office/Clinic Noteon 01-06-2022 Urology Office/Clinic [...] worsen Ordered: Office Visit Level 4 Est 88225 2. History of prostate cancer (Z85.46: Personal history of malignant neoplasm of prostate) s/p brachytherapy in 2004. PSA remained very low. pt decided to have PCP do annual monitoring when he saw PRW at last visit March 2021. 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 Follow-up With When Contact Information PRN Additional Instructions: Patient Education Prostate Cancer 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 Cholecystitis Gross hematuria History of prostate cancer Hyperlipidemia Hypertension long-term current use of antithrombotics/anti platelets Post-void dribbling [...] Use:., 02 (more content not included)... Normal [facility] Comment on above: Result Comment: Elec tronically Signed By: MARYBETH STANLEY PA-C\.br\Date and Time Signed: 01/06/22 16:55 EST Leora 07-29-2021 [facility] Telephone ([facility]) SAMSON KELLEY ([id number]) 1935 M Date Time Provider Department 07/29/21 [...] RN - Fully Assessed Reason for Visit: Core Baker - Other [5168] Cmt: post-op Prescriptions as of 07/29/2021 - [...] Encounter Status:Closed by DALILA BALL on 07/29/21 [facility] ANES POSTPROC EVALon 021 ANES POSTPROC EVAL HNO ID: [id number] Author: Ramiro Esquivel MD Service: Anesthesiology Author [...] July 28, 2021 TIME: 1:35 PM CSN: [id number] [facility] ANES PRE-OPon 07-28-2021 ANES PRE-OP HNO ID: [id number] Author: Ramiro Esquivel MD Service: Anesthesiology Author [...] 100 mL Vial-Bag (UNASYN) 3 g INTRAVENOUS Residential Living Assistant to OR - [COMPLETED] acetaminophen 1,000 mg [...] July 28, 2021 TIME: 10:17 AM CSN: [id number] [facility] HISTORY PHYSICALon HISTORY PHYSICAL HNO ID: [id number] Author: Jewel Cary III, MD Service: General [...] OPERATIVE NOon 07-28-2021 OPERATIVE NO HNO ID: [id number] Author: Jewel Cary III, MD Service: General Surgery Author Type: Physician Type: Operative Report Filed: 07/28/2021 11:24 AM Note Text: OPERATIVE REPORT LOG ID: [id number] SURGERY/PROCEDURE DATE: 07/28/2021 INCISION/PROCEDURE START TIME: 10:47 AM INCISION CLOSE/PROCEDURE END TIME: 11:24 AM SURGEON: Jewel Cary III, MD ?? REAL ESTATE SALES SUPERVISOR: Monserrat Salazar PA-C? ? OPERATION: Laparoscopic cholecystectomy (18557). ? ANESTHESIA: GETA and 10 mL of [...] July 28, 2021 TIME: 11:22 AM Normal [facility] SURGICAL PATHOLOGYon 021 SURGICAL PATHOLOGY Specimen originated from [facility] Specimen #: [id number] Submitting Physician: JEWEL CARY MD FINAL DIAGNOSIS [...] The mucosa is walker-red, hyperemic, and granular. Older Adult Social Work Specialist sections are submitted as follows: A1 cystic duct margin and wall, A2 fundus. SLE/ch 07/28/2021 Gross examination performed at [facility], [facility] [place] [address] Date of Report: 07/29/2021 Date of Procedure: 07/28/2021 Date of Receipt: 07/28/2021 Submitted by: JEWEL CARY MD Location: [facility] Diagnostic interpretation performed at [facility], [facility] [place] [address]. CLIA Number: [id number] Normal [facility] Comment on above: Performed By: #### S #### See report for performing lab information. HISTORY PHYSICALon HISTORY PHYSICAL HNO ID: [id number] Author: Denita Simmons PA-C Service: ? Author Type: Physician Map Colorer Type: HANDP Filed: 07/19/2021 4:18 PM Note [...] in November 2019. He was admitted to [facility] due to Yuni cystitis. Providers at [...] prolapse - Mitral valve regurgitation - Thrombocytopenia ([facility]) 12/21/2016 - Trauma 11/14/2016 fell on iced stairs and bruised left thigh and scrotum - Tricuspid valve regurgitation PAST SURGICAL HISTORY Procedure Laterality Date - HEART SURGERY HX 11/2016 mitral and tricuspid valve repair - HERNIA REPAIR HX age 20's - PACEMAKER 2007 - PACEMAKER 01/2021 [employer] placed - PAST SURGICAL HISTORY OF [...] fevers. Neuro: No history of TIA's, stroke, STONE POLISHER MACHINE tumor, impaired sensorium, hemiplegia, paraplegia or quadraplegia. No neurological symptoms or problems. Respiratory: Negative for Asthma, Dyspnea, Tobacco Use, URI < 2 weeks +PND - can rarely trigger cough, but stable, no acute symptoms Cardiovascular: +Pacemaker ([employer]ien) - A-fib hx, CHB no symptoms +Heart failure - on digoxin, Lasix. Chronic lower extremity edema. +Valve history - s/p Mitral and tricuspid repair 2017 - Dr. Adrinana Geiger - Ra (more content not included)... Normal [facility] CNCFranky 07-13-2021 CNCO Letter Text Normal [facility] [place] 07-13-2021 FEDERICON Telephone (GENSAV) SAMSON KELLEY ([id number]) 1935 M Date Time Provider Department 07/13/21 [...] by routing message back to Angel ROSARIO CRIMINAL PSYCHOLOGIST, prior to notifying the patient. Marybeth Georgi 07/13/2021 1:53 PM Signed Pt seeing Cardi Dr Adrianna Geiger @ [place] [address] Will send clearance to this provider Cat Gibbs 07/15/2021 11:03 AM Signed Cari from Jacki Geiger's office called and asked to have clearance letter fax to [phone]. Thank you. Marybeth Georgi 07/15/2021 11:21 AM [...] Encounter Status:Closed by MARYBETH LAUREANO on 07/13/21 [facility] [place] 07-12-2021 MANOJ Telephone (GENSAV) SAMSON KELLEY ([id number]) 1935 M Date Time Provider Department 07/12/21 JEWEL CARY III GENSAAristeo During your visit today, we recorded the following information about you: Marybeth Laureano 07/13/2021 2:08 PM Addendum Cur received Pt needs cardiac clearance Dr Kody Lynn Tele enct sent Spoke w pt he now sees Dr Adrianna Geiger at [facility]. Letter electronically sent. Marybeth Laureano 07/13/2021 3:25 PM Signed electronic faxed failed printed and sent to verified fax number of [phone]. Confirmed received. Marybeth Laureano 07/19/2021 3:02 PM Signed PACC received clearance from Dr Geiger. Pt cleared scheduled 9-1-21 Allergies As of Date: 07/12/2021 (No Known [...] Status:Closed by MARYBETH LAUREANO on 07/19/21 Normal [facility] HISTORY PHYSICALon HISTORY PHYSICAL HNO ID: [id number] Author: Jewel Cary III, MD Service: ? [...] for internal providers or letter via the [employer] Postal Service for external providers. HISTORY: He [...] stored in (more content not included)... Normal [facility] OPERATIVE REPORTon OPERATIVE REPORT NAME: SAMSON KELLEY MR#: [id number] SURGEON: Adrianna Geiger MD DATE OF SURGERY: 02/01/2021 OPERATIVE REPORT PREOPERATIVE DIAGNOSIS: End of life pacemaker pulse generator. POSTOPERATIVE DIAGNOSIS: End of life pacemaker pulse generator. PROCEDURE: Change out of end of life pacemaker pulse generator. 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 The new pulse generator is a [employer] Accolade MRI safe pacemaker, model #L311 serial #[id number]. The pulse generator was attached to the [...] of the day today. ADRIANNA GEIGER MD [facility]/[id number] E/S: Adrianna Geiger MD 02/08/21 0856 Electronically Signed [facility] PT NAME: SAMSON KELLEY MR#: [id number] [address] [place] [address] ACCT: [id number] : [birth year] OPERATIVE REPORT [facility] SURGon 02-01-2021 SURG [facility] Comment on above: Result Comment: RUN DATE: 02/02/21 [facility] LAB *LIVE* PAGE 1RUN TIME: 1351 Specimen InquiryRUN USER: [email or web address] Name: SAMSON KELLEY : [birth year] Sex:M Attend Dr: Adrianna Geiger [facility]#: [id number] Unit#: [id number] Status: [facility] [place] Location: ANA MARIA ErisS17-01 Received: 02/01/21 Status: PRIYANKA Saravia#: [id number]#: [id number] Collected: 02/01/21-[address] [facility] [address]: Adrianna Geiger MDTISSHARANES: A. EXPLANTED HARDWARE MICROSCOPIC EXAM: N/A DIAGNOSIS: EXPLANTED HARDWARE, REMOVAL: - PULSE GENERATOR (GROSS DIAGNOSIS ONLY) Signed Signature on File KT SCHAFER 02/02/[id number] Name: SAMSON KELLEY [facility] Hosp Num: [id number] A Ministry of Age / Sex: 85/M [facility] Physician: Adrianna Geiger MD [address] [address] Location: SAME DAY SURGERY END OF REPORT Performed By: #### P SURG ####Test performed at: [facility] [address] [address] Vital Signs Date Time Vital Sign Value Performing Clinician Facility 01-16-2024 11:34-0500 Body height 182.88 cm [facility] 01-16-2024 11:34-0500 Body mass index (BMI) [Ratio] 28.5 kg/m2 [facility] 01-16-2024 11:34-0500 Body weight 95.48 kg [facility] 01-16-2024 11:34-0500 Diastolic blood pressure 62 mm[Hg] [facility] 01-16-2024 11:34-0500 Heart rate 82 /min [facility] 01-16-2024 11:34-0500 Respiratory rate 20 /min [facility] 01-16-2024 11:34-0500 Systolic blood pressure 102 mm[Hg] [facility] 12-08-2023 11:30-0500 Body height 182.88 cm [facility] 12-08-2023 11:30-0500 Body weight 94.16 kg [facility] 12-08-2023 11:30-0500 Diastolic blood pressure 74 mm[Hg] [facility] 12-08-2023 11:30-0500 Systolic blood pressure 115 mm[Hg] [facility] 11-22-2023 10:00-0500 Body height 182.88 cm Timo Ball Other [facility] 11-22-2023 10:00-0500 Body mass index (BMI) [Ratio] 28.67 kg/m2 Timo Ball Other [employer] [facility] [employer] Other 11-22-2023 10:00-0500 Body weight 95.89 kg Timo Ball Other [employer] Other 11-22-2023 10:00-0500 Body weight 95.88 kg [facility] 11-22-2023 10:00-0500 Diastolic blood pressure 64 mm[Hg] Timo Ball Other [facility] 11-22-2023 10:00-0500 Respiratory rate 16 /min Timo Ball Other [facility] [employer] Other 11-22-2023 10:00-0500 SaO2% (BldA) [Mass fraction] 95 % Timo Ball Other [facility] [employer] Other 11-22-2023 10:00-0500 Systolic blood pressure 102 mm[Hg] Timo Ball Other [facility] 10-03-2023 13:45-0500 Body height 182.88 cm Timo Ball Other [employer] Other 10-03-2023 13:45-0500 Body mass index (BMI) [Ratio] 29.02 kg/m2 Timo Ball Other [facility] [employer] Other 10-03-2023 13:45-0500 Body weight 97.07 kg Timo Ball Other [employer] Other 10-03-2023 13:45-0500 Diastolic blood pressure 67 mm[Hg] Timo Ball Other [employer] Other 10-03-2023 13:45-0500 Respiratory rate 16 /min Timo Ball Other [employer] Other 10-03-2023 13:45-0500 Systolic blood pressure 106 mm[Hg] Timo Ball Other [employer] Other 09-29-2023 13:45-0400 Body height 182.88 cm Timo Ball Other [employer] Other 08-31-2023 11:00-0400 Body height 182.88 cm Timo Ball Other [employer] Other 08-31-2023 11:00-0400 Body mass index (BMI) [Ratio] 28.23 kg/m2 Timo Ball Other [employer] Other 08-31-2023 11:00-0400 Body weight 94.44 kg Timo Ball Other [employer] Other 08-31-2023 11:00-0400 Diastolic blood pressure 61 mm[Hg] Timo Ball Other [employer] Other 08-31-2023 11:00-0400 Respiratory rate 12 /min Timo Ball Other [employer] Other 08-31-2023 11:00-0400 Systolic blood pressure 105 mm[Hg] Timo Ball Other [employer] Other 05-26-2023 11:00-0400 Body height 182.88 cm Timo Ball Other [employer] Other 05-26-2023 11:00-0400 Body mass index (BMI) [Ratio] 28.69 kg/m2 Timo Ball Other [employer] Other 05-26-2023 11:00-0400 Body weight 95.98 kg Timo Ball Other [employer] Other 05-26-2023 11:00-0400 Diastolic blood pressure 66 mm[Hg] Timo Ball Other [employer] Other 05-26-2023 11:00-0400 Respiratory rate 16 /min Timo Ball Other [employer] Other 05-26-2023 11:00-0400 Systolic blood pressure 116 mm[Hg] Timo Ball Other [employer] Other 01-20-2023 11:00-0500 Body height 182.88 cm Timo Ball Other [employer] Other 01-20-2023 11:00-0500 Body mass index (BMI) [Ratio] 28.53 kg/m2 Timo Ball Other [employer] Other 01-20-2023 11:00-0500 Body weight 95.44 kg Timo Ball Other [employer] Other 01-20-2023 11:00-0500 Diastolic blood pressure 64 mm[Hg] Timo Ball Other [employer] Other 01-20-2023 11:00-0500 Respiratory rate 16 /min Timo Ball Other [employer] Other 01-20-2023 11:00-0500 Systolic blood pressure 102 mm[Hg] Timo Ball Other [employer] Other 09-21-2022 12:18-0400 Blood Pressure Location MARYBETH KENNETH [facility] 09-21-2022 12:18-0400 Diastolic blood pressure 58 mm[Hg] MARYBETH KENNETH [facility] 09-21-2022 12:18-0400 Heart rate 80 /min MARYBETH KENNETH [facility] 09-21-2022 12:18-0400 Respiratory rate 16 /min MARYBETH KENNEHT [facility] 09-21-2022 12:18-0400 Systolic blood pressure 111 mm[Hg] MARYBETH STANLEY [facility] 03-16-2022 08:49-0400 Blood Pressure Location MARYBETH STANLEY [facility] 03-16-2022 08:49-0400 Diastolic blood pressure 65 mm[Hg] MARYBETH STANLEY [facility] 03-16-2022 08:49-0400 Heart rate 75 /min MARYBETH STANLEY [facility] 03-16-2022 08:49-0400 Systolic blood pressure 93 mm[Hg] MARYBETH STANLEY [facility] Encounters Encounter Date Encounter Type Care Provider Facility Start: 03-22-2024 End: 03[facility]22[facility] Start: 02-22-2024 End: 02-22-2024 ambulatory JUAN LUISCHACHA CALVIN [facility] Start: 02-07-2024 End: 02-07-2024 ambulatory Martha Meier Facility:[facility] Start: 01-26-2024 End: 01-26-2024 ambulatory VENECIA FLOWERS [facility] Start: 01-16-2024 End: 01-16-2024 ambulatory [facility] Work Phone: Start: 01-16-2024 End: 01-16-2024 Patient encounter procedure [facility] Work Phone: Start: 01-12-2024 Non-patient / Non-visit [facility] Work Phone: Start: 01-11-2024 Non-patient / Non-visit [facility] Work Phone: Start: 01-10-2024 Non-patient / Non-visit [facility] Work Phone: Start: 01-09-2024 Non-patient / Non-visit [facility] Work Phone: Start: 01-08-2024 Non-patient / Non-visit [facility] Work Phone: Start: 01-01-2024 End: 01-01-2024 ambulatory [facility] Start: 12-29-2023 End: 12-29-2023 ambulatory Timo Francis Other [employer] Other Start: 12-29-2023 Telephone encounter Timo Francis [facility] Start: 12-26-2023 End: 12-26-2023 ambulatory EDDIE M ABHISHEK Not Available Start: 12-20-2023 End: 12-20-2023 ambulatory Timo Francis Other [employer] Other Start: 12-20-2023 Telephone encounter Timo Francis [facility] Start: 12-15-2023 End: 12-15-2023 ambulatory Timo Francis Other [employer] Other Start: 12-15-2023 Telephone encounter Timo Francis [facility] Start: 12-11-2023 End: 12-11-2023 ambulatory Timo Francis Other [employer] Other Start: 12-11-2023 Telephone encounter Timo Francis [facility] Start: 12-08-2023 End: 12-08-2023 Patient encounter procedure [facility] Work Phone: Start: 12-05-2023 End: 12-05-2023 ambulatory Timo Francis Other [employer] Other Start: 12-05-2023 Telephone encounter Timo Francis [facility] Start: 11-22-2023 End: 11-22-2023 ambulatory Timo Francis Other [employer] Other Start: 11-22-2023 Telephone encounter Timo Francis [facility] Start: 11-22-2023 Transitional care carlie villasenor srvc 14 day discharge Timo Francis [facility] Start: 11-22-2023 End: 11-22-2023 Patient encounter procedure [facility] Work Phone: Start: 11-17-2023 End: 11-17-2023 ambulatory Timo Francis Other [employer] Other Start: 11-17-2023 Telephone encounter Timo DIEGO [facility] Start: 10-04-2023 End: 10-04-2023 ambulatory Timo Francis Other [employer] Other Start: 10-04-2023 Telephone encounter Timo DIEGO [facility] Start: 10-03-2023 End: 10-03-2023 ambulatory Timo Francis Other [employer] Other Start: 10-03-2023 Office outpatient vi sit 15 minutes Timo Francis [facility] Start: 09-29-2023 End: 09-29-2023 ambulatory Timo Francis Other [employer] Other Start: 09-29-2023 Nursing evaluation o f patient and report Timo Francis [facility] Start: 09-06-2023 End: 09-06-2023 ambulatory Timo Francis Other [employer] Other Start: 09-06-2023 Telephone encounter Timo Francis [facility] Start: 08-31-2023 End: 08-31-2023 ambulatory Timo Francis Other [employer] Other Start: 08-31-2023 Patient encounter procedure Timo Francis [facility] Start: 05-26-2023 End: 05-26-2023 ambulatory Timo Francis Other [employer] Other Start: 05-26-2023 Office outpatient vi sit 25 minutes Timo Francis [facility] Start: 05-02-2023 End: 05-02-2023 ambulatory SAMSON [facility] Start: 04-17-2023 End: 04-17-2023 ambulatory JUAN LUIS [facility] Start: 01-20-2023 End: 01-20-2023 ambulatory Timo Francis Other [employer] Other Start: 01-20-2023 Office outpatient vi sit 25 minutes Timo Francis [facility] Start: 09-21-2022 End: 09-22-2022 ambulatory MARYBETH STANLEY Facility:[facility] Start: 09-21-2022 End: 09-21-2022 Patient encounter procedure MARYBETH STANLEY [facility] Start: 09-06-2022 End: 09-07-[address] TIMO FRANCIS Facility:[facility] Start: 08-14-2022 End: 08-15-[address] TIMO FRANCIS Facility:[facility] Start: 08-03-2022 End: 08-04-[address] TIMO FRANCIS Facility:[facility] Start: 07-08-2022 End: 07-09-[address] TIMO FRANCIS Facility:[facility] Start: 03-16-2022 End: 03-17-2022 ambulatory MARYBETH STANLEY Facility:[facility] Start: 03-16-2022 End: 03-16-2022 Patient encounter procedure MARYBETH STANLEY [facility] Start: 01-06-2022 End: 01-07-2022 ambulatory MARYBETH MOTARY Facility:[facility] Start: 01-05-2022 ambulatory MARYBETH STANLEY Facility : [facility] Start: 12-07-2018 Patient encounter procedure Facility:[id number] Start: 12-06-2018 Patient encounter procedure Facility:[id number] Procedures Date Procedure Procedure Detail Performing Clinician Start: 01-08-2024 Blood Culture 1 Start: 01-08-2024 Blood Culture 2 Start: 07-08-[address] KUSH FRANCIS Comment on above: Performed By: #### U MICRO, ERUR #### [facility] [address] [place] [address] [address] Kirk García Start: 07-28-2021 Cholecystectomy SHADIA STANLEY Start: 11-27-2006 Colonoscopy MARYBETH Angel GRAVES Start: 11-27-2004 Implantation of radi oactive seed into prostate MARYBETH STANLEY Repair of right ingu inal hernia MARYBETH STANLEY Transrectal biopsy o f prostate using ultrasound guidance MARYBETH STANLEY Immunizations Immunization Date Immunization Notes Care Provider Dari pérez 09-29-2023 influenza, high dose seasonal, preservative-free Timo Francis Other [employer] Other 09-29-2023 influenza virus vaccine, unspecified formulation [facility] 09-07-2022 influenza virus vaccine, split virus (incl. purified surface antigen) Timo Francis Other [employer] Other 09-07-2022 influenza virus vaccine, unspecified formulation [facility] 04-26-2022 SARS-CoV-2 mRNA (jtutqzabicb-ycjk-jvvse se) vaccine MARYBETH STANLEY [facility] 09-02-2021 SARS-CoV-2 (COVID-19 ) mRNA BNT-162b2 vax MARYBETH STANLEY [facility] 08-18-2021 influenza virus vaccine, unspecified formulation MARYBETH STANLEY [facility] 08-13-2021 influenza virus vaccine, split virus (incl. purified surface antigen) Timo Francis Other [employer] Other 08-13-2021 influenza virus vaccine, unspecified formulation [facility] 02-23-2021 SARS-CoV-2 (COVID-19 ) mRNA BNT-162b2 vax MARYBETH STANLEY [facility] 02-03-2021 SARS-CoV-2 (COVID-19 ) mRNA BNT-162b2 vax MARYBETH STANLEY [facility] Comment on above: Result Comment: 2021: [id number] 01-25-2021 SARS-CoV-2 (COVID-19 ) mRNA BNT-162b2 vax MARYBETH STANLEY [facility] 08-31-2020 influenza virus vaccine, split virus (incl. purified surface antigen) Timo Francis Other [employer] Other 08-31-2020 influenza virus vaccine, unspecified formulation [facility] 08-30-2019 influenza virus vaccine, split virus (incl. purified surface antigen) Timo Francis Other [employer] Other 08-30-2019 influenza virus vaccine, unspecified formulation MARYBETH STANLEY [facility] 08-29-2018 influenza virus vaccine, split virus (incl. purified surface antigen) Timo Francis Other [employer] Other 08-29-2018 influenza virus vaccine, unspecified formulation MARYBETH STANLEY [facility] 08-03-2017 influenza virus vaccine, split virus (incl. purified surface antigen) Timo Francis Other [employer] Other 08-03-2017 influenza virus vaccine, unspecified formulation MARYBETH STNALEY [facility] 09-05-2016 influenza virus vaccine, split virus (incl. purified surface antigen) Timo Francis Other [employer] [facility] [employer] Other 09-05-2016 influenza virus vaccine, unspecified formulation MARYBETH STANLEY [facility]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
[2024-06-26 13:28] LABS: Thyroid Stimulating Hormone 0.139 uIU/mL (0.358-3.740)
== END 2024-06-26 11:59 | disposition home or self-care (01) ==
LOC: LAB 11:59
PROVIDERS: PCP Internal Medicine; Visit Provider Internal Medicine
DX: E03.8 Other specified hypothyroidism (principal)
CPT/HCPCS: 36415; 84443

== ENCOUNTER 2024-06-26 12:08 | Outpatient (OUT) | payer MEDICARE, OTHER, SELFPAY ==
--- OUTSIDE RECORDS SUMMARY | 2024-06-26 12:24 | XMS_ITS | CCD ---
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 Thanks! Patient made aware. Normal [facility] Office Visiton 03-22-2024 Follow-up visit [id number] Samson Kelley 1935 M Date Provider Department Center 03/22/2024 Ximena-ROSSI OROSCO [facility]i [facility] No family history on file Level of Service:07919 [place] OFFICE/OUTPATIENT ESTABLISHED MOD MDM 30 MIN Reason for Visit and Comments: Follow-up [130337] - 1 month Normal [facility] 29on 03-06-2024 29 Addended by: ERNESTINA MACEDO on: 03/06/2024 01:43 PM Modules accepted: Orders [facility] 03-06-2024 36 Spoke with patient and advised him of Bumex increase per Consuelo Calvin CNP. He verbalized understanding. He asked that I email him order for BMP to be done in 1 week by home health. He verbalized understanding. Order emailed to him. [facility] 36 Can we have him increase his bumex to 2mg daily x3 days then alternate every other day 1mg and 2mg. Follow-up BMP in 1 week. Thanks! [facility] Orders Onlyon 03-06-2024 Orders Only [id number] Samson Kelley 1935 M On License Of [facility] Provider Department Center 03/06/2024 928-ERNESTINA MACEDO WINNIE [facility] No family history on file [facility] 3603-05-2024 36 Patient called to make you aware that he gained 3# from yesterday to today. Also is a little more SOB since cutting Bumex back. Any recommendations? [facility] 3602-29-2024 36 His kidney function has mildly worsened. Please have him cut his bumex in half to 1mg daily. Let us know if he develops worsening SOB, leg swelling, weight gain. Thanks! [facility] 3602-28-2024 36 Today patient states his weight is steady at 195 feet a little puffy but better, breathing better on O2. Please call for lab results from today. Thanks! [facility] Telephoneon 02-28-2024 Telephone [id number] Samson Kelley 1935 M Date Provider Department Center 02/28/2024 JUAN LUIS RETANA. No family history on file [facility] Office Visiton 02-22-2024 Follow-up visit [id number] Samson Kelley 1935 M Date Provider Department Center 02/22/2024 JUAN LUIS RETANA No family history on file Level of Service:97749 [place] OFFICE/OUTPATIENT ESTABLISHED MOD MDM 30 MIN Reason for Visit and Comments: Hospital Follow-up [832] Congestive Heart Failure [127] Normal [facility] CT guided bone marrow bx/asp iron 02-07-2024 CT guided bone marrow bx/aspir [facility] [place] [address] [place], [place] [id number] CT Scan Report Signed Patient: Samson Kelley MR#: [id number] : 1935 Acct:[id number] Age/Sex: 88 / M ADM Date: 02/07/24 Loc: CT Room: Type: [facility] Attending Dr: Martha Meier MD Copies to: [...] Zach Ontiveros M.D.02/07/2024 2:21 PM Dictation Location: [place] [address] Transcribed By: CHASE 02/07/24 1421 Dictated By: Zach Ontiveros II, MD 02/07/24 1418 Signed By: 02/07/24 1421 Normal [facility] Coagulation Profileon 2023 aPTT Coag (Bld) [Time] 41.4 s High 25.1-36.5 [facility] Comment on above: Result Comment: A he matocrit value greater than 55% may lead to inaccurate results in coagulation testing. Patients having hematocrit values >55% require a special collection tube for coagulation studies. Please contact the laboratory at [phone] for redraw instructions. PERFORMED BY: [place] [address] PATHOLOGIST BLEND TECHNICIAN DILIA SUAZO M.D. Performed By: #### C BC, PP #### [address] INR Coag (PPP) [Relative time] 1.2 {INR} Normal [facility] Comment on above: Result Comment: INR [...] By: #### C BC, PP #### [address] PT Coag (PPP) [Time] 13.2 s High 9.0-12.9 [facility] Comment on above: Result Comment: A he matocrit value greater than 55% may lead to inaccurate results in coagulation testing. Patients having hematocrit values >55% require a special collection tube for coagulation studies. Please contact the laboratory at [phone] for redraw instructions. Performed By: #### C BC, PP #### [address] Complete Blood Count Auto Di ffon 02-07-2024 Basophils (Bld) [#/Vol] 0.0 10*3/uL Normal 0.0-0.2 [facility] Comment on above: Result Comment: PERF ORMED BY: [place] [address] PATHOLOGIST BLEND TECHNICIAN DILIA SUAZO M.D. Performed By: #### C BC, PP #### [address] Basophils/100 WBC (Bld) 0.9 % Normal . [facility] Comment on above: Performed By: #### C BC, PP #### [address] Eosinophils (Bld) [#/Vol] 0.1 10*3/uL Normal 0.0-0.45 [facility] Comment on above: Performed By: #### C BC, PP #### [address] Eosinophils/100 WBC (Bld) 1.8 % Normal . [facility] Comment on above: Performed By: #### C BC, PP #### [address] Erythrocyte distribution width (RBC) [Ratio] 16.5 % High 12.0-14.8 [facility] Comment on above: Performed By: #### C BC, PP #### [address] Hematocrit (Bld) [Volume fraction] 31.0 % Low 38.8-50.0 [facility] Comment on above: Performed By: #### C BC, PP #### [address] Hemoglobin (Bld) [Mass/Vol] 10.3 g/dL Low 13.0-17.0 [facility] Comment on above: Performed By: #### C BC, PP #### [address] Lymphocytes (Bld) [#/Vol] 0.6 10*3/uL Low 1.00-4.8 [facility] Comment on above: Performed By: #### C BC, PP #### [place] [address] [place] Lymphocytes/100 WBC (Bld) 13.7 % Normal . [facility] Comment on above: Performed By: #### C BC, PP #### [facility] [address] MCH (RBC) [Entitic mass] 34.5 pg Normal 27.5-35.2 [facility] Comment on above: Performed By: #### C BC, PP #### [facility] [address] MCV (RBC) [Entitic vol] 103.8 fL High 83.5-101 [facility] Comment on above: Performed By: #### C BC, PP #### [address] Mean Corpuscular HGB Conc 33.2 g/dL Normal 32.5-35.6 [facility] Comment on above: Performed By: #### C BC, PP #### [address] Monocytes (Bld) [#/Vol] 0.6 10*3/uL Normal 0.0-0.8 [facility] Comment on above: Performed By: #### C BC, PP #### [address] Monocytes/100 WBC (Bld) 14.1 % Normal . [facility] Comment on above: Performed By: #### C BC, PP #### [address] Neutrophils (Bld) [#/Vol] 3.1 10*3/uL Normal 1.8-7.7 [facility] Comment on above: Performed By: #### C BC, PP #### [address] Neutrophils/100 WBC (Bld) 69.5 % Normal . [facility] Comment on above: Performed By: #### C BC, PP #### [address] NRBC% 0.3 /100{WBC} Normal 0-0.5 [facility] Comment on above: Performed By: #### C BC, PP #### [facility] [address] Platelet mean volume (Bld) [Entitic vol] 9.2 fL Normal 6.6-10.1 [facility] Comment on above: Performed By: #### C BC, PP #### [facility] [address] Platelets (Bld) [#/Vol] 84 10*3/uL Low 150-450 [facility] Comment on above: Performed By: #### C BC, PP #### [facility] [address] RBC (Bld) [#/Vol] 2.99 10*6/uL Low 3.90-5.60 [facility] Comment on above: Performed By: #### C BC, PP #### [address] WBC (Bld) [#/Vol] 4.4 10*3/uL Normal 4.1-10.5 [facility] Comment on above: Performed By: #### C BC, PP #### [address] Sam 02-07-2024 L Specimen: [id number] Received: 02/07/24 Status: PRIYANKA Saravia Num: [id number] Spec Type: Bone Marro Subm Dr: Zach Ontiveros II, MD Tissues: A Bone Marrow Aspirate (Clot) (LT ILIAC CREST) B Bone Marrow Biopsy/Core (LT ILIAC CREST) Procedures: Peripheral Smr, Iron/3, HE/4, Gross/Micro L4/2, Bm Smear/2, CD138, CD20, CD3, Decalcification, Bone Marrow TP, GIEMSA STN/6 Age/ Patient Sex Location Account Attending Physician Samson Kellye 88/M CT [id number] Martha Meier MD SPEC NUM: [id number] RECD: 02/07/24 STATUS: PRIYANKA SARAVIA NUM: [id number] AURA: 03/13/24-[address]: Zach Ontiveros II, MD ENTERED: 02/07/24-1154 [facility] DR: SPEC TYPE: Bone Marro DEPT: BM ORDERED: Peripheral Smr, Iron/3, HE/4, Gross/Micro L4/2, Bm Smear/2, CD138, CD20, CD3, Decalcification, Bone Marrow TP, GIEMSA STN/6 ORDERED: Peripheral Smr, Iron/3, HE/4, Gross/Micro L4/2, Bm Smear/2, CD138, CD20, CD3, USS/14, Decalcification, Bone Marrow TP, GIEMSA STN/6 Supplemental Report Addendum 2 Entered: 02/16/24 This Case Was Sent To [place] For additional testing. Results are as follows:? 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 Please Refer To The attached [place] Report For Diagnostic Details Addendum Signed (signature on file) Naz Spence MD 02/16/241215 Addendum 1 Entered: 02/15/24 FISH testing results are negative. Please refer to the FISH report for details. Specimen: [id number] Received: 02/07/24 Status: SOUFilemon Req Num: [id number] Spec Type: Bone Marro [facility] Dr: Zach Ontiveros II, MD Tissues: A Bone Marrow Aspirate (Clot) (LT ILIAC CREST) B Bone Marrow Biopsy/Core (LT ILIAC CREST) Procedures: Peripheral Smr, Iron/3, HE/4, Gross/Micro L4/2, Bm Smear/2, CD138, CD20, CD3, Decalcification, Bone Marrow TP, GIEMSA STN/6 Patient: WarrenSamson Farooq [id number] (Continued) Specimen: [id number] Received: 02/07/24 (Continued) Supplemental Report (Continued) Signed (signature on file) Lalita Lipscomb MD 02/09/24 1529 Specimen: [id number] Received: 02/07/24 Status: PRIYANKA Saravia Num: [id number] Spec Type: Bone Marro Stephanie Dr: Zach Ontiveros II, MD Tissues: A Bone Marrow Aspirate (Clot) (LT ILIAC CREST) B Bone Marrow Biopsy/Core (LT ILIAC CREST) Procedures: Peripheral Smr, Iron/3, HE/4, Gross/Micro L4/2, Bm Smear/2, CD138, CD20, CD3, Decalcification, Bone Marrow TP, GIEMSA STN/6 Patient: Samson Kelley Farooq [id number] (Continued) Specimen: [id number] Received: 02/07/24-1153 (Continued) Supplemental Report (Continued) Addendum Signed (signature on file) Naz Spence MD 02/15/24 5936 Pathological Diagnosis Bone marrow, core biopsy, clot [...] hypercellular due to (more content not included)... [facility] 36on 02-01-2024 36 Regarding BMP [...] Dr. Orosco on 02/12/2024 at 10:15am. Normal [facility] Orders Onlyon 01-31-2024 Orders Only [id number] Samson Kelley 1935 M Date Provider Department Center 01/31/2024 Nay-VENECIA FLOWERS [facility] [facility] No family history on file [facility] 37on 01-26-2024 37 May take [...] pillows than normal or in recliner. Normal [facility] Office Visiton 01-26-2024 Follow-up visit [id number] Samson Kelley 1935 M Date Provider Department Center 01/26/2024 VENECIA [facility]ANKLIN [facility] No family history on file Level of Service:62275 [place] OFFICE/OUTPATIENT ESTABLISHED MOD MDM 30 MIN Normal [facility] Basophils Auto (Bld) [#/Vol] on 01-12-2024 Basophils (Bld) [#/Vol] 0.0 10 3/uL 0.0-0.1 [facility] Basophils/100 WBC Auto (Bld) on 01-12-2024 Basophils/100 WBC (Bld) 0.2 % 0.2-2.0 [facility] Eosinophils/100 WBC Auto (Bl d)on 01-12-2024 Eosinophils/100 WBC (Bld) 1.2 % 0.9-7.0 [facility] Erythrocyte distribution wid th Auto (RBC) [Ratio]on 01-12-2024 Erythrocyte distribution width (RBC) [Ratio] 15.9 % 11.0-15.0 [facility] Estimated glomerular filtrat ion rate (GFR) non- Americanon 01-12-2024 GFR/1.73 sq M.predicted among non-blacks MDRD (S/P/Bld) [Vol rate/Area] 44 mL/min/{1.73_m2} >=60 [facility] Globulin Calc (S) [Mass/Vol] on 01-12-2024 Globulin (S) [Mass/Vol] 4.3 g/dL [facility] Hematocrit Auto (Bld) [Volum e fraction]on 01-12-2024 Hematocrit (Bld) [Volume fraction] 30.0 % 42.0-54.0 [facility] Hemoglobin [Mass/volume] in Bloodon 01-12-2024 Hemoglobin (Bld) [Mass/Vol] 9.5 g/dL 14.0-18.0 [facility] Laboratory - Chemistry and C hemistry - challengeon 01-12-2024 Albumin [Mass/Vol] 2.9 g/dL 3.4-5.0 [facility] ALP [Catalytic activity/Vol] 93 U/L 46-116 [facility] ALT [Catalytic activity/Vol] 17 U/L 16-63 [facility] AST [Catalytic activity/Vol] 11 U/L 15-37 [facility] Bilirubin [Mass/Vol] 1.9 mg/dL 0.2-1.0 [facility] Calcium [Mass/Vol] 9.0 mg/dL 8.5-10.1 [facility] Chloride [Moles/Vol] 106 mmol/L 98-107 [facility] CO2 [Moles/Vol] 28.1 mmol/L 21.0-32.0 [facility] Creatinine [Mass/Vol] 1.49 mg/dL 0.70-1.30 [facility] GFR/1.73 sq M.predicted MDRD (S/P/Bld) [Vol rate/Area] 54 mL/min/{1.73_m2} >=60 [facility] Glucose [Mass/Vol] 94 mg/dL 74-106 [facility] Natriuretic peptide B (Bld) [Mass/Vol] 4324.0 pg/mL <=1800.0 [facility] Comment on above: RESULTS CALLED TO SANJUANITA CORNELL RN @BY Radha Corea at 0645 Potassium [Moles/Vol] 4.2 mmol/L 3.5-5.1 [facility] Protein [Mass/Vol] 7.2 g/dL 6.4-8.2 [facility] Sodium [Moles/Vol] 141 mmol/L 136-145 [facility] Urea nitrogen [Mass/Vol] 52.0 mg/dL 7.0-18.0 [facility] Urea nitrogen/Creatinine [Mass ratio] 34.9 mg/mg [facility] Laboratory - Hematology and Cell countson 01-12-2024 Immature granulocytes/100 WBC (Bld) 0.2 % 0.0-0.5 [facility] Leukocytes [#/volume] correc ayan for nucleated erythrocytes in Blood by Automated counon 01-12-2024 WBC corrected for nucl RBC Auto (Bld) [#/Vol] 4.3 10 3/uL 4.0-11.0 [facility] Lymphocytes Auto (Bld) [#/Vo l]on 01-12-2024 Lymphocytes (Bld) [#/Vol] 0.9 10 3/uL 1.2-3.8 [facility] Lymphocytes/100 WBC Auto (Bl d)on 01-12-2024 Lymphocytes/100 WBC (Bld) 19.9 % 20.5-60.0 [facility] MCH Auto (RBC) [Entitic mass ]on 01-12-2024 MCH (RBC) [Entitic mass] 34.5 pg 25.9-34.0 [facility] MCHC Auto (RBC) [Mass/Vol]on 01-12-2024 MCHC (RBC) [Mass/Vol] 31.7 g/dL 29.9-35.2 [facility] MCV Auto (RBC) [Entitic vol] on 01-12-2024 MCV (RBC) [Entitic vol] 109.1 fL 80.0-94.0 [facility] Monocytes Auto (Bld) [#/Vol] on 01-12-2024 Monocytes (Bld) [#/Vol] 0.7 10 3/uL 0.3-0.8 [facility] Monocytes/100 WBC Auto (Bld) on 01-12-2024 Monocytes/100 WBC (Bld) 16.9 % 1.7-12.0 [facility] Neutrophils Auto (Bld) [#/Vo l]on 01-12-2024 Neutrophils (Bld) [#/Vol] 2.7 10 3/uL 1.4-6.5 [facility] Neutrophils/100 WBC Auto (Bl d)on 01-12-2024 Neutrophils/100 WBC (Bld) 61.6 % 43.0-75.0 [facility] No Panel Informationon 01-12 Digoxin Level 1.4 ng/mL 0.9-2.0 [facility] Eosinophils # (Auto) 0.1 10 3/uL 0.0-0.7 [facility] Immature Granulocyte # (Auto) 0.01 10 3/uL 0.00-0.03 [facility] Platelet mean volume Auto (B ld) [Entitic vol]on 01-12-2024 Platelet mean volume (Bld) [Entitic vol] 11.5 fL 9.5-13.5 [facility] Platelets Auto (Bld) [#/Vol] on 01-12-2024 Platelets (Bld) [#/Vol] 69 10 3/uL 150-450 [facility] RBC Auto (Bld) [#/Vol]on RBC (Bld) [#/Vol] 2.75 10 6/uL 4.70-6.10 [facility] Serum or plasma albumin/glob ulin mass ratioon 01-12-2024 Albumin/Globulin [Mass ratio] 0.7 {ratio} [facility] Serum or plasma anion gap de terminationon 01-12-2024 Anion gap [Moles/Vol] 11.1 mmol/L Fi [facility] Basophils Auto (Bld) [#/Vol] on 01-11-2024 Basophils (Bld) [#/Vol] 0.0 10 3/uL 0.0-0.1 [facility] Basophils/100 WBC Auto (Bld) on 01-11-2024 Basophils/100 WBC (Bld) 0.4 % 0.2-2.0 [facility] Eosinophils/100 WBC Auto (Bl d)on 01-11-2024 Eosinophils/100 WBC (Bld) 0.8 % 0.9-7.0 [facility] Erythrocyte distribution wid th Auto (RBC) [Ratio]on 01-11-2024 Erythrocyte distribution width (RBC) [Ratio] 16.2 % 11.0-15.0 [facility] Estimated glomerular filtrat ion rate (GFR) non- Americanon 01-11-2024 GFR/1.73 sq M.predicted among non-blacks MDRD (S/P/Bld) [Vol rate/Area] 40 mL/min/{1.73_m2} >=60 [facility] Globulin Calc (S) [Mass/Vol] on 01-11-2024 Globulin (S) [Mass/Vol] 4.7 g/dL [facility] Hematocrit Auto (Bld) [Volum e fraction]on 01-11-2024 Hematocrit (Bld) [Volume fraction] 32.4 % 42.0-54.0 [facility] Hemoglobin [Mass/volume] in Bloodon 01-11-2024 Hemoglobin (Bld) [Mass/Vol] 10.0 g/dL 14.0-18.0 [facility] Laboratory - Chemistry and C hemistry - challengeon 01-11-2024 Albumin [Mass/Vol] 3.0 g/dL 3.4-5.0 [facility] ALP [Catalytic activity/Vol] 95 U/L 46-116 [facility] ALT [Catalytic activity/Vol] 20 U/L 16-63 [facility] AST [Catalytic activity/Vol] 13 U/L 15-37 [facility] Bilirubin [Mass/Vol] 1.9 mg/dL 0.2-1.0 [facility] Calcium [Mass/Vol] 9.0 mg/dL 8.5-10.1 [facility] Chloride [Moles/Vol] 103 mmol/L 98-107 [facility] CO2 [Moles/Vol] 27.5 mmol/L 21.0-32.0 [facility] Creatinine [Mass/Vol] 1.64 mg/dL 0.70-1.30 [facility] GFR/1.73 sq M.predicted MDRD (S/P/Bld) [Vol rate/Area] 48 mL/min/{1.73_m2} >=60 [facility] Glucose [Mass/Vol] 90 mg/dL 74-106 [facility] Natriuretic peptide B (Bld) [Mass/Vol] 3351.0 pg/mL <=1800.0 [facility] Comment on above: RESULTS CALLED TO PATY PATTON RN @BY Radha Corea at 0640 Potassium [Moles/Vol] 4.2 mmol/L 3.5-5.1 [facility] Protein [Mass/Vol] 7.7 g/dL 6.4-8.2 [facility] Sodium [Moles/Vol] 141 mmol/L 136-145 [facility] Urea nitrogen [Mass/Vol] 54.0 mg/dL 7.0-18.0 [facility] Urea nitrogen/Creatinine [Mass ratio] 32.9 mg/mg [facility] Laboratory - Hematology and Cell countson 01-11-2024 Immature granulocytes/100 WBC (Bld) 0.2 % 0.0-0.5 [facility] Leukocytes [#/volume] correc ayan for nucleated erythrocytes in Blood by Automated counon 01-11-2024 WBC corrected for nucl RBC Auto (Bld) [#/Vol] 4.8 10 3/uL 4.0-11.0 [facility] Lymphocytes Auto (Bld) [#/Vo l]on 01-11-2024 Lymphocytes (Bld) [#/Vol] 0.9 10 3/uL 1.2-3.8 [facility] Lymphocytes/100 WBC Auto (Bl d)on 01-11-2024 Lymphocytes/100 WBC (Bld) 18.6 % 20.5-60.0 [facility] MCH Auto (RBC) [Entitic mass ]on 01-11-2024 MCH (RBC) [Entitic mass] 34.0 pg 25.9-34.0 [facility] MCHC Auto (RBC) [Mass/Vol]on 01-11-2024 MCHC (RBC) [Mass/Vol] 30.9 g/dL 29.9-35.2 [facility] MCV Auto (RBC) [Entitic vol] on 01-11-2024 MCV (RBC) [Entitic vol] 110.2 fL 80.0-94.0 [facility] Monocytes Auto (Bld) [#/Vol] on 01-11-2024 Monocytes (Bld) [#/Vol] 0.7 10 3/uL 0.3-0.8 [facility] Monocytes/100 WBC Auto (Bld) on 01-11-2024 Monocytes/100 WBC (Bld) 14.9 % 1.7-12.0 [facility] Neutrophils Auto (Bld) [#/Vo l]on 01-11-2024 Neutrophils (Bld) [#/Vol] 3.1 10 3/uL 1.4-6.5 [facility] Neutrophils/100 WBC Auto (Bl d)on 01-11-2024 Neutrophils/100 WBC (Bld) 65.1 % 43.0-75.0 [facility] No Panel Informationon 01-11 Digoxin Level 1.5 ng/mL 0.9-2.0 [facility] Eosinophils # (Auto) 0.0 10 3/uL 0.0-0.7 [facility] Immature Granulocyte # (Auto) 0.01 10 3/uL 0.00-0.03 [facility] Platelet mean volume Auto (B ld) [Entitic vol]on 01-11-2024 Platelet mean volume (Bld) [Entitic vol] 11.2 fL 9.5-13.5 [facility] Platelets Auto (Bld) [#/Vol] on 01-11-2024 Platelets (Bld) [#/Vol] 71 10 3/uL 150-450 [facility] RBC Auto (Bld) [#/Vol]on RBC (Bld) [#/Vol] 2.94 10 6/uL 4.70-6.10 [facility] Serum or plasma albumin/glob ulin mass ratioon 01-11-2024 Albumin/Globulin [Mass ratio] 0.6 {ratio} [facility] Serum or plasma anion gap de terminationon 01-11-2024 Anion gap [Moles/Vol] 14.7 mmol/L [facility] Basophils Auto (Bld) [#/Vol] on 01-10-2024 Basophils (Bld) [#/Vol] 0.0 10 3/uL 0.0-0.1 [facility] Basophils/100 WBC Auto (Bld) on 01-10-2024 Basophils/100 WBC (Bld) 0.3 % 0.2-2.0 [facility] Eosinophils/100 WBC Auto (Bl d)on 01-10-2024 Eosinophils/100 WBC (Bld) 1.3 % 0.9-7.0 [facility] Erythrocyte distribution wid th Auto (RBC) [Ratio]on 01-10-2024 Erythrocyte distribution width (RBC) [Ratio] 16.1 % 11.0-15.0 [facility] Estimated glomerular filtrat ion rate (GFR) non- Americanon 01-10-2024 GFR/1.73 sq M.predicted among non-blacks MDRD (S/P/Bld) [Vol rate/Area] 39 mL/min/{1.73_m2} >=60 [facility] Globulin Calc (S) [Mass/Vol] on 01-10-2024 Globulin (S) [Mass/Vol] 4.0 g/dL [facility] Hematocrit Auto (Bld) [Volum e fraction]on 01-10-2024 Hematocrit (Bld) [Volume fraction] 30.6 % 42.0-54.0 [facility] Hemoglobin [Mass/volume] in Bloodon 01-10-2024 Hemoglobin (Bld) [Mass/Vol] 9.6 g/dL 14.0-18.0 [facility] Laboratory - Chemistry and C hemistry - challengeon 01-10-2024 Albumin [Mass/Vol] 2.8 g/dL 3.4-5.0 [facility] ALP [Catalytic activity/Vol] 90 U/L 46-116 [facility] ALT [Catalytic activity/Vol] 20 U/L 16-63 [facility] AST [Catalytic activity/Vol] 12 U/L 15-37 [facility] Bilirubin [Mass/Vol] 1.6 mg/dL 0.2-1.0 [facility] Calcium [Mass/Vol] 8.9 mg/dL 8.5-10.1 [facility] Chloride [Moles/Vol] 105 mmol/L 98-107 [facility] CO2 [Moles/Vol] 27.1 mmol/L 21.0-32.0 [facility] Creatinine [Mass/Vol] 1.65 mg/dL 0.70-1.30 [facility] GFR/1.73 sq M.predicted MDRD (S/P/Bld) [Vol rate/Area] 48 mL/min/{1.73_m2} >=60 [facility] Glucose [Mass/Vol] 91 mg/dL 74-106 [facility] Natriuretic peptide B (Bld) [Mass/Vol] 2269.0 pg/mL <=1800.0 [facility] Comment on above: RESULTS CALLED TO [Aristeo PERALTA/DORIAN]@BY Adeline Sam 0662 Potassium [Moles/Vol] 4.9 mmol/L 3.5-5.1 [facility] Protein [Mass/Vol] 6.8 g/dL 6.4-8.2 [facility] Sodium [Moles/Vol] 140 mmol/L 136-145 [facility] T4 [Mass/Vol] 5.20 ug/dL 4.50-12.10 [facility] Urea nitrogen [Mass/Vol] 63.0 mg/dL 7.0-18.0 [facility] Urea nitrogen/Creatinine [Mass ratio] 38.2 mg/mg [facility] Laboratory - Hematology and Cell countson 01-10-2024 Immature granulocytes/100 WBC (Bld) 0.3 % 0.0-0.5 [facility] Leukocytes [#/volume] correc ayan for nucleated erythrocytes in Blood by Automated counon 01-10-2024 WBC corrected for nucl RBC Auto (Bld) [#/Vol] 3.9 10 3/uL 4.0-11.0 [facility] Lymphocytes Auto (Bld) [#/Vo l]on 01-10-2024 Lymphocytes (Bld) [#/Vol] 0.9 10 3/uL 1.2-3.8 [facility] Lymphocytes/100 WBC Auto (Bl d)on 01-10-2024 Lymphocytes/100 WBC (Bld) 21.8 % 20.5-60.0 [facility] MCH Auto (RBC) [Entitic mass ]on 01-10-2024 MCH (RBC) [Entitic mass] 34.7 pg 25.9-34.0 [facility] MCHC Auto (RBC) [Mass/Vol]on 01-10-2024 MCHC (RBC) [Mass/Vol] 31.4 g/dL 29.9-35.2 [facility] MCV Auto (RBC) [Entitic vol] on 01-10-2024 MCV (RBC) [Entitic vol] 110.5 fL 80.0-94.0 [facility] Monocytes Auto (Bld) [#/Vol] on 01-10-2024 Monocytes (Bld) [#/Vol] 0.6 10 3/uL 0.3-0.8 [facility] Monocytes/100 WBC Auto (Bld) on 01-10-2024 Monocytes/100 WBC (Bld) 15.4 % 1.7-12.0 [facility] Neutrophils Auto (Bld) [#/Vo l]on 01-10-2024 Neutrophils (Bld) [#/Vol] 2.4 10 3/uL 1.4-6.5 [facility] Neutrophils/100 WBC Auto (Bl d)on 01-10-2024 Neutrophils/100 WBC (Bld) 60.9 % 43.0-75.0 [facility] No Panel Informationon 01-10 Digoxin Level 1.6 ng/mL 0.9-2.0 [facility] Eosinophils # (Auto) 0.1 10 3/uL 0.0-0.7 [facility] Free Triiodothyronine 1.89 pg/mL 2.18-3.98 [facility] Immature Granulocyte # (Auto) 0.01 10 3/uL 0.00-0.03 [facility] Platelet mean volume Auto (B ld) [Entitic vol]on 01-10-2024 Platelet mean volume (Bld) [Entitic vol] 11.8 fL 9.5-13.5 [facility] Platelets Auto (Bld) [#/Vol] on 01-10-2024 Platelets (Bld) [#/Vol] 66 10 3/uL 150-450 [facility] RBC Auto (Bld) [#/Vol]on RBC (Bld) [#/Vol] 2.77 10 6/uL 4.70-6.10 [facility] Serum or plasma albumin/glob ulin mass ratioon 01-10-2024 Albumin/Globulin [Mass ratio] 0.7 {ratio} [facility] Serum or plasma anion gap de terminationon 01-10-2024 Anion gap [Moles/Vol] 12.8 [facility] Basophils Auto (Bld) [#/Vol] on 01-09-2024 Basophils (Bld) [#/Vol] 0.0 10 3/uL 0.0-0.1 [facility] Basophils/100 WBC Auto (Bld) on 01-09-2024 Basophils/100 WBC (Bld) 0.3 % 0.2-2.0 [facility] Eosinophils/100 WBC Auto (Bl d)on 01-09-2024 Eosinophils/100 WBC (Bld) 1.5 % 0.9-7.0 [facility] Erythrocyte distribution wid th Auto (RBC) [Ratio]on 01-09-2024 Erythrocyte distribution width (RBC) [Ratio] 16.1 % 11.0-15.0 [facility] Estimated glomerular filtrat ion rate (GFR) non- Americanon 01-09-2024 GFR/1.73 sq M.predicted among non-blacks MDRD (S/P/Bld) [Vol rate/Area] 39 mL/min/{1.73_m2} >=60 [facility] Globulin Calc (S) [Mass/Vol] on 01-09-2024 Globulin (S) [Mass/Vol] 3.9 g/dL [facility] Hematocrit Auto (Bld) [Volum e fraction]on 01-09-2024 Hematocrit (Bld) [Volume fraction] 28.9 % 42.0-54.0 [facility] Hemoglobin [Mass/volume] in Bloodon 01-09-2024 Hemoglobin (Bld) [Mass/Vol] 9.0 g/dL 14.0-18.0 [facility] Laboratory - Chemistry and C hemistry - challengeon 01-09-2024 Albumin [Mass/Vol] 2.8 g/dL 3.4-5.0 [facility] ALP [Catalytic activity/Vol] 82 U/L 46-116 [facility] ALT [Catalytic activity/Vol] 20 U/L 16-63 [facility] AST [Catalytic activity/Vol] 12 U/L 15-37 [facility] Bilirubin [Mass/Vol] 1.3 mg/dL 0.2-1.0 [facility] Calcium [Mass/Vol] 8.7 mg/dL 8.5-10.1 [facility] Chloride [Moles/Vol] 104 mmol/L 98-107 [facility] CO2 [Moles/Vol] 28.1 mmol/L 21.0-32.0 [facility] Creatinine [Mass/Vol] 1.66 mg/dL 0.70-1.30 [facility] GFR/1.73 sq M.predicted MDRD (S/P/Bld) [Vol rate/Area] 48 mL/min/{1.73_m2} >=60 [facility] Glucose [Mass/Vol] 76 mg/dL 74-106 [facility] Natriuretic peptide B (Bld) [Mass/Vol] 2379.0 pg/mL <=1800.0 [facility] Comment on above: RESULTS CALLED TO SANJUANITA CANALES/RN@BY Adeline Sam 0645 Potassium [Moles/Vol] 4.7 mmol/L 3.5-5.1 [facility] Protein [Mass/Vol] 6.7 g/dL 6.4-8.2 [facility] Sodium [Moles/Vol] 139 mmol/L 136-145 [facility] Urea nitrogen [Mass/Vol] 69.0 mg/dL 7.0-18.0 [facility] Urea nitrogen/Creatinine [Mass ratio] 41.6 mg/mg [facility] Laboratory - Hematology and Cell countson 01-09-2024 Immature granulocytes/100 WBC (Bld) 0.3 % 0.0-0.5 [facility] Leukocytes [#/volume] correc ayan for nucleated erythrocytes in Blood by Automated counon 01-09-2024 WBC corrected for nucl RBC Auto (Bld) [#/Vol] 3.3 10 3/uL 4.0-11.0 [facility] Lymphocytes Auto (Bld) [#/Vo l]on 01-09-2024 Lymphocytes (Bld) [#/Vol] 0.7 10 3/uL 1.2-3.8 [facility] Lymphocytes/100 WBC Auto (Bl d)on 01-09-2024 Lymphocytes/100 WBC (Bld) 21.6 % 20.5-60.0 [facility] MCH Auto (RBC) [Entitic mass ]on 01-09-2024 MCH (RBC) [Entitic mass] 34.1 pg 25.9-34.0 [facility] MCHC Auto (RBC) [Mass/Vol]on 01-09-2024 MCHC (RBC) [Mass/Vol] 31.1 g/dL 29.9-35.2 [facility] MCV Auto (RBC) [Entitic vol] on 01-09-2024 MCV (RBC) [Entitic vol] 109.5 fL 80.0-94.0 [facility] Monocytes Auto (Bld) [#/Vol] on 01-09-2024 Monocytes (Bld) [#/Vol] 0.6 10 3/uL 0.3-0.8 [facility] Monocytes/100 WBC Auto (Bld) on 01-09-2024 Monocytes/100 WBC (Bld) 18.3 % 1.7-12.0 [facility] Neutrophils Auto (Bld) [#/Vo l]on 01-09-2024 Neutrophils (Bld) [#/Vol] 1.9 10 3/uL 1.4-6.5 [facility] Neutrophils/100 WBC Auto (Bl d)on 01-09-2024 Neutrophils/100 WBC (Bld) 58.0 % 43.0-75.0 [facility] No Panel Informationon 01-09 Eosinophils # (Auto) 0.1 10 3/uL 0.0-0.7 [facility] Immature Granulocyte # (Auto) 0.01 10 3/uL 0.00-0.03 [facility] Platelet mean volume Auto (B ld) [Entitic vol]on 01-09-2024 Platelet mean volume (Bld) [Entitic vol] 12.0 fL 9.5-13.5 [facility] Platelets Auto (Bld) [#/Vol] on 01-09-2024 Platelets (Bld) [#/Vol] 76 10 3/uL 150-450 [facility] RBC Auto (Bld) [#/Vol]on RBC (Bld) [#/Vol] 2.64 10 6/uL 4.70-6.10 [facility] Serum or plasma albumin/glob ulin mass ratioon 01-09-2024 Albumin/Globulin [Mass ratio] 0.7 {ratio} [facility] Serum or plasma anion gap de terminationon 01-09-2024 Anion gap [Moles/Vol] 11.6 mmol/L [facility] Laboratory - Chemistry and C hemistry - challengeon 01-08-2024 Free T4 [Mass/Vol] 0.97 ng/dL 0.76-1.46 [facility] TSH Qn 17.442 m[IU]/L 0.358-3.740 [facility] Laboratory - Microbiology an d Antimicrobial susceptibilityon 01-08-2024 S. agalactiae Org specific cx Ql (Vag fld) Not detected NOT DETECTE [facility] No Panel Informationon 01-08 Troponin I High Sensitivity 40.0 pg/mL 4.0-76.1 [facility] Comment on above: CUT-OFF POINTS HAVE [...] kaycee cmplx PCR Not detected NOT DETECTE [facility] Bacteroides fragilis (PCR) Not detected NOT DETECTE [facility] Blood Culture Source Blood [facility] Brittany albicans (PCR) Not detected NOT DETECTE [facility] Brittany auris (PCR) Not detected NOT DETECTE [facility] Brittany glabrata (PCR) Not detected NOT DETECTE [facility] Brittany krusei (PCR) Not detected NOT DETECTE [facility] Brittany parapsilosis (PCR) Not detected NOT DETECTE [facility] Brittany tropicalis (PCR) Not detected NOT DETECTE [facility] Crypto neoformans/gattii (PCR)(LAB) Not detected NOT DETECTE [facility] CTX-M ESBL (PCR) NOT APPLICABLE NOT DETECTE [facility] Enterobacter cloacae complex (PCR) Not detected NOT DETECTE [facility] Enterobacterales (PCR) Not detected NOT DETECTE [facility] Enterococcus faecalis PCR Not detected NOT DETECTE [facility] Enterococcus faecium PCR Not detected NOT DETECTE [facility] Escherichia coli Result Not detected NOT DETECTE [facility] Haemophilus influenzae DNA Not detected NOT DETECTE [facility] IMP (blaIMP) Carbap Res Gene (PCR) NOT APPLICABLE NOT DETECTE [facility] Klebsiella aerogenes (PCR) Not detected NOT DETECTE [facility] Klebsiella oxytoca (PCR) Not detected NOT DETECTE [facility] Klebsiella pneumoniae group (PCR) Not detected NOT DETECTE [facility] KPC (blaKPC) Detection (PCR) NOT APPLICABLE NOT DETECTE [facility] Listeria monocytogenes (PCR) Not detected NOT DETECTE [facility] MCR-1 Resistance Gene NOT APPLICABLE NOT DETECT E [facility] mecA/C & MREJ Antimicrob Resist Gen NOT APPLICABLE NOT DETECTE [facility] mecA/C-Methicillin Resistance Gene NOT APPLICABLE NOT DETECTE [facility] NDM (blaNDM) Detection (PCR) NOT APPLICABLE NOT DETECTE [facility] Neisseria meningitidis (PCR) Not detected NOT DETECTE [facility] Proteus species (PCR) Not detected NOT DETECTE [facility] Pseudomonas aeruginosa (PCR) Not detected NOT DETECTE [facility] Salmonella spp. (PCR) Not detected NOT DETECTE [facility] Serratia marcescens (PCR) Not detected NOT DETECTE [facility] Staphylococcus aureus (PCR)(LAB) Not detected NOT DETECTE [facility] Staphylococcus epidermidis (PCR) Not detected NOT DETECTE [facility] Staphylococcus lugdunensis (TEM-PCR Not detected NOT DETECTE [facility] Staphylococcus species (PCR) Not detected NOT DETECTE [facility] Stenotroph. maltophilia (PCR) Not detected NOT DETECTE [facility] Streptococcus pneumoniae (PCR) Not detected NOT DETECTE [facility] Streptococcus pyogenes (PCR)(LAB) Not detected NOT DETECTE [facility] Streptococcus species (PCR) Not detected NOT DETECTE [facility] Syn OXA-48-like Carb Res Gene (PCR) NOT APPLICABLE NOT DETECTE [facility] Deion/B-Vancomycin Resistance Genes NOT APPLICABLE NOT DETECTE [facility] VIM (blaVIM) Carbap Res Gene (PCR) NOT APPLICABLE NOT DETECTE [facility] No Panel InformationOrdered By: Timo Francis on 01-08-2024 Blood Culture 2 [facility] Blood Culture 1 [facility] Office Visiton 01-01-2024 Follow-up visit [id number] Samson Kelley 1935 M Date Provider Department Center 01/01/2024 Clint-MARGARITA HERNANDEZ [facility]NIE [facility] No family history on file Level of Service:07945 [place] OFFICE/OUTPATIENT ESTABLISHED MOD MDM 30 MIN Normal [facility] Office Visiton 04-17-2023 Follow-up visit [id number] Samson Kelley 1935 M Date Provider Department Center 04/17/2023 166-JUAN LUIS CALVIN [facility]NIE [facility] No family history on file Level of Service:97992 [place] OFFICE/OUTPATIENT NEW MODERATE MDM 45-59 MINUTES Reason for Visit and Comments: Establish Care [42] Normal [facility] Ambulatory Visit Summaryon 1 Ambulatory Visit Summary SAMSON KELLEY :1935 Visit Date:09/21/2022 Ambulatory Visit Instructions Your Diagnosis Urge incontinence History of prostate cancer Tests Performed Urnls Dip Stick Auto w/o Microscopy POC 31093 Your Care Team Attending Physician - MARYBETH [...] Only if needed Where: [address] [facility] [place] [address] [phone] Medications What How Much When Instructions Unchanged oxybutynin (oxybutynin 5 mg ER Tab) 1 Tablets By Mouth Every day Pickup at [facility] Unchanged ascorbic acid (Vitamin C) Every [...] physician if questions or concerns Pharmacy Information [facility]: [address] [place] [phone] Test Results Urnls Dip Stick Auto w/o Microscopy POC 97500 (09/21/2022) Bilirubin Urine Dipstick - Negative Blood Urine Dipstick - Negative Glucose Urine Dipstick - Negative Ketones Urine Dipstick - Negative Leukocytes Urine Dipstick - Negative Nitrite Urine Dipstick - Negative Protein Urine Dipstick - Negative Specific Tarpley Urine Dipstick - 1.015 Urine Appearance Urine [...] hematuria History of prostate cancer Hyperlipidemia Hypertension [facility] current use of antithrombotics/anti platelets Post-void dribbling [...] Are older than age 65. ? Are -Latvian. ? Are obese. ? Have a family [...] [facility] Ambulatory Visit Summary SAMSON KELLEY :1935 Visit Date:09/21/2022 Ambulatory Visit Instructions Your Diagnosis Urge incontinence History of prostate cancer Tests Performed Urnls Dip Stick Auto w/o Microscopy POC 29076 Your Care Team Attending Physician - MARYBETH [...] MERCHANT When: Only if needed Where: [address] [facility] [place] [address] [phone] Medications What How Much When Instructions Unchanged [...] Urnls Dip Stick Auto w/o Microscopy POC 58383 (09/21/2022) Bilirubin Urine Dipstick - Negative Blood Urine Dipstick - Negative Glucose Urine Dipstick - Negative Ketones Urine Dipstick - Negative Leukocytes Urine Dipstick - Negative Nitrite Urine Dipstick - Negative Protein Urine Dipstick - Negative Specific Tarpley Urine Dipstick - 1.015 Urine Appearance Urine [...] hematuria History of prostate cancer Hyperlipidemia Hypertension [facility] current use of antithrombotics/anti platelets Post-void dribbling [...] Are older than age 65. ? Are -Latvian. ? Are obese. ? Have a family [...] [facility] Patient Educationon 26-20 22 Patient Education Oncology [...] Are older than age 65. ? Are -Latvian. ? Are obese. ? Have a family [...] Follow these instructions at home: ? Take [id number] and prescription medicines only as told by [...] MARYBETH STANLEY PA-C, URL Only if needed [address] [place] [address] [phone] Additional Instructions: Patient Education Prostate Cancer IRebecca [...] hematuria History of prostate cancer Hyperlipidemia Hypertension [facility] current use of antithrombotics/anti platelets Post-void dribbling [...] 09-06-2022 BASO # 0.0 103/ul Normal 0.0-0.1 [facility] Comment on above: Performed By: #### C BC #### [facility] [address] [place] [address] Dr. Kirk García Basophils/100 WBC (Bld) 0.5 % Normal 0.2-2.0 [facility] Comment on above: Performed By: #### C BC #### [facility] [address] [place] [address] Dr. Kirk García EO # 0.1 103/ul Normal 0.0-0.7 [facility] Comment on above: Performed By: #### C BC #### [facility] [address] [place] [address] Dr. Kirk García Eosinophils/100 WBC (Bld) 1.2 % Normal 0.9-7.0 [facility] Comment on above: Performed By: #### C BC #### [facility] [address] [place] [address] Dr. Kirk García Erythrocyte distribution width (RBC) [Ratio] 14.2 % Normal 11.0-15.0 [facility] Comment on above: Performed By: #### C BC #### [facility] [address] [place] [address] Dr. Kirk García Hematocrit (Bld) [Volume fraction] 35.6 % Critically low 42.0-54.0 [facility] Comment on above: Performed By: #### C BC #### [facility] [address] [place] [address] Dr. Kirk García Hemoglobin (Bld) [Mass/Vol] 11.7 g/dL Critically low 14.0-18.0 [facility] Comment on above: Performed By: #### C BC #### [facility] [address] [place] [address] Dr. Kirk García IG # 0.04 10e3/ul Critically high 0.00-0.03 [facility] Comment on above: Performed By: #### C BC #### [facility] [address] [place] [address] Dr. Kirk García IG % 0.6 % Critically high 0.0-0.5 [facility] Comment on above: Performed By: #### C BC #### [facility] [address] [place] [address] Dr. Kirk García LYMPH # 1.7 103/ul Normal 1.2-3.8 [facility] Comment on above: Performed By: #### C BC #### [facility] [address] [place] [address] Dr. Kirk García Lymphocytes/100 WBC (Bld) 25.7 % Normal 20.5-60.0 [facility] Comment on above: Performed By: #### C BC #### [facility] [address] [place] [address] Dr. Kirk García MANUAL DIFF REQ NO Normal [facility] Comment on above: Performed By: #### C BC #### [facility] [address] [place] [address] Dr. Kirk García MCH (RBC) [Entitic mass] 34.1 pg Critically high 25.9-34.0 [facility] Comment on above: Performed By: #### C BC #### [facility] [address] [place] [address] Dr. Kirk García MCHC (RBC) [Mass/Vol] 32.9 g/dL Normal 29.9-35.2 [facility] Comment on above: Performed By: #### C BC #### [facility] [address] [address] [address] Kirk García MCV (RBC) [Entitic vol] 103.8 fL Critically high 80.0-94.0 [facility] Comment on above: Performed By: #### C BC #### [facility] [address] [place] [address] Dr. Kirk García MONO # 1.1 103/ul Critically high 0.3-0.8 [facility] Comment on above: Performed By: #### C BC #### [facility] [address] [place] [address] Dr. Kirk García Monocytes/100 WBC (Bld) 17.7 % Critically high 1.7-12.0 [facility] Comment on above: Performed By: #### C BC #### [facility] [address] [place] [address] Dr. Kirk García NEUT # 3.5 103/ul Normal 1.4-6.5 [facility] Comment on above: Performed By: #### C BC #### [facility] [address] [place] [address] Dr. Kirk García Neutrophils/100 WBC (Bld) 54.3 % Normal 43.0-75.0 [facility] Comment on above: Performed By: #### C BC #### [facility] [address] [place] [address] Dr. Kirk García Platelet mean volume (Bld) [Entitic vol] 10.1 fL Normal 9.5-13.5 [facility] Comment on above: Performed By: #### C BC #### [facility] [address] [place] [address] Dr. Kirk García PLT 153 103/ul Normal 150-450 [facility] Comment on above: Performed By: #### C BC #### [facility] [address] [place] [address] Dr. Kirk García RBC 3.43 106/ul Critically low 4.70-6.10 [facility] Comment on above: Performed By: #### C BC #### [facility] [address] [place] [address] Dr. Kirk García WBC 6.5 103/ul Normal 4.0-11.0 [facility] Comment on above: Performed By: #### C BC #### [facility] [address] [place] [address] Dr. Kirk García PROF CHEM 8 (BAS METB)on Anion gap [Moles/Vol] 10.8 mmol/L Normal [facility] Comment on above: Performed By: #### B MP #### [facility] [address] [place] [address] Dr. Kirk García Calcium [Mass/Vol] 9.2 mg/dL Normal 8.5-10.1 [facility] Comment on above: Performed By: #### B MP #### [facility] [address] [place] [address] Dr. Kirk García Chloride [Moles/Vol] 101 mmol/L Normal 98-107 [facility] Comment on above: Performed By: #### B MP #### [facility] [address] [place] [address] Dr. Kirk García CO2 [Moles/Vol] 30.9 mmol/L Normal 21.0-32.0 [facility] Comment on above: Performed By: #### B MP #### [facility] [address] [place] [address] Dr. Kirk García Creatinine [Mass/Vol] 1.54 mg/dL Critically high 0.70-1.30 [facility] Comment on above: Performed By: #### B MP #### [facility] [address] [place] [address] Dr. Kirk García EGFR-AF NIGERIEN 52 mL/min/1.73m2 Critically low >=60 [facility] Comment on above: Performed By: #### B MP #### [facility] [address] [place] [address] Dr. Kirk García EGFR-NON AF NIGERIEN 43 mL/min/1.73m2 Critically low >=60 [facility] Comment on above: Performed By: #### B MP #### [facility] [address] [address] [address] Kirk García Glucose [Mass/Vol] 106 mg/dL Normal 74-106 [facility] Comment on above: Performed By: #### B MP #### [facility] [address] [address] [address] Kirk García Potassium [Moles/Vol] 4.7 mmol/L Normal 3.5-5.1 [facility] Comment on above: Performed By: #### B MP #### [facility] [address] [address] [address] Kirk Gacría Sodium [Moles/Vol] 138 mmol/L Normal 136-145 [facility] Comment on above: Performed By: #### B MP #### [facility] [address] [address] [address] Kirk García Urea nitrogen [Mass/Vol] 28.0 mg/dL Critically high 7.0-18.0 [facility] Comment on above: Performed By: #### B MP #### [facility] [address] [address] [address] Kirk García Urea nitrogen/Creatinine [Mass ratio] 18.2 mg/mg Normal [facility] Comment on above: Performed By: #### B MP #### [facility] [address] [address] [address] Kirk García CBC W MANUAL DIFFon 08-15-20 22 ATYPICAL LYMPH # 1.62 103/ul Normal [facility] Comment on above: Performed By: #### U MICRO, ERUR #### [facility] [address] [address] [address] Kirk García ATYPICAL LYMPH % 12 % Normal [facility] Comment on above: Performed By: #### U MICRO, ERUR #### [facility] [address] [address] [address] Kirk García BAND # 0.1 103/ul Normal 0.0-0.3 [facility] Comment on above: Performed By: #### U MICRO, ERUR #### [facility] [address] [place] [address] Dr. Kirk García BAND % 1 % Normal 0-5 [facility] Comment on above: Performed By: #### U MICRO, ERUR #### [facility] [address] [place] [address] Dr. Kirk García BASOM # 0.14 103/ul Critically high 0.00-0.10 The [facility] Comment on above: Performed By: #### U MICRO, ERUR #### [facility] [address] [place] [address] Dr. Kirk García BASOM % 1.0 % Normal 0.2-2.0 [facility] Comment on above: Performed By: #### U MICRO, ERUR #### [facility] [address] [place] [address] Dr. Kirk García BLAST # Normal [facility] Comment on above: Performed By: #### U MICRO, ERUR #### [facility] [address] [place] [address] Dr. Kirk García BLAST % Normal [facility] Comment on above: Performed By: #### U MICRO, ERUR #### [facility] [address] [place] [address] Dr. Kirk García CORRECTED WBC Normal 4.0-11.0 [facility] Comment on above: Performed By: #### U MICRO, ERUR #### [facility] [address] [place] [address] Dr. Kirk García EOS # 0.14 103/ul Normal 0.00-0.70 [facility] Comment on above: Performed By: #### U MICRO, ERUR #### [facility] [address] [place] [address] Dr. Kirk García EOS% 1.0 % Normal 0.9-7.0 [facility] Comment on above: Performed By: #### U MICRO, ERUR #### [facility] [address] [place] [address] Dr. Kirk García HCT 40.7 % Critically low 42.0-54.[address] [facility] Comment on above: Performed By: #### U MICRO, ERUR #### [facility] [address] [address] [address] Kirk García HGB 13.4 g/dl Critically low 14.0-18.[address] [facility] Comment on above: Performed By: #### U MICRO, ERUR #### [facility] [address] [address] [address] Kirk García LYMPHM # 0.54 103/ul Critically low 1.20-3.80 The [facility] Comment on above: Performed By: #### U MICRO, ERUR #### [facility] [address] [address] [address] Kirk García LYMPHM% 4.0 % Critically low 20.5-60.0 [facility] Comment on above: Performed By: #### U MICRO, ERUR #### [facility] [address] [address] [address] Kirk García MCH 34.2 pg Critically high 25.9-34.0 [facility] Comment on above: Performed By: #### U MICRO, ERUR #### [facility] [address] [address] [address] Kirk García MCHC 32.9 g/dl Normal 29.9-35.2 [facility] Comment on above: Performed By: #### U MICRO, ERUR #### [facility] [address] [address] [address] Kirk García MCV 103.8 fL Critically high 80.0-94.0 [facility] Comment on above: Performed By: #### U MICRO, ERUR #### [facility] [address] [address] [address] Kirk García METAMYELOCYTE # Normal [facility] Comment on above: Performed By: #### U MICRO, ERUR #### [facility] [address] [address] [address] Kirk García METAMYELOCYTE % Normal The [facility] Comment on above: Performed By: #### U MICRO, ERUR #### [facility] [address] [address] [address] Kirk García MONOM# 1.08 103/ul Critically high 0.30-0.80 [facility] Comment on above: Performed By: #### U MICRO, ERUR #### [facility] [address] [address] [address] Kirk García MONOM% 8.0 % Normal 1.7-12.0 [facility] Comment on above: Performed By: #### U MICRO, ERUR #### [facility] [address] [address] [address] Kirk García MPV 10.7 fL Normal 9.5-13.5 [facility] Comment on above: Performed By: #### U MICRO, ERUR #### [facility] [address] [place] [address] Dr. Kirk García MYELOCYTE # Normal [facility] Comment on above: Performed By: #### U MICRO, ERUR #### [facility] [address] [address] [address] Kirk García MYELOCYTE % Normal [facility] Comment on above: Performed By: #### U MICRO, ERUR #### [facility] [address] [place] [address] Dr. Kirk García NRBC Normal [facility] Comment on above: Performed By: #### U MICRO, ERUR #### [facility] [address] [address] [address] Kirk García PLT 140 103/ul Critically low 150-[address] [facility] Comment on above: Performed By: #### U MICRO, ERUR #### [facility] [address] [address] [address] Kirk García RBC 3.92 106/ul Critically low 4.70-6.10 [facility] Comment on above: Performed By: #### U MICRO, ERUR #### [facility] [address] [place] [address] Dr. Kirk García RDW 14.0 % Normal 11.0-15.0 [facility] Comment on above: Performed By: #### U MICRO, ERUR #### [facility] [address] [place] [address] Dr. Kirk García SEG # 9.86 103/ul Critically high 1.40-6.50 [facility] Comment on above: Performed By: #### U MICRO, ERUR #### [facility] [address] [place] [address] Dr. Kirk García SEG % 73.0 % Normal 43.0-75.0 [facility] Comment on above: Performed By: #### U MICRO, ERUR #### [facility] [address] [place] [address] Dr. Kirk García TOXIC GRANULATION 2+ Normal [facility] Comment on above: Performed By: #### U MICRO, ERUR #### [facility] [address] [place] [address] Dr. Kirk García WBC 13.5 103/ul Critically high 4.0-11.0 [facility] Comment on above: Performed By: #### U MICRO, ERUR #### [facility] [address] [place] [address] Dr. Kirk García PROF 14(COMP METB)on 022 Albumin [Mass/Vol] 3.0 g/dL Critically low 3.4-5.0 [facility] Comment on above: Performed By: #### C MP #### [facility] [address] [place] [address] Dr. Kirk García Albumin/Globulin [Mass ratio] 0.8 {ratio} Normal [facility] Comment on above: Performed By: #### C MP #### [facility] [address] [place] [address] Dr. Kirk García ALP [Catalytic activity/Vol] 81 U/L Normal 46-116 [facility] Comment on above: Performed By: #### C MP #### [facility] [address] [place] [address] Dr. Kirk García ALT [Catalytic activity/Vol] 50 U/L Normal 16-63 [facility] Comment on above: Performed By: #### C MP #### [facility] [address] [address] [address] Kirk García Anion gap [Moles/Vol] 8.2 mmol/L Normal [facility] Comment on above: Performed By: #### C MP #### [facility] [address] [address] [address] Kirk García AST [Catalytic activity/Vol] 14 U/L Critically low 15-37 [facility] Comment on above: Performed By: #### C MP #### [facility] [address] [address] [address] Kirk García Bilirubin [Mass/Vol] 0.9 mg/dL Normal 0.2-1.0 [facility] Comment on above: Performed By: #### C MP #### [facility] [address] [address] [address] Kirk García Calcium [Mass/Vol] 9.3 mg/dL Normal 8.5-10.1 [facility] Comment on above: Performed By: #### C MP #### [facility] [address] [address] [address] Kirk García Chloride [Moles/Vol] 100 mmol/L Normal 98-107 [facility] Comment on above: Performed By: #### C MP #### [facility] [address] [address] [address] Kirk García CO2 [Moles/Vol] 33.1 mmol/L Critically high 21.0-32.0 [facility] Comment on above: Performed By: #### C MP #### [facility] [address] [address] [address] Kirk García Creatinine [Mass/Vol] 1.56 mg/dL Critically high 0.70-1.30 [facility] Comment on above: Performed By: #### C MP #### [facility] [address] [address] [address] Kirk García EGFR-AF NIGERIEN 51 mL/min/1.73m2 Critically low >=60 [facility] Comment on above: Performed By: #### C MP #### [facility] [address] [address] [address] Kirk García EGFR-NON AF NIGERIEN 42 mL/min/1.73m2 Critically low >=60 [facility] Comment on above: Performed By: #### C MP #### [facility] [address] [address] [address] Kirk García Globulin (S) [Mass/Vol] 3.7 g/dL Normal [facility] Comment on above: Performed By: #### C MP #### [facility] [address] [address] [address] Kirk García Glucose [Mass/Vol] 107 mg/dL Critically high 74-106 [facility] Comment on above: Performed By: #### C MP #### [facility] [address] [address] [address] Kirk García Potassium [Moles/Vol] 5.3 mmol/L Critically high 3.5-5.1 [facility] Comment on above: Performed By: #### C MP #### [facility] [address] [address] [address] Kirk García Protein [Mass/Vol] 6.7 g/dL Normal 6.4-8.2 [facility] Comment on above: Performed By: #### C MP #### [facility] [address] [address] [address] Kirk García Sodium [Moles/Vol] 136 mmol/L Normal 136-145 [facility] Comment on above: Performed By: #### C MP #### [facility] [address] [address] [address] Kirk García Urea nitrogen [Mass/Vol] 50.0 mg/dL Critically high 7.0-18.0 [facility] Comment on above: Performed By: #### C MP #### [facility] [address] [address] [address] Kirk García Urea nitrogen/Creatinine [Mass ratio] 32.1 mg/mg Normal [facility] Comment on above: Performed By: #### C MP #### [facility] [address] [address] [address] Kirk García CULTURE URINEon 08-14-2022 CULTURE URINE Culture Observations: NO GROWTH. Normal [facility] Comment on above: Performed By: #### U MICRO, ERUR #### [facility] [address] [address] [address] Kirk García ER URINE PROFILEon 2 Bilirubin Ql (U) Negative Normal NEGATIVE [facility] Comment on above: Performed By: #### U MICRO, ERUR #### [facility] [address] [address] [address] Kirk García Clarity (U) CLEAR Normal CLEAR [facility] Comment on above: Performed By: #### U MICRO, ERUR #### [facility] [address] [place] [address] Dr. Kirk García Color (U) ORANGE Abnormal YELLOW [facility] Comment on above: Performed By: #### U MICRO, ERUR #### [facility] [address] [place] [address] Dr. Kirk García ERUAHD A micrscopic examination will be performed if indicated. Normal [facility] Comment on above: Performed By: #### U MICRO, ERUR #### [facility] [address] [address] [address] Kirk García Glucose Ql (U) Negative Normal NEGATIVE [facility] Comment on above: Performed By: #### U MICRO, ERUR #### [facility] [address] [address] [address] Kirk García Hemoglobin Ql (U) LARGE Abnormal NEGATIVE [facility] Comment on above: Performed By: #### U MICRO, ERUR #### [facility] [address] [address] [address] Kirk García Ketones Ql (U) TRACE Abnormal NEGATIVE [facility] Comment on above: Performed By: #### U MICRO, ERUR #### [facility] [address] [address] [address] Kirk García LEUKOCYTES MODERATE Abnormal NEGATIVE [facility] Comment on above: Performed By: #### U MICRO, ERUR #### [facility] [address] [address] [address] Kirk García Nitrite Ql (U) Negative Normal NEGATIVE [facility] Comment on above: Performed By: #### U MICRO, ERUR #### [facility] [address] [address] [address] Kirk García pH (U) 5.5 [pH] Normal 5-9 [facility] Comment on above: Performed By: #### U MICRO, ERUR #### [facility] [address] [address] [address] Kirk García Protein (U) [Mass/Vol] 100 mg/dL Abnormal NEGAT DANYELL/ TRACE [facility] Comment on above: Performed By: #### U MICRO, ERUR #### [facility] [address] [place] [address] Dr. Kirk García SPEC GRAVITY 1.025 Normal 1.005-<=1.[address] [place] [address] Comment on above: Performed By: #### U MICRO, ERUR #### [facility] [address] [address] [address] Kirk García UR MICRO IND INDICATED Normal [facility] Comment on above: Performed By: #### U MICRO, ERUR #### [facility] [address] [place] [address] Dr. Kirk García Urobilinogen Qn (U) 1.0 {Ryan'U}/dL Normal 0.2 - 1. 0 [facility] Comment on above: Performed By: #### U MICRO, ERUR #### [facility] [address] [address] [address] Kirk García URINE MICROSCOPIC ONLYon BACTERIA SMALL Abnormal NONE SEEN [facility] Comment on above: Performed By: #### U MICRO, ERUR #### [facility] [address] [place] [address] Dr. Kirk García Bacteria identified Cx Nom (U) INDICATED Normal [facility] Comment on above: Performed By: #### U MICRO, ERUR #### [facility] [address] [address] [address] Kirk García CAST NONE SEEN Normal NONE SEEN [facility] Comment on above: Performed By: #### U MICRO, ERUR #### [facility] [address] [address] [address] Kirk García Crystals LM Nom (Urine sed) NONE SEEN Normal NONE SEEN [facility] Comment on above: Performed By: #### U MICRO, ERUR #### [facility] [address] [place] [address] Dr. Kirk García Epithelial cells LM Ql (Urine sed) RARE Normal NONE SEEN /RARE [facility] Comment on above: Performed By: #### U MICRO, ERUR #### [facility] [address] [place] [address] Dr. Kirk García MUCOUS NONE SEEN Normal NONE SEEN [facility] Comment on above: Performed By: #### U MICRO, ERUR #### [facility] [address] [address] [address] Kirk García RBC 75-100 Abnormal 0-2 [facility] Comment on above: Performed By: #### U MICRO, ERUR #### [facility] [address] [place] [address] Dr. Kirk García WBC 50-75 Abnormal NONE SEEN [facility] Comment on above: Performed By: #### U MICRO, ERUR #### [facility] [address] [place] [address] Dr. Kirk García XR KNEE WILBER 4V [...] ANA DALAL Date: 2022-08-14 21:09 Normal [facility] CBC W MANUAL DIFFon 08-04-20 22 ATYPICAL LYMPH # Normal [facility] Comment on above: Performed By: #### C BCMAN #### [facility] [address] [place] [address] Dr. Kirk García ATYPICAL LYMPH % Normal [facility] Comment on above: Performed By: #### C BCMAN #### [facility] [address] [address] [address] Kirk García BAND # 0.0 103/ul Normal 0.0-0.3 [facility] Comment on above: Performed By: #### C BCMAN #### [facility] [address] [place] [address] Dr. Kirk García BAND % 1 % Normal 0-5 [facility] Comment on above: Performed By: #### C BCLEILA #### [facility] [address] [place] [address] Dr. Kirk García BASOM # 0.00 103/ul Normal 0.00-0.10 [facility] Comment on above: Performed By: #### C BCLEILA #### [facility] [address] [place] [address] Dr. Kirk García BASOM % 0.0 % Critically low 0.2-2.0 [facility] Comment on above: Performed By: #### C BCLEILA #### [facility] [address] [place] [address] Dr. Kirk García BLAST # Normal [facility] Comment on above: Performed By: #### C CHRISTOPHER #### [facility] [address] [place] [address] Dr. Kirk García BLAST % Normal [facility] Comment on above: Performed By: #### C CHRISTOPHER #### [facility] [address] [place] [address] Dr. Kirk García CORRECTED WBC Normal 4.0-11.0 [facility] Comment on above: Performed By: #### C BCLEILA #### [facility] [address] [place] [address] Dr. Kirk García EOS # 0.00 103/ul Normal 0.00-0.70 [facility] Comment on above: Performed By: #### C BCMAN #### [facility] [address] [address] [address] Kirk García EOS% 0.0 % Critically low 0.9-7.0 [facility] Comment on above: Performed By: #### C BCMAN #### [facility] [address] [address] [address] Kirk García HCT 31.0 % Critically low 42.0-54.0 [facility] Comment on above: Performed By: #### C BCMAN #### [facility] [address] [address] [address] Kirk García HGB 10.5 g/dl Critically low 14.0-18.0 [facility] Comment on above: Performed By: #### C BCLEILA #### [facility] [address] [address] [address] Kirk García LYMPHM # 0.31 103/ul Critically low 1.20-3.80 [facility] Comment on above: Performed By: #### C BCLEILA #### [facility] [address] [address] [address] Kirk García LYMPHM% 11.0 % Critically low 20.5-60.0 [facility] Comment on above: Performed By: #### C BCLEILA #### [facility] [address] [address] [address] Kirk García MCH 34.2 pg Critically high 25.9-34.0 [facility] Comment on above: Performed By: #### C BCLEILA #### [facility] [address] [address] [address] Kirk García MCHC 33.9 g/dl Normal 29.9-35.2 [facility] Comment on above: Performed By: #### C BCMAN #### [facility] [address] [address] [address] Kirk García MCV 101.0 fL Critically high 80.0-94.0 [facility] Comment on above: Performed By: #### C CHRISTOPHER #### [facility] [address] [address] [address] Kirk García METAMYELOCYTE # 0.1 103/ul Normal [facility] Comment on above: Performed By: #### C CHRISTOPHER #### [facility] [address] [address] [address] Kirk García METAMYELOCYTE % 2 % Normal [facility] Comment on above: Performed By: #### C CHRISTOPHER #### [facility] [address] [place] [address] Dr. Kirk García MONOM# 0.03 103/ul Critically low 0.30-0.80 [facility] Comment on above: Performed By: #### C CHRISTOPHER #### [facility] [address] [place] [address] Dr. Kirk García MONOM% 1.0 % Critically low 1.7-12.0 [facility] Comment on above: Performed By: #### C CHRISTOPHER #### [facility] [address] [place] [address] Dr. Kirk García MPV 10.7 fL Normal 9.5-13.5 [facility] Comment on above: Performed By: #### C CHRISTOPHER #### [facility] [address] [place] [address] Dr. Kirk García MYELOCYTE # 0.0 103/ul Normal [facility] Comment on above: Performed By: #### C CHRISTOPHER #### [facility] [address] [place] [address] Dr. Kirk García MYELOCYTE % 1 % Normal [facility] Comment on above: Performed By: #### C CHRISTOPHER #### [facility] [address] [place] [address] Dr. Kirk García NRBC Normal [facility] Comment on above: Performed By: #### C CHRISTOPHER #### [facility] [address] [place] [address] Dr. Kirk García PLT 84 103/ul Critically low 150-[address] [facility] Comment on above: Performed By: #### C CHRISTOPHER #### [facility] [address] [address] [address] Kirk García RBC 3.07 106/ul Critically low 4.70-6.10 [facility] Comment on above: Performed By: #### C CHRISTOPHER #### [facility] [address] [address] [address] Kirk García RDW 13.3 % Normal 11.0-15.0 [facility] Comment on above: Performed By: #### C CHRISTOPHER #### [facility] [address] [address] [address] Kirk García SEG # 2.35 103/ul Normal 1.40-6.50 [facility] Comment on above: Performed By: #### C CHRISTOPHER #### [facility] [address] [place] [address] Dr. Kirk García SEG % 84.0 % Critically high 43.0-75.0 [facility] Comment on above: Performed By: #### C CHRISTOPHER #### [facility] [address] [address] [address] Kirk García WBC 2.8 103/ul Critically low 4.0-11.0 [facility] Comment on above: Performed By: #### C CHRISTOPHER #### [facility] [address] [place] [address] Dr. Kirk García PROF CHEM 8 (BAS METB)on Anion gap [Moles/Vol] 9.9 mmol/L Normal [facility] Comment on above: Performed By: #### U MICRO, ERUR #### [facility] [address] [address] [address] Kirk García Calcium [Mass/Vol] 7.4 mg/dL Critically low 8.5-10.1 [facility] Comment on above: Performed By: #### U MICRO, ERUR #### [facility] [address] [address] [address] Kirk García Chloride [Moles/Vol] 100 mmol/L Normal 98-107 [facility] Comment on above: Performed By: #### U MICRO, ERUR #### [facility] [address] [address] [address] Kirk García CO2 [Moles/Vol] 23.8 mmol/L Normal 21.0-32.0 [facility] Comment on above: Performed By: #### U MICRO, ERUR #### [facility] [address] [address] [address] Kirk García Creatinine [Mass/Vol] 1.43 mg/dL Critically high 0.70-1.30 [facility] Comment on above: Performed By: #### U MICRO, ERUR #### [facility] [address] [address] [address] Kirk García EGFR-AF NIGERIEN 57 mL/min/1.73m2 Critically low >=60 [facility] Comment on above: Performed By: #### U MICRO, ERUR #### [facility] [address] [address] [address] Kirk García EGFR-NON AF NIGERIEN 47 mL/min/1.73m2 Critically low >=60 [facility] Comment on above: Performed By: #### U MICRO, ERUR #### [facility] [address] [address] [address] Kirk García Glucose [Mass/Vol] 148 mg/dL Critically high 74-106 [facility] Comment on above: Performed By: #### U MICRO, ERUR #### [facility] [address] [address] [address] Kirk García Potassium [Moles/Vol] 4.7 mmol/L Normal 3.5-5.1 [facility] Comment on above: Performed By: #### U MICRO, ERUR #### [facility] [address] [address] [address] Kirk García Sodium [Moles/Vol] 129 mmol/L Critically low 136-145 [facility] Comment on above: Performed By: #### U MICRO, ERUR #### [facility] [address] [address] [address] Kirk García Urea nitrogen [Mass/Vol] 42.0 mg/dL Critically high 7.0-18.0 [facility] Comment on above: Performed By: #### U MICRO, ERUR #### [facility] [address] [place] [address] Dr. Kirk García Urea nitrogen/Creatinine [Mass ratio] 29.4 mg/mg Normal [facility] Comment on above: Performed By: #### U MICRO, ERUR #### [facility] [address] [place] [address] Dr. Kirk García CBC AUTO DIFFon 08-03-2022 BASO # 0.0 103/ul Normal 0.0-0.1 [facility] Comment on above: Performed By: #### C BC #### [facility] [address] [place] [address] Dr. Kirk García Basophils/100 WBC (Bld) 0.0 % Critically low 0.2-2.0 [facility] Comment on above: Performed By: #### C BC #### [facility] [address] [place] [address] Dr. Kirk García EO # 0.0 103/ul Normal 0.0-0.7 [facility] Comment on above: Performed By: #### C BC #### [facility] [address] [place] [address] Dr. Kirk García Eosinophils/100 WBC (Bld) 0.2 % Critically low 0.9-7.0 [facility] Comment on above: Performed By: #### C BC #### [facility] [address] [place] [address] Dr. Kirk García Erythrocyte distribution width (RBC) [Ratio] 13.7 % Normal 11.0-15.0 [facility] Comment on above: Performed By: #### C BC #### [facility] [address] [place] [address] Dr. Kirk García Hematocrit (Bld) [Volume fraction] 34.3 % Critically low 42.0-54.0 [facility] Comment on above: Performed By: #### C BC #### [facility] [address] [place] [address] Dr. Kirk García Hemoglobin (Bld) [Mass/Vol] 11.8 g/dL Critically low 14.0-18.0 [facility] Comment on above: Performed By: #### C BC #### [facility] [address] [place] [address] Dr. Kirk García IG # 0.02 10e3/ul Normal 0.00-0.03 [facility] Comment on above: Performed By: #### C BC #### [facility] [address] [place] [address] Dr. Kirk García IG % 0.4 % Normal 0.0-0.5 [facility] Comment on above: Performed By: #### C BC #### [facility] [address] [place] [address] Dr. Kirk García LYMPH # 0.9 103/ul Critically low 1.2-3.8 [facility] Comment on above: Performed By: #### C BC #### [facility] [address] [place] [address] Dr. Kirk García Lymphocytes/100 WBC (Bld) 16.5 % Critically low 20.5-60.0 [facility] Comment on above: Performed By: #### C BC #### [facility] [address] [place] [address] Dr. Kirk García MANUAL DIFF REQ NO Normal [facility] Comment on above: Performed By: #### C BC #### [facility] [address] [place] [address] Dr. Kirk García MCH (RBC) [Entitic mass] 34.4 pg Critically high 25.9-34.0 [facility] Comment on above: Performed By: #### C BC #### [facility] [address] [place] [address] Dr. Kirk García MCHC (RBC) [Mass/Vol] 34.4 g/dL Normal 29.9-35.2 [facility] Comment on above: Performed By: #### C BC #### [facility] [address] [place] [address] Dr. Kirk García MCV (RBC) [Entitic vol] 100.0 fL Critically high 80.0-94.0 [facility] Comment on above: Performed By: #### C BC #### [facility] [address] [place] [address] Dr. Kirk García MONO # 1.2 103/ul Critically high 0.3-0.8 [facility] Comment on above: Performed By: #### C BC #### [facility] [address] [place] [address] Dr. Kirk García Monocytes/100 WBC (Bld) 22.3 % Critically high 1.7-12.0 [facility] Comment on above: Performed By: #### C BC #### [facility] [address] [place] [address] Dr. Kirk García NEUT # 3.4 103/ul Normal 1.4-6.5 [facility] Comment on above: Performed By: #### C BC #### [facility] [address] [place] [address] Dr. Kirk García Neutrophils/100 WBC (Bld) 60.6 % Normal 43.0-75.0 [facility] Comment on above: Performed By: #### C BC #### [facility] [address] [place] [address] Dr. Kirk García Platelet mean volume (Bld) [Entitic vol] 11.6 fL Normal 9.5-13.5 [facility] Comment on above: Performed By: #### C BC #### [facility] [address] [place] [address] Dr. Kirk García PLT 99 103/ul Critically low 150-[address] [facility] Comment on above: Performed By: #### C BC #### [facility] [address] [place], [place] [id number] Dr. Kirk García RBC 3.43 106/ul Critically low 4.70-6.10 [facility] Comment on above: Performed By: #### C BC #### [facility] [address] [place] [address] Dr. Kirk García WBC 5.5 103/ul Normal 4.0-11.0 [facility] Comment on above: Performed By: #### C BC #### [facility] [address] [address] [address] Kirk García CULTURE BLOODon 08-03-2022 Microscopic examination of blood, culture Culture Observations: NO GROWTH AT 5 DAYS. Normal [facility] Comment on above: Performed By: #### U MICRO, ERUR #### [facility] [address] [address] [address] Kirk García Microscopic examination of blood, culture Culture Observations: NO GROWTH AT 5 DAYS. Normal [facility] Comment on above: Performed By: #### U MICRO, ERUR #### [facility] [address] [place] [address] Dr. Kirk García Covid-19 PCR (CVDTB)on SARS-CoV-2 (COVID-19) RNA SANAZ+probe Ql (Unsp spec) Detected Critically abnormal NOT DETECTED [facility] Comment on above: Result Comment: This test is not yet approved or cleared by the [place] FDA. When there are no FDA-approved or cleared tests available, and other criteria are met, FDA can make tests available under an emergency access mechanism called an Emergency Use Authorization (EUA). The EUA for this test is supported by the Curriculum Assistant of Health and Human Service's declaration that [...] used). Performed By: #### C VDTBH #### [facility] [address] [place] [address] Dr. Kirk García GROUP A STREP CULTUREon S. pyogenes Ag Ql (Unsp spec) Culture Observations: NEGATIVE FOR GROUP A STREPTOCOCCUS. Normal [facility] Comment on above: Performed By: #### U MICRO, ERUR #### [facility] [address] [place] [address] Dr. Kirk García PROF 14(COMP METB)on 022 Albumin [Mass/Vol] 3.0 g/dL Critically low 3.4-5.0 [facility] Comment on above: Performed By: #### C MP #### [facility] [address] [place] [address] Dr. Kirk García Albumin/Globulin [Mass ratio] 0.7 {ratio} Normal [facility] Comment on above: Performed By: #### C MP #### [facility] [address] [place] [address] Dr. Kirk García ALP [Catalytic activity/Vol] 76 U/L Normal 46-116 [facility] Comment on above: Performed By: #### C MP #### [facility] [address] [place] [address] Dr. Kirk García ALT [Catalytic activity/Vol] 27 U/L Normal 16-63 [facility] Comment on above: Performed By: #### C MP #### [facility] [address] [place] [address] Dr. Kirk García Anion gap [Moles/Vol] 8.9 mmol/L Normal [facility] Comment on above: Performed By: #### C MP #### [facility] [address] [place] [address] Dr. Kirk García AST [Catalytic activity/Vol] 17 U/L Normal 15-37 [facility] Comment on above: Performed By: #### C MP #### [facility] [address] [place] [address] Dr. Kirk García Bilirubin [Mass/Vol] 1.3 mg/dL Critically high 0.2-1.0 [facility] Comment on above: Performed By: #### C MP #### [facility] [address] [place] [address] Dr. Kirk García Calcium [Mass/Vol] 8.1 mg/dL Critically low 8.5-10.1 [facility] Comment on above: Performed By: #### C MP #### [facility] [address] [place] [address] Dr. Kirk García Chloride [Moles/Vol] 94 mmol/L Critically low 98-107 [facility] Comment on above: Performed By: #### C MP #### [facility] [address] [place] [address] Dr. Kirk García CO2 [Moles/Vol] 27.5 mmol/L Normal 21.0-32.0 [facility] Comment on above: Performed By: #### C MP #### [facility] [address] [place] [address] Dr. Kirk García Creatinine [Mass/Vol] 1.65 mg/dL Critically high 0.70-1.30 [facility] Comment on above: Performed By: #### C MP #### [facility] [address] [place] [address] Dr. Kirk García EGFR-AF NIGERIEN 48 mL/min/1.73m2 Critically low >=60 [facility] Comment on above: Performed By: #### C MP #### [facility] [address] [place] [address] Dr. Kirk García EGFR-NON AF NIGERIEN 40 mL/min/1.73m2 Critically low >=60 [facility] Comment on above: Performed By: #### C MP #### [facility] [address] [place] [address] Dr. Kirk García Globulin (S) [Mass/Vol] 4.5 g/dL Normal [facility] Comment on above: Performed By: #### C MP #### [facility] [address] [place] [address] Dr. Kirk García Glucose [Mass/Vol] 118 mg/dL Critically high 74-106 [facility] Comment on above: Performed By: #### C MP #### [facility] [address] [address] [address] Kirk García Potassium [Moles/Vol] 4.4 mmol/L Normal 3.5-5.1 [facility] Comment on above: Performed By: #### C MP #### [facility] [address] [place] [address] Dr. Kirk García Protein [Mass/Vol] 7.5 g/dL Normal 6.4-8.2 [facility] Comment on above: Performed By: #### C MP #### [facility] [address] [address] [address] Kirk García Sodium [Moles/Vol] 126 mmol/L Critically low 136-145 Th [facility] Comment on above: Performed By: #### C MP #### [facility] [address] [address] [address] Kirk García Urea nitrogen [Mass/Vol] 36.0 mg/dL Critically high 7.0-18.0 [facility] Comment on above: Performed By: #### C MP #### [facility] [address] [address] [address] Kirk García Urea nitrogen/Creatinine [Mass ratio] 21.8 mg/mg Normal [facility] Comment on above: Performed By: #### C MP #### [facility] [address] [address] [address] Kirk García STREPT SCREENon 08-03-2022 STREP SCREEN A Negative Normal NEGATIVE [facility] Comment on above: Performed By: #### U MICRO, ERUR #### [facility] [address] [address] [address] Kirk García XR CHEST 1 Von [...] by: MILAGROS REEDER Date: 2022-08-03 12:55 Normal [facility] CBC AUTO DIFFon 07-08-2022 BASO # 0.0 103/ul Normal 0.0-0.1 [facility] Comment on above: Performed By: #### C BC #### [facility] [address] [address] [address] Kirk García Basophils/100 WBC (Bld) 0.5 % Normal 0.2-2.0 [facility] Comment on above: Performed By: #### C BC #### [facility] [address] [address] [address] Kirk García EO # 0.1 103/ul Normal 0.0-0.7 [facility] Comment on above: Performed By: #### C BC #### [facility] [address] [address] [address] Kirk García Eosinophils/100 WBC (Bld) 1.4 % Normal 0.9-7.0 [facility] Comment on above: Performed By: #### C BC #### [facility] [address] [place] [address] Dr. Kirk García Erythrocyte distribution width (RBC) [Ratio] 13.4 % Normal 11.0-15.0 [facility] Comment on above: Performed By: #### C BC #### [facility] [address] [place] [address] Dr. Kirk García Hematocrit (Bld) [Volume fraction] 39.6 % Critically low 42.0-54.0 [facility] Comment on above: Performed By: #### C BC #### [facility] [address] [place] [address] Dr. Kirk García Hemoglobin (Bld) [Mass/Vol] 13.2 g/dL Critically low 14.0-18.0 [facility] Comment on above: Performed By: #### C BC #### [facility] [address] [place] [address] Dr. Kirk García IG # 0.02 10e3/ul Normal 0.00-0.03 [facility] Comment on above: Performed By: #### C BC #### [facility] [address] [address] [address] Kirk García IG % 0.3 % Normal 0.0-0.5 [facility] Comment on above: Performed By: #### C BC #### [facility] [address] [address] [address] Kirk García LYMPH # 1.7 103/ul Normal 1.2-3.8 [facility] Comment on above: Performed By: #### C BC #### [facility] [address] [place] [address] Dr. Kirk García Lymphocytes/100 WBC (Bld) 28.7 % Normal 20.5-60.0 [facility] Comment on above: Performed By: #### C BC #### [facility] [address] [place] [address] Dr. Kirk García MANUAL DIFF REQ NO Normal [facility] Comment on above: Performed By: #### C BC #### [facility] [address] [place] [address] Dr. Kirk García MCH (RBC) [Entitic mass] 34.4 pg Critically high 25.9-34.0 [facility] Comment on above: Performed By: #### C BC #### [facility] [address] [place] [address] Dr. Kirk García MCHC (RBC) [Mass/Vol] 33.3 g/dL Normal 29.9-35.2 [facility] Comment on above: Performed By: #### C BC #### [facility] [address] [place] [address] Dr. Kirk García MCV (RBC) [Entitic vol] 103.1 fL Critically high 80.0-94.0 [facility] Comment on above: Performed By: #### C BC #### [facility] [address] [place] [address] Dr. Kirk García MONO # 0.9 103/ul Critically high 0.3-0.8 [facility] Comment on above: Performed By: #### C BC #### [facility] [address] [place] [address] Dr. Kirk García Monocytes/100 WBC (Bld) 15.8 % Critically high 1.7-12.0 [facility] Comment on above: Performed By: #### C BC #### [facility] [address] [address] [address] Kirk García NEUT # 3.1 103/ul Normal 1.4-6.5 [facility] Comment on above: Performed By: #### C BC #### [facility] [address] [address] [address] Kirk García Neutrophils/100 WBC (Bld) 53.3 % Normal 43.0-75.0 [facility] Comment on above: Performed By: #### C BC #### [facility] [address] [place] [address] Dr. Kirk García Platelet mean volume (Bld) [Entitic vol] 10.6 fL Normal 9.5-13.5 [facility] Comment on above: Performed By: #### C BC #### [facility] [address] [place] [address] Dr. Kirk García PLT 147 103/ul Critically low 150-450 [facility] Comment on above: Performed By: #### C BC #### [facility] [address] [place] [address] Dr. Kirk García RBC 3.84 106/ul Critically low 4.70-6.10 [facility] Comment on above: Performed By: #### C BC #### [facility] [address] [place] [address] Dr. Kirk García WBC 5.9 103/ul Normal 4.0-11.0 [facility] Comment on above: Performed By: #### C BC #### [facility] [address] [place] [address] Dr. Kirk García DIGOXINon 07-08-2022 DIG 1.1 ng/mL Normal 0.9-2.0 [facility] Comment on above: Performed By: #### U MICRO, ERUR #### [facility] [address] [place] [address] Dr. Kirk García PROF CHEM 8 (BAS METB)on Anion gap [Moles/Vol] 13.6 mmol/L Normal [facility] Comment on above: Performed By: #### U MICRO, ERUR #### [facility] [address] [address] [address] Kirk García Calcium [Mass/Vol] 9.5 mg/dL Normal 8.5-10.1 [facility] Comment on above: Performed By: #### U MICRO, ERUR #### [facility] [address] [address] [address] Kirk García Chloride [Moles/Vol] 97 mmol/L Critically low 98-107 [facility] Comment on above: Performed By: #### U MICRO, ERUR #### [facility] [address] [address] [address] Kirk García CO2 [Moles/Vol] 28.8 mmol/L Normal 21.0-32.0 [facility] Comment on above: Performed By: #### U MICRO, ERUR #### [facility] [address] [address] [address] Kirk García Creatinine [Mass/Vol] 1.43 mg/dL Critically high 0.70-1.30 [facility] Comment on above: Performed By: #### U MICRO, ERUR #### [facility] [address] [address] [address] Kirk García EGFR-AF NIGERIEN 57 mL/min/1.73m2 Critically low >=60 [facility] Comment on above: Performed By: #### U MICRO, ERUR #### [facility] [address] [address] [address] Kirk García EGFR-NON AF NIGERIEN 47 mL/min/1.73m2 Critically low >=60 [facility] Comment on above: Performed By: #### U MICRO, ERUR #### [facility] [address] [place] [address] Dr. Kirk García Glucose [Mass/Vol] 99 mg/dL Normal 74-106 [facility] Comment on above: Performed By: #### U MICRO, ERUR #### [facility] [address] [address] [address] Kirk García Potassium [Moles/Vol] 4.4 mmol/L Normal 3.5-5.1 [facility] Comment on above: Performed By: #### U MICRO, ERUR #### [facility] [address] [address] [address] Kirk García Sodium [Moles/Vol] 135 mmol/L Critically low 136-145 [facility] Comment on above: Performed By: #### U MICRO, ERUR #### [facility] [address] [address] [address] Kirk García Urea nitrogen [Mass/Vol] 29.0 mg/dL Critically high 7.0-18.0 [facility] Comment on above: Performed By: #### U MICRO, ERUR #### [facility] [address] [address] [address] Kirk García Urea nitrogen/Creatinine [Mass ratio] 20.3 mg/mg Normal [facility] Comment on above: Performed By: #### U MICRO, ERUR #### [facility] [address] [place] [address] Dr. Kirk García Patient Educationon 03-16-20 Patient [...] Are older than age 65. ? Are -Latvian. ? Are obese. ? Have a family [...] Follow these instructions at home: ? Take june-dlu-ywrfbpq and prescription medicines only as told by [...] E&M of Est. Patient Moderate 30-39 Min 36893 Measure Post Void residual urine and/or bladder capacity by US- non-imaging 25199 Urnls Dip Stick Auto w/o Microscopy POC 10900 2. History of prostate cancer (Z85.46: Personal history of malignant neoplasm of prostate) s/p brachytherapy in 2004. PSA remained very low. pt decided to have PCP do annual monitoring when he saw PRW March 2021. Ordered: E&M of Est. Patient Moderate 30-39 Min 93149 Measure Post Void residual urine and/or bladder capacity by US- non-imaging 99801 Urnls Dip Stick Auto w/o Microscopy POC 21232 Orders: oxybutynin, 5 mg = 1 tab(s), Oral, Daily, # 90 tab(s), Refills(s) 3, Pharmacy: [facility], 183, cm, 03/16/22 9:10:00 EDT, Height/Length Dosing, 99.3, kg, 03/16/22 9:10:00 EDT, Weight Dosing Follow-up With When Contact Information KENNETH SHEPARD, MARYBETH Trivedi, URL Within 6 months [address] [place] [address] [facility] (1) Additional Instructions: Patient Education Prostate Cancer 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 Cholecystitis Gross hematuria History of prostate cancer Hyperlipidemia Hypertension [facility] current use of antithrombotics/anti platelets Post-void dribbling [...] Are older than age 65. ? Are -Latvian. ? Are obese. ? Have a family [...] Follow these instructions at home: ? Take njae-cxx-xeletph and prescription medicines only as told by [...] worsen Ordered: Office Visit Level 4 Est 95211 2. History of prostate cancer (Z85.46: Personal history of malignant neoplasm of prostate) s/p brachytherapy in 2004. PSA remained very low. pt decided to have PCP do annual monitoring when he saw PRW at last visit March 2021. Ordered: Office Visit Level 4 Est 99800 Orders: Urnls Dip Stick Auto w/o Microscopy POC 79701 Total time spent reviewing previous notes/results/pot puller al documents, preparing the chart, conducting the encounter with the patient and family, ordering tests/medications, and documenting the encounter was 40 minutes. Follow-up With When Contact Information PRN Additional Instructions: Patient Education Prostate Cancer 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 Cholecystitis Gross hematuria History of prostate cancer Hyperlipidemia Hypertension [facility] current use of antithrombotics/anti platelets Post-void dribbling [...] 01/06/22 16:55 EST Le[place] 07-29-2021 MANOJ Telephone (ContactMonkey) SAMSON KELLEY ([id number]) 1935 M Date Time Provider Department 07/29/21 DALILA BALL During your visit today, we recorded the following information about you: Dalila Ball RN 07/29/2021 10:36 AM Signed Spoke with Samson, he is currently still at the hotel and is planning on going to the [facility]. We discussed pain control and did remind patient use of Aleve or Motrin in between narcotics as the narcotics can increase issues with constipation. We did discuss use of Miralax if no Bm by Monday and patients states ME will help him with that. Encouraged to keep up with water intake especially since no appetite today. 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 [2654] Cmt: post-op Prescriptions as of 07/29/2021 - [...] Encounter Status:Closed by DALILA BALL on 07/29/21 [facility] ANES POSTPROC EVALon 021 ANES POSTPROC EVAL HNO ID: [id number] Author: Ramiro Esquivel MD Service: Anesthesiology Author [...] July 28, 2021 TIME: 1:35 PM CSN: [id number] [facility] ANES PRE-OPon 07-28-2021 ANES PRE-OP HNO ID: [id number] Author: Ramiro Esquivel MD Service: Anesthesiology Author [...] 100 mL Vial-Bag (UNASYN) 3 g INTRAVENOUS Hose Mender to OR - [COMPLETED] acetaminophen 1,000 mg [...] July 28, 2021 TIME: 10:17 AM CSN: [id number] [facility] HISTORY PHYSICALon HISTORY PHYSICAL HNO ID: [id number] Author: Jewel Cary III, MD Service: General [...] DATE: July 28, 2021 TIME: 10:16 AM [facility] OPERATIVE NOon 07-28-2021 OPERATIVE NO HNO ID: [id number] Author: Jewel Cary III, MD Service: General Surgery Author Type: Physician Type: Operative Report Filed: 07/28/2021 11:24 AM Note Text: OPERATIVE REPORT LOG ID: [id number] SURGERY/PROCEDURE DATE: 07/28/2021 INCISION/PROCEDURE START TIME: 10:47 AM INCISION CLOSE/PROCEDURE END TIME: 11:24 AM SURGEON: Jewel Cary III, MD ?? MANAGER PLANNING: Monserrat Salazar PA-C? ? OPERATION: Laparoscopic cholecystectomy (47903). ? ANESTHESIA: GETA and 10 mL of [...] July 28, 2021 TIME: 11:22 AM Normal [facility] SURGICAL PATHOLOGYon 021 SURGICAL PATHOLOGY Specimen originated from [facility] Specimen #: [id number] Submitting Physician: JEWEL CARY MD FINAL DIAGNOSIS [...] The mucosa is walker-red, hyperemic, and granular. Tow Boat Captain sections are submitted as follows: A1 cystic duct margin and wall, A2 fundus. SLE/ch 07/28/2021 Gross examination performed at [facility], [facility] [place] [address] Date of Report: 07/29/2021 Date of Procedure: 07/28/2021 Date of Receipt: 07/28/2021 Submitted by: JEWEL CARY MD Location: AV[facility] Diagnostic interpretation performed at [facility], [facility] [place] [address]. CLIA Number: [id number] Normal [facility] Reference Lab Comment on above: Performed By: #### S #### See report for performing lab information. HISTORY PHYSICALon HISTORY PHYSICAL HNO ID: [id number] Author: Denita Simmons PA-C Service: ? Author Type: Physician School Office Assistant Type: HANDP Filed: 07/19/2021 4:18 PM Note [...] prolapse - Mitral valve regurgitation - Thrombocytopenia ([facility]) 12/21/2016 - Trauma 11/14/2016 fell on iced stairs and bruised left thigh and scrotum - Tricuspid valve regurgitation PAST SURGICAL HISTORY Procedure Laterality Date - HEART SURGERY HX 11/2016 mitral and tricuspid valve repair - HERNIA REPAIR HX age 19's - PACEMAKER 2007 - PACEMAKER 01/2021 [employer] placed - PAST SURGICAL HISTORY OF [...] fevers. Neuro: No history of TIA's, stroke, HEART NURSE tumor, impaired sensorium, hemiplegia, paraplegia or quadraplegia. No neurological symptoms or problems. Respiratory: Negative for Asthma, Dyspnea, Tobacco Use, URI < 2 weeks +PND - can rarely trigger cough, but stable, no acute symptoms Cardiovascular: +Pacemaker ([employer]) - A-fib hx, CHB no symptoms +Heart failure - on digoxin, Lasix. Chronic lower extremity edema. +Valve history - s/p Mitral and tricuspid repair 2017 - Dr. Adrianna Geiger - Ra (more content not included)... Normal [facility] CNCFranky 07-13-2021 CNCO Letter Text Normal [facility] [place] 07-13-2021 FEDERICON Telephone (GENSAV) SAMSON KELLEY ([id number]) 1935 M Date Time Provider Department 07/13/21 [...] by routing message back to Angel ROSARIO RESEARCH AND DEVELOPMENT DIRECTOR, prior to notifying the patient. Marybeth Georgi 07/13/2021 1:53 PM Signed Pt seeing Cardi Dr Adrianna Geiger @ [place] [address] Will send clearance to this provider Cat Gibbs 07/15/2021 11:03 AM Signed Cari from Jacki Geiger's office called and asked to have clearance letter fax to [phone]. Thank you. Marybeth Georgi 07/15/2021 11:21 AM [...] Encounter Status:Closed by MARYBETH LAUREANO on 07/13/21 [facility] [place] 07-12-2021 MANOJ Telephone (GENSAV) SAMSON KELLEY ([id number]) 1935 M Date Time Provider Department 07/12/21 JEWEL CARY III GENSAAristeo During your visit today, we recorded the following information about you: Marybeth Laureano 07/13/2021 2:08 PM Addendum Cur received Pt needs cardiac clearance Dr Kody Lynn Tele enct sent Spoke w pt he now sees Dr Adrianna Geiger at [facility]. Letter electronically sent. Marybeth Laureano 07/13/2021 3:25 PM Signed electronic faxed failed printed and sent to verified fax number of [phone]. Confirmed received. Marybeth Laureano 07/19/2021 3:02 PM [...] Status:Closed by MARYBETH LAUREANO on 07/19/21 Normal [facility] HISTORY PHYSICALon HISTORY PHYSICAL HNO ID: [id number] Author: Jewel Cary III, MD Service: ? [...] for internal providers or letter via the [place] [employer] for external providers. HISTORY: He [...] stored in (more content not included)... Normal [facility] OPERATIVE REPORTon OPERATIVE REPORT NAME: SAMSON KELLEY MR#: [id number] SURGEON: Adrianna Geiger MD DATE OF SURGERY: 02/01/2021 OPERATIVE REPORT PREOPERATIVE DIAGNOSIS: End of life pacemaker pulse generator. POSTOPERATIVE DIAGNOSIS: End of life pacemaker pulse generator. PROCEDURE: Change out of end of life pacemaker pulse generator. 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 The new pulse generator is a [employer] Accolade MRI safe pacemaker, model #L311 serial #[id number]. The pulse generator was attached to the [...] of the day today. ADRIANNA GEIGER MD [facility]/[id number] E/S: Adrianna Geiger MD 02/08/21 0856 Electronically Signed [facility] PT NAME: SAMSON KELLEY MR#: [id number] [address] [place] [address] ACCT: [id number] : [birth year] OPERATIVE REPORT Normal [facility] SURGon 02-01-2021 SURG Normal [facility] Comment on above: Result Comment: RUN DATE: 02/02/21 [facility] LAB *LIVE* PAGE 1RUN TIME: 1351 Specimen InquiryRUN USER: Allocadia Name: SAMSON KELLEY : [birth year] Sex:M Attend Dr: Adrianna Geiger [facility]#: [id number] Unit#: [id number] Status: [facility] Location: ANA MARIA ErisS17-01 Received: 02/01/21 Status: PRIYANKA Saravia#: [id number]#: [id number] Collected: 02/01/21-[address] [facility] [address]: Adrianna Geiger MDTISSHARANES: A. EXPLANTED HARDWARE MICROSCOPIC EXAM: N/A DIAGNOSIS: EXPLANTED HARDWARE, REMOVAL: - PULSE GENERATOR (GROSS DIAGNOSIS ONLY) Signed Signature on File KT SCHAFER 02/02/[address] [facility] Name: SAMSON KELLEY [facility] Hosp Num: [id number] A Ministry of Age / Sex: 85/M [facility] Physician: Adrianna Geiger MD [address] [address] Location: SAME DAY SURGERY END OF REPORT Performed By: #### P SURG ####Test performed at: [facility] [address] [address] Vital Signs Date Time Vital Sign Value Performing Clinician Facility 01-16-2024 11:34-0500 Body height 182.88 cm [facility] 01-16-2024 11:34-0500 Body mass index (BMI) [Ratio] 28.5 kg/m2 [facility] 01-16-2024 11:34-0500 Body weight 95.48 kg [facility] 01-16-2024 11:34-0500 Diastolic blood pressure 62 mm[Hg] [facility] 01-16-2024 11:34-0500 Heart rate 82 /min [facility] 01-16-2024 11:34-0500 Respiratory rate 20 /min [facility] 01-16-2024 11:34-0500 Systolic blood pressure 102 mm[Hg] [facility] 12-08-2023 11:30-0500 Body height 182.88 cm [facility] 12-08-2023 11:30-0500 Body weight 94.16 kg [facility] 12-08-2023 11:30-0500 Diastolic blood pressure 74 mm[Hg] [facility] 12-08-2023 11:30-0500 Systolic blood pressure 115 mm[Hg] [facility] 11-22-2023 10:00-0500 Body height 182.88 cm Timo Ball Other [facility] 11-22-2023 10:00-0500 Body mass index (BMI) [Ratio] 28.67 kg/m2 Timo Ball Other [facility] [employer] Other 11-22-2023 10:00-0500 Body weight 95.89 kg Timo Ball Other [facility] Other 11-22-2023 10:00-0500 Body weight 95.88 kg [facility] 11-22-2023 10:00-0500 Diastolic blood pressure 64 mm[Hg] Timo Ball Other [facility] 11-22-2023 10:00-0500 Respiratory rate 16 /min Timo Ball Other [facility] [employer] Other 11-22-2023 10:00-0500 SaO2% (BldA) [Mass fraction] 95 % Timo Ball Other [facility] [employer] Other 11-22-2023 10:00-0500 Systolic blood pressure 102 mm[Hg] Timo Ball Other [facility] 10-03-2023 13:45-0500 Body height 182.88 cm Timo Ball Other [employer] Other 10-03-2023 13:45-0500 Body mass index (BMI) [Ratio] 29.02 kg/m2 Timo Ball Other [facility] Other 10-03-2023 13:45-0500 Body weight 97.07 kg Timo Ball Other [employer] Other 10-03-2023 13:45-0500 Diastolic blood pressure 67 mm[Hg] Timo Ball Other [employer] Other 10-03-2023 13:45-0500 Respiratory rate 16 /min Timo Ball Other [facility] Other 10-03-2023 13:45-0500 Systolic blood pressure 106 mm[Hg] Timo Ball Other [facility] Other 09-29-2023 13:45-0400 Body height 182.88 cm Timo Ball Other [facility] Other 08-31-2023 11:00-0400 Body height 182.88 cm Timo Ball Other [facility] Other 08-31-2023 11:00-0400 Body mass index (BMI) [Ratio] 28.23 kg/m2 Timo Ball Other [facility] Other 08-31-2023 11:00-0400 Body weight 94.44 kg Timo Ball Other [facility] Other 08-31-2023 11:00-0400 Diastolic blood pressure 61 mm[Hg] Timo Ball Other [facility] Other 08-31-2023 11:00-0400 Respiratory rate 12 /min Timo Ball Other [facility] Other 08-31-2023 11:00-0400 Systolic blood pressure 105 mm[Hg] Timo Ball Other [facility] Other 05-26-2023 11:00-0400 Body height 182.88 cm Timo Ball Other [facility] Other 05-26-2023 11:00-0400 Body mass index (BMI) [Ratio] 28.69 kg/m2 Timo Ball Other [facility] Other 05-26-2023 11:00-0400 Body weight 95.98 kg Timo Ball Other [facility] Other 05-26-2023 11:00-0400 Diastolic blood pressure 66 mm[Hg] Timo Ball Other [facility] Other 05-26-2023 11:00-0400 Respiratory rate 16 /min Timo Ball Other [facility] Other 05-26-2023 11:00-0400 Systolic blood pressure 116 mm[Hg] Timo Ball Other [facility] Other 01-20-2023 11:00-0500 Body height 182.88 cm Timo Ball Other [facility] Other 01-20-2023 11:00-0500 Body mass index (BMI) [Ratio] 28.53 kg/m2 Timo Ball Other [facility] Other 01-20-2023 11:00-0500 Body weight 95.44 kg Timo Ball Other [facility] Other 01-20-2023 11:00-0500 Diastolic blood pressure 64 mm[Hg] Timo Ball Other [facility] Other 01-20-2023 11:00-0500 Respiratory rate 16 /min Timo Ball Other [facility] Other 01-20-2023 11:00-0500 Systolic blood pressure 102 mm[Hg] Timo Ball Other [facility] Other 09-21-2022 12:18-0400 Blood Pressure Location MARYBETH KENNETH [facility] 09-21-2022 12:18-0400 Diastolic blood pressure 58 mm[Hg] MARYBETH KENNETH [facility] 09-21-2022 12:18-0400 Heart rate 80 /min MARYBETH KENNETH [facility] 09-21-2022 12:18-0400 Respiratory rate 16 /min MARYBETH KENNETH [facility] 09-21-2022 12:18-0400 Systolic blood pressure 111 mm[Hg] MARYBETH STANLEY [facility] 03-16-2022 08:49-0400 Blood Pressure Location MARYBETH STANLEY [facility] 03-16-2022 08:49-0400 Diastolic blood pressure 65 mm[Hg] MARYBETH STANLEY [facility] 03-16-2022 08:49-0400 Heart rate 75 /min MARYBETH STANLEY [facility] 03-16-2022 08:49-0400 Systolic blood pressure 93 mm[Hg] MARYBETH STANLEY [facility] Encounters Encounter Date Encounter Type Care Provider Facility Start: 03-22-2024 End: [facility] Start: 02-22-2024 End: 02-22-2024 ambulatory JUAN LUISCHACHA CALVIN [facility] Start: 02-07-2024 End: 02-07-2024 ambulatory Martha Meier Facility:[facility] Start: 01-26-2024 End: 01-26-2024 ambulatory VENECIA FLOWERS [facility] Start: 01-16-2024 End: 01-16-2024 ambulatory [facility] Work Phone: Start: 01-16-2024 End: 01-16-2024 Patient encounter procedure [facility] Work Phone: Start: 01-12-2024 Non-patient / Non-visit [facility] Work Phone: Start: 01-11-2024 Non-patient / Non-visit [facility] Physician [facility] Work Phone: Start: 01-10-2024 Non-patient / Non-visit [facility] Physician [facility] Work Phone: Start: 01-09-2024 Non-patient / Non-visit [facility] Work Phone: Start: 01-08-2024 Non-patient / Non-visit [facility] Work Phone: Start: 01-01-2024 End: 01-01-2024 ambulatory [facility] Start: 12-29-2023 End: 12-29-2023 ambulatory Timo Francis Other [facility] Other Start: 12-29-2023 Telephone encounter Timo Francis [facility] Start: 12-26-2023 End: 12-26-2023 ambulatory EDDIE M ABHISHEK Not Available Start: 12-20-2023 End: 12-20-2023 ambulatory Timo Francis Other [facility] Other Start: 12-20-2023 Telephone encounter Timo Francis [facility] Start: 12-15-2023 End: 12-15-2023 ambulatory Timo Francis Other [facility] Other Start: 12-15-2023 Telephone encounter Timo Francis [facility] Start: 12-11-2023 End: 12-11-2023 ambulatory Timo Francis Other [facility] Other Start: 12-11-2023 Telephone encounter Timo Francis [facility] Start: 12-08-2023 End: 12-08-2023 Patient encounter procedure [facility] Physician [facility] Work Phone: Start: 12-05-2023 End: 12-05-2023 ambulatory Timo Francis Other [facility] Other Start: 12-05-2023 Telephone encounter Timo Francis [facility] Start: 11-22-2023 End: 11-22-2023 ambulatory Timo Francis Other [facility] Other Start: 11-22-2023 Telephone encounter Timo Francis [facility] Start: 11-22-2023 Transitional care carlie villasenor srvc 14 day discharge Timo Francis [facility] Start: 11-22-2023 End: 11-22-2023 Patient encounter procedure [facility] Work Phone: Start: 11-17-2023 End: 11-17-2023 ambulatory Timo Francis Other [facility] Other Start: 11-17-2023 Telephone encounter Timo DIEGO [facility] Start: 10-04-2023 End: 10-04-2023 ambulatory iTmo Francis Other [facility] Other Start: 10-04-2023 Telephone encounter Timo DIEGO [facility] Start: 10-03-2023 End: 10-03-2023 ambulatory Timo Francis Other [facility] Other Start: 10-03-2023 Office outpatient vi sit 15 minutes Timo Francis [facility] Start: 09-29-2023 End: 09-29-2023 ambulatory Timo Francis Other [facility] Other Start: 09-29-2023 Nursing evaluation o f patient and report Timo Francis [facility] Start: 09-06-2023 End: 09-06-2023 ambulatory Timo Francis Other [facility] Other Start: 09-06-2023 Telephone encounter Timo Francis [facility] Start: 08-31-2023 End: 08-31-2023 ambulatory Timo Francis Other [facility] Other Start: 08-31-2023 Patient encounter procedure Timo Francis [facility] Start: 05-26-2023 End: 05-26-2023 ambulatory Timo Francis Other [facility] Other Start: 05-26-2023 Office outpatient vi sit 25 minutes Timo Francis [facility] Start: 05-02-2023 End: 05-02-2023 ambulatory SAMSON [facility] Start: 04-17-2023 End: 04-17-2023 ambulatory JUAN LUIS [facility] Start: 01-20-2023 End: 01-20-2023 ambulatory Timo Francis Other [facility] Other Start: 01-20-2023 Office outpatient vi sit 25 minutes Timo Francis [facility] Start: 09-21-2022 End: 09-22-2022 ambulatory MARYBETH STANLEY Facility:[facility] Start: 09-21-2022 End: 09-21-2022 Patient encounter procedure MARYBETH STANLEY [facility] Start: 09-06-2022 End: 09-07-[address] TIMO FRANCIS Facility:[facility] Start: 08-14-2022 End: 08-15-[address] TIMO FRANCIS Facility:[facility] Start: 08-03-2022 End: 08-04-[address] TIMO FRANCIS Facility:[facility] Start: 07-08-2022 End: 07-09-[address] TIMO FRANCIS Facility:[facility] Start: 03-16-2022 End: 03-17-2022 ambulatory MARYBETH STANLEY Facility:[facility] Start: 03-16-2022 End: 03-16-2022 Patient encounter procedure MARYBETH STANLEY [facility] Start: 01-06-2022 End: 01-07-2022 ambulatory MARYBETH MOTARY Facility:[facility] Start: 01-05-2022 ambulatory MARYBETH STANLEY Facility : [facility] Start: 12-07-2018 Patient encounter procedure Facility:[id number] Start: 12-06-2018 Patient encounter procedure Facility:[id number] Procedures Date Procedure Procedure Detail Performing Clinician Start: 01-08-2024 Blood Culture 1 Start: 01-08-2024 Blood Culture 2 Start: 07-08-[address] KUSH FRANCIS Comment on above: Performed By: #### U MICRO, ERUR #### [facility] [address] [place] [address] [address] Kirk García Start: 07-28-2021 Cholecystectomy SHADIA STANLEY Start: 11-27-2006 Colonoscopy MARYBETH Angel GRAVES Start: 11-27-2004 Implantation of radi oactive seed into prostate MARYBETH STANLEY Repair of right ingu inal hernia MARYBETH STANLEY Transrectal biopsy o f prostate using ultrasound guidance MARYBETH STANLEY Immunizations Immunization Date Immunization Notes Care Provider Dari pérez 09-29-2023 influenza, high dose seasonal, preservative-free Timo Francis Other [facility] Other 09-29-2023 influenza virus vaccine, unspecified formulation [facility] 09-07-2022 influenza virus vaccine, split virus (incl. purified surface antigen) Timo Francis Other [facility] Other 09-07-2022 influenza virus vaccine, unspecified formulation [facility] 04-26-2022 SARS-CoV-2 mRNA (rslckrzrpxe-ghrw-cbjac se) vaccine MARYBETH STANLEY [facility] 09-02-2021 SARS-CoV-2 (COVID-19 ) mRNA BNT-162b2 vax MARYBETH STANLEY [facility] 08-18-2021 influenza virus vaccine, unspecified formulation MARYBETH STANLEY [facility] 08-13-2021 influenza virus vaccine, split virus (incl. purified surface antigen) Timo Francis Other [facility] Other 08-13-2021 influenza virus vaccine, unspecified formulation [facility] 02-23-2021 SARS-CoV-2 (COVID-19 ) mRNA BNT-162b2 vax MARYBETH STANLEY [facility] 02-03-2021 SARS-CoV-2 (COVID-19 ) mRNA BNT-162b2 vax MARYBETH STANLEY [facility] Comment on above: Result Comment: 2021: [id number] 01-25-2021 SARS-CoV-2 (COVID-19 ) mRNA BNT-162b2 vax MARYBETH STANLEY [facility] 08-31-2020 influenza virus vaccine, split virus (incl. purified surface antigen) Timo Francis Other [facility] Other 08-31-2020 influenza virus vaccine, unspecified formulation [facility] 08-30-2019 influenza virus vaccine, split virus (incl. purified surface antigen) Timo Francis Other [facility] Other 08-30-2019 influenza virus vaccine, unspecified formulation MARYBETH STANLEY [facility] 08-29-2018 influenza virus vaccine, split virus (incl. purified surface antigen) Timo Francis Other [facility] Other 08-29-2018 influenza virus vaccine, unspecified formulation MARYBETH STANLEY [facility] 08-03-2017 influenza virus vaccine, split virus (incl. purified surface antigen) Timo Francis Other [facility] Other 08-03-2017 influenza virus vaccine, unspecified formulation MARYBETH STANLEY [facility] 09-05-2016 influenza virus vaccine, split virus (incl. purified surface antigen) Timo Francis Other [facility] Other 09-05-2016 influenza virus vaccine, unspecified formulation MARYBETH STANLEY [facility] 10-16-2015 pneumococcal conjuga te vaccine, 13 valent Timo Francis Other [facility] 09-01-2015 influenza virus vaccine, split virus (incl. purified surface antigen) Timo Penny Other [facility] Other 09-01-2015 influenza virus vaccine, unspecified formulation [facility] 09-15-2014 tetanus and diphther ia toxoids, adsorbed, preservative free, for adult use (5 Lf of tetanus toxoid and 2 Lf of diphtheria toxoid) Timo Francis Other [facility] 08-27-2013 tetanus and diphther ia toxoids, adsorbed, preservative free, for adult use (5 Lf of tetanus toxoid and 2 Lf of diphtheria toxoid) Timo Francis Other [facility] 01-10-2007 pneumococcal polysaccharide vaccine, 23 valent Timo Penny Other [facility] 1999 pneumococcal polysaccharide vaccine, 23 valent MARYBETH STANLEY [facility] Payers Date Payer Category Payer Self-pay 2024 Unknown [id number] 2.16.8 [id number] 2023 Unknown [id number] 1960 Medicare [id number] 1960 Unknown [id number] 1935 Unknown [id number] 2.16. [id number] 1934 Unknown [id number] 2.16. [id number] 1934 Unknown [id number] 2.16.8 40.1.651289.3.579.2.727 1934 Unknown [id number] 2.16.8 40.1.205023.3.579.2.727 1934 Unknown [id number] 2.16.8 40.1.825325.3.579.2.727 1934 Unknown [id number] 2.16.8 40.1.755187.3.579.2.727 1934 Unknown [id number] 2.16.8 40.1.081108.3.579.2.727 1934 Unknown [id number] 2.16.84 0.1.154785.3.579.2.593 1934 Unknown [id number] 2.16.84 0.1.907285.3.579.2.593 1934 Unknown [id number] 2.16.84 0.1.994555.3.579.2.593 1934 Unknown [id number] 2.16.84 0.1.401067.3.579.2.593 1934 Unknown [id number] 2.16.84 0.1.929214.3.579.2.1259 Medicare [id number] Unknown [facility] Health Claims [id number] Unknown [id number] (STD) [id number] Unknown [id number] 2.16.8 [id number] Social History Date Type Detail Facility Start: 03-16-2022 End: 01-16-2024 Tobacco smoking status Never smoked tobacco (finding) [facility] Tobacco smoking status Never [facility] Sex Assigned At Male [facility] Start: 1935 Sex Assigned At Male [facility] Functional Status Date Assessment Result Facility 09-21-2022 Functional Status N/A [facility] Clinical Notes 07-28-2021 to 03-22-2024 Note Date & Type Note Facility 03-22-2024 Note [facility] Subjective Samson Kelley is a 88 [...] dribbling Cholecystitis Gram-negative bacteremia Gross hematuria 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 Surgery was done at the [facility]. Most recently he was admitted to [facility] in January 2024 for decompensated heart failure. [...] wheezing or rales. Comments: On oxygen by BUSINESS DEVELOPMENT SPECIALIST Chest: Chest wall: No tenderness. Abdominal: General: Bowel sounds are normal. There is no distension. Palpations: Abdomen is soft. Tenderness: There is no abdominal tenderness. Musculoskeletal: General: No swelling. Cervical back: Neck supple. Right lower le+ Pitting Edema present. Left lower le+ Pitting Edema present. Skin: General: Skin is warm and dry. Neurological: General: No focal deficit present. Menta (more content not included)... [facility] 02-22-2024 Note Cardiovascular Medic [facility] SUBJECTIVE Chief Complaint Patient presents with Hospital Follow-up Congestive Heart Failure HPI Samson Kelley is a 88 y.o. male here for follow-up. His neighbor ePggy accompanied him who helps with his transportation and medications. 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 His lasix [...] dribbling Cholecystitis Gram-negative bacteremia Gross hematuria Hyperlipidemia [facility] current use of antithrombotics/antiplatelets Other specified postprocedural [...] and dry. Neurological (more content not included)... [facility] 02-22-2024 Note Patient here for [facility] up TB. He was switched from Lasix [...] All other systems reviewed and are negative. [facility] 01-26-2024 Note CAMERON clip 2016 No anticoagulation with CAMERON clip Continue toprol and digoxin- rate is controlled in office [facility] 01-26-2024 Note Will monitor with ro utine echocardiograms. [facility] 01-26-2024 Note Continue diuresis wi th lasix bid for next 2-3 days and then resume daily dose. [facility] 01-26-2024 Note Hypertension is stab le Well controlled 100/60 Continue all meds [facility] 01-26-2024 Note [facility] III Continue GDMT- ASA, digoxin, lisinopril, toprol with midodrine. Diuretic therapy- lasix 40 mg daily with bid as needed for fluid overload. Asked pt to continue lasix bid for next 2-3 days Sent pt to lab for BMP Monitor daily weights, I&O, fluid restriction 1.5-2L/day, renal function and electrolytes- please maintain K+>4 and Mg > 2 [facility] 01-26-2024 Note Patient here for fol low up [facility]. He was started on midodrine and thyroid medication. .Review of Systems Eyes: Positive for vision loss in left eye and vision loss in right eye. Cardiovascular: Positive for dyspnea on exertion and leg swelling. Respiratory: Positive for shortness of breath. Hematologic/Lymphatic: Bruises/bleeds easily. All other systems reviewed and are negative. [facility] 01-26-2024 Note [facility] CARDIOLOGY PROGR ESS NOTE [place] [facility] HPI: Samson Kelley is a 88 y.o. male here for hospital F/U at [facility] HPI 88 y.o. 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 He was started on midodrine and [...] VALVE: Normal trile (more content not included)... [facility] 01-01-2024 Note [facility] Electrophysiology Consult Note Reason [...] noted some increase in SOB/POWELL 04/17/23 jonah BUSINESS DEVELOPMENT SPECIALIST HPI Samson Kelley is a 87 y.o. [...] on file Intimate Partner Violence: Unknown (01/01/2024) [place] Safety & Environment Fear of Current or [...] rhonchi Cardiovascular Ra (more content not included)... [facility] 01-01-2024 Note Patient here for 6 m o follow up and device check. He was admitted to [facility] in Oct 2023 and was seen [...] All other systems reviewed and are negative. [facility] 12-29-2023 Evaluation note Encounter Date Diagnosis Assessment Notes Dec, Anemia (ICD-10 - D64.9) [facility] Other 01-03-2024 NoteThis report has been cancelled. [facility]01-03-2024 NoteThis report has been cancelled.[facility]01-03-2024 NoteThis report has been cancelled.[facility]01-03-2024 NoteThis report has been cancelled.[facility]01-03-2024 NoteThis report has been cancelled.[facility]01-03-2024 NoteThis report has been cancelled.[facility]01-03-2024 NoteThis report has been cancelled.[facility]12-27-2023 Evaluation note* Encounter Date Diagnosis Assessment Notes [...] are maintaining regular scheduled appts with their glue cook. s/p LAAO procedure, off anticoagulation Oct, Pulmonary [...] I44.1) PM inserted PM checkups every 6months. [facility] Other 11-07-2023 Evaluation note* Encounter Date [...] continue exercise to achieve/maintain a normal BMI. [facility] Other 10-05-2023 Evaluation note* Encounter Date [...] are maintaining regular scheduled appts with their glue cook. No bleeding complications Aug, Chronic venous insufficiency [...] (ICD-10 - Z79.899) Check labs: CBC, Dig [facility] Other 06-30-2023 Evaluation note* Encounter Date [...] are maintaining regular scheduled appts with their glue cook. No bleeding complications Apr, Chronic venous insufficiency (ICD-10 - I87.2) Avoid salt and elevate lower extremities, support stockings, inspect legs and feet daily for blisters and ulcerations. 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 No active treatment at this time. [facility] Other 05-22-2023 NotePatient is here today to establish care Review of Systems HENT: Positive for ear discharge. Eyes: Positive for vision loss in left eye and vision loss in right eye. Respiratory: Positive for cough. All other systems reviewed and are negative.[facility] 04-17-2023 NoteCardiovascular Medicine [place] [facility] SUBJECTIVE Chief Complaint Patient presents with [...] puffier lately. -Will ob (more content not included)...[facility] 01-20-2023 Evaluation note* Encounter Date Diagnosis Assessment [...] are maintaining regular scheduled appts with their glue cook. 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 Needs new Banking Analyst, suggest [facility] here in [place] Dec, History of prostate cancer (ICD-10 - Z85.46) No s/s recurrence [facility] Other 10-26-2022 Hospital Discharge instructions Patient [...] who: Are older than age 65. Are -[place]vian. Are obese. Have a family history of [...] cells. Follow these instructions at home: Take hpht-qqw-[id number] and prescription medicines only as told by [...] 11/13/2006 Document Revised: 10/26/2018 Document Reviewed: 07/24/2017 [employer] Patient Education 2020 [employer]. Follow Up Care 03/16/2022 09:37:24 With:KENNETH SHEPARD, MARYBETH Trivedi, URL Address: [address] [place] [address] [phone] When: only if needed [facility] [place] 04-20-2022 Hospital Discharge instructions Patient Education 03/16/2022 [...] who: Are older than age 65. Are -Latvian. Are obese. Have a family history of [...] cells. Follow these instructions at home: Take qbij-wwc-inweisx and prescription medicines only as told by [...] 11/13/2006 Document Revised: 10/26/2018 Document Reviewed: 07/24/2017 [employer] Patient Education 2020 [employer]. Follow Up Care 01/28/2022 16:02:47 With:MARYBETH STANLEY PA-C, URL Address: [address] [place] [address] Business (1) When:6 months [facility] [place] 09-21-2021 NoteHNO ID: [id number] Author: Jewel Cary III, MD Service: ? Author Type: Physician Type: Progress Notes Filed: 08/17/2021 9:33 AM Note Text: This patient is post op from laparoscopic cholecystectomy. He has had no symptoms. P.E. The wounds are healing well without evidence of infection. I reviewed the pathology report with Samson. Assessment Satisfactory course Plan: Return to office PRN. Jewel Cary III, [facility]09-01-2021 NoteHNO ID: [id number] Author: Jaspal Phipps APRN.[employer]OR [employer] Service: Anesthesiology Author Type: Nurse Project Construction Manager Type: Anesthesia Procedure Notes Filed: 07/28/2021 10:50 AM Note Text: ANESTHESIOLOGY PROCEDURE NOTE Airway General Information Procedure Start Time/Medication Administration: 07/28/2021 10:40 AM Patient location during procedure: OR Patient identity confirmed: arm band and patient Staffing Anesthesiologist: Ramiro Esquivel MD [employer]: Jaspal Phipps APRN.SUPER[employer]OR [employer] Performed by: SUPERVISOR [employer] Indications and Patient Condition Preoxygenated: yes Patient [...] July 28, 2021 TIME: 10:48 AM CSN: [id number] Future Appointments Appointment Date:09/21/2022 10:00:00 AM Scheduled Provider:MARYBETH STANLEY PA-C Location:[facility] Appointment Type:URO Office Visit [facility] [place] evaluation noteNo InformationNort [employer] Other Evaluation note* Diagnosis Onset Date Resolution Status Chronic venous insufficiency of lower extremity acute CKD (chronic kidney disease) stage 3, GFR 30-59 ml/min acute HFrEF (heart failure with reduced ejection fraction) acute Hypoxia acute Mobitz (type) II atrioventricular block acute Pancytopenia acute Subclinical hypothyroidism a [facility] Work Phone: Histese general Narrative - Reported* Type Description Date [...] GALLBLADDER 11/2029 Hospitalization History see surgical history [facility] Other History general Narrative - Reported* [...] 20 16 Hospitalization History see surgical history [facility] Other Hospital course Narrative No data available for this section [facility] Jacki progress note No data available for this section [facility] [place] [employer] [facility] Summary Purpose Family History No Family History Records Found Relationship Condition Age at Onset Recorded Date/T jabier father Unknown Not Specified Unknown Advance Directives No Advanced Directives Records Found Advance Directive Response Recorded Date/ Time Advance Directives No January 04, 2024 12:18pm Chief Complaint and Reason for Visit Chief Complaint [facility] Follow-Up [facility] d/c 01/12 Reason for Visit Chronic [...] section and content) DATE CREATED AUTHOR 12/17/2018 [facility] DATE CREATED AUTHOR AUTHOR'S ORGANIZ ATION 07/31/[address] [facility] DATE CREATED AUTHOR AUTHOR'S ORGANIZ ATION 07/31/2021 [facility] DATE CREATED AUTHOR AUTHOR'S ORGANIZ ATION 12/24/2021 [facility] DATE CREATED AUTHOR AUTHOR'S ORGANIZ ATION 12/26/2021 [facility] DATE CREATED AUTHOR AUTHOR'S ORGANIZ ATION 09/22/2022 [facility] DATE CREATED AUTHOR AUTHOR'S ORGANIZ ATION 10/05/2022 [facility] DATE CREATED AUTHOR AUTHOR'S ORGANIZ ATION 12/27/2023 [facility] dical Specialists [facility] DATE CREATED AUTHOR AUTHOR'S ORGANIZ ATION 02/17/2024 [facility] DATE CREATED AUTHOR AUTHOR'S ORGANIZ ATION 03/30/2024 [facility] Patient Care team informatio n [...] UP4 MONTH FOL LOW UPWellnessLab resultsflu shotankle/foot swellingRefillTCHOLZER MEDICAL CENTER [facility] HHTBHMedication PriceTCMBlood PressuresBP readingsweight concernRepeat Labs Goals [...] BE BASED ON THE PRIMARY CLINICAL RECORDS. [facility]. provides no warranty or guarantee of the accuracy or completeness of information in this document.
[2024-06-26 12:38] LABS: Basophils Percent Auto 0.4 % (0.2-2.0); Eosinophils Absolute Auto 0.1 10^3/uL (0.0-0.7); Eosinophils Percent Auto 1.8 % (0.9-7.0); Hematocrit 29.7 % (42.0-54.0); Hemoglobin 9.8 g/dL (14.0-18.0); Immature Granulocytes Abs Auto 0.03 10^3/uL (0.00-0.03); Immature Granulocytes Pct Auto 0.6 % (0.0-0.5); Lymphocytes Absolute Auto 1.1 10^3/uL (1.2-3.8); Lymphocytes Percent Auto 21.1 % (20.5-60.0); Mean Corpuscular Hemoglobin 34.4 pg (25.9-34.0); Mean Corpuscular Volume 104.2 fL (80.0-94.0); Mean Platelet Volume 10.7 fL (9.5-13.5); Monocytes Absolute Auto 0.9 10^3/uL (0.3-0.8); Monocytes Percent Auto 17.7 % (1.7-12.0); Neutrophils Absolute Auto 2.9 10^3/uL (1.4-6.5); Neutrophils Percent Auto 58.4 % (43.0-75.0); Platelet Count 102 10^3/uL (150-450); Red Blood Count 2.85 10^6/uL (4.70-6.10); Red Cell Distribution Width 14.7 % (11.0-15.0)
[2024-06-26 14:25] LABS: BUN Creatinine Ratio 32.7; Calcium 9.4 mg/dL (8.5-10.1); Carbon Dioxide 31.3 mmol/L (21.0-32.0); Chloride 98 mmol/L (98-107); Estimated GFR (African America 52 (>=60); Estimated GFR (Non-African Ame 43 (>=60); Glucose 117 mg/dL (74-106); Potassium 4.3 mmol/L (3.5-5.1); Sodium 138 mmol/L (136-145)
== END 2024-06-26 12:09 | disposition home or self-care (01) ==
LOC: LAB 12:09
PROVIDERS: PCP Internal Medicine; Visit Provider Internal Medicine Interventional Cardiology
DX: E03.8 Other specified hypothyroidism (principal); I50.22 Chronic systolic (congestive) heart failure
CPT/HCPCS: 36415; 80048; 84443; 85025

== ENCOUNTER 2024-08-01 11:04 | Outpatient (OUT) | payer MEDICARE, OTHER, SELFPAY ==
[2024-08-01 11:26] LABS: Basophils Percent Auto 0.6 % (0.2-2.0); Eosinophils Absolute Auto 0.1 10^3/uL (0.0-0.7); Eosinophils Percent Auto 1.5 % (0.9-7.0); Immature Granulocytes Abs Auto 0.02 10^3/uL (0.00-0.03); Immature Granulocytes Pct Auto 0.4 % (0.0-0.5); Lymphocytes Percent Auto 17.8 % (20.5-60.0); Mean Corpuscular HGB Conc 33.3 g/dL (29.9-35.2); Mean Corpuscular Volume 104.9 fL (80.0-94.0); Monocytes Absolute Auto 1.1 10^3/uL (0.3-0.8); Neutrophils Absolute Auto 3.2 10^3/uL (1.4-6.5); Neutrophils Percent Auto 59.7 % (43.0-75.0); Platelet Count 111 10^3/uL (150-450); Red Blood Count 2.86 10^6/uL (4.70-6.10); Red Cell Distribution Width 14.2 % (11.0-15.0); White Blood Count 5.4 10^3/uL (4.0-11.0)
[2024-08-01 12:31] LABS: Anion Gap 12.2; BUN Creatinine Ratio 36.1; Calcium 9.4 mg/dL (8.5-10.1); Carbon Dioxide 32.3 mmol/L (21.0-32.0); Chloride 99 mmol/L (98-107); Estimated GFR (African America 48 (>=60); Estimated GFR (Non-African Ame 39 (>=60); Glucose 116 mg/dL (74-106); Potassium 4.5 mmol/L (3.5-5.1); Sodium 139 mmol/L (136-145)
== END 2024-08-01 11:05 | disposition home or self-care (01) ==
LOC: LAB 11:08
PROVIDERS: PCP Internal Medicine; Visit Provider Internal Medicine Interventional Cardiology
DX: I50.22 Chronic systolic (congestive) heart failure (principal)
CPT/HCPCS: 36415; 80048; 83880; 85025

== ENCOUNTER 2024-09-10 07:45 | Outpatient (RCR) | payer MEDICARE, OTHER, SELFPAY ==
[2024-09-10 10:22] LABS: Basophils Percent Auto 0.6 % (0.2-2.0); Eosinophils Absolute Auto 0.1 10^3/uL (0.0-0.7); Eosinophils Percent Auto 2.7 % (0.9-7.0); Hematocrit 30.4 % (42.0-54.0); Hemoglobin 9.9 g/dL (14.0-18.0); Immature Granulocytes Abs Auto 0.02 10^3/uL (0.00-0.03); Immature Granulocytes Pct Auto 0.4 % (0.0-0.5); Lymphocytes Absolute Auto 0.9 10^3/uL (1.2-3.8); Lymphocytes Percent Auto 19.4 % (20.5-60.0); Mean Corpuscular HGB Conc 32.6 g/dL (29.9-35.2); Mean Corpuscular Hemoglobin 34.4 pg (25.9-34.0); Mean Corpuscular Volume 105.6 fL (80.0-94.0); Mean Platelet Volume 9.8 fL (9.5-13.5); Monocytes Absolute Auto 0.8 10^3/uL (0.3-0.8); Monocytes Percent Auto 16.4 % (1.7-12.0); Neutrophils Absolute Auto 2.9 10^3/uL (1.4-6.5); Neutrophils Percent Auto 60.5 % (43.0-75.0); Platelet Count 108 10^3/uL (150-450); Red Cell Distribution Width 14.5 % (11.0-15.0); Reticulocyte Pct Auto 3.16 % (0.60-3.10); White Blood Count 4.8 10^3/uL (4.0-11.0)
[2024-09-10 10:39] LABS: Alanine Aminotransferase 15 U/L (16-63); Albumin Globulin Ratio 0.8; Albumin Level 3.4 g/dL (3.4-5.0); Alkaline Phosphatase 106 U/L (46-116); Anion Gap 16.1; Aspartate Amino Transferase 13 U/L (15-37); BUN Creatinine Ratio 23.7; Bilirubin Total 1.2 mg/dL (0.2-1.0); Calcium 9.9 mg/dL (8.5-10.1); Carbon Dioxide 30.1 mmol/L (21.0-32.0); Chloride 101 mmol/L (98-107); Estimated GFR (African America 37 (>=60 mL/min/1.73m^2); Estimated GFR (Non-African Ame 30 (>=60 mL/min/1.73m^2); Globulin 4.4 g/dL; Glucose 121 mg/dL (74-106); Potassium 4.2 mmol/L (3.5-5.1); Sodium 143 mmol/L (136-145); Total Protein 7.8 g/dL (6.4-8.2)
[2024-09-10 10:47] LABS: Percent Iron Saturation 30.2 %; Red Blood Count 2.88 10^6/uL (4.70-6.10)
== END 2024-09-26 23:59 | disposition home or self-care (01) ==
LOC: HEMC 07:45
PROVIDERS: PCP Internal Medicine; Visit Provider Internal Medicine Hematology & Oncology
DX: D64.9 Anemia, unspecified (principal); D69.6 Thrombocytopenia, unspecified; D61.818 Other pancytopenia; Z90.49 Acquired absence of other specified parts of digestive tract; I42.9 Cardiomyopathy, unspecified; Z95.0 Presence of cardiac pacemaker; R09.02 Hypoxemia; Z99.81 Dependence on supplemental oxygen
CPT/HCPCS: 36415; 80053; 82728; 83540; 83550; 83880; 85025; 85045; G0463

== ENCOUNTER 2024-09-19 16:07 | Outpatient (OUT) | payer MEDICARE, OTHER, SELFPAY ==
--- OUTSIDE RECORDS SUMMARY | 2024-09-19 16:15 | XMS_ITS | CCD ---
Author Organization [facility] Care Team Providers Care Public Speaking Coach Name Role Phone TIMO FRANCIS Primary Care Physician [phone] MARYBETH STANLEY Attending Unavailable KENNETH, MARYBETH Trivedi Attending Unavailable KENNETH, MARYBETH Trivedi Attending Unavailable PENNY, DR MARRUFO Primary Care Unavailable NADERETyler, DR MADISON Arriaza Admitting Unavailable NADERER, DR MADISON Arriaza Attending Unavailable ZIEBER, DR MILAGROS Scott Consulting Unavailable NADERER, DR MADISON Arriaza Consulting Unavailable PAY, DR PENNINGTON Consulting Unavailable KVNGJAMES ESCOBAR Consulting Unavailable BACHRACHLINH Consulting Unavailable PENNY, DR MARRUFO Admitting Unavailable PENNY, DR MARRUFO Attending Unavailable BALL, DR MARRUFO Primary Care Unavailable BALL, DR [...] Admitting Unavailable Timo Francis Primary Care Unavailable JUAN LUIS CALVIN Attending Unavailable ROSSI OROSCO Attending Unavailable ROSSI OROSCO Attending Unavailable SAMSON MYLES Referring Unavailable SAMSON MYLES Referring Unavailable MARGARITA HERNANDEZ Attending Unavailable VENECIA FLOWERS Attending Unavailable Medications Current Medications Medication Drug [...] Start: 11-22-2023 take 1 capsule by mo [facility] once daily Metoprolol Succinate 50 MG 1 [...] Daily, # 90 tab(s), Refills(s) 3, Pharmacy: [facility], 183, cm, 09/21/22 12:19:00 EDT, Height/Length [...] 0 Start Date: 02/14/20 Status: Ordered Problems Active Problems Problem Classification Problem Date Documented [...] 08-10-2022 Episodic Other aftercare (6 sources) Other ocean transportation intermediary (current) drug therapy; Translations: [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] Onset: 07-08-2022 Episodic Other aftercare (1 source) residential (current) use of aspirin; Translations: [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 CURRENT USE OF ASPIRIN] Onset: 08-16-2022 [...] Unclassified (2 sources) Patient encounter status 01-01-2020 Urinary tract infections (3 sources) Urinary tract infectious disease; Translations: [Urinary tract infection, site not specified] Onset: 08-16-2022 02-14-2020 Episodic Viral infection (1 source) COVID-19; Translations: [COVID-19] Onset: 08-10-2022 Past or Other Problems Problem Classification Problem Date Documented Date Episodic/Chronic Residual codes; unclassified (2 sources) Other specified postprocedural states; Translations: [Other specified postprocedural states] Onset: 03-22-2024 Episodic Results Test Name Value Interpretation Reference Range Facility 36on 08-20-2024 36 Patient made aware. [facility] 36on 08-19-2024 36 You referred this patient to see Dr. Myles to discuss possible device upgrade. He was scheduled to see Dr. Myles tomorrow, but unfortunately Dr. Myles is sick. I spoke with Eris Warren and scheduled him to see Dr. Myles on 10/08 - which is his next available in [place]. He was very concerned that he wasn't being seen MANUELA . I told him I'd check with you to make sure this was ok. I think he needs some peace of mind. Please advise. Thanks. [facility] 36on 08-02-2024 36 I reviewed his labs. Renal function is stable. He can continue current diuretic dose and see nephrology as I recommended at last visit. Follow up with me in 3 months or sooner if needed. [facility] Telephoneon 08-01-2024 Telephone [phone] Samson Kelley 1935 M Date Provider Department Center 08/01/2024 ASAEL BERNAL WINNIE Echeverria [facility] No family history on file [facility] Office Visiton 06-26-2024 Follow-up visit [id number] Samson Kelley 1935 M Date Provider Department Center 06/26/2024 ROSSI TORO WINNIE Echeverria [facility] No family history on file Level of Service:48447 AL OFFICE/OUTPATIENT ESTABLISHED MOD MDM 30 MIN [facility] 03-28-2024 36 Regarding labs from 03/13/2024: Juan Luis Calvin, JUAN FRANCISCO Macedo MA Please let him know his recent labs show his kidney function is stable. Continue medications as is and follow-up as scheduled. Thanks! Patient made aware. [facility] Office Visiton 03-22-2024 Follow-up visit [id number] Samson Kelley 1935 M Date Provider Department [place] 03/22/2024 ROSSI TORO WINNIE Echeverria [facility] No family history on file Level of Service:63424 AL OFFICE/OUTPATIENT ESTABLISHED MOD MDM 30 MIN Reason for Visit and Comments: Follow-up [491800] - 1 month [facility] 03-06-2024 29 Addended by: ERNESTINA MACEDO on: 03/06/2024 01:43 PM Modules accepted: Orders [facility] 3603-06-2024 36 Spoke with patient and advised him of Bumex increase per Consuelo Calvin CNP. He verbalized understanding. He asked that I email him order for BMP to be done in 1 week by home health. He verbalized understanding. Order emailed to him. [facility] 36 Can we have him increase his bumex to 2mg daily x3 days then alternate every other day 1mg and 2mg. Follow-up BMP in 1 week. Thanks! [facility] Orders Onlyon 03-06-2024 Orders Only [id number] Samson Kelley 1935 M Date Provider Department Center 03/06/2024 ERNESTINA CARBAJAL WINNIE Echeverria [facility] No family history on file [facility] 36on 03-05-2024 36 Patient called to make you aware that he gained 3# from yesterday to today. Also is a little more SOB since cutting Bumex back. Any recommendations? Normal [facility] 36on 02-29-2024 36 His kidney function has mildly worsened. Please have him cut his bumex in half to 1mg daily. Let us know if he develops worsening SOB, leg swelling, weight gain. Thanks! [facility] 36on 02-28-2024 36 Today patient states his weight is steady at 195 feet a little puffy but better, breathing better on O2. Please call for lab results from today. Thanks! [facility] Telephoneon 02-28-2024 Telephone [phone] Samson Kelley 1935 M Date Provider Department Center 02/28/2024 JUAN LUIS RETANA WINNIE Kunal . No family history on file [facility] Office Visiton 02-22-2024 Follow-up visit [id number] Samson Kelley 1935 M Date Provider Department Center 02/22/2024 JUAN LUIS RETANA WINNIE Echeverria [facility] No family history on file Level of Service:87870 AL OFFICE/OUTPATIENT ESTABLISHED MOD MDM 30 MIN Reason for Visit and Comments: Hospital Follow-up [832] Congestive Heart Failure [127] [facility] CT guided bone marrow bx/asp iron 02-07-2024 CT guided bone marrow bx/aspir [place] [address] CT Scan Report Signed Patient: Samson Kelley MR#: [id number] : 1935 Acct:[id number] Age/Sex: 88 / M ADM Date: 02/07/24 Loc: CT Room: Type: [facility] Attending Dr: Martha Meier MD Copies [...] Zach Ontiveros M.D.02/07/2024 2:21 PM Dictation Location: [place] [address] Transcribed By: [facility] 02/07/24 1421 Dictated By: Zach Ontiveros II, MD 02/07/24 1418 Signed By: 02/07/24 1421 Normal [facility] Coagulation Profileon 2023 aPTT Coag (Bld) [Time] 41.4 s High 25.1-36.5 [facility] Comment on above: Result Comment: A he matocrit value greater than 55% may lead to inaccurate results in coagulation testing. Patients having hematocrit values >55% require a special collection tube for coagulation studies. Please contact the laboratory at [phone] for redraw instructions. PERFORMED BY: [address] [place] [address] PATHOLOGIST COMPUTER HARDWARE TECHNICIAN DILIA SUAZO M.D. Performed By: #### C BC, PP #### [address] INR Coag (PPP) [Relative time] 1.2 {INR} Normal [facility] Comment on above: Result Comment: INR Therapeutic [...] Performed By: #### C BC, PP #### [address] PT Coag (PPP) [Time] 13.2 s High 9.0-12.9 [facility] Comment on above: Result Comment: A he matocrit value greater than 55% may lead to inaccurate results in coagulation testing. Patients having hematocrit values >55% require a special collection tube for coagulation studies. Please contact the laboratory at [phone] for redraw instructions. Performed By: #### C BC, PP #### [address] Complete Blood Count Auto Di ffon 02-07-2024 Basophils (Bld) [#/Vol] 0.0 10*3/uL Normal 0.0-0.2 [facility] Comment on above: Result Comment: PERF ORMED BY: [place] [address] PATHOLOGIST COMPUTER HARDWARE TECHNICIAN DILIA SUAZO M.D. Performed By: #### C BC, PP #### [address] Basophils/100 WBC (Bld) 0.9 % Normal . [facility] Comment on above: Performed By: #### C BC, PP #### [address] Eosinophils (Bld) [#/Vol] 0.1 10*3/uL Normal 0.0-0.45 [facility] Comment on above: Performed By: #### C BC, PP #### [address] Eosinophils/100 WBC (Bld) 1.8 % Normal . [facility] Comment on above: Performed By: #### C BC, PP #### [address] Erythrocyte distribution width (RBC) [Ratio] 16.5 % High 12.0-14.8 [facility] Comment on above: Performed By: #### C BC, PP #### [address] Hematocrit (Bld) [Volume fraction] 31.0 % Low 38.8-50.0 [facility] Comment on above: Performed By: #### C BC, PP #### [address] Hemoglobin (Bld) [Mass/Vol] 10.3 g/dL Low 13.0-17.0 [facility] Comment on above: Performed By: #### C BC, PP #### [address] Lymphocytes (Bld) [#/Vol] 0.6 10*3/uL Low 1.00-4.8 [facility] Comment on above: Performed By: #### C BC, PP #### [address] Lymphocytes/100 WBC (Bld) 13.7 % Normal . [facility] Comment on above: Performed By: #### C BC, PP #### [address] MCH (RBC) [Entitic mass] 34.5 pg Normal 27.5-35.2 [facility] Comment on above: Performed By: #### C BC, PP #### [address] MCV (RBC) [Entitic vol] 103.8 fL High 83.5-101 [facility] Comment on above: Performed By: #### C BC, PP #### [facility] [address] Mean Corpuscular HGB Conc 33.2 g/dL Normal 32.5-35.6 [facility] Comment on above: Performed By: #### C BC, PP #### [facility] [address] [place] [address] [place] Monocytes (Bld) [#/Vol] 0.6 10*3/uL Normal 0.0-0.8 [facility] Comment on above: Performed By: #### C BC, PP #### [facility] [address] [place] [address] [place] Monocytes/100 WBC (Bld) 14.1 % Normal . [facility] Comment on above: Performed By: #### C BC, PP #### [address] Neutrophils (Bld) [#/Vol] 3.1 10*3/uL Normal 1.8-7.7 [facility] Comment on above: Performed By: #### C BC, PP #### [facility] [address] [place] [id number] [place] Neutrophils/100 WBC (Bld) 69.5 % Normal . [facility] Comment on above: Performed By: #### C BC, PP #### [address] NRBC% 0.3 /100{WBC} Normal 0-0.5 [facility] Comment on above: Performed By: #### C BC, PP #### [address] Platelet mean volume (Bld) [Entitic vol] 9.2 fL Normal 6.6-10.[address] [facility] Comment on above: Performed By: #### C BC, PP #### [place] [address] [place] Platelets (Bld) [#/Vol] 84 10*3/uL Low 150-450 [facility] Comment on above: Performed By: #### C BC, PP #### [facility] [address] [place] [id number] [facility] RBC (Bld) [#/Vol] 2.99 10*6/uL Low 3.90-5.60 [facility] Comment on above: Performed By: #### C BC, PP #### [facility] [address] [place] [phone] [facility] WBC (Bld) [#/Vol] 4.4 10*3/uL Normal 4.1-10.5 [facility] Comment on above: Performed By: #### C BC, PP #### [facility] [address] Sam 02-07-2024 L Specimen: Received: 02/07/24 Status: PRIYANKA Re Num: [id number] Spec Type: Bone Marro Subm Dr: Zach Ontiveros II, MD Tissues: A Bone Marrow Aspirate (Clot) (LT ILIAC CREST) B Bone Marrow Biopsy/Core (LT ILIAC CREST) Procedures: Peripheral Smr, Iron/3, HE/4, Gross/Micro L4/2, Bm Smear/2, CD138, CD20, CD3, Decalcification, Bone Marrow TP, GIEMSA STN/6 Age/ Patient Sex Location Account Attending Physician Samson Kelley 88/M CT [id number] Martha Meier MD SPEC NUM: [id number] RECD: 02/07/24 STATUS: PRIYANKA [facility] NUM: [id number] AURA: 02/07/[address]: Zach Ontiveros II, MD ENTERED: 02/07/24 [facility]: SPEC TYPE: Bone Marro DEPT: BM ORDERED: Peripheral Smr, Iron/3, HE/4, Gross/Micro L4/2, Bm Smear/2, CD138, CD20, CD3, Decalcification, Bone Marrow TP, GIEMSA STN/6 ORDERED: Peripheral Smr, Iron/3, HE/4, Gross/Micro L4/2, Bm Smear/2, CD138, CD20, CD3, USS/14, Decalcification, Bone Marrow TP, GIEMSA STN/6 Supplemental Report Addendum 2 Entered: 02/16/24-1215 This Case Was Sent To [facility] For additional testing. Results are as follows:? 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 Please Refer To The attached [facility] Report For Diagnostic Details Addendum Signed (signature on file) Naz Spence MD 02/16/241215 Addendum 1 Entered: 02/15/24 FISH testing results are negative. Please refer to the FISH report for details. Specimen: [id number] Received: 02/07/24-1153 Status: PRIYANKA Patterson Num: [id number] Spec Type: Bone Marro Subm Dr: Zach Ontiveros, MD LINDA Tissues: A Bone Marrow Aspirate (Clot) (LT ILIAC CREST) B Bone Marrow Biopsy/Core (LT ILIAC CREST) Procedures: Peripheral Smr, Iron/3, HE/4, Gross/Micro L4/2, Bm Smear/2, CD138, CD20, CD3, Decalcification, Bone Marrow TP, GIEMSA STN/6 Patient: Samson Kelley [id number] (Continued) Specimen: [id number] Received: 02/07/24 (Continued) Supplemental Report (Continued) Signed (signature on file) Lalita Lipscomb MD 02/09/24 1529 Specimen: [id number] Received: 02/07/24 Status: PRIYANKA Lopezcheryl Num: [id number] Spec Type: Bone Marro Subm Dr: Zach Ontiveros, MD LINDA Tissues: A Bone Marrow Aspirate (Clot) (LT ILIAC CREST) B Bone Marrow Biopsy/Core (LT ILIAC CREST) Procedures: Peripheral Smr, Iron/3, HE/4, Gross/Micro L4/2, Bm Smear/2, CD138, CD20, CD3, Decalcification, Bone Marrow TP, GIEMSA STN/6 Patient: Samson Kelley [id number] (Continued) Specimen: [id number] Received: 02/07/24-1153 (Continued) Supplemental [...] due to (more content not included)... Normal [facility] 36on 02-01-2024 36 Regarding BMP from 01/26/2024: [...] see Dr. Orosco on 02/12/2024 at 10:15am. [facility] Orders Onlyon 01-31-2024 Orders Only [id number] Samson Kelley 1935 M Date Provider Department Center 01/31/2024 Nay-VENECIA FLOWERS [facility] WINNIE Ewing. No family history on file [facility] 37on 01-26-2024 37 May take lasix [...] pillows than normal or in recliner. Normal [facility] Office Visiton 01-26-2024 Follow-up visit [id number] Samson Kelley 1935 M Date Provider Department Center 01/26/2024 120-KRISTIE, VENECIA BH CARD [facility] No family history on file Level of Service:30338 AL OFFICE/OUTPATIENT ESTABLISHED MOD MDM 30 MIN Normal [facility] Basophils Auto (Bld) [#/Vol] on 01-12-2024 Basophils (Bld) [#/Vol] 0.0 10 3/uL 0.0-0.1 [facility] Basophils/100 WBC Auto (Bld) on 01-12-2024 Basophils/100 WBC (Bld) 0.2 % 0.2-2.0 [facility] Eosinophils/100 WBC Auto (Bl d)on 01-12-2024 Eosinophils/100 WBC (Bld) 1.2 % 0.9-7.0 [facility] Erythrocyte distribution wid th Auto (RBC) [Ratio]on 01-12-2024 Erythrocyte distribution width (RBC) [Ratio] 15.9 % 11.0-15.0 [facility] Estimated glomerular filtrat ion rate (GFR) non- Americanon 01-12-2024 GFR/1.73 sq M.predicted among non-blacks MDRD (S/P/Bld) [Vol rate/Area] 44 mL/min/{1.73_m2} >=60 [facility] Globulin Calc (S) [Mass/Vol] on 01-12-2024 Globulin (S) [Mass/Vol] 4.3 g/dL [facility] Hematocrit Auto (Bld) [Volum e fraction]on 01-12-2024 Hematocrit (Bld) [Volume fraction] 30.0 % 42.0-54.0 [facility] Hemoglobin [Mass/volume] in Bloodon 01-12-2024 Hemoglobin (Bld) [Mass/Vol] 9.5 g/dL 14.0-18.0 [facility] Laboratory - Chemistry and C hemistry - challengeon 01-12-2024 Albumin [Mass/Vol] 2.9 g/dL 3.4-5.0 [facility] ALP [Catalytic activity/Vol] 93 U/L 46-116 [facility] ALT [Catalytic activity/Vol] 17 U/L 16-63 [facility] AST [Catalytic activity/Vol] 11 U/L 15-37 [facility] Bilirubin [Mass/Vol] 1.9 mg/dL 0.2-1.0 [facility] Calcium [Mass/Vol] 9.0 mg/dL 8.5-10.1 [facility] Chloride [Moles/Vol] 106 mmol/L 98-107 [facility] CO2 [Moles/Vol] 28.1 mmol/L 21.0-32.0 [facility] Creatinine [Mass/Vol] 1.49 mg/dL 0.70-1.30 [facility] GFR/1.73 sq M.predicted MDRD (S/P/Bld) [Vol rate/Area] 54 mL/min/{1.73_m2} >=60 [facility] Glucose [Mass/Vol] 94 mg/dL 74-106 [facility] Natriuretic peptide B (Bld) [Mass/Vol] 4324.0 pg/mL <=1800.0 [facility] Comment on above: RESULTS CALLED TO SANJUANITA CORNELL RN @BY Radha Corea at 0645 Potassium [Moles/Vol] 4.2 mmol/L 3.5-5.1 [facility] Protein [Mass/Vol] 7.2 g/dL 6.4-8.2 [facility] Sodium [Moles/Vol] 141 mmol/L 136-145 [facility] Urea nitrogen [Mass/Vol] 52.0 mg/dL 7.0-18.0 [facility] Urea nitrogen/Creatinine [Mass ratio] 34.9 mg/mg [facility] Laboratory - Hematology and Cell countson 01-12-2024 Immature granulocytes/100 WBC (Bld) 0.2 % 0.0-0.5 [facility] Leukocytes [#/volume] correc ayan for nucleated erythrocytes in Blood by Automated counon 01-12-2024 WBC corrected for nucl RBC Auto (Bld) [#/Vol] 4.3 10 3/uL 4.0-11.0 [facility] Lymphocytes Auto (Bld) [#/Vo l]on 01-12-2024 Lymphocytes (Bld) [#/Vol] 0.9 10 3/uL 1.2-3.8 [facility] Lymphocytes/100 WBC Auto (Bl d)on 01-12-2024 Lymphocytes/100 WBC (Bld) 19.9 % 20.5-60.0 [facility] MCH Auto (RBC) [Entitic mass ]on 01-12-2024 MCH (RBC) [Entitic mass] 34.5 pg 25.9-34.0 [facility] MCHC Auto (RBC) [Mass/Vol]on 01-12-2024 MCHC (RBC) [Mass/Vol] 31.7 g/dL 29.9-35.2 [facility] MCV Auto (RBC) [Entitic vol] on 01-12-2024 MCV (RBC) [Entitic vol] 109.1 fL 80.0-94.0 [facility] Monocytes Auto (Bld) [#/Vol] on 01-12-2024 Monocytes (Bld) [#/Vol] 0.7 10 3/uL 0.3-0.8 [facility] Monocytes/100 WBC Auto (Bld) on 01-12-2024 Monocytes/100 WBC (Bld) 16.9 % 1.7-12.0 [facility] Neutrophils Auto (Bld) [#/Vo l]on 01-12-2024 Neutrophils (Bld) [#/Vol] 2.7 10 3/uL 1.4-6.5 [facility] Neutrophils/100 WBC Auto (Bl d)on 01-12-2024 Neutrophils/100 WBC (Bld) 61.6 % 43.0-75.0 [facility] No Panel Informationon 01-12 Digoxin Level 1.4 ng/mL 0.9-2.0 [facility] Eosinophils # (Auto) 0.1 10 3/uL 0.0-0.7 [facility] Immature Granulocyte # (Auto) 0.01 10 3/uL 0.00-0.03 [facility] Platelet mean volume Auto (B ld) [Entitic vol]on 01-12-2024 Platelet mean volume (Bld) [Entitic vol] 11.5 fL 9.5-13.5 [facility] Platelets Auto (Bld) [#/Vol] on 01-12-2024 Platelets (Bld) [#/Vol] 69 10 3/uL 150-450 [facility] RBC Auto (Bld) [#/Vol]on RBC (Bld) [#/Vol] 2.75 10 6/uL 4.70-6.10 [facility] Serum or plasma albumin/glob ulin mass ratioon 01-12-2024 Albumin/Globulin [Mass ratio] 0.7 {ratio} [facility] Serum or plasma anion gap de terminationon 01-12-2024 Anion gap [Moles/Vol] 11.1 [facility] Basophils Auto (Bld) [#/Vol] on 01-11-2024 Basophils (Bld) [#/Vol] 0.0 10 3/uL 0.0-0.1 [facility] Basophils/100 WBC Auto (Bld) on 01-11-2024 Basophils/100 WBC (Bld) 0.4 % 0.2-2.0 [facility] Eosinophils/100 WBC Auto (Bl d)on 01-11-2024 Eosinophils/100 WBC (Bld) 0.8 % 0.9-7.0 [facility] Erythrocyte distribution wid th Auto (RBC) [Ratio]on 01-11-2024 Erythrocyte distribution width (RBC) [Ratio] 16.2 % 11.0-15.0 [facility] Estimated glomerular filtrat ion rate (GFR) non- Americanon 01-11-2024 GFR/1.73 sq M.predicted among non-blacks MDRD (S/P/Bld) [Vol rate/Area] 40 mL/min/{1.73_m2} >=60 [facility] Globulin Calc (S) [Mass/Vol] on 01-11-2024 Globulin (S) [Mass/Vol] 4.7 g/dL [facility] Hematocrit Auto (Bld) [Volum e fraction]on 01-11-2024 Hematocrit (Bld) [Volume fraction] 32.4 % 42.0-54.0 [facility] Hemoglobin [Mass/volume] in Bloodon 01-11-2024 Hemoglobin (Bld) [Mass/Vol] 10.0 g/dL 14.0-18.0 [facility] Laboratory - Chemistry and C hemistry - challengeon 01-11-2024 Albumin [Mass/Vol] 3.0 g/dL 3.4-5.0 [facility] ALP [Catalytic activity/Vol] 95 U/L 46-116 [facility] ALT [Catalytic activity/Vol] 20 U/L 16-63 [facility] AST [Catalytic activity/Vol] 13 U/L 15-37 [facility] Bilirubin [Mass/Vol] 1.9 mg/dL 0.2-1.0 [facility] Calcium [Mass/Vol] 9.0 mg/dL 8.5-10.1 [facility] Chloride [Moles/Vol] 103 mmol/L 98-107 [facility] CO2 [Moles/Vol] 27.5 mmol/L 21.0-32.0 [facility] Creatinine [Mass/Vol] 1.64 mg/dL 0.70-1.30 [facility] GFR/1.73 sq M.predicted MDRD (S/P/Bld) [Vol rate/Area] 48 mL/min/{1.73_m2} >=60 [facility] Glucose [Mass/Vol] 90 mg/dL 74-106 [facility] Natriuretic peptide B (Bld) [Mass/Vol] 3351.0 pg/mL <=1800.0 [facility] Comment on above: RESULTS CALLED TO PATY PATTON RN @BY Radha Corea at 0640 Potassium [Moles/Vol] 4.2 mmol/L 3.5-5.1 [facility] Protein [Mass/Vol] 7.7 g/dL 6.4-8.2 [facility] Sodium [Moles/Vol] 141 mmol/L 136-145 [facility] Urea nitrogen [Mass/Vol] 54.0 mg/dL 7.0-18.0 [facility] Urea nitrogen/Creatinine [Mass ratio] 32.9 mg/mg [facility] Laboratory - Hematology and Cell countson 01-11-2024 Immature granulocytes/100 WBC (Bld) 0.2 % 0.0-0.5 [facility] Leukocytes [#/volume] correc ayan for nucleated erythrocytes in Blood by Automated counon 01-11-2024 WBC corrected for nucl RBC Auto (Bld) [#/Vol] 4.8 10 3/uL 4.0-11.0 [facility] Lymphocytes Auto (Bld) [#/Vo l]on 01-11-2024 Lymphocytes (Bld) [#/Vol] 0.9 10 3/uL 1.2-3.8 [facility] Lymphocytes/100 WBC Auto (Bl d)on 01-11-2024 Lymphocytes/100 WBC (Bld) 18.6 % 20.5-60.0 [facility] MCH Auto (RBC) [Entitic mass ]on 01-11-2024 MCH (RBC) [Entitic mass] 34.0 pg 25.9-34.0 [facility] MCHC Auto (RBC) [Mass/Vol]on 01-11-2024 MCHC (RBC) [Mass/Vol] 30.9 g/dL 29.9-35.2 [facility] MCV Auto (RBC) [Entitic vol] on 01-11-2024 MCV (RBC) [Entitic vol] 110.2 fL 80.0-94.0 [facility] Monocytes Auto (Bld) [#/Vol] on 01-11-2024 Monocytes (Bld) [#/Vol] 0.7 10 3/uL 0.3-0.8 [facility] Monocytes/100 WBC Auto (Bld) on 01-11-2024 Monocytes/100 WBC (Bld) 14.9 % 1.7-12.0 [facility] Neutrophils Auto (Bld) [#/Vo l]on 01-11-2024 Neutrophils (Bld) [#/Vol] 3.1 10 3/uL 1.4-6.5 [facility] Neutrophils/100 WBC Auto (Bl d)on 01-11-2024 Neutrophils/100 WBC (Bld) 65.1 % 43.0-75.0 [facility] No Panel Informationon 01-11 Digoxin Level 1.5 ng/mL 0.9-2.0 [facility] Eosinophils # (Auto) 0.0 10 3/uL 0.0-0.7 [facility] Immature Granulocyte # (Auto) 0.01 10 3/uL 0.00-0.03 [facility] Platelet mean volume Auto (B ld) [Entitic vol]on 01-11-2024 Platelet mean volume (Bld) [Entitic vol] 11.2 fL 9.5-13.5 [facility] Platelets Auto (Bld) [#/Vol] on 01-11-2024 Platelets (Bld) [#/Vol] 71 10 3/uL 150-450 [facility] RBC Auto (Bld) [#/Vol]on RBC (Bld) [#/Vol] 2.94 10 6/uL 4.70-6.10 [facility] Serum or plasma albumin/glob ulin mass ratioon 01-11-2024 Albumin/Globulin [Mass ratio] 0.6 {ratio} [facility] Serum or plasma anion gap de terminationon 01-11-2024 Anion gap [Moles/Vol] 14.7 mmol/L [facility] Basophils Auto (Bld) [#/Vol] on 01-10-2024 Basophils (Bld) [#/Vol] 0.0 10 3/uL 0.0-0.1 [facility] Basophils/100 WBC Auto (Bld) on 01-10-2024 Basophils/100 WBC (Bld) 0.3 % 0.2-2.0 [facility] Eosinophils/100 WBC Auto (Bl d)on 01-10-2024 Eosinophils/100 WBC (Bld) 1.3 % 0.9-7.0 [facility] Erythrocyte distribution wid th Auto (RBC) [Ratio]on 01-10-2024 Erythrocyte distribution width (RBC) [Ratio] 16.1 % 11.0-15.0 [facility] Estimated glomerular filtrat ion rate (GFR) non- Americanon 01-10-2024 GFR/1.73 sq M.predicted among non-blacks MDRD (S/P/Bld) [Vol rate/Area] 39 mL/min/{1.73_m2} >=60 [facility] Globulin Calc (S) [Mass/Vol] on 01-10-2024 Globulin (S) [Mass/Vol] 4.0 g/dL [facility] Hematocrit Auto (Bld) [Volum e fraction]on 01-10-2024 Hematocrit (Bld) [Volume fraction] 30.6 % 42.0-54.0 [facility] Hemoglobin [Mass/volume] in Bloodon 01-10-2024 Hemoglobin (Bld) [Mass/Vol] 9.6 g/dL 14.0-18.0 [facility] Laboratory - Chemistry and C hemistry - challengeon 01-10-2024 Albumin [Mass/Vol] 2.8 g/dL 3.4-5.0 [facility] ALP [Catalytic activity/Vol] 90 U/L 46-116 [facility] ALT [Catalytic activity/Vol] 20 U/L 16-63 [facility] AST [Catalytic activity/Vol] 12 U/L 15-37 [facility] Bilirubin [Mass/Vol] 1.6 mg/dL 0.2-1.0 [facility] Calcium [Mass/Vol] 8.9 mg/dL 8.5-10.1 [facility] Chloride [Moles/Vol] 105 mmol/L 98-107 [facility] CO2 [Moles/Vol] 27.1 mmol/L 21.0-32.0 [facility] Creatinine [Mass/Vol] 1.65 mg/dL 0.70-1.30 [facility] GFR/1.73 sq M.predicted MDRD (S/P/Bld) [Vol rate/Area] 48 mL/min/{1.73_m2} >=60 [facility] Glucose [Mass/Vol] 91 mg/dL 74-106 [facility] Natriuretic peptide B (Bld) [Mass/Vol] 2269.0 pg/mL <=1800.0 [facility] Comment on above: RESULTS CALLED TO [Aristeo PERALTA/RN]@BY Adeline Sam 0624 Potassium [Moles/Vol] 4.9 mmol/L 3.5-5.1 [facility] Protein [Mass/Vol] 6.8 g/dL 6.4-8.2 [facility] Sodium [Moles/Vol] 140 mmol/L 136-145 [facility] T4 [Mass/Vol] 5.20 ug/dL 4.50-12.10 [facility] Urea nitrogen [Mass/Vol] 63.0 mg/dL 7.0-18.0 [facility] Urea nitrogen/Creatinine [Mass ratio] 38.2 mg/mg [facility] Laboratory - Hematology and Cell countson 01-10-2024 Immature granulocytes/100 WBC (Bld) 0.3 % 0.0-0.5 [facility] Leukocytes [#/volume] correc ayan for nucleated erythrocytes in Blood by Automated counon 01-10-2024 WBC corrected for nucl RBC Auto (Bld) [#/Vol] 3.9 10 3/uL 4.0-11.0 [facility] Lymphocytes Auto (Bld) [#/Vo l]on 01-10-2024 Lymphocytes (Bld) [#/Vol] 0.9 10 3/uL 1.2-3.8 [facility] Lymphocytes/100 WBC Auto (Bl d)on 01-10-2024 Lymphocytes/100 WBC (Bld) 21.8 % 20.5-60.0 [facility] MCH Auto (RBC) [Entitic mass ]on 01-10-2024 MCH (RBC) [Entitic mass] 34.7 pg 25.9-34.0 [facility] MCHC Auto (RBC) [Mass/Vol]on 01-10-2024 MCHC (RBC) [Mass/Vol] 31.4 g/dL 29.9-35.2 [facility] MCV Auto (RBC) [Entitic vol] on 01-10-2024 MCV (RBC) [Entitic vol] 110.5 fL 80.0-94.0 [facility] Monocytes Auto (Bld) [#/Vol] on 01-10-2024 Monocytes (Bld) [#/Vol] 0.6 10 3/uL 0.3-0.8 [facility] Monocytes/100 WBC Auto (Bld) on 01-10-2024 Monocytes/100 WBC (Bld) 15.4 % 1.7-12.0 [facility] Neutrophils Auto (Bld) [#/Vo l]on 01-10-2024 Neutrophils (Bld) [#/Vol] 2.4 10 3/uL 1.4-6.5 [facility] Neutrophils/100 WBC Auto (Bl d)on 01-10-2024 Neutrophils/100 WBC (Bld) 60.9 % 43.0-75.0 [facility] No Panel Informationon 01-10 Digoxin Level 1.6 ng/mL 0.9-2.0 [facility] Eosinophils # (Auto) 0.1 10 3/uL 0.0-0.7 [facility] Free Triiodothyronine 1.89 pg/mL 2.18-3.98 [facility] Immature Granulocyte # (Auto) 0.01 10 3/uL 0.00-0.03 [facility] Platelet mean volume Auto (B ld) [Entitic vol]on 01-10-2024 Platelet mean volume (Bld) [Entitic vol] 11.8 fL 9.5-13.5 [facility] Platelets Auto (Bld) [#/Vol] on 01-10-2024 Platelets (Bld) [#/Vol] 66 10 3/uL 150-450 [facility] RBC Auto (Bld) [#/Vol]on RBC (Bld) [#/Vol] 2.77 10 6/uL 4.70-6.10 [facility] Serum or plasma albumin/glob ulin mass ratioon 01-10-2024 Albumin/Globulin [Mass ratio] 0.7 {ratio} [facility] Serum or plasma anion gap de terminationon 01-10-2024 Anion gap [Moles/Vol] 12.8 mmol/L [facility] Basophils Auto (Bld) [#/Vol] on 01-09-2024 Basophils (Bld) [#/Vol] 0.0 10 3/uL 0.0-0.1 [facility] Basophils/100 WBC Auto (Bld) on 01-09-2024 Basophils/100 WBC (Bld) 0.3 % 0.2-2.0 [facility] Eosinophils/100 WBC Auto (Bl d)on 01-09-2024 Eosinophils/100 WBC (Bld) 1.5 % 0.9-7.0 [facility] Erythrocyte distribution wid th Auto (RBC) [Ratio]on 01-09-2024 Erythrocyte distribution width (RBC) [Ratio] 16.1 % 11.0-15.0 [facility] Estimated glomerular filtrat ion rate (GFR) non- Americanon 01-09-2024 GFR/1.73 sq M.predicted among non-blacks MDRD (S/P/Bld) [Vol rate/Area] 39 mL/min/{1.73_m2} >=60 [facility] Globulin Calc (S) [Mass/Vol] on 01-09-2024 Globulin (S) [Mass/Vol] 3.9 g/dL [facility] Hematocrit Auto (Bld) [Volum e fraction]on 01-09-2024 Hematocrit (Bld) [Volume fraction] 28.9 % 42.0-54.0 [facility] Hemoglobin [Mass/volume] in Bloodon 01-09-2024 Hemoglobin (Bld) [Mass/Vol] 9.0 g/dL 14.0-18.0 [facility] Laboratory - Chemistry and C hemistry - challengeon 01-09-2024 Albumin [Mass/Vol] 2.8 g/dL 3.4-5.0 [facility] ALP [Catalytic activity/Vol] 82 U/L 46-116 [facility] ALT [Catalytic activity/Vol] 20 U/L 16-63 [facility] AST [Catalytic activity/Vol] 12 U/L 15-37 [facility] Bilirubin [Mass/Vol] 1.3 mg/dL 0.2-1.0 [facility] Calcium [Mass/Vol] 8.7 mg/dL 8.5-10.1 [facility] Chloride [Moles/Vol] 104 mmol/L 98-107 [facility] CO2 [Moles/Vol] 28.1 mmol/L 21.0-32.0 [facility] Creatinine [Mass/Vol] 1.66 mg/dL 0.70-1.30 [facility] GFR/1.73 sq M.predicted MDRD (S/P/Bld) [Vol rate/Area] 48 mL/min/{1.73_m2} >=60 [facility] Glucose [Mass/Vol] 76 mg/dL 74-106 [facility] Natriuretic peptide B (Bld) [Mass/Vol] 2379.0 pg/mL <=1800.0 [facility] Comment on above: RESULTS CALLED TO SANJUANITA CANALES/RN@BY Adeline Sam 0645 Potassium [Moles/Vol] 4.7 mmol/L 3.5-5.1 [facility] Protein [Mass/Vol] 6.7 g/dL 6.4-8.2 [facility] Sodium [Moles/Vol] 139 mmol/L 136-145 [facility] Urea nitrogen [Mass/Vol] 69.0 mg/dL 7.0-18.0 [facility] Urea nitrogen/Creatinine [Mass ratio] 41.6 mg/mg [facility] Laboratory - Hematology and Cell countson 01-09-2024 Immature granulocytes/100 WBC (Bld) 0.3 % 0.0-0.5 [facility] Leukocytes [#/volume] correc ayan for nucleated erythrocytes in Blood by Automated counon 01-09-2024 WBC corrected for nucl RBC Auto (Bld) [#/Vol] 3.3 10 3/uL 4.0-11.0 [facility] Lymphocytes Auto (Bld) [#/Vo l]on 01-09-2024 Lymphocytes (Bld) [#/Vol] 0.7 10 3/uL 1.2-3.8 [facility] Lymphocytes/100 WBC Auto (Bl d)on 01-09-2024 Lymphocytes/100 WBC (Bld) 21.6 % 20.5-60.0 [facility] MCH Auto (RBC) [Entitic mass ]on 01-09-2024 MCH (RBC) [Entitic mass] 34.1 pg 25.9-34.0 [facility] MCHC Auto (RBC) [Mass/Vol]on 01-09-2024 MCHC (RBC) [Mass/Vol] 31.1 g/dL 29.9-35.2 [facility] MCV Auto (RBC) [Entitic vol] on 01-09-2024 MCV (RBC) [Entitic vol] 109.5 fL 80.0-94.0 [facility] Monocytes Auto (Bld) [#/Vol] on 01-09-2024 Monocytes (Bld) [#/Vol] 0.6 10 3/uL 0.3-0.8 [facility] Monocytes/100 WBC Auto (Bld) on 01-09-2024 Monocytes/100 WBC (Bld) 18.3 % 1.7-12.0 [facility] Neutrophils Auto (Bld) [#/Vo l]on 01-09-2024 Neutrophils (Bld) [#/Vol] 1.9 10 3/uL 1.4-6.5 [facility] Neutrophils/100 WBC Auto (Bl d)on 01-09-2024 Neutrophils/100 WBC (Bld) 58.0 % 43.0-75.0 [facility] No Panel Informationon 01-09 Eosinophils # (Auto) 0.1 10 3/uL 0.0-0.7 [facility] Immature Granulocyte # (Auto) 0.01 10 3/uL 0.00-0.03 [facility] Platelet mean volume Auto (B ld) [Entitic vol]on 01-09-2024 Platelet mean volume (Bld) [Entitic vol] 12.0 fL 9.5-13.5 [facility] Platelets Auto (Bld) [#/Vol] on 01-09-2024 Platelets (Bld) [#/Vol] 76 10 3/uL 150-450 [facility] RBC Auto (Bld) [#/Vol]on RBC (Bld) [#/Vol] 2.64 10 6/uL 4.70-6.10 [facility] Serum or plasma albumin/glob ulin mass ratioon 01-09-2024 Albumin/Globulin [Mass ratio] 0.7 {ratio} [facility] Serum or plasma anion gap de terminationon 01-09-2024 Anion gap [Moles/Vol] 11.6 mmol/L [facility] Laboratory - Chemistry and C hemistry - challengeon 01-08-2024 Free T4 [Mass/Vol] 0.97 ng/dL 0.76-1.46 [facility] TSH Qn 17.442 m[IU]/L 0.358-3.740 [facility] - Microbiology an d Antimicrobial susceptibilityon 01-08-2024 S. agalactiae Org specific cx Ql (Vag fld) Not detected NOT DETECTE [facility] No Panel Informationon 01-08 Troponin I High Sensitivity 40.0 pg/mL 4.0-76.1 [facility] Comment on above: CUT-OFF POINTS HAVE [...] kaycee cmplx PCR Not detected NOT DETECTE [facility] Bacteroides fragilis (PCR) Not detected NOT DETECTE [facility] Blood Culture Source Blood [facility] Brittany albicans (PCR) Not detected NOT DETECTE [facility] Brittany auris (PCR) Not detected NOT DETECTE [facility] Brittany glabrata (PCR) Not detected NOT DETECTE [facility] Brittany krusei (PCR) Not detected NOT DETECTE [facility] Brittany parapsilosis (PCR) Not detected NOT DETECTE [facility] Brittany tropicalis (PCR) Not detected NOT DETECTE [facility] Crypto neoformans/gattii (PCR)(LAB) Not detected NOT DETECTE [facility] CTX-M ESBL (PCR) NOT APPLICABLE NOT DETECTE [facility] Enterobacter cloacae complex (PCR) Not detected NOT DETECTE [facility] Enterobacterales (PCR) Not detected NOT DETECTE [facility] Enterococcus faecalis PCR Not detected NOT DETECTE [facility] Enterococcus faecium PCR Not detected NOT DETECTE [facility] Escherichia coli Result Not detected NOT DETECTE [facility] Haemophilus influenzae DNA Not detected NOT DETECTE [facility] IMP (blaIMP) Carbap Res Gene (PCR) NOT APPLICABLE NOT DETECTE [facility] Klebsiella aerogenes (PCR) Not detected NOT DETECTE [facility] Klebsiella oxytoca (PCR) Not detected NOT DETECTE [facility] Klebsiella pneumoniae group (PCR) Not detected NOT DETECTE [facility] KPC (blaKPC) Detection (PCR) NOT APPLICABLE NOT DETECTE [facility] Listeria monocytogenes (PCR) Not detected NOT DETECTE [facility] MCR-1 Resistance Gene NOT APPLICABLE NOT DETECT E [facility] mecA/C & MREJ Antimicrob Resist Gen NOT APPLICABLE NOT DETECTE [facility] mecA/C-Methicillin Resistance Gene NOT APPLICABLE NOT DETECTE [facility] NDM (blaNDM) Detection (PCR) NOT APPLICABLE NOT DETECTE [facility] Neisseria meningitidis (PCR) Not detected NOT DETECTE [facility] Proteus species (PCR) Not detected NOT DETECTE [facility] Pseudomonas aeruginosa (PCR) Not detected NOT DETECTE [facility] Salmonella spp. (PCR) Not detected NOT DETECTE [facility] Serratia marcescens (PCR) Not detected NOT DETECTE [facility] Staphylococcus aureus (PCR)(LAB) Not detected NOT DETECTE [facility] Staphylococcus epidermidis (PCR) Not detected NOT DETECTE [facility] Staphylococcus lugdunensis (TEM-PCR Not detected NOT DETECTE [facility] Staphylococcus species (PCR) Not detected NOT DETECTE [facility] Stenotroph. maltophilia (PCR) Not detected NOT DETECTE [facility] Streptococcus pneumoniae (PCR) Not detected NOT DETECTE [facility] Streptococcus pyogenes (PCR)(LAB) Not detected NOT DETECTE [facility] Streptococcus species (PCR) Not detected NOT DETECTE [facility] Syn OXA-48-like Carb Res Gene (PCR) NOT APPLICABLE NOT DETECTE [facility] Deion/B-Vancomycin Resistance Genes NOT APPLICABLE NOT DETECTE [facility] VIM (blaVIM) Carbap Res Gene (PCR) NOT APPLICABLE NOT DETECTE [facility] No Panel InformationOrdered By: Timo Francis on 01-08-2024 Blood Culture 2 [facility] Blood Culture 1 [facility] Office Visiton 01-01-2024 Follow-up visit [id number] Samson Kelley 1935 M Date Provider Department Center 01/01/2024 Clint-MARGARITA HERNANDEZ [facility] No family history on file Level of Service:67185 AL OFFICE/OUTPATIENT ESTABLISHED MOD MDM 30 MIN Normal [facility] Ambulatory Visit Summaryon 1 Ambulatory Visit Summary WARREN SAMSON Trivedi :1935 Visit Date:09/21/2022 Ambulatory Visit Instructions Your Diagnosis Urge incontinence History of prostate cancer Tests Performed Urnls Dip Stick Auto w/o Microscopy POC 99518 Your Care Team Attending Physician - MARYBETH [...] When: Only if needed Where: [address] [place] [address] [phone] Medications What How Much When Instructions Unchanged oxybutynin (oxybutynin 5 mg ER Tab) 1 Tablets By Mouth Every day Pickup at [facility] Unchanged ascorbic acid (Vitamin C) Every [...] physician if questions or concerns Pharmacy Information [facility]: [address] [place], [place] [phone] Test Results Urnls Dip Stick Auto w/o Microscopy POC 00613 (09/21/2022) Bilirubin Urine Dipstick - Negative Blood Urine Dipstick - Negative Glucose Urine Dipstick - Negative Ketones Urine Dipstick - Negative Leukocytes Urine Dipstick - Negative Nitrite Urine Dipstick - Negative Protein Urine Dipstick - Negative Specific Remus Urine Dipstick - 1.015 Urine Appearance Urine [...] hematuria History of prostate cancer Hyperlipidemia Hypertension residential current use of antithrombotics/anti platelets Post-void dribbling [...] Are older than age 65. ? Are -Citizen Of [place]. ? Are obese. ? Have a family [...] during urination (more content not included)... Normal [facility] Ambulatory Visit Summary SAMSON KELLEY :1935 Visit Date:09/21/2022 Ambulatory Visit Instructions Your Diagnosis Urge incontinence History of prostate cancer Tests Performed Urnls Dip Stick Auto w/o Microscopy POC 99498 Your Care Team Attending Physician - MARYBETH [...] if needed Where: 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 ? Are -Citizen Of [place]. ? Are obese. ? Have a family [...] upper thi (more content not included)... Normal [facility] Patient Educationon 09-21-20 22 Patient Education Oncology [...] Are older than age 65. ? Are -Citizen Of [place]. ? Are obese. ? Have a family [...] Follow these instructions at home: ? Take zfrg-bae-ebyzhib and prescription medicines only as told by [...] cancer specialis (more content not included)... Normal [facility] Urology Office/Clinic Noteon 09-21-2022 Urology [...] MARYBETH STANLEY PA-C, URL Only if needed [address] [place] [address] [phone] Additional Instructions: Patient Education Prostate Cancer Rebecca Vásquez personally scribed for Marybeth Stanley PA-C on 09/21/2022 12:37:29. . Documentation recorded by the rehan Mares accurately reflects the services(s) I performed and decisions made by me. Authenticated by Marybeth Stanley PA-C on 09/21/2022 12:42:06. 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 Cholecystitis Gross hematuria History of prostate cancer Hyperlipidemia Hypertension residential current use of antithrombotics/anti platelets Post-void dribbling [...] Father. Immunizations Vaccine Date Status Comments SARSCoV2 mRNA(tozixavierer-valeria- sucros) vac 04/26/2022 Recorded SARS-CoV-2 (COVID-19) mRNA [...] 09/05/2016 Rec (more content not included)... Normal [facility] Comment on above: Result Comment: Elec tronically Signed By: KENNETH SHEPARD, MARYBETH Trivedi\.br\Date and Time Signed: 09/21/22 13:18 EDT CBC AUTO DIFFon 09-06-2022 BASO # 0.0 103/ul Normal 0.0-0.1 [facility] Comment on above: Performed By: #### C #### [facility] [address] [address] [address] Kirk García Basophils/100 WBC (Bld) 0.5 % Normal 0.2-2.0 [facility] Comment on above: Performed By: #### C BC #### [facility] [address] [address] [address] Kirk García EO # 0.1 103/ul Normal 0.0-0.7 [facility] Comment on above: Performed By: #### C BC #### [facility] [address] [address] [address] Kirk García Eosinophils/100 WBC (Bld) 1.2 % Normal 0.9-7.0 [facility] Comment on above: Performed By: #### C BC #### [facility] [address] [place] [address] Dr. Kirk García Erythrocyte distribution width (RBC) [Ratio] 14.2 % Normal 11.0-15.0 [facility] Comment on above: Performed By: #### C BC #### [facility] [address] [place] [address] Dr. Kirk García Hematocrit (Bld) [Volume fraction] 35.6 % Critically low 42.0-54.0 [facility] Comment on above: Performed By: #### C BC #### [facility] [address] [place] [address] Dr. Kirk García Hemoglobin (Bld) [Mass/Vol] 11.7 g/dL Critically low 14.0-18.0 [facility] Comment on above: Performed By: #### C BC #### [facility] [address] [place] [address] Dr. Kirk García IG # 0.04 10e3/ul Critically high 0.00-0.03 [facility] Comment on above: Performed By: #### C BC #### [facility] [address] [address] [address] Kirk García IG % 0.6 % Critically high 0.0-0.5 [facility] Comment on above: Performed By: #### C BC #### [facility] [address] [address] [address] Kirk García LYMPH # 1.7 103/ul Normal 1.2-3.8 [facility] Comment on above: Performed By: #### C BC #### [facility] [address] [address] [address] Kirk García Lymphocytes/100 WBC (Bld) 25.7 % Normal 20.5-60.0 [facility] Comment on above: Performed By: #### C BC #### [facility] [address] [address] [address] Kirk García MANUAL DIFF REQ NO Normal [facility] Comment on above: Performed By: #### C BC #### [facility] [address] [place] [address] Dr. Kirk García MCH (RBC) [Entitic mass] 34.1 pg Critically high 25.9-34.0 [facility] Comment on above: Performed By: #### C BC #### [facility] [address] [place] [address] Dr. Kirk García MCHC (RBC) [Mass/Vol] 32.9 g/dL Normal 29.9-35.2 [facility] Comment on above: Performed By: #### C BC #### [facility] [address] [place] [address] Dr. Kirk García MCV (RBC) [Entitic vol] 103.8 fL Critically high 80.0-94.0 [facility] Comment on above: Performed By: #### C BC #### [facility] [address] [place] [address] Dr. Kirk García MONO # 1.1 103/ul Critically high 0.3-0.8 [facility] Comment on above: Performed By: #### C BC #### [facility] [address] [place] [address] Dr. Kirk García Monocytes/100 WBC (Bld) 17.7 % Critically high 1.7-12.0 [facility] Comment on above: Performed By: #### C BC #### [facility] [address] [address] [address] Kirk García NEUT # 3.5 103/ul Normal 1.4-6.5 [facility] Comment on above: Performed By: #### C BC #### [facility] [address] [address] [address] Kirk García Neutrophils/100 WBC (Bld) 54.3 % Normal 43.0-75.0 [facility] Comment on above: Performed By: #### C BC #### [facility] [address] [place] [address] Dr. Kirk García Platelet mean volume (Bld) [Entitic vol] 10.1 fL Normal 9.5-13.5 [facility] Comment on above: Performed By: #### C BC #### [facility] [address] [address] [address] Kirk García PLT 153 103/ul Normal 150-450 [facility] Comment on above: Performed By: #### C BC #### [facility] [address] [place] [address] Dr. Kirk García RBC 3.43 106/ul Critically low 4.70-6.10 [place] Comment on above: Performed By: #### C BC #### [facility] [address] [place] [address] Dr. Kirk García WBC 6.5 103/ul Normal 4.0-11.0 [facility] Comment on above: Performed By: #### C BC #### [facility] [address] [place] [address] Dr. Kirk García PROF CHEM 8 (BAS METB)on Anion gap [Moles/Vol] 10.8 mmol/L Normal [facility] Comment on above: Performed By: #### B MP #### [facility] [address] [place] [address] Dr. Kirk García Calcium [Mass/Vol] 9.2 mg/dL Normal 8.5-10.1 [facility] Comment on above: Performed By: #### B MP #### [facility] [address] [address] [address] Kirk García Chloride [Moles/Vol] 101 mmol/L Normal 98-107 [facility] Comment on above: Performed By: #### B MP #### [facility] [address] [address] [address] Kirk García CO2 [Moles/Vol] 30.9 mmol/L Normal 21.0-32.0 [facility] Comment on above: Performed By: #### B MP #### [facility] [address] [address] [address] Kirk García Creatinine [Mass/Vol] 1.54 mg/dL Critically high 0.70-1.30 [facility] Comment on above: Performed By: #### B MP #### [facility] [address] [address] [address] Kirk García EGFR-AF COMORAN 52 mL/min/1.73m2 Critically low >=60 [facility] Comment on above: Performed By: #### B MP #### [facility] [address] [address] [address] Kirk García EGFR-NON AF COMORAN 43 mL/min/1.73m2 Critically low >=60 [facility] Comment on above: Performed By: #### B MP #### [facility] [address] [address] [address] Kirk García Glucose [Mass/Vol] 106 mg/dL Normal 74-106 [facility] Comment on above: Performed By: #### B MP #### [facility] [address] [address] [address] Kirk García Potassium [Moles/Vol] 4.7 mmol/L Normal 3.5-5.1 [facility] Comment on above: Performed By: #### B MP #### [facility] [address] [address] [address] Kirk García Sodium [Moles/Vol] 138 mmol/L Normal 136-145 [facility] Comment on above: Performed By: #### B MP #### [facility] [address] [address] [address] Kirk García Urea nitrogen [Mass/Vol] 28.0 mg/dL Critically high 7.0-18.0 [facility] Comment on above: Performed By: #### B MP #### [facility] [address] [place] [address] Dr. Kirk García Urea nitrogen/Creatinine [Mass ratio] 18.2 mg/mg Normal [facility] Comment on above: Performed By: #### B MP #### [facility] [address] [place] [address] Dr. Kirk García CBC W MANUAL DIFFon 08-15-20 ATYPICAL LYMPH # 1.62 103/ul Normal [facility] Comment on above: Performed By: #### U MICRO, ERUR #### [facility] [address] [place] [address] Dr. Kirk García ATYPICAL LYMPH % 12 % Normal The [facility] Comment on above: Performed By: #### U MICRO, ERUR #### [facility] [address] [place] [address] Dr. Kirk García BAND # 0.1 103/ul Normal 0.0-0.3 The [facility] Comment on above: Performed By: #### U MICRO, ERUR #### [facility] [address] [place] [address] Dr. Kirk García BAND % 1 % Normal 0-5 [facility] Comment on above: Performed By: #### U MICRO, ERUR #### [facility] [address] [place] [address] Dr. Kirk García BASOM # 0.14 103/ul Critically high 0.00-0.10 The [facility] Comment on above: Performed By: #### U MICRO, ERUR #### [facility] [address] [place] [address] Dr. Kirk García BASOM % 1.0 % Normal 0.2-2.0 The [facility] Comment on above: Performed By: #### U MICRO, ERUR #### [facility] [address] [place] [address] Dr. Kirk García BLAST # Normal [facility] Comment on above: Performed By: #### U MICRO, ERUR #### [facility] [address] [address] [address] Kirk García BLAST % Normal [facility] Comment on above: Performed By: #### U MICRO, ERUR #### [facility] [address] [address] [address] Kirk García CORRECTED WBC Normal 4.0-11.0 The [facility] Comment on above: Performed By: #### U MICRO, ERUR #### [facility] [address] [address] [address] Kirk García EOS # 0.14 103/ul Normal 0.00-0.70 The [facility] Comment on above: Performed By: #### U MICRO, ERUR #### [facility] [address] [address] [address] Kirk García EOS% 1.0 % Normal 0.9-7.0 [facility] Comment on above: Performed By: #### U MICRO, ERUR #### [facility] [address] [address] [address] Kirk García HCT 40.7 % Critically low 42.0-54.0 [facility] Comment on above: Performed By: #### U MICRO, ERUR #### [facility] [address] [address] [address] Kirk García HGB 13.4 g/dl Critically low 14.0-18.0 The [facility] Comment on above: Performed By: #### U MICRO, ERUR #### [facility] [address] [address] [address] Kirk García LYMPHM # 0.54 103/ul Critically low 1.20-3.80 The [facility] Comment on above: Performed By: #### U MICRO, ERUR #### [facility] [address] [address] [address] Kirk García LYMPHM% 4.0 % Critically low 20.5-60.0 The [facility] Comment on above: Performed By: #### U MICRO, ERUR #### [facility] [address] [address] [address] Kirk García MCH 34.2 pg Critically high 25.9-34.0 The [facility] Comment on above: Performed By: #### U MICRO, ERUR #### [facility] [address] [place] [address] Dr. Kirk García MCHC 32.9 g/dl Normal 29.9-35.2 The [facility] Comment on above: Performed By: #### U MICRO, ERUR #### [facility] [address] [place] [address] Dr. Kirk García MCV 103.8 fL Critically high 80.0-94.0 The [facility] Comment on above: Performed By: #### U MICRO, ERUR #### [facility] [address] [place] [address] Dr. Kirk García METAMYELOCYTE # Normal The [facility] Comment on above: Performed By: #### U MICRO, ERUR #### [facility] [address] [address] [address] Kirk García METAMYELOCYTE % Normal The [facility] Comment on above: Performed By: #### U MICRO, ERUR #### [facility] [address] [place] [address] Dr. Kirk García MONOM# 1.08 103/ul Critically high 0.30-0.80 [facility] Comment on above: Performed By: #### U MICRO, ERUR #### [facility] [address] [address] [address] Kirk García MONOM% 8.0 % Normal 1.7-12.0 The [facility] Comment on above: Performed By: #### U MICRO, ERUR #### [facility] [address] [place] [address] Dr. Kirk García MPV 10.7 fL Normal 9.5-13.5 [facility] Comment on above: Performed By: #### U MICRO, ERUR #### [facility] [address] [place] [address] Dr. Kirk García MYELOCYTE # Normal The [facility] Comment on above: Performed By: #### U MICRO, ERUR #### [facility] [address] [address] [address] Kirk García MYELOCYTE % Normal [facility] Comment on above: Performed By: #### U MICRO, ERUR #### [facility] [address] [address] [address] Kirk García NRBC Normal [facility] Comment on above: Performed By: #### U MICRO, ERUR #### [facility] [address] [address] [address] Kirk García PLT 140 103/ul Critically low 150-450 [facility] Comment on above: Performed By: #### U MICRO, ERUR #### [facility] [address] [address] [address] Kirk García RBC 3.92 106/ul Critically low 4.70-6.10 [place] Comment on above: Performed By: #### U MICRO, ERUR #### [facility] [address] [place] [address] Dr. Kirk García RDW 14.0 % Normal 11.0-15.0 [facility] Comment on above: Performed By: #### U MICRO, ERUR #### [facility] [address] [address] [address] Kirk García SEG # 9.86 103/ul Critically high 1.40-6.50 [facility] Comment on above: Performed By: #### U MICRO, ERUR #### [facility] [address] [address] [address] Kirk García SEG % 73.0 % Normal 43.0-75.0 The [facility] Comment on above: Performed By: #### U MICRO, ERUR #### [facility] [address] [address] [address] Kirk Gracía TOXIC GRANULATION 2+ Normal [facility] Comment on above: Performed By: #### U MICRO, ERUR #### [facility] [address] [address] [address] Kirk García WBC 13.5 103/ul Critically high 4.0-11.0 [facility] Comment on above: Performed By: #### U MICRO, ERUR #### [facility] [address] [place] [address] Dr. Kirk García PROF 14(COMP METB)on 022 Albumin [Mass/Vol] 3.0 g/dL Critically low 3.4-5.0 Th e [facility] Comment on above: Performed By: #### C MP #### [facility] [address] [place] [address] Dr. Kirk García Albumin/Globulin [Mass ratio] 0.8 {ratio} Normal [facility] Comment on above: Performed By: #### C MP #### [facility] [address] [place] [address] Dr. Kirk García ALP [Catalytic activity/Vol] 81 U/L Normal 46-116 [facility] Comment on above: Performed By: #### C MP #### [facility] [address] [place] [address] Dr. Kirk García ALT [Catalytic activity/Vol] 50 U/L Normal 16-63 [facility] Comment on above: Performed By: #### C MP #### [facility] [address] [place] [address] Dr. Kirk García Anion gap [Moles/Vol] 8.2 mmol/L Normal [facility] Comment on above: Performed By: #### C MP #### [facility] [address] [place] [address] Dr. Kirk García AST [Catalytic activity/Vol] 14 U/L Critically low 15-37 [facility] Comment on above: Performed By: #### C MP #### [facility] [address] [place] [address] Dr. Kirk García Bilirubin [Mass/Vol] 0.9 mg/dL Normal 0.2-1.0 [facility] Comment on above: Performed By: #### C MP #### [facility] [address] [place] [address] Dr. Kirk García Calcium [Mass/Vol] 9.3 mg/dL Normal 8.5-10.1 [facility] Comment on above: Performed By: #### C MP #### [facility] [address] [place] [address] Dr. Kirk García Chloride [Moles/Vol] 100 mmol/L Normal 98-107 [facility] Comment on above: Performed By: #### C MP #### [facility] [address] [address] [address] Kirk García CO2 [Moles/Vol] 33.1 mmol/L Critically high 21.0-32.0 [facility] Comment on above: Performed By: #### C MP #### [facility] [address] [place] [address] Dr. Kirk García Creatinine [Mass/Vol] 1.56 mg/dL Critically high 0.70-1.30 [facility] Comment on above: Performed By: #### C MP #### [facility] [address] [place] [address] Dr. Kirk García EGFR-AF COMORAN 51 mL/min/1.73m2 Critically low >=60 [facility] Comment on above: Performed By: #### C MP #### [facility] [address] [place] [address] Dr. Kirk García EGFR-NON AF COMORAN 42 mL/min/1.73m2 Critically low >=60 [facility] Comment on above: Performed By: #### C MP #### [facility] [address] [place] [address] Dr. Kirk García Globulin (S) [Mass/Vol] 3.7 g/dL Normal [facility] Comment on above: Performed By: #### C MP #### [facility] [address] [address] [address] Kirk García Glucose [Mass/Vol] 107 mg/dL Critically high 74-106 [facility] Comment on above: Performed By: #### C MP #### [facility] [address] [place] [address] Dr. Kirk García Potassium [Moles/Vol] 5.3 mmol/L Critically high 3.5-5.1 [facility] Comment on above: Performed By: #### C MP #### [facility] [address] [address] [address] Kirk García Protein [Mass/Vol] 6.7 g/dL Normal 6.4-8.2 [facility] Comment on above: Performed By: #### C MP #### [facility] [address] [address] [address] Kirk García Sodium [Moles/Vol] 136 mmol/L Normal 136-145 [facility] Comment on above: Performed By: #### C MP #### [facility] [address] [address] [address] Kirk García Urea nitrogen [Mass/Vol] 50.0 mg/dL Critically high 7.0-18.0 [facility] Comment on above: Performed By: #### C MP #### [facility] [address] [address] [address] Kirk García Urea nitrogen/Creatinine [Mass ratio] 32.1 mg/mg Normal [facility] Comment on above: Performed By: #### C MP #### [facility] [address] [address] [address] Kirk García CULTURE URINEon 08-14-2022 CULTURE URINE Culture Observations: NO GROWTH. Normal [facility] Comment on above: Performed By: #### U MICRO, ERUR #### [facility] [address] [address] [address] Kirk García ER URINE PROFILEon Bilirubin Ql (U) Negative Normal NEGATIVE [facility] Comment on above: Performed By: #### U MICRO, ERUR #### [facility] [address] [address] [address] Kirk García Clarity (U) CLEAR Normal CLEAR [facility] Comment on above: Performed By: #### U MICRO, ERUR #### [facility] [address] [address] [address] Kirk García Color (U) ORANGE Abnormal YELLOW [facility] Comment on above: Performed By: #### U MICRO, ERUR #### [facility] [address] [address] [address] Kirk GRUBBS A micrscopic examination will be performed if indicated. Normal The [facility] Comment on above: Performed By: #### U MICRO, ERUR #### [facility] [address] [address] [address] Kirk García Glucose Ql (U) Negative Normal NEGATIVE The [facility] Comment on above: Performed By: #### U MICRO, ERUR #### [facility] [address] [address] [address] Kirk García Hemoglobin Ql (U) LARGE Abnormal NEGATIVE The [facility] Comment on above: Performed By: #### U MICRO, ERUR #### [facility] [address] [address] [address] Kirk García Ketones Ql (U) TRACE Abnormal NEGATIVE The [facility] Comment on above: Performed By: #### U MICRO, ERUR #### [facility] [address] [address] [address] Kirk García LEUKOCYTES MODERATE Abnormal NEGATIVE The [facility] Comment on above: Performed By: #### U MICRO, ERUR #### [facility] [address] [address] [address] Kirk García Nitrite Ql (U) Negative Normal NEGATIVE The [facility] Comment on above: Performed By: #### U MICRO, ERUR #### [facility] [address] [address] [address] Kirk García pH (U) 5.5 [pH] Normal 5-9 The [facility] Comment on above: Performed By: #### U MICRO, ERUR #### [facility] [address] [address] [address] Kirk García Protein (U) [Mass/Vol] 100 mg/dL Abnormal NEGAT DANYELL/ TRACE The [facility] Comment on above: Performed By: #### U MICRO, ERUR #### [facility] [address] [address] [address] Kirk García SPEC GRAVITY 1.025 Normal 1.005-<=1.02 5 [facility] Comment on above: Performed By: #### U MICRO, ERUR #### [facility] [address] [address] [address] Kirk García UR MICRO IND INDICATED Normal The [facility] Comment on above: Performed By: #### U MICRO, ERUR #### [facility] [address] [address] [address] Kirk García Urobilinogen Qn (U) 1.0 {Ryan'U}/dL Normal 0.2 - 1. 0 The [facility] Comment on above: Performed By: #### U MICRO, ERUR #### [facility] [address] [address] [address] Kirk García URINE MICROSCOPIC ONLYon BACTERIA SMALL Abnormal NONE SEEN The [facility] Comment on above: Performed By: #### U MICRO, ERUR #### [facility] [address] [place] [address] Dr. Kirk García Bacteria identified Cx Nom (U) INDICATED Normal The [facility] Comment on above: Performed By: #### U MICRO, ERUR #### [facility] [address] [place] [address] Dr. Kirk García CAST NONE SEEN Normal NONE SEEN [facility] Comment on above: Performed By: #### U MICRO, ERUR #### [facility] [address] [place] [address] Dr. Kirk García Crystals LM Nom (Urine sed) NONE SEEN Normal NONE SEEN The [facility] Comment on above: Performed By: #### U MICRO, ERUR #### [facility] [address] [place] [address] Dr. Kirk García Epithelial cells LM Ql (Urine sed) RARE Normal NONE SEEN /RARE The [facility] Comment on above: Performed By: #### U MICRO, ERUR #### [facility] [address] [place] [address] Dr. Kirk García MUCOUS NONE SEEN Normal NONE SEEN The [facility] Comment on above: Performed By: #### U MICRO, ERUR #### [facility] [address] [place] [address] Dr. Kirk García RBC 75-100 Abnormal 0-2 The [facility] Comment on above: Performed By: #### U MICRO, ERUR #### [facility] [address] [place] [address] Dr. Kirk García WBC 50-75 Abnormal NONE SEEN The [facility] Comment on above: Performed By: #### U MICRO, ERUR #### [facility] [address] [place] [address] Dr. Kirk García XR KNEE WILBER 4V [...] ANA DALAL Date: 2022-08-14 21:09 Normal The [facility] CBC W MANUAL DIFFon 08-04-20 22 ATYPICAL LYMPH # Normal The [facility] Comment on above: Performed By: #### C CHRISTOPHER #### [facility] [address] [place] [address] Dr. Kirk García ATYPICAL LYMPH % Normal The [facility] Comment on above: Performed By: #### C CHRISTOPHER #### [facility] [address] [place] [address] Dr. Kirk García BAND # 0.0 103/ul Normal 0.0-0.3 The [facility] Comment on above: Performed By: #### C CHRISTOPHER #### [facility] [address] [place] [address] Dr. Kirk García BAND % 1 % Normal 0-5 The [facility] Comment on above: Performed By: #### C CHRISTOPHER #### [facility] [address] [place] [address] Dr. Kirk García BASOM # 0.00 103/ul Normal 0.00-0.10 The [facility] Comment on above: Performed By: #### C CHRISTOPHER #### [facility] [address] [place] [address] Dr. Kirk García BASOM % 0.0 % Critically low 0.2-2.0 [facility] Comment on above: Performed By: #### C CHRISTOPHER #### [facility] [address] [place] [address] Dr. Kirk García BLAST # Normal [facility] Comment on above: Performed By: #### C CHRISTOPHER #### [facility] [address] [place] [address] Dr. Kirk García BLAST % Normal [facility] Comment on above: Performed By: #### C CHRISTOPHER #### [facility] [address] [place] [address] Dr. Kirk García CORRECTED WBC Normal 4.0-11.0 [facility] Comment on above: Performed By: #### C CHRISTOPHER #### [facility] [address] [place] [address] Dr. Kirk García EOS # 0.00 103/ul Normal 0.00-0.70 [facility] Comment on above: Performed By: #### C CHRISTOPHER #### [facility] [address] [place] [address] Dr. Kirk García EOS% 0.0 % Critically low 0.9-7.0 [facility] Comment on above: Performed By: #### C CHRISTOPHER #### [facility] [address] [place] [address] Dr. Kirk García HCT 31.0 % Critically low 42.0-54.0 [facility] Comment on above: Performed By: #### C CHRISTOPHER #### [facility] [address] [place] [address] Dr. Kirk García HGB 10.5 g/dl Critically low 14.0-18.0 [facility] Comment on above: Performed By: #### C CHRISTOPHER #### [facility] [address] [place] [address] Dr. Kirk García LYMPHM # 0.31 103/ul Critically low 1.20-3.80 [place] Comment on above: Performed By: #### C CHRISTOPHER #### [facility] [address] [address] [address] Kirk García LYMPHM% 11.0 % Critically low 20.5-60.0 [facility] Comment on above: Performed By: #### C CHRISTOPHER #### [facility] [address] [address] [address] Kirk García MCH 34.2 pg Critically high 25.9-34.0 [place] Comment on above: Performed By: #### C CHRISTOPHER #### [facility] [address] [address] [address] Kirk García MCHC 33.9 g/dl Normal 29.9-35.2 [facility] Comment on above: Performed By: #### C CHRISTOPHER #### [facility] [address] [place] [address] Dr. Kirk García MCV 101.0 fL Critically high 80.0-94.0 [place] Comment on above: Performed By: #### C CHRISTOPHER #### [facility] [address] [address] [address] Kirk García METAMYELOCYTE # 0.1 103/ul Normal [facility] Comment on above: Performed By: #### C CHRISTOPHER #### [facility] [address] [place] [address] Dr. Kirk García METAMYELOCYTE % 2 % Normal [facility] Comment on above: Performed By: #### C BCLEILA #### [facility] [address] [place] [address] Dr. Kirk García MONOM# 0.03 103/ul Critically low 0.30-0.80 [facility] Comment on above: Performed By: #### C CHRISTOPHER #### [facility] [address] [place] [address] Dr. Kirk García MONOM% 1.0 % Critically low 1.7-12.0 [facility] Comment on above: Performed By: #### C CHRISTOPHER #### [facility] [address] [address] [address] Kirk García MPV 10.7 fL Normal 9.5-13.5 The [facility] Comment on above: Performed By: #### C CHRISTOPHER #### [facility] [address] [address] [address] Kirk García MYELOCYTE # 0.0 103/ul Normal The [facility] Comment on above: Performed By: #### C CHRISTOPHER #### [facility] [address] [address] [address] Kirk García MYELOCYTE % 1 % Normal [facility] Comment on above: Performed By: #### C CHRISTOPHER #### [facility] [address] [place] [address] Dr. Kirk García NRBC Normal [facility] Comment on above: Performed By: #### C CHRISTOPHER #### [facility] [address] [address] [address] Kirk García PLT 84 103/ul Critically low 150-450 [facility] Comment on above: Performed By: #### C CHRISTOPHER #### [facility] [address] [address] [address] Kirk García RBC 3.07 106/ul Critically low 4.70-6.10 [facility] Comment on above: Performed By: #### Jailene WHITE #### [facility] [address] [place] [address] Dr. Kirk García RDW 13.3 % Normal 11.0-15.0 The [facility] Comment on above: Performed By: #### C CHRISTOPHER #### [facility] [address] [place] [address] Dr. Kirk García SEG # 2.35 103/ul Normal 1.40-6.50 The [facility] Comment on above: Performed By: #### C CHRISTOPHER #### [facility] [address] [place] [address] Dr. Kirk García SEG % 84.0 % Critically high 43.0-75.0 [facility] Comment on above: Performed By: #### C CHRISTOPHER #### [facility] [address] [address] [address] Kirk García WBC 2.8 103/ul Critically low 4.0-11.0 [facility] Comment on above: Performed By: #### C CHRISTOPHER #### [facility] [address] [address] [address] Kirk García PROF CHEM 8 (BAS METB)on Anion gap [Moles/Vol] 9.9 mmol/L Normal [facility] Comment on above: Performed By: #### U MICRO, ERUR #### [facility] [address] [address] [address] Kirk García Calcium [Mass/Vol] 7.4 mg/dL Critically low 8.5-10.1 [facility] Comment on above: Performed By: #### U MICRO, ERUR #### [facility] [address] [address] [address] Kirk García Chloride [Moles/Vol] 100 mmol/L Normal 98-107 [facility] Comment on above: Performed By: #### U MICRO, ERUR #### [facility] [address] [address] [address] Kirk García CO2 [Moles/Vol] 23.8 mmol/L Normal 21.0-32.0 [facility] Comment on above: Performed By: #### U MICRO, ERUR #### [facility] [address] [address] [address] Kirk García Creatinine [Mass/Vol] 1.43 mg/dL Critically high 0.70-1.30 [facility] Comment on above: Performed By: #### U MICRO, ERUR #### [facility] [address] [address] [address] Kirk García EGFR-AF COMORAN 57 mL/min/1.73m2 Critically low >=60 [facility] Comment on above: Performed By: #### U MICRO, ERUR #### [facility] [address] [address] [address] Kirk García EGFR-NON AF COMORAN 47 mL/min/1.73m2 Critically low >=60 [facility] Comment on above: Performed By: #### U MICRO, ERUR #### [facility] [address] [place] [address] Dr. Kirk García Glucose [Mass/Vol] 148 mg/dL Critically high 74-106 [facility] Comment on above: Performed By: #### U MICRO, ERUR #### [facility] [address] [place] [address] Dr. Kirk García Potassium [Moles/Vol] 4.7 mmol/L Normal 3.5-5.1 [facility] Comment on above: Performed By: #### U MICRO, ERUR #### [facility] [address] [place] [address] Dr. Kirk García Sodium [Moles/Vol] 129 mmol/L Critically low 136-145 [facility] Comment on above: Performed By: #### U MICRO, ERUR #### [facility] [address] [place] [address] Dr. Kirk García Urea nitrogen [Mass/Vol] 42.0 mg/dL Critically high 7.0-18.0 [facility] Comment on above: Performed By: #### U MICRO, ERUR #### [facility] [address] [place] [address] Dr. Kirk García Urea nitrogen/Creatinine [Mass ratio] 29.4 mg/mg Normal [facility] Comment on above: Performed By: #### U MICRO, ERUR #### [facility] [address] [place] [address] Dr. Kirk García CBC AUTO DIFFon 08-03-2022 BASO # 0.0 103/ul Normal 0.0-0.1 [facility] Comment on above: Performed By: #### C BC #### [facility] [address] [place] [address] Dr. Kirk García Basophils/100 WBC (Bld) 0.0 % Critically low 0.2-2.0 [facility] Comment on above: Performed By: #### C BC #### [facility] [address] [place] [address] Dr. Kirk García EO # 0.0 103/ul Normal 0.0-0.7 [facility] Comment on above: Performed By: #### C BC #### [facility] [address] [place] [address] Dr. Kirk García Eosinophils/100 WBC (Bld) 0.2 % Critically low 0.9-7.0 [facility] Comment on above: Performed By: #### C BC #### [facility] [address] [place] [address] Dr. Kirk García Erythrocyte distribution width (RBC) [Ratio] 13.7 % Normal 11.0-15.0 [facility] Comment on above: Performed By: #### C BC #### [facility] [address] [place] [address] Dr. Kirk García Hematocrit (Bld) [Volume fraction] 34.3 % Critically low 42.0-54.0 [facility] Comment on above: Performed By: #### C BC #### [facility] [address] [place] [address] Dr. Kirk García Hemoglobin (Bld) [Mass/Vol] 11.8 g/dL Critically low 14.0-18.0 [facility] Comment on above: Performed By: #### C BC #### [facility] [address] [place] [address] Dr. Kirk García IG # 0.02 10e3/ul Normal 0.00-0.03 [facility] Comment on above: Performed By: #### C BC #### [facility] [address] [place] [address] Dr. Kirk García IG % 0.4 % Normal 0.0-0.5 The [facility] Comment on above: Performed By: #### C BC #### [facility] [address] [place] [address] Dr. Kirk García LYMPH # 0.9 103/ul Critically low 1.2-3.8 The [facility] Comment on above: Performed By: #### C BC #### [facility] [address] [place] [address] Dr. Kirk García Lymphocytes/100 WBC (Bld) 16.5 % Critically low 20.5-60.0 [facility] Comment on above: Performed By: #### C BC #### [facility] [address] [place] [address] Dr. Kirk García MANUAL DIFF REQ NO Normal [place] Comment on above: Performed By: #### C BC #### [facility] [address] [place] [address] Dr. Kirk García MCH (RBC) [Entitic mass] 34.4 pg Critically high 25.9-34.0 [facility] Comment on above: Performed By: #### C BC #### [facility] [address] [place] [address] Dr. Kirk García MCHC (RBC) [Mass/Vol] 34.4 g/dL Normal 29.9-35.2 [facility] Comment on above: Performed By: #### C BC #### [facility] [address] [place] [address] Dr. Kirk García MCV (RBC) [Entitic vol] 100.0 fL Critically high 80.0-94.0 [facility] Comment on above: Performed By: #### C BC #### [facility] [address] [place] [address] Dr. Kirk García MONO # 1.2 103/ul Critically high 0.3-0.8 [place] Comment on above: Performed By: #### C BC #### [facility] [address] [place] [address] Dr. Kirk García Monocytes/100 WBC (Bld) 22.3 % Critically high 1.7-12.0 [facility] Comment on above: Performed By: #### C BC #### [facility] [address] [place] [address] Dr. Kirk García NEUT # 3.4 103/ul Normal 1.4-6.5 The [facility] Comment on above: Performed By: #### C BC #### [facility] [address] [place] [address] Dr. Kirk García Neutrophils/100 WBC (Bld) 60.6 % Normal 43.0-75.0 [facility] Comment on above: Performed By: #### C BC #### [facility] [address] [place] [address] Dr. Kirk García Platelet mean volume (Bld) [Entitic vol] 11.6 fL Normal 9.5-13.5 [facility] Comment on above: Performed By: #### C BC #### [facility] [address] [place] [address] Dr. Kirk García PLT 99 103/ul Critically low 150-450 [facility] Comment on above: Performed By: #### C BC #### [facility] [address] [place] [address] Dr. Kirk García RBC 3.43 106/ul Critically low 4.70-6.10 [facility] Comment on above: Performed By: #### C BC #### [facility] [address] [place] [address] Dr. Kirk García WBC 5.5 103/ul Normal 4.0-11.0 The [facility] Comment on above: Performed By: #### C BC #### [facility] [address] [place] [address] Dr. Kirk García CULTURE BLOODon 08-03-2022 Microscopic examination of blood, culture Culture Observations: NO GROWTH AT 5 DAYS. Normal [facility] Comment on above: Performed By: #### U MICRO, ERUR #### [facility] [address] [place] [address] Dr. Kirk García Microscopic examination of blood, culture Culture Observations: NO GROWTH AT 5 DAYS. Normal The [facility] Comment on above: Performed By: #### U MICRO, ERUR #### [facility] [address] [place] [address] Dr. Kirk García Covid-19 PCR (CVDTB)on SARS-CoV-2 (COVID-19) RNA SANAZ+probe Ql (Unsp spec) Detected Critically abnormal NOT DETECTED The [facility] Comment on above: Result Comment: This test is not yet approved or cleared by the [place] FDA. When there are no FDA-approved or cleared tests available, and other criteria are met, FDA can make tests available under an emergency access mechanism called an Emergency Use Authorization (EUA). The EUA for this test is supported by the [employer] of Health and Human Service's declaration that [...] used). Performed By: #### C VDTBH #### [facility] [address] [place] [address] Dr. Kirk García GROUP A STREP CULTUREon S. pyogenes Ag Ql (Unsp spec) Culture Observations: NEGATIVE FOR GROUP A STREPTOCOCCUS. Normal [facility] Comment on above: Performed By: #### U MICRO, ERUR #### [facility] [address] [place] [address] Dr. Kirk García PROF 14(COMP METB)on 022 Albumin [Mass/Vol] 3.0 g/dL Critically low 3.4-5.0 Th e [facility] Comment on above: Performed By: #### C MP #### [facility] [address] [place] [address] Dr. Kirk García Albumin/Globulin [Mass ratio] 0.7 {ratio} Normal [facility] Comment on above: Performed By: #### C MP #### [facility] [address] [place] [address] Dr. Kirk García ALP [Catalytic activity/Vol] 76 U/L Normal 46-116 [facility] Comment on above: Performed By: #### C MP #### [facility] [address] [place] [address] Dr. Kirk García ALT [Catalytic activity/Vol] 27 U/L Normal 16-63 [facility] Comment on above: Performed By: #### C MP #### [facility] [address] [place] [address] Dr. Kirk Gracía Anion gap [Moles/Vol] 8.9 mmol/L Normal [facility] Comment on above: Performed By: #### C MP #### [facility] [address] [address] [address] Kirk García AST [Catalytic activity/Vol] 17 U/L Normal 15-37 [facility] Comment on above: Performed By: #### C MP #### [facility] [address] [address] [address] Kirk García Bilirubin [Mass/Vol] 1.3 mg/dL Critically high 0.2-1.0 [facility] Comment on above: Performed By: #### C MP #### [facility] [address] [place] [address] Dr. Kirk García Calcium [Mass/Vol] 8.1 mg/dL Critically low 8.5-10.1 [facility] Comment on above: Performed By: #### C MP #### [facility] [address] [address] [address] Kirk García Chloride [Moles/Vol] 94 mmol/L Critically low 98-107 [facility] Comment on above: Performed By: #### C MP #### [facility] [address] [place] [address] Dr. Kirk García CO2 [Moles/Vol] 27.5 mmol/L Normal 21.0-32.0 [facility] Comment on above: Performed By: #### C MP #### [facility] [address] [address] [address] Kirk García Creatinine [Mass/Vol] 1.65 mg/dL Critically high 0.70-1.30 [facility] Comment on above: Performed By: #### C MP #### [facility] [address] [place] [address] Dr. Kirk García EGFR-AF COMORAN 48 mL/min/1.73m2 Critically low >=60 [facility] Comment on above: Performed By: #### C MP #### [facility] [address] [place] [address] Dr. Kirk García EGFR-NON AF COMORAN 40 mL/min/1.73m2 Critically low >=60 [facility] Comment on above: Performed By: #### C MP #### [facility] [address] [place] [address] Dr. Kirk García Globulin (S) [Mass/Vol] 4.5 g/dL Normal [facility] Comment on above: Performed By: #### C MP #### [facility] [address] [address] [address] Kirk García Glucose [Mass/Vol] 118 mg/dL Critically high 74-106 [facility] Comment on above: Performed By: #### C MP #### [facility] [address] [place] [address] Dr. Kirk García Potassium [Moles/Vol] 4.4 mmol/L Normal 3.5-5.1 [facility] Comment on above: Performed By: #### C MP #### [facility] [address] [place] [address] Dr. Kirk García Protein [Mass/Vol] 7.5 g/dL Normal 6.4-8.2 [facility] Comment on above: Performed By: #### C MP #### [facility] [address] [place] [address] Dr. Kirk García Sodium [Moles/Vol] 126 mmol/L Critically low 136-145 [facility] Comment on above: Performed By: #### C MP #### [facility] [address] [place] [address] Dr. Kirk García Urea nitrogen [Mass/Vol] 36.0 mg/dL Critically high 7.0-18.0 [facility] Comment on above: Performed By: #### C MP #### [facility] [address] [place] [address] Dr. Kirk García Urea nitrogen/Creatinine [Mass ratio] 21.8 mg/mg Normal [facility] Comment on above: Performed By: #### C MP #### [facility] [address] [place] [address] Dr. Kirk García STREPT SCREENon 08-03-2022 STREP SCREEN A Negative Normal NEGATIVE [facility] Comment on above: Performed By: #### U MICRO, ERUR #### [facility] [address] [address] [address] Kirk García XR CHEST 1 Von [...] MILAGROS REEDER Date: 2022-08-03 12:55 Normal The [facility] CBC AUTO DIFFon 07-08-2022 BASO # 0.0 103/ul Normal 0.0-0.1 [facility] Comment on above: Performed By: #### C BC #### [facility] [address] [address] [address] Kirk García Basophils/100 WBC (Bld) 0.5 % Normal 0.2-2.0 The [facility] Comment on above: Performed By: #### C BC #### [facility] [address] [address] [address] Kirk García EO # 0.1 103/ul Normal 0.0-0.7 The [facility] Comment on above: Performed By: #### C BC #### [facility] [address] [address] [address] Kirk García Eosinophils/100 WBC (Bld) 1.4 % Normal 0.9-7.0 The [facility] Comment on above: Performed By: #### C BC #### [facility] [address] [address] [address] Kirk García Erythrocyte distribution width (RBC) [Ratio] 13.4 % Normal 11.0-15.0 [facility] Comment on above: Performed By: #### C BC #### [facility] [address] [place] [address] Dr. Kirk García Hematocrit (Bld) [Volume fraction] 39.6 % Critically low 42.0-54.0 [facility] Comment on above: Performed By: #### C BC #### [facility] [address] [place] [address] Dr. Kirk García Hemoglobin (Bld) [Mass/Vol] 13.2 g/dL Critically low 14.0-18.0 [facility] Comment on above: Performed By: #### C BC #### [facility] [address] [place] [address] Dr. Kirk García IG # 0.02 10e3/ul Normal 0.00-0.03 [facility] Comment on above: Performed By: #### C BC #### [facility] [address] [place] [address] Dr. Kirk García IG % 0.3 % Normal 0.0-0.5 [facility] Comment on above: Performed By: #### C BC #### [facility] [address] [place] [address] Dr. Kirk García LYMPH # 1.7 103/ul Normal 1.2-3.8 [facility] Comment on above: Performed By: #### C BC #### [facility] [address] [place] [address] Dr. Kirk García Lymphocytes/100 WBC (Bld) 28.7 % Normal 20.5-60.0 [facility] Comment on above: Performed By: #### C BC #### [facility] [address] [place] [address] Dr. Kirk García MANUAL DIFF REQ NO Normal [place] Comment on above: Performed By: #### C BC #### [facility] [address] [place] [address] Dr. Kirk García MCH (RBC) [Entitic mass] 34.4 pg Critically high 25.9-34.0 [facility] Comment on above: Performed By: #### C BC #### [facility] [address] [address] [address] Kirk García MCHC (RBC) [Mass/Vol] 33.3 g/dL Normal 29.9-35.2 [facility] Comment on above: Performed By: #### C BC #### [facility] [address] [address] [address] Kirk García MCV (RBC) [Entitic vol] 103.1 fL Critically high 80.0-94.0 [facility] Comment on above: Performed By: #### C BC #### [facility] [address] [address] [address] Kirk García MONO # 0.9 103/ul Critically high 0.3-0.8 [place] Comment on above: Performed By: #### C BC #### [facility] [address] [address] [address] Kirk García Monocytes/100 WBC (Bld) 15.8 % Critically high 1.7-12.0 [facility] Comment on above: Performed By: #### C BC #### [facility] [address] [address] [address] Kirk García NEUT # 3.1 103/ul Normal 1.4-6.5 [facility] Comment on above: Performed By: #### C BC #### [facility] [address] [address] [address] Kirk García Neutrophils/100 WBC (Bld) 53.3 % Normal 43.0-75.0 [facility] Comment on above: Performed By: #### C BC #### [facility] [address] [address] [address] Kirk García Platelet mean volume (Bld) [Entitic vol] 10.6 fL Normal 9.5-13.5 [facility] Comment on above: Performed By: #### C BC #### [facility] [address] [address] [address] Kirk García PLT 147 103/ul Critically low 150-450 [facility] Comment on above: Performed By: #### C BC #### [facility] [address] [address] [address] Kirk García RBC 3.84 106/ul Critically low 4.70-6.10 [place] Comment on above: Performed By: #### C BC #### [facility] [address] [address] [address] Kirk García WBC 5.9 103/ul Normal 4.0-11.0 [facility] Comment on above: Performed By: #### C BC #### [facility] [address] [place] [address] Dr. Kirk García DIGOXINon 07-08-2022 DIG 1.1 ng/mL Normal 0.9-2.0 [facility] Comment on above: Performed By: #### U MICRO, ERUR #### [facility] [address] [place] [address] Dr. Kirk García PROF CHEM 8 (BAS METB)on Anion gap [Moles/Vol] 13.6 mmol/L Normal [facility] Comment on above: Performed By: #### U MICRO, ERUR #### [facility] [address] [place] [address] Dr. Kirk García Calcium [Mass/Vol] 9.5 mg/dL Normal 8.5-10.1 [facility] Comment on above: Performed By: #### U MICRO, ERUR #### [facility] [address] [place] [address] Dr. Kirk García Chloride [Moles/Vol] 97 mmol/L Critically low 98-107 [facility] Comment on above: Performed By: #### U MICRO, ERUR #### [facility] [address] [place] [address] Dr. Kirk García CO2 [Moles/Vol] 28.8 mmol/L Normal 21.0-32.0 [facility] Comment on above: Performed By: #### U MICRO, ERUR #### [facility] [address] [place] [address] Dr. Kirk García Creatinine [Mass/Vol] 1.43 mg/dL Critically high 0.70-1.30 [facility] Comment on above: Performed By: #### U MICRO, ERUR #### [facility] [address] [place] [address] Dr. Kirk García EGFR-AF COMORAN 57 mL/min/1.73m2 Critically low >=60 [facility] Comment on above: Performed By: #### U MICRO, ERUR #### [facility] [address] [address] [address] Kirk García EGFR-NON AF COMORAN 47 mL/min/1.73m2 Critically low >=60 [facility] Comment on above: Performed By: #### U MICRO, ERUR #### [facility] [address] [place] [address] Dr. Kirk García Glucose [Mass/Vol] 99 mg/dL Normal 74-106 [facility] Comment on above: Performed By: #### U MICRO, ERUR #### [facility] [address] [place] [address] Dr. Kirk García Potassium [Moles/Vol] 4.4 mmol/L Normal 3.5-5.1 [facility] Comment on above: Performed By: #### U MICRO, ERUR #### [facility] [address] [place] [address] Dr. Kirk García Sodium [Moles/Vol] 135 mmol/L Critically low 136-145 [facility] Comment on above: Performed By: #### U MICRO, ERUR #### [facility] [address] [place] [address] Dr. Kirk García Urea nitrogen [Mass/Vol] 29.0 mg/dL Critically high 7.0-18.0 [facility] Comment on above: Performed By: #### U MICRO, ERUR #### [facility] [address] [place] [address] Dr. Kirk García Urea nitrogen/Creatinine [Mass ratio] 20.3 mg/mg Normal [facility] Comment on above: Performed By: #### U MICRO, ERUR #### [facility] [address] [place] [address] Dr. Kirk García Patient Educationon 03-16-20 Patient [...] Are older than age 65. ? Are -Citizen Of [place]. ? Are obese. ? Have a family [...] Follow these instructions at home: ? Take omvu-kob-pmbyhoy and prescription medicines only as told by [...] cancer specialis (more content not included)... Normal [facility] Office/Clinic Noteon 03-16-2022 Urology [...] E&M of Est. Patient Moderate 30-39 Min 17848 Measure Post Void residual urine and/or bladder capacity by US- non-imaging 56198 Urnls Dip Stick Auto w/o Microscopy POC 19807 2. History of prostate cancer (Z85.46: Personal history of malignant neoplasm of prostate) s/p brachytherapy in 2004. PSA remained very low. pt decided to have PCP do annual monitoring when he saw PRW March 2021. Ordered: E&M of Est. Patient Moderate 30-39 Min 20416 Measure Post Void residual urine and/or bladder capacity by US- non-imaging 03263 Urnls Dip Stick Auto w/o Microscopy POC 77314 Orders: oxybutynin, 5 mg = 1 tab(s), Oral, Daily, # 90 tab(s), Refills(s) 3, Pharmacy: [facility], 183, cm, 03/16/22 9:10:00 EDT, Height/Length Dosing, 99.3, kg, 03/16/22 9:10:00 EDT, Weight Dosing Follow-up With When Contact Information KENNETH SHEPARD, MARYBETH Trivedi, URL Within 6 months [address] [place] [address] Business (1) Additional Instructions: Patient Education Prostate Cancer 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 Cholecystitis Gross hematuria History of prostate cancer Hyperlipidemia Hypertension residential current use of antithrombotics/anti platelets Post-void dribbling [...] in lifetime (more content not included)... Normal [facility] Comment on above: Result [...] Are older than age 65. ? Are -Citizen Of [place]. ? Are obese. ? Have a family [...] Follow these instructions at home: ? Take vapq-apw-wqfwwaa and prescription medicines only as told by [...] cancer specialis (more content not included)... Normal [facility] Office/Clinic Noteon 01-06-2022 Urology [...] worsen Ordered: Office Visit Level 4 Est 85210 2. History of prostate cancer (Z85.46: Personal history of malignant neoplasm of prostate) s/p brachytherapy in 2004. PSA remained very low. pt decided to have PCP do annual monitoring when he saw PRW at last visit March 2021. Ordered: Office Visit Level 4 Est 76153 Orders: Urnls Dip Stick Auto w/o Microscopy POC 28099 Total time spent reviewing previous notes/results/cigarette machine filler al documents, preparing the chart, conducting the encounter with the patient and family, ordering tests/medications, and documenting the encounter was 40 minutes. Follow-up With When Contact Information PRN Additional Instructions: Patient Education Prostate Cancer 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 Cholecystitis Gross hematuria History of prostate cancer Hyperlipidemia Hypertension residential current use of antithrombotics/anti platelets Post-void dribbling [...] Use:., 02 (more content not included)... Normal [facility] Comment on above: Result Comment: Elec tronically Signed By: MARYBETH STANLEY PA-C\.lisa\Date and Time Signed: 01/06/22 16:55 NYDIA Corey 07-29-2021 MANOJ Telephone ([employer]) WARRENSAMSON Del Cid ([id number]) 1935 M Date Time Provider Department 07/29/21 DALILA BALL During your visit today, we recorded the following information about you: Dalila Ball RN 07/29/2021 10:36 AM Signed Spoke with Samson, he is currently still at the hotel and is planning on going to the [facility]. We discussed pain control and did remind patient use of Aleve or Motrin in between narcotics as the narcotics can increase issues with constipation. We did discuss use of Miralax if no Bm by Monday and patients states [place] will help him with that. Encouraged to keep up with water intake especially since no appetite today. 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 [5291] Cmt: post-op Prescriptions as of 07/29/2021 - [...] Status:Closed by DALILA BALL on 07/29/21 Normal [facility] ANES POSTPROC EVALon 021 ANES POSTPROC EVAL HNO ID: [id number] Author: Ramiro Esquivel MD Service: Anesthesiology Author [...] July 28, 2021 TIME: 1:35 PM CSN: [id number] [facility] ANES PRE-OPon 07-28-2021 ANES PRE-OP HNO ID: [id number] Author: Ramiro Esquivel MD Service: Anesthesiology Author [...] (96.9 ?F) 07/28/21953 SpO2 95 % 07/28/21953 Facility-Administere d Medications as of 07/28/2021 Medication Dose Route Frequency - lidocaine 10 mg/mL (1 %) 1-2 mg injection (XYLOCAINE) 0.1-0.2 mL INTRADERMAL PRN - lactated ringers iv infusion 5-30 mL/hr INTRAVENOUS CONTINUOUS - [START ON 07/29/2021] ampicillin-sulbactam iv piggyback 3 g in NaCl 0.9% 100 mL Vial-Bag (UNASYN) 3 g INTRAVENOUS Space And Storage Clerk to OR - [COMPLETED] acetaminophen 1,000 mg [...] July 28, 2021 TIME: 10:17 AM CSN: [id number] [facility] HISTORY PHYSICALon HISTORY PHYSICAL HNO ID: [id number] Author: Jewel Cary III, MD Service: General [...] DATE: July 28, 2021 TIME: 10:16 AM [facility] OPERATIVE NOon 07-28-2021 OPERATIVE NO HNO ID: [id number] Author: Jewel Cary III, MD Service: General Surgery Author Type: Physician Type: Operative Report Filed: 07/28/2021 11:24 AM Note Text: OPERATIVE REPORT LOG ID: [id number] SURGERY/PROCEDURE DATE: 07/28/2021 INCISION/PROCEDURE START TIME: 10:47 AM INCISION CLOSE/PROCEDURE END TIME: 11:24 AM SURGEON: Jewel Cary III, MD ?? CYANIDE POT HARDENER: Monserrat Salazar PA-C? ? OPERATION: Laparoscopic cholecystectomy (55189). ? ANESTHESIA: GETA and 10 mL of [...] 2021 TIME: 11:22 AM Normal [facility] SURGICAL PATHOLOGYon 021 SURGICAL PATHOLOGY Specimen originated from [facility] Specimen #: [id number] Submitting Physician: JEWEL CARY MD FINAL DIAGNOSIS [...] The mucosa is walker-red, hyperemic, and granular. Gum Rolling Machine Tender sections are submitted as follows: A1 cystic duct margin and wall, A2 fundus. SLE/ch 07/28/2021 [facility] [place] [id number] Date of Report: 07/29/2021 Date of Procedure: 07/28/2021 Date of Receipt: 07/28/2021 Submitted by: JEWEL CARY MD Location: AV Diagnostic interpretation performed at [facility] [place] [address]. CLIA Number: [id number] Normal [facility] Reference Lab Comment on above: Performed By: #### S #### See report for performing lab information. HISTORY PHYSICALon HISTORY PHYSICAL HNO ID: [id number] Author: Denita Simmons PA-C Service: ? Author Type: Physician Slip Seat Coverer Type: HANDP Filed: 07/19/2021 4:18 PM Note [...] in November 2019. He was admitted to [facility] due to Yuni cystitis. Providers at [...] 20's - PACEMAKER 2006 - PACEMAKER 01/2021 [employer] placed - PAST SURGICAL HISTORY OF [...] fevers. Neuro: No history of TIA's, stroke, BEEF PUSHER tumor, impaired sensorium, hemiplegia, paraplegia or quadraplegia. No neurological symptoms or problems. Respiratory: Negative for Asthma, Dyspnea, Tobacco Use, URI < 2 weeks +PND - can rarely trigger cough, but stable, no acute symptoms Cardiovascular: +Pacemaker ([employer]) - A-fib hx, CHB no symptoms +Heart failure - on digoxin, Lasix. Chronic lower extremity edema. +Valve history - s/p Mitral and tricuspid repair 2017 - Dr. Ulysses Duran - Ra (more content not included)... [facility] CNCOon 07-13-2021 CNCO Letter Text Normal [facility] CNPNon 07-13-2021 CNPN Telephone (GENSAV) SAMSON KELLEY ([id number]) 1935 M Date Time Provider Department 07/13/21 [...] by routing message back to Angel [facility] [employer] DIRECT[employer], prior to notifying the patient. Marybeth Laureano 07/13/2021 1:53 PM Signed Pt seeing Cardi Dr Ulysses Duran @ [facility] 216 Will send clearance to this provider Cat Gibbs 07/15/2021 11:03 AM Signed Cari from Jacki Duran's office called and asked to have clearance letter fax to [phone]. Thank you. Marybeth Laureano 07/15/2021 11:21 AM [...] been off for [address] aCry says he needs to be cancelled. Dalila [...] Encounter Status:Closed by MARYBETH LAUREANO on 07/13/21 [facility] 07-12-2021 CNPN Telephone (GENSAV) WARRENSAMSON Del Cid ([id number]) 1935 M Date Time Provider Department 07/12/21 JEWEL CARY III During your visit today, we recorded the following information about you: Marybeth Georgi 07/13/2021 2:08 PM Addendum Cur received Pt needs cardiac clearance Dr Kody Lynn Tele enct sent Spoke w pt he now sees Dr Ulysses Duran at [facility]. Letter electronically sent. Marybeth Georgi 07/13/2021 3:25 PM Signed electronic faxed failed printed and sent to verified fax number of [phone]. Confirmed received. Marybeth Georgi 07/19/2021 3:02 PM [...] by GEORGIEMILMARYBETH on 07/19/[address] [facility] HISTORY PHYSICALon HISTORY PHYSICAL HNO ID: [id number] Author: Jewel Cary III, MD Service: ? [...] for internal providers or letter via the [employer] Postal Service for external providers. HISTORY: He [...] (more content not included)... Normal [facility] OPERATIVE REPORTon OPERATIVE REPORT NAME: SAMSON KELLEY MR#: [id number] SURGEON: Ulysses Duran MD DATE OF SURGERY: 02/01/2021 OPERATIVE REPORT PREOPERATIVE DIAGNOSIS: End of life pacemaker pulse generator. POSTOPERATIVE DIAGNOSIS: End of life pacemaker pulse generator. PROCEDURE: Change out of end of life pacemaker pulse generator. DESCRIPTION OF PROCEDURE: call center dispatcher to the OR, he received 1 g [...] inserted. The new pulse generator is a [employer] Accolade MRI safe pacemaker, model #L311 serial #[id number]. The pulse generator was attached to the [...] end of the day today. MD GLORIA KAHN/MODL/[id number] E/S: Ulysses Duran MD 02/08/21 0856 Electronically Signed [facility] PT NAME: SAMSON KELLEY MR#: [id number] [address] [place] [address] ACCT: [id number] : [birth year] OPERATIVE REPORT Normal [facility] SURGon 02-01-2021 SURG Normal [facility] Comment on above: Result Comment: RUN DATE: 02/02/21 [facility] LAB *LIVE* PAGE 1RUN TIME: 1351 Specimen InquiryRUN USER: [employer] Name: SAMSON KELLEY : [birth year] Sex:M Attend Dr: [facility]an [id number] Unit#: [id number] Status: [facility] Location[facility]17-01 Received: 02/01/21 Status: PRIYANKA Patterson#: [id number]#: [id number] Collected: 02/01/21-[address] [facility] [address]: Ulysses Duran MDTISSUES: A. EXPLANTED HARDWARE MICROSCOPIC EXAM: N/A DIAGNOSIS: EXPLANTED HARDWARE, REMOVAL: - PULSE GENERATOR (GROSS DIAGNOSIS ONLY) Signed Signature on File KT SCHAFER 02/02/21 1351 [facility] Name: SAMSON KELLEY [facility] Hosp Num: [id number] A Ministry of Age / Sex: 85/M [facility] Physician: Ulysses Duran MD [facility] [place] [address] Location: SAME DAY SURGERY END OF REPORT Performed By: #### P SURG ####Test performed at: [place] [address] Vital Signs Date Time Vital Sign Value Performing Clinician Facility 01-16-2024 11:34-0500 Body height 182.88 cm [facility] 01-16-2024 11:34-0500 Body mass index (BMI) [Ratio] 28.5 kg/m2 [facility] 01-16-2024 11:34-0500 Body weight 95.48 kg [facility] 01-16-2024 11:34-0500 Diastolic blood pressure 62 mm[Hg] [facility] 01-16-2024 11:34-0500 Heart rate 82 /min [facility] 01-16-2024 11:34-0500 Respiratory rate 20 /min [facility] 01-16-2024 11:34-0500 Systolic blood pressure 102 mm[Hg] [facility] 12-08-2023 11:30-0500 Body height 182.88 cm [facility] 12-08-2023 11:30-0500 Body weight 94.16 kg [facility] 12-08-2023 11:30-0500 Diastolic blood pressure 74 mm[Hg] [facility] 12-08-2023 11:30-0500 Systolic blood pressure 115 mm[Hg] [facility] 11-22-2023 10:00-0500 Body height 182.88 cm Timo Ball Other [facility] 11-22-2023 10:00-0500 Body mass index (BMI) [Ratio] 28.67 kg/m2 Timo Ball Other [facility] Other 11-22-2023 10:00-0500 Body weight 95.89 kg Timo Ball Other [facility] Other 11-22-2023 10:00-0500 Body weight 95.88 kg [facility] 11-22-2023 10:00-0500 Diastolic blood pressure 64 mm[Hg] Timo Ball Other [facility] 11-22-2023 10:00-0500 Respiratory rate 16 /min Timo Ball Other [facility] Other 11-22-2023 10:00-0500 SaO2% (BldA) [Mass fraction] 95 % Timo Ball Other [facility] Other 11-22-2023 10:00-0500 Systolic blood pressure 102 mm[Hg] Timo Ball Other [facility] 10-03-2023 13:45-0500 Body height 182.88 cm Timo Ball Other [facility] Other 10-03-2023 13:45-0500 Body mass index (BMI) [Ratio] 29.02 kg/m2 Timo Ball Other [facility] Other 10-03-2023 13:45-0500 Body weight 97.07 kg Timo Ball Other [facility] Other 10-03-2023 13:45-0500 Diastolic blood pressure 67 mm[Hg] Timo Ball Other [facility] Other 10-03-2023 13:45-0500 Respiratory rate 16 /min Timo Ball Other [facility] Other 10-03-2023 13:45-0500 Systolic blood pressure 106 mm[Hg] Timo Ball Other [facility] Other 09-29-2023 13:45-0400 Body height 182.88 cm Timo Ball Other [facility] Other 08-31-2023 11:00-0400 Body height 182.88 cm Timo Ball Other [facility] Other 08-31-2023 11:00-0400 Body mass index (BMI) [Ratio] 28.23 kg/m2 Timo Ball Other [facility] Other 08-31-2023 11:00-0400 Body weight 94.44 kg Timo Ball Other [facility] Other 08-31-2023 11:00-0400 Diastolic blood pressure 61 mm[Hg] Timo Ball Other [facility] Other 08-31-2023 11:00-0400 Respiratory rate 12 /min Timo Ball Other [facility] Other 08-31-2023 11:00-0400 Systolic blood pressure 105 mm[Hg] Timo Ball Other [facility] Other 05-26-2023 11:00-0400 Body height 182.88 cm Timo Ball Other [facility] Other 05-26-2023 11:00-0400 Body mass index (BMI) [Ratio] 28.69 kg/m2 Timo Ball Other [facility] Other 05-26-2023 11:00-0400 Body weight 95.98 kg Timo Ball Other [facility] Other 05-26-2023 11:00-0400 Diastolic blood pressure 66 mm[Hg] Timo Ball Other [facility] Other 05-26-2023 11:00-0400 Respiratory rate 16 /min Timo Ball Other [facility] Other 05-26-2023 11:00-0400 Systolic blood pressure 116 mm[Hg] Timo Ball Other [facility] Other 01-20-2023 11:00-0500 Body height 182.88 cm Timo Ball Other [facility] Other 01-20-2023 11:00-0500 Body mass index (BMI) [Ratio] 28.53 kg/m2 Timo Ball Other [facility] Other 01-20-2023 11:00-0500 Body weight 95.44 kg Timo Ball Other [facility] Other 01-20-2023 11:00-0500 Diastolic blood pressure 64 mm[Hg] Timo Ball Other [facility] Other 02-24-2023 11:00-0500 Respiratory rate 16 /min Timo Ball Other [facility] Other 01-20-2023 11:00-0500 Systolic blood pressure 102 mm[Hg] Timo Ball Other [facility] Other 09-21-2022 12:18-0400 Blood Pressure Location MARYBETH KENNETH [facility] 09-21-2022 12:18-0400 Diastolic blood pressure 58 mm[Hg] MARYBETH KENNETH [facility] 09-21-2022 12:18-0400 Heart rate 80 /min MARYBETH KENNETH [facility] 09-21-2022 12:18-0400 Respiratory rate 16 /min MARYBETH KENNETH [facility] 09-21-2022 12:18-0400 Systolic blood pressure 111 mm[Hg] MARYBETH KENNETH [facility] 03-16-2022 08:49-0400 Blood Pressure Location MARYBETH KENNETH [facility] 03-16-2022 08:49-0400 Diastolic blood pressure 65 mm[Hg] MARYBETH KENNETH [facility] 03-16-2022 08:49-0400 Heart rate 75 /min MARYBETH KENNETH [facility] 03-16-2022 08:49-0400 Systolic blood pressure 93 mm[Hg] MARYBETH KENNETH [facility] Jacki Encounters Encounter Date Encounter Type Care Provider Facility Start: 08-06-2024 End: 08-06-2024 ambulatory SAMSON SHAMEKA [facility] Start: 06-26-2024 End: 06-26-2024 ambulatory [facility] Start: 03-22-2024 End: 03-22-2024 ambulatory [facility] Start: 02-22-2024 End: 02-22-2024 ambulatory JUAN LUIS CALVIN [facility] Start: 02-07-2024 End: 02-07-2024 ambulatory Martha Meier Facility:[facility] Start: 01-26-2024 End: 01-26-2024 ambulatory VENECIA FLOWERS [facility] Start: 01-16-2024 End: 01-16-2024 ambulatory [facility] Work Phone: Start: 01-16-2024 End: 01-16-2024 Patient encounter procedure [facility] Work Phone: Start: 01-12-2024 Non-patient / Non-visit [facility] Work Phone: Start: 01-11-2024 Non-patient / Non-visit [facility] Work Phone: Start: 01-10-2024 Non-patient / Non-visit [facility] Physician [facility] Work Phone: Start: 01-09-2024 Non-patient / Non-visit [facility] Physician [facility] Work Phone: Start: 01-08-2024 Non-patient / Non-visit [facility] Physician [facility] Work Phone: Start: 01-01-2024 End: 01-01-2024 ambulatory MARGARITA [facility] Start: 12-29-2023 End: 12-29-2023 ambulatory Timo Francis Other [facility] Other Start: 12-29-2023 Telephone encounter Timo Francis [facility] Start: 12-26-2023 End: 12-26-2023 ambulatory EDDIE WEISS Not Available Start: 12-20-2023 End: 12-20-2023 ambulatory Timo Francis Other [facility] Other Start: 12-20-2023 Telephone encounter Timo Francis [facility] Start: 12-15-2023 End: 12-15-2023 ambulatory Timo Francis Other [facility] Other Start: 12-15-2023 Telephone encounter Timo Francis [facility] Start: 12-11-2023 End: 12-11-2023 ambulatory Timo Francis Other [facility] Other Start: 12-11-2023 Telephone encounter Timo Francis [facility] Start: 12-08-2023 End: 12-08-2023 Patient encounter procedure [facility] Physician [facility] Work Phone: Start: 12-05-2023 End: 12-05-2023 ambulatory Timo Francis Other [facility] Other Start: 12-05-2023 Telephone encounter Timo Francis [facility] Start: 11-22-2023 End: 11-22-2023 ambulatory Timo Francis Other [facility] Other Start: 11-22-2023 Telephone encounter Timo Francis [facility] Start: 11-22-2023 Transitional care carlie villasenor sr 14 day discharge Timo Ball [facility] Start: 11-22-2023 End: 11-22-2023 Patient encounter procedure [facility] Work Phone: Start: 11-17-2023 End: 11-17-2023 ambulatory Timo Francis Other [facility] Other Start: 11-17-2023 Telephone encounter Timo DIEGO [facility] Start: 10-04-2023 End: 10-04-2023 ambulatory Timo Francis Other [facility] Other Start: 10-04-2023 Telephone encounter Timo DIEGO [facility] Start: 10-03-2023 End: 10-03-2023 ambulatory Timo Francis Other [facility] Other Start: 10-03-2023 Office outpatient vi sit 15 minutes Timo Francis [facility] Start: 09-29-2023 End: 09-29-2023 ambulatory Timo Francis Other [facility] Other Start: 09-29-2023 Nursing evaluation o f patient and report Timo Francis [facility] Start: 09-06-2023 End: 09-06-2023 ambulatory Timo Francis Other [facility] Other Start: 09-06-2023 Telephone encounter Timo DIEGO [facility] Start: 08-31-2023 End: 08-31-2023 ambulatory Timo Francis Other [facility] Other Start: 08-31-2023 Patient encounter procedure Timo Francis [facility] Start: 05-26-2023 End: 05-26-2023 ambulatory Timo Francis Other [facility] Other Start: 05-26-2023 Office outpatient vi sit 25 minutes Timo Ball [facility] Start: 01-20-2023 End: 01-20-2023 ambulatory Timo Francis Other [facility] Other Start: 01-20-2023 Office outpatient vi sit 25 minutes Timo Ball [facility] Start: 09-21-2022 End: 09-22-2022 ambulatory MARYBETH STANLEY Facility: [facility] Start: 09-21-2022 End: 09-21-2022 Patient encounter procedure MARYBETH Farooq STANLEY [facility] Start: 09-06-2022 End: 09-07-[address] TIMO FRANCIS Facility:[facility] Start: 08-14-2022 End: 08-15-[address] TIMO FRANCIS Facility:[facility] Start: 08-03-2022 End: 08-04-[address] TIMO FRANCIS Facility:[facility] Start: 07-08-2022 End: 07-09-[address] TIMO FRANCIS Facility:[facility] Start: 03-16-2022 End: 03-17-2022 ambulatory MARYBETH STANLEY Facility:[facility] Start: 03-16-2022 End: 03-16-2022 Patient encounter procedure MARYBETH STANLEY [facility] Start: 01-06-2022 End: 01-07-2022 ambulatory MARYBETH E KENNETH Facility:[facility] Start: 01-05-2022 ambulatory MARYBETH STANLEY Facility :[facility] Start: 12-07-2018 Patient encounter procedure Facility:[id number] Start: 12-06-2018 Patient encounter procedure Facility:[id number] Procedures Date Procedure Procedure Detail Performing Clinician Start: 01-08-2024 Blood Culture 1 Start: 01-08-2024 Blood Culture 2 Start: 07-08-[address] KUSH FRANCIS Comment on above: Performed By: #### U MICRO, ERUR #### [facility] [address] [place] [address] Dr. Kirk García Start: 07-28-2021 Cholecystectomy SHADIA STANLEY Start: 11-27-2006 Colonoscopy MARYBETH GRAVES Start: 11-27-2004 Implantation of radi oactive seed into prostate MARYBETH STANLEY Repair of right ingu inal hernia MARYBETH STANLEY Transrectal biopsy o f prostate using ultrasound guidance MARYBETH STANLEY Immunizations Immunization Date Immunization Notes Care Provider Dari pérez 09-29-2023 influenza, high dose seasonal, preservative-free Timo Francis Other [facility] Other 09-29-2023 influenza virus vaccine, unspecified formulation [facility] 09-07-2022 influenza virus vaccine, split virus (incl. purified surface antigen) Timo Francis Other [facility] Other 09-07-2022 influenza virus vaccine, unspecified formulation [facility] 04-26-2022 SARS-CoV-2 mRNA (mjphufddzcv-kgei-yhqbl se) vaccine MARYBETH STANLEY [facility] 09-02-2021 SARS-CoV-2 (COVID-19 ) mRNA BNT-162b2 vax MARYBETH STANLEY [facility] 08-18-2021 influenza virus vaccine, unspecified formulation MARYBETH STANLEY [facility] 08-13-2021 influenza virus vaccine, split virus (incl. purified surface antigen) Timo Francis Other [facility] Other 08-13-2021 influenza virus vaccine, unspecified formulation [facility] 02-23-2021 SARS-CoV-2 (COVID-19 ) mRNA BNT-162b2 vax MARYBETH STANLEY [facility] 02-03-2021 SARS-CoV-2 (COVID-19 ) mRNA BNT-162b2 vax MARYBETH STANLEY [facility] Comment on above: Result Comment: 2021: [id number] 01-25-2021 SARS-CoV-2 (COVID-19 ) mRNA BNT-162b2 vax MARYBETH STANLEY [facility] 08-31-2020 influenza virus vaccine, split virus (incl. purified surface antigen) Timo Francis Other [facility] Other 08-31-2020 influenza virus vaccine, unspecified formulation [facility] 08-30-2019 influenza virus vaccine, split virus (incl. purified surface antigen) Timo Francis Other [facility] Other 08-30-2019 influenza virus vaccine, unspecified formulation MARYBETH STANLEY [facility] 08-29-2018 influenza virus vaccine, split virus (incl. purified surface antigen) Timo Francis Other [facility] Other 08-29-2018 influenza virus vaccine, unspecified formulation MARYBETH STANLEY [facility] 08-03-2017 influenza virus vaccine, split virus (incl. purified surface antigen) Timo Francis Other [facility] Other 08-03-2017 influenza virus vaccine, unspecified formulation MARYBETH KENNETH [facility] 09-05-2016 influenza virus vaccine, split virus (incl. purified surface antigen) Timo Francis Other [facility] Other 09-05-2016 influenza virus vaccine, unspecified formulation MARYBETH KENNETH [facility] 10-16-2015 pneumococcal conjuga te vaccine, 13 valent Timo Francis Other [facility] 09-01-2015 influenza virus vaccine, split virus (incl. purified surface antigen) Timo Francis Other [facility] Other 09-01-2015 influenza virus vaccine, unspecified formulation [facility] 09-15-2014 tetanus and diphther ia toxoids, adsorbed, preservative free, for adult use (5 Lf of tetanus toxoid and 2 Lf of diphtheria toxoid) Timo Francis Other [facility] 08-27-2013 tetanus and diphther ia toxoids, adsorbed, preservative free, for adult use (5 Lf of tetanus toxoid and 2 Lf of diphtheria toxoid) Timo Francis Other [facility] 01-10-2007 pneumococcal polysaccharide vaccine, 23 valent Timo Francis Other [facility] 1999 pneumococcal polysaccharide vaccine, 23 valent MARYBETH STANLEY [facility] Payers Date Payer Category Payer Self-pay 2024 Unknown [id number] 2.16.8 [id number] 2023 Unknown [id number] 1960 Medicare [id number] 1960 Unknown [id number] 1935 Unknown [id number] 2.16. [id number] 1935 Unknown [id number] 2.16. [id number] 1935 Unknown [id number] 2.16.8 [id number] 1934 Unknown [id number] 2.16.8 40.1.691581.3.579.2.727 1934 Unknown [id number] 2.16.8 40.1.149172.3.579.2.727 1934 Unknown [id number] 2.16.8 40.1.721885.3.579.2.727 1934 Unknown [id number] 2.16.8 40.1.294959.3.579.2.727 1934 Unknown [id number] 2.16.84 0.1.613156.3.579.2.593 1934 Unknown [id number] 2.16.84 0.1.318099.3.579.2.593 1934 Unknown [id number] 2.16.84 0.1.571954.3.579.2.593 1934 Unknown [id number] 2.16.84 0.1.638678.3.579.2.593 1934 Unknown [id number] 2.16.84 [id number] Medicare [id number] Unknown [facility] Health Claims [id number] Unknown Other1 (STD) [id number] Unknown [id number] 2.16.8 [id number] Social History Date Type Detail Facility Start: 03-16-2022 End: 01-16-2024 Tobacco smoking status Never smoked tobacco (finding) [facility] Tobacco smoking status Never [facility] Sex Assigned At Male [facility] Start: 1935 Sex Assigned At Male F [facility] Functional Status Date Assessment Result Facility 09-21-2022 Functional Status N/A [facility] Clinical Notes 07-28-2021 to 06-26-2024 Note Date & Type Note Facility 06-26-2024 Note [place] Cardiology - [facility] Subjective Samson Kelley is a 88 y.o. year old male patient being seen for 3 mo follow up chronic systolic heart failure, PAF, and s/p valve repair. Had labs last month, and another BMP this morning. He received a call this morning to schedule with nephrology and wants to know if this is necessary. He was referred to nephrology by Carla Flowers in January 2024. He denies chest pain, lightheadedness/syncope, and palpitations. Patient Active Problem List Diagnosis Acute nontraumatic [...] dribbling Cholecystitis Gram-negative bacteremia Gross hematuria Hyperlipidemia residential current use of antithrombotics/antiplatelets Other specified postprocedural states Personal history of surgery to heart and great vessels, presenting hazards to health Post-void dribbling Psoriasis vulgaris Testicular mass Urinary frequency Urinary tract infection Urinary urgency Weak urinary stream Acute combined systolic and diastolic heart failure (CMS/HCC) No family history on file. Social History Tobacco Use Smoking status: Never Smokeless tobacco: Never DAVE Samson is seen in follow-up. He is a [...] the surgery. Surgery was done at the [facility]. He is on chronic oxygen therapy. He was admitted to [facility] in January 2024 for decompensated heart failure. Lasix was switched to Bumex and Aldactone was added. Lisinopril was held due to TAMMI. Then due to worsening renal function he was instructed to reduce Bumex to 1 mg daily then due to shortness of breath Bumex was increased to 2 mg daily for 3 days and then he was changed to an alternating every other day 1 mg and 2 mg of Bumex. at visit with me on 03/22/2024 I reduced his midodrine dosage. Today he reports that he seems to be doing much better on the current regimen of Bumex and the spironolactone. He feels that the shortness of breath is no longer an issue, he is in NYHA class II symptoms. His leg swelling has improved significantly. He does not have chest pain. No palpitations. No dizziness or lightheadedness. Review of Systems Cardiovascular: Positive for leg swelling. All other systems reviewed and are negative. Objective Visit Vitals BP 106/58 (BP Location: Right arm, Patient Position: Sitting) Pulse 75 Ht 1.854 m (6' 1 ) Wt 90.3 kg (199 lb) SpO2 93% BMI 26.25 kg/m??? Smoking Status Never BSA 2.16 m??? [...] wheezing or rales. 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 Abdominal: General: Bowel sounds are normal. There is no distension. Palpations: Abdomen is soft. Tenderness: There is no abdominal tenderness. Musculoskeletal: General: No swelling. Cervical back: Neck supple. Right lower le+ Pitting Edema present. Left lower le+ Pitting Edema present. Skin: General: Skin is warm and dry. Neurological: General: No focal deficit present. Mental Stat (more content not included)... 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 Social History Tobacco Use Smoking status: Never Smokeless tobacco: Never DAVE Samson is seen in follow-up. He is a 88-year-old man who previously was seen in our office initially in March 2023 to establish care. He used to follow with another cardiology group. He has prior medical history of sick sinus syndrome status post pacemaker placement, chronic systolic heart failure, atrial fibrillation status post Maze procedure in 2016, chronic kidney disease, hypertension, history of mitral valve and tricuspid valve repair in 2017 and left atrial appendage clip at the time of the surgery. Surgery was done at the [facility]. Most recently he was admitted to [facility] in January 2024 for decompensated heart [...] wheezing or rales. 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 Abdominal: General: Bowel sounds are normal. There is no distension. Palpations: Abdomen is soft. Tenderness: There is no abdominal tenderness. Musculoskeletal: General: No swelling. Cervical back: Neck supple. Right lower le+ Pitting Edema present. Left lower le+ Pitting Edema present. Skin: General: Skin is warm and dry. Neurological: General: No focal deficit present. Menta (more content not included)... [facility] 02-22-[address] [facility] SUBJECTIVE Chief Complaint Patient presents with Hospital Follow-up Congestive Heart Failure HPI Samson Kelley is a 88 y.o. male here for follow-up. His neighbor Peggy accompanied him who helps with his transportation and medications. PMHx: SSS s/p PPM, systolic heart failure, a.fib s/p MAZE procedure 2016, CKD, HTN, history of mitral valve repair and tricuspid valve repair 2016, CAMERON clip 2016 He was admitted [facility] 02/11/2024 for fluid overload. His lasix [...] dribbling Cholecystitis Gram-negative bacteremia Gross hematuria Hyperlipidemia residential current use of antithrombotics/antiplatelets Other specified postprocedural [...] and dry. Neurological (more content not included)... [facility] 02-22-2024 Note Patient here for [facility]. He was switched from Lasix to Bumex, [...] All other systems reviewed and are negative. [facility] 01-26-2024 Note CAMERON clip 2017 No anticoagulation with CAMERON clip Continue toprol and digoxin- rate is controlled in office [facility] 01-26-2024 Note Will monitor with ro utine echocardiograms. [facility] 01-26-2024 Note Continue diuresis wi th lasix bid for next 2-3 days and then resume daily dose. [facility] 01-26-2024 Note Hypertension is stab le Well controlled 100/60 Continue all meds [facility] 01-26-2024 Note [facility] Continue GDMT- ASA, digoxin, lisinopril, toprol with midodrine. Diuretic therapy- lasix 40 mg daily with bid as needed for fluid overload. Asked pt to continue lasix bid for next 2-3 days Sent pt to lab for BMP Monitor daily weights, I&O, fluid restriction 1.5-2L/day, renal function and electrolytes- please maintain K+>4 and Mg > 2 [facility] 01-26-2024 Note [facility] CARDIOLOGY PROGR ESS NOTE [facility] HPI: Samson Kelley is a 88 y.o. male here for hospital F/U at [facility] HPI 88 y.o. year old with past medical history of SSS s/p PPM, systolic heart failure, a.fib s/p MAZE procedure 2017, CKD, HTN, history of mitral valve repair and tricuspid valve repair 2016, CAMERON clip 2017 Patient here for follow up [facility]. He was started on midodrine and [...] VALVE: Normal trile (more content not included)... [facility] 01-26-2024 Note Patient here for [facility]. He was started on midodrine and thyroid medication. .Review of Systems Eyes: Positive for vision loss in left eye and vision loss in right eye. Cardiovascular: Positive for dyspnea on exertion and leg swelling. Respiratory: Positive for shortness of breath. Hematologic/Lymphatic: Bruises/bleeds easily. All other systems reviewed and are negative. [facility] 01-01-2024 Note Patient here for 6 m o follow up and device check. He was admitted to [facility] in Oct 2023 and was seen by Cnosuelo Calvin CNP as inpatient consult for CHF. [...] All other systems reviewed and are negative. [facility] 01-01-2024 Note [facility] [...] noted some increase in SOB/POWELL 04/17/23 jonah MARINE PROPULSION TECHNICIAN HPI Samson Kelley is a 87 y.o. [...] on file Intimate Partner Violence: Unknown (01/01/2024) [place] Safety & Environment Fear of Current or [...] rhonchi Cardiovascular Ra (more content not included)... [facility] 12-29-2023 Evaluation note Encounter Date Diagnosis Assessment Notes Dec, Anemia (ICD-10 - D64.9) Reviews42 Other 01-03-2024 NoteThis report has been cancelled. [facility]01-03-2024 NoteThis report has been cancelled.[facility]2024 NoteThis report has been cancelled.[facility]-2024 NoteThis report has been cancelled.[facility]-03-2024 NoteThis report has been cancelled.[facility]01-03-2024 NoteThis report has been cancelled.[facility]01-03-2024 NoteThis report has been cancelled.[facility]12-27-2023 Evaluation note* Encounter Date [...] are maintaining regular scheduled appts with their manager transport. s/p LAAO procedure, off anticoagulation Oct, Pulmonary [...] I44.1) PM inserted PM checkups every 6months. Reviews42 Other 11-07-2023 Evaluation note* Encounter Date Diagnosis [...] continue exercise to achieve/maintain a normal BMI. Reviews42 Other 10-05-2023 Evaluation note* Encounter Date Diagnosis [...] are maintaining regular scheduled appts with their manager transport. No bleeding complications Aug, Chronic venous insufficiency [...] (ICD-10 - Z79.899) Check labs: CBC, Dig Reviews42 Other 06-30-2023 Evaluation note* Encounter Date Diagnosis [...] are maintaining regular scheduled appts with their manager transport. No bleeding complications Apr, Chronic venous insufficiency (ICD-10 - I87.2) Avoid salt and elevate lower extremities, support stockings, inspect legs and feet daily for blisters and ulcerations. Apr, Second degree heart block (ICD-10 - I44.1) PM inserted, routine PM checks w/ [facility] Apr, History of prostate cancer (ICD-10 - Z85.46) No s/s recurrence. No active treatment at this time. Reviews42 Other 02-24-2023 Evaluation note* Encounter Date Diagnosis Assessment [...] are maintaining regular scheduled appts with their manager transport. 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 Needs new Weight Shifter, suggest [facility] here in [place] Dec, History of prostate cancer (ICD-10 - Z85.46) No s/s recurrence Reviews42 Other 10-26-2022 Hospital Discharge instructions Patient Education [...] who: Are older than age 65. Are -Citizen Of [place]. Are obese. Have a family history of [...] cells. Follow these instructions at home: Take itea-uwp-viqbzpz and prescription medicines only as told by [...] 11/13/2006 Document Revised: 10/26/2018 Document Reviewed: 07/24/2017 [employer] Patient Education 2020 [employer]. Follow Up Care 03/16/2022 09:37:24 With:MARYBETH STANLEY PA-C, URL Address: [address] [place] [address] [phone] When: only if needed [facility] 04-20-2022 Hospital Discharge instructions [...] who: Are older than age 65. Are -Citizen Of [place]. Are obese. Have a family history of [...] cells. Follow these instructions at home: Take pdmh-gso-iicpifl and prescription medicines only as told by [...] 11/13/2006 Document Revised: 10/26/2018 Document Reviewed: 07/24/2017 [employer] Patient Education 2020 [employer]. Follow Up Care 01/28/2022 16:02:47 With:MARYBETH STANLEY PA-C, URL Address: [address] [place] [address] Business (1) When:6 months [facility] 09-21-2021 NoteHNO ID: [id number] Author: Jewel Cary III, MD Service: ? Author Type: Physician Type: Progress Notes Filed: 08/17/2021 9:33 AM Note Text: This patient is post op from laparoscopic cholecystectomy. He has had no symptoms. P.E. The wounds are healing well without evidence of infection. I reviewed the pathology report with Samson. Assessment Satisfactory course Plan: Return to office PRN. Jewel Cary III, [facility]09-01-2021 NoteHNO ID: [id number] Author: Jaspal Phipps APRN.FLUID POWER MECHANIC Service: Anesthesiology Author Type: Nurse Bulldozer Engineer Type: Anesthesia Procedure Notes Filed: 07/28/2021 10:50 AM Note Text: ANESTHESIOLOGY PROCEDURE NOTE Airway General Information Procedure Start Time/Medication Administration: 07/28/2021 10:40 AM Patient location during procedure: OR Patient identity confirmed: arm band and patient Staffing Anesthesiologist: Ramiro Esquivel MD FLUID POWER MECHANIC: Jaspal Phipps APRN.FLUID POWER MECHANIC Performed by: FLUID POWER MECHANIC Indications and Patient Condition Preoxygenated: yes Patient [...] to 7.0 ETT-no difficulty. SIGNATURE: Jaspal Phipps APRN.FLUID POWER MECHANIC PATIENT NAME: Samson Kelley DATE: July 28, 2021 TIME: 10:48 AM CSN: [id number] note Future Appointments Appointment Date:09/21/2022 10:00:00 AM Scheduled Provider:MARYBETH STANLEY PA-C Location:[facility] Appointment Type:URO Office Visit [facility] evaluation noteNo [place] Other Evaluation note* Diagnosis Onset Date Resolution Status Chronic venous insufficiency of lower extremity acute CKD (chronic kidney disease) stage 3, GFR 30-59 ml/min acute HFrEF (heart failure with reduced ejection fraction) acute Hypoxia acute Mobitz (type) II atrioventricular block acute Pancytopenia acute Subclinical hypothyroidism a [facility] Work Phone: History general Narrative - Reported* Type Description [...] GALLBLADDER 11/2029 Hospitalization History see surgical history Reviews42 Other History general Narrative - Reported* Type [...] 20 16 Hospitalization History see surgical history Reviews42 Other Hospital course Narrative No data available for this section [facility] progress note No data available for this section [facility] Summary Purpose Family History No Family History Records Found Relationship Condition Age at Onset Recorded Date/T jabier father Unknown Not Specified Unknown Advance Directives No Advanced Directives Records Found Advance Directive Response Recorded Date/ Time Advance Directives No January 04, 2024 12:18pm Chief Complaint and Reason for Visit Chief Complaint [facility] d/c 01/12 Reason for Visit Chronic [...] and content) DATE CREATED AUTHOR 12/17/2018 [facility] DATE CREATED AUTHOR AUTHOR'S ORGANIZ ATION 07/31/2021 [facility] DATE CREATED AUTHOR AUTHOR'S ORGANIZ ATION 07/31/2021 [facility] DATE CREATED AUTHOR AUTHOR'S ORGANIZ ATION 12/24/2021 [facility] DATE CREATED AUTHOR AUTHOR'S ORGANIZ ATION 12/26/2021 [facility] DATE CREATED AUTHOR AUTHOR'S ORGANIZ ATION 09/22/2022 [facility] DATE CREATED AUTHOR AUTHOR'S ORGANIZ ATION 10/05/2022 [facility] DATE CREATED AUTHOR AUTHOR'S ORGANIZ ATION 12/27/2023 [facility] EPIC DATE CREATED AUTHOR AUTHOR'S ORGANIZ ATION 08/02/2024 [facility] DATE CREATED AUTHOR AUTHOR'S ORGANIZ ATION 08/21/2024 [facility] Patient Care team informatio n (unrecognized section and content) Team Status: Active Member Role Status Dates Timo Francis DO Primary Care Provider Active Team Status: Inactive Member Role Status Dates Timo Francis , Attending Provider Active Sta rt: November 22, [...] UP4 MONTH FOL LOW UPWellnessLab resultsflu shotankle/foot swellingRefillBEVERLY HOSPITAL HHTBHMedication PriceTCMBlood PressuresBP readingsweight concernRepeat Labs [...] BE BASED ON THE PRIMARY CLINICAL RECORDS. [employer]. provides no warranty or guarantee of the accuracy or completeness of information in this document.
[2024-09-19 17:27] LABS: Albumin Level 3.5 g/dL (3.4-5.0); Anion Gap 16.5; BUN Creatinine Ratio 29.3; Calcium 9.6 mg/dL (8.5-10.1); Carbon Dioxide 28.3 mmol/L (21.0-32.0); Chloride 101 mmol/L (98-107); Estimated GFR (African America 42 (>=60 mL/min/1.73m^2); Estimated GFR (Non-African Ame 35 (>=60 mL/min/1.73m^2); Glucose 113 mg/dL (74-106); Phosphorus 4.3 mg/dL (2.6-4.7); Potassium 4.8 mmol/L (3.5-5.1); Sodium 141 mmol/L (136-145)
== END 2024-09-19 16:08 | disposition home or self-care (01) ==
PROVIDERS: PCP Internal Medicine; Visit Provider Internal Medicine
DX: N18.32 Chronic kidney disease, stage 3b (principal)
CPT/HCPCS: 36415; 80069

== ENCOUNTER 2024-09-25 09:38 | Outpatient (OUT) | payer MEDICARE, OTHER, SELFPAY ==
--- NOTE | 2024-09-25 09:41 | US_ITS ---
The [address] [address] Patient Name: REINA JOE MRN: [id number] date: 1935 Sex: M Assigned Patient Location: US Current Patient Location: Accession/Order Number: [id number] Exam Date: 09/25/2024 09:45 Report Date: 09/27/2024 07:53 At the request of: CONCEPCION JOE Procedure: US renal BI EXAMINATION: US renal BI HISTORY: Stage 3b Chronic Kidney Disease, Pulmonary Hypertension COMPARISON: No relevant comparison available. TECHNIQUE: Ultrasound examination was performed of the bladder. FINDINGS: Right Kidney: Normal in size and contour. Diffuse increase in cortical echotexture. The cortex is thinned measuring 0.6 cm. 0.9 cm area of anechoic echogenicity, cortical cyst. No solid cortical mass, hydronephrosis or obstructing nephrolithiasis. Height: 5.37 cm Length: 9.60 cm Width: 5.52 cm Left Kidney: Normal in size and contour. Diffuse increase in cortical echotexture. The cortex is thinned measuring 0.7 cm. 4 mm echogenic focus, nonobstructing nephrolith. No solid cortical mass, or hydronephrosis. Height: 4.40 cm Length: 11.36 cm Width: 4.00 cm The urinary bladder is normal in appearance with a volume of 99 mL. Suspected bladder diverticulum on the right US/US renal BI IMPRESSION: Renal cortical atrophy with increased echotexture consistent with medical renal disease Electronically authenticated by: MARS MATA Date: 09/27/2024 07:53
--- OUTSIDE RECORDS SUMMARY | 2024-09-25 09:59 | XMS_ITS | CCD ---
Author Organization [facility] Care Team Providers Care Sterile Processing Technologist Name Role Phone TIMO FRANCIS Primary Care [...] Care Unavailable BALL, DR MARRUFO Consulting Unavailable PENYN, DR MARRUFO Admitting Unavailable PENNY, DR MARRUFO [...] Drug Class(es) Dates Sig (Normalized) Sig (Original) amoxicillin 500 mg oral capsule (1 source) Penicillin-class Antibacterial Start: 09-19-2024 take 2000 mg by mouth every hour Amoxicillin Active 2000 MG PO .COMPLEX September 19, 2024 12:00am 2,000 mg orally one hour prior to dental appt; Ascorbic Acid (2 sources) Vitamin C Start: 02-14-2020 Vitamin C Daily, Refills(s) 0 Start Date: 02/14/20 Status: Ordered Ocuvite (2 sources) Vitamin C Start: 02-14-2020 Ocuvite Oral, Daily, Refill(s) 0 Start Date: 02/14/20 Status: Ordered aspirin 81 mg delayed release oral tablet (4 sources) Platelet Aggregation Inhibitor, Nonsteroidal Anti-inflammatory Drug Start: 01-16-2024 Aspirin (Adult Low Dose Aspirin) 81 mg tablet,delayed release (DR/EC) Active 81 MG PO Daily January 16, 2024 1:00am Start: 12-25-2019 aspirin 81 mg, Refills(s) 0 Start Date: 12/25/19 Status: Ordered bumetanide 2 mg oral tablet (2 sources) Loop Diuretic Start: 02-20-2024 End: 03-26-2024 take 1 mg by mouth once daily, then take 2 mg by mouth every other day Bumetanide Active 2 MG PO Daily March 26, 2024 1:08pm Alternating 1mg with 2mg every other day calcium citrate 950 mg oral tablet (2 [...] Oct, Active digoxin 0.125 mg oral tablet (20 sources) Cardiac Glycoside Start: 01-16-2024 take 0.125 mg by mouth once daily Digoxin Active 0.125 MG PO Daily January 16, 2024 1:00am Start: 01-01-2020 take 1 tablet by jon th once daily digoxin 125 mcg (0.125 mg) Tab 125 microgram = 1 tab(s), Oral, Daily Start Date: 01/01/20 Status: Ordered take 1 tablet by jon th once daily Digoxin 125 mcg TAKE 1 TABLET BY MOUTH DAILY Active DuoDERM CGF Extra Thin - (16 sources) DuoDERM CGF Extr a Thin - as directed Externally Active levothyroxine sodium 0.1 mg oral tablet (6 sources) l-Thyroxine Start: 09-19-2024 Levothyroxine Active 100 MCG PO 6 times per day September 19, 2024 2:57pm Start: 07-19-2024 End: 09-19-2024 take 1 tablet by mouth once daily Levothyroxine Discontinued 0 .ROUTE .COMPLEX 90 July 19, 2024 10:20am September 19, 2024 3:01pm TAKE 1 TABLET BY MOUTH ONCE DAILY Start: 01-16-2024 End: 07-19-2024 take 100 ug by mouth once daily Levothyroxine Discontinued 100 MCG PO Daily 90 90 February 15, 2024 12:34pm July 19, 2024 10:20am Low-Dose Aspirin (16 sources) Low-Dose Aspirin Active melatonin 5 mg oral capsule (17 sources) Start: 02-20-2024 take 1 mg by mouth once daily at bedtime Melatonin Active MG PO Daily at bedtime February 20, 2024 12:00am take 1 tablet by jon th every twenty-four hours Melatonin 5 MG 1 tablet in the evening Orally Once a day Active 24 hr metoprolol succinate 50 mg extended release oral tablet (20 sources) beta-Adrenergic Tang Start: 09-19-2024 take 50 mg by mouth once daily Metoprolol Succinate Active 50 MG PO Daily September 19, 2024 12:00am Start: 01-16-2024 End: 09-19-2024 take 50 mg by mouth once daily Metoprolol Succinate Di scontinued 50 MG PO Daily January 16, 2024 1:00am September 19, 2024 2:58pm Start: 01-16-2024 take 25 mg by mouth once daily Metoprolol Succinate Active 25 MG PO Daily January 16, 2024 12:00am Start: 11-22-2023 take 1 capsule by mo [facility] once daily Metoprolol Succinate 50 MG [...] THE EVENING for 90 Active midodrine hydrochloride 5 mg oral tablet (4 sources) alpha-Adrenergic Agonist Start: 09-19-2024 take 5 mg by mouth twice daily Midodrine Active 5 MG PO Twice daily September 19, 2024 12:00am Start: 03-26-2024 End: 09-19-2024 take 1 dose by mouth once daily at bedtime Midodrine Discontinued 5 MG PO Twice daily March 26, 2024 1:08pm September 19, 2024 2:56pm do not give last dose of day after 6PM or within 4 hrs of bedtime Start: 01-16-2024 End: 03-26-2024 take 1 dose by mouth once daily at bedtime Midodrine Discontinued 10 MG PO Three times daily January 16, 2024 1:00am March 26, 2024 1:09pm do not give last dose of day after 6PM or within 4 hrs of bedtime 24 hr oxybutynin chloride 5 mg extended release oral tablet (20 sources) Cholinergic Muscarinic Antagonist Start: 01-16-2024 take 5 mg by mouth once daily Oxybutynin Chloride Active 5 MG PO Daily January 16, 2024 1:00am Start: 03-16-2022 take 1 tablet by jon th once daily oxybutynin 5 mg ER Tab 5 mg = 1 tab(s), Oral, Daily, # 90 tab(s), Refills(s) 3, Pharmacy: [id number], [id number], cm, 09/21/22 12:19:00 EDT, Height/Length Dosing, 99.3, kg, 09/21/22 12:19:00 EDT, Weight Dosing Start Date: 09/21/22 Status: Ordered potassium chloride 20 meq powder for oral solution (12 sources) take 1 dose by mouth once daily at mealtime Potassium Chloride 20 MEQ 1 packet with food Orally Once a day Active spironolactone 25 mg oral tablet (1 source) Aldosterone Antagonist Start: 02-20-20 take 25 mg by mouth once daily Spironolactone Active 25 MG PO Daily February 20, 2024 12:00am Vitamin B Complex oral capsule (2 sources) Start: 02-14-20 Vitamin B Complex oral capsule Oral, Daily, Refill(s) 0 Start Date: 02/14/20 Status: Ordered Completed/Discontinued Medications Medication Drug Class(es) Dates Sig (Normalized) Sig (Original) furosemide 40 mg oral tablet (20 sources) Loop Diuretic Start: 01-16-2024 End: 02-20-2024 take 40 mg by mouth once daily Furosemide Discontinued 40 MG PO Daily January 16, 2024 1:00am February 20, 2024 1:57pm Start: 12-30-2019 take 1 tablet by jon once daily Lasix 40 mg Tab See Instructions, tab(s) mg Oral Daily, Refills(s) 0 Start Date: 12/30/19 Status: Ordered Hydrocolloid Dressing (2 sources) Start: 01-16-2024 End: 02-07-2024 Hydrocolloid Dressing Discon tinued EACH TOPICAL January 16, 2024 1:00am February 07, 2024 9:36am Start: 01-16-2024 Hydrocolloid D ressing Active EACH TOPICAL January 16, 2024 12:00am liothyronine sodium 0.005 mg oral tablet (2 sources) l-Triiodothyronine Start: 01-16-2024 End: 02-07-2024 take 5 ug by mouth once daily Liothyronine Discontinued 5 MCG PO Daily January 16, 2024 1:00am February 07, 2024 9:36am lisinopril 2.5 mg oral tablet (13 sources) Angiotensin Converting Enzyme Inhibitor Start: 01-16-2024 End: 02-07-2024 Lisinopril Discontinued 2.5 MG PO Daily January 16, 2024 1:00am February 07, 2024 9:36am only take is systolic is above 95 Start: 12-25-2019 take 2.5 mg by mouth once geraldine y lisinopril 2.5 mg, Oral, Daily, Refills(s) 0 Start Date: 12/25/19 Status: Ordered melatonin 5 mg / vitamin b6 1 mg oral tablet (2 sources) Start: 01-16-2024 End: 02-07-2024 take 1 tablet by mouth once daily Melatonin-Pyridoxine (Vit B6) Discontinued 1 TAB PO Daily January 16, 2024 1:00am February 07, 2024 9:36am Problems Active Problems Problem Classification Problem Date [...] Onset: 11-29-2023 01-01-2020 Chronic Chronic kidney disease (12 sources) Chronic kidney disease stage 3B ; Translations: [Stage 3b chronic kidney disease] 01-16-2024 Chronic Chronic kidney disease (3 sources) Chronic kidney disease; Translations: [CHRONIC KIDNEY DISEASE STAGE 3A] Onset: 08-10-2022 Chronic ulcer of skin (16 sources) Pressure ulcer of right buttock, stage 1; Translations: [Pressure injury of right buttock stage I (disorder)] Chronic Coagulation and hemorrhagic disorders (3 sources) Thrombocytopenic disorder; Translations: [Thrombocytopenia, unspecified] Onset: 02-07-2024 01-16-2024 Chronic Conduction disorders (20 sources) Second degree atrioventricular block; 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] Onset: 08-10-2022 01-01-2020 Chronic Congestive heart failure; nonhypertensive (20 sources) Chronic systolic heart failure; Translations: [Chronic systolic (congestive) heart failure] Onset: 11-29-2023 Chronic Deficiency and other anemia (2 sources) Pancytopenia; Translations: [Other pancytopenia] 01-15-2024 Chronic Deficiency and other anemia (2 sources) Other pancytopenia; Translations: [Other pancytopenia] 01-16-2024 Chronic [...] Chronic Hypertension with complications and secondary hypertension (2 sources) Hypertensive chronic kidney disease with stage 1 through stage 4 chronic kidney disease, or unspecified chronic kidney disease; Translations: [Cardiorenal syndrome] Onset: 08-10-2022 02-18-2024 Chronic Malaise and fatigue (1 source) Weakness; Translations: [WEAKNESS] Onset: 08-10-2022 Episodic Other aftercare (6 sources) Other [facility] (current) drug therapy; Translations: [OTH HALFWAY CURRENT DRUG THERAPY] Onset: 07-08-2022 Episodic Other aftercare (1 source) technician terminal and repeater (current) use of aspirin; Translations: [MOUNTAIN SERVICES MANAGER CURRENT USE OF ASPIRIN] Onset: 08-16-2022 Episodic Other and ill-defined heart disease (2 sources) Left ventricular hypertrophy 01-01-2020 Chronic Other diseases of veins and lymphatics (19 sources) Peripheral venous insufficiency; Translations: [Venous insufficiency (chronic) (peripheral)] 01-01-2020 Episodic Other diseases of veins and lymphatics (7 sources) Venous insufficiency (chronic) (peripheral); Translations: [Venous (peripheral) insufficiency, unspecified] Episodic Other diseases of veins and lymphatics (2 sources) Venous insufficiency of leg; Translations: [Venous insufficiency (chronic) (peripheral)] 01-15-2024 Episodic Other lower respiratory disease (2 sources) Hypoxia; Translations: [Hypoxemia] 01-15-2024 Episodic Other lower [...] initial encounter] Onset: 08-16-2022 Episodic Thyroid disorders (4 sources) Subclinical hypothyroidism; Translations: [Other specified hypothyroidism] [...] Test Name Value Interpretation Reference Range Facility Basophils Auto (Bld) [#/Vol] on 09-10-2024 Basophils (Bld) [#/Vol] 0.0 10 3/uL 0.0-0.1 [facility] Basophils/100 WBC Auto (Bld) on 09-10-2024 Basophils/100 WBC (Bld) 0.6 % 0.2-2.0 [facility] Eosinophils/100 WBC Auto (Bl d)on 09-10-2024 Eosinophils/100 WBC (Bld) 2.7 % 0.9-7.0 [facility] Erythrocyte distribution wid th Auto (RBC) [Ratio]on 09-10-2024 Erythrocyte distribution width (RBC) [Ratio] 14.5 % 11.0-15.0 [facility] Estimated glomerular filtrat ion rate (GFR) non- Americanon 09-10-2024 GFR/1.73 sq M.predicted among non-blacks MDRD (S/P/Bld) [Vol rate/Area] 30 mL/min/{1.73_m2} Low >=60 mL/min/1.73m 2 [facility] Globulin Calc (S) [Mass/Vol] on 09-10-2024 Globulin (S) [Mass/Vol] 4.4 g/dL [facility] Hematocrit Auto (Bld) [Volum e fraction]on 09-10-2024 Hematocrit (Bld) [Volume fraction] 30.4 % Low 42.0-54.0 [facility] Hemoglobin [Mass/volume] in Bloodon 09-10-2024 Hemoglobin (Bld) [Mass/Vol] 9.9 g/dL Low 14.0-18.0 [facility] Iron binding capacity [Mass/ volume] in Serum or Plasmaon 09-10-2024 Iron binding capacity [Mass/Vol] 291.0 ug/dL 250.0-450.0 [facility] Iron saturation [Mass Fracti on] in Serum or Plasmaon 09-10-2024 Iron saturation [Mass fraction] 30.2 % [facility] Laboratory - Chemistry and C hemistry - challengeon 09-10-2024 Albumin [Mass/Vol] 3.4 g/dL 3.4-5.0 [facility] ALP [Catalytic activity/Vol] 106 U/L 46-116 [facility] ALT [Catalytic activity/Vol] 15 U/L Low 16-63 [facility] AST [Catalytic activity/Vol] 13 U/L Low 15-37 [facility] Bilirubin [Mass/Vol] 1.2 mg/dL High 0.2-1.0 [facility] Calcium [Mass/Vol] 9.9 mg/dL 8.5-10.1 [facility] Chloride [Moles/Vol] 101 mmol/L 98-107 [facility] CO2 [Moles/Vol] 30.1 mmol/L 21.0-32.0 [facility] Creatinine [Mass/Vol] 2.07 mg/dL High 0.70-1.30 [facility] Ferritin [Mass/Vol] 245.0 ng/mL 26.0-388.0 [facility] GFR/1.73 sq M.predicted MDRD (S/P/Bld) [Vol rate/Area] 37 mL/min/{1.73_m2} Low >=60 mL/min/1.73m 2 [facility] Glucose [Mass/Vol] 121 mg/dL High 74-106 [facility] Iron [Mass/Vol] 88.0 ug/dL 65.0-175.0 [facility] Natriuretic peptide B (Bld) [Mass/Vol] 2563.0 pg/mL High <=1800.0 [facility] Comment on above: RESULTS CALLED TO MINNIE MCDONNELL/DORIAN IN INFUSION Potassium [Moles/Vol] 4.2 mmol/L 3.5-5.1 [facility] Protein [Mass/Vol] 7.8 g/dL 6.4-8.2 [facility] Sodium [Moles/Vol] 143 mmol/L 136-145 [facility] Urea nitrogen [Mass/Vol] 49.0 mg/dL High 7.0-18.0 [facility] Urea nitrogen/Creatinine [Mass ratio] 23.7 mg/mg [facility] Laboratory - Hematology and Cell countson 09-10-2024 Immature granulocytes/100 WBC (Bld) 0.4 % 0.0-0.5 [facility] Leukocytes [#/volume] correc ayan for nucleated erythrocytes in Blood by Automated counon 09-10-2024 WBC corrected for nucl RBC Auto (Bld) [#/Vol] 4.8 10 3/uL 4.0-11.0 [facility] Lymphocytes Auto (Bld) [#/Vo l]on 09-10-2024 Lymphocytes (Bld) [#/Vol] 0.9 10 3/uL Low 1.2-3.8 [facility] Lymphocytes/100 WBC Auto (Bl d)on 09-10-2024 Lymphocytes/100 WBC (Bld) 19.4 % Low 20.5-60.0 [facility] MCH Auto (RBC) [Entitic mass ]on 09-10-2024 MCH (RBC) [Entitic mass] 34.4 pg High 25.9-34.0 [facility] MCHC Auto (RBC) [Mass/Vol]on 09-10-2024 MCHC (RBC) [Mass/Vol] 32.6 g/dL 29.9-35.2 [facility] MCV Auto (RBC) [Entitic vol] on 09-10-2024 MCV (RBC) [Entitic vol] 105.6 fL High 80.0-94.0 [facility] Monocytes Auto (Bld) [#/Vol] on 09-10-2024 Monocytes (Bld) [#/Vol] 0.8 10 3/uL 0.3-0.8 [facility] Monocytes/100 WBC Auto (Bld) on 09-10-2024 Monocytes/100 WBC (Bld) 16.4 % High 1.7-12.0 [facility] Neutrophils Auto (Bld) [#/Vo l]on 09-10-2024 Neutrophils (Bld) [#/Vol] 2.9 10 3/uL 1.4-6.5 [facility] Neutrophils/100 WBC Auto (Bl d)on 09-10-2024 Neutrophils/100 WBC (Bld) 60.5 % 43.0-75.0 [facility] No Panel Informationon 09-10 Eosinophils # (Auto) 0.1 10 3/uL 0.0-0.7 [facility] Immature Granulocyte # (Auto) 0.02 10 3/uL 0.00-0.03 [facility] Platelet mean volume Auto (B ld) [Entitic vol]on 09-10-2024 Platelet mean volume (Bld) [Entitic vol] 9.8 fL 9.5-13.5 [facility] Platelets Auto (Bld) [#/Vol] on 09-10-2024 Platelets (Bld) [#/Vol] 108 10 3/uL Low 150-450 [facility] RBC Auto (Bld) [#/Vol]on RBC (Bld) [#/Vol] 2.88 10 6/uL Low 4.70-6.10 [facility] Comment on above: MACROCYTOSIS 1+ Reticulocytes/100 RBC Auto ( Bld)on 09-10-2024 Reticulocytes/100 RBC (Bld) 3.16 % High 0.60-3.10 [facility] Serum or plasma albumin/glob ulin mass ratioon 09-10-2024 Albumin/Globulin [Mass ratio] 0.8 {ratio} [facility] Serum or plasma anion gap de terminationon 09-10-2024 Anion gap [Moles/Vol] 16.1 mmol/L [facility] 36on 08-20-2024 36 Patient made aware. Normal [facility] 36on 08-19-2024 36 You referred this patient to see Dr. Myles to discuss possible device upgrade. He was scheduled to see Dr. Myles tomorrow, but unfortunately Dr. Myles is sick. I spoke with Eris Warren and scheduled him to see Dr. Myles on 10/08 - which is his next available in [place]. He was very concerned that he wasn't being seen MANUELA . I told him I'd check with you to make sure this was ok. I think he needs some peace of mind. Please advise. Thanks. [facility] 36on 08-02-2024 36 I reviewed his labs. Renal function is stable. He can continue current diuretic dose and see nephrology as I recommended at last visit. Follow up with me in 3 months or sooner if needed. [facility] Basophils Auto (Bld) [#/Vol] on 08-01-2024 Basophils (Bld) [#/Vol] 0.0 10 3/uL 0.0-0.1 [facility] Basophils/100 WBC Auto (Bld) on 08-01-2024 Basophils/100 WBC (Bld) 0.6 % 0.2-2.0 [facility] Eosinophils/100 WBC Auto (Bl d)on 08-01-2024 Eosinophils/100 WBC (Bld) 1.5 % 0.9-7.0 [facility] Erythrocyte distribution wid th Auto (RBC) [Ratio]on 08-01-2024 Erythrocyte distribution width (RBC) [Ratio] 14.2 % 11.0-15.0 [facility] Estimated glomerular filtrat ion rate (GFR) non- Americanon 08-01-2024 GFR/1.73 sq M.predicted among non-blacks MDRD (S/P/Bld) [Vol rate/Area] 39 mL/min/{1.73_m2} Low >=60 [facility] Hematocrit Auto (Bld) [Volum e fraction]on 08-01-2024 Hematocrit (Bld) [Volume fraction] 30.0 % Low 42.0-54.0 [facility] Hemoglobin [Mass/volume] in Bloodon 08-01-2024 Hemoglobin (Bld) [Mass/Vol] 10.0 g/dL Low 14.0-18.0 [facility] Laboratory - Chemistry and C hemistry - challengeon 08-01-2024 Calcium [Mass/Vol] 9.4 mg/dL 8.5-10.1 [facility] Chloride [Moles/Vol] 99 mmol/L 98-107 [facility] CO2 [Moles/Vol] 32.3 mmol/L High 21.0-32.0 [facility] Creatinine [Mass/Vol] 1.66 mg/dL High 0.70-1.30 [facility] GFR/1.73 sq M.predicted MDRD (S/P/Bld) [Vol rate/Area] 48 mL/min/{1.73_m2} Low >=60 [facility] Glucose [Mass/Vol] 116 mg/dL High 74-106 [facility] Natriuretic peptide B (Bld) [Mass/Vol] 3181.0 pg/mL High <=1800.0 [facility] Comment on above: RESULTS CALLED TO AN Camille JOHNSTON AT 1241 Potassium [Moles/Vol] 4.5 mmol/L 3.5-5.1 [facility] Sodium [Moles/Vol] 139 mmol/L 136-145 [facility] Urea nitrogen [Mass/Vol] 60.0 mg/dL High 7.0-18.0 [facility] Urea nitrogen/Creatinine [Mass ratio] 36.1 mg/mg [facility] Laboratory - Hematology and Cell countson 08-01-2024 Immature granulocytes/100 WBC (Bld) 0.4 % 0.0-0.5 [facility] Leukocytes [#/volume] correc ayan for nucleated erythrocytes in Blood by Automated counon 08-01-2024 WBC corrected for nucl RBC Auto (Bld) [#/Vol] 5.4 10 3/uL 4.0-11.0 [facility] Lymphocytes Auto (Bld) [#/Vo l]on 08-01-2024 Lymphocytes (Bld) [#/Vol] 1.0 10 3/uL Low 1.2-3.8 [facility] Lymphocytes/100 WBC Auto (Bl d)on 08-01-2024 Lymphocytes/100 WBC (Bld) 17.8 % Low 20.5-60.0 [facility] MCH Auto (RBC) [Entitic mass ]on 08-01-2024 MCH (RBC) [Entitic mass] 35.0 pg High 25.9-34.0 [facility] MCHC Auto (RBC) [Mass/Vol]on 08-01-2024 MCHC (RBC) [Mass/Vol] 33.3 g/dL 29.9-35.2 [facility] MCV Auto (RBC) [Entitic vol] on 08-01-2024 MCV (RBC) [Entitic vol] 104.9 fL High 80.0-94.0 [facility] Monocytes Auto (Bld) [#/Vol] on 08-01-2024 Monocytes (Bld) [#/Vol] 1.1 10 3/uL High 0.3-0.8 [facility] Monocytes/100 WBC Auto (Bld) on 08-01-2024 Monocytes/100 WBC (Bld) 20.0 % High 1.7-12.0 [facility] Neutrophils Auto (Bld) [#/Vo l]on 08-01-2024 Neutrophils (Bld) [#/Vol] 3.2 10 3/uL 1.4-6.5 [facility] Neutrophils/100 WBC Auto (Bl d)on 08-01-2024 Neutrophils/100 WBC (Bld) 59.7 % 43.0-75.0 [facility] No Panel Informationon 08-01 Eosinophils # (Auto) 0.1 10 3/uL 0.0-0.7 [facility] Immature Granulocyte # (Auto) 0.02 10 3/uL 0.00-0.03 [facility] Platelet mean volume Auto (B ld) [Entitic vol]on 08-01-2024 Platelet mean volume (Bld) [Entitic vol] 10.0 fL 9.5-13.5 [facility] Platelets Auto (Bld) [#/Vol] on 08-01-2024 Platelets (Bld) [#/Vol] 111 10 3/uL Low 150-450 [facility] RBC Auto (Bld) [#/Vol]on RBC (Bld) [#/Vol] 2.86 10 6/uL Low 4.70-6.10 [facility] Serum or plasma anion gap de terminationon 08-01-2024 Anion gap [Moles/Vol] 12.2 mmol/L [facility] Telephoneon 08-01-2024 Telephone [id number] Samson Kelley 1935 M Date Provider Department Center 08/01/2024 Guevara5-ASAEL ZAMBRANO [facility] No family history on file Normal [facility] Basophils Auto (Bld) [#/Vol] on 06-26-2024 Basophils (Bld) [#/Vol] 0.0 10 3/uL 0.0-0.1 [facility] Basophils/100 WBC Auto (Bld) on 06-26-2024 Basophils/100 WBC (Bld) 0.4 % 0.2-2.0 [facility] Eosinophils/100 WBC Auto (Bl d)on 06-26-2024 Eosinophils/100 WBC (Bld) 1.8 % 0.9-7.0 [facility] Erythrocyte distribution wid th Auto (RBC) [Ratio]on 06-26-2024 Erythrocyte distribution width (RBC) [Ratio] 14.7 % 11.0-15.0 [facility] Estimated glomerular filtrat ion rate (GFR) non- Americanon 06-26-2024 GFR/1.73 sq M.predicted among non-blacks MDRD (S/P/Bld) [Vol rate/Area] 43 mL/min/{1.73_m2} Low >=60 [facility] Hematocrit Auto (Bld) [Volum e fraction]on 06-26-2024 Hematocrit (Bld) [Volume fraction] 29.7 % Low 42.0-54.0 [facility] Hemoglobin [Mass/volume] in Bloodon 06-26-2024 Hemoglobin (Bld) [Mass/Vol] 9.8 g/dL Low 14.0-18.0 [facility] Laboratory - Chemistry and C hemistry - challengeon 06-26-2024 Calcium [Mass/Vol] 9.4 mg/dL 8.5-10.1 [facility] Chloride [Moles/Vol] 98 mmol/L 98-107 [facility] CO2 [Moles/Vol] 31.3 mmol/L 21.0-32.0 [facility] Creatinine [Mass/Vol] 1.53 mg/dL High 0.70-1.30 [facility] GFR/1.73 sq M.predicted MDRD (S/P/Bld) [Vol rate/Area] 52 mL/min/{1.73_m2} Low >=60 [facility] Glucose [Mass/Vol] 117 mg/dL High 74-106 [facility] Potassium [Moles/Vol] 4.3 mmol/L 3.5-5.1 [facility] Sodium [Moles/Vol] 138 mmol/L 136-145 [facility] TSH Qn 0.139 m[IU]/L Low 0.358-3.740 [facility] Urea nitrogen [Mass/Vol] 50.0 mg/dL High 7.0-18.0 [facility] Urea nitrogen/Creatinine [Mass ratio] 32.7 mg/mg [facility] Laboratory - Hematology and Cell countson 06-26-2024 Immature granulocytes/100 WBC (Bld) 0.6 % High 0.0-0.5 [facility] Leukocytes [#/volume] correc ayan for nucleated erythrocytes in Blood by Automated counon 06-26-2024 WBC corrected for nucl RBC Auto (Bld) [#/Vol] 5.0 10 3/uL 4.0-11.0 [facility] Lymphocytes Auto (Bld) [#/Vo l]on 06-26-2024 Lymphocytes (Bld) [#/Vol] 1.1 10 3/uL Low 1.2-3.8 [facility] Lymphocytes/100 WBC Auto (Bl d)on 06-26-2024 Lymphocytes/100 WBC (Bld) 21.1 % 20.5-60.0 [facility] MCH Auto (RBC) [Entitic mass ]on 06-26-2024 MCH (RBC) [Entitic mass] 34.4 pg High 25.9-34.0 [facility] MCHC Auto (RBC) [Mass/Vol]on 06-26-2024 MCHC (RBC) [Mass/Vol] 33.0 g/dL 29.9-35.2 [facility] MCV Auto (RBC) [Entitic vol] on 06-26-2024 MCV (RBC) [Entitic vol] 104.2 fL High 80.0-94.0 [facility] Monocytes Auto (Bld) [#/Vol] on 06-26-2024 Monocytes (Bld) [#/Vol] 0.9 10 3/uL High 0.3-0.8 [facility] Monocytes/100 WBC Auto (Bld) on 06-26-2024 Monocytes/100 WBC (Bld) 17.7 % High 1.7-12.0 [facility] Neutrophils Auto (Bld) [#/Vo l]on 06-26-2024 Neutrophils (Bld) [#/Vol] 2.9 10 3/uL 1.4-6.5 [facility] Neutrophils/100 WBC Auto (Bl d)on 06-26-2024 Neutrophils/100 WBC (Bld) 58.4 % 43.0-75.0 [facility] No Panel Informationon 06-26 Eosinophils # (Auto) 0.1 10 3/uL 0.0-0.7 [facility] Immature Granulocyte # (Auto) 0.03 10 3/uL 0.00-0.03 [facility] Office Visiton 06-26-2024 Follow-up visit [id number] Samson Kelley 1935 M Date Provider Department Center 06/26/2024 ROSSI TORO [facility] No family history on file Level of Service:64184 [place] OFFICE/OUTPATIENT ESTABLISHED MOD MDM 30 MIN Normal [facility] Platelet mean volume Auto (B ld) [Entitic vol]on 06-26-2024 Platelet mean volume (Bld) [Entitic vol] 10.7 fL 9.5-13.5 [facility] Platelets Auto (Bld) [#/Vol] on 06-26-2024 Platelets (Bld) [#/Vol] 102 10 3/uL Low 150-450 [facility] RBC Auto (Bld) [#/Vol]on RBC (Bld) [#/Vol] 2.85 10 6/uL Low 4.70-6.10 [facility] Serum or plasma anion gap de terminationon 06-26-2024 Anion gap [Moles/Vol] 13.0 mmol/L [facility] 36on 03-28-2024 36 Regarding labs from 03/13/2024: JUAN FRANCISCO Pozo MA Please let him know his recent labs show his kidney function is stable. Continue medications as is and follow-up as scheduled. Thanks! Patient made aware. Normal [facility] Office Visiton 03-22-2024 Follow-up visit [id number] Samson Kelley 1935 M Date Provider Department Center 03/22/2024 ROSSI TORO WINNIE [facility] No family history on file Level of Service:75799 [place] OFFICE/OUTPATIENT ESTABLISHED MOD MDM 30 MIN Reason for Visit and Comments: Follow-up [626361] - 1 month [facility] 03-06-2024 29 Addended by: ERNESTINA MACEDO on: 03/06/2024 01:43 PM Modules accepted: Orders [facility] 03-06-2024 36 Spoke with patient and advised him of Bumex increase per Consuelo Calvin CNP. He verbalized understanding. He asked that I email him order for BMP to be done in 1 week by home health. He verbalized understanding. Order emailed to him. [facility] 36 Can we have him increase his bumex to 2mg daily x3 days then alternate every other day 1mg and 2mg. Follow-up BMP in 1 week. Thanks! [facility] Orders Onlyon 03-06-2024 Orders Only [id number] Samson Kelley 1935 M [facility] Provider Department Center 03/06/2024 928-ERNESTINA MACEDO WINNIE [facility] No family history on file [facility] 3603-05-2024 36 Patient called to make you aware that he gained 3# from yesterday to today. Also is a little more SOB since cutting Bumex back. Any recommendations? [facility] 3602-29-2024 36 His kidney function has mildly worsened. Please have him cut his bumex in half to 1mg daily. Let us know if he develops worsening SOB, leg swelling, weight gain. Thanks! [facility] 36on 02-28-2024 36 Today patient states his weight is steady at 195 feet a little puffy but better, breathing better on O2. Please call for lab results from today. Thanks! [facility] Telephoneon 02-28-2024 Telephone [id number] Samson Kelley 1935 M Date Provider Department Center 02/28/2024 JUAN LUIS RETANAaren . No family history on file [facility] Office Visiton 02-22-2024 Follow-up visit [id number] Samson Kelley 1935 M Date Provider Department Center 02/22/2024 JUAN LUIS RETANA [facility] No family history on file Level of Service:97950 [place] OFFICE/OUTPATIENT ESTABLISHED MOD MDM 30 MIN Reason for Visit and Comments: Hospital Follow-up [832] Congestive Heart Failure [127] Normal [facility] CT guided bone marrow bx/asp iron 02-07-2024 CT guided bone marrow bx/aspir [facility] [place] [address] [place] [address] CT Scan Report Signed Patient: Samson Kelley MR#: [id number] : 1935 Acct:[id number] Age/Sex: 88 / M ADM Date: 02/07/24 Loc: CT Room: Type: [facility] Attending Dr: Martha Meier MD Copies to: [...] Zach Ontiveros M.D.02/07/2024 2:21 PM Dictation Location: [place] [address] Transcribed By: [facility] 02/07/24 1421 Dictated By: Zach Ontiveros II, MD 02/07/24 1418 Signed By: 02/07/24 1421 Normal [facility] Coagulation Profileon 2023 aPTT Coag (Bld) [Time] 41.4 s High 25.1-36.5 [facility] Comment on above: Result Comment: A he matocrit value greater than 55% may lead to inaccurate results in coagulation testing. Patients having hematocrit values >55% require a special collection tube for coagulation studies. Please contact the laboratory at [phone] for redraw instructions. PERFORMED BY: [place] [address] PATHOLOGIST SCALPING MACHINE OPERATOR DILIA SUAZO M.D. Performed By: #### C BC, PP #### [address] INR Coag (PPP) [Relative time] 1.2 {INR} Normal [facility] Comment on above: Result Comment: [...] Performed By: #### C BC, PP #### [place] [id number] [facility] PT Coag (PPP) [Time] 13.2 s High 9.0-12.9 [facility] Comment on above: Result Comment: A he matocrit value greater than 55% may lead to inaccurate results in coagulation testing. Patients having hematocrit values >55% require a special collection tube for coagulation studies. Please contact the laboratory at [phone] for redraw instructions. Performed By: #### C BC, PP #### [place] [id number] [facility] Complete Blood Count Auto Di ffon 02-07-2024 Basophils (Bld) [#/Vol] 0.0 10*3/uL Normal 0.0-0.2 [facility] Comment on above: Result Comment: PERF ORMED BY: [place] [address] PATHOLOGIST SCALPING MACHINE OPERATOR DILIA SUAZO M.D. Performed By: #### C BC, PP #### [address] Basophils/100 WBC (Bld) 0.9 % Normal . [facility] Comment on above: Performed By: #### C BC, PP #### [address] Eosinophils (Bld) [#/Vol] 0.1 10*3/uL Normal 0.0-0.45 [facility] Comment on above: Performed By: #### C BC, PP #### [address] Eosinophils/100 WBC (Bld) 1.8 % Normal . [facility] Comment on above: Performed By: #### C BC, PP #### [address] Erythrocyte distribution width (RBC) [Ratio] 16.5 % High 12.0-14.8 [facility] Comment on above: Performed By: #### C BC, PP #### [address] Hematocrit (Bld) [Volume fraction] 31.0 % Low 38.8-50.0 [facility] Comment on above: Performed By: #### C BC, PP #### [address] Hemoglobin (Bld) [Mass/Vol] 10.3 g/dL Low 13.0-17.0 [facility] Comment on above: Performed By: #### C BC, PP #### [address] Lymphocytes (Bld) [#/Vol] 0.6 10*3/uL Low 1.00-4.8 [facility] Comment on above: Performed By: #### C BC, PP #### [address] Lymphocytes/100 WBC (Bld) 13.7 % Normal . [facility] Comment on above: Performed By: #### C BC, PP #### [address] MCH (RBC) [Entitic mass] 34.5 pg Normal 27.5-35.2 [facility] Comment on above: Performed By: #### C BC, PP #### [address] MCV (RBC) [Entitic vol] 103.8 fL High 83.5-101 [facility] Comment on above: Performed By: #### C BC, PP #### [address] Mean Corpuscular HGB Conc 33.2 g/dL Normal 32.5-35.6 [facility] Comment on above: Performed By: #### C BC, PP #### [address] Monocytes (Bld) [#/Vol] 0.6 10*3/uL Normal 0.0-0.8 [facility] Comment on above: Performed By: #### C BC, PP #### [address] Monocytes/100 WBC (Bld) 14.1 % Normal . [facility] Comment on above: Performed By: #### C BC, PP #### [address] Neutrophils (Bld) [#/Vol] 3.1 10*3/uL Normal 1.8-7.7 [facility] Comment on above: Performed By: #### C BC, PP #### [address] Neutrophils/100 WBC (Bld) 69.5 % Normal . [facility] Comment on above: Performed By: #### C BC, PP #### [facility] [address] NRBC% 0.3 /100{WBC} Normal 0-0.5 [facility] Comment on above: Performed By: #### C BC, PP #### [facility] [address] Platelet mean volume (Bld) [Entitic vol] 9.2 fL Normal 6.6-10.1 [facility] Comment on above: Performed By: #### C BC, PP #### [facility] [address] Platelets (Bld) [#/Vol] 84 10*3/uL Low 150-450 [facility] Comment on above: Performed By: #### C BC, PP #### [address] RBC (Bld) [#/Vol] 2.99 10*6/uL Low 3.90-5.[address] [facility] Comment on above: Performed By: #### C BC, PP #### [address] WBC (Bld) [#/Vol] 4.4 10*3/uL Normal 4.1-10.5 [facility] Comment on above: Performed By: #### C BC, PP #### [address] Sam 02-07-2024 L Specimen: [id number] Received: 02/07/241153 [facility] Num: [id number] Spec Type: Bone Marro Subm Dr: Zach Ontiveros II, MD Tissues: A Bone Marrow Aspirate (Clot) (LT ILIAC CREST) B Bone Marrow Biopsy/Core (LT ILIAC CREST) Procedures: Peripheral Smr, Iron/3, HE/4, Gross/Micro L4/2, Bm Smear/2, CD138, CD20, CD3, Decalcification, Bone Marrow TP, GIEMSA STN/6 Age/ Patient Sex Location Account Attending Physician Samson Kelley 88/M CT [id number] Martha Meier MD SPEC NUM: [id number] RECD: 02/07/24 STATUS: PRIYANKA SARAVIA NUM: [id number] AURA: 02/07/24-105 [facility] DR: Zach Ontiveros II, MD ENTERED: 02/07/24-[address] [facility] [address]: SPEC TYPE: Bone Marro DEPT: BM ORDERED: Peripheral Smr, Iron/3, HE/4, Gross/Micro L4/2, Bm Smear/2, CD138, CD20, CD3, Decalcification, Bone Marrow TP, GIEMSA STN/6 ORDERED: Peripheral Smr, Iron/3, HE/4, Gross/Micro L4/2, Bm Smear/2, CD138, CD20, CD3, USS/14, Decalcification, Bone Marrow TP, GIEMSA STN/6 Supplemental Report Addendum 2 Entered: 02/16/24 This Case Was Sent To [facility] For additional testing. Results are as follows:? 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 Please Refer To The attached [facility] Report For Diagnostic Details Addendum Signed (signature on file) Naz Spence MD 02/16/241215 Addendum 1 Entered: 02/15/24 FISH testing results are negative. Please refer to the FISH report for details. Specimen: [id number] Received: 02/07/24 Status: PRIYANKA Saravia Num: [id number] Spec Type: Nishant Brown Dr: Zach Ontiveros II, MD Tissues: A Bone Marrow Aspirate (Clot) (LT ILIAC CREST) B Bone Marrow Biopsy/Core (LT ILIAC CREST) Procedures: Peripheral Smr, Iron/3, HE/4, Gross/Micro L4/2, Bm Smear/2, CD138, CD20, CD3, Decalcification, Bone Marrow TP, GIEMSA STN/6 Patient: Samson Kelley [id number] (Continued) Specimen: [id number] Received: 02/07/24 (Continued) Supplemental Report (Continued) Signed (signature on file) Lalita Lipscomb MD 02/09/24 1529 Specimen: [id number] Received: 02/07/24 Status: PRIYANKA [place] Num: [id number] Spec Type: Bone Marro Subm Dr: Zach Ontiveros II, MD Tissues: A Bone Marrow Aspirate (Clot) (LT ILIAC CREST) B Bone Marrow Biopsy/Core (LT ILIAC CREST) Procedures: Peripheral Smr, Iron/3, HE/4, Gross/Micro L4/2, Bm Smear/2, CD138, CD20, CD3, Decalcification, Bone Marrow TP, GIEMSA STN/6 Patient: Samson Kelley [id number] (Continued) Specimen: [id number] Received: 02/07/24-1153 (Continued) Supplemental [...] to (more content not included)... Normal [facility] 36on 02-01-2024 36 Regarding BMP [...] Dr. Orosco on 02/12/2024 at 10:15am. Normal [facility] Orders Onlyon 01-31-2024 Orders Only [id number] Samson Kelley 1935 M Date Provider Department Center 01/31/[address] No family history on file Normal [facility] 37on 01-26-2024 37 May take lasix 1 [...] pillows than normal or in recliner. Normal [facility] Office Visiton 01-26-2024 Follow-up visit [id number] Samson Kelley 1935 M Provider Department Center 01/26/2024 VENECIA FRANKLIN WINNIE [facility] No family history on file Level of Service:70419 [place] OFFICE/OUTPATIENT ESTABLISHED MOD MDM 30 MIN Normal [facility] Basophils Auto (Bld) [#/Vol] on 01-12-2024 Basophils (Bld) [#/Vol] 0.0 10 3/uL 0.0-0.1 [facility] Basophils/100 WBC Auto (Bld) on 01-12-2024 Basophils/100 WBC (Bld) 0.2 % 0.2-2.0 [facility] Eosinophils/100 WBC Auto (Bl d)on 01-12-2024 Eosinophils/100 WBC (Bld) 1.2 % 0.9-7.0 [facility] Erythrocyte distribution wid th Auto (RBC) [Ratio]on 01-12-2024 Erythrocyte distribution width (RBC) [Ratio] 15.9 % 11.0-15.0 [facility] Estimated glomerular filtrat ion rate (GFR) non- Americanon 01-12-2024 GFR/1.73 sq M.predicted among non-blacks MDRD (S/P/Bld) [Vol rate/Area] 44 mL/min/{1.73_m2} >=60 [facility] Globulin Calc (S) [Mass/Vol] on 01-12-2024 Globulin (S) [Mass/Vol] 4.3 g/dL [facility] Hematocrit Auto (Bld) [Volum e fraction]on 01-12-2024 Hematocrit (Bld) [Volume fraction] 30.0 % 42.0-54.0 [facility] Hemoglobin [Mass/volume] in Bloodon 01-12-2024 Hemoglobin (Bld) [Mass/Vol] 9.5 g/dL 14.0-18.0 [facility] Laboratory - Chemistry and C hemistry - challengeon 01-12-2024 Albumin [Mass/Vol] 2.9 g/dL 3.4-5.0 [facility] ALP [Catalytic activity/Vol] 93 U/L 46-116 [facility] ALT [Catalytic activity/Vol] 17 U/L 16-63 [facility] AST [Catalytic activity/Vol] 11 U/L 15-37 [facility] Bilirubin [Mass/Vol] 1.9 mg/dL 0.2-1.0 [facility] Calcium [Mass/Vol] 9.0 mg/dL 8.5-10.1 [facility] Chloride [Moles/Vol] 106 mmol/L 98-107 [facility] CO2 [Moles/Vol] 28.1 mmol/L 21.0-32.0 [facility] Creatinine [Mass/Vol] 1.49 mg/dL 0.70-1.30 [facility] GFR/1.73 sq M.predicted MDRD (S/P/Bld) [Vol rate/Area] 54 mL/min/{1.73_m2} >=60 [facility] Glucose [Mass/Vol] 94 mg/dL 74-106 [facility] Natriuretic peptide B (Bld) [Mass/Vol] 4324.0 pg/mL <=1800.0 [facility] Comment on above: RESULTS CALLED TO SANJUANITA CORNELL RN @BY Radha Corea at 0645 Potassium [Moles/Vol] 4.2 mmol/L 3.5-5.1 [facility] Protein [Mass/Vol] 7.2 g/dL 6.4-8.2 [facility] Sodium [Moles/Vol] 141 mmol/L 136-145 [facility] Urea nitrogen [Mass/Vol] 52.0 mg/dL 7.0-18.0 [facility] Urea nitrogen/Creatinine [Mass ratio] 34.9 mg/mg [facility] Laboratory - Hematology and Cell countson 01-12-2024 Immature granulocytes/100 WBC (Bld) 0.2 % 0.0-0.5 [facility] Leukocytes [#/volume] correc ayan for nucleated erythrocytes in Blood by Automated counon 01-12-2024 WBC corrected for nucl RBC Auto (Bld) [#/Vol] 4.3 10 3/uL 4.0-11.0 [facility] Lymphocytes Auto (Bld) [#/Vo l]on 01-12-2024 Lymphocytes (Bld) [#/Vol] 0.9 10 3/uL 1.2-3.8 [facility] Lymphocytes/100 WBC Auto (Bl d)on 01-12-2024 Lymphocytes/100 WBC (Bld) 19.9 % 20.5-60.0 [facility] MCH Auto (RBC) [Entitic mass ]on 01-12-2024 MCH (RBC) [Entitic mass] 34.5 pg 25.9-34.0 [facility] MCHC Auto (RBC) [Mass/Vol]on 01-12-2024 MCHC (RBC) [Mass/Vol] 31.7 g/dL 29.9-35.2 [facility] MCV Auto (RBC) [Entitic vol] on 01-12-2024 MCV (RBC) [Entitic vol] 109.1 fL 80.0-94.0 [facility] Monocytes Auto (Bld) [#/Vol] on 01-12-2024 Monocytes (Bld) [#/Vol] 0.7 10 3/uL 0.3-0.8 [facility] Monocytes/100 WBC Auto (Bld) on 01-12-2024 Monocytes/100 WBC (Bld) 16.9 % 1.7-12.0 [facility] Neutrophils Auto (Bld) [#/Vo l]on 01-12-2024 Neutrophils (Bld) [#/Vol] 2.7 10 3/uL 1.4-6.5 [facility] Neutrophils/100 WBC Auto (Bl d)on 01-12-2024 Neutrophils/100 WBC (Bld) 61.6 % 43.0-75.0 [facility] No Panel Informationon 01-12 Digoxin Level 1.4 ng/mL 0.9-2.0 [facility] Eosinophils # (Auto) 0.1 10 3/uL 0.0-0.7 [facility] Immature Granulocyte # (Auto) 0.01 10 3/uL 0.00-0.03 [facility] Platelet mean volume Auto (B ld) [Entitic vol]on 01-12-2024 Platelet mean volume (Bld) [Entitic vol] 11.5 fL 9.5-13.5 [facility] Platelets Auto (Bld) [#/Vol] on 01-12-2024 Platelets (Bld) [#/Vol] 69 10 3/uL 150-450 [facility] RBC Auto (Bld) [#/Vol]on RBC (Bld) [#/Vol] 2.75 10 6/uL 4.70-6.10 [facility] Serum or plasma albumin/glob ulin mass ratioon 01-12-2024 Albumin/Globulin [Mass ratio] 0.7 {ratio} [facility] Serum or plasma anion gap de terminationon 01-12-2024 Anion gap [Moles/Vol] 11.1 [facility] Bas[facility] Auto (Bld) [#/Vol] on 01-11-2024 Basophils (Bld) [#/Vol] 0.0 10 3/uL 0.0-0.1 [facility] Basophils/100 WBC Auto (Bld) on 01-11-2024 Basophils/100 WBC (Bld) 0.4 % 0.2-2.0 [facility] Eosinophils/100 WBC Auto (Bl d)on 01-11-2024 Eosinophils/100 WBC (Bld) 0.8 % 0.9-7.0 [facility] Erythrocyte distribution wid th Auto (RBC) [Ratio]on 01-11-2024 Erythrocyte distribution width (RBC) [Ratio] 16.2 % 11.0-15.0 [facility] Estimated glomerular filtrat ion rate (GFR) non- Americanon 01-11-2024 GFR/1.73 sq M.predicted among non-blacks MDRD (S/P/Bld) [Vol rate/Area] 40 mL/min/{1.73_m2} >=60 [facility] Globulin Calc (S) [Mass/Vol] on 01-11-2024 Globulin (S) [Mass/Vol] 4.7 g/dL [facility] Hematocrit Auto (Bld) [Volum e fraction]on 01-11-2024 Hematocrit (Bld) [Volume fraction] 32.4 % 42.0-54.0 [facility] Hemoglobin [Mass/volume] in Bloodon 01-11-2024 Hemoglobin (Bld) [Mass/Vol] 10.0 g/dL 14.0-18.0 [facility] Laboratory - Chemistry and C hemistry - challengeon 01-11-2024 Albumin [Mass/Vol] 3.0 g/dL 3.4-5.0 [facility] ALP [Catalytic activity/Vol] 95 U/L 46-116 [facility] ALT [Catalytic activity/Vol] 20 U/L 16-63 [facility] AST [Catalytic activity/Vol] 13 U/L 15-37 [facility] Bilirubin [Mass/Vol] 1.9 mg/dL 0.2-1.0 [facility] Calcium [Mass/Vol] 9.0 mg/dL 8.5-10.1 [facility] Chloride [Moles/Vol] 103 mmol/L 98-107 [facility] CO2 [Moles/Vol] 27.5 mmol/L 21.0-32.0 [facility] Creatinine [Mass/Vol] 1.64 mg/dL 0.70-1.30 [facility] GFR/1.73 sq M.predicted MDRD (S/P/Bld) [Vol rate/Area] 48 mL/min/{1.73_m2} >=60 [facility] Glucose [Mass/Vol] 90 mg/dL 74-106 [facility] Natriuretic peptide B (Bld) [Mass/Vol] 3351.0 pg/mL <=1800.0 [facility] Comment on above: RESULTS CALLED TO PATY PATTON RN @BY Radha Corea at 0640 Potassium [Moles/Vol] 4.2 mmol/L 3.5-5.1 [facility] Protein [Mass/Vol] 7.7 g/dL 6.4-8.2 [facility] Sodium [Moles/Vol] 141 mmol/L 136-145 [facility] Urea nitrogen [Mass/Vol] 54.0 mg/dL 7.0-18.0 [facility] Urea nitrogen/Creatinine [Mass ratio] 32.9 mg/mg [facility] Laboratory - Hematology and Cell countson 01-11-2024 Immature granulocytes/100 WBC (Bld) 0.2 % 0.0-0.5 [facility] Leukocytes [#/volume] correc ayan for nucleated erythrocytes in Blood by Automated counon 01-11-2024 WBC corrected for nucl RBC Auto (Bld) [#/Vol] 4.8 10 3/uL 4.0-11.0 [facility] Lymphocytes Auto (Bld) [#/Vo l]on 01-11-2024 Lymphocytes (Bld) [#/Vol] 0.9 10 3/uL 1.2-3.8 [facility] Lymphocytes/100 WBC Auto (Bl d)on 01-11-2024 Lymphocytes/100 WBC (Bld) 18.6 % 20.5-60.0 [facility] MCH Auto (RBC) [Entitic mass ]on 01-11-2024 MCH (RBC) [Entitic mass] 34.0 pg 25.9-34.0 [facility] MCHC Auto (RBC) [Mass/Vol]on 01-11-2024 MCHC (RBC) [Mass/Vol] 30.9 g/dL 29.9-35.2 [facility] MCV Auto (RBC) [Entitic vol] on 01-11-2024 MCV (RBC) [Entitic vol] 110.2 fL 80.0-94.0 [facility] Monocytes Auto (Bld) [#/Vol] on 01-11-2024 Monocytes (Bld) [#/Vol] 0.7 10 3/uL 0.3-0.8 [facility] Monocytes/100 WBC Auto (Bld) on 01-11-2024 Monocytes/100 WBC (Bld) 14.9 % 1.7-12.0 [facility] Neutrophils Auto (Bld) [#/Vo l]on 01-11-2024 Neutrophils (Bld) [#/Vol] 3.1 10 3/uL 1.4-6.5 [facility] Neutrophils/100 WBC Auto (Bl d)on 01-11-2024 Neutrophils/100 WBC (Bld) 65.1 % 43.0-75.0 [facility] No Panel Informationon 01-11 Digoxin Level 1.5 ng/mL 0.9-2.0 [facility] Eosinophils # (Auto) 0.0 10 3/uL 0.0-0.7 [facility] Immature Granulocyte # (Auto) 0.01 10 3/uL 0.00-0.03 [facility] Platelet mean volume Auto (B ld) [Entitic vol]on 01-11-2024 Platelet mean volume (Bld) [Entitic vol] 11.2 fL 9.5-13.5 [facility] Platelets Auto (Bld) [#/Vol] on 01-11-2024 Platelets (Bld) [#/Vol] 71 10 3/uL 150-450 [facility] RBC Auto (Bld) [#/Vol]on RBC (Bld) [#/Vol] 2.94 10 6/uL 4.70-6.10 [facility] Serum or plasma albumin/glob ulin mass ratioon 01-11-2024 Albumin/Globulin [Mass ratio] 0.6 {ratio} [facility] Serum or plasma anion gap de terminationon 01-11-2024 Anion gap [Moles/Vol] 14.7 mmol/L [facility] Basophils Auto (Bld) [#/Vol] on 01-10-2024 Basophils (Bld) [#/Vol] 0.0 10 3/uL 0.0-0.1 [facility] Basophils/100 WBC Auto (Bld) on 01-10-2024 Basophils/100 WBC (Bld) 0.3 % 0.2-2.0 [facility] Eosinophils/100 WBC Auto (Bl d)on 01-10-2024 Eosinophils/100 WBC (Bld) 1.3 % 0.9-7.0 [facility] Erythrocyte distribution wid th Auto (RBC) [Ratio]on 01-10-2024 Erythrocyte distribution width (RBC) [Ratio] 16.1 % 11.0-15.0 [facility] Estimated glomerular filtrat ion rate (GFR) non- Americanon 01-10-2024 GFR/1.73 sq M.predicted among non-blacks MDRD (S/P/Bld) [Vol rate/Area] 39 mL/min/{1.73_m2} >=60 [facility] Globulin Calc (S) [Mass/Vol] on 01-10-2024 Globulin (S) [Mass/Vol] 4.0 g/dL [facility] Hematocrit Auto (Bld) [Volum e fraction]on 01-10-2024 Hematocrit (Bld) [Volume fraction] 30.6 % 42.0-54.0 [facility] Hemoglobin [Mass/volume] in Bloodon 01-10-2024 Hemoglobin (Bld) [Mass/Vol] 9.6 g/dL 14.0-18.0 [facility] Laboratory - Chemistry and C hemistry - challengeon 01-10-2024 Albumin [Mass/Vol] 2.8 g/dL 3.4-5.0 [facility] ALP [Catalytic activity/Vol] 90 U/L 46-116 [facility] ALT [Catalytic activity/Vol] 20 U/L 16-63 [facility] AST [Catalytic activity/Vol] 12 U/L 15-37 [facility] Bilirubin [Mass/Vol] 1.6 mg/dL 0.2-1.0 [facility] Calcium [Mass/Vol] 8.9 mg/dL 8.5-10.1 [facility] Chloride [Moles/Vol] 105 mmol/L 98-107 [facility] CO2 [Moles/Vol] 27.1 mmol/L 21.0-32.0 [facility] Creatinine [Mass/Vol] 1.65 mg/dL 0.70-1.30 [facility] GFR/1.73 sq M.predicted MDRD (S/P/Bld) [Vol rate/Area] 48 mL/min/{1.73_m2} >=60 [facility] Glucose [Mass/Vol] 91 mg/dL 74-106 [facility] Natriuretic peptide B (Bld) [Mass/Vol] 2269.0 pg/mL <=1800.0 [facility] Comment on above: RESULTS CALLED TO [Aristeo PERALTA/RN]@BY Adeline Sam 0643 Potassium [Moles/Vol] 4.9 mmol/L 3.5-5.1 [facility] Protein [Mass/Vol] 6.8 g/dL 6.4-8.2 [facility] Sodium [Moles/Vol] 140 mmol/L 136-145 [facility] T4 [Mass/Vol] 5.20 ug/dL 4.50-12.10 [facility] Urea nitrogen [Mass/Vol] 63.0 mg/dL 7.0-18.0 [facility] Urea nitrogen/Creatinine [Mass ratio] 38.2 mg/mg [facility] Laboratory - Hematology and Cell countson 01-10-2024 Immature granulocytes/100 WBC (Bld) 0.3 % 0.0-0.5 [facility] Leukocytes [#/volume] correc ayan for nucleated erythrocytes in Blood by Automated counon 01-10-2024 WBC corrected for nucl RBC Auto (Bld) [#/Vol] 3.9 10 3/uL 4.0-11.0 [facility] Lymphocytes Auto (Bld) [#/Vo l]on 01-10-2024 Lymphocytes (Bld) [#/Vol] 0.9 10 3/uL 1.2-3.8 [facility] Lymphocytes/100 WBC Auto (Bl d)on 01-10-2024 Lymphocytes/100 WBC (Bld) 21.8 % 20.5-60.0 [facility] MCH Auto (RBC) [Entitic mass ]on 01-10-2024 MCH (RBC) [Entitic mass] 34.7 pg 25.9-34.0 [facility] [facility] M[facility]C Auto (RBC) [Mass/Vol]on 01-10-2024 MCHC (RBC) [Mass/Vol] 31.4 g/dL 29.9-35.2 [facility] MCV Auto (RBC) [Entitic vol] on 01-10-2024 MCV (RBC) [Entitic vol] 110.5 fL 80.0-94.0 [facility] Monocytes Auto (Bld) [#/Vol] on 01-10-2024 Monocytes (Bld) [#/Vol] 0.6 10 3/uL 0.3-0.8 [facility] Monocytes/100 WBC Auto (Bld) on 01-10-2024 Monocytes/100 WBC (Bld) 15.4 % 1.7-12.0 [facility] Neutrophils Auto (Bld) [#/Vo l]on 01-10-2024 Neutrophils (Bld) [#/Vol] 2.4 10 3/uL 1.4-6.5 [facility] Neutrophils/100 WBC Auto (Bl d)on 01-10-2024 Neutrophils/100 WBC (Bld) 60.9 % 43.0-75.0 [facility] No Panel Informationon 01-10 Digoxin Level 1.6 ng/mL 0.9-2.0 [facility] Eosinophils # (Auto) 0.1 10 3/uL 0.0-0.7 [facility] Free Triiodothyronine 1.89 pg/mL 2.18-3.98 [facility] Immature Granulocyte # (Auto) 0.01 10 3/uL 0.00-0.03 [facility] Platelet mean volume Auto (B ld) [Entitic vol]on 01-10-2024 Platelet mean volume (Bld) [Entitic vol] 11.8 fL 9.5-13.5 [facility] Platelets Auto (Bld) [#/Vol] on 01-10-2024 Platelets (Bld) [#/Vol] 66 10 3/uL 150-450 [facility] RBC Auto (Bld) [#/Vol]on RBC (Bld) [#/Vol] 2.77 10 6/uL 4.70-6.10 [facility] Serum or plasma albumin/glob ulin mass ratioon 01-10-2024 Albumin/Globulin [Mass ratio] 0.7 {ratio} [facility] Serum or plasma anion gap de terminationon 01-10-2024 Anion gap [Moles/Vol] 12.8 [facility]L [facility] Basophils Auto (Bld) [#/Vol] on 01-09-2024 Basophils (Bld) [#/Vol] 0.0 10 3/uL 0.0-0.1 [facility] Basophils/100 WBC Auto (Bld) on 01-09-2024 Basophils/100 WBC (Bld) 0.3 % 0.2-2.0 [facility] Eosinophils/100 WBC Auto (Bl d)on 01-09-2024 Eosinophils/100 WBC (Bld) 1.5 % 0.9-7.0 [facility] Erythrocyte distribution wid th Auto (RBC) [Ratio]on 01-09-2024 Erythrocyte distribution width (RBC) [Ratio] 16.1 % 11.0-15.0 [facility] Estimated glomerular filtrat ion rate (GFR) non- Americanon 01-09-2024 GFR/1.73 sq M.predicted among non-blacks MDRD (S/P/Bld) [Vol rate/Area] 39 mL/min/{1.73_m2} >=60 [facility] Globulin Calc (S) [Mass/Vol] on 01-09-2024 Globulin (S) [Mass/Vol] 3.9 g/dL [facility] Hematocrit Auto (Bld) [Volum e fraction]on 01-09-2024 Hematocrit (Bld) [Volume fraction] 28.9 % 42.0-54.0 [facility] Hemoglobin [Mass/volume] in Bloodon 01-09-2024 Hemoglobin (Bld) [Mass/Vol] 9.0 g/dL 14.0-18.0 [facility] Laboratory - Chemistry and C hemistry - challengeon 01-09-2024 Albumin [Mass/Vol] 2.8 g/dL 3.4-5.0 [facility] ALP [Catalytic activity/Vol] 82 U/L 46-116 [facility] ALT [Catalytic activity/Vol] 20 U/L 16-63 [facility] AST [Catalytic activity/Vol] 12 U/L 15-37 [facility] Bilirubin [Mass/Vol] 1.3 mg/dL 0.2-1.0 [facility] Calcium [Mass/Vol] 8.7 mg/dL 8.5-10.1 [facility] Chloride [Moles/Vol] 104 mmol/L 98-107 [facility] CO2 [Moles/Vol] 28.1 mmol/L 21.0-32.0 [facility] Creatinine [Mass/Vol] 1.66 mg/dL 0.70-1.30 [facility] GFR/1.73 sq M.predicted MDRD (S/P/Bld) [Vol rate/Area] 48 mL/min/{1.73_m2} >=60 [facility] Glucose [Mass/Vol] 76 mg/dL 74-106 [facility] Natriuretic peptide B (Bld) [Mass/Vol] 2379.0 pg/mL <=1800.0 [facility] Comment on above: RESULTS CALLED TO SANJUANITA CANALES/RN@BY Adeline Sam 0645 Potassium [Moles/Vol] 4.7 mmol/L 3.5-5.1 [facility] Protein [Mass/Vol] 6.7 g/dL 6.4-8.2 [facility] Sodium [Moles/Vol] 139 mmol/L 136-145 [facility] Urea nitrogen [Mass/Vol] 69.0 mg/dL 7.0-18.0 [facility] Urea nitrogen/Creatinine [Mass ratio] 41.6 mg/mg [facility] Laboratory - Hematology and Cell countson 01-09-2024 Immature granulocytes/100 WBC (Bld) 0.3 % 0.0-0.5 [facility] Leukocytes [#/volume] correc ayan for nucleated erythrocytes in Blood by Automated counon 01-09-2024 WBC corrected for nucl RBC Auto (Bld) [#/Vol] 3.3 10 3/uL 4.0-11.0 [facility] Lymphocytes Auto (Bld) [#/Vo l]on 01-09-2024 Lymphocytes (Bld) [#/Vol] 0.7 10 3/uL 1.2-3.8 [facility] Lymphocytes/100 WBC Auto (Bl d)on 01-09-2024 Lymphocytes/100 WBC (Bld) 21.6 % 20.5-60.0 [facility] MCH Auto (RBC) [Entitic mass ]on 01-09-2024 MCH (RBC) [Entitic mass] 34.1 pg 25.9-34.0 [facility] MCHC Auto (RBC) [Mass/Vol]on 01-09-2024 MCHC (RBC) [Mass/Vol] 31.1 g/dL 29.9-35.2 [facility] MCV Auto (RBC) [Entitic vol] on 01-09-2024 MCV (RBC) [Entitic vol] 109.5 fL 80.0-94.0 [facility] Monocytes Auto (Bld) [#/Vol] on 01-09-2024 Monocytes (Bld) [#/Vol] 0.6 10 3/uL 0.3-0.8 [facility] Monocytes/100 WBC Auto (Bld) on 01-09-2024 Monocytes/100 WBC (Bld) 18.3 % 1.7-12.0 [facility] Neutrophils Auto (Bld) [#/Vo l]on 01-09-2024 Neutrophils (Bld) [#/Vol] 1.9 10 3/uL 1.4-6.5 [facility] Neutrophils/100 WBC Auto (Bl d)on 01-09-2024 Neutrophils/100 WBC (Bld) 58.0 % 43.0-75.0 [facility] No Panel Informationon 01-09 Eosinophils # (Auto) 0.1 10 3/uL 0.0-0.7 [facility] Immature Granulocyte # (Auto) 0.01 10 3/uL 0.00-0.03 [facility] Platelet mean volume Auto (B ld) [Entitic vol]on 01-09-2024 Platelet mean volume (Bld) [Entitic vol] 12.0 fL 9.5-13.5 [facility] Platelets Auto (Bld) [#/Vol] on 01-09-2024 Platelets (Bld) [#/Vol] 76 10 3/uL 150-450 [facility] RBC Auto (Bld) [#/Vol]on RBC (Bld) [#/Vol] 2.64 10 6/uL 4.70-6.10 [facility] Serum or plasma albumin/glob ulin mass ratioon 01-09-2024 Albumin/Globulin [Mass ratio] 0.7 {ratio} [facility] Serum or plasma anion gap de terminationon 01-09-2024 Anion gap [Moles/Vol] 11.6 mmol/L [facility] - Chemistry and C hemistry - challengeon 01-08-2024 Free T4 [Mass/Vol] 0.97 ng/dL 0.76-1.46 [facility] TSH Qn 17.442 m[IU]/L 0.358-3.740 [facility] Laboratory - Microbiology an d Antimicrobial susceptibilityon 01-08-2024 S. agalactiae Org specific cx Ql (Vag fld) Not detected NOT DETECTE [facility] No Panel Informationon 01-08 Troponin I High Sensitivity 40.0 pg/mL 4.0-76.1 [facility] Comment on above: CUT-OFF POINTS HAVE BEEN [...] kaycee cmplx PCR Not detected NOT DETECTE [facility] Bacteroides fragilis (PCR) Not detected NOT DETECTE [facility] Blood Culture Source Blood [facility] Brittany albicans (PCR) Not detected NOT DETECTE [facility] Brittany auris (PCR) Not detected NOT DETECTE [facility] Brittany glabrata (PCR) Not detected NOT DETECTE [facility] Brittany krusei (PCR) Not detected NOT DETECTE [facility] Brittany parapsilosis (PCR) Not detected NOT DETECTE [facility] Brittany tropicalis (PCR) Not detected NOT DETECTE [facility] Crypto neoformans/gattii (PCR)(LAB) Not detected NOT DETECTE [facility] CTX-M ESBL (PCR) NOT APPLICABLE NOT DETECTE [facility] Enterobacter cloacae complex (PCR) Not detected NOT DETECTE [facility] Enterobacterales (PCR) Not detected NOT DETECTE [facility] Enterococcus faecalis PCR Not detected NOT DETECTE [facility] Enterococcus faecium PCR Not detected NOT DETECTE [facility] Escherichia coli Result Not detected NOT DETECTE [facility] Haemophilus influenzae DNA Not detected NOT DETECTE [facility] IMP (blaIMP) Carbap Res Gene (PCR) NOT APPLICABLE NOT DETECTE [facility] Klebsiella aerogenes (PCR) Not detected NOT DETECTE [facility] Klebsiella oxytoca (PCR) Not detected NOT DETECTE [facility] Klebsiella pneumoniae group (PCR) Not detected NOT DETECTE [facility] KPC (blaKPC) Detection (PCR) NOT APPLICABLE NOT DETECTE [facility] Listeria monocytogenes (PCR) Not detected NOT DETECTE [facility] MCR-1 Resistance Gene NOT APPLICABLE NOT DETECT E [facility] mecA/C & MREJ Antimicrob Resist Gen NOT APPLICABLE NOT DETECTE [facility] mecA/C-Methicillin Resistance Gene NOT APPLICABLE NOT DETECTE [facility] NDM (blaNDM) Detection (PCR) NOT APPLICABLE NOT DETECTE [facility] Neisseria meningitidis (PCR) Not detected NOT DETECTE [facility] Proteus species (PCR) Not detected NOT DETECTE [facility] Pseudomonas aeruginosa (PCR) Not detected NOT DETECTE [facility] Salmonella spp. (PCR) Not detected NOT DETECTE [facility] Serratia marcescens (PCR) Not detected NOT DETECTE [facility] Staphylococcus aureus (PCR)(LAB) Not detected NOT DETECTE [facility] Staphylococcus epidermidis (PCR) Not detected NOT DETECTE [facility] Staphylococcus lugdunensis (TEM-PCR Not detected NOT DETECTE [facility] Staphylococcus species (PCR) Not detected NOT DETECTE [facility] Stenotroph. maltophilia (PCR) Not detected NOT DETECTE [facility] Streptococcus pneumoniae (PCR) Not detected NOT DETECTE [facility] Streptococcus pyogenes (PCR)(LAB) Not detected NOT DETECTE [facility] Streptococcus species (PCR) Not detected NOT DETECTE [facility] Syn OXA-48-like Carb Res Gene (PCR) NOT APPLICABLE NOT DETECTE [facility] Deion/B-Vancomycin Resistance Genes NOT APPLICABLE NOT DETECTE [facility] VIM (blaVIM) Carbap Res Gene (PCR) NOT APPLICABLE NOT DETECTE [facility] No Panel InformationOrdered By: Timo Francis on 01-08-2024 Blood Culture 2 [facility] Blood Culture 1 [facility] Office Visiton 01-01-2024 Follow-up visit [id number] Samson Kelley 1935 M Date Provider Department Center 01/01/2024 Arielle6-MARGARITA HERNANDEZ CARD [facility] No family history on file Level of Service:19385 [place] OFFICE/OUTPATIENT ESTABLISHED MOD MDM 30 MIN Normal [facility] Ambulatory Visit Summaryon 1 Ambulatory Visit Summary SAMSON KELLEY :1935 Visit Date:09/21/2022 Ambulatory Visit Instructions Your Diagnosis Urge incontinence History of prostate cancer Tests Performed Urnls Dip Stick Auto w/o Microscopy POC 88529 Your Care Team Attending Physician - MARYBETH [...] Only if needed Where: [address] [place] [address] [phone] Medications What How Much When Instructions Unchanged oxybutynin (oxybutynin 5 mg ER Tab) 1 Tablets By Mouth Every day Pickup at [facility] Unchanged ascorbic acid (Vitamin C) Every [...] physician if questions or concerns Pharmacy Information [id number]: [address] [place], [place] [phone] Test Results Urnls Dip Stick Auto w/o Microscopy POC 74082 (09/21/2022) Bilirubin Urine Dipstick - Negative Blood Urine Dipstick - Negative Glucose Urine Dipstick - Negative Ketones Urine Dipstick - Negative Leukocytes Urine Dipstick - Negative Nitrite Urine Dipstick - Negative Protein Urine Dipstick - Negative Specific Brady Urine Dipstick - 1.015 Urine Appearance Urine [...] hematuria History of prostate cancer Hyperlipidemia Hypertension [facility] current use of antithrombotics/anti platelets Post-void dribbling [...] Are older than age 65. ? Are -German. ? Are obese. ? Have a family [...] (more content not included)... Normal [facility] Ambulatory Visit Summary WARREN SAMSON Trivedi :1935 Visit Date:09/21/2022 Ambulatory Visit Instructions Your Diagnosis Urge incontinence History of prostate cancer Tests Performed Urnls Dip Stick Auto w/o Microscopy POC 64139 Your Care Team Attending Physician - MARYBETH [...] MERCHANT When: Only if needed Where: [address] [facility] [place] [address] [phone] Medications What How Much When Instructions Unchanged [...] Urnls Dip Stick Auto w/o Microscopy POC 56716 (09/21/2022) Bilirubin Urine Dipstick - Negative Blood Urine Dipstick - Negative Glucose Urine Dipstick - Negative Ketones Urine Dipstick - Negative Leukocytes Urine Dipstick - Negative Nitrite Urine Dipstick - Negative Protein Urine Dipstick - Negative Specific Brady Urine Dipstick - 1.015 Urine Appearance Urine [...] hematuria History of prostate cancer Hyperlipidemia Hypertension [facility] current use of antithrombotics/anti platelets Post-void dribbling [...] Are older than age 65. ? Are -German. ? Are obese. ? Have a family [...] (more content not included)... Normal [facility] Patient Educationon 09-21-20 Patient Education [...] Are older than age 65. ? Are -German. ? Are obese. ? Have a family [...] Follow these instructions at home: ? Take [id number] and prescription medicines only as told by [...] (more content not included)... Normal [facility] Urology Office/Clinic Noteon 09-21-2022 Urology [...] MARYBETH STANLEY PA-C, URL Only if needed [address] [place] [address] [phone] Additional Instructions: Patient Education Prostate Cancer IRebecca personally scribed for Marybeth Stanley PA-C on 09/21/2022 12:37:29. . Documentation recorded by the migdaliaibjose Mares accurately reflects the services(s) I performed and decisions made by me. Authenticated by Marybeth Stanley PA-C on 09/21/2022 12:42:06. 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 Normal [facility] Comment on above: Result Comment: Elec tronically Signed By: KENNETH SHEPARD, MARYBETH Trivedi\.br\Date and Time Signed: 09/21/22 13:18 EDT CBC AUTO DIFFon 09-06-2022 BASO # 0.0 103/ul Normal 0.0-0.1 [facility] Comment on above: Performed By: #### C BC #### [facility] [address] [place] [address] Dr. Kirk García Basophils/100 WBC (Bld) 0.5 % Normal 0.2-2.0 [facility] Comment on above: Performed By: #### C BC #### [facility] [address] [address] [address] Kirk García EO # 0.1 103/ul Normal 0.0-0.7 [facility] Comment on above: Performed By: #### C BC #### [facility] [address] [place] [address] Dr. iKrk García Eosinophils/100 WBC (Bld) 1.2 % Normal 0.9-7.0 [facility] Comment on above: Performed By: #### C BC #### [facility] [address] [place] [address] Dr. Kirk García Erythrocyte distribution width (RBC) [Ratio] 14.2 % Normal 11.0-15.0 [facility] Comment on above: Performed By: #### C BC #### [facility] [address] [place] [address] Dr. Kirk García Hematocrit (Bld) [Volume fraction] 35.6 % Critically low 42.0-54.0 [facility] Comment on above: Performed By: #### C BC #### [facility] [address] [address] [address] Kirk García Hemoglobin (Bld) [Mass/Vol] 11.7 g/dL Critically low 14.0-18.0 [facility] Comment on above: Performed By: #### C BC #### [facility] [address] [address] [address] Kirk García IG # 0.04 10e3/ul Critically high 0.00-0.03 [facility] Comment on above: Performed By: #### C BC #### [facility] [address] [address] [address] Kirk García IG % 0.6 % Critically high 0.0-0.5 [facility] Comment on above: Performed By: #### C BC #### [facility] [address] [address] [address] Kirk García LYMPH # 1.7 103/ul Normal 1.2-3.8 [facility] Comment on above: Performed By: #### C BC #### [facility] [address] [address] [address] Kirk García Lymphocytes/100 WBC (Bld) 25.7 % Normal 20.5-60.0 [facility] Comment on above: Performed By: #### C BC #### [facility] [address] [address] [address] Kirk García MANUAL DIFF REQ NO Normal [facility] Comment on above: Performed By: #### C BC #### [facility] [address] [address] [address] Kirk García MCH (RBC) [Entitic mass] 34.1 pg Critically high 25.9-34.0 [facility] Comment on above: Performed By: #### C BC #### [facility] [address] [address] [address] Kirk García MCHC (RBC) [Mass/Vol] 32.9 g/dL Normal 29.9-35.2 [facility] Comment on above: Performed By: #### C BC #### [facility] [address] [address] [address] Kirk García MCV (RBC) [Entitic vol] 103.8 fL Critically high 80.0-94.0 [facility] Comment on above: Performed By: #### C BC #### [facility] [address] [place] [address] Dr. Kirk García MONO # 1.1 103/ul Critically high 0.3-0.[address] [facility] Comment on above: Performed By: #### C BC #### [facility] [address] [place] [address] Dr. Kirk García Monocytes/100 WBC (Bld) 17.7 % Critically high 1.7-12.0 [facility] Comment on above: Performed By: #### C BC #### [facility] [address] [place] [address] Dr. Kirk García NEUT # 3.5 103/ul Normal 1.4-6.5 [facility] Comment on above: Performed By: #### C BC #### [facility] [address] [place] [address] Dr. Kirk García Neutrophils/100 WBC (Bld) 54.3 % Normal 43.0-75.0 [facility] Comment on above: Performed By: #### C BC #### [facility] [address] [place] [address] Dr. Kirk García Platelet mean volume (Bld) [Entitic vol] 10.1 fL Normal 9.5-13.5 [facility] Comment on above: Performed By: #### C BC #### [facility] [address] [place] [address] Dr. Kirk García PLT 153 103/ul Normal 150-450 [facility] Comment on above: Performed By: #### C BC #### [facility] [address] [place] [address] Dr. Kirk García RBC 3.43 106/ul Critically low 4.70-6.[address] [facility] Comment on above: Performed By: #### C BC #### [facility] [address] [address] [address] Kirk García WBC 6.5 103/ul Normal 4.0-11.0 [facility] Comment on above: Performed By: #### C BC #### [facility] [address] [address] [address] Kirk García PROF CHEM 8 (BAS METB)on Anion gap [Moles/Vol] 10.8 mmol/L Normal [facility] Comment on above: Performed By: #### B MP #### [facility] [address] [address] [address] Kirk García Calcium [Mass/Vol] 9.2 mg/dL Normal 8.5-10.1 [facility] Comment on above: Performed By: #### B MP #### [facility] [address] [place] [address] Dr. Kirk García Chloride [Moles/Vol] 101 mmol/L Normal 98-107 [facility] Comment on above: Performed By: #### B MP #### [facility] [address] [place] [address] Dr. Kirk García CO2 [Moles/Vol] 30.9 mmol/L Normal 21.0-32.[address] [facility] Comment on above: Performed By: #### B MP #### [facility] [address] [place] [address] Dr. Kirk García Creatinine [Mass/Vol] 1.54 mg/dL Critically high 0.70-1.30 [facility] Comment on above: Performed By: #### B MP #### [facility] [address] [place] [address] Dr. Kirk García EGFR-AF BELIZEAN 52 mL/min/1.73m2 Critically low >=60 [facility] Comment on above: Performed By: #### B MP #### [facility] [address] [place] [address] Dr. Kirk García EGFR-NON AF BELIZEAN 43 mL/min/1.73m2 Critically low >=60 [facility] Comment on above: Performed By: #### B MP #### [facility] [address] [address] [address] Kirk García Glucose [Mass/Vol] 106 mg/dL Normal 74-106 [facility] Comment on above: Performed By: #### B MP #### [facility] [address] [address] [address] Kirk García Potassium [Moles/Vol] 4.7 mmol/L Normal 3.5-5.1 [facility] Comment on above: Performed By: #### B MP #### [facility] [address] [address] [address] Kirk García Sodium [Moles/Vol] 138 mmol/L Normal 136-145 [facility] Comment on above: Performed By: #### B MP #### [facility] [address] [address] [address] Kirk García Urea nitrogen [Mass/Vol] 28.0 mg/dL Critically high 7.0-18.0 [facility] Comment on above: Performed By: #### B MP #### [facility] [address] [address] [address] Kirk García Urea nitrogen/Creatinine [Mass ratio] 18.2 mg/mg Normal [facility] Comment on above: Performed By: #### B MP #### [facility] [address] [address] [address] Kirk García CBC W MANUAL DIFFon 08-15-20 ATYPICAL LYMPH # 1.62 103/ul Normal [facility] Comment on above: Performed By: #### U MICRO, ERUR #### [facility] [address] [address] [address] Kirk García ATYPICAL LYMPH % 12 % Normal [facility] Comment on above: Performed By: #### U MICRO, ERUR #### [facility] [address] [address] [address] Kirk García BAND # 0.1 103/ul Normal 0.0-0.3 [facility] Comment on above: Performed By: #### U MICRO, ERUR #### [facility] [address] [address] [address] Kirk García BAND % 1 % Normal 0-5 [facility] Comment on above: Performed By: #### U MICRO, ERUR #### [facility] [address] [place] [address] Dr. Kirk García BASOM # 0.14 103/ul Critically high 0.00-0.10 [facility] Comment on above: Performed By: #### U MICRO, ERUR #### [facility] [address] [place] [address] Dr. Kirk García BASOM % 1.0 % Normal 0.2-2.0 [facility] Comment on above: Performed By: #### U MICRO, ERUR #### [facility] [address] [place] [address] Dr. Kirk García BLAST # Normal [facility] Comment on above: Performed By: #### U MICRO, ERUR #### [facility] [address] [place] [address] Dr. Kirk García BLAST % Normal [facility] Comment on above: Performed By: #### U MICRO, ERUR #### [facility] [address] [place] [address] Dr. Kirk García CORRECTED WBC Normal 4.0-11.0 [facility] Comment on above: Performed By: #### U MICRO, ERUR #### [facility] [address] [place] [address] Dr. Kirk García EOS # 0.14 103/ul Normal 0.00-0.70 [facility] Comment on above: Performed By: #### U MICRO, ERUR #### [facility] [address] [place] [address] Dr. Kirk García EOS% 1.0 % Normal 0.9-7.0 [facility] Comment on above: Performed By: #### U MICRO, ERUR #### [facility] [address] [place] [address] Dr. Kirk García HCT 40.7 % Critically low 42.0-54.0 [facility] Comment on above: Performed By: #### U MICRO, ERUR #### [facility] [address] [address] [address] Kirk García HGB 13.4 g/dl Critically low 14.0-18.0 [facility] Comment on above: Performed By: #### U MICRO, ERUR #### [facility] [address] [address] [address] Kirk García LYMPHM # 0.54 103/ul Critically low 1.20-3.80 [facility] Comment on above: Performed By: #### U MICRO, ERUR #### [facility] [address] [address] [address] Kirk García LYMPHM% 4.0 % Critically low 20.5-60.0 [facility] Comment on above: Performed By: #### U MICRO, ERUR #### [facility] [address] [place] [address] Dr. Kirk García MCH 34.2 pg Critically high 25.9-34.0 [facility] Comment on above: Performed By: #### U MICRO, ERUR #### [facility] [address] [address] [address] Kirk García MCHC 32.9 g/dl Normal 29.9-35.2 [facility] Comment on above: Performed By: #### U MICRO, ERUR #### [facility] [address] [address] [address] Kirk García MCV 103.8 fL Critically high 80.0-94.0 [facility] Comment on above: Performed By: #### U MICRO, ERUR #### [facility] [address] [address] [address] Kirk García METAMYELOCYTE # Normal [facility] Comment on above: Performed By: #### U MICRO, ERUR #### [facility] [address] [address] [address] Kirk García METAMYELOCYTE % Normal [facility] Comment on above: Performed By: #### U MICRO, ERUR #### [facility] [address] [address] [address] Kirk García MONOM# 1.08 103/ul Critically high 0.30-0.[address] [facility] Comment on above: Performed By: #### U MICRO, ERUR #### [facility] [address] [address] [address] Kirk García MONOM% 8.0 % Normal 1.7-12.0 [facility] Comment on above: Performed By: #### U MICRO, ERUR #### [facility] [address] [address] [address] Kirk García MPV 10.7 fL Normal 9.5-13.5 [facility] Comment on above: Performed By: #### U MICRO, ERUR #### [facility] [address] [address] [address] Kirk García MYELOCYTE # Normal [facility] Comment on above: Performed By: #### U MICRO, ERUR #### [facility] [address] [address] [address] Kirk García MYELOCYTE % Normal [facility] Comment on above: Performed By: #### U MICRO, ERUR #### [facility] [address] [address] [address] Kirk García NRBC Normal [facility] Comment on above: Performed By: #### U MICRO, ERUR #### [facility] [address] [address] [address] Kirk García PLT 140 103/ul Critically low 150-450 [facility] Comment on above: Performed By: #### U MICRO, ERUR #### [facility] [address] [address] [address] Kirk García RBC 3.92 106/ul Critically low 4.70-6.[address] [facility] Comment on above: Performed By: #### U MICRO, ERUR #### [facility] [address] [address] [address] Kirk García RDW 14.0 % Normal 11.0-15.0 [facility] Comment on above: Performed By: #### U MICRO, ERUR #### [facility] [address] [address] [address] Kirk García SEG # 9.86 103/ul Critically high 1.40-6.[address] [facility] Comment on above: Performed By: #### U MICRO, ERUR #### [facility] [address] [address] [address] Kirk García SEG % 73.0 % Normal 43.0-75.0 [facility] Comment on above: Performed By: #### U MICRO, ERUR #### [facility] [address] [address] [address] Kirk García TOXIC GRANULATION 2+ Normal [facility] Comment on above: Performed By: #### U MICRO, ERUR #### [facility] [address] [address] [address] Kirk García WBC 13.5 103/ul Critically high 4.0-11.[address] [facility] Comment on above: Performed By: #### U MICRO, ERUR #### [facility] [address] [address] [address] Kirk García PROF 14(COMP METB)on 022 Albumin [Mass/Vol] 3.0 g/dL Critically low 3.4-5.0 Th [facility] Comment on above: Performed By: #### C MP #### [facility] [address] [place] [address] Dr. Kirk García Albumin/Globulin [Mass ratio] 0.8 {ratio} Normal [facility] Comment on above: Performed By: #### C MP #### [facility] [address] [place] [address] Dr. Kirk García ALP [Catalytic activity/Vol] 81 U/L Normal 46-116 [facility] Comment on above: Performed By: #### C MP #### [facility] [address] [place] [address] Dr. Kirk García ALT [Catalytic activity/Vol] 50 U/L Normal 16-63 [facility] Comment on above: Performed By: #### C MP #### [facility] [address] [place] [address] Dr. Kirk García Anion gap [Moles/Vol] 8.2 mmol/L Normal [facility] Comment on above: Performed By: #### C MP #### [facility] [address] [address] [address] Kirk García AST [Catalytic activity/Vol] 14 U/L Critically low 15-37 [facility] Comment on above: Performed By: #### C MP #### [facility] [address] [address] [address] Kirk García Bilirubin [Mass/Vol] 0.9 mg/dL Normal 0.2-1.0 [facility] Comment on above: Performed By: #### C MP #### [facility] [address] [address] [address] Kirk García Calcium [Mass/Vol] 9.3 mg/dL Normal 8.5-10.1 [facility] Comment on above: Performed By: #### C MP #### [facility] [address] [address] [address] Kirk García Chloride [Moles/Vol] 100 mmol/L Normal 98-107 [facility] Comment on above: Performed By: #### C MP #### [facility] [address] [address] [address] Kirk García CO2 [Moles/Vol] 33.1 mmol/L Critically high 21.0-32.0 [facility] Comment on above: Performed By: #### C MP #### [facility] [address] [address] [address] Kirk García Creatinine [Mass/Vol] 1.56 mg/dL Critically high 0.70-1.30 [facility] Comment on above: Performed By: #### C MP #### [facility] [address] [address] [address] Kirk García EGFR-AF BELIZEAN 51 mL/min/1.73m2 Critically low >=60 [facility] Comment on above: Performed By: #### C MP #### [facility] [address] [address] [address] Kirk García EGFR-NON AF BELIZEAN 42 mL/min/1.73m2 Critically low >=60 [facility] Comment on above: Performed By: #### C MP #### [facility] [address] [address] [address] Kirk García Globulin (S) [Mass/Vol] 3.7 g/dL Normal [facility] Comment on above: Performed By: #### C MP #### [facility] [address] [address] [address] Kirk García Glucose [Mass/Vol] 107 mg/dL Critically high 74-106 [facility] Comment on above: Performed By: #### C MP #### [facility] [address] [address] [address] Kirk García Potassium [Moles/Vol] 5.3 mmol/L Critically high 3.5-5.1 [facility] Comment on above: Performed By: #### C MP #### [facility] [address] [address] [address] Kirk García Protein [Mass/Vol] 6.7 g/dL Normal 6.4-8.2 [facility] Comment on above: Performed By: #### C MP #### [facility] [address] [address] [address] Kirk García Sodium [Moles/Vol] 136 mmol/L Normal 136-145 [facility] Comment on above: Performed By: #### C MP #### [facility] [address] [address] [address] Kirk García Urea nitrogen [Mass/Vol] 50.0 mg/dL Critically high 7.0-18.0 [facility] Comment on above: Performed By: #### C MP #### [facility] [address] [address] [address] Kirk García Urea nitrogen/Creatinine [Mass ratio] 32.1 mg/mg Normal [facility] Comment on above: Performed By: #### C MP #### [facility] [address] [address] [address] Kirk García CULTURE URINEon 08-14-2022 CULTURE URINE Culture Observations: NO GROWTH. Normal [facility] Comment on above: Performed By: #### U MICRO, ERUR #### [facility] [address] [address] [address] Kirk García ER URINE PROFILEon 2 Bilirubin Ql (U) Negative Normal NEGATIVE [facility] Comment on above: Performed By: #### U MICRO, ERUR #### [facility] [address] [address] [address] Kirk García Clarity (U) CLEAR Normal CLEAR [facility] Comment on above: Performed By: #### U MICRO, ERUR #### [facility] [address] [address] [address] Kirk García Color (U) ORANGE Abnormal YELLOW [facility] Comment on above: Performed By: #### U MICRO, ERUR #### [facility] [address] [place] [address] Dr. Kirk GRUBBS A micrscopic examination will be performed if indicated. Normal [facility] Comment on above: Performed By: #### U MICRO, ERUR #### [facility] [address] [address] [address] Kirk García Glucose Ql (U) Negative Normal NEGATIVE [facility] Comment on above: Performed By: #### U MICRO, ERUR #### [facility] [address] [place] [address] Dr. Kirk García Hemoglobin Ql (U) LARGE Abnormal NEGATIVE [facility] Comment on above: Performed By: #### U MICRO, ERUR #### [facility] [address] [address] [address] Kirk aGrcía Ketones Ql (U) TRACE Abnormal NEGATIVE [facility] Comment on above: Performed By: #### U MICRO, ERUR #### [facility] [address] [address] [address] Kirk García LEUKOCYTES MODERATE Abnormal NEGATIVE [facility] Comment on above: Performed By: #### U MICRO, ERUR #### [facility] [address] [address] [address] Kirk García Nitrite Ql (U) Negative Normal NEGATIVE [facility] Comment on above: Performed By: #### U MICRO, ERUR #### [facility] [address] [place] [address] Dr. Kirk García pH (U) 5.5 [pH] Normal 5-9 [facility] Comment on above: Performed By: #### U MICRO, ERUR #### [facility] [address] [place] [address] Dr. Kirk García Protein (U) [Mass/Vol] 100 mg/dL Abnormal NEGAT DANYELL/ TRACE [facility] Comment on above: Performed By: #### U MICRO, ERUR #### [facility] [address] [place] [address] Dr. Kirk García SPEC GRAVITY 1.025 Normal 1.005-<=1.02 5 [facility] Comment on above: Performed By: #### U MICRO, ERUR #### [facility] [address] [place] [address] Dr. Kirk García UR MICRO IND INDICATED Normal [facility] Comment on above: Performed By: #### U MICRO, ERUR #### [facility] [address] [place] [address] Dr. Kirk García Urobilinogen Qn (U) 1.0 {Ryan'U}/dL Normal 0.2 - 1. 0 [facility] Comment on above: Performed By: #### U MICRO, ERUR #### [facility] [address] [place] [address] Dr. Kirk García URINE MICROSCOPIC ONLYon BACTERIA SMALL Abnormal NONE SEEN [facility] Comment on above: Performed By: #### U MICRO, ERUR #### [facility] [address] [place] [address] Dr. Kirk García Bacteria identified Cx Nom (U) INDICATED Normal [facility] Comment on above: Performed By: #### U MICRO, ERUR #### [facility] [address] [place] [address] Dr. Kirk García CAST NONE SEEN Normal NONE SEEN [facility] Comment on above: Performed By: #### U MICRO, ERUR #### [facility] [address] [address] [address] Kirk García Crystals LM Nom (Urine sed) NONE SEEN Normal NONE SEEN [facility] Comment on above: Performed By: #### U MICRO, ERUR #### [facility] [address] [address] [address] Kirk García Epithelial cells LM Ql (Urine sed) RARE Normal NONE SEEN /RARE [facility] Comment on above: Performed By: #### U MICRO, ERUR #### [facility] [address] [address] [address] Kirk García MUCOUS NONE SEEN Normal NONE SEEN [facility] Comment on above: Performed By: #### U MICRO, ERUR #### [facility] [address] [address] [address] Kirk García RBC 75-100 Abnormal 0-2 [facility] Comment on above: Performed By: #### U MICRO, ERUR #### [facility] [address] [address] [address] Kirk García WBC 50-75 Abnormal NONE SEEN [facility] Comment on above: Performed By: #### U MICRO, ERUR #### [facility] [address] [address] [address] Kirk García XR KNEE WILBER 4V [...] ANA DALAL Date: 2022-08-14 21:09 Normal [facility] CBC W MANUAL DIFFon 08-04-20 22 ATYPICAL LYMPH # Normal [facility] Comment on above: Performed By: #### C BCMAN #### [facility] [address] [place] [address] Dr. Kirk García ATYPICAL LYMPH % Normal [facility] Comment on above: Performed By: #### C BCMAN #### [facility] [address] [place] [address] Dr. Kirk García BAND # 0.0 103/ul Normal 0.0-0.3 [facility] Comment on above: Performed By: #### C BCMAN #### [facility] [address] [place] [address] Dr. Kirk García BAND % 1 % Normal 0-5 [facility] Comment on above: Performed By: #### C BCMAN #### [facility] [address] [place] [address] Dr. Kirk García BASOM # 0.00 103/ul Normal 0.00-0.10 [facility] Comment on above: Performed By: #### C BCMAN #### [facility] [address] [place] [address] Dr. Kirk García BASOM % 0.0 % Critically low 0.2-2.0 [facility] Comment on above: Performed By: #### C BCLEILA #### [facility] [address] [place] [address] Dr. Kirk García BLAST # Normal [facility] Comment on above: Performed By: #### C CHRISTOPHER #### [facility] [address] [place] [address] Dr. Kirk García BLAST % Normal [facility] Comment on above: Performed By: #### C BCLEILA #### [facility] [address] [place] [address] Dr. Kirk García CORRECTED WBC Normal 4.0-11.0 [facility] Comment on above: Performed By: #### C BCMAN #### [facility] [address] [place] [address] Dr. Kirk García EOS # 0.00 103/ul Normal 0.00-0.70 [facility] Comment on above: Performed By: #### C BCLEILA #### [facility] [address] [place] [address] Dr. Kirk García EOS% 0.0 % Critically low 0.9-7.0 [facility] Comment on above: Performed By: #### C CHRISTOPHER #### [facility] [address] [address] [address] Kirk García HCT 31.0 % Critically low 42.0-54.0 [facility] Comment on above: Performed By: #### C CHRISTOPHER #### [facility] [address] [address] [address] Kirk García HGB 10.5 g/dl Critically low 14.0-18.0 [facility] Comment on above: Performed By: #### C CHRISTOPHER #### [facility] [address] [address] [address] Kirk García LYMPHM # 0.31 103/ul Critically low 1.20-3.80 [facility] Comment on above: Performed By: #### C CHRISTOPHER #### [facility] [address] [address] [address] Kirk García LYMPHM% 11.0 % Critically low 20.5-60.0 [facility] Comment on above: Performed By: #### C CHRISTOPHER #### [facility] [address] [address] [address] Kirk García MCH 34.2 pg Critically high 25.9-34.0 [facility] Comment on above: Performed By: #### C CHRISTOPHER #### [facility] [address] [address] [address] Kirk García MCHC 33.9 g/dl Normal 29.9-35.2 [facility] Comment on above: Performed By: #### C CHRISTOPHER #### [facility] [address] [address] [address] Kirk García MCV 101.0 fL Critically high 80.0-94.0 [facility] Comment on above: Performed By: #### C CHRISTOPHER #### [facility] [address] [address] [address] Kirk García METAMYELOCYTE # 0.1 103/ul Normal [facility] Comment on above: Performed By: #### C CHRISTOPHER #### [facility] [address] [address] [address] Kirk García METAMYELOCYTE % 2 % Normal [facility] Comment on above: Performed By: #### C CHRISTOPHER #### [facility] [address] [address] [address] Kirk García MONOM# 0.03 103/ul Critically low 0.30-0.[address] [facility] Comment on above: Performed By: #### C CHRISTOPHER #### [facility] [address] [address] [address] Kirk García MONOM% 1.0 % Critically low 1.7-12.0 [facility] Comment on above: Performed By: #### C CHRISTOPHER #### [facility] [address] [place] [address] Dr. Kirk García MPV 10.7 fL Normal 9.5-13.5 [facility] Comment on above: Performed By: #### C CHRISTOPHER #### [facility] [address] [place] [address] Dr. Kirk García MYELOCYTE # 0.0 103/ul Normal [facility] Comment on above: Performed By: #### C CHRISTOPHER #### [facility] [address] [place] [address] Dr. Kirk García MYELOCYTE % 1 % Normal [facility] Comment on above: Performed By: #### C CHRISTOPHER #### [facility] [address] [place] [address] Dr. Kirk García NRBC Normal [facility] Comment on above: Performed By: #### C CHRISTOPHER #### [facility] [address] [place] [address] Dr. Kirk García PLT 84 103/ul Critically low 150-450 [facility] Comment on above: Performed By: #### C CHRISTOPHER #### [facility] [address] [place] [address] Dr. Kirk García RBC 3.07 106/ul Critically low 4.70-6.[address] [facility] Comment on above: Performed By: #### C BCMAN #### [facility] [address] [address] [address] Kirk García RDW 13.3 % Normal 11.0-15.0 [facility] Comment on above: Performed By: #### C TRISHMAN #### [facility] [address] [address] [address] Kirk García SEG # 2.35 103/ul Normal 1.40-6.50 [facility] Comment on above: Performed By: #### C CHRISTOPHER #### [facility] [address] [place] [address] Dr. Kirk García SEG % 84.0 % Critically high 43.0-75.0 [facility] Comment on above: Performed By: #### C CHRISTOPHER #### [facility] [address] [place] [address] Dr. Kirk García WBC 2.8 103/ul Critically low 4.0-11.0 [facility] Comment on above: Performed By: #### C CHRISTOPHER #### [facility] [address] [place] [address] Dr. Kirk García PROF CHEM 8 (BAS METB)on Anion gap [Moles/Vol] 9.9 mmol/L Normal [facility] Comment on above: Performed By: #### U MICRO, ERUR #### [facility] [address] [place] [address] Dr. Kirk García Calcium [Mass/Vol] 7.4 mg/dL Critically low 8.5-10.1 [facility] Comment on above: Performed By: #### U MICRO, ERUR #### [facility] [address] [place] [address] Dr. Kirk García Chloride [Moles/Vol] 100 mmol/L Normal 98-107 [facility] Comment on above: Performed By: #### U MICRO, ERUR #### [facility] [address] [place] [address] Dr. Kirk García CO2 [Moles/Vol] 23.8 mmol/L Normal 21.0-32.[address] [facility] Comment on above: Performed By: #### U MICRO, ERUR #### [facility] [address] [place] [address] Dr. Kirk García Creatinine [Mass/Vol] 1.43 mg/dL Critically high 0.70-1.30 [facility] Comment on above: Performed By: #### U MICRO, ERUR #### [facility] [address] [place] [address] Dr. Kirk García EGFR-AF BELIZEAN 57 mL/min/1.73m2 Critically low >=60 [facility] Comment on above: Performed By: #### U MICRO, ERUR #### [facility] [address] [place] [address] Dr. Kirk García EGFR-NON AF BELIZEAN 47 mL/min/1.73m2 Critically low >=60 [facility] Comment on above: Performed By: #### U MICRO, ERUR #### [facility] [address] [place] [address] Dr. Kirk García Glucose [Mass/Vol] 148 mg/dL Critically high 74-[address] [facility] Comment on above: Performed By: #### U MICRO, ERUR #### [facility] [address] [place] [address] Dr. Kirk García Potassium [Moles/Vol] 4.7 mmol/L Normal 3.5-5.1 [facility] Comment on above: Performed By: #### U MICRO, ERUR #### [facility] [address] [place] [address] Dr. Kirk García Sodium [Moles/Vol] 129 mmol/L Critically low 136-145 Th [facility] Comment on above: Performed By: #### U MICRO, ERUR #### [facility] [address] [place] [address] Dr. Kirk García Urea nitrogen [Mass/Vol] 42.0 mg/dL Critically high 7.0-18.0 [facility] Comment on above: Performed By: #### U MICRO, ERUR #### [facility] [address] [place] [address] Dr. Kirk García Urea nitrogen/Creatinine [Mass ratio] 29.4 mg/mg Normal [facility] Comment on above: Performed By: #### U MICRO, ERUR #### [facility] [address] [place] [address] Dr. Kirk García CBC AUTO DIFFon 08-03-2022 BASO # 0.0 103/ul Normal 0.0-0.1 [facility] Comment on above: Performed By: #### C BC #### [facility] [address] [place] [address] Dr. Kirk García Basophils/100 WBC (Bld) 0.0 % Critically low 0.2-2.0 [facility] Comment on above: Performed By: #### C BC #### [facility] [address] [place] [address] Dr. Kirk García EO # 0.0 103/ul Normal 0.0-0.7 [facility] Comment on above: Performed By: #### C BC #### [facility] [address] [place] [address] Dr. Kirk García Eosinophils/100 WBC (Bld) 0.2 % Critically low 0.9-7.0 [facility] Comment on above: Performed By: #### C BC #### [facility] [address] [place] [address] Dr. Kirk García Erythrocyte distribution width (RBC) [Ratio] 13.7 % Normal 11.0-15.0 [facility] Comment on above: Performed By: #### C BC #### [facility] [address] [place] [address] Dr. Krik García Hematocrit (Bld) [Volume fraction] 34.3 % Critically low 42.0-54.0 [facility] Comment on above: Performed By: #### C BC #### [facility] [address] [place] [address] Dr. Kirk García Hemoglobin (Bld) [Mass/Vol] 11.8 g/dL Critically low 14.0-18.0 [facility] Comment on above: Performed By: #### C BC #### [facility] [address] [address] [address] Kirk García IG # 0.02 10e3/ul Normal 0.00-0.03 [facility] Comment on above: Performed By: #### C BC #### [facility] [address] [address] [address] Kirk García IG % 0.4 % Normal 0.0-0.5 [facility] Comment on above: Performed By: #### C BC #### [facility] [address] [place] [address] Dr. Kirk García LYMPH # 0.9 103/ul Critically low 1.2-3.8 [facility] Comment on above: Performed By: #### C BC #### [facility] [address] [place] [address] Dr. Kirk García Lymphocytes/100 WBC (Bld) 16.5 % Critically low 20.5-60.0 [facility] Comment on above: Performed By: #### C BC #### [facility] [address] [place] [address] Dr. Kirk García MANUAL DIFF REQ NO Normal [facility] Comment on above: Performed By: #### C BC #### [facility] [address] [place] [address] Dr. Kirk García MCH (RBC) [Entitic mass] 34.4 pg Critically high 25.9-34.0 [facility] Comment on above: Performed By: #### C BC #### [facility] [address] [place] [address] Dr. Kirk García MCHC (RBC) [Mass/Vol] 34.4 g/dL Normal 29.9-35.2 [facility] Comment on above: Performed By: #### C BC #### [facility] [address] [place] [address] Dr. Kirk García MCV (RBC) [Entitic vol] 100.0 fL Critically high 80.0-94.0 [facility] Comment on above: Performed By: #### C BC #### [facility] [address] [address] [address] Kirk García MONO # 1.2 103/ul Critically high 0.3-0.[address] [facility] Comment on above: Performed By: #### C BC #### [facility] [address] [place] [address] Dr. Kirk García Monocytes/100 WBC (Bld) 22.3 % Critically high 1.7-12.0 [facility] Comment on above: Performed By: #### C BC #### [facility] [address] [place] [address] Dr. Kirk García NEUT # 3.4 103/ul Normal 1.4-6.5 [facility] Comment on above: Performed By: #### C BC #### [facility] [address] [place] [address] Dr. Kirk García Neutrophils/100 WBC (Bld) 60.6 % Normal 43.0-75.0 [facility] Comment on above: Performed By: #### C BC #### [facility] [address] [place] [address] Dr. Kirk García Platelet mean volume (Bld) [Entitic vol] 11.6 fL Normal 9.5-13.5 [facility] Comment on above: Performed By: #### C BC #### [facility] [address] [place] [address] Dr. Kirk García PLT 99 103/ul Critically low 150-450 [facility] Comment on above: Performed By: #### C BC #### [facility] [address] [place] [address] Dr. Kirk García RBC 3.43 106/ul Critically low 4.70-6.[address] [facility] Comment on above: Performed By: #### C BC #### [facility] [address] [place] [address] Dr. Kirk García WBC 5.5 103/ul Normal 4.0-11.0 [facility] Comment on above: Performed By: #### C BC #### [facility] [address] [place] [address] Dr. Kirk García CULTURE BLOODon 08-03-2022 Microscopic examination of blood, culture Culture Observations: NO GROWTH AT 5 DAYS. Normal [facility] Comment on above: Performed By: #### U MICRO, ERUR #### [facility] [address] [address] [address] Kirk García Microscopic examination of blood, culture Culture Observations: NO GROWTH AT 5 DAYS. Normal [facility] Comment on above: Performed By: #### U MICRO, ERUR #### [facility] [address] [address] [address] Kirk García Covid-19 PCR (CVDTB)on SARS-CoV-2 (COVID-19) RNA SANAZ+probe Ql (Unsp spec) Detected Critically abnormal NOT DETECTED [facility] Comment on above: Result Comment: This test is not yet approved or cleared by the [place] FDA. When there are no FDA-approved or cleared tests available, and other criteria are met, FDA can make tests available under an emergency access mechanism called an Emergency Use Authorization (EUA). The EUA for this test is supported by the [place] of Health and Human Service's declaration that [...] used). Performed By: #### C VDTBH #### [facility] [address] [place] [address] Dr. Kirk García GROUP A STREP CULTUREon S. pyogenes Ag Ql (Unsp spec) Culture Observations: NEGATIVE FOR GROUP A STREPTOCOCCUS. Normal [facility] Comment on above: Performed By: #### U MICRO, ERUR #### [facility] [address] [place] [address] Dr. Kirk García PROF 14(COMP METB)on 022 Albumin [Mass/Vol] 3.0 g/dL Critically low 3.4-5.0 Th e [facility] Comment on above: Performed By: #### C MP #### [facility] [address] [address] [address] Kirk García Albumin/Globulin [Mass ratio] 0.7 {ratio} Normal [facility] Comment on above: Performed By: #### C MP #### [facility] [address] [address] [address] Kirk García ALP [Catalytic activity/Vol] 76 U/L Normal 46-116 [facility] Comment on above: Performed By: #### C MP #### [facility] [address] [place] [address] Dr. Kirk García ALT [Catalytic activity/Vol] 27 U/L Normal 16-63 [facility] Comment on above: Performed By: #### C MP #### [facility] [address] [place] [address] Dr. Kirk García Anion gap [Moles/Vol] 8.9 mmol/L Normal [facility] Comment on above: Performed By: #### C MP #### [facility] [address] [place] [address] Dr. Kirk García AST [Catalytic activity/Vol] 17 U/L Normal 15-37 [facility] Comment on above: Performed By: #### C MP #### [facility] [address] [place] [address] Dr. Kirk García Bilirubin [Mass/Vol] 1.3 mg/dL Critically high 0.2-1.0 [facility] Comment on above: Performed By: #### C MP #### [facility] [address] [place] [address] Dr. Kirk García Calcium [Mass/Vol] 8.1 mg/dL Critically low 8.5-10.1 Th [facility] Comment on above: Performed By: #### C MP #### [facility] [address] [place] [address] Dr. Kirk García Chloride [Moles/Vol] 94 mmol/L Critically low 98-107 [facility] Comment on above: Performed By: #### C MP #### [facility] [address] [place], [place] [id number] Dr. Kirk García CO2 [Moles/Vol] 27.5 mmol/L Normal 21.0-32.[address] [facility] Comment on above: Performed By: #### C MP #### [facility] [address] [place] [address] Dr. Kirk García Creatinine [Mass/Vol] 1.65 mg/dL Critically high 0.70-1.30 [facility] Comment on above: Performed By: #### C MP #### [facility] [address] [place] [address] Dr. Kirk García EGFR-AF BELIZEAN 48 mL/min/1.73m2 Critically low >=60 [facility] Comment on above: Performed By: #### C MP #### [facility] [address] [place] [address] Dr. Kirk Garcaí EGFR-NON AF BELIZEAN 40 mL/min/1.73m2 Critically low >=60 [facility] Comment on above: Performed By: #### C MP #### [facility] [address] [place] [address] Dr. Kirk García Globulin (S) [Mass/Vol] 4.5 g/dL Normal [facility] Comment on above: Performed By: #### C MP #### [facility] [address] [place] [address] Dr. Kirk García Glucose [Mass/Vol] 118 mg/dL Critically high 74-[address] [facility] Comment on above: Performed By: #### C MP #### [facility] [address] [address] [address] Kirk García Potassium [Moles/Vol] 4.4 mmol/L Normal 3.5-5.1 [facility] Comment on above: Performed By: #### C MP #### [facility] [address] [place] [address] Dr. Kirk García Protein [Mass/Vol] 7.5 g/dL Normal 6.4-8.2 [facility] Comment on above: Performed By: #### C MP #### [facility] [address] [place] [address] Dr. Kirk García Sodium [Moles/Vol] 126 mmol/L Critically low 136-145 Th [facility] Comment on above: Performed By: #### C MP #### [facility] [address] [address] [address] Kirk García Urea nitrogen [Mass/Vol] 36.0 mg/dL Critically high 7.0-18.0 [facility] Comment on above: Performed By: #### C MP #### [facility] [address] [address] [address] Kirk García Urea nitrogen/Creatinine [Mass ratio] 21.8 mg/mg Normal [facility] Comment on above: Performed By: #### C MP #### [facility] [address] [address] [address] Kirk García STREPT SCREENon 08-03-2022 STREP SCREEN A Negative Normal NEGATIVE [facility] Comment on above: Performed By: #### U MICRO, ERUR #### [facility] [address] [place] [address] Dr. Kirk García XR CHEST 1 Von [...] MILAGROS REEDER Date: 2022-08-03 12:55 Normal [facility] CBC AUTO DIFFon 07-08-2022 BASO # 0.0 103/ul Normal 0.0-0.1 [facility] Comment on above: Performed By: #### C BC #### [facility] [address] [address] [address] Kirk García Basophils/100 WBC (Bld) 0.5 % Normal 0.2-2.0 [facility] Comment on above: Performed By: #### C BC #### [facility] [address] [place] [address] Dr. Kirk García EO # 0.1 103/ul Normal 0.0-0.7 [facility] Comment on above: Performed By: #### C BC #### [facility] [address] [place] [address] Dr. Kirk García Eosinophils/100 WBC (Bld) 1.4 % Normal 0.9-7.0 [facility] Comment on above: Performed By: #### C BC #### [facility] [address] [place] [address] Dr. Kirk García Erythrocyte distribution width (RBC) [Ratio] 13.4 % Normal 11.0-15.0 [facility] Comment on above: Performed By: #### C BC #### [facility] [address] [place] [address] Dr. Kirk García Hematocrit (Bld) [Volume fraction] 39.6 % Critically low 42.0-54.0 [facility] Comment on above: Performed By: #### C BC #### [facility] [address] [place] [address] Dr. Kirk García Hemoglobin (Bld) [Mass/Vol] 13.2 g/dL Critically low 14.0-18.0 [facility] Comment on above: Performed By: #### C BC #### [facility] [address] [place] [address] Dr. Kirk García IG # 0.02 10e3/ul Normal 0.00-0.03 [facility] Comment on above: Performed By: #### C BC #### [facility] [address] [place] [address] Dr. Kirk García IG % 0.3 % Normal 0.0-0.5 [facility] Comment on above: Performed By: #### C BC #### [facility] [address] [place] [address] Dr. Kirk García LYMPH # 1.7 103/ul Normal 1.2-3.8 [facility] Comment on above: Performed By: #### C BC #### [facility] [address] [place] [address] Dr. Kirk García Lymphocytes/100 WBC (Bld) 28.7 % Normal 20.5-60.0 [facility] Comment on above: Performed By: #### C BC #### [facility] [address] [place] [address] Dr. Kirk García MANUAL DIFF REQ NO Normal [facility] Comment on above: Performed By: #### C BC #### [facility] [address] [place] [address] Dr. Kirk García MCH (RBC) [Entitic mass] 34.4 pg Critically high 25.9-34.0 [facility] Comment on above: Performed By: #### C BC #### [facility] [address] [place] [address] Dr. Kirk García MCHC (RBC) [Mass/Vol] 33.3 g/dL Normal 29.9-35.2 [facility] Comment on above: Performed By: #### C BC #### [facility] [address] [place] [address] Dr. Kirk García MCV (RBC) [Entitic vol] 103.1 fL Critically high 80.0-94.0 [facility] Comment on above: Performed By: #### C BC #### [facility] [address] [place] [address] Dr. Kirk García MONO # 0.9 103/ul Critically high 0.3-0.8 [facility] Comment on above: Performed By: #### C BC #### [facility] [address] [place] [address] Dr. Kirk García Monocytes/100 WBC (Bld) 15.8 % Critically high 1.7-12.0 [facility] Comment on above: Performed By: #### C BC #### [facility] [address] [place] [address] Dr. Kirk García NEUT # 3.1 103/ul Normal 1.4-6.5 [facility] Comment on above: Performed By: #### C BC #### [facility] [address] [place] [address] Dr. Kirk García Neutrophils/100 WBC (Bld) 53.3 % Normal 43.0-75.0 [facility] Comment on above: Performed By: #### C BC #### [facility] [address] [address] [address] Kirk García Platelet mean volume (Bld) [Entitic vol] 10.6 fL Normal 9.5-13.5 [facility] Comment on above: Performed By: #### C BC #### [facility] [address] [place] [address] Dr. Kirk García PLT 147 103/ul Critically low 150-450 [facility] Comment on above: Performed By: #### C BC #### [facility] [address] [place] [address] Dr. Kirk García RBC 3.84 106/ul Critically low 4.70-6.10 [facility] Comment on above: Performed By: #### C BC #### [facility] [address] [place] [address] Dr. Kirk García WBC 5.9 103/ul Normal 4.0-11.0 [facility] Comment on above: Performed By: #### C BC #### [facility] [address] [place] [address] Dr. Kirk García DIGOXINon 07-08-2022 DIG 1.1 ng/mL Normal 0.9-2.0 [facility] Comment on above: Performed By: #### U MICRO, ERUR #### [facility] [address] [place] [address] Dr. Kirk García PROF CHEM 8 (BAS METB)on Anion gap [Moles/Vol] 13.6 mmol/L Normal [facility] Comment on above: Performed By: #### U MICRO, ERUR #### [facility] [address] [place] [address] Dr. Kirk García Calcium [Mass/Vol] 9.5 mg/dL Normal 8.5-10.1 [facility] Comment on above: Performed By: #### U MICRO, ERUR #### [facility] [address] [address] [address] Kirk García Chloride [Moles/Vol] 97 mmol/L Critically low 98-107 [facility] Comment on above: Performed By: #### U MICRO, ERUR #### [facility] [address] [address] [address] Kirk García CO2 [Moles/Vol] 28.8 mmol/L Normal 21.0-32.0 [facility] Comment on above: Performed By: #### U MICRO, ERUR #### [facility] [address] [place] [address] Dr. Kirk García Creatinine [Mass/Vol] 1.43 mg/dL Critically high 0.70-1.30 [facility] Comment on above: Performed By: #### U MICRO, ERUR #### [facility] [address] [place] [address] Dr. Kirk García EGFR-AF BELIZEAN 57 mL/min/1.73m2 Critically low >=60 [facility] Comment on above: Performed By: #### U MICRO, ERUR #### [facility] [address] [place] [address] Dr. Kirk García EGFR-NON AF BELIZEAN 47 mL/min/1.73m2 Critically low >=60 [facility] Comment on above: Performed By: #### U MICRO, ERUR #### [facility] [address] [place] [address] Dr. Kirk García Glucose [Mass/Vol] 99 mg/dL Normal 74-106 [facility] Comment on above: Performed By: #### U MICRO, ERUR #### [facility] [address] [address] [address] Kirk García Potassium [Moles/Vol] 4.4 mmol/L Normal 3.5-5.1 [facility] Comment on above: Performed By: #### U MICRO, ERUR #### [facility] [address] [address] [address] Kirk García Sodium [Moles/Vol] 135 mmol/L Critically low 136-145 Th [facility] Comment on above: Performed By: #### U MICRO, ERUR #### [facility] [address] [address] [address] Kirk García Urea nitrogen [Mass/Vol] 29.0 mg/dL Critically high 7.0-18.0 [facility] Comment on above: Performed By: #### U MICRO, ERUR #### [facility] [address] [address] [address] Kirk García Urea nitrogen/Creatinine [Mass ratio] 20.3 mg/mg Normal [facility] Comment on above: Performed By: #### U MICRO, ERUR #### [facility] [address] [address] [address] Kirk García Patient Educationon 03-16-20 Patient [...] Are older than age 65. ? Are -German. ? Are obese. ? Have a family [...] Follow these instructions at home: ? Take jnna-wwp-pxnyafi and prescription medicines only as told by [...] (more content not included)... Normal [facility] Urology Office/Clinic Noteon 03-16-2022 Urology [...] E&M of Est. Patient Moderate 30-39 Min 32126 Measure Post Void residual urine and/or bladder capacity by US- non-imaging 33580 Urnls Dip Stick Auto w/o Microscopy POC 52595 2. History of prostate cancer (Z85.46: Personal history of malignant neoplasm of prostate) s/p brachytherapy in 2004. PSA remained very low. pt decided to have PCP do annual monitoring when he saw PRW March 2021. Ordered: E&M of Est. Patient Moderate 30-39 Min 34515 Measure Post Void residual urine and/or bladder capacity by US- non-imaging 10550 Urnls Dip Stick Auto w/o Microscopy POC 36492 Orders: oxybutynin, 5 mg = 1 tab(s), Oral, Daily, # 90 tab(s), Refills(s) 3, Pharmacy: [id number], [id number], cm, 03/16/22 9:10:00 EDT, Height/Length Dosing, 99.3, kg, 03/16/22 9:10:00 EDT, Weight Dosing Follow-up With When Contact Information MARYBETH STANLEY PA-C, URL Within 6 months [address] [place] [address] [facility] (1) Additional Instructions: Patient Education Prostate Cancer 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 Normal [facility] Comment on above: Result Comment: Elec tronically Signed By: MARYBETH STANLEY PA-C\.br\Date and Time Signed: 03/16/22 09:55 EDT Patient Educationon 02-10-20 22 Patient Education Oncology Prostate Cancer The [...] Are older than age 65. ? Are -German. ? Are obese. ? Have a family [...] Follow these instructions at home: ? Take tivm-tnf-nwupabi and prescription medicines only as told by [...] specialis (more content not included)... Normal [facility] Urology Office/Clinic Noteon 01-06-2022 Urology [...] worsen Ordered: Office Visit Level 4 Est 44189 2. History of prostate cancer (Z85.46: Personal history of malignant neoplasm of prostate) s/p brachytherapy in 2004. PSA remained very low. pt decided to have PCP do annual monitoring when he saw PRW at last visit March 2021. Ordered: Office Visit Level 4 Est 66244 Orders: Urnls Dip Stick Auto w/o Microscopy POC 68359 Total time spent reviewing previous notes/results/cardiovascular radiologic technologist al documents, preparing the chart, conducting the encounter with the patient and family, ordering tests/medications, and documenting the encounter was 40 minutes. Follow-up With When Contact Information PRN Additional Instructions: Patient Education Prostate Cancer 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 Cholecystitis Gross hematuria History of prostate cancer Hyperlipidemia Hypertension [facility] current use of antithrombotics/anti platelets Post-void dribbling [...] (more content not included)... Normal [facility] Comment on above: Result Comment: Elec tronically Signed By: KENNETH SHEPARD, MARYBETH Trivedi\.lisa\Date and Time Signed: 01/06/22 16:55 EST [facility] 07-29-2021 [facility] ([place] Interactive) SAMSON KELLEY ([id number]) 1935 M Date Time Provider Department 07/29/21 DALILA BALL During your visit today, we recorded the following information about you: Dalila aBll RN 07/29/2021 10:36 AM Signed Spoke with [...] no Bm by Monday and patients states [place] will help him with that. Encouraged to keep up with water intake especially since no appetite today. Allergies As of Date: 07/29/2021 (No Known Allergies) Date Reviewed: 07/28/2021 Reviewed by: Aracelis Ochoa RN - Fully Assessed Reason for Visit: Director Power - Other [4466] Cmt: post-op Prescriptions as of 07/29/2021 - [...] Encounter Status:Closed by DALILA BALL on 07/29/21 [facility] ANES POSTPROC EVALon 021 ANES POSTPROC EVAL HNO ID: [id number] Author: Ramiro Esquivel MD Service: Anesthesiology Author [...] Surgeons: Jewel Cary III, MD Responsible Provider: aRmiro Esquivel MD Anesthesia Type: general ASA Status: [...] July 28, 2021 TIME: 1:35 PM CSN: [id number] [facility] ANES PRE-OPon 07-28-2021 ANES PRE-OP HNO ID: [id number] Author: Ramiro Esquivel MD Service: Anesthesiology Author [...] 100 mL Vial-Bag (UNASYN) 3 g INTRAVENOUS Cable Lacer to OR - [COMPLETED] acetaminophen 1,000 mg [...] July 28, 2021 TIME: 10:17 AM CSN: [id number] [facility] HISTORY PHYSICALon HISTORY PHYSICAL HNO ID: [id number] Author: Jewel Cary III, MD Service: General [...] DATE: July 28, 2021 TIME: 10:16 AM [facility] OPERATIVE NOon 07-28-2021 OPERATIVE NO HNO ID: [id number] Author: Jewel Cary III, MD Service: General Surgery Author Type: Physician Type: Operative Report Filed: 07/28/2021 11:24 AM Note Text: OPERATIVE REPORT LOG ID: [id number] SURGERY/PROCEDURE DATE: 07/28/2021 INCISION/PROCEDURE START TIME: 10:47 AM INCISION CLOSE/PROCEDURE END TIME: 11:24 AM SURGEON: Jewel Cary III, MD ?? LATH HAND: Monserrat Salazar PA-C? ? OPERATION: Laparoscopic cholecystectomy (08488). ? ANESTHESIA: GETA and 10 mL of [...] July 28, 2021 TIME: 11:22 AM Normal [facility] SURGICAL PATHOLOGYon SURGICAL PATHOLOGY Specimen originated from [facility] Specimen #: [id number] Submitting Physician: JEWEL CARY MD FINAL DIAGNOSIS [...] The mucosa is walker-red, hyperemic, and granular. Talent Acquisition Program Manager sections are submitted as follows: A1 cystic duct margin and wall, A2 fundus. SLE/ch 07/28/2021 Gross examination performed at [facility], [facility] [place] [address] Date of Report: 07/29/2021 Date of Procedure: 07/28/2021 Date of Receipt: 07/28/2021 Submitted by: JEWEL CARY MD Location: [facility] Diagnostic interpretation performed at [facility], [address] [place] [address]. CLIA Number: [id number] Normal [facility] Reference Lab Comment on above: Performed By: #### S #### See report for performing lab information. HISTORY PHYSICALon HISTORY PHYSICAL HNO ID: [id number] Author: Denita Simmons PA-C Service: ? Author Type: Physician Form Setter/Driver Type: HANDP Filed: 07/19/2021 4:18 PM Note [...] in November 2019. He was admitted to [facility] due to Yuni cystitis. Providers at that [...] prolapse - Mitral valve regurgitation - Thrombocytopenia ([facility]) 12/21/2016 - Trauma 11/14/2016 fell on iced stairs and bruised left thigh and scrotum - Tricuspid valve regurgitation PAST SURGICAL HISTORY Procedure Laterality Date - HEART SURGERY HX 11/2016 mitral and tricuspid valve repair - HERNIA REPAIR HX age 20's - PACEMAKER 2006 - PACEMAKER 01/2021 [employer] placed - PAST SURGICAL HISTORY OF [...] fevers. Neuro: No history of TIA's, stroke, BREAKER MECHANIC tumor, impaired sensorium, hemiplegia, paraplegia or quadraplegia. No neurological symptoms or problems. Respiratory: Negative for Asthma, Dyspnea, Tobacco Use, URI < 2 weeks +PND - can rarely trigger cough, but stable, no acute symptoms Cardiovascular: +Pacemaker ([employer]) - A-fib hx, CHB no symptoms +Heart failure - on digoxin, Lasix. Chronic lower extremity edema. +Valve history - s/p Mitral and tricuspid repair 2017 - Dr. Adrianna Geiger - Ra (more content not included)... Normal [facility] CNCOon 07-13-2021 CNCO Letter Text Normal [facility] [place] 07-13-2021 FEDERICON Telephone (GENSAV) SAMSON KELLEY ([id number]) 1935 M Date Time Provider Department 07/13/21 [...] surgeons office by routing message back [facility] PCAT INSTRU[facility], prior to notifying the patient. Marybeth Georgi 07/13/2021 1:53 PM Signed Pt seeing Cardi Dr Adrianna Geiger @ [facility] 216 Will send clearance to this provider Cat Gibbs 07/15/2021 11:03 AM Signed Cari from [place] Dr Geiger's office called and asked to have clearance letter fax to [phone]. Thank you. Marybeth Georgi 07/15/2021 11:21 AM Signed Letter reprinted and faxed to [place] office with confirmation received. Denita Simmons PA-C [...] cancel and reschedule patient. Thank you. Marybeth Godoyn 07/19/2021 3:01 PM Signed Spoke w pt [...] Status:Closed by MARYBETH LAUREANO on 07/13/21 [facility] [place] 07-12-2021 CNPN Telephone (GENSAV) SAMSON KELLEY ([id number]) 1935 M Date Time Provider Department 07/12/21 JEWEL CARY III GENSAAristeo During your visit today, we recorded the following information about you: Marybeth Laureano 07/13/2021 2:08 PM Addendum Cur received Pt needs cardiac clearance Dr Kody Lynn Tele enct sent Spoke w pt he now sees Dr Adrianna Geiegr at [facility]. Letter electronically sent. Marybeth aLureano 07/13/2021 3:25 PM Signed electronic faxed failed printed and sent to verified fax number of [phone]. Confirmed received. Marybeth Laureano 07/19/2021 3:02 PM [...] Encounter Status:Closed by MARYBETH LAUREANO on 07/19/21 [facility] HISTORY PHYSICALon HISTORY PHYSICAL HNO ID: [id number] Author: Jewel Cary III, MD Service: ? [...] for internal providers or letter via the [employer] for external providers. HISTORY: He [...] stored in (more content not included)... Normal [facility] OPERATIVE REPORTon OPERATIVE REPORT NAME: SAMSON KELLEY MR#: [id number] SURGEON: Adrianna Geiger MD DATE OF SURGERY: 02/01/2021 OPERATIVE REPORT PREOPERATIVE DIAGNOSIS: End of life pacemaker pulse generator. POSTOPERATIVE DIAGNOSIS: End of life pacemaker pulse generator. PROCEDURE: Change out of end of life pacemaker pulse generator. DESCRIPTION OF PROCEDURE: weight caller to the OR, he received 1 g [...] inserted. The new pulse generator is a [employer] Accolade MRI safe pacemaker, model #L311 serial #[id number]. The pulse generator was attached to the [...] of the day today. ADRIANNA GEIGER MD [facility]/[id number] E/S: Adrianna Geiger MD 02/08/21 0856 Electronically Signed [facility] PT NAME: WARRENSAMSON MR#: [id number] [address] [place] [address] ACCT: [id number] : [birth year] OPERATIVE REPORT Normal [facility] SURGon 02-01-2021 SURG Normal [facility] Comment on above: Result Comment: RUN DATE: 02/02/21 [facility] LAB *LIVE* PAGE 1RUN TIME: 1351 Specimen InquiryRUN USER: [employer] Name: SAMSON KELLEY : [birth year] Sex:M Attend Dr: Adrianna Geiger MDAcct#: [id number] Unit#: [id number] Status: [facility] Location: ANA MARIA [id number] Received: 02/01/21 Status: PRIYANKA Re#: [id number]#: [id number] Collected: 02/01/[address]: Adrianna Geiger MDTISSUES: A. EXPLANTED HARDWARE MICROSCOPIC EXAM: N/A DIAGNOSIS: EXPLANTED HARDWARE, REMOVAL: - PULSE GENERATOR (GROSS DIAGNOSIS ONLY) Signed Signature on File KT SCHAFER 02/02/21 1351 [facility] Name: SAMSON KELLEY [facility] Hosp Num: [id number] A Ministry of Age / Sex: 85/M [facility] Physician: Adrianna Geiger MD [address] [address] Location: SAME DAY SURGERY END OF REPORT Performed By: #### P SURG ####Test performed at: [address] [address] Vital Signs Date Time Vital Sign Value Performing Clinician Facility 09-19-2024 14:17-0400 Body height 182.88 cm [facility] 09-19-2024 14:17-0400 Body mass index (BMI) [Ratio] 28 kg/m2 [facility] 09-19-2024 14:17-0400 Body temperature 96.9 [degF] [facility] 09-19-2024 14:17-0400 Body weight 93.92 kg [facility] 09-19-2024 14:17-0400 Diastolic blood pressure 60 mm[Hg] [facility] 09-19-2024 14:17-0400 Heart rate 70 /min [facility] 09-19-2024 14:17-0400 Inhaled oxygen flow rate 4 L/min [facility] 09-19-2024 14:17-0400 Respiratory rate 18 /min [facility] 09-19-2024 14:17-0400 SaO2% (BldA) [Mass fraction] 94 % [facility] 09-19-2024 14:17-0400 Systolic blood pressure 98 mm[Hg] [facility] 07-16-2024 11:18-0400 Body height 182.88 cm [facility] 07-16-2024 11:18-0400 Body mass index (BMI) [Ratio] 27.6 kg/m2 [facility] 07-16-2024 11:18-0400 Body weight 92.19 kg [facility] 07-16-2024 11:18-0400 Diastolic blood pressure 64 mm[Hg] [facility] 07-16-2024 11:18-0400 Heart rate 75 /min [facility] 07-16-2024 11:18-0400 Respiratory rate 12 /min [facility] 07-16-2024 11:18-0400 Systolic blood pressure 110 mm[Hg] [facility] 01-16-2024 11:34-0500 Body height 182.88 cm [facility] 01-16-2024 11:34-0500 Body mass index (BMI) [Ratio] 28.5 kg/m2 [facility] 01-16-2024 11:34-0500 Body weight 95.48 kg [facility] 01-16-2024 11:34-0500 Diastolic blood pressure 62 mm[Hg] [facility] 01-16-2024 11:34-0500 Heart rate 82 /min [facility] 01-16-2024 11:34-0500 Respiratory rate 20 /min [facility] 01-16-2024 11:34-0500 Systolic blood pressure 102 mm[Hg] [facility] 12-08-2023 11:30-0500 Body height 182.88 cm [facility] 12-08-2023 11:30-0500 Body weight 94.16 kg [facility] 12-08-2023 11:30-0500 Diastolic blood pressure 74 mm[Hg] [facility] 12-08-2023 11:30-0500 Systolic blood pressure 115 mm[Hg] [facility] 11-22-2023 10:00-0500 Body height 182.88 cm Timo Ball Other [facility] 11-22-2023 10:00-0500 Body mass index (BMI) [Ratio] 28.67 kg/m2 Timo Ball Other [facility] Other 11-22-2023 10:00-0500 Body weight 95.89 kg Timo Ball Other [facility] Other 11-22-2023 10:00-0500 Body weight 95.88 kg [facility] 11-22-2023 10:00-0500 Diastolic blood pressure 64 mm[Hg] Timo Ball Other [facility] 11-22-2023 10:00-0500 Respiratory rate 16 /min Timo Ball Other [facility] Other 11-22-2023 10:00-0500 SaO2% (BldA) [Mass fraction] 95 % Timo Ball Other [employer] Other 11-22-2023 10:00-0500 Systolic blood pressure 102 mm[Hg] Timo Ball Other [facility] 10-03-2023 13:45-0500 Body height 182.88 cm Timo Ball Other [employer] Other 10-03-2023 13:45-0500 Body mass index (BMI) [Ratio] 29.02 kg/m2 Timo Ball Other [employer] Other 10-03-2023 13:45-0500 Body weight 97.07 kg Timo Ball Other [employer] Other 10-03-2023 13:45-0500 Diastolic blood pressure 67 mm[Hg] Timo Ball Other [employer] Other 10-03-2023 13:45-0500 Respiratory rate 16 /min Timo Ball Other [employer] Other 10-03-2023 13:45-0500 Systolic blood pressure 106 mm[Hg] Timo Ball Other [employer] Other 09-29-2023 13:45-0400 Body height 182.88 cm Timo Ball Other [employer] Other 08-31-2023 11:00-0400 Body height 182.88 cm Timo Ball Other [employer] Other 08-31-2023 11:00-0400 Body mass index (BMI) [Ratio] 28.23 kg/m2 Timo Ball Other [employer] Other 08-31-2023 11:00-0400 Body weight 94.44 kg Timo Ball Other [employer] Other 08-31-2023 11:00-0400 Diastolic blood pressure 61 mm[Hg] Timo Ball Other [employer] Other 08-31-2023 11:00-0400 Respiratory rate 12 /min Timo Ball Other [employer] Other 08-31-2023 11:00-0400 Systolic blood pressure 105 mm[Hg] Timo Ball Other [employer] Other 05-26-2023 11:00-0400 Body height 182.88 cm Timo Ball Other [employer] Other 05-26-2023 11:00-0400 Body mass index (BMI) [Ratio] 28.69 kg/m2 Timo Ball Other [employer] Other 05-26-2023 11:00-0400 Body weight 95.98 kg Timo Ball Other [employer] Other 05-26-2023 11:00-0400 Diastolic blood pressure 66 mm[Hg] Timo Ball Other [employer] Other 05-26-2023 11:00-0400 Respiratory rate 16 /min Timo Ball Other [employer] Other 05-26-2023 11:00-0400 Systolic blood pressure 116 mm[Hg] Timo Ball Other [employer] Other 01-20-2023 11:00-0500 Body height 182.88 cm Timo Ball Other [employer] Other 01-20-2023 11:00-0500 Body mass index (BMI) [Ratio] 28.53 kg/m2 Timo Ball Other [facility] Other 01-20-2023 11:00-0500 Body weight 95.44 kg Timo Ball Other [facility] Other 01-20-2023 11:00-0500 Diastolic blood pressure 64 mm[Hg] Timo Ball Other [facility] Other 01-20-2023 11:00-0500 Respiratory rate 16 /min Timo Ball Other [facility] Other 01-20-2023 11:00-0500 Systolic blood pressure 102 mm[Hg] Timo Ball Other [facility] Other 09-21-2022 12:18-0400 Blood Pressure Location MARYBETH KENNETH [facility] 09-21-2022 12:18-0400 Diastolic blood pressure 58 mm[Hg] MARYBETH KENNETH [facility] 09-21-2022 12:18-0400 Heart rate 80 /min MARYBETH KENNETH [facility] 09-21-2022 12:18-0400 Respiratory rate 16 /min MARYBETH KENNETH [facility] 09-21-2022 12:18-0400 Systolic blood pressure 111 mm[Hg] MARYBETH KENNETH [facility] 03-16-2022 08:49-0400 Blood Pressure Location MARYBETH KENNETH [facility] 03-16-2022 08:49-0400 Diastolic blood pressure 65 mm[Hg] MARYBETH STANLEY [facility] 03-16-2022 08:49-0400 Heart rate 75 /min [facility]ETH STANLEY [facility] 03-16-2022 08:49-0400 Systolic blood pressure 93 mm[Hg] MARYBETH STANLEY [facility] Encounters Encounter Date Encounter Type Care Provider Facility Start: 09-19-2024 End: 09-19-2024 ambulatory [facility] Work Phone: Start: 09-19-2024 End: 09-19-2024 Patient encounter procedure [facility] Physician [facility] Nephrology Wilian Work Phone: Start: 09-10-2024 Non-patient / Non-visit [facility]ician [facility] Work Phone: Start: 08-06-2024 End: 08-06-2024 ambulatory [facility] Start: 08-01-2024 Non-patient / Non-visit [facility] Physician [facility] Work Phone: Start: 07-16-2024 End: 07-16-2024 Patient encounter procedure [facility] Work Phone: Start: 06-26-2024 End: 06-26-2024 ambulatory [facility] Start: 06-26-2024 Non-patient / Non-visit [facility] Physician [facility] Work Phone: Start: 03-22-2024 End: 03-22-2024 ambulatory [facility] Start: 02-22-2024 End: 02-22-2024 ambulatory JUAN LUIS CALVIN [facility] Start: 02-07-2024 End: 02-07-2024 ambulatory Martha Meier Facility:[facility] Start: 01-26-2024 End: 01-26-2024 ambulatory VENECIA FLOWERS [facility] Start: 01-16-2024 End: 01-16-2024 ambulatory [facility] Work Phone: Start: 01-16-2024 End: 01-16-2024 Patient encounter procedure [facility] Physician [facility] Work Phone: Start: 01-12-2024 Non-patient / Non-visit [facility] Physician [facility] Work Phone: Start: 01-11-2024 Non-patient / Non-visit [facility] Physician [facility] Work Phone: Start: 01-10-2024 Non-patient / Non-visit [facility] Physician [facility] Work Phone: Start: 01-09-2024 Non-patient / Non-visit [facility] Physician [facility] Work Phone: Start: 01-08-2024 Non-patient / Non-visit [facility] Physician [facility] Work Phone: Start: 01-01-2024 End: 01-01-2024 ambulatory MARGARITA [facility] Start: 12-29-2023 End: 12-29-2023 ambulatory Timo Francis Other [employer] Other Start: 12-29-2023 Telephone encounter Timo DIEGO [facility] Start: 12-26-2023 End: 12-26-2023 ambulatory EDDIE WEISS Not Available Start: 12-20-2023 End: 12-20-2023 ambulatory Timo Francis Other [employer] Other Start: 12-20-2023 [facility]phone encounter [facility] Start: 12-15-2023 End: 12-15-2023 ambulatory Timo Francis Other [employer] Other Start: 12-15-2023 Telephone encounter [facility] Start: 12-11-2023 End: 12-11-2023 ambulatory Timo Francis Other [employer] Other Start: 12-11-2023 Telephone encounter [facility] Start: 12-08-2023 End: 12-08-2023 Patient encounter procedure [facility] Work Phone: Start: 12-05-2023 End: 12-05-2023 ambulatory Timo Francis Other [employer] Other Start: 12-05-2023 Telephone encounter [facility] Start: 11-22-2023 End: 11-22-2023 ambulatory Timo Francis Other [employer] Other Start: 11-22-2023 Telephone encounter [facility] Start: 11-22-2023 Transitional care [facility] 14 day discharge [facility] Start: 11-22-2023 End: 11-22-2023 Patient encounter procedure [facility] Physician [facility] Work Phone: Start: 11-17-2023 End: 11-17-2023 ambulatory Timo Francis Other [employer] Other Start: 11-17-2023 Telephone encounter [facility] Start: 10-04-2023 End: 10-04-2023 ambulatory Timo Francis Other [employer] Other Start: 10-04-2023 Telephone encounter Timo [facility] Start: 10-03-2023 End: 10-03-2023 ambulatory Timo Francis Other [employer] Other Start: 10-03-2023 Office outpatient vi sit 15 minutes Timo Francis [facility] Start: 09-29-2023 End: 09-29-2023 ambulatory Timo Francis Other [employer] Other Start: 09-29-2023 Nursing evaluation o f patient and report Timo Francis [facility] Start: 09-06-2023 End: 09-06-2023 ambulatory Timo Francis Other [employer] Other Start: 09-06-2023 Telephone encounter Timo Francis [facility] Start: 08-31-2023 End: 08-31-2023 ambulatory Timo Francis Other [employer] Other Start: 08-31-2023 Patient encounter procedure Timo Francis [facility] Start: 05-26-2023 End: 05-26-2023 ambulatory Timo Francis Other [employer] Other Start: 05-26-2023 Office outpatient vi sit 25 minutes Timo Penny [facility] Start: 01-20-2023 End: 01-20-2023 ambulatory Timo Penny Other [employer] Other Start: 01-20-2023 Office outpatient vi sit 25 minutes Timo Francis [facility] Start: 09-21-2022 End: 09-22-2022 ambulatory MARYBETH STANLEY Facility:[facility] Start: 09-21-2022 End: 09-21-2022 Patient encounter procedure MARYBETH STANLEY [facility] Start: 09-06-2022 End: 09-07-[address] TIMO FRANCIS Facility:[facility] Start: 08-14-2022 End: 08-15-[address] TIMO FRANCIS Facility:[facility] Start: 08-03-2022 End: 08-04-[address] TIMO FRANCIS Facility:[facility] Start: 07-08-2022 End: 07-09-[address] TIMO FRANCIS Facility:[facility] Start: 03-16-2022 End: 03-17-2022 ambulatory MARYBETH STANLEY Facility:[facility] Start: 03-16-2022 End: 03-16-2022 Patient encounter procedure MARYBETH MOTARY [facility] Start: 01-06-2022 End: 01-07-2022 ambulatory MARYBETHKOURTNEY STANLEY Facility:[facility] Start: 01-05-2022 ambulatory MARYBETH STANLEY Facility :[facility] Start: 12-07-2018 Patient encounter procedure Facility:[id number] Start: 12-06-2018 Patient encounter procedure Facility:[id number] Procedures Date Procedure Procedure Detail Performing Clinician Start: 01-08-2024 Blood Culture 1 Start: 01-08-2024 Blood Culture 2 Start: 07-08-[address] CURRIE [place] Comment on above: Performed By: #### U MICRO, ERUR #### [facility] [address] [place] [address] Dr. Kirk García Start: 07-28-2021 Cholecystectomy SHADIA STANLEY Start: 11-27-2006 Colonoscopy MARYBETH GRAVES Start: 11-27-2004 Implantation of radi oactive seed into prostate MARYBETH STANLEY Repair of right ingu inal hernia MARYBETH STANLEY Transrectal biopsy o f prostate using ultrasound guidance MARYBETH STANLEY Plan of Treatment Date Care Activity Detail Author Renal function 1999 panel - Serum or Plasma [facility] enter US Kidney - bilateral [facility] Immunizations Immunization Date Immunization Notes Care Provider Fa cilimelanie 09-29-2023 influenza, high dose seasonal, preservative-free Timo Francis Other [employer] Other 09-29-2023 influenza virus vaccine, unspecified formulation [facility] 09-07-2022 influenza virus vaccine, split virus (incl. purified surface antigen) Timo Francis Other [employer] Other 09-07-2022 influenza virus vaccine, unspecified formulation [facility] 04-26-2022 SARS-CoV-2 mRNA (srqcydrxnge-zphk-qotka se) vaccine MARYBETH KENNETH [facility] 09-02-2021 SARS-CoV-2 (COVID-19 ) mRNA BNT-162b2 vax MARYBETH KENNETH [facility] 08-18-2021 influenza virus vaccine, unspecified formulation MARYBETH KENNETH [facility] 08-13-2021 influenza virus vaccine, split virus (incl. purified surface antigen) Timo Francis Other [employer] Other 08-13-2021 influenza virus vaccine, unspecified formulation [facility] 02-23-2021 SARS-CoV-2 (COVID-19 ) mRNA BNT-162b2 vax MARYBETH KENNETH [facility] 02-03-2021 SARS-CoV-2 (COVID-19 ) mRNA BNT-162b2 vax MARYBETH KENNETH [facility] Comment on above: Result Comment: 2021: [id number] 01-25-2021 SARS-CoV-2 (COVID-19 ) mRNA BNT-162b2 vax MARYBETH KENNETH [facility] 08-31-2020 influenza virus vaccine, split virus (incl. purified surface antigen) Timo Penny Other [employer] Other 08-31-2020 influenza virus vaccine, unspecified formulation [facility] 08-30-2019 influenza virus vaccine, split virus (incl. purified surface antigen) Timo Penny Other [employer] Other 08-30-2019 influenza virus vaccine, unspecified formulation MARYBETH STANLEY [facility] 08-29-2018 influenza virus vaccine, split virus (incl. purified surface antigen) Timo Francis Other [facility] Other 08-29-2018 influenza virus vaccine, unspecified formulation MARYBETH STANLEY [facility] [facility] 08-03-2017 influenza virus vaccine, split virus (incl. purified surface antigen) Timo Penny Other [facility] [employer] Other 08-03-2017 influenza virus vaccine, unspecified formulation MARYBETH STANLEY [facility] 09-05-2016 influenza virus vaccine, split virus (incl. purified surface antigen) Timo Penny Other [facility] [employer] Other 09-05-2016 influenza virus vaccine, unspecified formulation MARYBETH STANLEY [facility] 10-16-2015 pneumococcal conjuga te vaccine, 13 valent Timo Penny Other [facility] 09-01-2015 influenza virus vaccine, split virus (incl. purified surface antigen) Timo Francis Other [facility] [employer] Other 09-01-2015 influenza virus vaccine, unspecified formulation [facility] 09-15-2014 tetanus and diphther ia toxoids, adsorbed, preservative free, for adult use (5 Lf of tetanus toxoid and 2 Lf of diphtheria toxoid) Timo Francis Other [facility] 08-27-2013 tetanus and diphther ia toxoids, adsorbed, preservative free, for adult use (5 Lf of tetanus toxoid and 2 Lf of diphtheria toxoid) Timo Francis Other [facility] 01-10-2007 pneumococcal polysaccharide vaccine, 23 valent Timo Francis Other [facility] 1999 pneumococcal polysaccharide vaccine, 23 valent MARYBETH STANLEY [facility] Payers Date Payer Category Payer Self-pay 2024 Unknown [id number] 2.16.8 [id number] 2023 Unknown [id number] 1959 Medicare [id number] 1959 Unknown [id number] 1934 Unknown [id number] 2.16. [id number] 1934 Unknown [id number] 2.16. [id number] 1934 Unknown [id number] 2.16.8 40.1.290209.3.579.2.727 1934 Unknown [id number] 2.16.8 40.1.455273.3.579.2.727 1934 Unknown [id number] 2.16.8 40.1.135730.3.579.2.727 1934 Unknown [id number] 2.16.8 40.1.890276.3.579.2.727 1934 Unknown [id number] 2.16.8 40.1.155887.3.579.2.727 1934 Unknown [id number] 2.16.84 0.1.458903.3.579.2.593 1934 Unknown [id number] 2.16.84 0.1.387513.3.579.2.593 1934 Unknown [id number] 2.16.84 0.1.698482.3.579.2.593 1934 Unknown [id number] 2.16.84 0.1.431218.3.579.2.593 1934 Unknown [id number] 2.16.84 0.1.755069.3.579.2.1259 Medicare [id number] Unknown [facility] Health Claims [id number] Unknown [id number] (STD) [id number] Unknown [id number] 2.16.8 [id number] Social History Date Type Detail Facility Start: 03-16-2022 End: 09-19-2024 Tobacco smoking status Never smoked tobacco (finding) [facility] Tobacco smoking status Never [facility] Sex Assigned At Male [facility] Start: 1935 Sex Assigned At Male F [facility] Functional Status Date Assessment Result Facility 09-21-2022 Functional Status N/A [facility] Clinical Notes 07-28-2021 to 06-26-2024 Note Date & Type Note Facility 06-26-2024 Note [place] [facility] - [facility] Subjective Smason Kelley is a 88 y.o. year old [...] dribbling Cholecystitis Gram-negative bacteremia Gross hematuria Hyperlipidemia [facility] current use of antithrombotics/antiplatelets Other specified postprocedural states Personal history of surgery to heart and great vessels, presenting hazards to health Post-void dribbling Psoriasis vulgaris Testicular mass Urinary frequency Urinary tract infection Urinary urgency Weak urinary stream Acute combined systolic and diastolic heart failure (CMS/HCC) No family history on file. Social History Tobacco Use Smoking status: Never Smokeless tobacco: Marianela Davies is seen in follow-up. He is [...] the surgery. Surgery was done at the [facility]. He is on chronic oxygen therapy. He was admitted to [facility] in January 2024 for decompensated heart failure. [...] wheezing or rales. 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 Abdominal: [...] present. Mental Stat (more content not included)... 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 Social History Tobacco Use Smoking status: Never Smokeless tobacco: Marianela Davies is seen in follow-up. He is [...] the surgery. Surgery was done at the [facility]. Most recently he was admitted to [facility] in January 2024 for decompensated heart failure. [...] wheezing or rales. 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 Abdominal: [...] deficit present. Menta (more content not included)... [facility] 02-22-2024 Note Cardiovascular Medic [facility] SUBJECTIVE Chief Complaint Patient presents with Hospital Follow-up Congestive Heart Failure HPI Smason Kelley is a 88 y.o. male here for follow-up. His neighbor Peggy accompanied him who helps with his transportation and medications. 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 Neurological (more content not included)... [facility] 02-22-2024 Note Patient here for [facility]. He was switched from Lasix [...] other systems reviewed and are negative. [facility] 01-26-2024 Note CAMERON clip 2017 No anticoagulation with CAMERON clip Continue toprol and digoxin- rate is controlled in office [facility] 01-26-2024 Note Will monitor with ro utine echocardiograms. [facility] 01-26-2024 Note Continue diuresis wi th lasix bid for next 2-3 days and then resume daily dose. [facility] 01-26-2024 Note Hypertension is stab le Well controlled 100/60 Continue all meds [facility] 01-26-2024 Note [facility] III Continue GDMT- ASA, digoxin, lisinopril, toprol with midodrine. Diuretic therapy- lasix 40 mg daily with bid as needed for fluid overload. Asked pt to continue lasix bid for next 2-3 days Sent pt to lab for BMP Monitor daily weights, I&O, fluid restriction 1.5-2L/day, renal function and electrolytes- please maintain K+>4 and Mg > 2 [facility] 01-26-2024 Note [facility] CARDIOLOGY PROGR ESS NOTE [place] [facility] HPI: Samson Kelley is a 88 y.o. male here for hospital F/U at [facility] HPI 88 y.o. 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 He was started on midodrine and thyroid [...] Normal trile (more content not included)... [facility] 01-26-2024 Note Patient here for [facility]. He was started on midodrine and thyroid medication. .Review of Systems Eyes: Positive for vision loss in left eye and vision loss in right eye. Cardiovascular: Positive for dyspnea on exertion and leg swelling. Respiratory: Positive for shortness of breath. Hematologic/Lymphatic: Bruises/bleeds easily. All other systems reviewed and are negative. [facility] 01-01-2024 Note Patient here for 6 m o follow up and device check. He was admitted to [facility] in Oct 2023 and was seen by [...] other systems reviewed and are negative. [facility] 01-01-2024 Note [place] Electrophysiology Consult Note Reason for visit: HPI: [...] noted some increase in SOB/POWELL 04/17/23 jonah SUPPLY SPECIALIST HPI Samson Kelley is a 87 [...] Cardiovascular Ra (more content not included)... [facility] 12-29-2023 Evaluation note Encounter Date Diagnosis Assessment Notes Dec, Anemia (ICD-10 - D64.9) [employer] Other 01-03-2024 NoteThis report has been cancelled. [facility]01-03-2024 NoteThis report has been cancelled.[facility]01-03-2024 NoteThis report has been cancelled.[facility]01-03-2024 NoteThis report has been cancelled.[facility]01-03-2024 NoteThis report has been cancelled.[facility]01-03-2024 NoteThis report has been cancelled.[facility]01-03-2024 NoteThis report has been cancelled.[facility]12-27-2023 Evaluation note* Encounter Date Diagnosis Assessment Notes [...] are maintaining regular scheduled appts with their environmental sampler. s/p LAAO procedure, off anticoagulation Oct, Pulmonary [...] I44.1) PM inserted PM checkups every 6months. [employer] Other 11-07-2023 Evaluation note* Encounter Date Diagnosis [...] continue exercise to achieve/maintain a normal BMI. [employer] Other 10-05-2023 Evaluation note* Encounter Date Diagnosis [...] are maintaining regular scheduled appts with their environmental sampler. No bleeding complications Aug, Chronic venous insufficiency [...] (ICD-10 - Z79.899) Check labs: CBC, Dig [employer] Other 06-30-2023 Evaluation note* Encounter Date Diagnosis [...] are maintaining regular scheduled appts with their environmental sampler. No bleeding complications Apr, Chronic venous insufficiency (ICD-10 - I87.2) Avoid salt and elevate lower extremities, support stockings, inspect legs and feet daily for blisters and ulcerations. Apr, Second degree heart block (ICD-10 - I44.1) PM inserted, routine PM checks w/ [facility] Apr, History of prostate cancer (ICD-10 - Z85.46) No s/s recurrence. No active treatment at this time. [employer] Other 02-24-2023 Evaluation note* Encounter Date Diagnosis [...] are maintaining regular scheduled appts with their environmental sampler. 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 Are -German. Are obese. Have a family history of [...] cells. Follow these instructions at home: Take aink-qsg-jrkfomc and prescription medicines only as told by [...] 11/13/2006 Document Revised: 10/26/2018 Document Reviewed: 07/24/2017 [employer] Patient Education 2020 Smart Devices. Follow Up Care 03/16/2022 09:37:24 With:MARYBETH STANLEY PA-C, URL Address: [address] [place] [address] [phone] When: only if needed [facility] 04-20-2022 Hospital Discharge instructions Patient [...] who: Are older than age 65. Are -German. Are obese. Have a family history of [...] cells. Follow these instructions at home: Take subd-yoc-iphrfcz and prescription medicines only as told by [...] 11/13/2006 Document Revised: 10/26/2018 Document Reviewed: 07/24/2017 [employer] Patient Education 2020 Smart Devices. Follow Up Care 01/28/2022 16:02:47 With:MARYBETH STANLEY PA-C, URL Address: [address] [place] [address]. [place] [address] Business (1) When:6 months [facility] 09-21-2021 NoteHNO ID: [id number] Author: Jewel Cary III, MD Service: ? Author Type: Physician Type: Progress Notes Filed: 08/17/2021 9:33 AM Note Text: This patient is post op from laparoscopic cholecystectomy. He has had no symptoms. P.E. The wounds are healing well without evidence of infection. I reviewed the pathology report with Samson. Assessment Satisfactory course Plan: Return to office PRN. Jewel Cary III, [facility]09-01-2021 NoteHNO ID: [id number] Author: Jaspal Phipps APRN.AUTOMOTIVE SALES ASSOCIATE Service: Anesthesiology Author Type: Nurse Car Sales Representative Type: Anesthesia Procedure Notes Filed: 07/28/2021 10:50 AM Note Text: ANESTHESIOLOGY PROCEDURE NOTE [employer] General Information Procedure Start Time/Medication Administration: 07/28/2021 10:40 AM Patient location during procedure: OR Patient identity confirmed: arm band and patient Staffing Anesthesiologist: Ramiro Esquivel MD AUTOMOTIVE SALES ASSOCIATE: Jaspal Phipps APRN.AUTOMOTIVE SALES ASSOCIATE Performed by: AUTOMOTIVE SALES ASSOCIATE Indications and Patient Condition Preoxygenated: yes Patient [...] to 7.0 ETT-no difficulty. SIGNATURE: Jaspal Phipps APRN.AUTOMOTIVE SALES ASSOCIATE PATIENT NAME: Samson Kelley DATE: July 28, 2021 TIME: 10:48 AM CSN: [id number] [facility] + [facility] note Future Appointments Appointment Date:09/21/2022 10:00:00 AM Scheduled Provider:MARYBETH STANLEY PA-C Location:[facility] Appointment Type:URO Office Visit [facility] evaluation noteNo [employer] Other Evaluation note* Diagnosis Onset Date Resolution Status Chronic venous insufficiency of lower extremity acute CKD (chronic kidney disease) stage 3, GFR 30-59 ml/min acute HFrEF (heart failure with reduced ejection fraction) acute Hypoxia acute Mobitz (type) II atrioventricular block acute Pancytopenia acute Subclinical hypothyroidism a [facility] Work Phone: Evaluation note* Diagnosis Onset Date Resolution Status Acute on chronic HFrEF (hear t failure with reduced ejection fraction) acute Chronic venous insufficiency acute Nonischemic dilated cardiomyopathy acute Pancytopenia acute Paroxysmal atrial fibrillation acute Stage 3b chronic kidney disease acute Subclinical hypothyroidism a cute Nonischemic dilated cardiomyopathy acute Pulmonary hypertension acute Stage 3b chronic kidney disease [facility] Work Phone: History general Narrative - Reported* [...] GALLBLADDER 11/2029 Hospitalization History see surgical history [employer] Other History general Narrative - Reported* Type [...] 20 16 Hospitalization History see surgical history [employer] Other Hospital course Narrative No data available for this section [facility] [employer] progress note No data available for this section [facility] [employer] Summary Purpose Family History Relationship Condition Age at Onset Recorded Date/T jabier father Unknown Not Specified Unknown Relationship Condition Age at Onset Recorded Date/T jabier father Unknown mother Unknown Advance Directives Advance Directive Response Recorded Date/ Time Advance Directives No January 04, 2024 12:18pm Advance Directive Response Recorded Date/ Time Advance Directives No January 04, 2024 1:18pm Chief Complaint and Reason for Visit Chief Complaint h Tb Follow-Up [facility] d/c 01/12 Reason for Visit Chronic venous insuf ficiency of lower extremity CKD (chronic kidney disease) stage 3, GFR 30-59 ml/min HFrEF (heart failure with reduced ejection fraction) Hypoxia Mobitz (type) II atrioventricular block Pancytopenia Subclinical hypothyroidism Chief Complaint 3 month follow up RENAL CKD Reason for Visit Acute on chronic HFr EF (heart failure with reduced ejection fraction) Chronic venous insufficiency Nonischemic dilated cardiomyopathy Pancytopenia Paroxysmal atrial fibrillation Stage 3b chronic kidney disease Subclinical hypothyroidism Nonischemic dilated cardiomyopathy Pulmonary hypertension Stage 3b chronic kidney disease Additional Source Comments (unrecognized sect ion and content) No Status Records FoundNo Status Records FoundNo Status Records FoundNo Status Records FoundNo Status Records FoundNo Status Records FoundNo Status Records FoundNo Status Records FoundNo Status Records FoundNo Status Records Found INFORMATION SOURCE (unrecogn ized section and content) DATE CREATED AUTHOR 12/17/2018 [facility] DATE CREATED AUTHOR AUTHOR'S ORGANIZ ATION 07/31/2021 [facility] DATE CREATED AUTHOR AUTHOR'S ORGANIZ ATION 07/31/2021 [facility] DATE CREATED AUTHOR AUTHOR'S ORGANIZ ATION 12/24/2021 [facility] DATE CREATED AUTHOR AUTHOR'S ORGANIZ ATION 12/26/2021 [facility] DATE CREATED AUTHOR AUTHOR'S ORGANIZ ATION 09/22/2022 [facility] DATE CREATED AUTHOR AUTHOR'S ORGANIZ ATION 10/05/2022 [facility] [place] [facility] DATE CREATED AUTHOR AUTHOR'S ORGANIZ ATION 12/27/2023 [facility] EPIC DATE CREATED AUTHOR AUTHOR'S ORGANIZ ATION 08/02/2024 [facility] DATE CREATED AUTHOR AUTHOR'S ORGANIZ ATION 08/21/2024 [facility] Patient Care team informatio n (unrecognized section and content) Team Status: Active Member Role Status Dates Timo Francis DO Primary Care Provider Active Team Status: Active Member Role Status Dates Timo Francis DO Primary Care Provider Active Start: June 26, 2024 Rossi Orosco MD Attending Provider Active Start: June 26, 2024 Team Status: Inactive Member Role Status Dates Timo Francis DO Primary Care Provide r, Attending Provider Active Start: July 16, 2024 End: July 16, 2024 Team Status: Active Member Role Status Dates Timo Francis DO Primary Care Provider Active Start: August 01, 2024 Rossi Orosco MD Attending Provider Active Start: August 01, 2024 Team Status: Active Member Role Status Bernabe Francis DO Primary Care Provider Active Start: September 10, 2024 Martha Meier MD Attending Provider Active St art: September 10, 2024 Team Status: Inactive Member Role Status Bernabe Francis DO Primary Care Provider Active Start: September 19, 2024 End: September 19, 2024 Negro Lizarraga MD Attending Provider Active Start : September 19, 2024 End: September 19, 2024 Team Status: Active Member Role Status Bernabe Francis , DO Primary Care Provider Active Team Status: Inactive Member Role Status Bernabe Francis , DO Attending Provider Active Sta rt: November 22, 2023 End: November 22, 2023 Team Status: Inactive Member Role Status Bernabe Francis DO Attending Provider Active Sta rt: December 08, 2023 End: December 08, 2023 Team Status: Active Member Role Status Bernabe Francis DO Primary Care Provide r, Attending Provider Active Start: January 08, 2024 Team Status: Active Member Role Status Bernabe Francis DO Primary Care Provide r, Attending Provider Active Start: January 09, 2024 Team Status: Active Member Role Status Bernabe Francis DO Primary Care Provide r, Attending Provider Active Start: January 10, 2024 Team Status: Active Member Role Status Bernabe Francis DO Primary Care Provide r, Attending Provider Active Start: January 11, 2024 Team Status: Active Member Role Status Bernabe Francis DO Primary Care Provide r, Attending Provider Active Start: January 12, 2024 Team Status: Inactive Member Role Status Bernabe Francis DO Primary Care Provide r, Attending Provider Active Start: January 16, 2024 End: January 16, 2024 Team Status: Active Member Role Status Bernabe Francis DO Primary Care Provider Active Start: June 26, 2024 Rossi Orosco MD Attending Provider Active Start: June 26, 2024 Team Status: Inactive Member Role Status Bernabe Francis DO Primary Care Provide r, Attending Provider Active Start: July 16, 2024 End: July 16, 2024 Team Status: Active Member Role Status Bernabe Francis DO Primary Care Provider Active Start: August 01, 2024 Rossi Orosco MD Attending Provider Active Start: August 01, 2024 Team Status: Active Member Role Status Bernabe Frnacis DO Primary Care Provider Active Start: September 10, 2024 Martha Meier MD Attending Provider Active St art: September 10, 2024 Team Status: Inactive Member Role Status Dates Timo Francis DO Primary Care Provider Active Start: September 19, 2024 End: September 19, 2024 Negro Lizarraga MD Attending Provider Active Start : September 19, 2024 End: September 19, 2024 REASON FOR VISIT (unrecogniz ed section and content) 6 MONTH FOLLOW UP4 MONTH FOL LOW UPWellnessLab resultsflu shotankle/foot swellingRefillTCMFR HHTBHMedication PriceTCMBlood PressuresBP readingsweight concernRepeat Labs Goals [...] BE BASED ON THE PRIMARY CLINICAL RECORDS. [facility] [employer] [facility]. provides no warranty or guarantee of the accuracy or completeness of information in this document.
== END 2024-09-25 09:39 | disposition home or self-care (01) ==
LOC: US 09:38
PROVIDERS: PCP Internal Medicine; Visit Provider Internal Medicine
DX: N18.32 Chronic kidney disease, stage 3b (principal); I27.20 Pulmonary hypertension, unspecified; I42.0 Dilated cardiomyopathy
CPT/HCPCS: 76775

== ENCOUNTER 2024-10-28 10:05 | Outpatient (OUT) | payer MEDICARE, OTHER, SELFPAY ==
[2024-10-28 11:10] LABS: Bilirubin Urine NEGATIVE (NEGATIVE); Blood Urine NEGATIVE (NEGATIVE); Clarity Urine CLEAR (CLEAR); Color Urine DK. YELLOW (YELLOW); Glucose Urine UA NEGATIVE (NEGATIVE); Ketones Urine NEGATIVE (NEGATIVE); Leukocyte Esterase Urine NEGATIVE (NEGATIVE); Nitrite Urine NEGATIVE (NEGATIVE); Protein Urine TRACE mg/dL (NEG/TRACE); pH Urine 6.5 (5.0-9.0)
[2024-10-28 11:17] LABS: Bacteria Urine TRACE #/HPF (NONE SEEN); Cast Seen? NONE SEEN #/LPF (NONE SEEN); Crystals Seen? None Seen #/HPF (None Seen); Mucus Urine NONE SEEN (NONE SEEN); RBC Urine 0-2 #/HPF (0-2); Squamous Epithelial Cell Urine FEW #/LPF (NONE/RARE); Urine Culture Indicated NO; WBC Urine NONE SEEN #/HPF (NONE SEEN)
[2024-10-28 11:32] LABS: Creatinine Urine Random 117.58 mg/dL (20.00-300.00); Protein Creatinine Ratio Urine 0.18; Total Protein Urine Random 21.7 mg/dL (<=11.9)
[2024-10-28 12:03] LABS: Albumin Level 3.3 g/dL (3.4-5.0); Anion Gap 15.6; BUN Creatinine Ratio 26.7; Calcium 9.8 mg/dL (8.5-10.1); Carbon Dioxide 28.8 mmol/L (21.0-32.0); Chloride 100 mmol/L (98-107); Estimated GFR (African America 33 (>=60 mL/min/1.73m^2); Estimated GFR (Non-African Ame 28 (>=60 mL/min/1.73m^2); Glucose 117 mg/dL (74-106); Magnesium 2.6 mg/dL (1.8-2.4); Phosphorus 4.3 mg/dL (2.6-4.7); Potassium 4.4 mmol/L (3.5-5.1); Sodium 140 mmol/L (136-145); Uric Acid 9.3 mg/dL (3.5-7.2)
[2024-10-29 07:08] LABS: Vitamin D, 25-Hydroxy 54.9 ng/mL (30.0-100.0)
[2024-10-29 11:09] LABS: PTH, Intact 62 pg/mL (15-65)
== END 2024-10-28 10:06 | disposition home or self-care (01) ==
LOC: LAB 10:09
PROVIDERS: PCP Internal Medicine; Visit Provider Internal Medicine
DX: D64.9 Anemia, unspecified (principal); D69.6 Thrombocytopenia, unspecified; D61.818 Other pancytopenia; N18.32 Chronic kidney disease, stage 3b; I27.20 Pulmonary hypertension, unspecified; I42.0 Dilated cardiomyopathy; N18.9 Chronic kidney disease, unspecified; D63.1 Anemia in chronic kidney disease
CPT/HCPCS: 36415; 80069; 81001; 82306; 82570; 83735; 83970; 84156; 84550; 85025

== ENCOUNTER 2024-10-28 10:18 | Outpatient (OUT) | payer MEDICARE, OTHER, SELFPAY ==
[2024-10-28 10:44] LABS: Basophils Percent Auto 0.5 % (0.2-2.0); Eosinophils Absolute Auto 0.1 10^3/uL (0.0-0.7); Eosinophils Percent Auto 1.2 % (0.9-7.0); Hematocrit 31.7 % (42.0-54.0); Hemoglobin 10.3 g/dL (14.0-18.0); Immature Granulocytes Abs Auto 0.01 10^3/uL (0.00-0.03); Immature Granulocytes Pct Auto 0.2 % (0.0-0.5); Lymphocytes Absolute Auto 0.8 10^3/uL (1.2-3.8); Lymphocytes Percent Auto 18.9 % (20.5-60.0); Mean Corpuscular HGB Conc 32.5 g/dL (29.9-35.2); Mean Corpuscular Hemoglobin 35.2 pg (25.9-34.0); Mean Corpuscular Volume 108.2 fL (80.0-94.0); Mean Platelet Volume 10.3 fL (9.5-13.5); Monocytes Absolute Auto 0.8 10^3/uL (0.3-0.8); Monocytes Percent Auto 18.9 % (1.7-12.0); Neutrophils Absolute Auto 2.5 10^3/uL (1.4-6.5); Neutrophils Percent Auto 60.3 % (43.0-75.0); Platelet Count 101 10^3/uL (150-450); Red Blood Count 2.93 10^6/uL (4.70-6.10); Red Cell Distribution Width 15.5 % (11.0-15.0); White Blood Count 4.2 10^3/uL (4.0-11.0)
== END 2024-10-28 10:19 | disposition home or self-care (01) ==
LOC: LAB 10:20
PROVIDERS: PCP Internal Medicine; Visit Provider Internal Medicine Hematology & Oncology
DX: D64.9 Anemia, unspecified (principal); D69.6 Thrombocytopenia, unspecified; D61.818 Other pancytopenia
CPT/HCPCS: 36415; 85025